=== PATIENT | female | born 1995 | race Caucasian/White ===

== ENCOUNTER 2024-09-18 12:43 | Outpatient (OUT) | payer BC, SELFPAY ==
--- OUTSIDE RECORDS SUMMARY | 2024-09-18 12:48 | XMS_ITS | Encounter Summary ---
Author Organization [facility] Address [address] [place] [address] Phone Care Team Providers Care Forensic Artist Name Role Phone Kami Olvera MD Primary Care Provider [phone] Encounter Details Date Type Department Care Team (Late st Contact Info) Description 11/28/2021 Orders Only [facility] [address] [place] [address] Conversion, Onbase Social History Tobacco Use Types Packs/Day Years Used Date Smoking Tobacco: Never Assessed Comments Unknown Sex and Gender Information Value Date Recorded Sex Assigned at Not on file Legal Sex Female 6:57 PM EST Gender Identity Not on file Sexual Orientation Not on file documented as of this encounter Plan of Treatment Scheduled Orders Name Type Priority Associated Diagnoses Orde r Schedule OUTSIDE LAB SCAN Lab Ordered: 11/28/2021 documented as of this encounter Visit Diagnoses Not on filedocumented in this encounter Care Teams Forensic Artist Relationship Specialty Start Date End Date Kami Olvera MD [address] [place] [address] PCP - General 03/20/99 documented as of this encounter
--- OUTSIDE RECORDS SUMMARY | 2024-09-18 12:48 | XMS_ITS | Clinical Summary ---
Author Organization [facility] Address [address] [place] [address] Phone Care Team Providers Care Asian Art Curator Name Role Phone Kami Olvera MD Primary Care Provider [phone] Social History Tobacco Use Types Packs/Day Years Used Date Smoking Tobacco: Never Assessed Comments Unknown Sex and Gender Information Value Date Recorded Sex Assigned at Not on file Legal Sex Female 6:57 PM EST Gender Identity Not on file Sexual Orientation Not on file Last Filed Vital Signs Vital Sign Reading Time Taken Comments Blood Pressure 110/70 08/26/2021 12:57 PM EDT Pulse 97 08/26/2021 12:56 PM EDT Temperature - - Respiratory Rate - - Oxygen Saturation - - Inhaled Oxygen Concentration - - Weight 69.9 kg (154 lb) 08/26/2021 12:56 PM EDT Height 170.2 cm (5' 7 ) 08/26/2021 12:56 PM EDT Body Mass Index 24.12 08/26/2021 12:56 PM EDT Plan of Treatment Health Maintenance Due Date Last Done Comments HIV Screening 1994 Lipid Panel 1994 Yearly Adult Physical 1995 COVID-19 Vaccine (#1) 1999 MMR Vaccines (1 of 1 - Standard series) 01/03/2011 Varicella Vaccines (2 of 2 - 13+ 2-dose series) 01/03/2011 12/06/2010 HPV Vaccines (3 - Risk 3-dos e series) 07/10/2011 03/10/2011, 12/06/2010 Hepatitis C Screening 01/02/2012 Hepatitis B Vaccines (1 of 3 - 19+ 3-dose series) 2013 Pneumococcal Vaccine: Pediatrics and At-Risk Adult Patients (1 of 2 - PCV) 2013 Zoster Vaccines (1 of 2) 2013 12/06/2010 Cervical Cancer Screening 2015 HPV/Cotest 2015 Pap Smear 2015 DTaP/Tdap/Td Vaccines (1 - Tdap) 01/02/2016 Influenza Vaccine (Season Ended) 2024 Meningococcal Vaccine Completed 12/06/2010 HIB Vaccines Aged Out No longer eligi ble based on patient's age to complete this topic Hepatitis A Vaccines Aged Out No long er eligible based on patient's age to complete this topic IPV Vaccines Aged Out No longer eligi ble based on patient's age to complete this topic Rotavirus Vaccines Aged Out No longer eligible based on patient's age to complete this topic Care Teams Asian Art Curator Relationship Specialty Start Date End Date Kami Olvera MD [address] [place] [id number] PCP - General 03/20/99
--- OUTSIDE RECORDS SUMMARY | 2024-09-18 12:49 | XMS_ITS | Clinical Summary ---
Author Organization [facility] Address [address] [place] [id number] Care Team Providers Care Aviation Ordnance Officer Name Role Phone Unavailable Primary Care Provider Unavailabl e Medications No known medications Active Problems No known active problems Social History Tobacco Use Types Packs/Day Years Used Date Smoking Tobacco: Never Assessed Comments Unknown Sex and Gender Information Value Date Recorded Sex Assigned at Not on file Legal Sex Female 10:06 AM EDT Gender Identity Not on file Sexual Orientation Not on file Plan of Treatment Health Maintenance Due Date Last Done Comments HEPATITIS C VIRUS SCREENING 1994 TETANUS 1994 HIV SCREENING DISCUSSION 2009 HEP B VACCINE (1 of 3 - 19+ 3-dose series) 2013 TDAP (ADULT) 2013 CERVICAL CANCER SCREENING DISCUSSION 2015 COVID-19 VACCINE (2023-2 5 season) 2023 INFLUENZA VACCINE (#1) 2024 HPV VACCINE Aged Out No longer eligi ble based on patient's age to complete this topic PNEUMOCOCCAL VACCINE SERIES Aged Out No longer eligible based on patient's age to complete this topic Insurance MMO
--- OUTSIDE RECORDS SUMMARY | 2024-09-18 12:49 | XMS_ITS | Clinical Summary ---
Author Organization [facility] Address [address] [place] [address] Care Team Providers Care Pond Worker Name Role Phone Devonte Kemp DO Primary Care Provider [phone] Allergies Active Allergy Reactions Criticality Noted Date Comments Diphenhydramine Hcl Unknown 10/31/2015 Medications topiramate (TOPAMAX) 100 MG tablet Take 100 mg by mouth 3 (three) times a day. Active BRINTELLIX 20 mg tablet Take 20 mg by mouth every morning. 2 08/13/2015 Active REXULTI 2 mg Tab Take 1 tablet by mouth every morning. 08/28/2015 Active modafinil (PROVIGIL) 200 MG tablet Take 200 mg by mouth every morning. 1 09/07/2015 Active Active Problems Problem Noted Date Diagnosed Date Conversion disorder with attacks or seizures Assessment & Plan (11/04/2015 2:55 PM EDT): Rule Out -Discussed mind/body connection at length which patient is somewhat open to. -Patient does endorse current stress and a trauma hx which places the patient at higher risk for conversion. -Strongly recommend continued outpatient counseling to develop positive coping skills. -Education and reassurance provided to patient and family Unspecified abnormal involuntary movements 10/31 Intractable migraine with status migrainosus Acute encephalopathy 11/01/2015 Major depressive disorder without psychotic feat ures 11/01/2015 Assessment & Plan (11/03/2015 1:50 PM EDT): By history -Denies current symptoms of depression including appetite/sleep disturbance, sadness, decreased motivation or suicidal ideation. -Patient has reported her medication inconsistently making treating her a challenge. -Has an outpatient psychiatrist, Dr. Rosales with whom she is already established. She should follow up as scheduled. -Came in on Duloxetine and Vortioxetine. These two medications should be avoided as the combination may increase risk of Serotonin Syndrome, SIADH, hyponatremia. Will DC Duloxetine at this time. Acute respiratory failure 10/31/2015 Family History Medical History Relation Comments Bipolar disorder Father Relation Status Comments Father Social History Tobacco Use Types Packs/Day Years Used Date Smoking Tobacco: Never Alcohol Use Standard Drinks/Week Comments No 0 (1 standard drink = 0.6 oz pur e alcohol) Comments No Sex and Gender Information Value Date Recorded Sex Assigned at Not on file Legal Sex Female 3:22 PM EDT Gender Identity Not on file Sexual Orientation Not on file Last Filed Vital Signs Vital Sign Reading Time Taken Comments Blood Pressure 110/68 11/12/2015 12:14 PM EDT Pulse 85 11/12/2015 12:14 PM EDT Temperature 36.8 C (98.2 F) 11/12/2015 12:14 PM EDT Respiratory Rate 16 11/12/2015 2:30 PM EDT Oxygen Saturation 98% 11/12/2015 12:14 PM EDT Inhaled Oxygen Concentration - - Weight 79.8 kg (176 lb) 11/01/2015 3:59 AM EDT Height 170.2 cm (5' 7 ) 11/01/2015 3:59 AM EDT Body Mass Index 27.57 11/01/2015 3:59 AM EDT Plan of Treatment Health Maintenance Due Date Last Done Comments Tetanus: Every 10yrs 1994 Wellness Visit 1997 Depression Screening/Follow- Up (PHQ-2/9) 2006 HIV Screening 2009 Hepatitis C Screening 01/02/2012 Pap Smear 2015 COVID-19 Vaccine (2023-2 5 season) 2023 Cervical Cancer Screening 01/02/2024 HPV/Cotest 01/02/2024 Influenza Vaccine (#1) 2024 Pneumococcal Vaccine: Ped or At-Risk Aged Out No longer eligible b ased on patient's age to complete this topic Insurance [employer] P[employer] Advance Directives For more information, please contact: [phone] * Full Code - Unverified (Latest Code Status on File) Date Activated Date Inactivated Comments 10/31/2015 5:36 PM 11/12/2015 7:47 PM Care Teams Pond Worker Relationship Specialty Start Date End Date Devonte Kemp DO PCP - General Endocrinology/Metabolism 10/19/15
--- OUTSIDE RECORDS SUMMARY | 2024-09-18 12:49 | XMS_ITS | Encounter Summary ---
Author Organization [facility] Address [address] [place] [address] Phone Care Team Providers Care Rewinder Operator Helper Name Role Phone Kami Olvera MD Primary Care Provider [phone] Encounter Details Date Type Department Care Team (Late st Contact Info) Description 08/23/2021 Orders Only [facility] [address] [place] [address] Conversion, Onbase Social History Tobacco Use Types Packs/Day Years Used Date Smoking Tobacco: Never Assessed Comments Unknown Sex and Gender Information Value Date Recorded Sex Assigned at Not on file Legal Sex Female 6:57 PM EST Gender Identity Not on file Sexual Orientation Not on file documented as of this encounter Functional Status * Little interest or pleasure in doing things Answer Date of Assessment Author Not at all 08/26/2021 12:56 PM EDT Conversi on, [employer] documented as of this encounter Plan of Treatment Scheduled Orders Name Type Priority Associated Diagnoses Orde r Schedule OUTSIDE LAB SCAN Lab Ordered: 08/23/2021 documented as of this encounter Visit Diagnoses Not on filedocumented in this encounter Care Teams Rewinder Operator Helper Relationship Specialty Start Date End Date Kami Olvera MD [address] [place] [id number] PCP - General 03/20/99 documented as of this encounter
--- NOTE | 2024-09-18 13:00 | ECG_ITS ---
[facility] Test Date: 2024-09-18 Pat Name: SHIV SABILLON Department: Room: - Gender: Female Insurance Marketing Rep: : [id number] Requested By: BHAVNA YADAV Order Number: [id number] Amina MD: ROBERTA MONTALVO M.D. Measurements Intervals [place] Rate: 99 P: 71 OR: 170 QRS: 74 QRSD: 92 T: 51 QT: 354 QTc: 455 Interpretive Statements SINUS RHYTHM Normal ECG No previous ECG available for comparison Electronically Signed On 09-19-2024 18:22:05 EDT by ROBERTA MONTALVO M.D.
[2024-09-18 13:37] LABS: Hematocrit 36.9 % (36.0-48.0); Hemoglobin 12.9 g/dL (12.0-16.0); Immature Granulocytes Abs Auto 0.01 10^3/uL (0.00-0.03); Immature Granulocytes Pct Auto 0.1 % (0.0-0.5); Lymphocytes Absolute Auto 3.5 10^3/uL (1.2-3.8); Mean Corpuscular HGB Conc 35.0 g/dL (29.9-35.2); Mean Corpuscular Hemoglobin 28.9 pg (26.7-34.0); Mean Corpuscular Volume 82.7 fL (81.0-99.0); Platelet Count 267 10^3/uL (150-450); Red Blood Count 4.46 10^6/uL (4.20-5.40); White Blood Count 7.5 10^3/uL (4.0-11.0)
[2024-09-18 13:55] LABS: Anion Gap 16.5; Blood Urea Nitrogen 12.0 mg/dL (7.0-18.0); Calcium 8.7 mg/dL (8.5-10.1); Carbon Dioxide 26.8 mmol/L (21.0-32.0); Chloride 105 mmol/L (98-107); Estimated GFR (African America >60 (>=60 mL/min/1.73m^2); Estimated GFR (Non-African Ame >60 (>=60 mL/min/1.73m^2); Glucose 89 mg/dL (74-106); Potassium 3.3 mmol/L (3.5-5.1); Sodium 145 mmol/L (136-145)
== END 2024-09-18 12:44 | disposition home or self-care (01) ==
DX: Z01.812 Encounter for preprocedural laboratory examination (principal); Z01.818 Encounter for other preprocedural examination
CPT/HCPCS: 36415; 80048; 85025; 93005

== ENCOUNTER 2024-11-16 08:50 | Emergency (ER) | payer BC, SELFPAY ==
--- OUTSIDE RECORDS SUMMARY | 2024-11-13 16:02 | XMS_ITS | Continuity of Care Document ---
Author Organization [facility] Address Unknown Care Team Providers Care Talent Consultant Name Role Phone STEFANY SAM Primary Care Physician Encounter [facility] [id number] Date(s): 11/13/24 - 11/13/[address] [address] Encounter Diagnosis Abdominal pain(Discharge Diagnosis) - 11/13/24 Nausea(Discharge Diagnosis) - 11/13/24 Diarrhea(Discharge Diagnosis) - 11/13/24 Discharge Disposition: Home (Routine DC) Attending Physician: Dee Hall M.D. Encounter Type: Emergency Allergies, Adverse Reactions, Alerts Substance Criticality Severity Reaction Reaction Severity Status Benadryl Rash Active Assessment and Plan Extracted from: Title:ED Note Author:Rudy DE LA GARZA Student, Zhanna Simmons Date:11/13/24 Abdominal pain (R10.9: Unspecified abdominal pain) Diarrhea (R19.7: Diarrhea, unspecified) Nausea (R11.0: Nausea) Orders: Al hydroxide/Mg hydroxide/simethicone, 30 mL, Susp-Oral, Oral, Once, Stop date 11/13/24 14:46:00 EDT, STAT, Start date 11/13/24 14:46:00 EDT atropine/hyoscyamine/PB/scopolamine, 10 mL, Elixir, Oral, Once, Stop date 11/13/24 14:46:00 EDT, STAT, Start date 11/13/24 14:46:00 EDT dicyclomine, 10 mg = 1 cap(s), Oral, QID, X 10 day(s), # 40 cap(s), Refills(s) 0, Pharmacy: [facility]/pharmacy #[id number], 170, cm, 11/13/24 9:39:00 EDT, Height/Length Dosing, 62, kg, 11/13/24 9:39:00 EDT, Weight Dosing dicyclomine, 20 mg = 2 mL, Injection, IntraMuscular, Once, Stop date 11/13/24 13:43:00 EDT, STAT, Start date 11/13/24 13:43:00 EDT, 11/13/24 13:43:00 EDT fentanyl, 50 microgram = 1 mL, Injection, IV, Once, Stop date 11/13/24 15:28:00 EDT, STAT, Start date 11/13/24 15:28:00 EDT, 11/13/24 15:28:00 EDT fentanyl, 50 microgram = 1 mL, Injection, IV, Once, Stop date 11/13/24 13:42:00 EDT, STAT, Start date 11/13/24 13:42:00 EDT, 11/13/24 13:42:00 EDT fentanyl, 50 microgram = 1 mL, Injection, IV, Once, Stop date 11/13/24 12:23:00 EDT, STAT, Start date 11/13/24 12:23:00 EDT, 11/13/24 12:23:00 EDT HYDROmorphone, 1 mg = 1 mL, Injection, IV Push, Once, Stop date 11/13/24 11:43:00 EDT, STAT, Start date 11/13/24 11:43:00 EDT, 11/13/24 11:43:00 EDT HYDROmorphone, 0.5 mg = 0.5 mL, Injection, IV Push, Once, Stop date 11/13/24 10:59:00 EDT, STAT, Start date 11/13/24 10:59:00 EDT, 11/13/24 10:59:00 EDT lidocaine topical, 200 mg, 10 mL, Soln-Oral, Oral, Once, Stop date 11/13/24 14:46:00 EDT, STAT, Start date 11/13/24 14:46:00 EDT loperamide, 2 mg = 1 tab(s), Oral, q4hr, PRN for loose stool, X 7 day(s), # 12 tab(s), Refills(s) 0, Pharmacy: [facility]/pharmacy #[id number], 170, cm, 11/13/24 9:39:00 EDT, Height/Length Dosing, 62, kg, 11/13/24 9:39:00 EDT, Weight Dosing ondansetron, 4 mg = 2 mL, Injection, IV Push, Once, Stop date 11/13/24 15:28:00 EDT, STAT, Start date 11/13/24 15:28:00 EDT, 11/13/24 15:28:00 EDT ondansetron, 4 mg = 1 tab(s), Oral, q8hr, PRN Nausea/Vomiting, # 30 tab(s), Refills(s) 0, Pharmacy: [facility]/pharmacy #[id number], 170, cm, 11/13/24 9:39:00 EDT, Height/Length Dosing, 62, kg, 11/13/24 9:39:00 EDT, Weight Dosing ondansetron, 4 mg = 2 mL, Injection, IV Push, Once, Stop date 11/13/24 10:59:00 EDT, STAT, Start date 11/13/24 10:59:00 EDT, 11/13/24 10:59:00 EDT Sodium Chloride 0.9% intravenous solution, 1,000 mL, Soln-IV, IV, Once, Stop date 11/13/24 10:00:00 EDT, STAT, Start date 11/13/24 10:00:00 EDT, Infuse over 61, minute(s) Basic Metabolic Panel CBC w/ Auto Diff CT Abdomen/Pelvis w/ Contrast eGFR Hepatic Function Panel Lipase Level Saline Lock Insert U Beta Hcg Qual UA with Cult Rflx Medications Bentyl 10 mg Cap 10 mg = 1 cap(s), Oral, QID, X 10 day(s), # 40 cap(s), Refills(s) 0, Pharmacy: [facility]/pharmacy #[id number], 170, cm, 11/13/24 9:39:00 EDT, Height/Length Dosing, 62, kg, 11/13/24 9:39:00 EDT, Weight Dosing Start Date: 11/13/24 Stop Date: 11/23/24 Status: Ordered Quantity: 40.0 Unit: cap(s) Repeat number: 1 Immodium A-D 2 mg Tab 2 mg = 1 tab(s), Oral, q4hr, PRN for loose stool, X 7 day(s), # 12 tab(s), Refills(s) 0, Pharmacy: [facility]/pharmacy #[id number], 170, cm, 11/13/24 9:39:00 EDT, Height/Length Dosing, 62, kg, 11/13/24 9:39:00 EDT, Weight Dosing Start Date: 11/13/24 Stop Date: 11/20/24 Status: Ordered Quantity: 12.0 Unit: tab(s) Repeat number: 1 lidocaine Top 2% Gel 5 mL 0.1 gm, 5 mL, Topical, TID, 45 mL, Refill(s) 0, [facility]/pharmacy #[id number], 170.2, cm, 08/10/21 19:28:00 EDT, Height/Length Dosing, 68.5, kg, 08/10/21 19:28:00 EDT, Weight Dosing Start Date: 08/10/21 Stop Date: 08/13/21 Status: Ordered Quantity: 45.0 Unit: mL Repeat number: 1 Zofran ODT 4 mg Tab-Dis 4 mg = 1 tab(s), Oral, q8hr, # 10 tab(s), Refills(s) 0, Pharmacy: [facility]/pharmacy #[id number], 170, cm, 05/08/21 8:44:00 EST, Height/Length Dosing, 70, kg, 05/08/21 8:44:00 EST, Weight Dosing Start Date: 05/08/21 Status: Ordered Quantity: 10.0 Unit: tab(s) Repeat number: 1 Zofran ODT 4 mg Tab-Dis 4 mg = 1 tab(s), Oral, q8hr, PRN Nausea/Vomiting, # 30 tab(s), Refills(s) 0, Pharmacy: [facility]/pharmacy#[id number], 170, cm, 11/13/24 9:39:00 EDT, Height/Length Dosing, 62, kg, 11/13/24 9:39:00 EDT, Weight Dosing Start Date: 11/13/24 Status: Ordered Quantity: 30.0 Unit: tab(s) Repeat number: 1 Zofran ODT 4 mg Tab-Dis 4 mg = 1 tab(s), Oral, q8hr, # 10 tab(s), Refills(s) 0, Pharmacy: [facility]/pharmacy #[id number], 170, cm, 05/15/21 15:15:00 EST, Height/Length Dosing, 73, kg, 05/15/21 15:15:00 EST, Weight Dosing Start Date: 05/15/21 Status: Ordered Quantity: 10.0 Unit: tab(s) Repeat number: 1 Results Laboratory List Name Date U Beta Hcg Qual (Beta hCG Ql Urine) 11/13 Basic Metabolic Panel (BMP) 11/13/24 CBC w/ Auto Diff 11/13/24 Hepatic Function Panel 11/13/24 Lipase Level 11/13/24 UA with Cult Rflx 11/13/24 eGFR 11/13/24 Most recent to oldest [Reference Range]: 1 UA Bili [Negative mg/dL] Negative mg/dL (11/13/24 10:59 AM) UA Color [Yellow] Yellow 1 (11/13/24 10:59 AM) UA Glucose [Negative mg/dL] Negative mg/ dL (11/13/24 10:59 AM) UA Ketones [Negative mg/dL] 2+ mg/dL *ABN* (11/13/24 10:59 AM) UA Leuk Est [Negative Tino/uL] Negative L eu/uL (11/13/24 10:59 AM) UA Mucous [Negative graded/LPF] 4+ grade d/LPF *ABN* (11/13/24 10:59 AM) UA Nitrite [Negative mg/dL] Negative mg/ dL (11/13/24 10:59 AM) UA Protein [Negative mg/dL] Trace mg/dL *ABN* (11/13/24 10:59 AM) UA RBC [0-3 graded/HPF] 4-20 graded/HPF *ABN* (11/13/24 10:59 AM) UA Squam Epithelial 0-2 graded/HPF *NA* (11/13/24 10:59 AM) UA Urobilinogen [Negative mg/dL] Negativ e mg/dL (11/13/24 10:59 AM) UA WBC [0-5 graded/HPF] 0-5 graded/HPF (11/13/24 10:59 AM) UA Spec Desc Clean Catch (11/13/24 10:59 AM) UA Blood [Negative mg/dL] 1+ mg/dL *ABN* (11/13/24 10:59 AM) UA Clarity [Clear] Clear (11/13/24 10:59 AM) A/G Ratio [1.1-2.2] 1.9 (11/13/24 10:59 AM) BUN/Creat Ratio [10-20] 20 (11/13/24 10:59 AM) AGAP [6-16 mEq/L] 13 mEq/L (11/13/24 10:59 AM) Albumin Lvl [3.3-5.0 gm/dL] 5.0 gm/dL (11/13/24 10:59 AM) Alk Phos [21-98 Int._Unit/L] 67 Int._Uni t/L (11/13/24 10:59 AM) ALT [6-46 Int._Unit/L] 8 Int._Unit/L (11/13/24 10:59 AM) AST [5-43 Int._Unit/L] 14 Int._Unit/L (11/13/24 10:59 AM) Basophil Auto [0.0-2.0 %] 0.4 % (11/13/24 10:59 AM) Bili Direct [0.0-0.4 mg/dL] 0.1 mg/dL (11/13/24 10:59 AM) Bili Total [0.0-1.1 mg/dL] 0.7 mg/dL (11/13/24 10:59 AM) CO2 [21-31 mmol/L] 25 mmol/L (11/13/24 10:59 AM) Eos Auto [0.0-8.0 %] 0.1 % (11/13/24 10:59 AM) Glucose Lvl [55-199 mg/dL] 91 mg/dL (11/13/24 10:59 AM) Hct [34.0-46.0 %] 42.0 % (11/13/24 10:59 AM) Hgb [12.0-16.0 gm/dL] 14.4 gm/dL (11/13/24 10:59 AM) Lipase Lvl [13-58 unit/L] 19 unit/L (11/13/24 10:59 AM) Lymph Auto [14.0-50.0 %] 22.2 % (11/13/24 10:59 AM) RBC [4.3-5.9 E12/L] 5.2 E12/L (11/13/24 10:59 AM) RDW [10.9-14.2 %] 12.7 % (11/13/24 10:59 AM) Sodium Lvl [135-145 mmol/L] 140 mmol/L (11/13/24 10:59 AM) Total Protein [6.0-7.8 gm/dL] 7.7 gm/dL (11/13/24 10:59 AM) MCH [27.0-34.0 pg] 27.9 pg (11/13/24 10:59 AM) MCHC [31.4-36.0 gm/dL] 34.2 gm/dL (11/13/24 10:59 AM) MCV [80.0-100.0 fL] 81.7 fL (11/13/24 10:59 AM) [place] Auto [4.0-14.0 %] 5.6 % (11/13/24 10:59 AM) MPV [6.4-10.8 fL] 8.3 fL (11/13/24 10:59 AM) Neutro Auto [36.0-75.0 %] 71.7 % (11/13/24 10:59 AM) UA pH [5.0-9.0] 5.5 *NA* (11/13/24 10:59 AM) BUN [5-21 mg/dL] 14 mg/dL (11/13/24 10:59 AM) Calcium Lvl [8.9-11.1 mg/dL] 9.4 mg/dL (11/13/24 10:59 AM) Platelet [150.0-500.0 E9/L] 223.0 E9/L (11/13/24 10:59 AM) Potassium Lvl [3.5-5.3 mmol/L] 3.8 mmol/ L (11/13/24 10:59 AM) UA Spec Grav [1.005-1.030] 1.035 *NA* (11/13/24 10:59 AM) WBC [4.0-11.0 E9/L] 8.5 E9/L (11/13/24 10:59 AM) Chloride [101-111 mmol/L] 106 mmol/L (11/13/24 10:59 AM) Bili Indirect [0.1-0.9 mg/dL] 0.6 mg/dL (11/13/24 10:59 AM) [place] Absolute [0.2-1.0 E9/L] 0.5 E9/L (11/13/24 10:59 AM) Eos Absolute [0.0-0.5 E9/L] 0.0 E9/L (11/13/24 10:59 AM) Basophil Absolute [0.0-0.2 E9/L] 0.0 E9/ L (11/13/24 10:59 AM) Neutro Absolute [2.0-7.5 E9/L] 6.1 E9/L (11/13/24 10:59 AM) Lymph Absolute [1.0-4.0 E9/L] 1.9 E9/L (11/13/24 10:59 AM) eGFR [>=59 mL/min/1.73 m2] 119 mL/min/1. 73 m2 (11/13/24 10:59 AM) Globulin [1.4-4.0 gm/dL] 2.7 gm/dL (11/13/24 10:59 AM) Creatinine [0.5-1.3 mg/dL] 0.7 mg/dL (11/13/24 10:59 AM) U beta hCG Ql Negative (11/13/24 11:00 AM) 1Interpretive Data: Microscopic readings are only performed on those samples that meet specific criteria set forth by [facility]. Social History Social History Type Response Smoking Status Never (less than 100 in lifetime) entered on: 06/25/21 Sex Female Sex Representation Female (finding) 1pt denies Hospital Discharge Instructions Patient Education 11/13/2024 16:02:16 Diarrhea, Adult Diarrhea, Adult Diarrhea is frequent loose and sometimes watery bowel movements. Diarrhea can make you feel weak and cause you to become dehydrated. Dehydration is a condition in which there is not enough water or other fluids in the body. Dehydration can make you tired and thirsty, cause you to have a dry mouth, and decrease how often you urinate. Diarrhea typically lasts 2???3 days. However, it can last longer if it is a sign of something more serious. It is important to treat your diarrhea as told by your health care provider. Follow these instructions at home: Eating and drinking Follow these recommendations as told by your health care provider: ??? Take an oral rehydration solution (ORS). This is an emuq-emc-ufwdmca medicine that helps returnyour body to its normal balance of nutrients and water. It is found at pharmacies and retail stores. ??? Drink enough fluid to keep your urine pale yellow. ??? Drink fluids such as water, diluted fruit juice, and low-calorie sports drinks. You can drink milk also, if desired. Sucking on ice chips is another way to get fluids. ??? Avoid drinking fluids that contain a lot of sugar or caffeine, such as soda, energy drinks, andregular sports drinks. ??? Avoid alcohol. ??? Eat bland, zkjx-us-eggemp foods in small amounts as you are able. These foods include bananas, applesauce, rice, lean meats, toast, and crackers. ??? Avoid spicy or fatty foods. Medicines ??? Take tpzh-dek-iofpqqn and prescription medicines only as told by your health care provider. ??? If you were prescribed antibiotics, take them as told by your health care provider. Do not stopusing the antibiotic even if you start to feel better. General instructions ??? Wash your hands often using soap and water for at least 20 seconds. If soap and water are not available, use hand supervisor billposting. Others in the household should wash their hands as well. Hands should be washed: ??? After using the toilet or changing a diaper. ??? Before preparing, cooking, or serving food. ??? While caring for a sick person or while visiting someone in a hospital. ??? Rest at home while you recover. ??? Take a warm bath to relieve any burning or pain from frequent diarrhea episodes. ??? Watch your condition for any changes. Contact a health care provider if: ??? You have a fever. ??? Your diarrhea gets worse. ??? You have new symptoms. ??? You vomit every time you eat or drink. ??? You feel light-headed, dizzy, or have a headache. ??? You have muscle cramps. ??? You have signs of dehydration, such as: ??? Dark urine, very little urine, or no urine. ??? Cracked lips. ??? Dry mouth. ??? Sunken eyes. ??? Sleepiness. ??? Weakness. ??? You have bloody or black stools or stools that look like tar. ??? You have severe pain, cramping, or bloating in your abdomen. ??? Your skin feels cold and clammy. ??? You feel confused. Get help right away if: ??? You have chest pain or your heart is beating very quickly. ??? You have trouble breathing or you are breathing very quickly. ??? You feel extremely weak or you faint. These symptoms may be an emergency. Get help right away. Call 911. ??? Do not wait to see if the symptoms will go away. ??? Do not drive yourself to the hospital. This information is not intended to replace advice given to you by your health care provider. Make sure you discuss any questions you have with your health care provider. Document Revised: 08/23/2022 Document Reviewed: 08/23/2022 [employer] Patient Education ?? 2023 [employer]. 11/13/2024 16:02:16 Pain Without a Known Cause Pain Without a Known Cause Pain can occur in any part of the body and can range from mild to severe. Sometimes no cause can befound for pain. Some common types of pain that can occur without a known cause include: ??? Headache. ??? Back pain. ??? Abdominal pain. ??? Neck pain. Your health care provider may do tests to try to find the cause of your pain. If no cause is found,your health care provider will treat you for pain without a known cause. In some cases, your health care provider may do more tests, repeat tests that have already been done, and look further for a possible cause. Follow these instructions at home: Medicines ??? Take pukz-rsy-iuivmyt and prescription medicines only as told by your health care provider. ??? Ask your health care provider if the medicine prescribed to you: ??? Requires you to avoid driving or using machinery. ??? Can cause constipation. You may need to take these actions to prevent or treat constipation: ??? Drink enough fluid to keep your urine pale yellow. ??? Take yptc-imr-kyvqzex or prescription medicines. ??? Eat foods that are high in fiber, such as beans, whole grains, and fresh fruits and vegetables. ??? Limit foods that are high in fat and processed sugars, such as fried and sweet foods. Managing pain, stiffness, and swelling ??? If directed, put ice on the painful area. To do this: ??? Put ice in a plastic bag. ??? Place a towel between your skin and the bag. ??? Leave the ice on for 20 minutes, 2???3 times a day. ??? Remove the ice if your skin turns bright red. This is very important. If you cannot feel pain, heat, or cold, you have a greater risk of damage to the area. ??? If directed, apply heat to the affected area. Use the heat source that your health care provider recommends, such as a moist heat pack or a heating pad. ??? Place a towel between your skin and the heat source. ??? Leave the heat on for 20???30 minutes. ??? Remove the heat if your skin turns bright red. This is especially important if you are unable to feel pain, heat, or cold. You may have a greater risk of getting burned. General instructions ??? Stop any activities that cause pain. Rest as told by your health care provider during periods of severe pain. ??? Return to your normal activities as told by your health care provider. Ask your health care provider what activities are safe for you. ??? Exercise regularly. ??? Reduce your stress with activities such as yoga or meditation. Talk with your health care provider about other ways to reduce stress. ??? Eat a balanced diet that includes fruits and vegetables, whole grains, lean meat, and low-fat dairy. Talk with your health care provider if you have any questions about your diet. Contact a health care provider if: ??? You have continuing pain, and no reason can be found for it. ??? Your symptoms do not get better after treatment. Get help right away if: ??? Your pain is making you want to harm yourself. Get help right away if you feel like you may hurt yourself or others, or have thoughts about takingyour own life. Go to your nearest emergency room or: ??? Call 911. ??? Call the National Suicide Prevention Lifeline at or 926. This is open 24 hours aday. ??? Text the Crisis Text Line at 624378. Summary ??? Pain can occur in any part of the body and can range from mild to severe. ??? Your health care provider may do tests to try to find the cause of your pain. If no cause is found, your health care provider may diagnose you with pain without a known cause. ??? To help your pain, take medicines as told by your health care provider, apply ice or heat, exercise, reduce stress, and eat a healthy diet. This information is not intended to replace advice given to you by your health care provider. Make sure you discuss any questions you have with your health care provider. Document Revised: 11/03/2021 Document Reviewed: 11/03/2021 [employer] Patient Education ?? 2023 [employer]. 11/13/2024 16:02:16 Abdominal Pain, Adult, Coiv-yg-Papx Abdominal Pain, Adult Many things can cause belly (abdominal) pain. In most cases, belly pain is not a serious problem and can be watched and treated at home. But in some cases, it can be serious. Your doctor will try to find the cause of your belly pain. Follow these instructions at home: Medicines ??? Take iegu-xwq-ijiktmt and prescription medicines only as told by your doctor. ??? Do not take medicines that help you poop (laxatives) unless told by your doctor. General instructions ??? Watch your belly pain for any changes. Tell your doctor if the pain gets worse. ??? Drink enough fluid to keep your pee (urine) pale yellow. Contact a doctor if: ??? Your belly pain changes or gets worse. ??? You have very bad cramping or bloating in your belly. ??? You vomit. ??? Your pain gets worse with meals, after eating, or with certain foods. ??? You have trouble pooping or have watery poop for more than 2???3 days. ??? You are not hungry, or you lose weight without trying. ??? You have signs of not getting enough fluid or water (dehydration). These may include: ??? Dark pee, very little pee, or no pee. ??? Cracked lips or dry mouth. ??? Feeling sleepy or weak. ??? You have pain when you pee or poop. ??? Your belly pain wakes you up at night. ??? You have blood in your pee. ??? You have a fever. Get help right away if: ??? You cannot stop vomiting. ??? Your pain is only in one part of your belly, like on the right side. ??? You have bloody or black poop, or poop that looks like tar. ??? You have trouble breathing. ??? You have chest pain. These symptoms may be an emergency. Get help right away. Call 911. ??? Do not wait to see if the symptoms will go away. ??? Do not drive yourself to the hospital. This information is not intended to replace advice given to you by your health care provider. Make sure you discuss any questions you have with your health care provider. Document Revised: 12/21/2022 Document Reviewed: 12/21/2022 [employer] Patient Education ?? 2023 [employer]. Follow Up Care 11/13/2024 09:07:53 With:STEFANY SAM Address: [address] [place] [address], [address] [address] Business (1) When:11/16/2024 15:30:58 Comments:Call Dr for diagnosis based follow up Physician Emergency department Note * Chauncey Fuentes PA-C: MODIFY Yudith Cisneros: MODIFY, MODIFY Yudith Cisneros: MODIFY, PERFORM Yudith Cisneros: PERFORM, MODIFY Yudith Cisneros: MODIFY Event Display: ED Note-Physician Authored Date: [id number] Basic Information Time Seen: Chuancey Fuentes PA-C ??11/13/2024 09:33 Chief Complaint pt states diarrhea and abd pain x 3 days. has taken meds to stop the diarrhea but not getting better. has a hx of cancer that she has been in remission from but recently found a tumor in her neck 2 weeks ago. hodgkins lymphoma ws the past cancer. History of Present Illness A 29 yo female presents to the ED with diarrhea and abd pain x 3 days. PMH significant for Hodgkin's lymphoma and??pancreatitis. Surgical history significant for cholecystectomy and multiple other GI surgeries which she reported resulted in her having a PEG around 2019 and 6 stents placed in her GI tract.??She reports that she has not had any??GI issues for 2-3 years.??The patient had a??tumor found in her neck 2 weeks ago and she is set to??start treatments for that next week.??She reports that the abdominal pain and diarrhea started abruptly 3 days ago and has been getting worse since. She reports 8-9 episodes of diarrhea??a day.??The pain is located in the epigastric region and does not radiate, and the patient described it as stabbing . She also noted that the diarrhea has been getting darker in color, and is now a very dark brown . She denies??hematochezia or melena.??The patient??has also been having extreme sweats and some chills, but denies fevers. She has also??had some an orexia and weakness, but that has been chronic since her chemotherapy.??She has hydromorphone for chronic leg pain caused by her chemotherapy, however she has not used that or other pain medication for her stomach pain. She tried loperamide for the diarrhea, but stopped??taking it after two uses since it did not help.??LMP was 2 weeks ago and uncomplicated.??She denies being sexually active.??Sheis not on blood thinners.??The patient denies recent illness, sick contacts or travel. The patient also denies recent food??or medication changes??and drug/ alcohol use.??The patient denies back pain, chest pain,??nausea, vomiting, urinary symptoms, and bloating. Review of Systems No other aggravating or relieving factors no other associated symptoms no other prior treatments orcomplaints. ?? Family: Reviewed and noncontributory Social: lives at home ?? Review of systems negative unless otherwise specified in the HPI. Physical Exam Vitals & Measurements T:??98.2?F(Oral)?? HR:??105(Peripheral)?? RR:??17?? BP:??145/95?? SpO2:??93%?? HT:??170??cm?? WT:??62??kg?? BMI:??21.45?? General:??alert,??no acute??distress. ??Afebrile Skin:??warm,??dry Head:??no??trauma,??normocephalic Neck: Trachea??midline,??no??tenderness, Eye:??normal??conjunctiva, sclera??clear ENMT: TM's??clear, oral mucosa??moist,??no??pharyngeal erythema or exudate Cardiovascular:??regular??rate and rhythm,??normal??peripheral perfusion Respiratory: Lungs??CTA, respirations??non labored Chest wall:??no??deformity. Gastrointestinal:??soft,??non distended,?moderate??non radiating epigastric??tenderness,?no??guarding. Surgical scar measuring 6 inches on her abdomen. BS normal. Back:?No?? tenderness,?Normal?ROM,?Normal?alignment. Extremities:??no??deformity,??no??trauma Neurological: oriented x 4, LOC appropriate for age, CN II-XII intact, motor strength equal & normal bilaterally, sensation equal & normal bilaterally, speech normal Psychiatric:??cooperative, affect??appropriate for age,??normal??judgement,??normal??psychiatric thoughts. Medical Decision Making A 29-year-old female with complex medical history including non-Hodgkin's lymphoma??and multiple??abdominal surgeries and pancreatitis reports??to the ED with concerns of abdominal pain nausea vomiting and diarrhea. ??Symptoms been on for last couple of days.?? Has not been able to keep things??down. ??Reports has flares like this before. ??Concern for possible pancreatitis. ??Exam does reveal diffuse abdominal tenderness. ??No real tenderness guarding noted. ??Due to concerns did do a full workup on the patient. ??Lab work reviewed noted. ??No acute changes seen with lab work. ??Urinalysis negative. ??We did CT the patient, but we did have to send her to the [facility] because our CT machine was down.?? The CT of her abdomen was negative for any acute findings. ??Patient was givenmultiple doses of pain medications, which ultimately did improve her symptoms.?? Discussed could be??other etiologies including gastritis. ??She was understanding. ??Will follow-up with GI doctor. ??Discussed return precautions.?? Follow-up with your primary care provider in 3 to 5 days. ??If symptoms worsen, do not improve, or new symptoms arise please report back to emergency department for further evaluation. ??The patient was understanding and agreeable to plan moving forward. ?? IChauncey PA-C had a [id number] interaction with the patient. I personally performed aphysical exam and medical decision making. I have verified the documentation by the student as accurately representing the information obtained. Assessment/Plan Abdominal pain??(R10.9: Unspecified abdominal pain) Diarrhea??(R19.7: Diarrhea, unspecified) Nausea??(R11.0: Nausea) Orders: Al hydroxide/Mg hydroxide/simethicone, 30 mL, Susp-Oral, Oral, Once, Stop date 11/13/24 14:46:00 EDT, STAT, Start date 11/13/24 14:46:00 EDT atropine/hyoscyamine/PB/scopolamine, 10 mL, Elixir, Oral, Once, Stop date 11/13/24 14:46:00 EDT, STAT, Start date 11/13/24 14:46:00 EDT dicyclomine, 10 mg = 1 cap(s), Oral, QID, X 10 day(s), # 40 cap(s), Refills(s) 0, Pharmacy: [facility]/pharmacy #[id number], 170, cm, 11/13/24 9:39:00 EDT, Height/Length Dosing, 62, kg, 11/13/24 9:39:00 EDT, Weight Dosing dicyclomine, 20 mg = 2 mL, Injection, IntraMuscular, Once, Stop date 11/13/24 13:43:00 EDT, STAT, Start date 11/13/24 13:43:00 EDT, 11/13/24 13:43:00 EDT fentanyl, 50 microgram = 1 mL, Injection, IV, Once, Stop date 11/13/24 15:28:00 EDT, STAT, Start date 11/13/24 15:28:00 EDT, 11/13/24 15:28:00 EDT fentanyl, 50 microgram = 1 mL, Injection, IV, Once, Stop date 11/13/24 13:42:00 EDT, STAT, Start date 11/13/24 13:42:00 EDT, 11/13/24 13:42:00 EDT fentanyl, 50 microgram = 1 mL, Injection, IV, Once, Stop date 11/13/24 12:23:00 EDT, STAT, Start date 11/13/24 12:23:00 EDT, 11/13/24 12:23:00 EDT HYDROmorphone, 1 mg = 1 mL, Injection, IV Push, Once, Stop date 11/13/24 11:43:00 EDT, STAT, Start date 11/13/24 11:43:00 EDT, 11/13/24 11:43:00 EDT HYDROmorphone, 0.5 mg = 0.5 mL, Injection, IV Push, Once, Stop date 11/13/24 10:59:00 EDT, STAT, Start date 11/13/24 10:59:00 EDT, 11/13/24 10:59:00 EDT lidocaine topical, 200 mg, 10 mL, Soln-Oral, Oral, Once, Stop date 11/13/24 14:46:00 EDT, STAT, Start date 11/13/24 14:46:00 EDT loperamide, 2 mg = 1 tab(s), Oral, q4hr, PRN for loose stool, X 7 day(s), # 12 tab(s), Refills(s) 0, Pharmacy: [facility]/pharmacy #[id number], 170, cm, 11/13/24 9:39:00 EDT, Height/Length Dosing, 62, kg, 11/13/24 9:39:00 EDT, Weight Dosing ondansetron, 4 mg = 2 mL, Injection, IV Push, Once, Stop date 11/13/24 15:28:00 EDT, STAT, Start date 11/13/24 15:28:00 EDT, 11/13/24 15:28:00 EDT ondansetron, 4 mg = 1 tab(s), Oral, q8hr, PRN Nausea/Vomiting, # 30 tab(s), Refills(s) 0, Pharmacy:[facility]/pharmacy #[id number], 170, cm, 11/13/24 9:39:00 EDT, Height/Length Dosing, 62, kg, 11/13/24 9:39:00 EDT, Weight Dosing ondansetron, 4 mg = 2 mL, Injection, IV Push, Once, Stop date 11/13/24 10:59:00 EDT, STAT, Start date 11/13/24 10:59:00 EDT, 11/13/24 10:59:00 EDT Sodium Chloride 0.9% intravenous solution, 1,000 mL, Soln-IV, IV, Once, Stop date 11/13/24 10:00:00EDT, STAT, Start date 11/13/24 10:00:00 EDT, Infuse over 61, minute(s) Basic Metabolic Panel CBC w/ Auto Diff CT Abdomen/Pelvis w/ Contrast eGFR Hepatic Function Panel Lipase Level Saline Lock Insert U Beta Hcg Qual UA with Cult Rflx Medications Administered Given Al hydroxide/Mg hydroxide/simethicone 200 mg-200 mg-20 mg/5 mL oral suspension, 30 mL, Oral Bentyl 10 mg/mL Injection, 20 mg, IntraMuscular Dilaudid 0.5 mg/0.5 mL injectable solution, 0.5 mg, IV Push Dilaudid 1 mg/mL injectable solution, 1 mg, IV Push Elixir, 10 mL, Oral fentanyl 50 mcg/mL injectable solution, 50 mcg, IV fentanyl 50 mcg/mL injectable solution, 50 mcg, IV fentanyl 50 mcg/mL injectable solution, 50 mcg, IV lidocaine Viscous Top 2% Donna, 200 mg, Oral NS 1000 ml Bolus, 1000 mL, IV Zofran 4 mg/2 mL Injection, 4 mg, IV Push Zofran 4 mg/2 mL Injection, 4 mg, IV Push Disposition Plan Patient Discharge Condition stable, improved Discharge Disposition to home Discharge Prescription List Prescriptions Bentyl 10 mg Cap, 10 mg= 1 cap(s), Oral, QID Immodium A-D 2 mg Tab, 2 mg= 1 tab(s), Oral, q4hr, PRN Zofran ODT 4 mg Tab-Dis, 4 mg= 1 tab(s), Oral, q8hr, PRN Follow-up With When Contact Information STEFANY SAM In 3 days 11/16/[address] EDT [address], [address] [place] [address]- [facility] (1) Additional Instructions: Call Dr for diagnosis based follow up Patient Education Diarrhea, Adult Pain Without a Known Cause Abdominal Pain, Adult, [id number] Attestation Patient seen and evaluated by the physician nurseryman assistant. Attending physician was present in the emergency department and supervised care. ? This visit was performed by both the physician and an APC. ??I performed all aspects of the MDM as documented. ?? This report was transcribed using voice recognition software. ??Every effort was made to ensure accuracy, however, inadvertently computerized retail leader mistakes may be present. ?? Appropriate healthcare PPE was used in evaluating this patient. ??The patient was placed in a mask.??The healthcare provider was wearing mask, gloves, and utilizing proper hand hygiene. ??All equipment was properly cleansed. ?? I performed a substantive part of the MDM during the patient??s E/M visit.?? I personally made or approved the documented management plan and acknowledge its risk of complications. (Independent Interpretation) My (EKG/X-Ray/US/CT as applicable) interpretation as above. (Discussion) Management/test interpretation discussed with APC. Problem List/Past Medical History Ongoing No qualifying data Historical No qualifying data Medications Inpatient No active inpatient medications Home lidocaine Top 2% Gel 5 mL, 0.1 gm= 5 mL, Topical, TID Zofran ODT 4 mg Tab-Dis, 4 mg= 1 tab(s), Oral, q8hr Zofran ODT 4 mg Tab-Dis, 4 mg= 1 tab(s), Oral, q8hr Allergies Benadryl??(Rash) Social History Alcohol - Denies Alcohol Use, 05/08/2021 Current, 06/25/2021 Substance Abuse - Denies Substance Abuse, 05/08/2021 Current, 06/25/2021 Tobacco - Denies Tobacco Use, 05/08/2021 Never (less than 100 in lifetime) Tobacco Use:., 06/25/2021 Lab Results WBC: 8.5 E9/L (11/13/24 10:59:00) RBC: 5.2 E12/L (11/13/24 10:59:00) HGB: 14.4 gm/dL (11/13/24 10:59:00) Hct: 42 % (11/13/24 10:59:00) MCV: 81.7 fL (11/13/24 10:59:00) MCH: 27.9 pg (11/13/24 10:59:00) MCHC: 34.2 gm/dL (11/13/24 10:59:00) RDW: 12.7 % (11/13/24 10:59:00) Platelet: 223 E9/L (11/13/24 10:59:00) MPV: 8.3 fL (11/13/24 10:59:00) Neutro Auto: 71.7 % (11/13/24 10:59:00) Lymph Auto: 22.2 % (11/13/24 10:59:00) [place] Auto: 5.6 % (11/13/24 10:59:00) Eos Auto: 0.1 % (11/13/24 10:59:00) Basophil Auto: 0.4 % (11/13/24 10:59:00) Neutro Absolute: 6.1 E9/L (11/13/24 10:59:00) Lymph Absolute: 1.9 E9/L (11/13/24 10:59:00) [place] Absolute: 0.5 E9/L (11/13/24 10:59:00) Eos Absolute: 0 E9/L (11/13/24 10:59:00) Basophil Absolute: 0 E9/L (11/13/24 10:59:00) Glucose Lvl: 91 mg/dL (11/13/24 10:59:00) BUN: 14 mg/dL (11/13/24 10:59:00) Creatinine: 0.7 mg/dL (11/13/24 10:59:00) eGFR: 119 mL/min/1.73 m2 (11/13/24 10:59:00) BUN/Creat Ratio: 20 (11/13/24 10:59:00) Sodium Lvl: 140 mmol/L (11/13/24 10:59:00) Potassium Lvl: 3.8 mmol/L (11/13/24 10:59:00) Chloride: 106 mmol/L (11/13/24 10:59:00) CO2: 25 mmol/L (11/13/24 10:59:00) AGAP: 13 mEq/L (11/13/24 10:59:00) Calcium Lvl: 9.4 mg/dL (11/13/24 10:59:00) Alk Phos: 67 Int._Unit/L (11/13/24 10:59:00) ALT: 8 Int._Unit/L (11/13/24 10:59:00) AST: 14 Int._Unit/L (11/13/24 10:59:00) Total Protein: 7.7 gm/dL (11/13/24 10:59:00) Albumin Lvl: 5 gm/dL (11/13/24 10:59:00) Globulin: 2.7 gm/dL (11/13/24 10:59:00) A/G Ratio: 1.9 (11/13/24 10:59:00) Bili Total: 0.7 mg/dL (11/13/24 10:59:00) Bili Direct: 0.1 mg/dL (11/13/24 10:59:00) Bili Indirect: 0.6 mg/dL (11/13/24 10:59:00) Lipase Lvl: 19 unit/L (11/13/24 10:59:00) UA Spec Desc: Clean Catch (11/13/24 10:59:00) UA Color: Yellow (11/13/24 10:59:00) UA Clarity: Clear (11/13/24 10:59:00) UA Spec Grav: 1.035 (11/13/24 10:59:00) UA pH: 5.5 (11/13/24 10:59:00) UA Protein: Trace Abnormal (11/13/24 10:59:00) UA Glucose: Negat (11/13/24 10:59:00) UA Ketones: 2+ Abnormal (11/13/24 10:59:00) UA Bili: Negat (11/13/24 10:59:00) UA ??Blood: 1+ Abnormal (11/13/24 10:59:00) UA Nitrite: Negat (11/13/24 10:59:00) UA Urobilinogen: Negat (11/13/24 10:59:00) UA Leuk Est: Negat (11/13/24 10:59:00) UA RBC: 4-20 Abnormal (11/13/24 10:59:00) UA Squam Epithelial: 0-2 (11/13/24 10:59:00) UA WBC: 0-5 (11/13/24 10:59:00) UA Mucous: 4+ Abnormal (11/13/24 10:59:00) U beta hCG Ql: Negative (11/13/24 11:00:00) Diagnostic Results CT Abdomen/Pelvis w/ Contrast ?? 11/13/24 13:48:05 IMPRESSION: This scan was done at [facility]. See powerchart notes for scanned in radiologist report ?? CLINICAL HISTORY: Pain ?? COMPARISON: NONE. ?? FINDINGS: ?? All CT scans at this facility use dose modulation, iterative reconstruction, and/or weight based dosing when appropriate to reduce radiation dose to as low as reasonably achievable. ?? Technical Comments: ?? GFR (mL/min/1/73m2) na Contrast: Isovue 300 Contrast amount in ml???s: 100.00 ?? Ordering Provider: Chauncey Fuentes ?? Signed By: Smooth Romero Electronically Signed By: Rudy Rice, Yudith Simmons Electronically Co-Signed By: Chauncey Fuentes PA-C Date and Time Co-Signed: 11/13/24 18:37 EDT Electronically Co-Signed By: Dee Hall M.D. Date and Time Co-Signed: 11/13/24 19:08 EDT Patient Care team information Care Team Personnel Name: STEFANY SAM DO Role: Primary Care Physician Address: [address] [facility], [address] Telecom: Care Team Related Persons Name: RON GARCIA Name: RON SABILLON Name: RON SABILLON Name: RY SABILLON Name: RY SABILLON Name: RY SABILLON Insurance Providers Guarantor name: SHIV PRATTINE RAMANDEEP Health Plan Information #: 1 Payer: Amita Payer Identifier: [id number] Member [id number] Group Number: [id number] Subscriber Identifier: [id number] Relationship to Subscriber: Self Coverage Type: NA Coverage Verification Date: 24 Telecom: Address: [facility] [address] [place] [address]
[2024-11-16 08:56] VITALS: BP 134/80; PULSE 66; TEMP 36.6; O2SAT 100; BMI 21.9
--- OUTSIDE RECORDS SUMMARY | 2024-11-16 08:57 | XMS_ITS | Encounter Summary ---
Author Organization [facility] Address [address] [place] [address] Care Team Providers Care Metaphysics Teacher Name Role Phone Kami Olvera MD Primary Care Provider [phone] Jazzy Dunn RN Unavailable [phone] David House MD Unavailable [phone] Odette Lopez PA-C Unavailable [phone] Rubens Singh MD Unavailable [phone] Source Comments In the event this information is protected by the Federal Confidentiality of Alcohol and Drug AbusePatient Records regulations: The Federal rules restrict any use of the information to criminally investigate or prosecute any alcohol or drug abuse patient.[facility] Encounter Details Date Type Department Care Team (Late st Contact Info) Description 08/24/2021 Get Medical Advice General Surgery [address] [place] [address] Barrera Whittington PA-C [address] [place] [address] Feeding Tube Leakage Social History Tobacco Use Types Packs/Day Years Used Date Smoking Tobacco: Never Smokeless Tobacco: Never Alcohol Use Standard Drinks/Week Comments Not Currently 0 (1 standard drink = 0.6 oz pur e alcohol) rarely Overall Financial Resource Strain (CARDIA) Answe r Date Recorded How hard is it for you to pa y for the very basics like food, housing, medical care, and heating? Not hard at all 04/26/2019 PHQ-2 Answer Date Recorded PHQ-2 score 2 06/10/2021 Hunger Vital Sign Answer Date Recorded Within the past 12 months, y ou worried that your food would run out before you got the money to buy more. Never true 04/26/19 20 Within the past 12 months, t he food you bought just didn't last and you didn't have money to get more. Never true 04/26/2019 PRAPARE - Transportation Answer Date Re corded In the past 12 months, has l ack of transportation kept you from medical appointments or from getting medications? No 09/2019 In the past 12 months, has l ack of transportation kept you from meetings, work, or from getting things needed for daily living? No 04/26/2019 Area Deprivation Index Answer Date Juan rded National Score (1-100), lower number is lower ri sk 66 08/05/2021 State Score (1-10), lower number is lower risk N ot on file 08/05/2021 Data from: https://www.neighborhoodatlas.medicine.[facility].edu/. Last address used for calculation [address] 08/05/2021 Comments No Sex and Gender Information Value Date Recorded Sex Assigned at Female 10/15/2020 12:47 AM EDT Legal Sex Female 8:13 AM EST Gender Identity Female 10/15/2020 12:47 AM EDT Sexual Orientation Straight 10/15/2020 12 :47 AM EDT COVID-19 Exposure Response Date Recorded In the last 10 days, have yo u been in contact with someone who was confirmed or suspected to have Coronavirus/COVID-19? No / Unsure 08/23/2021 8:11 AM EDT documented as of this encounter Functional Status * Are you deaf or do you have serious difficulty hearing? Answer Date of Assessment Author No 06/23/2021 1:25 PM EDT Sarah Hill RN * Are you blind or do you have serious difficulty seeing, even when wearing glasses? Answer Date of Assessment Author No 06/23/2021 1:25 PM EDT Sarah Hill RN * Do you have serious difficulty walking or climbing stairs? Answer Date of Assessment Author No 06/23/2021 1:25 PM EDT Sarah Hill RN * Do you have difficulty dressing or bathing? Answer Date of Assessment Author No 06/23/2021 1:25 PM EDT Sarah Hill RN * Because of a physical, mental, or emotional condition, do you have difficulty doing errands alone such as visiting a doctor's office or shopping? Answer Date of Assessment Author No 06/23/2021 1:25 PM EDT Sarah Hill RN documented as of this encounter Mental Status * Because of a physical, mental, or emotional condition, do you have serious difficulty concentrating, remembering, or making decisions? Answer Entry Date Author No 06/23/2021 1:25 PM EDT Sarah Hill RN documented in this encounter Plan of Treatment Not on file documented as of this encounter Visit Diagnoses Not on filedocumented in this encounter Additional Health Concerns Infection Onset Date Last Indicated Resolved Time COVID-19 Rule-Out 09/06/2021 09/06/2021 09/06/2021 6:38 AM EDT documented as of this encounter Care Teams Metaphysics Teacher Relationship Specialty Start Date End Date Kami Olvera MD [address] [place] [address] PCP - General Family Medicine 02/01/17 Jazzy Dunn RN [address] [facility] [place] [address] Specialty Forestry Supervisor Hematology/Oncology 07/27/21 04/30/23 David House MD [address] [place] [address] Physician Hematology/Oncology 07/27/21 Odette Lopez PA-C [address] [facility] [place] [address] Physician Chemical Weigher Hematology/Oncology 07/27/21 Rubens Singh MD [address] [facility] [place] [address] Physician Hematology/Oncology 10/08/21 Fran [facility] Palliative Medicine Provider 08/30/21 documented as of this encounter
--- OUTSIDE RECORDS SUMMARY | 2024-11-16 08:57 | XMS_ITS | Encounter Summary ---
Author Organization [facility] Address [address] [place] [address] Care Team Providers Care Tube Filler Name Role Phone Kami Olvera MD Primary Care Provider [phone] Jazzy Dunn RN Unavailable [phone] David House MD Unavailable [phone] Odette Lopez PA-C Unavailable [phone] Rubens Singh MD Unavailable [phone] Source Comments In the event this information is protected by the Federal Confidentiality of Alcohol and Drug AbusePatient Records regulations: The Federal rules restrict any use of the information to criminally investigate or prosecute any alcohol or drug abuse patient.[facility] Encounter Details Date Type Department Care Team (Late st Contact Info) Description 08/12/2021 Patient Msg [facility] [address] [facility] [address] [place] [address] [place] [address] [address] [facility] [address] [place] [id number] Request an Appointment Social History Tobacco Use Types Packs/Day Years [...] N ot on file 08/05/2021 Data from: https://www.neighborhoodatlas.medicine.[facility].edu/. Last address used for calculation [...] suspected to have Coronavirus/COVID-19? No / Unsure 08/13/2021 1:49 PM EDT documented as of this encounter Functional [...] documented as of this encounter Care Teams Tube Filler Relationship Specialty Start Date End Date Kami Olvera MD [address] [place] [address] PCP - General Family Medicine 02/01/17 Jazzy Dunn RN [address] [facility] [place] [address] Specialty Womens Volleyball Coach Hematology/Oncology 07/27/21 04/30/23 David House MD [address] [place] [address] Physician Hematology/Oncology 07/27/21 Odette Lopez PA-C [address] [facility] [place] [address] Physician Ict Support And Test Engineers Hematology/Oncology 07/27/21 Rubens Singh MD [address] [facility] [place] [address] Physician Hematology/Oncology 10/08/[address] [facility] Palliative Medicine Provider 08/30/21 documented as of this encounter
--- OUTSIDE RECORDS SUMMARY | 2024-11-16 08:57 | XMS_ITS | Encounter Summary ---
Author Organization [facility] Address [address] [place] [address] Care Team Providers Care Display Trimmer Name Role Phone Kami Olvera MD Primary Care Provider [phone] David House MD Unavailable [phone] Rubens Singh MD Unavailable [phone] Source Comments In the event this information is protected by the Federal Confidentiality of Alcohol and Drug AbusePatient Records regulations: The Federal rules restrict any use of the information to criminally investigate or prosecute any alcohol or drug abuse patient.[facility] Encounter Details Date Type Department Care Team (Late st Contact Info) Description 09/10/2024 [place] [address] Provider, [facility] Sign up to manage your digestive symptoms in between visits, covered by insurance Social History Tobacco Use Types Packs/Day Years Used Date Smoking Tobacco: Never Passive Smoke Exposure: Past Smokeless Tobacco: Never Alcohol Use Standard Drinks/Week Comments Not Currently 0 (1 standard drink = 0.6 oz pur e alcohol) rarely Overall Financial Resource Strain (CARDIA) Answe r Date Recorded How hard is it for you to pa y for the very basics like food, housing, medical care, and heating? Not hard at all 09/08/2021 PHQ-2 Answer Date Recorded PHQ-2 score 0 05/09/2023 Hunger Vital Sign Answer Date Recorded Within the past 12 months, y ou worried that your food would run out before you got the money to buy more. Never true 09/09/19 Within the past 12 months, t he food you bought just didn't last and you didn't have money to get more. Never true 09/08/2021 PRAPARE - Transportation Answer Date Re corded In the past 12 months, has l ack of transportation kept you from medical appointments or from getting medications? No 08/19 In the past 12 months, has l ack of transportation kept you from meetings, work, or from getting things needed for daily living? No 09/08/2021 Housing Stability Vital Sign Answer Andrade e Recorded In the last 12 months, was t here a time when you were not able to pay the mortgage or rent on time? No 09/08/2021 In the last 12 months, how many places have you lived? 1 09/08/2021 In the last 12 months, was t here a time when you did not have a steady place to sleep or slept in a group home (including now)? No 09/08/2021 Area Deprivation Index Answer Date Juan rded National Score (1-100), lower number is lower ri sk 73 10/14/2022 State Score (1-10), lower number is lower risk 6 10/14/2022 Data from: https://www.neigh borhoodatlas.medicine.[facility].edu/. Last address used for calculation [address] 10/14/2022 Comments No Sex and Gender Information Value Date Recorded Sex Assigned at Female 10/15/2020 12:47 AM EDT Legal Sex Female 8:13 AM EST Gender Identity Female 10/15/2020 12:47 AM EDT Sexual Orientation Straight 10/15/2020 12 :47 AM EDT documented as of this encounter [...] on filedocumented in this encounter Care Teams Display Trimmer Relationship Specialty Start Date End Date Kami Olvera MD [address] [place] [id number] PCP - General Family Medicine 02/01/17 David House MD [address] [place] [id number] Physician Hematology/Oncology 07/27/21 Rubens Singh MD [address] [place] [address] Physician Hematology/Oncology 10/08/21 [facility] 08/30/21 documented as of this encounter
--- OUTSIDE RECORDS SUMMARY | 2024-11-16 08:57 | XMS_ITS | Continuity of Care Document ---
Author Organization [facility] Address [address] [place] [address] Phone Care Team Providers Care Watermaster Name Role Phone Kami Briceno MD Primary Care Pr ovider Melly Diaz APRN Attending Provider [phone] Care Teams Patient Care Team Team Status: Active Member Role Status Dates Kami Olvera MD Primary Care Provide r Active Visit Care Team Team Status: Inactive Member Role Status Dates Kami Olvera MD Primary Care Provide r Active Start: September 03, 2024 End: September 03, 2024 Melly Diaz APRN Attending Provider Active Start: September 03, 2024 End: September 03, 2024 Patient Care Team Team Status: Inactive Member Role Status Dates Kami Olvera MD Primary Care Provider Active Start: October End: November 01, 2024 Melly Diaz APRN Attending Provider Active Start: November 01, 2024 End: November 01, 2024 Chief Complaint and Reason for Visit Chief Complaint Admit Date Patient here for a 2 month f/u August 9:57am Patient here for a 2 month f/u November 012024 11:18am Reason for Visit Admit Date Cancer associated pain September 03, 2024 9 :57am Hodgkin's lymphoma September 03, 2024 9:57 am Cancer associated pain November 01, 2024 11:18am Hodgkin's lymphoma November 01, 2024 11 :18am 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 November 01, 2024 11:18am Allergies, Adverse Reactions, Alerts Allergen Type Severity Reaction Last Updated Verified Status dihydroergotamine Allergy Unknown passed out November 01, 2024 11:22am Yes Active diphenhydramine Allergy Unknown Hives, anaphylaxis A ugust 2024 11:22am Yes Active iodine Allergy Unknown Rash November 01, 2024 11:22am Yes Active Social History Smoking Status Status Start Date End Date Date of Observa tion Never smoked tobacco (finding) September 03, 2024 10:07am Observation Status Observation Response Date of Response Legal Sex Female (finding) Sex Assigned At Female [birth year] Family History Relationship Condition Age at Onset Recorded Date/T tiffanie mother Presence of cardiac pacemaker Unknown father Hypertension Unknown brother Coarctation of aorta Unknown Cerebral palsy Unknown Ifeanyi sequence Unknown brother Heart disease Unknown father Hypertension Unknown grandparent Heart disease Unknown grandparent Unknown Malignant neoplasm Unknown Neoplasm of brain Unknown mother Presence of cardiac pacemaker Unknown Heart disease Unknown Problems Active Problems Medical Problem Onset Date Status Comments Hodgkin's lymphoma Unknown Active Hodgkins lymphoma Unknown Active Unresponsive episode Unknown Active Abdominal pain, RUQ Unknown Active Migraine Unknown Active Viral URI with cough Unknown Active Skin infection at gastrostomy tube site Unknown A ctive Candidiasis of mouth Unknown Active Pain Unknown Active Shoulder pain Unknown Active Chest wall pain Unknown Active Lymphadenopathy Unknown Active Lymphoma Unknown Active Neutropenia Unknown Active Neutropenic fever Unknown Active Cancer associated pain Unknown Active Cancer-related pain Unknown Active Abdominal pain, epigastric Unknown Active 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 Active AMS (altered mental status) Unknown Active Nonhealing surgical wound Unknown Active Surgical wound, non healing Unknown Active Abdominal pain Unknown Active Chest pain Unknown Active Nausea Unknown Active Pleurisy Unknown Active Dehydration Unknown Active Inactive/Resolved Problems Medical Problem Onset Date Status Comments PEG (percutaneous endoscopic gastrostomy) status Unknown Resolved History of gastric surgery Unknown Resolved H EPATICOJEJUNOSTOMY Hx of cholecystectomy Unknown Resolved Medications Medication Status Dose Units Route Directions Qty Days St art Date Stop Date End Date Instructions Adherence Hydromorpho ne (Dilaudid) 4 mg tablet Discont inued 4 MG PO Q4H as needed for Pain 90 2023May 22, 2023 11:03 am Hydromorpho ne (Dilaudid) 4 mg tablet Discont inued 4 MG PO Q4H as needed for Pain 90 May 22, 2023 May 31, 2023 8:53a m Hydromorpho ne (Dilaudid) 4 mg tablet Discont inued 4 MG PO Q4H as needed for Pain 36 May 31, 2023 June 02, 2023 8:37a m Hydromorpho ne (Dilaudid) 4 mg tablet Discont inued 4 MG PO Q4H as needed for Pain 90 June 02, 2023 June 15, 2023 1:30p m Hydromorpho ne (Dilaudid) 4 mg tablet Discont inued 4 MG PO Q4H as needed for Pain 90 June 15, 2023 June 29, 2023 4:03p m Hydromorpho ne (Dilaudid) 4 mg tablet Discont inued 4 MG PO Q4H as needed for Pain 90 July 10, 2023 July 25, 2023 8:02a m Hydromorpho ne (Dilaudid) 4 mg tablet Discont inued 4 MG PO Q4H as needed for Pain 90 July 25, 2023 August 07, 2023 8:44a m Hydromorpho ne (Dilaudid) 4 mg tablet Discont inued 4 MG PO Q4H as needed for Pain 90 August 07, 2023 August 23, 2023 10:43 am Hydromorpho ne (Dilaudid) 4 mg tablet Discont inued 4 MG PO Q4H as needed for Pain 90 September 04, 2023 September 15, 2023 11:33 am Hydromorpho ne (Dilaudid) 4 mg tablet Discont inued 4 MG PO Q4H as needed for Pain 90 September 15, 2023 October 02, 2023 2:55p m Hydromorpho ne (Dilaudid) 4 mg tablet Discont inued 4 MG PO Q4H as needed for Pain 90 October 02, 2023 October 10, 2023 12:57 pm Hydromorpho ne (Dilaudid) 4 mg tablet Discont inued 4 MG PO Q4H as needed for Pain 90 October 10, 2023 Augus t 2023 2:17p m Morphine 15 mg tablet Discont inued 0 PO Three times daily as needed for pain 48 October 19, 2023Octus t 2023 3:25p m 1-2 tabs orally three times daily PRN; Morphine 15 mg tablet Discont inued 0 PO Three times daily as needed for pain 48 October 19, 2023Octus t 2023 9:27a m 1-2 tabs orally three times daily PRN; Morphine 15 mg tablet Discont inued 0 PO Twice daily as needed for pain 80 November 15, 2023 [facility] 2023 1:01p m 1-2 tabs orally twice daily PRN; Morphine 15 mg tablet Discont inued 0 PO Twice daily as needed for pain 120 30 Septem deborah 2023 [facility] 2023 1:04p m 1-2 tabs orally twice daily PRN; Morphine 15 mg tablet Discont inued 0 PO Twice daily as needed for pain 120 30 Septem deborah 2023 Octob er 2023 7:53a m 1-2 tabs orally twice daily PRN; Morphine 15 mg tablet Discont inued 0 PO Twice daily as needed for pain 120 30 Octobe r 2023 Novem deborah 2023 11:48 am 1-2 tabs orally twice daily PRN; Morphine 15 mg tablet Discont inued 0 PO Three times daily as needed for pain 150 30 Novemb er 2023 [facility] de[facility]ah 2023 9:24a m 1-2 tabs orally three times daily PRN; adjusting medication frequency please refill on 02/01/24 Morphine 15 mg tablet Discont inued 0 PO Three times daily as needed for pain 150 30 Decemb er 2023 [facility] de[facility]ah 2023 2:55p m 1-2 tabs orally three times daily PRN; adjusting medication frequency please refill on 02/01/24 Morphine 15 mg tablet Discont inued 0 PO Three times daily as needed for pain 150 30 Decemb er 2023 Janua ry 2024 2:28p m 1-2 tabs orally three times daily PRN; Morphine 15 mg tablet Discont inued 0 PO Three times daily as needed for pain 150 30 Januar y 2024 Febru alia 2024 4:42p m 1-2 tabs orally three times daily PRN; Morphine 15 mg tablet Discont inued 0 PO Three times daily as needed for pain 150 30 Februa ry 2024May 23, 2024 10:51 am 1-2 tabs orally three times daily PRN; Morphine 15 mg tablet Discont inued 15 MG PO EVERY 4-6 HOURS as needed for pain 75 June 14, 2024 June 27, 2024 12:39 pm Morphine 15 mg tablet Discont inued 15 MG PO EVERY 4-6 HOURS as needed for pain 75 July 12, 2024 July 12, 2024 8:33a m Morphine 15 mg tablet Discont inued 15 MG PO EVERY 4-6 HOURS as needed for pain 75 July 12, 2024 July 25, 2024 1:14p m Morphine 15 mg tablet Discont inued 15 MG PO EVERY 4-6 HOURS as needed for pain 75 July 25, 2024 August 09, 2024 2:14p m Morphine 15 mg tablet Discont inued 15 MG PO EVERY 4-6 HOURS as needed for pain 75 August 09, 2024 August 26, 2024 8:25a m Morphine 15 mg tablet Discont inued 15 MG PO EVERY 4-6 HOURS as needed for pain 75 August 26, 2024 September 03, 2024 10:27 am Morphine 15 mg tablet Discont inued 15 MG PO EVERY 4-6 HOURS as needed for pain 150 September 13, 2024 September 17, 2024 10:09 am Morphine 15 mg tablet Discont inued 15 MG PO EVERY 4-6 HOURS as needed for pain 127 September 17, 2024 September 17, 2024 11:59 am Morphine 15 mg tablet Discont inued 15 MG PO EVERY 4-6 HOURS as needed for pain 127 September 17, 2024 October 04, 2024 8:38a m Morphine 15 mg tablet Discont inued 15 MG PO Every 4 hours as needed for pain 90 October 04, 2024 October 04, 2024 11:11 am Morphine 15 mg tablet Discont inued 15 MG PO Every 4 hours as needed for pain 90 October 04, 2024 October 14, 2024 9:17a m Morphine 15 mg tablet Discont inued 15 MG PO EVERY 4-6 HOURS as needed for pain 75 October 14, 2024 October 14, 2024 4:20p m Morphine 30 mg tablet extended release Discont inued 30 MG PO Every 12 hours 30 October 14, 2024Octus t 2024 11:39 am Oxycodone 10 mg tablet Discont inued 10 MG PO Every 8 hours as needed for pain 07 10October 18, 2024Octus t 2024 9:02a m Oxycodone 10 mg tablet Discont inued 10 MG PO Every 8 hours as needed for pain 21 October 24, 2024Octus t 2024 1:20p m Oxycodone 10 mg tablet Discont inued 10 MG PO Every 8 hours as needed for pain 69 October 24, 2024Octus t 2024 11:40 am Hydromorpho ne 2 mg tablet Discont inued 0 PO Q6H as needed for pain 90 October 29, 2024Octus t 2024 11:42 am 1-2 tablets q 6 hours prn orally every 6 hours PRN; oxycodone not effective, rotating to Hydromorphone Hydromorpho ne 2 mg tablet Active 0 PO Q6H as needed for pain 60 October 29, 2024 1-2 tablets orally every 6 hours PRN; Complies with drug therapy Atenolol 25 mg tablet Discont inued 25 MG PO Twice daily 2017 1:00am 2018 5:04p m Topiramate (Topamax) 100 mg Tablet Discont inued 100 MG PO Twice daily 2017 1:00am 2018 5:04p m Vortioxetin e (Trintellix ) 20 mg tablet Discont inued 20 MG PO Daily 2017 1:00am 2018 5:04p m Suvorexant 20 mg tablet Discont inued 20 MG PO Daily at bedtime 2017 1:00am August 14, 2021 4:45p m Ondansetron Hcl (Zofran) 4 mg tablet Discont inued 4 MG PO Q8H 15 5 2017 1:00am Febru 2017 1:00a m Febru alia2017 1:04a m Venlafaxine (Effexor Xr) 75 mg Capsule,Ext ended Release 24hr Discont inued 225 MG PO Daily 2018 1:00am Esthere er 2021 3:05p m Erenumab-Ao oe (Aimovig Autoinjecto r) 70 mg/mL Auto-Inject or Discont inued 70 MG SUBCUT every month 2018 1:00am September 02, 2019 8:47a m Promethazin e 25 mg tablet Discont inued 25 MG PO Q6H as needed for nausea and vomiting 7 2018 1:00am 2018 12:04 am Ondansetron Hcl (Zofran) 4 mg tablet Discont inued 4 MG PO Q8H as needed for nausea and vomiting 14 5 September 16, 2020 12:00a m August 24, 2021 10:39 pm Naproxen (Naprosyn) 500 mg tablet Discont inued 500 MG PO Twice daily as needed for pain 14 Novemb er 2020 5:13pm August 24, 2021 10:39 pm Tramadol (Ultram) 50 mg tablet Discont inued 50 MG PO Q6H as needed for pain 30 7 July 21, 2021 12:00a m August 14, 2021 4:45p m 1/2 - 1 tab po q 6 hours prn pain Nystatin 100,000 unit/mL suspension Discont inued 92349 00 UNIT BUCCAL Four times daily 60 August 14, 2021 12:00a m August 24, 2021 10:39 pm administer 1/2 of dose in each side of the mouth Oxycodone 5 mg/5 mL solution Discont inued 5 MG PO As Directed as needed for Pain August 24, 2021 12:00a m August 25, 2021 3:47a m Zaleplon 10 mg Capsule Discont inued 10 MG PO Daily at bedtime August 24, 2021 12:00a m Febru 2023 3:35p m Prochlorper azine Maleate (Compazine) 10 mg Tablet Discont inued 10 MG PO Q6H as needed for Vomiting August 24, 2021 12:00a m Marua ry 2022 1:04p m Acyclovir 400 mg Tablet Discont inued 400 MG PO Twice daily August 24, 2021 12:00a [facility] 8:17p m Sulfamethox azole-Trime thoprim (Bactrim Ds) 800-160 mg Tablet Discont inued 1 TAB PO Twice daily August 24, 2021 12:00a m [facility] 8:16p m Alprazolam 0.5 mg Tablet Discont inued 0.5 MG PO Daily at bedtime as needed for Insomnia August 24, 2021 12:00a [facility] 3:04p m Oxycodone-A cetaminophe n (Percocet) 5-325 mg tablet Discont inued 1 - 2 TAB PO Every 6 hours as needed for pain 15 3 August 25, 2021 September 05, 2021 5:09p m Ibuprofen 600 mg tablet Discont inued 600 MG PO Q8H as needed for pain August 25, 2021 12:00a m [facility] 2021 3:04p m Cephalexin 500 mg capsule Discont inued 500 MG PO Q12H 06 01September 26, 2021 12:00a m [facility] 8:17p m Loratadine (Claritin) 10 mg Tablet Discont inued 10 MG PO Daily Sept2021 12:00a m [facility] 2021 3:04p m Hydrocodone -Acetaminop hen 5-325 mg tablet Discont inued 1 TAB PO EVERY 4-6 HOURS as needed for pain 10 3 Decemb er 2021 Febru alia 2023 9:24a m Venlafaxine 225 mg tablet extended release 24hr Active 225 MG PO Daily 2022 1:00am Complies with drug therapy Galcanezuma b-Gnlm (Emgality Syringe) 120 mg/mL syringe Active 120 MG SUBCUT every month 2022 1:00am Complies with drug therapy Cyclobenzap rine 10 mg tablet Discont inued 10 - 12 MG PO Daily at bedtime as needed for Sleep 2022 1:00am 2023 3:32p m Cephalexin (Keflex) 500 mg capsule Discont inued 500 MG PO Q6H 7 2019 1:00am September 02, 2019 8:47a m Wellburtrin Discont inued 100 MG PO Daily September 02, 2019 12:00a m August 02, 2021 6:51a m Zaleplon 10 mg Capsule Discont inued 10 MG PO Bedtime September 02, 2019 12:00a m August 24, 2021 10:39 pm Galcanezuma b-Gnlm (Emgality Syringe) 120 mg/mL syringe Discont inued 0 .ROUTE .COMPLEX September 02, 2019 12:00a m [facility] 2021 3:04p m mg subcutaneousl y once a month Bupropion Hcl 100 mg Tablet Active 100 MG PO Twice daily August 02, 2021 12:00a m Complies with drug therapy Morphine 15 mg tablet extended release Discont inued 30 MG PO Twice daily as needed for Pain September 05, 2021 12:00a m 2023 3:35p m Oxycodone 10 mg tablet Discont inued 10 MG PO As Directed as needed for Pain September 05, 2021 12:00a m [facility] 2021 3:05p m Ondansetron Hcl 4 mg Tablet Active 4 MG PO Q6H as needed for Nausea September 05, 2021 12:00a m Complies with drug therapy Nystatin (Mycostatin ) 100,000 unit/mL Suspension Discont inued 5 ML BUCCAL Four times daily 2021 12:00a m 2022 1:04p m administer 1/2 of dose in each side of the mouth Polyethylen e Glycol 3350 17 gram Powder In Packet Discont inued 17 GM PO Daily as needed for Constipatio n 2021 12:00a m u 2023 3:35p m Sennosides- Docusate Sodium (Senna-S) 8.6-50 mg Tablet Discont inued 1 TAB-CA P PO Twice daily 2021 12:00a m Febru 2023 3:35p m Perflutren Lipid Microsphere s 1.1 mg/mL Suspension Discont inued MG IV 2021 12:00a m 2022 1:04p m Gabapentin (Neurontin) 300 mg Capsule Discont inued 300 MG PO Daily 2021 12:00a m Febru 2023 3:33p m Hydromorpho ne (Dilaudid) 4 mg Tablet Discont inued 4 MG PO Q4H as needed for Pain 2021 12:00a m Febru 2023 1:47p m Olanzapine 5 mg Tablet,Disi ntegrating Discont inued 5 MG PO Daily at bedtime 2021 12:00a m 2022 1:04p m Naloxone 4 mg/actuatio n [place],Non-A erosol Active 4 MG INTRAN TIFF Q2M as needed for Opiate Reversal 2021 12:00a m spray 1 dose into ONE nostril; alternate nostrils w each dose until help arrives Complies with drug therapy Hydromorpho ne (Dilaudid) 4 mg tablet Discont inued 4 MG PO Q4H as needed for Pain 90 June 29, 2023 July 10, 2023 4:36p m Hydromorpho ne (Dilaudid) 4 mg tablet Discont inued 4 MG PO Q4H as needed for Pain 90 August 23, 2023 September 04, 2023 10:11 am Morphine 15 mg tablet Discont inued 15 MG PO EVERY 4-6 HOURS as needed for pain 75 June 27, 2024 July 12, 2024 8:20a m Pseudoephed rine-Dm-Gua ifenesin (Capmist Dm) 60-15-400 mg tablet Active 1 TAB PO EVERY 4-6 HOURS as needed for cold symptoms August 21, 2023 12:00a m do not exceed 4 doses per 24 hrs Complies with drug therapy Morphine 15 mg tablet Discont inued 0 PO Twice daily as needed for pain 80 October 27, 2023 Augus t 2023 2:55p m 1-2 tabs orally twice daily PRN; Morphine 15 mg tablet Discont inued 15 MG PO Every 6 hours as needed for pain 120 May 23, 2024 June 14, 2024 2:46p m Morphine 15 mg tablet Discont inued 15 MG PO EVERY 4-6 HOURS as needed for pain 150 September 03, 2024 September 13, 2024 1:01p m Medical Equipment Device Date Implanted Date Explanted Device Deta ils Vascular port/catheter August 02, 2021 April 06 ANGELO: [id number] Issuing Agency: [facility] Device Id: [id number] Expiration Date: 2022-06-17 Lot Number: [id number] Vital Signs Vital Reading Result Reference Range Collection Date/Time Height 67 [in_i] September 03, 2024 10:06am Weight 61.23 kg September 03, 2024 10:06am Body Temperature 97.5 [degF] 97.6-99.0 September 03, 2024 10:06am Heart Rate 113 /min 60-100 September 03, 2024 10:09am BP Systolic 133 mm[Hg] 100-140 September 03, 2024 10:09am BP Diastolic 89 mm[Hg] 60-100 September 03, 2024 10:09am BMI (Body Mass Index) 21.1 kg/m2 August 182024 10:06am Height 67 [in_i] November 01 11:21am Weight 61.23 kg November 01 11:21am Body Temperature 98.1 [degF] 97.6-99.0 October 11:21am Heart Rate 112 /min 60-100 November 01 11:23am BP Systolic 133 mm[Hg] 100-140 November 01 11:23am BP Diastolic 100 mm[Hg] 60-100 November 01 11:23am BMI (Body Mass Index) 21.1 kg/m2 November 01, 2024 11:21am Advance Directives Advance Directive Response Recorded Date/ Time Advance Directives No April 6:19pm Insurance Providers Guarantor Negro Stacy Address [address] [place] [phone] Contact Info. Home Phone: Payer Policy Id Subscriber's Name Subscriber Id Effectiv e Date Expiration Date [facility] [id number] Daren Stacy [id number] [facility] Netwk Access [id number] Daren Stacy [id number] Amita BC/BS [id number] Negro Stacy [id number] Encounters Encounter Location(s) Arrival/Admit Date Discharge/Depart Date Provider(s) Departed Physician/Prov ider Office Visit -[facility] September 03, 2024 9:57am September 03, 2024 10:28am Leif Lanier APRN Departed Physician/Prov ider Office Visit -[facility] November 01, 2024 11:18am November 01, 2024 11:39am Leif Lanier APRN Recent Diagnosis Onset Date Admit Date Cancer associated pain Unknown August 9:57am Hodgkin's lymphoma Unknown September 03 9:57am Cancer associated pain Unknown November 012024 11:18am Hodgkin's lymphoma Unknown November 01, 2024 11:18am halfway (current) use of o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 Unkn own November 01, 2024 11:18am Assessments Diagnosis Onset Date Resolution Status Admit Date Cancer associated pain acute Ju ne 2024 9:57am Hodgkin's lymphoma acute August 182024 9:57am Cancer associated pain acute Au anya 2024 11:18am Hodgkin's lymphoma acute November 01, 2024 11:18am halfway (current) use of o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 acute November 01 11:18am Plan of Treatment Author Melly Diaz [facility] Authored September 03, 2024 1:47 pm Unfortunately, Negro godfrey es to experience chronic pain in her legs subsequent to ABVR chemotherapy in 2021. Pain is sometimes bothersome at night but is typically aggravated by prolonged activity. OARRS reviewed, consistent with Rx. OME 75 mg/day Continue Morphine IR 15 mg q4-6h PRN without change F/U here 2 months s/p ABVR chemotherapy completed February 2022, Dr. Elizabeth Hu at [facility] [place] Stable disease per most recent restaging scans Needs to change oncologist due to insurance Author Juana Varma [facility] Authored November 01, 2024 11 :37am Continue Dilaudid without ch raysa F/U here 2 months Urine sample obtained for drug screen and periodic monitoring of skilled nursing opioid therapy. Future Tests Future scheduled test information is unavailable Pending Tests Pending diagnostic test information is unavailable Future Visits Future appointment information is unavailable Referrals to Other Providers Referral information is unavailable Future Procedures Future procedure information is unavailable Future Medications Future medication information is unavailable Patient Instructions Patient instructions are unavailable
--- OUTSIDE RECORDS SUMMARY | 2024-11-16 08:57 | XMS_ITS | Encounter Summary ---
Author Organization [facility] Address [address] [place] [address] Care Team Providers Care Traffic Controller Cable Name Role Phone Kami Olvera MD Primary Care Provider [phone] David House MD Unavailable [phone] Rubens Singh MD Unavailable [phone] Source Comments In the event this information is protected by the Federal Confidentiality of Alcohol and Drug AbusePatient Records regulations: The Federal rules restrict any use of the information to criminally investigate or prosecute any alcohol or drug abuse patient.[facility] Encounter Details Date Type Department Care Team (Late st Contact Info) Description 01/07/2024 Get Medical Advice Gastroenterology [id number] [place], [place] [id number] Theresa Rodríguez APRN.SCALING MACHINE OPERATOR [id number] [place] [address] Colonoscopy Social History Tobacco Use Types Packs/Day Years [...] place to sleep or slept in a senior care (including now)? No 09/08/2021 Area Deprivation Index Answer Date Juan rded National Score (1-100), lower number is lower ri sk 73 10/14/2022 State Score (1-10), lower number is lower risk 6 10/14/2022 Data from: [email or web address] [email or web address]/. Last address used for calculation [...] on filedocumented in this encounter Care Teams Traffic Controller Cable Relationship Specialty Start Date End Date Kami Olvera MD [address] [place] [phone] PCP - General Family Medicine 02/01/17 David House MD [address] [place] [phone] Physician Hematology/Oncology 07/27/21 Rubens Singh MD [address] [place] [id number] Physician Hematology/Oncology 10/08/21 [facility] Palliative Medicine Provider 08/30/21 documented as of this encounter
--- OUTSIDE RECORDS SUMMARY | 2024-11-16 08:57 | XMS_ITS | Encounter Summary ---
Author Organization [facility] Address [address] [place] [address] Care Team Providers Care Lab Tester Name Role Phone Kami Olvera MD Primary Care Provider [phone] Jazzy Dunn RN Unavailable [phone] David House MD Unavailable [phone] Odette Lopez PA-C Unavailable [phone] Rubens Singh MD Unavailable [phone] Source Comments In the event this information is protected by the Federal Confidentiality of Alcohol and Drug AbusePatient Records regulations: The Federal rules restrict any use of the information to criminally investigate or prosecute any alcohol or drug abuse patient.[facility] Encounter Details Date Type Department Care Team (Late st Contact Info) Description 07/22/2022 Patient [facility] [address] [place] [address] Provider, Ccf Sulfamethoxazole-trim ethoprim refill request Social History Tobacco Use Types Packs/Day Years [...] PHQ-2 Answer Date Recorded PHQ-2 score 0 09/10/2021 Hunger Vital Sign Answer Date Recorded Within [...] place to sleep or slept in a mcfp (including now)? No 09/08/2021 Area Deprivation Index Answer Date Juan rded National Score (1-100), lower number is lower ri sk 66 04/06/2022 State Score (1-10), lower number is lower risk N ot on file 04/06/2022 Data from: https://www.neighborhoodatlas.medicine.[place].edu/. Last address used for calculation [address] 04/06/2022 Comments No Sex and Gender Information Value [...] on filedocumented in this encounter Care Teams Lab Tester Relationship Specialty Start Date End Date Kami Olvera MD [address] [facility] [place] [phone] PCP - General Family Medicine 02/01/17 Jazzy Dunn RN [address] [facility] [place] [address] Specialty Concrete Block Plant Supervisor Hematology/Oncology 07/27/21 04/30/23 David House MD [facility] [place] [address] Physician Hematology/Oncology 07/27/21 Odette Lopez PA-C [address] [place] [address] Physician Sheriff Sergeant Hematology/Oncology 07/27/21 Rbuens Singh MD [address] [place] [address] [place] [address] Physician Hematology/Oncology 10/08/21 Fran [facility] Palliative Medicine Provider 08/30/21 documented as of this encounter
--- OUTSIDE RECORDS SUMMARY | 2024-11-16 08:57 | XMS_ITS | Encounter Summary ---
Author Organization [facility] Address [address] [place] [address] Care Team Providers Care Licensing Engineer Name Role Phone Kaim Olvera MD Primary Care Provider [phone] Jazzy Dunn RN Unavailable [phone] David House MD Unavailable [phone] Odette Lopez PA-C Unavailable [phone] Rubens Singh MD Unavailable [phone] Source Comments In the event this information is protected by the Federal Confidentiality of Alcohol and Drug AbusePatient Records regulations: The Federal rules restrict any use of the information to criminally investigate or prosecute any alcohol or drug abuse patient.[facility] Encounter Details Date Type Department Care Team (Late st Contact Info) Description 08/09/2021 Patient Msg Nutrition Therapy [address] [place] [address] [place] [address] Provider, Ccf [place]: Tube Feeding Formula Update Social History Tobacco Use Types Packs/Day Years [...] N ot on file 08/05/2021 Data from: https://www.neighborhoodatlas.medicine.[facility].edu/. Last address used for calculation [address] [...] suspected to have Coronavirus/COVID-19? No / Unsure 08/12/2021 5:57 PM EDT documented as of this encounter Functional Status * Are you deaf or do you have serious difficulty hearing? Answer Date of Assessment Author No 06/23/2021 1:25 PM EDT Sarah Hill RN * Are you blind or do you have serious difficulty seeing, even when wearing glasses? Answer Date of Assessment Author No 06/23/2021 1:25 PM EDT Sergio, Sarah rodgers RN * Do you have serious difficulty [...] documented as of this encounter Care Teams Licensing Engineer Relationship Specialty Start Date End Date Kami Olvera MD [address] [facility] [place] [place] [address] PCP - General Family Medicine 02/01/17 Jazzy Dunn RN [address] [facility] [place] [address] Specialty Screen Printing Equipment Setter Hematology/Oncology 07/27/21 04/30/23 David House MD [address] [place] [address] [place] [address] Physician Hematology/Oncology 07/27/21 Odette Lopez PA-C [address] [place] [address] [place] [address] Physician Machine Maintenance Supervisor Hematology/Oncology 07/27/21 Rubens Singh MD [address] [place], [place] [address] Physician Hematology/Oncology 10/08/21 Fran [facility] Palliative Medicine Provider 08/30/21 documented as of this encounter
--- OUTSIDE RECORDS SUMMARY | 2024-11-16 08:57 | XMS_ITS | Encounter Summary ---
Author Organization [facility] Address [address] [place] [address] Phone Care Team Providers Care Beamer Operator Name Role Phone Kami Olvera MD Primary Care Provider [phone] Encounter Details Date Type Department Care Team (Late st Contact Info) Description 11/28/2021 Orders Only [facility] [address] [place] [address] Conversion, Onbase Social History Tobacco Use Types [...] on filedocumented in this encounter Care Teams Beamer Operator Relationship Specialty Start Date End Date Kami Olvera MD [address] [place] [address] PCP - General 03/20/99 documented as of this encounter
--- OUTSIDE RECORDS SUMMARY | 2024-11-16 08:57 | XMS_ITS | Clinical Summary ---
Author Organization [facility] Address [address] [place] [address] Phone Care Team Providers Care Merchandise Marker Name Role Phone Kami Olvera MD Primary Care Provider [phone] Social History Tobacco Use Types Packs/Day Years [...] 08/26/2021 12:56 PM EDT Plan of Treatment Not on file Care Teams Merchandise Marker Relationship Specialty Start Date End Date Kami Olvera MD [address] [place] [phone] PCP - General 03/20/99
--- OUTSIDE RECORDS SUMMARY | 2024-11-16 08:57 | XMS_ITS | Encounter Summary ---
Author Organization [facility] Address [address] [place] [address] Care Team Providers Care Technician Telecommunication Systems Name Role Phone Kami Olvera MD Primary Care Provider [phone] Jazzy Dunn RN Unavailable [phone] David House MD Unavailable [phone] Odette Lopez PA-C Unavailable [phone] Rubens Singh MD Unavailable [phone] Source Comments In the event this information is protected by the Federal Confidentiality of Alcohol and Drug AbusePatient Records regulations: The Federal rules restrict any use of the information to criminally investigate or prosecute any alcohol or drug abuse patient.[facility] Encounter Details Date Type Department Care Team (Late st Contact Info) Description 07/29/2021 Patient Msg Nutrition Therapy [address] [place] [address] [place] [address] Provider, Ccf Tube Feeding Social History Tobacco Use Types Packs/Day Years [...] (1-100), lower number is lower ri sk Not on file 02/23/2020 State Score (1-10), lower number is lower risk N ot on file 02/23/2020 Data from: https://www.neighborhoodatlas.medicine.[facility].edu/. Last address used for calculation Not on file 02/23/2020 Comments No Sex and Gender Information Value [...] suspected to have Coronavirus/COVID-19? No / Unsure 07/28/2021 2:51 PM EDT documented as of this encounter [...] Assessment Author No 06/23/2021 1:25 PM EDT Jason Hill RN * Do you have difficulty [...] documented as of this encounter Care Teams Technician Telecommunication Systems Relationship Specialty Start Date End Date Kami Olvera MD [address] [facility] [place] [address] PCP - General Family Medicine 02/01/17 Jazzy Dunn RN [address] [facility] [place] [address] Specialty Lathe Sander Hematology/Oncology 07/27/21 04/30/23 David House MD [address] [place] [address] [place] [address] Physician Hematology/Oncology 07/27/21 Odette Lopez PA-C [address] [facility] [place] [address] Physician Outside Repairer Special Hematology/Oncology 07/27/21 Rubens Singh MD [address] [place] [address] Physician Hematology/Oncology 10/08/21 Fran [facility] Palliative Medicine Provider 08/30/21 documented as of this encounter
--- OUTSIDE RECORDS SUMMARY | 2024-11-16 08:57 | XMS_ITS | Encounter Summary ---
Author Organization [facility] Address [address] [place] [address] Care Team Providers Care Spa Manager Name Role Phone Kami Olvera MD Primary Care Provider [phone] Jazzy Dunn RN Unavailable [phone] David House MD Unavailable [phone] Odette Lopez PA-C Unavailable [phone] Rubens Singh MD Unavailable [phone] Source Comments In the event this information is protected by the Federal Confidentiality of Alcohol and Drug AbusePatient Records regulations: The Federal rules restrict any use of the information to criminally investigate or prosecute any alcohol or drug abuse patient.[facility] Encounter Details Date Type Department Care Team (Late st Contact Info) Description 08/10/2021 Get Medical Advice General Surgery [address] [place] [address] Barrera Whittington PA-C [address] [place] [address] Feeding Tube Leakage Social History [...] N ot on file 08/05/2021 Data from: https://www.neighborhoodatlas.medicine.[facility].edu/. Last address used for calculation [address] [...] documented as of this encounter Care Teams Spa Manager Relationship Specialty Start Date End Date Kami Olvera MD [address] [place] [address] PCP - General Family Medicine 02/01/17 Jazzy Dunn RN [address] [facility] [place] [address] Specialty Tuber Machine Cutter Hematology/Oncology 07/27/21 04/30/23 David House MD [address] [place] [address] Physician Hematology/Oncology 07/27/21 Odette Lopez PA-C [address] [facility] [place] [address] Physician Head Of Data Hematology/Oncology 07/27/21 Rubens Singh MD [address] [place] [address] Physician Hematology/Oncology 10/08/21 Fran [facility] Palliative Medicine Provider 08/30/21 documented as of this encounter
--- OUTSIDE RECORDS SUMMARY | 2024-11-16 08:58 | XMS_ITS | Encounter Summary ---
Author Organization [facility] Address [address] [place] [address] Care Team Providers Care Jewelry Facer Name Role Phone Kami Olvera MD Primary Care Provider [phone] Jazzy Dunn RN Unavailable [phone] David House MD Unavailable [phone] Odette Lopez PA-C Unavailable [phone] Rubens Singh MD Unavailable [phone] Source Comments In the event this information is protected by the Federal Confidentiality of Alcohol and Drug AbusePatient Records regulations: The Federal rules restrict any use of the information to criminally investigate or prosecute any alcohol or drug abuse patient.[facility] Encounter Details Date Type Department Care Team (Late st Contact Info) Description 06/08/2021 Patient Msg General Surgery [address] [place] [address] Provider, Ccf Upcoming appointment Social History Tobacco Use Types Packs/Day Years [...] N ot on file 02/23/2020 Data from: https://www.neighborhoodatlas.medicine.[facility].edu/. Last address used for calculation Not on file 02/23/2020 Comments No Sex and Gender Information Value Date Recorded Sex Assigned at Female 10/15/2020 12:47 AM EDT Legal Sex Female 8:13 AM EST Gender Identity Female 10/15/2020 12:47 AM EDT Sexual Orientation Straight 10/15/2020 12 :47 AM EDT COVID-19 Exposure Response Date Recorded In the last month, have you been in contact with someone who was confirmed or suspected to have Coronavirus / COVID-19? No / Unsure 05/25/2021 3:19 PM EST documented as of this encounter Functional Status * Are you deaf or do you have serious difficulty hearing? Answer Date of Assessment Author No 05/23/2021 7:10 PM EST Miranda Nieves, MORE * Are you blind or do you have serious difficulty seeing, even when wearing glasses? Answer Date of Assessment Author No 06/03/2021 6:50 PM EDT Deloris Martell RN * Do you have serious difficulty walking or climbing stairs? Answer Date of Assessment Author No 06/03/2021 6:50 PM EDT Deloris Martell RN * Do you have difficulty dressing or bathing? Answer Date of Assessment Author No 06/03/2021 6:50 PM EDT Deloris Martell RN * Because of a physical, mental, or emotional condition, do you have difficulty doing errands alone such as visiting a doctor's office or shopping? Answer Date of Assessment Author No 06/03/2021 6:50 PM EDT Deloris Martell RN documented as of this encounter Mental Status * Because of a physical, mental, or emotional condition, do you have serious difficulty concentrating, remembering, or making decisions? Answer Entry Date Author No 06/03/2021 6:50 PM EDT Deloris Martell RN documented in this encounter Plan of Treatment Not on file documented as of this encounter Visit Diagnoses Not on filedocumented in this encounter Additional Health Concerns Infection Onset Date Last Indicated Resolved Time COVID-19 Rule-Out 09/06/2021 09/06/2021 09/06/2021 6:38 AM EDT documented as of this encounter Care Teams Jewelry Facer Relationship Specialty Start Date End Date Kami Olvera MD [address] [place] [address] PCP - General Family Medicine 02/01/17 Jazzy Dunn RN [address] [facility] [place] [address] Specialty Light Fixture Servicer Hematology/Oncology 07/27/21 04/30/23 David House MD [address] [place] [address] Physician Hematology/Oncology 07/27/21 Odette Lopez PA-C [address] [place] [address] Physician Sizer Machine Hematology/Oncology 07/27/21 Rubens Singh MD [address] [place] [address] Physician Hematology/Oncology 10/08/21 Fran [facility] Palliative Medicine Provider 08/30/21 documented as of this encounter
--- OUTSIDE RECORDS SUMMARY | 2024-11-16 08:58 | XMS_ITS | Encounter Summary ---
Author Organization [facility] Address [address] [place] [address] Care Team Providers Care Subsystems Engineer Name Role Phone Kami Olvera MD Primary Care Provider [phone] Jazzy Dunn RN Unavailable [phone] David House MD Unavailable [phone] Odette Lopez PA-C Unavailable [phone] Rubens Singh MD Unavailable [phone] Source Comments In the event this information is protected by the Federal Confidentiality of Alcohol and Drug AbusePatient Records regulations: The Federal rules restrict any use of the information to criminally investigate or prosecute any alcohol or drug abuse patient.[facility] Encounter Details Date Type Department Care Team (Late st Contact Info) Description 09/25/2020 Patient Msg General Surgery [address] [place] [address] Provider, Ccf FMLA Social History Tobacco Use Types Packs/Day Years Used Date Smoking Tobacco: Never Smokeless Tobacco: Never Alcohol Use Standard Drinks/Week Comments Yes 0 (1 standard drink = 0.6 oz pur e alcohol) rarely Overall Financial Resource Strain (CARDIA) Answe r Date Recorded How hard is it for you to pa y for the very basics like food, housing, medical care, and heating? Not hard at all 04/26/2019 Hunger Vital Sign Answer Date Recorded Within [...] N ot on file 02/23/2020 Data from: https://www.neighborhoodatlas.medicine.[facility].edu/. Last address used for calculation Not [...] have Coronavirus / COVID-19? No / Unsure 09/10/2020 2:46 PM EDT documented as of this encounter Functional Status * Are you deaf or do you have serious difficulty hearing? Answer Date of Assessment Author No 09/13/2020 10:40 AM EDT Lily Rodrigues RN * Are you blind or do you have serious difficulty seeing, even when wearing glasses? Answer Date of Assessment Author No 09/13/2020 10:40 AM EDT Lily Rodrigues RN * Do you have serious difficulty walking or climbing stairs? Answer Date of Assessment Author No 09/13/2020 10:40 AM Lily Palma RN * Do you have difficulty dressing or bathing? Answer Date of Assessment Author No 09/13/2020 10:40 AM Lily Palma RN * Because of a physical, mental, or emotional condition, do you have difficulty doing errands alone such as visiting a doctor's office or shopping? Answer Date of Assessment Author No 09/13/2020 10:40 AM Lily Palma RN documented as of this encounter Mental Status * Because of a physical, mental, or emotional condition, do you have serious difficulty concentrating, remembering, or making decisions? Answer Entry Date Author No 09/13/2020 10:40 AM Lily Palma RN documented in this encounter Plan of Treatment Not on file documented as of this encounter Visit Diagnoses Not on filedocumented in this encounter Additional Health Concerns Infection Onset Date Last Indicated Resolved Time COVID-19 Rule-Out 10/30/2020 10/30/2020 10/30/2020 10:55 PM EDT COVID-19 Rule-Out 12/15/2020 12/23/2020 12/23/2020 10:18 PM EDT COVID-19 Rule-Out 05/17/2021 05/17/2021 05/18/2021 12:29 AM EST COVID-19 Rule-Out 05/25/2021 05/25/2021 05/25/2021 11:03 PM EST COVID-19 Rule-Out 09/06/2021 09/06/2021 09/06/2021 6:38 AM EDT documented as of this encounter Care Teams Subsystems Engineer Relationship Specialty Start Date End Date Kami Olvera MD [address] [place] [address] PCP - General Family Medicine 02/01/17 Jazzy Dunn RN [address] [place] [address] [place] [address] Specialty Assisted Sales Representative Hematology/Oncology 07/27/21 04/30/23 David House MD [address] [place] [address] [place] [address] Physician Hematology/Oncology 07/27/21 Odette Lopez PA-C [address] [place] [address] [place] [address] Physician Miller First Hematology/Oncology 07/27/21 Rubens Singh MD [address] [place] [address] [place] [address] Physician Hematology/Oncology 10/08/21 Fran [facility] Palliative Medicine Provider 08/30/21 documented as of this encounter
--- OUTSIDE RECORDS SUMMARY | 2024-11-16 08:58 | XMS_ITS | Encounter Summary ---
Author Organization [facility] Address [address] [place] [address] Care Team Providers Care Director Hardware Name Role Phone Kami Olvera MD Primary Care Provider [phone] Jazzy Dunn RN Unavailable [phone] David House MD Unavailable [phone] Odette Lopez PA-C Unavailable [phone] Rubens Singh MD Unavailable [phone] Source Comments In the event this information is protected by the Federal Confidentiality of Alcohol and Drug AbusePatient Records regulations: The Federal rules restrict any use of the information to criminally investigate or prosecute any alcohol or drug abuse patient.[facility] Encounter Details Date Type Department Care Team (Late st Contact Info) Description 09/17/2021 Patient Msg [facility] [address] [facility] [address] [place] [address] [place] [address] [address] [facility] [address] [place] [address] Appointment Request Social History Tobacco Use Types Packs/Day Years [...] place to sleep or slept in a chcf (including now)? No 09/08/2021 Area Deprivation Index Answer Date Juan rded National Score (1-100), lower number is lower ri sk 66 08/05/2021 State Score (1-10), lower number is lower risk N ot on file 08/05/2021 Data from: https://www.neighborhoodatlas.medicine.[facility].edu/. Last address used for calculation [...] suspected to have Coronavirus/COVID-19? No / Unsure 09/17/2021 12:46 PM EDT documented as of this encounter [...] on filedocumented in this encounter Care Teams Director Hardware Relationship Specialty Start Date End Date Kami Olvera MD [address] [place] [address] PCP - General Family Medicine 02/01/17 Jazzy Dunn RN [address] [place] [address] [place] [address] Specialty Prosthetic Assistant Hematology/Oncology 07/27/21 04/30/23 David House MD [address] [facility] [place] [address] Physician Hematology/Oncology 07/27/21 Odette Lopez, PAPonchoC [address] [facility] [place] [address] Physician Manager Business Intelligence Hematology/Oncology 07/27/21 Rubens Singh MD [address] [place] [address] [place] [address] Physician Hematology/Oncology 10/08/21 Fran [facility] Palliative Medicine Provider 08/30/21 documented as of this encounter
--- OUTSIDE RECORDS SUMMARY | 2024-11-16 08:58 | XMS_ITS | Clinical Summary ---
Author Organization [facility] Address [id number] [address] [id number] Care Team Providers Care Cargo Services Coordinator Name Role Phone Unavailable Primary Care Provider Unavailabl e Social History Tobacco Use Types Packs/Day Years Used Date Smoking Tobacco: Never Assessed Childcare Answer Date Recorded Childcare Unknown 08/29/2018 Employment Answer Date Recorded Employment Unknown 08/29/2018 Purpose - Life Answer Date Recorded Purpose and direction in life Unknown Comments Unknown Sex and Gender Information Value Date Recorded Sex Assigned at Not on file Legal Sex Female 12:12 PM EDT Gender Identity Not on file Sexual Orientation Not on file Plan of Treatment Not on file Medical Devices Not on file Insurance [employer]
--- OUTSIDE RECORDS SUMMARY | 2024-11-16 08:58 | XMS_ITS | Encounter Summary ---
Author Organization [facility] Address [address] [place] [address] Care Team Providers Care Webfocus Developer Name Role Phone Kami Olvera MD Primary Care Provider [phone] Jazzy Dunn RN Unavailable [phone] David House MD Unavailable [phone] Odette Lopez PA-C Unavailable [phone] Rubens Singh MD Unavailable [phone] Source Comments In the event this information is protected by the Federal Confidentiality of Alcohol and Drug AbusePatient Records regulations: The Federal rules restrict any use of the information to criminally investigate or prosecute any alcohol or drug abuse patient.[facility] Encounter Details Date Type Department Care Team (Late st Contact Info) Description 07/12/2021 Patient Nutrition Therapy [address] [id number] Provider, Ccf After Visit Information Social History Tobacco Use Types Packs/Day Years [...] N ot on file 02/23/2020 Data from: https://www.neighborhoodatlas.medicine.[facility].edu/. Last address used for calculation Not on [...] suspected to have Coronavirus/COVID-19? No / Unsure 07/13/2021 3:00 PM EDT documented as of this encounter [...] documented as of this encounter Care Teams Webfocus Developer Relationship Specialty Start Date End Date Kami Olvera MD [address] [facility] [place] [phone] PCP - General Family Medicine 02/01/17 Jazzy Dunn RN [address] [facility] [place] [address] Specialty Coding Quality Coordinator Hematology/Oncology 07/27/21 04/30/23 David House MD [address] [place] [address] [place] [address] Physician Hematology/Oncology 07/27/21 Odette Lopez PA-C [address] [facility] [place] [address] Physician Parts Delivery Driver Hematology/Oncology 07/27/21 Rubens Singh MD [address] [place] [address] Physician Hematology/Oncology 10/08/21 Fran [facility] Palliative Medicine Provider 08/30/21 documented as of this encounter
--- OUTSIDE RECORDS SUMMARY | 2024-11-16 08:58 | XMS_ITS | Encounter Summary ---
Author Organization [facility] Address [address] [place] [address] Care Team Providers Care Security Risk Analyst Name Role Phone Kami Olvera MD Primary Care Provider [phone] Jazzy Dunn RN Unavailable [phone] David House MD Unavailable [phone] Odette Lopez PA-C Unavailable [phone] Rubens Singh MD Unavailable [phone] Source Comments In the event this information is protected by the Federal Confidentiality of Alcohol and Drug AbusePatient Records regulations: The Federal rules restrict any use of the information to criminally investigate or prosecute any alcohol or drug abuse patient.[facility] Encounter Details Date Type Department Care Team (Latest Contact Info) Description 07/12/2021 H&P External-NonCCF Provider, REY Weber Do not enter address information under generic External Provider. Social History Tobacco Use Types Packs/Day Years [...] N ot on file 02/23/2020 Data from: https://www.neighborhoodatlas.medicine.[facility].edu/. Last address used for calculation [...] documented as of this encounter Care Teams Security Risk Analyst Relationship Specialty Start Date End Date Kami Olvera MD [address] [place] [address] PCP - General Family Medicine 02/01/17 Jazzy Dunn RN [address] [place] [place] [address] Specialty Communications Writer Hematology/Oncology 07/27/21 04/30/23 David House MD [address] [facility] [place] [address] Physician Hematology/Oncology 07/27/21 Odette Lopez PA-C [address] [facility] [place] [address] Physician Director Student Union Hematology/Oncology 07/27/21 Rubens Singh MD [address] [place] [address] Physician Hematology/Oncology 10/08/21 Fran [facility] Palliative Medicine Provider 08/30/21 documented as of this encounter
--- OUTSIDE RECORDS SUMMARY | 2024-11-16 08:58 | XMS_ITS | Encounter Summary ---
Author Organization [facility] Address [facility] [place] [address] Care Team Providers Care Targeteer Name Role Phone Kami Olvera MD Primary Care Provider [phone] Jazzy Dunn RN Unavailable [phone] David House MD Unavailable [phone] Odette Lopez PA-C Unavailable [phone] Rubens Singh MD Unavailable [phone] Source Comments In the event this information is protected by the Federal Confidentiality of Alcohol and Drug AbusePatient Records regulations: The Federal rules restrict any use of the information to criminally investigate or prosecute any alcohol or drug abuse patient.[facility] Encounter Details Date Type Department Care Team (Late st Contact Info) Description 06/04/2021 Patient Msg Head and Neck [place] [address] [place] [address] Provider, Ccf Appointment with Dr. Cavazos (07/14/21) Social History Tobacco Use Types Packs/Day Years [...] N ot on file 02/23/2020 Data from: https://www.neighborhoodatlas.medicine.[facility].edu/. Last address used for calculation [...] Author No 05/23/2021 7:10 PM EST Miranda Nieves RN * Are you blind or do [...] documented as of this encounter Care Teams Targeteer Relationship Specialty Start Date End Date Kami Olvera MD [address] [facility] [place] [phone] PCP - General Family Medicine 02/01/17 Jazzy Dunn RN [address] [facility] [place] [address] Specialty Wood Fence Installer Hematology/Oncology 07/27/21 04/30/23 David House MD [address] [facility] [place] [address] Physician Hematology/Oncology 07/27/21 Odette Lopez PA-C [address] [facility] [place] [address] Physician Ophthalmic Technician Apprentice Hematology/Oncology 07/27/21 Rubens Singh MD [address] [place] [address] Physician Hematology/Oncology 10/08/21 Fran [facility] Palliative Medicine Provider 08/30/21 documented as of this encounter
--- OUTSIDE RECORDS SUMMARY | 2024-11-16 08:58 | XMS_ITS | Encounter Summary ---
Author Organization [facility] Address [address] [place] [address] Care Team Providers Care House Painting Instructor Name Role Phone Kami Olvera MD Primary Care Provider [phone] Jazzy Dunn RN Unavailable [phone] David House MD Unavailable [phone] Odette Lopez PA-C Unavailable [phone] Rubens Singh MD Unavailable [phone] Source Comments In the event this information is protected by the Federal Confidentiality of Alcohol and Drug AbusePatient Records regulations: The Federal rules restrict any use of the information to criminally investigate or prosecute any alcohol or drug abuse patient.[facility] Encounter Details Date Type Department Care Team (Late st Contact Info) Description 02/17/2022 [place] [address] Provider, Ccf Schedule Imaging Follow Up Social History Tobacco Use Types Packs/Day Years [...] place to sleep or slept in a [place] health care facility (including now)? No 09/08/2021 Area Deprivation Index Answer Date Juan rded National Score (1-100), lower number is lower ri sk 66 08/05/2021 State Score (1-10), lower number is lower risk N ot on file 08/05/2021 Data from: https://www.neighborhoodatlas.medicine.[facility].edu/. Last address used for calculation [address] [...] suspected to have Coronavirus/COVID-19? No / Unsure 02/17/2022 12:04 PM EST documented as of this encounter [...] Entry Date Author No 06/23/2021 1:25 PM Sarah Payne RN documented in this encounter Plan of Treatment Not on file documented as of this encounter Visit Diagnoses Not on filedocumented in this encounter Care Teams House Painting Instructor Relationship Specialty Start Date End Date Kami Olvera MD [address] [place] [address] PCP - General Family Medicine 02/01/17 Jazzy Dunn RN [address] [facility] [place] [address] Specialty Orange Grower Hematology/Oncology 07/27/21 04/30/23 David House MD [address] [facility] [address] Physician Hematology/Oncology 07/27/21 Odette Lopez PA-C [address] [place] [address] [place] [address] Physician Purification Supervisor Hematology/Oncology 07/27/21 Rubens Singh MD [address] [place] [address] [place] [address] Physician Hematology/Oncology 10/08/21 Fran [facility] Palliative Medicine Provider 08/30/21 documented as of this encounter
--- OUTSIDE RECORDS SUMMARY | 2024-11-16 08:58 | XMS_ITS | Encounter Summary ---
Author Organization [facility] Address [address] [place] [address] Care Team Providers Care Signal Processing Engineer Name Role Phone Kami Olvera MD Primary Care Provider [phone] Jazzy Dunn RN Unavailable [phone] David House MD Unavailable [phone] Odette Lopez PA-C Unavailable [phone] Rubens Singh MD Unavailable [phone] Source Comments In the event this information is protected by the Federal Confidentiality of Alcohol and Drug AbusePatient Records regulations: The Federal rules restrict any use of the information to criminally investigate or prosecute any alcohol or drug abuse patient.[facility] Encounter Details Date Type Department Care Team (Late st Contact Info) Description 01/19/2021 Get Medical Advice BMI [facility] REJ [address] [place], [place] [phone] [place] [address] [place], [place] [phone] RE: Visit Follow Up Question Social History Tobacco Use Types Packs/Day Years [...] ot on file 02/23/2020 Data from: https://www.neighborhoodatlas.medicine.[facility].edu/. Last address used for calculation Not [...] have Coronavirus / COVID-19? No / Unsure 01/21/2021 12:56 PM EDT documented as of this encounter Functional Status * Are you deaf or do you have serious difficulty hearing? Answer Date of Assessment Author No 12/25/2020 11:22 AM EDT Era Medina, MORE * Are you blind or do you have serious difficulty seeing, even when wearing glasses? Answer Date of Assessment Author No 12/25/2020 11:22 AM NAYET Era Medina RN * Do you have serious difficulty walking or climbing stairs? Answer Date of Assessment Author No 12/25/2020 11:22 AM NAYET rEa Medina RN * Do you have difficulty dressing or bathing? Answer Date of Assessment Author No 12/25/2020 11:22 AM EDT Era Medina RN * Because of a physical, mental, or emotional condition, do you have difficulty doing errands alone such as visiting a doctor's office or shopping? Answer Date of Assessment Author No 12/25/2020 11:22 AM Era Krueger RN documented as of this encounter Mental Status * Because of a physical, mental, or emotional condition, do you have serious difficulty concentrating, remembering, or making decisions? Answer Entry Date Author No 12/25/2020 11:22 AM NAYET Era Medina RN documented in this encounter Plan of Treatment Not on file documented as of this encounter Visit Diagnoses Not on filedocumented in this encounter Additional Health Concerns Infection Onset Date Last Indicated Resolved Time COVID-19 Rule-Out 05/17/2021 05/17/2021 05/18/2021 12:29 AM EST COVID-19 Rule-Out 05/25/2021 05/25/2021 05/25/2021 11:03 PM EST COVID-19 Rule-Out 09/06/2021 09/06/2021 09/06/2021 6:38 AM EDT documented as of this encounter Care Teams Signal Processing Engineer Relationship Specialty Start Date End Date Kami Olvera MD [address] [place] [address] PCP - General Family Medicine 02/01/17 Jazzy Dunn RN [address] [place] [address] [place] [address] Specialty Aerospace Mechanic Hematology/Oncology 07/27/21 04/30/23 David House MD [address] [place] [address] [place] [address] Physician Hematology/Oncology 07/27/21 Odette Lopez PAPonchoC [address] [place] [address] [place] [address] Physician Director Special Education Hematology/Oncology 07/27/21 Rubens Singh MD [address] [place] [address] [place] [address] Physician Hematology/Oncology 10/08/21 Fran [facility] Palliative Medicine Provider 08/30/21 documented as of this encounter
--- OUTSIDE RECORDS SUMMARY | 2024-11-16 08:58 | XMS_ITS | Encounter Summary ---
Author Organization [facility] Address [address] [place] [address] Care Team Providers Care Police Liaison Officer Name Role Phone JustoDevonte page Primary Care Provider Kami Olvera MD Primary Care Provider [phone] Jazzy Dunn RN Unavailable [phone] David House MD Unavailable [phone] Odette Lopez PA-C Unavailable [phone] Rubens Singh MD Unavailable [phone] Source Comments In the event this information is protected by the Federal Confidentiality of Alcohol and Drug AbusePatient Records regulations: The Federal rules restrict any use of the information to criminally investigate or prosecute any alcohol or drug abuse patient.[facility] Encounter Details Date Type Department Care Team (Late st Contact Info) Description 03/05/2015 Patient g Neurology [address] [place] [id number] Lidia Jones PA-C [address] [place] [address] RE: Appointment Cancellation Request Social History Tobacco Use Types Packs/Day [...] hearing? Answer Date of Assessment Author No 10/23/2014 2:50 PM EDT Jason Ventura MA * Are you blind or do you have serious difficulty seeing, even when wearing glasses? Answer Date of Assessment Author No 10/23/2014 2:50 PM EDT Jason Ventura MA * Do you have serious difficulty walking or climbing stairs? Answer Date of Assessment Author No 10/23/2014 2:50 PM EDT Jason Ventura MA * Do you have difficulty dressing or bathing? Answer Date of Assessment Author No 10/23/2014 2:50 PM EDT Jason Ventura MA * Because of a physical, mental, or emotional condition, do you have difficulty doing errands alone such as visiting a doctor's office or shopping? Answer Date of Assessment Author No 10/23/2014 2:50 PM Jason Hillman MA documented as of this encounter Mental Status * Because of a physical, mental, or emotional condition, do you have serious difficulty concentrating, remembering, or making decisions? Answer Entry Date Author No 10/23/2014 2:50 PM Jason Hillman MA documented in this encounter Plan of Treatment Not on file documented as of this encounter Visit Diagnoses Not on filedocumented in this encounter Additional Health Concerns Infection Onset Date Last Indicated Resolved Time COVID-19 Rule-Out 09/07/2020 09/07/2020 09/08/2020 10:44 AM EDT COVID-19 Rule-Out 10/30/2020 10/30/2020 10/30/2020 10:55 PM EDT COVID-19 Rule-Out 12/15/2020 12/23/2020 12/23/2020 10:18 PM EDT COVID-19 Rule-Out 05/17/2021 05/17/2021 05/18/2021 12:29 AM EST COVID-19 Rule-Out 05/25/2021 05/25/2021 05/25/2021 11:03 PM EST COVID-19 Rule-Out 09/06/2021 09/06/2021 09/06/2021 6:38 AM EDT documented as of this encounter Care Teams Police Liaison Officer Relationship Specialty Start Date End Date Devonte Kemp DO PCP - General Family Medicine 05/03/13 01/31/17 Kami Olvera MD [address] [place] [address] PCP - General Family Medicine 02/01/17 Jazzy Dunn RN [address] [place] [address] Specialty Funeral Driver Hematology/Oncology 07/27/21 04/30/23 David House MD [address] [place] [address] [place] [address] Physician Hematology/Oncology 07/27/21 Odette Lopez PAPonchoC [address] [place] [address] [place] [address] Physician Pastry Cook Apprentice Hematology/Oncology 07/27/21 Rubens Singh MD [address] [place] [address] [place] [address] Physician Hematology/Oncology 10/08/[address] [facility] Palliative Medicine Provider 08/30/21 documented as of this encounter
--- OUTSIDE RECORDS SUMMARY | 2024-11-16 08:58 | XMS_ITS | Encounter Summary ---
Author Organization [facility] Address [address] [place] [address] Care Team Providers Care Reverberatory Furnace Supervisor Name Role Phone Kami Olvera MD Primary Care Provider [phone] Jazzy Dunn RN Unavailable [phone] David House MD Unavailable [phone] Odette Lopez PA-C Unavailable [phone] Rubens Singh MD Unavailable [phone] Source Comments In the event this information is protected by the Federal Confidentiality of Alcohol and Drug AbusePatient Records regulations: The Federal rules restrict any use of the information to criminally investigate or prosecute any alcohol or drug abuse patient.[facility] Encounter Details Date Type Department Care Team (Late st Contact Info) Description 03/11/2021 Get Medical Advice BMI [facility] REJ [address] [place], [place] [phone] [place] [address] [address] [place], [place] [phone] Work Release Social History Tobacco Use Types Packs/Day Years [...] N ot on file 02/23/2020 Data from: https://www.neighborhoodatlas.medicine.[facility].edu/. Last address used for calculation Not on [...] have Coronavirus / COVID-19? No / Unsure 03/08/2021 6:47 PM EST documented as of this encounter Functional Status * Are you deaf or do you have serious difficulty hearing? Answer Date of Assessment Author No 02/19/2021 11:35 AM EST Gabriela Roman RN * Are you blind or do you have serious difficulty seeing, even when wearing glasses? Answer Date of Assessment Author No 02/19/2021 11:35 AM Gabriela Lopez RN * Do you have serious difficulty walking or climbing stairs? Answer Date of Assessment Author No 02/19/2021 11:35 AM Gabriela Lopez RN * Do you have difficulty dressing or bathing? Answer Date of Assessment Author No 02/19/2021 11:35 AM Gabriela Lopez RN * Because of a physical, mental, or emotional condition, do you have difficulty doing errands alone such as visiting a doctor's office or shopping? Answer Date of Assessment Author No 02/19/2021 11:35 AM Gabriela Lopez RN documented as of this encounter Mental Status * Because of a physical, mental, or emotional condition, do you have serious difficulty concentrating, remembering, or making decisions? Answer Entry Date Author No 02/19/2021 11:35 AM Gabriela Lopez RN documented in this encounter Plan of [...] documented as of this encounter Care Teams Reverberatory Furnace Supervisor Relationship Specialty Start Date End Date Kami Olvera MD [address] [facility] [address] PCP - General Family Medicine 02/01/17 Jazzy Dunn RN [address] [place] [address] Specialty Charter Bus Driver Hematology/Oncology 07/27/21 04/30/23 David House MD [address] [place] [address] Physician Hematology/Oncology 07/27/21 Odette Lopez PAPonchoC [address] [place] [address] [place] [address] Physician Metalsmith Apprentice Hematology/Oncology 07/27/21 Rubens Singh MD [address] [place] [address] [place] [address] Physician Hematology/Oncology 10/08/21 Fran [facility] Palliative Medicine Provider 08/30/21 documented as of this encounter
--- OUTSIDE RECORDS SUMMARY | 2024-11-16 08:58 | XMS_ITS | Encounter Summary ---
Author Organization [facility] Address [address] [place] [address] Care Team Providers Care Manufacturing Engineer Assembly Name Role Phone Kami Olvera MD Primary Care Provider [phone] Jazzy Dunn RN Unavailable [phone] David House MD Unavailable [phone] Odette Lopez PA-C Unavailable [phone] Rubens Singh MD Unavailable [phone] Source Comments In the event this information is protected by the Federal Confidentiality of Alcohol and Drug AbusePatient Records regulations: The Federal rules restrict any use of the information to criminally investigate or prosecute any alcohol or drug abuse patient.[facility] Encounter Details Date Type Department Care Team (Late st Contact Info) Description 02/01/2021 Get Medical Advice BMI [facility] REJ [address] [place], [place] [phone] [place] [address] [address] [place], [place] [phone] Update Social History Tobacco Use Types Packs/Day [...] N ot on file 02/23/2020 Data from: https://www.neighborhoodatlas.medicine.[facility].edu/. Last address used for calculation [...] No 12/25/2020 11:22 AM Era Krueger RN * Do you have serious difficulty walking or climbing stairs? Answer Date of Assessment Author No 12/25/2020 11:22 AM Era Krueger RN * Do you have difficulty dressing or bathing? Answer Date of Assessment Author No 12/25/2020 11:22 AM Era Krueger RN * Because of a physical, mental, [...] Entry Date Author No 12/25/2020 11:22 AM Era Krueger RN documented in this encounter Plan of [...] documented as of this encounter Care Teams Manufacturing Engineer Assembly Relationship Specialty Start Date End Date Kami Olvera MD [address] [place] [address] PCP - General Family Medicine 02/01/17 Jazzy Dnun RN [address] [place] [address] Specialty Slack Cooper Hematology/Oncology 07/27/21 04/30/23 David House MD [address] [place] [address] Physician Hematology/Oncology 07/27/21 Odette Lopez PA-C [address] [place] [address] [place] [address] Physician Food And Beverage Server Hematology/Oncology 07/27/21 Rubens Singh MD [address] [place] [address] Physician Hematology/Oncology 10/08/21 Fran [facility] Palliative Medicine Provider 08/30/21 documented as of this encounter
--- OUTSIDE RECORDS SUMMARY | 2024-11-16 08:58 | XMS_ITS | Encounter Summary ---
Author Organization [facility] Address [address] [place] [address] Phone Care Team Providers Care Plug Cutter Name Role Phone Kami Olvera MD Primary Care Provider [phone] Encounter Details Date Type Department Care Team (Late st Contact Info) Description 08/23/2021 Orders Only [facility] [address] [place] [address] Conversion, Onbase Social History Tobacco Use Types [...] on filedocumented in this encounter Care Teams Plug Cutter Relationship Specialty Start Date End Date Kami Olvera MD [address] [place] [phone] PCP - General 03/20/99 documented as of this encounter
--- OUTSIDE RECORDS SUMMARY | 2024-11-16 08:58 | XMS_ITS | Encounter Summary ---
Author Organization [facility] Address [facility] [place] [address] Care Team Providers Care E Commerce Specialist Name Role Phone Kami Olvera MD Primary Care Provider [phone] Jazzy Dunn RN Unavailable [phone] David House MD Unavailable [phone] Odette Lopez PA-C Unavailable [phone] Rubens Singh MD Unavailable [phone] Source Comments In the event this information is protected by the Federal Confidentiality of Alcohol and Drug AbusePatient Records regulations: The Federal rules restrict any use of the information to criminally investigate or prosecute any alcohol or drug abuse patient.[facility] Encounter Details Date Type Department Care Team (Late st Contact Info) Description 07/29/2021 Lab Requisition [facility] Hospital Laboratory [facility] [place] [address] David House MD [address] [place] [address] [address] [place], [place] [id number] Person encountering health services to consult on behalf of another person Social History Tobacco Use Types Packs/Day Years [...] N ot on file 02/23/2020 Data from: https://www.neighborhoodatlas.medicine.[facility].edu/. Last address used for calculation Not [...] on file documented as of this encounter Procedures Procedure Name Priority Date/Time Associated Diagnosis Comments OUTSIDE SURG PATH SLIDE REVIEW Routine 07/29/2021 2:15 PM EDT Person encountering health services to consult on behalf of another person documented in this encounter Results * OUTSIDE SURG PATH SLIDE REVIEW (07/29/2021 2:15 PM EDT) Case Report Surgical Pathology Report Case: [id number] Authorizing Provider: David House MD Collected: 07/29/2021 02:15 PM Ordering Location: Hosp Lab Main Received: 07/29/2021 02:13 PM Pathologist: Sidney Garza V, MD, PhD Specimen: SLIDE(S), 17 SLIDES ([id number]) 09/08/2021 9:[address] [facility] FINAL DIAGNOSIS Materials from 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 - See comment. 09/08/2021 9:[address] [facility] at 2118 EDT Diagnosis Comment Histologic sections show fragments of lymph node with the architecture partially replaced by a lymphoma infiltrate with nodular pattern. There are neoplastic nodules completely surrounded by bands of dense collagen. In a background of small, mature lymphocytes, histiocytes and plasma cells there are large neoplastic cells with retracted cytoplasm and one or several large nuclei with mature chromatin and large eosinophilic nucleoli. According to the accompanying pathology report, flow cytometric immunophenotypic analysis performed on this specimen elsewhere identified no evidence of an abnormal population. Immunohistochemical stains received from the referring institution are reviewed at [facility]. The neoplastic cells are positive for CD30 and Pax5 (dim). They are negative for CD3, CD20, CD45. Chromogenic in-situ hybridization with probes for Shonna-Frank virus (EBV)-encoded small RNA (SURESH) has been performed at [facility] with appropriately staining controls. The neoplastic cells are negative. 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 Laboratory Developed Test (LDT) Disclaimer: Performance characteristics of immunohistochemical, immunofluorescent and chromogenic in-situ hybridization tests have been determined by the performing laboratory within [facility] s [facility]ak Keys[facility] Pathology and Laboratory Medicine [place] ([facility], [facility], [facility] or [facility]) in a manner consistent with CLIA requirements. One or more of these tests have not been cleared or approved by the FDA. [facility] is regulated under CLIA as qualified to perform high-complexity testing. These tests are used for clinical purposes. They should not be regarded as investigational or for research. Positive and negative controls stain appropriately. 09/08/2021 9:[address] [facility] Performing Lab Diagnostic interpretation performed at [facility], [address] [place] [address] CLIA# [id number] Metal Bending Machine Operator: Zachariah San M.D. 09/08/2021 9:[address] [facility] Blocks or Slides MICROSCOPE SLIDE / Unknown 07/29/2021 2:15 PM EDT 07/29/2021 2:13 PM EDT us David House MD SURGICAL PATHOLOGY Final Resu lt [facility] [address] [facility] [address] [place] [address], [place] documented in this encounter Visit Diagnoses Diagnosis Person encountering health services to consult on behalf of another person Other person consulting on behalf of another person documented in this encounter Additional Health Concerns Infection Onset Date Last Indicated Resolved Time COVID-19 Rule-Out 09/06/2021 09/06/2021 09/06/2021 6:38 AM EDT documented as of this encounter Care Teams E Commerce Specialist Relationship Specialty Start Date End Date Kami Olvera MD [address] [place] [phone] PCP - General Family Medicine 02/01/17 Jazzy Dunn RN [address] [place] [address] Specialty Electric Detector Operator Hematology/Oncology 07/27/21 04/30/23 David House MD [address] [place] [address] [place] [address] Physician Hematology/Oncology 07/27/21 Odette Lopez, PA-C [address] [place] [address] [place] [address] Physician Wheel Fitter Hematology/Oncology 07/27/21 Rubens Singh MD [address] [place] [address] [place] [address] Physician Hematology/Oncology 10/08/21 Fran [facility] Palliative Medicine Provider 08/30/21 documented as of this encounter
--- OUTSIDE RECORDS SUMMARY | 2024-11-16 08:58 | XMS_ITS | Encounter Summary ---
Author Organization [facility] Address [address] [place] [address] Care Team Providers Care Eeg Technician Name Role Phone Kami Olvera MD Primary Care Provider [phone] Jazzy Dunn RN Unavailable [phone] David House MD Unavailable [phone] Odette Lopez PA-C Unavailable [phone] Rubens Singh MD Unavailable [phone] Source Comments In the event this information is protected by the Federal Confidentiality of Alcohol and Drug AbusePatient Records regulations: The Federal rules restrict any use of the information to criminally investigate or prosecute any alcohol or drug abuse patient.[facility] Encounter Details Date Type Department Care Team (Late st Contact Info) Description 05/10/2021 Get Medical Advice BMI [facility] REJ [address] [place], [place] [id number] [place] [address] [address] [place], [place] [id number] Feeding Tube Social History Tobacco Use Types Packs/Day Years [...] N ot on file 02/23/2020 Data from: https://www.neighborhoodatlas.medicine.[facility].edu/. Last address used for calculation Not [...] have Coronavirus / COVID-19? No / Unsure 05/13/2021 3:49 PM EST documented as of this encounter [...] documented as of this encounter Care Teams Eeg Technician Relationship Specialty Start Date End Date Kami Olvera MD [address] [facility] [address] PCP - General Family Medicine 02/01/17 Jazzy Dunn RN [address] [place] [address] Specialty Television Camera Operator Hematology/Oncology 07/27/21 04/30/23 David House MD [address] [place] [address] Physician Hematology/Oncology 07/27/21 Odette Lopez PAPonchoC [address] [place] [address] [place] [address] Physician Ldr Nurse Hematology/Oncology 07/27/21 Rubens Singh MD [address] [place] [address] [place] [address] Physician Hematology/Oncology 10/08/21 Fran [facility] Palliative Medicine Provider 08/30/21 documented as of this encounter
--- OUTSIDE RECORDS SUMMARY | 2024-11-16 08:58 | XMS_ITS | Encounter Summary ---
Author Organization [facility] Address [address] [place] [address] Care Team Providers Care Imaging Technologist Name Role Phone Kami Olvera MD Primary Care Provider [phone] Jazzy Dunn RN Unavailable [phone] David House MD Unavailable [phone] Odette Lopez PA-C Unavailable [phone] Rubens Singh MD Unavailable [phone] Source Comments In the event this information is protected by the Federal Confidentiality of Alcohol and Drug AbusePatient Records regulations: The Federal rules restrict any use of the information to criminally investigate or prosecute any alcohol or drug abuse patient.[facility] Encounter Details Date Type Department Care Team (Late st Contact Info) Description 02/01/2021 Get Medical Advice BMI [facility] REJ [address] [place], [place] [phone] [place] [address] [address] [place], [place] [phone] Feed rate Social History Tobacco Use Types Packs/Day Years [...] N ot on file 02/23/2020 Data from: https://www.neighborhoodatlas.medicine.[facility].edu/. Last address used for calculation Not [...] documented as of this encounter Care Teams Imaging Technologist Relationship Specialty Start Date End Date Kami Olvera MD [address] [place] [address] PCP - General Family Medicine 02/01/17 Jazzy Dunn RN [address] [place] [address] Specialty Hearing Aid Mechanic Hematology/Oncology 07/27/21 04/30/23 David House MD [address] [place] [address] [place] [address] Physician Hematology/Oncology 07/27/21 Odette Lopez PA-C [address] [place] [address] [place] [address] Physician Dot Compliance Coordinator Hematology/Oncology 07/27/21 Rubens Singh MD [address] [place] [address] Physician Hematology/Oncology 10/08/21 Fran [facility] Palliative Medicine Provider 08/30/21 documented as of this encounter
--- OUTSIDE RECORDS SUMMARY | 2024-11-16 08:58 | XMS_ITS | Encounter Summary ---
Author Organization [facility] Address [address] [place] [address] Care Team Providers Care Truck Driving Instructor Name Role Phone Kami Olvera MD Primary Care Provider [phone] Jazzy Dunn RN Unavailable [phone] David House MD Unavailable [phone] Odette Lopez PA-C Unavailable [phone] Rubens Singh MD Unavailable [phone] Source Comments In the event this information is protected by the Federal Confidentiality of Alcohol and Drug AbusePatient Records regulations: The Federal rules restrict any use of the information to criminally investigate or prosecute any alcohol or drug abuse patient.[facility] Encounter Details Date Type Department Care Team (Late st Contact Info) Description 06/23/2021 Patient Msg Neurology [address] [place] [address] Kenia Lagos MD NO FORWARDING ADDRESS Follow Up Testing with your PCP Social History Tobacco Use Types Packs/Day Years [...] N ot on file 02/23/2020 Data from: https://www.neighborhoodatlas.medicine.[facility].edu/. Last address used for calculation Not [...] suspected to have Coronavirus/COVID-19? No / Unsure 06/22/2021 1:21 PM EDT documented as of this encounter [...] documented as of this encounter Care Teams Truck Driving Instructor Relationship Specialty Start Date End Date Kami Olvera MD [address] [place] [phone] PCP - General Family Medicine 02/01/17 Jazzy Dunn RN [address] [facility] [place] [address] Specialty Tong Setter Hematology/Oncology 07/27/21 04/30/23 David House MD [address] [place] [address] [place] [address] Physician Hematology/Oncology 07/27/21 Odette Lopez PA-C [address] [place] [address] [place] [address] Physician Automotive Technician Instructor Hematology/Oncology 07/27/21 Rubens Singh MD [address] [place], [place] [address] Physician Hematology/Oncology 10/08/21 Fran [facility] Palliative Medicine Provider 08/30/21 documented as of this encounter
--- OUTSIDE RECORDS SUMMARY | 2024-11-16 08:58 | XMS_ITS | Encounter Summary ---
Author Organization [facility] Address [address] [place] [address] Care Team Providers Care Crystal Cutter Name Role Phone Kami Olvera MD Primary Care Provider [phone] Jazzy Dunn RN Unavailable [phone] David House MD Unavailable [phone] Odette Lopez PA-C Unavailable [phone] Rubens Singh MD Unavailable [phone] Source Comments In the event this information is protected by the Federal Confidentiality of Alcohol and Drug AbusePatient Records regulations: The Federal rules restrict any use of the information to criminally investigate or prosecute any alcohol or drug abuse patient.[facility] Encounter Details Date Type Department Care Team (Late st Contact Info) Description 12/14/2020 Patient BMI [facility] REJ [address] [place] [address] Provider, Ccf Preop Information Social History Tobacco Use Types Packs/Day [...] have Coronavirus / COVID-19? No / Unsure 12/16/2020 3:32 PM EDT documented as of this encounter Functional Status * Are you deaf or do you have serious difficulty hearing? Answer Date of Assessment Author No 11/03/2020 12:53 PM EDT Lily Rodrigues RN * Are you blind or do you have serious difficulty seeing, even when wearing glasses? Answer Date of Assessment Author No 11/03/2020 12:53 PM EDT Lily Rodrigues RN * Do you have serious difficulty walking or climbing stairs? Answer Date of Assessment Author No 11/03/2020 12:53 PM EDT Lily Rodrigues RN * Do you have difficulty dressing or bathing? Answer Date of Assessment Author No 11/03/2020 12:53 PM EDT Lily Rodrigues RN * Because of a physical, mental, or emotional condition, do you have difficulty doing errands alone such as visiting a doctor's office or shopping? Answer Date of Assessment Author No 11/03/2020 12:53 PM EDT Lily Rodrigues RN documented as of this encounter Mental Status * Because of a physical, mental, or emotional condition, do you have serious difficulty concentrating, remembering, or making decisions? Answer Entry Date Author No 11/03/2020 12:53 PM EDT Lily Rodrigues RN documented in this encounter Plan of Treatment Not on file documented as of this encounter Visit Diagnoses Not on filedocumented in this encounter Additional Health Concerns Infection Onset Date Last Indicated Resolved Time COVID-19 Rule-Out 12/15/2020 12/23/2020 12/23/2020 10:18 PM EDT COVID-19 Rule-Out 05/17/2021 05/17/2021 05/18/2021 12:29 AM EST COVID-19 Rule-Out 05/25/2021 05/25/2021 05/25/2021 11:03 PM EST COVID-19 Rule-Out 09/06/2021 09/06/2021 09/06/2021 6:38 AM EDT documented as of this encounter Care Teams Crystal Cutter Relationship Specialty Start Date End Date Kami Olvera MD [address] [place] [phone] PCP - General Family Medicine 02/01/17 Jazzy Dunn RN [address] [place], [place] [address] Specialty Flotation Tank Operator Hematology/Oncology 07/27/21 04/30/23 David House MD [address] [place] [address] Physician Hematology/Oncology 07/27/21 Odette Lopez PA-C [address] [place] [address] [place] [address] Physician Hat Copyist Hematology/Oncology 07/27/21 Rubens Singh MD [address] [place] [address] Physician Hematology/Oncology 10/08/21 Fran [facility] Palliative Medicine Provider 08/30/21 documented as of this encounter
--- OUTSIDE RECORDS SUMMARY | 2024-11-16 08:58 | XMS_ITS | Encounter Summary ---
Author Organization [facility] Address [address] [place] [address] Care Team Providers Care Cutter First Name Role Phone Kami Olvera MD Primary Care Provider [phone] Jazzy Dunn RN Unavailable [phone] David House MD Unavailable [phone] Odette Lopez PA-C Unavailable [phone] Rubens Singh MD Unavailable [phone] Source Comments In the event this information is protected by the Federal Confidentiality of Alcohol and Drug AbusePatient Records regulations: The Federal rules restrict any use of the information to criminally investigate or prosecute any alcohol or drug abuse patient.[facility] Encounter Details Date Type Department Care Team (Late st Contact Info) Description 05/24/2021 Get Medical Advice BMI [facility] REJ [address] [place], [place] [phone] [place] [address] [address] [place], [place] [phone] Feeding Tube Social History Tobacco Use Types [...] N ot on file 02/23/2020 Data from: https://www.neighborhoodatlas.medicine.[facility].edu/. Last address used for calculation Not [...] glasses? Answer Date of Assessment Author No 05/23/2021 7:10 PM Miranda Alonzo RN * Do you have serious difficulty walking or climbing stairs? Answer Date of Assessment Author No 05/23/2021 7:10 PM Miranda Alonzo RN * Do you have difficulty dressing or bathing? Answer Date of Assessment Author No 05/23/2021 7:10 PM Miranda Alonzo RN * Because of a physical, mental, or emotional condition, do you have difficulty doing errands alone such as visiting a doctor's office or shopping? Answer Date of Assessment Author No 05/23/2021 7:10 PM Miranda Alonzo RN documented as of this encounter Mental Status * Because of a physical, mental, or emotional condition, do you have serious difficulty concentrating, remembering, or making decisions? Answer Entry Date Author No 05/23/2021 7:10 PM Miranda Alonzo RN documented in this encounter Plan of Treatment Not on file documented as of this encounter Visit Diagnoses Not on filedocumented in this encounter Additional Health Concerns Infection Onset Date Last Indicated Resolved Time COVID-19 Rule-Out 05/25/2021 05/25/2021 05/25/2021 11:03 PM EST COVID-19 Rule-Out 09/06/2021 09/06/2021 09/06/2021 6:38 AM EDT documented as of this encounter Care Teams Cutter First Relationship Specialty Start Date End Date Kami Olvera MD [address] [place] [address] PCP - General Family Medicine 02/01/17 Jazzy Dunn RN [address] [facility] [place] [address] Specialty Hoisting Machine Operator Hematology/Oncology 07/27/21 04/30/23 David House MD [address] [place] [address] Physician Hematology/Oncology 07/27/21 Odette Lopez PA-C [address] [place] [address] [place] [address] Physician Commercial Subcontractor Hematology/Oncology 07/27/21 Rubens Singh MD [address] [place] [address] Physician Hematology/Oncology 10/08/21 Fran [facility] Palliative Medicine Provider 08/30/21 documented as of this encounter
--- OUTSIDE RECORDS SUMMARY | 2024-11-16 08:58 | XMS_ITS | Encounter Summary ---
Author Organization [facility] Address [address] [place] [address] Care Team Providers Care Esl Instructor Name Role Phone Kami Olvera MD Primary Care Provider [phone] Jazzy Dunn RN Unavailable [phone] David House MD Unavailable [phone] Odette Lopez PA-C Unavailable [phone] Rubens Singh MD Unavailable [phone] Source Comments In the event this information is protected by the Federal Confidentiality of Alcohol and Drug AbusePatient Records regulations: The Federal rules restrict any use of the information to criminally investigate or prosecute any alcohol or drug abuse patient.[facility] Encounter Details Date Type Department Care Team (Late st Contact Info) Description 10/27/2020 Patient Msg Pre Anesthesia [address] [place], [place] [phone] Deonna Shepard PA-C [address] [place] [address] Medications day of procedure Social History Tobacco Use Types Packs/Day Years [...] N ot on file 02/23/2020 Data from: https://www.neighborhoodatlas.medicine.[facility].edu/. Last address used for [...] have Coronavirus / COVID-19? No / Unsure 10/30/2020 1:11 PM EDT documented as of this encounter [...] Lily Palma RN * Do you have serious difficulty [...] Entry Date Author No 09/13/2020 10:40 AM NAYET Lily Rodrigues RN documented in this encounter [...] documented as of this encounter Care Teams Esl Instructor Relationship Specialty Start Date End Date Kami Olvera MD [address] [place] [address] PCP - General Family Medicine 02/01/17 Jazzy Dunn, RN [address] [place] [address] [place] [address] Specialty Computer Consultant Hematology/Oncology 07/27/21 04/30/23 David House MD [address] [place] [address] [place] [address] Physician Hematology/Oncology 07/27/21 Odette Lopez, PA-C [address] [place] [address] [place] [address] Physician Software Performance Engineer Hematology/Oncology 07/27/21 Rubens Singh MD [address] [place] [address] [place] [address] Physician Hematology/Oncology 10/08/21 Fran [facility] Palliative Medicine Provider 08/30/21 documented as of this encounter
--- OUTSIDE RECORDS SUMMARY | 2024-11-16 08:58 | XMS_ITS | Clinical Summary ---
Author Organization [facility] Address [address] [place] [address] Care Team Providers Care Youth Support Worker Name Role Phone Devonte Kemp DO Primary Care Provider [phone] Allergies Active Allergy Reactions Criticality Noted Date [...] Advance Directives For more information, please contact: [phone] * Full Code - Unverified (Latest Code Status on File) Date Activated Date Inactivated Comments 10/31/2015 5:36 PM 11/12/2015 7:47 PM Care Teams Youth Support Worker Relationship Specialty Start Date End Date Devonte Kemp DO PCP - General Endocrinology/Metabolism 10/19/15
--- OUTSIDE RECORDS SUMMARY | 2024-11-16 08:58 | XMS_ITS ---
Author Organization [facility] Address [facility] [place] [address] Care Team Providers Care Child Development Teacher Name Role Phone Kami Olvera MD Primary Care Provider [phone] David House MD Unavailable [phone] Rubens Singh MD Unavailable [phone] Active Problems * This document contains information received from the source organization and may not represent a complete record from that organization. Patient Care Coordination No te Formatting of this note is d ifferent from the original. 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 Pt was here replacement of GJ tube this morning. Tube was to be changed given abd pain and leakage with tube feeding. Received morphine 4mg and versed 2mg for procedure given increased discomfort during procedure. Pt was decreased responsiveness was given flumazenil and narcan. Mental status did not improve and patient was intubated without incident. Did note to have increased secretions post intubation. Transferred to ICU for further work up. Of note, patient has had episode of change in mental status with sedation in both October and December of 2020. Was intubated during October admission- EEG was negative for seizure- did have episodes of tremors that were negative for seizure during those episodes. Significant New Events Past 24 hrs: 05/19: Pt tried on CPAP yesterday with episodes of apnea. This morning , all sedation held. CPAP 5/5. Pt has multiple episodes where she would be wide awake, nodding to questions and trying to write and then periods of apnea with unresponsiveness. Her O2 sat would drop only with prolonged apnea. Her HR and bp remained the same. Pt did have tremors, but EEG read neg during these intermittent episodes. She was extubated to NV, then became anxious, tearful, saying she couldn't breathe. She then had the same episodes of apnea and no stridor noted, no increased work of breathing, nor any change in breathing effort. HFNC 40% 60L placed. Pt mother at bedside and states pt had this happen with previous sedation and it took time for her to recover and once she recovered the patient didn't remember anything. Psych and neuro consulted. 05/20: Hoarse voice this am, weaned to RA. HR 117, bp stable. Stating TF is hurting her abdomen. TF held overnight. IR looked at KUB and said GJ tube is in place. TF resumed at lower rate and will increase as tolerated. 05/21: Voice improved, on RA. VSS. Tolerating TF at goal, will switch to nocturnal TF which she was on at home. Awaiting transfer to the floor. A/P of Major Active Problems: #Acute hypoxic resp failure 2/2 sedation #Tremors #Apnea events BEM without seizures even during episodes of apnea and tremors /2 extubated to HFNC Plan - on RA - Apnea- unclear reason - ?conversion disorder - psych signed off, pt will need outpatient psychotherapy for conversion disorder - neuro following-no AEDs needed at this time, no seizures noted on BEM. #H/o CBD stricture #S/p jtube placement #Severe protein calorie Malnutrition Plan: - switch to nocturnal TF - monitor site- c/d/i - nutrition consult #Depression #Conversion disorder Plan - resume effexor and wellbutrin Barriers to transfer out of MICU- Day 2 transfer to the floor Problem Noted Date Diagnosed Date Cellulitis at gastrostomy tube site 09/06/2021 Overview (09/07/2021): Assessment- patient with pus from around PEG tube site Plan EGD with removal in am Generalized pain 09/06/2021 Overview (09/07/2021): Patient c/o general body aches Follows pal med OP Dr House started patient on MS contin 15mg BID and was referred to Palliative medicine She follows with Palliative medicine and MS Contin was increased to q8h - Pall med consult - Continue MS Contin 15 Q8 - C/W lidocaine patch 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 CT scans at that time showed evidence of right supraclavicular and superior mediastinal lymphadenopathy. July 07, 2021 CT chest notable for enlarged right supraclavicular approximately 3.2 cm, enlarged thymus and superior mediastinal lymphadenopathy July 15, 2021 PET scan with uptake in the supraclavicular and anterior mediastinal lymphadenopathy (max SUV 4.8) and subcentimeter hypermetabolic nodules localized within the thymus July 21, 2021 right supraclavicular node excision biopsy consistent with nodular sclerosis classical Hodgkin's lymphoma; flow cytometry negative for clonal lymphoproliferative disorder; IHC positive for CD30 and PAX5, and negative for CD45, CD20, and CD3 August 09, 2021 start cycle 1-day 1 Adriamycin, Bleomycin, Vinblastine and Dacarbazine (ABVD) with leuprolide for ovarian suppression August 13, 2021 echocardiogram with normal LVEF 60% - PPX: acyclovir and bactrim - Will need F/U with Dr House [was do for chemo yesterday] scheduled Sunday 09/10 for 10am 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 Planning conversion to J tube on 02/18 Psychogenic nonepileptic seizure 02/16/2021 Assessment & Plan (02/16/2021 11:07 AM EST): H/O psychogenic nonepileptic seizures, last occurring in 2018 per patient. States that her episode of jaw clenching following surgery in October was different than her previous seizure-like activity. She had normal EEG in October. Sinusitis 02/16/2021 Assessment & Plan (02/16/2021 11:05 AM EST): Recent sinus infection, completed antibiotics two days ago and steroids three days ago. Will message Dr. Pineda to confirm that he is agreeable to proceed. History of recent steroid use 02/16/2021 Assessment & Plan (02/16/2021 11:05 AM EST): Received medrol kaylin with sinusitis, last dose approximately 02/13/21 History of anesthesia complications 02/16/2021 Assessment & Plan (02/16/2021 11:03 AM EST): Complex history of anesthesia complications detailed below. Most recently with serotonin syndrome in December but also had episode of jaw clenching following surgery in October, both requiring admission and monitoring. Additionally has history of being difficult to sedate, PONV and occasional poor IV access. Will notify [facility] of patient history. Depression 02/16/2021 Overview (09/07/2021): - C/W Wellbutrin and effexor Assessment & Plan (02/16/2021 11:07 AM EST): Typically on welbutrin and effexor but states that she was instructed to hold her effexor one week prior to surgery per her neurologist. Malnutrition of moderate degree 12/23/2020 Overview (09/07/2021): Improved PO intake, off tube feed for weeks Weight stable - Consult to nutrition for intake assessment - Regular diet - DC PEG Serotonin syndrome 12/22/2020 Assessment & Plan (02/16/2021 11:04 AM EST): See anesthesia complications above. Occurred in December 2020 following PEG placement. Patient states she was instructed by her neurologist to hold effexor one week prior to surgery to avoid recurrent episode. Migraine 10/27/2020 Assessment & Plan (02/16/2021 11:06 AM EST): H/O migraines managed with emgality monthly. Does present with hemiplegic symptoms. Assessment & Plan (10/27/2020 4:00 PM EDT): Assessment: Stayulianaie on Emgality once a month. Has Maxalt for use PRN Nausea 10/27/2020 Mild protein-calorie malnutrition 09/12/2020 Assessment & Plan (06/03/2021 12:45 PM EDT): Assessment: On cyclic TF pre op PLAN: peg leaking, consult Gen surg, TF as ordered PEG/J not replaced and peg will be replaced outpatient, sutured a bumper, balloon deflated to 5 cc no leak, trial oral intake failed Injury to bile duct and gallbladder, initial enc ounter 01/24/2017 PFO (patent foramen ovale) 02/03/2015 Tachycardia 10/23/2014 Overview (09/07/2021): On metop XL OP - Resume metop Conversion disorder with abnormal movement 09/20 Migraine with aura, with int ractable migraine, so stated, without mention of status migrainosus 07/09/2013 Pituitary neoplasm 08/30/2011 Current Treatment and Therapy Plans No current plan information found. Past Treatment and Therapy Plans NON-CHEMO 1 Plan Name Start Date Discontinue Date Treatment Medications Discontinue Reason Plan Provider Cycles AMB LEUPROLIDE 3.75 D1 - MONTHLY 08/23/2021 02/17/2022 leuprolide (LUPRON DEPOT) Treatment Complete David House MD 6 of 12 cycles started AMB LEUPROLIDE 7.5 D1 - Q30D 2 08/23/2021 leuprolide (LUPRON DEPOT) Other David House MD 1 of 13 cycles started NON-CHEMO 2 Plan Name Start Date Discontinue Date Treatment Medications Discontinue Reason Plan Provider Cycles AMB HYDRATION - ONCE 11/26/2021 09/24/2022 No medications scheduled. Other Odetet Lopez PA-C 1 of 1 cycle started ONCOLOGY REGIMEN Plan Name Start Date Discontinue Date Treatment Medications Discontinue Reason Plan Provider Cycles AMB ABVD - DOXORUBICIN 25 VINBLASTINE 6 BLEOMYCIN 10 DACARBAZINE 375 D1,15 - Q28D 2 02/17/2022 bleomycin iv piggyback (BLENOXANE)dac arbazine iv piggyback (DTIC-DOME)DOX Orubicin (ADRIAMYCIN)fo saprepitant (EMEND)fosapre pitant iv piggyback in NaCl 0.9% (EMEND)palonos etron (ALOXI)vinBLAS juliet (VELBAN) Treatment Complete Rubens Singh MD 6 of 6 cycles started Lifetime Dose Tracking * Chemical Lifetime Dose Automatic Entry Manual Entr y doxorubicin 324.339 mg/m2 (598.5 mg) 324.339 mg/m2 (5 98.5 mg) 0 mg/m2 (0 mg) bleomycin 73.2 Units 73.2 Units 0 Units Resolved Problems Problem Noted Date Diagnosed Date Resolved Date Febrile neutropenia 09/06/2021 09/09/19 22 Overview (09/07/2021): Afebrile since admission Source likely PEG tube site Abd culture GPC + rare yeast - BCx in process - Doxy for 10 day course - PEG tube removal tomorrow Altered mental status 10/31/20202020 Diarrhea 10/27/2020 02/16/2021 RUQ pain 09/07/2020 02/16/2021 Choledocholithiasis 04/24/2019 04/30/19 Abdominal pain 01/16/2018 02/16/2021 Nonspecific abnormal results of endocrine function study 10/14/2009 02/16/2021 Postural dizziness 10/14/2009
--- OUTSIDE RECORDS SUMMARY | 2024-11-16 08:58 | XMS_ITS | Encounter Summary ---
Author Organization [facility] Address [address] [place] [address] Care Team Providers Care Inventory Control Associate Name Role Phone Kami Olvera MD Primary Care Provider [phone] Jazzy Dnun RN Unavailable [phone] David House MD Unavailable [phone] Odette Lopez PA-C Unavailable [phone] Rubens Singh MD Unavailable [phone] Source Comments In the event this information is protected by the Federal Confidentiality of Alcohol and Drug AbusePatient Records regulations: The Federal rules restrict any use of the information to criminally investigate or prosecute any alcohol or drug abuse patient.[facility] Encounter Details Date Type Department Care Team (Late st Contact Info) Description 06/28/2021 Get Medical Advice General Surgery [address] [place], [place] [id number] Kapil Mccauley MD [address] [place] [address] Work Release Social History Tobacco Use Types [...] ot on file 02/23/2020 Data from: https://www.neighborhoodatlas.medicine.[facility].edu/. Last address used for calculation Not [...] documented as of this encounter Care Teams Inventory Control Associate Relationship Specialty Start Date End Date Kami Olvera MD [address] [place] [address] PCP - General Family Medicine 02/01/17 Jazzy Dunn RN [address] [place] [address] Specialty Corporate Statistical Financial Analyst Hematology/Oncology 07/27/21 04/30/23 David House MD [address] [facility] [place] [address] Physician Hematology/Oncology 07/27/21 Odette Lopez, PAPonchoC [address] [place] [address] [place] [address] Physician Station Repairer Hematology/Oncology 07/27/21 Rubens Singh MD [address] [place] [address] [place] [address] Physician Hematology/Oncology 10/08/21 [facility] Palliative Medicine Provider 08/30/21 documented as of this encounter
--- OUTSIDE RECORDS SUMMARY | 2024-11-16 08:58 | XMS_ITS | Encounter Summary ---
Author Organization [facility] Address [address] [place] [address] Care Team Providers Care Leadite Worker Name Role Phone JustoDevonte page Primary Care Provider Kami Olvera MD Primary Care Provider [phone] Jazzy Dunn RN Unavailable [phone] David House MD Unavailable [phone] Odette Lopez PA-C Unavailable [phone] Rubens Singh MD Unavailable [phone] Source Comments In the event this information is protected by the Federal Confidentiality of Alcohol and Drug AbusePatient Records regulations: The Federal rules restrict any use of the information to criminally investigate or prosecute any alcohol or drug abuse patient.[facility] Encounter Details Date Type Department Care Team (Late st Contact Info) Description 10/19/2014 Get Medical Advice Neurology [address] [place] [id number] Lidia Jones PA-C [address] [place] [address] RE: Upcoming Appointment Question Social History Tobacco Use Types Packs/Day Years Used Date Smoking Tobacco: Never Alcohol Use Standard Drinks/Week Comments Not Asked 0 (1 standard drink = 0.6 oz [...] hearing? Answer Date of Assessment Author No 09/23/2014 3:11 PM EDT Jason Ventura MA * Are you blind or do you have serious difficulty seeing, even when wearing glasses? Answer Date of Assessment Author No 09/23/2014 3:11 PM NAYET Jason Ventura MA * Do you have serious difficulty walking or climbing stairs? Answer Date of Assessment Author No 09/23/2014 3:11 PM EDT Jason Ventura MA * Do you have difficulty dressing or bathing? Answer Date of Assessment Author No 09/23/2014 3:11 PM NAYET Jason Ventura MA * Because of a physical, mental, or emotional condition, do you have difficulty doing errands alone such as visiting a doctor's office or shopping? Answer Date of Assessment Author No 09/23/2014 3:11 PM Jason Hillman MA documented as of this encounter Mental Status * Because of a physical, mental, or emotional condition, do you have serious difficulty concentrating, remembering, or making decisions? Answer Entry Date Author No 09/23/2014 3:11 PM Jason Hillman MA documented in this [...] documented as of this encounter Care Teams Leadite Worker Relationship Specialty Start Date End Date Devonte Kemp DO PCP - General Family Medicine 05/03/13 01/31/17 Kami Olvera MD [address] [place] [address] PCP - General Family Medicine 02/01/17 Jazzy Dunn RN [address] [place] [address] Specialty Flap Lining Binder Hematology/Oncology 07/27/21 04/30/23 David House MD [address] [place], [place] [address] [facility] [address] Physician Hematology/Oncology 07/27/21 Odette Lopez, PA-C [address] [place] [address] Physician Curtain Mender Hematology/Oncology 07/27/21 Rubens Singh MD [address] [facility] [place] [address] Physician Hematology/Oncology 10/08/21 [facility] Palliative Medicine Provider 08/30/21 documented as of this encounter
--- OUTSIDE RECORDS SUMMARY | 2024-11-16 08:58 | XMS_ITS | Encounter Summary ---
Author Organization [facility] Address [address] [place] [address] Care Team Providers Care Respiratory Support Technician Name Role Phone Kami Olvera MD Primary Care Provider [phone] Jazzy Dunn RN Unavailable [phone] David House MD Unavailable [phone] Odette Lopez PA-C Unavailable [phone] Rubens Singh MD Unavailable [phone] Source Comments In the event this information is protected by the Federal Confidentiality of Alcohol and Drug AbusePatient Records regulations: The Federal rules restrict any use of the information to criminally investigate or prosecute any alcohol or drug abuse patient.[facility] Encounter Details Date Type Department Care Team (Late st Contact Info) Description 12/28/2020 Get Medical Advice BMI [facility] [address] [address] [place], [place] [id number] [place] [address] [place], [place] [id number] RE: Non-Urgent Medical Question Social History Tobacco Use Types Packs/Day [...] on file 02/23/2020 Data from: https://www.neighborhoodatlas.medicine.[facility].edu/. Last address used for calculation Not on [...] have Coronavirus / COVID-19? No / Unsure 12/31/2020 11:20 AM EDT documented as of this encounter [...] Era Medina RN * Do you have difficulty [...] documented as of this encounter Care Teams Respiratory Support Technician Relationship Specialty Start Date End Date Kami Olvera MD [address] [place] [address] PCP - General Family Medicine 02/01/17 Jazzy Dunn RN [address] [place] [address] [place] [address] Specialty Core Mounter Hematology/Oncology 07/27/21 04/30/23 David House MD [address] [place] [address] [place] [address] Physician Hematology/Oncology 07/27/21 Odette Lopez PAPonchoC [address] [place] [address] [place] [address] Physician Underwear Trimmer Hematology/Oncology 07/27/21 Rubens Singh MD [address] [place] [address] [place] [address] Physician Hematology/Oncology 10/08/21 [facility] Palliative Medicine Provider 08/30/21 documented as of this encounter
--- OUTSIDE RECORDS SUMMARY | 2024-11-16 08:58 | XMS_ITS | Encounter Summary ---
Author Organization [facility] Address [address] [place] [address] Care Team Providers Care Stroke Program Coordinator Name Role Phone Kami Olvera MD Primary Care Provider [phone] Jazzy Dunn RN Unavailable [phone] David House MD Unavailable [phone] Odette Lopez PA-C Unavailable [phone] Rubens Singh MD Unavailable [phone] Source Comments In the event this information is protected by the Federal Confidentiality of Alcohol and Drug AbusePatient Records regulations: The Federal rules restrict any use of the information to criminally investigate or prosecute any alcohol or drug abuse patient.[facility] Encounter Details Date Type Department Care Team (Late st Contact Info) Description 08/17/2021 Patient Msg General Surgery [address] [place] [address] Sarah Juarez RN EGD Social History Tobacco Use Types Packs/Day Years [...] N ot on file 08/05/2021 Data from: https://www.neighborhoodatlas.medicine.[facility].edu/. Last address used for calculation [address] [...] was confirmed or suspected to have Coronavirus/COVID-19? Unable to assess 08/17/2021 11:47 AM EDT documented as of this encounter Functional Status * Are you deaf or do you have serious difficulty hearing? Answer Date of Assessment Author No 06/23/2021 1:25 PM EDT Sarah Hill, MORE * Are you blind or do [...] documented as of this encounter Care Teams Stroke Program Coordinator Relationship Specialty Start Date End Date Kami Olvera MD [address] [facility] [place] [address] PCP - General Family Medicine 02/01/17 Jazzy Dunn RN [address] [facility] [place] [address] Specialty Seat Scooper Machine Hematology/Oncology 07/27/21 04/30/23 David House MD [address] [place] [address] [place] [address] Physician Hematology/Oncology 07/27/21 Odette Lopez PA-C [address] [facility] [place] [address] Physician Farmhand Hematology/Oncology 07/27/21 Rubens Singh MD [address] [place] [address] Physician Hematology/Oncology 10/08/21 [facility] Palliative Medicine Provider 08/30/21 documented as of this encounter
--- OUTSIDE RECORDS SUMMARY | 2024-11-16 08:58 | XMS_ITS | Encounter Summary ---
Author Organization [facility] Address [address] [place] [address] Care Team Providers Care Correctional Officer Name Role Phone Kami Olvera MD Primary Care Provider [phone] Jazzy Dunn RN Unavailable [phone] David House MD Unavailable [phone] Odette Lopez PA-C Unavailable [phone] Rubens Singh MD Unavailable [phone] Source Comments In the event this information is protected by the Federal Confidentiality of Alcohol and Drug AbusePatient Records regulations: The Federal rules restrict any use of the information to criminally investigate or prosecute any alcohol or drug abuse patient.[facility] Encounter Details Date Type Department Care Team (Late st Contact Info) Description 01/12/2021 Patient Msg Gastroenterology [address] [place], [place] [id number] [place] [address] [place] [address] RE: Appointment Request Social History Tobacco Use Types [...] ot on file 02/23/2020 Data from: https://www.neighborhoodatlas.medicine.[facility].edu/. Last address used for calculation Not [...] have Coronavirus / COVID-19? No / Unsure 01/13/2021 8:23 AM EDT documented as of this encounter [...] documented as of this encounter Care Teams Correctional Officer Relationship Specialty Start Date End Date Kami Olvera MD [address] [place] [address] PCP - General Family Medicine 02/01/17 Jazzy Dunn RN [address] [place] [address] Specialty Supervisor Webbing Hematology/Oncology 07/27/21 04/30/23 David House MD [address] [place] [address] [place] [address] Physician Hematology/Oncology 07/27/21 Odette Lopez PA-C [address] [place] [address] [place] [address] Physician Mixer Driver Hematology/Oncology 07/27/21 Rubens Singh MD [address] [place] [address] Physician Hematology/Oncology 10/08/21 [facility] Palliative Medicine Provider 08/30/21 documented as of this encounter
--- OUTSIDE RECORDS SUMMARY | 2024-11-16 08:58 | XMS_ITS | Encounter Summary ---
Author Organization [facility] Address [address] [place] [address] Care Team Providers Care Solvent Station Attendant Name Role Phone Kami Olvera MD Primary Care Provider [phone] Jazzy Dunn RN Unavailable [phone] David House MD Unavailable [phone] Odette Lopez PA-C Unavailable [phone] Rubens Singh MD Unavailable [phone] Source Comments In the event this information is protected by the Federal Confidentiality of Alcohol and Drug AbusePatient Records regulations: The Federal rules restrict any use of the information to criminally investigate or prosecute any alcohol or drug abuse patient.[facility] Encounter Details Date Type Department Care Team (Late st Contact Info) Description 03/11/2021 Get Medical Advice BMI [facility] REJ [address] [place], [place] [phone] [place] [address] [place], [place] [id number] Work Release Social History Tobacco Use Types [...] N ot on file 02/23/2020 Data from: https://www.neighborhoodatlas.medicine.[facility].edu/. Last address used for calculation Not [...] documented as of this encounter Care Teams Solvent Station Attendant Relationship Specialty Start Date End Date Kami Olvera MD [address] [facility] [place] [address] PCP - General Family Medicine 02/01/17 Jazzy Dunn RN [address] [place] [address] Specialty Operating Room Specialist Hematology/Oncology 07/27/21 04/30/23 David House MD [address] [place] [address] Physician Hematology/Oncology 07/27/21 Odette Lopez PAPonchoC [address] [place] [address] [place] [address] Physician Rn Telephone Triage Hematology/Oncology 07/27/21 Rubens Singh MD [address] [place] [address] [place] [address] Physician Hematology/Oncology 10/08/21 Fran [facility] Palliative Medicine Provider 08/30/21 documented as of this encounter
--- OUTSIDE RECORDS SUMMARY | 2024-11-16 08:58 | XMS_ITS | Encounter Summary ---
Author Organization [facility] Address [address] [place] [address] Care Team Providers Care Manager Human Capital Name Role Phone Kami Olvera MD Primary Care Provider +[phone] Jazzy Dunn RN Unavailable [phone] David House MD Unavailable [phone] Odette Lopez PA-C Unavailable [phone] Rubens Singh MD Unavailable [phone] Source Comments In the event this information is protected by the Federal Confidentiality of Alcohol and Drug AbusePatient Records regulations: The Federal rules restrict any use of the information to criminally investigate or prosecute any alcohol or drug abuse patient.[facility] Encounter Details Date Type Department Care Team (Late st Contact Info) Description 01/21/2021 Get Medical Advice BMI [facility] REJ [address] [place], [place] [id number] [place] [address] [address] [place], [place] [phone] RE: Visit Follow Up Question Social History [...] N ot on file 02/23/2020 Data from: https://www.neighborhoodatlas.medicine.[facility].edu/. Last address used for calculation Not [...] documented as of this encounter Care Teams Manager Human Capital Relationship Specialty Start Date End Date Kami Olvera MD [address] [place] [address] PCP - General Family Medicine 02/01/17 Jazzy Dunn RN [address] [place] [address] [place] [address] Specialty Senior Advisory Hematology/Oncology 07/27/21 04/30/23 David House MD [address] [place] [address] [place] [address] Physician Hematology/Oncology 07/27/21 Odette Lopez PAPonchoC [address] [place] [address] [place] [address] Physician Mohs Surgeon Hematology/Oncology 07/27/21 Rubens Singh MD [address] [place] [address] [place] [address] Physician Hematology/Oncology 10/08/21 Fran [facility] Palliative Medicine Provider 08/30/21 documented as of this encounter
--- OUTSIDE RECORDS SUMMARY | 2024-11-16 08:58 | XMS_ITS | Encounter Summary ---
Author Organization [facility] Address [address] [place] [address] Care Team Providers Care Tipple Worker Name Role Phone JustoDevonte page Primary Care Provider Kami Olvera MD Primary Care Provider [phone] Jazzy Dunn RN Unavailable [phone] David House MD Unavailable [phone] Odette Lopez PA-C Unavailable [phone] Rubens Singh MD Unavailable [phone] Source Comments In the event this information is protected by the Federal Confidentiality of Alcohol and Drug AbusePatient Records regulations: The Federal rules restrict any use of the information to criminally investigate or prosecute any alcohol or drug abuse patient.[facility] Encounter Details Date Type Department Care Team (Late st Contact Info) Description 10/10/2014 Get Medical Advice Neurology [address] [place] [address] Lidia Jones PA-C [address]00 [place] [address] RE: Visit Follow Up Question Social History [...] 3:11 PM NAYET Jason Ventura MA * Are you blind [...] documented as of this encounter Care Teams Tipple Worker Relationship Specialty Start Date End Date Devonte Kemp DO PCP - General Family Medicine 05/03/13 01/31/17 Kami Olvera MD [address] [place] [address] PCP - General Family Medicine 02/01/17 Jazzy Dunn RN [address] [facility] [place] [place] [address] Specialty Side Panel Padder Hematology/Oncology 07/27/21 04/30/23 David House MD [address] [place], [place] [address]RY [facility] [place] [place] [address] Physician Hematology/Oncology 07/27/21 Odette Lopez, PA-C [address] [facility] [place] [address] Physician Glaciologist Hematology/Oncology 07/27/21 Rubens Singh MD [address] [facility] [place] [address] Physician Hematology/Oncology 10/08/21 KrysMARVIN [facility] Palliative Medicine Provider 08/30/21 documented as of this encounter
--- OUTSIDE RECORDS SUMMARY | 2024-11-16 08:58 | XMS_ITS | Encounter Summary ---
Author Organization [facility] Address [address] [place] [address] Care Team Providers Care Bacon Skin Lifter Name Role Phone Kami Olvera MD Primary Care Provider [phone] Jazzy Dunn RN Unavailable [phone] David House MD Unavailable [phone] Odette Lopez PA-C Unavailable [phone] Rubens Singh MD Unavailable [phone] Source Comments In the event this information is protected by the Federal Confidentiality of Alcohol and Drug AbusePatient Records regulations: The Federal rules restrict any use of the information to criminally investigate or prosecute any alcohol or drug abuse patient.[facility] Encounter Details Date Type Department Care Team (Late st Contact Info) Description 03/06/2021 Get Medical Advice BMI [facility] REJ [address] [place], [place] [phone] [place] [address] [address] [place], [place] [phone] Clogged J Tube Social History Tobacco Use Types Packs/Day [...] N ot on file 02/23/2020 Data from: https://www.neighborhoodatlas.medicine.[facility].edu/. Last address used for calculation Not [...] documented as of this encounter Care Teams Bacon Skin Lifter Relationship Specialty Start Date End Date Kami Olvera MD [address] [place] [address] PCP - General Family Medicine 02/01/17 Jazzy Dunn RN [address] [place] [address] Specialty Kitchen Mechanic Hematology/Oncology 07/27/21 04/30/23 David House MD [address] [place] [address] Physician Hematology/Oncology 07/27/21 Odette Lopez PAPonchoC [address] [place] [address] [place] [address] Physician Engine Designer Hematology/Oncology 07/27/21 Rubens Singh MD [address] [place] [address] [place] [address] Physician Hematology/Oncology 10/08/21 Fran [facility] Palliative Medicine Provider 08/30/21 documented as of this encounter
--- OUTSIDE RECORDS SUMMARY | 2024-11-16 08:58 | XMS_ITS | Encounter Summary ---
Author Organization [facility] Address [address] [place] [address] Care Team Providers Care Farm Equipment Engineer Name Role Phone Kami Olvera MD Primary Care Provider [phone] Jazzy Dunn RN Unavailable [phone] David House MD Unavailable [phone] Odette Lopez PA-C Unavailable [phone] Rubens Singh MD Unavailable [phone] Source Comments In the event this information is protected by the Federal Confidentiality of Alcohol and Drug AbusePatient Records regulations: The Federal rules restrict any use of the information to criminally investigate or prosecute any alcohol or drug abuse patient.[facility] Encounter Details Date Type Department Care Team (Late st Contact Info) Description 07/07/2021 Patient Msg General Surgery [address] [place] [address] Provider, Ccf 07/14/21 EGG Instructions Social History Tobacco Use Types Packs/Day Years [...] file 02/23/2020 Data from: https://www.neighborhoodatlas.medicine.[facility].edu/. Last address used for calculation Not [...] suspected to have Coronavirus/COVID-19? No / Unsure 07/02/2021 8:10 AM EDT documented as of this encounter [...] documented as of this encounter Care Teams Farm Equipment Engineer Relationship Specialty Start Date End Date Kami Olvera MD [address] [facility] [place] [address] PCP - General Family Medicine 02/01/17 Jazzy Dunn RN [address] [facility] [place] [address] Specialty Kiln Door Builder Hematology/Oncology 07/27/21 04/30/23 David House MD [address] [place] [address] [place] [address] Physician Hematology/Oncology 07/27/21 Odette Lopez PA-C [address] [place] [address] [place] [address] Physician Drupal Web Developer Hematology/Oncology 07/27/21 Rubens Singh MD [address] [place], [place] [address] Physician Hematology/Oncology 10/08/21 Fran [facility] Palliative Medicine Provider 08/30/21 documented as of this encounter
--- OUTSIDE RECORDS SUMMARY | 2024-11-16 08:58 | XMS_ITS | Encounter Summary ---
Author Organization [facility] Address [address] [place] [address] Care Team Providers Care Web Press Operator Helper Offset Name Role Phone Kami Olvera MD Primary Care Provider [phone] Jazzy Dunn RN Unavailable [phone] David House MD Unavailable [phone] Odette Lopez PA-C Unavailable [phone] Rubens Singh MD Unavailable [phone] Source Comments In the event this information is protected by the Federal Confidentiality of Alcohol and Drug AbusePatient Records regulations: The Federal rules restrict any use of the information to criminally investigate or prosecute any alcohol or drug abuse patient.[facility] Encounter Details Date Type Department Care Team (Late st Contact Info) Description 12/08/2020 Get Medical Advice Gastroenterology [address] [place] [address] [place] [address] [place] [address] RE: Visit Follow Up Question Social History [...] N ot on file 02/23/2020 Data from: https://www.neighborhoodatlas.medicine.[facility].edu/. Last address used for calculation Not on [...] have Coronavirus / COVID-19? No / Unsure 11/17/2020 11:11 AM EDT documented as of this encounter Functional Status * Are you deaf or do you have serious difficulty hearing? Answer Date of Assessment Author No 11/03/2020 12:53 PM EDT Lilia , Lily, RN * Are you blind or do [...] documented as of this encounter Care Teams Web Press Operator Helper Offset Relationship Specialty Start Date End Date Kami Olvera MD [address] [place] [address] PCP - General Family Medicine 02/01/17 Jazzy Dunn RN [address] [place] [address] [place] [address] Specialty Shackler Hematology/Oncology 07/27/21 04/30/23 David House MD [address] [place] [address] [place] [address] Physician Hematology/Oncology 07/27/21 Odette Lopez PA-C [address] [place] [address] [place] [address] Physician Disaster Recovery Coordinator Hematology/Oncology 07/27/21 Rubens Singh MD [address] [place] [address] [place] [address] Physician Hematology/Oncology 10/08/21 Fran [facility] Palliative Medicine Provider 08/30/21 documented as of this encounter
--- OUTSIDE RECORDS SUMMARY | 2024-11-16 08:58 | XMS_ITS | Encounter Summary ---
Author Organization [facility] Address [address] [place] [address] Care Team Providers Care Inflated Pad Buffer Name Role Phone Kami Olvera MD Primary Care Provider [phone] Jazzy Dunn RN Unavailable [phone] David House MD Unavailable [phone] Odette Lopez PA-C Unavailable [phone] Rubens Singh MD Unavailable [phone] Source Comments In the event this information is protected by the Federal Confidentiality of Alcohol and Drug AbusePatient Records regulations: The Federal rules restrict any use of the information to criminally investigate or prosecute any alcohol or drug abuse patient.[facility] Encounter Details Date Type Department Care Team (Late st Contact Info) Description 05/20/2021 Patient Msg Gastroenterology [address] [place] [id number] Provider, Ccf Appointment on 05/25/21 has been canceled Social History Tobacco Use Types Packs/Day Years [...] on file 02/23/2020 Data from: https://www.neighborhoodatlas.medicine.[facility].edu/. Last address used for calculation Not [...] have Coronavirus / COVID-19? No / Unsure 05/18/2021 10:54 PM EST documented as of this encounter Functional Status * Are you deaf or do you have serious difficulty hearing? Answer Date of Assessment Author No 02/19/2021 11:35 AM Gabriela Lopez RN * Are you blind or do [...] Assessment Author No 02/19/2021 11:35 AM Gabriela Lopze RN documented as of this encounter Mental [...] documented as of this encounter Care Teams Inflated Pad Buffer Relationship Specialty Start Date End Date Kami Olvera MD [address] [place] [address] PCP - General Family Medicine 02/01/17 Jazzy Dunn RN [address] [place] [address] Specialty Cardiac Exercise Physiologist Hematology/Oncology 07/27/21 04/30/23 David House MD [address] [place] [address] Physician Hematology/Oncology 07/27/21 Odette Lopez, PA-C [address] [facility] [place] [address] Physician Ladle Watcher Hematology/Oncology 07/27/21 Rubens Singh MD [address] [place] [address] Physician Hematology/Oncology 10/08/21 Fran [facility] Palliative Medicine Provider 08/30/21 documented as of this encounter
--- OUTSIDE RECORDS SUMMARY | 2024-11-16 08:58 | XMS_ITS | Encounter Summary ---
Author Organization [facility] Address [address] [place] [address] Care Team Providers Care Staff Air Tactical Officer Name Role Phone JustoDevonte page Primary Care Provider Kami Olvera MD Primary Care Provider [phone] Jazzy Dunn RN Unavailable [phone] David House MD Unavailable [phone] Odette Lopez PA-C Unavailable [phone] Rubens Singh MD Unavailable [phone] Source Comments In the event this information is protected by the Federal Confidentiality of Alcohol and Drug AbusePatient Records regulations: The Federal rules restrict any use of the information to criminally investigate or prosecute any alcohol or drug abuse patient.[facility] Encounter Details Date Type Department Care Team (Late st Contact Info) Description 10/02/2014 Get Medical Advice Neurology [address] [place] [address] Lidia Jones PA-C [address] [place] [address] RE: Visit Follow Up Question [...] documented as of this encounter Care Teams Staff Air Tactical Officer Relationship Specialty Start Date End Date Devonte Kemp DO PCP - General Family Medicine 05/03/13 01/31/17 Kami Olvera MD [address] [place] [address] PCP - General Family Medicine 02/01/17 Jazzy Dunn RN [address] [facility] [place] [address] Specialty Conference Producer Hematology/Oncology 07/27/21 04/30/23 David House MD [address] [place], [place] [address] [facility] [place] [address] Physician Hematology/Oncology 07/27/21 Odette Lopez, PA-C [address] [facility] [place] [address] Physician Certified Alcohol Counselor Hematology/Oncology 07/27/21 Rubens Singh MD [address] [facility] [place] [address] Physician Hematology/Oncology 10/08/21 KrysMARVIN [facility] Palliative Medicine Provider 08/30/21 documented as of this encounter
--- OUTSIDE RECORDS SUMMARY | 2024-11-16 08:58 | XMS_ITS | Encounter Summary ---
Author Organization [facility] Address [address] [place] [address] Care Team Providers Care Auditing Control Clerk Name Role Phone Kami Olvera MD Primary Care Provider [phone] Jazzy Dunn RN Unavailable [phone] David House MD Unavailable [phone] Odette Lopez PA-C Unavailable [phone] Rubens Singh MD Unavailable [phone] Source Comments In the event this information is protected by the Federal Confidentiality of Alcohol and Drug AbusePatient Records regulations: The Federal rules restrict any use of the information to criminally investigate or prosecute any alcohol or drug abuse patient.[facility] Encounter Details Date Type Department Care Team (Late st Contact Info) Description 12/01/2020 Patient Msg General Surgery [address] [place] [address] Provider, Ccf EGD Social History Tobacco Use Types Packs/Day [...] N ot on file 02/23/2020 Data from: https://www.neighborhoodatlas.medicine.[facility].edu/. Last address used for calculation [...] documented as of this encounter Care Teams Auditing Control Clerk Relationship Specialty Start Date End Date Kami Olvera MD [address] [place] [address] PCP - General Family Medicine 02/01/17 Jazzy Dunn RN [address] [place] [place], [place] [address] Specialty Main Line Station Engineer Hematology/Oncology 07/27/21 04/30/23 David House MD [address] [place] [address] Physician Hematology/Oncology 07/27/21 Odette Lopez PA-C [address] [place] [address] [place] [address] Physician Bilingual Kindergarten Teacher Hematology/Oncology 07/27/21 Rubens Singh MD [address] [place] [address] Physician Hematology/Oncology 10/08/21 Fran [facility] Palliative Medicine Provider 08/30/21 documented as of this encounter
--- OUTSIDE RECORDS SUMMARY | 2024-11-16 08:58 | XMS_ITS | Encounter Summary ---
Author Organization [facility] Address [address] [place] [address] Care Team Providers Care Duty Manager Name Role Phone Kami Olvera MD Primary Care Provider [phone] Jazzy Dunn RN Unavailable [phone] David House MD Unavailable [phone] Odette Lopez PA-C Unavailable [phone] Rubens Singh MD Unavailable [phone] Source Comments In the event this information is protected by the Federal Confidentiality of Alcohol and Drug AbusePatient Records regulations: The Federal rules restrict any use of the information to criminally investigate or prosecute any alcohol or drug abuse patient.[facility] Encounter Details Date Type Department Care Team (Late st Contact Info) Description 05/07/2021 Patient Msg Family Medicine [address] [place] [address] Provider, Ccf Appointment change Social History Tobacco Use Types Packs/Day Years [...] N ot on file 02/23/2020 Data from: https://www.neighborhoodatlas.medicine.[facility].edu/. Last address used for calculation Not on [...] documented as of this encounter Care Teams Duty Manager Relationship Specialty Start Date End Date Kami Olvera MD [address] [facility] [place] [address] PCP - General Family Medicine 02/01/17 Jazzy Dunn RN [address] [facility] [facility] [address] Specialty Barrel Straightener Hematology/Oncology 07/27/21 04/30/23 David House MD [address] [facility] [address] Physician Hematology/Oncology 07/27/21 Odette Lopez PA-C [address] [facility] [place] [address] Physician Sole Tier Hematology/Oncology 07/27/21 Rubens Singh MD [address] [place] [address] Physician Hematology/Oncology 10/08/21 Fran [facility] Palliative Medicine Provider 08/30/21 documented as of this encounter
--- OUTSIDE RECORDS SUMMARY | 2024-11-16 08:58 | XMS_ITS | Encounter Summary ---
Author Organization [facility] Address [address] [place] [address] Care Team Providers Care Rehab Office Coordinator Name Role Phone JustoDevonte page Carlos Alberto RIVAS Primary Care Provider Kami Olvera MD Primary Care Provider [phone] Jazzy Dunn RN Unavailable [phone] David House MD Unavailable [phone] Odette Lopez PA-C Unavailable [phone] Rubens Singh MD Unavailable [phone] Source Comments In the event this information is protected by the Federal Confidentiality of Alcohol and Drug AbusePatient Records regulations: The Federal rules restrict any use of the information to criminally investigate or prosecute any alcohol or drug abuse patient.[facility] Encounter Details Date Type Department Care Team (Late st Contact Info) Description 12/25/2014 Patient Msg Medical Records [address] [place] [address] Provider, Ccf RE: Appointment Cancellation Request Social History Tobacco [...] of Assessment Author No 10/23/2014 2:50 PM NAYET Jason Ventura MA documented as of this encounter Mental [...] documented as of this encounter Care Teams Rehab Office Coordinator Relationship Specialty Start Date End Date Devonte Kemp DO PCP - General Family Medicine 05/03/13 01/31/17 Kami Olvera MD [address] [place] [address] PCP - General Family Medicine 02/01/17 Jazzy Dunn, RN [address] [facility] [address] Specialty Program Research Specialist Hematology/Oncology 07/27/21 04/30/23 David House MD [address] [facility] [place] [address] Physician Hematology/Oncology 07/27/21 Odette Lopez, PA-C [address] [facility] [place] [address] Physician Monorail Helper Hematology/Oncology 07/27/21 Rubens Singh MD [address] [facility] [place] [address] Physician Hematology/Oncology 10/08/21 Fran [facility] Palliative Medicine Provider 08/30/21 documented as of this encounter
--- OUTSIDE RECORDS SUMMARY | 2024-11-16 08:58 | XMS_ITS | Encounter Summary ---
Author Organization [facility] Address [address] [place] [address] Care Team Providers Care Aquaculture Farmer Name Role Phone Kami Olvera MD Primary Care Provider [phone] Jazzy Dunn RN Unavailable [phone] David House MD Unavailable [phone] Odette Lopez PA-C Unavailable [phone] Rubens Singh MD Unavailable [phone] Source Comments In the event this information is protected by the Federal Confidentiality of Alcohol and Drug AbusePatient Records regulations: The Federal rules restrict any use of the information to criminally investigate or prosecute any alcohol or drug abuse patient.[facility] Encounter Details Date Type Department Care Team (Late st Contact Info) Description 02/16/2021 Patient Msg Pre Anesthesia [address] [place] [address] Rafaela Roman PA-C [address] [place] [address] Preoperative Instructions Social History Tobacco Use Types Packs/Day [...] N ot on file 02/23/2020 Data from: https://www.neighborhoodatlas.medicine.[facility].edu/. Last address used for calculation [...] have Coronavirus / COVID-19? No / Unsure 02/18/2021 6:26 AM EST documented as of this encounter Functional Status * Are you deaf or do you have serious difficulty hearing? Answer Date of Assessment Author No 12/25/2020 11:22 AM EDT Era Medina, RN * Are you blind or do you have serious difficulty seeing, even when wearing glasses? Answer Date of Assessment Author No 12/25/2020 11:22 AM EDT Era Medina RN * Do you have serious difficulty walking or climbing stairs? Answer Date of Assessment Author No 12/25/2020 11:22 AM EDT Era Medina RN * Do you have difficulty dressing or bathing? Answer Date of Assessment Author No 12/25/2020 11:22 AM EDT Era Medina RN * Because of a physical, mental, or emotional condition, do you have difficulty doing errands alone such as visiting a doctor's office or shopping? Answer Date of Assessment Author No 12/25/2020 11:22 AM NAYET Era Medina RN documented as of this encounter Mental Status * Because of a physical, mental, or emotional condition, do you have serious difficulty concentrating, remembering, or making decisions? Answer Entry Date Author No 12/25/2020 11:22 AM EDT Era Medina RN documented in this encounter [...] documented as of this encounter Care Teams Aquaculture Farmer Relationship Specialty Start Date End Date Kami Olvera MD [address] [place] [address] PCP - General Family Medicine 02/01/17 Jazzy Dunn RN [address] [place] [address] [place] [address] Specialty Receiving Checker Hematology/Oncology 07/27/21 04/30/23 David House MD [address] [place] [address] [place] [address] Physician Hematology/Oncology 07/27/21 Odette Lopez PA-C [address] [place] [address] [place] [address] Physician Electronic Warfare Officer Hematology/Oncology 07/27/21 Rubens Singh MD [address] [place] [address] Physician Hematology/Oncology 10/08/21 Fran [facility] Palliative Medicine Provider 08/30/21 documented as of this encounter
--- OUTSIDE RECORDS SUMMARY | 2024-11-16 08:59 | XMS_ITS | Encounter Summary ---
Author Organization [facility] Address [address] [place] [address] Care Team Providers Care Employment Instructional Associate Name Role Phone JustoDevonte page Carlos Alberto RIVAS Primary Care Provider Kami Olvera MD Primary Care Provider [phone] Jazzy Dunn RN Unavailable [phone] David House MD Unavailable [phone] Odette Lopez PA-C Unavailable [phone] Rubens Singh MD Unavailable [phone] Source Comments In the event this information is protected by the Federal Confidentiality of Alcohol and Drug AbusePatient Records regulations: The Federal rules restrict any use of the information to criminally investigate or prosecute any alcohol or drug abuse patient.[facility] Encounter Details Date Type Department Care Team (Late st Contact Info) Description 04/01/2014 Patient Msg Medical Records [address] [place] [address] Provider, Ccf RE: Request an Appointment Social History Tobacco Use [...] hearing? Answer Date of Assessment Author No 02/25/2014 12:48 PM Felicity Cilnton LPN * Are you blind or do you have serious difficulty seeing, even when wearing glasses? Answer Date of Assessment Author No 02/25/2014 12:48 PM Felicity Clinton LPN * Do you have serious difficulty walking or climbing stairs? Answer Date of Assessment Author No 02/25/2014 12:48 PM Felicity Clinton LPN * Do you have difficulty dressing or bathing? Answer Date of Assessment Author No 02/25/2014 12:48 PM Felicity Clinton LPN * Because of a physical, mental, or emotional condition, do you have difficulty doing errands alone such as visiting a doctor's office or shopping? Answer Date of Assessment Author No 02/25/2014 12:48 PM Felicity Clinton LPN documented as of this encounter Mental Status * Because of a physical, mental, or emotional condition, do you have serious difficulty concentrating, remembering, or making decisions? Answer Entry Date Author Yes 02/25/2014 12:48 PM Felicity Clinton LPN documented in this encounter Plan of Treatment [...] documented as of this encounter Care Teams Employment Instructional Associate Relationship Specialty Start Date End Date Devonte Kemp DO PCP - General Family Medicine 05/03/13 01/31/17 Kami Olvera MD [address] [place] [address] PCP - General Family Medicine 02/01/17 Jazzy Dunn RN [address] [facility] [place] [address] Specialty Clamp Operator Hematology/Oncology 07/27/21 04/30/23 David House MD [address] [facility] [place] [address] Physician Hematology/Oncology 07/27/21 Odette Lopez, PA-C [address] [facility] [place] [address] Physician Transformer Tester Hematology/Oncology 07/27/21 Rubens Singh MD [address] [facility] [place] [address] Physician Hematology/Oncology 10/08/21 Fran [facility] Palliative Medicine Provider 08/30/21 documented as of this encounter
--- OUTSIDE RECORDS SUMMARY | 2024-11-16 08:59 | XMS_ITS | Encounter Summary ---
Author Organization [facility] Address [address] [place] [address] Care Team Providers Care Retail Cosmetics Sales Beauty Advisor Name Role Phone Kami Olvera MD Primary Care Provider [phone] David House MD Unavailable [phone] Rubens Singh MD Unavailable [phone] Source Comments In the event this information is protected by the Federal Confidentiality of Alcohol and Drug AbusePatient Records regulations: The Federal rules restrict any use of the information to criminally investigate or prosecute any alcohol or drug abuse patient.[facility] Encounter Details Date Type Department Care Team (Late st Contact Info) Description 09/12/2023 Get Medical Advice Gastroenterology [address] [place] [address] Theresa Rodríguez APRN.MIX MILL TENDER [address] [place] [address] Continuing Issue Social History Tobacco Use Types Packs/Day Years [...] place to sleep or slept in a penitentiary (including now)? No 09/08/2021 Area Deprivation Index Answer Date Juan rded National Score (1-100), lower number is lower ri sk 73 10/14/2022 State Score (1-10), lower number is lower risk 6 10/14/2022 Data from: https://www.neigh borhoodatlas.medicine.[facility].edu/. Last address used for calculation [address] [...] Sarah Hill RN documented in this encounter Patient Instructions * Patient Instructions* Theresa Rodríguez APRN.MIX MILL TENDER - 09/13/2023 12:45 PM EDT Images from the original note were not included. Bowel Preparation Instructions for: Miralax-Gatorade Preparations IF YOU DO NOT FOLLOW THESE DIRECTIONS, YOUR COLONOSCOPY WILL BE CANCELLED. Jackson Instructions: Your bowel must be empty so that your doctor can clearly view your colon. Follow all of the instructions in this handout EXACTLY as they are written. Do NOT eat any solid food the ENTIRE day before your colonoscopy. Buy your bowel preparation at least 5 days before your colonoscopy. Four (4) Dulcolax laxative tablets containing 5mg of bisacodyl each (NOT Dulcolax stool softener) One (1) 8.3oz. bottle Miralax (238 grams) or generic equivalent 2 x 32oz. Bottles of Gatorade (NOT RED) Diabetic Patients: Use G2 (Gatorade 2) TRANSPORTATION on the Day of Your Exam A responsible adult MUST be present with you at Check In prior to your colonoscopy and REMAIN in the endoscopy area until you are discharged. You are NOT ALLOWED to drive, take a taxi or bus, or leave the Endoscopy Center ALONE. If you do not have a responsible funeral car driver (family member or friend) withyou to take you home, your exam cannot be done with sedation and will be cancelled. Please bring a list of all of your current medications, including any Irzl-erj-Xulkioj medications with you. Medications If you take insulin, diabetic medications or blood thinners such as Coumadin (warfarin), Plavix (clopidogrel), Ticlid (ticlopidine hydrochloride), Agrylin (anagrelide), Xarelto (Rivaroxaban), Pradaxa(Dabigatran), Eliquis (Apixaban), and Effient (Prasugrel). You MUST call the doctors who orders those medicines for instructions on altering the dosage before your colonoscopy. All other medications should be taken the day of the exam with a sip of water including ASPIRIN. Five (5) Days Before Your Colonoscopy Do NOT take medicines that stop diarrhea - such as Imodium, Kaopectate, or Pepto Bismol. Do NOT take fiber supplements - such as Metamucil, Citrucel, or Perdiem. Do NOT take products that contain iron - such as multi-vitamins (the label lists what is in the products). Three (3) Days Before Your Colonoscopy Do NOT eat high-fiber foods - such as popcorn, beans, seeds (flax, sunflower, quinoa), multigrain bread, nuts, salad/vegetables, or fresh and dried fruit. 1 Bowel Preparation Instructions for: Miralax-Gatorade Preparations One (1) Day Before Your Colonoscopy Only drink clear liquids the ENTIRE DAY before your colonoscopy. Do NOT eat any solid foods. Drink at least 8 ounces of clear liquids every hour after waking up. The clear liquids you can drink include: Clear Liquid (NO RED LIQUIDS) DO NOT DRINK Gatorade, Pedialyte or Powerade Clear broth or bouillon Coffee or tea (no milk or non-dairy creamer) Carbonated and non-carbonated soft drinks Maico-Aid or other fruit flavored drinks Strained fruit juices (no pulp) Jell-O, popsicles, hard candy Water Alcohol Milk or non-dairy creamers Noodles or vegetables in soup Juice with pulp Liquid you cannot see through Do not use tobacco/vaping products Mix 1/2 of Miralax bottle (119 grams) in each 32 ounces of Gatorade bottle until dissolved. Keep cool in the refrigerator. DO NOT ADD ICE. The bowel preparation solution will be consumed in two parts. Part 1 5:00 PM - Evening before your colonoscopy Take 4 Dulcolax tablets. 6 PM - Evening before your colonoscopy Drink 32 oz. of the mixed solution. Drink an 8 oz. glass of bowel preparation every 15 minutes for a total of 4 glasses. Fifteen (15) minutes later, drink an 8 oz. glass of of clear liquids every 15 minutes for a total of 2 glasses. You may continue to drink clear liquids till midnight. Part 2 On the day of your colonoscopy you may drink clear liquids up to (three) 3 hours prior to procedure. 4 1/2 hours before your colonoscopy Take another 32 oz. bottle of mixed solution. Drink an 8 oz. glass of bowel prep every 15 minutes for a total of 4 glasses. Fifteen (15) minutes later, drink an 8 oz. glass of clear liquids every 15 minutes for a total of 2glasses. You may continue to drink clear liquids up to (three) 3 hours before your exam. 2 02/2019 documented in this encounter Miscellaneous Notes * Telephone Encounter - Michelle Yu - 09/14/2023 2:36 PM EDT Spoke to patient and rescheduled her colonoscopy to 09/27/23 at [place] per below. Sent prep via my chart. documented in this encounter Plan of Treatment Not on file documented as of this encounter Visit Diagnoses Diagnosis Weight loss- Primary Loss of weight Generalized abdominal pain Abdominal pain, generalized documented in this encounter Care Teams Retail Cosmetics Sales Beauty Advisor Relationship Specialty Start Date End Date Kami Olvera MD [address] [place] [address] PCP - General Family Medicine 02/01/17 David House MD [address] [place] [id number] Physician Hematology/Oncology 07/27/21 Rubens Singh MD [address] [place] [address] Physician Hematology/Oncology 10/08/21 [facility] 08/30/21 documented as of this encounter
--- OUTSIDE RECORDS SUMMARY | 2024-11-16 08:59 | XMS_ITS | Encounter Summary ---
Author Organization [facility] Address [address] [place] [address] Care Team Providers Care Tetryl Nitrator Operator Name Role Phone Kami Olvera MD Primary Care Provider [phone] Jazzy Dunn RN Unavailable [phone] David House MD Unavailable [phone] Odette Lopez PA-C Unavailable [phone] Rubens Singh MD Unavailable [phone] Source Comments In the event this information is protected by the Federal Confidentiality of Alcohol and Drug AbusePatient Records regulations: The Federal rules restrict any use of the information to criminally investigate or prosecute any alcohol or drug abuse patient.[facility] Encounter Details Date Type Department Care Team (Latest Contact Info) Description 05/14/2021 Patient Msg [facility] [address] [place] [address] Provider, Ccf Pre Procedure Instructions Social History Tobacco Use Types Packs/Day [...] N ot on file 02/23/2020 Data from: https://www.neighborhoodatlas.medicine.[facility].edu/. Last address used for calculation Not [...] documented as of this encounter Care Teams Tetryl Nitrator Operator Relationship Specialty Start Date End Date Kami Olvera MD [address] [place] [id number] PCP - General Family Medicine 02/01/17 Jazzy Dunn RN [address] [facility] [place] [address] Specialty Environmental Compliance Manager Hematology/Oncology 07/27/21 04/30/23 David House MD [facility] [place] [address] Physician Hematology/Oncology 07/27/21 Odette Lopez, PAPonchoC [address] [place] [address] [place] [address] Physician Pattern Technician Hematology/Oncology 07/27/21 Rubens Singh MD [address] [place] [address] [place] [address] Physician Hematology/Oncology 10/08/[address] [facility] Palliative Medicine Provider 08/30/21 documented as of this encounter
--- OUTSIDE RECORDS SUMMARY | 2024-11-16 08:59 | XMS_ITS | Encounter Summary ---
Author Organization [facility] Address [address] [place] [address] Care Team Providers Care Hogshead Cooper Name Role Phone JustoDevonte page Carlos Alberto RIVAS Primary Care Provider Kami Olvera MD Primary Care Provider [phone] Jazzy Dunn RN Unavailable [phone] David House MD Unavailable [phone] Odette Lopez PA-C Unavailable [phone] Rubens Singh MD Unavailable [phone] Source Comments In the event this information is protected by the Federal Confidentiality of Alcohol and Drug AbusePatient Records regulations: The Federal rules restrict any use of the information to criminally investigate or prosecute any alcohol or drug abuse patient.[facility] Encounter Details Date Type Department Care Team (Late st Contact Info) Description 04/01/2014 Patient Msg Medical Records [address] [place] [address] Provider, Ccf RE: Appointment Cancellation Request Social [...] 02/25/2014 12:48 PM Felicity Clinton LPN * Are you blind or do [...] documented as of this encounter Care Teams Hogshead Cooper Relationship Specialty Start Date End Date Devonte Kemp DO PCP - General Family Medicine 05/03/13 01/31/17 Kami Olvera MD [address] [place] [address] PCP - General Family Medicine 02/01/17 Jazzy Dunn RN [address] [facility] [place] [address] Specialty Vocational Nurse Lvn Hematology/Oncology 07/27/21 04/30/23 David House MD [address] [place] [address] [place] [address] Physician Hematology/Oncology 07/27/21 Odette Lopez, PA-C [address] [facility] [place] [address] Physician Postal Supervisor Hematology/Oncology 07/27/21 Rubens Singh MD [address] [facility] [place] [id number] Physician Hematology/Oncology 10/08/21 Fran [facility] Palliative Medicine Provider 08/30/21 documented as of this encounter
--- OUTSIDE RECORDS SUMMARY | 2024-11-16 08:59 | XMS_ITS | Clinical Summary ---
Author Organization [facility] Address [address] [place] [address] Care Team Providers Care Molder Pipe Covering Name Role Phone Kami Olvera MD Primary Care Provider [phone] David House MD Unavailable [phone] Rubens Singh MD Unavailable [phone] Allergies Active Allergy Reactions Criticality Noted Date Comments Benadryl Allergy Decongestant Other: See Comments 12/15/2014 Pt passes out Calcium Carbonate Rash,Unknown 11/28/2021 Dhe Other: See Comments 07/09/2013 fever and passed out per patient Diphenhydramine Anaphylaxis,Other: See Comments,Rash,Unkno wn 11/28/2021 Iodine Rash 05/02/2023 Prasterone (Dhea) Rash,Unknown 11/28/2021 Medications * This document contains information received from the source organization and may not represent a complete record from that organization. bupropion HCl (WELLBUTRIN ORAL) Take 100 mg by mouth twice daily. Active venlafaxine (EFFEXOR) 75 mg tablet Take 1 tablet via PEG/JET tube three times daily with meals. 90 tablet 06/03/2021 6:22 PM EDT 06/04/19 Active ondansetron (ZOFRAN) 4 mg tablet 4 mg every 6 hours as needed. Active prochlorperazin e (COMPAZINE) 10 mg tablet Take 1 tablet by mouth every 6 hours as needed. 60 tablet 1 08/23/2021 11:57 AM EDT 08/24/19 22 Active Additional Information Patient not taking.Reported on 06/23/2023 naloxone 4 mg/actuation nasal spray (NARCAN) Use 1 spray in one nostril as needed for overdose. May repeat every 2 to 3 min in alternating nostrils until medical assistance is available 2 Each 08/23/2021 11:57 AM EDT 08/24/19 22 Active galcanezumab-gn lm (EMGALITY SYRINGE) 120 mg/mL syringe 1 ml Subcutaneous monthly for 90 days 08/20/19 23 Active morphine IR 15 mg tablet TAKE 1 TO 2 TABLETS BY MOUTH THREE TIMES DAILY NEEDED 05/01/19 25 Active iv contrast (will be provided with radiology test)Indication s:History of Hodgkin's disease,Arthral angel, unspecified joint,Unexplain ed night sweats CT Chest ABD/PEL-Inject, intravenously, once for 1 dose.No IV access, insert saline lock prior to the beginning of sedation, infusion, injection of imaging exam. Discontinue saline lock post exam. If Pt. has a central line or IVAD, may access for administration according to line specific nursing protocol. Once exam is complete flush line and de-access according to line specific nursing protocol in the CT contrast administration guidelines link. 1 Each 05/10/19 25 Active enteric contrast (will be provided with radiology test)Indication s:History of Hodgkin's disease,Arthral angel, unspecified joint,Unexplain ed night sweats For CT CHESTABD/PEL W IVCON Routine order Administer, As Directed One Time Only, via Oral, Rectal, both Oral and Rectal, Enteric Tube, Stoma or Indwelling Catheter, Enteric Contrast as designated per enteric contrast guidelines 1 Each 05/10/19 25 Active Active Problems Patient Care Coordination No te Formatting of [...] This morning , all sedation held. CPAP 07/22. Pt has multiple episodes where she would [...] even during episodes of apnea and tremors 3/2 extubated to HFNC Plan - on RA [...] and occasional poor IV access. Will notify [facility] anesthesia of patient history. Depression 02/16/2021 Overview [...] & Plan (10/27/2020 4:00 PM EDT): Assessment: Stablie on Emgality once a month. Has Maxalt [...] of status migrainosus 07/09/2013 Pituitary neoplasm 08/30/2011 Resolved Problems Problem Noted Date Diagnosed Date [...] function study 10/14/2009 02/16/2021 Postural dizziness 10/14/2009 Encounters Date Type Department Care Team Description 10/15/2024 Telephone [facility]ematology[facility]Oncology [facility] [place] [address] Randal Hu MD Referral 09/10/2024 [place] [address] Provider, [facility]cf Sign up to manage your digestive symptoms in between visits, covered by insurance from Last 3 Months Immunizations Immunization Administration Dates Next Due Haemophilus influenzae b (Hi b) vaccine, unspecified formulation 10/09/1995,1994 diphtheria tetanus pertussis (DTP) vaccine 03/02 diphtheria tetanus pertussis (DTaP) vaccine, unspecified formulation 06/23/1999,10/09/1995 diphtheria tetanus pertussis -Haemophilus influenzae b (DTP-Hib) vaccine (TETRAMUNE) 1994,1994 hepatitis B (HepB) vaccine, 3-dose series, age 0 yr - 19 yr (ENGERIX B-PEDS, RECOMBIVAX HB-PEDS) 1994,1994,1994 human papillomavirus (HPV) v accine, unspecified formulation 08/19/2011 human papillomavirus (HPV4) vaccine, quadrivalent (GARDASIL) 03/10/2011,12/06/2010,10/15/2008 measles mumps rubella (MMR) vaccine (M-M-R II, PRIORIX) 06/23/1999,01/16/1995 meningococcal (MenACWY-D) va ccine, quadrivalent (MENACTRA) 12/06/2010,10/15/2008 poliovirus (IPV) vaccine, in activated (IPOL) 06/23/1999 poliovirus (OPV) vaccine, tr ivalent, live, oral (ORIMUNE) 1994,1994,1994 tetanus diphtheria pertussis (Tdap) vaccine, age 7+ yr (ADACEL, BOOSTRIX) 10/15/2008 varicella (MARCELA) vaccine (VARIVAX) 12/06/2010, Family History Medical History Relation Comments Heart Brother 3 coarctation of t he aorta cerebral palsy Brother 3 Cleft palate Brother 4 Erick Ifeanyi Sequence Brother 4 Hypertension Father Cancer Maternal Grandfather brain tumor - 64 years of age Diabetes Maternal Grandfather Glaucoma Maternal Grandfather Hypertension Maternal Grandfather migraine Maternal Grandfather Hypertension Maternal Grandmother Ischemic Heart Disease Maternal Grandmother Heart Mother bradycardia, low blood pressure. Received pacemaker progesterone deficiency Mother multiple miscarriages Diabetes Other great uncle - ty pe I Hypertension Paternal Grandfather Ischemic Heart Disease Paternal Grandfather Relation Status Comments Brother 1 Alive Brother 2 Alive Brother 3 Brother 4 Father Alive Maternal Grandfather Maternal Grandmother Mother Alive Other Paternal Grandfather Sister Alive Social History Tobacco Use Types Packs/Day Years Used Date Smoking Tobacco: Never Passive Smoke Exposure: Past Smokeless Tobacco: Never Tobacco Cessation:Counseling Given: Not Answered Alcohol Use Standard Drinks/Week Comments Not Currently [...] place to sleep or slept in a fci (including now)? No 09/08/2021 Area Deprivation Index Answer Date Juan rded National Score (1-100), lower number is lower ri sk 73 10/14/2022 State Score (1-10), lower number is lower risk 6 10/14/2022 Data from: https://www.neigh borhoodatlas.medicine.[facility].edu/. Last address used for calculation [address] 10/14/2022 Comments No Sex and Gender Information Value Date Recorded Sex Assigned at Female 10/15/2020 12:47 AM EDT Legal Sex Female 8:13 AM EST Gender Identity Female 10/15/2020 12:47 AM EDT Sexual Orientation Straight 10/15/2020 12 :47 AM EDT Last Filed Vital Signs Vital Sign Reading Time Taken Comments Blood Pressure 126/89 05/10/2024 10:10 AM EST Pulse 109 05/10/2024 10:10 AM EST Temperature 36.6 C (97.8 F) 05/10/2024 10:10 AM EST Respiratory Rate 16 05/10/2024 10:10 AM EST Oxygen Saturation 98% 05/10/2024 10:10 AM EST Inhaled Oxygen Concentration - - Weight 66.7 kg (147 lb 0.8 oz) 05/10/2024 10:10 AM EST Height 170.2 cm (5' 7 ) 06/23/2023 9:17 AM EDT Body Mass Index 23.03 06/23/2023 9:17 AM EDT Plan of Treatment Health Maintenance Due Date Last Done Comments Anxiety Screening 01/02/2012 HIV Screening 01/02/2012 Hepatitis C Screening 01/02/2012 Cervical Cancer Screening 2015 DTaP,Tdap,Td Vaccine (7 - Td or Tdap) 10/15/2018 10/15/2008, 06/23/1999, 10/09/1995, Additional history exists Influenza Vaccine (#1) 2024 Hepatitis B Vaccine Completed 1994, 1994, 1994 HPV Vaccine Completed 08/19/2011, 02/18, 12/06/2010, Additional history exists Medical Devices Explanted Type Area Personal Care Aide Device Identifier Shelf Expiration Date Model / Serial / Lot Stent Wallflex 10mm 8.5fr Permalume Covering 40mm Biliary Rapid Exchange - [id number] Implanted:Qty: 1 on 09/10/2020 at [facility] Stent N/A: Bile Duct [employer] 07/26/2022 [id number] / / [id number] Description:D: [id number] Model: WallFlex Biliary RX Uncovered Stent System Generic: stent Model Number: [id number] (10) Models Summary: MR Conditional - See Reference Max. Field: 1.5, 3 Patricia Note: Through non-clinical testing, the covered WallFlex Biliary RX Stent has been shown to be MR Conditional (poses no known hazards under specified conditions). The conditions are as follows: ? Field strengths of 3 Patricia and 1.5 Patricia ? Static magnetic field gradient < 30 T/m ? Product of static magnetic field and static magnetic field gradient < 90 T2/m ? A rate of change of magnetic field (dB/dt) approximately 60 T/s or less along the axis of the cylindrical bore. (This criteria is met for cylindrical bore MR systems with gradient slew rate of 200 T/m/s or less.) ? Normal operating mode of the MR system and use of transmit/receive head coil and/or whole body transmit coils The covered WallFlex Biliary RX Stent should not migrate in this Magnetic Resonance Imaging (MRI) environment, as magnetic force and torque in the non-clinical tests was less than the values exerted by the earth's gravity. MR imaging within these conditions may be performed immediately following the implantation of the stent. This stent has not been evaluated to determine if it is MR Conditional beyond these conditions. No tests have been performed on possible nerve or other tissue stimulation possible to be activated by strong gradient magnetic jha and resulting induced voltages. For All WF (except WF LE): 3.0 Patricia Temperature Information: Non-clinical testing of RF-induced heating was performed at 123 MHz in a 3.0 Patricia Magnetom Trio , Bazaart MR system, software version Numaris/4, The Exchange A30. The stents were in a location and orientation in the phantom that produced the worst case Radio Frequency (RF) heating. RF power was applied for 15 minutes with the conductivity of the phantom material 0.49 S/m. The phantom average JULIAN calculated using calorimetry was 4.2 W/kg. The maximum in-vitro temperature rise was 2.6 C when the local JULIAN was scaled to 2 W/kg for a stent length of 80 mm. Other stent lengths exhibited a lower temperature rise. In-vivo temperature rises were determined based on these non-clinical tests and computer simulation of the patient exposure to the electromagnetic jha in MRI. For landmarks at the chest the calculated temperature rise was 4.0 C with an uncertainty upper bound temperature of 5.5 C for a whole body average JULIAN value of 2.0 W/kg and a continuous scan time of 15 minutes. The actual in vivo rise is expected to be less than these values as the calculations did not include the cooling effects due to fluid flow in the lumen of the stent and blood perfusion in the tissue outside the stent. 1.5 Patricia Temperature Information: Non-clinical testing of RF-induced heating was performed at 64 MHz in a 1.5 Patricia [employer], software version Release 12.6.1.3 2010-02-18 whole body coil MR scanner. The stents were in a location and orientation in the phantom that produced the worst case RF heating. RF power was applied for 15 minutes with the conductivity of the phantom material about 0.49 S/m. The phantom average JULIAN calculated using calorimetry was 3.9 W/kg. The maximum in-vitro temperature rise was 2.8 C when the local JULIAN was scaled to 2 W/kg for a stent length of 144 mm. Other stent lengths exhibited a lower temperature rise. In-vivo temperature rises were determined based on these non-clinical tests and computer simulation of the patient exposure to the electromagnetic jha in MRI. For landmarks at the chest the calculated temperature rise was 2.4 C with an uncertainty upper bound temperature of 3.3 C for a whole body average JULIAN value of 2.0 W/kg and a continuous scan time of 15 minutes. The actual in vivo rise is expected to be less than these values as the calculations did not include the cooling effects due to fluid flow in the lumen of the stent and blood perfusion in the tissue outside the stent. [id number] here for reference website07/08/2013 Mfr: Vehcon. Parent Co: Fax: Rob Entake 20fr Peg Pull Method Fenestrated Drape Standard - [id number] Implanted:Qty: 1 on 12/22/2020 at [facility] Tube N/A: Abdomen [employer] ENDOSCOPIC TECH 04/19/2022 [id number] / / [id number] Description:peg Set Peg 24 24fr 5.5mm .035in Silicone 150cm Gastrostomy Pull Method - [id number] Implanted:Qty: 1 on 07/08/2021 at [facility] Tube N/A: Abdomen [employer] END[employer]COPY 05/27/2022 PEG-24-PU LL-S / / [id number] Description:silicone Insurance [facility] Advance Directives Documents on File Type Date Recorded Patient Cpc Expl anation Advance Directive(s) 08/23/2021 Advance Directives * Full Code (Latest Code Status on File) Date Activated Date Inactivated Comments 05/19/2021 12:17 PM 05/23/2021 10:52 PM Question Answer Comments Full Code Order Discussed With: Surrogate Decisi on Maker Surrogate Decision Maker Name: dakota stacy[facility] Care Teams Molder Pipe Covering Relationship Specialty Start Date End Date Kami Olvera MD [address] [facility] [place] [address] PCP - General Family Medicine 02/01/17 David House MD [address] [place] [address] Physician Hematology/Oncology 07/27/21 Rubens Singh MD [address] [place] [address] Physician Hematology/Oncology 10/08/21 [facility] Palliative Medicine Provider 08/30/21
--- OUTSIDE RECORDS SUMMARY | 2024-11-16 08:59 | XMS_ITS | Encounter Summary ---
Author Organization [facility] Address [address] [place] [address] Care Team Providers Care Floor Installer Name Role Phone Kami Olvera MD Primary Care Provider [phone] David House MD Unavailable [phone] Rubens Singh MD Unavailable [phone] Source Comments In the event this information is protected by the Federal Confidentiality of Alcohol and Drug AbusePatient Records regulations: The Federal rules restrict any use of the information to criminally investigate or prosecute any alcohol or drug abuse patient.[facility] Encounter Details Date Type Department Care Team (Late st Contact Info) Description 08/16/2023 Patient Msg Gastroenterology [address] [place], [place] [id number] Theresa Rodríguez APRN.STITCH BONDING MACHINE TENDER [address] [place] [address] labs Social History Tobacco Use Types Packs/Day Years [...] place to sleep or slept in a intermediate (including now)? No 09/08/2021 Area Deprivation Index Answer Date Juan rded National Score (1-100), lower number is lower ri sk 73 10/14/2022 State Score (1-10), lower number is lower risk 6 10/14/2022 Data from: https://www.neigh borhoodatlas.medicine.[facility].edu/. Last address used for calculation [address] [...] on filedocumented in this encounter Care Teams Floor Installer Relationship Specialty Start Date End Date Kami Olvera MD [address] [place] [id number] PCP - General Family Medicine 02/01/17 David House MD [address] [place] [address] Physician Hematology/Oncology 07/27/21 Rubens Singh MD [address] [place] [address] Physician Hematology/Oncology 10/08/21 [facility] Palliative Medicine Provider 08/30/21 documented as of this encounter
--- OUTSIDE RECORDS SUMMARY | 2024-11-16 08:59 | XMS_ITS | Encounter Summary ---
Author Organization [facility] Address [address] [place] [address] Care Team Providers Care Regulatory Law Specialist Name Role Phone Kami Olvera MD Primary Care Provider [phone] David House MD Unavailable [phone] Rubens Singh MD Unavailable [phone] Source Comments In the event this information is protected by the Federal Confidentiality of Alcohol and Drug AbusePatient Records regulations: The Federal rules restrict any use of the information to criminally investigate or prosecute any alcohol or drug abuse patient.[facility] Encounter Details Date Type Department Care Team (Late st Contact Info) Description 09/14/2023 Patient Msg [facility] [address] [place], [place] [id number] Provider, Ccf colonoscopy prep instructions Social History Tobacco Use Types Packs/Day Years [...] place to sleep or slept in a alf (including now)? No 09/08/2021 Area Deprivation Index Answer Date Juan rded National Score (1-100), lower number is lower ri sk 73 10/14/2022 State Score (1-10), lower number is lower risk 6 10/14/2022 Data from: https://www.neigh borhoodatlas.medicine.[facility].edu/. Last address used for calculation [address] [...] on filedocumented in this encounter Care Teams Regulatory Law Specialist Relationship Specialty Start Date End Date Kami Olvera MD [address] [place] [address] PCP - General Family Medicine 02/01/17 David House MD [address] [place] [address] Physician Hematology/Oncology 07/27/21 Rubens Singh MD [address] [place] [address] Physician Hematology/Oncology 10/08/[address] [facility] Pall[facility] Provider 08/30/21 documented as of this encounter
--- OUTSIDE RECORDS SUMMARY | 2024-11-16 08:59 | XMS_ITS | Encounter Summary ---
Author Organization [facility] Address [address] [place] [address] Care Team Providers Care Travel Manager Name Role Phone Kami Olvera MD Primary Care Provider [phone] David House MD Unavailable [phone] Rubens Singh MD Unavailable [phone] Source Comments In the event this information is protected by the Federal Confidentiality of Alcohol and Drug AbusePatient Records regulations: The Federal rules restrict any use of the information to criminally investigate or prosecute any alcohol or drug abuse patient.[facility] Encounter Details Date Type Department Care Team (Late st Contact Info) Description 07/13/2023 Get Medical Advice Gastroenterology [address] [place] [address] Theresa Rodríguez APRN.INVESTIGATIVE AGENT [address] [place] [address] Stomach Issues Social History Tobacco Use Types Packs/Day Years [...] place to sleep or slept in a prison (including now)? No 09/08/2021 Area Deprivation Index Answer Date Juan rded National Score (1-100), lower number is lower ri sk 73 10/14/2022 State Score (1-10), lower number is lower risk 6 10/14/2022 Data from: https://www.neigh borhoodatlas.medicine.[facility].edu/. Last address used for calculation [address] [...] Sarah Hill RN documented in this encounter Miscellaneous Notes * Telephone Encounter - Destinee Corey LPN - 07/13/2023 2:47 PM EDT Patient left a message on the nurse line stating her symptoms are not improving. EGD Impression: - Normal esophagus. - Old gastrostomy scar found in the gastric body. - Otherwise normal stomach. Biopised. - Normal examined duodenum. Biopsied. Recommendation: - Resume previous diet. - Continue present medications. - Await pathology results. - The findings and recommendations were discussed with the patient. 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 difficile who presents for abdominal pain and weight loss. Symptoms started 1 to 2 months ago, she has had a total of a 20 pound weight loss since the end of her chemotherapy about a year and a half ago. She endorses eating meals but this causes her a lot of pain. Regardless of her food intake she cannot seem to gain any weight. Recent labs have been within normal limits. Recent CT scan shows no acute process in the abdomen or pelvis. Last EGD was completed in 2021. I recommend repeat EGD for evaluation of weight loss, nausea, and abdominal pain. She does take Dilaudid for her chronic leg pain, abdominal x-ray ordered to assess stool burden to see if this is contributing to any of her symptoms. She does take both daily senna and Colace as needed, we will continue this. She agrees with above plan, and verbalizes understanding. She is encouraged to reach out with any questions or concerns. 1. Right upper quadrant abdominal pain - ICD9: 789.01, ICD10: R10.11 (primary diagnosis) - EGD DIAGNOSTIC 2. Anorexia - ICD9: 783.0, ICD10: R63.0 - EGD DIAGNOSTIC - XR ABDOMEN 2V ROUTINE SUPINE W UPRIGHT/DECUB/CTL 3. Abnormal weight loss - ICD9: 783.21, ICD10: R63.4 - EGD DIAGNOSTIC - XR ABDOMEN 2V ROUTINE SUPINE W UPRIGHT/DECUB/CTL 4. History of Mendy-en-Y gastric bypass - ICD9: V45.86, ICD10: Z98.84 - EGD DIAGNOSTIC 5. Change in stool caliber - ICD9: 787.99, ICD10: R19.5 - XR ABDOMEN 2V ROUTINE SUPINE W UPRIGHT/DECUB/CTL Theresa Rodríguez APRN.INVESTIGATIVE AGENT documented in this encounter Plan of Treatment Not on file documented as of this encounter Visit Diagnoses Not on filedocumented in this encounter Care Teams Travel Manager Relationship Specialty Start Date End Date Kami Olvera MD [address] [place] [address] PCP - General Family Medicine 02/01/17 David House MD [address] [place] [address] Physician Hematology/Oncology 07/27/21 Rubens Singh MD [address] [place] [address] Physician Hematology/Oncology 10/08/21 [facility] Provider 08/30/21 documented as of this encounter
--- OUTSIDE RECORDS SUMMARY | 2024-11-16 08:59 | XMS_ITS | Encounter Summary ---
Author Organization [facility] Address [address] [place] [address] Care Team Providers Care Ged Preparation Teacher Name Role Phone JustoDevonte page Carlos Alberto RIVAS Primary Care Provider Kami Olvera MD Primary Care Provider [phone] Jazzy Dunn RN Unavailable [phone] David House MD Unavailable [phone] Odette Lopez PA-C Unavailable [phone] Rubens Singh MD Unavailable [phone] Source Comments In the event this information is protected by the Federal Confidentiality of Alcohol and Drug AbusePatient Records regulations: The Federal rules restrict any use of the information to criminally investigate or prosecute any alcohol or drug abuse patient.[facility] Encounter Details Date Type Department Care Team (Late st Contact Info) Description 04/01/2014 Patient Msg Medical Records [address] [place] [address] Provider, [facility]cf RE: Request an Appointment Social [...] documented as of this encounter Care Teams Ged Preparation Teacher Relationship Specialty Start Date End Date Devonte Kemp DO PCP - General Family Medicine 05/03/13 01/31/17 Kami Olvera MD [address] [place] [address] PCP - General Family Medicine 02/01/17 Jazzy Dunn RN [address] [facility] [place] [address] Specialty Bottle Inspector Hematology/Oncology 07/27/21 04/30/23 David House MD [address] [facility] [place] [address] Physician Hematology/Oncology 07/27/21 Odette Lopez, PA-C [address] [facility] [place] [address] Physician Shipping Lead Hematology/Oncology 07/27/21 Rubens Singh MD [address] [facility] [place] [address] Physician Hematology/Oncology 10/08/21 [facility] Palliative Medicine Provider 08/30/21 documented as of this encounter
--- OUTSIDE RECORDS SUMMARY | 2024-11-16 08:59 | XMS_ITS | Encounter Summary ---
Author Organization [facility] Address [address] [place] [address] Care Team Providers Care Cmm Inspector Name Role Phone JustoDevonte page Carlos Alberto RIVAS Primary Care Provider Kami Olvera MD Primary Care Provider [phone] Jazzy Dunn RN Unavailable [phone] David House MD Unavailable [phone] Odette Lopez PA-C Unavailable [phone] Rubens Singh MD Unavailable [phone] Source Comments In the event this information is protected by the Federal Confidentiality of Alcohol and Drug AbusePatient Records regulations: The Federal rules restrict any use of the information to criminally investigate or prosecute any alcohol or drug abuse patient.[facility] Encounter Details Date Type Department Care Team (Late st Contact Info) Description 04/01/2014 Patient Msg Medical Records [address] [place] [id number] Provider, Ccf RE: Appointment Cancellation Request Social [...] documented as of this encounter Care Teams Cmm Inspector Relationship Specialty Start Date End Date Devonte Kemp DO PCP - General Family Medicine 05/03/13 01/31/17 Kami Olvera MD [address] [place] [address] PCP - General Family Medicine 02/01/17 Jazzy Dunn RN [address] [facility] [place] [address] Specialty Order Runner Hematology/Oncology 07/27/21 04/30/23 David House MD [address] [place] [address] [place] [address] Physician Hematology/Oncology 07/27/21 Odette Lopez, PA-C [address] [facility] [place] [address] Physician Manager Of Financial Planning Hematology/Oncology 07/27/21 Rubens Singh MD [address] [facility] [place] [address] Physician Hematology/Oncology 10/08/21 [facility] Palliative Medicine Provider 08/30/21 documented as of this encounter
--- OUTSIDE RECORDS SUMMARY | 2024-11-16 08:59 | XMS_ITS | Encounter Summary ---
Author Organization [facility] Address [address] [place] [address] Care Team Providers Care Protective Service Specialist Name Role Phone Kami Olvera MD Primary Care Provider [phone] David House MD Unavailable [phone] Rubens Singh MD Unavailable [phone] Source Comments In the event this information is protected by the Federal Confidentiality of Alcohol and Drug AbusePatient Records regulations: The Federal rules restrict any use of the information to criminally investigate or prosecute any alcohol or drug abuse patient.[facility] Encounter Details Date Type Department Care Team (Late st Contact Info) Description 08/06/2023 [place] [address] Provider, Cc MRI Screening Questionnaire Completion Required Social History Tobacco Use Types Packs/Day Years [...] place to sleep or slept in a custodial (including now)? No 09/08/2021 Area Deprivation Index Answer Date Juan rded National Score (1-100), lower number is lower ri sk 73 10/14/2022 State Score (1-10), lower number is lower risk 6 10/14/2022 Data from: https://www.neigh borhoodatlas.medicine.[facility].edu/. Last address used for calculation [address] [...] on filedocumented in this encounter Care Teams Protective Service Specialist Relationship Specialty Start Date End Date Kami Olvera MD [address] [place] [id number] PCP - General Family Medicine 02/01/17 David House MD [address] [place] [phone] Physician Hematology/Oncology 07/27/21 Rubens Singh MD [address] [place] [address] Physician Hematology/Oncology 10/08/21 [facility] Palliative Medicine Provider 08/30/21 documented as of this encounter
--- OUTSIDE RECORDS SUMMARY | 2024-11-16 08:59 | XMS_ITS | Encounter Summary ---
Author Organization [facility] Address [address] [place] [address] Care Team Providers Care Residential Supervisor Name Role Phone JustoDevonte page Carlos Alberto RIVAS Primary Care Provider Kami Olvera MD Primary Care Provider [phone] Jazzy Dunn RN Unavailable [phone] David House MD Unavailable [phone] Odette Lopez PA-C Unavailable [phone] Rubens Singh MD Unavailable [phone] Source Comments In the event this information is protected by the Federal Confidentiality of Alcohol and Drug AbusePatient Records regulations: The Federal rules restrict any use of the information to criminally investigate or prosecute any alcohol or drug abuse patient.[facility] Encounter Details Date Type Department Care Team (Late st Contact Info) Description 04/24/2014 Patient Msg Medical Records [address] [place] [address] Provider, Ccf Social History Tobacco Use Types Packs/Day Years [...] hearing? Answer Date of Assessment Author No 04/24/2014 2:52 PM Felicity Clinton LPN * Are you blind or do you have serious difficulty seeing, even when wearing glasses? Answer Date of Assessment Author No 04/24/2014 2:52 PM Felicity Clinton LPN * Do you have serious difficulty walking or climbing stairs? Answer Date of Assessment Author No 04/24/2014 2:52 PM Felicity Clinton LPN * Do you have difficulty dressing or bathing? Answer Date of Assessment Author No 04/24/2014 2:52 PM Felicity Clinton LPN * Because of a physical, mental, or emotional condition, do you have difficulty doing errands alone such as visiting a doctor's office or shopping? Answer Date of Assessment Author No 04/24/2014 2:52 PM Felicity Clinton LPN documented as of this encounter Mental Status * Because of a physical, mental, or emotional condition, do you have serious difficulty concentrating, remembering, or making decisions? Answer Entry Date Author No 04/24/2014 2:52 PM Felicity Clinton LPN documented in this [...] documented as of this encounter Care Teams Residential Supervisor Relationship Specialty Start Date End Date JustoDevonte DO PCP - General Family Medicine 05/03/13 01/31/17 Kami Olvera MD [address] [place] [address] PCP - General Family Medicine 02/01/17 Jazzy Dunn RN [address] [facility] [place] [address] Specialty Steak Tenderizer Machine Hematology/Oncology 07/27/21 04/30/23 David House MD [address] [facility] [place] [address] Physician Hematology/Oncology 07/27/21 Odette Lopez PAPonchoC [address] [facility] [place] [address] Physician Lamp Shade Assembler Hematology/Oncology 07/27/21 Rubens Singh MD [address] [facility] [place] [address] Physician Hematology/Oncology 10/08/21 [facility] Palliative Medicine Provider 08/30/21 documented as of this encounter
--- OUTSIDE RECORDS SUMMARY | 2024-11-16 08:59 | XMS_ITS | Encounter Summary ---
Author Organization [facility] Address [address] [place] [address] Care Team Providers Care Wall Covering Installer Name Role Phone Kami Olvera MD Primary Care Provider [phone] David House MD Unavailable [phone] Rubens Singh MD Unavailable [phone] Source Comments In the event this information is protected by the Federal Confidentiality of Alcohol and Drug AbusePatient Records regulations: The Federal rules restrict any use of the information to criminally investigate or prosecute any alcohol or drug abuse patient.[facility] Encounter Details Date Type Department Care Team (Late st Contact Info) Description 07/12/[address] [facility] Surgery [address] [place] [place] [address] [place] [address] [place] [address] Social History Tobacco Use Types Packs/Day Years [...] place to sleep or slept in a care home (including now)? No 09/08/2021 Area Deprivation Index Answer Date Juan rded National Score (1-100), lower number is lower ri sk 73 10/14/2022 State Score (1-10), lower number is lower risk 6 10/14/2022 Data from: https://www.neigh borhoodatlas.medicine.[facility].edu/. Last address used for calculation [address] [...] on filedocumented in this encounter Care Teams Wall Covering Installer Relationship Specialty Start Date End Date Kami Olvera MD [address] [place] [phone] PCP - General Family Medicine 02/01/17 David House MD [address] [place] [phone] Physician Hematology/Oncology 07/27/21 Rubens Singh MD [address] [place] [address] Physician Hematology/Oncology 10/08/21 [facility] Palliative Medicine Provider 08/30/21 documented as of this encounter
--- OUTSIDE RECORDS SUMMARY | 2024-11-16 08:59 | XMS_ITS | Encounter Summary ---
Author Organization [facility] Address [address] [place] [address] Care Team Providers Care Knitting Tester Name Role Phone Kami Olvera MD Primary Care Provider [phone] David House MD Unavailable [phone] Rubens Sinhg MD Unavailable [phone] Source Comments In the event this information is protected by the Federal Confidentiality of Alcohol and Drug AbusePatient Records regulations: The Federal rules restrict any use of the information to criminally investigate or prosecute any alcohol or drug abuse patient.[facility] Encounter Details Date Type Department Care Team (Late st Contact Info) Description 06/28/2023 Patient Msg Gastroenterology [address] [facility] [place], [place] [address] [place] [address] [place] [address] Prep instructions Social History Tobacco Use Types Packs/Day [...] lower risk 6 10/14/2022 Data from: https://www.neigh borhoodatlas.medicine.[facility].edu/. Last address used for calculation [...] of Assessment Author No 06/23/2021 1:25 PM NAYET Sarah Hill RN documented as of this [...] on filedocumented in this encounter Care Teams Knitting Tester Relationship Specialty Start Date End Date Kami Olvera MD [address] [place] [phone] PCP - General Family Medicine 02/01/17 David Huose MD [address] [place] [phone] Physician Hematology/Oncology 07/27/21 Rubens Singh MD [address] [place] [address] Physician Hematology/Oncology 10/08/21 [facility] Palliative Medicine Provider 08/30/21 documented as of this encounter
[2024-11-16] MEDS: PROCHLORPERAZINE 10 MG/2 ML VIAL IV (09:33)
[2024-11-16] MEDS: 0.9 % SODIUM CHLORIDE 1,000 ML 1000 ML IV (09:33)
[2024-11-16] MEDS: FAMOTIDINE/PF 20 MG/2 ML VIAL IV (09:33)
[2024-11-16 09:38] LABS: Hematocrit 39.2 % (36.0-48.0); Hemoglobin 13.7 g/dL (12.0-16.0); Immature Granulocytes Abs Auto 0.02 10^3/uL (0.00-0.03); Immature Granulocytes Pct Auto 0.2 % (0.0-0.5); Lymphocytes Absolute Auto 1.9 10^3/uL (1.2-3.8); Mean Corpuscular HGB Conc 34.9 g/dL (29.9-35.2); Mean Corpuscular Hemoglobin 28.5 pg (26.7-34.0); Mean Corpuscular Volume 81.7 fL (81.0-99.0); Platelet Count 253 10^3/uL (150-450); Red Blood Count 4.80 10^6/uL (4.20-5.40); White Blood Count 8.1 10^3/uL (4.0-11.0)
--- NOTE | 2024-11-16 09:40 | ED.GENADUL1 ---
HPI HPI - General Adult General Chief complaint: Nausea/Vomiting/Diarrhea Stated complaint: DIARRHEA VOMITING Time Seen by Provider: 11/16/24 09:00 Mode of arrival: walk-in History of Present Illness HPI narrative: The patient is a 29-year-old female is coming to the ER with few days history of diarrhea that was exacerbated over the last 24 hours with vomiting, was already evaluated in [facility] at that time she had a complete blood workup and a CAT scan that showed no acute pathology and the patient was discharged home with supportive care Patient started having nausea last night and she vomited 3 times since then She denies any abdominal pain at any time and she also denies any fever or chills The patient have a significant history of previous surgeries and biliary stenting in addition to the fact that she also have a history of Hodgkin lymphoma that was treated when she was younger The patient have an active lymph node finding in her left side of the neck that apparently will have a workup for it next week in [facility] Related Data Home Medications ?Medication ?Instructions ?Recorded ?Confirmed bupropion HCl 100 mg tablet,12 hr 100 mg PO BID 11/16/24 11/16/24 sustained-release (Wellbutrin SR) ciprofloxacin HCl 500 mg tablet mg 11/16/24 dicyclomine 10 mg capsule mg 11/16/24 galcanezumab-gnlm 120 mg/mL 120 mg subcut .monthy 11/16/24 11/16/24 subcutaneous pen injector (Emgality Pen) hydromorphone 2 mg tablet 2 mg PO Q8H PRN pain 11/16/24 11/16/24 loperamide 2 mg tablet mg 11/16/24 (Anti-Diarrheal (loperamide)) ondansetron 4 mg disintegrating mg 11/16/24 tablet pantoprazole 40 mg tablet,delayed mg PO 11/16/24 release ubrogepant 100 mg tablet (Ubrelvy) mg 11/16/24 venlafaxine 75 mg capsule,extended 225 mg PO DAILY 11/16/24 11/16/24 release 24 hr (Effexor XR) zolpidem 5 mg tablet (Ambien) 5 mg PO BEDTIME PRN sleep 11/16/24 11/16/24 Previous Rx's ?Medication ?Instructions ?Recorded promethazine 25 mg tablet 25 mg PO TID PRN nausea and 11/16/24 vomiting #20 tabs Allergies Allergy/AdvReac Type Severity Reaction Status Date / Time diphenhydramine (From Allergy Severe Rash Verified 11/16/24 09:00 Benadryl) Review of Systems ROS Status of ROS 10 or more systems reviewed and unremarkable except as noted in history and below PFSH PFSH Social History Little interest or pleasure in doing things: not at all Feeling down, depressed, or hopeless: not at all Exam Narrative Exam Narrative: Nurses notes and vital signs reviewed and patient is not hypoxic. General: Well-appearing and in no apparent distress. Skin: Warm, dry, no pallor noted. No rash. Head: Normocephalic, atraumatic.. Cardiovascular: Regular Rate and Rhythm without murmur, gallop or rub. Respiratory: No accessory muscle use or respiratory distress. Lungs are clear to auscultation, no wheezing, rales or rhonchi Chest Wall: no tenderness Back: No midline thoracic or lumbar vertebral tenderness. No CVA tenderness Musculoskeletal: normal ROM, no calf or popliteal tenderness, no lower extremity edema/swelling GI: Abdomen is soft, non-distended. Normal bowel sounds. Scar previous surgery No masses appreciated. No tenderness to palpation. No rebound, guarding, or rigidity noted. Neurological: A&O x4. No cranial nerve dysfunction observed. No truncal ataxia. Moves all extremities. Sensation intact. Psychiatric: Cooperative and interactive. Normal mood and affect. Constitutional Vital Signs, click to edit/add: Last Vital Signs Temp 98 F 11/16/24 08:56 Pulse 66 11/16/24 08:56 Resp 18 11/16/24 08:56 BP 134/80 11/16/24 08:56 Pulse Ox 100 11/16/24 08:56 O2 Del Method Room Air 11/16/24 08:56 Course Vital Signs Vital signs: Vital Signs Temperature 98 F 11/16/24 08:56 Pulse Rate 66 11/16/24 08:56 Respiratory Rate 18 11/16/24 08:56 Blood Pressure 134/80 11/16/24 08:56 Pulse Oximetry 100 11/16/24 08:56 Oxygen Delivery Method Room Air 11/16/24 08:56 Temperature 98 F 11/16/24 08:56 Pulse Rate 66 11/16/24 08:56 Respiratory Rate 18 11/16/24 08:56 Blood Pressure 134/80 11/16/24 08:56 Pulse Oximetry 100 11/16/24 08:56 Oxygen Delivery Method Room Air 11/16/24 08:56 Medical Decision Making [facility] Narrative Medical decision making narrative: The patient had diarrhea for a week and exacerbated with the 3 episode of vomiting since last night, she have some nausea now and she tried some Zofran at home that did not help her symptoms Patient had an IV established and fluid provided in addition to Compazine and Pepcid after which she was feeling better The patient had her blood workup drawn here in the ER and she had CBC showing no leukocytosis and the chemistry showing some mild lipase elevation at 80 which is mostly secondary to gastroenteritis The patient had a previous blood workup from [facility] reviewed including the CAT scan that was done in our system that showed no acute pathology The patient was discharged home with Phenergan with instruction to follow-up with her primary care doctor and come back in case any new symptoms Patient also provided with potassium in the ER because of her low potassium and discharged home with supportive care The patient is to follow up with primary care physician in next 2-3 days or to return to the emergency department should any of the signs or symptoms worsen or new symptoms develop. The patient agrees with the following Diagnosis and Treatment plan and the patient will be discharged home. Lab Data Labs: Lab Results 11/16/24 Range/Units 09:23 WBC 8.1 (4.0-11.0) 10^3/uL RBC 4.80 (4.20-5.40) 10^6/uL Hgb 13.7 (12.0-16.0) g/dL Hct 39.2 (36.0-48.0) % MCV 81.7 (81.0-99.0) fL MCH 28.5 (26.7-34.0) pg MCHC 34.9 (29.9-35.2) g/dL RDW 11.5 (11.0-15.0) % Plt Count 253 (150-450) 10^3/uL MPV 10.0 (9.5-13.5) fL Neut % (Auto) 66.6 (43.0-75.0) % Lymph % (Auto) 23.9 (20.5-60.0) % [place] % (Auto) 8.2 (1.7-12.0) % Eos % (Auto) 0.4 L (0.9-7.0) % Baso % (Auto) 0.7 (0.2-2.0) % Neut # (Auto) 5.4 (1.4-6.5) 10^3/uL Lymph # (Auto) 1.9 (1.2-3.8) 10^3/uL [place] # (Auto) 0.7 (0.3-0.8) 10^3/uL Eos # (Auto) 0.0 (0.0-0.7) 10^3/uL Baso # (Auto) 0.1 (0.0-0.1) 10^3/uL Abs Immat Gran (auto) 0.02 (0.00-0.03) 10^3/uL Imm/Tot Granulo (auto) 0.2 (0.0-0.5) % Sodium 144 (136-145) mmol/L Potassium 3.0 L (3.5-5.1) mmol/L Chloride 104 (98-107) mmol/L Carbon Dioxide 27.0 (21.0-32.0) mmol/L Anion Gap 16.0 BUN 11.0 (7.0-18.0) mg/dL Creatinine 0.78 (0.55-1.02) mg/dL Est GFR ( Amer) >60 (>=60 mL/min/1.73m^2) Est GFR (Non-Af Amer) >60 (>=60 mL/min/1.73m^2) BUN/Creatinine Ratio 14.1 Glucose 101 (74-106) mg/dL Calcium 9.0 (8.5-10.1) mg/dL Total Bilirubin 0.6 (0.2-1.0) mg/dL AST 10 L (15-37) U/L ALT 13 L (14-59) U/L Alkaline Phosphatase 68 (46-116) U/L Total Protein 7.8 (6.4-8.2) g/dL Albumin 4.4 (3.4-5.0) g/dL Globulin 3.4 g/dL Albumin/Globulin Ratio 1.3 Lipase 89.0 H (16.0-77.0) U/L Serum HCG, Qual Negative (NEGATIVE) Discharge Plan Discharge Chief Complaint: Nausea/Vomiting/Diarrhea Clinical Impression: Gastroenteritis Patient Disposition: Home, Self-Care Time of Disposition Decision: 10:17 Condition: Good Prescriptions / Home Meds: New promethazine 25 mg tablet 25 mg PO TID PRN (Reason: nausea and vomiting) Qty: 20 0RF No Action hydromorphone 2 mg tablet 2 mg PO Q8H PRN (Reason: pain) venlafaxine [Effexor XR] 75 mg capsule,extended release 24hr 225 mg PO DAILY bupropion HCl [Wellbutrin SR] 100 mg tablet sustained-release 12 hr 100 mg PO BID Emgality Pen 120 mg/mL pen injector 120 mg subcut .monthy zolpidem [Ambien] 5 mg tablet 5 mg PO BEDTIME PRN (Reason: sleep) loperamide [Anti-Diarrheal (loperamide)] 2 mg tablet ciprofloxacin HCl 500 mg tablet pantoprazole 40 mg tablet,delayed release (DR/EC) PO ondansetron 4 mg tablet,disintegrating dicyclomine 10 mg capsule Ubrelvy 100 mg tablet Print Language: Honduran Instructions: Hypokalemia (ED), Gastroenteritis (DC) Referrals: STEFANY SAM [Primary Care Provider, Unknown] - 1 week Discharge Date/Time: 11/16/24 10:33
[2024-11-16 09:59] LABS: Alanine Aminotransferase 13 U/L (14-59); Albumin Globulin Ratio 1.3; Albumin Level 4.4 g/dL (3.4-5.0); Alkaline Phosphatase 68 U/L (46-116); Anion Gap 16.0; Aspartate Amino Transferase 10 U/L (15-37); Blood Urea Nitrogen 11.0 mg/dL (7.0-18.0); Calcium 9.0 mg/dL (8.5-10.1); Carbon Dioxide 27.0 mmol/L (21.0-32.0); Chloride 104 mmol/L (98-107); Estimated GFR (African America >60 (>=60 mL/min/1.73m^2); Estimated GFR (Non-African Ame >60 (>=60 mL/min/1.73m^2); Globulin 3.4 g/dL; Glucose 101 mg/dL (74-106); Lipase 89.0 U/L (16.0-77.0); Potassium 3.0 mmol/L (3.5-5.1); Sodium 144 mmol/L (136-145); Total Protein 7.8 g/dL (6.4-8.2)
[2024-11-16] MEDS: POTASSIUM BICARBONATE/CIT 25 MEQ TABLET EFF PO (10:25)
== END 2024-11-16 10:33 | disposition home or self-care (01) ==
PROVIDERS: Emergency Provider Emergency Medicine; PCP Family Medicine
DX: K52.9 Noninfective gastroenteritis and colitis, unspecified (principal); Z85.71 Personal history of Hodgkin lymphoma
CPT/HCPCS: 36415; 80053; 83690; 84703; 85025; 96361; 96374; 96375; 99284; J0780; J3490

== ENCOUNTER 2024-11-18 19:08 | Observation (INO) | payer BC, SELFPAY ==
[2024-11-18 19:13] VITALS: BP 155/97; PULSE 75; TEMP 36.7; O2SAT 100; BMI 21.1
--- NOTE | 2024-11-18 19:22 | ED.ABDPAIN1 ---
Documented by User: [email or web address] Perezon 11/18/24 21:41 HPI - Abdominal Pain General Chief Complaint: Abdominal Pain Stated Complaint: ABDOMINAL PAIN Time Seen by Provider: 11/18/24 19:11 Source: patient Mode of arrival: walk-in Limitations: no limitations History of Present Illness HPI narrative: 29 year old female presents to the ED for RUQ pain, N/V/D. Onset was a few days ago. She was evaluated here 11/16/24 for the same. She had a CT scan of the abdomen/pelvis 11/13/24. Reports previous bile duct surgery, reconstruction. States she has hx Hodgkin's lymphoma. States she an upcoming appointment with oncology due to two new growths in her neck area. Denies fever, chills, dizziness, CP, SOB. Denies urinary symptoms. She was started on Cipro and took the first yesterday which has been the only dose. She is prescribed dilaudid for pain. Related Data Home Medications ?Medication ?Instructions ?Recorded ?Confirmed bupropion HCl 100 mg tablet,12 hr 100 mg PO BID 11/16/24 11/16/24 sustained-release (Wellbutrin SR) ciprofloxacin HCl 500 mg tablet mg 11/16/24 dicyclomine 10 mg capsule mg 11/16/24 galcanezumab-gnlm 120 mg/mL 120 mg subcut .monthy 11/16/24 11/16/24 subcutaneous pen injector (Emgality Pen) hydromorphone 2 mg tablet 2 mg PO Q8H PRN pain 11/16/24 11/16/24 loperamide 2 mg tablet mg 11/16/24 (Anti-Diarrheal (loperamide)) ondansetron 4 mg disintegrating mg 11/16/24 tablet pantoprazole 40 mg tablet,delayed mg PO 11/16/24 release ubrogepant 100 mg tablet (Ubrelvy) mg 11/16/24 venlafaxine 75 mg capsule,extended 225 mg PO DAILY 11/16/24 11/16/24 release 24 hr (Effexor XR) zolpidem 5 mg tablet (Ambien) 5 mg PO BEDTIME PRN sleep 11/16/24 11/16/24 Previous Rx's ?Medication ?Instructions ?Recorded promethazine 25 mg tablet 25 mg PO TID PRN nausea and 08/30/25 vomiting #20 tabs Allergies Allergy/AdvReac Type Severity Reaction Status Date / Time diphenhydramine (From Allergy Severe Rash Verified 11/18/24 19:19 Benadryl) Review of Systems ROS Constitutional Reports: fatigue; Denies: fever or chills Ears, nose, mouth, and throat Denies: throat pain or neck pain Cardiovascular Denies: chest pain Respiratory Denies: shortness of breath Gastrointestinal Reports: abdominal pain, nausea, vomiting and diarrhea Genitourinary Denies: painful urination, urinary frequency, urinary urgency or blood in urine Musculoskeletal Denies: back pain or neck pain Neurological Denies: headache or dizziness PFSH PFSH Social History Little interest or pleasure in doing things: not at all Feeling down, depressed, or hopeless: not at all Exam Constitutional Vital Signs, click to edit/add: Last Vital Signs Temp 98.1 F 11/18/24 19:13 Pulse 75 11/18/24 19:13 Resp 16 11/18/24 19:13 BP 155/97 H 11/18/24 19:13 Pulse Ox 100 11/18/24 19:36 O2 Del Method Room Air 11/18/24 19:36 Common normals: no apparent distress and oriented x3 General appearance: cooperative HENMT Common normals: moist oral mucous membranes Eye Common normals: conjunctivae normal and no scleral icterus Neck & C-Spine Common normals: supple Chest Chest: symmetrical chest wall rise Respiratory Common normals: normal respiratory effort Effort & inspection: able to speak in complete sentences and symmetric chest movement Cardio Common normals: regular rate and regular rhythm GI Common normals: Normal to inspection, nondistended, normoactive bowel sounds present and soft to palpation Palpation: tender Details: RUQ Neuro Common normals: oriented x3, moves all extremities and no focal motor deficits Sensorium/orientation: awake and alert Speech: speech normal Course Vital Signs Vital signs: Vital Signs Temperature 98.1 F 11/18/24 19:13 Pulse Rate 75 11/18/24 19:13 Respiratory Rate 16 11/18/24 19:13 Blood Pressure 155/97 H 11/18/24 19:13 Pulse Oximetry 100 11/18/24 19:13 Oxygen Delivery Method Room Air 11/18/24 19:13 Temperature 98.1 F 11/18/24 19:13 Pulse Rate 75 11/18/24 19:13 Respiratory Rate 16 11/18/24 19:13 Blood Pressure 155/97 H 11/18/24 19:13 Pulse Oximetry 100 11/18/24 19:36 Oxygen Delivery Method Room Air 11/18/24 19:36 MDM - Abdominal Pain MDM Narrative Medical decision making narrative: Lipase was 159 today; it was 89 at the previous ED visit on 11/16/24. CT scan was pending. Care was resumed to Dr. Norwood. See her dictation for further evaluation and treatment. Differential Diagnosis Differential diagnosis: Likely abdominal pain, gastroenteritis and small bowel obstruction Medical Records Attestation: I reviewed the patient's medical records. Lab Data Attestation: I reviewed the patient's lab results. Labs: Lab Results 11/18/24 11/18/24 Range/Units 19:30 19:40 WBC 9.3 (4.0-11.0) 10^3/uL RBC 4.71 (4.20-5.40) 10^6/uL Hgb 13.2 (12.0-16.0) g/dL Hct 38.8 (36.0-48.0) % MCV 82.4 (81.0-99.0) fL MCH 28.0 (26.7-34.0) pg MCHC 34.0 (29.9-35.2) g/dL RDW 11.8 (11.0-15.0) % Plt Count 300 (150-450) 10^3/uL MPV 9.9 (9.5-13.5) fL Neut % (Auto) 59.6 (43.0-75.0) % Lymph % (Auto) 28.7 (20.5-60.0) % [place] % (Auto) 9.4 (1.7-12.0) % Eos % (Auto) 1.3 (0.9-7.0) % Baso % (Auto) 0.8 (0.2-2.0) % Neut # (Auto) 5.6 (1.4-6.5) 10^3/uL Lymph # (Auto) 2.7 (1.2-3.8) 10^3/uL [place] # (Auto) 0.9 H (0.3-0.8) 10^3/uL Eos # (Auto) 0.1 (0.0-0.7) 10^3/uL Baso # (Auto) 0.1 (0.0-0.1) 10^3/uL Abs Immat Gran (auto) 0.02 (0.00-0.03) 10^3/uL Imm/Tot Granulo (auto) 0.2 (0.0-0.5) % Sodium 143 (136-145) mmol/L Potassium 3.6 (3.5-5.1) mmol/L Chloride 104 (98-107) mmol/L Carbon Dioxide 29.4 (21.0-32.0) mmol/L Anion Gap 13.2 BUN 11.0 (7.0-18.0) mg/dL Creatinine 0.93 (0.55-1.02) mg/dL Est GFR ( Amer) >60 (>=60 mL/min/1.73m^2) Est GFR (Non-Af Amer) >60 (>=60 mL/min/1.73m^2) BUN/Creatinine Ratio 11.8 Glucose 94 (74-106) mg/dL Calcium 9.0 (8.5-10.1) mg/dL Total Bilirubin 0.3 (0.2-1.0) mg/dL AST 8 L (15-37) U/L ALT 17 (14-59) U/L Alkaline Phosphatase 72 (46-116) U/L Total Protein 7.3 (6.4-8.2) g/dL Albumin 4.1 (3.4-5.0) g/dL Globulin 3.2 g/dL Albumin/Globulin Ratio 1.3 Lipase 159.0 H (16.0-77.0) U/L Urine Color Yellow (YELLOW) Urine Clarity Clear (CLEAR) Urine pH 6.0 (5.0-9.0) Ur Specific [place] >=1.030 A (1.005-1.025) Urine Protein Negative (NEG/TRACE) mg/dL Urine Glucose (UA) Negative (NEGATIVE) mg/dL Urine Ketones Negative (NEGATIVE) mg/dL Urine Occult Blood Negative (NEGATIVE) Urine Nitrite Negative (NEGATIVE) Urine Bilirubin Negative (NEGATIVE) Urine Urobilinogen 0.2 (0.2-1.0) EU/dL Ur Leukocyte Esterase Negative (NEGATIVE) Urine HCG, Qual Negative (NEGATIVE) Discharge Plan Discharge Chief Complaint: Abdominal Pain Clinical Impression: Abdominal pain, Nausea, vomiting, and diarrhea Prescriptions / Home Meds: No Action hydromorphone 2 mg tablet 2 mg PO Q8H PRN (Reason: pain) venlafaxine [Effexor XR] 75 mg capsule,extended release 24hr 225 mg PO DAILY bupropion HCl [Wellbutrin SR] 100 mg tablet sustained-release 12 hr 100 mg PO BID Emgality Pen 120 mg/mL pen injector 120 mg subcut .monthy zolpidem [Ambien] 5 mg tablet 5 mg PO BEDTIME PRN (Reason: sleep) loperamide [Anti-Diarrheal (loperamide)] 2 mg tablet ciprofloxacin HCl 500 mg tablet pantoprazole 40 mg tablet,delayed release (DR/EC) PO ondansetron 4 mg tablet,disintegrating dicyclomine 10 mg capsule Ubrelvy 100 mg tablet promethazine 25 mg tablet 25 mg PO TID PRN (Reason: nausea and vomiting) Qty: 20 0RF Print Language: [place] Referrals: STEFANY SAM [Primary Care Provider, Unknown] - 1 week Documented by User: Maryan Lopez DO 11/18/24 23:30 HPI - Abdominal Pain General Chief Complaint: Abdominal Pain Stated Complaint: ABDOMINAL PAIN Time Seen by Provider: 11/18/24 19:11 Related Data Home Medications ?Medication ?Instructions ?Recorded ?Confirmed bupropion HCl 100 mg tablet,12 hr 100 mg PO BID 11/16/24 11/16/24 sustained-release (Wellbutrin SR) ciprofloxacin HCl 500 mg tablet mg 11/16/24 dicyclomine 10 mg capsule mg 11/16/24 galcanezumab-gnlm 120 mg/mL 120 mg subcut .monthy 11/16/24 11/16/24 subcutaneous pen injector (Emgality Pen) hydromorphone 2 mg tablet 2 mg PO Q8H PRN pain 11/16/24 11/16/24 loperamide 2 mg tablet mg 11/16/24 (Anti-Diarrheal (loperamide)) ondansetron 4 mg disintegrating mg 11/16/24 tablet pantoprazole 40 mg tablet,delayed mg PO 11/16/24 release ubrogepant 100 mg tablet (Ubrelvy) mg 11/16/24 venlafaxine 75 mg capsule,extended 225 mg PO DAILY 11/16/24 11/16/24 release 24 hr (Effexor XR) zolpidem 5 mg tablet (Ambien) 5 mg PO BEDTIME PRN sleep 11/16/24 11/16/24 Previous Rx's ?Medication ?Instructions ?Recorded promethazine 25 mg tablet 25 mg PO TID PRN nausea and 11/16/24 vomiting #20 tabs Allergies Allergy/AdvReac Type Severity Reaction Status Date / Time diphenhydramine (From Allergy Severe Rash Verified 11/18/24 19:19 Benadryl) PFSH PFSH Social History Little interest or pleasure in doing things: not at all Feeling down, depressed, or hopeless: not at all Exam Constitutional Vital Signs, click to edit/add: Last Vital Signs Temp 98.1 F 11/18/24 19:13 Pulse 75 11/18/24 19:13 Resp 16 11/18/24 19:13 BP 155/97 H 11/18/24 19:13 Pulse Ox 100 11/18/24 19:36 O2 Del Method Room Air 11/18/24 19:36 Course Vital Signs Vital signs: Vital Signs Temperature 98.1 F 11/18/24 19:13 Pulse Rate 75 11/18/24 19:13 Respiratory Rate 16 11/18/24 19:13 Blood Pressure 155/97 H 11/18/24 19:13 Pulse Oximetry 100 11/18/24 19:13 Oxygen Delivery Method Room Air 11/18/24 19:13 Temperature 98.1 F 11/18/24 19:13 Pulse Rate 75 11/18/24 19:13 Respiratory Rate 16 11/18/24 19:13 Blood Pressure 155/97 H 11/18/24 19:13 Pulse Oximetry 100 11/18/24 19:36 Oxygen Delivery Method Room Air 11/18/24 19:36 MDM - Abdominal Pain MDM Narrative Medical decision making narrative: Lipase was 159 today; it was 89 at the previous ED visit on 11/16/24. CT scan was pending. Care was resumed to Dr. Norwood. See her dictation for further evaluation and treatment. Dr. Norwood: The patient was signed out to me at 22:00. I was given in signout that the patient is what are [employer] in [facility] [address]. She is having incredibly bad abdominal pain that is in the right upper quadrant. It is associated with nausea, vomiting, and diarrhea. The nonbilious nonbloody emesis occurred on Monday, 4 days ago. But since then the patient's had copious amounts of watery diarrhea. Patient states everything she eats or drinks goes right through her. There is been no blood or mucus present. The patient has not been on any recent antibiotics. The patient does have somewhat of a complex GI history. She had her gallbladder moved years ago. However, when they were removing the gallbladder they nicked some of the biliary ducts and she had to have a bile stent and some reconstruction. Patient however has never had a bowel obstruction. Patient has had so much diarrhea that she has no strength. Patient states that she has no energy to do anything. Denies any sick contacts or recent travel. No fever or chills. This is the patient's third emergency department visit for the same. She was seen initially at [facility] emergency department. She had a CT scan on November 13 and there was no acute finding appreciated. She subsequently presented here November 16 and had laboratories performed which were really unremarkable and she had a nonfocal exam. And she is coming back today with again terrible pain with a lipase that is increased from 89-159. Patient was apparently started on Cipro yesterday and has had 1 dose yesterday. Patient has a history of Hodgkin's lymphoma. She was in remission but apparently they just found a couple nodules in her neck. She is scheduled to see a new oncologist soon. The patient is on chronic pain management with Dilaudid 2 mg 4 times a day. She is not currently undergoing chemotherapy. I was called into the patient's room at 22:04. Patient at that time was having pain in the right upper quadrant this an 8 out of 10. She states that she is unable to keep herself hydrated and she is afraid to go home. I am not concerned that the patient is going to need GI or surgery. The patient has no evidence of a bowel obstruction. No evidence of any active bleeding. I do think that the patient could stay here with gentle hydration continued. In addition, although the patient has a history of Hodgkin's lymphoma I do not think that the patient is going to need to see an oncologist. They would not do anything in an episode of acute infectious or inflammatory colitis. 23:29 I did have an opportunity speak to Dr. Addison who was extremely helpful in facilitating the care and treatment of this patient. He does agree to accept the patient as an observation for continued hydration and refeeding the patient. Will also be able to further monitor her stool output. Lab Data Labs: Lab Results 11/18/24 11/18/24 Range/Units 19:30 19:40 WBC 9.3 (4.0-11.0) 10^3/uL RBC 4.71 (4.20-5.40) 10^6/uL Hgb 13.2 (12.0-16.0) g/dL Hct 38.8 (36.0-48.0) % MCV 82.4 (81.0-99.0) fL MCH 28.0 (26.7-34.0) pg MCHC 34.0 (29.9-35.2) g/dL RDW 11.8 (11.0-15.0) % Plt Count 300 (150-450) 10^3/uL MPV 9.9 (9.5-13.5) fL Neut % (Auto) 59.6 (43.0-75.0) % Lymph % (Auto) 28.7 (20.5-60.0) % [place] % (Auto) 9.4 (1.7-12.0) % Eos % (Auto) 1.3 (0.9-7.0) % Baso % (Auto) 0.8 (0.2-2.0) % Neut # (Auto) 5.6 (1.4-6.5) 10^3/uL Lymph # (Auto) 2.7 (1.2-3.8) 10^3/uL [place] # (Auto) 0.9 H (0.3-0.8) 10^3/uL Eos # (Auto) 0.1 (0.0-0.7) 10^3/uL Baso # (Auto) 0.1 (0.0-0.1) 10^3/uL Abs Immat Gran (auto) 0.02 (0.00-0.03) 10^3/uL Imm/Tot Granulo (auto) 0.2 (0.0-0.5) % Sodium 143 (136-145) mmol/L Potassium 3.6 (3.5-5.1) mmol/L Chloride 104 (98-107) mmol/L Carbon Dioxide 29.4 (21.0-32.0) mmol/L Anion Gap 13.2 BUN 11.0 (7.0-18.0) mg/dL Creatinine 0.93 (0.55-1.02) mg/dL Est GFR ( Amer) >60 (>=60 mL/min/1.73m^2) Est GFR (Non-Af Amer) >60 (>=60 mL/min/1.73m^2) BUN/Creatinine Ratio 11.8 Glucose 94 (74-106) mg/dL Calcium 9.0 (8.5-10.1) mg/dL Total Bilirubin 0.3 (0.2-1.0) mg/dL AST 8 L (15-37) U/L ALT 17 (14-59) U/L Alkaline Phosphatase 72 (46-116) U/L Total Protein 7.3 (6.4-8.2) g/dL Albumin 4.1 (3.4-5.0) g/dL Globulin 3.2 g/dL Albumin/Globulin Ratio 1.3 Lipase 159.0 H (16.0-77.0) U/L Urine Color Yellow (YELLOW) Urine Clarity Clear (CLEAR) Urine pH 6.0 (5.0-9.0) Ur Specific [place] >=1.030 A (1.005-1.025) Urine Protein Negative (NEG/TRACE) mg/dL Urine Glucose (UA) Negative (NEGATIVE) mg/dL Urine Ketones Negative (NEGATIVE) mg/dL Urine Occult Blood Negative (NEGATIVE) Urine Nitrite Negative (NEGATIVE) Urine Bilirubin Negative (NEGATIVE) Urine Urobilinogen 0.2 (0.2-1.0) EU/dL Ur Leukocyte Esterase Negative (NEGATIVE) Urine HCG, Qual Negative (NEGATIVE) Dr. Norwood: The patient's laboratories look unremarkable. CBC reveals no evidence of anemia or leukocytosis. Competence of metabolic panel is unremarkable. Lipase is normal albeit it did go up. And the patient's urinalysis is unremarkable. The patient does not have any inflammatory changes consistent with pancreatitis despite the lipase being elevated. Imaging Data CT scan - abdomen: Attestation: I have reviewed the pertinent imaging results. My impression: I have read and appreciated the board-certified radiologist interpretation. When I personally looked at the film myself the stool in her colon does not need to be constipated in appearance. It does not fit with her physical exam and HPI. Radiologist's impression: Board-certified radiologist interprets as status postcholecystectomy with trace pneumobilia likely related to prior surgery. There is extensive colonic stool burden which may be seen with constipation. There is small amount of free pelvic fluid nonspecific and may be physiologic versus reactive. There is a few scattered prominent mesenteric lymph nodes seen otherwise no lymphadenopathy. Discharge Plan Discharge Chief Complaint: Abdominal Pain Clinical Impression: Abdominal pain, Nausea, vomiting, and diarrhea Prescriptions / Home Meds: No Action hydromorphone 2 mg tablet 2 mg PO Q8H PRN (Reason: pain) venlafaxine [Effexor XR] 75 mg capsule,extended release 24hr 225 mg PO DAILY bupropion HCl [Wellbutrin SR] 100 mg tablet sustained-release 12 hr 100 mg PO BID Emgality Pen 120 mg/mL pen injector 120 mg subcut .monthy zolpidem [Ambien] 5 mg tablet 5 mg PO BEDTIME PRN (Reason: sleep) loperamide [Anti-Diarrheal (loperamide)] 2 mg tablet ciprofloxacin HCl 500 mg tablet pantoprazole 40 mg tablet,delayed release (DR/EC) PO ondansetron 4 mg tablet,disintegrating dicyclomine 10 mg capsule Ubrelvy 100 mg tablet promethazine 25 mg tablet 25 mg PO TID PRN (Reason: nausea and vomiting) Qty: 20 0RF Print Language: [place] Referrals: STEFANY SAM [Primary Care Provider, Unknown] - 1 week
[2024-11-18 19:36] VITALS: O2SAT 100
[2024-11-18] MEDS: 0.9 % SODIUM CHLORIDE 1,000 ML 1000 ML IV (19:41)
[2024-11-18 19:48] LABS: Hematocrit 38.8 % (36.0-48.0); Hemoglobin 13.2 g/dL (12.0-16.0); Immature Granulocytes Abs Auto 0.02 10^3/uL (0.00-0.03); Immature Granulocytes Pct Auto 0.2 % (0.0-0.5); Lymphocytes Absolute Auto 2.7 10^3/uL (1.2-3.8); Mean Corpuscular HGB Conc 34.0 g/dL (29.9-35.2); Mean Corpuscular Hemoglobin 28.0 pg (26.7-34.0); Mean Corpuscular Volume 82.4 fL (81.0-99.0); Platelet Count 300 10^3/uL (150-450); Red Blood Count 4.71 10^6/uL (4.20-5.40); White Blood Count 9.3 10^3/uL (4.0-11.0)
[2024-11-18 19:52] LABS: Glucose Urine UA NEGATIVE (NEGATIVE)
[2024-11-18 19:57] LABS: HCG Qualitative Urine* NEGATIVE (NEGATIVE)
[2024-11-18 20:06] LABS: Alanine Aminotransferase 17 U/L (14-59); Albumin Globulin Ratio 1.3; Albumin Level 4.1 g/dL (3.4-5.0); Alkaline Phosphatase 72 U/L (46-116); Anion Gap 13.2; Aspartate Amino Transferase 8 U/L (15-37); Blood Urea Nitrogen 11.0 mg/dL (7.0-18.0); Calcium 9.0 mg/dL (8.5-10.1); Carbon Dioxide 29.4 mmol/L (21.0-32.0); Chloride 104 mmol/L (98-107); Estimated GFR (African America >60 (>=60 mL/min/1.73m^2); Estimated GFR (Non-African Ame >60 (>=60 mL/min/1.73m^2); Globulin 3.2 g/dL; Glucose 94 mg/dL (74-106); Lipase 159.0 U/L (16.0-77.0); Potassium 3.6 mmol/L (3.5-5.1); Sodium 143 mmol/L (136-145); Total Protein 7.3 g/dL (6.4-8.2)
[2024-11-18] MEDS: FENTANYL CITRATE/PF 100 MCG/2 ML VIAL 50 MCG IV (20:34)
[2024-11-18] MEDS: PANTOPRAZOLE SODIUM 40 MG VIAL IV (20:34)
[2024-11-18] MEDS: HYDROMORPHONE HCL 1 MG/ML CARTRIDGE IV (22:29)
[2024-11-19] VITALS (7 sets, daily range): BP systolic 124–179; BP diastolic 80–111; PULSE 74–102; TEMP 36.4–36.8; O2SAT 97–99; BMI 22.5
[2024-11-19] MEDS: ERTAPENEM SODIUM 1 GM in 0.9 % SODIUM CHLORIDE 50 ML IV (00:46)
[2024-11-19] MEDS: POTASSIUM CHLORIDE 10 MEQ ER TABLET 30 MEQ PO (00:46)
[2024-11-19] MEDS: HYDROMORPHONE HCL 1 MG/ML CARTRIDGE 0.5 MG IVP (00:47)
[2024-11-19] MEDS: ENOXAPARIN SODIUM 40 MG/0.4 ML SYRINGE SUBQ ×2 (00:47→08:18)
[2024-11-19] MEDS: HYDROMORPHONE HCL 0.5 MG/0.5 ML SYRINGE IV ×5 (03:45→20:15)
[2024-11-19 05:18] LABS: Hematocrit 35.8 % (36.0-48.0); Hemoglobin 12.6 g/dL (12.0-16.0); Immature Granulocytes Abs Auto 0.02 10^3/uL (0.00-0.03); Immature Granulocytes Pct Auto 0.2 % (0.0-0.5); Lymphocytes Absolute Auto 3.9 10^3/uL (1.2-3.8); Mean Corpuscular HGB Conc 35.2 g/dL (29.9-35.2); Mean Corpuscular Hemoglobin 28.7 pg (26.7-34.0); Mean Corpuscular Volume 81.5 fL (81.0-99.0); Platelet Count 245 10^3/uL (150-450); Red Blood Count 4.39 10^6/uL (4.20-5.40); White Blood Count 8.9 10^3/uL (4.0-11.0)
[2024-11-19 05:38] LABS: Alanine Aminotransferase <6 U/L (14-59); Albumin Globulin Ratio 1.3; Albumin Level 3.7 g/dL (3.4-5.0); Alkaline Phosphatase 67 U/L (46-116); Anion Gap 13.7; Aspartate Amino Transferase 8 U/L (15-37); Blood Urea Nitrogen 6.0 mg/dL (7.0-18.0); Calcium 8.2 mg/dL (8.5-10.1); Carbon Dioxide 25.1 mmol/L (21.0-32.0); Chloride 107 mmol/L (98-107); Estimated GFR (African America >60 (>=60 mL/min/1.73m^2); Estimated GFR (Non-African Ame >60 (>=60 mL/min/1.73m^2); Globulin 2.9 g/dL; Glucose 93 mg/dL (74-106); Lipase 62.0 U/L (16.0-77.0); Magnesium 2.1 mg/dL (1.8-2.4); Potassium 3.8 mmol/L (3.5-5.1); Sodium 142 mmol/L (136-145); Total Protein 6.6 g/dL (6.4-8.2)
[2024-11-19 05:43] LABS: Lactate/Lactic Acid 0.6 mmol/L (0.4-2.0)
--- NOTE | 2024-11-19 09:15 | CM.NOTE ---
Rounds made with Dr. Lacy, pt continues with abdominal pain today but improved. Dr. Lacy discussed possible discharge to home this afternoon if abdominal pain is better. Pt will f/u with PCP and pt states she has oncology appointment already scheduled.
--- NOTE | 2024-11-19 11:33 | CT_ITS ---
The [address] [address] Patient Name: SHIV SABILLON MRN: [id number] date: 1995 Sex: F Assigned Patient Location: [place] Current Patient Location: [place] Accession/Order Number: [id number] Exam Date: 11/19/2024 11:45 Report Date: 11/19/2024 12:27 At the request of: BEVERLY ISRAEL DO Procedure: CT angio neck CTA OF THE HEAD AND NECK WITH CONTRAST COMPARISON: None CLINICAL DATA: Stroke like symptoms with headaches and decreased responsiveness. Spiral images were obtained through the head neck following 100 mL of Omnipaque 350. Sagittal and coronal MIP as well as 3-D volume rendered reconstructions of the carotid arteries and [place] of [place] reviewed. Stenosis is evaluated using NASCET criteria. This CT exam was performed using one or more following dose reduction techniques: Automated exposure control, adjustment of the mA and/or kV according to patient size, or use of iterative reconstruction technique. The aortic arch and proximal great vessels show no significant abnormalities. There are bilateral symmetric caliber vertebral arteries, without stenosis or dissection. No carotid artery plaque or luminal narrowing is seen. There are small shotty cervical lymph nodes. There is slight dextroscoliotic curvature at the cervical spine. The upper imaged lungs show no contributory findings. The distal vertebral, basilar and posterior cerebral arteries show no abnormal findings. No carotid siphon plaque or luminal narrowing is seen. The anterior and middle cerebral arteries are patent. No focal stenosis or suspected thrombosis is seen. No aneurysms are identified. The dural venous sinuses are patent. CT/CT angio neck IMPRESSION: NO SIGNIFICANT VASCULAR FINDINGS. Impression dictated by: Alma Santos M.D. 11/19/2024 12:27 PM Dictation Location: [place] [address] Electronically authenticated by: [id number] Y Date: 11/19/2024 12:27
--- NOTE | 2024-11-19 11:33 | CT_ITS ---
The [address] [address] Patient Name: SHIV SABILLON MRN: [id number] date: 1995 Sex: F Assigned Patient Location: [place] Current Patient Location: [place] Accession/Order Number: [id number] Exam Date: 11/19/2024 11:45 Report Date: 11/19/2024 12:10 At the request of: BEVERLY ISRAEL DO Procedure: CT stroke head/brain wo con CT BRAIN WITHOUT CONTRAST - stroke alert: CLINICAL HISTORY: Stroke like symptoms and headache with decreased responsiveness COMPARISON: 12/04/2013 TECHNIQUE: Contiguous axial unenhanced images were obtained through the brain. This CT exam was performed using one or more following dose reduction techniques: Automated exposure control, adjustment of the mA and/or kV according to patient size, or use of iterative reconstruction technique. FINDINGS: The ventricles are normal in size and position. There are no definite developing areas of abnormal attenuation. There is no hemorrhage, mass effect or extra-axial collections. The imaged paranasal sinuses and mastoid air cells are clear. CT/CT stroke head/brain wo con IMPRESSION: NO DEFINITE ACUTE INTRACRANIAL ABNORMALITY. FOLLOW-UP IS RECOMMENDED, SYMPTOMS WARRANT. COMMENT: The radiology department staff was asked to notify the referring physician at 1009 hours Impression dictated by: Alma Santos M.D. 11/19/2024 12:10 PM Dictation Location: [place] [address] Electronically authenticated by: [id number] Y Date: 11/19/2024 12:10
--- NOTE | 2024-11-19 11:33 | CT_ITS ---
The [address] [address] Patient Name: SHIV SABILLON MRN: [id number] date: 1995 Sex: F Assigned Patient Location: MS Current Patient Location: [place] Accession/Order Number: [id number] Exam Date: 11/19/2024 11:45 Report Date: 11/19/2024 12:27 At the request of: BEVERLY ISRAEL DO Procedure: CT angio neck CTA OF THE HEAD AND NECK WITH CONTRAST COMPARISON: None CLINICAL DATA: Stroke like symptoms with headaches and decreased responsiveness. Spiral images were obtained through the head neck following 100 mL of Omnipaque 350. Sagittal and coronal MIP as well as 3-D volume rendered reconstructions of the carotid arteries and [place] of [place] reviewed. Stenosis is evaluated using NASCET criteria. This CT exam was performed using one or more following dose reduction techniques: Automated exposure control, adjustment of the mA and/or kV according to patient size, or use of iterative reconstruction technique. The aortic arch and proximal great vessels show no significant abnormalities. There are bilateral symmetric caliber vertebral arteries, without stenosis or dissection. No carotid artery plaque or luminal narrowing is seen. There are small shotty cervical lymph nodes. There is slight dextroscoliotic curvature at the cervical spine. The upper imaged lungs show no contributory findings. The distal vertebral, basilar and posterior cerebral arteries show no abnormal findings. No carotid siphon plaque or luminal narrowing is seen. The anterior and middle cerebral arteries are patent. No focal stenosis or suspected thrombosis is seen. No aneurysms are identified. The dural venous sinuses are patent. CT/CT angio head IMPRESSION: NO SIGNIFICANT VASCULAR FINDINGS. Impression dictated by: Alma Santos M.D. 11/19/2024 12:27 PM Dictation Location: [place] [address] Electronically authenticated by: [id number] Y Date: 11/19/2024 12:27
[2024-11-19] MEDS: NALOXONE HCL 2 MG/2 ML SYRINGE 1 MG IV (11:36)
[2024-11-19 11:48] LABS: ABG PCO2 39.8 mmHg (35.0-45.0); HCO3 ABG 27.1 mmol/L (22.0-26.0); PO2 ABG 100.0 mmHg (80.0-100.0)
[2024-11-19 11:49] LABS: Allen Test POSITIVE (POSITIVE); O2 Mode RA; Oxygen Saturation ABG 98.6 %; Puncture Site RR
[2024-11-19 12:28] LABS: Cannabinoid Screen Urine NEGATIVE (NEGATIVE); Methamphetamines Screen Urine NEGATIVE (NEGATIVE); Tricyclic Antidepressant Urine NEGATIVE (NEGATIVE)
--- NOTE | 2024-11-19 14:46 | PM.IMHP1 ---
Internal Medicine - H&P: HPI History of Present Illness Chief complaint: ABDOMINAL PAIN N/V/O Narrative: Miss Henson is a 29-year-old female who was admitted the hospital the evening of November 18 with chief complaint of nausea, vomiting, diarrhea which started a few days prior to admission. She does have some right lower quadrant abdominal tenderness on and off, she follows closely in the outpatient palliative services for pain control, she is on Dilaudid p.o. at home. She has had numerous episodes of diarrhea, she was actually evaluated emergency room the day before admission as well for the same complaint. She says she does have this pain occasionally however it has not been this bad before and her oral Dilaudid was not helping her at home. She is also unable to tolerate any oral intake currently as she feels the pain is too severe and she does not want to try eating. Of note, she was admitted yesterday evening and basic admission orders were placed by the overnight on-call hospitalist. My first time evaluating the patient was this morning. Review of Systems ROS Status of ROS 10 or more systems reviewed and unremarkable except as noted in history and below [facility] Medical History (Updated 11/19/24 @ 14:50 by BEVERLY ISRAEL DO) Depression ?F32.A - Depression, unspecified (ICD-10) Migraines ?G43.909 - Migraine, unspecified, not intractable, without status migrainosus (ICD-10) Hodgkin lymphoma ?C81.90 - Hodgkin lymphoma, unspecified, unspecified site (ICD-10) Surgical History (Updated 11/19/24 @ 01:23 by Linnea Frost) History of removal of Port-a-Cath ?Z98.890 - Other specified postprocedural states (ICD-10) History of bowel resection ?Z90.49 - Acquired absence of other specified parts of digestive tract (ICD-10) Hx of cholecystectomy ?Z90.49 - Acquired absence of other specified parts of digestive tract (ICD-10) Family History (Updated 11/19/24 @ 00:32 by Linnea Frost) Grandfather Family history of cancer Family history of diabetes mellitus Mother Family history of hypertension Family history of stroke Grandmother Family history of myocardial infarction Social History (Updated 11/19/24 @ 00:34 by Linnea Frost) Within the past year, how often did you have a drink containing alcohol: never Score interpretation: A score less than 3 is consistent with normal alcohol consumption. Smoking status: Never smoker Non-prescribed substance use: denies use Previous occupational history: work for the [employer] Highest level of school completed/degree received: Bachelor's degree Are you now , , , , never or living with a partner: never In a typical week, how many times do you talk on the telephone with family, friends, or neighbors: 3 or more times per week How often do you get together with friends or relatives: 3 or more times per week How often do you attend latter day or taoist services: 4 or more times per year Little interest or pleasure in doing things: not at all Feeling down, depressed, or hopeless: not at all Feel stressed/tense/nervous/anxious/difficulty sleeping: rather much Life stressors: recent of family or friend Do you think of yourself as: straight/heterosexual Gender Identity: female Meds Home Medications and Allergies Home Medications ?Medication ?Instructions ?Recorded ?Confirmed ?Type ciprofloxacin HCl 500 mg tablet 500 mg PO Q12H 11/16/24 11/19/24 History dicyclomine 10 mg capsule 20 mg PO .4 times a day PRN 11/16/24 11/19/24 History abdominal pain hydromorphone 2 mg tablet 2 mg PO Q8H PRN pain 11/16/24 11/18/24 History loperamide 2 mg tablet 2 mg PO Q4H PRN loose stool 11/16/24 11/19/24 History (Anti-Diarrheal (loperamide)) ondansetron 4 mg disintegrating 4 mg PO Q8H PRN nausea and vomiting 11/16/24 11/19/24 History tablet pantoprazole 40 mg tablet,delayed 40 mg PO DAILY 11/16/24 11/19/24 History release ubrogepant 100 mg tablet (Ubrelvy) 100 mg PO .once a day PRN migraine 11/16/24 11/19/24 History headache bupropion HCl 100 mg tablet 100 mg PO BID 11/19/24 11/19/24 History galcanezumab-gnlm 120 mg/mL 120 mg subcut Q30D 11/19/24 11/19/24 History subcutaneous syringe (Emgality) oxycodone 10 mg tablet 10 mg PO Q8H PRN pain 11/19/24 11/19/24 History venlafaxine 225 mg tablet,extended 225 mg PO DAILY 11/19/24 11/19/24 History release 24 hr zolpidem 10 mg tablet 10 mg PO .QHS PRN sleep 11/19/24 11/19/24 History Allergies Allergy/AdvReac Type Severity Reaction Status Date / Time diphenhydramine (From Allergy Severe Rash Verified 11/18/24 19:19 Benadryl) Exam Narrative Exam Narrative: General: Awake and alert, no acute distress HEENT: Normocephalic, atraumatic, no scleral icterus noted Lungs: Clear to auscultation bilaterally Cardiac: Regular rate and rhythm, no murmurs appreciated GI: Soft, tenderness to palpation in the right lower quadrant, no rebound tenderness, no signs of an acute abdomen. Borden negative. Extremities: Active and passive range of motion intact throughout, no edema Neuro: Cranial nerves II through XII intact, no focal deficits noted Skin: No rashes or lesions, no signs of jaundice Constitutional Vital Signs, click to edit/add: Last Vital Signs Temp 98.0 F 11/19/24 12:04 Pulse 78 11/19/24 12:04 Resp 16 11/19/24 12:04 BP 158/94 H 11/19/24 12:04 Pulse Ox 99 11/19/24 12:04 O2 Del Method Room Air 11/19/24 12:04 Internal Medicine - H&P: Reslt Labs Labs: Short CBC 11/18/24 11/19/24 Range/Units 19:30 04:53 WBC 9.3 8.9 (4.0-11.0) 10^3/uL Hgb 13.2 12.6 (12.0-16.0) g/dL Hct 38.8 35.8 L (36.0-48.0) % Plt Count 300 245 (150-450) 10^3/uL BMP 11/18/24 11/19/24 19:30 04:53 Sodium 143 142 Potassium 3.6 3.8 Chloride 104 107 Carbon Dioxide 29.4 25.1 BUN 11.0 6.0 L Creatinine 0.93 0.80 Glucose 94 93 Calcium 9.0 8.2 L Liver Function 11/18/24 11/19/24 Range/Units 19:30 04:53 Total Bilirubin 0.3 0.3 (0.2-1.0) mg/dL AST 8 L 8 L (15-37) U/L ALT 17 <6 L (14-59) U/L Alkaline Phosphatase 72 67 (46-116) U/L Albumin 4.1 3.7 (3.4-5.0) g/dL Urine 11/18/24 Range/Units 19:40 Urine Color Yellow (YELLOW) Urine Clarity Clear (CLEAR) Urine pH 6.0 (5.0-9.0) Ur Specific [place] >=1.030 A (1.005-1.025) Urine Protein Negative (NEG/TRACE) mg/dL Urine Glucose (UA) Negative (NEGATIVE) mg/dL Assessment and Plan Assessment and Plan (1) Nausea, vomiting, and diarrhea: Assessment and Plan: ? Patient was admitted as observation the evening of November 18. ? Continue with supportive care, Zofran as needed, pain control with IV Dilaudid as ordered ? IV fluids Ringer's lactate overnight ? Her lipase was slightly elevated on admission at 159, her CT scan does not show any evidence of pancreatitis and nor does her physical exam consistent with pancreatitis. ? Encourage oral intake (2) Abdominal pain: Assessment and Plan: See above Qualifiers: Abdominal location: right lower quadrant Qualified Code(s): R10.31 - Right lower quadrant pain Plan ? DVT prophylaxis addressed ? Regular diet ? Full code
--- NOTE | 2024-11-19 15:00 | PM.EN ---
Event Note Event Note: At 1204 this afternoon, I was called to bedside to assess the patient as she began becoming nonresponsive. On rounds this morning she was awake, she was alert, please see H&P for details. During time of the stroke alert, the patient was minimally responsive to verbal and painful stimuli. She would open her eyes and make eye contact however she did appear extremely lethargic which was a major change from just a couple hours prior on rounds. Overhead stroke alert was called 1 mg IV naloxone was administered with no response. Her NIH score was total to be is 7 for some effort against gravity in her right arm and leg, she had slight slurred speech. On exam she had good bilateral radial pulses, auscultation revealed regular heart rate with no murmurs appreciated, her lungs were clear though her in-store effort was a little weak. Her pupils were dilated about 5-6 millimeters, equal, reactive to light but a little bit sluggish. Stat ABGs were obtained just prior to CT scan. pH is 7.44, PCO2 of 39.8, and PO2 100% on room air. CT head without contrast, CTA head and neck were performed and showed no acute abnormality. Will defer MRI at this point in time given her overall young age, no risk factors for stroke and return to baseline with a history of severe migraines causing the symptoms. Upon return to the room after her CT scan the patient was more alert and talkative, she did let us know that she has severe migraines and when she gets her severe migraines, she has right sided weakness and becomes very lethargic. I did speak with her after this event when she was awake and talking, she said that has been a couple of years since she has had 1 of these severe migraines, they are triggered by not eating. When discussing the patient's admission for her abdominal discomfort, she says she is still not ready to eat as she feels it will worsen her abdominal discomfort. At this point in time her status was changed from observation to inpatient, despite having a normal workup, she clearly has abdominal issues of pain, constipation, diarrhea secondary to her Hodgkin's lymphoma. Given today's event I am not comfortable discharging her and she will require more time in the hospital for further workup and treatment until she can tolerate oral intake.
[2024-11-19] MEDS: OXYCODONE HCL 5 MG TABLET PO ×2 (17:03→22:18)
[2024-11-19] MEDS: POLYETHYLENE GLYCOL 3350 17 GM POWDER PACKET 34 GM PO (17:03)
[2024-11-19] MEDS: PANTOPRAZOLE SODIUM 40 MG VIAL IV (22:19)
[2024-11-19] MEDS: KETOROLAC TROMETHAMINE 30 MG/ML VIAL 15 MG IVP (23:45)
[2024-11-20] VITALS: BP 124/86; PULSE 78; TEMP 36.5; O2SAT 97
[2024-11-20] MEDS: PREGABALIN 50 MG CAPSULE PO (01:20)
[2024-11-20] MEDS: HYDROMORPHONE HCL 1 MG/ML CARTRIDGE 0.25 MG IVP (01:20)
[2024-11-20 03:18] VITALS: BP 129/84; PULSE 100; TEMP 36.5; O2SAT 98
[2024-11-20 05:23] LABS: Hematocrit 37.7 % (36.0-48.0); Hemoglobin 13.0 g/dL (12.0-16.0); Mean Corpuscular HGB Conc 34.5 g/dL (29.9-35.2); Mean Corpuscular Hemoglobin 28.0 pg (26.7-34.0); Mean Corpuscular Volume 81.1 fL (81.0-99.0); Platelet Count 240 10^3/uL (150-450); Red Blood Count 4.65 10^6/uL (4.20-5.40); White Blood Count 6.6 10^3/uL (4.0-11.0)
[2024-11-20 05:41] LABS: Alanine Aminotransferase 12 U/L (14-59); Albumin Globulin Ratio 1.3; Albumin Level 3.8 g/dL (3.4-5.0); Alkaline Phosphatase 70 U/L (46-116); Anion Gap 10.3; Aspartate Amino Transferase 9 U/L (15-37); Blood Urea Nitrogen 5.0 mg/dL (7.0-18.0); Calcium 8.8 mg/dL (8.5-10.1); Carbon Dioxide 28.4 mmol/L (21.0-32.0); Chloride 106 mmol/L (98-107); Estimated GFR (African America >60 (>=60 mL/min/1.73m^2); Estimated GFR (Non-African Ame >60 (>=60 mL/min/1.73m^2); Globulin 3.0 g/dL; Glucose 97 mg/dL (74-106); Magnesium 2.3 mg/dL (1.8-2.4); Potassium 3.7 mmol/L (3.5-5.1); Sodium 141 mmol/L (136-145); Total Protein 6.8 g/dL (6.4-8.2)
[2024-11-20 07:00] VITALS: BP 132/88; PULSE 80; TEMP 36.8; O2SAT 97
[2024-11-20] MEDS: POLYETHYLENE GLYCOL 3350 17 GM POWDER PACKET 34 GM PO (08:58)
[2024-11-20] MEDS: ENOXAPARIN SODIUM 40 MG/0.4 ML SYRINGE SUBQ (08:58)
--- NOTE | 2024-11-20 09:00 | CM.NOTE ---
Rounds made with Dr. Lacy, discussed with pt plan of care and discharge possibly this afternoon. Pt given enema this am, will wait to make sure pt has results and relieves abdominal discomfort. No discharge needs identified.
[2024-11-20] MEDS: OXYCODONE HCL 5 MG TABLET PO (10:49)
[2024-11-20 11:47] VITALS: BP 138/84; PULSE 98; TEMP 36.5; O2SAT 95
[2024-11-20] MEDS: METHYLNALTREXONE BROMIDE 12 MG/0.6 ML VIAL SUBQ (11:51)
[2024-11-20] MEDS: POLYETHYLENE GLYCOL 3350 238 GM BOTTLE PO (13:13)
--- NOTE | 2024-11-20 14:46 | XR_ITS ---
[facility] [place] [id number] Patient Name: SHIV SABILLON MRN: [id number] date: 1995 Sex: F Assigned Patient Location: [place] Current Patient Location: [place] Accession/Order Number: [id number] Exam Date: 11/20/2024 14:55 Report Date: 11/20/2024 15:09 At the request of: BEVERLY ISRAEL DO Procedure: XR abdomen 1V KUB: CLINICAL INFORMATION: Constipation. COMPARISON: CT abdomen and pelvis 11/18/2024 FINDINGS: Postsurgical changes are seen projecting over the expected location of the right colon. No bowel obstruction or free air. Osseous structures demonstrate mild degenerative change. XR/XR abdomen 1V IMPRESSION: No acute process. Impression dictated by: Jesus Ledesma Jr., D.O. 11/20/2024 3:09 PM Dictation Location: [place] [id number] Electronically authenticated by: [id number] Y Date: 11/20/2024 15:09
--- NOTE | 2024-11-20 14:50 | PM.PN ---
Progress Note: Subjective Subjective Interval history: Seen and evaluated this morning, she did not have a bowel movement overnight despite receiving the MiraLAX and suppository. Did explain to her the goal today was for bowel movement, this is likely severe constipation secondary to her chronic opioid use for her cancer. Explained that she would be having an enema later on today. She was agreeable for the treatment plan. Exam Narrative Exam Narrative: General: Awake and alert, moderate distress HEENT: Normocephalic, atraumatic, no scleral icterus noted Lungs: Clear to auscultation bilaterally Cardiac: Regular rate and rhythm, no murmurs appreciated GI: Soft, tenderness to palpation along most of the right sided abdominal wall though there is no distention. Extremities: Active and passive range of motion intact throughout, no edema Neuro: Cranial nerves II through XII intact, no focal deficits noted Skin: No rashes or lesions, no signs of jaundice Constitutional Vital Signs, click to edit/add: Last Vital Signs Temp 97.7 F 11/20/24 11:47 Pulse 98 H 11/20/24 11:47 Resp 16 11/20/24 11:47 BP 138/84 11/20/24 11:47 Pulse Ox 95 11/20/24 11:47 O2 Del Method Room Air 11/20/24 11:47 Progress Note: Objective Labs Labs: Short CBC 11/20/24 Range/Units 05:03 WBC 6.6 (4.0-11.0) 10^3/uL Hgb 13.0 (12.0-16.0) g/dL Hct 37.7 (36.0-48.0) % Plt Count 240 (150-450) 10^3/uL BMP 11/20/24 05:03 Sodium 141 Potassium 3.7 Chloride 106 Carbon Dioxide 28.4 BUN 5.0 L Creatinine 0.67 Glucose 97 Calcium 8.8 Liver Function 11/20/24 Range/Units 05:03 Total Bilirubin 0.5 (0.2-1.0) mg/dL AST 9 L (15-37) U/L ALT 12 L (14-59) U/L Alkaline Phosphatase 70 (46-116) U/L Albumin 3.8 (3.4-5.0) g/dL Progress Note: A&P Assessment and Plan (1) Opioid-induced constipation: Assessment and Plan: ? Continue bowel regimen ? Fleets enema this morning with no response ? 1 dose of methylnaltrexone with no response ? Will give full dose of MiraLAX bowel prep today ?CT scan abdomen pelvis on admission shows large stool burden in the ascending colon ? Will order abdominal x-ray (2) Abdominal pain: Assessment and Plan: ? Secondary to severe constipation, see above Qualifiers: Abdominal location: right lower quadrant Qualified Code(s): R10.31 - Right lower quadrant pain (3) Nausea, vomiting, and diarrhea: Assessment and Plan: ? She has had no further nausea or diarrhea, her biggest problem now is constipation. Plan ? DVT prophylaxis addressed ? Diet as tolerated ? Full code
[2024-11-20 15:05] VITALS: BP 152/96; PULSE 78; TEMP 36.6; O2SAT 98
[2024-11-20] MEDS: DICYCLOMINE HCL 10 MG CAPSULE 20 MG PO (15:24)
[2024-11-20] MEDS: HYDROMORPHONE HCL 2 MG TABLET PO (15:24)
[2024-11-20 17:18] VITALS: BP 134/88; PULSE 78; O2SAT 98
--- NOTE | 2024-11-22 10:38 | CM.DCFOLLOWU ---
Person spoke with:patient How are you feeling? not well, at PCP now How is your pain? has pain Did you understand your discharge instructions? yes Do you have any questions about your discharge instructions?no Were you given any prescriptions at discharge?yes Were you able to get your prescriptions filled?yes Do you understand how to take your medications as ordered?yes Do you have any questions about your follow up appointment and do you plan to keep your follow up appointment? Patient not feeling well and was able to get in to her PCP today. Is there anything else that you would like to discuss?no Questions/Comments/Concerns/Other:none
--- NOTE | 2024-11-22 12:14 | P.DS_ITS ---
DS: Providers Provider Date of admission: 11/18/24 9237 Primary care physician: STEFANY SAM Discharging clinician: BEVERLY ISAREL Anticipated date of discharge: 11/20/24 DS: Diagnosis Discharge Diagnosis (1) Opioid-induced constipation: (2) Abdominal pain: Qualifiers: Abdominal location: right lower quadrant Qualified Code(s): R10.31 - Right lower quadrant pain (3) Nausea, vomiting, and diarrhea: (4) Migraines: DS: Summary Hospital Course Hospital Course: Miss Henson is a 29-year-old female who was admitted the very late evening of November 18 with a chief complaint of abdominal discomfort, initially she was admitted observation secondary to pain control, she has a known history of Hodgkin's lymphoma and is on chronic opioids. Her CT scan on admission was ne gative for any acute process or surgical abdomen however it did show a large stool burden in the ascending colon. She was not eating much food secondary to pain. The following morning, there is a stroke alert called, please see event note. Patient has a history of severe migraines triggered by not eating where she does go unresponsive and has some right sided weakness. Stroke workup was negative. The patient returned to her baseline. She had diarrhea initially on admission though I did talk to her about overflow diarrhea and that but felt this is likely the cause of her pain. She received an adequate bowel regimen including MiraLAX, suppository and enema. Despite these she did not have a bowel movement. She is on chronic opioids for her Hodgkin's lymphoma pain, she did receive 1 dose of methylnaltrexone to reverse any opioid and constipation and there is still no response to this. An abdominal x-ray was performed and did show a stool burden. She was given a full dose of bowel prep MiraLAX, she was having increasing abdominal discomfort secondary to this however this was likely secondary to spasms as it was drawing more water into her intestine. At 5 PM November 20, the patient had a very large bowel movement, her pain was better and she was subsequent discharged in the hospital. I spoke with her the afternoon of November 22 at the time of writing this discharge summary, the patient had just finished seeing her oncologist, she is still having abdominal discomfort and is back to having diarrhea. Her primary care physician is ordering further workup for her. Time Spent with Patient Time attestation: Total time spent providing and/or coordinating discharge services: Exam Constitutional Vital Signs, click to edit/add: Last Vital Signs Temp 97.8 F 11/20/24 15:05 Pulse 78 11/20/24 17:18 Resp 16 11/20/24 17:18 BP 134/88 11/20/24 17:18 Pulse Ox 98 11/20/24 17:18 O2 Del Method Room Air 11/20/24 17:18 Discharge Plan Discharge Disposition: Home, Self-Care Discharge Medications: New polyethylene glycol 3350 17 gram Powder In Packet 17 g PO QD Qty: 30 0RF Continued hydromorphone 2 mg tablet 2 mg PO Q8H PRN (Reason: pain) loperamide [Anti-Diarrheal (loperamide)] 2 mg tablet 2 mg PO Q4H PRN (Reason: loose stool) ciprofloxacin HCl 500 mg tablet 500 mg PO Q12H Patient Comments: 11/14/24-11/20/24 pantoprazole 40 mg tablet,delayed release (DR/EC) 40 mg PO DAILY ondansetron 4 mg tablet,disintegrating 4 mg PO Q8H PRN (Reason: nausea and vomiting) dicyclomine 10 mg capsule 20 mg PO .4 times a day PRN (Reason: abdominal pain) Ubrelvy 100 mg tablet 100 mg PO .once a day PRN (Reason: migraine headache) zolpidem 10 mg tablet 10 mg PO .QHS PRN (Reason: sleep) venlafaxine 225 mg tablet extended release 24hr 225 mg PO DAILY oxycodone 10 mg tablet 10 mg PO Q8H PRN (Reason: pain) Emgality Syringe 120 mg/mL syringe 120 mg SUBCUT Q30D bupropion HCl 100 mg tablet 100 mg PO BID Activity: increase activity as tolerated Diet: advance to your usual diet Print Language: [place] Patient Instructions: Polyethylene Glycol 3350 (By mouth), Constipation (DC), Acute Nausea and Vomiting (DC), Abdominal Pain (DC) Forms: Portal Instructions Follow Up Appointments: Dr Leif Sam MonNov 27 at 10:45 am. [phone] Discharge Date/Time: 11/20/24 17:19
--- OUTSIDE RECORDS SUMMARY | 2024-12-05 15:05 | XMS_ITS | Encounter Summary ---
Author Organization [facility] Address [address] 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 Rafaela Padron DO [id number] [place] [address] Department of [place] [address] Phone: tel: fax: [facility] [address] [place] [phone] Phone: tel: fax: Referral ID Status Reason Start Date Expiration Date Visits Re quested Visits Authorized [id number] 1 1 Encounter Details Date Type Department Care Team (Late st Contact Info) Description 12/05/2024 3:05 PM EDT - 12/09/2024 7:06 AM EDT Emergency [facility] [address] [place] [phone] Kelsy Mchugh MD [address] [place] [address] Department of Emergency Medicine [place] [id number] Reji Hidalgo MD [address] [place] [address] Department of Emergency Medicine [place] [id number] Lisy Linn MD [address] [place] [address] Department [place] [address] Rafaela Padron DO [id number] [place] [address] of [place] [address] Horacio Fuentes MD [address] [place] [address] Department [place] [address] Stella Koch DO [address] [address] Zak Gonzalez DO [id number] [place] [address] Department [place] [address] Airam Farah MD [address] [place] [address] Department [place] [address] John Guerrero MD [address] Department [place] [address] Cira Mack MD [address] [place] [address] Department [place] [address] Cj Hallman MD [address] [place] [address] Department [place] [address] Abdominal pain, epigastric (Primary Dx); Nausea; Hypokalemia Discharge Disposition: Home Social History Tobacco Use Types Packs/Day Years Used Date Smoking Tobacco: Never Assessed Comments Unknown Sex and Gender Information Value Date Recorded Sex Assigned at Not on file Legal Sex Female 6:57 PM EST Gender Identity Not on file Sexual Orientation Not on file documented as of this encounter Last Filed Vital Signs Vital Sign Reading Time Taken Comments Blood Pressure 137/92 12/09/2024 6:19 AM EDT Pulse 62 12/09/2024 6:19 AM EDT Temperature 36.7 C (98.1 F) 12/08/2024 11:00 AM EDT Respiratory Rate 14 12/09/2024 6:19 AM EDT Oxygen Saturation 100% 12/09/2024 6:19 AM EDT Inhaled Oxygen Concentration - - Weight 63.5 kg (140 lb) 12/05/2024 1:44 PM EDT Height 170.2 cm (5' 7 ) 12/05/2024 1:44 PM EDT Body Mass Index 21.93 12/05/2024 1:44 PM EDT documented in this encounter Functional Status * Question Answer Date of Assessment Author BP 137/92 12/09/2024 6:19 AM EDT Jose Raul Reed RN Pulse 62 12/09/2024 6:19 AM EDT Jose Raul Reed RN * Koo Fall Risk Question Answer Date of Assessment Author History of Falling, Immediat e or Within 3 Months 0 12/05/2024 1:45 PM EDT Nikolay Santos RN Secondary Diagnosis 0 12/05/2024 1:45 PM ED T Nikolay Santos RN Ambulatory Aid 0 12/05/2024 1:45 PM EDT Nikolay Walker RN Intravenous Therapy/Heparin Lock 20 12/06/19 25 1:45 PM EDT Nikolay Santos RN Gait/Transferring 0 12/05/2024 1:45 PM EDT Nikolay Santos RN Mental Status 0 12/05/2024 1:45 PM EDT Nikolay Brothers RN Koo Fall Risk Score 20 12/05/2024 1:45 PM EDT Nikolay Santos RN * Ramón Scale Question Answer Date of Assessment Author Sensory Perceptions 4 12/07/2024 8:24 AM ED T Katty Craig RN Moisture 4 12/07/2024 8:24 AM EDT Katty Schmitz RN Activity 3 12/07/2024 8:24 AM EDT Katty Schmitz RN Mobility 4 12/07/2024 8:24 AM EDT Katty Schmitz RN Nutrition 3 12/07/2024 8:24 AM EDT Katty Schmitz RN Friction and Shear 3 12/07/2024 8:24 AM EDT Katty Craig RN Ramón Scale Score 21 12/07/2024 8:24 AM EDT Katty Craig RN * Communicable Disease Screening Question Answer Date of Assessment Author Do you have any of the following new or worsening symptoms? None of these 12/05/2024 3:11 PM EDT Dani Jenkins RN * Abuse Screen Question Answer Date of Assessment Author Have you had any thoughts of harming anyone else? No 12/05/2024 3:10 PM EDT Dani Jenkins RN Are there any apparent signs of injuries/behaviors that could be related to abuse/neglect? No 12/05/2024 3:10 PM EDT Brooklynn Jenkins RN Are you or have you been threatened or abused physically, emotionally, or sexually by anyone? No 12/05/2024 3:10 PM EDT Dani Jenkins RN Has anyone ever threatened t o hurt your family or your pets? No 12/05/2024 3:10 PM EDT Brooklynn Jenkins RN Does anyone try to keep you from having/contacting other friends or doing things outside your home? No 12/05/2024 3:10 PM NAYET Dani Liriano RN Do you feel UNSAFE going jori k to the place where you are living? No 12/05/2024 3:10 PM EDT Dani Liriano RN Do you feel anyone has explo ited or taken advantage of you financially or of your personal property? No 12/05/2024 3:10 PM EDT Dani Jenkins RN Abuse Screen Adult 12/05/2024 3:10 PM EDT Dani Liriano RN * Stroke/TIA Swallow Screen Question Answer Date of Assessment Author Step 1: Level of Consciousness Pass 12/08/2024 9:35 AM Costa Brown RN Step 2: [place] Thick Pass 12/08/2024 9:35 AM E DT Costa Chow RN Step 3: Water Pass 12/08/2024 9:35 AM EDT Costa Pisano RN * Calculated C-SSRS Risk Score (Lifetime/Recent) Answer Date of Assessment Author No Risk Indicated 12/05/2024 1:45 PM EDT Nikolay Santos RN * Christian Suicide Severity Rating Scale (Screener/Recent Self-Report) Question Answer Date of Assessment Author 1. Wish to be (Past 1 Month) No 025 1:45 PM EDT Nikolay Santos RN 2. Non-Specific Active Suici fuad Thoughts (Past 1 Month) No 12/05/2024 1:45 PM EDT Joey Santos RN 6. Suicidal Behavior (Lifetime) No 1:45 PM EDT Nikolay Santos RN * Stroke/TIA Swallow Screen Question Answer Date of Assessment Author Step 1: Level of Consciousness Pass 12/08/2024 9:35 AM EDT Costa Chow RN Step 2: [place] Thick Pass 12/08/2024 9:35 AM E DT Costa Chow RN Step 3: Water Pass 12/08/2024 9:35 AM EDT Costa Pisano RN documented as of this encounter Discharge Instructions * Discharge Instructions* John Guerrero MD MPH - 12/09/2024 6:48 AM EDT Please use the zofran as written to help with your nausea and vomiting. Please follow a clear liquid diet for the next few days. This includes water or broth. If your belly pain improves, you can advance to soft foods such as applesauce or Jell-O. After a few days of soft foods, you can advance to bland solid foods such as crackers or soup for 1 to 2 days. Avoid any fatty or spicy food. Drink at least 8 glasses of water a day. Avoid any soda, coffee, caffeine. Please use your home pain medication to help with your abdominal pain. Return for any worsening pain, unable to eat or drink, fevers, or any other concerning symptoms * Attachments The following attachments cannot be sent through Care Everywhere. * Nausea and vomiting in adults ??? ED discharge instructions (Swedish) * Abdominal pain in adults ??? Discharge instructions (Swedish) documented in this encounter Medications at Time of Discharge buPROPion SR (Wellbutrin SR) 100 mg 12 hr tablet Take 1 tablet (100 mg) by mouth 2 times a day. Emgality Syringe 120 mg/mL prefilled syringe Inject under the skin every 30 (thirty) days. 02/18/2021 HYDROmorphone (Dilaudid) 2 mg tablet Take 1 tablet (2 mg) by mouth every 4 hours if needed for severe pain (7 - 10). linaCLOtide (Linzess) 72 mcg capsule Take 1 capsule (72 mcg) by mouth once daily in the morning. Take before meals. 11/22/2024 6 ondansetron ODT (Zofran-ODT) 4 mg disintegrating tabletIndications:Ab dominal pain, epigastric,Nausea Dissolve 1 tablet (4 mg) in the mouth every 8 hours if needed for nausea or vomiting for up to 7 days. 20 tablet 12/09/2024 5 venlafaxine 225 mg 24 hr tablet Take 1 tablet (225 mg) by mouth once daily. Take with food. 09/01/2020 zolpidem (Ambien) 10 mg tablet Take 1 tablet (10 mg) by mouth as needed at bedtime for sleep. 12/05/2024 documented as of this encounter Progress Notes * Fabrizio Patel, DO - 12/08/2024 8:37 PM EDT Images from the original note were not included. Emergency Department Transition of Care Note Signout I received Negro Stacy in signout from Dr. Cj Frias. Please see the ED Provider Note for all HPI, PE and MDM up to the time of signout at 19:00. This is in addition to the primary record. In brief Negro Stacy is an 29 y.o. female presenting for nausea and abdominal pain. Patient's work was remarkable for the patient continued to be in pain and was unable to tolerate p.o. Given her inability tolerate p.o. require admission. However, patient's insurance was out of network and patient request to be transferred to [facility]. At the time of signout we were awaiting: Transfer to [facility]. Nausea and pain control as needed. ED Course & Medical Decision Making Medical Decision Making: Under my care, conversation with patient detailed discussion regarding her care here at . Given the patient has been here for prolonged period pending transfer, patient would like to be discharged at this time. She states her pain is under control and transfer herself to [facility] for further evaluation. ED Course: ED Course as of 12/09/24 1733 Ela Dec 05, 2024 1640 Potassium is 3.3. Magnesium is normal. Once patient is finished with CT and is able to tolerate p.o., will replete with oral potassium pills. [SPLICING MACHINE OPERATOR] 1809 US right upper quadrant Nonobstructing right-sided nephrolithiasis otherwise unremarkable. [SPLICING MACHINE OPERATOR] 191 CT abdomen pelvis did not show any acute abnormality of the abdomen pelvis. [SPLICING MACHINE OPERATOR] Fri Dec 06, 2024 0747 Receiving patient at signout, reached out to transfer center who states that patient is still waiting for bed assignment at [facility] at this time. [MR] 1121 Reached out to transfer center again who states that patient is still waiting for bed assignment at [facility] as of 9:53 AM [MR] 1322 Spoke with transfer center again and they state that they still have not heard from [facility] regarding an open bed. [MR] Sun Dec 08, 2024 0722 KAH to JAG 29 y.o. F intractable able adb pain, n/v/d unable to control pain. Pending [ ] transfer to [facility] [ ] GI consult [JG] 8232 Spoke with GI who states they will come down to see the patient. [AK] 1041 Spoke with GI again who now states that they will wait till tomorrow to see this patient. Theydid recommend that we try abdominal pain control with different multimodal agents such as Protonix 40 twice daily, Mylanta, Bentyl. I have placed these orders in. [AK] 1148 Reevaluated patient who states that she is still having 9 out of 10 abdominal pain and nausea and vomiting. She also states that she is now having some numbness and tingling in her hands. Likelyanticipate that this is secondary to her hypokalemia of 3.0 which was found this morning. Will replete her potassium. Regarding abdominal pain and nausea and vomiting, patient states that Toradol helped with her pain last time and Zofran has not. Will order Toradol 15 for her and trial Reglan for nausea vomiting. [AK] 1824 Patient continues to have severe abdominal pain will write for a another 15 mg of Toradol as she had good relief with this earlier. [AK] ED Course User Index [AK] Cj Frias DO [JG] Cira Mack MD [MR] Skyler Olson DO [SPLICING MACHINE OPERATOR] Fabrizio Patel DO Diagnoses as of 12/09/24 1733 Abdominal pain, epigastric Nausea Hypokalemia Disposition Discharge. Patient had no other additional questions at this time. She was given return precautions. Vitals are stable. Patient stable for discharge Procedures Procedures Patient seen and discussed with ED attending physician. Fabrizio Patel DO Emergency Medicine Cosigned by Cj Hallman MD at 12/10/2024 10:31 AM EDT * Justine Padilla MD - 12/07/2024 9:52 PM EDT Images from the original note were not included. Emergency Department Transition of Care Note Signout I received Negro Stacy in signout from Dr. Skyler Olson. Please see the ED Provider Note for all HPI, PE and MDM up to the time of signout at 1900. This is in addition to the primary record. In brief Negro Stacy is an 29 y.o. female presenting for right upper quadrant abdominal pain for1 week duration. She endorses associated nausea with vomiting and diarrhea. CT abdomen with contrast negative for acute abdominal pathology. The patient is in the process of being transferred to [facility] due to out of network insurance. At this time we are working towards pain control, nausea con trol, and tolerating p.o. within the emergency department. Patient has received Dilaudid, Zofran, Reglan, Compazine for symptoms. At the time of signout we were awaiting: Transport to [facility]. ED Course & Medical Decision Making Medical Decision Making: Under my care, the patient endorsed abdominal pain over night. 1 dose of 0.5 mg of Dilaudid given. ED Course: ED Course as of 12/09/24 1322 Ela Dec 05, 2024 1640 Potassium is 3.3. Magnesium is normal. Once patient is finished with CT and is able to tolerate p.o., will replete with oral potassium pills. [SPLICING MACHINE OPERATOR] 181 US right upper quadrant Nonobstructing right-sided nephrolithiasis otherwise unremarkable. [SPLICING MACHINE OPERATOR] 191 CT abdomen pelvis did not show any acute abnormality of the abdomen pelvis. [SPLICING MACHINE OPERATOR] Fri Dec 06, 2024 0747 [facility] who states that patient is still waiting for bed assignment at [facility] at this time. [MR] 1121 Reached out to transfer center again who states that patient is still waiting for bed assignment at [facility] as of 9:53 AM [MR] 1322 Spoke with transfer center again and they state that they still have not heard from [facility] regarding an open bed. [MR] [place] Dec 08, 2024 0722 KAH to JAG 29 y.o. F intractable able adb pain, n/v/d unable to control pain. Pending [ ] transfer to [facility] [ ] GI consult [JG] 0870 Spoke with GI who states they will come down to see the patient. [AK] 1041 Spoke with GI again who now states that they will wait till tomorrow to see this patient. Theydid recommend that we try abdominal pain control with different multimodal agents such as Protonix 40 twice daily, Mylanta, Bentyl. I have placed these orders in. [AK] 1148 Reevaluated patient who states that she is still having 9 out of 10 abdominal pain and nausea and vomiting. She also states that she is now having some numbness and tingling in her hands. Likelyanticipate that this is secondary to her hypokalemia of 3.0 which was found this morning. Will replete her potassium. Regarding abdominal pain and nausea and vomiting, patient states that Toradol helped with her pain last time and Zofran has not. Will order Toradol 15 for her and trial Reglan for nausea vomiting. [AK] 1824 Patient continues to have severe abdominal pain will write for a another 15 mg of Toradol as she had good relief with this earlier. [AK] ED Course User Index [AK] Cj Frias DO [JG] Cira Mack MD [MR] Skyler Jacqueline Olson DO [SPLICING MACHINE OPERATOR] Fabrizio Patel DO Diagnoses as of 12/09/24 1322 Abdominal pain, epigastric Nausea Hypokalemia Disposition Patient signed out to Dr. Cj Frias at 0700. Please see his note for continued management. Procedures Procedures Patient seen and discussed with ED attending physician. Justine Padilla MD Emergency Medicine Emergency Medicine Attending Attestation: ED Course as of 12/09/24 1322 Ela Dec 05, 2024 1640 Potassium is 3.3. Magnesium is normal. Once patient is finished with CT and is able to tolerate p.o., will replete with oral potassium pills. [SPLICING MACHINE OPERATOR] 1809 US right upper quadrant Nonobstructing right-sided nephrolithiasis otherwise unremarkable. [SPLICING MACHINE OPERATOR] 1911 CT abdomen pelvis did not show any acute abnormality of the abdomen pelvis. [SPLICING MACHINE OPERATOR] [facility] Dec 06, 2024 0747 Receiving patient at [facility], reached out to transfer center who states that patient is still waiting for bed assignment at [facility] at this time. [MR] 1121 Reached out to transfer center again who states that patient is still waiting for bed assignment at [facility] as of 9:53 AM [MR] 1322 Spoke with transfer center again and they state that they still have not heard from [facility] regarding an open bed. [MR] Sun Dec 08, 2024 0722 KAH to JAG 29 y.o. F intractable able adb pain, n/v/d unable to control pain. Pending [ ] transfer to [facility] [ ] GI consult [JG] 2676 Spoke with GI who states they will come down to see the patient. [AK] 1041 Spoke with GI again who now states that they will wait till tomorrow to see this patient. Theydid recommend that we try abdominal pain control with different multimodal agents such as Protonix 40 twice daily, Mylanta, Bentyl. I have placed these orders in. [AK] 1148 Reevaluated patient who states that she is still having 9 out of 10 abdominal pain and nausea and vomiting. She also states that she is now having some numbness and tingling in her hands. Likelyanticipate that this is secondary to her hypokalemia of 3.0 which was found this morning. Will replete her potassium. Regarding abdominal pain and nausea and vomiting, patient states that Toradol helped with her pain last time and Zofran has not. Will order Toradol 15 for her and trial Reglan for nausea vomiting. [AK] 182 Patient continues to have severe abdominal pain will write for a another 15 mg of Toradol as she had good relief with this earlier. [AK] ED Course User Index [AK] Cj Frias DO [JG] Cira Mack MD [MR] Skyler Olson DO [SPLICING MACHINE OPERATOR] Fabrizio Patel DO Diagnoses as of 12/09/24 1322 Abdominal pain, epigastric Nausea Hypokalemia The patient was seen by the resident/fellow. I have personally performed a substantive portion of the encounter. I have seen and examined the patient; agree with the workup, evaluation, MDM, management and diagnosis. The care plan has been discussed with the resident; I have reviewed the resident???s note and agree with the documented findings. Airam Farah MD * Skyler Olson DO - 12/07/2024 9:15 AM EDT Images from the original note were not included. Emergency Department Transition of Care Note Signout I received Negro Stacy in signout from Dr. Justine Padilla. Please see the ED Provider Note forall HPI, PE and MDM up to the time of signout at 7:00. This is in addition to the primary record. In brief Negro Stacy is an 29 y.o. female history of Hodgkin's lymphoma in remission, copper deficiency, and cholecystectomy in 2018 presenting for upper quadrant pain with nausea, vomiting and diarrhea for the past week. Patient states that she has been unable to tolerate p.o. intake for the last [address] was negative for acute pathology. Patient has been given Dilaudid as well as Zofran for nausea however is still unable to tolerate p.o. intake. Patient does have out of network insuranceand would like to be transferred to [facility] per patient preference. At the time of signout we were awaiting: Transfer to [facility] ED Course & Medical Decision Making Medical Decision Making: Under my care, reassessed patient who is currently complaining of upper quadrant abdominal pain as well as continued nausea. She states that she has been able to tolerate clear liquids however has not been able to keep down any solids. Reached out to transfer center again who states that [facility] toldhim that their bed situation is better today and they anticipate transfer today. On reassessment, patient is continuing to have abdominal pain. She has been able to tolerate soft liquid diet as well as oral pain pills. Patient was signed out to Dr. Justine Padilla pending transfer to [facility]. ED Course: ED Course as of 12/07/241911 Ela Dec 05, 2024 1640 Potassium is 3.3. Magnesium is normal. Once patient is finished with CT and is able to tolerate p.o., will replete with oral potassium pills. [SPLICING MACHINE OPERATOR] 1809 US right upper quadrant Nonobstructing right-sided nephrolithiasis otherwise unremarkable. [SPLICING MACHINE OPERATOR] 1911 CT abdomen pelvis did not show any acute abnormality of the abdomen pelvis. [SPLICING MACHINE OPERATOR] Fri Dec 06, 2024 0747 Receiving patient at [facility], reached out to transfer center who states that patient is still waiting for bed assignment at [facility] at this time. [MR] 1121 Reached out to transfer center again who states that patient is still waiting for bed assignment at [facility] as of 9:53 AM [MR] 1322 Spoke with transfer center again and they state that they still have not heard from [facility] regarding an open bed. [MR] ED Course User Index [MR] Skyler Olson DO [SPLICING MACHINE OPERATOR] Fabrizio Patel DO Diagnoses as of 12/07/241911 Abdominal pain, epigastric Nausea Disposition Patient was signed out to Dr. Justine Padilla at 19:00 pending completion of their work-up. Pleasesee the next provider's transition of care note for the remainder of the patient's care. Procedures Procedures Patient seen and discussed with ED attending physician. Skyler Olson DO Emergency Medicine PGY-1 Cosigned by Zak Gonzalez DO at 12/08/2024 3:12 PM EDT Associated attestation - Zak Gonzalez DO - 12/08/2024 3:12 PM EDT The patient was seen by the resident/fellow. I agree with the workup, evaluation, MDM, management and diagnosis. The care plan has been discussed with the resident; I have reviewed the resident???s note and agree with the documented findings. * Justine Padilla MD - 12/07/2024 7:59 AM EDT Images from the original note were not included. Emergency Department Transition of Care Note Signout I received Negro Stacy in signout from Dr. Joanna Colin. Please see the ED Provider Note for all HPI, PE and MDM up to the time of signout at 2300. This is in addition to the primary record. In brief Negro Stacy is an 29 y.o. female presenting for right upper quadrant abdominal pain forthe past week. She endorses associated nausea, vomiting, diarrhea. CT scan abdomen with contrast negative for acute abdominal pathology. Patient has been unable to tolerate p.o and experiencing difficulty with pain control. She has received multiple doses of Dilaudid Zofran and Compazine while in the ED. At the time of signout we were awaiting: Transferred to [facility] since patient's insurance is out of network. ED Course & Medical Decision Making Medical Decision Making: Under my care, I awaited transportation to arrive to take the patient to [facility]. Overnight patient had 4-5 episodes of diarrhea. Patient endorsed abdominal pain. As needed pain meds given. ED Course: ED Course as of 12/07/24 1607 Ela Dec 05, 2024 1640 Potassium is 3.3. Magnesium is normal. Once patient is finished with CT and is able to tolerate p.o., will replete with oral potassium pills. [SPLICING MACHINE OPERATOR] 1810 US right upper quadrant Nonobstructing right-sided nephrolithiasis otherwise unremarkable. [SPLICING MACHINE OPERATOR] 191 CT abdomen pelvis did not show any acute abnormality of the abdomen pelvis. [SPLICING MACHINE OPERATOR] Fri Dec 06, 2024 0747 Receiving patient at signout, reached out to transfer center who states that patient is still waiting for bed assignment at [facility] at this time. [MR] 1121 Reached out to transfer center again who states that patient is still waiting for bed assignment at [facility] as of 9:53 AM [MR] 1322 Spoke with transfer center again and they state that they still have not heard from [facility] regarding an open bed. [MR] ED Course User Index [MR] [place] Jacqueline Olson DO [SPLICING MACHINE OPERATOR] Fabrizio Patel DO Diagnoses as of 12/07/24 1607 Abdominal pain, epigastric Nausea Disposition Patient signed out to Dr. Skyler Olson at 0700 on 12/07/2024. Please see this providers note for continued management. Procedures Procedures Patient seen and discussed with ED attending physician. Justine Padilla MD Emergency Medicine Cosigned by Stella Koch DO at 12/10/2024 11:09 AM EDT Associated attestation - Stella Koch DO - 12/10/2024 11:09 AM EDT ATTENDING ATTESTATION: The patient was seen by the resident/fellow. I have personally performed a substantive portion of the encounter. I have seen and examined the patient; agree with the workup, evaluation, MDM, management and diagnosis. The care plan has been discussed with the resident; I have reviewed the resident???s note and agree with the documented findings with any additions/exceptions as below. Stella Koch DO ED Attending * Joanna Colin DO - 12/06/2024 11:55 PM EDT Images from the original note were not included. Emergency Department Transition of Care Note Signout I received Negro Stacy in signout from Dr. Skyler Olson. Please see the ED Provider Note for all HPI, PE and MDM up to the time of signout at 1500. This is in addition to the primary record. In brief Negro Stacy is an 29 y.o. female with a history of Hodgkin's lymphoma in remission, copper deficiency, and prior cholecystectomy (2018) who presents with right upper quadrant abdominal pain associated with nausea, vomiting, and diarrhea for the past week. She reports being unable to tolerate oral intake for the last two days. A CT scan of the abdomen and pelvis was negative for any acute pathology. She has received Dilaudid for pain and Zofran for nausea in the ED but remains unableto tolerate oral intake. The patient has [id number] insurance and is requesting transfer to [facility] for further care per her preference. At the time of signout we were awaiting: Transfer to [facility] ED Course & Medical Decision Making Medical Decision Making: Under my care, continue to follow p.o. challenge. With switch Zofran to Reglan and put the patient on pain medication scheduled. Still due to the lack of bed the, patient was unable to transferred the patient to [facility] ED Course: ED Course as of 12/06/24 2355 Ela Dec 05, 2024 1640 Potassium is 3.3. Magnesium is normal. Once patient is finished with CT and is able to tolerate p.o., will replete with oral potassium pills. [SPLICING MACHINE OPERATOR] 1809 US right upper quadrant Nonobstructing right-sided nephrolithiasis otherwise unremarkable. [SPLICING MACHINE OPERATOR] 191 CT abdomen pelvis did not show any acute abnormality of the abdomen pelvis. [SPLICING MACHINE OPERATOR] Fri Dec 06, 2024 0747 Receiving patient at [facility], reached out to transfer center who states that patient is still waiting for bed assignment at [facility] at this time. [MR] 1121 Reached out to transfer center again who states that patient is still waiting for bed assignment at [facility] as of 9:53 AM [MR] 1322 Spoke with transfer center again and they state that they still have not heard from [facility] regarding an open bed. [MR] ED Course User Index [MR] Skyler Olson DO [SPLICING MACHINE OPERATOR] Fabrizio Patel DO Diagnoses as of 12/06/242354 Abdominal pain, epigastric Nausea Disposition Patient was signed out to justine Padilla at 2300 pending completion of their work-up. Please see the next provider's transition of care note for the remainder of the patient's care. Procedures Procedures Patient seen and discussed with ED attending physician. Joanna Colin DO Emergency Medicine Cosigned by Horacio Fuentes MD at 12/08/2024 8:15 AM EDT Associated attestation - Horacio Fuentes MD - 12/08/2024 8:15 AM EDT I received this patient at sign out. I agree with the stated plan as documented by the resident or MARIOLA. Patient presenting with persistent nausea and vomiting, CT is negative for any acute pathology. Awaiting transfer to [facility]. Continued on fluids, daily blood chemistry, scheduled pain medication. Signed out to night team with transfer pending. * Justine Padilla MD - 12/06/2024 12:33 PM EDT Images from the original note were not included. Emergency Department Transition of Care Note Signout I received Negro Stacy in signout from Dr. Fabrizio Patel. Please see the ED Provider Note for all HPI, PE and MDM up to the time of signout at 2300. This is in addition to the primary record. In brief Negro Stacy is an 29 y.o. female presenting for 1.5 weeks of RUQ abdominal pain and diarrhea. CT abdomen and RUQ ultrasound negative for acute abnormalities. Patient received multiple doses of Zofran, multiple doses of dilaudid and compazine while in the ED at [facility]. Patient being transferred and admitted for inability to tolerate po intake, pain control and intractable nausea. At the time of signout we were awaiting: Transfer to [facility] due to out of network insurance. ED Course & Medical Decision Making Medical Decision Making: Under my care, the patient reported pain around 0400. I administered 1 mg of dilaudid to assist with pain control. ED Course: ED Course as of 12/06/24 1233 Ela Dec 05, 2024 1640 Potassium is 3.3. Magnesium is normal. Once patient is finished with CT and is able to tolerate p.o., will replete with oral potassium pills. [SPLICING MACHINE OPERATOR] 1810 US right upper quadrant Nonobstructing right-sided nephrolithiasis otherwise unremarkable. [SPLICING MACHINE OPERATOR] 191 CT abdomen pelvis did not show any acute abnormality of the abdomen pelvis. [SPLICING MACHINE OPERATOR] MonDec 06, 2024 0747 Receiving patient at signout, reached out to transfer center who states that patient is still waiting for bed assignment at [facility] at this time. [MR] 1121 Reached out to transfer center again who states that patient is still waiting for bed assignment at [facility] as of 9:53 AM [MR] ED Course User Index [MR] Skyler Olson [SPLICING MACHINE OPERATOR] Fabriziotrish Patel DO Diagnoses as of 12/06/24 1233 Abdominal pain, epigastric Nausea Disposition This patient was signed out to Dr. Skyler Olson on 12/06/24 at 0700. Please see his note for continued management. Procedures Procedures Patient seen and discussed with ED attending physician. Justine Padilla MD Emergency Medicine Cosigned by Reji Hidalgo MD at 12/06/2024 4:40 PM EDT Associated attestation - Reji Hidalgo MD - 12/06/2024 4:40 PM EDT Emergency Medicine Attending Attestation: The patient was seen by the resident/fellow. I have personally performed a substantive portion of the encounter. I have seen and examined the patient; agree with the workup, evaluation, MDM, management and diagnosis. The care plan has been discussed with the resident; I have reviewed the resident???s note and agree with the documented findings. Reji Hidalgo MD * Skyler Olson DO - 12/06/2024 7:40 AM EDT Images from the original note were not included. Emergency Department Transition of Care Note Signout I received Negro Stacy in signout from Dr. Justine Padilla. Please see the ED Provider Note forall HPI, PE and MDM up to the time of signout at 7:00. This is in addition to the primary record. In brief Negro Stacy is an 29 y.o. female with history of Hodgkin's lymphoma in remission, copper deficiency, and cholecystectomy in 2018 presenting for upper quadrant pain with nausea, vomiting and diarrhea for the past week. Patient states that she has been unable to tolerate p.o. intake for the last [address] was negative for acute pathology. Patient has been given Dilaudid as well as Zofran for nausea however is still unable to tolerate p.o. intake. Patient does have out of network insurance and would like to be transferred to [facility] per patient preference. At the time of signout we were awaiting: Transfer to [facility] ED Course & Medical Decision Making Medical Decision Making: Under my care, reassessed patient who is lying comfortably with no complaints right now. She reports that her pain level is well-controlled at the moment and she has not vomited in the past few hours. He is vitally stable and abdomen is soft and not peritonitic. Reached out to transfer center who reports that patient is accepted at [facility] however is pending bed assignment. After 24-hour stay without bed assignment at [facility], reasonable to provide best care to patient here at . Attempted to admit patient to , however I was informed that patient would be billed regardless. Patient was signed out to Dr. Joanna Colin pending repeat p.o. challenge and possible transfer to [facility]. ED Course: ED Course as of 12/06/24 1527 Ela Dec 05, 2024 1640 Potassium is 3.3. Magnesium is normal. Once patient is finished with CT and is able to tolerate p.o., will replete with oral potassium pills. [SPLICING MACHINE OPERATOR] 1810 US right upper quadrant Nonobstructing right-sided nephrolithiasis otherwise unremarkable. [SPLICING MACHINE OPERATOR] 191 CT abdomen pelvis did not show any acute abnormality of the abdomen pelvis. [SPLICING MACHINE OPERATOR] MonDec 06, 2024 0747 Receiving patient at signout, reached out to transfer center who states that patient is still waiting for bed assignment at [facility] at this time. [MR] 1121 Reached out to transfer center again who states that patient is still waiting for bed assignment at [facility] as of 9:53 AM [MR] 1322 Spoke with transfer center again and they state that they still have not heard from [facility] regarding an open bed. [MR] ED Course User Index [MR] Skyler Olson DO [SPLICING MACHINE OPERATOR] Fabrizio Patel DO Diagnoses as of 12/06/24 1527 Abdominal pain, epigastric Nausea Disposition Patient was signed out to Dr. Joanna Colin at 15:00 pending completion of their work-up. Please see the next provider's transition of care note for the remainder of the patient's care. Procedures Procedures Patient seen and discussed with ED attending physician. Skyler Olson DO Emergency Medicine PGY-1 Cosigned by Lisy Linn MD at 12/08/2024 8:35 AM EDT Associated attestation - Lisy Linn MD - 12/08/2024 8:35 AM EDT The patient was seen by the MARIOLA/resident/fellow. I agree with the workup, evaluation, MDM, management and diagnosis. The care plan has been discussed with the MARIOLA/resident; I have reviewed the MARIOLA/resident???s note and agree with the documented findings. documented in this encounter ED Notes * Fabrizio Patel DO - 12/05/2024 4:22 PM EDT Images from the original note were not included. Emergency Department Provider Note History of Present Illness History provided by: Patient Limitations to History: None External Records Reviewed with Brief Summary: None HPI: Negro Stacy is a 29 y.o. female with a history of cholecystectomy, Hodgkin's lymphoma in remission who presents for abdominal pain and diarrhea. She reports that she had the cholecystectomy back in 2019. She did experience complication during surgery where her bile duct need to be reconstructed.She has not had any complications since. However about a week and a half ago she started experiencin g abdominal pain and diarrhea. The diarrhea is loose stool and without blood. The pain is in the right upper quadrant and epigastric areas. It is not radiate and is only relieved by laying in the position. Patient states that she has been able to tolerate p.o. intake until 2 days ago. She states that she has not been able to eat foods for the last 2 days due to overwhelming nausea but is able to tolerate fluids. She endorses that the pain is exacerbated after meals. She denies chance of . She denies any fever or chills, chest pains, shortness of breath, dysuria, hematuria, weakness. Denies any alcohol or drug use. Physical Exam Triage vitals: T 36.6 ??C (97.9 ??F) HR 65 BP (!) 145/92 RR 16 O2 100 % None (Room air) General: Awake, alert, in no acute distress. Patient is resting in bed with knees to chest Eyes: Gaze conjugate. No scleral icterus or injection HENT: Normo-cephalic, atraumatic. No stridor CV: Regular rate, regular rhythm. Radial pulses 2+ bilaterally Resp: Breathing non-labored, speaking in full sentences. Clear to auscultation bilaterally GI: Epigastric tenderness. No rebound or guarding. Hypoactive bowel sounds. Skin: Surgical incision scar on right abdomen. Appears healing well and well- approximated. Does notappear erythematous or draining purulent drainage. Does not feel warm to touch Medical Decision Making & ED Course Medical Decision Makin y.o. female with history of cholecystectomy and Hodgkin's lymphoma who presents for abdominal pain and diarrhea. Patient could still experience choledocholithiasis will proceed with a right upper quadrant ultrasound to assess for inflammation or choledocholithiasis. Lipase and CT abdomen/pelvis w ere ordered to rule out pancreatitis, SBO. Patient is afebrile and resting comfortably in bed. I donot believe that she is experiencing pain out of proportion to exam, so I have a low suspicion for acute mesenteric ischemia. Labs were reviewed and showed slightly decreased potassium but was otherwise unremarkable. CT was negative did not show any potential etiology for patient's pain. Upon reassessment, patient is currently in position due to pain and nausea. She was given additional Dilaudid and Zofran at this time. If patient is unable to tolerate p.o. intake, she cannot be discharged home due to her pain. Patient does have out of network insurance. I had a discussion with patient regarding her options if she were to get admitted. She would like to be transferred to [facility] per patient preference. Transfer process has been initiated. I have been providing nausea and pain control patient as needed. Nelson monaco will be signed out to oncoming provider, Dr. Justine Padilla, pending transfer and reassessment. ---- Differential diagnoses considered include but are not limited to: Choledocholithiasis, biliary stricture, pancreatitis, SBO, gastritis, peptic ulcer disease Social Determinants of Health which Significantly Impact Care: Social Determinants of Health which Significantly Impact Care: None identified EKG Independent Interpretation: EKG not obtained Independent Result Review and Interpretation: Relevant laboratory and radiographic results were reviewed and independently interpreted by myself. As necessary, they are commented on in the ED Course. Chronic conditions affecting the patient's care: As documented above in [facility] The patient was discussed with the following consultants/services: Transfer center so the patient be transferred to [facility]. Care Considerations: As documented above in [facility] ED Course: ED Course as of 12/05/241920 Ela Dec 05, 2024 1640 Potassium is 3.3. Magnesium is normal. Once patient is finished with CT and is able to tolerate p.o., will replete with oral potassium pills. [SPLICING MACHINE OPERATOR] 1809 US right upper quadrant Nonobstructing right-sided nephrolithiasis otherwise unremarkable. [SPLICING MACHINE OPERATOR] 1911 CT abdomen pelvis did not show any acute abnormality of the abdomen pelvis. [SPLICING MACHINE OPERATOR] ED Course User Index [SPLICING MACHINE OPERATOR] Fabrizio Patel DO Disposition Patient was signed out to Dr. Justine Padilla at 23:00 pending completion of their work-up. Pleasesee the next provider's transition of care note for the remainder of the patient's care. Procedures Procedures Patient seen and discussed with ED attending physician. Fabrizio Patel DO Emergency Medicine Fabrizio Patel DO Resident 12/05/242324 Cosigned by Kelsy Mchugh MD at 12/08/2024 10:43 AM EDT Associated attestation - Kelsy Mchugh MD - 12/08/2024 10:43 AM EDT The patient was seen with the resident physician. I have personally performed a substantive portionof the encounter. I have seen and examined the patient and agree with the workup, medical decision-making, management, diagnosis, and disposition. The care plan has been discussed with the resident and I have reviewed/agree with their documented findings with the exception/addition of the followin-year-old female with history of cholecystectomy presenting to the ED for RUQ pain preceded by several days of watery nonbloody diarrhea. She denies any fever, vomiting, urinary symptoms. She's hemodynamically stable, no distress. Exam is notable for RUQ tenderness without signs of peritonitis. Incision is well-healed. She was given analgesics. CT shows no acute process. She continues to have ongoing pain and is unable to tolerate PO. Etiology of this is unclear, possibly gastritis or viral process. Her insurance is out of network so through shared decision making will transfer to [facility]. Kelsy Mchugh MD * Nikolay Santos RN - 12/05/2024 1:42 PM EDT Patient presents to the Emergency department with a chief complaint of right upper quadrant abdominal pain with nausea, vomiting, and diarrhea. Patient had her galbladder removed in 2018, diagnosed with Hodgkin's Lymphoma in 2021 and is currently in remission. Patient states she has been having diarrhea for 2.5 weeks and the pain for about a week and a half. Patient states eating makes her pain worse. documented in this encounter Plan of Treatment Pending Results Name Type Priority Associated Diagnoses Date /Time ECG 12 lead ECG STAT 12/06/2024 6: 42 PM EDT ECG 12 lead ECG STAT 12/07/2024 8: 57 AM EDT Scheduled Orders Name Type Priority Associated Diagnoses Orde r Schedule C. difficile, PCR Microbiology STAT STAT (Lab) for 1 Occurrences starting 12/08/2024 until 12/08/2024 Stool Pathogen Panel, PCR Microbiology STAT Once (Lab) for 1 Occurrences starting 12/08/2024 until 12/08/2024 documented as of this encounter Procedures Procedure Name Priority Date/Time Associated Diagnosis Comments CBC STAT 12/08/2024 5:32 AM EDT COMPREHENSIVE METABOLIC PANEL STAT 12/08/2024 5:32 AM EDT ECG 12-LEAD STAT 12/07/2024 8:57 AM EDT Procedure Note - 12/07/2024 8:57 AM EDTThis note is in progress. Sinus rhythm with marked sinus arrhythmia Rightward axis Borderline ECG When compared with ECG of 06-DEC-2024 18:30, No significant change was found CBC STAT 12/07/2024 5:12 AM EDT COMPREHENSIVE METABOLIC PANEL STAT 12/07/2024 5:12 AM EDT ECG 12-LEAD STAT 12/06/2024 6:42 PM EDT Procedure Note - 12/06/2024 6:42 PM EDTThis note is in progress. Normal sinus rhythm Normal ECG No previous ECGs available SARS-COV-2 AND INFLUENZA A/B PCR STAT 12/06/2024 5:22 PM EDT CBC STAT 12/06/2024 5:19 PM EDT MAGNESIUM STAT 12/06/2024 5:19 PM EDT COMPREHENSIVE METABOLIC PANEL STAT 12/06/2024 5:19 PM EDT DRUG SCREEN,URINE STAT 12/06/2024 8:[address] ABDOMEN PELVIS W IV CONTRAST STAT 12/05/2024 5:22 PM EDT US RIGHT UPPER QUADRANT STAT 12/05/2024 4:42 PM EDT POCT , URINE STAT 12/05/2024 3:58 PM EDT EXTRA URINE PURDY TUBE STAT 12/05/2024 3:52 PM EDT URINALYSIS WITH REFLEX MICROSCOPIC AND CULTURE STAT 12/05/2024 3:52 PM EDT URINALYSIS MICROSCOPIC WITH REFLEX CULTURE STAT 12/05/2024 3:52 PM EDT URINALYSIS WITH REFLEX MICROSCOPIC AND CULTURE STAT 12/05/2024 3:52 PM EDT CBC WITH AUTO DIFFERENTIAL STAT 12/05/2024 1:58 PM EDT MAGNESIUM Add-On 12/05/2024 1:58 PM EDT LIPASE STAT 12/05/2024 1:58 PM EDT COMPREHENSIVE METABOLIC PANEL STAT 12/05/2024 1:58 PM EDT documented in this encounter Results * (ABNORMAL) Comprehensive metabolic panel (12/08/2024 5:32 AM EDT) [facility] Glucose 82 74 - 99 mg/dL LAB CHEMISTRY METHOD 12/08/2024 7:00 AM EDT [facility] Sodium 140 136 - 145 mmol/L LAB CHEMISTRY METHOD 12/08/2024 7:00 AM EDT [facility] Potassium 3.0(L) 3.5 - 5.3 mmol/L LAB CHEMISTRY METHOD 12/08/2024 7:00 AM EDT [facility] Chloride 104 98 - 107 mmol/L LAB CHEMISTRY METHOD 12/08/2024 7:00 AM EDT [facility] Bicarbonate 27 21 - 32 mmol/L LAB CHEMISTRY METHOD 12/08/2024 7:00 AM EDT [facility] Anion Gap 12 10 - 20 mmol/L LAB CHEMISTRY METHOD 12/08/2024 7:00 AM EDT [facility] Urea Nitrogen 14 6 - 23 mg/dL LAB CHEMISTRY METHOD 12/08/2024 7:00 AM EDT [facility] Creatinine 0.60 0.50 - 1.05 mg/dL LAB CHEMISTRY METHOD 12/08/2024 7:00 AM EDT [facility] eGFR >90 >60 mL/min/1. 73m*2 LAB CHEMISTRY METHOD 12/08/2024 7:00 AM EDT [facility] Comment: Calculations of estimated GFR are performed using the 2020 CKD-EPI Study Refit equation without the race variable for the IDMS-Traceable creatinine methods. https://jasn.asnjournals.org/content//ASN.5719124754 Calcium 8.8 8.6 - 10.6 mg/dL LAB CHEMISTRY METHOD 12/08/2024 7:00 AM EDT [facility] Albumin 4.3 3.4 - 5.0 g/dL LAB CHEMISTRY METHOD 12/08/2024 7:00 AM EDT [facility] Alkaline Phosphatase 57 33 - 110 U/L LAB CHEMISTRY METHOD 12/08/2024 7:00 AM EDT [facility] Total Protein 6.7 6.4 - 8.2 g/dL LAB CHEMISTRY METHOD 12/08/2024 7:00 AM EDT [facility] AST 10 9 - 39 U/L LAB CHEMISTRY METHOD 12/08/2024 7:00 AM EDT [facility] Bilirubin, Total 0.9 0.0 - 1.2 mg/dL LAB CHEMISTRY METHOD 12/08/2024 7:00 AM EDT [facility] ALT 10 7 - 45 U/L LAB CHEMISTRY METHOD 12/08/2024 7:00 AM EDT [facility] Comment:Patients treated wit h Sulfasalazine may generate falsely decreased results for ALT. Blood Venous blood specimen / Unknown Venipuncture / Unknown 12/08/2024 5:32 AM EDT 12/08/2024 6:27 AM EDT us Horacio Fuentes MD LAB BLOOD ORDERABLES Final Res ult [facility] [id number] [place], [place] [id number] * CBC (12/08/2024 5:32 AM EDT) WBC 5.8 4.4 - 11.3 x10*3/uL LAB HEMATOLOGY METHOD 12/08/2024 6:43 AM EDT [facility] nRBC 0.0 0.0 - 0.0 /100 WBCs LAB HEMATOLOGY METHOD 12/08/2024 6:43 AM EDT [facility] RBC 4.57 4.00 - 5.20 x10*6/uL LAB HEMATOLOGY METHOD 12/08/2024 6:43 AM EDT [facility] Hemoglobin 12.5 12.0 - 16.0 g/dL LAB HEMATOLOGY METHOD 12/08/2024 6:43 AM EDT [facility] Hematocrit 36.5 36.0 - 46.0 % LAB HEMATOLOGY METHOD 12/08/2024 6:43 AM EDT [facility] MCV 80 80 - 100 fL LAB HEMATOLOGY METHOD 12/08/2024 6:43 AM EDT [facility] MCH 27.4 26.0 - 34.0 pg LAB HEMATOLOGY METHOD 12/08/2024 6:43 AM EDT [facility] MCHC 34.2 32.0 - 36.0 g/dL LAB HEMATOLOGY METHOD 12/08/2024 6:43 AM EDT [facility] RDW 11.9 11.5 - 14.5 % LAB HEMATOLOGY METHOD 12/08/2024 6:43 AM EDT [facility] Platelets 221 150 - 450 x10*3/uL LAB HEMATOLOGY METHOD 12/08/2024 6:43 AM EDT [facility] Blood Venous blood specimen / Unknown Venipuncture / Unknown 12/08/2024 5:32 AM EDT 12/08/2024 6:27 AM EDT us Horacio Fuentes MD LAB BLOOD ORDERABLES Final Res ult [facility] [id number] [place], [place] [id number] * (ABNORMAL) Comprehensive metabolic panel (12/07/2024 5:12 AM EDT) [facility] Glucose 91 74 - 99 mg/dL LAB CHEMISTRY METHOD 12/07/2024 6:22 AM EDT [facility] Sodium 139 136 - 145 mmol/L LAB CHEMISTRY METHOD 12/07/2024 6:22 AM EDT [facility] Potassium 3.4(L) 3.5 - 5.3 mmol/L LAB CHEMISTRY METHOD 12/07/2024 6:22 AM EDT [facility] Chloride 102 98 - 107 mmol/L LAB CHEMISTRY METHOD 12/07/2024 6:22 AM EDT [facility] Bicarbonate 25 21 - 32 mmol/L LAB CHEMISTRY METHOD 12/07/2024 6:22 AM EDT [facility] Anion Gap 15 10 - 20 mmol/L LAB CHEMISTRY METHOD 12/07/2024 6:22 AM EDT [facility] Urea Nitrogen 17 6 - 23 mg/dL LAB CHEMISTRY METHOD 12/07/2024 6:22 AM EDT [facility] Creatinine 0.58 0.50 - 1.05 mg/dL LAB CHEMISTRY METHOD 12/07/2024 6:22 AM EDT [facility] eGFR >90 >60 mL/min/1. 73m*2 LAB CHEMISTRY METHOD 12/07/2024 6:22 AM EDT [facility] Comment: Calculations of estimated GFR are performed using the 2020 CKD-EPI Study Refit equation without the race variable for the IDMS-Traceable creatinine methods. https://jasn.asnjournals.org/content/early//ASN.5830444437 Calcium 8.8 8.6 - 10.6 mg/dL LAB CHEMISTRY METHOD 12/07/2024 6:22 AM EDT [facility] Albumin 4.5 3.4 - 5.0 g/dL LAB CHEMISTRY METHOD 12/07/2024 6:22 AM EDT [facility] Alkaline Phosphatase 60 33 - 110 U/L LAB CHEMISTRY METHOD 12/07/2024 6:22 AM EDT [facility] Total Protein 6.8 6.4 - 8.2 g/dL LAB CHEMISTRY METHOD 12/07/2024 6:22 AM EDT [facility] AST 13 9 - 39 U/L LAB CHEMISTRY METHOD 12/07/2024 6:22 AM EDT [facility] Bilirubin, Total 0.5 0.0 - 1.2 mg/dL LAB CHEMISTRY METHOD 12/07/2024 6:22 AM EDT [facility] ALT 14 7 - 45 U/L LAB CHEMISTRY METHOD 12/07/2024 6:22 AM EDT [facility] Comment:Patients treated wit h Sulfasalazine may generate falsely decreased results for ALT. Blood Venous blood specimen / Unknown Venipuncture / Unknown 12/07/2024 5:12 AM EDT 12/07/2024 5:53 AM EDT us Horacio Fuentes MD LAB BLOOD ORDERABLES Final Res ult [facility] [address] [facility] [address] [place] [address] * CBC (12/07/2024 5:12 AM EDT) WBC 8.0 4.4 - 11.3 x10*3/uL LAB HEMATOLOGY METHOD 12/07/2024 5:57 AM EDT [facility] nRBC 0.0 0.0 - 0.0 /100 WBCs LAB HEMATOLOGY METHOD 12/07/2024 5:57 AM EDT [facility] RBC 4.60 4.00 - 5.20 x10*6/uL LAB HEMATOLOGY METHOD 12/07/2024 5:57 AM EDT [facility] Hemoglobin 12.9 12.0 - 16.0 g/dL LAB HEMATOLOGY METHOD 12/07/2024 5:57 AM EDT [facility] Hematocrit 36.9 36.0 - 46.0 % LAB HEMATOLOGY METHOD 12/07/2024 5:57 AM EDT [facility] MCV 80 80 - 100 fL LAB HEMATOLOGY METHOD 12/07/2024 5:57 AM EDT [facility] MCH 28.0 26.0 - 34.0 pg LAB HEMATOLOGY METHOD 12/07/2024 5:57 AM EDT [facility] MCHC 35.0 32.0 - 36.0 g/dL LAB HEMATOLOGY METHOD 12/07/2024 5:57 AM EDT [facility] RDW 11.7 11.5 - 14.5 % LAB HEMATOLOGY METHOD 12/07/2024 5:57 AM EDT [facility] Platelets 239 150 - 450 x10*3/uL LAB HEMATOLOGY METHOD 12/07/2024 5:57 AM EDT [facility] Blood Venous blood specimen / Unknown Venipuncture / Unknown 12/07/2024 5:12 AM EDT 12/07/2024 5:53 AM EDT us Horacio Fuentes MD LAB BLOOD ORDERABLES Final Res ult [facility] [id number] [place] [address] * Sars-CoV-2 and Influenza A/B PCR (12/06/2024 5:22 PM EDT) Pathologist [facility] Flu A Result Not Detected Not Detected X_PERT XPRESS SARS-COV2 _CEPHEID_ EUA 12/06/2024 6:40 PM EDT [facility] Flu B Result Not Detected Not Detected X_PERT XPRESS SARS-COV2 _CEPHEID_ EUA 12/06/2024 6:40 PM EDT [facility] Coronavirus 2019, PCR Not Detected Not Detected X_PERT XPRESS SARS-COV2 _CEPHEID_ EUA 12/06/2024 6:40 PM EDT [facility] Swab Nasopharyngeal swab / Unknown 12/06/2024 5:22 PM EDT 12/06/2024 5:43 PM EDT Narrative [facility] - 12/06/2024 6:40 PM EDT This assay is an FDA-cleared, in vitro diagnostic nucleic acid amplification test for the qualitative detection and differentiation of SARS CoV-2/ Influenza A/B from nasopharyngeal specimens collected from individuals with signs and symptoms of respiratory tract infections, and has been validated for use at [facility]. Negative results do not preclude COVID-19/ Influenza A/B infections and should not be used as the sole basis for diagnosis, treatment, or other management decisions. Testing for SARS CoV-2 is recommended only for patients who meet current clinical and/or epidemiological criteria defined by federal, state, or local public health directives. Horacio Fuentes MD LAB MOLECULAR DIAGNOSTICS MARY GRACE CHENG Final Result [facility] [id number] [place] [address] * CBC (12/06/2024 5:19 PM EDT) [facility] WBC 8.4 4.4 - 11.3 x10*3/uL LAB HEMATOLOGY METHOD 12/06/2024 5:50 PM EDT [facility] nRBC 0.0 0.0 - 0.0 /100 WBCs LAB HEMATOLOGY METHOD 12/06/2024 5:50 PM EDT [facility] RBC 4.69 4.00 - 5.20 x10*6/uL LAB HEMATOLOGY METHOD 12/06/2024 5:50 PM EDT [facility] Hemoglobin 13.0 12.0 - 16.0 g/dL LAB HEMATOLOGY METHOD 12/06/2024 5:50 PM EDT [facility] Hematocrit 37.5 36.0 - 46.0 % LAB HEMATOLOGY METHOD 12/06/2024 5:50 PM EDT [facility] MCV 80 80 - 100 fL LAB HEMATOLOGY METHOD 12/06/2024 5:50 PM EDT [facility] MCH 27.7 26.0 - 34.0 pg LAB HEMATOLOGY METHOD 12/06/2024 5:50 PM EDT [facility] MCHC 34.7 32.0 - 36.0 g/dL LAB HEMATOLOGY METHOD 12/06/2024 5:50 PM EDT [facility] RDW 11.9 11.5 - 14.5 % LAB HEMATOLOGY METHOD 12/06/2024 5:50 PM EDT [facility] Platelets 221 150 - 450 x10*3/uL LAB HEMATOLOGY METHOD 12/06/2024 5:50 PM EDT [facility] Blood Venous blood specimen / Unknown Venipuncture / Unknown 12/06/2024 5:19 PM EDT 12/06/2024 5:45 PM EDT us Horacio Fuentes MD LAB BLOOD ORDERABLES Final Res ult Performing Organization Address City/[facility]/ZIP Co de Phone Number [facility] [id number] [place], [place] [id number] * Magnesium (12/06/2024 5:19 PM EDT) Pathologist [facility] Magnesium 2.13 1.60 - 2.40 mg/dL LAB CHEMISTRY METHOD 12/06/2024 6:13 PM EDT [facility] Blood Venous blood specimen / Unknown Venipuncture / Unknown 12/06/2024 5:19 PM EDT 12/06/2024 5:45 PM EDT Horacio Fuentes MD LAB BLOOD ORDERABLES Final Res ult [facility] [id number] [place] [id number] * (ABNORMAL) Comprehensive metabolic panel (12/06/2024 5:19 PM EDT) Pathologist [facility] Glucose 84 74 - 99 mg/dL LAB CHEMISTRY METHOD 12/06/2024 6:13 PM EDT [facility] Sodium 141 136 - 145 mmol/L LAB CHEMISTRY METHOD 12/06/2024 6:13 PM EDT [facility] Potassium 3.1(L) 3.5 - 5.3 mmol/L LAB CHEMISTRY METHOD 12/06/2024 6:13 PM EDT [facility] Chloride 105 98 - 107 mmol/L LAB CHEMISTRY METHOD 12/06/2024 6:13 PM EDT [facility] Bicarbonate 27 21 - 32 mmol/L LAB CHEMISTRY METHOD 12/06/2024 6:13 PM EDT [facility] Anion Gap 12 10 - 20 mmol/L LAB CHEMISTRY METHOD 12/06/2024 6:13 PM EDT [facility] Urea Nitrogen 20 6 - 23 mg/dL LAB CHEMISTRY METHOD 12/06/2024 6:13 PM EDT [facility] Creatinine 0.65 0.50 - 1.05 mg/dL LAB CHEMISTRY METHOD 12/06/2024 6:13 PM EDT [facility] eGFR >90 >60 mL/min/1. 73m*2 LAB CHEMISTRY METHOD 12/06/2024 6:13 PM EDT [facility] Comment: Calculations of estimated GFR are performed using the 2020 CKD-EPI Study Refit equation without the race variable for the IDMS-Traceable creatinine methods. https://jasn.asnjournals.org/content//ASN.8398241499 Calcium 9.1 8.6 - 10.6 mg/dL LAB CHEMISTRY METHOD 12/06/2024 6:13 PM EDT [facility] Albumin 4.5 3.4 - 5.0 g/dL LAB CHEMISTRY METHOD 12/06/2024 6:13 PM EDT [facility] Alkaline Phosphatase 60 33 - 110 U/L LAB CHEMISTRY METHOD 12/06/2024 6:13 PM EDT [facility] Total Protein 7.1 6.4 - 8.2 g/dL LAB CHEMISTRY METHOD 12/06/2024 6:13 PM EDT [facility] AST 10 9 - 39 U/L LAB CHEMISTRY METHOD 12/06/2024 6:13 PM EDT [facility] Bilirubin, Total 0.6 0.0 - 1.2 mg/dL LAB CHEMISTRY METHOD 12/06/2024 6:13 PM EDT [facility] ALT 12 7 - 45 U/L LAB CHEMISTRY METHOD 12/06/2024 6:13 PM EDT [facility] Comment:Patients treated wit h Sulfasalazine may generate falsely decreased results for ALT. Blood Venous blood specimen / Unknown Venipuncture / Unknown 12/06/2024 5:19 PM EDT 12/06/2024 5:45 PM EDT us Horacio Fuentes MD LAB BLOOD ORDERABLES Final Res ult [facility] [address] [place] [address] * (ABNORMAL) Drug Screen, Urine (12/06/2024 8:03 AM EDT) [facility] Amphetamine Screen, Urine Presumptive Negative Presumptive Negative LAB CHEMISTRY METHOD 9:35 AM T [facility] Comment: CUTOFF LEVEL: 500 NG/ML Cross-reactivity has been reported with high concentrations of the following drugs: buproprion, chloroquine, chlorpromazine, ephedrine, mephentermine, fenfluramine, phentermine, phenylpropanolamine, pseudoephedrine, and propranolol. Barbiturate Screen, Urine Presumptive Positive(A) Presumptive Negative LAB CHEMISTRY METHOD 9:35 AM EDT [facility] Comment:CUTOFF LEVEL: 200 NG /ML Benzodiazepines Screen, Urine Presumptive Negative Presumptive Negative LAB CHEMISTRY METHOD 9:35 AM EDT [facility] Comment:CUTOFF LEVEL: 200 NG /ML Cannabinoid Screen, Urine Presumptive Negative Presumptive Negative LAB CHEMISTRY METHOD 9:35 AM EDT [facility] Comment:CUTOFF LEVEL: 50 NG/ ML Cocaine Metabolite Screen, Urine Presumptive Negative Presumptive Negative LAB CHEMISTRY METHOD 9:35 AM EDT [facility] Comment:CUTOFF LEVEL: 150 NG /ML Fentanyl Screen, Urine Presumptive Negative Presumptive Negative LAB CHEMISTRY METHOD 9:35 AM EDT [facility] Comment:CUTOFF LEVEL: 5 NG/M L Opiate Screen, Urine Presumptive Positive(A) Presumptive Negative LAB CHEMISTRY METHOD 9:35 AM EDT [facility] Comment: CUTOFF LEVEL: 300 NG/ML The opiate screen does not detect fentanyl, meperidine, or tramadol. Oxycodone is not consistently detected (refer to Oxycodone Screen, Urine result). Oxycodone Screen, Urine Presumptive Negative Presumptive Negative LAB CHEMISTRY METHOD 9:35 AM EDT [facility] Comment: CUTOFF LEVEL: 100 NG/ML This test will accurately detect both oxycodone and oxymorphone. PCP Screen, Urine Presumptive Negative Presumptive Negative LAB CHEMISTRY METHOD 9:35 AM EDT [facility] Comment: CUTOFF LEVEL: 25 NG/ML Cross-reactivity has been reported with dextromethorphan. Methadone Screen, Urine Presumptive Negative Presumptive Negative LAB CHEMISTRY METHOD 9:35 AM EDT [facility] Comment: CUTOFF LEVEL: 150 NG/ML The metabolite R-ymrzh-vlnigssjoacfwq (LAAM) is not detected by this method in concentrations that would be found in the urine of patients on LAAM therapy. Urine Urine specimen / Unknown 12/06/2024 8:03 AM EDT 12/06/2024 8:59 AM EDT Narrative [facility] - 12/06/2024 9:35 AM EDT Drug screen results are presumptive and should not be used to assess compliance with prescribed medication. Contact the performing [facility] laboratory to add-on definitive confirmatory testing if clinically indicated. Toxicology screening results are reported qualitatively. The concentration must be greater than or equal to the cutoff to be reported as positive. The concentration at which the screening test can detect an individual drug or metabolite varies. The absence of expected drug(s) and/or drug metabolite(s) may indicate non-compliance, inappropriate timing of specimen collection relative to drug administration, poor drug absorption, diluted/adulterated urine, or limitations of testing. For medical purposes only; not valid for forensic use. Interpretive questions should be directed to the laboratory medical directors. us Reji Hidalgo MD LAB URINE ORDERABLES Final Result [facility] [address] [phone] * CT abdomen pelvis w IV contrast (12/05/2024 5:22 PM EDT) Anatomical Region Laterality Modality Abdominal, Body Computed Tomogra phy 12/05/2024 5:38 PM EDT 12/05/2024 7:09 PM EDT Impressions 12/05/2024 7:07 PM EDT 1. No acute abnormality within the abdomen or pelvis. 2. Postsurgical changes of cholecystectomy with small amount of pneumobilia. 3. Postsurgical changes of prior small bowel resection without evidence of obstruction. 4. Additional chronic/incidental findings detailed as above. I personally reviewed the images/study and I agree with the findings as stated by resident physician Christiano Espana MD. This study was interpreted at [facility], [place], [place]. MACRO: None Signed by: Fransisco Mora 12/05/2024 7:07 PM Dictation workstation: [id number] [facility] 12/05/2024 7:07 PM EDT Interpreted By: Fransisco Mora and Liu Scott STUDY: CT ABDOMEN PELVIS W IV CONTRAST; 12/05/2024 5:22 pm INDICATION: Signs/Symptoms:Abdominal pain. COMPARISON: Right upper quadrant ultrasound 12/05/2024 ACCESSION NUMBER(S): [id number] ORDERING CLINICIAN: FABRIZIO PATEL TECHNIQUE: CT of the abdomen and pelvis was performed. Standard contiguous axial images were obtained at 3 mm slice thickness through the abdomen and pelvis. Coronal and sagittal reconstructions at 3 mm slice thickness were performed. 75 ML of Omnipaque 350 was administered intravenously without immediate complication. FINDINGS: LOWER CHEST: No significant abnormality. ABDOMEN: LIVER: Normal-size. Few subcentimeter hypodensities within the left hepatic lobe are too small to characterize. No other focal lesion. BILE DUCTS: No intrahepatic or extrahepatic biliary dilation. Intrahepatic and extrahepatic pneumobilia. GALLBLADDER: Surgically absent. PANCREAS: No peripancreatic inflammatory stranding. No pancreatic ductal dilation. SPLEEN: Normal size. No focal lesion. ADRENAL GLANDS: No significant abnormality. KIDNEYS AND URETERS: Bilateral kidneys enhance symmetrically. No hydronephrosis or nephroureterolithiasis. PELVIS: BLADDER: Bladder is decompressed limiting for evaluation. REPRODUCTIVE ORGANS: Uterus is present. Suspected small nabothian cyst measuring 0.4 cm (Series 201, Image 130). BOWEL: Stomach is unremarkable. There are postsurgical changes of small-bowel resection of the right upper quadrant without evidence of obstruction or adjacent fluid collection to suggest anastomotic leak. The small and large bowel are otherwise normal caliber. Appendix not definitely visualized however no pericecal fat stranding. VESSELS: No significant abnormality. PERITONEUM/RETROPERITONEUM/LYMPH NODES: No ascites or free air, no fluid collection. No abdominopelvic lymphadenopathy is present. BONES AND ABDOMINAL WALL: No suspicious osseous lesions are identified. Rectus sheath diastasis with small fat containing paraumbilical hernia. Procedure Note Fransisco Mora MD - 12/05/2024 Interpreted By: Fransisco Mora and Liu Scott STUDY: CT ABDOMEN PELVIS W IV CONTRAST; 12/05/2024 5:22 pm INDICATION: Signs/Symptoms:Abdominal pain. COMPARISON: Right upper quadrant ultrasound 12/05/2024 ACCESSION NUMBER(S): [id number] ORDERING CLINICIAN: FABRIZIO PATEL TECHNIQUE: CT of the abdomen and pelvis was performed. Standard contiguous axial images were obtained at 3 mm slice thickness through the abdomen and pelvis. Coronal and sagittal reconstructions at 3 mm slice thickness were performed. 75 ML of Omnipaque 350 was administered intravenously without immediate complication. FINDINGS: LOWER CHEST: No significant abnormality. ABDOMEN: LIVER: Normal-size. Few subcentimeter hypodensities within the left hepatic lobe are too small to characterize. No other focal lesion. BILE DUCTS: No intrahepatic or extrahepatic biliary dilation. Intrahepatic and extrahepatic pneumobilia. GALLBLADDER: Surgically absent. PANCREAS: No peripancreatic inflammatory stranding. No pancreatic ductal dilation. SPLEEN: Normal size. No focal lesion. ADRENAL GLANDS: No significant abnormality. KIDNEYS AND URETERS: Bilateral kidneys enhance symmetrically. No hydronephrosis or nephroureterolithiasis. PELVIS: BLADDER: Bladder is decompressed limiting for evaluation. REPRODUCTIVE ORGANS: Uterus is present. Suspected small nabothian cyst measuring 0.4 cm (Series 201, Image 130). BOWEL: Stomach is unremarkable. There are postsurgical changes of small-bowel resection of the right upper quadrant without evidence of obstruction or adjacent fluid collection to suggest anastomotic leak. The small and large bowel are otherwise normal caliber. Appendix not definitely visualized however no pericecal fat stranding. VESSELS: No significant abnormality. PERITONEUM/RETROPERITONEUM/LYMPH NODES: No ascites or free air, no fluid collection. No abdominopelvic lymphadenopathy is present. BONES AND ABDOMINAL WALL: No suspicious osseous lesions are identified. Rectus sheath diastasis with small fat containing paraumbilical hernia. IMPRESSION: 1. No acute abnormality within the abdomen or pelvis. 2. Postsurgical changes of cholecystectomy with small amount of pneumobilia. 3. Postsurgical changes of prior small bowel resection without evidence of obstruction. 4. Additional chronic/incidental findings detailed as above. I personally reviewed the images/study and I agree with the findings as stated by resident physician Christiano Espana MD. This study was interpreted at [place], [place]. MACRO: None Signed by: Fransisco Mora 12/05/2024 7:07 PM Dictation workstation: [id number] us Fabrizio Patel DO IMG CT PROCEDURES Final Result * US right upper quadrant (12/05/2024 4:42 PM EDT) Anatomical Region Laterality Modality Upper Extremities Ultrasound 12/05/2024 5:12 PM EDT 12/05/2024 5:30 PM EDT Impressions 12/05/2024 5:29 PM EDT 1. Status post cholecystectomy. 2. Nonobstructing right-sided nephrolithiasis. No hydronephrosis. I personally reviewed the images/study and I agree with the findings as stated by Brennan Paniagua MD, PGY-3 this study was interpreted at [place], [place]. MACRO: None Signed by: Osbaldo Ta 12/05/2024 5:29 PM Dictation workstation: [id number] Narrative 12/05/2024 5:29 PM EDT Interpreted By: Osbaldo Ta, and Arcelia Amin STUDY: US RIGHT UPPER QUADRANT; 12/05/2024 4:42 pm INDICATION: Signs/Symptoms:RUQ pain. COMPARISON: None. ACCESSION NUMBER(S): [id number] ORDERING CLINICIAN: FABRIZIO TECHNIQUE: Multiple images of the right upper quadrant were obtained. FINDINGS: LIVER: The liver measures 14.3 cm and is grossly unremarkable and free of any focal lesions. GALLBLADDER: Status post cholecystectomy without evidence of fluid collection of the gallbladder fossa. BILE DUCTS: No evidence of intra or extrahepatic biliary dilatation is identified; the common bile duct measures 0.2 cm. PANCREAS: The visualized pancreas is unremarkable in appearance. RIGHT KIDNEY: The right kidney measures 9.7 cm in length. The renal cortical echogenicity and thickness are within normal limit. There is a 4 mm area of increased echogenicity at the interpolar region of the right kidney, as seen on image 59 with twinkling artifact suggesting nephrolithiasis. Procedure Note Osbaldo Ta MD - 12/05/2024 Interpreted By: Osbaldo Ta, Eugene Amin STUDY: US RIGHT UPPER QUADRANT; 12/05/2024 4:42 pm INDICATION: Signs/Symptoms:RUQ pain. COMPARISON: None. ACCESSION NUMBER(S): [id number] ORDERING CLINICIAN: FABRIZIO PATEL TECHNIQUE: Multiple images of the right upper quadrant were obtained. FINDINGS: LIVER: The liver measures 14.3 cm and is grossly unremarkable and free of any focal lesions. GALLBLADDER: Status post cholecystectomy without evidence of fluid collection of the gallbladder fossa. BILE DUCTS: No evidence of intra or extrahepatic biliary dilatation is identified; the common bile duct measures 0.2 cm. PANCREAS: The visualized pancreas is unremarkable in appearance. RIGHT KIDNEY: The right kidney measures 9.7 cm in length. The renal cortical echogenicity and thickness are within normal limit. There is a 4 mm area of increased echogenicity at the interpolar region of the right kidney, as seen on image 59 with twinkling artifact suggesting nephrolithiasis. IMPRESSION: 1. Status post cholecystectomy. 2. Nonobstructing right-sided nephrolithiasis. No hydronephrosis. I personally reviewed the images/study and I agree with the findings as stated by Brennan Paniagua MD, PGY-3 this study was interpreted at [facility], [place], [place]. MACRO: None Signed by: Osbaldo Ta 12/05/2024 5:29 PM Dictation workstation: [id number] us Fabrizio Patel DO IMG US PROCEDURES Final Result * POCT , urine (12/05/2024 3:58 PM EDT) Preg Test, Ur Negative Negative Urine 12/05/2024 3:58 PM EDT us Fabrizio Patel DO POINT OF CARE TEST ENTER/EDIT O RDERABLES Final Result * (ABNORMAL) Urinalysis Microscopic (12/05/2024 3:52 PM EDT) WBC, Urine 1-5 1-5, NONE /HPF 12/05/2024 4:15 PM EDT [facility] RBC, Urine >20(A) NONE, 1-2, 3-5 /HPF 12/05/2024 4:15 PM EDT [facility] Squamous Epithelial Cells, Urine 1-9 (SPARSE) Reference range not established. /HPF 12/05/2024 4:15 PM EDT [facility] Urine Urine specimen / Unknown 12/05/2024 3:52 PM EDT 12/05/2024 4:05 PM EDT us Fabrizio Patel DO LAB URINE ORDERABLES Final Resu lt Performing Organization Address [facility] Co de Phone Number [facility] [address] [place] [phone] * Extra Urine Purdy Tube (12/05/2024 3:52 PM EDT) Pathologist [facility] Extra Tube 12/06/2024 8:2 5 AM EDT [facility] Urine Urine specimen / Unknown 12/05/2024 3:52 PM EDT 12/05/2024 4:05 PM EDT us Fabrizio M DO LAB URINE ORDERABLES Final Resu lt Performing Organization Address City/[facility] Co de Phone Number [facility] [id number] [place] [phone] * (ABNORMAL) Urinalysis with Reflex Culture (12/05/2024 3:52 PM EDT) Color, Urine Yellow Light-Yello w, Yellow, Dark-Yellow 12/05/2024 4:15 PM EDT [facility] Appearance, Urine Clear Clear 025 4:15 PM EDT [facility] Specific [place], Urine 1.034 1.005 - 1.035 12/05/2024 4:15 PM EDT [facility] pH, Urine 5.5 5.0, 5.5, 6.0, 6.5, 7.0, 7.5, 8.0 12/05/2024 4:15 PM EDT [facility] Protein, Urine 30 (1+)(A) NEGATIVE, 10 (TRACE), 20 (TRACE) mg/dL 12/05/2024 4:15 PM EDT [facility] Glucose, Urine Normal Normal mg/dL 12/05/2024 4:15 PM EDT [facility] LAB Blood, Urine 1.0 (3+)(A) NEGATIVE mg/dL 12/05/2024 4:15 PM EDT [facility] Ketones, Urine 100 (3+)(A) NEGATIVE mg/dL 12/05/2024 4:15 PM EDT [facility] Bilirubin, Urine NEGATIVE NEGATIVE mg/dL 12/05/2024 4:15 PM EDT [facility] Urobilinogen, Urine 2 (1+)(A) Normal mg/dL 12/05/2024 4:15 PM EDT [facility] Comment: Due to a manufacturing issue, low positive urobilinogen results may be falsely positive. Correlate with urine bilirubin and additional clinical/laboratory findings to assess the risk of hemolytic anemia or liver disease. If clinically indicated, repeat testing with an alternate method is available by contacting the laboratory within 24 hours. Some pigments and medications may cause a false positive urobilinogen. Nitrite, Urine NEGATIVE NEGATIVE 12/05/2024 4:15 PM EDT [facility] Leukocyte Esterase, Urine NEGATIVE NEGATIVE 12/05/2024 4:15 PM EDT [facility] Urine Urine specimen / Unknown 12/05/2024 3:52 PM EDT 12/05/2024 4:05 PM EDT Fabrizio Patel DO LAB URINE ORDERABLES Final Resu lt Performing Organization Address [facility] Co de Phone Number [facility] [address] [place] [phone] * Magnesium (12/05/2024 1:58 PM EDT) [facility] Magnesium 2.27 1.60 - 2.40 mg/dL LAB CHEMISTRY METHOD 12/05/2024 4:37 PM EDT [facility] Blood Venous blood specimen / Unknown Venipuncture / Unknown 12/05/2024 1:58 PM EDT 12/05/2024 2:59 PM EDT Fabrizio Paetl LAB BLOOD ORDERABLES Final Resu lt Performing Organization Address [facility] de Phone Number [facility] [address] [place] [phone] * Lipase (12/05/2024 1:58 PM EDT) [facility] Lipase 12 9 - 82 U/L LAB CHEMISTRY METHOD 12/05/2024 3:35 PM EDT [facility] Blood Venous blood specimen / Unknown Venipuncture / Unknown 12/05/2024 1:58 PM EDT 12/05/2024 2:59 PM EDT Narrative [facility] - 12/05/2024 3:35 PM EDT Venipuncture immediately after or during the administration of Metamizole may lead to falsely low results. Testing should be performed immediately prior to Metamizole dosing. Tramaine Fuentes MD LAB BLOOD ORDERABLES Final Result Performing Organization Address [facility] Co de Phone Number [facility] [address] [place] [phone] * (ABNORMAL) Comprehensive metabolic panel (12/05/2024 1:58 PM EDT) [facility] Glucose 87 74 - 99 mg/dL LAB CHEMISTRY METHOD 12/05/2024 3:34 PM EDT [facility] Sodium 143 136 - 145 mmol/L LAB CHEMISTRY METHOD 12/05/2024 3:34 PM EDT [facility] Potassium 3.3(L) 3.5 - 5.3 mmol/L LAB CHEMISTRY METHOD 12/05/2024 3:34 PM EDT [facility] Chloride 106 98 - 107 mmol/L LAB CHEMISTRY METHOD 12/05/2024 3:34 PM EDT [facility] Bicarbonate 24 21 - 32 mmol/L LAB CHEMISTRY METHOD 12/05/2024 3:34 PM EDT [facility] Anion Gap 16 10 - 20 mmol/L LAB CHEMISTRY METHOD 12/05/2024 3:34 PM EDT [facility] Urea Nitrogen 18 6 - 23 mg/dL LAB CHEMISTRY METHOD 12/05/2024 3:34 PM EDT [facility] Creatinine 0.69 0.50 - 1.05 mg/dL LAB CHEMISTRY METHOD 12/05/2024 3:34 PM EDT [facility] eGFR >90 >60 mL/min/1. 73m*2 LAB CHEMISTRY METHOD 12/05/2024 3:34 PM EDT [facility] Comment: Calculations of estimated GFR are performed using the 2020 CKD-EPI Study Refit equation without the race variable for the IDMS-Traceable creatinine methods. https://jasn.asnjournals.org/content//ASN.8299871348 Calcium 9.9 8.6 - 10.6 mg/dL LAB CHEMISTRY METHOD 12/05/2024 3:34 PM EDT [facility] Albumin 5.1(H) 3.4 - 5.0 g/dL LAB CHEMISTRY METHOD 12/05/2024 3:34 PM EDT [facility] Alkaline Phosphatase 70 33 - 110 U/L LAB CHEMISTRY METHOD 12/05/2024 3:34 PM EDT [facility] Total Protein 8.3(H) 6.4 - 8.2 g/dL LAB CHEMISTRY METHOD 12/05/2024 3:34 PM EDT [facility] AST 20 9 - 39 U/L LAB CHEMISTRY METHOD 12/05/2024 3:34 PM EDT [facility] Bilirubin, Total 0.6 0.0 - 1.2 mg/dL LAB CHEMISTRY METHOD 12/05/2024 3:34 PM EDT [facility] ALT 23 7 - 45 U/L LAB CHEMISTRY METHOD 12/05/2024 3:34 PM EDT [facility] Comment:Patients treated wit h Sulfasalazine may generate falsely decreased results for ALT. Blood Venous blood specimen / Unknown Venipuncture / Unknown 12/05/2024 1:58 PM EDT 12/05/2024 2:59 PM EDT us Tramaine Fuentes MD LAB BLOOD ORDERABLES Final Result [facility] [address] [address] [place] [phone] * CBC and Auto Differential (12/05/2024 1:58 PM EDT) WBC 8.2 4.4 - 11.3 x10*3/uL LAB HEMATOLOGY METHOD 12/05/2024 3:07 PM EDT [facility] nRBC 0.0 0.0 - 0.0 /100 WBCs LAB HEMATOLOGY METHOD 12/05/2024 3:07 PM EDT [facility] RBC 4.84 4.00 - 5.20 x10*6/uL LAB HEMATOLOGY METHOD 12/05/2024 3:07 PM EDT [facility] Hemoglobin 13.6 12.0 - 16.0 g/dL LAB HEMATOLOGY METHOD 12/05/2024 3:07 PM EDT [facility] Hematocrit 39.1 36.0 - 46.0 % LAB HEMATOLOGY METHOD 12/05/2024 3:07 PM EDT [facility] MCV 81 80 - 100 fL LAB HEMATOLOGY METHOD 12/05/2024 3:07 PM EDT [facility] MCH 28.1 26.0 - 34.0 pg LAB HEMATOLOGY METHOD 12/05/2024 3:07 PM EDT [facility] MCHC 34.8 32.0 - 36.0 g/dL LAB HEMATOLOGY METHOD 12/05/2024 3:07 PM EDT [facility] RDW 11.9 11.5 - 14.5 % LAB HEMATOLOGY METHOD 12/05/2024 3:07 PM EDT [facility] Platelets 243 150 - 450 x10*3/uL LAB HEMATOLOGY METHOD 12/05/2024 3:07 PM EDT [facility] Neutrophils % 72.3 40.0 - 80.0 % LAB HEMATOLOGY METHOD 12/05/2024 3:07 PM EDT [facility] Immature Granulocytes %, Automated 0.2 0.0 - 0.9 % LAB HEMATOLOGY METHOD 12/05/2024 3:07 PM EDT [facility] Comment:Immature Granulocyte Count (IG) includes promyelocytes, myelocytes and metamyelocytes but does not include bands. Percent differential counts (%) should be interpreted in the context of the absolute cell counts (cells/UL). Lymphocytes % 18.3 13.0 - 44.0 % LAB HEMATOLOGY METHOD 12/05/2024 3:07 PM EDT [facility] Monocytes % 8.4 2.0 - 10.0 % LAB HEMATOLOGY METHOD 12/05/2024 3:07 PM EDT [facility] Eosinophils % 0.2 0.0 - 6.0 % LAB HEMATOLOGY METHOD 12/05/2024 3:07 PM EDT [facility] Basophils % 0.6 0.0 - 2.0 % LAB HEMATOLOGY METHOD 12/05/2024 3:07 PM EDT [facility] Neutrophils Absolute 5.93 1.20 - 7.70 x10*3/uL LAB HEMATOLOGY METHOD 12/05/2024 3:07 PM EDT [facility] Comment:Percent differential counts (%) should be interpreted in the context of the absolute cell counts (cells/uL). Immature Granulocytes Absolute, Automated 0.02 0.00 - 0.70 x10*3/uL LAB HEMATOLOGY METHOD 12/05/2024 3:07 PM EDT [facility] Lymphocytes Absolute 1.50 1.20 - 4.80 x10*3/uL LAB HEMATOLOGY METHOD 12/05/2024 3:07 PM EDT [facility] Monocytes Absolute 0.69 0.10 - 1.00 x10*3/uL LAB HEMATOLOGY METHOD 12/05/2024 3:07 PM EDT [facility] Eosinophils Absolute 0.02 0.00 - 0.70 x10*3/uL LAB HEMATOLOGY METHOD 12/05/2024 3:07 PM EDT [facility] Basophils Absolute 0.05 0.00 - 0.10 x10*3/uL LAB HEMATOLOGY METHOD 12/05/2024 3:07 PM EDT [facility] Blood Venous blood specimen / Unknown Venipuncture / Unknown 12/05/2024 1:58 PM EDT 12/05/2024 3:00 PM EDT us Tramaine Fuentes MD LAB BLOOD ORDERABLES Final Result [facility] [address] [facility] [address] [place] [address] documented in this encounter Visit Diagnoses Diagnosis Abdominal pain, epigastric- Primary Abdominal pain, epigastric Nausea Nausea alone Hypokalemia Hypopotassemia documented in this encounter Admitting Diagnoses Diagnosis Abdominal pain, epigastric documented in this encounter Administered Medications Inactive Administered Medications - up to 3 most recent administrations Medication Order MAR Action Action Date Dose Rate Site acetaminophen (Tylenol) tablet 975 mg 975 mg, oral, Every 6 hours PRN, pain mild (1-3), first line, pain mild (1-3), second line, Starting on 12/06/24 at 1816, If ordered PRN for pain, nurse is permitted to administer this medication for higher pain scores based on patient preference? Yes Given 12/08/2024 6:33 PM EDT 975 mg alum-mag hydroxide-simeth (Mylanta) 200-200-20 mg/5 mL oral suspension 30 mL 30 mL, oral, 2 times daily PRN, indigestion, heartburn, Starting on 12/08/24 at 0937 dicyclomine (Bentyl) capsule 10 mg 10 mg, oral, 4 times daily PRN, abdominal discomfort, Starting on 12/08/24 at 0941 Given 12/08/2024 6:33 PM EDT 10 mg Given 12/08/2024 1:03 PM EDT 10 mg famotidine PF (Pepcid) injection 20 mg 20 mg, intravenous, Administer over 2 Minutes, Once, On Ela 12/05/24 at 1920, For 1 dose Given 12/05/2024 7:43 PM EDT 20 mg HYDROmorphone (Dilaudid) injection 0.2 mg 0.2 mg, intravenous, Once, On Sat /20/25 at 0910, For 1 dose Given 12/07/2024 9:15 AM EDT 0.2 mg HYDROmorphone (Dilaudid) injection 0.5 mg 0.5 mg, intravenous, Every 4 hours PRN, pain severe (7-10), first line, Starting on Mon12/06/24 at 0707 Given 12/06/2024 11:46 AM EDT 0.5 mg Given 12/06/2024 7:38 AM EDT 0.5 mg HYDROmorphone (Dilaudid) injection 0.5 mg 0.5 mg, intravenous, Once, On Mon12/06/24 at 1425, For 1 dose Given 12/06/2024 2:37 PM EDT 0.5 mg HYDROmorphone (Dilaudid) injection 0.5 mg 0.5 mg, intravenous, Every 4 hours PRN, pain severe (7-10), first line, Starting on Mon12/06/24 at 1816 Given 12/07/2024 4:44 PM EDT 0.5 mg Given 12/07/2024 12:28 PM EDT 0.5 mg Given 12/07/2024 6:06 AM EDT 0.5 mg HYDROmorphone (Dilaudid) injection 0.5 mg 0.5 mg, intravenous, Once, On Mon12/08/24 at 0010, For 1 dose Given 12/08/2024 12:25 AM EDT 0.5 mg HYDROmorphone (Dilaudid) injection 0.5 mg 0.5 mg, intravenous, Once, On Mon12/09/24 at 0320, For 1 dose Given 12/09/2024 3:52 AM EDT 0.5 mg HYDROmorphone (Dilaudid) injection 1 mg 1 mg, intravenous, Once, On Ela 12/05/24 at 1705, For 1 dose Given 12/05/2024 5:33 PM EDT 1 mg HYDROmorphone (Dilaudid) injection 1 mg 1 mg, intravenous, Once, On Ela 12/05/24 at 1920, For 1 dose Given 12/05/2024 7:43 PM EDT 1 mg HYDROmorphone (Dilaudid) injection 1 mg 1 mg, intravenous, Once, On Ela 12/05/24 at 2250, For 1 dose Given 12/05/2024 11:11 PM EDT 1 mg HYDROmorphone (Dilaudid) injection 1 mg 1 mg, intravenous, Once, On Mon12/06/24 at 0415, For 1 dose Given 12/06/2024 4:22 AM EDT 1 mg HYDROmorphone (Dilaudid) tablet 2 mg 2 mg, oral, Every 6 hours PRN, pain severe (7-10), first line, Starting on Mon12/09/24 at 0316, If ordered PRN for pain, nurse is permitted to administer this medication for higher pain scores based on patient preference? Yes iohexol (OMNIPaque) 350 mg iodine/mL solution 75 mL 75 mL, intravenous, Once in imaging, Starting on Ela 12/05/24 at 1720, For 1 dose Given 12/05/2024 5:24 PM EDT 75 mL ketorolac (Toradol) injection 15 mg 15 mg, intravenous, Once, On Ela 12/05/24 at 1705, For 1 dose Given 12/05/2024 5:33 PM EDT 15 mg ketorolac (Toradol) injection 15 mg 15 mg, intravenous, Once, On [place] 12/08/24 at 1150, For 1 dose Given 12/08/2024 1:03 PM EDT 15 mg ketorolac (Toradol) injection 15 mg 15 mg, intravenous, Once, On Mon12/08/24 at 1820, For 1 dose Given 12/08/2024 6:33 PM EDT 15 mg ketorolac (Toradol) injection 30 mg 30 mg, intravenous, Once, On 12/07/24 at 0945, For 1 dose Given 12/07/2024 10:12 AM EDT 30 mg lactated Ringer's infusion 75 mL/hr, intravenous, Continuous, Starting on Mon12/06/24 at 0710, For 1 day New Bag 12/06/2024 7:33 AM EDT 75 mL/hr 75 mL/hr lidocaine (Xylocaine) 2 % mouth solution 15 mL 15 mL, oral, Once, On 12/08/24 at 0940, For 1 dose Given 12/08/2024 10:43 AM EDT 15 mL methylPREDNISolone sod succinate (SOLU-Medrol) injection 125 mg 125 mg, intravenous, Once, On Ela 12/05/24 at 1600, For 1 dose Given 12/05/2024 4:02 PM EDT 125 mg metoclopramide (Reglan) injection 10 mg 10 mg, intravenous, Once, On Mon12/06/24 at 2030, For 1 dose Given 12/07/2024 1:41 AM EDT 10 mg metoclopramide (Reglan) injection 10 mg 10 mg, intravenous, Once, On Mon12/08/24 at 1150, For 1 dose Given 12/08/2024 1:03 PM EDT 10 mg morphine injection 4 mg 4 mg, intravenous, Once, On Ela 12/05/24 at 1535, For 1 dose Given 12/05/2024 3:41 PM EDT 4 mg ondansetron (Zofran) injection 4 mg 4 mg, intravenous, Once, On Ela 12/05/24 at 1535, For 1 dose, When administering via IV Push, administer over 3-5 minutes. Given 12/05/2024 3:41 PM EDT 4 mg ondansetron (Zofran) injection 4 mg 4 mg, intravenous, Once, On Ela 12/05/24 at 1920, For 1 dose, When administering via IV Push, administer over 3-5 minutes. Given 12/05/2024 7:43 PM EDT 4 mg ondansetron (Zofran) injection 4 mg 4 mg, intravenous, Every 6 hours PRN, nausea/vomiting, first line, Starting on Mon12/06/24 at 0707, When administering via IV Push, administer over 3-5 minutes. Given 12/06/2024 7:38 AM EDT 4 mg ondansetron (Zofran) injection 4 mg 4 mg, intravenous, Every 4 hours PRN, nausea/vomiting, first line, Starting on Mon12/07/24 at 0858, Administer IV if patient unable to take oral tablet. When administering via IV Push, administer over 3-5 minutes. Given 12/07/2024 4:48 PM EDT 4 mg Given 12/07/2024 9:15 AM EDT 4 mg ondansetron ODT (Zofran-ODT) disintegrating tablet 4 mg 4 mg, oral, Once, On Mon12/06/24 at 1440, For 1 dose Given 12/06/2024 3:14 PM EDT 4 mg ondansetron ODT (Zofran-ODT) disintegrating tablet 4 mg 4 mg, oral, Every 4 hours PRN, nausea/vomiting, first line, Starting on 12/07/24 at 0858, 1st Line. Patient should allow tablet to dissolve on tongue. Do not remove from blister pack until just before administering. If inadequate response within 60 minutes, proceed to next-line agent for same PRN reason or contact provider if no further options ordered. Given 12/09/2024 3 :16 AM EDT 4 mg Given 12/08/2024 6:47 PM EDT 4 mg Given 12/07/2024 9:03 PM EDT 4 mg oxyCODONE (Roxicodone) immediate release tablet 5 mg 5 mg, oral, Every 4 hours PRN, pain severe (7-10), first line, pain moderate (4-6), second line, Starting on 12/07/24 at 1722, If ordered PRN for pain, nurse is permitted to administer this medication for higher pain scores based on patient preference? Yes, Indications: painIndications:pain Given 12/08/2024 8:26 PM EDT 5 mg Given 12/08/2024 3:20 PM EDT 5 mg Given 12/08/2024 11:07 AM EDT 5 mg pantoprazole (Protonix) injection 40 mg 40 mg, intravenous, 2 times daily, First dose on Mon12/08/24 at 0940, Reconstitute each 40 mg vial with 10 mL NS to make 4 mg/mL solution. Given 12/08/2024 8:26 PM EDT 40 mg Given 12/08/2024 10:43 AM EDT 40 mg potassium chloride 20 mEq in sterile water for injection 100 mL 20 mEq, intravenous, at 50 mL/hr, Administer over 2 Hours, Once, On Mon12/06/24 at 1820, For 1 dose, Via peripheral line New Bag 12/06/2024 6:56 PM EDT 20 mEq 50 mL/hr potassium chloride 20 mEq in sterile water for injection 100 mL 20 mEq, intravenous, at 50 mL/hr, Administer over 2 Hours, Every 2 hours, First dose on Mon12/08/24 at 1150, For 2 doses, Total dose is 40 mEq via peripheral line. New Bag 12/08/2024 3:21 PM EDT 20 mEq 50 mL/ hr New Bag 12/08/2024 1:03 PM EDT 20 mEq 50 mL/hr prochlorperazine (Compazine) injection 5 mg 5 mg, intravenous, Once, On Ela 12/05/24 at 2250, For 1 dose Given 12/05/2024 11:12 PM EDT 5 mg documented in this encounter Active and Recently Administered Medications Times are shown in EDT. Scheduled Medication Order 12/07/2024 12/08/2024 12/09/2024 HYDROmorphone (Dilaudid) injection 0.2 mg (COMPLETED) 0.2 mg, intravenous, Once, On 12/07/24 at 0910, For 1 dose 0915 (Given - Provider: Katty Craig RN) HYDROmorphone (Dilaudid) injection 0.5 mg (COMPLETED) 0.5 mg, intravenous, Once, On 12/08/24 at 0010, For 1 dose 0025 (Given - Provider: Yola Pack RN) HYDROmorphone (Dilaudid) injection 0.5 mg (COMPLETED) 0.5 mg, intravenous, Once, On 12/09/24 at 0320, For 1 dose 0352 (Given - Provid er: Jose Raul Sahu RN) ketorolac (Toradol) injection 15 mg (COMPLETED) 15 mg, intravenous, Once, On 12/08/24 at 1150, For 1 dose 1303 (Given - Provider: Costa Chow RN) ketorolac (Toradol) injection 15 mg (COMPLETED) 15 mg, intravenous, Once, On 12/08/24 at 1820, For 1 dose 1833 (Given - Provider: Costa Chow RN) ketorolac (Toradol) injection 30 mg (COMPLETED) 30 mg, intravenous, Once, On 12/07/24 at 0945, For 1 dose 1012 (Given - Provider: Katty Craig RN) lidocaine (Xylocaine) 2 % mouth solution 15 mL (COMPLETED) 15 mL, oral, Once, On 12/08/24 at 0940, For 1 dose 1043 (Given - Provider: Costa Chow RN) metoclopramide (Reglan) injection 10 mg (COMPLETED) 10 mg, intravenous, Once, On Mon12/06/24 at 2030, For 1 dose 0141 (Given - Provider: Taye Wayne RN - Comment: IV access) metoclopramide (Reglan) injection 10 mg (COMPLETED) 10 mg, intravenous, Once, On 12/08/24 at 1150, For 1 dose 1303 (Given - Provider: Costa Chow RN) pantoprazole (Protonix) injection 40 mg 40 mg, intravenous, 2 times daily, First dose on Mon12/08/24 at 0940, Reconstitute each 40 mg vial with 10 mL NS to make 4 mg/mL solution. 1043 (Given - Provider: Costa Chow RN)2026 (Given - Provider: Jose Raul Sahu RN) 0900 (Canceled Entry - Provider: Automatic Discharge Provider - Comment: Automatically canceled at discontinue of medication order) potassium chloride 20 mEq in sterile water for injection 100 mL (COMPLETED) 20 mEq, intravenous, at 50 mL/hr, Administer over 2 Hours, Every 2 hours, First dose on Mon12/08/24 at 1150, For 2 doses, Total dose is 40 mEq via peripheral line. 1303 (New Bag - Provider: Costa Chow RN)1521 (New Bag - Provider: Costa Chow RN)1606 (Stopped - Provider: Costa Chow RN)1734 (Stopped - Provider: Costa Chow RN) PRN Medication Order 12/07/2024 12/08/2024 12/09/2024 acetaminophen (Tylenol) tablet 975 mg 975 mg, oral, Every 6 hours PRN, pain mild (1-3), first line, pain mild (1-3), second line, Starting on Mon12/06/24 at 1816, If ordered PRN for pain, nurse is permitted to administer this medication for higher pain scores based on patient preference? Yes 1833 (Given - Provider: Costa Chow RN) alum-mag hydroxide-simeth (Mylanta) 200-200-20 mg/5 mL oral suspension 30 mL 30 mL, oral, 2 times daily PRN, indigestion, heartburn, Starting on Mon12/08/24 at 0937 dicyclomine (Bentyl) capsule 10 mg 10 mg, oral, 4 times daily PRN, abdominal discomfort, Starting on Mon12/08/24 at 0941 1303 (Given - Provider: Costa Chow RN)1833 (Given - Provider: Costa Chow RN) HYDROmorphone (Dilaudid) injection 0.5 mg (CANCELED) 0.5 mg, intravenous, Every 4 hours PRN, pain severe (7-10), first line, Starting on Mon12/06/24 at 1816 0140 (Given - Provider: Taye Wayne RN)0606 (Given - Provider: Taye Wayne RN)1228 (Given - Provider: Katty Craig RN)1644 (Given - Provider: Katty Craig RN) HYDROmorphone (Dilaudid) tablet 2 mg 2 mg, oral, Every 6 hours PRN, pain severe (7-10), first line, Starting on 12/09/24 at 0316, If ordered PRN for pain, nurse is permitted to administer this medication for higher pain scores based on patient preference? Yes ondansetron (Zofran) injection 4 mg (CANCELED)(Linked Group 1) 4 mg, intravenous, Every 4 hours PRN, nausea/vomiting, first line, Starting on 12/07/24 at 0858, Administer IV if patient unable to take oral tablet. When administering via IV Push, administer over 3-5 minutes. 0915 (Given - Provider: Katty Craig RN)1648 (Given - Provider: Katty Craig RN)2103 (See Alternative - Provider: Yola Pack RN) 1847 (See Alternative - Provider: Costa Chow RN) 0316 (See Alternative - Provider: Jose Raul Sahu RN) ondansetron ODT (Zofran-ODT) disintegrating tablet 4 mg(Linked Group 1) 4 mg, oral, Every 4 hours PRN, nausea/vomiting, first line, Starting on 12/07/24 at 0858, 1st Line. Patient should allow tablet to dissolve on tongue. Do not remove from blister pack until just before administering. If inadequate response within 60 minutes, proceed to next-line agent for same PRN reason or contact provider if no further options ordered. 0915 (See Alternative - Provider: Katty Craig RN)1648 (See Alternative - Provider: Katty Craig RN)2103 (Given - Provider: Yola Pack, MORE) 1847 (Given - Provider: Costa Chow, MORE) 0316 (Given - Provider: Jose Raul Shau, RN) oxyCODONE (Roxicodone) immediate release tablet 5 mg 5 mg, oral, Every 4 hours PRN, pain severe (7-10), first line, pain moderate (4-6), second line, Starting on 12/07/24 at 1722, If ordered PRN for pain, nurse is permitted to administer this medication for higher pain scores based on patient preference? Yes, Indications: pain 1809 (Given - Provider: Katty Craig RN)2243 (Given - Provider: Yola Pack RN) 0624 (Given - Provider: Yola Pack, MORE)1107 (Given - Provider: Costa Chow, MORE)1520 (Given - Provider: Costa Chow, MORE)2026 (Given - Provider: Jose Raul Sahu, RN) 0316 (Not Given - Provider: Jose Raul Sahu RN - Reason: Patient/family refused) Linked Groups Order Group 1: ondansetron ODT (Zofran-ODT) disintegrating tablet 4 mgJump to med 4 mg, oral, Every 4 hours PRN, nausea/vomiting, first line, Starting on 12/07/24 at 0858, 1st Line. Patient should allow tablet to dissolve on tongue. Do not remove from blister pack until just before administering. If inadequate response within 60 minutes, proceed to next-line agent for same PRN reason or contact provider if no further options ordered. Or ondansetron (Zofran) injection 4 mg (CANCELED)Jump to med 4 mg, intravenous, Every 4 hours PRN, nausea/vomiting, first line, Starting on 12/07/24 at 0858, Administer IV if patient unable to take oral tablet. When administering via IV Push, administer over 3-5 minutes. documented in this encounter Additional Health Concerns Infection Onset Date Last Indicated Resolved Time COVID-19 Rule-Out 12/06/2024 12/06/2024 12/06/2024 6:40 PM EDT Influenza Rule-out 12/06/2024 12/06/2024 6:40 PM EDT C. difficile Rule-Out 12/08/2024 12/08/20242024 8:42 PM EDT Gastrointestinal Rule-Out 12/08/2024 12/08/2024 8:40 PM EDT documented as of this encounter Care Teams Glass Production Machine Operator Relationship Specialty Start Date End Date Kami Olvera MD [address] [place] [address] PCP - General 03/20/99 documented as of this encounter
--- OUTSIDE RECORDS SUMMARY | 2024-12-06 18:45 | XMS_ITS | Encounter Summary ---
Author Organization [facility] Address [address] [place] [address] Phone Care Team Providers Care Stretcher And Drier Name Role Phone Kami Olvera MD Primary Care Provider [phone] Reason for Visit * Auth/Cert Specialty Diagnoses / Procedures Referred By Contac t Referred To Contact Diagnoses Abdominal pain, epig[place] [address] Department [place] [address] Phone: tel: fax: [facility] Emergency Medicine [id number] [place] [phone] Phone: tel: fax: Referral ID Status Reason Start Date Expiration Date Visits Re quested Visits Authorized [id number] 1 1 Encounter Details Date Type Department Care Team (Late st Contact Info) Description 12/06/2024 6:45 PM EDT Clinical Support [facility] Emergency Medicine [address] [place] [address] Social History Tobacco Use Types Packs/Day Years Used Date Smoking Tobacco: Never Assessed Comments Unknown Sex and Gender Information Value Date Recorded Sex Assigned at Not on file Legal Sex Female 6:57 PM EST Gender Identity Not on file Sexual Orientation Not on file documented as of this encounter Functional Status * Question Answer Date of Assessment Author BP 137/92 12/09/2024 6:19 AM EDT Jose Raul Reed RN Pulse 62 12/09/2024 6:19 AM EDT Jose Raul Reed RN * Ramón Scale Question Answer Date [...] 8:24 AM EDT Katty Craig RN * Stroke/TIA Swallow Screen Question Answer Date of Assessment Author Step 1: Level of Consciousness Pass 12/08/2024 9:35 AM EDT Costa Chow RN Step 2: [place] Thick Pass 12/08/2024 9:35 AM E Costa Springer RN Step 3: Water Pass 12/08/2024 9:35 AM EDT Costa Pisano RN * Stroke/TIA Swallow Screen Question Answer Date of Assessment Author Step 1: Level of Consciousness Pass 12/08/2024 9:35 AM EDT Costa Chow RN Step 2: [place] Thick Pass 12/08/2024 9:35 AM E Costa Springer RN Step 3: Water Pass 12/08/2024 9:35 AM EDT Costa Pisano RN documented as of this encounter Plan of Treatment Pending Results Name Type Priority Associated Diagnoses Date /Time ECG 12 lead ECG STAT 12/06/2024 6: 42 PM EDT documented as of this encounter Procedures Procedure Name Priority Date/Time Associated Diagnosis Comments ECG 12-LEAD STAT 12/06/2024 6:42 PM EDT Procedure Note - 12/06/2024 6:42 PM EDTThis note is in progress. Normal sinus rhythm Normal ECG No previous ECGs available documented in this encounter Visit Diagnoses Not on filedocumented in this encounter Care Teams Stretcher And Drier Relationship Specialty Start Date End Date Kami Olvera MD [address] [place] [address] PCP - General 03/20/99 documented as of this encounter
--- OUTSIDE RECORDS SUMMARY | 2024-12-07 09:00 | XMS_ITS | Encounter Summary ---
Author Organization [facility] Address [address] [place] [address] Phone Care Team Providers Care Pipe Fitter Marine Name Role Phone Kami Olvera MD Primary Care Provider [phone] Reason for Visit * Auth/Cert Specialty Diagnoses / Procedures Referred By Contac t Referred To Contact Diagnoses Abdominal pain, epigastric [place] [address] [address] [facility] Department of [place] [address] Phone: tel: fax: [facility] Emergency Medicine [id number] [place] [phone] Phone: tel: fax: Referral ID Status Reason Start Date Expiration Date Visits Re quested Visits Authorized [id number] 1 1 Encounter Details Date Type Department Care Team (Late st Contact Info) Description 12/07/2024 9:00 AM EDT Clinical Support [facility] Emergency Medicine [address] [place] [address] Social History Tobacco Use Types [...] AM EDT Costa Chow RN Step 2: [place] Thick Pass 12/08/2024 9:35 AM E Costa Springer RN Step 3: Water Pass 12/08/2024 9:35 AM EDT Costa Pisano RN * Stroke/TIA Swallow Screen Question Answer Date of Assessment Author Step 1: Level of Consciousness Pass 12/08/2024 9:35 AM EDT Csota Chow RN Step 2: [place] Thick Pass 12/08/2024 9:35 AM E Costa Springer RN Step 3: Water Pass 12/08/2024 9:35 AM EDT Costa Pisano RN documented as of this encounter Plan of Treatment Pending Results Name Type Priority Associated Diagnoses Date /Time ECG 12 lead ECG STAT 12/07/2024 8: 57 AM EDT documented as of this encounter Procedures Procedure Name Priority Date/Time Associated Diagnosis Comments ECG 12-LEAD STAT 12/07/2024 8:57 AM EDT Procedure Note - 12/07/2024 8:57 AM EDTThis note is in progress. Sinus rhythm with marked sinus arrhythmia Rightward axis Borderline ECG When compared with ECG of 06-DEC-2024 18:30, No significant change was found documented in this encounter Visit Diagnoses Not on filedocumented in this encounter Care Teams Pipe Fitter Marine Relationship Specialty Start Date End Date Kami Olvera MD [address] [place] [address] PCP - General 03/20/99 documented as of this encounter
--- OUTSIDE RECORDS SUMMARY | 2024-12-09 07:36 | XMS_ITS | Encounter Summary ---
Author Organization [facility] Address [address] [place] [address] Care Team Providers Care Plant Control Aide Name Role Phone Unavailable Primary Care Provider Unavailabl e Reason for Referral * Service Level Authorization (Routine) - Authorized Specialty Diagnoses / Procedures Referred By Beba romero Referred To Contact Gastroenterology Diagnoses Dyspepsia Chronic diarrhea Epigastric pain Procedures LVL 4 NEW PT, MODERATE MDM, MINIMUM OF 45 MINUTES LVL 4 EST PT, MODERATE MDM, MINIMUM OF 30 MINUTES Christina Tony MD [address] [place], [place] [id number] Phone: tel: fax: S GASTROENTEROLOGY [address] [place] [address] Phone: tel: Referral ID Status Reason Start Date Expiration Date V isits Requested Visits Authorized [id number] Authorized 12/13/2024 12/13/2025 3 3 Scheduling Instructions Please call the Gastroenterology Clinic at to schedule an appointment if one was not made for you today. Question Answer Reason for Referral: Pain-Abdomen [16] - Hospital discharge follow up Which GI clinic should the patient be scheduled in? General GI Clinic Comments No prior visits in Gastroenterology Reason for Visit * Reason Comments Abdominal pain Patient c/o abdomina l pain x5 days. Seen recently at but due to insurance reasons needed to come here per patient. * Auth/Cert (Routine) Specialty Diagnoses / Procedures Referred By Beba romero Referred To Contact Emergency Medicine Diagnoses Other disorders of bilirubin metabolism Other chronic pain Nausea with vomiting, unspecified Chronic abdominal pain Procedures N/A [facility] [address] [place] [phone] Phone: tel: [facility] [address] [place] [phone] Phone: tel: Referral ID Status Reason Start Date Expiration Date Visits Re quested Visits Authorized [id number] 3 3 Encounter Details Date Type Department Care Team (Late st Contact Info) Description 12/09/2024 7:36 AM EDT - 12/14/2024 6:41 PM EDT [facility] [address] [place] [id number] John Ramirez MD [address] [place] [id number] Radames Doan MD [address] [place] [phone] Rui Huerta MD [address] [place] [id number] Adolfo Rodriguez MD [address] [place] [phone] Desire Joel MD [address] [place] [phone] Costa Diaz MD [address] [place] [phone] Tigre Guevara MD [address] [place] [phone] Chrisitna Tony MD [address] [place] [phone] Dx: Chronic diarrhea (Primary Dx) Discharge Disposition: Discharge to Home Social History Tobacco Use Types Packs/Day Years Used Date Smoking Tobacco: Never Assessed [facility] Utilities Answer Date Recorded In the past 12 months has th e electric, gas, oil, or water company threatened to shut off services in your home? No 12/11/2024 Humiliation, Afraid, Rape, and Kick questionnair e Answer Date Recorded Fear of Current or Ex-Partner Not on file Within the last year, have y ou been humiliated or emotionally abused in other ways by your partner or ex-partner? No 12/11/2024 Physically Abused Not on file 12/11/2024 Sexually Abused Not on file 12/11/2024 Hunger Vital Sign Answer Date Recorded Within the past 12 months, y ou worried that your food would run out before you got the money to buy more. Never true 12/12/19 25 Ran Out of Food in the Last Year Not on file 12/11/2024 PRAPARE - Transportation Answer Date Re corded In the past 12 months, has l ack of transportation kept you from medical appointments or from getting medications? No 12/11/2024 Lack of Transportation (Non-Medical) Not on file 12/11/2024 Housing Stability Vital Sign Answer Andrade e Recorded In the last 12 months, was t here a time when you were not able to pay the mortgage or rent on time? No 12/11/2024 Number of Times Moved in the Last Year Not on fi le 12/11/2024 Homeless in the Last Year Not on file 2024 Utilities - Historical Answer Date Juan rded In the past 12 months has th e electric, gas, oil, or water company threatened to shut off services in your home? No 12/11/2024 Comments No Sex and Gender Information Value Date Recorded Sex Assigned at Not on file Legal Sex Female 10:04 PM EDT Gender Identity Not on file Sexual Orientation Not on file documented as of this encounter Last Filed Vital Signs Vital Sign Reading Time Taken Comments Blood Pressure 143/90 12/14/2024 3:28 PM EDT Pulse 104 12/14/2024 3:28 PM EDT Temperature 37 C (98.6 F) 12/14/2024 3:28 PM EDT Respiratory Rate 18 12/14/2024 3:28 PM EDT Oxygen Saturation 98% 12/14/2024 3:28 PM EDT Inhaled Oxygen Concentration - - Weight 63.5 kg (140 lb) 12/11/2024 11:43 AM EDT Height 170.2 cm (5' 7 ) 12/11/2024 11:43 AM EDT Body Mass Index 21.93 12/11/2024 11:43 AM EDT documented in this encounter Discharge Instructions * Discharge Instructions* Cj Lee MD - 12/09/2024 2:36 PM EDT A NOTE FROM YOUR DOCTOR You were admitted for endoscopic procedure with GI (Gastroenterologists) These were the main things that occurred during your hospital stay: Endoscopic procedure was performed, biopsies were taken You were treated for a headache You were given medications for your nausea and vomiting These are IMPORTANT CHANGES to your MEDICATIONS: Take the oral pain medications as prescribed and follow up with PCP to re- evaluate pain After discharge please: Follow up with your PCP Follow up with GI It is important that you follow up with your doctor(s) in the coming weeks. - if you do not hear from them or you need additional assistance (such as transport), please call our call center. If you feel like your illness/symptoms are worsening and need urgent help - do not wait until your follow up visit or your primary care physician appointment. - You can get same day medical attention at an urgent care center. - If you need more serious immediate care, please return to the Emergency Room. - If you need free transport to any of your future appointment, please call the [facility] ([phone]), THREE (3) days before your appointment. Thank you * Attachments The following attachments cannot be sent through Care Everywhere. * Urinary tract infections in adults (Swiss) * Abdominal pain (Swiss) * Nausea and vomiting in adults (Swiss) documented in this encounter Medications at Time of Discharge HYDROmorphone (DILAUDID) 2 MG tabletIndications:Ch ronic abdominal pain Take 1 Tablet by mouth every 4 hours as needed for up to 3 days. 15 Tablet 12/14/2024 ondansetron (ZOFRAN-ODT) 4 MG disintegrating tablet Take 1 Tablet by mouth every 8 hours as needed for Nausea. 12 Tablet 12/14/2024 HYDROmorphone (DILAUDID) 2 MG tablet Take 2 mg by mouth as needed for Pain. Venlafaxine HCl (EFFEXOR XR ORAL) Take 225 mg by mouth every morning. buPROPion (WELLBUTRIN) 100 MG tablet Take 100 mg by mouth 2 times daily. zolpidem (AMBIEN) 10 MG tablet Take 10 mg by mouth at bedtime as needed for Sleep. linaclotide (Linzess) 72 MCG CAPS capsule Take 72 mcg by mouth daily. documented as of this encounter Progress Notes * Silviano Ewing MD - 12/14/2024 8:42 AM EDT Images from the original note were not included. [place] [id number] FAMILY MEDICINE INPATIENT SERVICE PROGRESS NOTE Negro Sabillon 29 year old 140 lbs MRN/Room: [id number]/AC3-707/2 : 1995 Admit Date: 12/09/2024 Chief Complaint Patient presents with Abdominal pain Patient c/o abdominal pain x5 days. Seen recently at but due to insurance reasons needed to comehere per patient. Hospital Course: Negro Sabillon is a 29 year old female with a past medical history of Hodgkins lymphoma (diagnosed in July 2021) s/p chemo, nonepileptic seizures, depression, Eduard-en-Y hepaticojejunostomy (Dr. Clarke), CBD stricture s/p cholecystectomy (multiple stents), resection of extrahepatic bile duct, PEG-J, migraines, serotonin syndrome s/p anesthesia, history of C. difficile who presents for abdominal pain and weight loss In the ED, patient was hypertensive to 164/93, afebrile, saturating well on room air, in no acute distress. Physical exam performed by ED provider significant for subjective hypovolemia, RUQ and epigastric abdominal tenderness. Labs notable for urine leukocyte esterase/WBCs, total bilirubin 1.2 from 0.6. Xray multiple nonspecific gaseously prominent loops of bowel are present throughout the abdomen with a presumed surgical anastomosis in the right hemiabdomen. Patient was given IV fluids, zofran, dilaudid and started on ceftriaxone. Patient was recommended for admission to [facility] for medical management. Upper and lower endoscopy completed without complication. No signs of anastomosis ulcers or other inflammatory bowel disease. No sign of biliary complications. Biopsies taken from multiple sites, pathology sent for microscopic colitis. Physician called to bedside overnight on 12/12/2024 for 10/10 abdominal pain, nausea, vomiting. Patient was given increased dose of Dilaudid. During the night of 12/13/2024, rapid response team was called to bedside for unresponsiveness, severe range blood pressures to 180s systolic. Not responsive to voice or painful stimuli. Patient awokewith right-sided facial droop, right- sided hemianopia. On transport to CT suite, 5-10 seconds seizure-like activity was witnessed. NIH total 11. SUBJECTIVE: Today's Interval: Admitted on 12/09/2024 Length of stay: 3 day(s) Overnight Events: No acute events Physician called overnight for 10/10 abdominal pain Physical exam reassuring Increased pain regimen to Dilaudid 4 mg every 6 hours as needed Pt says because of abdo pain she has not been eating. Pt says that whenever she doesn't eat she gets right-sided migraine Interval Specialist Recs: IP GASTROENTEROLOGY CONSULT Gastroenterology Etiology is unclear at this time but appears acute on chronic and likely multifactorial. Endoscopically no significant findings. Pt is on chronic hydromorphone for chronic pain and may have componentof hyperalgesia and visceral hypersensitivity that may have been exacerbated post endoscopic. 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 Patient also reports has not had BM since her C-scope prep, so acute exacerbation can be 2/2 constipation that can be d/t sedation and uptitration of opioids. -Pt seen laying supine comfortably in bed. Abdominal exam benign, non- peritonitic, bowel sounds normoactive. Patient reports her pain is 7 out of 10 and attributes most pain d/t post emesis. In oupt setting, patient may benefit from neuromodulator therapy. She is already on effexor for migraines. May benefit from dose adjustment or trial TCA Avoid NSAIDs d/t GI anatomy to minimize anastomotic ulcers stop bentyl. Pt denies benefit from bentyl and can worsen constipation Since diarrhea has resolved, can hold off imodium at this time can increase zofran dose to 8mg Q6H pending Qtc. (Anti-emetics strategy below) f/u GI clinic. GI sent message to schedulers. scheduled APAP if has severe worsening abdominal pain, can consider CT A/P w/ IV and PO contrast. Can evaluate stool burden as well since has reported hx of overflow incontinence but unable to find reports suggesting this. For nausea, would suggest using staggered positioning of a multimodal antiemetic regimen including agenst such as: M1 - Scopolamine - transdermally, 1.5 mg every 72 hours 5-hydroxytryptamine (HT)-3 - Ondansetron, oral, IV, IM: 4 to 8 mg as a single dose; may repeat 4 to8 mg every 4 to 8 hours as needed D2 - ??Prochlorperazine 5 to 10 mg PO every six to eight hours, 5 to 10 mg IM or 2.5 to 10 mg IV every three to four hours, or 25 mg by rectal suppository every 12 hours PT/OT Patient is functionally appropriate for discharge home once medically cleared. No further Physical Therapy services recommended at this time. SCHEDULED I/P MEDS: cetirizine 10 mg Daily polyethylene glycol 17 g At Bedtime acetaminophen 1,000 mg q6h psyllium 1 Packet 2x Daily buPROPion 100 mg 2x Daily venlafaxine 225 mg Every morning PRN MEDS: HYDROmorphone 2 mg Q4H PRN ondansetron 4 mg Q6H PRN famotidine 20 mg Daily PRN IV MEDS: OBJECTIVE: Patient Vitals for the past 24 hrs: BP Temp Temp src Pulse Resp SpO2 O2 Device 12/13/24 2349 127/95 97.7 ??F (36.5 ??C) Oral 102 18 99 % Room air 12/13/24 1930 -- -- -- -- -- -- Room air 12/13/24 1906 160/97 -- -- 92 18 98 % -- 12/13/24 1900 162/109 -- -- 80 18 100 % Room air 12/13/24 1858 182/102 -- -- 86 17 100 % Room air 12/13/24 1856 166/105 -- -- 79 18 98 % -- 12/13/24 1854 173/101 -- -- 83 17 100 % -- 12/13/24 1852 180/103 -- -- 84 18 98 % -- 12/13/24 1850 162/92 -- -- 80 15 100 % Room air 12/13/24 1848 163/104 -- -- 77 18 99 % -- 12/13/24 1846 186/91 -- -- 81 18 98 % -- 12/13/24 1844 177/105 -- -- 81 18 99 % -- 12/13/24 1842 181/105 -- -- 90 -- 99 % -- 12/13/24 1840 187/98 -- -- -- -- 98 % Room air 12/13/24 1838 177/104 -- -- -- -- -- -- 12/13/24 1836 184/100 -- -- -- -- -- -- 12/13/24 1834 190/106 -- -- -- -- -- -- 12/13/24 1832 183/108 -- -- -- -- -- Room air 12/13/24 1554 154/99 99.2 ??F (37.3 ??C) Oral 88 18 99 % Room air 12/13/24 1217 -- 99 ??F (37.2 ??C) Oral -- -- -- -- 12/13/24 1020 144/93 -- -- 80 16 -- Room air Change in Weight: Current value is 140.0 lb (63.503 kg) on 12/11/2024 at 1143 0.0 lb (0.000 kg) from 140.0 lb (63.503 kg) on 12/09/2024 at 1206 (previous value) 0.0 lb (0.000 kg) from 140.0 lb (63.503 kg) on 12/09/2024 at 1206 (first value for this admission) Intake/Output Summary (Last 24 hours) at 12/14/2024 0842 Last data filed at 12/13/2024 1555 Gross per 24 hour Intake 600 ml Output -- Net 600 ml Physical Exam Abdominal: Palpations: Abdomen is soft. Tenderness: There is abdominal tenderness. Comments: Mild epigastric tenderness LABS/MICRO/CIWA: Labs CBC Unremarkable BMP Unremarkable Mg 2.3 Phos 3.7 INTERVAL IMAGING: Colonoscopy as above EKG: NA ASSESSMENT/PLAN: Negro Sabillon is a 29 year old female with a past medical history of Hodgkins lymphoma (diagnosed in July 2021) s/p chemo, nonepileptic seizures, depression, Eduard-en-Y hepaticojejunostomy (Dr. Clarke), CBD stricture s/p cholecystectomy (multiple stents), resection of extrahepatic bile duct, PEG-J, migraines, serotonin syndrome s/p anesthesia, history of C. difficile who presents for abdominal pain and weight loss ACUTE PROBLEMS: # Abdominal pain # C/f overflow diarrhea # Status post cholecystectomy # Status post Eduard-en-Y # Status post G-tube Upper and lower endoscopy overall very reassuring there is no acute pathologic abdominal pain. Concern for hyperalgesia given patient's inability to tolerate home analgesia regimen. Additional concern for no bowel movements since colonoscopy. PLAN: GI recommendations Follow up pathology results In oupt setting, patient may benefit from neuromodulator therapy. She is already on effexor for migraines. May benefit from dose adjustment or trial TCA Avoid NSAIDs d/t GI anatomy to minimize anastomotic ulcers stop bentyl. Pt denies benefit from bentyl and can worsen constipation Since diarrhea has resolved, can hold off imodium at this time can increase zofran dose to 8mg Q6H pending Qtc. (Anti-emetics strategy below) scheduled APAP if has severe worsening abdominal pain, can consider CT A/P w/ IV and PO contrast. Can evaluate stool burden as well since has reported hx of overflow incontinence but unable to find reports suggesting this. For nausea, would suggest using staggered positioning of a multimodal antiemetic regimen including agenst such as: Scopolamine - transdermally, 1.5 mg every 72 hours Ondansetron, oral, IV, IM: 4 to 8 mg as a single dose; may repeat 4 to 8 mg every 4 to 8 hours as needed Prochlorperazine 5 to 10 mg PO every six to eight hours, 5 to 10 mg IM or 2.5 to 10 mg IV every three to four hours, or 25 mg by rectal suppository every 12 hours GI will coordinate outpatient follow-up. Pending results, consider imodium PRN. If no improvement, consider empiric trial of cholecystyramine for bile silt diarrhea hold DVT PPX today Daily CBC, BMP, LFTs, Mag, phos PT/OT Patient is functionally appropriate for discharge home once medically cleared. No further Physical Therapy services recommended at this time. Pepcid 20 mg daily as needed Dilaudid 2 mg every 6 hours as needed, approximating home regimen Adding 1 mg IV Dilaudid for breakthrough pain Convert Tylenol to scheduled every 6 hours Discontinue Toradol in the setting of concern for anastomosis ulcer Reglan 10 mg IV every 6 hours as needed Zofran 4 mg IV every 6 hours as needed # Hypertensive readings Normotensive throughout the night and morning. PLAN: Vitals every 4 hours Low-dose amlodipine if pressures do not improve. # Pyuria # Nephrolithiasis Asymptomatic, no intervention indicated. CHRONIC PROBLEMS: # Mental health Wellbutrin 100 mg twice daily Ativan 1 mg nightly as needed Effexor XR 225 mg every morning PPX/MISC: DVT/PE Prophylaxis: [facility] GI Prophylaxis: Pepcid 20 mg daily Bowel Regimen: Psyllium, MiraLax Pain Control: Dilaudid, Tylenol Diet: Regular Fluids: P.o. as tolerated Code: Full Code Social: Extended Emergency Contact Information Primary Emergency Contact: DAREN SABILLON Mobile Relation: Mother Secondary Emergency Contact: TROY CURTIS Mobile Relation: Other Dispo: pending ability to tolerate oral intake without significant abdominal pain nausea or vomiting Anticipate discharge once above concerns are resolved. Outpatient Follow-up Recommendations: PCP, patient follows in [place] with non [facility] provider Gastroenterology to set up outpatient follow-up Plan is preliminary until discussed with/finalized by attending physician, Dr. Christina Truong MD Family Medicine PGY-1 Silviano Ewing MD Computer Engineering Technician, PGY-1 Team Pager: [phone] Cosigned by Christina Tony MD at 12/15/2024 10:36 PM EDT Associated attestation - Christina Tony MD - 12/15/2024 10:36 PM EDT Teaching Physician Note: I saw and evaluated the patient. I personally obtained the self and critical portions of the historyand physical exam. I reviewed the resident's documentation and discussed the patient with the resident. I agree with the resident's medical decision making as documented in the resident's note. Negro Sabillon is a 29 year old female with a past medical history of Hodgkins lymphoma (diagnosed in July 2021) s/p chemo, nonepileptic seizures, depression, Eduard-en-Y hepaticojejunostomy, CBD stricture s/p cholecystectomy (multiple stents), PEG-J, migraines, who presented for abdominal pain with nausea and diarrhea, now slowly improving. Pt s/p EGD and colonoscopy without significant findings, although biopsies still pending. Pt tolerating po intake, will discharge home with chronic pain regimen. Christina Tony MD * Silviano Ewing MD - 12/13/2024 11:14 PM EDT Images from the original note were not included. [place] [address] FAMILY MEDICINE INPATIENT SERVICE PROGRESS NOTE Negro Sabillon 29 year old 140 lbs MRN/Room: [id number]/AC3-707/2 : 1995 Admit Date: 12/09/2024 Chief Complaint Patient presents with Abdominal pain Patient c/o abdominal pain x5 days. Seen recently at but due to insurance reasons needed to comehere per patient. Hospital Course: Negro Sabillon is a 29 year old female with a past medical history of Hodgkins lymphoma (diagnosed in July 2021) s/p chemo, nonepileptic seizures, depression, Eduard-en-Y hepaticojejunostomy (Dr. Clarke), CBD stricture s/p cholecystectomy (multiple stents), resection of extrahepatic bile duct, PEG-J, migraines, serotonin syndrome s/p anesthesia, history of C. difficile who presents for abdominal pain and weight loss In the ED, patient was hypertensive to 164/93, afebrile, saturating well on room air, in no acute distress. Physical exam performed by ED provider significant for subjective hypovolemia, RUQ and epigastric abdominal tenderness. Labs notable for urine leukocyte esterase/WBCs, total bilirubin 1.2 from 0.6. Xray multiple nonspecific gaseously prominent loops of bowel are present throughout the abdomen with a presumed surgical anastomosis in the right hemiabdomen. Patient was given IV fluids, zofran, dilaudid and started on ceftriaxone. Patient was recommended for admission to [facility] for medical management. Upper and lower endoscopy completed without complication. No signs of anastomosis ulcers or other inflammatory bowel disease. No sign of biliary complications. Biopsies taken from multiple sites, pathology sent for microscopic colitis. Physician called to bedside overnight on 12/12/2024 for 10/10 abdominal pain, nausea, vomiting. Patient was given increased dose of Dilaudid. During the night of 12/13/2024, rapid response team was called to bedside for unresponsiveness, severe range blood pressures to 180s systolic. Not responsive to voice or painful stimuli. Patient awokewith right-sided facial droop, right- sided hemianopia. On transport to CT suite, 5-10 seconds seizure-like activity was witnessed. NIH total 11. SUBJECTIVE: Today's Interval: Admitted on 12/09/2024 Length of stay: 2 day(s) Rapid response team called for unresponsiveness and severe range blood pressures with systolics in the 180s Not responsive to voice or painful stimuli. Awoke with right-sided facial droop, right-sided hemianopia. Witnessed seizure-like activity for 5-10 seconds on transport to CT suite. 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 Recommend treatment of headache per primary team. If full consult is desired, please call tomorrow. SCHEDULED I/P MEDS: cetirizine 10 mg Daily naloxone polyethylene glycol 17 g At Bedtime acetaminophen 1,000 mg q6h psyllium 1 Packet 2x Daily buPROPion 100 mg 2x Daily venlafaxine 225 mg Every morning PRN MEDS: naloxone HYDROmorphone 2 mg Q4H PRN ondansetron 4 mg Q6H PRN famotidine 20 mg Daily PRN IV MEDS: OBJECTIVE: Patient Vitals for the past 24 hrs: BP Temp Temp src Pulse Resp SpO2 O2 Device 12/13/24 1930 -- -- -- -- -- -- Room air 12/13/24 1906 160/97 -- -- 92 18 98 % -- 12/13/24 1900 162/109 -- -- 80 18 100 % Room air 12/13/24 1858 182/102 -- -- 86 17 100 % Room air 12/13/24 1856 166/105 -- -- 79 18 98 % -- 12/13/24 1854 173/101 -- -- 83 17 100 % -- 12/13/24 1852 180/103 -- -- 84 18 98 % -- 12/13/24 1850 162/92 -- -- 80 15 100 % Room air 12/13/24 1848 163/104 -- -- 77 18 99 % -- 12/13/24 1846 186/91 -- -- 81 18 98 % -- 12/13/24 1844 177/105 -- -- 81 18 99 % -- 12/13/24 1842 181/105 -- -- 90 -- 99 % -- 12/13/24 1840 187/98 -- -- -- -- 98 % Room air 12/13/24 1838 177/104 -- -- -- -- -- -- 12/13/24 1836 184/100 -- -- -- -- -- -- 12/13/24 1834 190/106 -- -- -- -- -- -- 12/13/24 1832 183/108 -- -- -- -- -- Room air 12/13/24 1554 154/99 99.2 ??F (37.3 ??C) Oral 88 18 99 % Room air 12/13/24 1217 -- 99 ??F (37.2 ??C) Oral -- -- -- -- 12/13/24 1020 144/93 -- -- 80 16 -- Room air 12/13/24 0200 135/84 97.8 ??F (36.6 ??C) Oral 90 16 99 % Room air 12/13/24 0032 147/96 98.1 ??F (36.7 ??C) Oral 84 17 98 % Room air Change in Weight: Current value is 140.0 lb (63.503 kg) on 12/11/2024 at 1143 0.0 lb (0.000 kg) from 140.0 lb (63.503 kg) on 12/09/2024 at 1206 (previous value) 0.0 lb (0.000 kg) from 140.0 lb (63.503 kg) on 12/09/2024 at 1206 (first value for this admission) Intake/Output Summary (Last 24 hours) at 12/13/2024 2314 Last data filed at 12/13/2024 1555 Gross per 24 hour Intake 600 ml Output -- Net 600 ml Physical Exam Cardiovascular: Rate and Rhythm: Normal rate and regular rhythm. Heart sounds: Normal heart sounds. No murmur heard. No gallop. Pulmonary: Effort: Pulmonary effort is normal. No respiratory distress. Breath sounds: Normal breath sounds. No stridor. No wheezing. Abdominal: General: There is no distension. Palpations: Abdomen is soft. Tenderness: There is no abdominal tenderness. There is no guarding. LABS/MICRO/CIWA: Labs (lactic acid, CBC, BMP, magnesium, troponins, PT/INR, APTT, TSH, HIV, sugars) INTERVAL IMAGING: CT HEAD W/O CONTRAST - Result Date: 12/13/2024 IMPRESSION: No acute intracranial abnormality. EKG: EKG 12/13/2024 at 17:35 Normal sinus rhythm ASSESSMENT/PLAN: Negro Sabillon is a 29 year old female with a past medical history of Hodgkins lymphoma (diagnosed in July 2021) s/p chemo, nonepileptic seizures, depression, Eduard-en-Y hepaticojejunostomy (Dr. Clarke), CBD stricture s/p cholecystectomy (multiple stents), resection of extrahepatic bile duct, PEG-J, migraines, serotonin syndrome s/p anesthesia, history of C. difficile who presents for abdominal pain and weight loss ACUTE PROBLEMS: # Episode of unresponsiveness # Witnessed seizure-like activity # Transient unilateral motor deficits Initial concern for cerebrovascular pathology given asymmetric motor weakness, seizure-like activity, unresponsiveness. Urology contacted, there evaluation was reassuring for nonacute etiology. Consider patient's history of hemiplegic migraine and psychogenic nonepileptic seizure. 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 Recommend treatment of headache per primary team. Headache cocktail Status post 2 g Mag with 10 mg Reglan IV Consider Neurology consult # Abdominal pain # C/f overflow diarrhea # Status post cholecystectomy # Status post Eduard-en-Y # Status post G-tube Upper and lower endoscopy overall very reassuring there is no acute pathologic abdominal pain. Concern for hyperalgesia given patient's inability to tolerate home analgesia regimen. Additional concern for no bowel movements since colonoscopy. PLAN: GI recommendations Follow up pathology results In oupt setting, patient may benefit from neuromodulator therapy. She is already on effexor for migraines. May benefit from dose adjustment or trial TCA Avoid NSAIDs d/t GI anatomy to minimize anastomotic ulcers stop bentyl. Pt denies benefit from bentyl and can worsen constipation Since diarrhea has resolved, can hold off imodium at this time can increase zofran dose to 8mg Q6H pending Qtc. (Anti-emetics strategy below) scheduled APAP if has severe worsening abdominal pain, can consider CT A/P w/ IV and PO contrast. Can evaluate stool burden as well since has reported hx of overflow incontinence but unable to find reports suggesting this. For nausea, would suggest using staggered positioning of a multimodal antiemetic regimen including agenst such as: Scopolamine - transdermally, 1.5 mg every 72 hours-- Ondansetron, oral, IV, IM: 4 to 8 mg as a single dose; may repeat 4 to 8 mg every 4 to 8 hours as needed Prochlorperazine 5 to 10 mg PO every six to eight hours, 5 to 10 mg IM or 2.5 to 10 mg IV every three to four hours, or 25 mg by rectal suppository every 12 hours GI will coordinate outpatient follow-up. Pending results, consider imodium PRN. If no improvement, consider empiric trial of cholecystyramine for bile silt diarrhea hold DVT PPX today Daily CBC, BMP, LFTs, Mag, phos PT/OT Patient is functionally appropriate for discharge home once medically cleared. No further Physical Therapy services recommended at this time. Pepcid 20 mg daily as needed Dilaudid 2 mg every 6 hours as needed, approximating home regimen Adding 1 mg IV Dilaudid for breakthrough pain Convert Tylenol to scheduled every 6 hours Discontinue Toradol in the setting of concern for anastomosis ulcer Reglan 10 mg IV every 6 hours as needed Zofran 4 mg IV every 6 hours as needed # Hypertensive readings Normotensive throughout the night and morning. PLAN: Vitals every 4 hours Low-dose amlodipine if pressures do not improve. # Pyuria # Nephrolithiasis Asymptomatic, no intervention indicated. CHRONIC PROBLEMS: # Mental health Wellbutrin 100 mg twice daily Ativan 1 mg nightly as needed Effexor XR 225 mg every morning PPX/MISC: DVT/PE Prophylaxis: SCD'S GI Prophylaxis: Pepcid 20 mg daily Bowel Regimen: Psyllium, MiraLax Pain Control: Dilaudid, Tylenol Diet: Regular Fluids: P.o. as tolerated Code: Full Code Social: Extended Emergency Contact Information Primary Emergency Contact: DAREN SABILLON Mobile Relation: Mother Secondary Emergency Contact: TROY CURTIS Mobile Relation: Other Dispo: pending ability to tolerate oral intake without significant abdominal pain nausea or vomiting Anticipate discharge once above concerns are resolved. Outpatient Follow-up Recommendations: PCP, patient follows in [place] with non [facility] provider Gastroenterology to set up outpatient follow-up Plan is preliminary until discussed with/finalized by attending physician, Dr. Christina Ewing MD Computer Engineering Technician, PGY-1 FM Team Pager: [phone] Cosigned by Christina Tony MD at 12/15/2024 1:31 PM EDT Associated attestation - Christina Tony MD - 12/15/2024 1:31 PM EDT Teaching Physician Note: I saw and evaluated the patient. I personally obtained the self and critical portions of the historyand physical exam. I reviewed the resident's documentation and discussed the patient with the resident. I agree with the resident's medical decision making as documented in the resident's note. 29yoF w/PMHx Hodgkin lymphoma (dx July 2021), MICHAEL, depression, Eduard-en-Y hepaticojejunostomy, CBD stricture s/p cholecystectomy, PEG-J tube, complex migraines presented with abdominal pain, nausea, vomiting and diarrhea, slowly resolving. Pt is s/p EGD/colonoscopy which was overall reassuring. Pt slowly improved, discharged on home pain regimen. Pt did have episode of unresponsiveness, seizure like activity, and R sided weakness. Evaluated by neuro, ultimately thought to be 2/2 complex migraines. Pt returned to baseline after the episode with no recurrence. Christina Tony MD * Christina Tony MD - 12/13/2024 10:53 PM EDT Teaching Physician Note: I saw and evaluated the patient. I personally obtained the self and critical portions of the historyand physical exam. I reviewed the resident's documentation and discussed the patient with the resident. I agree with the resident's medical decision making as documented in the resident's note. 29yoF w/PMHx Hodgkin lymphoma, RnY hepaticojejunostomy, CBD stricture s/p cholecystectomy, PEG-Jtube, MICHAEL, chronic pain who presented with abdominal pain with diarrhea and weight loss x3 weeks. #. Abdominal pain with nausea and diarrhea: persistent pain and nausea, diarrhea has resolved sinceegd/colonoscopy. initially admitted to and lab eval done there. Now s/p EGD colonoscopy 12/11 with largely unremarkable findings. - increased antiemetics - changed pain regimen for more flexibility for increased pain, up to 4 mg q4h for severe pain. Pt reports using up to 5 tabs dilaudid daily at home, sometimes using 4mg at a time rather than 2 mg q3-4 hours. - anticipate discharge once pain is manageable and tolerating po intake. Christina Tony MD * Larisa Arechiga, RN - 12/13/2024 7:53 PM EDT Images from the original note were not included. Rapid Response Note Reason for Hopitilization: Chronic diarrhea Reason for call: Unresponsiveness [Medical History] [Medical History] Past Medical History Diagnosis Date Bile leak 2018 Cholecystitis. S/p cholecystectomy complications; biliary tree destruction. Stents placed, cholecystostomy for 6 weeks. Eduard-en-y with Chasidy in 2018. Then G tube 2020 for malnourrishment. Removed during chemo in 2021 got infected. Hodgkin's disease in remission 2021 Treatment 07/2021 - 12/2021; remisision in 03/2022. ABVD then AVD. Right. clavicular nodectomy. Migraine without aura and without status migrainosus, not intractable Emmgality 6-7 years ago [Allergies] [Allergies] Allergen Reactions Benadryl [Diphenhydramine] VS: Vital sign ranges over the past 24 hours (retrieved 12/13/2024 at 7:44 PM): Tmax (24 hours): 99.2 ??F (37.3 ??C) Pulse Av.7 Min: 77 Max: 92 Systolic (24hrs), Av , Min:135 , Max:190 Diastolic (24hrs), Av, Min:84, Max:109 MAP (mmHg) Av.2 mmHg Min: 94 mmHg Max: 128 mmHg Resp Av.3 Min: 15 Max: 18 SpO2 Av.9 % Min: 98 % Max: 100 % CBC/PT/INR 12/13/2024 12/13/2024 6:33 PM 5:10 AM WBC 8.4 7.0 RBC 5.16 4.67 Hgb 14.8 13.5 Hct 41.9 38.1 MCV 81 82 RDW 13.0 13.0 Plt 293 266 aPTT 30 -- INR 1.03 -- Basic Metabolic Panel 12/13/2024 12/13/2024 6:33 PM 5:10 AM Na 142 142 K 3.6 3.5 Cl 102 104 CO2 29 29 Gap 15 13 Glu 97 119 BUN 10 12 Cr 0.75 0.62 Ca 9.7 9.4 Mg 2.4 2.2 PO4 -- 4.0 Fingerstick Glucose Glucose 12/13/24 1825 95 Interventions: CYBER DEFENSE INCIDENT RESPONDER called to the bedside for patient being unresponsive. Upon arrival patient was hypertensive to 180's systolic. Patient initially not responding to voice or painful stimuli. Labs sent. Pupils 7, round brisk. BG 95. Dr. Loaiza at the bedside. #20 g iv placed in the left AC. Patient woke up andwas able to answer simple yes and no questions. Patient with right sided facial drop, right sided hemianopia. On transport to CT patient starting to have 5-10 second seizure like activity (see neuro flowsheet). Patient took to CT head at 1846 and brought back to 3E. Patient more awake and able to perform full NIH. Dr. Richardson at the bedside to access patient and recommending headache cocktail. Headct negative. Patients VSS and remains on 3E at this time. Sign out given to oncoming CYBER DEFENSE INCIDENT RESPONDER nurses. 12/13/24 1858 NIH Stroke Scale 1a. Level of Consciousness 1 1b. LOC Questions 0 1c. LOC Commands 0 Best Gaze 0 Visual 1 Facial Palsy 2 Motor Arm Right 1 Motor Arm Left 1 Motor Leg Right 1 Motor Leg Left 1 Limb Ataxia 1 If ataxia present; limb affected Left leg Sensory 1 Best Language 1 Dysarthria 0 Extinction and Innattention 0 NIH Total 11 * Phil Varela RN - 12/13/2024 7:35 PM EDT 1637: Nurse was called by another by nurse patient has an emergency. When nurse enter the patient room all staff and MD was on bedside and patient was breathing and unresponsive. CY[employer] DEFENSE INCIDENT RESPONDER was called and on bedside. Patient CT head was done without contrast. Patient came back and assessed by neurology team. CYBER DEFENSE INCIDENT RESPONDER was on bedside. Patient was responsive. Patient has new order for migraine headache cocktail (2 gm Mg and Reglan 10 mg IV push) was administered by oncoming nurse. Called pharmacy to tube up the other medications. 0: patient is responsive now and had headache. Oncoming nurse aware. * Lucien Richardson MD - 12/13/2024 7:13 PM EDT Neurology called due to acute change in mental status. Pt reportedly complained of headache, then became unresponsive. En route to the CT scannner, she reportedly had eye fluttering and upper body movements. With sternal rub, she would respond. STAT CTH ordered. No acute process seen. On exam, pt drowsy. Opens eyes to voice. Oriented to self. Says she has a headache. When asked if this is a typical hemiplegic migraine , she indicates yes. PERRL. Attends to speaker. Decreased activation of right face. Speech is soft, but fluent. Decreased strength in right arm and right leg, although there is a positive Sun's sign on the right consistent with decreased effort. 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 Recommend treatment of headache per primary team. If full consult is desired, please call tomorrow. Total length of time 20 (minutes) of the encounter, exclusive of procedures. Time-based billing justifications: Reviewing (chart, labs, and other clinical notes) Obtaining history (or reviewing separately obtained history) Patient visit (including performing a medically appropriate exam) Counseling/educating the patient/family/caregiver Ordering (medications, tests, procedures - including independent interpretation of results when notreported separately) Referring/communicating with other health pet caretaker - when not reported separately [facility]ing [facility] Uzair Richardson MD Neurology service pager (for floor and ED consults): [phone] * Tiffanie Blanca RN - 12/13/2024 6:30 PM EDT Called to room by patient's roommate as she was concerned for patient. Patient had a change in LOC from this morning so Rapid Response was activated. VS obtained and labs drawn per verbal orders. Rapid at bedside and took over. Patient off the floor to CT around 184. * Devonte Ro MD - 12/13/2024 9:27 AM EDT Department of Gastroenterology and Hepatology [facility] Brief Consult Follow Up Note GI Attending Physician: Dr. Hermann Jerome MD Location: [place] [address] Attending Physician: Tigre Guevara MD Date of admission: 12/09/2024 7:36 AM Reason for Consult and Assessment Negro Sabillon is a 29 year old female with PMH CCY c/b biliary strictures/CBD stricture s/p stents, extrahepatic bile duct resection and Eduard-en-Y hepaticojejunostomy, prior PEG-J, Hodgkin's lymphoma (07/2021) s/p chemo. GI c/s for AoC abdominal pain I/s/o complex GI history -Used to follow at [facility] but unable to f/u d/t insurance. Lives in [place], told by her local GI practice to go to [facility] d/t complex abdominal hx -P/w 3 weeks of abdominal diarrhea, 6-7 times per day with episodes of incontinence. Developed epigastric pain last week. No melena or hematochezia -No NSAIDs -About 1 month ago, pt was told had large stool burden on imaging and was told c/f constipation. Home meds: effexor, wellbutrin, ambien, linzess (not taking) GI procedures -EGD 06/2023: normal esophagus, old gastrotomy scar, normal stomach (Bx: unremarkable) /duodenum (Bx: unremarkable). -EGD 12/11/24: wnl -Cpscope 12/11/24: wnl. Random Bx obtained. Recommendations #chronic Abdominal Pain #Subacute diarrhea #CCY c/b biliary stricture/CBD stricture s/p stents & s/pt bile duct resection and Eduard-en-Y hepaticojejunostomy -Etiology is unclear at this time but appears acute on chronic and likely multifactorial. Endoscopically no significant findings. Pt is on chronic hydromorphone for chronic pain and may have component of hyperalgesia and visceral hypersensitivity that may have been exacerbated post endoscopic. Possi ble patient may have had infectios etiology contributing to acute diarrhea and may have developed post-infectious IBS-M (diarrhea and constipation). Patient also reports has not had BM since her C-scope prep, so acute exacerbation can be 2/2 constipation that can be d/t sedation and uptitration of opioids. -Pt seen laying supine comfortably in bed. Abdominal exam benign, non- peritonitic, bowel sounds normoactive. Patient reports her pain is 7 out of 10 and attributes most pain d/t post emesis. Recs -In oupt setting, patient may benefit from neuromodulator therapy. She is already on effexor for migraines. May benefit from dose adjustment or trial TCA -Avoid NSAIDs d/t GI anatomy to minimize anastomotic ulcers -stop bentyl. Pt denies benefit from bentyl and can worsen constipation -Since diarrhea has resolved, can hold off imodium at this time -can increase zofran dose to 8mg Q6H pending Qtc. (Anti-emetics strategy below) -f/u GI clinic. GI sent message to schedulers. -scheduled APAP -if has severe worsening abdominal pain, can consider CT A/P w/ IV and PO contrast. Can evaluate stool burden as well since has reported hx of overflow incontinence but unable to find reports suggesting this. For nausea, would suggest using staggered positioning of a multimodal antiemetic regimen including agenst such as: M1 - Scopolamine - transdermally, 1.5 mg every 72 hours 5-hydroxytryptamine (HT)-3 - Ondansetron, oral, IV, IM: 4 to 8 mg as a single dose; may repeat 4 to8 mg every 4 to 8 hours as needed D2 - ??Prochlorperazine 5 to 10 mg PO every six to eight hours, 5 to 10 mg IM or 2.5 to 10 mg IV every three to four hours, or 25 mg by rectal suppository every 12 hours Thank you for this consult, we will signoff. Please page with any questions. Devonte Ro MD Gastroenterology Fellow Division of Gastroenterology & Hepatology [facility] 12/13/24, 9:27 AM * Carlo Truong MD - 12/13/2024 6:58 AM EDT Images from the original note were not included. [address] [id number] [facility] INPATIENT SERVICE PROGRESS NOTE Negro Sabillon 29 year old 140 lbs MRN/Room: [id number] : 1995 Admit Date: 12/09/2024 Chief Complaint Patient presents with Abdominal pain Patient c/o abdominal pain x5 days. Seen recently at but due to insurance reasons needed to comehere per patient. Hospital Course: Negro Sabillon is a 29 year old female with a past medical history of Hodgkins lymphoma (diagnosed in July 2021) s/p chemo, nonepileptic seizures, depression, Eduard-en-Y hepaticojejunostomy (Dr. Clarke), CBD stricture s/p cholecystectomy (multiple stents), resection of extrahepatic bile duct, PEG-J, migraines, serotonin syndrome s/p anesthesia, history of C. difficile who presents for abdominal pain and weight loss In the ED, patient was hypertensive to 164/93, afebrile, saturating well on room air, in no acute distress. Physical exam performed by ED provider significant for subjective hypovolemia, RUQ and epigastric abdominal tenderness. Labs notable for urine leukocyte esterase/WBCs, total bilirubin 1.2 from 0.6. Xray multiple nonspecific gaseously prominent loops of bowel are present throughout the abdomen with a presumed surgical anastomosis in the right hemiabdomen. Patient was given IV fluids, zofran, dilaudid and started on ceftriaxone. Patient was recommended for admission to [facility] for medical management. Upper and lower endoscopy completed without complication. No signs of anastomosis ulcers or other inflammatory bowel disease. No sign of biliary complications. Biopsies taken from multiple sites, pathology sent for microscopic colitis. Physician called to bedside overnight on 12/12/2024 for 10/10 abdominal pain, nausea, vomiting. Patient was given increased dose of Dilaudid. SUBJECTIVE: Today's Interval: Admitted on 12/09/2024 Length of stay: 2 day(s) Overnight Events: No acute events Physician called overnight for 10/10 abdominal pain Physical exam reassuring Increased pain regimen to Dilaudid 4 mg every 6 hours as needed Patient seen and evaluated this morning at bedside. States she is much more comfortable now. Patient states she is going to attempt to eat a full meal this morning and afternoon. Interval Specialist Recs: IP GASTROENTEROLOGY CONSULT Gastroenterology Etiology is unclear at this time but appears acute on chronic and likely multifactorial. Endoscopically no significant findings. Pt is on chronic hydromorphone for chronic pain and may have componentof hyperalgesia and visceral hypersensitivity that may have been exacerbated post endoscopic. 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 Patient also reports has not had BM since her C-scope prep, so acute exacerbation can be 2/2 constipation that can be d/t sedation and uptitration of opioids. -Pt seen laying supine comfortably in bed. Abdominal exam benign, non- peritonitic, bowel sounds normoactive. Patient reports her pain is 7 out of 10 and attributes most pain d/t post emesis. In oupt setting, patient may benefit from neuromodulator therapy. She is already on effexor for migraines. May benefit from dose adjustment or trial TCA Avoid NSAIDs d/t GI anatomy to minimize anastomotic ulcers stop bentyl. Pt denies benefit from bentyl and can worsen constipation Since diarrhea has resolved, can hold off imodium at this time can increase zofran dose to 8mg Q6H pending Qtc. (Anti-emetics strategy below) f/u GI clinic. GI sent message to schedulers. scheduled APAP if has severe worsening abdominal pain, can consider CT A/P w/ IV and PO contrast. Can evaluate stool burden as well since has reported hx of overflow incontinence but unable to find reports suggesting this. For nausea, would suggest using staggered positioning of a multimodal antiemetic regimen including agenst such as: M1 - Scopolamine - transdermally, 1.5 mg every 72 hours 5-hydroxytryptamine (HT)-3 - Ondansetron, oral, IV, IM: 4 to 8 mg as a single dose; may repeat 4 to8 mg every 4 to 8 hours as needed D2 - ??Prochlorperazine 5 to 10 mg PO every six to eight hours, 5 to 10 mg IM or 2.5 to 10 mg IV every three to four hours, or 25 mg by rectal suppository every 12 hours PT/OT Patient is functionally appropriate for discharge home once medically cleared. No further Physical Therapy services recommended at this time. SCHEDULED I/P MEDS: cetirizine 10 mg Daily naloxone polyethylene glycol 17 g At Bedtime acetaminophen 1,000 mg q6h psyllium 1 Packet 2x Daily buPROPion 100 mg 2x Daily venlafaxine 225 mg Every morning PRN MEDS: naloxone HYDROmorphone 2 mg Q4H PRN ondansetron 4 mg Q6H PRN famotidine 20 mg Daily PRN IV MEDS: OBJECTIVE: Patient Vitals for the past 24 hrs: BP Temp Temp src Pulse Resp SpO2 O2 Device 12/13/240 -- -- -- -- -- -- Room air 12/13/24 190 160/97 -- -- 92 18 98 % -- 12/13/24 1900 162/109 -- -- 80 18 100 % Room air 12/13/24 1858 182/102 -- -- 86 17 100 % Room air 12/13/24 1856 166/105 -- -- 79 18 98 % -- 12/13/24 1854 173/101 -- -- 83 17 100 % -- 12/13/24 1852 180/103 -- -- 84 18 98 % -- 12/13/24 1850 162/92 -- -- 80 15 100 % Room air 12/13/24 1848 163/104 -- -- 77 18 99 % -- 12/13/24 1846 186/91 -- -- 81 18 98 % -- 12/13/24 1844 177/105 -- -- 81 18 99 % -- 12/13/24 1842 181/105 -- -- 90 -- 99 % -- 12/13/24 1840 187/98 -- -- -- -- 98 % Room air 12/13/24 1838 177/104 -- -- -- -- -- -- 12/13/24 1836 184/100 -- -- -- -- -- -- 12/13/24 1834 190/106 -- -- -- -- -- -- 12/13/24 1832 183/108 -- -- -- -- -- Room air 12/13/24 1554 154/99 99.2 ??F (37.3 ??C) Oral 88 18 99 % Room air 12/13/24 1217 -- 99 ??F (37.2 ??C) Oral -- -- -- -- 12/13/24 1020 144/93 -- -- 80 16 -- Room air 12/13/24 0200 135/84 97.8 ??F (36.6 ??C) Oral 90 16 99 % Room air 12/13/24 0032 147/96 98.1 ??F (36.7 ??C) Oral 84 17 98 % Room air Change in Weight: Current value is 140.0 lb (63.503 kg) on 12/11/2024 at 1143 0.0 lb (0.000 kg) from 140.0 lb (63.503 kg) on 12/09/2024 at 1206 (previous value) 0.0 lb (0.000 kg) from 140.0 lb (63.503 kg) on 12/09/2024 at 1206 (first value for this admission) Intake/Output Summary (Last 24 hours) at 12/13/2024 2258 Last data filed at 12/13/2024 1555 Gross per 24 hour Intake 600 ml Output -- Net 600 ml Physical Exam Constitutional: General: She is not in acute distress. Appearance: Normal appearance. HENT: Head: Normocephalic and atraumatic. Right Ear: External ear normal. Left Ear: External ear normal. Nose: Nose normal. Mouth/Throat: Mouth: Mucous membranes are moist. Pharynx: Oropharynx is clear. Eyes: General: No scleral icterus. Right eye: No discharge. Left eye: No discharge. Extraocular Movements: Extraocular movements intact. Conjunctiva/sclera: Conjunctivae normal. Cardiovascular: Rate and Rhythm: Normal rate and regular rhythm. Pulses: Normal pulses. Heart sounds: Normal heart sounds. No murmur heard. No friction rub. No gallop. Pulmonary: Effort: Pulmonary effort is normal. Breath sounds: Normal breath sounds. No wheezing, rhonchi or rales. Abdominal: General: Abdomen is flat. There is no distension. Palpations: Abdomen is soft. There is no mass. Tenderness: Diffusely mildly tender to palpation Hernia: No hernia is present. Musculoskeletal: General: No swelling or signs of injury. Normal range of motion. Cervical back: Normal range of motion. Right lower leg: No edema. Left lower leg: No edema. Skin: General: Skin is warm and dry. Capillary Refill: Capillary refill takes less than 2 seconds. Coloration: Skin is not jaundiced. Findings: No lesion or rash. Neurological: Mental Status: She is alert and oriented to person, place, and time. Mental status is at baseline. Psychiatric: Mood and Affect: Mood normal. Behavior: Behavior normal. Thought Content: Thought content normal. LABS/MICRO/CIWA: Labs CBC Unremarkable BMP Unremarkable Mg 2.3 Phos 3.7 INTERVAL IMAGING: Colonoscopy as above EKG: NA ASSESSMENT/PLAN: Negro Sabillon is a 29 year old female with a past medical history of Hodgkins lymphoma (diagnosed in July 2021) s/p chemo, nonepileptic seizures, depression, Eduard-en-Y hepaticojejunostomy (Dr. Clarke), CBD stricture s/p cholecystectomy (multiple stents), resection of extrahepatic bile duct, PEG-J, migraines, serotonin syndrome s/p anesthesia, history of C. difficile who presents for abdominal pain and weight loss ACUTE PROBLEMS: # Abdominal pain # C/f overflow diarrhea # Status post cholecystectomy # Status post Eduard-en-Y # Status post G-tube Upper and lower endoscopy overall very reassuring there is no acute pathologic abdominal pain. Concern for hyperalgesia given patient's inability to tolerate home analgesia regimen. Additional concern for no bowel movements since colonoscopy. PLAN: GI recommendations Follow up pathology results In oupt setting, patient may benefit from neuromodulator therapy. She is already on effexor for migraines. May benefit from dose adjustment or trial TCA Avoid NSAIDs d/t GI anatomy to minimize anastomotic ulcers stop bentyl. Pt denies benefit from bentyl and can worsen constipation Since diarrhea has resolved, can hold off imodium at this time can increase zofran dose to 8mg Q6H pending Qtc. (Anti-emetics strategy below) scheduled APAP if has severe worsening abdominal pain, can consider CT A/P w/ IV and PO contrast. Can evaluate stool burden as well since has reported hx of overflow incontinence but unable to find reports suggesting this. For nausea, would suggest using staggered positioning of a multimodal antiemetic regimen including agenst such as: Scopolamine - transdermally, 1.5 mg every 72 hours Ondansetron, oral, IV, IM: 4 to 8 mg as a single dose; may repeat 4 to 8 mg every 4 to 8 hours as needed Prochlorperazine 5 to 10 mg PO every six to eight hours, 5 to 10 mg IM or 2.5 to 10 mg IV every three to four hours, or 25 mg by rectal suppository every 12 hours GI will coordinate outpatient follow-up. Pending results, consider imodium PRN. If no improvement, consider empiric trial of cholecystyramine for bile silt diarrhea hold DVT PPX today Daily CBC, BMP, LFTs, Mag, phos PT/OT Patient is functionally appropriate for discharge home once medically cleared. No further Physical Therapy services recommended at this time. Pepcid 20 mg daily as needed Dilaudid 2 mg every 6 hours as needed, approximating home regimen Adding 1 mg IV Dilaudid for breakthrough pain Convert Tylenol to scheduled every 6 hours Discontinue Toradol in the setting of concern for anastomosis ulcer Reglan 10 mg IV every 6 hours as needed Zofran 4 mg IV every 6 hours as needed # Hypertensive readings Normotensive throughout the night and morning. PLAN: Vitals every 4 hours Low-dose amlodipine if pressures do not improve. # Pyuria # Nephrolithiasis Asymptomatic, no intervention indicated. CHRONIC PROBLEMS: # Mental health Wellbutrin 100 mg twice daily Ativan 1 mg nightly as needed Effexor XR 225 mg every morning PPX/MISC: DVT/PE Prophylaxis: SCD'S GI Prophylaxis: Pepcid 20 mg daily Bowel Regimen: Psyllium, MiraLax Pain Control: Dilaudid, Tylenol Diet: Regular Fluids: P.o. as tolerated Code: Full Code Social: Extended Emergency Contact Information Primary Emergency Contact: DAREN SABILLON Mobile Relation: Mother Secondary Emergency Contact: TROY CURTIS Mobile Relation: Other Dispo: pending ability to tolerate oral intake without significant abdominal pain nausea or vomiting Anticipate discharge once above concerns are resolved. Outpatient Follow-up Recommendations: PCP, patient follows in [place] with non [facility] provider Gastroenterology to set up outpatient follow-up Plan is preliminary until discussed with/finalized by attending physician, Dr. Christina Truong MD Family Medicine PGY-1 FM Team Pager: [phone] * Christina Tony MD - 12/12/2024 4:51 PM EDT Teaching Physician Note: I saw and evaluated the patient. I personally obtained the self and critical portions of the historyand physical exam. I reviewed the resident's documentation and discussed the patient with the resident. I agree with the resident's medical decision making as documented in the resident's note. 29yoF w/PMHx Hodgkin lymphoma, RnY hepaticojejunostomy, CBD stricture s/p cholecystectomy, PEG-Jtube, MICHAEL, chronic pain who presented with abdominal pain with diarrhea and weight loss x3 weeks. #. Abdominal pain with nausea and diarrhea: initially admitted to and lab eval done there. Now s/p EGD colonoscopy 12/11 with largely unremarkable findings. - per GI, if results all negative, consider imodium PRN. If no improvement, can consider empiric trial of cholestyramine. - not tolerating po, will cont to monitor Christina Tony MD * Hilaria Billy - 12/12/2024 3:22 PM EDT I have reviewed and agree with Jose Raul Zuluaga's (Student Nurse) documentation for 7am-4pm shift. * Allegra Armenta RN - 12/12/2024 1:46 PM EDT CM spoke with patient at bedside. Patient lying in bed. Patient awake, alert, and cooperative. CM introduced herself to the patient and informed her of CM's job. Patient verbalized understanding. CM will remain available to assist with discharge planning and needs as warranted. Allegra Armenta, RN, BSN Case Management [phone] M-F 7:30-4:00 * Carlo Truong MD - 12/12/2024 5:58 AM EDT Images from the original note were not included. [place] [id number] FAMILY MEDICINE INPATIENT SERVICE PROGRESS NOTE Negro Sabillon 29 year old 140 lbs MRN/Room: [id number] : 1995 Admit Date: 12/09/2024 Chief Complaint Patient presents with Abdominal pain Patient c/o abdominal pain x5 days. Seen recently at but due to insurance reasons needed to comehere per patient. Hospital Course: Negro Sabillon is a 29 year old female with a past medical history of Hodgkins lymphoma (diagnosed in July 2021) s/p chemo, nonepileptic seizures, depression, Eduard-en-Y hepaticojejunostomy (Dr. Clarke), CBD stricture s/p cholecystectomy (multiple stents), resection of extrahepatic bile duct, PEG-J, migraines, serotonin syndrome s/p anesthesia, history of C. difficile who presents for abdominal pain and weight loss In the ED, patient was hypertensive to 164/93, afebrile, saturating well on room air, in no acute distress. Physical exam performed by ED provider significant for subjective hypovolemia, RUQ and epigastric abdominal tenderness. Labs notable for urine leukocyte esterase/WBCs, total bilirubin 1.2 from 0.6. Xray multiple nonspecific gaseously prominent loops of bowel are present throughout the abdomen with a presumed surgical anastomosis in the right hemiabdomen. Patient was given IV fluids, zofran, dilaudid and started on ceftriaxone. Patient was recommended for admission to [facility] for medical management. Upper and lower endoscopy completed without complication. No signs of anastomosis ulcers or other inflammatory bowel disease. No sign of biliary complications. Biopsies taken from multiple sites, pathology sent for microscopic colitis. SUBJECTIVE: Today's Interval: Admitted on 12/09/2024 Length of stay: 1 day(s) Overnight Events: No acute events Physician called overnight for 10/10 abdominal pain Physical exam reassuring Increased pain regimen to Dilaudid 4 mg every 6 hours as needed Patient seen and evaluated this morning at bedside. States she is much more comfortable now. Patient states she is going to attempt to eat a full meal this morning and afternoon. Interval Specialist Recs: IP GASTROENTEROLOGY CONSULT Gastroenterology Healed site of PEG tube in antrum Otherwise normal upper endoscopy and colonoscopy Follow up pathology results Okay to resume prior diet from GI standpoint If symptoms continue, patient can follow up in GI tract to discuss further work up vs trial of cholestyramine for bile acid diarrhea Inpatient GI team to sign off at this time, can page for further questions PT/OT Patient is functionally appropriate for discharge home once medically cleared. No further Physical Therapy services recommended at this time. SCHEDULED I/P MEDS: dicyclomine 20 mg 4x Daily psyllium 1 Packet 2x Daily buPROPion 100 mg 2x Daily venlafaxine 225 mg Every morning PRN MEDS: HYDROmorphone 4 mg Q6H PRN ondansetron 4 mg Q6H PRN metoclopramide 10 mg Q6H PRN acetaminophen 650 mg Q4H PRN ketorolac 15 mg Q6H PRN famotidine 20 mg Daily PRN IV MEDS: OBJECTIVE: Patient Vitals for the past 24 hrs: BP Temp Temp src Pulse Resp SpO2 O2 Device 12/12/24 0358 123/66 98.1 ??F (36.7 ??C) Oral 92 16 99 % Room air 12/11/24 2326 128/88 98.1 ??F (36.7 ??C) Oral 89 16 100 % Room air 12/11/24 1956 144/96 98.5 ??F (36.9 ??C) Oral 93 18 100 % Room air 12/11/24 1542 142/99 97.4 ??F (36.3 ??C) Oral 79 18 98 % -- 12/11/24 1430 137/99 -- -- 85 16 100 % Room air 12/11/24 1404 128/94 97.4 ??F (36.3 ??C) Temporal 79 16 100 % Room air 12/11/24 1245 154/107 98 ??F (36.7 ??C) Temporal 85 16 98 % Room air 12/11/24 1100 (!) 159/109 98.3 ??F (36.8 ??C) Oral 93 18 100 % Room air 12/11/24 0920 -- -- -- -- -- 98 % -- 12/11/24 0700 (!) 141/103 97.7 ??F (36.5 ??C) Oral 82 18 98 % Room air Change in Weight: Current value is 140.0 lb (63.503 kg) on 12/11/2024 at 1143 0.0 lb (0.000 kg) from 140.0 lb (63.503 kg) on 12/09/2024 at 1206 (previous value) 0.0 lb (0.000 kg) from 140.0 lb (63.503 kg) on 12/09/2024 at 1206 (first value for this admission) Intake/Output Summary (Last 24 hours) at 12/12/2024 0558 Last data filed at 12/11/2024 1406 Gross per 24 hour Intake 300 ml Output 0 ml Net 300 ml Physical Exam Constitutional: General: She is not in acute distress. Appearance: Normal appearance. HENT: Head: Normocephalic and atraumatic. Right Ear: External ear normal. Left Ear: External ear normal. Nose: Nose normal. Mouth/Throat: Mouth: Mucous membranes are moist. Pharynx: Oropharynx is clear. Eyes: General: No scleral icterus. Right eye: No discharge. Left eye: No discharge. Extraocular Movements: Extraocular movements intact. Conjunctiva/sclera: Conjunctivae normal. Cardiovascular: Rate and Rhythm: Normal rate and regular rhythm. Pulses: Normal pulses. Heart sounds: Normal heart sounds. No murmur heard. No friction rub. No gallop. Pulmonary: Effort: Pulmonary effort is normal. Breath sounds: Normal breath sounds. No wheezing, rhonchi or rales. Abdominal: General: Abdomen is flat. There is no distension. Palpations: Abdomen is soft. There is no mass. Tenderness: There is no abdominal tenderness. There is no guarding. Hernia: No hernia is present. Musculoskeletal: General: No swelling or signs of injury. Normal range of motion. Cervical back: Normal range of motion. Right lower leg: No edema. Left lower leg: No edema. Skin: General: Skin is warm and dry. Capillary Refill: Capillary refill takes less than 2 seconds. Coloration: Skin is not jaundiced. Findings: No lesion or rash. Neurological: Mental Status: She is alert and oriented to person, place, and time. Mental status is at baseline. Psychiatric: Mood and Affect: Mood normal. Behavior: Behavior normal. Thought Content: Thought content normal. LABS/MICRO/CIWA: Labs CBC Unremarkable BMP Unremarkable Mg 2.3 Phos 3.7 INTERVAL IMAGING: Colonoscopy as above EKG: NA ASSESSMENT/PLAN: Negro Sabillon is a 29 year old female with a past medical history of Hodgkins lymphoma (diagnosed in July 2021) s/p chemo, nonepileptic seizures, depression, Eduard-en-Y hepaticojejunostomy (Dr. Clarke), CBD stricture s/p cholecystectomy (multiple stents), resection of extrahepatic bile duct, PEG-J, migraines, serotonin syndrome s/p anesthesia, history of C. difficile who presents for abdominal pain and weight loss ACUTE PROBLEMS: # Abdominal pain # C/f overflow diarrhea # Status post cholecystectomy # Status post Eduard-en-Y # Status post G-tube Upper and lower endoscopy overall very reassuring there is no acute dysfunction abdominal pain. PLAN: GI recommendations Follow up pathology results Okay to resume prior diet from GI standpoint If symptoms continue, patient can follow up in GI tract to discuss further work up vs trial of cholestyramine for bile acid diarrhea GI will coordinate outpatient follow-up. Pending results, consider imodium PRN. If no improvement, consider empiric trial of cholecystyramine for bile silt diarrhea hold DVT PPX today Daily CBC, BMP, LFTs, Mag, phos PT/OT to evaluate and treat NPO in preparation for procedure Pepcid 20 mg daily as needed Dilaudid 2 mg every 6 hours as needed, approximating home regimen Toradol 15 mg IV every 6 hours as needed for moderate pain Reglan 10 mg IV every 6 hours as needed Zofran 4 mg IV every 6 hours as needed # Hypertensive readings Normotensive throughout the night and morning. PLAN: Vitals every 4 hours Low-dose amlodipine if pressures do not improve. # Pyuria # Nephrolithiasis Asymptomatic, no intervention indicated. CHRONIC PROBLEMS: # Mental health Wellbutrin 100 mg twice daily Ativan 1 mg nightly as needed Effexor XR 225 mg every morning PPX/MISC: DVT/PE Prophylaxis: SCD'S GI Prophylaxis: Pepcid 20 mg daily Bowel Regimen: Bentyl 20 mg 4 times daily Pain Control: Dilaudid, [place], Tylenol l as above Diet: Full Liquid Fluids: P.o. as tolerated Code: Full Code Social: Extended Emergency Contact Information Primary Emergency Contact: DAREN SABILLON Mobile Relation: Mother Secondary Emergency Contact: TROY CURTIS Mobile Relation: Other Dispo: pending ability to tolerate oral intake without significant abdominal pain nausea or vomiting Anticipate discharge once above concerns are resolved. Outpatient Follow-up Recommendations: PCP, patient follows in [place] with non [facility] provider Gastroenterology to set up outpatient follow-up Plan is preliminary until discussed with/finalized by attending physician, Dr. Christina Truong MD Family Medicine PGY-1 FM Team Pager: [phone] * Roxanne Kellogg RN - 12/11/2024 10:10 AM EDT CM assessed patient at bedside. Name, , PCP with [facility], and address verified. Patient lives with her mom and three siblings. Patient drives, denied any SDOH insecurities at this time. Patient stated she does not have any DME. Her NOK is her mother. She requested that her biological father not to be contacted.Upon DC family will provide transportation home. Patient stated her mother is her POA and the forms were uploaded to [employer] at the [facility]. CM was unable to find the documents. 12/11/24 1009 Assessment and Discharge Planning Evaluation READMISSION LESS THAN 30 DAYS No READMISSION RISK SCORE IS Low Risk INTERVIEWED Patient COGNITIVE STATUS Oriented FUNCTIONAL STATUS PRIOR TO ADMISSION Ambulatory HAS ADVANCE DIRECTIVE ON FILE No LIVING SITUATION Home with Family CONNECTED TO MENTAL HEALTH SERVICES Yes CONNECTED TO COMMUNITY SERVICES No CONNECTED TO SUBSTANCE ABUSE SERVICES No ADMISSION INSURANCE Other (comment) ([employer] EXCHANGE/[employer] HMO & PATHWAY X HMO) TRANSPORTATION TO AND/OR FROM APPOINTMENTS Drives Self;Family/Friend Provides Ride HOME OXYGEN No HOME HEALTH CARE PRIOR TO ADMISSION No DIALYSIS No DISCUSSSED WHAT HELP PATIENT WOULD NEED Yes SDOH Completed? Yes SDOH Risks Addressed - Do Not complete until all required jha are completed Yes DISCHARGE DISPOSITION STILL A PT Roxanne SINGH, DEAL ARCHITECT/CDU Knitting Machine Operator Helper Available: 8:00 am - 6:00 pm Work documented in this encounter H&P Notes * Stella Weinstein DO - 12/11/2024 1:18 PM EDT Written informed consent obtained from patient. Endoscopic procedure risks (including but not limited to perforation, infection, bloating and bleeding) benefits and alternatives explained and questions answered. Patient verbalized understanding. HISTORY & PHYSICAL: Patient's history with special attention to the cardiovascular, pulmonary systems and the current problem was reviewed with the patient prior to the procedure. Medications, allergies, and pertinent laboratory tests were also reviewed at this time. The physical examination,asbelow, was then performed. Vital Signs Reviewed Mouth and Pharynx : Oropharynx, clear Cardiac: regular rate and rhythm Pulmonary: Normal work of breathing Neurological: normal without focal findings Abdomen: Abdomen soft, non-tender. BS normal. Patient will undergo sedation with the assistance of anesthesia physician/DIRECTOR OF HOUSING AND ENERGY SERVICES/AA team. Please see corresponding note for full details. Stella Weinstein DO 12/11/2024 1:18 PM * Tigre Guevara MD - 12/11/2024 11:46 AM EDT Teaching Physician Note: I saw and evaluated the patient. I personally obtained the self and critical portions of the historyand physical exam. I reviewed the resident's documentation and discussed the patient with the resident. I agree with the resident's medical decision making as documented in the resident's note. Tigre Guevara MD * Carlo Truong MD - 12/11/2024 9:54 AM EDT Images from the original note were not included. [address] [id number] FAMILY MEDICINE INPATIENT SERVICE H&P Negro Sabillon 29 year old female : 1995 PCP: No primary care provider on file. Admit Date: 12/09/2024 SUBJECTIVE: CC: Chief Complaint Patient presents with Abdominal pain Patient c/o abdominal pain x5 days. Seen recently at but due to insurance reasons needed to comehere per patient. HISTORY: Past Medical History: Hover for in depth abdominal history Medical History[1] Past Surgical History: Review of patient's past surgical history indicates: BYPASS, GASTRIC EDUARD-EN-Y (2018) For complications status post 2018 cholecystectomy GASTROSTOMY, OPEN; W/CONSTRUCTION, GASTRIC TUBE (2020) Placed in 2020 for malnourishment secondary to Eduard-en-Y. In place until 2021 when it was removed secondary to infection secondary to chemotherapy immunosuppression. Bunyunectomy Family History: Family History[2] Reported medications taking: Patient states she uses 1 g oral Dilaudid 5 times daily as needed Rest as below Outpatient medications prescribed: Current Outpatient Medications Medication Instructions buPROPion (WELLBUTRIN) 100 mg, 2 TIMES DAILY cefUROXime (CEFTIN) 250 mg, Oral, 2 TIMES DAILY HYDROmorphone (DILAUDID) 2 mg, PRN linaclotide (LINZESS) 72 mcg, DAILY ondansetron (ZOFRAN-ODT) 4 mg, Oral, EVERY 8 HOURS PRN Venlafaxine HCl (EFFEXOR XR ORAL) 225 mg, EVERY MORNING zolpidem (AMBIEN) 10 mg, AT BEDTIME PRN Allergies: Allergies[3] Social Hx: Home Lives with mom and 2 siblings in 3 story house. 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 Sabillon is a 29 year old female with a past medical history of Hodgkins lymphoma (diagnosed in July 2021) s/p chemo, nonepileptic seizures, depression, Eduard-en-Y hepaticojejunostomy (Dr. Clarke),CBD stricture s/p cholecystectomy (multiple stents), resection of extrahepatic bile duct, PEG-J, migraines, serotonin syndrome s/p anesthesia, history of C. difficile who presents for abdominal pain and weight loss Patient states approximately 2 weeks ago she began having profuse watery diarrhea 6-7 times daily and epigastric abdominal pain. This was associated with an unintentional weight loss. These symptoms worsened insidiously until patient decided to present to an outside hospital ([facility]) on 12/05. At the hospital, patient was unable to get authorization from her insurance and was therefore unable to be seen by specialists. While awaiting authorization, patient was given analgesia and antiemetics. Imaging done in the hospital was notable for a right upper quadrant ultrasound showing artifact suggestive of nephrolithiasis. CT abdomen pelvis showing postsurgical changes, no acute concerns. Patient eventually left this hospital frustration in presented to [facility] for further evaluation on 12/09. Review of Systems Constitutional: Positive for unexpected weight change. Negative for fatigue and fever. HENT: Negative for congestion, ear pain, hearing loss, nosebleeds and trouble swallowing. Eyes: Negative for pain and visual disturbance. Respiratory: Negative for chest tightness, shortness of breath and wheezing. Cardiovascular: Negative for chest pain, palpitations and leg swelling. Gastrointestinal: Positive for abdominal pain, diarrhea and nausea. Negative for abdominal distention, blood in stool, constipation and vomiting. Endocrine: Negative for cold intolerance, heat intolerance and polyuria. Genitourinary: Negative for dyspareunia, dysuria, flank pain, frequency, hematuria, menstrual problem, pelvic pain, urgency, vaginal bleeding and vaginal discharge. Musculoskeletal: Negative for arthralgias, gait problem and myalgias. Skin: Negative for color change, rash and wound. Allergic/Immunologic: Negative for environmental allergies. Neurological: Negative for dizziness, seizures, syncope, weakness, light- headedness and headaches. Hematological: Does not bruise/bleed easily. Psychiatric/Behavioral: Negative for confusion, dysphoric mood and sleep disturbance. The patient is not nervous/anxious. Chart Review: As above ED Course Summary: In the ED, patient was hypertensive to 164/93, afebrile, saturating well on room air, in no acute distress. Physical exam performed by ED provider significant for subjective hypovolemia, RUQ and epigastric abdominal tenderness. Labs notable for urine leukocyte esterase/WBCs, total bilirubin 1.2 from 0.6. Xray multiple nonspecific gaseously prominent loops of bowel are present throughout the abdomen with a presumed surgical anastomosis in the right hemiabdomen. Patient was given IV fluids, zofran, dilaudid and started on ceftriaxone. Patient was recommended for admission to [facility] for medical management. ED Triage Vitals BP Girls Systolic BP Percentile Girls Diastolic BP Percentile Boys Systolic BP Percentile Boys Diastolic BP Percentile 12/09/24 0736 -- -- -- -- 164/93 Heart Rate Respiratory Rate Temperature Temperature Source SpO2 12/09/24 0736 12/09/24 0736 12/09/24 0736 12/09/24 0736 12/09/24 0736 61 18 98 ??F (36.7 ??C) Oral 100 % Weight Height Head Circumference Peak Flow Pain Score 12/09/24 1206 12/09/24 1206 -- -- 12/09/24 1915 140 lb (63.5 kg) 5' 7 (1.702 m) 7 Pain Loc Pain Education Exclude from Growth Chart -- -- -- Initial ED Labs: - Glucose: 94, Na: 140, K: 3.7, Mg: N/A, Cr: 0.67, Bicarb: 28 - WBC: 6.6, Hgb: 13.8, Platelet: 259 IMAGING: XR ABDOMEN SUPINE + ERECT 2 VIEWS - Result Date: 12/10/2024 IMPRESSION: No free intraperitoneal air or significant air-fluid levels on the upright view. Multiple nonspecific gaseously prominent loops of bowel are present throughout the abdomen with a presumedsurgical anastomosis in the right hemiabdomen. No significant stool burden. CT ABDOMEN/PELVIS W/ CONTRAST - Result Date: 12/05/2024 Impression: 1. No acute abnormality within the abdomen or pelvis. 2. Postsurgical changes of cholecystectomy with small amount of pneumobilia. 3. Postsurgical changes of prior small bowel resection without evidence of obstruction. 4. Additional chronic/incidental findings detailed as above. I personally reviewed the images/study and I agree with the findings as stated by resident physician Crhistiano Espana MD. This study was interpreted at [facility], [place], [place].MACRO: None Signed by: Fransisco Mora 12/05/2024 7:07 PM Dictation workstation: [id number] EKG: NA Meds/Intervention: Medications dextrose 5 % and NaCl 0.9 % iv infusion ( Intravenous IV New Bag 12/11/24 1155) ondansetron (ZOFRAN) 4 MG/2ML injection (4 mg Intravenous Given 12/11/24 0925) metoclopramide (REGLAN) 5 MG/ML injection (10 mg Intravenous Given 12/11/24 1149) acetaminophen (TYLENOL) tablet (has no administration in time range) ketorolac (TORADOL) 15 MG/ML injection (15 mg Intravenous Given 12/11/24 1149) famotidine (PEPCID) tablet (has no administration in time range) LORazepam (ATIVAN) tablet (has no administration in time range) buPROPion (WELLBUTRIN) tablet (100 mg Oral Given 12/11/24 09) venlafaxine (EFFEXOR XR) 24 hour capsule (225 mg Oral Given 12/11/24 09) psyllium (METAMUCIL SUGAR FREE) 51.7 % packet (1 Packet Oral Given 12/11/24 0924) HYDROmorphone (DILAUDID) 1 mg/mL injection (has no administration in time range) HYDROmorphone (DILAUDID) 1 mg/mL injection (1 mg Intravenous Given 12/09/24 0758) lactated ringers iv bolus (0 mL Intravenous IV Stop 12/09/24 1133) ondansetron (ZOFRAN) 4 MG/2ML injection (4 mg Intravenous Given 12/09/24 0758) droPERidol (INAPSINE) 2.5 MG/ML injection (1.25 mg Intravenous Given 12/09/24 0942) HYDROmorphone (DILAUDID) 1 mg/mL injection (1 mg Intravenous Given 12/09/24 0941) cefTRIAXone (ROCEPHIN) 1,000 mg in sodium chloride 9.6 mL IV push (0 mg Intravenous IV Stop 954) polyethylene glycol (COLYTE) 420 g oral solution flavored (4,000 mL Oral Given 12/10/24 1845) polyethylene glycol (COLYTE) 420 g oral solution flavored (4,000 mL Oral Given 12/11/24 0640) OBJECTIVE: Patient Vitals for the past 24 hrs: BP Temp Temp src Pulse Resp SpO2 O2 Device 12/11/24 1100 (!) 159/109 98.3 ??F (36.8 ??C) Oral 93 18 100 % Room air 12/11/24 0920 -- -- -- -- -- 98 % -- 12/11/24 0700 (!) 141/103 97.7 ??F (36.5 ??C) Oral 82 18 98 % Room air 12/11/24 0325 (!) 135/103 -- -- 87 20 96 % Room air 12/10/24 2326 (!) 135/102 -- -- 80 17 97 % Room air 12/10/24 1916 (!) 139/105 98.1 ??F (36.7 ??C) Oral 89 20 97 % Room air 12/10/24 1447 (!) 159/109 -- -- 72 16 98 % Room air Vital sign ranges over the past 24 hours (retrieved 12/11/2024 at 12:47 PM): Tmax (24 hours): 98.3 ??F (36.8 ??C) Pulse Av.8 Min: 72 Max: 93 Systolic (24hrs), Av , Min:135 , Max:159 Diastolic (24hrs), Av, Min:102, Max:109 MAP (mmHg) Av mmHg Min: 111 mmHg Max: 124 mmHg Resp Av.2 Min: 16 Max: 20 SpO2 Av.7 % Min: 96 % Max: 100 % No intake or output data in the 24 hours ending 12/11/24 1247 Comprehensive Physical Exam: BP:159/109 / HR:93 / T:98.3 / WT: 140 lbs / BMI:Body Mass Index is 21.93. Vital signs reviewed. Physical Exam Constitutional: General: She is not in acute distress. Appearance: Normal appearance. HENT: Head: Normocephalic and atraumatic. Right Ear: External ear normal. Left Ear: External ear normal. Nose: Nose normal. Mouth/Throat: Mouth: Mucous membranes are moist. Pharynx: Oropharynx is clear. Eyes: General: No scleral icterus. Right eye: No discharge. Left eye: No discharge. Extraocular Movements: Extraocular movements intact. Conjunctiva/sclera: Conjunctivae normal. Cardiovascular: Rate and Rhythm: Normal rate and regular rhythm. Pulmonary: Effort: Pulmonary effort is normal. Abdominal: General: Abdomen is flat. A surgical scar is present. There is no distension. Palpations: Abdomen is soft. There is no mass. Tenderness: There is abdominal tenderness (diffuse discomfort and focal tenderness to palpation in the epigastric region and right upper quadrant.). There is no guarding. Hernia: No hernia is present. Musculoskeletal: General: No swelling or signs of injury. Normal range of motion. Cervical back: Normal range of motion. Right lower leg: No edema. Left lower leg: No edema. Skin: General: Skin is warm and dry. Capillary Refill: Capillary refill takes less than 2 seconds. Coloration: Skin is not jaundiced. Findings: No lesion or rash. Neurological: Mental Status: She is alert and oriented to person, place, and time. Mental status is at baseline. Psychiatric: Mood and Affect: Mood normal. Behavior: Behavior normal. Thought Content: Thought content normal. SCHEDULED I/P MEDS: psyllium 1 Packet 2x Daily buPROPion 100 mg 2x Daily venlafaxine 225 mg Every morning PRN MEDS: HYDROmorphone HCl PF 1 mg Q4H PRN ondansetron 4 mg Q6H PRN metoclopramide 10 mg Q6H PRN acetaminophen 650 mg Q4H PRN ketorolac 15 mg Q6H PRN famotidine 20 mg Daily PRN LORazepam 1 mg At Bedtime PRN IV MEDS: dextrose 5 % and NaCl 0.9 % 125 mL/hr at 12/11/24 1155 LABS: 12/09 CBC, BMP unremarkable Total bilirubin 1.2 UA with leukocyte esterase and WBCs 12/10 Total bilirubin Today Stool studies pH 7 Fecal fat normal ASSESSMENT/PLAN: Negro Sabillon is a 29 year old female with a past medical history of Hodgkins lymphoma (diagnosed in July 2021) s/p chemo, nonepileptic seizures, depression, Eduard-en-Y hepaticojejunostomy (Dr. Clarke), CBD stricture s/p cholecystectomy (multiple stents), resection of extrahepatic bile duct, PEG-J, migraines, serotonin syndrome s/p anesthesia, history of C. difficile who presents for abdominal pain and weight loss ACUTE PROBLEMS: # Abdominal pain # C/f overflow diarrhea # Status post cholecystectomy # Status post Eduard-en-Y # Status post G-tube Acute concern for anastomotic ulcer versus small-bowel obstruction given extensive surgical history. Differential also includes inflammatory bowel disease, microscopic colitis, malabsorption status post Eduard-en-Y. Gastroenterology currently following. PLAN: GI recommendations KUB to access stool burden to access if overflow EGD to evaluate dyspepsia I/s/o notable GI surgical Hx as patient at risk for anastomotic ulcer. Also to evaluate for enteritis, gastritis, esophagitis, or PUD contributing to constellation of Sx Discomfort can be 2/2 acute diarrhea. colonoscopy with random bx to evaluate MC. Pt is on SNRI that can inc risk of MC GI will coordinate outpatient follow-up. Pending results, consider imodium PRN. If no improvement, consider empiric trial of cholecystyramine for bile silt diarrhea Check fecal elastase to eval for PI stool osm/lyte, stool Mg Stool fat CLD today. NPO @ MN hold DVT PPX this evening and tomorrow Daily CBC, BMP, LFTs, Mag, phos PT/OT to evaluate and treat NPO in preparation for procedure Pepcid 20 mg daily as needed Dilaudid 1 mg every 4 hours as needed for severe pain Toradol 15 mg IV every 6 hours as needed for moderate pain Reglan 10 mg IV every 6 hours as needed Zofran 4 mg IV every 6 hours as needed # Hypertensive readings Patient hypertensive throughout admission. 140s to 160s/100s to 110s. Normotensive at previous outpatient visits. Not congruent with level of pain on physical exam. Patient denies chest pain, visual changes, focal weakness. PLAN: Vitals every 4 hours Low-dose amlodipine if pressures do not improve. # Pyuria # Nephrolithiasis Noted incidentally during abdominal workup. Low concern for acute pathology and given patient flatly denying any symptoms of dysuria, polyuria, flank pain, CVA tenderness. PLAN: Forego further workup at this time Continue to monitor for signs and symptoms of UTI, pyelonephritis, nephrolithiasis and assess as appropriate CHRONIC PROBLEMS: # Mental health Wellbutrin 100 mg twice daily Ativan 1 mg nightly as needed Effexor XR 225 mg every morning PPX/MISC: DVT/PE Prophylaxis: SCD'S GI Prophylaxis: As above Bowel Regimen: As above Pain Control: Dilaudid, toradol Diet: NPO Fluids: D5 NS 125 mL/hour Code: Full Code Social: Extended Emergency Contact Information Primary Emergency Contact: DAREN SABILLON Mobile Relation: Mother Secondary Emergency Contact: TROY CURTIS Mobile Relation: Other Dispo: pending GI findings and recommendations Anticipate discharge once above concerns are resolved. Plan is preliminary until discussed with/finalized by attending physician, Tigre Howard MD Drew Velotta, MD Family Medicine PGY-1 FM Team Pager: [phone] [1] Past Medical History: Diagnosis Date Bile leak 2018 Cholecystitis. S/p cholecystectomy complications; biliary tree destruction. Stents placed, cholecystostomy for 6 weeks. Eduard-en-y with [facility] in 2018. Then G tube 2020 for malnourrishment. Removed during chemo in 2021 got infected. Hodgkin's disease in remission 2021 Treatment 07/2021 - 12/2021; remisision in 03/2022. ABVD then AVD. Right. clavicular nodectomy. Migraine without aura and without status migrainosus, not intractable Emmgality 6-7 years ago [2] Family History Problem Relation Age of Onset Stroke Mother 49 Atrial Fibrillation Mother Cerebral Palsy Brother Brain Cancer Maternal Grandfather 62 [3] Allergies Allergen Reactions Benadryl [Diphenhydramine] documented in this encounter Consult Notes * Ame Saxena OT - 12/12/2024 3:43 PM EDTAssociated Order(s): IP OCCUPATIONAL THERAPY SERVICE REQUEST Occupational Therapy Note OT orders received and chart reviewed. Pt demonstrated ability to ambulate within room with no device independently and reports being independent with ADL's throughout the day. Pt voiced no concerns with homegoing. Educated patient on importance of continuing to mobilize throughout hospital stay. OT screen and discharge consult. AMISHA Mora/L * Kalli Barneshele - 12/12/2024 9:11 AM EDT Images from the original note were not included. Dietitian vs DietaryTech: Dietary TechDiet Strip Tank Tender Nutrition Screening Reason for visit: Positive nutrition screen -Weight loss=poor po intake Assessment Admitting Diagnosis: No admission diagnoses are documented for this encounter. 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 5' 7 Weight Only Weight 12/09/2024 12:06 PM 140 lb 12/11/2024 11:43 AM 140 lb UBW-140# per patient BMI Screening value: 21 or greater - 0 points % Weight Loss: None Weight Loss Screening Value: None Comments: Spoke with patient. Intake-appetite fishing captain decreased, order breakfast currently. No food allergies. Weights-see above. Monitor diet advance-intake. Number of Points: 0 Nutritional Plan of Care: Less than or equal to 6 points: At this time, patient is at low nutritionrisk. DTR to provide routine follow up. Will continue to follow, Time spent on patient care: 30 minutes SAMANTHA Patterson (Nutrition) Pager #[phone]. [1] Past Medical History: Diagnosis Date Bile leak 2018 Cholecystitis. S/p cholecystectomy complications; biliary tree destruction. Stents placed, cholecystostomy for 6 weeks. Eduard-en-y with [facility] in 2018. Then G tube 2020 for malnourrishment. Removed during chemo in 2021 got infected. Hodgkin's disease in remission 2021 Treatment 07/2021 - 12/2021; remisision in 03/2022. ABVD then AVD. Right. clavicular nodectomy. Migraine without aura and without status migrainosus, not intractable Emmgality 6-7 years ago * Leticia Bethea, PT - 12/11/2024 4:45 PM EDTAssociated Order(s): IP PHYSICAL THERAPY SERVICE REQUEST PHYSICAL THERAPY ACUTE EVALUATION Referral received, chart reviewed. Patient seen from 4:45 PM to 5:00 PM on [address] [id number] unit for 15 minutes. Admit date/time: 12/09/2024 7:36 AM Reason for Admit: 29 year old, 1995, with abdominal pain times 5 days and weight loss. Recently seen at however due to insurance reasons needed to come here per patient. Diagnosis: Abdominal pain C/f overflow diarrhea Status post cholecystectomy Status post Eduard-en-Y Status post G tube. Subacute Diarrhea Acute concern for anastomotic ulcer versus small-bowel obstruction given extensive surgical history. Differential also includes inflammatory bowel disease, microscopic colitis, malabsorption status post Eduard-en-Y. Gastroenterology currently following. Precautions: FULL CODE Delirium NPO Diet IPMP: Level 4 Procedures this admit: Imaging XR ABDOMEN SUPINE + ERECT 2 VIEWSPRO 12/10/2024 12:39 PM IMPRESSION: No free intraperitoneal air or significant air-fluid levels on the upright view. Multiple nonspecific gaseously prominent loops of bowel are present throughout the abdomen with a presumed surgical anastomosis in the right hemiabdomen. No significant stool burden. CT ABDOMEN PELVIS W IV CONTRAST; 12/05/2024 5:22 pm 1. No acute abnormality within the abdomen or pelvis. 2. Postsurgical changes of cholecystectomy with small amount of pneumobilia. 3. Postsurgical changes of prior small bowel resection without evidence of obstruction. 4. Additional chronic/incidental findings detailed as above. US RIGHT UPPER QUADRANT; 12/05/2024 4:42 pm 1. Status post cholecystectomy. 2. Nonobstructing right-sided nephrolithiasis. No hydronephrosis. Past Medical and Surgical History: HOVER for in depth abdominal history. PMH includes: complex GI hx, Hodgkins lymphoma, s/p chemo, RnY hepaticojejunostomy, CBD stricture s/p choleystectomy, resection of extrahepatic bile duct, PEG J, non epileptic seizures. Hx/o C Difficile. Medical History[1] Surgical History[2] Identification was verified by patient verbalizing his/her name and date of . 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 Patient's mother and friend visiting during PT evaluation with patient's verbal permission. 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 Home: 3 to 4 steps to enter with rails. Also w/c accessible for family member. 1 flight of steps to bedroom/bathroom with rails. Assistance available: Mom as needed. Equipment available: none OBJECTIVE: Appearance: Supine in bed, hospital gown, gripper socks, IV infusing. Behavior: WFL Oriented x 4 Follows 2 step commands consistently Pain: Site/Location: no c/o; Pain Scale: 0/10 Pain Relief Interventions Implemented: None required; No pain at this time Passive ROM: WFL Strength/Active ROM: WFL Mobility: Rolling to right: independent Sidelying to sit: independent Sitting balance: Good Sit to stand: independent Transfers: independent Ambulation/Gait: independent with ambulation, no device, 300 feet. Normal alternating gait pattern and yosef. Stairs: up and down 4 steps with 1 rails with Modified [place] with use of rail. Endurance: WFL Patient/Family Education: Instructed Patient in roles of therapy. Patient up in bed with Phone and call light in reach. Family members were sitting in chairs, bed was patient's option. DME: With Patients permission ordered no equipment via [employer] Order. If any questions contact [facility] DME Provider at [phone]. 12/11/2024 6 Clicks Basic Mobility PT Difficulty turning over in bed 4 Difficulty sitting down and standing up from a chair with arms 4 Difficulty moving from lying on back to sitting on the side of the bed 4 Help from another person moving to and from bed to a chair 4 Help from another person to walk in hospital room 4 Help from another person climbing 3-5 steps with a railing 4 PT 6 Clicks Score 24 6 Click Score Guidelines: 1 - Total = Requires total assistance, or cannot do at all. 2 - A lot = Requires a lot of help (maximun to moderate assistance) Can use assistive devices. 3 - A little = Requires a little help (supervision, minimal assistance) Can use assistive devices. 4 - None = Does not require any help and does the activity independently. Can use assistive devices. ASSESSMENT: Negro Sabillon is a 29 year old yo female is performing at baseline. No PT needs. Patient is functionally appropriate for discharge home once medically cleared. No further Physical Therapy services recommended at this time. PLAN OF CARE: [place] Acute Physical Therapy Services. The evaluation findings and treatment plan were discussed with the patient/family. The patient/family indicated understanding and agreement with the plan. Leticia Bethea, PT NA = Not Assessed, I = Independent, SC = Modified Independent, Sup = Supervised, Set up = Physical Assistance for Set-up Only, Min = Minimal Assistance, Mod = Moderate Assistance, Max = Max assistance; Dep = Dependent; AROM = Active Range of Motion; PROM = Passive Range of Motion; MMT = Manual Muscle Test; LE = Lower Extremity [1] Past Medical History: Diagnosis Date Bile leak 2018 Cholecystitis. S/p cholecystectomy complications; biliary tree destruction. Stents placed, cholecystostomy for 6 weeks. Eduard-en-y with [facility] in 2018. Then G tube 2020 for malnourrishment. Removed during chemo in 2021 got infected. Hodgkin's disease in remission 2021 Treatment 07/2021 - 12/2021; remisision in 03/2022. ABVD then AVD. Right. clavicular nodectomy. Migraine without aura and without status migrainosus, not intractable Emmgality 6-7 years ago [2] Past Surgical History: Procedure Laterality Date Bunyunectomy BYPASS, GASTRIC EDUARD-EN-Y 2018 For complications status post 2018 cholecystectomy COLONOSCOPY AND ESOPHAGOGASTRODUODENOSCOPY N/A 12/11/2024 Preliminary Information: Procedure: ESOPHAGOGASTRODUODENOSCOPY AND COLONOSCOPY; Surgeon: Stella Weinstein DO; Location: [facility]; Service: Gastroenterology GASTROSTOMY, OPEN; W/CONSTRUCTION, GASTRIC TUBE 2020 Placed in 2020 for malnourishment secondary to Eduard-en-Y. In place until 2021 when it was removed secondary to infection secondary to chemotherapy immunosuppression. * Devonte Ro MD - 12/10/2024 10:27 AM EDTAssociated Order(s): IP GASTROENTEROLOGY CONSULT Images from the original note were not included. Department of Gastroenterology and Hepatology Consult H&P Note GI Attending Physician: Dr. Hermann Jerome MD Patient: Negro Sabillon Location: [id number] Reason for Consult: abdominal pain, complex GI hx, hx of Hodgkins lymphoma, s/p chemo, RnY hepaticojejunostomy, CBD stricture s/p cholecystectomy, resection of extrahepatic bile duct, PEG-J. HPI Negro Sabillon is a 29 year old female with history notable for hodgkin's lymphoma for whom gastroenterology was consulted for abdominal pain. Presented for 5 days of abdominal pain, previously was at and care transferred d/t insurance, previously was at for 4 days. +nausea/vomiting/diarrhea. 3 weeks of diarrhea. On interview, still having pain. Diarrhea has been improving over last few days, attributed to decreased PO intake. Pain is epigastric and RUQ, present even on light palpation, began around week after diarrhea began. Eating seems to make the diarrhea and the pain worse, says that she has needed to be right beside the toilet while at home. +6-7 episodes of diarrhea daily. Pt describes diarrhea as larger volume, foul smelling but not oily. No black or bloody stools. No fever or chills but has been having night sweats, shirt has been drenching. Had same constellation of symptoms around 1 year ago, evaluated by [facility] at the time, had negativeupper endoscopy, says that never figured out a diagnosis, rest of work-up was unremarkable, initially planned for colonoscopy but symptoms had improved. Previous to these symptoms was eating fine, pain was controlled, was gaining weight. Has not had a PEG-J for 1-2 years. Denies issues with constipation at baseline even though she takes Dilaudid daily. No recent camping, no exotic foods, no travel, no recent antibiotics. States that she was tested for c diff and it was negative. Denies hx of IBD. Has had pancreatitis before. Seen by [facility], last seen 06/23/2023, at the time was having chronic abdominal pain and weight loss, plan was for EGD. Past medical history: stage IIB Hodgkin's lymphoma s/p chemotherapy 01/2022. Previous abdominal surgeries: acquired CBD stricture after cholecystectomy (2016) status post multiple stents, resection of extrahepatic bile duct, retrocolic Eduard-en-Y hepaticojejunostomy (Dr. Clarke) (2019), s/p PEG-J tube in place This admission, patient has been afebrile, hemodynamically stable, on room air. Hepatic tests, tbili 1.2 otherwise unremarkable. BMP unremarkable. CBC unremarkable. Lipase 9. Initial labs from 12/05, notable for mild hypokalemia. 11/29 TSH 0.33, fT4 0.62 12/03/24: Calprotectin 15 H pyl stool ag negative. C diff negative Giardia negative No ova cysts or parasites seen. No salmonella or shigella. No campylobacter. Folate 6.4. B12 469, normal. No iron deficiency. Negative celiac screen 08/23/23 Review Of Systems Positives as noted in HPI. All other systems were reviewed and negative. Medical and Surgical Histories Medical History[1] Surgical History[2] Family History: family history is not on file. Social History:Social History[3] Allergies and Current Medications Allergies[4] Current Medications[5] Physical Exam BP (!) 159/109 Pulse 72 Temp 98.5 ??F (36.9 ??C) (Oral) Resp 16 Ht 5' 7 (1.702 m) Wt 140lb (63.5 kg) SpO2 98% BMI 21.93 kg/m?? General: pleasant, NAD, nontoxic appearing, laying down in bed. HEENT: normocephalic, atraumatic, MMM, no conjunctival icterus Pulm: no increased WOB on room air, CTAB Card: RRR Abdomen: soft, epigastric and RUQ tenderness, nondistended Extremities: no MURIEL, no gross deformity Skin: WWP, no jaundice Neuro: Alert, awake, answering questions appropriately. Labs CBC (last 3 years, up to 8 values) 12/09/2024 8:03 AM WBC 6.6 RBC 4.87 Hgb 13.8 Hct 38.9 MCV 80 RDW 12.8 Plt 259 BMP (last 3 years, up to 8 values) 12/09/2024 8:03 AM Na 140 K 3.7 Cl 102 CO2 28 Gap 14 Glu 94 BUN 17 Cr 0.67 Ca 9.6 eGFR 121 LFT's (last 3 years, up to 8 values) 12/10/2024 12/09/2024 3:23 AM 8:03 AM T Prot 6.6 7.2 Albumin 4.4 4.9 D Bili 0.10 0.16 T Bili 0.6 1.2 Alk Phos 53 55 ALT 7 9 AST 9 10 No results found for: INR Imaging XR ABDOMEN SUPINE + ERECT 2 VIEWSPRO 12/10/2024 12:39 PM IMPRESSION: No free intraperitoneal air or significant air-fluid levels on the upright view. Multiple nonspecific gaseously prominent loops of bowel are present throughout the abdomen with a presumed surgical anastomosis in the right hemiabdomen. No significant stool burden. CT ABDOMEN PELVIS W IV CONTRAST; 12/05/2024 5:22 pm 1. No acute abnormality within the abdomen or pelvis. 2. Postsurgical changes of cholecystectomy with small amount of pneumobilia. 3. Postsurgical changes of prior small bowel resection without evidence of obstruction. 4. Additional chronic/incidental findings detailed as above. US RIGHT UPPER QUADRANT; 12/05/2024 4:42 pm 1. Status post cholecystectomy. 2. Nonobstructing right-sided nephrolithiasis. No hydronephrosis. GI Procedures EGD 07/13/2023 12:47 PM EDT Impression: - Normal esophagus. - Old gastrostomy [...] and recommendations were discussed with the patient. FINAL DIAGNOSIS A. Duodenum, biopsy: - Duodenal mucosa with no diagnostic abnormality. B. Stomach, biopsy: - Gastric antral and oxyntic mucosa with no diagnostic abnormality. ASSESSMENT AND RECOMMENDATIONS # abdominal pain # persistent to chronic diarrhea Given pt's GI surgical history, pt may be at risk for anastomotic ulcer, or other ulcer contributing to her symptoms. Pt also potentially at risk for SIBO. Would benefit from upper endoscopy for further evaluation. Ddx for persistent to chronic diarrhea: IBD, microscopic colitis, malabsorption, postcholecystectomy diarrhea, chronic infections, medication-related, functional disorder. Pt would also benefit from colonoscopy for further evaluation. - Plan for EGD + colonoscopy this admission, plan for 12/11/24, please see fellow addendum for specific instructions regarding bowel prep. - Check fecal pH, fecal electrolytes including fecal magnesium, fecal elastase, fecal fat. - Outpatient GI follow-up Discussed with GI attending, Dr. Hermann Jerome MD . Please don't hesitate to reach out with questions or concerns. We will continue to follow with you. Ellen Hinton, DO Internal Medicine PGY-2 12/10/24 Date of Service: 12/10/2024 10:55 AM GI FELLOW ADDENDUM Negro Sabillon is a 29 year old female with history notable for CCY c/b biliary strictures/CBD stricture s/p stents, extrahepatic bile duct resection and Eduard-en-Y hepaticojejunostomy, prior PEG-J, Hodgkin's lymphoma (07/2021) s/p chemo. GI c/s for AoC abdominal pain I/s/o complex GI history -Pt used to follow with GI at [facility] but unable to follow d/t insurance. Lives in [place] and was told by her local GI to follow with a larger GI practice d/t her complex abdominal surgery. -reports ~3 weeks of watery diarrhea. About 6-7 times per day with episodes of incontinence. Associated with epigastric pain that developed a week after Sx. No melena, hematochezia. -She reports was told had overflow incontinence by her PCP since had imaging showing large stool burden. She started linzess for a few days without improvement in her symptoms. -She was admitted at but ultimately transferred at [facility] d/t insurance issues. -She reports having night sweats and saw her outpatient oncologist d/t hx of lymphoma and thought 2/2 prior chemotherapy and not c/f recurrence of malignancy. -Home meds: effexor, wellbutrin, ambien, linzess Imaging -US LiveR: s/p CCY -CT A/P: no acute abnormality, post surgical changes 2/2 CCY and SBR. -Pt reports was told had large stool burden on prior imaging, unable to find result GI procedures -EGD 06/2023: normal esophagus, old gastrotomy scar, normal stomach (Bx: unremarkable) /duodenum (Bx: unremarkable). # Abdominal pain #C/f overflow diarrhea #Subacute diarrhea -Unable to view radiographic images at OSH. -Past 3-4 weeks, watery, large volume, > 6 times a day. Worst post-prandial -Sx likely secondary to constipation and diarrhea. Etiology can be overflow (prior c/f overflow andconstipation; inc risk for constipation I/s/o home hydromorphone use), bile salt diarrhea (hx of CCY), IBS (may have exaggerated gastro-colic reflex), infectious (11/2024 had neg c. Diff, stool Cx, Stool O+P, fecal jaylon) -Low c/f SIBO as would expect more severe nausea and bloating. -TSH 0.33 (midly low) and Free T4 wnl -No melena, hematochezia, hematemesis. CBC stable. H pylori stool Ag neg (11/2024) -celiac panel 08/2023 wnl RECs -KUB to access stool burden to access if overflow -EGD to evaluate dyspepsia I/s/o notable GI surgical Hx as patient at risk for anastomotic ulcer. Also to evaluate for enteritis, gastritis, esophagitis, or PUD contributing to constellation of Sx Discomfort can be 2/2 acute diarrhea. -colonoscopy with random bx to evaluate MC. Pt is on SNRI that can inc risk of MC -GI will coordinate outpatient follow-up. Pending results, consider imodium PRN. If no improvement,consider empiric trial of cholecystyramine for bile silt diarrhea -Check fecal elastase to eval for PI -stool osm/lyte, stool Mg -Stool fat -CLD today. NPO @ [facility] -hold DVT PPX this evening and tomorrow Case discussed with GI attending, Dr. Hermann Jerome MD . Primary team updated . Please don't hesitate to reach out with questions or concerns. We will continue to follow with you. Devonte Ro MD Gastroenterology Fellow, PGY 4 GI Consult Pager (nights and weekends) [phone] SPLIT DOSE PREP (Ensure prep is discussed with patient): OPTION 1: Day prior to colonoscopy ALL DAY: clear liquid diet only (no red or purple) AT 4PM: Patient should drink 2L of colyte (glass every 10-15 minutes until 2L gone) - After one hour, please have nurse check on patient to ensure about half is completed, if not, primary team should be notified AT 5PM: Give patient Zofran 4mg or similar anti-emetic. Anti-emetic may be HELD if patient not nauseated and tolerating prep well AT 9PM: Patient should drink the rest of the 2L of prep until all gone -After one hour, please have nurse check on patient to ensure about half is completed, if not, primary team should be notified ---Have nurse place in ice bath (don't add ice directly to the colyte). --- strict NPO at midnight, except for more Colyte if needed. --- If stools not at goal appearance by 6AM, please give another 2L of prep to drink until 10AM ---If stools still not at goal appearance by 10AM, can consider a tap water enema, but please notify GI fellow first If above prep NOT tolerated (nausea/vomiting, patient declining due to flavor/volume of prep, etc.), please try alternative as below: OPTION 2: Day prior to colonoscopy ALL DAY: clear liquids diet only (no red or purple) AT 3PM: give 2 dulcolax tablets (10mg total) AT 5PM: Mix 15 17g (255g total) miralax packets in 64oz of Gatorade (NOT RED) and have patient drink one glass every 10-15 min until gone (should take about 2 hours) -After one hour, please have nurse check on patient to ensure about half is completed, if not, primary team should be notified AT 6PM: Give patient Zofran 4mg or similar anti-emetic. Anti-emetic may be HELD if patient not nauseated and tolerating prep well AT 8PM: give 2 dulcolax tablets (10mg total) ---If stool not at goal appearance (see below) by 6AM, can give 7 17g miralax packets mixed in 32ozof Gatorade (NOT RED) and have patient drink until no later than 10AM. ---If stools still not at goal appearance by 10AM, can consider a tap water enema, but please notify GI fellow first --please ensure above instructions in administration comments of prep orders and communication orders when ordered for nurse to be aware Goal stool appearance following prep: [1] History reviewed. No pertinent past medical history. [2] No past surgical history on file. [3] [4] Allergies Allergen Reactions Benadryl [Diphenhydramine] [5] Current Facility-Administered Medications: HYDROmorphone (DILAUDID) 1 mg/mL injection, 1 mg, Intravenous, Q4H PRN, Adolfo Rodriguez MD, 1 mg at 12/10/24 1427 psyllium (METAMUCIL SUGAR FREE) 51.7 % packet, 1 Packet, Oral, 2x Daily, Adolfo Rodriguez MD, 1 Packet at 12/10/24 1444 buPROPion (WELLBUTRIN) tablet, 100 mg, Oral, 2x Daily, John Ramirez MD, 100 mg at 12/10/24 0808 venlafaxine (EFFEXOR XR) 24 hour capsule, 225 mg, Oral, Every morning, John Ramirez MD, 225 mg at 12/10/24 0808 dextrose 5 % and NaCl 0.9 % iv infusion, , Intravenous, Continuous, John Ramirez MD, Last Rate: 125 mL/hr at 12/10/24 1427, New Bag at 12/10/24 1427 ondansetron (ZOFRAN) 4 MG/2ML injection, 4 mg, Intravenous, Q6H PRN, John Ramirez MD, 4 mg at 12/09/242008 metoclopramide (REGLAN) 5 MG/ML injection, 10 mg, Intravenous, Q6H PRN, John Ramirez MD, 10 mg at 12/10/24 032 acetaminophen (TYLENOL) tablet, 650 mg, Oral, Q4H PRN, John Ramirez MD ketorolac (TORADOL) 15 MG/ML injection, 15 mg, Intravenous, Q6H PRN, John Ramirez MD, 15 mg at 12/10/24 0808 famotidine (PEPCID) tablet, 20 mg, Oral, Daily PRN, John Ramirez MD LORazepam (ATIVAN) tablet, 1 mg, Oral, At Bedtime PRN, John Ramirez MD Current Outpatient Medications: ondansetron (ZOFRAN-ODT) 4 MG disintegrating tablet, Take 1 Tablet by mouth every 8 hours as neededfor Nausea., Disp: 12 Tablet, Rfl: 0 cefUROXime (CEFTIN) 250 MG tablet, Take 1 Tablet by mouth 2 times daily for 7 days., Disp: 14 Tablet, Rfl: 0 HYDROmorphone (DILAUDID) 2 MG tablet, Take 2 mg by mouth as needed for Pain., Disp: , Rfl: Venlafaxine HCl (EFFEXOR XR ORAL), Take 225 mg by mouth every morning., Disp: , Rfl: buPROPion (WELLBUTRIN) 100 MG tablet, Take 100 mg by mouth 2 times daily., Disp: , Rfl: zolpidem (AMBIEN) 10 MG tablet, Take 10 mg by mouth at bedtime as needed for Sleep., Disp: , Rfl: linaclotide (Linzess) 72 MCG CAPS capsule, Take 72 mcg by mouth daily., Disp: , Rfl: Cosigned by Hermann Chavez MD at 12/10/2024 6:34 PM EDT Associated attestation - Hermann Chavez MD - 12/10/2024 6:34 PM EDT The patient was personally seen and evaluated. The case was discussed in detail with the fellow; including, but not limited to the presenting complaint, past history, physical findings, labs and radiological findings. The patient was counseled on the possible differential diagnoses and testing needed to arrive at a diagnosis or a treatment plan. The above notes reflect the results of these discussions and my personal involvement in the case. Reva Chavez MD, FACP [facility] Gastroenterology & Hepatology documented in this encounter ED Notes * Jennifer Tomlin RN - 12/11/2024 6:17 AM EDT Stool is liquid soft but still dark more Colyte ordered * Jennifer Tomlin RN - 12/11/2024 3:25 AM EDT Patient went to drink the last of the medication and found a bug in the bottom. Patient let this nurse know, patient having more frequent bowel movements. Care continues * Jennifer Tomlin RN - 12/10/2024 11:54 PM EDT Patient attempted to use the restroom for a bowel movement was not successful, still drinking prep,pain meds given. Care continues * Jennifer Tomlin RN - 12/10/2024 8:43 PM EDT Patient progressing in drinking bowel prep regimen, continued encouragement given at present. No bowel movement yet. Care continues. * John Ramirez MD - 12/09/2024 7:33 AM EDT Images from the original note were not included. Emergency Department Note HISTORY OF PRESENT ILLNESS Chief Complaint Patient presents with Abdominal pain Patient c/o abdominal pain x5 days. Seen recently at but due to insurance reasons needed to comehere per patient. not needed - patient preferred language is Swiss. The history is provided by the Patient. Negro Sabillon is a 29 year old female presenting to the ED with upper central abdominal pain starting 5 days ago. Pt states she just left after needing her care transferred due to insurance, and previously was there for 4 days. She endorses nausea/vomiting and diarrhea, specifying that the diarrhea started around 3 weeks ago. She reports that eating solid foods causes severe pain and diarrhea, and that the last time she was able to eat was 6 days ago. She denies blood anywhere as well as lower abdominal pain. She notes she's had her bile duct reconstructed and her last abdominal surgery was in 2019 at [facility]. She endorses prior cholecystectomy. Pt states she does not have a port and is noton chemotherapy, and although she had a G tube in the past it has since been removed. She has a PMHx of chronic abdominal pain and Hodgkin's lymphoma in remission. REVIEW OF SYSTEMS Review of Systems Gastrointestinal: Positive for nausea, vomiting, abdominal pain (upper middle) and diarrhea. Negative for blood in stool and hematemesis. Genitourinary: Negative for hematuria. All other systems were reviewed and are negative at this time. PAST HISTORY Pertinent Past History: No pertinent past medical history. No pertinent problem list. Pertinent Family History: No pertinent family history. Pertinent Social History: No pertinent social history. PHYSICAL EXAM BP 164/93 Pulse 61 Temp 98 ??F (36.7 ??C) (Oral) Resp 18 SpO2 100% Physical Exam HENT: Head: Normocephalic and atraumatic. Eyes: Conjunctiva/sclera: Conjunctivae normal. Cardiovascular: Rate and Rhythm: Normal rate and regular rhythm. Heart sounds: Normal heart sounds. Pulmonary: Effort: Pulmonary effort is normal. Breath sounds: Normal breath sounds. Abdominal: General: Bowel sounds are normal. Palpations: Abdomen is soft. Tenderness: There is abdominal tenderness in the right upper quadrant and epigastric area. Musculoskeletal: General: Normal range of motion. Cervical back: Normal range of motion and neck supple. Skin: General: Skin is warm and dry. Neurological: Mental Status: She is alert and oriented to person, place, and time. Psychiatric: Mood and Affect: Mood and affect normal. Medical Decision Making and Emergency Department Course Negro Sabillon is a 29 year old female presenting to the ED with abdominal pain after she remained inpatient at for several days and then left given no bed available at [facility]. On presentation here, she does appear to be clinically dehydrated and has tenderness in epigastric and RUQ region. US and CT abdomen at on 12/05/24 unremarkable. Issue is that she is not tolerating po intake as she takes hydromorphone po take home Labs with hyperbilirubinemia that is new. However, I have a low suspicion for ascending cholangitis. She is s/p cholecystectomy. Has evidence of UTI and although low suspicion for pyelonephritis, will treat with rocephin while not tolerating po intake. Despite multiple antiemetics, patient not able to tolerate po intake. Will place in CDU as she was almost discharged from the ED, would likely benefit for 1 more night of IVF and IV antiemetics. I suspect after tolerating po intake, can be discharged with abx for UTI and can take home hydromorphone for pain once at home. Medications HYDROmorphone (DILAUDID) 1 mg/mL injection (1 mg Intravenous Given 12/09/24 0758) lactated ringers iv bolus (0 mL Intravenous IV Stop 12/09/24 1133) ondansetron (ZOFRAN) 4 MG/2ML injection (4 mg Intravenous Given 12/09/24 0758) droPERidol (INAPSINE) 2.5 MG/ML injection (1.25 mg Intravenous Given 12/09/24 0942) HYDROmorphone (DILAUDID) 1 mg/mL injection (1 mg Intravenous Given 12/09/24 0941) cefTRIAXone (ROCEPHIN) 1,000 mg in sodium chloride 9.6 mL IV push (0 mg Intravenous IV Stop [id number]) Imaging results as below: ED Course as of 12/09/24 1156 Mon Dec 09, 2024 0731 EMR reviewed - PMHx noted to be significant for - ongstanding history of abdominal issues, including complicationsfrom gallbladder removal requiring stenting of her bile ducts due to stenosis, pancreatitis, and the need for a PEG tube due to malnutrition. She was evaluated in ED on 12/05/24, had work up there and was to be admitted and transferred to [facility] for insurance reasons Ela Dec 05, 2024 1640 Potassium is 3.3. Magnesium is normal. Once patient is finished with CT and is able to tolerate p.o., will replete with oral potassium pills. [TAILOR FITTER] 0 US right upper quadrant Nonobstructing right-sided nephrolithiasis otherwise unremarkable. [TAILOR FITTER] 191 CT abdomen pelvis did not show any acute abnormality of the abdomen pelvis. [facility] notable for po dilaudid 2mg last Rx on 11/24/24 [JE] 0849 HCG, Urine: Negative Not [JE] 0849 Leuk. Esterase(!): Positive Evidence of UTI, will treat [JE] 0849 WBC: 6.6 [JE] 0849 Hemoglobin: 13.8 No anemia [JE] 0849 Bilirubin, Total(!): 1.2 Slight elevation - unremarkable CT from on 12/05/24 - elevated from 0.9 from ED on 12/08/24 [JE] 0851 Lipase(!): 9 No pancreatitis [JE] ED Course User Index [JE] John Ramirez MD 11:51 AM Order written for the patient's transfer to the CDU. Nursing triage and assessment notes reviewed and incorporated. IMPRESSION AND DISPOSITION PLAN Clinical Impression Diagnosis Comment Hyperbilirubinemia [E80.6] Chronic abdominal pain [R10.9, G89.29] Nausea and vomiting, unspecified vomiting type [R11.2] New Prescriptions No medications on file Disposition: Disposition: Admitted to CDU (Clinical Decision Unit) for observation and continued treatment / evaluation to determine the need for inpatient admission.. Report called to The patient has received a medical screening examination and within reasonable clinical confidence the patient was stabilized within the capabilities of the emergency department and requires admission / observation. Counseling: Spoke with the patient and discussed today???s findings, in addition to providing specific details for the plan of care and expected course. They were given the opportunity to ask questions. I advised the patient that the emergency evaluation and treatment provided today doesn't end their need for medical care. It is very important that they follow- up with their primary care provider. The plan of care was mutually agreed upon with the patient. The patient and/or family were given the opportunity to ask questions. All questions asked today in the ED were answered to the best of my ability with today's information. I specifically advised the patient to return to the ED for changing or worsening symptoms, worrisome new symptoms, or for any complaint specific precautions listed on the discharge paperwork. John Ramirez SCRIBE ATTESTATION 12/09/2024, 11:56 AM. This note is prepared by Lisa Jean acting as Scribe for John Hawk All medical record entries made by the Scribe were at my direction and personally dictated by me. Donny reviewed the record and confirm that the note above accurately reflects all work, treatment, procedures, and medical decision making performed by me. 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 difficile who presents for abdominal pain and weight loss In the ED, patient was hypertensive to 164/93, afebrile, saturating well on room air, in no acute distress. Physical exam performed by ED provider significant for subjective hypovolemia, RUQ and epigastric abdominal tenderness. Labs notable for urine leukocyte esterase/WBCs, total bilirubin 1.2 from 0.6. Xray multiple nonspecific gaseously prominent loops of bowel are present throughout the abdomen with a presumed surgical anastomosis in the right hemiabdomen. Patient was given IV fluids, zofran, dilaudid and started on ceftriaxone. Patient was recommended for admission to [facility] for medical management. Upper and lower endoscopy completed without complication. No signs of anastomosis ulcers or other inflammatory bowel disease. No sign of biliary complications. Biopsies taken from multiple sites, pathology sent for microscopic colitis. Physician called to bedside overnight on 12/12/2024 for 10/10 abdominal pain, nausea, vomiting. Patient was given increased dose of Dilaudid. During the night of 12/13/2024, rapid response team was called to bedside for unresponsiveness, severe range blood pressures to 180s systolic. Not responsive to voice or painful stimuli. Patient awokewith right-sided facial droop, right- sided hemianopia. On transport to CT suite, 5-10 seconds seizure-like activity was witnessed. Was subsequently assessed by neuro and family medicine teams. Pt hasno similar Hx of similar symptoms. No observable activities of unresponsiveness during the daytime of Sep 27. Her symptoms were deemed likely to be sequelae from complex migraines rather than stroke / CVD. * Care Plan Note - Lo Miranda DO - 12/11/2024 10:35 PM EDT Notified by nurse abdominal pain 12/27 for last week Worse in RUQ BP 144/96 (BP Location: left arm) Pulse 93 Temp 98.5 ??F (36.9 ??C) (Oral) Resp 18 Ht 5' 7 (1.702 m) Wt 140 lb (63.5 kg) LMP 12/02/2024 (Approximate) SpO2 100% BMI 21.93 kg/m?? Abdominal exam reassuring non tender to palpation no guarding or rebound tenderness CT ab 12/05 reviewed Impression 1. No acute abnormality within the abdomen or pelvis. 2. Postsurgical changes of cholecystectomy with small amount of pneumobilia. 3. Postsurgical changes of prior small bowel resection without evidence of obstruction. 4. Additional chronic/incidental findings detailed as above. Colonoscopy from today reviewed IMPRESSION: Healed site of PEG tube in antrum Otherwise normal upper endoscopy and colonoscopy RECOMMENDATIONS: Follow up pathology results Okay to resume prior diet from GI standpoint If symptoms continue, patient can follow up in GI tract to discuss further work up vs trial of cholestyramine for bile acid diarrhea Plan - takes dilaudid 2mg q6 prn at home for leg pain - tried home dose, became nauseated and threw up - zofran for nausea, increase to dilaudid 4mg q6 prn, trial bentyl if interested - serial abdominal exams * OP Note - Stella Weinstein DO - 12/11/2024 1:00 PM EDT Negro Sabillon 29 year old Surgical Contact Serial Number: [id number] Location: ENDO 02 Date: 12/11/2024 COGNOS LEAD: Stella Weinstein DO ATTENDING:Stella Weinstein DO Procedure(s): ESOPHAGOGASTRODUODENOSCOPY AND COLONOSCOPY INSTRUMENT: Scope #Adult gastroscope COLONOSCOPE #Adult colonoscope SEDATION: Anesthesia Assisted Pre-Op Diagnosis Codes: * Dyspepsia [R10.13] * Chronic diarrhea [K52.9] INDICATIONS: This is a 29 year old female with hx of Hodgkins lymphoma, s/p chemo, RnY hepaticojejunostomy, CBD stricture s/p cholecystectomy, resection of extrahepatic bile duct, PEG-J (now out) presents for inpatient EGD and colonoscopy for abdominal pain and diarrhea. While monitoring the patient with EKG, pulse oximetry and BP, endoscope passed to second portion ofduodenum by direct visualization. JEJUNUM: Proximal jejunum reached but anastomotic site likely more distal. No ulcerations noted DUODENUM: bulb and descending portion appeared normal. STOMACH: pyloric channel, antrum, body, fundus and cardia, including retroflexed revealed a punctate depression vs fistulous tract in antrum likely where prior PEG tube site was. ESOPHAGUS: Diaphragmatic hiatus was 40 cm from incisors and GE junction (upper margin of gastric folds) was at 40 cm from incisors. Squamocolumnar junction was at 40 cm from incisors. Mucosa appearednormal. Patient was turned for colonoscopy. Patient examined. Anus and digital rectal exam were Normal. While monitoring the patient with EKG, pulse oximetry and BP, colonoscope passed into cecum, which was identified by ileo-cecal valve, appendical orifice and transillumination of right lower quadrant. Prep was Collbran Bowel Prep Right Colon: Entire colon seen well, Collbran Bowel Prep Transverse Colon: Entire colon seen well, Collbran Bowel Prep Left Colon:Entire colon seen well or Excellent (Small volume of clear liquid or >95% of srface seen). FINDINGS: Random biopsies taken throughout colon to rule out microscopic colitis (Bottle A) Terminal Ileum: Intubated and appeared normal Cecum: Normal. Ascending Colon: Normal. Hepatic Flexure: Normal. Transverse Colon: Normal. Splenic Flexure: Normal. Descending Colon: Normal. Sigmoid Colon: Normal. Rectum: Normal. Retroflexed Views: Rectum did not show internal hemorrhoids. Hyperbilirubinemia (Primary Diagnosis) [160775] Chronic abdominal pain [725536] Nausea and vomiting, unspecified vomiting type [8732527] Acute cystitis without hematuria [662071] Dehydration [276.51.ICD-9-CM] Dyspepsia [850438] Chronic diarrhea [591013] Epigastric pain [620889] ANATOMIC SPECIMEN: Yes SPECIMEN: ID Type Source Tests Collected by Time Destination A : Random Colon, R/O Microscopic Colitis Tissue Colon SURGICAL GI ANATOMIC PATHOLOGY Stella Weinstein DO 12/11/2024 1351 PHOTOGRAPH TAKEN:yes COMPLICATIONS DURING PROCEDURE: None EBL (estimated blood loss): none IMPRESSION: Healed site of PEG tube in antrum Otherwise normal upper endoscopy and colonoscopy RECOMMENDATIONS: Follow up pathology results Okay to resume prior diet from GI standpoint If symptoms continue, patient can follow up in GI tract to discuss further work up vs trial of cholestyramine for bile acid diarrhea Inpatient GI team to sign off at this time, can page for further questions CC: Primary Care/Referring Physician(s): No primary care provider on file. PERSON COMPLETING NOTE: Stella Weinstein DO Patient meets criteria for discharge/transfer: Stella Weinstein DO * CDU Note - Costa Diaz MD - 12/11/2024 9:33 AM EDT Clinical Decision Unit Physician Note Pt was seen in ED and admitted to CDU for observation. Patient reports that the abdominal pain feels better compared to time of presentation. She is [address]% [address] done with the colonoscopy prep this morning. Denies any symptoms of dysuria EXAM BP 137/99 Pulse 85 Temp 97.4 ??F (36.3 ??C) (Temporal) Resp 16 Ht 5' 7 (1.702 m) Wt 140 lb (63.5 kg) LMP 12/02/2024 (Approximate) SpO2 100% BMI 21.93 kg/m?? Constitutional Vital signs reviewed, Alert, Awake and No acute distress Eyes Nonicteric and Noninjected HENT Mucous membranes moist Neck No stridor and No JVD Lungs Speaking in full sentences, No respiratory distress and No cyanosis Heart Regular rate and rhythm Abdomen Nondistended Deferred Extremities Normal peripheral perfusion and No significant edema Neuro Alert normally oriented and Normal speech Psych Good eye contact and cooperative Skin Warm and Dry CDU Course / MDM Nursing notes and vital signs were reviewed, along with the overnight course while in CDU. The chart was reviewed, and I reviewed the ED provider notes. The initial and subsequent labs were reviewed I reviewed the imaging that was completed on this visit prior to my evaluation GI recs yesterday: RECs -KUB to access stool burden to access if overflow -EGD to evaluate dyspepsia I/s/o notable GI surgical Hx as patient at risk for anastomotic ulcer. Also to evaluate for enteritis, gastritis, esophagitis, or PUD contributing to constellation of Sx Discomfort can be 2/2 acute diarrhea. -colonoscopy with random bx to evaluate MC. Pt is on SNRI that can inc risk of MC -GI will coordinate outpatient follow-up. Pending results, consider imodium PRN. If no improvement,consider empiric trial of cholecystyramine for bile silt diarrhea -Check fecal elastase to eval for PI -stool osm/lyte, stool Mg -Stool fat -CLD today. NPO @ [facility] -hold DVT PPX this evening and tomorrow CDU course today: Patient received an inpatient bed prior to completion of the prep, and was transferred upstairs in good condition, awaiting GI evaluation With shared decision making and in conversation with the patient, we felt that the most appropriatecourse was to admit. The patient agreed with this plan. Dispo: admit floor Clinical Impression Diagnosis Comment Hyperbilirubinemia [E80.6] Chronic abdominal pain [R10.9, G89.29] Nausea and vomiting, unspecified vomiting type [R11.2] Acute cystitis without hematuria [N30.00] Dehydration [E86.0] Dyspepsia [R10.13] Chronic diarrhea [K52.9] Epigastric pain [R10.13] Costa Diaz MD * CDU Note - Adolfo Rodriguez MD - 12/10/2024 8:39 AM EDT Images from the original note were not included. Clinical Decision Unit Physician Note Clinical Decision Unit - PROVIDER NOTE HISTORY OF PRESENT ILLNESS Patient is a 29 year old female complaining of abd pain. Pt st diarrhea 2 weeks ago then noted RUQ pain , present all the time but worse with taking food/fluids. past medical history of Hodgkins lymphoma (diagnosed in July 2021) s/p chemo, nonepileptic seizures,depression, Eduard-en-Y hepaticojejunostomy (Dr. Clarke), CBD stricture s/p cholecystectomy (multiple stents), resection of extrahepatic bile duct, PEG-J, migraines, serotonin syndrome s/p anesthesia, history of C. difficile who presents for abdominal pain (right sided) and weight loss Hx lymphoma and on chronic PO dilaudid, but is having pain despite that. We to [facility] ER 5 days ago with pain and would not be admitted there due to insurance, waited therefor transfer bed for last 5 day but no bed available, but signed out and came to ED. CT/US there with no acute findings. No GI eval there. PCP at [facility] and Prior GI visit at [facility] (see note 06/23/23 ) ASSESSMENT/PLAN: She is accompanied by her mother Ms. Sabillon is a 28 year old female with a past medical history of Hodgkins lymphoma (diagnosed in July 2021) s/p chemo, nonepileptic seizures, depression, Eduard-en-Y hepaticojejunostomy (Dr. Clarke),CBD stricture s/p cholecystectomy (multiple [...] reach out with any questions or concerns. The patient presented to the Emergency Department and was admitted to observation. The ED Chart from yesterday, 12/09/2024, was reviewed and incorporated. The review of systems was reviewed with the patient and is unchanged . REVIEW OF SYSTEMS The remainder of the review of systems is negative for other complaint. PHYSICAL EXAM Vitals Recorded in This Encounter 12/09/2024 1915 12/09/2024 1923 12/09/2024 2315 12/10/2024 0320 12/10/2024 0725 BP: 151/97 -- 159/103 157/106 145/100 Pulse: 80 -- 80 96 74 Resp: 18 -- 18 18 18 Temp: 98.6 ??F (37 ??C) -- -- -- 98.5 ??F (36.9 ??C) Temp src: Oral -- -- -- Oral SpO2: 97 % -- 96 % 99 % 99 % Pain Score: 7 7 -- -- -- Constitutional alert, awake and no acute distress HENT no sign of trauma and no stridor Eyes no discharge, nonicteric and noninjected Neck neck supple Lungs lungs clear and no wheezing Heart Regular rate and rhythm and No murmurs Abdomen RUQ TTP, no bruising, no rash, no rebound, no guarding. Bowel sounds present. No CVAT Extremities Full ROM all 4 extremities Neuro Alert normally oriented, Normal speech and Strength normal MEDICAL DECISION MAKING and CDU COURSE Review of External (Non- ED) Notes: Office visit from 06/23/23 [facility] reviewed and shows see above Cnp not needed - patient preferred language is Swiss.. ED Course as of 12/10/24 0839 Mon Dec 09, 2024 0731 EMR reviewed - PMHx noted to be significant for - ongstanding history of abdominal issues, including complicationsfrom gallbladder removal requiring stenting of her bile ducts due to stenosis, pancreatitis, and the need for a PEG tube due to malnutrition. She was evaluated in ED on 12/05/24, had work up there and was to be admitted and transferred to [facility] for insurance reasons [facility] Dec 05, 2024 1640 Potassium is 3.3. Magnesium is normal. Once patient is finished with CT and is able to tolerate p.o., will replete with oral potassium pills. [TAILOR FITTER] 1810 US right upper quadrant Nonobstructing right-sided nephrolithiasis otherwise unremarkable. [TAILOR FITTER] 191 CT abdomen pelvis did not show any acute abnormality of the abdomen pelvis. OARRS notable for po dilaudid 2mg last Rx on 11/24/24 [JE] 0849 HCG, Urine: Negative Not [JE] 0849 Leuk. Esterase(!): Positive Evidence of UTI, will treat [JE] 0849 WBC: 6.6 [JE] 0849 Hemoglobin: 13.8 No anemia [JE] 0849 Bilirubin, Total(!): 1.2 Slight elevation - unremarkable CT from on 12/05/24 - elevated from 0.9 from ED on 12/08/24 [JE] 0851 Lipase(!): 9 No pancreatitis [JE] ED Course User Index [JE] John Ramirez MD CT ABDOMEN PELVIS W IV CONTRAST; 12/05/2024 5:22 pm INDICATION: Signs/Symptoms:Abdominal pain. COMPARISON: Right upper quadrant ultrasound 12/05/2024 ACCESSION NUMBER(S): [id number] ORDERING CLINICIAN: FIDE ESQUIVEL TECHNIQUE: CT of the abdomen and pelvis [...] diastasis with small fat containing paraumbilical hernia. US RIGHT UPPER QUADRANT; 12/05/2024 4:42 pm INDICATION: Signs/Symptoms:RUQ pain. COMPARISON: None. ACCESSION NUMBER(S): [id number] ORDERING CLINICIAN: FIDE ESQUIVEL TECHNIQUE: Multiple images of the right upper [...] image 59 with twinkling artifact suggesting nephrolithiasis. ------ Today still with pain with taking po applesauce. Getting IV dilaudid since can't take PO well. GI consulted. Admit order placed since ongoing issue an in / ED since 12/05 Assessment & Plan: 29 year old female with acute on chronic abd pain of unclear etiology. Has complex GI history including Eduard-en-Y hepaticojejunostomy,CBD stricture s/p cholecystectomy (multiple stents), resection of extrahepatic bile duct, PEG-J, history of C. difficile Was in ED for 5 days with no improvement, left to come to ED. Still pain with taking PO. GI consulted, recs: Abdominal pain #C/f overflow diarrhea #Subacute diarrhea -Unable to view radiographic images at OSH. -Sx likely secondary to constipation and diarrhea. Etiology can be overflow (prior c/f overflow andconstipation; inc risk for constipation I/s/o home hydromorphone use), bile salt diarrhea (hx of CCY), IBS, infectious (11/2024 had neg c. Diff, stool Cx, Stool O+P, fecal jaylon) -TSH 0.33 (midly low) and Free T4 wnl -No melena, hematochezia, hematemesis. CBC stable. H pylori stool Ag neg (11/2024) -celiac panel 08/2023 wnl -KUB to access stool burden -consider outpt colonoscopy to evaluate diarrhea if chronic. Pt is on SNRI that can inc risk of MC. -metamucil daily to bulk stool -GI will coordinate outpatient follow-up. -Consider EGD to investigate etiology of abdominal pain d/t notable GI surgical Hx. Possible patient develop anastomic ulcer, enteritis, gastritis, esophagitis or PUD contributing to constellation ofsympotms. IMPRESSION AND DISPOSITION Clinical Impression Diagnosis Comment Hyperbilirubinemia [E80.6] Chronic abdominal pain [R10.9, G89.29] Nausea and vomiting, unspecified vomiting type [R11.2] Acute cystitis without hematuria [N30.00] Dehydration [E86.0] Disposition: Admitted to Floor: PENDING. Report called to The patient has received a medical screening examination and within reasonable clinical confidence the patient was stabilized within the capabilities of the emergency department and requires admission / observation. Counseling: Spoke with the patient and discussed today???s findings, in addition to providing specific details for the plan of care and expected course. They were given the opportunity to ask questions. Adolfo Rodriguez MD documented in this encounter Plan of Treatment Upcoming Encounters Date Type Department Care Team (Late st Contact Info) Description 12/19/2024 11:00 AM EDT Telemedicine [facility] Internal Medicine [address] [place] [phone] Marjorie Bustillos MD [address] [place] [phone] 02/06/2025 3:00 PM EST Office Visit [facility] Gastroenterology [address] [place] [phone] Nathanael Trimble MD [address] [place] [phone] Pending Results Name Type Priority Associated Diagnoses Date /Time SODIUM, STOOL Lab STAT 12/11/2024 1:47 AM EDT CHLORIDE, STOOL Lab STAT 5 1:47 AM EDT POTASSIUM, STOOL Lab STAT 12/12/19 25 1:47 AM EDT Scheduled Orders Name Type Priority Associated Diagnoses Orde r Schedule SODIUM, STOOL Lab STAT Morning Blo od Draw for 1 Occurrences starting 12/11/2024 until 12/11/2024 CHLORIDE, STOOL Lab STAT Morning B lood Draw for 1 Occurrences starting 12/11/2024 until 12/11/2024 POTASSIUM, STOOL Lab STAT Morning Blood Draw for 1 Occurrences starting 12/11/2024 until 12/11/2024 EKG 12 LEAD - PERFORM MUSE Routine Onc e for 1 Occurrences starting 12/13/2024 until 12/13/2024 EKG 12 LEAD - PERFORM MUSE Routine Onc e for 1 Occurrences starting 12/13/2024 until 12/13/2024 Scheduled Referrals Name Type Priority Associated Diagnoses Orde r Schedule GASTROENTEROLOGY SERVICE REQUEST Referral Routine Dyspepsia Chronic diarrhea Epigastric pain Ordered: 12/13/2024 documented as of this encounter Procedures Procedure Name Priority Date/Time Associated Diagnosis Comments CBC WITH DIFFERENTIAL STAT 12/14/2024 12:10 AM EDT COMPLETE BLOOD COUNT W/DIFF STAT 12/14/2024 12:10 AM EDT HC HEPATIC FUNCTION PANEL STAT 12/14/2024 12:10 AM EDT BASIC METABOLIC PANEL STAT 12/14/2024 12:10 AM EDT PHOSPHORUS STAT 12/14/2024 12:10 AM EDT MAGNESIUM STAT 12/14/2024 12:[address] HEAD W/O CONTRAST STAT 12/13/2024 6:57 PM EDT CBC WITH DIFFERENTIAL STAT 12/13/2024 6:33 PM EDT HIV1 HIV2 AGAB SCRN Routine 12/13/2024 6 :33 PM EDT Contact with and (suspected) exposure to other viral communicable diseases COMPLETE BLOOD COUNT W/DIFF STAT 12/13/2024 6:33 PM EDT HIGH SENSITIVITY TROPONIN I STAT 12/13/2024 6:33 PM EDT BASIC METABOLIC PANEL STAT 12/13/2024 6:33 PM EDT PROTHROMBIN TIME AND INR STAT 12/13/2024 6:33 PM EDT PARTIAL THROMBOPLASTIN TIME STAT 12/13/2024 6:33 PM EDT TSH STAT 12/13/2024 6:33 PM EDT MAGNESIUM STAT 12/13/2024 6:33 PM EDT LACTIC ACID STAT 12/13/2024 6:33 PM EDT GLUCOSE, FINGERSTICK-IN OFFICE Routine 12/13/2024 6:25 PM EDT CBC WITH DIFFERENTIAL STAT 12/13/2024 5:10 AM EDT COMPLETE BLOOD COUNT W/DIFF STAT 12/13/2024 5:10 AM EDT HC HEPATIC FUNCTION PANEL STAT 12/13/2024 5:10 AM EDT BASIC METABOLIC PANEL STAT 12/13/2024 5:10 AM EDT PHOSPHORUS STAT 12/13/2024 5:10 AM EDT MAGNESIUM STAT 12/13/2024 5:10 AM EDT CBC WITH DIFFERENTIAL STAT 12/12/2024 4:35 AM EDT COMPLETE BLOOD COUNT W/DIFF STAT 12/12/2024 4:35 AM EDT HC HEPATIC FUNCTION PANEL STAT 12/12/2024 4:35 AM EDT BASIC METABOLIC PANEL STAT 12/12/2024 4:35 AM EDT PHOSPHORUS STAT 12/12/2024 4:35 AM EDT MAGNESIUM STAT 12/12/2024 4:35 AM EDT COLONOSCOPY, FLEXIBLE, PROXIMAL TO SPLENIC FLEXURE; W/BIOPSY, SINGLE/MULTIPLE Routine 12/11/2024 2:00 PM EDT Chronic abdominal pain Nausea and vomiting, unspecified vomiting type Chronic diarrhea UPPER GI ENDOSCOPY; DX, W/WO SPECIMEN COLLECTION, BRUSHING/WASHING (SEP PROC) Routine 12/11/2024 2:00 PM EDT Chronic abdominal pain Nausea and vomiting, unspecified vomiting type Chronic diarrhea SURGICAL GI ANATOMIC PATHOLOGY Routine 12/11/2024 1:51 PM EDT Dyspepsia Chronic diarrhea Colonoscopy, Flexible, Proximal To Splenic Flexure; W/Biopsy, Single/Multiple Routine scheduled 12/11/2024 1:16 PM EDT Dyspepsia Chronic diarrhea Upper GI Endoscopy; W/Biopsy, Single/Multiple Routine scheduled 12/11/2024 1:16 PM EDT Dyspepsia Chronic diarrhea Colonoscopy, Flexible, Proximal To Splenic Flexure; Dx, W/Wo Specimens/Colon Decomp (Sep Proc) Routine scheduled 12/11/2024 1:16 PM EDT Dyspepsia Chronic diarrhea Upper Gi Endoscopy; Dx, W/Wo Specimen Collection, Brushing/Washing (Sep Proc) Routine scheduled 12/11/2024 1:16 PM EDT Dyspepsia Chronic diarrhea HC FAT STAIN STOOL STAT 12/11/2024 1: 47 AM EDT PH, STOOL STAT 12/11/2024 1:47 AM EDT OSMOLALITY, STOOL STAT 12/11/2024 1:4 7 AM EDT XR ABDOMEN SUPINE + ERECT 2 VIEWS STAT 12/10/2024 12:39 PM EDT HC HEPATIC FUNCTION PANEL STAT 12/10/2024 3:23 AM EDT URINALYSIS STAT 12/09/2024 8:15 AM EDT URINALYSIS STAT 12/09/2024 8:15 AM EDT HCG URINE STAT 12/09/2024 8:15 AM EDT CBC WITH DIFFERENTIAL STAT 12/09/2024 8:03 AM EDT COMPLETE BLOOD COUNT W/DIFF STAT 12/09/2024 8:03 AM EDT HC HEPATIC FUNCTION PANEL STAT 12/09/2024 8:03 AM EDT BASIC METABOLIC PANEL STAT 12/09/2024 8:03 AM EDT LIPASE STAT 12/09/2024 8:03 AM EDT documented in this encounter Results * CBC WITH DIFFERENTIAL (12/14/2024 12:10 AM EDT) WBC 7.9 4.5 - 11.5 K/uL 12/14/2024 12:29 AM EDT [facility] RBC 4.83 4.00 - 5.20 M/uL 12/14/2024 12:29 AM EDT [facility] Hemoglobin 13.6 12.0 - 15.0 g/dL 12/14/2024 12:29 AM EDT [facility] Hematocrit 39.4 36.0 - 46.0 % 12/14/2024 12:29 AM EDT [facility] MCV 82 80 - 100 fL 12/14/2024 12:29 AM EDT [facility] MCH 28.2 26.0 - 34.0 pg 12/14/2024 12:29 AM EDT [facility] MCHC 34.5 32.0 - 35.9 g/dL 12/14/2024 12:29 AM EDT [facility] Platelet 269 150 - 400 K/uL 12/14/2024 12:29 AM EDT [facility] RDW-CV 13.0 11.5 - 14.5 % 12/14/2024 12:29 AM EDT [facility] MPV 8.2 7.5 - 11.2 fL 12/14/2024 12:29 AM EDT [facility] Neutrophils 52.3 31.0 - 76.0 % 12/14/2024 12:29 AM EDT [facility] Neutrophil # 4.13 1.50 - 8.00 K/uL 12/14/2024 12:29 AM EDT [facility] Lymphocytes 34.1 24.0 - 44.0 % 12/14/2024 12:29 AM EDT [facility] Lymphocytes # 2.69 1.00 - 4.80 K/uL 12/14/2024 12:29 AM EDT [facility] Monocytes 10.8 2.0 - 11.0 % 12/14/2024 12:29 AM EDT [facility] Monocyte # 0.85 0.20 - 1.00 K/uL 12/14/2024 12:29 AM EDT [facility] Eosinophil 2.3 0.1 - 4.0 % 12/14/2024 12:29 AM EDT [facility] Eosinophil # 0.18 0.00 - 0.70 K/uL 12/14/2024 12:29 AM EDT [facility] Basophils 0.5 <=1.9 % 12/14/2024 12:29 AM EDT [facility] Basophil # 0.04 0.00 - 0.20 K/uL 12/14/2024 12:29 AM EDT [facility] Blood BLOOD SPECIMEN / Unknown Venipuncture / Unknown 12/14/2024 12:10 AM EDT 12/14/2024 12:23 AM EDT us Carlo Truong MD EC LAB ORDER ONLY Final Result [facility] [address] [place] [address] * BASIC METABOLIC PANEL (12/14/2024 12:10 AM EDT) Glucose 99 74 - 109 mg/dL 12/14/2024 12:49 AM EDT [facility] Sodium 141 136 - 145 mmol/L 12/14/2024 12:49 AM EDT [facility] Potassium 3.8 3.5 - 5.0 mmol/L 12/14/2024 12:49 AM EDT [facility] Carbon Dioxide 29 21 - 31 mmol/L 12/14/2024 12:49 AM EDT [facility] Chloride 103 98 - 107 mmol/L 12/14/2024 12:49 AM EDT [facility] Blood Urea Nitrogen 14 7 - 25 mg/dL 12/14/2024 12:49 AM EDT [facility] Creatinine 0.70 0.60 - 1.20 mg/dL 12/14/2024 12:49 AM EDT [facility] Calcium 9.4 8.6 - 10.3 mg/dL 12/14/2024 12:49 AM EDT [facility] Anion Gap 13 10 - 20 12/14/2024 12:49 AM EDT [facility] Estimated GFR (CKD-EPI) 119 >=60 mL/min/1. 73sqm 12/14/2024 12:49 AM EDT [facility] Comment: 2020 CKD EPI Equation using Creatinine without Race Comment: Estimated glomerular filtration rate (eGFR) is calculated without a race coefficient. Values should be interpreted in the context of the patient's full clinical presentation. Reference: 1. Jon C, Coy M, [place], et al.. A Unifying Approach for GFR Estimation: Recommendations of the NKF-ASN Task Force on Reassessing the Inclusion of Race in Diagnosing Kidney Disease. [place] Journal of Kidney Diseases 202;79(2):268- 88.e1. 2. N Engl J Med 2021 Vol. 385 Issue 19 Pages 7749-0048 Blood BLOOD SPECIMEN / Unknown Venipuncture / Unknown 12/14/2024 12:10 AM EDT 12/14/2024 12:23 AM EDT us Carlo Truong MD 98 GENERAL LAB Final Result [facility] [address] [place] [address] * (ABNORMAL) HEPATIC FUNCTION PANEL (12/14/2024 12:10 AM EDT) Albumin 4.4 3.5 - 5.7 g/dL 12/14/2024 12:49 AM EDT [facility] Bilirubin, Direct 0.06 0.03 - 0.18 mg/dL 12/14/2024 12:49 AM EDT [facility] Bilirubin, Total 0.3 0.3 - 1.0 mg/dL 12/14/2024 12:49 AM EDT [facility] Comment:Note updated referen ce range. Alkaline Phosphatase 56 34 - 104 IU/L 12/14/2024 12:49 AM EDT [facility] ALT (SGPT) 6(L) 7 - 52 IU/L 12/14/2024 12:49 AM EDT [facility] AST (SGOT) 9(L) 13 - 39 IU/L 12/14/2024 12:49 AM EDT [facility] Protein, Total 6.6 6.1 - 7.9 g/dL 12/14/2024 12:49 AM EDT [facility] Comment:Note updated referen ce range. Blood BLOOD SPECIMEN / Unknown Venipuncture / Unknown 12/14/2024 12:10 AM EDT 12/14/2024 12:23 AM EDT Carlo Truong MD 98 GENERAL LAB Final Result Performing Organization Address City/[facility]/ZIP Co de Phone Number [facility] [address] [place] [phone] * MAGNESIUM (12/14/2024 12:10 AM EDT) Magnesium 2.7 1.9 - 2.7 mg/dL 12/14/2024 12:49 AM EDT [facility] Blood BLOOD SPECIMEN / Unknown Venipuncture / Unknown 12/14/2024 12:10 AM EDT 12/14/2024 12:23 AM EDT Carlo Truong MD 98 GENERAL LAB Final Result [facility] [address] [place] [address] * (ABNORMAL) PHOSPHORUS (12/14/2024 12:10 AM EDT) Phosphorus, Serum 5.4(H) 2.5 - 5.0 mg/dL 12/14/2024 12:49 AM EDT [facility] Blood BLOOD SPECIMEN / Unknown Venipuncture / Unknown 12/14/2024 12:10 AM EDT 12/14/2024 12:23 AM EDT Carlo Truong MD 98 GENERAL LAB Final Result [facility] [address] [place] [address] * CT HEAD W/O CONTRAST (12/13/2024 6:57 PM EDT) CTDI VOL 67.5 (mGy) RADIOLOGY PHANTOM TYPE IEC Head Dosimetry Phantom RADIOLOGY CT DLP 1263.6 (mGy.cm) RADIOLOGY CT Series Head RADIOLOGY Anatomical Region Laterality Modality CT Head, Head N/A Computed Tomogra phy 12/13/2024 7:02 PM EDT Narrative 12/13/2024 7:04 PM EDT EXAMINATION: CT HEAD W/O CONTRASTPRO 12/13/2024 06:57 PM CLINICAL HISTORY: ams ASSOCIATED DIAGNOSIS: ams ORDERING PROVIDER: LO [employer] NOTE: COMPARISON: None TECHNIQUE: Thin axial imaging of the head was performed without intravenous contrast. FINDINGS: No mass or acute hemorrhage. No evidence of acute infarct. The ventricles are within normal limits for age. The skull, paranasal sinuses and tympanomastoid cavities are normal. IMPRESSION: No acute intracranial abnormality. MACRO: None Procedure Note Martín Cardona MD - 12/13/2024 EXAMINATION: CT HEAD W/O CONTRASTPRO 12/13/2024 06:57 PM CLINICAL HISTORY: ams ASSOCIATED DIAGNOSIS: ams ORDERING PROVIDER: LO [employer]IR[employer] NOTE: COMPARISON: None TECHNIQUE: Thin axial imaging of the head was performed withoutintravenous contrast. FINDINGS: No mass or acute hemorrhage. No evidence of acute infarct. The ventricles are within normal limits for age. The skull, paranasal sinuses and tympanomastoid cavities are normal. IMPRESSION: No acute intracranial abnormality. MACRO: None Lo Miranda DO EC CT SCAN Final Result * (ABNORMAL) CBC WITH DIFFERENTIAL (12/13/2024 6:33 PM EDT) WBC 8.4 4.5 - 11.5 K/uL 12/13/2024 6:51 PM EDT [facility] RBC 5.16 4.00 - 5.20 M/uL 12/13/2024 6:51 PM EDT [facility] Hemoglobin 14.8 12.0 - 15.0 g/dL 12/13/2024 6:51 PM EDT S PATH[facility]Y LABORATORY Hematocrit 41.9 36.0 - 46.0 % 12/13/2024 6:51 PM EDT [facility] MCV 81 80 - 100 fL 12/13/2024 6:51 PM EDT [facility] MCH 28.6 26.0 - 34.0 pg 12/13/2024 6:51 PM EDT [facility] MCHC 35.3 32.0 - 35.9 g/dL 12/13/2024 6:51 PM EDT [facility] Platelet 293 150 - 400 K/uL 12/13/2024 6:51 PM EDT [facility] RDW-CV 13.0 11.5 - 14.5 % 12/13/2024 6:51 PM EDT [facility] MPV 7.9 7.5 - 11.2 fL 12/13/2024 6:51 PM EDT [facility] Neutrophils 47.6 31.0 - 76.0 % 12/13/2024 6:51 PM EDT [facility] Neutrophil # 3.99 1.50 - 8.00 K/uL 12/13/2024 6:51 PM EDT [facility] Lymphocytes 38.1 24.0 - 44.0 % 12/13/2024 6:51 PM EDT [facility] Lymphocytes # 3.20 1.00 - 4.80 K/uL 12/13/2024 6:51 PM EDT [facility] Monocytes 11.1(H) 2.0 - 11.0 % 12/13/2024 6:51 PM EDT [facility] Monocyte # 0.93 0.20 - 1.00 K/uL 12/13/2024 6:51 PM EDT S PATH[facility]Y LABORATORY Eosinophil 2.3 0.1 - 4.0 % 12/13/2024 6:51 PM EDT [facility] Eosinophil # 0.20 0.00 - 0.70 K/uL 12/13/2024 6:51 PM EDT [facility] Basophils 1.0 <=1.9 % 12/13/2024 6:51 PM EDT [facility] Basophil # 0.08 0.00 - 0.20 K/uL 12/13/2024 6:51 PM EDT [facility] Blood BLOOD SPECIMEN / Unknown Venipuncture / Unknown 12/13/2024 6:33 PM EDT 12/13/2024 6:45 PM EDT Lo Miranda DO EC LAB ORDER ONLY Final Resul t Performing Organization Address [facility] Co de Phone Number [facility] [address] [place] [phone] * HIV1 HIV2 AGAB SCRN (12/13/2024 6:33 PM EDT) HIV Ag-Ab Screen Non-React zulay Non-React zulay 12/13/2024 8:26 PM EDT [facility] Comment:No laboratory eviden ce for HIV Infection. Negative result does not rule out acute HIV infection. If acute HIV infection is suspected, recommend ordering an HIV-1 RNA quanitification test. Blood BLOOD SPECIMEN / Unknown Venipuncture / Unknown 12/13/2024 6:33 PM EDT 12/13/2024 6:44 PM EDT Narrative [facility] - 12/13/2024 8:26 PM EDT HIV Information: [place] Rev. code 3701.243(E): This information has been disclosed to you from confidential records protected from disclosure by state law. You shall make no further disclosure of this information without the specific, written, and informed release of the individual to whom it pertains, or as otherwise permitted by state law. A general authorization for the release of medical or other information is not sufficient for the purpose of the release of HIV test results or diagnoses. Lo Miranda DO EC HIV/HEP/SYPH TESTING Final Result Performing Organization Address City/[facility] Co de Phone Number [facility] [address] [place] [address], [place] [phone] * PARTIAL THROMBOPLASTIN TIME (12/13/2024 6:33 PM EDT) aPTT 30 25 - 37 sec 12/13/2024 7:17 PM EDT [facility] Blood BLOOD SPECIMEN / Unknown Venipuncture / Unknown 12/13/2024 6:33 PM EDT 12/13/2024 6:45 PM EDT [facility] GENERAL LAB Final Result [facility] [address] [place] [phone] * PROTHROMBIN TIME AND INR (12/13/2024 6:33 PM EDT) Protime 11.5 9.7 - 12.9 sec 12/13/2024 7:17 PM EDT [facility] INR 1.03 0.90 - 1.10 12/13/2024 7:17 PM EDT [facility] Blood BLOOD SPECIMEN / Unknown Venipuncture / Unknown 12/13/2024 6:33 PM EDT 12/13/2024 6:45 PM EDT [facility] Final Result [facility] [address] [place] [phone] * TSH (12/13/2024 6:33 PM EDT) TSH 0.465 0.450 - 5.330 uIU/mL 12/13/2024 7:24 PM EDT [facility] Comment: Referance range for women as applicable: First Trimester: 0. 050 to 3.700 uIU/mL Second Trimester: 0. 310 to 4.350 uIU/mL Third Trimester: 0. 410 to 5.180 uIU/mL Blood BLOOD SPECIMEN / Unknown Venipuncture / Unknown 12/13/2024 6:33 PM EDT 12/13/2024 6:44 PM EDT Lo Miranda DO 98 GENERAL LAB Final Result Performing Organization Address [facility]/ZIP Co de Phone Number [facility] [address] [place] [phone] * LACTIC ACID (12/13/2024 6:33 PM EDT) Pathologist [facility] Lactate 1.6 0.5 - 1.6 mmol/L 12/13/2024 6:47 PM EDT [facility] Blood BLOOD SPECIMEN / Unknown Venipuncture / Unknown 12/13/2024 6:33 PM EDT 12/13/2024 6:43 PM EDT Narrative [facility] - 12/13/2024 6:47 PM EDT This test was developed, and its performance characteristics determined by the Department of Pathology of [facility]. It has not been cleared or approved by the FDA. This test is used for clinical purposes only. Lo Miranda DO 98 GENERAL LAB Final Result Performing Organization Address [facility] de Phone Number [facility] [address] [place] [phone] * HIGH SENSITIVITY TROPONIN I (12/13/2024 6:33 PM EDT) Pathologist [facility] HS Troponin I <4 <=15 ng/L 12/13/2024 7:15 PM EDT [facility] Blood BLOOD SPECIMEN / Unknown Venipuncture / Unknown 12/13/2024 6:33 PM EDT 12/13/2024 6:45 PM EDT Narrative [facility] - 12/13/2024 7:15 PM EDT Elevated troponin can result from acute myocardial infarction (coronary etiology) or myocardial injury (non-coronary etiology) - always consider both. Interval test times for ruling out acute coronary syndrome (ACS) are 2 hours. All results are reported in whole numbers representing ng/L. Results obtained by different labs or methods are not comparable. For ruling out ACS, lab values are always used in conjunction with clinical risk assessment (e.g., HEART score*). Interpreting initial value in ruling out ACS Less than 5 ng/L - below lower limit of quantification - essentially rules out ACS if chest pain began more than 3 hours prior to test and assessed risk is low. 5 - 49 ng/L - indeterminate - consider repeat value in 2 hours depending on risk assessment. 50 ng/L or greater - concern for ACS or myocardial injury. Interpreting delta values in ruling out ACS. Always compare to initial value obtained: Absolute change (rise or fall) of less than 5 ng/L - essentially rules out ACS if assessed clinical risk is low. Absolute change (rise or fall) of 5 - 19 ng/L - indeterminate - consider another repeat value in 2 hours depending on assessed clinical risk. Absolute change (rise or fall) of 20 ng/L or greater - concern for ACS or myocardial injury. Any absolute value of 50 ng/L or greater - concern for ACS or myocardial injury. *When using hsTnI to calculate the HEART score, use the 99% Upper Reference Limit of 15 ng/L as the normal limit (i.e. <=15 ng/L = 0 points, 16-45 ng/L = 1 point, >45 ng/L = 2 points). Disposition Intermediate hsTnI values DO NOT mandate admission to a cardiology or telemetry unit. They need to be interpreted within the clinical context using provider judgement. SOL REPUBLICpaulette DO 98 GENERAL LAB Final Result Performing Organization Address City/[facility]/ZIP Co de Phone Number [facility] [address] [place] [address] * MAGNESIUM (12/13/2024 6:33 PM EDT) Magnesium 2.4 1.9 - 2.7 mg/dL 12/13/2024 7:12 PM EDT [facility] Blood BLOOD SPECIMEN / Unknown Venipuncture / Unknown 12/13/2024 6:33 PM EDT 12/13/2024 6:44 PM EDT LineHop DO 98 GENERAL LAB Final Result Performing Organization Address [facility]/ZIP Co de Phone Number [facility] [address] [place] [address] * BASIC METABOLIC PANEL (12/13/2024 6:33 PM EDT) Glucose 97 74 - 109 mg/dL 12/13/2024 7:12 PM EDT [facility] Sodium 142 136 - 145 mmol/L 12/13/2024 7:12 PM EDT [facility] Potassium 3.6 3.5 - 5.0 mmol/L 12/13/2024 7:12 PM EDT [facility] Carbon Dioxide 29 21 - 31 mmol/L 12/13/2024 7:12 PM EDT [facility] Chloride 102 98 - 107 mmol/L 12/13/2024 7:12 PM EDT [facility] Blood Urea Nitrogen 10 7 - 25 mg/dL 12/13/2024 7:12 PM EDT [facility] Creatinine 0.75 0.60 - 1.20 mg/dL 12/13/2024 7:12 PM EDT [facility] Calcium 9.7 8.6 - 10.3 mg/dL 12/13/2024 7:12 PM EDT [facility] Anion Gap 15 10 - 20 12/13/2024 7:12 PM EDT [facility] Estimated GFR (CKD-EPI) 110 >=60 mL/min/1. 73sqm 12/13/2024 7:12 PM EDT [facility] Comment: 2020 CKD EPI Equation using Creatinine without Race Comment: Estimated glomerular filtration rate (eGFR) is calculated without a race coefficient. Values should be interpreted in the context of the patient's full clinical presentation. Reference: 1. Jon C, Coy M, [place] SNYDER, et al.. A Unifying Approach for GFR Estimation: Recommendations of the NKF-ASN Task Force on Reassessing the Inclusion of Race in Diagnosing Kidney Disease. [place] Journal of Kidney Diseases 2022;79(2):268- 88.e1. 2. N Engl J Med 2021 Vol. 385 Issue 19 Pages 8510-2531 Blood BLOOD SPECIMEN / Unknown Venipuncture / Unknown 12/13/2024 6:33 PM EDT 12/13/2024 6:44 PM EDT Lo Miranda DO 98 GENERAL LAB Final Result S PATHOLOGY LABORATORY [address] [place] [address] * GLUCOSE, FINGERSTICK-IN OFFICE (12/13/2024 6:25 PM EDT) Glucose, POC 95 74 - 109 mg/dL 12/13/2024 6:42 PM EDT NURSING GLUCOSE PROGRAM Blood BLOOD SPECIMEN / Unknown 12/13/2024 6:25 PM EDT 12/13/2024 6:42 PM EDT us Christina Tony MD EC BACK OFFICE LABS Final Result NURSING GLUCOSE PROGRAM [address] [place], [place] [id number] * CBC WITH DIFFERENTIAL (12/13/2024 5:10 AM EDT) WBC 7.0 4.5 - 11.5 K/uL 12/13/2024 6:15 AM EDT S PATHOLOGY LABORATORY RBC 4.67 4.00 - 5.20 M/uL 12/13/2024 6:15 AM EDT S PATHOLOGY LABORATORY Hemoglobin 13.5 12.0 - 15.0 g/dL 12/13/2024 6:15 AM EDT S PATHOLOGY LABORATORY Hematocrit 38.1 36.0 - 46.0 % 12/13/2024 6:15 AM EDT S PATHOLOGY LABORATORY MCV 82 80 - 100 fL 12/13/2024 6:15 AM EDT S PATHOLOGY LABORATORY MCH 29.0 26.0 - 34.0 pg 12/13/2024 6:15 AM EDT S PATHOLOGY LABORATORY MCHC 35.6 32.0 - 35.9 g/dL 12/13/2024 6:15 AM EDT S PATHOLOGY LABORATORY Platelet 266 150 - 400 K/uL 12/13/2024 6:15 AM EDT [facility] RDW-CV 13.0 11.5 - 14.5 % 12/13/2024 6:15 AM EDT S PATHOLOGY LABORATORY MPV 8.0 7.5 - 11.2 fL 12/13/2024 6:15 AM EDT [facility] Neutrophils 49.2 31.0 - 76.0 % 12/13/2024 6:15 AM EDT [facility] Neutrophil # 3.46 1.50 - 8.00 K/uL 12/13/2024 6:15 AM EDT [facility] Lymphocytes 38.0 24.0 - 44.0 % 12/13/2024 6:15 AM EDT [facility] Lymphocytes # 2.66 1.00 - 4.80 K/uL 12/13/2024 6:15 AM EDT [facility] Monocytes 9.7 2.0 - 11.0 % 12/13/2024 6:15 AM EDT [facility] Monocyte # 0.68 0.20 - 1.00 K/uL 12/13/2024 6:15 AM EDT [facility] Eosinophil 2.5 0.1 - 4.0 % 12/13/2024 6:15 AM EDT [facility] Eosinophil # 0.17 0.00 - 0.70 K/uL 12/13/2024 6:15 AM EDT [facility] Basophils 0.7 <=1.9 % 12/13/2024 6:15 AM EDT [facility] Basophil # 0.05 0.00 - 0.20 K/uL 12/13/2024 6:15 AM EDT [facility] Blood BLOOD SPECIMEN / Unknown Venipuncture / Unknown 12/13/2024 5:10 AM EDT 12/13/2024 6:10 AM EDT Carlo Truong MD EC LAB ORDER ONLY Final Result [facility] [address] [place] [address] * PHOSPHORUS (12/13/2024 5:10 AM EDT) Phosphorus, Serum 4.0 2.5 - 5.0 mg/dL 12/13/2024 6:35 AM EDT [facility] Blood BLOOD SPECIMEN / Unknown Venipuncture / Unknown 12/13/2024 5:10 AM EDT 12/13/2024 6:10 AM EDT Carlo Truong MD 98 GENERAL LAB Final Result S PATHOLOGY LABORATORY [address] [place] [address] * MAGNESIUM (12/13/2024 5:10 AM EDT) Magnesium 2.2 1.9 - 2.7 mg/dL 12/13/2024 6:35 AM EDT S PATHOLOGY LABORATORY Blood BLOOD SPECIMEN / Unknown Venipuncture / Unknown 12/13/2024 5:10 AM EDT 12/13/2024 6:10 AM EDT Carlo Truong MD 98 GENERAL LAB Final Result Performing Organization Address City/[facility] Co de Phone Number [facility] [address] [place] [phone] * (ABNORMAL) HEPATIC FUNCTION PANEL (12/13/2024 5:10 AM EDT) Albumin 4.4 3.5 - 5.7 g/dL 12/13/2024 6:35 AM EDT [facility] Bilirubin, Direct 0.07 0.03 - 0.18 mg/dL 12/13/2024 6:35 AM EDT [facility] Bilirubin, Total 0.3 0.3 - 1.0 mg/dL 12/13/2024 6:35 AM EDT [facility] Comment:Note updated referen ce range. Alkaline Phosphatase 57 34 - 104 IU/L 12/13/2024 6:35 AM EDT [facility] ALT (SGPT) 6(L) 7 - 52 IU/L 12/13/2024 6:35 AM EDT [facility] AST (SGOT) 9(L) 13 - 39 IU/L 12/13/2024 6:35 AM EDT [facility] Protein, Total 6.5 6.1 - 7.9 g/dL 12/13/2024 6:35 AM EDT [facility] Comment:Note updated referen ce range. Blood BLOOD SPECIMEN / Unknown Venipuncture / Unknown 12/13/2024 5:10 AM EDT 12/13/2024 6:10 AM EDT us Carlo Truong MD 98 GENERAL LAB Final Result [facility] [address] [place] [address] * (ABNORMAL) BASIC METABOLIC PANEL (12/13/2024 5:10 AM EDT) Glucose 119(H) 74 - 109 mg/dL 12/13/2024 6:35 AM EDT [facility] Sodium 142 136 - 145 mmol/L 12/13/2024 6:35 AM EDT [facility] Potassium 3.5 3.5 - 5.0 mmol/L 12/13/2024 6:35 AM EDT [facility] Carbon Dioxide 29 21 - 31 mmol/L 12/13/2024 6:35 AM EDT [facility] Chloride 104 98 - 107 mmol/L 12/13/2024 6:35 AM EDT [facility] Blood Urea Nitrogen 12 7 - 25 mg/dL 12/13/2024 6:35 AM EDT [facility] Creatinine 0.62 0.60 - 1.20 mg/dL 12/13/2024 6:35 AM EDT [facility] Calcium 9.4 8.6 - 10.3 mg/dL 12/13/2024 6:35 AM EDT [facility] Anion Gap 13 10 - 20 12/13/2024 6:35 AM EDT [facility] Estimated GFR (CKD-EPI) 123 >=60 mL/min/1. 73sqm 12/13/2024 6:35 AM EDT [facility] Comment: 2020 CKD EPI Equation using Creatinine without Race Comment: Estimated glomerular filtration rate (eGFR) is calculated without a race coefficient. Values should be interpreted in the context of the patient's full clinical presentation. Reference: 1. Jon C, Coy M, [place] SNYDER, et al.. A Unifying Approach for GFR Estimation: Recommendations of the NKF-ASN Task Force on Reassessing the Inclusion of Race in Diagnosing Kidney Disease. [place] Journal of Kidney Diseases 202;79(2):268- 88.e1. 2. N Engl J Med 2021 Vol. 385 Issue 19 Pages 0987-1215 Blood BLOOD SPECIMEN / Unknown Venipuncture / Unknown 12/13/2024 5:10 AM EDT 12/13/2024 6:10 AM EDT Carlo Truong MD 98 GENERAL LAB Final Result [facility] [address] [place] [address] * CBC WITH DIFFERENTIAL (12/12/2024 4:35 AM EDT) WBC 6.3 4.5 - 11.5 K/uL 12/12/2024 4:44 AM EDT S PATHOLOGY LABORATORY RBC 4.86 4.00 - 5.20 M/uL 12/12/2024 4:44 AM EDT [facility] Hemoglobin 13.7 12.0 - 15.0 g/dL 12/12/2024 4:44 AM EDT S PATHOLOGY LABORATORY Hematocrit 39.3 36.0 - 46.0 % 12/12/2024 4:44 AM EDT [facility] MCV 81 80 - 100 fL 12/12/2024 4:44 AM EDT S PATHOLOGY LABORATORY MCH 28.1 26.0 - 34.0 pg 12/12/2024 4:44 AM EDT [facility] MCHC 34.8 32.0 - 35.9 g/dL 12/12/2024 4:44 AM EDT S PATHOLOGY LABORATORY Platelet 268 150 - 400 K/uL 12/12/2024 4:44 AM EDT [facility] RDW-CV 12.9 11.5 - 14.5 % 12/12/2024 4:44 AM EDT [facility] MPV 8.0 7.5 - 11.2 fL 12/12/2024 4:44 AM EDT [facility] Neutrophils 52.7 31.0 - 76.0 % 12/12/2024 4:44 AM EDT [facility] Neutrophil # 3.33 1.50 - 8.00 K/uL 12/12/2024 4:44 AM EDT S PATHOLOGY LABORATORY Lymphocytes 32.9 24.0 - 44.0 % 12/12/2024 4:44 AM EDT [facility] Lymphocytes # 2.08 1.00 - 4.80 K/uL 12/12/2024 4:44 AM EDT [facility] Monocytes 10.8 2.0 - 11.0 % 12/12/2024 4:44 AM EDT [facility] Monocyte # 0.68 0.20 - 1.00 K/uL 12/12/2024 4:44 AM EDT S PATHOLOGY LABORATORY Eosinophil 2.7 0.1 - 4.0 % 12/12/2024 4:44 AM EDT [facility] Eosinophil # 0.17 0.00 - 0.70 K/uL 12/12/2024 4:44 AM EDT [facility] Basophils 0.9 <=1.9 % 12/12/2024 4:44 AM EDT [facility] Basophil # 0.06 0.00 - 0.20 K/uL 12/12/2024 4:44 AM EDT [facility] Blood BLOOD SPECIMEN / Unknown Venipuncture / Unknown 12/12/2024 4:35 AM EDT 12/12/2024 4:39 AM EDT Carlo Truong MD EC LAB ORDER ONLY Final Result [facility] [address] [place], [place] [phone] * PHOSPHORUS (12/12/2024 4:35 AM EDT) Phosphorus, Serum 3.7 2.5 - 5.0 mg/dL 12/12/2024 5:08 AM EDT [facility] Blood BLOOD SPECIMEN / Unknown Venipuncture / Unknown 12/12/2024 4:35 AM EDT 12/12/2024 4:39 AM EDT Carlo Truong MD 98 GENERAL LAB Final Result [facility] [address] [place] [phone] * MAGNESIUM (12/12/2024 4:35 AM EDT) Magnesium 2.3 1.9 - 2.7 mg/dL 12/12/2024 5:08 AM EDT [facility] Blood BLOOD SPECIMEN / Unknown Venipuncture / Unknown 12/12/2024 4:35 AM EDT 12/12/2024 4:39 AM EDT Carlo Truong MD 98 GENERAL LAB Final Result Performing Organization Address [facility]/ZIP Co de Phone Number [facility] [address] [place] [address] * (ABNORMAL) HEPATIC FUNCTION PANEL (12/12/2024 4:35 AM EDT) Albumin 4.5 3.5 - 5.7 g/dL 12/12/2024 5:08 AM EDT [facility] Bilirubin, Direct 0.08 0.03 - 0.18 mg/dL 12/12/2024 5:08 AM EDT [facility] Bilirubin, Total 0.4 0.3 - 1.0 mg/dL 12/12/2024 5:08 AM EDT [facility] Comment:Note updated referen ce range. Alkaline Phosphatase 55 34 - 104 IU/L 12/12/2024 5:08 AM EDT [facility] ALT (SGPT) 7 7 - 52 IU/L 12/12/2024 5:08 AM EDT [facility] AST (SGOT) 10(L) 13 - 39 IU/L 12/12/2024 5:08 AM EDT [facility] Protein, Total 6.5 6.1 - 7.9 g/dL 12/12/2024 5:08 AM EDT [facility] Comment:Note updated referen ce range. Blood BLOOD SPECIMEN / Unknown Venipuncture / Unknown 12/12/2024 4:35 AM EDT 12/12/2024 4:39 AM EDT Carlo Truong MD 98 GENERAL LAB Final Result Performing Organization Address City/[facility]/ZIP Co de Phone Number [facility] [address] [place] [address] * (ABNORMAL) BASIC METABOLIC PANEL (12/12/2024 4:35 AM EDT) Glucose 122(H) 74 - 109 mg/dL 12/12/2024 5:08 AM EDT [facility] Sodium 139 136 - 145 mmol/L 12/12/2024 5:08 AM EDT [facility] Potassium 3.5 3.5 - 5.0 mmol/L 12/12/2024 5:08 AM EDT [facility] Carbon Dioxide 24 21 - 31 mmol/L 12/12/2024 5:08 AM EDT [facility] Chloride 105 98 - 107 mmol/L 12/12/2024 5:08 AM EDT [facility] Blood Urea Nitrogen 4(L) 7 - 25 mg/dL 12/12/2024 5:08 AM EDT [facility] Creatinine 0.62 0.60 - 1.20 mg/dL 12/12/2024 5:08 AM EDT [facility] Calcium 9.3 8.6 - 10.3 mg/dL 12/12/2024 5:08 AM EDT [facility] Anion Gap 14 10 - 20 12/12/2024 5:08 AM EDT [facility] Estimated GFR (CKD-EPI) 123 >=60 mL/min/1. 73sqm 12/12/2024 5:08 AM EDT [facility] Comment: 2020 CKD EPI Equation using Creatinine without Race Comment: Estimated glomerular filtration rate (eGFR) is calculated without a race coefficient. Values should be interpreted in the context of the patient's full clinical presentation. Reference: 1. Jon C, Coy M, [place] SNYDER, et al.. A Unifying Approach for GFR Estimation: Recommendations of the NKF-ASN Task Force on Reassessing the Inclusion of Race in Diagnosing Kidney Disease. [place] Journal of Kidney Diseases 2022;79(2):268- 88.e1. 2. N Engl J Med 2021 Vol. 385 Issue 19 Pages 5531-6646 Blood BLOOD SPECIMEN / Unknown Venipuncture / Unknown 12/12/2024 4:35 AM EDT 12/12/2024 4:39 AM EDT Carlo Truong MD 98 GENERAL LAB Final Result S [facility] LABORATORY [address] [place] [address] * SURGICAL GI ANATOMIC PATHOLOGY (12/11/2024 1:51 PM EDT) Case Report Surgical Pathology Report Case: [id number] Authorizing Provider: Stella Weinstein DO Collected: 12/11/2024 1351 Ordering Location: [address] Received: 12/12/2024 1425 Pathologist: Brynn Fuller MD Specimen: Colon biopsy 12/16/2024 10:56 AM EDT [facility] Final Diagnosis A. Colon, biopsy: Fragments of colonic mucosa with focal stromal edema. No active inflammation, increased lamina propria chronic inflammation, evidence of lymphocytic colitis, granulomas or dysplasia seen. . I certify that I personally conducted the diagnostic evaluation of the above specimen(s) and have rendered the final diagnosis(es). 12/16/2024 10:56 AM EDT [facility] at 1056 EDT Gross Description A. Requisitioned as colon biopsy . The specimen is received fixed in a single container, labeled with patient's name, medical record number, and surgical number. Marked as random colon . The specimen consists of multiple piece(s) of velazquez soft tissue measuring 2.4 x 0.3 x 0.1 cm in aggregate. The specimen is submitted in toto in one cassette. [X]. RR 12/16/2024 10:56 AM EDT [facility] Clinical Information 12/16/2024 10:56 AM EDT [facility] Tissue COLONIC BIOPSY SPECIMEN / Unknown 12/11/2024 1:51 PM EDT 12/12/2024 2:25 PM EDT us Stella Weinstein DO EC ANATOMICAL PATHOLOGY (LA B) Final Result Performing Organization Address [facility]/ZIP Co de Phone Number [facility] [address] [place] [address] * FECAL FAT, QUALITATIVE (CRIT * (12/11/2024 1:47 AM EDT) Neutral Fat Normal Normal 12/11/2024 2:14 AM EDT [facility] Split Fat Normal Normal 12/11/2024 2:14 AM EDT [facility] Stool STOOL SPECIMEN / Unknown 12/11/2024 1:47 AM EDT 12/11/2024 1:56 AM EDT Desire Joel MD 98 GENERAL LAB Final Result [facility] [address] [place] [address] * OSMOLALITY, STOOL (12/11/2024 1:47 AM EDT) Osmolality, Stool 410 mOsm/kg 11:03 AM EDT [facility] Comment: In patients with unexplained diarrhea, osmolalities <290 mOsm/Kg indicate contamination of stool with water or dilute urine or the presence of a gastrocolic fistula and ingestion of hypotonic fluid. Osmolalities >290 mOsm/kg (up to 600 mOsm/kg) are common because of bacterial metabolism of fecal carbohydrate during storage of the stool sample. Even higher values can be observed with ingestion of large amounts of poorly absorbable carbohydrate or dietary fiber, with fecal contamination by concentrated urine, or with gastrocolic fistula and ingestion of hypertonic fluids. This test was developed and its analytical performance characteristics have been determined by [facility] [place], [place]. It has not been cleared or approved by the FDA. This assay has been validated pursuant to the CLIA regulations and is used for clinical purposes. Stool STOOL SPECIMEN / Unknown 12/11/2024 1:47 AM EDT 12/11/2024 1:56 AM EDT Narrative [facility] - 12/15/2024 11:03 AM EDT Resulting Agency Address Site ID: AMD Name: [employer] Address: [address] [place] [address] [place] [address] Director: Sin Bradford M.D.,PhD us Desire Joel MD 98 GENERAL LAB Final Result [facility] [address] * PH, STOOL (12/11/2024 1:47 AM EDT) Stool pH 7.0 12/11/2024 2:14 AM EDT [facility] Stool STOOL SPECIMEN / Unknown 12/11/2024 1:47 AM EDT 12/11/2024 1:56 AM EDT us Desire Joel MD 98 GENERAL LAB Final Result Performing Organization Address City/[facility]/ZIP Co de Phone Number [facility] [address] [place] [phone] * XR ABDOMEN SUPINE + ERECT 2 VIEWS (12/10/2024 12:39 PM EDT) Anatomical Region Laterality Modality XR Abdomen N/A Computed Radiogr aphy 12/10/2024 12:5 2 PM EDT Narrative 12/10/2024 12:55 PM EDT EXAMINATION: XR ABDOMEN SUPINE + ERECT 2 VIEWSPRO 12/10/2024 12:39 PM CLINICAL HISTORY: acute on chronic abd pain, GI wants for stool burden eval ASSOCIATED DIAGNOSIS: ORDERING PROVIDER: ADOLFO RODRIGUEZ [employer] NOTE: COMPARISON: None IMPRESSION: No free intraperitoneal air or significant air-fluid levels on the upright view. Multiple nonspecific gaseously prominent loops of bowel are present throughout the abdomen with a presumed surgical anastomosis in the right hemiabdomen. No significant stool burden. MACRO: None Procedure Note Viviane Arevalo MD - 12/10/2024 EXAMINATION: XR ABDOMEN SUPINE + ERECT 2 VIEWSPRO 12/10/2024 12:39 PM CLINICAL HISTORY: acute on chronic abd pain, GI wants for stool burdeneval ASSOCIATED DIAGNOSIS: ORDERING PROVIDER: [employer]OLFO RODRIGUEZ [employer] NOTE: COMPARISON: None IMPRESSION: No free intraperitoneal air or significant air-fluid levels on the uprightview. Multiple nonspecific gaseously prominent loops of bowel are presentthroughout the abdomen with a presumed surgical anastomosis in the righthemiabdomen. No significant stool burden. MACRO: None us Adolfo Rodriguez MD EC DIAGNOSTIC X-RAY Final R esult * (ABNORMAL) HEPATIC FUNCTION PANEL (12/10/2024 3:23 AM EDT) Pathologist [facility] Albumin 4.4 3.5 - 5.7 g/dL 12/10/2024 3:59 AM EDT [facility] Bilirubin, Direct 0.10 0.03 - 0.18 mg/dL 12/10/2024 3:59 AM EDT [facility] Bilirubin, Total 0.6 0.3 - 1.0 mg/dL 12/10/2024 3:59 AM EDT [facility] Comment:Note updated referen ce range. Alkaline Phosphatase 53 34 - 104 IU/L 12/10/2024 3:59 AM EDT [facility] ALT (SGPT) 7 7 - 52 IU/L 12/10/2024 3:59 AM EDT [facility] AST (SGOT) 9(L) 13 - 39 IU/L 12/10/2024 3:59 AM EDT [facility] Protein, Total 6.6 6.1 - 7.9 g/dL 12/10/2024 3:59 AM EDT [facility] Comment:Note updated referen ce range. Blood BLOOD SPECIMEN / Unknown Venipuncture / Unknown 12/10/2024 3:23 AM EDT 12/10/2024 3:32 AM EDT us John Ramirez MD 98 GENERAL LAB Final Resul t [facility] [address] [place] [address] * (ABNORMAL) URINALYSIS (12/09/2024 8:15 AM EDT) Color Yellow Colorless 12/09/2024 8:44 AM EDT [facility] Appearance Turbid Clear 12/09/2024 8:44 AM EDT [facility] pH 6.0 5.0 - 8.0 12/09/2024 8:44 AM EDT [facility] Spec [place] 1.024 <=1.030 12/09/2024 8:44 AM EDT [facility] Protein 10 Negative mg/dL 12/09/2024 8:44 AM EDT [facility] Blood Negative Negative 12/09/2024 8:44 AM EDT [facility] Bilirubin Negative Negative 12/09/2024 8:44 AM EDT [facility] Urobilinogen 2.0(A) Negative mg/dL 12/09/2024 8:44 AM EDT [facility] Ketones 60(A) Negative mg/dL 12/09/2024 8:44 AM EDT [facility] Leuk. Esterase Positive(A) Negative 8:44 AM EDT [facility] Comment:Normal urine specime ns will not produce a positive reaction. Small amounts of leukocyte esterase, causing a positive reaction should be repeated, using a fresh urine specimen, from the same patient. Positive results require further testing for pyuria. Nitrite Negative Negative 12/09/2024 8:44 AM EDT [facility] Glucose Negative Negative mg/dL 12/09/2024 8:44 AM EDT [facility] WBC 11-30(A) 0 - 2 /HPF 12/09/2024 8:44 AM EDT [facility] RBC 6-10(A) 0 - 2 /HPF 12/09/2024 8:44 AM EDT [facility] Bacteria Few /HPF 12/09/2024 8:44 AM EDT [facility] Yeast Few /HPF 12/09/2024 8:44 AM EDT [facility] Mucous Threads Present 12/09/2024 8:44 AM EDT [facility] Squamous Epithelial 6-10 0 - 10 /HPF 12/09/2024 8:44 AM EDT [facility] Urine MID-STREAM URINE SPECIMEN / Unknown 12/09/2024 8:15 AM EDT 12/09/2024 8:18 AM EDT Narrative [facility] - 12/09/2024 8:44 AM EDT A negative leukocyte esterase AND negative nitrite test or absence of pyuria (urine WBC count <= 5-10) make a UTI (urinary tract infection) very unlikely in a non-neutropenic adult (<=5% likelihood in many studies). A positive leukocyte esterase, nitrite and/or pyuria is a nonspecific result. This can be seen in conditions other than a UTI e.g. asymptomatic bacteriuria, gynecologic infections, sexually transmitted infections, and noninfectious conditions (positive predictive value for UTI around 50%) John Ramirez MD 98 GENERAL LAB Final Resul t Performing Organization Address [facility] Co de Phone Number S PATHOLOGY LABORATORY [address] [place], [place] [phone] * HCG URINE (12/09/2024 8:15 AM EDT) HCG, Urine Negative Negative 12/09/2024 8:33 AM EDT [facility] Urine URINE SPECIMEN / Unknown 12/09/2024 8:15 AM EDT 12/09/2024 8:18 AM EDT John Ramirez MD 98 GENERAL LAB Final Resul t Performing Organization Address [facility] de Phone Number [facility] [address] [place], [place] [phone] * CBC WITH DIFFERENTIAL (12/09/2024 8:03 AM EDT) WBC 6.6 4.5 - 11.5 K/uL 12/09/2024 8:31 AM EDT [facility] RBC 4.87 4.00 - 5.20 M/uL 12/09/2024 8:31 AM EDT [facility] Hemoglobin 13.8 12.0 - 15.0 g/dL 12/09/2024 8:31 AM EDT [facility] Hematocrit 38.9 36.0 - 46.0 % 12/09/2024 8:31 AM EDT [facility] MCV 80 80 - 100 fL 12/09/2024 8:31 AM EDT [facility] MCH 28.3 26.0 - 34.0 pg 12/09/2024 8:31 AM EDT S [facility] MCHC 35.4 32.0 - 35.9 g/dL 12/09/2024 8:31 AM EDT [facility] Platelet 259 150 - 400 K/uL 12/09/2024 8:31 AM EDT [facility] RDW-CV 12.8 11.5 - 14.5 % 12/09/2024 8:31 AM EDT [facility] MPV 8.3 7.5 - 11.2 fL 12/09/2024 8:31 AM EDT [facility] Neutrophils 63.1 31.0 - 76.0 % 12/09/2024 8:31 AM EDT [facility] Neutrophil # 4.14 1.50 - 8.00 K/uL 12/09/2024 8:31 AM EDT [facility] Lymphocytes 25.3 24.0 - 44.0 % 12/09/2024 8:31 AM EDT [facility] Lymphocytes # 1.66 1.00 - 4.80 K/uL 12/09/2024 8:31 AM EDT [facility] Monocytes 10.0 2.0 - 11.0 % 12/09/2024 8:31 AM EDT [facility] Monocyte # 0.66 0.20 - 1.00 K/uL 12/09/2024 8:31 AM EDT [facility] Eosinophil 1.2 0.1 - 4.0 % 12/09/2024 8:31 AM EDT [facility] Eosinophil # 0.08 0.00 - 0.70 K/uL 12/09/2024 8:31 AM EDT [facility] Basophils 0.3 <=1.9 % 12/09/2024 8:31 AM EDT [facility] Basophil # 0.02 0.00 - 0.20 K/uL 12/09/2024 8:31 AM EDT [facility] MDW 17 <=20 12/09/2024 8:31 AM EDT [facility] Blood BLOOD SPECIMEN / Unknown Venipuncture / Unknown 12/09/2024 8:03 AM EDT 12/09/2024 8:15 AM EDT us John Ramirez MD EC LAB ORDER ONLY Final Res ult [facility] [address] [place] [address] * (ABNORMAL) LIPASE (12/09/2024 8:03 AM EDT) Lipase 9(L) 11 - 82 IU/L 12/09/2024 8:41 AM EDT [facility] Blood BLOOD SPECIMEN / Unknown Venipuncture / Unknown 12/09/2024 8:03 AM EDT 12/09/2024 8:15 AM EDT John Ramirez MD 98 GENERAL LAB Final Resul t Performing Organization Address [facility] Co de Phone Number [facility] [address] [place] [address] * (ABNORMAL) HEPATIC FUNCTION PANEL (12/09/2024 8:03 AM EDT) Albumin 4.9 3.5 - 5.7 g/dL 12/09/2024 8:41 AM EDT [facility] Bilirubin, Direct 0.16 0.03 - 0.18 mg/dL 12/09/2024 8:41 AM EDT [facility] Bilirubin, Total 1.2(H) 0.3 - 1.0 mg/dL 12/09/2024 8:41 AM EDT [facility] Comment:Note updated referen ce range. Alkaline Phosphatase 55 34 - 104 IU/L 12/09/2024 8:41 AM EDT [facility] ALT (SGPT) 9 7 - 52 IU/L 12/09/2024 8:41 AM EDT [facility] AST (SGOT) 10(L) 13 - 39 IU/L 12/09/2024 8:41 AM EDT [facility] Protein, Total 7.2 6.1 - 7.9 g/dL 12/09/2024 8:41 AM EDT [facility] Comment:Note updated referen ce range. Blood BLOOD SPECIMEN / Unknown Venipuncture / Unknown 12/09/2024 8:03 AM EDT 12/09/2024 8:15 AM EDT John Ramirez MD 98 GENERAL LAB Final Resul t [facility] [address] [place] [address] * BASIC METABOLIC PANEL (12/09/2024 8:03 AM EDT) Glucose 94 74 - 109 mg/dL 12/09/2024 8:41 AM EDT [facility] Sodium 140 136 - 145 mmol/L 12/09/2024 8:41 AM EDT [facility] Potassium 3.7 3.5 - 5.0 mmol/L 12/09/2024 8:41 AM EDT [facility] Carbon Dioxide 28 21 - 31 mmol/L 12/09/2024 8:41 AM EDT [facility] Chloride 102 98 - 107 mmol/L 12/09/2024 8:41 AM EDT [facility] Blood Urea Nitrogen 17 7 - 25 mg/dL 12/09/2024 8:41 AM EDT [facility] Creatinine 0.67 0.60 - 1.20 mg/dL 12/09/2024 8:41 AM EDT [facility] Calcium 9.6 8.6 - 10.3 mg/dL 12/09/2024 8:41 AM EDT [facility] Anion Gap 14 10 - 20 12/09/2024 8:41 AM EDT [facility] Estimated GFR (CKD-EPI) 121 >=60 mL/min/1. 73sqm 12/09/2024 8:41 AM EDT [facility] Comment: 2020 CKD EPI Equation using Creatinine without Race Comment: Estimated glomerular filtration rate (eGFR) is calculated without a race coefficient. Values should be interpreted in the context of the patient's full clinical presentation. Reference: 1. Jon C, Coy M, [place] SNYDER, et al.. A Unifying Approach for GFR Estimation: Recommendations of the NKF-ASN Task Force on Reassessing the Inclusion of Race in Diagnosing Kidney Disease. [place] Journal of Kidney Diseases 2022;79(2):268- 88.e1. 2. N Engl J Med 1 Vol. 385 Issue 19 Pages 2918-7959 Blood BLOOD SPECIMEN / Unknown Venipuncture / Unknown 12/09/2024 8:03 AM EDT 12/09/2024 8:15 AM EDT us John Ramirez MD 98 GENERAL LAB Final Resul t [facility] [address] [place] [address] documented in this encounter Visit Diagnoses Diagnosis Epigastric pain- Primary Abdominal pain, epigastric Hyperbilirubinemia Disorders of bilirubin excretion Chronic abdominal pain Abdominal pain, unspecified site Nausea and vomiting, unspecified vomiting type Acute cystitis without hematuria Acute cystitis Dehydration Dyspepsia Dyspepsia and other specified disorders of function of stomach Chronic diarrhea Diarrhea Epigastric pain Abdominal pain, epigastric Contact with and (suspected) exposure to other viral communicable diseases 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 status migrainosus, not intractable Hemiplegic migraine, without mention of intractable migraine without mention of status migrainosus Hyperbilirubinemia Disorders of bilirubin excretion Nausea and vomiting, unspecified vomiting type Chronic abdominal pain Abdominal pain, unspecified site 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 status migrainosus, not intractable Hemiplegic migraine, without mention of intractable migraine without mention of status migrainosus documented in this encounter Administered Medications Inactive Administered Medications - up to 3 most recent administrations Medication Order MAR Action Action Date Dose Rate Site acetaminophen (TYLENOL) tablet 650 mg, Oral, EVERY 4 HOURS PRN, Starting on Mon12/09/24 at 1203, Until Mon12/12/24 at 1637, Mild Pain (pain score 1,2,3) Given 12/11/2024 8:57 PM EDT 650 mg acetaminophen (TYLENOL) tablet 1,000 mg, Oral, EVERY 6 HOURS PRN, Starting on Mon12/12/24 at 1637, Until Mon12/13/24 at 0837, Mild Pain (pain score 1,2,3), Moderate Pain (pain score 4,5,6) Given 12/13/2024 3:46 AM EDT 1,000 mg Given 12/12/2024 4:41 PM EDT 1,000 mg acetaminophen (TYLENOL) tablet 1,000 mg, Oral, Every 6 hours, First dose (after last modification) on Mon12/13/24 at 0930, Until Discontinued Given 12/14/2024 3:37 PM EDT 1,000 mg Given 12/14/2024 9:28 AM EDT 1,000 mg Given 12/14/2024 3:24 AM EDT 1,000 mg buPROPion (WELLBUTRIN) tablet 100 mg, Oral, 2 TIMES DAILY, First dose on Mon12/09/24 at 1300, Until Discontinued Given 12/14/2024 9:28 AM EDT 100 mg Given 12/13/2024 8:53 PM EDT 100 mg Given 12/13/2024 10:22 AM EDT 100 mg cefTRIAXone (ROCEPHIN) 1,000 mg in sodium chloride 9.6 mL IV push 1,000 mg, Intravenous, Once, 1 dose, On Mon12/09/24 at 1011, at 192 mL/hr IV New Bag 12/09/2024 9:51 AM EDT 1,000 mg 192 mL/hr cetirizine (ZyrTEC) tablet 10 mg, Oral, DAILY, First dose on Mon12/13/24 at 2000, Until Discontinued Given 12/13/2024 8:53 PM EDT 10 mg dextrose 5 % and NaCl 0.9 % iv infusion Intravenous, at 125 mL/hr, CONTINUOUS, Starting on Mon12/09/24 at 1300, Until Mon12/11/24 at 2136 IV New Bag 12/11/2024 11:55 AM EDT 125 mL/hr IV Resume 12/10/2024 11:20 PM EDT 125 mL/hr IV New Bag 12/10/2024 2:27 PM EDT 125 mL/hr dicyclomine (BENTYL) 10 MG capsule 20 mg, Oral, 4 TIMES DAILY, First dose on Mon12/12/24 at 0900, Until Discontinued Given 12/13/2024 10:22 AM EDT 20 mg Given 12/12/2024 9:20 PM EDT 20 mg Given 12/12/2024 4:41 PM EDT 20 mg droPERidol (INAPSINE) 2.5 MG/ML injection 1.25 mg, Intravenous, ONCE, 1 dose, On Mon12/09/24 at 1000Indications:Nausea and Vomiting Given 12/09/2024 9:42 AM EDT 1.25 mg famotidine (PEPCID) tablet 20 mg, Oral, DAILY PRN, Starting on Mon12/09/24 at 1203, Until 12/14/24 at 2041, Heartburn Given 12/13/2024 10:22 AM EDT 20 mg HYDROmorphone (DILAUDID) 1 mg/mL injection 1 mg, Intravenous, ONCE, 1 dose, On Mon12/09/24 at 0814Indications:Moderate to Severe Pain Given 12/09/2024 7:58 AM EDT 1 mg HYDROmorphone (DILAUDID) 1 mg/mL injection 1 mg, Intravenous, ONCE, 1 dose, On Mon12/09/24 at 1000Indications:Moderate to Severe Pain Given 12/09/2024 9:41 AM EDT 1 mg HYDROmorphone (DILAUDID) 1 mg/mL injection 0.5 mg, Intravenous, EVERY 3 HOURS PRN, Starting on Mon12/09/24 at 1203, Until Mon12/10/24 at 1424, Severe Pain (pain score 7,8,9,10) Given 12/10/2024 10:48 AM EDT 0.5 mg Given 12/10/2024 3:26 AM EDT 0.5 mg Given 12/09/2024 11:39 PM EDT 0.5 mg HYDROmorphone (DILAUDID) 1 mg/mL injection 1 mg, Intravenous, EVERY 4 HOURS PRN, 6 doses, Starting on Mon12/10/24 at 1424, Until Mon12/11/24 at 1201, Severe Pain (pain score 7,8,9,10), Moderate Pain (pain score 4,5,6) Given 12/11/2024 9:25 AM EDT 1 mg Given 12/11/2024 4:07 AM EDT 1 mg Given 12/10/2024 11:54 PM EDT 1 mg HYDROmorphone (DILAUDID) 1 mg/mL injection 1 mg, Intravenous, EVERY 4 HOURS PRN, 1 dose, Starting on Mon12/11/24 at 1200, Until Mon12/11/24 at 1519, Severe Pain (pain score 7,8,9,10) Given 12/11/2024 3:19 PM EDT 1 mg HYDROmorphone (DILAUDID) 1 mg/mL injection 1 mg, Intravenous, EVERY 4 HOURS PRN, Starting on Mon12/13/24 at 0846, Until Mon12/13/24 at 1527, Breakthrough Pain Given 12/13/2024 11:47 AM EDT 1 mg HYDROmorphone (DILAUDID) tablet 2 mg, Oral, EVERY 6 HOURS PRN, Starting on Mon12/11/24 at 2052, Until Mon12/11/24 at 2233, pain severe (7-10), first line Given 12/11/2024 9:48 PM EDT 2 mg HYDROmorphone (DILAUDID) tablet 4 mg, Oral, EVERY 6 HOURS PRN, Starting on Mon12/12/24 at 0300, Until Mon12/12/24 at 1142, pain severe (7-10), first line Given 12/12/2024 11:11 AM EDT 4 mg HYDROmorphone (DILAUDID) tablet 2 mg, Oral, Once, 1 dose, On Mon12/11/24 at 2330 Given 12/11/2024 10:46 PM EDT 2 mg HYDROmorphone (DILAUDID) tablet 2 mg, Oral, EVERY 6 HOURS PRN, Starting on Mon12/12/24 at 1141, Until Mon12/13/24 at 1527, pain severe (7-10), first line Given 12/13/2024 10:31 AM EDT 2 mg Given 12/13/2024 4:12 AM EDT 2 mg Given 12/12/2024 9:03 PM EDT 2 mg HYDROmorphone (DILAUDID) tablet 4 mg, Oral, EVERY 6 HOURS PRN, Starting on Mon12/13/24 at 1526, Until Mon12/13/24 at 1919, Severe Pain (pain score 7,8,9,10) Given 12/13/2024 4:19 PM EDT 4 mg HYDROmorphone (DILAUDID) tablet 2 mg, Oral, EVERY 4 HOURS PRN, Starting on Mon12/13/24 at 1527, Until Mon12/14/24 at 2041, Moderate Pain (pain score 4,5,6) Given 12/14/2024 9:28 AM EDT 2 mg Given 12/14/2024 3:24 AM EDT 2 mg Given 12/13/2024 9:57 PM EDT 2 mg HYDROmorphone (DILAUDID) tablet 2 mg, Oral, Once, 1 dose, On 12/14/24 at 1130 Given 12/14/2024 11:05 AM EDT 2 mg HYDROmorphone (DILAUDID) tablet 4 mg, Oral, EVERY 6 HOURS PRN, Starting on 12/14/24 at 1049, Until 12/14/24 at 2041, Severe Pain (pain score 7,8,9,10) Given 12/14/2024 2:11 PM EDT 4 mg ketorolac (TORADOL) 15 MG/ML injection 15 mg, Intravenous, EVERY 6 HOURS PRN, Starting on Mon12/09/24 at 1203, Until Mon12/13/24 at 0837, Moderate Pain (pain score 4,5,6) Given 12/13/2024 1:30 AM EDT 15 mg Given 12/12/2024 2:02 PM EDT 15 mg Given 12/12/2024 4:32 AM EDT 15 mg lactated ringers iv bolus 1,000 mL, at 9,999 mL/hr, Intravenous, FLUID BOLUS, 1 dose, On Mon12/09/24 at 0814 IV New Bag 12/09/2024 7:58 AM EDT 1,000 mL 9999 mL/hr LORazepam (ATIVAN) tablet 1 mg, Oral, AT BEDTIME PRN, 1 dose, Starting on Mon12/09/24 at 1203, Until Mon12/11/24 at 2246, Anxiety Given 12/11/2024 10:46 PM EDT 1 mg magnesium sulfate 2 GM/50ML in 50 mL ivpb 2,000 mg, Intravenous, ONCE, 1 dose, On Mon12/13/24 at 2000 IV New Bag 12/13/2024 7:32 PM EDT 2,000 mg 25 mL/hr metoclopramide (REGLAN) 5 MG/ML injection 10 mg, Intravenous, EVERY 6 HOURS PRN, Starting on Mon12/09/24 at 1203, Until Mon12/13/24 at 1519, Use metoclopramide (Reglan) if nausea was not controlled after 30 minutes of the ondansetron (Zofran) administration. Given 12/12/2024 2:02 PM EDT 10 mg Given 12/11/2024 11:49 AM EDT 10 mg Given 12/10/2024 11:18 PM EDT 10 mg metoclopramide (REGLAN) 5 MG/ML injection 10 mg, Intravenous, ONCE, 1 dose, On Mon12/13/24 at 2000 Given 12/13/2024 7:32 PM EDT 10 mg ondansetron (ZOFRAN) 4 MG/2ML injection 4 mg, Intravenous, ONCE, 1 dose, On Mon12/09/24 at 0814 Given 12/09/2024 7:58 AM EDT 4 mg ondansetron (ZOFRAN) 4 MG/2ML injection 4 mg, Intravenous, EVERY 6 HOURS PRN, Starting on Mon12/09/24 at 1203, Until Mon12/13/24 at 1519 Given 12/13/2024 10:23 AM EDT 4 mg Given 12/12/2024 11:07 AM EDT 4 mg Given 12/11/2024 10:19 PM EDT 4 mg ondansetron (ZOFRAN) 4 MG/2ML injection 4 mg, Intravenous, EVERY 6 HOURS PRN, Starting on Mon12/13/24 at 1519, Until Mon12/14/24 at 2041 polyethylene glycol (COLYTE) 420 g oral solution flavored 4,000 mL, Oral, ONCE, 1 dose, On Mon12/10/24 at 1900 Given 12/10/2024 6:45 PM EDT 4,000 mL polyethylene glycol (COLYTE) 420 g oral solution flavored 4,000 mL, Oral, ONCE, 1 dose, On Mon12/11/24 at 0700 Given 12/11/2024 6:40 AM EDT 4,000 mL polyethylene glycol (MIRALAX) 17 g packet 17 g, Oral, AT BEDTIME, First dose on Mon12/13/24 at 2200, Until Discontinued psyllium (METAMUCIL SUGAR FREE) 51.7 % packet 1 Packet, Oral, 2 TIMES DAILY, First dose on Mon12/10/24 at 1500, Until Discontinued Given 12/14/2024 9:28 A M EDT 1 Packet Given 12/13/2024 8:53 PM EDT 1 Packet Given 12/12/2024 9:20 PM EDT 1 Packet scopolamine (TRANSDERM-SCOP) 1 MG/3DAYS patch 1 mg, Transdermal, EVERY 72 HOURS, First dose on Mon12/13/24 at 1600, Until Discontinued Patch Applied 12/13/2024 5:18 PM EDT 1 mg sodium chloride 0.9 % iv infusion Intravenous, at 75 mL/hr, CONTINUOUS, Starting on Mon12/11/24 at 1330, Until Mon12/11/24 at 2135 IV New Bag 12/11/2024 3:27 PM EDT 75 mL/hr venlafaxine (EFFEXOR XR) 24 hour capsule 225 mg, Oral, EVERY MORNING, First dose on Mon12/09/24 at 1300, Until Discontinued Given 12/14/2024 9:28 AM EDT 225 mg Given 12/13/2024 10:22 AM EDT 225 mg Given 12/12/2024 11:07 AM EDT 225 mg documented in this encounter Active and Recently Administered Medications Times are shown in EDT. Scheduled Medication Order 12/12/2024 12/13/2024 12/14/2024 acetaminophen (TYLENOL) tablet 1,000 mg, Oral, Every 6 hours, First dose (after last modification) on Mon12/13/24 at 0930, Until Discontinued 102 (Given - Provider: Phil Varela RN)1718 (Given - Provider: Phil Varela RN)2129 (Hold/Not Given - Provider: Conner De La Cruz RN - Reason: Clinical contraindications - Comment: Too Soon) 0324 (Given - Provider: Conner De La Cruz RN)0928 (Given - Provider: Phil Varela RN)153 (Given - Provider: Phil Varela RN) buPROPion (WELLBUTRIN) tablet 100 mg, Oral, 2 TIMES DAILY, First dose on Mon12/09/24 at 1300, Until Discontinued 1107 (Given - Provider: Neel Vanegas RN)212 (Given - Provider: Conner De La Cruz RN) 102 (Given - Provider: Phil Varela RN)2052 (Given - Provider: Conner De La Cruz RN) 0928 (Given - Provider: Phil Varela RN) cetirizine (ZyrTEC) tablet 10 mg, Oral, DAILY, First dose on Mon12/13/24 at 2000, Until Discontinued 2052 (Given - Provider: Conner De La Cruz RN) 0900 (Hold/Not Given - Provider: Phil Varela RN - Reason: Patient refused) dicyclomine (BENTYL) 10 MG capsule (CANCELED) 20 mg, Oral, 4 TIMES DAILY, First dose on Mon12/12/24 at 0900, Until Discontinued 1107 (Given - Provider: Neel Vanegas RN)1401 (Given - Provider: Neel Vanegas RN)1641 (Given - Provider: Neel Vanegas RN)2120 (Given - Provider: Conner De La Cruz, MORE) 1022 (Given - Provider: Phil Varela, MORE)1340 (Hold/Not Given - Provider: Phil Varela RN - Reason: Patient refused) HYDROmorphone (DILAUDID) tablet (COMPLETED) 2 mg, Oral, Once, 1 dose, On 12/14/24 at 1130 1105 (Given - Provider: Phil Varela RN) magnesium sulfate 2 GM/50ML in 50 mL ivpb (COMPLETED) 2,000 mg, Intravenous, ONCE, 1 dose, On Mon12/13/24 at 1999 193 (IV New Bag - Provider: Conner De La Cruz, MORE) metoclopramide (REGLAN) 5 MG/ML injection (COMPLETED) 10 mg, Intravenous, ONCE, 1 dose, On Mon12/13/24 at 1999 193 (Given - Provider: Conner De La Cruz, MORE) polyethylene glycol (MIRALAX) 17 g packet 17 g, Oral, AT BEDTIME, First dose on Mon12/13/24 at 2200, Until Discontinued 2100 (Hold/Not Given - Provider: Conner De La Cruz, MORE - Reason: Patient refused) psyllium (METAMUCIL SUGAR FREE) 51.7 % packet 1 Packet, Oral, 2 TIMES DAILY, First dose on Mon12/10/24 at 1500, Until Discontinued 1107 (Given - Provider: Neel Vanegas RN)2120 (Given - Provider: Conner De La Cruz, MORE) 1023 (Hold/Not Given - Provider: Phil Varela RN - Reason: Patient refused)2052 (Given - Provider: Conner De La Cruz, MORE) 0928 (Given - Provider: Phil Varela, MORE) scopolamine (TRANSDERM-SCOP) 1 MG/3DAYS patch (CANCELED) 1 mg, Transdermal, EVERY 72 HOURS, First dose on Mon12/13/24 at 1600, Until Discontinued 1718 (Patch Applied - Provider: Phil Varela RN) venlafaxine (EFFEXOR XR) 24 hour capsule 225 mg, Oral, EVERY MORNING, First dose on Mon12/09/24 at 1300, Until Discontinued 1107 (Given - Provider: Neel Vanegas RN) 1022 (Given - Provider: Phil Varela RN) 0928 (Given - Provider: Phil Varela RN) PRN Medication Order 12/12/2024 12/13/2024 12/14/2024 acetaminophen (TYLENOL) tablet (CANCELED) 1,000 mg, Oral, EVERY 6 HOURS PRN, Starting on Ela 12/12/24 at 1637, Until Mon12/13/24 at 0837, Mild Pain (pain score 1,2,3), Moderate Pain (pain score 4,5,6) 1641 (Given - Provider: Neel Vanegas RN) 0346 (Given - Provider: Conner De La Cruz, MORE) famotidine (PEPCID) tablet 20 mg, Oral, DAILY PRN, Starting on Mon12/09/24 at 1203, Until 12/14/24 at 2041, Heartburn 1022 (Given - Provider: Phil Varela RN) HYDROmorphone (DILAUDID) 1 mg/mL injection (CANCELED) 1 mg, Intravenous, EVERY 4 HOURS PRN, Starting on Mon12/13/24 at 0846, Until Mon12/13/24 at 1527, Breakthrough Pain 1147 (Given - Provider: Phil Varela RN) HYDROmorphone (DILAUDID) tablet (CANCELED) 4 mg, Oral, EVERY 6 HOURS PRN, Starting on Ela 12/12/24 at 0300, Until Ela 12/12/24 at 1142, pain severe (7-10), first line 1111 (Given - Provider: Neel Vanegas RN) HYDROmorphone (DILAUDID) tablet (CANCELED) 2 mg, Oral, EVERY 6 HOURS PRN, Starting on Ela 12/12/24 at 1141, Until Mon12/13/24 at 1527, pain severe (7-10), first line 2103 (Given - Provider: Connerjazlyn De La Cruz RN) 0412 (Given - Provider: Conner De La Cruz RN)1031 (Given - Provider: Phil Varela RN) HYDROmorphone (DILAUDID) tablet (CANCELED) 4 mg, Oral, EVERY 6 HOURS PRN, Starting on Mon12/13/24 at 1526, Until Mon12/13/24 at 1919, Severe Pain (pain score 7,8,9,10) 1619 (Given - Provider: Osmar Berry RN) HYDROmorphone (DILAUDID) tablet 2 mg, Oral, EVERY 4 HOURS PRN, Starting on Mon12/13/24 at 1527, Until 12/14/24 at 2041, Moderate Pain (pain score 4,5,6) 2157 (Given - Provider: Conner De La Cruz RN) 0324 (Given - Provider: Conner De La Cruz RN)0928 (Given - Provider: Phil Varela RN) HYDROmorphone (DILAUDID) tablet 4 mg, Oral, EVERY 6 HOURS PRN, Starting on 12/14/24 at 1049, Until 12/14/24 at 2041, Severe Pain (pain score 7,8,9,10) 1411 (Given - Provider: Phil Varela RN - Comment: Communicate with MD to administer 4 mg meds at 1400) ketorolac (TORADOL) 15 MG/ML injection (CANCELED) 15 mg, Intravenous, EVERY 6 HOURS PRN, Starting on Mon12/09/24 at 1203, Until Mon12/13/24 at 0837, Moderate Pain (pain score 4,5,6) 0432 (Given - Provider: Mehul Prasad RN)1402 (Given - Provider: Neel Vanegas RN) 0130 (Given - Provider: Conner De La Cruz RN) metoclopramide (REGLAN) 5 MG/ML injection (CANCELED) 10 mg, Intravenous, EVERY 6 HOURS PRN, Starting on 12/09/24 at 1203, Until Mon12/13/24 at 1519, Use metoclopramide (Reglan) if nausea was not controlled after 30 minutes of the ondansetron (Zofran) administration. 1402 (Given - Provider: Neel Vanegas RN) ondansetron (ZOFRAN) 4 MG/2ML injection (CANCELED) 4 mg, Intravenous, EVERY 6 HOURS PRN, Starting on 12/09/24 at 1203, Until Mon12/13/24 at 1519 1107 (Given - Provider: Neel Vanegas RN) 1023 (Given - Provider: Phil Varela RN) ondansetron (ZOFRAN) 4 MG/2ML injection 4 mg, Intravenous, EVERY 6 HOURS PRN, Starting on Mon12/13/24 at 1519, Until Mon12/14/24 at 2041 documented in this encounter
--- OUTSIDE RECORDS SUMMARY | 2024-12-11 13:00 | XMS_ITS | Encounter Summary ---
Author Organization [facility] Address [address] [place] [address] Care Team Providers Care Keeper Helper Name Role Phone Unavailable Primary Care Provider Unavailabl e Reason for Visit * Reason Comments Abdominal [...] unspecified Chronic abdominal pain Procedures N/A [facility] [address] [place] [phone] Phone: tel: [facility] [address] [place] [phone] Phone: tel: Referral ID Status Reason Start Date Expiration Date Visits Re quested Visits Authorized [id number] 3 3 Encounter Details Date Type Department Care Team (Latest Contact Info) Description 12/11/2024 1:00 PM EDT - 12/11/2024 2:00 PM EDT Surgery [facility] Multispecialty Endoscopy [address] [place], [place] [phone] Stella Weinstein DO [address] [place], [place] [id number] ESOPHAGOGASTRODUODENOSCOPY AND COLONOSCOPY Surgery Details Date/Time Status Location OR Service Patient Class Case Class Case Type Trauma Case? 12/11/2024 1:00 PM Posted Multi Specialty Endoscopy ENDO 02 Gastroenterology Inpatient Elective Routine scheduled Panel 1 Procedure LRB Anes Op Region Wound Class Comments ESOPHAGOGASTRODUODENOSCOPY A ND COLONOSCOPY N/A Moderate Sedation Surgeon Surgeon Role Service Panel Stella Weinstein DO Primary Gastroenterology 1 documented in this encounter Social History Tobacco Use Types Packs/Day Years Used Date Smoking Tobacco: Never Assessed [facility] Utilities Answer Date Recorded In the past [...] Sign Reading Time Taken Comments Blood Pressure 154/107 12/11/2024 12:45 PM EDT Pulse 85 12/11/2024 12:45 PM EDT Temperature 36.7 C (98 F) 12/11/2024 12:45 PM EDT Respiratory Rate 16 12/11/2024 12:45 PM EDT Oxygen Saturation 98% 12/11/2024 12:45 PM EDT Inhaled Oxygen Concentration - - [...] of your future appointment, please [facility] ([phone]), THREE (3) days before your appointment. Thank you * Attachments The following attachments cannot be sent through Care Everywhere. * Urinary tract infections in adults (Cypriot) * Abdominal pain (Cypriot) * Nausea and vomiting in adults (Cypriot) documented in this encounter Medications at Time [...] from the original note were not included. [place] [address] FAMILY MEDICINE INPATIENT SERVICE PROGRESS NOTE Negro Sabillon 29 year old 140 lbs MRN/Room: [id number]/AC3-707/2 : 1995 Admit Date: 12/09/2024 Chief Complaint [...] ceftriaxone. Patient was recommended for admission to [facility] for medical management. Upper and lower [...] Outpatient Follow-up Recommendations: PCP, patient follows in [place] with non [facility] provider Gastroenterology to set up outpatient follow-up Plan is preliminary until discussed with/finalized by attending physician, Dr. Christina Truong MD Family Medicine PGY-1 Silviano Ewing MD Electronic Warfare Specialist, PGY-1 FM Team Pager: [phone] Cosigned by Christina Tony MD at 12/15/2024 [...] from the original note were not included. [address] [phone] FAMILY MEDICINE INPATIENT SERVICE PROGRESS NOTE Negro Sabillon 29 year old 140 lbs MRN/Room: [id number]/AC3-707/2 : 1995 Admit Date: 12/09/2024 Chief Complaint [...] ceftriaxone. Patient was recommended for admission to [facility] for medical management. Upper and lower [...] Outpatient Follow-up Recommendations: PCP, patient follows in [place] with non [facility] provider Gastroenterology to set up outpatient follow-up Plan is preliminary until discussed with/finalized by attending physician, Dr. Christina Ewing MD Electronic Warfare Specialist, PGY-1 FM Team Pager: [phone] Cosigned by Christina Tony MD at 12/15/2024 [...] placed, cholecystostomy for 6 weeks. Eduard-en-y with [place] in 2018. Then G tube 2020 for [...] Fingerstick Glucose Glucose 12/13/24 1825 95 Interventions: BREAK AND LOAD OPERATOR called to the bedside for patient being [...] this time. Sign out given to oncoming BREAK AND LOAD OPERATOR nurses. 12/13/24 1858 NIH Stroke Scale 1a. [...] bedside and patient was breathing and unresponsive. BREAK AND LOAD OPERATOR was called and on bedside. Patient CT head was done without contrast. Patient came back and assessed by neurology team. BREAK AND LOAD OPERATOR was on bedside. Patient was responsive. Patient has new order for migraine headache cocktail (2 gm Mg and Reglan 10 mg IV push) was administered by oncoming nurse. Called pharmacy to tube up the other medications. 1930: patient is responsive now and had headache. [...] when notreported separately) Referring/communicating with other health child care assistant - when not reported separately Charting in [facility] Uzair Richardson MD Neurology service pager (for floor and ED consults): [phone] * Tiffanie Blanca RN - 12/13/2024 6:30 PM EDT Called to room by patient's roommate as she was concerned for patient. Patient had a change in LOC from this morning so Rapid Response was activated. VS obtained and labs drawn per verbal orders. Rapid at bedside and took over. Patient off the floor to CT around 1844. * Devonte Ro MD - 12/13/2024 9:27 AM EDT Department of Gastroenterology and Hepatology [facility] Brief Consult Follow Up Note GI Attending Physician: Dr. Hermann Jerome MD Location: [place] [address] Attending Physician: Tigre Guevara MD Date of admission: 12/09/2024 7:36 AM Reason for Consult and Assessment Negro Sabillon is a 29 year old female with PMH CCY c/b biliary strictures/CBD stricture s/p stents, extrahepatic bile duct resection and Eduard-en-Y hepaticojejunostomy, prior PEG-J, Hodgkin's lymphoma (07/2021) s/p chemo. GI c/s for AoC abdominal pain I/s/o complex GI history -Used to follow at [facility] but unable to f/u d/t insurance. Lives in [place], told by her local GI practice to go to [facility] practice d/t complex abdominal hx -P/w 3 weeks [...] Gastroenterology Fellow Division of Gastroenterology & Hepatology [facility] 12/13/24, 9:27 AM * Carlo Truong MD - 12/13/2024 6:58 AM EDT Images from the original note were not included. [address] [address] FAMILY MEDICINE INPATIENT SERVICE PROGRESS NOTE Negro Sabillon 29 year old 140 lbs MRN/Room: [id number]/AC3-707/2 : 1995 Admit Date: 12/09/2024 Chief Complaint [...] ceftriaxone. Patient was recommended for admission to [facility] for medical management. Upper and lower [...] Temp src Pulse Resp SpO2 O2 Device 12/13/241929 -- -- -- -- -- -- Room air 12/13/241905 160/97 -- -- 92 18 98 % -- 12/13/241899 162/109 -- -- 80 18 100 % Room air 12/13/24 185 182/102 -- -- 86 17 100 % Room air 12/13/24 185 166/105 -- -- 79 18 98 % -- 12/13/241853 173/101 -- -- 83 17 100 % -- 12/13/241851 180/103 -- -- 84 18 98 % -- 12/13/240 162/92 -- -- 80 15 100 % Room air 12/13/248 163/104 -- -- 77 18 99 % -- 12/13/241845 186/91 -- -- 81 18 98 % -- 12/13/244 177/105 -- -- 81 18 99 % -- 12/13/241841 181/105 -- -- 90 -- 99 % -- 12/13/240 187/98 -- -- -- -- 98 % Room air 12/13/24 1838 177/104 -- -- -- -- -- -- 12/13/241835 184/100 -- -- -- -- -- -- [...] Outpatient Follow-up Recommendations: PCP, patient follows in [place] with non [facility] provider Gastroenterology to set up outpatient follow-up Plan is preliminary until discussed with/finalized by attending physician, Dr. Christina Truong MD Family Medicine PGY-1 FM Team Pager: [phone] * Christina Tony MD - 12/12/2024 4:51 [...] discharge planning and needs as warranted. Allegra Armenta RN, BSN Case Management [phone] M-F 7:30-4:00 * Carlo Truong MD - 12/12/2024 5:58 AM EDT Images from the original note were not included. [place] [phone] FAMILY MEDICINE INPATIENT SERVICE PROGRESS NOTE Negro Sabillon 29 year old 140 lbs MRN/Room: [id number]/AC3-707/2 : 1995 Admit Date: 12/09/2024 Chief Complaint [...] ceftriaxone. Patient was recommended for admission to [facility] for medical management. Upper and lower [...] Outpatient Follow-up Recommendations: PCP, patient follows in [place] with non [facility] provider Gastroenterology to set up outpatient follow-up Plan is preliminary until discussed with/finalized by attending physician, Dr. Christina Truong MD Family Medicine PGY-1 FM Team Pager: [phone] * Roxanne Kellogg RN - 12/11/2024 10:10 AM EDT CM assessed patient at bedside. Name, , PCP with [facility], and address verified. Patient lives [...] POA and the forms were uploaded to [employer] at the [facility]. CM was unable to find the [...] ABUSE SERVICES No ADMISSION INSURANCE Other (comment) ([employer] EXCHANGE/[employer] PATHWAY HMO & PATHWAY X HMO) TRANSPORTATION TO AND/OR FROM APPOINTMENTS Drives Self;Family/Friend Provides Ride HOME OXYGEN No HOME HEALTH CARE PRIOR TO ADMISSION No DIALYSIS No DISCUSSSED WHAT HELP PATIENT WOULD NEED Yes SDOH Completed? Yes SDOH Risks Addressed - Do Not complete until all required jha are completed Yes DISCHARGE DISPOSITION STILL A PT Roxanne SINGH, METAL BENDING MACHINE OPERATOR/CDU Chemical Lab Technician Available: 8:00 am - 6:00 pm Work [...] undergo sedation with the assistance of anesthesia physician/GEOGRAPHIC INFORMATION SCIENTIST/AA team. Please see corresponding note for full [...] from the original note were not included. 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 Sabillon is a 29 year [...] decided to present to an outside hospital ([facility]) on 12/05. At the hospital, patient was [...] left this hospital frustration in presented to [facility] for further evaluation on 12/09. Review [...] ceftriaxone. Patient was recommended for admission to [facility] for medical management. ED Triage Vitals [...] Espana MD. This study was interpreted at [facility], [place], [place].MACRO: None Signed by: Fransisco Mora 12/05/2024 7:07 PM Dictation workstation: [id number] EKG: NA Meds/Intervention: Medications dextrose 5 % [...] 24 hour capsule (225 mg Oral Given 12/11/24924) psyllium (METAMUCIL SUGAR FREE) 51.7 % packet (1 Packet Oral Given 12/11/24923) HYDROmorphone (DILAUDID) 1 mg/mL injection (has no [...] MD Family Medicine PGY-1 FM Team Pager: [phone] [1] Past Medical History: Diagnosis Date Bile [...] in this encounter Consult Notes * Ame Saxena, OT - 12/12/2024 3:43 PM EDTAssociated Order(s): IP OCCUPATIONAL THERAPY SERVICE REQUEST Occupational Therapy Note OT orders received and chart reviewed. Pt demonstrated ability to ambulate within room with no device independently and reports being independent with ADL's throughout the day. Pt voiced no concerns with homegoing. Educated patient on importance of continuing to mobilize throughout hospital stay. OT screen and discharge consult. Ame Saxena OTR/L * Adelaida Barnes - 12/12/2024 9:11 AM EDT Images from the original note were not included. Dietitian vs DietaryTech: Dietary TechDiet Coin Teller Nutrition Screening Reason for visit: Positive nutrition [...] Order: Full Liquid % PO Intake: Decreased captain fire prevention bureau-going to order full liquid breakfast Intake Difficulties:Diarrhea - 0 points. 5' 7 Weight Only Weight 12/09/2024 12:06 PM 140 lb 12/11/2024 11:43 AM 140 lb UBW-140# per patient BMI Screening value: 21 or greater - 0 points % Weight Loss: None Weight Loss Screening Value: None Comments: Spoke with patient. Intake-appetite captain fire prevention bureau decreased, order breakfast currently. No food allergies. Weights-see above. Monitor diet advance-intake. Number of Points: 0 Nutritional Plan of Care: Less than or equal to 6 points: At this time, patient is at low nutritionrisk. DTR to provide routine follow up. Will continue to follow, Time spent on patient care: 30 minutes SAMANTHA Patterson (Nutrition) Pager #[phone]. [1] Past Medical History: Diagnosis Date Bile [...] not intractable Emmgality 6-7 years ago * Neema Leticia, PT - 12/11/2024 4:45 PM EDTAssociated Order(s): IP PHYSICAL THERAPY SERVICE REQUEST PHYSICAL THERAPY ACUTE EVALUATION Referral received, chart reviewed. Patient seen from 4:45 PM to 5:00 PM on [address] for 15 minutes. 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 Patient's mother and friend visiting during PT evaluation with patient's verbal permission. 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 COORDINATOR MINING PRODUCTS Status: Independent in mobility, ADL's, IADL's. Home: [...] 4 steps with 1 rails with Modified [place] with use of rail. Endurance: WFL Patient/Family Education: Instructed Patient in roles of therapy. Patient up in bed with Phone and call light in reach. Family members were sitting in chairs, bed was patient's option. DME: With Patients permission ordered no equipment via [employer] Order. If any questions contact [facility] DME Provider at [phone]. 12/11/2024 6 Clicks Basic Mobility PT Difficulty [...] recommended at this time. PLAN OF CARE: [place] Acute Physical Therapy Services. The evaluation findings and treatment plan were discussed with the patient/family. The patient/family indicated understanding and agreement with the plan. Leticia Bethea, PT NA = Not Assessed, I = Independent, CO = Modified Independent, Sup = Supervised, Set [...] Procedure Laterality Date Bunyunectomy BYPASS, GASTRIC EDUARD-EN-Y 2019 For complications status post 2018 cholecystectomy COLONOSCOPY [...] Hermann Jerome MD Patient: Negro Sabillon Location: CDU79/79 Reason for Consult: abdominal pain, complex GI [...] IBD. Has had pancreatitis before. Seen by [facility] GI, last seen 06/23/2023, at the [...] -Pt used to follow with GI at [facility] but unable to follow d/t insurance. Lives in [place] and was told by her local GI [...] was admitted at but ultimately transferred at [facility] d/t insurance issues. -She reports having [...] 4 GI Consult Pager (nights and weekends) [phone] SPLIT DOSE PREP (Ensure prep is discussed [...] John Ramirez MD, 10 mg at 12/10/24 0327 acetaminophen (TYLENOL) tablet, 650 mg, Oral, Q4H [...] involvement in the case. Reva Chavez MD, [facility] Gastroenterology & Hepatology [...] not needed - patient preferred language is Cypriot. The history is provided by the Patient. [...] last abdominal surgery was in 2019 at [facility]. She endorses prior cholecystectomy. Pt states she [...] then left given no bed available at [facility]. On presentation here, she does [...] push (0 mg Intravenous IV Stop 954) Imaging results as below: ED Course as [...] was to be admitted and transferred to [facility] for insurance reasons [facility] Dec 05, 2024 1640 Potassium is 3.3. Magnesium is normal. Once patient is finished with CT and is able to tolerate p.o., will replete with oral potassium pills. [PALLET STONE INSERTER] 1810 US right upper quadrant Nonobstructing right-sided nephrolithiasis otherwise unremarkable. [PALLET STONE INSERTER] 1912 CT abdomen pelvis did not show any [...] No pancreatitis [JE] ED Course User Index [VAN] John Ramirez MD 11:51 AM Order written [...] ceftriaxone. Patient was recommended for admission to [facility] for medical management. Upper and lower [...] 29 year old Surgical Contact Serial Number: [id number] Location: ENDO 02 Date: 12/11/2024 HAND I TUBE BENDER: Stella Weinstein DO ATTENDING:Stella Weinstein DO Procedure(s): [...] transillumination of right lower quadrant. Prep was Markesan Bowel Prep Right Colon: Entire colon seen well, Markesan Bowel Prep Transverse Colon: Entire colon seen well, Markesan Bowel Prep Left Colon:Entire colon seen well [...] not show internal hemorrhoids. Hyperbilirubinemia (Primary Diagnosis) [969612] Chronic abdominal pain [956933] Nausea and vomiting, unspecified vomiting type [3429495] Acute cystitis without hematuria [813596] Dehydration [276.51.ICD-9-CM] Dyspepsia [919145] Chronic diarrhea [646180] Epigastric pain [805618] ANATOMIC SPECIMEN: Yes SPECIMEN: ID Type Source [...] is having pain despite that. We to [facility] ER 5 days ago with pain and would not be admitted there due to insurance, waited therefor transfer bed for last 5 day but no bed available, but signed out and came to ED. CT/US there with no acute findings. No GI eval there. PCP at [facility] and Prior GI visit at [facility] (see note 06/23/23 ) ASSESSMENT/PLAN: She is [...] 06/23/23 [facility] reviewed and shows see above Picking Crew Supervisor not needed - patient preferred language is Cypriot.. ED Course as of 12/10/24 0839 Mon [...] was to be admitted and transferred to [facility] for insurance reasons Ela Dec 05, 2024 1640 Potassium is 3.3. Magnesium is normal. Once patient is finished with CT and is able to tolerate p.o., will replete with oral potassium pills. [PALLET STONE INSERTER] 1810 US right upper quadrant Nonobstructing right-sided nephrolithiasis otherwise unremarkable. [PALLET STONE INSERTER] 1912 CT abdomen pelvis did not show any [...] elevated from 0.9 from ED on 12/08/24 [] 0851 Lipase(!): 9 No pancreatitis [] ED Course User Index [] John Ramirez MD CT ABDOMEN PELVIS W IV CONTRAST; 12/05/2024 5:22 pm INDICATION: Signs/Symptoms:Abdominal pain. COMPARISON: Right upper quadrant ultrasound 12/05/2024 ACCESSION NUMBER(S): [id number] ORDERING CLINICIAN: FIDE ESQUIVEL TECHNIQUE: CT of [...] INDICATION: Signs/Symptoms:RUQ pain. COMPARISON: None. ACCESSION NUMBER(S): [id number] ORDERING CLINICIAN: FIDE ESQUIVEL TECHNIQUE: Multiple images [...] Info) Description 12/19/2024 11:00 AM EDT Telemedicine [facility] Internal Medicine [address] [place] [address] Marjorie Bustillos MD [address] [place] [address] 02/06/2025 3:00 PM EST Office Visit [facility] Gastroenterology [address] [place] [address] Nathanael Trimble MD [address] [place] [address] Pending Results Name Type Priority Associated Diagnoses [...] - 11.5 K/uL 12/14/2024 12:29 AM EDT [facility] RBC 4.83 4.00 - 5.20 M/uL 12/14/2024 12:29 AM EDT [facility] Hemoglobin 13.6 12.0 - 15.0 g/dL 12/14/2024 12:29 AM EDT [facility] Hematocrit 39.4 36.0 - 46.0 % 12/14/2024 12:29 AM EDT [facility] MCV 82 80 - 100 fL 12/14/2024 12:29 AM EDT [facility] MCH 28.2 26.0 - 34.0 pg 12/14/2024 12:29 AM EDT [facility] MCHC 34.5 32.0 - 35.9 g/dL 12/14/2024 12:29 AM EDT [facility] Platelet 269 150 - 400 K/uL 12/14/2024 12:29 AM EDT [facility] RDW-CV 13.0 11.5 - 14.5 % 12/14/2024 12:29 AM EDT [facility] MPV 8.2 7.5 - 11.2 fL 12/14/2024 12:29 AM EDT [facility] Neutrophils 52.3 31.0 - 76.0 % 12/14/2024 12:29 AM EDT [facility] Neutrophil # 4.13 1.50 - 8.00 K/uL 12/14/2024 12:29 AM EDT [facility] Lymphocytes 34.1 24.0 - 44.0 % 12/14/2024 12:29 AM EDT [facility] Lymphocytes # 2.69 1.00 - 4.80 K/uL 12/14/2024 12:29 AM EDT [facility] Monocytes 10.8 2.0 - 11.0 % 12/14/2024 12:29 AM EDT [facility] Monocyte # 0.85 0.20 - 1.00 K/uL 12/14/2024 12:29 AM EDT [facility] Eosinophil 2.3 0.1 - 4.0 % 12/14/2024 12:29 AM EDT [facility] Eosinophil # 0.18 0.00 - 0.70 K/uL 12/14/2024 12:29 AM EDT [facility] Basophils 0.5 <=1.9 % 12/14/2024 12:29 AM EDT [facility] Basophil # 0.04 0.00 - 0.20 K/uL 12/14/2024 12:29 AM EDT [facility] Blood BLOOD SPECIMEN / Unknown Venipuncture / Unknown 12/14/2024 12:10 AM EDT 12/14/2024 12:23 AM EDT us Carlo Truong MD EC LAB ORDER ONLY Final Result [facility] [address] [facility] [address] * BASIC METABOLIC PANEL (12/14/2024 12:10 AM EDT) Glucose 99 74 - 109 mg/dL 12/14/2024 12:49 AM EDT S PATHOLOGY LABORATORY Sodium 141 136 - 145 mmol/L 12/14/2024 12:49 AM EDT [facility] Potassium 3.8 3.5 - 5.0 mmol/L 12/14/2024 12:49 AM EDT [facility] Carbon Dioxide 29 21 - 31 mmol/L 12/14/2024 12:49 AM EDT [facility] Chloride 103 98 - 107 mmol/L 12/14/2024 12:49 AM EDT [facility] Blood Urea Nitrogen 14 7 - 25 mg/dL 12/14/2024 12:49 AM EDT [facility] Creatinine 0.70 0.60 - 1.20 mg/dL 12/14/2024 12:49 AM EDT [facility] Calcium 9.4 8.6 - 10.3 mg/dL 12/14/2024 12:49 AM EDT [facility] Anion Gap 13 10 - 20 12/14/2024 12:49 AM EDT [facility] Estimated GFR (CKD-EPI) 119 >=60 mL/min/1. 73sqm 12/14/2024 12:49 AM EDT [facility] Comment: 2020 CKD EPI Equation using Creatinine without Race Comment: Estimated glomerular filtration rate (eGFR) is calculated without a race coefficient. Values should be interpreted in the context of the patient's full clinical presentation. Reference: 1. Webb C, Bamindyja M, [place], et al.. A Unifying Approach for GFR Estimation: Recommendations of the NKF-ASN Task Force on Reassessing the Inclusion of Race in Diagnosing Kidney Disease. Dominican Journal of Kidney Diseases 202;79(2):268- 88.e1. 2. N Engl J Med 1 Vol. 385 Issue 19 Pages 9071-2162 Blood BLOOD SPECIMEN / Unknown Venipuncture / Unknown 12/14/2024 12:10 AM EDT 12/14/2024 12:23 AM EDT us Carlo Truong MD 98 GENERAL LAB Final Result [facility] [address] [place] [address] * (ABNORMAL) HEPATIC FUNCTION PANEL (12/14/2024 12:10 AM EDT) Albumin 4.4 3.5 - 5.7 g/dL 12/14/2024 12:49 AM EDT [facility] Bilirubin, Direct 0.06 0.03 - 0.18 mg/dL 12/14/2024 12:49 AM EDT [facility] Bilirubin, Total 0.3 0.3 - 1.0 mg/dL 12/14/2024 12:49 AM EDT [facility] Comment:Note updated referen ce range. Alkaline Phosphatase 56 34 - 104 IU/L 12/14/2024 12:49 AM EDT [facility] ALT (SGPT) 6(L) 7 - 52 IU/L 12/14/2024 12:49 AM EDT [facility] AST (SGOT) 9(L) 13 - 39 IU/L 12/14/2024 12:49 AM EDT [facility] Protein, Total 6.6 6.1 - 7.9 g/dL 12/14/2024 12:49 AM EDT [facility] Comment:Note updated referen ce range. Blood BLOOD SPECIMEN / Unknown Venipuncture / Unknown 12/14/2024 12:10 AM EDT 12/14/2024 12:23 AM EDT Carlo Truong MD 98 GENERAL LAB Final Result Performing Organization Address City/[facility]/ZIP Co de Phone Number [facility] [address] [place], [place] [phone] * MAGNESIUM (12/14/2024 12:10 AM EDT) Magnesium 2.7 1.9 - 2.7 mg/dL 12/14/2024 12:49 AM EDT [facility] Blood BLOOD SPECIMEN / Unknown Venipuncture / Unknown 12/14/2024 12:10 AM EDT 12/14/2024 12:23 AM EDT Carlo Truong MD 98 GENERAL LAB Final Result [facility] [address] [place] [phone] * (ABNORMAL) PHOSPHORUS (12/14/2024 12:10 AM EDT) Phosphorus, Serum 5.4(H) 2.5 - 5.0 mg/dL 12/14/2024 12:49 AM EDT [facility] Blood BLOOD SPECIMEN / Unknown Venipuncture / Unknown 12/14/2024 12:10 AM EDT 12/14/2024 12:23 AM EDT Carlo Truong MD 98 GENERAL LAB Final Result [facility] [address] [place] [address] * CT HEAD W/O CONTRAST (12/13/2024 6:57 PM EDT) [facility] CTDI VOL 67.5 (mGy) RADIOLOGY PHANTOM TYPE IEC Head Dosimetry Phantom RADIOLOGY CT DLP 1263.6 (mGy.cm) RADIOLOGY CT Series Head RADIOLOGY Anatomical Region Laterality Modality CT Head, Head N/A Computed Tomogra phy 12/13/2024 7:02 PM EDT Narrative 12/13/2024 7:04 PM EDT EXAMINATION: CT HEAD W/O CONTRASTPRO 12/13/2024 06:57 PM CLINICAL HISTORY: ams ASSOCIATED DIAGNOSIS: ams ORDERING PROVIDER: LO MIRANDA TECHNCHEPE NOTE: COMPARISON: None TECHNIQUE: Thin axial imaging [...] ASSOCIATED DIAGNOSIS: ams ORDERING PROVIDER: LO MIRANDA TECHNCHEPE NOTE: COMPARISON: None TECHNIQUE: Thin axial imaging of the head was performed withoutintravenous contrast. FINDINGS: No mass or acute hemorrhage. No evidence of acute infarct. The ventricles are within normal limits for age. The skull, paranasal sinuses and tympanomastoid cavities are normal. IMPRESSION: No acute intracranial abnormality. MACRO: None us Lo Miranda DO CT SCAN Final Result * (ABNORMAL) CBC WITH DIFFERENTIAL (12/13/2024 6:33 PM EDT) WBC 8.4 4.5 - 11.5 K/uL 12/13/2024 6:51 PM EDT S PATHOLOGY LABORATORY RBC 5.16 4.00 - 5.20 M/uL 12/13/2024 6:51 PM EDT S PATHOLOGY LABORATORY Hemoglobin 14.8 12.0 - 15.0 g/dL 12/13/2024 6:51 PM EDT S PATHOLOGY LABORATORY Hematocrit 41.9 36.0 - 46.0 % 12/13/2024 6:51 PM EDT S PATHOLOGY LABORATORY MCV 81 80 - 100 fL 12/13/2024 6:51 PM EDT S PATHOLOGY LABORATORY MCH 28.6 26.0 - 34.0 pg 12/13/2024 6:51 PM EDT S PATHOLOGY LABORATORY MCHC 35.3 32.0 - 35.9 g/dL 12/13/2024 6:51 PM EDT S PATHOLOGY LABORATORY Platelet 293 150 - 400 K/uL 12/13/2024 6:51 PM EDT S PATHOLOGY LABORATORY RDW-CV 13.0 11.5 - 14.5 % 12/13/2024 6:51 PM EDT S PATHOLOGY LABORATORY MPV 7.9 7.5 - 11.2 fL 12/13/2024 6:51 PM EDT S PATHOLOGY LABORATORY Neutrophils 47.6 31.0 - 76.0 % 12/13/2024 6:51 PM EDT S PATHOLOGY LABORATORY Neutrophil # 3.99 1.50 - 8.00 K/uL 12/13/2024 6:51 PM EDT S PATHOLOGY LABORATORY Lymphocytes 38.1 24.0 - 44.0 % 12/13/2024 6:51 PM EDT S PATHOLOGY LABORATORY Lymphocytes # 3.20 1.00 - 4.80 K/uL 12/13/2024 6:51 PM EDT S PATHOLOGY LABORATORY Monocytes 11.1(H) 2.0 - 11.0 % 12/13/2024 6:51 PM EDT S PATHOLOGY LABORATORY Monocyte # 0.93 0.20 - 1.00 K/uL 12/13/2024 6:51 PM EDT [facility] Eosinophil 2.3 0.1 - 4.0 % 12/13/2024 6:51 PM EDT [facility] Eosinophil # 0.20 0.00 - 0.70 K/uL 12/13/2024 6:51 PM EDT [facility] Basophils 1.0 <=1.9 % 12/13/2024 6:51 PM EDT [facility] Basophil # 0.08 0.00 - 0.20 K/uL 12/13/2024 6:51 PM EDT [facility] Blood BLOOD SPECIMEN / Unknown Venipuncture / Unknown 12/13/2024 6:33 PM EDT 12/13/2024 6:45 PM EDT us Lo Miranda DO EC LAB ORDER ONLY Final Resul t [facility] [address] [place] [address] * HIV1 HIV2 AGAB SCRN (12/13/2024 6:33 PM EDT) HIV Ag-Ab Screen Non-React zulay Non-React zulay 12/13/2024 8:26 PM EDT [facility] Comment:No laboratory eviden ce for HIV Infection. Negative result does not rule out acute HIV infection. If acute HIV infection is suspected, recommend ordering an HIV-1 RNA quanitification test. Blood BLOOD SPECIMEN / Unknown Venipuncture / Unknown 12/13/2024 6:33 PM EDT 12/13/2024 6:44 PM EDT Narrative [facility] - 12/13/2024 8:26 PM EDT HIV Information: [place] Rev. code 3701.243(E): This information has been [...] HIV/HEP/SYPH TESTING Final Result Performing Organization Address [facility]/ZIP Co de Phone Number [facility] [address] [place] [address] * PARTIAL THROMBOPLASTIN TIME (12/13/2024 6:33 PM EDT) aPTT 30 25 - 37 sec 12/13/2024 7:17 PM EDT [facility] Blood BLOOD SPECIMEN / Unknown Venipuncture / Unknown 12/13/2024 6:33 PM EDT 12/13/2024 6:45 PM EDT Lo Miranda DO 98 GENERAL LAB Final Result Performing Organization Address [facility] de Phone Number [facility] [address] [place] [address] * PROTHROMBIN TIME AND INR (12/13/2024 6:33 PM EDT) Protime 11.5 9.7 - 12.9 sec 12/13/2024 7:17 PM EDT [facility] INR 1.03 0.90 - 1.10 12/13/2024 7:17 PM EDT [facility] Blood BLOOD SPECIMEN / Unknown Venipuncture / Unknown 12/13/2024 6:33 PM EDT 12/13/2024 6:45 PM EDT [facility] [place] [facility] DO GENERAL LAB Final Result Performing Organization Address [facility] Co de Phone Number [facility] [address] [place] [address] * TSH (12/13/2024 6:33 PM EDT) TSH 0.465 0.450 - 5.330 uIU/mL 12/13/2024 7:24 PM EDT [facility] Comment: Referance range for women as applicable: First Trimester: 0. 050 to 3.700 uIU/mL Second Trimester: 0. 310 to 4.350 uIU/mL Third Trimester: 0. 410 to 5.180 uIU/mL Blood BLOOD SPECIMEN / Unknown Venipuncture / Unknown 12/13/2024 6:33 PM EDT 12/13/2024 6:44 PM EDT [facility] [place] [id number] GENERAL LAB Final Result Performing Organization Address [facility] de Phone Number [facility] [address] [place] [phone] * LACTIC ACID (12/13/2024 6:33 PM EDT) Lactate 1.6 0.5 - 1.6 mmol/L 12/13/2024 6:47 PM EDT [facility] Blood BLOOD SPECIMEN / Unknown Venipuncture / Unknown 12/13/2024 6:33 PM EDT 12/13/2024 6:43 PM EDT Narrative [facility] - 12/13/2024 6:47 PM EDT This test was developed, and its performance characteristics determined by the Department of Pathology of [facility]. It has not been cleared or approved by the FDA. This test is used for clinical purposes only. [place] [id number] GENERAL LAB Final Result Performing Organization Address [facility] de Phone Number [facility] [address] [place] [phone] * HIGH SENSITIVITY TROPONIN I (12/13/2024 6:33 PM EDT) HS Troponin I <4 <=15 ng/L 12/13/2024 7:15 PM EDT [facility] Blood BLOOD SPECIMEN / Unknown Venipuncture / Unknown 12/13/2024 6:33 PM EDT 12/13/2024 6:45 PM EDT Narrative [facility] - 12/13/2024 7:15 [...] within the clinical context using provider judgement. Lo Miranda DO 98 GENERAL LAB Final Result [facility] [address] [place] [phone] * MAGNESIUM (12/13/2024 6:33 PM EDT) Magnesium 2.4 1.9 - 2.7 mg/dL 12/13/2024 7:12 PM EDT [facility] Blood BLOOD SPECIMEN / Unknown Venipuncture / Unknown 12/13/2024 6:33 PM EDT 12/13/2024 6:44 PM EDT Lo Miranda DO 98 GENERAL LAB Final Result [facility] [address] [place] [address] * BASIC METABOLIC PANEL (12/13/2024 6:33 PM EDT) Glucose 97 74 - 109 mg/dL 12/13/2024 7:12 PM EDT [facility] Sodium 142 136 - 145 mmol/L 12/13/2024 7:12 PM EDT [facility] Potassium 3.6 3.5 - 5.0 mmol/L 12/13/2024 7:12 PM EDT [facility] Carbon Dioxide 29 21 - 31 mmol/L 12/13/2024 7:12 PM EDT [facility] Chloride 102 98 - 107 mmol/L 12/13/2024 7:12 PM EDT [facility] Blood Urea Nitrogen 10 7 - 25 mg/dL 12/13/2024 7:12 PM EDT [facility] Creatinine 0.75 0.60 - 1.20 mg/dL 12/13/2024 7:12 PM EDT [facility] Calcium 9.7 8.6 - 10.3 mg/dL 12/13/2024 7:12 PM EDT [facility] Anion Gap 15 10 - 20 12/13/2024 7:12 PM EDT [facility] Estimated GFR (CKD-EPI) 110 >=60 mL/min/1. 73sqm 12/13/2024 7:12 PM EDT [facility] Comment: 2020 CKD [...] Inclusion of Race in Diagnosing Kidney Disease. [place] Journal of Kidney Diseases 2022;79(2):268- 88.e1. 2. N Engl J Med 2021 Vol. 385 Issue 19 Pages 1030-5329 Blood BLOOD SPECIMEN / Unknown Venipuncture / Unknown 12/13/2024 6:33 PM EDT 12/13/2024 6:44 PM EDT us Lo Miranda DO 98 GENERAL LAB Final Result [facility] [address] [place] [address] * GLUCOSE, FINGERSTICK-IN OFFICE (12/13/2024 6:25 PM EDT) Glucose, POC 95 74 - 109 mg/dL 12/13/2024 6:42 PM EDT NURSING GLUCOSE PROGRAM Blood BLOOD SPECIMEN / Unknown 12/13/2024 6:25 PM EDT 12/13/2024 6:42 PM EDT us Christina Tony MD EC BACK OFFICE LABS Final Result Performing Organization Address [facility]/ZIP Co de Phone Number NURSING GLUCOSE PROGRAM [address] [place], [place] [phone] * CBC WITH DIFFERENTIAL (12/13/2024 5:10 AM [...] - 34.0 pg 12/13/2024 6:15 AM EDT [facility] MCHC 35.6 32.0 - 35.9 g/dL 12/13/2024 6:15 AM EDT [facility] Platelet 266 150 - 400 K/uL 12/13/2024 6:15 AM EDT [facility] RDW-CV 13.0 11.5 - 14.5 % 12/13/2024 6:15 AM EDT [facility] MPV 8.0 7.5 - 11.2 fL 12/13/2024 6:15 AM EDT [facility] Neutrophils 49.2 31.0 - 76.0 % 12/13/2024 6:15 AM EDT [facility] Neutrophil # 3.46 1.50 - 8.00 K/uL 12/13/2024 6:15 AM EDT [facility] Lymphocytes 38.0 24.0 - 44.0 % 12/13/2024 6:15 AM EDT [facility] Lymphocytes # 2.66 1.00 - 4.80 K/uL 12/13/2024 6:15 AM EDT [facility] Monocytes 9.7 2.0 - 11.0 % 12/13/2024 6:15 AM EDT [facility] Monocyte # 0.68 0.20 - 1.00 K/uL 12/13/2024 6:15 AM EDT [facility] Eosinophil 2.5 0.1 - 4.0 % 12/13/2024 6:15 AM EDT [facility] Eosinophil # 0.17 0.00 - 0.70 K/uL 12/13/2024 6:15 AM EDT [facility] Basophils 0.7 <=1.9 % 12/13/2024 6:15 AM EDT [facility] Basophil # 0.05 0.00 - 0.20 K/uL 12/13/2024 6:15 AM EDT [facility] Blood BLOOD SPECIMEN / Unknown Venipuncture / Unknown 12/13/2024 5:10 AM EDT 12/13/2024 6:10 AM EDT us Carlo Truong MD EC LAB ORDER ONLY Final Result [facility] [address] [place] [address] * PHOSPHORUS (12/13/2024 5:10 AM EDT) Phosphorus, Serum 4.0 2.5 - 5.0 mg/dL 12/13/2024 6:35 AM EDT [facility] Blood BLOOD SPECIMEN / Unknown Venipuncture / Unknown 12/13/2024 5:10 AM EDT 12/13/2024 6:10 AM EDT Carlo Truong MD 98 GENERAL LAB Final Result Performing Organization Address City/[facility]/ZIP Co de Phone Number [facility] [address] [place] [phone] * MAGNESIUM (12/13/2024 5:10 AM EDT) Magnesium 2.2 1.9 - 2.7 mg/dL 12/13/2024 6:35 AM EDT [facility] Blood BLOOD SPECIMEN / Unknown Venipuncture / Unknown 12/13/2024 5:10 AM EDT 12/13/2024 6:10 AM EDT Carlo Truong MD 98 GENERAL LAB Final Result Performing Organization Address [facility] de Phone Number [facility] [address] [place] [phone] * (ABNORMAL) HEPATIC FUNCTION PANEL (12/13/2024 5:10 AM EDT) Albumin 4.4 3.5 - 5.7 g/dL 12/13/2024 6:35 AM EDT [facility] Bilirubin, Direct 0.07 0.03 - 0.18 mg/dL 12/13/2024 6:35 AM EDT [facility] Bilirubin, Total 0.3 0.3 - 1.0 mg/dL 12/13/2024 6:35 AM EDT [facility] Comment:Note updated referen ce range. Alkaline Phosphatase 57 34 - 104 IU/L 12/13/2024 6:35 AM EDT [facility] ALT (SGPT) 6(L) 7 - 52 IU/L 12/13/2024 6:35 AM EDT [facility] AST (SGOT) 9(L) 13 - 39 IU/L 12/13/2024 6:35 AM EDT [facility] Protein, Total 6.5 6.1 - 7.9 g/dL 12/13/2024 6:35 AM EDT [facility] Comment:Note updated referen ce range. Blood BLOOD SPECIMEN / Unknown Venipuncture / Unknown 12/13/2024 5:10 AM EDT 12/13/2024 6:10 AM EDT us Carlo Truong MD 98 GENERAL LAB Final Result [facility] [address] [place] [address] * (ABNORMAL) BASIC METABOLIC PANEL (12/13/2024 5:10 AM EDT) Glucose 119(H) 74 - 109 mg/dL 12/13/2024 6:35 AM EDT [facility] Sodium 142 136 - 145 mmol/L 12/13/2024 6:35 AM EDT [facility] Potassium 3.5 3.5 - 5.0 mmol/L 12/13/2024 6:35 AM EDT [facility] Carbon Dioxide 29 21 - 31 mmol/L 12/13/2024 6:35 AM EDT [facility] Chloride 104 98 - 107 mmol/L 12/13/2024 6:35 AM EDT [facility] Blood Urea Nitrogen 12 7 - 25 mg/dL 12/13/2024 6:35 AM EDT [facility] Creatinine 0.62 0.60 - 1.20 mg/dL 12/13/2024 6:35 AM EDT [facility] Calcium 9.4 8.6 - 10.3 mg/dL 12/13/2024 6:35 AM EDT [facility] Anion Gap 13 10 - 20 12/13/2024 6:35 AM EDT [facility] Estimated GFR (CKD-EPI) 123 >=60 mL/min/1. 73sqm 12/13/2024 6:35 AM EDT [facility] Comment: 2020 CKD [...] Inclusion of Race in Diagnosing Kidney Disease. [place] Journal of Kidney Diseases 202;79(2):268- 88.e1. 2. N Engl J Med 1 Vol. 385 Issue 19 Pages 9040-8304 Blood BLOOD SPECIMEN / Unknown Venipuncture / Unknown 12/13/2024 5:10 AM EDT 12/13/2024 6:10 AM EDT us Carlo Truong MD 98 GENERAL LAB Final Result [facility] [address] [place] [address] * CBC WITH DIFFERENTIAL (12/12/2024 4:35 AM EDT) WBC 6.3 4.5 - 11.5 K/uL 12/12/2024 4:44 AM EDT S PATHOLOGY LABORATORY RBC 4.86 4.00 - 5.20 M/uL 12/12/2024 4:44 AM EDT S PATHOLOGY LABORATORY Hemoglobin 13.7 12.0 - 15.0 g/dL 12/12/2024 4:44 AM EDT S PATHOLOGY LABORATORY Hematocrit 39.3 36.0 - 46.0 % 12/12/2024 4:44 AM EDT S PATHOLOGY LABORATORY MCV 81 80 - 100 fL 12/12/2024 4:44 AM EDT S PATHOLOGY LABORATORY MCH 28.1 26.0 - 34.0 pg 12/12/2024 4:44 AM EDT [facility] MCHC 34.8 32.0 - 35.9 g/dL 12/12/2024 4:44 AM EDT S PATHOLOGY LABORATORY Platelet 268 150 - 400 K/uL 12/12/2024 4:44 AM EDT S PATHOLOGY LABORATORY RDW-CV 12.9 11.5 - 14.5 % 12/12/2024 4:44 AM EDT [facility] MPV 8.0 7.5 - 11.2 fL 12/12/2024 4:44 AM EDT S PATHOLOGY LABORATORY Neutrophils 52.7 31.0 - 76.0 % 12/12/2024 4:44 AM EDT [facility] Neutrophil # 3.33 1.50 - 8.00 K/uL 12/12/2024 4:44 AM EDT [facility] Lymphocytes 32.9 24.0 - 44.0 % 12/12/2024 4:44 AM EDT [facility] Lymphocytes # 2.08 1.00 - 4.80 K/uL 12/12/2024 4:44 AM EDT S PATHOLOGY LABORATORY Monocytes 10.8 2.0 - 11.0 % 12/12/2024 4:44 AM EDT [facility] Monocyte # 0.68 0.20 - 1.00 K/uL 12/12/2024 4:44 AM EDT S PATHOLOGY LABORATORY Eosinophil 2.7 0.1 - 4.0 % 12/12/2024 4:44 AM EDT [facility] Eosinophil # 0.17 0.00 - 0.70 K/uL 12/12/2024 4:44 AM EDT S PATHOLOGY LABORATORY Basophils 0.9 <=1.9 % 12/12/2024 4:44 AM EDT [facility] Basophil # 0.06 0.00 - 0.20 K/uL 12/12/2024 4:44 AM EDT [facility] Blood BLOOD SPECIMEN / Unknown Venipuncture / Unknown 12/12/2024 4:35 AM EDT 12/12/2024 4:39 AM EDT us Carlo Truong MD EC LAB ORDER ONLY Final Result [facility] [address] [place] [phone] * PHOSPHORUS (12/12/2024 4:35 AM EDT) Phosphorus, Serum 3.7 2.5 - 5.0 mg/dL 12/12/2024 5:08 AM EDT [facility] Blood BLOOD SPECIMEN / Unknown Venipuncture / Unknown 12/12/2024 4:35 AM EDT 12/12/2024 4:39 AM EDT Carlo Truong MD 98 GENERAL LAB Final Result [facility] [address] [place] [phone] * MAGNESIUM (12/12/2024 4:35 AM EDT) Magnesium 2.3 1.9 - 2.7 mg/dL 12/12/2024 5:08 AM EDT [facility] Blood BLOOD SPECIMEN / Unknown Venipuncture / Unknown 12/12/2024 4:35 AM EDT 12/12/2024 4:39 AM EDT Carlo Truong MD 98 GENERAL LAB Final Result Performing Organization Address [facility] Co de Phone Number [facility] [address] [place] [phone] * (ABNORMAL) HEPATIC FUNCTION PANEL (12/12/2024 4:35 AM EDT) Albumin 4.5 3.5 - 5.7 g/dL 12/12/2024 5:08 AM EDT [facility] Bilirubin, Direct 0.08 0.03 - 0.18 mg/dL 12/12/2024 5:08 AM EDT [facility] Bilirubin, Total 0.4 0.3 - 1.0 mg/dL 12/12/2024 5:08 AM EDT [facility] Comment:Note updated referen ce range. Alkaline Phosphatase 55 34 - 104 IU/L 12/12/2024 5:08 AM EDT [facility] ALT (SGPT) 7 7 - 52 IU/L 12/12/2024 5:08 AM EDT [facility] AST (SGOT) 10(L) 13 - 39 IU/L 12/12/2024 5:08 AM EDT [facility] Protein, Total 6.5 6.1 - 7.9 g/dL 12/12/2024 5:08 AM EDT [facility] Comment:Note updated referen ce range. Blood BLOOD SPECIMEN / Unknown Venipuncture / Unknown 12/12/2024 4:35 AM EDT 12/12/2024 4:39 AM EDT us Carlo Truong MD 98 GENERAL LAB Final Result [facility] [address] [place] [address] * (ABNORMAL) BASIC METABOLIC PANEL (12/12/2024 4:35 AM EDT) Glucose 122(H) 74 - 109 mg/dL 12/12/2024 5:08 AM EDT [facility] Sodium 139 136 - 145 mmol/L 12/12/2024 5:08 AM EDT [facility] Potassium 3.5 3.5 - 5.0 mmol/L 12/12/2024 5:08 AM EDT [facility] Carbon Dioxide 24 21 - 31 mmol/L 12/12/2024 5:08 AM EDT [facility] Chloride 105 98 - 107 mmol/L 12/12/2024 5:08 AM EDT [facility] Blood Urea Nitrogen 4(L) 7 - 25 mg/dL 12/12/2024 5:08 AM EDT [facility] Creatinine 0.62 0.60 - 1.20 mg/dL 12/12/2024 5:08 AM EDT [facility] Calcium 9.3 8.6 - 10.3 mg/dL 12/12/2024 5:08 AM EDT [facility] Anion Gap 14 10 - 20 12/12/2024 5:08 AM EDT [facility] Estimated GFR (CKD-EPI) 123 >=60 mL/min/1. 73sqm 12/12/2024 5:08 AM EDT [facility] Comment: 2020 CKD [...] Inclusion of Race in Diagnosing Kidney Disease. [place] Journal of Kidney Diseases 2022;79(2):268- 88.e1. 2. N Engl J Med 2021 Vol. 385 Issue 19 Pages 5280-0960 Blood BLOOD SPECIMEN / Unknown Venipuncture / Unknown 12/12/2024 4:35 AM EDT 12/12/2024 4:39 AM EDT Carlo Truong MD 98 GENERAL LAB Final Result [facility] [address] [place] [address] * SURGICAL GI ANATOMIC PATHOLOGY (12/11/2024 1:51 PM EDT) Case Report Surgical Pathology Report Case: [id number] Authorizing Provider: Stella Weinstein DO Collected: 12/11/2024 1351 Ordering Location: [address] Received: 12/12/2024 1425 Pathologist: Brynn Fuller MD Specimen: Colon biopsy 12/16/2024 10:56 AM EDT S PATHOLOGY LABORATORY Final Diagnosis A. Colon, biopsy: Fragments of colonic mucosa with focal stromal edema. No active inflammation, increased lamina propria chronic inflammation, evidence of lymphocytic colitis, granulomas or dysplasia seen. . I certify that I personally conducted the diagnostic evaluation of the above specimen(s) and have rendered the final diagnosis(es). 12/16/2024 10:56 AM EDT [facility] at 1056 EDT [...] cassette. [X]. RR 12/16/2024 10:56 AM EDT S PATHOLOGY LABORATORY Clinical Information 12/16/2024 10:56 AM EDT [facility] Tissue COLONIC BIOPSY SPECIMEN / Unknown 12/11/2024 1:51 PM EDT 12/12/2024 2:25 PM EDT us Stella SANTIZO ANATOMICAL PATHOLOGY ([place] B) Final Result Performing Organization Address [facility]/ZIP Co de Phone Number [facility] [address] [place] [phone] * FECAL FAT, QUALITATIVE (CRIT * (12/11/2024 1:47 AM EDT) Neutral Fat Normal Normal 12/11/2024 2:14 AM EDT S PATHOLOGY LABORATORY Split Fat Normal Normal 12/11/2024 2:14 AM EDT [facility] Stool STOOL SPECIMEN / Unknown 12/11/2024 1:47 AM EDT 12/11/2024 1:56 AM EDT Desire Joel MD [facility] Final Result Performing Organization Address [facility] Co de Phone Number [facility] [address] [place] [phone] * OSMOLALITY, STOOL (12/11/2024 1:47 AM EDT) Osmolality, Stool 410 mOsm/kg 11:03 AM EDT [facility] Comment: In patients with unexplained [...] analytical performance characteristics have been determined by [employer], [place], [place]. It has not been cleared or approved by the FDA. This assay has been validated pursuant to the CLIA regulations and is used for clinical purposes. Stool STOOL SPECIMEN / Unknown 12/11/2024 1:47 AM EDT 12/11/2024 1:56 AM EDT Narrative [facility] - 12/15/2024 11:03 AM EDT Resulting Agency Address Site ID: AMD Name: [employer]Neela Lugo PA Address: [address] [place] [address] Dr Rocha, [place] Director: Sin Bradford M.D.,PhD us Desire Joel MD [facility] Final Result [facility] [address] * PH, STOOL (12/11/2024 1:47 AM EDT) Stool pH 7.0 12/11/2024 2:14 AM EDT [facility] Stool STOOL SPECIMEN / Unknown 12/11/2024 1:47 AM EDT 12/11/2024 1:56 AM EDT us Desire Joel MD [facility] Final Result Performing Organization Address [facility] Co de Phone Number [facility] [address] [place], [place] [phone] * XR ABDOMEN SUPINE + ERECT 2 [...] HEPATIC FUNCTION PANEL (12/10/2024 3:23 AM EDT) Albumin 4.4 3.5 - 5.7 g/dL 12/10/2024 3:59 AM EDT [facility] Bilirubin, Direct 0.10 0.03 - 0.18 mg/dL 12/10/2024 3:59 AM EDT [facility] Bilirubin, Total 0.6 0.3 - 1.0 mg/dL 12/10/2024 3:59 AM EDT [facility] Comment:Note updated referen ce range. Alkaline Phosphatase 53 34 - 104 IU/L 12/10/2024 3:59 AM EDT [facility] ALT (SGPT) 7 7 - 52 IU/L 12/10/2024 3:59 AM EDT [facility] AST (SGOT) 9(L) 13 - 39 IU/L 12/10/2024 3:59 AM EDT [facility] Protein, Total 6.6 6.1 - 7.9 g/dL 12/10/2024 3:59 AM EDT [facility] Comment:Note updated referen ce range. Blood BLOOD SPECIMEN / Unknown Venipuncture / Unknown 12/10/2024 3:23 AM EDT 12/10/2024 3:32 AM EDT us John Ramirez MD 98 GENERAL LAB Final Resul t [facility] [address] [place] [address] * (ABNORMAL) URINALYSIS (12/09/2024 8:15 AM EDT) Color Yellow Colorless 12/09/2024 8:44 AM EDT [facility] Appearance Turbid Clear 12/09/2024 8:44 AM EDT [facility] pH 6.0 5.0 - 8.0 12/09/2024 8:44 AM EDT [facility] Spec Alpha 1.024 <=1.030 12/09/2024 8:44 AM EDT [facility] Protein 10 Negative mg/dL 12/09/2024 8:44 AM EDT [facility] Blood Negative Negative 12/09/2024 8:44 AM EDT [facility] Bilirubin Negative Negative 12/09/2024 8:44 AM EDT [facility] Urobilinogen 2.0(A) Negative mg/dL 12/09/2024 8:44 AM EDT [facility] Ketones 60(A) Negative mg/dL 12/09/2024 8:44 AM EDT [facility] Leuk. Esterase Positive(A) Negative 8:44 AM EDT [facility] Comment:Normal urine specime ns will not produce a positive reaction. Small amounts of leukocyte esterase, causing a positive reaction should be repeated, using a fresh urine specimen, from the same patient. Positive results require further testing for pyuria. Nitrite Negative Negative 12/09/2024 8:44 AM EDT [facility] Glucose Negative Negative mg/dL 12/09/2024 8:44 AM EDT [facility] WBC 11-30(A) 0 - 2 /HPF 12/09/2024 8:44 AM EDT [facility] RBC 6-10(A) 0 - 2 /HPF 12/09/2024 8:44 AM EDT [facility] Bacteria Few /HPF 12/09/2024 8:44 AM EDT [facility] Yeast Few /HPF 12/09/2024 8:44 AM EDT [facility] Mucous Threads Present 12/09/2024 8:44 AM EDT [facility] Squamous Epithelial 6-10 0 - 10 /HPF 12/09/2024 8:44 AM EDT [facility] Urine MID-STREAM URINE SPECIMEN / Unknown 12/09/2024 8:15 AM EDT 12/09/2024 8:18 AM EDT Narrative [facility] - 12/09/2024 8:44 [...] LAB Final Resul t Performing Organization Address City/[facility] Co de Phone Number [facility] [address] [place] [address] * HCG URINE (12/09/2024 8:15 AM EDT) HCG, Urine Negative Negative 12/09/2024 8:33 AM EDT S [facility] Urine URINE SPECIMEN / Unknown 12/09/2024 8:15 AM EDT 12/09/2024 8:18 AM EDT John Ramirez MD 98 GENERAL LAB Final Resul t Performing Organization Address [facility] Co de Phone Number [facility] [address] [place] [address] * CBC WITH DIFFERENTIAL (12/09/2024 8:03 AM [...] - 34.0 pg 12/09/2024 8:31 AM EDT [facility] MCHC 35.4 32.0 - 35.9 g/dL 12/09/2024 8:31 AM EDT [facility] Platelet 259 150 - 400 K/uL 12/09/2024 8:31 AM EDT [facility] RDW-CV 12.8 11.5 - 14.5 % 12/09/2024 8:31 AM EDT [facility] MPV 8.3 7.5 - 11.2 fL 12/09/2024 8:31 AM EDT [facility] Neutrophils 63.1 31.0 - 76.0 % 12/09/2024 8:31 AM EDT [facility] Neutrophil # 4.14 1.50 - 8.00 K/uL 12/09/2024 8:31 AM EDT [facility] Lymphocytes 25.3 24.0 - 44.0 % 12/09/2024 8:31 AM EDT [facility] Lymphocytes # 1.66 1.00 - 4.80 K/uL 12/09/2024 8:31 AM EDT [facility] Monocytes 10.0 2.0 - 11.0 % 12/09/2024 8:31 AM EDT [facility] Monocyte # 0.66 0.20 - 1.00 K/uL 12/09/2024 8:31 AM EDT [facility] Eosinophil 1.2 0.1 - 4.0 % 12/09/2024 8:31 AM EDT [facility] Eosinophil # 0.08 0.00 - 0.70 K/uL 12/09/2024 8:31 AM EDT [facility] Basophils 0.3 <=1.9 % 12/09/2024 8:31 AM EDT [facility] Basophil # 0.02 0.00 - 0.20 K/uL 12/09/2024 8:31 AM EDT [facility] MDW 17 <=20 12/09/2024 8:31 AM EDT [facility] Blood BLOOD SPECIMEN / Unknown Venipuncture / Unknown 12/09/2024 8:03 AM EDT 12/09/2024 8:15 AM EDT us John Ramirez MD EC LAB ORDER ONLY Final Res ult [facility] [address] [place] [address] * (ABNORMAL) LIPASE (12/09/2024 8:03 AM EDT) Lipase 9(L) 11 - 82 IU/L 12/09/2024 8:41 AM EDT [facility] Blood BLOOD SPECIMEN / Unknown Venipuncture / Unknown 12/09/2024 8:03 AM EDT 12/09/2024 8:15 AM EDT John Ramirez MD 98 GENERAL LAB Final Resul t Performing Organization Address [facility] Co de Phone Number [facility] [address] [place] [address] * (ABNORMAL) HEPATIC FUNCTION PANEL (12/09/2024 8:03 AM EDT) Albumin 4.9 3.5 - 5.7 g/dL 12/09/2024 8:41 AM EDT [facility] Bilirubin, Direct 0.16 0.03 - 0.18 mg/dL 12/09/2024 8:41 AM EDT [facility] Bilirubin, Total 1.2(H) 0.3 - 1.0 mg/dL 12/09/2024 8:41 AM EDT [facility] Comment:Note updated referen ce range. Alkaline Phosphatase 55 34 - 104 IU/L 12/09/2024 8:41 AM EDT [facility] ALT (SGPT) 9 7 - 52 IU/L 12/09/2024 8:41 AM EDT [facility] AST (SGOT) 10(L) 13 - 39 IU/L 12/09/2024 8:41 AM EDT [facility] Protein, Total 7.2 6.1 - 7.9 g/dL 12/09/2024 8:41 AM EDT [facility] Comment:Note updated referen ce range. Blood BLOOD SPECIMEN / Unknown Venipuncture / Unknown 12/09/2024 8:03 AM EDT 12/09/2024 8:15 AM EDT us John Ramirez MD 98 GENERAL LAB Final Resul t [facility] [address] [place] [address] * BASIC METABOLIC PANEL (12/09/2024 8:03 AM EDT) Glucose 94 74 - 109 mg/dL 12/09/2024 8:41 AM EDT [facility] Sodium 140 136 - 145 mmol/L 12/09/2024 8:41 AM EDT [facility] Potassium 3.7 3.5 - 5.0 mmol/L 12/09/2024 8:41 AM EDT [facility] Carbon Dioxide 28 21 - 31 mmol/L 12/09/2024 8:41 AM EDT [facility] Chloride 102 98 - 107 mmol/L 12/09/2024 8:41 AM EDT [facility] Blood Urea Nitrogen 17 7 - 25 mg/dL 12/09/2024 8:41 AM EDT [facility] Creatinine 0.67 0.60 - 1.20 mg/dL 12/09/2024 8:41 AM EDT [facility] Calcium 9.6 8.6 - 10.3 mg/dL 12/09/2024 8:41 AM EDT [facility] Anion Gap 14 10 - 20 12/09/2024 8:41 AM EDT [facility] Estimated GFR (CKD-EPI) 121 >=60 mL/min/1. 73sqm 12/09/2024 8:41 AM EDT [facility] Comment: 2020 CKD [...] Inclusion of Race in Diagnosing Kidney Disease. [place] Journal of Kidney Diseases 202;79(2):268- 88.e1. 2. N Engl J Med 2021 Vol. 385 Issue 19 Pages [id number] Blood BLOOD SPECIMEN / Unknown Venipuncture / Unknown 12/09/2024 8:03 AM EDT 12/09/2024 8:15 AM EDT us John Ramirez MD 98 GENERAL LAB Final Resul t [facility] [address] [place] [phone] documented in this encounter Visit Diagnoses Diagnosis [...] Chronic abdominal pain Abdominal pain, unspecified site Dyspepsia Dyspepsia and other specified disorders of function of stomach Chronic diarrhea Diarrhea documented in this encounter Administered Medications Inactive Administered Medications - up to 3 most recent administrations Medication Order MAR Action Action Date Dose Rate Site acetaminophen (TYLENOL) tablet 1,000 mg, Oral, Every [...] Given 12/13/2024 10:22 AM EDT 100 mg cetirizine (ZyrTEC) tablet 10 mg, Oral, DAILY, First dose on Mon12/13/24 at 2000, Until Discontinued Given 12/13/2024 8:53 PM EDT 10 mg famotidine (PEPCID) tablet 20 mg, Oral, DAILY PRN, Starting on Mon12/09/24 at 1203, Until Mon12/14/24 at 2040, Heartburn Given 12/13/2024 10:22 AM EDT 20 mg HYDROmorphone (DILAUDID) tablet 2 mg, Oral, EVERY 4 HOURS PRN, Starting on Mon12/13/24 at 1527, Until Mon12/14/24 at 2040, Moderate Pain (pain score 4,5,6) Given 12/14/2024 9:28 AM EDT 2 mg Given 12/14/2024 3:24 AM EDT 2 mg Given 12/13/2024 9:57 PM EDT 2 mg HYDROmorphone (DILAUDID) tablet 4 mg, Oral, EVERY 6 HOURS PRN, Starting on Mon12/14/24 at 1049, Until Mon12/14/24 at 2040, Severe Pain (pain score 7,8,9,10) Given 12/14/2024 2:11 PM EDT 4 mg ondansetron (ZOFRAN) 4 MG/2ML injection 4 mg, Intravenous, EVERY 6 HOURS PRN, Starting on Mon12/13/24 at 1519, Until Mon12/14/24 at 2040 polyethylene glycol (MIRALAX) 17 g packet 17 g, Oral, AT BEDTIME, First dose on Mon12/13/24 at 2200, Until Discontinued psyllium (METAMUCIL SUGAR FREE) 51.7 % packet 1 Packet, Oral, 2 TIMES DAILY, First dose on Mon12/10/24 at 1500, Until Discontinued Given 12/14/2024 9:28 A M EDT 1 Packet Given 12/13/2024 8:53 PM EDT 1 Packet Given 12/12/2024 9:20 PM EDT 1 Packet venlafaxine (EFFEXOR XR) 24 hour capsule 225 [...] modification) on Mon12/13/24 at 0930, Until Discontinued 1022 (Given - Provider: Phil Varela RN)1718 (Given - Provider: Phil Varela RN)2130 (Hold/Not Given - Provider: Conner De La Cruz RN - Reason: Clinical contraindications - Comment: Too Soon) 0324 (Given - Provider: Conner De La Cruz RN)0928 (Given - Provider: Phil Varela RN)1537 (Given - Provider: Phil Varela RN) buPROPion (WELLBUTRIN) tablet 100 mg, Oral, 2 TIMES DAILY, First dose on Mon12/09/24 at 1300, Until Discontinued 1107 (Given - Provider: Neel Vanegas RN)2120 (Given - Provider: Conner De La Cruz RN) 102 (Given - Provider: Phil Varela RN)205 (Given - Provider: Conner De La Cruz [...] RN)2120 (Given - Provider: Conner De La Cruz RN) 1022 (Given - Provider: Phil Varela RN)1340 (Hold/Not Given - Provider: Phil Varela RN - Reason: Patient refused) HYDROmorphone (DILAUDID) tablet (COMPLETED) 2 mg, Oral, Once, 1 dose, On Mon12/14/24 at 1130 1105 (Given - Provider: Phil Varela, MORE) magnesium sulfate 2 GM/50ML in 50 mL ivpb (COMPLETED) 2,000 mg, Intravenous, ONCE, 1 dose, On Mon12/13/24 at 1999 193 (IV New Bag - Provider: Conner De La Cruz, MORE) metoclopramide (REGLAN) 5 MG/ML injection (COMPLETED) 10 mg, Intravenous, ONCE, 1 dose, On Mon12/13/24 at 1999 1932 (Given - Provider: Conner De La Cruz, RN) polyethylene glycol (MIRALAX) 17 g packet 17 g, Oral, AT BEDTIME, First dose on Mon12/13/24 at 2200, Until Discontinued 2100 (Hold/Not Given - Provider: Conner De La Cruz RN - Reason: Patient refused) psyllium (METAMUCIL SUGAR FREE) 51.7 % packet 1 Packet, Oral, 2 TIMES DAILY, First dose on Mon12/10/24 at 1500, Until Discontinued 1107 (Given - Provider: Neel Vanegas RN)212 (Given - Provider: Conner De La Cruz, MORE) 102 (Hold/Not Given - Provider: Phil Varela RN - Reason: Patient refused)2052 (Given - Provider: Conner De La Cruz, MORE) 0928 (Given - Provider: Phil Varela, MORE) scopolamine (TRANSDERM-SCOP) 1 MG/3DAYS patch (CANCELED) 1 mg, Transdermal, EVERY 72 HOURS, First dose on Mon12/13/24 at 1600, Until Discontinued 171 (Patch Applied - Provider: Phil Varela, MORE) venlafaxine (EFFEXOR XR) 24 hour capsule 225 mg, Oral, EVERY MORNING, First dose on Mon12/09/24 at 1300, Until Discontinued 1107 (Given - Provider: eNel Vanegas RN) 102 (Given - Provider: Phil Varela, MORE) 0928 (Given - Provider: Phil Varela, MORE) PRN Medication Order 12/12/2024 12/13/2024 12/14/2024 acetaminophen (TYLENOL) tablet (CANCELED) 1,000 mg, Oral, EVERY 6 HOURS PRN, Starting on Ela 12/12/24 at 1637, Until Mon12/13/24 at 0837, Mild Pain (pain score 1,2,3), Moderate Pain (pain score 4,5,6) 1641 (Given - Provider: Neel Vanegas RN) 0346 (Given - Provider: Conner De La Cruz RN) famotidine (PEPCID) tablet 20 mg, Oral, DAILY PRN, Starting on 12/09/24 at 1203, Until 12/14/24 at 2041, Heartburn 1022 (Given - Provider: Phil Varela, MORE) HYDROmorphone (DILAUDID) 1 mg/mL injection (CANCELED) 1 mg, Intravenous, EVERY 4 HOURS PRN, Starting on Mon12/13/24 at 0846, Until Mon12/13/24 at 1527, Breakthrough Pain 1147 (Given - Provider: Phil Varela, MORE) HYDROmorphone (DILAUDID) tablet (CANCELED) 4 mg, Oral, EVERY 6 HOURS PRN, Starting on Mon12/12/24 at 0300, Until Mon12/12/24 at 1142, pain severe (7-10), first line 1111 (Given - Provider: Neel Vanegas RN) HYDROmorphone (DILAUDID) tablet (CANCELED) 2 mg, Oral, EVERY 6 HOURS PRN, Starting on Ela 12/12/24 at 1141, Until Mon12/13/24 at 1527, pain severe (7-10), first line 2103 (Given - Provider: Conner De La Cruz RN) 0412 (Given - Provider: Conner De La Cruz, MORE)1031 (Given - Provider: Phil Varela RN) HYDROmorphone [...] La Cruz RN)0928 (Given - Provider: Phil Varela, MORE) HYDROmorphone (DILAUDID) tablet 4 mg, Oral, EVERY 6 HOURS PRN, Starting on 12/14/24 at 1049, Until 12/14/24 at 204, Severe Pain (pain score 7,8,9,10) 1411 (Given - Provider: Phil Vareal RN - Comment: Communicate with MD to administer 4 mg meds at 1400) ketorolac (TORADOL) 15 MG/ML injection (CANCELED) 15 mg, Intravenous, EVERY 6 HOURS PRN, Starting on 12/09/24 at 1203, Until Mon12/13/24 at 0837, Moderate [...] PRN, Starting on Mon12/13/24 at 1519, Until 12/14/24 at 2041 documented in this encounter
--- OUTSIDE RECORDS SUMMARY | 2024-12-11 13:21 | XMS_ITS | Encounter Summary ---
Author Organization [facility] Address [address] [place] [address] Care Team Providers Care Composition Stone Applicator Name Role Phone Unavailable Primary Care Provider Unavailabl e Reason for Visit * Auth/Cert (Routine) Specialty Diagnoses / Procedures Referred By Beba t Referred To Contact Emergency Medicine Diagnoses Other disorders of bilirubin metabolism Other chronic pain Nausea with vomiting, unspecified Chronic abdominal pain Procedures N/A [facility] [address] [place] [phone] Phone: tel: [facility] [address] [place] [phone] Phone: tel: Referral ID Status Reason Start Date Expiration Date Visits Re quested Visits Authorized [id number] 3 3 Encounter Details Date Type Department Care Team (Late st Contact Info) Description 12/11/2024 1:21 PM EDT Anesthesia Event [facility] [address] [place], [place] [id number] Tramaine Sheehan MD [address] [place] [address] Leticia Phelps CAA [address] [place] [address] Anesthesia Record Procedure Summary Procedure Name Responsible Anesthesiologist Anesthesia Start Time Anesthesia Stop Time ESOPHAGOGASTRODUODENOSCOPY A ND COLONOSCOPY Tramaine Sheehan MD 12/11/24 1321 12/11/24 1407 Events Date Time Event Comment 12/11/2024 1321 1321 An Start Data 1321 An Start 1325 Preinduction Verify The anes thesia team has reviewed the patient's vital signs immediately prior to induction. SALENA Brandon 1325 An Induction 1330 Anesthesia Release 1330 Procedure Start 1340 An Data Art Repositioning p atient for colonoscopy 1358 Procedure End 1402 an stop data 1406 PACU Handoff I completed my SBAR handoff to the receiving nurse in the receiving unit. 1407 AN Stop Meds Name Total Lidocaine (Cardiac) 20 mg/mL IV 50 mg Propofol Bolus 10mg/mL 50 mg Propofol 10 mg/mL 323.22 mg NaCl 0.9% 300 mL * Agents Name eN2O O2 Flow Rate (l/min) * Blood No blood administrations on file. Lines, Drains, and Airways Type Details Placement Removal Peripheral IV Line 12/09/24; 0758; 20 gauge; Anterior, Right; Forearm; 12/14/24; 1635 12/09/24 0758 by Gerri Mercer RN 12/14/24 1635 by Phil Varela RN Airway Adjunct 12/11/24; 1325; Non-Rebreather; 12/11/24; 1403 12/11/24 1325 by Leticia Phelps CAA 12/11/24 1403 by Leticia Phelps CAA documented in this encounter Social History Tobacco Use Types Packs/Day Years Used Date Smoking Tobacco: Never Assessed [facility] Utilities Answer Date Recorded In the past 12 months has [facility] [employer], gas, oil, or water IES threatened to shut off services in your [...] on file documented as of this encounter OR Notes * Anesthesia Postprocedure Evaluation - Tramaine Sheehan MD - 12/11/2024 2:19 PM EDT Anesthesia Postoperative Assessment: Vital Signs (most recent): BP 128/94 Pulse 79 Temp 36.3 ??C (97.4 ??F) (Temporal) Resp 16 Ht 5' 7 (1.702 m) Wt 140 lb (63.5 kg) LMP 12/02/2024 (Approximate) SpO2 100% BMI 21.93 kg/m?? Anesthesia Post Evaluation Level of consciousness: awake Post-procedure exam normal. Body temperature, hydration status, PONV and pain evaluated and addressed. Pain management: adequate Hydration status: normal PONV:No nausea/vomiting reported Cardiopulmonary status stable Respiratory status: acceptable Cardiovascular status: acceptable ANESTHESIA NOTABLE EVENTS: No notable events documented. 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 Clarke), CBD stricture s/p cholecystectomy (multiple stents), resection of extrahepatic bile duct, PEG-J, Heme/Other Comment: Hx of Hodgkin's in remission Physical Exam Airway Mallampati: II TM distance: Adequate Micrognathia: Not present Jaw opening: Adequate Neck flexion: Adequate Dental PE (+) intact Pulmonary - pulmonary exam normal Comment: Chest clear to auscultation bilaterally Cardiovascular - cardiovascular exam normal Comment: RRR with S1S2; no murmurs, gallops, or rubs Neuro - neurological exam normal Comment: Awake, alert, oriented, No motor deficits and sensation grossly intact Plan Anesthesia plan: MAC; (mask) Anesthesia risks / alternatives discussed pre-op Questions answered / anesthesia plan accepted Past medical history, surgical history, allergies, and medications reviewed. Pertinent laboratory tests, EKG, imaging, and consults reviewed and I have personally seen and evaluated the patient, repeating self portions of the history and physical examination. Attestation: Anesthesia options were discussed with the patient and/or legal marketing development representative. The risks, benefitsand alternatives were reviewed. Questions regarding anesthesia were answered. Patient and/or legal marketing development representative knows such anesthetics and procedures may be performed by Resident physicians, Certified Anesthesiologist Assistants, or Certified Nurse Anesthetists under the supervision of a physician. The patient /or the patient???s legal marketing development representative agree with the plan for anesthesia. [employer] documented in this encounter Miscellaneous Notes * Anesthesia Transfer Of Care - Leticia Phelps CAA - 12/11/2024 2:06 PM EDT Images from the original note were not included. Patient taken to Phase II. Patient was drowsy, comfortable, and stable on arrival. Anesthesia Transfer of Care Note Past Medical History: Medical History[1] Sleep Apnea/Positive STOP-BANG: No Problem List: Problem List[2] Past Surgical History: Review of patient's past surgical history indicates: BYPASS, GASTRIC EDUARD-EN-Y (2019) For complications status post 2018 cholecystectomy GASTROSTOMY, OPEN; W/CONSTRUCTION, GASTRIC TUBE (2020) Placed in 2020 for malnourishment secondary to Eduard-en-Y. In place until 2021 when it was removed secondary to infection secondary to chemotherapy immunosuppression. Bunyunectomy Allergies: Benadryl [diphenhydramine] Basic Operating Room Facts: Surgeon(s): Stella Weinstein DO Anesthesiologist: Tramaine Sheehan MD CAA: Leticia Phelps CAA ESOPHAGOGASTRODUODENOSCOPY AND COLONOSCOPY Intraoperative Events: No acute event ASA: 3 EBL: 0 mL Urine Not documented Lactated Ringers and NaCl 0.9%: Fluid Totals (Filter: LR and NaCl 0.9% Medications Shown) Medication Calculated Total NaCl 0.9% 300 mL / 1 bag Cell Saver: Not documented Blood Volume Values: Blood Products None MTP Blood: MTP PRBC: Not documented MTP FFP: Not documented MTP PLT: Not documented MTP Cryo: Not documented MTP Whole Blood: Not documented Current Vasoactive Medications: {Vasoactive Medications: None Lines, Drains, Airways Peripheral IV Access: 12/09/24 0758 20 gauge Anterior;Right Forearm (Active) Site Assessment WNL 12/11/24 1300 Infusion Status Port #1 Positive blood return;Patent;Capped 12/11/24 1252 Airway Insertion Details * No LDAs found * All non-working IVs have been removed: N/A Laboratory Data: CBC (last 3 years, up to 8 values) 12/09/2024 8:03 AM WBC 6.6 RBC 4.87 Hgb 13.8 Hct 38.9 MCV 80 RDW 12.8 Plt 259 BMP (last 3 years, up to 8 values) 12/09/2024 8:03 AM Na 140 K 3.7 Cl 102 CO2 28 Gap 14 Glu 94 BUN 17 Cr 0.67 Ca 9.6 eGFR 121 Basic Metabolic Panel 12/09/2024 8:03 AM Na 140 K 3.7 Cl 102 CO2 28 Gap 14 Glu 94 BUN 17 Cr 0.67 Ca 9.6 No results found for: INR No result for BNP LFT's (last 3 years, up to 8 values) 12/10/2024 12/09/2024 3:23 AM 8:03 AM T Prot 6.6 7.2 Albumin 4.4 4.9 D Bili 0.10 0.16 T Bili 0.6 1.2 Alk Phos 53 55 ALT 7 9 AST 9 10 Arterial Blood Gases None Hand off Completed: Yes 1. The patient was identified. 2. Pertinent medical history was relayed. 3. A brief discussion was had about any pertinent surgical/ procedural issues. 4. Intraoperative/ anesthetic management issue and concerns were discussed. 5. Plans for the early post-operative period relayed. 6. An opportunity for questions and acknowledgment of understanding of the report was received. SALENA Brandon [1] Past Medical History: Diagnosis Date Bile leak 2018 Cholecystitis. S/p cholecystectomy complications; biliary tree destruction. Stents placed, cholecystostomy for 6 weeks. Eduard-en-y with [place] in 2018. Then G tube 2020 for malnourrishment. Removed during chemo in 2021 got infected. Hodgkin's disease in remission 2021 Treatment 07/2021 - 12/2021; remisision in 03/2022. ABVD then AVD. Right. clavicular nodectomy. Migraine without aura and without status migrainosus, not intractable Emmgality 6-7 years ago [2] Patient Active Problem List Diagnosis Code Hyperbilirubinemia E80.6 Nausea and vomiting, unspecified vomiting type R11.2 Chronic abdominal pain R10.9, G89.29 Epigastric pain R10.13 documented in this encounter Plan of Treatment Upcoming Encounters Date Type Department Care Team (Late st Contact Info) Description 12/19/2024 11:00 AM EDT Telemedicine [facility] Internal Medicine [address] [place] [address] Marjorie Bustillos MD [address] [place] [address] [place] [address] 02/06/2025 3:00 PM EST Office Visit [facility] Gastroenterology [address] [place] [address] Nathanael Trimble MD [address] [place] [address] documented as of this encounter Visit Diagnoses Not on filedocumented in this encounter Administered Medications Inactive Administered Medications - up to 3 most recent administrations Medication Order MAR Action Action Date Dose Rate Site Lidocaine (Cardiac) PF (XYLOCAINE) 100 MG/5ML injection Intravenous, PRN, Starting on Mon12/11/24 at 1325, Until Mon12/11/24 at 1407, Intra-op Given 12/11/2024 1:25 PM EDT 50 mg propofol (DIPRIVAN) 10 mg/mL iv bolus from infusion bottle IV Bolus, PRN, Starting on Mon12/11/24 at 1325, Until Mon12/11/24 at 1407, Intra-op Given 12/11/2024 1:25 PM EDT 50 mg propofol (DIPRIVAN) 1000 MG/100ML infusion Intravenous, PRN CONTINUOUS, Starting on Mon12/11/24 at 1325, Until Mon12/11/24 at 1407 IV Rate Change 12/11/2024 1:46 PM EDT 130 mcg/kg/min 49.53 mL/hr IV Rate Change 12/11/2024 1:39 PM EDT 160 mcg/kg/min 60.96 mL/hr IV New Bag 12/11/2024 1:25 PM EDT 200 mcg/kg/min 76.2 mL/h r sodium chloride 0.9 % iv infusion Intravenous, PRN CONTINUOUS, Starting on Mon12/11/24 at 1321, Until Mon12/11/24 at 1407 IV New Bag 12/11/2024 1:21 PM EDT documented in this encounter
--- OUTSIDE RECORDS SUMMARY | 2024-12-13 18:49 | XMS_ITS | Encounter Summary ---
Author Organization [facility] Address [address] [place], [place] [id number] Care Team Providers Care Digital Marketing Apprentice Name Role Phone Unavailable Primary Care Provider Unavailabl e Reason for Visit * Auth/Cert (Routine) Specialty Diagnoses / Procedures Referred By Beba t Referred To Contact Emergency Medicine Diagnoses Other disorders of bilirubin metabolism Other chronic pain Nausea with vomiting, unspecified Chronic abdominal pain Procedures N/A [facility] [address] [place] [phone] Phone: tel: [facility] [address] [place] [phone] Phone: tel: Referral ID Status Reason Start Date Expiration Date Visits Re quested Visits Authorized [id number] 3 3 Encounter Details Date Type Department Care Team (Late st Contact Info) Description 12/13/2024 6:49 PM EDT - 12/13/2024 11:59 PM EDT Hospital Encounter [facility] Radiology CT [address] [place], [place] [phone] Tigre Guevara MD [address] [place], [place] [phone] Arrived Discharge Disposition: HOV Discharge Social History Tobacco Use Types Packs/Day Years Used Date Smoking Tobacco: Never Assessed [facility] Utilities Answer Date Recorded In the [...] on file documented as of this encounter Medications at Time of Discharge [...] capsule Take 72 mcg by mouth daily. HYDROmorphone (DILAUDID) 2 MG tabletIndications:Ch ronic abdominal pain Take 1 Tablet by mouth every 4 hours as needed for up to 3 days. 15 Tablet 12/14/2024 5 OxyCODONE 10 MG TABS immediate release tabletIndications:Ep igastric pain Take 1 Tablet by mouth every 8 hours as needed for Pain for up to 5 days. 15 Tablet 12/13/2024 5 ondansetron (ZOFRAN-ODT) 4 MG disintegrating tablet Take 1 Tablet by mouth every 8 hours as needed for Nausea. 12 Tablet 12/09/2024 5 documented as of this encounter Plan of Treatment Upcoming Encounters Date Type Department Care Team (Late st Contact Info) Description 12/19/2024 11:00 AM EDT Telemedicine [facility] Internal Medicine [address] [place] [address] Marjorie Bustillos MD [address] [place] [address] 02/06/2025 3:00 PM EST Office Visit [facility] Gastroenterology [address] [place] [address] Nathanael Trimble MD [address] [place] [address] documented as of this encounter Procedures Procedure Name Priority Date/Time Associated Diagnosis Comments CT HEAD W/O CONTRAST STAT 12/13/2024 6:57 PM EDT documented in this encounter Results * CT HEAD W/O CONTRAST (12/13/2024 6:57 [...] ams ASSOCIATED DIAGNOSIS: ams ORDERING PROVIDER: LO SIMMON[employer] NOTE: COMPARISON: None TECHNIQUE: Thin axial [...] ams ASSOCIATED DIAGNOSIS: ams ORDERING PROVIDER: LO [employer] NOTE: COMPARISON: None TECHNIQUE: Thin axial imaging of the head was performed withoutintravenous contrast. FINDINGS: No mass or acute hemorrhage. No evidence of acute infarct. The ventricles are within normal limits for age. The skull, paranasal sinuses and tympanomastoid cavities are normal. IMPRESSION: No acute intracranial abnormality. MACRO: None Lo SANTIZO CT SCAN Final Result documented in this encounter Visit Diagnoses Not on filedocumented in this encounter
--- OUTSIDE RECORDS SUMMARY | 2024-12-16 11:54 | XMS_ITS | Encounter Summary ---
Author Organization [facility] Address [address] [place] [address] Care Team Providers Care Mechanical Integrity Specialist Name Role Phone Kami Olvera MD Primary Care Provider [phone] Jazzy Dunn RN Unavailable [phone] David House MD Unavailable [phone] Odette Lopez PA-C Unavailable [phone] Rubens Singh MD Unavailable [phone] Source Comments In the event this information is protected by the Federal Confidentiality of Alcohol and Drug AbusePatient Records regulations: The Federal rules restrict any use of the information to criminally investigate or prosecute any alcohol or drug abuse patient.[facility] Encounter Details Date Type Department Care Team (Late st Contact Info) Description 08/24/2021 Get Medical Advice General Surgery [address] [place] [address] Barerra Whittington PA-C [address] [place] [address] Feeding Tube Leakage Social History [...] on file 08/05/2021 Data from: [email or web address].[email or web address].medicine.[email or web address].edu/. Last address used for calculation [address] [...] documented as of this encounter Care Teams Mechanical Integrity Specialist Relationship Specialty Start Date End Date Kami Olvera MD [address] [place] [address] PCP - General Family Medicine 02/01/17 Jazzy Dunn RN [address] [facility] [place] [address] Specialty Commodity Industry Analyst Hematology/Oncology 07/27/21 04/30/23 David House MD [address] [place] [address] Physician Hematology/Oncology 07/27/21 Odette Lopez PA-C [address] [place] [address] Physician Lead Printer Hematology/Oncology 07/27/21 Rubens Singh MD [address] [place] [address] Physician Hematology/Oncology 10/08/21 [facility] Palliative Medicine Provider 08/30/21 documented as of this encounter
--- OUTSIDE RECORDS SUMMARY | 2024-12-16 11:54 | XMS_ITS | Encounter Summary ---
Author Organization [facility] Address [address] [place] [address] Care Team Providers Care Transformer Mechanic Name Role Phone Kami Olvera MD Primary Care Provider [phone] David House MD Unavailable [phone] Rubens Singh MD Unavailable [phone] Source Comments In the event this information is protected by the Federal Confidentiality of Alcohol and Drug AbusePatient Records regulations: The Federal rules restrict any use of the information to criminally investigate or prosecute any alcohol or drug abuse patient.[facility] Encounter Details Date Type Department Care Team (Late st Contact Info) Description 01/07/2024 Get Medical Advice Gastroenterology [address] [place], [place] [phone] Theresa Rodríguez APRN.SCRAP PREPARER [address] [place] [address] Colonoscopy Social History Tobacco Use Types Packs/Day [...] risk 6 10/14/2022 Data from: https://www.neigh borhoodatlas.medicine.[facility].edu/. Last address used for calculation [address] [...] on filedocumented in this encounter Care Teams Transformer Mechanic Relationship Specialty Start Date End Date Kami Olvera MD [address] [place] [phone] PCP - General Family Medicine 02/01/17 David House MD [address] [place] [phone] Physician Hematology/Oncology 07/27/21 Rubens Singh MD [address] [place] [address] Physician Hematology/Oncology 10/08/21 [facility] Palliative Medicine Provider 08/30/21 documented as of this encounter
--- OUTSIDE RECORDS SUMMARY | 2024-12-16 11:54 | XMS_ITS | Clinical Summary ---
Author Organization [facility] Address [address] [place] [address] Care Team Providers Care Business Process Manager Name Role Phone Devonte Kemp DO Primary Care Provider [phone] Allergies Active Allergy Reactions Criticality Noted Date [...] Advance Directives For more information, please contact: [phone] * Full Code - Unverified (Latest Code Status on File) Date Activated Date Inactivated Comments 10/31/2015 5:36 PM 11/12/2015 7:47 PM Care Teams Business Process Manager Relationship Specialty Start Date End Date Devonte Kemp DO PCP - General Endocrinology/Metabolism 10/19/15
--- OUTSIDE RECORDS SUMMARY | 2024-12-16 11:54 | XMS_ITS | Encounter Summary ---
Author Organization [facility] Address [address] [place] [address] Care Team Providers Care Manager Video Games Name Role Phone Kami Olvera MD Primary Care Provider [phone] David House MD Unavailable [phone] Rubens Singh MD Unavailable [phone] Source Comments In the event this information is protected by the Federal Confidentiality of Alcohol and Drug AbusePatient Records regulations: The Federal rules restrict any use of the information to criminally investigate or prosecute any alcohol or drug abuse patient.[facility] Encounter Details Date Type Department Care Team (Late st Contact Info) Description 09/10/2024 [place] [address] Provider, [facility] Sign up to manage your [...] filedocumented in this encounter Care Teams Manager Video Games Relationship Specialty Start Date End Date Kami Olvera MD [address] [place] [phone] PCP - General Family Medicine 02/01/17 David House MD [address] [place] [phone] Physician Hematology/Oncology 07/27/21 Rubens Singh MD [address] [place] [address] Physician Hematology/Oncology 10/08/21 [facility] Palliative Medicine Provider 08/30/21 documented as of this encounter
--- OUTSIDE RECORDS SUMMARY | 2024-12-16 11:56 | XMS_ITS | Clinical Summary ---
Author Organization [facility] Address [address] [place] [address] Care Team Providers Care Legal Biller Name Role Phone Unavailable Primary Care Provider Unavailabl e Source Comments The following information is NOT included in Care Everywhere downloads:Psychiatric notes, ECG results, Cardiac Rehab notes, Pulmonary Function notes, data from SmartForms (includes but not limited toPregnancy data,audiograms, eye exams, pre-surgical evaluation notes, well-child exam data).[facility] Allergies Active Allergy Reactions Criticality Noted Date Comments Diphenhydramine 12/10/2024 Medications HYDROmorphone (DILAUDID) 2 MG tablet Take 2 mg by mouth as needed for Pain. Active Venlafaxine HCl (EFFEXOR XR ORAL) Take 225 mg by mouth every morning. Active buPROPion (WELLBUTRIN) 100 MG tablet Take 100 mg by mouth 2 times daily. Active zolpidem (AMBIEN) 10 MG tablet Take 10 mg by mouth at bedtime as needed for Sleep. Active linaclotide (Linzess) 72 MCG CAPS capsule Take 72 mcg by mouth daily. Active HYDROmorphone (DILAUDID) 2 MG tabletIndications: Chronic abdominal pain Take 1 Tablet by mouth every 4 hours as needed for up to 3 days. 15 Tablet 12/15/19 25 025 Active ondansetron (ZOFRAN-ODT) 4 MG disintegrating tablet Take 1 Tablet by mouth every 8 hours as needed for Nausea. 12 Tablet 12/15/19 25 Active ondansetron (ZOFRAN-ODT) 4 MG disintegrating tablet Take 1 Tablet by mouth every 8 hours as needed for Nausea. 12 Tablet 12/10/19 25 025 Discontinued cefUROXime (CEFTIN) 250 MG tablet Take 1 Tablet by mouth 2 times daily for 7 days. 14 Tablet 12/10/19 25 025 Discontinued OxyCODONE 10 MG TABS immediate release tabletIndications: Epigastric pain Take 1 Tablet by mouth every 8 hours as needed for Pain for up to 5 days. 15 Tablet 12/14/19 25 025 Discontinued HYDROmorphone (DILAUDID) 2 MG tabletIndications: Chronic abdominal pain Take 1 Tablet by mouth every 4 hours as needed for up to 3 days. 15 Tablet 12/15/19 25 025 Discontinued Active Problems Problem Noted Date Diagnosed Date 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 status migrainosus, not intractable 12/14/2024 Epigastric pain 12/11/2024 Hyperbilirubinemia 12/09/2024 Nausea and vomiting, unspecified vomiting type 0 12/09/2024 Chronic abdominal pain 12/09/2024 Encounters Date Type Department Care Team Description 5 6:49 PM EDT - 5 11:59 PM EDT Hospital Encounter [facility] Radiology CT [address] [place] [id number] Tigre Guevara MD Arrived Discharge Disposition: HOV Discharge 5 Travel 5 1:21 PM EDT Anesthesia Event [facility] [address] [place], [place] [id number] Tramaine Sheehan MD Midgley, Maureen, CAA 5 1:00 PM EDT - 5 2:00 PM EDT Surgery [facility] [address] [place] [address] Stella Greco i, DO ESOPHAGOGASTRODUODENOSCOPY AND COLONOSCOPY 5 7:36 AM EDT - 5 6:41 PM EDT Hospital Encounter [facility] [address] [place] [address] Escajeda, John, MD FrankiRadames gasca MD Skinner, Mitchell, MD Collins, Thomas E., MD Schmidt, Kristen, MD Miller, Brian L., MD Danawala, Mehul, MD Kim, Lisa, MD Dx: Chronic diarrhea (Primary Dx) Discharge Disposition: Discharge to Home 5 Travel 5 Telephone [facility] Medicine [address] [place] [address] Maci Roberson MD from Last 3 Months Immunizations Immunization Administration Dates Next Due DTP-Hib (CVX=22) 1994,1994 DTaP, unspecified formulation (DOB=8[birth year]) 06/23/19 00,10/09/1995 HPV, quadrivalent (Gardasil 4) (CVX=62) 03/10/20,12/06/2010,10/15/2008 Hep B (peds/adol, 3-dose) (CVX=08) 1994,,1994 Hib, unspecified formulation (CVX=17) 10/09/1995 ,1994 MMR, Ojqvjdj-Qjlvl-Rbfxvpi (CVX=03) 06/23/1999,1 Meningococcal conjugate (MCV 4,Men-ACWY), Menactra (MCV4P) (WKT=617) 12/06/2010,10/15/2008 Polio, unspecified formulation (CVX=89) 06/23/19 00 Tdap (QLV=419) 10/15/2008 Varicella (Chickenpox) (CVX=21) 12/06/2010,10/01 Family History Medical History Relation Name Comments Cerebral Palsy Brother 1 Brain Cancer Maternal Grandfather Atrial Fibrillation Mother Stroke Mother Relation Name Status Comments Brother 1 Alive Brother 2 Alive Father Alive Maternal Grandfather Mother Alive Sister Alive Social History Tobacco Use Types Packs/Day Years Used Date Smoking Tobacco: Never Assessed [facility] Utilities Answer Date Recorded In the past 12 months has [employer], gas, oil, or water company threatened [...] Mass Index 21.93 12/11/2024 11:43 AM EDT Plan of Treatment Upcoming Encounters Date Type Department Care Team (Late st Contact Info) Description 12/19/2024 11:00 AM EDT Telemedicine [facility] Internal Medicine [address] [place] [address] Marjorie Bustillos MD [address] [place] [phone] 02/06/2025 3:00 PM EST Office Visit [facility] Gastroenterology [address] [place] [phone] Nathanael Trimble MD [address] [place] [phone] Health Maintenance Due Date Last Done Comments Hepatitis C Antibody 01/02/2012 Hepatitis A (HAV) Vaccine (optional start 19+ years) 2013 Pap Smear 2015 Tetanus (Td or Tdap) Booster 10/15/2018 10/15/2008 COVID-19 Vaccine ( season) 2024 Influenza Vaccine (#1) 2024 Shingles (RZV) Vaccine (1 of 2) 01/02/2044 Hepatitis B (HBV) Vaccine Completed 1994, 1994, 1994 Tdap Booster Completed 10/15/2008 HPV Vaccine Completed 03/10/2011, 12/06/2010, 10/15/2008 HIV Test Completed 12/13/2024 Mammography Discontinued Pneumococcal Vaccine(s) Aged Out No l onger eligible based on patient's age to complete this topic Procedures Procedure Name Priority Date/Time Associated Diagnosis Comments CBC WITH DIFFERENTIAL STAT 12/14/2024 12:10 AM EDT BASIC METABOLIC PANEL STAT 12/14/2024 12:10 AM EDT HC HEPATIC FUNCTION PANEL STAT 12/14/2024 12:10 AM EDT MAGNESIUM STAT 12/14/2024 12:10 AM EDT PHOSPHORUS STAT 12/14/2024 12:10 AM EDT COMPLETE BLOOD COUNT W/DIFF STAT 12/14/2024 12:[address] HEAD W/O CONTRAST STAT 12/13/2024 6:57 PM EDT CBC WITH DIFFERENTIAL STAT 12/13/2024 6:33 PM EDT HIV1 HIV2 AGAB SCRN Routine 12/13/2024 6 :33 PM EDT Contact with and (suspected) exposure to other viral communicable diseases PARTIAL THROMBOPLASTIN TIME STAT 12/13/2024 6:33 PM EDT PROTHROMBIN TIME AND INR STAT 12/13/2024 6:33 PM EDT TSH STAT 12/13/2024 6:33 PM EDT LACTIC ACID STAT 12/13/2024 6:33 PM EDT HIGH SENSITIVITY TROPONIN I STAT 12/13/2024 6:33 PM EDT MAGNESIUM STAT 12/13/2024 6:33 PM EDT BASIC METABOLIC PANEL STAT 12/13/2024 6:33 PM EDT COMPLETE BLOOD COUNT W/DIFF STAT 12/13/2024 6:33 PM EDT GLUCOSE, FINGERSTICK-IN OFFICE Routine 12/13/2024 6:25 PM EDT CBC WITH DIFFERENTIAL STAT 12/13/2024 5:10 AM EDT COMPLETE BLOOD COUNT W/DIFF STAT 12/13/2024 5:10 AM EDT PHOSPHORUS STAT 12/13/2024 5:10 AM EDT MAGNESIUM STAT 12/13/2024 5:10 AM EDT HC HEPATIC FUNCTION PANEL STAT 12/13/2024 5:10 AM EDT BASIC METABOLIC PANEL STAT 12/13/2024 5:10 AM EDT CBC WITH DIFFERENTIAL STAT 12/12/2024 4:35 AM EDT COMPLETE BLOOD COUNT W/DIFF STAT 12/12/2024 4:35 AM EDT PHOSPHORUS STAT 12/12/2024 4:35 AM EDT MAGNESIUM STAT 12/12/2024 4:35 AM EDT HC HEPATIC FUNCTION PANEL STAT 12/12/2024 4:35 AM EDT BASIC METABOLIC PANEL STAT 12/12/2024 4:35 AM EDT COLONOSCOPY, FLEXIBLE, [...] STOOL STAT 12/11/2024 1: 47 AM EDT OSMOLALITY, STOOL STAT 12/11/2024 1:4 7 AM EDT PH, STOOL STAT 12/11/2024 1:47 AM EDT XR ABDOMEN SUPINE + ERECT 2 VIEWS STAT 12/10/2024 12:39 PM EDT HC HEPATIC FUNCTION PANEL STAT 12/10/2024 3:23 AM EDT URINALYSIS STAT 12/09/2024 8:15 AM EDT URINALYSIS STAT 12/09/2024 8:15 AM EDT HCG URINE STAT 12/09/2024 8:15 AM EDT CBC WITH DIFFERENTIAL STAT 12/09/2024 8:03 AM EDT LIPASE STAT 12/09/2024 8:03 AM EDT HC HEPATIC FUNCTION PANEL STAT 12/09/2024 8:03 AM EDT BASIC METABOLIC PANEL STAT 12/09/2024 8:03 AM EDT COMPLETE BLOOD COUNT W/DIFF STAT 12/09/2024 8:03 AM EDT from Last 3 Months Results * CBC WITH DIFFERENTIAL (12/14/2024 12:10 AM EDT) WBC 7.9 4.5 - 11.5 K/uL 12/14/2024 12:29 AM EDT [facility] RBC 4.83 4.00 - 5.20 M/uL 12/14/2024 12:29 AM EDT [facility] Hemoglobin 13.6 12.0 - 15.0 g/dL 12/14/2024 12:29 AM EDT [facility] Hematocrit 39.4 36.0 - 46.0 % 12/14/2024 12:29 AM EDT [facility] MCV 82 80 - 100 fL 12/14/2024 12:29 AM EDT [facility] MCH 28.2 26.0 - 34.0 pg 12/14/2024 12:29 AM EDT [facility] MCHC 34.5 32.0 - 35.9 g/dL 12/14/2024 12:29 AM EDT [facility] Platelet 269 150 - 400 K/uL 12/14/2024 12:29 AM EDT [facility] RDW-CV 13.0 11.5 - 14.5 % 12/14/2024 12:29 AM EDT [facility] MPV 8.2 7.5 - 11.2 fL 12/14/2024 12:29 AM EDT [facility] Neutrophils 52.3 31.0 - 76.0 % 12/14/2024 12:29 AM EDT [facility] Neutrophil # 4.13 1.50 - 8.00 K/uL 12/14/2024 12:29 AM EDT [facility] Lymphocytes 34.1 24.0 - 44.0 % 12/14/2024 12:29 AM EDT [facility] Lymphocytes # 2.69 1.00 - 4.80 K/uL 12/14/2024 12:29 AM EDT [facility] Monocytes 10.8 2.0 - 11.0 % 12/14/2024 12:29 AM EDT [facility] Monocyte # 0.85 0.20 - 1.00 K/uL 12/14/2024 12:29 AM EDT [facility] Eosinophil 2.3 0.1 - 4.0 % 12/14/2024 12:29 AM EDT [facility] Eosinophil # 0.18 0.00 - 0.70 K/uL 12/14/2024 12:29 AM EDT [facility] Basophils 0.5 <=1.9 % 12/14/2024 12:29 AM EDT [facility] Basophil # 0.04 0.00 - 0.20 K/uL 12/14/2024 12:29 AM EDT [facility] Blood BLOOD SPECIMEN / Unknown Venipuncture / Unknown 12/14/2024 12:10 AM EDT 12/14/2024 12:23 AM EDT Carlo Truong MD EC LAB ORDER ONLY Final Result Performing Organization Address [facility] de Phone Number [facility] [address] [place] [phone] * (ABNORMAL) HEPATIC FUNCTION PANEL (12/14/2024 12:10 AM EDT) Albumin 4.4 3.5 - 5.7 g/dL 12/14/2024 12:49 AM EDT [facility] Bilirubin, Direct 0.06 0.03 - 0.18 mg/dL 12/14/2024 12:49 AM EDT [facility] Bilirubin, Total 0.3 0.3 - 1.0 mg/dL 12/14/2024 12:49 AM EDT [facility] Comment:Note updated referen ce range. Alkaline Phosphatase 56 34 - 104 IU/L 12/14/2024 12:49 AM EDT [facility] ALT (SGPT) 6(L) 7 - 52 IU/L 12/14/2024 12:49 AM EDT [facility] AST (SGOT) 9(L) 13 - 39 IU/L 12/14/2024 12:49 AM EDT [facility] Protein, Total 6.6 6.1 - 7.9 g/dL 12/14/2024 12:49 AM EDT [facility] Comment:Note updated referen ce range. Blood BLOOD SPECIMEN / Unknown Venipuncture / Unknown 12/14/2024 12:10 AM EDT 12/14/2024 12:23 AM EDT Carlo Truong MD 98 GENERAL LAB Final Result Performing Organization Address [facility] Co de Phone Number [facility] [address] [place] [phone] * BASIC METABOLIC PANEL (12/14/2024 12:10 AM EDT) Glucose 99 74 - 109 mg/dL 12/14/2024 12:49 AM EDT [facility] Sodium 141 136 - 145 mmol/L 12/14/2024 12:49 AM EDT S PATHOLOGY LABORATORY Potassium 3.8 3.5 - 5.0 mmol/L 12/14/2024 12:49 AM EDT [facility] Carbon Dioxide 29 21 - 31 mmol/L 12/14/2024 12:49 AM EDT [facility] Chloride 103 98 - 107 mmol/L 12/14/2024 12:49 AM EDT [facility] Blood Urea Nitrogen 14 7 - 25 mg/dL 12/14/2024 12:49 AM EDT [facility] Creatinine 0.70 0.60 - 1.20 mg/dL 12/14/2024 12:49 AM EDT [facility] Calcium 9.4 8.6 - 10.3 mg/dL 12/14/2024 12:49 AM EDT [facility] Anion Gap 13 10 - 20 12/14/2024 12:49 AM EDT [facility] Estimated GFR (CKD-EPI) 119 >=60 mL/min/1. 73sqm 12/14/2024 12:49 AM EDT [facility] Comment: 2020 CKD [...] Inclusion of Race in Diagnosing Kidney Disease. [place] Journal of Kidney Diseases 2021;79(2):268- 88.e1. 2. N Engl J Med 2021 Vol. 385 Issue 19 Pages [id number] Blood BLOOD SPECIMEN / Unknown Venipuncture / Unknown 12/14/2024 12:10 AM EDT 12/14/2024 12:23 AM EDT us Carlo Truong MD 98 GENERAL LAB Final Result [facility] [address] [place] [address] * (ABNORMAL) PHOSPHORUS (12/14/2024 12:10 AM EDT) [facility] Phosphorus, Serum 5.4(H) 2.5 - 5.0 mg/dL 12/14/2024 12:49 AM EDT [facility] Blood BLOOD SPECIMEN / Unknown Venipuncture / Unknown 12/14/2024 12:10 AM EDT 12/14/2024 12:23 AM EDT Carlo Truong MD 98 GENERAL LAB Final Result Performing Organization Address City/[facility]/ZIP Co de Phone Number [facility] [address] [place] [phone] * MAGNESIUM (12/14/2024 12:10 AM EDT) [facility] Magnesium 2.7 1.9 - 2.7 mg/dL 12/14/2024 12:49 AM EDT [facility] Blood BLOOD SPECIMEN / Unknown Venipuncture / Unknown 12/14/2024 12:10 AM EDT 12/14/2024 12:23 AM EDT Carlo Truong MD 98 GENERAL LAB Final Result Performing Organization Address [facility] de Phone Number [facility] [address] [place] [phone] * CT HEAD W/O CONTRAST (12/13/2024 6:57 PM EDT) [facility] CTDI VOL 67.5 (mGy) RADIOLOGY PHANTOM TYPE IEC Head Dosimetry Phantom RADIOLOGY CT DLP 1263.6 (mGy.cm) RADIOLOGY CT Series Head RADIOLOGY Anatomical Region Laterality Modality CT Head, Head N/A Computed Tomogra phy 12/13/2024 7:02 PM EDT Narrative 12/13/2024 7:04 PM EDT EXAMINATION: CT HEAD W/O CONTRASTPRO 12/13/2024 06:57 PM CLINICAL HISTORY: ams ASSOCIATED DIAGNOSIS: ams ORDERING PROVIDER: CODY MIRANDA TECHNOLOGISTS NOTE: COMPARISON: None TECHNIQUE: Thin [...] HISTORY: ams ASSOCIATED DIAGNOSIS: ams ORDERING PROVIDER: CODY MIRANDA TECHNOLOGISTS NOTE: COMPARISON: None TECHNIQUE: Thin axial imaging of the head was performed withoutintravenous contrast. FINDINGS: No mass or acute hemorrhage. No evidence of acute infarct. The ventricles are within normal limits for age. The skull, paranasal sinuses and tympanomastoid cavities are normal. IMPRESSION: No acute intracranial abnormality. MACRO: None us Cody Miranda DO EC CT SCAN Final Result [...] - 400 K/uL 12/13/2024 6:51 PM EDT [facility] RDW-CV 13.0 11.5 - 14.5 % 12/13/2024 6:51 PM EDT [facility] MPV 7.9 7.5 - 11.2 fL 12/13/2024 6:51 PM EDT [facility] Neutrophils 47.6 31.0 - 76.0 % 12/13/2024 6:51 PM EDT [facility] Neutrophil # 3.99 1.50 - 8.00 K/uL 12/13/2024 6:51 PM EDT [facility] Lymphocytes 38.1 24.0 - 44.0 % 12/13/2024 6:51 PM EDT [facility] Lymphocytes # 3.20 1.00 - 4.80 K/uL 12/13/2024 6:51 PM EDT [facility] Monocytes 11.1(H) 2.0 - 11.0 % 12/13/2024 6:51 PM EDT [facility] Monocyte # 0.93 0.20 - 1.00 K/uL 12/13/2024 6:51 PM EDT [facility] Eosinophil 2.3 0.1 - 4.0 % 12/13/2024 6:51 PM EDT [facility] Eosinophil # 0.20 0.00 - 0.70 K/uL 12/13/2024 6:51 PM EDT [facility] Basophils 1.0 <=1.9 % 12/13/2024 6:51 PM EDT [facility] Basophil # 0.08 0.00 - 0.20 K/uL 12/13/2024 6:51 PM EDT [facility] Blood BLOOD SPECIMEN / Unknown Venipuncture / Unknown 12/13/2024 6:33 PM EDT 12/13/2024 6:45 PM EDT us Cody Miranda DO EC LAB ORDER ONLY Final Resul t [facility] [address] [place] [address] * HIV1 HIV2 AGAB SCRN (12/13/2024 6:33 PM EDT) HIV Ag-Ab Screen Non-React zulay Non-React zulay 12/13/2024 8:26 PM EDT [facility] Comment:No laboratory eviden ce for HIV Infection. Negative result does not rule out acute HIV infection. If acute HIV infection is suspected, recommend ordering an HIV-1 RNA quanitification test. Blood BLOOD SPECIMEN / Unknown Venipuncture / Unknown 12/13/2024 6:33 PM EDT 12/13/2024 6:44 PM EDT Narrative [facility] - 12/13/2024 8:26 PM EDT HIV Information: White Rev. code 3701.243(E): This information has been [...] release of HIV test results or diagnoses. Cody Miranda DO EC HIV/HEP/SYPH TESTING Final Result [facility] [address] [place] [address] * HIGH SENSITIVITY TROPONIN I (12/13/2024 6:33 PM EDT) HS Troponin I <4 <=15 ng/L 12/13/2024 7:15 PM EDT [facility] Blood BLOOD SPECIMEN / Unknown Venipuncture / Unknown 12/13/2024 6:33 PM EDT 12/13/2024 6:45 PM EDT Narrative [facility] - 12/13/2024 7:15 [...] within the clinical context using provider judgement. Cody Miranda DO 98 GENERAL LAB Final Result [facility] [address] [place] [address] * BASIC METABOLIC PANEL (12/13/2024 6:33 PM EDT) Glucose 97 74 - 109 mg/dL 12/13/2024 7:12 PM EDT [facility] Sodium 142 136 - 145 mmol/L 12/13/2024 7:12 PM EDT [facility] Potassium 3.6 3.5 - 5.0 mmol/L 12/13/2024 7:12 PM EDT [facility] Carbon Dioxide 29 21 - 31 mmol/L 12/13/2024 7:12 PM EDT [facility] Chloride 102 98 - 107 mmol/L 12/13/2024 7:12 PM EDT [facility] Blood Urea Nitrogen 10 7 - 25 mg/dL 12/13/2024 7:12 PM EDT [facility] Creatinine 0.75 0.60 - 1.20 mg/dL 12/13/2024 7:12 PM EDT [facility] Calcium 9.7 8.6 - 10.3 mg/dL 12/13/2024 7:12 PM EDT [facility] Anion Gap 15 10 - 20 12/13/2024 7:12 PM EDT [facility] Estimated GFR (CKD-EPI) 110 >=60 mL/min/1. 73sqm 12/13/2024 7:12 PM EDT [facility] Comment: 2020 CKD [...] Inclusion of Race in Diagnosing Kidney Disease. [place] Journal of Kidney Diseases 2021;79(2):268- 88.e1. 2. N Engl J Med 1 Vol. 385 Issue 19 Pages 9110-7569 Blood BLOOD SPECIMEN / Unknown Venipuncture / Unknown 12/13/2024 6:33 PM EDT 12/13/2024 6:44 PM EDT Cody Miranda DO 98 GENERAL LAB Final Result Performing Organization Address City/[facility] Co de Phone Number [facility] [address] [place] [phone] * PROTHROMBIN TIME AND INR (12/13/2024 6:33 PM EDT) Protime 11.5 9.7 - 12.9 sec 12/13/2024 7:17 PM EDT [facility] INR 1.03 0.90 - 1.10 12/13/2024 7:17 PM EDT [facility] Blood BLOOD SPECIMEN / Unknown Venipuncture / Unknown 12/13/2024 6:33 PM EDT 12/13/2024 6:45 PM EDT Cody PST Tankerspaulette DO 98 GENERAL LAB Final Result [facility] [address] [place] [address] * PARTIAL THROMBOPLASTIN TIME (12/13/2024 6:33 PM EDT) aPTT 30 25 - 37 sec 12/13/2024 7:17 PM EDT [facility] Blood BLOOD SPECIMEN / Unknown Venipuncture / Unknown 12/13/2024 6:33 PM EDT 12/13/2024 6:45 PM EDT Cody Miranda DO 98 GENERAL LAB Final Result Performing Organization Address [facility] de Phone Number [facility] [address] [place] [phone] * TSH (12/13/2024 6:33 PM EDT) TSH 0.465 0.450 - 5.330 uIU/mL 12/13/2024 7:24 PM EDT [facility] Comment: Referance range for women as applicable: First Trimester: 0. 050 to 3.700 uIU/mL Second Trimester: 0. 310 to 4.350 uIU/mL Third Trimester: 0. 410 to 5.180 uIU/mL Blood BLOOD SPECIMEN / Unknown Venipuncture / Unknown 12/13/2024 6:33 PM EDT 12/13/2024 6:44 PM EDT [facility] 98 GENERAL LAB Final Result Performing Organization Address [facility] Co de Phone Number [facility] [address] [place] [address] * MAGNESIUM (12/13/2024 6:33 PM EDT) Magnesium 2.4 1.9 - 2.7 mg/dL 12/13/2024 7:12 PM EDT [facility] Blood BLOOD SPECIMEN / Unknown Venipuncture / Unknown 12/13/2024 6:33 PM EDT 12/13/2024 6:44 PM EDT Cody Miranda DO 98 GENERAL LAB Final Result Performing Organization Address City/[facility]/ZIP Co de Phone Number [facility] [address] [place] [phone] * LACTIC ACID (12/13/2024 6:33 PM EDT) Pathologist [facility] Lactate 1.6 0.5 - 1.6 mmol/L 12/13/2024 6:47 PM EDT [facility] Blood BLOOD SPECIMEN / Unknown Venipuncture / Unknown 12/13/2024 6:33 PM EDT 12/13/2024 6:43 PM EDT Narrative [facility] - 12/13/2024 6:47 PM EDT This test was developed, and its performance characteristics determined by the Department of Pathology of [facility]. It has not been cleared or approved by the FDA. This test is used for clinical purposes only. Cody Juniordeborahjulio c DO 98 GENERAL LAB Final Result Performing Organization Address [facility] de Phone Number [facility] [address] [place] [phone] * GLUCOSE, FINGERSTICK-IN OFFICE (12/13/2024 6:25 PM EDT) [facility] Glucose, POC 95 74 - 109 mg/dL 12/13/2024 6:42 PM EDT NURSING GLUCOSE PROGRAM Blood BLOOD SPECIMEN / Unknown 12/13/2024 6:25 PM EDT 12/13/2024 6:42 PM EDT Christina Tony MD EC BACK OFFICE LABS Final Result Performing Organization Address City/[facility]/ZIP Co de Phone Number NURSING GLUCOSE PROGRAM [address] [place] [phone] * CBC WITH DIFFERENTIAL (12/13/2024 5:10 AM EDT) [facility] WBC 7.0 4.5 - 11.5 K/uL 12/13/2024 6:15 AM EDT [facility] RBC 4.67 4.00 - 5.20 M/uL 12/13/2024 6:15 AM EDT [facility] Hemoglobin 13.5 12.0 - 15.0 g/dL 12/13/2024 6:15 AM EDT [facility] Hematocrit 38.1 36.0 - 46.0 % 12/13/2024 6:15 AM EDT [facility] MCV 82 80 - 100 fL 12/13/2024 6:15 AM EDT [facility] MCH 29.0 26.0 - 34.0 pg 12/13/2024 6:15 AM EDT [facility] MCHC 35.6 32.0 - 35.9 g/dL 12/13/2024 6:15 AM EDT [facility] Platelet 266 150 - 400 K/uL 12/13/2024 6:15 AM EDT [facility] RDW-CV 13.0 11.5 - 14.5 % 12/13/2024 6:15 AM EDT [facility] MPV 8.0 7.5 - 11.2 fL 12/13/2024 6:15 AM EDT [facility] Neutrophils 49.2 31.0 - 76.0 % 12/13/2024 6:15 AM EDT [facility] Neutrophil # 3.46 1.50 - 8.00 K/uL 12/13/2024 6:15 AM EDT [facility] Lymphocytes 38.0 24.0 - 44.0 % 12/13/2024 6:15 AM EDT [facility] Lymphocytes # 2.66 1.00 - 4.80 K/uL 12/13/2024 6:15 AM EDT [facility] Monocytes 9.7 2.0 - 11.0 % 12/13/2024 6:15 AM EDT [facility] Monocyte # 0.68 0.20 - 1.00 K/uL 12/13/2024 6:15 AM EDT [facility] Eosinophil 2.5 0.1 - 4.0 % 12/13/2024 6:15 AM EDT [facility] Eosinophil # 0.17 0.00 - 0.70 K/uL 12/13/2024 6:15 AM EDT [facility] Basophils 0.7 <=1.9 % 12/13/2024 6:15 AM EDT [facility] Basophil # 0.05 0.00 - 0.20 K/uL 12/13/2024 6:15 AM EDT [facility] Blood BLOOD SPECIMEN / Unknown Venipuncture / Unknown 12/13/2024 5:10 AM EDT 12/13/2024 6:10 AM EDT Carlo Truong MD EC LAB ORDER ONLY Final Result Performing Organization Address [facility] de Phone Number [facility] [address], [place] * (ABNORMAL) HEPATIC FUNCTION PANEL (12/13/2024 5:10 AM EDT) Albumin 4.4 3.5 - 5.7 g/dL 12/13/2024 6:35 AM EDT [facility] Bilirubin, Direct 0.07 0.03 - 0.18 mg/dL 12/13/2024 6:35 AM EDT [facility] Bilirubin, Total 0.3 0.3 - 1.0 mg/dL 12/13/2024 6:35 AM EDT [facility] Comment:Note updated referen ce range. Alkaline Phosphatase 57 34 - 104 IU/L 12/13/2024 6:35 AM EDT [facility] ALT (SGPT) 6(L) 7 - 52 IU/L 12/13/2024 6:35 AM EDT [facility] AST (SGOT) 9(L) 13 - 39 IU/L 12/13/2024 6:35 AM EDT [facility] Protein, Total 6.5 6.1 - 7.9 g/dL 12/13/2024 6:35 AM EDT [facility] Comment:Note updated referen ce range. Blood BLOOD SPECIMEN / Unknown Venipuncture / Unknown 12/13/2024 5:10 AM EDT 12/13/2024 6:10 AM EDT Carlo Truong MD 98 GENERAL LAB Final Result Performing Organization Address [facility]/ZIP Co de Phone Number [facility] [address] [place] [phone] * (ABNORMAL) BASIC METABOLIC PANEL (12/13/2024 5:10 AM EDT) Glucose 119(H) 74 - 109 mg/dL 12/13/2024 6:35 AM EDT [facility] Sodium 142 136 - 145 mmol/L 12/13/2024 6:35 AM EDT [facility] Potassium 3.5 3.5 - 5.0 mmol/L 12/13/2024 6:35 AM EDT [facility] Carbon Dioxide 29 21 - 31 mmol/L 12/13/2024 6:35 AM EDT [facility] Chloride 104 98 - 107 mmol/L 12/13/2024 6:35 AM EDT [facility] Blood Urea Nitrogen 12 7 - 25 mg/dL 12/13/2024 6:35 AM EDT [facility] Creatinine 0.62 0.60 - 1.20 mg/dL 12/13/2024 6:35 AM EDT [facility] Calcium 9.4 8.6 - 10.3 mg/dL 12/13/2024 6:35 AM EDT [facility] Anion Gap 13 10 - 20 12/13/2024 6:35 AM EDT [facility] Estimated GFR (CKD-EPI) 123 >=60 mL/min/1. 73sqm 12/13/2024 6:35 AM EDT [facility] Comment: 2020 CKD [...] Inclusion of Race in Diagnosing Kidney Disease. [place] Journal of Kidney Diseases 202;79(2):268- 88.e1. 2. N Engl J Med 2021 Vol. 385 Issue 19 Pages [id number] Blood BLOOD SPECIMEN / Unknown Venipuncture / Unknown 12/13/2024 5:10 AM EDT 12/13/2024 6:10 AM EDT Carlo Truong MD 98 GENERAL LAB Final Result [facility] [address] [place] [phone] * PHOSPHORUS (12/13/2024 5:10 AM EDT) Pathologist [facility] Phosphorus, Serum 4.0 2.5 - 5.0 mg/dL 12/13/2024 6:35 AM EDT [facility] Blood BLOOD SPECIMEN / Unknown Venipuncture / Unknown 12/13/2024 5:10 AM EDT 12/13/2024 6:10 AM EDT Carlo Truong MD 98 GENERAL LAB Final Result Performing Organization Address [facility] Co de Phone Number [facility] [address] [place] [phone] * MAGNESIUM (12/13/2024 5:10 AM EDT) Pathologist [facility] Magnesium 2.2 1.9 - 2.7 mg/dL 12/13/2024 6:35 AM EDT [facility] Blood BLOOD SPECIMEN / Unknown Venipuncture / Unknown 12/13/2024 5:10 AM EDT 12/13/2024 6:10 AM EDT Carlo Truong MD 98 GENERAL LAB Final Result Performing Organization Address [facility] Co de Phone Number [facility] [address] [place] [phone] * CBC WITH DIFFERENTIAL (12/12/2024 4:35 AM EDT) [facility] WBC 6.3 4.5 - 11.5 K/uL 12/12/2024 4:44 AM EDT [facility] RBC 4.86 4.00 - 5.20 M/uL 12/12/2024 4:44 AM EDT [facility] Hemoglobin 13.7 12.0 - 15.0 g/dL 12/12/2024 4:44 AM EDT [facility] Hematocrit 39.3 36.0 - 46.0 % 12/12/2024 4:44 AM EDT [facility] MCV 81 80 - 100 fL 12/12/2024 4:44 AM EDT [facility] MCH 28.1 26.0 - 34.0 pg 12/12/2024 4:44 AM EDT [facility] MCHC 34.8 32.0 - 35.9 g/dL 12/12/2024 4:44 AM EDT [facility] Platelet 268 150 - 400 K/uL 12/12/2024 4:44 AM EDT [facility] RDW-CV 12.9 11.5 - 14.5 % 12/12/2024 4:44 AM EDT [facility] MPV 8.0 7.5 - 11.2 fL 12/12/2024 4:44 AM EDT [facility] Neutrophils 52.7 31.0 - 76.0 % 12/12/2024 4:44 AM EDT [facility] Neutrophil # 3.33 1.50 - 8.00 K/uL 12/12/2024 4:44 AM EDT [facility] Lymphocytes 32.9 24.0 - 44.0 % 12/12/2024 4:44 AM EDT [facility] Lymphocytes # 2.08 1.00 - 4.80 K/uL 12/12/2024 4:44 AM EDT [facility] Monocytes 10.8 2.0 - 11.0 % 12/12/2024 4:44 AM EDT [facility] Monocyte # 0.68 0.20 - 1.00 K/uL 12/12/2024 4:44 AM EDT [facility] Eosinophil 2.7 0.1 - 4.0 % 12/12/2024 4:44 AM EDT [facility] Eosinophil # 0.17 0.00 - 0.70 K/uL 12/12/2024 4:44 AM EDT [facility] Basophils 0.9 <=1.9 % 12/12/2024 4:44 AM EDT [facility] Basophil # 0.06 0.00 - 0.20 K/uL 12/12/2024 4:44 AM EDT [facility] Blood BLOOD SPECIMEN / Unknown Venipuncture / Unknown 12/12/2024 4:35 AM EDT 12/12/2024 4:39 AM EDT Carlo Truong MD EC LAB ORDER ONLY Final Result Performing Organization Address [facility] de Phone Number [facility] [address] [place] [phone] * (ABNORMAL) HEPATIC FUNCTION PANEL (12/12/2024 4:35 AM EDT) Albumin 4.5 3.5 - 5.7 g/dL 12/12/2024 5:08 AM EDT [facility] Bilirubin, Direct 0.08 0.03 - 0.18 mg/dL 12/12/2024 5:08 AM EDT [facility] Bilirubin, Total 0.4 0.3 - 1.0 mg/dL 12/12/2024 5:08 AM EDT [facility] Comment:Note updated referen ce range. Alkaline Phosphatase 55 34 - 104 IU/L 12/12/2024 5:08 AM EDT [facility] ALT (SGPT) 7 7 - 52 IU/L 12/12/2024 5:08 AM EDT [facility] AST (SGOT) 10(L) 13 - 39 IU/L 12/12/2024 5:08 AM EDT [facility] Protein, Total 6.5 6.1 - 7.9 g/dL 12/12/2024 5:08 AM EDT [facility] Comment:Note updated referen ce range. Blood BLOOD SPECIMEN / Unknown Venipuncture / Unknown 12/12/2024 4:35 AM EDT 12/12/2024 4:39 AM EDT Carlo Truong MD 98 GENERAL LAB Final Result Performing Organization Address [facility]/ZIP Co de Phone Number [facility] [address] [place] [phone] * (ABNORMAL) BASIC METABOLIC PANEL (12/12/2024 4:35 AM EDT) Glucose 122(H) 74 - 109 mg/dL 12/12/2024 5:08 AM EDT [facility] Sodium 139 136 - 145 mmol/L 12/12/2024 5:08 AM EDT [facility] Potassium 3.5 3.5 - 5.0 mmol/L 12/12/2024 5:08 AM EDT [facility] Carbon Dioxide 24 21 - 31 mmol/L 12/12/2024 5:08 AM EDT [facility] Chloride 105 98 - 107 mmol/L 12/12/2024 5:08 AM EDT [facility] Blood Urea Nitrogen 4(L) 7 - 25 mg/dL 12/12/2024 5:08 AM EDT [facility] Creatinine 0.62 0.60 - 1.20 mg/dL 12/12/2024 5:08 AM EDT [facility] Calcium 9.3 8.6 - 10.3 mg/dL 12/12/2024 5:08 AM EDT [facility] Anion Gap 14 10 - 20 12/12/2024 5:08 AM EDT [facility] Estimated GFR (CKD-EPI) 123 >=60 mL/min/1. 73sqm 12/12/2024 5:08 AM EDT [facility] Comment: 2020 CKD [...] Inclusion of Race in Diagnosing Kidney Disease. [place] Journal of Kidney Diseases 202;79(2):268- 88.e1. 2. N Engl J Med 2021 Vol. 385 Issue 19 Pages [id number] Blood BLOOD SPECIMEN / Unknown Venipuncture / Unknown 12/12/2024 4:35 AM EDT 12/12/2024 4:39 AM EDT us Carlo Truong MD 98 GENERAL LAB Final Result [facility] [address] [place] [phone] * PHOSPHORUS (12/12/2024 4:35 AM EDT) Phosphorus, Serum 3.7 2.5 - 5.0 mg/dL 12/12/2024 5:08 AM EDT S PATHOLOGY LAB[facility]ORY Blood BLOOD SPECIMEN / Unknown Venipuncture / Unknown 12/12/2024 4:35 AM EDT 12/12/2024 4:39 AM EDT Carlo Truong MD 98 GENERAL LAB Final Result Performing Organization Address [facility]/ZIP Co de Phone Number S PATHOLOGY LABORATORY [address] [place] [phone] * MAGNESIUM (12/12/2024 4:35 AM EDT) Magnesium 2.3 1.9 - 2.7 mg/dL 12/12/2024 5:08 AM EDT S [facility] Blood BLOOD SPECIMEN / Unknown Venipuncture / Unknown 12/12/2024 4:35 AM EDT 12/12/2024 4:39 AM EDT Carlo Truong MD 98 GENERAL LAB Final Result Performing Organization Address City/[facility] Co de Phone Number S PATHOLOGY LABORATORY [address] [place] [phone] * SURGICAL GI ANATOMIC PATHOLOGY (12/11/2024 1:51 PM EDT) Case Report Surgical Pathology Report Case: [id number] Authorizing Provider: Stella Weinstein DO Collected: 12/11/2024 1351 Ordering Location: [address] Received: 12/12/2024 1425 Pathologist: Brynn Fuller [...] the final diagnosis(es). 12/16/2024 10:56 AM EDT S PATH[facility]Y LAB[facility]ATORY at 1056 EDT Gross Description [...] cassette. [X]. RR 12/16/2024 10:56 AM EDT [facility] Clinical Information 12/16/2024 10:56 AM EDT [facility] Tissue COLONIC BIOPSY SPECIMEN / Unknown 12/11/2024 1:51 PM EDT 12/12/2024 2:25 PM EDT us Stella Weinstein DO ANATOMICAL PATHOLOGY ([place] B) Final Result Performing Organization Address [facility] Co de Phone Number [facility] [address] [place], [place] [phone] * FECAL FAT, QUALITATIVE (CRIT * (12/11/2024 1:47 AM EDT) Neutral Fat Normal Normal 12/11/2024 2:14 AM EDT [facility] Split Fat Normal Normal 12/11/2024 2:14 AM EDT [facility] Stool STOOL SPECIMEN / Unknown 12/11/2024 1:47 AM EDT 12/11/2024 1:56 AM EDT us Desire Joel MD 98 GENERAL LAB Final Result [facility] [address] [place] [phone] * PH, STOOL (12/11/2024 1:47 AM EDT) Stool pH 7.0 12/11/2024 2:14 AM EDT [facility] Stool STOOL SPECIMEN / Unknown 12/11/2024 1:47 AM EDT 12/11/2024 1:56 AM EDT us Desire Joel MD 98 GENERAL LAB Final Result [facility] [address] [place] [phone] * OSMOLALITY, STOOL (12/11/2024 1:47 AM EDT) Osmolality, Stool 410 mOsm/kg 11:03 AM EDT [facility] Comment: In patients with unexplained [...] analytical performance characteristics have been determined by [employer] [place], [place]. It has not been cleared or approved by the FDA. This assay has been validated pursuant to the CLIA regulations and is used for clinical purposes. Stool STOOL SPECIMEN / Unknown 12/11/2024 1:47 AM EDT 12/11/2024 1:56 AM EDT Narrative [facility] - 12/15/2024 11:03 AM EDT Resulting Agency Address Site ID: [facility] Name: [employer]/[facility] Address: [address] [place] [address] [place] [address] Director: Sin Bradford M.D.,PhD us Desire Joel MD 98 GENERAL LAB Final Result [facility] [address] [place] [address] * XR ABDOMEN SUPINE + ERECT 2 VIEWS (12/10/2024 12:39 PM EDT) Anatomical Region Laterality Modality XR Abdomen N/A Computed Radiogr aphy 12/10/2024 12:5 2 PM EDT Narrative 12/10/2024 12:55 PM EDT EXAMINATION: XR ABDOMEN SUPINE + ERECT 2 VIEWSPRO 12/10/2024 12:39 PM CLINICAL HISTORY: acute on chronic abd pain, GI wants for stool burden eval ASSOCIATED DIAGNOSIS: ORDERING PROVIDER: ADOLFO RODRIGUEZ TECHNCHEPE NOTE: COMPARISON: None IMPRESSION: No free intraperitoneal [...] burdeneval ASSOCIATED DIAGNOSIS: ORDERING PROVIDER: ADOLFO RODRIGUEZ TECHNCHEPE NOTE: COMPARISON: None IMPRESSION: No free intraperitoneal [...] - 5.7 g/dL 12/10/2024 3:59 AM EDT [facility] Bilirubin, Direct 0.10 0.03 - 0.18 mg/dL 12/10/2024 3:59 AM EDT [facility] Bilirubin, Total 0.6 0.3 - 1.0 mg/dL 12/10/2024 3:59 AM EDT [facility] Comment:Note updated referen ce range. Alkaline Phosphatase 53 34 - 104 IU/L 12/10/2024 3:59 AM EDT [facility] ALT (SGPT) 7 7 - 52 IU/L 12/10/2024 3:59 AM EDT [facility] AST (SGOT) 9(L) 13 - 39 IU/L 12/10/2024 3:59 AM EDT [facility] Protein, Total 6.6 6.1 - 7.9 g/dL 12/10/2024 3:59 AM EDT [facility] Comment:Note updated referen ce range. Blood BLOOD SPECIMEN / Unknown Venipuncture / Unknown 12/10/2024 3:23 AM EDT 12/10/2024 3:32 AM EDT us John Ramirez MD 98 GENERAL LAB Final Resul t [facility] [address] [facility] [place] [phone] * (ABNORMAL) URINALYSIS (12/09/2024 8:15 AM EDT) Color Yellow Colorless 12/09/2024 8:44 AM EDT [facility] Appearance Turbid Clear 12/09/2024 8:44 AM EDT [facility] pH 6.0 5.0 - 8.0 12/09/2024 8:44 AM EDT [facility] Spec [place] 1.024 <=1.030 12/09/2024 8:44 AM EDT [facility] Protein 10 Negative mg/dL 12/09/2024 8:44 AM EDT [facility] Blood Negative Negative 12/09/2024 8:44 AM EDT [facility] Bilirubin Negative Negative 12/09/2024 8:44 AM EDT [facility] Urobilinogen 2.0(A) Negative mg/dL 12/09/2024 8:44 AM EDT [facility] Ketones 60(A) Negative mg/dL 12/09/2024 8:44 AM EDT [facility] Leuk. Esterase Positive(A) Negative 8:44 AM EDT [facility] Comment:Normal urine specime ns will not produce a positive reaction. Small amounts of leukocyte esterase, causing a positive reaction should be repeated, using a fresh urine specimen, from the same patient. Positive results require further testing for pyuria. Nitrite Negative Negative 12/09/2024 8:44 AM EDT [facility] Glucose Negative Negative mg/dL 12/09/2024 8:44 AM EDT [facility] WBC 11-30(A) 0 - 2 /HPF 12/09/2024 8:44 AM EDT [facility] RBC 6-10(A) 0 - 2 /HPF 12/09/2024 8:44 AM EDT [facility] Bacteria Few /HPF 12/09/2024 8:44 AM EDT [facility] Yeast Few /HPF 12/09/2024 8:44 AM EDT [facility] Mucous Threads Present 12/09/2024 8:44 AM EDT [facility] Squamous Epithelial 6-10 0 - 10 /HPF 12/09/2024 8:44 AM EDT [facility] Urine MID-STREAM URINE SPECIMEN / Unknown 12/09/2024 8:15 AM EDT 12/09/2024 8:18 AM EDT Narrative [facility] - 12/09/2024 8:44 [...] LAB Final Resul t Performing Organization Address [facility] Co de Phone Number [facility] [address] [place] [address] * HCG URINE (12/09/2024 8:15 AM EDT) HCG, Urine Negative Negative 12/09/2024 8:33 AM EDT [facility] Urine URINE SPECIMEN / Unknown 12/09/2024 8:15 AM EDT 12/09/2024 8:18 AM EDT John Ramirez MD 98 GENERAL LAB Final Resul t Performing Organization Address City/[facility] Co de Phone Number [facility] [address] [place] [address] * CBC WITH DIFFERENTIAL (12/09/2024 8:03 AM EDT) WBC 6.6 4.5 - 11.5 K/uL 12/09/2024 8:31 AM EDT [facility] RBC 4.87 4.00 - 5.20 M/uL 12/09/2024 8:31 AM EDT [facility] Hemoglobin 13.8 12.0 - 15.0 g/dL 12/09/2024 8:31 AM EDT [facility] Hematocrit 38.9 36.0 - 46.0 % 12/09/2024 8:31 AM EDT [facility] MCV 80 80 - 100 fL 12/09/2024 8:31 AM EDT [facility] MCH 28.3 26.0 - 34.0 pg 12/09/2024 8:31 AM EDT [facility] MCHC 35.4 32.0 - 35.9 g/dL 12/09/2024 8:31 AM EDT [facility] Platelet 259 150 - 400 K/uL 12/09/2024 8:31 AM EDT [facility] RDW-CV 12.8 11.5 - 14.5 % 12/09/2024 8:31 AM EDT [facility] MPV 8.3 7.5 - 11.2 fL 12/09/2024 8:31 AM EDT [facility] Neutrophils 63.1 31.0 - 76.0 % 12/09/2024 8:31 AM EDT [facility] Neutrophil # 4.14 1.50 - 8.00 K/uL 12/09/2024 8:31 AM EDT [facility] Lymphocytes 25.3 24.0 - 44.0 % 12/09/2024 8:31 AM EDT [facility] Lymphocytes # 1.66 1.00 - 4.80 K/uL 12/09/2024 8:31 AM EDT [facility] Monocytes 10.0 2.0 - 11.0 % 12/09/2024 8:31 AM EDT [facility] Monocyte # 0.66 0.20 - 1.00 K/uL 12/09/2024 8:31 AM EDT [facility] Eosinophil 1.2 0.1 - 4.0 % 12/09/2024 8:31 AM EDT [facility] Eosinophil # 0.08 0.00 - 0.70 K/uL 12/09/2024 8:31 AM EDT [facility] Basophils 0.3 <=1.9 % 12/09/2024 8:31 AM EDT [facility] Basophil # 0.02 0.00 - 0.20 K/uL 12/09/2024 8:31 AM EDT [facility] MDW 17 <=20 12/09/2024 8:31 AM EDT [facility] Blood BLOOD SPECIMEN / Unknown Venipuncture / Unknown 12/09/2024 8:03 AM EDT 12/09/2024 8:15 AM EDT us John Ramirez MD EC LAB ORDER ONLY Final Res ult [facility] [address] [place] [phone] * (ABNORMAL) HEPATIC FUNCTION PANEL (12/09/2024 8:03 AM EDT) Albumin 4.9 3.5 - 5.7 g/dL 12/09/2024 8:41 AM EDT [facility] Bilirubin, Direct 0.16 0.03 - 0.18 mg/dL 12/09/2024 8:41 AM EDT [facility] Bilirubin, Total 1.2(H) 0.3 - 1.0 mg/dL 12/09/2024 8:41 AM EDT [facility] Comment:Note updated referen ce range. Alkaline Phosphatase 55 34 - 104 IU/L 12/09/2024 8:41 AM EDT [facility] ALT (SGPT) 9 7 - 52 IU/L 12/09/2024 8:41 AM EDT [facility] AST (SGOT) 10(L) 13 - 39 IU/L 12/09/2024 8:41 AM EDT [facility] Protein, Total 7.2 6.1 - 7.9 g/dL 12/09/2024 8:41 AM EDT [facility] Comment:Note updated referen ce range. Blood BLOOD SPECIMEN / Unknown Venipuncture / Unknown 12/09/2024 8:03 AM EDT 12/09/2024 8:15 AM EDT us John Ramirez MD [facility] Final Resul t [facility] [address] [place] [phone] * BASIC METABOLIC PANEL (12/09/2024 8:03 AM EDT) Glucose 94 74 - 109 mg/dL 12/09/2024 8:41 AM EDT [facility] Sodium 140 136 - 145 mmol/L 12/09/2024 8:41 AM EDT [facility] Potassium 3.7 3.5 - 5.0 mmol/L 12/09/2024 8:41 AM EDT [facility] Carbon Dioxide 28 21 - 31 mmol/L 12/09/2024 8:41 AM EDT [facility] Chloride 102 98 - 107 mmol/L 12/09/2024 8:41 AM EDT [facility] Blood Urea Nitrogen 17 7 - 25 mg/dL 12/09/2024 8:41 AM EDT [facility] Creatinine 0.67 0.60 - 1.20 mg/dL 12/09/2024 8:41 AM EDT [facility] Calcium 9.6 8.6 - 10.3 mg/dL 12/09/2024 8:41 AM EDT [facility] Anion Gap 14 10 - 20 12/09/2024 8:41 AM EDT [facility] Estimated GFR (CKD-EPI) 121 >=60 mL/min/1. 73sqm 12/09/2024 8:41 AM EDT [facility] Comment: 2020 CKD EPI Equation using Creatinine without Race Comment: Estimated glomerular filtration rate (eGFR) is calculated without a race coefficient. Values should be interpreted in the context of the patient's full clinical presentation. Reference: 1. Jon Alfred, Coy M, [place] SNYDER, et al.. A Unifying Approach for GFR Estimation: Recommendations of the NKF-ASN Task Force on Reassessing the Inclusion of Race in Diagnosing Kidney Disease. [place] Journal of Kidney Diseases 2021;79(2):268- 88.e1. 2. N Engl J Med 1 Vol. 385 Issue 19 Pages 7033-6089 Blood BLOOD SPECIMEN / Unknown Venipuncture / Unknown 12/09/2024 8:03 AM EDT 12/09/2024 8:15 AM EDT John Ramirez MD [facility] Final Resul t [facility] [address], [place] * (ABNORMAL) LIPASE (12/09/2024 8:03 AM EDT) Lipase 9(L) 11 - 82 IU/L 12/09/2024 8:41 AM EDT [facility] Blood BLOOD SPECIMEN / Unknown Venipuncture / Unknown 12/09/2024 8:03 AM EDT 12/09/2024 8:15 AM EDT John Ramirez MD [facility] Final Resul t Performing Organization Address City/[facility]/ZIP Co de Phone Number [facility] [address], [place] from Last 3 Months Insurance [address] [place], [place] [id number] [employer] [facility] Address: [facility] [id number] [place] [address] Advance Directives * Full Code (Latest Code Status on File) Date Activated Date Inactivated Comments 12/11/2024 11:06 AM 12/14/2024 8:46 PM Question Answer Comments Documentation of decision pr ocess for this code status: Discussed with patient or surrogate. This is the code status chosen by the patient/surrogate. * Full Code Date Activated Date Inactivated Comments 12/09/2024 12:03 PM 12/11/2024 11:06 AM Question Answer Comments Documentation of decision pr ocess for this code status: Discussed with patient or surrogate. This is the code status chosen by the patient/surrogate.
--- OUTSIDE RECORDS SUMMARY | 2024-12-16 11:57 | XMS_ITS | Encounter Summary ---
Author Organization [facility] Address [address] [place] [address] Care Team Providers Care Paper Steamer Name Role Phone Kapil Patel DO Primary Care Provider [phone] Kapil Patel DO Unavailable [phone] Reason for Visit * Reason Onset Date Comments Med Refill 12/04/2024 Encounter Details Date Type Department Care Team (Late st Contact Info) Description 12/04/2024 Refill [facility] [phone] [place] [id number] Kami Fuentes MA Insomnia, psychophysiological Social History [...] you attend [facility] or rastafarian services? More than 4 times per year [...] Recorded Patient Health Questionnaire-2 Score 0 11/22/2024 [facility] Answer Date [...] any time in the past 12 m [facility], were you homeless or living in a [...] 2:00 PM EST Office Visit [facility] Neu[facility] [address] [place] [phone] Cole Phillip MD [address] [facility] [address] [place], [place] [id number] 04/30/2025 2:15 PM EST Office Visit [facility] [address] [place] [phone] Reji De Luna DO [address] [place] [address] documented as of this encounter Visit Diagnoses Diagnosis Insomnia, psychophysiological documented in this encounter Care Teams Paper Steamer Relationship Specialty Start Date End Date Kapil Patel DO [address] [place] [address] PCP - General Family Medicine 10/08/24 Kapil Patel DO [address] [facility] [address] [place] [address] PCP - [place] [employer] 10/24/24 documented as of this encounter
--- OUTSIDE RECORDS SUMMARY | 2024-12-16 11:57 | XMS_ITS | Encounter Summary ---
Author Organization [facility] Address [address] [facility] [place] [address] Care Team Providers Care Data Lead Name Role Phone Unavailable Primary Care Provider Unavailabl e Encounter Details Date Type Department Care Team (Latest Contact Info) Description 12/13/2024 Travel Social History Tobacco Use Types Packs/Day Years Used Date Smoking Tobacco: Never Assessed [facility] Utilities Answer Date Recorded In the past [...] rded In the past 12 months has e electric, gas, oil, or water company [...] Info) Description 12/19/2024 11:00 AM EDT Telemedicine [facility] Internal Medicine [address] [place] [id number] Marjorie Bustillos MD [address] [place] [phone] 02/06/2025 3:00 PM EST Office Visit [facility] [address] [place] [address] Nathanael Trimble MD [address] [place] [id number] documented as of this encounter Visit Diagnoses Not on filedocumented in this encounter
--- OUTSIDE RECORDS SUMMARY | 2024-12-16 11:57 | XMS_ITS | Clinical Summary ---
Author Organization [facility] Address [address] [place] [address] Care Team Providers Care [employer] Dean Name Role Phone Kapil Patel DO Primary Care Provider [phone] Kapil Patel DO Unavailable [phone] Allergies Active Allergy Reactions Criticality Noted Date Comments Dhea Rash,Unknown Low 11/28/2021 Dihydroergotamine Unknown 09/27/2024 Diphenhydramine Anaphylaxis,Rash,Hiv es, Other High 10/31/2015 Iodine Rash Low 05/02/2023 Triptans 10/24/2024 Other Reaction(s): Unknown Medications galcanezumab (Emgality) 120 MG/ML prefilled syringeIndications:In tractable [...] FOR PAIN for 20 days 2024 Active polyethylene glycol, PEG, 3350 (Glycolax) 17 GM/SCOOP powder 2024 Active promethazine (Phenergan) 25 MG tablet 2024 Active linaCLOtide (Linzess) 72 MCG capsuleIndications:Di arrhea, unspecified type,Chronic fatigue Take 1 capsule (72 mcg) by mouth in the morning. Take before meals. Do not crush or chew. 30 capsule 11 11/22 Active buPROPion (Wellbutrin) 100 MG tabletIndications:Dep ression, unspecified depression type TAKE 1 TABLET BY MOUTH IN THE MORNING AND BEFORE BEDTIME 180 tablet 1 2024 Active pancrelipase, Ray-Liur-Xenj, (Creon) 6000-14326 units capsuleIndications:Pa ncreatic insufficiency (HCC) Take 1 capsule by mouth in the morning and 1 capsule at noon and 1 capsule in the evening. Take with meals. 90 capsule 01/01 Active zolpidem (Ambien) 10 MG tabletIndications:Ins omnia, psychophysiological 1 tab prn at bedtime 20 tablet 5 2024 Active venlafaxine XR (Effexor XR) 225 MG 24 hr tabletIndications:Int ractable chronic migraine without aura and with status migrainosus TAKE 1 TABLET BY MOUTH EVERY DAY WITH FOOD 90 tablet 1 2024 Active pantoprazole (ProtoNix) 40 MG EC tabletIndications:Gen eralized pain TAKE 1 TABLET BY MOUTH ONCE A DAY *DO NOT CRUSH/CHEW/SPLIT * 90 tablet 1 2024 Active venlafaxine XR (Effexor XR) 225 MG 24 hr tabletIndications:Int ractable chronic migraine without aura and with status migrainosus TAKE 1 TABLET BY MOUTH EVERY DAY WITH FOOD 90 tablet 1 12/09 Discontinued zolpidem (Ambien) 10 MG tabletIndications:Ins omnia, psychophysiological [...] (Zofran-ODT) 4 MG disintegrating tablet 11/22 Discontinued pantoprazole (ProtoNix) 40 MG EC tabletIndications:Gen eralized pain Take 1 tablet (40 mg) by mouth Daily Do not crush, chew, or split. 30 tablet 12/09 Discontinued ciprofloxacin (Cipro) 500 MG tabletIndications:Gen eralized pain Take 1 tablet (500 mg) by mouth in the morning and 1 tablet (500 mg) in the evening. Do all this for 7 days. 14 tablet 11/22 Discontinued sucralfate (Carafate) 1 GM/10ML suspensionIndications :Diarrhea, unspecified type,Chronic fatigue Take 10 mL (1 g) by mouth in the morning and 10 mL (1 g) at noon and 10 mL (1 g) in the evening and 10 mL (1 g) before bedtime. Take with meals. Do all this for 14 days. 460 mL 12/06 ondansetron ODT (Zofran-ODT) 4 MG disintegrating tablet Take 4 mg by mouth 12/06 Active Problems Problem Noted Date Diagnosed Date [...] brain c/s Gd ATTN pituitary. - [facility] [place]. Assessment & Plan (04/16/2024 4:46 PM EST): Pit hormone panel. 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 - [facility]. Assessment & Plan (08/22/2023 4:25 PM EDT): Pit hormone panel. 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 - [facility] [place]. Insomnia, psychophysiological 11/11/2022 Assessment & Plan (10/22/2024 4:36 PM EDT): (Continue current regimen.) Assessment & Plan (04/16/2024 4:46 PM EST): Change zaleplon, retry zolpidem 10 mg #20. (Longer duration of [...] patient and family PFO (patent foramen ovale) ([facility]) 02/03/2015 Resolved Problems Problem Noted Date Diagnosed [...] Encounters Date Type Department Care Team Description 12/08/2024 Clinisync Result Encounter [facility] External Department Unsolicited Provider, Generic External Data 12/07/2024 Refill [facility] [address] [facility] [address] [place] [address] Kapil Patel, Generalized pain 12/07/2024 Refill [facility] [address] [place] [phone] Cole Phillip MD Intractable chronic migraine without aura and with status migrainosus 12/07/2024 Clinisync Result Encounter NOM[facility] External Department Unsolicited Provider, Generic External Data 12/06/2024 Clinisync Result Encounter [facility]OM[facility] External Department Unsolicited Provider, Generic External Data 12/05/2024 Refill [facility] [address] [place] [phone] Donna Oconnor NP Insomnia, psychophysiological 12/04/2024 Patient Outreach [facility] [address] [place] [address] Jose, Paz, MANAGER VIDEO 12/04/2024 Abstract [facility] [address] [place] [phone] Kapil Patel, DO 12/04/2024 Refill [facility] [address] [facility] [address] [phone] Kami Fuentes MA Insomnia, psychophysiological 12/03/2024 Results Follow-Up [facility] [address] [place] [phone] Kapil Patel, Comprehensive metabolic panel, Ferritin, Vitamin B12, Additional followed-up results: 13 12[facility] [address] [place] [phone] Kapil Patel, Pancreatic insufficiency (HCC) (Primary Dx) 12/02/2024 [facility] [address] [place] [phone] Kapil Patel, 11/30/2024 Refill [facility] [address] [facility] [address] [phone] Cole Phillip MD Depression, unspecified depression type [...] Marcelle Ryan MD 11/28/2024 Patient Outreach [facility] [address] [place] [phone] [place], [facility] 11/22/2024 10:30 AM EDT Office Visit [facility] [address] [place] [address] Kapil Patel, DO Diarrhea, unspecified type (Primary Dx); Chronic fatigue 11/22/2024 Abstract [facility] [address] [place] [address] Kapil Patel, DO 11/22/2024 Bamboo flowsheet [facility] [address] [place] [phone] Kapil Patel, DO 11/22/2024 Travel 11/21/2024 Patient Outreach [facility] [address] [place] [address] Magda Barcenas MANAGER VIDEO 11/20/2024 Abstract [facility] [address] [place] [address] Kapil Patel, DO 11/20/2024 Abstract [facility] [address] [place] [address] Kapil Patel, DO 11/19/2024 Abstract [facility] [address] [place] [address] Kapil Patel, DO 11/19/2024 Abstract [facility] [address] [place] [address] Kapil Patel, DO 11/19/2024 Abstract [facility] [address] [place] [address] Kapil Patel, DO 11/19/2024 Abstract [facility] [address] [place] [address] Kapil Patel, DO 11/19/2024 Abstract [facility] [place] [facility] [address] [place] [address] Kapil Patel, DO 11/18/2024 Abstract [facility] [address] [place] [address] Kapil Patel, DO 11/14/2024 8:30 AM EDT Office Visit [facility] [address] [place] [address] Kapil Patel, DO Generalized pain (Primary Dx); Abdominal pain, unspecified abdominal location; Nausea 11/14/2024 Bamboo flowsheet [facility] [address] [place] [address] Kapil Patel, DO 11/14/2024 Travel 11/13/2024 [facility] [address] [place] [address] Kapil Patel, DO 11/12/2024 Travel 11/12/2024 Telephone [facility] [address] [place] [address] Kapil Patel, DO Appointment Request 11/04/2024 [facility] [address] [place] [phone] Kami Olvera MD 10/30/2024 2:05 PM EDT Ancillary Procedure [facility] [address] [place] [address] 10/30/2024 2:00 PM EDT Office Visit [facility] [place] [facility] [address] [place] [address] Pérez Deleon, DPM Hav (hallux abducto valgus), right (Primary Dx); Contracture of right ankle 10/30/2024 Bamboo flowsheet [facility] [place] [facility] [address] [place] [address] Pérez Deleon DPM 10/28/2024 3:00 PM EDT [facility] [address] [place] [address] Reji De Luna, DO Thyroid nodule 10/28/2024 Bamboo flowsheet [facility] [facility] [address] [place] [address] Reji De Luna, DO 10/28/2024 Travel 10/23/2024 [facility] [address] [place] [phone] Cole Phillip MD Migraine without aura, intractable, with status migrainosus 10/22/2024 4:15 PM EDT Office Visit [facility] [address] [phone] Cole Phillip MD Migraine without aura, intractable, with status migrainosus (Primary Dx); Pituitary gland enlarged (HCC); Insomnia, psychophysiological; Cervical paraspinal muscle spasm; Intractable chronic migraine without aura and with status migrainosus 10/22/2024 [facility] [address] [phone] Cole Phillip MD Migraine without aura, intractable, with status migrainosus 10/22/20[address]amboo [address] [facility] [address] [place] [address] Cole Phillip MD 10/22/2024 Travel 10/16/2024 3:00 PM EDT [facility] [address] [place] [address] Pérez Deleon DPM Hav (hallux abducto valgus), right (Primary Dx); Contracture of right ankle 10/16/2024 Bamboo flowsheet [facility] [place] [facility] [address] [place] [address] Pérez Deleon DPM 10/14/2024 Orders Only [facility] [address] [place] [facility] [place] [address] Kami Olvera MD Thyroid nodule (Primary Dx) 10/09/2024 2:05 PM EDT Ancillary Procedure [facility] [address] [place] [address] 10/09/2024 2:00 PM EDT Office Visit [facility] [address] [place] [address] Pérez Deleon DPM Hav (hallux abducto valgus), right (Primary Dx); Contracture of right ankle 10/09/2024 Bamboo flowsheet [facility] [address] [place] [address] Pérez Deleon DPM 10/08/2024 10:45 AM EDT Ancillary Procedure [facility] [address] [place] [address] Thyroid enlarged 10/08/2024 Travel 10/02/2024 Abstract [facility] [address] [place] [phone] Pérez Deleon DPM 09/28/2024 Orders Only [facility] [address] [place] [phone] Kami Olvera MD 09/28/2024 Results Follow-Up [facility] [address] [place] [address] Jessica Morris NP TSH W/REFLEX TO FT4, US thyroid 09/27/2024 3:50 PM EDT Office Visit [facility] [address] [place] [address] Pérez Deleon, DPLeif Hav (hallux abducto valgus), right (Primary Dx); Contracture of right ankle 09/27/2024 1:00 PM EDT Office Visit [facility] [address] [place] [address] Kami Olvera MD Preop examination (Primary Dx); Thyroid enlarged 09/27/2024 Abstract [facility] [place] [facility] [address] [place] [address] Pérez Deleon DPM 09/27/2024 Bamboo flowsheet [facility] [address] [place] [address] Kami Olvera MD 09/27/2024 Travel 09/18/2024 Abstract [facility] [address] [place] [address] Pérez Deleon DPM 09/16/2024 Orders Only [facility] [address] [place] [address] Marbella Zhang Preop examination from Last 3 [...] week 11/12/2024 How often do you attend [facility] or confucianist services? More than 4 times [...] Recorded Patient Health Questionnaire-2 Score 0 11/22/2024 [facility] - Occupational Stress Questionnaire Answer Date [...] any time in the past 12 m [facility], were you homeless or living in a [...] [facility] [address] [facility] [address] [place] [phone] Cole Phillip MD [address] [facility] [address] [place] [address] 04/30/2025 2:15 PM EST Office Visit [facility] [address] [place] [address] Reji De Luna, DO [address] [place] [address] Health Maintenance Due Date Last Done Comments Pap Smear 2015 Cervical Cancer Screening 01/02/2024 HPV/Cotest 01/02/2024 Influenza Vaccine (#1) 2024 Procedures Procedure Name Priority Date/Time Associated Diagnosis Comments [facility] CMP (CMP) (FOR [facility]OTE [facility] USE) Routine 12/08/2024 5:32 AM EDT ALL CBC WITH AUTO DIFF Routine 5:32 AM EDT [facility] CMP (CMP) (FOR REMOTE [facility] USE) Routine 12/07/2024 5:12 AM EDT ALL CBC WITH AUTO DIFF Routine 5:12 AM EDT [facility] INFLUENZA A/B, COVID 2019 PCR,SYMPTOMATIC Routine 12/06/2024 5:22 PM EDT ALL MAGNESIUM Routine 12/06/2024 5:19 PM EDT [facility] CMP (CMP) (FOR REMOTE [facility] USE) Routine 12/06/2024 5:19 PM EDT ALL CBC WITH AUTO DIFF Routine 5:[address] SOFT TISSUE NECK W IV CONTRAST [...] BINDING CAPACITY Routine 11/29/2024 8:50 AM EDT LACTATE DEHYDROGENASE Routine 11/29/2024 8:50 AM EDT RESULT Routine [...] enlarged from Last 3 Months Results * (ABNORMAL) [facility] CMP (CMP) (FOR [facility]OTE [facility] USE) (12/08/2024 5:32 AM EDT) Only the most recent of3 resultswithin the time period is included. [facility] GLUCOSE 82 74 - 99 mg/dL [facility] SODIUM 140 136 - 145 mmol/L [facility] POTASSIUM 3.0(L) 3.5 - 5.3 mmol/L [facility] CHLORIDE 104 98 - 107 mmol/L [facility] BICARBONATE 27 21 - 32 mmol/L [facility] ANION GAP 12 10 - 20 mmol/L [facility] UREA NITROGEN 14 6 - 23 mg/dL [facility] CREATININE 0.60 0.50 - 1.05 mg/dL [facility] GFRAT >90 >60 mL/min/1.7 3m*2 [facility] Comment: Calculations of estimated GFR are performed using the 2020 CKD-EPI Study Refit equation without the race variable for the IDMS-Traceable creatinine methods. https://jasn.asnjournals.org/content///ASN.3360739477 [facility] CALCIUM 8.8 8.6 - 10.6 mg/dL [facility] ALBUMIN 4.3 3.4 - 5.0 g/dL [facility] ALKALINE PHOSPHATASE 57 33 - 110 U/L [facility] TOTAL PROTEIN 6.7 6.4 - 8.2 g/dL [facility] AST 10 9 - 39 U/L [facility] BILIRUBIN,TOTAL 0.9 0.0 - 1.2 mg/dL [facility] ALT 10 7 - 45 U/L Comment:Patients treated wit h Sulfasalazine may generate falsely decreased results for ALT. Blood 12/08/2024 5:32 AM EDT 12/08/2024 6:27 AM EDT Narrative CLINISYNC - 12/08/2024 7:00 AM EDT Original Ordering Provider: ERNIE BALDERAS Generic External Data Provider CLINERENNC Jozef inal Result Performing Organization Address [facility] de Phone Number TIFF [address] [place] [address] * ALL CBC WITH AUTO DIFF (12/08/2024 5:32 AM EDT) Only the most recent of3 resultswithin the time period is included. [facility] WBC 5.8 4.4 - 11.3 x10*3/uL [facility] NUCLEATED RBC 0.0 0.0 - 0.0 /100 WBCs [facility] RBC 4.57 4.00 - 5.20 x10*6/uL [facility] HGB 12.5 12.0 - 16.0 g/dL [facility] HCT 36.5 36.0 - 46.0 % [facility] MCV 80 80 - 100 fL MCH 27.4 26.0 - 34.0 pg [facility] MCHC 34.2 32.0 - 36.0 g/dL [facility] RDW-CV 11.9 11.5 - 14.5 % [facility] PLT 221 150 - 450 x10*3/uL Blood 12/08/2024 5:32 AM EDT 12/08/2024 6:27 AM EDT Narrative CLINISYNC - 12/08/2024 6:43 AM EDT Original Ordering Provider: ERNIE BALDERAS Generic External Data Provider ALEXEIISYNC F inal Result Performing Organization Address [facility] de Phone Number TIFF [address] [place] [phone] * INFLUENZA A/B, COVID 2019 PCR,SYMPTOMATIC (12/06/2024 5:22 PM EDT) [facility] INFLUENZA A, PCR Not Detected Not Detected [facility] INFLUENZA B, PCR Not Detected Not Detected CORONAVIRUS 2019 BY PCR (COV19) NOT DETECTED Not Detected Swab 12/06/2024 5:22 PM EDT 12/06/2024 5:43 PM EDT Narrative CLINISYNC - 12/06/2024 6:40 PM EDT This assay is an FDA-cleared, in vitro diagnostic nucleic acid amplification test for the qualitative detection and differentiation of SARS CoV-2/ Influenza A/B from nasopharyngeal specimens collected from individuals with signs and symptoms of respiratory tract infections, and has been validated for use at [facility]. Negative results do not preclude COVID-19/ Influenza A/B infections and should not be used as the sole basis for diagnosis, treatment, or other management decisions. Testing for SARS CoV-2 is recommended only for patients who meet current clinical and/or epidemiological criteria defined by federal, state, or local public health directives. Original Ordering Provider: ERNIE BALDERAS Generic External Data Provider CLINISYNC F inal Result Performing Organization Address [facility] Co de Phone Number [facility] [address] [place] [phone] * ALL MAGNESIUM (12/06/2024 5:19 PM EDT) [facility] MAGNESIUM 2.13 1.60 - 2.40 mg/dL Blood 12/06/2024 5:19 PM EDT 12/06/2024 5:45 PM EDT Narrative CLINISYNC - 12/06/2024 6:13 PM EDT Original Ordering Provider: ERNIE BALDERAS Generic External Data Provider CLINISYNC F inal Result Performing Organization Address [facility] Co de Phone Number [facility] [address] [place] [phone] * CT soft tissue neck w IV contrast (11/29/2024 1:16 PM EDT) Anatomical Region Laterality Modality Head, Neck Computed Tomogra phy 11/29/2024 1:16 PM EDT Impressions 11/29/2024 1:[address] soft tissue neck. No pathologically enlarged lymph nodes. Impression dictated by: Erma Lopez Jr.OGhassan 11/29/2024 1:18 PM Dictation Location: [place] [address] Transcribed By: [facility] 11/29/248 Dictated By: Jesus Ledesma Jr, DO 11/29/24 1316 Signed By: <Electronically signed by Jesus Ledesma Jr, DO in OV> 11/29/24 1318 Narrative 11/29/2024 1:20 PM EDT [place] [id number] CT Scan Report Signed Patient: Negro Stacy MR#: [id number] 46 : 1995 Acct:[id number] Age/Sex: 29 / F ADM Date: 11/29/24 Loc: Room: Type: [facility] [...] Procedure Note Jesus Ledesma Jr., - 11/29/[address] [place] [address] CT Scan Report Signed Patient: Negro Stacy KMR#: [id number] 46 : 1995Acct:[id number] Age/Sex: 29 / FADM Date: 11/29/24 Loc: XT [facility] Dr: Marcelle Ryan MD Copies to: [...] Jr., D.OGhassan 11/29/2024 1:18 PM Dictation Location: [place] [address] Transcribed By: [facility] 11/29/24 1318 Dictated By: Jesus Ledesma Jr, DO 11/29/24 1316 Signed By: <Electronically signed by Jesus Ledesma Jr DO inOV> 11/29/24 1318 us Marcelle Ryan [...] Jr., D.O. 11/29/2024 1:16 PM Dictation Location: [place] [address] Transcribed By: [facility] 11/29/24 1316 Dictated By: Jesus Ledesma Jr, DO 11/29/24 1313 Signed By: <Electronically signed by Jesus Ledesma Jr, DO in OV> 11/29/24 1316 Narrative 11/29/2024 1:18 PM EDT [facility] Main [place] [address] [place] [address] CT Scan Report Signed Patient: Negro Stacy MR#: [id number] 47 : 1995 Acct:[id number] Age/Sex: 29 / F ADM Date: 11/29/24 Loc: Room: Type: [facility] RCR Attending Dr: Marcelle Ryan MD [...] Note Jesus Ledesma Jr., DO - 11/29/2024 [facility] Main [place] [address] [place] [address] CT Scan Report Signed Patient: Negro Stacy KMR#: [id number] 46 : 1995Acct:[id number] Age/Sex: 29 / FADM Date: 11/29/24 Loc: [...] thechest. Impression dictated by: Jesus Ledesma Jr., D.O. 11/29/2024 1:16 PM Dictation Location: [place] [address] Transcribed By: [facility] 11/29/24 1316 Dictated By: Jesus Ledesma Jr, DO 11/29/24 1313 Signed By: <Electronically signed by Jesus Ledesma Jr, DO inOV> 11/29/24 1316 us Marcelle Ryan MD IMG CT PROCEDURES Final Result * VIT. B12/FOLATE PROFILE (11/29/2024 8:50 AM EDT) VITAMIN B12 312 180 - 914 pg/mL 11/29/2024 11:10 AM EDT [facility] FOLATE 9.3 >5.9 ng/mL 11/29/2024 11:08 AM EDT [facility] Comment: Folate reference range: >5.9 ng/ml The WHO technical consultation on folate and vitamin b12 deficiencies has determined that folate concentrations less than 4 ng/ml are considered deficient. Other Topography unknown / Unknown 11/29/2024 8:50 AM EDT 11/29/2024 8:54 AM EDT us Marcelle Ryan MD LAB BLOOD ORDERABLES Final Resul t Performing Organization Address [facility] Co de Phone Number [address] [address], [address] [address] * (ABNORMAL) Iron and TIBC (11/29/2024 8:50 AM EDT) IRON 106 50 - 212 ug/dL 11/29/2024 10:44 AM EDT [facility] TOTAL IRON BINDING CAPACITY 246(L) 255 - 450 ug/dL 11/29/2024 10:44 AM EDT [facility] % IRON SATURATION 43.1 20 - 50 % 11/29/2024 10:44 AM EDT [facility] TRANSFERRIN 176(L) 203 - 362 mg/dL 11/29/2024 10:44 AM EDT [facility] Other Topography unknown / Unknown 11/29/2024 8:50 AM EDT 11/29/2024 8:54 AM EDT us Marcelle Ryan MD LAB BLOOD ORDERABLES Final Resul t Performing Organization Address City/[facility] Co de Phone Number [address] [address], [address] [address] * Copper, serum (11/29/2024 8:50 AM EDT) COPPER 65 80 - 158 ug/dL 12/03/2024 8:36 AM EDT [facility] Comment: This test was developed and its performance characteristics determined by [facility]. It has not been cleared or approved by the Food and Drug Administration. Detection Limit = 5 Performed at: [address] [id number] Underwriting Operations Manager: Carlos Guerra MD, Phone: [phone] Other Topography unknown / Unknown 11/29/2024 8:50 AM EDT 11/29/2024 8:54 AM EDT Marcelle Ryan MD LAB BLOOD ORDERABLES Final Resul t Performing Organization Address [facility] de Phone Number [place] [phone], [place] * Ceruloplasmin (11/29/2024 8:50 AM EDT) CERULOPLASMIN 14.8 19.0 - 39.0 mg/dL 11/30/2024 4:36 AM EDT [facility] Comment: Performed at: [address] [id number] Underwriting Operations Manager: Shiva Christopher PhD, Phone: [phone] Other Topography unknown / Unknown 11/29/2024 8:50 AM EDT 11/29/2024 8:54 AM EDT Marcelle Ryan MD LAB BLOOD ORDERABLES Final Resul t Performing Organization Address [facility] de Phone Number [place] [phone], [place] * (ABNORMAL) TSH (11/29/2024 8:50 AM EDT) THYROID STIMULATING HORMONE 0.33(L) 0.45 - 5.33 u[iU]/mL 11/29/2024 10:59 AM EDT [facility] Other Topography unknown / Unknown 11/29/2024 8:50 AM EDT 11/29/2024 8:54 AM EDT Marcelle Ryan MD LAB BLOOD ORDERABLES Final Resul t Performing Organization Address City/[facility] Co de Phone Number [address] [address], [address] [address] * T4, free (11/29/2024 8:50 AM EDT) FREE T4 (FREE THYROXINE) 0.62 0.61 - 1.12 ng/dL 11/29/2024 11:00 AM EDT [facility] Other Topography unknown / Unknown 11/29/2024 8:50 AM EDT 11/29/2024 8:54 AM EDT Marcelle Ryan MD LAB BLOOD ORDERABLES Final Resul t Performing Organization Address [facility] Co de Phone Number [address] [address], [address] [address] * Lactate dehydrogenase (11/29/2024 8:50 AM EDT) LDH LACTATE DEHYDROGENASE 143 140 - 271 U/L 11/29/2024 10:44 AM EDT [facility] Other Topography unknown / Unknown 11/29/2024 8:50 AM EDT 11/29/2024 8:54 AM EDT us Marcelle Ryan MD LAB BLOOD ORDERABLES Final Resul t Performing Organization Address City/[facility] Co de Phone Number [address] [address], [address] [address] * Ferritin (11/29/2024 8:50 AM EDT) Only the most recent of2 resultswithin the time period is included. FERRITIN 29.9 11.0 - 306.8 ng/mL 11/29/2024 11:05 AM EDT [facility] Other Topography unknown / Unknown 11/29/2024 8:50 AM EDT 11/29/2024 8:54 AM EDT Marcelle Ryan MD LAB BLOOD ORDERABLES Final Resul t Performing Organization Address City/[facility]/ZIP Co de Phone Number [facility] [address] [place] [address], [facility] [address] [place] [address] * RESULT (11/26/2024 10:48 AM EDT) RESULT 1 Comment [facility] Comment: No ova, cysts, or parasites seen. One negative specimen does not rule out the possibility of a parasitic infection. 11/26/2024 10:4 8 AM EDT 11/26/2024 Narrative [facility] - 12/03/2024 8:07 AM EDT Performed at: [facility] [address] [id number] Underwriting Operations Manager: Shiva Christopher PhD, Phone: [phone] Kapil Patel DO LAB BLOOD ORDERABLES Final Result Performing Organization Address [facility] de Phone Number [facility] * RESULT (11/26/2024 10:48 AM EDT) RESULT 1 Comment [facility] Comment:No Campylobacter spe cies isolated. 11/26/2024 10:4 8 AM EDT 11/26/2024 Narrative [facility] - 12/03/2024 8:07 AM EDT Performed at: [facility] [address] [id number] Underwriting Operations Manager: Shiva Christopher PhD, Phone: [phone] Kapil Patel DO LAB BLOOD ORDERABLES Final Result Performing Organization Address [facility] Co de Phone Number [facility] * RESULT (11/26/2024 10:48 AM EDT) RESULT 1 Comment [facility] Comment:No Salmonella or Johanny gella recovered. 11/26/2024 10:4 8 AM EDT 11/26/2024 Narrative [facility] - 12/03/2024 8:07 AM EDT Performed at: [address] [place] [id number] Underwriting Operations Manager: Shiva Christopher PhD, Phone: [phone] Kapil Patel DO LAB BLOOD ORDERABLES Final Result Performing Organization Address [facility] de Phone Number [facility] * Ova and parasites with giardia antigen (11/26/2024 10:48 AM EDT) OVA + PARASITE EXAM Final report [facility] Comment: These results were obtained using wet preparation(s) and trichrome stained smear. This test does not include testing for Cryptosporidium parvum, Cyclospora, or Microsporidia. Giardia lamblia Ag, EIA Negative Negative [facility] Stool Rectal contents / Unknown 11/26/2024 10:48 AM EDT 11/26/2024 Comment:[facility]- [id number] Narrative [facility] - 12/03/2024 8:07 AM EDT Performed at: [address] [place] [id number] Underwriting Operations Manager: Shiva Christopher PhD, Phone: [phone] Kapil Patel DO LAB BODY FLUIDS AND STOOLS ORDERABLES Final Result Performing Organization Address [facility] de Phone Number [facility] * CALPROTECTIN STOOL [...] 8:07 AM EDT Performed at: 02 - [address] [id number] Underwriting Operations Manager: Carlos Guerra MD, Phone: [phone] Kapil Patel DO LAB BODY FLUIDS AND STOOLS ORDERABLES Final Result Performing Organization Address [facility] Co de Phone Number [facility] * Iron [...] 12/03/2024 8:07 AM EDT Performed at: - [address] [id number] Underwriting Operations Manager: Shiva Christopher PhD, Phone: [phone] Kapil Patel DO LAB BLOOD ORDERABLES Final Result Performing Organization Address [facility] de Phone Number [facility] * H. pylori antigen, stool (11/26/2024 10:48 AM EDT) Pathologist [facility] H. PYLORI STOOL AG, EIA Negative Negative [facility] Stool Rectal contents / Unknown 11/26/2024 10:48 AM EDT 11/26/2024 Comment: CD- [id number] Narrative [facility] - 12/03/2024 8:07 AM EDT Performed at: [address] [id number] Underwriting Operations Manager: Shiva Christopher PhD, Phone: [phone] Kapil Patel DO LAB BODY FLUIDS AND STOOLS ORDERABLES Final Result Performing Organization Address [facility] de Phone Number [facility] * Clostridium difficile toxin (11/26/2024 10:48 AM EDT) C DIFFICILE, CYTOTOXIN B Comment [facility] Comment: Negative No cytotoxin detected. Reference Range: Negative Stool Rectal contents / Unknown 11/26/2024 10:48 AM EDT 11/26/2024 Comment:[facility]- [id number] Narrative [facility] - 12/03/2024 8:07 AM EDT Performed at: 01 - [address] [id number] Underwriting Operations Manager: Shiva Christopher PhD, Phone: [phone] Kapil Patel DO LAB MICROBIOLOGY - GENERAL ORDERABLES Final Result Performing Organization Address [facility] de Phone Number [facility] * Stool culture (11/26/2024 10:48 AM EDT) SALMONELLA/SHIGEL LA SCREEN Final report [facility] CAMPYLOBACTER CULTURE Final report [facility] E COLI SHIGELLA TOXIN EIA Negative Negative [facility] Stool Rectal contents / Unknown 11/26/2024 10:48 AM EDT 11/26/2024 Comment: - [id number] Narrative [facility] - 12/03/2024 8:07 AM EDT Performed at: [address] [id number] Underwriting Operations Manager: Shiva Christopher PhD, Phone: [phone] Kapil Patel DO LAB MICROBIOLOGY - GENERAL ORDERABLES Final Result Performing Organization Address [facility] de Phone Number [facility] * (ABNORMAL) Magnesium (11/26/2024 10:48 AM EDT) Magnesium 2.4(H) 1.6 - 2.3 mg/dL [facility] Blood Venous blood specimen / Unknown 11/26/2024 10:48 AM EDT 11/26/2024 Narrative [facility] - 12/03/2024 8:07 AM EDT Performed at: [address] [place] [id number] Underwriting Operations Manager: Shiva Christopher PhD, Phone: [phone] Kapil Patel LAB BLOOD ORDERABLES Final Result Performing Organization Address [facility] de Phone Number [facility] * Lipase (11/26/2024 10:48 AM EDT) [facility] LIPASE 33 14 - 72 U/L [facility] Blood Venous blood specimen / Unknown 11/26/2024 10:48 AM EDT 11/26/2024 [facility] - 12/03/2024 8:07 AM EDT Performed at: [address] [place] [id number] Underwriting Operations Manager: Shiva Christopher PhD, Phone: [phone] Kapil Patel LAB BLOOD ORDERABLES Final Result Performing Organization Address [facility] Phone Number [facility] * Folate (11/26/2024 10:48 AM EDT) [facility] Folate 6.4 >3.0 ng/mL [facility] Comment: A serum folate concentration of less than 3.1 ng/mL is considered to represent clinical deficiency. Blood Venous blood specimen / Unknown 11/26/2024 10:48 AM EDT 11/26/2024 Narrative [facility] - 12/03/2024 8:07 AM EDT Performed at: [address] [id number] Underwriting Operations Manager: Shiva Christopher PhD, Phone: [phone] Kapil Patel LAB BLOOD ORDERABLES Final Result Performing Organization Address [facility] Co de Phone Number [facility] * Vitamin B12 (11/26/2024 10:48 AM EDT) [facility] Vitamin B12 469 232 - 1,245 pg/mL [facility] Blood Venous blood specimen / Unknown 11/26/2024 10:48 AM EDT 11/26/2024 Narrative [facility] - 12/03/2024 8:07 AM EDT Performed at: [address] [place] [id number] Underwriting Operations Manager: Shiva Christopher PhD, Phone: [phone] Kapil Patel DO LAB BLOOD ORDERABLES Final Result Performing Organization Address [facility] Co de Phone Number [facility] * Amylase (11/26/2024 10:48 AM EDT) [facility] AMYLASE 43 31 - 110 U/L [facility] Blood Venous blood specimen / Unknown 11/26/2024 10:48 AM EDT 11/26/2024 Narrative [facility] - 12/03/2024 8:07 AM EDT Performed at: [address] [place] [id number] Underwriting Operations Manager: Shiva Christopher PhD, Phone: [phone] Kapil Patel DO LAB BLOOD ORDERABLES Final Result Performing Organization Address [facility] Phone Number [facility] * Comprehensive metabolic panel (11/26/2024 10:48 AM [...] 8:07 AM EDT Performed at: 01 - [address] [id number] Underwriting Operations Manager: Shiva Christopher PhD, Phone: [phone] us Kapil Patel DO LAB BLOOD ORDERABLES [...] annually until 5 years. ELECTRONICALLY SIGNED BY: DO Leonides Issa 10/08/2024 2:25 PM EDT US THYROID History: [...] years. ELECTRONICALLY SIGNED BY: Zak Holbrook DO Kami Olvera MD IMG US PROCEDURES Final [...] Performing Organization Information Site ID: [id number] Name: [id number] Address: [address] [place] [id number] Director: Gasper Weldon MD Kami Olvera MD LAB BLOOD ORDERABLES Final Re sult [facility] from Last 3 Months Insurance BCBS Care Teams University Dean Relationship Specialty Start Date End Date Kapil Patel DO [address] [place] [address] PCP - General Family Medicine 10/08/24 Kapil Patel DO [address] [place] [address] PCP - [place] [employer] 10/24/24
--- OUTSIDE RECORDS SUMMARY | 2024-12-16 11:57 | XMS_ITS | Encounter Summary ---
Author Organization [facility] Address [address] [place] [address] Care Team Providers Care Parquet Floor Layer'S Helper Name Role Phone Kami Olvera MD Primary Care Provider [phone] Jazzy Dunn RN Unavailable [phone] David House MD Unavailable [phone] Odette Lopez PA-C Unavailable [phone] Rubens Singh MD Unavailable [phone] Source Comments In the event this information is protected by the Federal Confidentiality of Alcohol and Drug AbusePatient Records regulations: The Federal rules restrict any use of the information to criminally investigate or prosecute any alcohol or drug abuse patient.[facility] Encounter Details Date Type Department Care Team (Late st Contact Info) Description 09/17/2021 Patient Msg General Surgery [address] [facility] [address] [place] [address] [place] [address] [address] [facility] [address] [place] [address] Appointment Request Social History Tobacco Use Types [...] No 09/08/2021 Housing Stability Vital Sign Answer Andarde e Recorded In the last 12 months, [...] place to sleep or slept in a detention (including now)? No 09/08/2021 Area Deprivation Index Answer Date Juan rded National Score (1-100), lower number is lower ri sk 66 08/05/2021 State Score (1-10), lower number is lower risk N ot on file 08/05/2021 Data from: https://www.neighborhoodatlas.medicine.[facility].edu/. Last address used for [...] on filedocumented in this encounter Care Teams Parquet Floor Layer'S Helper Relationship Specialty Start Date End Date Kami Olvera MD [address] [place] [phone] PCP - General Family Medicine 02/01/17 Jazzy Dunn RN [address] [place] [address] [place] [address] Specialty Supervisor Paper Machine Hematology/Oncology 07/27/21 04/30/23 David House MD [address] [place] [address] Physician Hematology/Oncology 07/27/21 Odette Lopez, PAPonchoC [address] [place] [address] Physician Gasoline Dragline Operator Hematology/Oncology 07/27/21 Rubens Singh MD [address] [place] [address] [place] [address] Physician Hematology/Oncology 10/08/21 [facility] Palliative Medicine Provider 08/30/21 documented as of this encounter
--- OUTSIDE RECORDS SUMMARY | 2024-12-16 11:57 | XMS_ITS | Encounter Summary ---
Author Organization [facility] Address [address] [place] [address] Care Team Providers Care Soaping Department Supervisor Name Role Phone Kapil Patel DO Primary Care Provider [phone] Kapil Patel DO Unavailable [phone] Encounter Details Date Type Department Care Team (Latest Contact Info) Description 12/03/2024 Results Follow-Up [facility] [address] [facility] [address] [place] [address] Kapil Patel, DO [address] [facility] [address] [place] [address] Comprehensive metabolic panel, Ferritin, Vitamin B12, Additional [...] How often do you attend chur or anabaptism services? More than 4 times per year 11/12/2024 Do you belong to any clubs o r organizations such as adventist groups, unions, fraternal or athletic groups, or [...] Recorded Patient Health Questionnaire-2 Score 0 11/22/2024 [facility] - Occupational Stress Questionnaire Answer Date [...] time in the past 12 m [facility], were you homeless or living in a long-term (including now)? No 11/12/2024 Comments Unknown Sex [...] 2:00 PM EST Office Visit [facility] [address] [facility] [address] [place] [address] Cole Phillip MD [address] [facility] [address] [place] [address] 04/30/2025 2:15 PM EST Office Visit [facility] [address] [place] [phone] Reji De Luna DO [address] [place] [address] documented as of this encounter Visit Diagnoses Not on filedocumented in this encounter Care Teams Soaping Department Supervisor Relationship Specialty Start Date End Date Kapil Patel DO [address] [place] [address] PCP - General Family Medicine 10/08/24 Kapil Patel DO [address] [place] [address] PCP - Amita Roque 10/24/24 documented as of this encounter
--- OUTSIDE RECORDS SUMMARY | 2024-12-16 11:57 | XMS_ITS | Encounter Summary ---
Author Organization [facility] Healthcare Address [address] [place] [address] [place] [address] Care Team Providers Care Anatomic Pathology Manager Name Role Phone Kapil Patel DO Primary Care Provider [phone] Kapil Patel DO Unavailable [phone] Reason for Referral * Consultation (Routine) - Authorized Specialty Diagnoses / Procedures Referred By Beba romero Referred To Contact Gastroenterology Diagnoses Nausea Anxiety diarrhea Procedures IA OFFICE/OUTPATIENT [facility] 60 MINUTES Kapil Patel DO [address] [place] [address] Phone: tel: fax: Haley Chung MD [facility] DORIAN BERMUDEZ, [address] [address] Phone: tel: fax: Referral ID Status Reason Start Date Expiration Date Visits Requested Visits Authorized [id number] Authorized Specialty Services Required 12/05/2024 06/03/2025 1 1 Encounter Details Date Type Department Care Team (Late st Contact Info) Description 12/04/2024 Patient Outreach [facility] POPULATION [facility] [address] [place] [address] MondayRatna LPN [address] [facility] [address] [place] [address] Social History Tobacco Use Types Packs/Day Years [...] How often do you attend chur or oriental orthodox services? More than 4 times per year [...] Recorded Patient Health Questionnaire-2 Score 0 11/22/2024 [facility] - Occupational Stress Questionnaire Answer Date Recorded [...] as of this encounter Progress Notes * Ratna Monday, COMPANION CAREGIVER - 12/04/2024 2:45 PM EDT Flowsheet Row Patient Outreach from 12/04/2024 in [facility] with Ratna Monday, COMPANION CAREGIVER Hospital Information ED, Hospital or Jail Facility Discharge? ED Patient has been contacted within 2 days of being seen in the ED Yes Diagnosis abdominal pain, diarrhea Discharge Date 12/03/24 Discharged To: Home Setting Discharge Hospital [facility] Engagement Call Start Time 1453 Admission [...] she has a preference? There is a associate professor of economics in [place] too, as well as [place] where the referral was sent. She does not care, she just wants to find out what is going on. She continues with the diarrhea and nothing helps that she has tried up to this point. I let her know I will see ifa referral can be sent to [facility] as well, then whichever one can get her in sooner will call and get her an appt. She is agreeable to this. She was walking in to her oncology appt as we were finishing up this phone call, she does not want to schedule an ER follow-up at this time. documented in this encounter Miscellaneous Notes * Addendum Note - Ratna Pabon LPN - 12/04/2024 2:45 PM EDTAddended by: RATNA PABON on: 12/05/2024 03:22 PM Modules accepted: Orders documented in this encounter Plan of Treatment Upcoming Encounters Date Type Department Care Team (Late st Contact Info) Description 04/29/2025 2:00 PM EST Office Visit [facility] [address] [place] [address] Cole Phillip MD [address] [facility] [address] [place] [address] 04/30/2025 2:15 PM EST Office Visit [facility] [address] [place] [address] Reji De Luna DO [address] [place] [address] Scheduled Referrals Name Type Priority Associated Diagnoses Order Schedule Ambulatory referral to Gastroenterology Outpatient Referral Routine Nausea Anxiety diarrhea Expected: 12/05/2024 (Approximate), Expires: 06/04/2025 documented as of this encounter Visit Diagnoses Diagnosis Anxiety diarrhea- Primary Gastrointestinal malfunction arising from mental factors Generalized pain Anxiety Anxiety state, unspecified Nausea Nausea alone documented in this encounter Care Teams Anatomic Pathology Manager Relationship Specialty Start Date End Date Kapil Patel DO [address] [place] [address] PCP - General Family Medicine 10/08/24 Kapil Patel DO [address] [place] [address] PCP - [place] [employer] 10/24/24 documented as of this encounter
--- OUTSIDE RECORDS SUMMARY | 2024-12-16 11:57 | XMS_ITS | Clinical Summary ---
Author Organization [facility] Address [address] [place] [address] Care Team Providers Care Shorthand Teacher Name Role Phone Unavailable Primary Care Provider [...]
--- OUTSIDE RECORDS SUMMARY | 2024-12-16 11:57 | XMS_ITS | Encounter Summary ---
Author Organization [facility] Address [address] [place] [address] Care Team Providers Care Telemetry Tech Name Role Phone Kapil Patel DO Primary Care Provider [phone] Kapil Patel DO Unavailable [phone] Encounter Details Date Type Department Care Team (Late st Contact Info) Description 12/04/2024 Abstract [facility] [address] [facility] [facility] [address] [place] [address] Kapil Patel, DO [address] [address] [place] [address] Social History Tobacco Use Types Packs/Day Years [...] week 11/12/2024 How often do you attend [facility] or druze services? More than 4 times per year 11/12/2024 Do you belong to any clubs o r organizations such as nondenominational groups, unions, fraternal or athletic groups, or [...] Patient Health Questionnaire-2 Score 0 11/22/2024 [facility] Questionnaire Answer [...] [facility] [address] [facility] [address] [place] [address] Cole Phillip MD [address] [facility] [address] [place], [place] [id number] 04/30/2025 2:15 PM EST Office Visit [facility] [address] [place] [address] Reji De Luna DO [address] [place] [address] documented as of this encounter Visit Diagnoses Not on filedocumented in this encounter Care Teams Telemetry Tech Relationship Specialty Start Date End Date Kapil Patel DO [address] [place] [address] PCP - General Family Medicine 10/08/24 Kapil Patel DO [address] [place] [address] PCP - [place] [employer] 10/24/24 documented as of this encounter
--- OUTSIDE RECORDS SUMMARY | 2024-12-16 11:58 | XMS_ITS | Encounter Summary ---
Author Organization [facility] Address [address] [place] [address] Phone Care Team Providers Care Head Of Biology Name Role Phone Kami Olvera MD Primary Care Provider [phone] Encounter Details Date Type Department Care Team (Late st Contact Info) Description 12/09/2024 Telephone [facility] Emergency Medicine [address] [place] [phone] [place] [address] [place], [place] [phone] Social History Tobacco Use Types Packs/Day Years Used Date Smoking Tobacco: Never Assessed Comments Unknown Sex and Gender Information Value Date Recorded Sex Assigned at Not on file Legal Sex Female 6:57 PM EST Gender Identity Not on file Sexual Orientation Not on file documented as of this encounter Functional Status documented as of this encounter Plan of Treatment Not on file documented as of this encounter Visit Diagnoses Not on filedocumented in this encounter Additional Health Concerns Infection Onset Date Last Indicated Resolved Time C. difficile Rule-Out 12/08/2024 12/08/20242024 8:42 PM EDT Gastrointestinal Rule-Out 12/08/2024 12/08/2024 8:40 PM EDT documented as of this encounter Care Teams Head Of Biology Relationship Specialty Start Date End Date Kami Olvera MD [address] [place] [id number] PCP - General 03/20/99 documented as of this encounter
--- OUTSIDE RECORDS SUMMARY | 2024-12-16 11:58 | XMS_ITS | Encounter Summary ---
Author Organization [facility] Address [address] [place] [address] Care Team Providers Care President Ergonomic Consulting Name Role Phone Kami Olvera MD Primary Care Provider [phone] Jazzy Dunn RN Unavailable [phone] David House MD Unavailable [phone] Odette Lopez PA-C Unavailable [phone] Rubens Singh MD Unavailable [phone] Source Comments In the event this [...] Description 10/27/2020 Patient Msg Pre Anesthesia [address] [place], [place] [id number] Deonna Shepard PA-C [address] [place] [address] Medications day of procedure Social [...] N ot on file 02/23/2020 Data from: https://www.neighborhoodatlas.medicine.[facility].edu/. Last address used for calculation [...] documented as of this encounter Care Teams President Ergonomic Consulting Relationship Specialty Start Date End Date Kami Olvera MD [address] [place] [address] PCP - General Family Medicine 02/01/17 Jazzy Dunn, RN [address] [place] [address] [place] [address] Specialty Ux Lead Hematology/Oncology 07/27/21 04/30/23 David House MD [address] [place] [address] [place] [address] Physician Hematology/Oncology 07/27/21 Odette Lopez, PA-C [address] [place] [address] [place] [address] Physician Nut Sifter Hematology/Oncology 07/27/21 Rubens Singh MD [address] [place] [address] [place] [address] Physician Hematology/Oncology 10/08/21 Fran [facility] Palliative Medicine Provider 08/30/21 documented as of this encounter
--- OUTSIDE RECORDS SUMMARY | 2024-12-16 11:58 | XMS_ITS | Clinical Summary ---
Author Organization [facility] Address [id number] [address] [id number] Care Team Providers Care Qa Reviewer Name Role Phone Unavailable Primary Care Provider [...]
--- OUTSIDE RECORDS SUMMARY | 2024-12-16 11:58 | XMS_ITS | Encounter Summary ---
Author Organization [facility] Address [address] [place] [address] Care Team Providers Care Dean Of Graduate Studies Name Role Phone Kami Olvera MD Primary Care Provider [phone] Jazzy Dunn RN Unavailable [phone] David House MD Unavailable [phone] Odette Lopez PA-C Unavailable [phone] Rubens Singh MD Unavailable [phone] Source Comments In the event this information is protected by the Federal Confidentiality of Alcohol and Drug AbusePatient Records regulations: The Federal rules restrict any use of the information to criminally investigate or prosecute any alcohol or drug abuse patient.[facility] Encounter Details Date Type Department Care Team (Latest Contact Info) Description 07/12/2021 H&P External-NonCCF Provider, REY Webre Do not enter address information under generic [...] documented as of this encounter Care Teams Dean Of Graduate Studies Relationship Specialty Start Date End Date Kami Olvera MD [address] [place] [address] PCP - General Family Medicine 02/01/17 Jazzy Dunn RN [address] [facility] [place] [address] Specialty Tobacco Stemmer Hematology/Oncology 07/27/21 04/30/23 David House MD [address] [facility] [place] [address] Physician Hematology/Oncology 07/27/21 Odette Lopez PA-C [address] [facility] [place] [address] Physician Service Liaison Representative Hematology/Oncology 07/27/21 Rubens Singh MD [address] [place] [address] Physician Hematology/Oncology 10/08/21 Fran [facility] Palliative Medicine Provider 08/30/21 documented as of this encounter
--- OUTSIDE RECORDS SUMMARY | 2024-12-16 11:58 | XMS_ITS | Encounter Summary ---
Author Organization [facility] Address [address] [place] [address] Care Team Providers Care Vp Director Of Finance Name Role Phone JustoDevonte page Primary Care Provider Kami Olvera MD Primary Care Provider [phone] Jazzy Dunn RN Unavailable [phone] David House MD Unavailable [phone] Odette Lopez PA-C Unavailable [phone] Rubens Singh MD Unavailable [phone] Source Comments In the event this information is protected by the Federal Confidentiality of Alcohol and Drug AbusePatient Records regulations: The Federal rules restrict any use of the information to criminally investigate or prosecute any alcohol or drug abuse patient.[facility] Encounter Details Date Type Department Care Team (Late st Contact Info) Description 10/02/2014 Get Medical Advice Neurology [address] [place] [address] Lidia Jones PA-C [address] [place] [address] RE: Visit Follow Up Question [...] documented as of this encounter Care Teams Vp Director Of Finance Relationship Specialty Start Date End Date Devonte Kemp DO PCP - General Family Medicine 05/03/13 01/31/17 Kami Olvera MD [address] [place] [address] PCP - General Family Medicine 02/01/17 Jazzy Dunn RN [address] [facility] [place] [address] Specialty Boiler Control Technician Hematology/Oncology 07/27/21 04/30/23 David House MD [address] [place], [place] [address] [place] [address] Physician Hematology/Oncology 07/27/21 Odette Lopez, PA-C [address] [facility] [place] [address] Physician Lead Inspector Hematology/Oncology 07/27/21 Rubens Signh MD [address] [facility] [place] [address] Physician Hematology/Oncology 10/08/21 KrysMARVIN [facility] Palliative Medicine Provider 08/30/21 documented as of this encounter
--- OUTSIDE RECORDS SUMMARY | 2024-12-16 11:58 | XMS_ITS | Encounter Summary ---
Author Organization [facility] Address [address] [place] [address] Care Team Providers Care Industrial Automation Specialist Name Role Phone Kami Olvera MD Primary Care Provider [phone] Jazzy Dunn RN Unavailable [phone] David House MD Unavailable [phone] Odette Lopez PA-C Unavailable [phone] Rubens Singh MD Unavailable [phone] Source Comments In the event this information is protected by the Federal Confidentiality of Alcohol and Drug AbusePatient Records regulations: The Federal rules restrict any use of the information to criminally investigate or prosecute any alcohol or drug abuse patient.[facility] Encounter Details Date Type Department Care Team (Late st Contact Info) Description 12/14/2020 Patient BMI [facility] [address] [place] [address] Provider, Ccf Preop Information Social [...] N ot on file 02/23/2020 Data from: https://www.neighborhoodatlas.medicine.[facility].edu/. Last address used for calculation Not on [...] documented as of this encounter Care Teams Industrial Automation Specialist Relationship Specialty Start Date End Date Kami Olvera MD [address] [place] [address] PCP - General Family Medicine 02/01/17 Jazzy Dunn RN [address] [place], [place] [address] Specialty Wooden Box Maker Hematology/Oncology 07/27/21 04/30/23 David House MD [address] [place] [address] Physician Hematology/Oncology 07/27/21 Odette Lopez PA-C [address] [place] [address] [place] [address] Physician Youth Officer Hematology/Oncology 07/27/21 Rubens Singh MD [address] [place] [address] Physician Hematology/Oncology 10/08/21 Fran [facility] Palliative Medicine Provider 08/30/21 documented as of this encounter
--- OUTSIDE RECORDS SUMMARY | 2024-12-16 11:58 | XMS_ITS | Encounter Summary ---
Author Organization [facility] Address [address] [place] [address] Care Team Providers Care Quality Lab Technician Name Role Phone Kami Olvera MD Primary Care Provider [phone] Jazzy Dunn RN Unavailable [phone] David House MD Unavailable [phone] Odette Lopez PA-C Unavailable [phone] Rubens Singh MD Unavailable [phone] Source Comments In the event this information is protected by the Federal Confidentiality of Alcohol and Drug AbusePatient Records regulations: The Federal rules restrict any use of the information to criminally investigate or prosecute any alcohol or drug abuse patient.[facility] Encounter Details Date Type Department Care Team (Late st Contact Info) Description 06/08/2021 Patient Msg General Surgery [address] [place] [address] Provider, Ccf Upcoming appointment Social [...] ot on file 02/23/2020 Data from: https://www.neighborhoodatlas.medicine.[facility].edu/. Last address used for calculation Not [...] documented as of this encounter Care Teams Quality Lab Technician Relationship Specialty Start Date End Date Kami Olvera MD [address] [place] [address] PCP - General Family Medicine 02/01/17 Jazzy Dunn RN [address] [facility] [place] [address] Specialty Family Protection Specialist Hematology/Oncology 07/27/21 04/30/23 David House MD [address] [place] [address] Physician Hematology/Oncology 07/27/21 Odette Lopez PA-C [address] [place] [address] Physician Dry House Wheeler Hematology/Oncology 07/27/21 Rubens Singh MD [address] [place] [address] Physician Hematology/Oncology 10/08/21 Fran [facility] Palliative Medicine Provider 08/30/21 documented as of this encounter
--- OUTSIDE RECORDS SUMMARY | 2024-12-16 11:58 | XMS_ITS | Encounter Summary ---
Author Organization [facility] Address [address] [place] [address] Care Team Providers Care Rim Fire Charger Operator Name Role Phone Kami Olvera MD Primary Care Provider [phone] Jazzy Dunn RN Unavailable [phone] David House MD Unavailable [phone] Odette Lopez PA-C Unavailable [phone] Rubens Singh MD Unavailable [phone] Source Comments In the event this information is protected by the Federal Confidentiality of Alcohol and Drug AbusePatient Records regulations: The Federal rules restrict any use of the information to criminally investigate or prosecute any alcohol or drug abuse patient.[facility] Encounter Details Date Type Department Care Team (Late st Contact Info) Description 12/08/2020 Get Medical Advice Gastroenterology [address] [place] [address] [place] [address] [place] [address] RE: Visit Follow Up Question [...] on file 02/23/2020 Data from: https://www.neighborhoodatlas.medicine.[facility].edu/. Last address used for calculation Not [...] documented as of this encounter Care Teams Rim Fire Charger Operator Relationship Specialty Start Date End Date Kami Olvera MD [address] [place] [address] PCP - General Family Medicine 02/01/17 Jazzy Dunn RN [address] [place] [address] [place] [address] Specialty Electrical Installation Inspector Hematology/Oncology 07/27/21 04/30/23 David House MD [address] [place] [address] [place] [address] Physician Hematology/Oncology 07/27/21 Odette Lopez PA-C [address] [place] [address] [place] [address] Physician Resp Therapist Hematology/Oncology 07/27/21 Rubens Singh MD [address] [place] [address] [place] [address] Physician Hematology/Oncology 10/08/21 Fran [facility] Palliative Medicine Provider 08/30/21 documented as of this encounter
--- OUTSIDE RECORDS SUMMARY | 2024-12-16 11:58 | XMS_ITS | Encounter Summary ---
Author Organization [facility] Address [address] [place] [address] Care Team Providers Care Golf Teacher Name Role Phone Kami Olvera MD Primary Care Provider [phone] Jazzy Dunn RN Unavailable [phone] David House MD Unavailable [phone] Odette Lopez PA-C Unavailable [phone] Rubens Singh MD Unavailable [phone] Source Comments In the event this information is protected by the Federal Confidentiality of Alcohol and Drug AbusePatient Records regulations: The Federal rules restrict any use of the information to criminally investigate or prosecute any alcohol or drug abuse patient.[facility] Encounter Details Date Type Department Care Team (Late st Contact Info) Description 01/12/2021 Patient Msg Gastroenterology [address] [place] [address] [place] [address] [place] [address] RE: Appointment Request Social History [...] N ot on file 02/23/2020 Data from: https://www.neighborhoodatlas.[facility].edu/. Last address used for calculation Not [...] documented as of this encounter Care Teams Golf Teacher Relationship Specialty Start Date End Date Kami Olvera MD [address] [place] [address] PCP - General Family Medicine 02/01/17 Jazzy Dunn RN [address] [place] [address] Specialty Chick Room Supervisor Hematology/Oncology 07/27/21 04/30/23 David House MD [address] [place] [address] [place] [address] Physician Hematology/Oncology 07/27/21 Odette Lopez PA-C [address] [place] [address] [place] [address] Physician Bacteriologist Food Hematology/Oncology 07/27/21 Rubens Singh MD [address] [place] [address] Physician Hematology/Oncology 10/08/21 Fran [facility] Palliative Medicine Provider 08/30/21 documented as of this encounter
--- OUTSIDE RECORDS SUMMARY | 2024-12-16 11:58 | XMS_ITS | Encounter Summary ---
Author Organization [facility] Address [address] [place] [address] Phone Care Team Providers Care Senior Quality Analyst Name Role Phone Kami Olvera MD Primary Care Provider [phone] Encounter Details Date Type Department Care Team (Latest Contact Info) Description 12/05/2024 Travel Social History Tobacco Use Types Packs/Day Years Used Date Smoking Tobacco: Never Assessed Comments Unknown Sex and Gender Information Value Date Recorded Sex Assigned at Not on file Legal Sex Female 6:57 PM EST Gender Identity Not on file Sexual Orientation Not on file documented as of this encounter Functional Status * Question Answer Date of Assessment Author BP 141/90 12/05/2024 11:39 PM EDT Lavinia Chan PCNA Pulse 91 12/05/2024 11:39 PM EDT Lavinia Chan PCNA * Koo Fall Risk Question Answer Date of Assessment Author History of Falling, Immediat e or Within 3 Months 0 12/05/2024 1:45 PM EDT Nikolay Santos RN Secondary Diagnosis 0 12/05/2024 1:45 PM ED T Nikolay Santos RN Ambulatory Aid 0 12/05/2024 1:45 PM EDT Nikolay Walker RN Intravenous Therapy/Heparin Lock 20 12/06/19 1:45 PM EDT Nikolay Santos RN Gait/Transferring 0 12/05/2024 1:45 PM EDT Nikolay Santos RN Mental Status 0 12/05/2024 1:45 PM EDT Nikolay Brothers RN Koo Fall Risk Score 20 12/05/2024 1:45 PM EDT Nikolay Santos RN * Communicable Disease Screening Question Answer [...] to abuse/neglect? No 12/05/2024 3:10 PM EDT Fely Jenkins RN Are you or have you been threatened or abused physically, emotionally, or sexually by anyone? No 12/05/2024 3:10 PM EDT Dani Jenkins RN Has anyone ever threatened t o hurt your family or your pets? No 12/05/2024 3:10 PM EDT Fely Jenkins RN Does anyone try to keep you from having/contacting other friends or doing things outside your home? No 12/05/2024 3:10 PM EDT Dani Liriano RN Do you feel UNSAFE going jori k to the place where you are living? No 12/05/2024 3:10 PM NAYET Dani Liriano RN Do you feel anyone has explo ited or taken advantage of you financially or of your personal property? No 12/05/2024 3:10 PM EDT Dani Jenkins RN Abuse Screen Adult 12/05/2024 3:10 PM EDT Dani Liriano RN * Calculated C-SSRS Risk Score (Lifetime/Recent) Answer Date of Assessment Author No Risk Indicated 12/05/2024 1:45 PM EDT Nikolay Santos RN * Sevier Suicide Severity Rating Scale (Screener/Recent Self-Report) Question Answer Date of Assessment Author 1. Wish to be (Past 1 Month) No 025 1:45 PM Nikolay Rucker RN 2. Non-Specific Active Suici fuad Thoughts (Past 1 Month) No 12/05/2024 1:45 PM EDT Danielle, Joey as, RN 6. Suicidal Behavior (Lifetime) No 5 1:45 PM EDT Nikolay Santos, MORE documented as of this encounter Plan of Treatment Not on file documented as of this encounter Visit Diagnoses Not on filedocumented in this encounter Care Teams Senior Quality Analyst Relationship Specialty Start Date End Date Kami Olvera MD [address] [place] [address] PCP - General 03/20/99 documented as of this encounter
--- OUTSIDE RECORDS SUMMARY | 2024-12-16 11:58 | XMS_ITS | Encounter Summary ---
Author Organization [facility] Address [address] [place] [address] Care Team Providers Care Fisher Pot Name Role Phone Kami Olvera MD Primary Care Provider [phone] Jazzy Dunn RN Unavailable [phone] David House MD Unavailable [phone] Odette Lopez PA-C Unavailable [phone] Rubens Singh MD Unavailable [phone] Source Comments In the event this information is protected by the Federal Confidentiality of Alcohol and Drug AbusePatient Records regulations: The Federal rules restrict any use of the information to criminally investigate or prosecute any alcohol or drug abuse patient.[facility] Encounter Details Date Type Department Care Team (Late st Contact Info) Description 09/25/2020 Patient Msg General Surgery [address] [place] [address] Provider, Ccf FMLA Social History [...] N ot on file 02/23/2020 Data from: https://www.neighborhoodatlas.medicine.[facility].edu/. Last address used for calculation Not [...] documented as of this encounter Care Teams Fisher Pot Relationship Specialty Start Date End Date Kami Olvera MD [address] [place] [address] PCP - General Family Medicine 02/01/17 Jazzy Dunn RN [address] [place] [address] [place] [address] Specialty Financial Analyst Intern Hematology/Oncology 07/27/21 04/30/23 David House MD [address] [place] [address] [place] [address] Physician Hematology/Oncology 07/27/21 Odette Lopez PA-C [address] [place] [address] [place] [address] Physician Icu Manager Hematology/Oncology 07/27/21 Rubens Singh MD [address] [place] [address] [place] [address] Physician Hematology/Oncology 10/08/21 Fran [facility] Palliative Medicine Provider 08/30/21 documented as of this encounter
--- OUTSIDE RECORDS SUMMARY | 2024-12-16 11:58 | XMS_ITS | Encounter Summary ---
Author Organization [facility] Address [address] [place] [address] Care Team Providers Care Wind Turbine Performance Engineer Name Role Phone Kami Ovlera MD Primary Care Provider [phone] Jazzy Dunn RN Unavailable [phone] David House MD Unavailable [phone] Odette Lopez PA-C Unavailable [phone] Rubens Singh MD Unavailable [phone] Source Comments In the event this information is protected by the Federal Confidentiality of Alcohol and Drug AbusePatient Records regulations: The Federal rules restrict any use of the information to criminally investigate or prosecute any alcohol or drug abuse patient.[facility] Encounter Details Date Type Department Care Team (Late st Contact Info) Description 07/07/2021 Patient Msg General Surgery [address] [place] [address] Provider, Ccf 07/14/21 EGG Instructions [...] N ot on file 02/23/2020 Data from: https://www.neighborhoodatlas.medicine.[facility].edu/. Last address used for calculation Not [...] documented as of this encounter Care Teams Wind Turbine Performance Engineer Relationship Specialty Start Date End Date Kami Olvera MD [address] [facility] [address] PCP - General Family Medicine 02/01/17 Jazzy Dunn RN [address] [facility] [place] [address] Specialty Equity Analyst Hematology/Oncology 07/27/21 04/30/23 David House MD [address] [place] [address] [place] [address] Physician Hematology/Oncology 07/27/21 Odette Lopez PA-C [address] [place] [address] [place] [address] Physician Auto Driver Hematology/Oncology 07/27/21 Rubens Singh MD [address] [place], [place] [address] Physician Hematology/Oncology 10/08/21 Fran [facility] Palliative Medicine Provider 08/30/21 documented as of this encounter
--- OUTSIDE RECORDS SUMMARY | 2024-12-16 11:58 | XMS_ITS | Encounter Summary ---
Author Organization [facility] Address [address] [place] [address] Care Team Providers Care Rn Acute Name Role Phone JustoDevonte page Primary Care Provider Kami Olvera MD Primary Care Provider [phone] Jazzy Dunn RN Unavailable [phone] David House MD Unavailable [phone] Odette Lopez PA-C Unavailable [phone] Rubens Singh MD Unavailable [phone] Source Comments In the event this information is protected by the Federal Confidentiality of Alcohol and Drug AbusePatient Records regulations: The Federal rules restrict any use of the information to criminally investigate or prosecute any alcohol or drug abuse patient.[facility] Encounter Details Date Type Department Care Team (Late st Contact Info) Description 03/05/2015 Patient g Neurology [address] [place] [id number] Lidia Jones PA-C [address] [place] [address] RE: Appointment Cancellation Request Social History [...] documented as of this encounter Care Teams Rn Acute Relationship Specialty Start Date End Date Devonte Kemp DO PCP - General Family Medicine 05/03/13 01/31/17 Kami Olvera MD [address] [place] [address] PCP - General Family Medicine 02/01/17 Jazzy Dunn RN [address] [facility] [place] [address] Specialty Bottom Liner Hematology/Oncology 07/27/21 04/30/23 David House MD [address] [place] [address] [place] [address] Physician Hematology/Oncology 07/27/21 Odette Lopez PAPonchoC [address] [place] [address] [place] [address] Physician Landing Signal Officer Hematology/Oncology 07/27/21 Rubens Singh MD [address] [place] [address] [place] [address] Physician Hematology/Oncology 10/08/21 KrysMARVIN [facility] Palliative Medicine Provider 08/30/21 documented as of this encounter
--- OUTSIDE RECORDS SUMMARY | 2024-12-16 11:58 | XMS_ITS | Encounter Summary ---
Author Organization [facility] Address [facility] [place] [address] Care Team Providers Care Shellfish Processing Laborer Name Role Phone Kami Olvera MD Primary Care Provider [phone] Jazzy Dunn RN Unavailable [phone] David House MD Unavailable [phone] Odette Lopez PA-C Unavailable [phone] Rubens Singh MD Unavailable [phone] Source Comments In the event this information is protected by the Federal Confidentiality of Alcohol and Drug AbusePatient Records regulations: The Federal rules restrict any use of the information to criminally investigate or prosecute any alcohol or drug abuse patient.[facility] Encounter Details Date Type Department Care Team (Late st Contact Info) Description 06/04/2021 Patient Msg Head and Neck Kinsey [address] [place] [address] Provider, Ccf Appointment with Dr. Cavazos (07/14/21) [...] documented as of this encounter Care Teams Shellfish Processing Laborer Relationship Specialty Start Date End Date Kami Olvera MD [address] [facility] [place] [address] PCP - General Family Medicine 02/01/17 Jazzy Dunn RN [address] [facility] [place] [address] Specialty Digital Operations Analyst Hematology/Oncology 07/27/21 04/30/23 David House MD [address] [facility] [place] [address] Physician Hematology/Oncology 07/27/21 Odette Lopez PA-C [address] [facility] [place] [address] Physician Skiing Instructor Hematology/Oncology 07/27/21 Rubens Singh MD [address] [place] [address] Physician Hematology/Oncology 10/08/21 Fran [facility] Palliative Medicine Provider 08/30/21 documented as of this encounter
--- OUTSIDE RECORDS SUMMARY | 2024-12-16 11:58 | XMS_ITS | Encounter Summary ---
Author Organization [facility] Address [address] [place] [address] Care Team Providers Care Core Analysis Operator Name Role Phone Kami Olvera MD Primary Care Provider [phone] Jazzy Dunn RN Unavailable [phone] David House MD Unavailable [phone] Odette Lopez PA-C Unavailable [phone] Rubens Singh MD Unavailable [phone] Source Comments In the event this information is protected by the Federal Confidentiality of Alcohol and Drug AbusePatient Records regulations: The Federal rules restrict any use of the information to criminally investigate or prosecute any alcohol or drug abuse patient.[facility] Encounter Details Date Type Department Care Team (Late st Contact Info) Description 05/20/2021 Patient Msg Gastroenterology [address] [place] [id number] Provider, Ccf Appointment on 05/25/21 has been [...] N ot on file 02/23/2020 Data from: https://www.neighborhoodatlas.medicine.[facility].edu/. Last address used for calculation Not [...] documented as of this encounter Care Teams Core Analysis Operator Relationship Specialty Start Date End Date Kami Olvera MD [address] [place] [address] PCP - General Family Medicine 02/01/17 Jazzy Dunn RN [address] [facility] [address] Specialty Microchip Specialist Hematology/Oncology 07/27/21 04/30/23 David House MD [address] [facility] [place] [address] Physician Hematology/Oncology 07/27/21 Odette Lopez, PA-C [address] [facility] [place] [address] Physician Project Drilling Engineer Hematology/Oncology 07/27/21 Rubens Singh MD [address] [place] [address] Physician Hematology/Oncology 10/08/21 Fran [facility] Palliative Medicine Provider 08/30/21 documented as of this encounter
--- OUTSIDE RECORDS SUMMARY | 2024-12-16 11:58 | XMS_ITS | Encounter Summary ---
Author Organization [facility] Address [address] [place] [address] Phone Care Team Providers Care [employer] Name Role Phone Kami Olvera MD Primary Care Provider [phone] Encounter Details Date Type Department Care Team (Late st Contact Info) Description 12/07/2024 Documentation [facility] [address] [place] [phone] Eleanor Clifford RN Social History Tobacco Use Types Packs/Day Years [...] AM EDT Costa Chow RN Step 2: [place] Thick Pass 12/08/2024 9:35 AM E Costa Springer RN Step 3: [place] 12/08/2024 9:35 AM EDT Costa Pisano RN * Stroke/TIA Swallow Screen Question Answer Date of Assessment Author Step 1: Level of Consciousness Pass 12/08/2024 9:35 AM EDT Costa Chow RN Step 2: [place] Thick Pass 12/08/2024 9:35 AM E Costa [...] documented as of this encounter Care Teams [employer] Relationship Specialty Start Date End Date Kami Olvera MD [address] [place] [address] PCP - General 03/20/99 documented as of this encounter
--- OUTSIDE RECORDS SUMMARY | 2024-12-16 11:58 | XMS_ITS | Encounter Summary ---
Author Organization [facility] Address [address] [place] [address] Care Team Providers Care Journeyman Millwright Name Role Phone Kapil Patel DO Primary Care Provider [phone] Kapil Patel DO Unavailable [phone] Reason for Visit * Reason Onset Date Comments Med Refill 12/05/2024 Encounter Details Date Type Department Care Team (Late st Contact Info) Description 12/05/2024 Refill [facility] [address] [place] [address] Donna Oconnor NP Insomnia, psychophysiological Social History [...] week 11/12/2024 How often do you attend [facility] services? More than 4 times per year [...] Recorded Patient Health Questionnaire-2 Score 0 11/[facility]/2024 [facility] Answer Date [...] were you homeless or living in a prison (including now)? No 11/12/2024 Comments Unknown Sex [...] [facility] [address] [facility] [address] [facility] [address] [place] [address] Cole Phillip MD [address] [facility] [address] [place] [address] 04/30/2025 2:15 PM EST Office Visit [facility] [address] [place] [address] Reji De Luna DO [address] [place] [address] documented as of this encounter Visit Diagnoses Diagnosis Insomnia, psychophysiological documented in this encounter Care Teams Journeyman Millwright Relationship Specialty Start Date End Date Kapil Patel DO [address] [place] [address] PCP - General Family Medicine 10/08/24 Kapil Patel DO [address] [place] [address] PCP - [place] Commercial 10/24/24 documented as of this encounter
--- OUTSIDE RECORDS SUMMARY | 2024-12-16 11:58 | XMS_ITS | Encounter Summary ---
Author Organization [facility] Address [address] [place] [address] Care Team Providers Care Heel Seater Name Role Phone Kami Olvera MD Primary Care Provider [phone] Jazzy Dunn RN Unavailable [phone] David House MD Unavailable [phone] Odette Lopez PA-C Unavailable [phone] Rubens Singh MD Unavailable [phone] Source Comments In the event this information is protected by the Federal Confidentiality of Alcohol and Drug AbusePatient Records regulations: The Federal rules restrict any use of the information to criminally investigate or prosecute any alcohol or drug abuse patient.[facility] Encounter Details Date Type Department Care Team (Late st Contact Info) Description 05/24/2021 Get Medical Advice BMI [facility] [address] [place], [place] [id number] [place] [address] [address] [place], [place] [id number] Feeding Tube Social History Tobacco Use Types [...] N ot on file 02/23/2020 Data from: https://www.neighborhoodatlas.medicine.[facility].edu/. Last address used for calculation Not [...] Assessment Author No 05/23/2021 7:10 PM Miranda Alnozo RN documented as of this encounter Mental [...] documented as of this encounter Care Teams Heel Seater Relationship Specialty Start Date End Date Kami Olvera MD [address] [place] [address] PCP - General Family Medicine 02/01/17 Jazzy Dunn RN [address] [facility] [place] [place] [address] Specialty Lumber Stacker Hematology/Oncology 07/27/21 04/30/23 David House MD [address] [place] [address] Physician Hematology/Oncology 07/27/21 Odette Lopez PA-C [address] [place] [address] [place] [address] Physician Television Equipment Operator Hematology/Oncology 07/27/21 Rubens Singh MD [address] [place] [address] Physician Hematology/Oncology 10/08/21 Fran [facility] Palliative Medicine Provider 08/30/21 documented as of this encounter
--- OUTSIDE RECORDS SUMMARY | 2024-12-16 11:58 | XMS_ITS | Encounter Summary ---
Author Organization [facility] Address [address] [place] [address] Care Team Providers Care Air Pollution Compliance Inspector Name Role Phone Kami Olvera MD Primary Care Provider [phone] Jazzy Dunn RN Unavailable [phone] David House MD Unavailable [phone] Odette Lopez PA-C Unavailable [phone] Rubens Singh MD Unavailable [phone] Source Comments In the event this information is protected by the Federal Confidentiality of Alcohol and Drug AbusePatient Records regulations: The Federal rules restrict any use of the information to criminally investigate or prosecute any alcohol or drug abuse patient.[facility] Encounter Details Date Type Department Care Team (Late st Contact Info) Description 12/01/2020 Patient Msg General Surgery [address] [place] [address] Provider, Ccf EGD Social History [...] N ot on file 02/23/2020 Data from: https://www.neighborhoodatlas.medicine.[facility].edu/. Last address used for calculation [...] documented as of this encounter Care Teams Air Pollution Compliance Inspector Relationship Specialty Start Date End Date Kami Olvera MD [address] [place] [address] PCP - General Family Medicine 02/01/17 Jazzy Dunn RN [address] [place], [place] [address] Specialty Supervisor Lead Burning Hematology/Oncology 07/27/21 04/30/23 David House MD [address] [place] [address] Physician Hematology/Oncology 07/27/21 Odette Lopez PA-C [address] [place] [address] [place] [address] Physician Engineering Specialist Technician Hematology/Oncology 07/27/21 Rubens Singh MD [address] [place] [address] Physician Hematology/Oncology 10/08/21 Fran [facility] Palliative Medicine Provider 08/30/21 documented as of this encounter
--- OUTSIDE RECORDS SUMMARY | 2024-12-16 11:58 | XMS_ITS | Encounter Summary ---
Author Organization [facility] Address [address] [place] [address] Care Team Providers Care Base Remover Name Role Phone Kami Olvera MD Primary Care Provider [phone] Jazzy Dunn RN Unavailable [phone] David House MD Unavailable [phone] Odette Lopez PA-C Unavailable [phone] Rubens Singh MD Unavailable [phone] Source Comments In the event this information is protected by the Federal Confidentiality of Alcohol and Drug AbusePatient Records regulations: The Federal rules restrict any use of the information to criminally investigate or prosecute any alcohol or drug abuse patient.[facility] Encounter Details Date Type Department Care Team (Late st Contact Info) Description 07/12/2021 Patient Nutrition Therapy [address] [id number] Provider, Ccf After Visit Information Social History [...] N ot on file 02/23/2020 Data from: https://www.neighborhoodatlas.medicine.[facility].edu/. Last address used for calculation [...] documented as of this encounter Care Teams Base Remover Relationship Specialty Start Date End Date Kami Olvera MD [address] [facility] [place] [address] PCP - General Family Medicine 02/01/17 Jazzy Dunn RN [address] [facility] [place] [address] Specialty Pier Hand Hematology/Oncology 07/27/21 04/30/23 David House MD [address] [place] [address] [place] [address] Physician Hematology/Oncology 07/27/21 Odette Lopez PA-C [address] [facility] [place] [address] Physician Pillowcase Cleaner Hematology/Oncology 07/27/21 Rubens Singh MD [address] [place] [address] Physician Hematology/Oncology 10/08/21 Fran [facility] Palliative Medicine Provider 08/30/21 documented as of this encounter
--- OUTSIDE RECORDS SUMMARY | 2024-12-16 11:58 | XMS_ITS | Encounter Summary ---
Author Organization [facility] Address [address] [place] [address] Care Team Providers Care Upholstery Parts Sorter Name Role Phone JustoDevonte page Carlos Alberto RIVAS Primary Care Provider Kami Olvera MD Primary Care Provider [phone] Jazzy Dunn RN Unavailable [phone] David House MD Unavailable [phone] Odette Lopez PA-C Unavailable [phone] Rubens Singh MD Unavailable [phone] Source Comments In the event this information is protected by the Federal Confidentiality of Alcohol and Drug AbusePatient Records regulations: The Federal rules restrict any use of the information to criminally investigate or prosecute any alcohol or drug abuse patient.[facility] Encounter Details Date Type Department Care Team (Late st Contact Info) Description 12/25/2014 Patient Msg Medical Records [address] [place] [address] Provider, Ccf RE: Appointment Cancellation Request Social [...] as of this encounter Care Teams Upholstery Parts Sorter Relationship Specialty Start Date End Date Devonte Kemp DO PCP - General Family Medicine 05/03/13 01/31/17 Kami Olvera MD [address] [facility] [place] [address] PCP - General Family Medicine 02/01/17 Jazzy Dunn, RN [address] [facility] [place] [address] Specialty Color Strainer Hematology/Oncology 07/27/21 04/30/23 David House MD [address] [facility] [place] [address] Physician Hematology/Oncology 07/27/21 Odette Lopez, PA-C [address] [facility] [place] [address] Physician Bibliographic Services Specialist Hematology/Oncology 07/27/21 Rubens Singh MD [address] [facility] [place] [address] Physician Hematology/Oncology 10/08/21 Fran [facility] Palliative Medicine Provider 08/30/21 documented as of this encounter
--- OUTSIDE RECORDS SUMMARY | 2024-12-16 11:58 | XMS_ITS | Encounter Summary ---
Author Organization [facility] Address [address] [place] [address] Care Team Providers Care Identification Technician Name Role Phone Kami Olvera MD Primary Care Provider [phone] Jazzy Dunn RN Unavailable [phone] David House MD Unavailable [phone] Odette Lopez PA-C Unavailable [phone] Rubens Singh MD Unavailable [phone] Source Comments In the event this information is protected by the Federal Confidentiality of Alcohol and Drug AbusePatient Records regulations: The Federal rules restrict any use of the information to criminally investigate or prosecute any alcohol or drug abuse patient.[facility] Encounter Details Date Type Department Care Team (Late st Contact Info) Description 06/23/2021 Patient Msg Neurology [address] [place] [address] Kenia Lagos MD NO FORWARDING [...] documented as of this encounter Care Teams Identification Technician Relationship Specialty Start Date End Date Kami Olvera MD [address] [place] [address] PCP - General Family Medicine 02/01/17 Jazzy Dunn RN [address] [facility] [place] [address] Specialty Vet Assistant Hematology/Oncology 07/27/21 04/30/23 David House MD [address] [place] [address] [place] [address] Physician Hematology/Oncology 07/27/21 Odette Lopez PA-C [address] [place] [address] [place] [address] Physician Reclamation Engineer Hematology/Oncology 07/27/21 Rubens Singh MD [address] [place], [place] [address] Physician Hematology/Oncology 10/08/21 Fran [facility] Palliative Medicine Provider 08/30/21 documented as of this encounter
--- OUTSIDE RECORDS SUMMARY | 2024-12-16 11:58 | XMS_ITS | Encounter Summary ---
Author Organization [facility] Address [address] [place] [address] Care Team Providers Care Human Resources Operations Specialist Name Role Phone Kami Olvera MD Primary Care Provider [phone] Jazzy Dunn RN Unavailable [phone] David House MD Unavailable [phone] Odette Lopez PA-C Unavailable [phone] Rubens Singh MD Unavailable [phone] Source Comments In the event this information is protected by the Federal Confidentiality of Alcohol and Drug AbusePatient Records regulations: The Federal rules restrict any use of the information to criminally investigate or prosecute any alcohol or drug abuse patient.[facility] Encounter Details Date Type Department Care Team (Late st Contact Info) Description 06/28/2021 Get Medical Advice General Surgery [address] [place], [place] [phone] Kapil Mccauley MD [address] [place] [address] Work Release Social History Tobacco [...] N ot on file 02/23/2020 Data from: https://www.neighborhoodatlas.medicine.[facility].edu/. Last address used for calculation Not [...] documented as of this encounter Care Teams Human Resources Operations Specialist Relationship Specialty Start Date End Date Kami Olvera MD [address] [place] [address] PCP - General Family Medicine 02/01/17 Jazzy Dunn RN [address] [facility] [place] [address] Specialty Group Practice Pediatrician Hematology/Oncology 07/27/21 04/30/23 David House MD [address] [facility] [place] [address] Physician Hematology/Oncology 07/27/21 Odette Lopez, PAPonchoC [address] [place] [address] [place] [address] Physician Pocket Operator Hematology/Oncology 07/27/21 Rubens Snigh MD [address] [place] [address] [place] [address] Physician Hematology/Oncology 10/08/21 Fran [facility] Palliative Medicine Provider 08/30/21 documented as of this encounter
--- OUTSIDE RECORDS SUMMARY | 2024-12-16 11:59 | XMS_ITS | Encounter Summary ---
Author Organization [facility] Address [address] [facility] [place] [address] Care Team Providers Care Catalyst Operator Name Role Phone Kami Olvera MD Primary Care Provider [phone] PetKapil looney DO Primary Care Provider [phone] Kapil Patel DO Unavailable [phone] Monday, Paz COSMETOLOGY PROFESSOR Unavailable [phone] Encounter Details Date Type Department Care Team (Late st Contact Info) Description 09/28/2024 Results [facility] Family Medicine [address] [place] [address] Jessica Morris NP [address] [place] [address] TSH W/REFLEX TO FT4, US [...] 2:00 PM EST Office Visit [facility] [place] [facility] [address] [place] [address] Cole Phillip MD [address] [place] [address] 04/30/2025 2:15 PM EST Office Visit [facility] [address] [place] [address] Reji De Luna, DO [address] [place] [address] documented as of this encounter Visit Diagnoses Not on filedocumented in this encounter Care Teams Catalyst Operator Relationship Specialty Start Date End Date Kami Olvera MD [address] [place] [address] [place], [place] [address] PCP - General Family Medicine 07/26/22 10/07/24 Kapil Patel DO [address] [facility] [address] [place] [address] PCP - General Family Medicine 10/08/24 Kapil Patel DO [address] [facility] [address] [place] [address] [facility] 10/24/24Monday, FELISHA [place] [address] [place], [place] [address] Licensed Practical Nurse Family Medicine 11/25/2411/28 documented as of this encounter
--- OUTSIDE RECORDS SUMMARY | 2024-12-16 11:59 | XMS_ITS | Encounter Summary ---
Author Organization [facility] Address [address] [facility] [place] [address] Care Team Providers Care Mold Dumper Name Role Phone Kapil Patel DO Primary Care Provider [phone] Kapil Patel DO Unavailable [phone] Paz ANDERSONN Unavailable [phone] Encounter Details Date Type Department Care Team (Late st Contact Info) Description 11/19/2024 Abstract [facility] [address] [facility] [address] [place] [address] Kapil Patel, DO [address] [facility] [address] [place] [address] Social History Tobacco Use Types Packs/Day Years [...] How often do you attend [facility] services? More than 4 times per year 11/12/2024 Do you belong to any clubs o r organizations such as spiritism groups, unions, fraternal or athletic groups, or [...] Recorded Patient Health Questionnaire-2 Score 0 11/22/2024 [facility] - Occupational [...] the past 12 m [facility], were you homeless or living in a care home (including now)? No 11/12/2024 Comments Unknown [...] Neurology [address] [place] [address] Cole Phillip MD [address] [facility] [address] [place] [address] 04/30/2025 2:15 PM EST Office Visit [facility] [address] [place] [address] Reji De Luna, DO [address] [place] [address] documented as of this encounter Visit Diagnoses Not on filedocumented in this encounter Care Teams Mold Dumper Relationship Specialty Start Date End Date Kapil Patel DO [address] [place] [address] PCP - General Family Medicine 10/08/24 Kapil Patel DO [address] [place] [address] PCP - [place] [employer] 10/24/24Monday, FELISHA [place] [address] [place] [address] Licensed Practical Nurse Family Medicine 11/25/2411/28 documented as of this encounter
--- OUTSIDE RECORDS SUMMARY | 2024-12-16 11:59 | XMS_ITS | Encounter Summary ---
Author Organization [facility] Address [address] [place] [address] Care Team Providers Care Mainspring Fabrication Supervisor Name Role Phone Kami Olvera MD Primary Care Provider [phone] Kapil Patel DO Primary Care Provider + [phone] Kapil Patel DO Unavailable [phone] Monday, Paz BUSINESS SERVICES REPRESENTATIVE Unavailable [phone] Encounter Details Date Type Department Care Team (Late st Contact Info) Description 09/28/2024 Orders Only [facility] Family Medicine [address] [place] [address] Kami Olvera MD [address] [place] [address] Social History Tobacco Use Types [...] 2:00 PM EST Office Visit [facility] Neurology [address] [facility] [address] [place] [address] Cole Phillip MD [address] [place] [address] 04/30/2025 2:15 PM EST Office Visit [facility] [address] [place] [address] Reji De Luna, DO [address] [place] [address] documented as of this encounter Procedures Procedure Name Priority Date/Time Associated Diagnosis Comments HEMATOLOGY COMMENTS: Routine 09/28/2024 11:34 AM EDT documented in this encounter Results * Hematology Comments: (09/28/2024 11:34 AM EDT) Other Kami Olvera MD LAB BLOOD ORDERABLES Final Re sult documented in this encounter Visit Diagnoses Not on filedocumented in this encounter Care Teams Mainspring Fabrication Supervisor Relationship Specialty Start Date End Date Kami Olvera MD [address] [place] [address] PCP - General Family Medicine 07/26/22 10/07/24 Kapil Patel DO [address] [place] [address] PCP - General Family Medicine 10/08/24 Kapil Patel DO [address] [place] [address] [facility] 10/24/24Monday, FELISHA Mullen [address] [place] [address] Licensed Practical Nurse Family Medicine 11/25/2411/28 documented as of this encounter
--- OUTSIDE RECORDS SUMMARY | 2024-12-16 11:59 | XMS_ITS | Encounter Summary ---
Author Organization [facility] Address [address] [place] [address] Care Team Providers Care Swaging Machine Operator Name Role Phone Kami Olvera MD Primary Care Provider [phone] Kapil Patel DO Primary Care Provider + [phone] Kapil Patel DO Unavailable [phone] Monday, Paz BASE FILLER OPERATOR Unavailable [phone] Encounter Details Date Type Department Care [...] [facility] Neurology [address] [place] [address] Cole Phillip MD [address] [address] [place] [address] 04/30/2025 2:15 PM EST Office Visit [facility] [address] [place] [address] Reji De Luna, DO [address] [place] [address] documented as of this encounter Procedures Procedure [...] DATE OF EXAM: Oct 28 2022 9:03AM [facility] 0013 - CT NECK SOFT TISSUE W [...] amalgam. Parotid and submandibular spaces are normal. Cab Starter spaces appear normal. Infrahyoid Neck: Hypopharynx, larynx, [...] any questions regarding this interpretation, please call [phone]. If you are unable to reach us at the number above, please feel free to contact [facility] at [phone]. [id number]^ACN Procedure Note Radiology, Radiologist, - 10/28/2022 * * *Final Report* * * DATE OF EXAM: Oct 28 2022 9:03AM [facility] 0013 - CT NECK SOFT TISSUE W [...] amalgam. Parotid and submandibular spaces are normal. Cab Starter spaces appear normal. Infrahyoid Neck: Hypopharynx, larynx, [...] any questions regarding this interpretation, please call [phone]. If you are unable to reach us at the number above, please feel free to contact [facility] at [phone]. [id number]^SI^ACN us Generic External Data Provider [facility] Final Result documented in this encounter Visit Diagnoses Not on filedocumented in this encounter Care Teams Swaging Machine Operator Relationship Specialty Start Date End Date Kami Olvera MD [address] [place] [address] PCP - General Family Medicine 07/26/22 10/07/24 Kapil Patel DO [address] [facility] [address] [place] [address] PCP - General Family Medicine 10/08/24 Kapil Patel DO [address] [facility] [address] [place] [address] PCP - Amita Roque 10/24/24Monday, FELISHA [place]ullen [address] [facility] [address] [place] [address] Licensed Practical Nurse Family Medicine 11/25/2411/28 documented as of this encounter
--- OUTSIDE RECORDS SUMMARY | 2024-12-16 11:59 | XMS_ITS | Encounter Summary ---
Author Organization [facility] Address [facility] [place] [address] Care Team Providers Care Vp Legal Affairs Name Role Phone Kami Olvera MD Primary Care Provider [phone] Jazzy Dunn RN Unavailable [phone] David House MD Unavailable [phone] Odette Lopez PA-C Unavailable [phone] Rubens Singh MD Unavailable [phone] Source Comments In the event this information is protected by the Federal Confidentiality of Alcohol and Drug AbusePatient Records regulations: The Federal rules restrict any use of the information to criminally investigate or prosecute any alcohol or drug abuse patient.[facility] Encounter Details Date Type Department Care Team (Late st Contact Info) Description 07/29/2021 Lab Requisition [facility] Hospital Laboratory [facility] [place] [address] David House MD [address] [place] [address] [address] [place], [place] [id number] Person encountering health services to consult on [...] ot on file 02/23/2020 Data from: https://www.neighborhoodatlas.medicine.[facility].edu/. Last address used for calculation Not [...] EDT) Case Report Surgical Pathology Report Case: [id number] Authorizing Provider: David House MD Collected: 07/29/2021 02:15 PM Ordering Location: Hosp Lab Main Received: 07/29/2021 02:13 PM Pathologist: Sidney Garza V, MD, PhD Specimen: SLIDE(S), 17 SLIDES ([id number]) 09/08/2021 9:18 PM EDT [facility] FINAL DIAGNOSIS Materials from 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 - See comment. 09/08/2021 9:18 PM EDT [facility] at 2118 EDT Diagnosis Comment Histologic [...] from the referring institution are [facility]. The neoplastic cells are positive for CD30 and Pax5 (dim). They are negative for CD3, CD20, CD45. Chromogenic in-situ hybridization with probes for Shonna-Frank virus (EBV)-encoded small RNA (SURESH) has been performed at [facility] with appropriately staining controls. The neoplastic cells are negative. 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 Laboratory Developed Test (LDT) Disclaimer: Performance characteristics of immunohistochemical, immunofluorescent and chromogenic in-situ hybridization tests have been determined by the performing laboratory within [facility] s [facility] Pathology and Laboratory Medicine [place] ([facility], [facility], [facility] or [facility]) in a manner consistent with CLIA requirements. One or more of these tests have not been cleared or approved by the FDA. [facility] is regulated under CLIA as qualified to perform high-complexity testing. These tests are used for clinical purposes. They should not be regarded as investigational or for research. Positive and negative controls stain appropriately. 09/08/2021 9:18 PM EDT [facility] Performing Lab Diagnostic interpretation performed at [facility], [address] [place] [address] CLIA# [id number] Dietary Cook: Zachariah San M.D. 09/08/2021 9:18 PM EDT [facility] Blocks or Slides MICROSCOPE SLIDE / Unknown 07/29/2021 2:15 PM EDT 07/29/2021 2:13 PM EDT us David House MD SURGICAL PATHOLOGY Final Resu lt [facility] [address] [facility] [address] [place] [address], [place] documented in this encounter Visit Diagnoses Diagnosis Person encountering health services to consult on behalf of another person Other person consulting on behalf of another person documented in this encounter Additional Health Concerns Infection Onset Date Last Indicated Resolved Time COVID-19 Rule-Out 09/06/2021 09/06/2021 09/06/2021 6:38 AM EDT documented as of this encounter Care Teams Vp Legal Affairs Relationship Specialty Start Date End Date Kami Olvera MD [address] [place] [address] PCP - General Family Medicine 02/01/17 Jazzy Dunn RN [address] [place] [address] Specialty Cst Hematology/Oncology 07/27/21 04/30/23 David House MD [address] [place] [address] [place] [address] Physician Hematology/Oncology 07/27/21 Odette Lopez, PA-C [address] [place] [address] [place] [address] Physician Excel Vba Developer Hematology/Oncology 07/27/21 Rubens Singh MD [address] [place] [address] [place] [address] Physician Hematology/Oncology 10/08/21 Fran [facility] Palliative Medicine Provider 08/30/21 documented as of this encounter
--- OUTSIDE RECORDS SUMMARY | 2024-12-16 11:59 | XMS_ITS | Encounter Summary ---
Author Organization [facility] Address [address] [place] [address] Care Team Providers Care Pai Gow Dealer Name Role Phone Kapil Patel DO Primary Care Provider [phone] Kapil Patel DO Unavailable [phone], Paz ANDERSONN Unavailable [phone] Encounter Details Date Type Department Care Team (Late st Contact Info) Description 11/19/2024 Abstract [facility] [address] [facility] [place] [address] Kapil Patel, DO [address] [place] [address] Social History Tobacco Use Types Packs/Day Years [...] 11/12/2024 How often do you attend [facility] or islam services? More than 4 times per year 11/12/2024 Do you belong to any clubs o r organizations such as alevism groups, unions, fraternal or athletic groups, or [...] Recorded Patient Health Questionnaire-2 Score 0 11/22/2024 [facility] - [...] any time in the past 12 m [facility], were you homeless or living [...] Neurology [address] [place] [address] Cole Phillip MD [address] [facility] [address] [place] [address] 04/30/2025 2:15 PM EST Office Visit [facility] [address] [place] [address] Reji De Luna, DO [address] [place] [address] documented as of this encounter Visit Diagnoses Not on filedocumented in this encounter Care Teams Pai Gow Dealer Relationship Specialty Start Date End Date Kapil Patel DO [address] [place] [address] PCP - General Family Medicine 10/08/24 Kapil Patel DO [address] [place] [address] PCP - [place] [employer] 10/24/24Monday, FELISHA Mullen [address] [place] [address] Licensed Practical Nurse Family Medicine 11/25/2411/28 documented as of this encounter
--- OUTSIDE RECORDS SUMMARY | 2024-12-16 11:59 | XMS_ITS | Encounter Summary ---
Author Organization [facility] Address [address] [place] [address] Care Team Providers Care Music Video Director Name Role Phone Kami Olvera MD Primary Care Provider [phone] Kapil Patel DO Primary Care Provider + [phone] Kapil Patel DO Unavailable [phone] Monday, Paz SENIOR ORACLE APPLICATIONS DEVELOPER Unavailable [phone] Encounter Details Date Type Department Care Team (Late st Contact Info) Description 09/18/2024 Abstract [facility] [address] [place] [address] Pérez Deleon DPM [address] [facility] [address] [place] [address] Social History Tobacco Use Types [...] 2:00 PM EST Office Visit [facility] Neurology [address] [facility] [facility] [address] [place] [address] Cole Phillip MD [address] [facility] [address] [place] [address] 04/30/2025 2:15 PM EST Office Visit [facility] [address] [place] [address] Reji De Luna, DO [address] [place] [address] documented as of this encounter Visit Diagnoses Not on filedocumented in this encounter Care Teams Music Video Director Relationship Specialty Start Date End Date Kami Olvera MD [address] [place], [place] [address] PCP - General Family Medicine 07/26/22 10/07/24 Kapil Patel DO [address] [facility] [address] [place] [address] PCP - General Family Medicine 10/08/24 Kapil Patel DO [address] [facility] [place] [address] PCP - [facility] 10/24/24Monday, FELISHA Mullne [address] [place] [address] Licensed Practical Nurse Family Medicine 11/25/2411/28 documented as of this encounter
--- OUTSIDE RECORDS SUMMARY | 2024-12-16 11:59 | XMS_ITS | Encounter Summary ---
Author Organization [facility] Address [address] [place] [address] Phone Care Team Providers Care Support Representative Name Role Phone Kami Olvera MD Primary Care Provider [phone] Encounter Details Date Type Department Care Team (Late st Contact Info) Description 08/23/2021 Orders Only [facility] [address] [place] [address] Conversion, Onbase Social History Tobacco Use Types Packs/Day Years Used Date Smoking Tobacco: Never Assessed Comments Unknown Sex and Gender Information Value Date Recorded Sex Assigned at Not on file Legal Sex Female 6:57 PM EST Gender Identity Not on file Sexual Orientation Not on file documented as of this encounter Functional Status * BP Answer Date of Assessment Author 110/70 08/26/2021 12:57 PM EDT Conversi on, [employer] Touch[employer] Vitals * Pulse Answer Date of Assessment Author 97 08/26/2021 12:56 PM EDT Conversi on, [employer] Vitals * Little interest or pleasure in doing things Answer Date of Assessment Author Not at all 08/26/2021 12:56 PM EDT Conversi on, [employer] Vitals * Little interest or pleasure in doing [...] documented as of this encounter Care Teams Support Representative Relationship Specialty Start Date End Date Kami Olvera MD [address] [place] [address] PCP - General 03/20/99 documented as of this encounter
--- OUTSIDE RECORDS SUMMARY | 2024-12-16 11:59 | XMS_ITS | Encounter Summary ---
Author Organization [facility] Address [address] [place] [address] Care Team Providers Care Manufacturing Plant Technician Name Role Phone Kami Olvera MD Primary Care Provider [phone] Jazzy Dunn RN Unavailable [phone] David House MD Unavailable [phone] Odette Lopez PA-C Unavailable [phone] Rubens Singh MD Unavailable [phone] Source Comments In the event this information is protected by the Federal Confidentiality of Alcohol and Drug AbusePatient Records regulations: The Federal rules restrict any use of the information to criminally investigate or prosecute any alcohol or drug abuse patient.[facility] Encounter Details Date Type Department Care Team (Late st Contact Info) Description 08/17/2021 Patient Msg General Surgery [address] [place] [address] Sarah Juarez RN EGD Social [...] N ot on file 08/05/2021 Data from: https://www.neighborhoodatlas.medicine.[facility].edu/. Last address used for calculation [address] [...] as of this encounter Care Teams Manufacturing Plant Technician Relationship Specialty Start Date End Date Kami Olvera MD [address] [facility] [place] [place] [address] PCP - General Family Medicine 02/01/17 Jazzy Dunn RN [address] [facility] [place] [address] Specialty Line Painting Machine Operator Hematology/Oncology 07/27/21 04/30/23 David House MD [address] [place] [address] [place] [address] Physician Hematology/Oncology 07/27/21 Odette Lopez PA-C [address] [facility] [place] [address] Physician Clerical Clerk Hematology/Oncology 07/27/21 Rubens Singh MD [address] [place] [address] Physician Hematology/Oncology 10/08/21 Fran [facility] Palliative Medicine Provider 08/30/21 documented as of this encounter
--- OUTSIDE RECORDS SUMMARY | 2024-12-16 11:59 | XMS_ITS ---
Author Organization [facility] Address [address] [place] [address] Care Team Providers Care Electron Beam Photo Mask Technician Name Role Phone Kapil Patel DO Primary Care Provider [phone] Kapil Patel DO Unavailable [phone] Inpatient Discharge Transitional Care Management (TCM) Status:Identified (Enrolling) Start date:12/14/2024 Enrollment reason:Identified using hospital discharge data Overview Patient discharged from [facility] on 12[facility]. Please contact for hospital JAME and schedule follow-upappointment within 7-14 days. Continued Care and Services Coordination
--- OUTSIDE RECORDS SUMMARY | 2024-12-16 11:59 | XMS_ITS | Patient Health Record ---
Author Organization [facility] [place] Address [address] [place] [address] Care Team Providers Care Harbor Master Name Role Phone Taniya Rodriguez OD Primary Care Provider Asia faust Reason For Referral No Information Plan Of Treatment No Information Insurance Providers Payer Name Payer Address Payer Phone Subscriber Number Group Number Insured Name Patient Relationship to Insured Coverage Start Date Coverage End Date SELF PAY ON PATIENT DEMOGRAPHICS Regis Negro Self - patient is the insured 2
--- OUTSIDE RECORDS SUMMARY | 2024-12-16 11:59 | XMS_ITS | Encounter Summary ---
Author Organization [facility] Address [address] [place] [address] Care Team Providers Care Dump Worker Name Role Phone Kami Olvera MD Primary Care Provider [phone] Jazzy Dunn RN Unavailable [phone] David House MD Unavailable [phone] Odette Lopez PA-C Unavailable [phone] Rubens Singh MD Unavailable [phone] Source Comments In the event this information is protected by the Federal Confidentiality of Alcohol and Drug AbusePatient Records regulations: The Federal rules restrict any use of the information to criminally investigate or prosecute any alcohol or drug abuse patient.[facility] Encounter Details Date Type Department Care Team (Late st Contact Info) Description 08/09/2021 Patient Msg Nutrition Therapy [address] [place] [address] [place] [address] Provider, [facility] [place]: Tube Feeding Formula Update Social History Tobacco [...] N ot on file 08/05/2021 Data from: https://www.neighborhoodatlas.medicine.[facility].edu/. Last address used for calculation [address] [...] Assessment Author No 06/23/2021 1:25 PM EDT eSrgio, Sarah rodgers RN * Do you have [...] documented as of this encounter Care Teams Dump Worker Relationship Specialty Start Date End Date Kami Olvera MD [address] [facility] [place] [address] PCP - General Family Medicine 02/01/17 Jazzy Dunn RN [address] [place] [address] Specialty Pitching Coach Hematology/Oncology 07/27/21 04/30/23 David House MD [address] [place] [address] [place] [address] Physician Hematology/Oncology 07/27/21 Odette Lopez PA-C [address] [place] [address] [place] [address] Physician Leave Coordinator Hematology/Oncology 07/27/21 Rubens Singh MD [address] [place], [place] [address] Physician Hematology/Oncology 10/08/21 Fran [facility] Palliative Medicine Provider 08/30/21 documented as of this encounter
--- OUTSIDE RECORDS SUMMARY | 2024-12-16 11:59 | XMS_ITS | Encounter Summary ---
Author Organization [facility] Address [address] [place] [address] Care Team Providers Care Scrum Coach Name Role Phone Kami Olvera MD Primary Care Provider [phone] Jazzy Dunn RN Unavailable [phone] David House MD Unavailable [phone] Odette Lopez PA-C Unavailable [phone] Rubens Singh MD Unavailable [phone] Source Comments In the event this information is protected by the Federal Confidentiality of Alcohol and Drug AbusePatient Records regulations: The Federal rules restrict any use of the information to criminally investigate or prosecute any alcohol or drug abuse patient.[facility] Encounter Details Date Type Department Care Team (Late st Contact Info) Description 07/22/[address] [facility] [address] [place] [address] Provider, [facility] Sulfamethoxazole-trim ethoprim refill request [...] on filedocumented in this encounter Care Teams Scrum Coach Relationship Specialty Start Date End Date Kami Olvera MD [address] [facility] [address] PCP - General Family Medicine 02/01/17 Jazzy Dunn RN [address] [facility] [place] [address] Specialty Data Miner Hematology/Oncology 07/27/21 04/30/23 David House MD [facility] [place] [address] Physician Hematology/Oncology 07/27/21 Odette Lopez PA-C [address] [place] [address] Physician Tapping Machine Operator Automatic Hematology/Oncology 07/27/21 Rubens Singh MD [address] [place] [address] [place] [address] Physician Hematology/Oncology 10/08/21 Fran [facility] Palliative Medicine Provider 08/30/21 documented as of this encounter
--- OUTSIDE RECORDS SUMMARY | 2024-12-16 11:59 | XMS_ITS | Encounter Summary ---
Author Organization [facility] Address [address] [place] [address] Care Team Providers Care Manager Flight Name Role Phone Kami Olvera MD Primary Care Provider [phone] Kapil Patel DO Primary Care Provider + [phone] Kapil Patel DO Unavailable [phone] Monday, Paz CRIMINAL PSYCHOLOGIST Unavailable [phone] Encounter Details Date Type Department Care [...] 2:00 PM EST Office Visit [facility] [address] [place] [id number] Cole Phillip MD [address] [place] [address] 04/30/2025 2:15 PM EST Office Visit [facility] [address] [place] [id number] Reji De Luna, DO [address] [place] [address] documented as of this encounter Procedures Procedure [...] OF EXAM: Oct 28 2022 9:03AM [facility] 0539 - CT [...] CT scan report for the abdomen findings. Lead Section Supervisor (topogram) images: No additional findings. IMPRESSION: [...] any questions regarding this interpretation, please call [phone]. If you are unable to reach us at the number above, please feel free to contact [facility] at [phone]. [id number]^AGFA_IDC^SI^ACN Procedure Note Radiology, Radiologist, - 10/28/2022 * * *Final Report* * * DATE OF EXAM: Oct 28 2022 9:03AM [facility] 0539 - CT [...] CT scan report for the abdomen findings. Lead Section Supervisor (topogram) images: No additional findings. IMPRESSION: [...] any questions regarding this interpretation, please call [phone]. If you are unable to reach us at the number above, please feel free to contact [facility] at [phone]. [id number]^AGFA_IDC^SI^ACN us Generic External Data Provider IMG CT PROCEDURES Final Result documented in this encounter Visit Diagnoses Not on filedocumented in this encounter Care Teams Manager Flight Relationship Specialty Start Date End Date Kami Olvera MD [address] [place] [address] PCP - General Family Medicine 07/26/22 10/07/24 Kapil Patel DO [address] [facility] [address] [place] [address] PCP - General Family Medicine 10/08/24 Kapil Patel DO [address] [place] [address] PCP - [employer] 10/24/24Monday, FELISHA Mullen [address] [facility] [address] [place] [address] Licensed Practical Nurse Family Medicine 11/25/2411/28 documented as of this encounter
--- OUTSIDE RECORDS SUMMARY | 2024-12-16 11:59 | XMS_ITS | Encounter Summary ---
Author Organization [facility] Address [address] [address] Care Team Providers Care Management Accountant Name Role Phone Kami Olvera MD Primary Care Provider [phone] Kapil Patel DO Primary Care Provider + [phone] Kapil Patel DO Unavailable [phone] Monday, Paz RECORDER GRAVITY PROSPECTING Unavailable [phone] Encounter Details Date Type Department Care [...] 2:00 PM EST Office Visit [facility] [address] [place] [address] Cole Phillip MD [address] [place] [address] 04/30/2025 2:15 PM EST Office Visit [facility] [address] [place] [address] Reji De Luna W, DO [address] [place] [address] documented as of this encounter Procedures Procedure Name Priority Date/Time Associated Diagnosis Comments CT ABD/PEL W IVCON 04/28/2023 1: 15 PM EST documented in this encounter Results * CT ABD/PEL W IVCON (04/28/2023 1:15 PM EST) Anatomical Region Laterality Modality Other 04/28/2023 1:15 PM EST Narrative 04/30/2023 3:28 PM EST * * *Final Report* * * DATE OF EXAM: Apr 28 2023 1:15PM [facility] 0530 - CT ABD/PEL W IVCON / [...] chest CT performed will be reported separately. Ladies Suit Operator (topogram) images: No additional findings. IMPRESSION: [...] any questions regarding this interpretation, please call [phone]. If you are unable to reach us at the number above, please feel free to contact [facility] at [phone]. [id number]^AGFA_IDC^SI^ACN Procedure Note Radiology, Radiologist, - 04/30/2023 * * *Final Report* * * DATE OF EXAM: Apr 28 2023 1:15PM [facility] 0530 - CT ABD/PEL W IVCON / [...] chest CT performed will be reported separately. Ladies Suit Operator (topogram) images: No additional findings. IMPRESSION: [...] any questions regarding this interpretation, please call [phone]. If you are unable to reach us at the number above, please feel free to contact [facility] at [phone]. [id number]^AGFA_IDC^SI^ACN us Generic External Data Provider [facility] Final Result documented in this encounter Visit Diagnoses Not on filedocumented in this encounter Care Teams Management Accountant Relationship Specialty Start Date End Date Kami Olvera MD [address] [place] [address] PCP - General Family Medicine 07/26/22 10/07/24 Kapil Patel, DO [address] [place] [address] PCP - General Family Medicine 10/08/24 Kapil Patel DO [address] [place] [address] PCP - [facility] 10/24/24Monday, FELISHA Mullen [address] [facility] [address] [place] [address] Licensed Practical Nurse Family Medicine 11/25/2411/28 documented as of this encounter
--- OUTSIDE RECORDS SUMMARY | 2024-12-16 11:59 | XMS_ITS | Clinical Summary ---
Author Organization [facility] Address [address] 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 Tolerates dilaudid. Medications HYDROmorphone (Dilaudid) 2 mg tablet Take 1 tablet (2 mg) by mouth every 4 hours if needed for severe pain (7 - 10). Active venlafaxine 225 mg 24 hr tablet Take 1 tablet (225 mg) by mouth once daily. Take with food. 1 Active buPROPion SR (Wellbutrin SR) 100 mg 12 hr tablet Take 1 tablet (100 mg) by mouth 2 times a day. Active zolpidem (Ambien) 10 mg tablet Take 1 tablet (10 mg) by mouth as needed at bedtime for sleep. 5 Active linaCLOtide (Linzess) 72 mcg capsule Take 1 capsule (72 mcg) by mouth once daily in the morning. Take before meals. 5 11/23/19 26 Active Emgality Syringe 120 mg/mL prefilled syringe Inject under the skin every 30 (thirty) days. 1 Active ondansetron ODT (Zofran-ODT) 4 mg disintegrating tabletIndications:A bdominal pain, epigastric,Nausea Dissolve 1 tablet (4 mg) in the mouth every 8 hours if needed for nausea or vomiting for up to 7 days. 20 tablet 12/25/19 25 Active Active Problems Problem Noted Date Diagnosed Date Abdominal pain, epigastric 12/06/2024 Encounters Date Type Department Care Team Description 12/09/2024 Telephone [facility] Emergency Medicine [address] [place] [phone] Skyler Olson DO 12/07/2024 9:00 AM EDT Clinical Support [facility] Emergency Medicine [id number] [place] [phone] 12/07/[address] [phone] Eleanor Clifford RN 12/06/2024 6:45 PM EDT Clinical Support [facility] Emergency Medicine [address] [place] [phone] 12/05/2024 3:05 PM EDT - 12/09/2024 7:06 AM EDT Emergency [facility] Emergency Medicine [id number] [place] [phone] Kelsy Mchugh MD Martella, Anthony T, MD Taub, MD Nereida Oconnor Laura L, DO McFarland, Adam, MD Pope, Sara, DO Hughes, Robert M, DO Noble, Vicki E, MD Faryar, John Junior MD MPH Cira Mack MD Lareau, Cj Carrera MD Abdominal pain, epigastric (Primary Dx); Nausea; Hypokalemia Discharge Disposition: Home 12/05/2024 Travel from Last 3 Months Social History Tobacco Use Types Packs/Day Years [...] Mass Index 21.93 12/05/2024 1:44 PM EDT Plan of Treatment Health Maintenance Due Date Last Done Comments HIV Screening 1994 Lipid Panel 1994 Yearly Adult Physical 1994 COVID-19 Vaccine (#1) 1999 Hepatitis C Screening 01/02/2012 Pneumococcal Vaccine: Pediatrics and At-Risk Adult Patients (1 of 2 - PCV) 2013 Zoster Vaccines (1 of 2) 2013 12/06/2010, 09/17 Cervical Cancer Screening 2015 HPV/Cotest 2015 Pap Smear 2015 DTaP/Tdap/Td Vaccines (7 - Td or Tdap) 10/15/2018 10/15/2008, 06/23/1999, 10/09/1995, Additional history exists Influenza Vaccine (#1) 2024 Hepatitis B Vaccines Completed 1994, 1994, 1994 HIB Vaccines Completed 10/09/1995, 0 03/1994, 1994, Additional history exists IPV Vaccines Completed 06/23/1999, 0 03/1994, 1994, Additional history exists MMR Vaccines Completed 06/23/1999, 01/16/1995 Meningococcal Vaccine Completed 12/06/2010, 009 HPV Vaccines Completed 08/19/2011, 02/18, 12/06/2010, Additional history exists Hepatitis A Vaccines Aged Out No long er eligible based on patient's age to complete this topic Rotavirus Vaccines Aged Out No longer eligible based on patient's age to complete this topic Procedures Procedure Name Priority Date/Time Associated Diagnosis Comments COMPREHENSIVE METABOLIC PANEL STAT 12/08/2024 5:32 AM EDT CBC STAT 12/08/2024 5:32 AM EDT ECG 12-LEAD STAT 12/07/2024 8:57 AM EDT Procedure Note - 12/07/2024 8:57 AM EDTThis note is in progress. Sinus rhythm with marked sinus arrhythmia Rightward axis Borderline ECG When compared with ECG of 06-DEC-2024 18:30, No significant change was found COMPREHENSIVE METABOLIC PANEL STAT 12/07/2024 5:12 AM EDT CBC STAT 12/07/2024 5:12 AM EDT ECG 12-LEAD [...] , URINE STAT 12/05/2024 3:58 PM EDT URINALYSIS MICROSCOPIC WITH REFLEX CULTURE STAT 12/05/2024 3:52 PM EDT EXTRA URINE PURDY TUBE STAT 12/05/2024 3:52 PM EDT URINALYSIS WITH REFLEX MICROSCOPIC AND CULTURE STAT 12/05/2024 3:52 PM EDT URINALYSIS WITH REFLEX MICROSCOPIC AND CULTURE STAT 12/05/2024 3:52 PM EDT MAGNESIUM Add-On 12/05/2024 1:58 PM EDT LIPASE STAT 12/05/2024 1:58 PM EDT COMPREHENSIVE METABOLIC PANEL STAT 12/05/2024 1:58 PM EDT CBC WITH AUTO DIFFERENTIAL STAT 12/05/2024 1:58 PM EDT from Last 3 Months Results * CBC (12/08/2024 5:32 AM EDT) Only the most recent of3 resultswithin the time period is included. WBC 5.8 4.4 - 11.3 x10*3/uL LAB HEMATOLOGY METHOD 12/08/2024 6:43 AM EDT [facility] nRBC 0.0 0.0 - 0.0 /100 WBCs LAB HEMATOLOGY METHOD 12/08/2024 6:43 AM EDT [facility] RBC 4.57 4.00 - 5.20 x10*6/uL LAB HEMATOLOGY METHOD 12/08/2024 6:43 AM EDT [facility] Hemoglobin 12.5 12.0 - 16.0 g/dL LAB HEMATOLOGY METHOD 12/08/2024 6:43 AM EDT [facility] Hematocrit 36.5 36.0 - 46.0 % LAB HEMATOLOGY METHOD 12/08/2024 6:43 AM EDT [facility] MCV 80 80 - 100 fL LAB HEMATOLOGY METHOD 12/08/2024 6:43 AM EDT [facility] MCH 27.4 26.0 - 34.0 pg LAB HEMATOLOGY METHOD 12/08/2024 6:43 AM EDT [facility] MCHC 34.2 32.0 - 36.0 g/dL LAB HEMATOLOGY METHOD 12/08/2024 6:43 AM EDT [facility] RDW 11.9 11.5 - 14.5 % LAB HEMATOLOGY METHOD 12/08/2024 6:43 AM EDT [facility] Platelets 221 150 - 450 x10*3/uL LAB HEMATOLOGY METHOD 12/08/2024 6:43 AM EDT [facility] Blood Venous blood specimen / Unknown Venipuncture / Unknown 12/08/2024 5:32 AM EDT 12/08/2024 6:27 AM EDT us Horacio Fuentes MD LAB BLOOD ORDERABLES Final Res ult [facility] [address] [facility] [id number] [place], [place] [phone] * (ABNORMAL) Comprehensive metabolic panel (12/08/2024 5:32 AM EDT) Only the most recent of4 resultswithin the time period is included. [facility] Glucose 82 74 - 99 mg/dL LAB CHEMISTRY METHOD 12/08/2024 7:00 AM EDT [facility] Sodium 140 136 - 145 mmol/L LAB CHEMISTRY METHOD 12/08/2024 7:00 AM EDT [facility] Potassium 3.0(L) 3.5 - 5.3 mmol/L LAB CHEMISTRY METHOD 12/08/2024 7:00 AM EDT [facility] Chloride 104 98 - 107 mmol/L LAB CHEMISTRY METHOD 12/08/2024 7:00 AM EDT [facility] Bicarbonate 27 21 - 32 mmol/L LAB CHEMISTRY METHOD 12/08/2024 7:00 AM EDT [facility] Anion Gap 12 10 - 20 mmol/L LAB CHEMISTRY METHOD 12/08/2024 7:00 AM EDT [facility] Urea Nitrogen 14 6 - 23 mg/dL LAB CHEMISTRY METHOD 12/08/2024 7:00 AM EDT [facility] Creatinine 0.60 0.50 - 1.05 mg/dL LAB CHEMISTRY METHOD 12/08/2024 7:00 AM EDT [facility] eGFR >90 >60 mL/min/1. 73m*2 LAB CHEMISTRY METHOD 12/08/2024 7:00 AM EDT [facility] Comment: Calculations of estimated GFR are performed using the 2020 CKD-EPI Study Refit equation without the race variable for the IDMS-Traceable creatinine methods. https://jasn.asnjournals.org/content//ASN.0428197766 Calcium 8.8 8.6 - 10.6 mg/dL LAB CHEMISTRY METHOD 12/08/2024 7:00 AM EDT [facility] Albumin 4.3 3.4 - 5.0 g/dL LAB CHEMISTRY METHOD 12/08/2024 7:00 AM EDT [facility] Alkaline Phosphatase 57 33 - 110 U/L LAB CHEMISTRY METHOD 12/08/2024 7:00 AM EDT [facility] Total Protein 6.7 6.4 - 8.2 g/dL LAB CHEMISTRY METHOD 12/08/2024 7:00 AM EDT [facility] AST 10 9 - 39 U/L LAB CHEMISTRY METHOD 12/08/2024 7:00 AM EDT [facility] Bilirubin, Total 0.9 0.0 - 1.2 mg/dL LAB CHEMISTRY METHOD 12/08/2024 7:00 AM EDT [facility] ALT 10 7 - 45 U/L LAB CHEMISTRY METHOD 12/08/2024 7:00 AM EDT [facility] Comment:Patients treated wit h Sulfasalazine may generate falsely decreased results for ALT. Blood Venous blood specimen / Unknown Venipuncture / Unknown 12/08/2024 5:32 AM EDT 12/08/2024 6:27 AM EDT us Horacio Fuentes MD LAB BLOOD ORDERABLES Final Res ult [facility] [address] [facility] [address] [place] [address] * Sars-CoV-2 and Influenza A/B PCR (12/06/2024 5:22 PM EDT) Flu A Result Not Detected Not Detected X_PERT XPRESS SARS-COV2 _CEPHEID_ EUA 12/06/2024 6:40 PM EDT [facility] Flu B Result Not Detected Not Detected X_PERT XPRESS SARS-COV2 _CEPHEID_ EUA 12/06/2024 6:40 PM EDT [facility] Coronavirus 2019, PCR Not Detected Not Detected X_PERT XPRESS SARS-COV2 _CEPHEID_ EUA 12/06/2024 6:40 PM EDT [facility] Swab Nasopharyngeal swab / Unknown 12/06/2024 5:22 PM EDT 12/06/2024 5:43 PM EDT Narrative [facility] - 12/06/2024 6:40 PM EDT This assay is an FDA-cleared, in vitro diagnostic nucleic acid amplification test for the qualitative detection and differentiation of SARS CoV-2/ Influenza A/B from nasopharyngeal specimens collected from individuals with signs and symptoms of respiratory tract infections, and has been validated for use at [facility]. Negative results do not preclude COVID-19/ Influenza A/B infections and should not be used as the sole basis for diagnosis, treatment, or other management decisions. Testing for SARS CoV-2 is recommended only for patients who meet current clinical and/or epidemiological criteria defined by federal, state, or local public health directives. Horacio Fuentes MD LAB MOLECULAR DIAGNOSTICS ORDE RABLES Final Result Performing Organization Address [facility] Co de Phone Number [address] [phone] * Magnesium (12/06/2024 5:19 PM EDT) Only the most recent of2 resultswithin the time period is included. Magnesium 2.13 1.60 - 2.40 mg/dL LAB CHEMISTRY METHOD 12/06/2024 6:13 PM EDT [facility] Blood Venous blood specimen / Unknown Venipuncture / Unknown 12/06/2024 5:19 PM EDT 12/06/2024 5:45 PM EDT Horacio Fuentes MD LAB BLOOD ORDERABLES Final Res ult Performing Organization Address City/[facility]/ZIP Co de Phone Number [facility] [address] [place], [place] [phone] * (ABNORMAL) Drug Screen, Urine (12/06/2024 8:03 AM EDT) [facility] Amphetamine Screen, Urine Presumptive Negative Presumptive Negative LAB CHEMISTRY METHOD 9:35 AM [facility] Comment: CUTOFF LEVEL: 500 NG/ML Cross-reactivity has been reported with high concentrations of the following drugs: buproprion, chloroquine, chlorpromazine, ephedrine, mephentermine, fenfluramine, phentermine, phenylpropanolamine, pseudoephedrine, and propranolol. Barbiturate Screen, Urine Presumptive Positive(A) Presumptive Negative LAB CHEMISTRY METHOD 9:35 AM [facility] Comment:CUTOFF LEVEL: 200 NG /ML Benzodiazepines Screen, Urine Presumptive Negative Presumptive Negative LAB CHEMISTRY METHOD 9:35 AM [facility] Comment:CUTOFF LEVEL: 200 NG /ML Cannabinoid Screen, Urine Presumptive Negative Presumptive Negative LAB CHEMISTRY METHOD 9:35 AM [facility] Comment:CUTOFF LEVEL: 50 NG/ ML Cocaine Metabolite Screen, Urine Presumptive Negative Presumptive Negative LAB CHEMISTRY METHOD 9:35 AM [facility] Comment:CUTOFF LEVEL: 150 NG /ML Fentanyl Screen, Urine Presumptive Negative Presumptive Negative LAB CHEMISTRY METHOD 9:35 AM [facility] Comment:CUTOFF LEVEL: 5 NG/M L Opiate Screen, Urine Presumptive Positive(A) Presumptive Negative LAB CHEMISTRY METHOD 9:35 AM [facility] Comment: CUTOFF LEVEL: 300 NG/ML The opiate screen does not detect fentanyl, meperidine, or tramadol. Oxycodone is not consistently detected (refer to Oxycodone Screen, Urine result). Oxycodone Screen, Urine Presumptive Negative Presumptive Negative LAB CHEMISTRY METHOD 9:35 AM [facility] Comment: CUTOFF LEVEL: 100 NG/ML This test will accurately detect both oxycodone and oxymorphone. PCP Screen, Urine Presumptive Negative Presumptive Negative LAB CHEMISTRY METHOD 9:35 AM [facility] Comment: CUTOFF LEVEL: 25 NG/ML Cross-reactivity has been reported with dextromethorphan. Methadone Screen, Urine Presumptive Negative Presumptive Negative LAB CHEMISTRY METHOD 9:35 AM EDT [facility] Comment: CUTOFF LEVEL: 150 NG/ML The metabolite H-vdmol-kkrzmjgttozctn (LAAM) is not detected by this method in concentrations that would be found in the urine of patients on LAAM therapy. Urine Urine specimen / Unknown 12/06/2024 8:03 AM EDT 12/06/2024 8:59 AM EDT Narrative [facility] - 12/06/2024 9:35 AM EDT Drug screen results are presumptive and should not be used to assess compliance with prescribed medication. Contact the performing [facility] laboratory to add-on definitive confirmatory testing [...] be directed to the laboratory medical directors. Reji Hidalgo MD LAB URINE ORDERABLES Final Result [facility] [phone] * CT abdomen pelvis w IV contrast [...] Espana MD. This study was interpreted at [facility], [place], [place]. MACRO: None Signed by: Fransisco Mora 12/05/2024 7:07 PM Dictation workstation: [id number] [facility] 12/05/2024 7:07 PM EDT Interpreted By: Fransisco Mora and Liu Scott STUDY: CT ABDOMEN PELVIS W IV CONTRAST; 12/05/2024 5:22 pm INDICATION: Signs/Symptoms:Abdominal pain. COMPARISON: Right upper quadrant ultrasound 12/05/2024 ACCESSION NUMBER(S): [id number] ORDERING CLINICIAN: FABRIZIO PATEL TECHNIQUE: CT of [...] Right upper quadrant ultrasound 12/05/2024 ACCESSION NUMBER(S): [id number] ORDERING CLINICIAN: FABRIZIO PATEL TECHNIQUE: CT of [...] [place] MD. [facility] [place] [place] MACRO: None Signed by: Fransisco Mora 12/05/2024 7:07 PM Dictation workstation: [id number] us Fabrizio Patel DO IMG CT PROCEDURES [...] MD, PGY-3 this study was interpreted at [place], [place]. MACRO: None Signed by: Osbaldo Ta 12/05/2024 5:29 PM Dictation workstation: [id number] Narrative 12/05/2024 5:29 PM EDT Interpreted By: Osbaldo Ta, and Arcelia Amin STUDY: US RIGHT UPPER QUADRANT; 12/05/2024 4:42 pm INDICATION: Signs/Symptoms:RUQ pain. COMPARISON: None. ACCESSION NUMBER(S): [id number] ORDERING CLINICIAN: FABRIZIO PATEL TECHNIQUE: Multiple images [...] MD - 12/05/2024 Interpreted By: Osbaldo Ta, and Arcelia Amin STUDY: US RIGHT UPPER QUADRANT; 12/05/2024 4:42 pm INDICATION: Signs/Symptoms:RUQ pain. COMPARISON: None. ACCESSION NUMBER(S): [id number] ORDERING CLINICIAN: FABRIZIO PATEL TECHNIQUE: Multiple images [...] MD, PGY-3 this study was interpreted at [facility], [place], [place]. MACRO: None Signed by: Osbaldo Ta 12/05/2024 5:29 PM Dictation workstation: [id number] us Fabrizio Patel DO IMG US PROCEDURES Final Result * POCT , urine (12/05/2024 3:58 PM EDT) Preg Test, Ur Negative Negative Urine 12/05/2024 3:58 PM EDT us Fabrizio Patel DO POINT OF CARE TEST ENTER/EDIT O RDERABLES Final Result * Extra Urine Purdy Tube (12/05/2024 3:52 PM EDT) Extra Tube 12/06/2024 8:2 5 AM EDT [facility] Urine Urine specimen / Unknown 12/05/2024 3:52 PM EDT 12/05/2024 4:05 PM EDT Fabrizio Patel LAB URINE ORDERABLES Final Resu lt Performing Organization Address [facility] de Phone Number [facility] [address] [place] [phone] * (ABNORMAL) Urinalysis Microscopic (12/05/2024 3:52 PM EDT) WBC, Urine 1-5 1-5, NONE /HPF 12/05/2024 4:15 PM EDT [facility] RBC, Urine >20(A) NONE, 1-2, 3-5 /HPF 12/05/2024 4:15 PM EDT [facility] Squamous Epithelial Cells, Urine 1-9 (SPARSE) Reference range not established. /HPF 12/05/2024 4:15 PM EDT [facility] Urine Urine specimen / Unknown 12/05/2024 3:52 PM EDT 12/05/2024 4:05 PM EDT Fabrizio Patel LAB URINE ORDERABLES Final Resu lt Performing Organization Address [facility] Co de Phone Number [facility] [address] [place] [phone] * (ABNORMAL) Urinalysis with Reflex Culture (12/05/2024 3:52 PM EDT) Color, Urine Yellow Light-Yello w, Yellow, Dark-Yellow 12/05/2024 4:15 PM EDT [facility] Appearance, Urine Clear Clear 025 4:15 PM EDT [facility] Specific [place], Urine 1.034 1.005 - 1.035 12/05/2024 4:15 PM EDT [facility] pH, Urine 5.5 5.0, 5.5, 6.0, 6.5, 7.0, 7.5, 8.0 12/05/2024 4:15 PM EDT [facility] Protein, Urine 30 (1+)(A) NEGATIVE, 10 (TRACE), 20 (TRACE) mg/dL 12/05/2024 4:15 PM EDT [facility] Glucose, Urine Normal Normal mg/dL 12/05/2024 4:15 PM EDT [facility] Blood, Urine 1.0 (3+)(A) NEGATIVE mg/dL 12/05/2024 4:15 PM EDT [facility] Ketones, Urine 100 (3+)(A) NEGATIVE mg/dL 12/05/2024 4:15 PM EDT [facility] Bilirubin, Urine NEGATIVE NEGATIVE mg/dL 12/05/2024 4:15 PM EDT [facility] Urobilinogen, Urine 2 (1+)(A) Normal mg/dL 12/05/2024 4:15 PM EDT [facility] Comment: Due to a manufacturing issue, [...] Urine NEGATIVE NEGATIVE 12/05/2024 4:15 PM EDT [facility] Leukocyte Esterase, Urine NEGATIVE NEGATIVE 12/05/2024 4:15 PM EDT [facility] Urine Urine specimen / Unknown 12/05/2024 3:52 PM EDT 12/05/2024 4:05 PM EDT us Fabrizio Patel DO LAB URINE ORDERABLES Final Resu lt [facility] [address] [facility] [id number] [place], [place] [phone] * CBC and Auto Differential (12/05/2024 1:58 PM EDT) WBC 8.2 4.4 - 11.3 x10*3/uL LAB HEMATOLOGY METHOD 12/05/2024 3:07 PM EDT [facility] nRBC 0.0 0.0 - 0.0 /100 WBCs LAB HEMATOLOGY METHOD 12/05/2024 3:07 PM EDT [facility] RBC 4.84 4.00 - 5.20 x10*6/uL LAB HEMATOLOGY METHOD 12/05/2024 3:07 PM EDT [facility] Hemoglobin 13.6 12.0 - 16.0 g/dL LAB HEMATOLOGY METHOD 12/05/2024 3:07 PM EDT [facility] Hematocrit 39.1 36.0 - 46.0 % LAB HEMATOLOGY METHOD 12/05/2024 3:07 PM EDT [facility] MCV 81 80 - 100 fL LAB HEMATOLOGY METHOD 12/05/2024 3:07 PM EDT [facility] MCH 28.1 26.0 - 34.0 pg LAB HEMATOLOGY METHOD 12/05/2024 3:07 PM EDT [facility] MCHC 34.8 32.0 - 36.0 g/dL LAB HEMATOLOGY METHOD 12/05/2024 3:07 PM EDT [facility] RDW 11.9 11.5 - 14.5 % LAB HEMATOLOGY METHOD 12/05/2024 3:07 PM EDT [facility] Platelets 243 150 - 450 x10*3/uL LAB HEMATOLOGY METHOD 12/05/2024 3:07 PM EDT [facility] Neutrophils % 72.3 40.0 - 80.0 % LAB HEMATOLOGY METHOD 12/05/2024 3:07 PM EDT [facility] Immature Granulocytes %, Automated 0.2 0.0 - 0.9 % LAB HEMATOLOGY METHOD 12/05/2024 3:07 PM EDT [facility] Comment:Immature Granulocyte Count (IG) includes promyelocytes, myelocytes and metamyelocytes but does not include bands. Percent differential counts (%) should be interpreted in the context of the absolute cell counts (cells/UL). Lymphocytes % 18.3 13.0 - 44.0 % LAB HEMATOLOGY METHOD 12/05/2024 3:07 PM EDT [facility] Monocytes % 8.4 2.0 - 10.0 % LAB HEMATOLOGY METHOD 12/05/2024 3:07 PM EDT [facility] Eosinophils % 0.2 0.0 - 6.0 % LAB HEMATOLOGY METHOD 12/05/2024 3:07 PM EDT [facility] Basophils % 0.6 0.0 - 2.0 % LAB HEMATOLOGY METHOD 12/05/2024 3:07 PM EDT [facility] Neutrophils Absolute 5.93 1.20 - 7.70 x10*3/uL LAB HEMATOLOGY METHOD 12/05/2024 3:07 PM EDT [facility] Comment:Percent differential counts (%) should be interpreted in the context of the absolute cell counts (cells/uL). Immature Granulocytes Absolute, Automated 0.02 0.00 - 0.70 x10*3/uL LAB HEMATOLOGY METHOD 12/05/2024 3:07 PM EDT [facility] Lymphocytes Absolute 1.50 1.20 - 4.80 x10*3/uL LAB HEMATOLOGY METHOD 12/05/2024 3:07 PM EDT [facility] Monocytes Absolute 0.69 0.10 - 1.00 x10*3/uL LAB HEMATOLOGY METHOD 12/05/2024 3:07 PM EDT [facility] Eosinophils Absolute 0.02 0.00 - 0.70 x10*3/uL LAB HEMATOLOGY METHOD 12/05/2024 3:07 PM EDT [facility] Basophils Absolute 0.05 0.00 - 0.10 x10*3/uL LAB HEMATOLOGY METHOD 12/05/2024 3:07 PM EDT [facility] Blood Venous blood specimen / Unknown Venipuncture / Unknown 12/05/2024 1:58 PM EDT 12/05/2024 3:00 PM EDT us Tramaine Fuentes MD LAB BLOOD ORDERABLES Final Result [facility] [id number] [place] [id number] [place], [place] [phone] * Lipase (12/05/2024 1:58 PM EDT) [facility] Lipase 12 9 - 82 U/L LAB CHEMISTRY METHOD 12/05/2024 3:35 PM EDT [facility] Blood Venous blood specimen / Unknown Venipuncture / Unknown 12/05/2024 1:58 PM EDT 12/05/2024 2:59 PM EDT Narrative [facility] - 12/05/2024 3:35 PM EDT Venipuncture immediately after or during the administration of Metamizole may lead to falsely low results. Testing should be performed immediately prior to Metamizole dosing. 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
--- OUTSIDE RECORDS SUMMARY | 2024-12-16 11:59 | XMS_ITS | Encounter Summary ---
Author Organization [facility] Address [address] [place] [address] Care Team Providers Care Demolition Expert Name Role Phone Kami Olvera MD Primary Care Provider [phone] Kapil Patel DO Primary Care Provider + [phone] Kapil Patel DO Unavailable [phone] Monday, Paz DRAFTER APPRENTICE Unavailable [phone] Encounter Details Date Type Department Care Team (Late st Contact Info) Description 09/27/2024 Abstract [facility] [address] [place] [address] Pérez Deleon DPM 3006 [facility] 5 [place] [address] Social History Tobacco Use Types [...] 2:00 PM EST Office Visit [facility] Neurology [address] [facility] [address] [place] [address] Cole Phillip MD 5800 [facility] 111 [place] [address] 04/30/2025 2:15 PM EST Office Visit [facility] Ot[facility] [address] [place] [address] Reji De Luna, DO [address] [place] [address] documented as of this encounter Visit Diagnoses Not on filedocumented in this encounter Care Teams Demolition Expert Relationship Specialty Start Date End Date Kami Olvera MD [address] [place], [place] [address] PCP - General Family Medicine 07/26/22 10/07/24 Kapil Patel DO [address] [facility] [address] [place] [address] PCP - General Family Medicine 10/08/24 Kapil Patel DO [address] [facility] [address] PCP - [facility] 10/24/24Monday, FELISHA Mullen [address] [place] [address] Licensed Practical Nurse Family Medicine 11/25/2411/28 documented as of this encounter
--- OUTSIDE RECORDS SUMMARY | 2024-12-16 11:59 | XMS_ITS | Encounter Summary ---
Author Organization [facility] Address [address] [place] [address] Care Team Providers Care Locomotive Observer Name Role Phone JustoDevonte page Primary Care Provider Kami Olvera MD Primary Care Provider [phone] Jazzy Dunn RN Unavailable [phone] David House MD Unavailable [phone] Odette Lopez PA-C Unavailable [phone] Rubens Singh MD Unavailable [phone] Source Comments In the event this information is protected by the Federal Confidentiality of Alcohol and Drug AbusePatient Records regulations: The Federal rules restrict any use of the information to criminally investigate or prosecute any alcohol or drug abuse patient.[facility] Encounter Details Date Type Department Care Team (Late st Contact Info) Description 10/10/2014 Get Medical Advice Neurology [address] [place] [address] Lidia Jones PA-C [address] [place] [address] RE: Visit Follow Up Question [...] documented as of this encounter Care Teams Locomotive Observer Relationship Specialty Start Date End Date Devonte Kemp DO PCP - General Family Medicine 05/03/13 01/31/17 Kami Olvera MD [address] [place] [address] PCP - General Family Medicine 02/01/17 Jazzy Dunn RN [address] [facility] [place] [address] Specialty Manager Embalmer Funeral Director Hematology/Oncology 07/27/21 04/30/23 David House MD [address] [place], [place] [address] [facility] [place] [address] Physician Hematology/Oncology 07/27/21 Odette Lopez, PA-C [address] [facility] [place] [address] Physician Restaurant Area Manager Hematology/Oncology 07/27/21 Rubens Singh MD [address] [facility] [place] [address] Physician Hematology/Oncology 10/08/21 KrysMARVIN [facility] Palliative Medicine Provider 08/30/21 documented as of this encounter
--- OUTSIDE RECORDS SUMMARY | 2024-12-16 11:59 | XMS_ITS | Encounter Summary ---
Author Organization [facility] Address [address] [place] [address] Care Team Providers Care Tear Down Matcher Name Role Phone JustoDevonte page Primary Care Provider Kami Olvera MD Primary Care Provider [phone] Jazzy Dunn RN Unavailable [phone] David House MD Unavailable [phone] Odette Lopez PA-C Unavailable [phone] Rubens Singh MD Unavailable [phone] Source Comments In the event this information is protected by the Federal Confidentiality of Alcohol and Drug AbusePatient Records regulations: The Federal rules restrict any use of the information to criminally investigate or prosecute any alcohol or drug abuse patient.[facility] Encounter Details Date Type Department Care Team (Late st Contact Info) Description 10/19/2014 Get Medical Advice Neurology [address] [place] [id number] Lidia Jones PA-C [address] [place] [address] RE: Upcoming Appointment Question Social [...] documented as of this encounter Care Teams Tear Down Matcher Relationship Specialty Start Date End Date Devonte Kemp DO PCP - General Family Medicine 05/03/13 01/31/17 Kami Olvera MD [address] [place] [address] PCP - General Family Medicine 02/01/17 Jazzy Dunn RN [address] [facility] [place] [address] Specialty User Experience Researcher Hematology/Oncology 07/27/21 04/30/23 David House MD [address] [place], [place] [address] [facility] [place] [address] Physician Hematology/Oncology 07/27/21 Odette Lopez, PA-C [address] [facility] [place] [address] Physician Finishing Trimmer Hematology/Oncology 07/27/21 Rubens Singh MD [address] [facility] [place] [address] Physician Hematology/Oncology 10/08/21 KrysMARVIN [facility] Palliative Medicine Provider 08/30/21 documented as of this encounter
--- OUTSIDE RECORDS SUMMARY | 2024-12-16 11:59 | XMS_ITS | Encounter Summary ---
Author Organization [facility] Address [address] [place] [address] Care Team Providers Care Veterinary Toxicologist Name Role Phone Kami Olvera MD Primary Care Provider [phone] Jazzy Dunn RN Unavailable [phone] David House MD Unavailable [phone] Odette Lopez PA-C Unavailable [phone] Rubens Singh MD Unavailable [phone] Source Comments In the event this information is protected by the Federal Confidentiality of Alcohol and Drug AbusePatient Records regulations: The Federal rules restrict any use of the information to criminally investigate or prosecute any alcohol or drug abuse patient.[facility] Encounter Details Date Type Department Care Team (Late st Contact Info) Description 02/17/2022 [place] [address] Provider, Ccf Schedule Imaging Follow Up Social [...] N ot on file 08/05/2021 Data from: https://www.neighborhoodatlas.medicine.[facility].edu/. Last address used for calculation [address] [...] on filedocumented in this encounter Care Teams Veterinary Toxicologist Relationship Specialty Start Date End Date Kami Olvera MD [address] [place] [address] PCP - General Family Medicine 02/01/17 Jazzy Dunn RN [address] [facility] [place] [address] Specialty Base Brander Hematology/Oncology 07/27/21 04/30/23 David House MD [address] [facility] [place] [address] Physician Hematology/Oncology 07/27/21 Odette Lopez PA-C [address] [place] [address] [place] [address] Physician Log Buncher Hematology/Oncology 07/27/21 Rubens Singh MD [address] [place] [address] [place] [address] Physician Hematology/Oncology 10/08/21 Fran [facility] Palliative Medicine Provider 08/30/21 documented as of this encounter
--- OUTSIDE RECORDS SUMMARY | 2024-12-16 11:59 | XMS_ITS | Encounter Summary ---
Author Organization [facility] Address [address] [place] [address] Care Team Providers Care Diet Assistant Name Role Phone Kami Olvera MD Primary Care Provider [phone] Kapil Patel DO Primary Care Provider + [phone] Kapil Paetl DO Unavailable [phone] Monday, Paz BALE PILER Unavailable [phone] Encounter Details Date Type Department Care [...] 2:00 PM EST Office Visit [facility] Neurology [address] [facility] [address] [facility] [address] [place] [address] Cole Phillip MD [address] [facility] [address] [place] [address] 04/30/2025 2:15 PM EST Office Visit [facility] Otolaryngology [address] [place] [address] Reji De Luna, DO [address] [place] [address] documented as of this encounter Procedures Procedure [...] chest CT performed will be reported separately. Furnace Attendant (topogram) images: No additional findings. IMPRESSION: 1. [...] any questions regarding this interpretation, please call [phone]. If you are unable to reach us at the number above, please feel free to contact [facility] at [phone]. [id number]^[email or web address]^SI^ACN Procedure Note Radiology, Radiologist, - 10/28/2022 * [...] chest CT performed will be reported separately. Furnace Attendant (topogram) images: No additional findings. IMPRESSION: 1. [...] any questions regarding this interpretation, please call [phone]. If you are unable to reach us at the number above, please feel free to contact [facility] at [phone]. [id number]^AGFA_IDC^SI^ACN us Generic External Data Provider [facility] Final Result documented in this encounter Visit Diagnoses Not on filedocumented in this encounter Care Teams Diet Assistant Relationship Specialty Start Date End Date Kami Olvera MD [address] [place] [address] PCP - General Family Medicine 07/26/22 10/07/24 Kapil Patel DO [address] [address] PCP - General Family Medicine 10/08/24 Kapil Patel DO [address] [facility] [address] [place] [address] PCP - Amita Roque 10/24/24Monday, FELISHA Mullen [address] [facility] [address] [place] [address] Licensed Practical Nurse Family Medicine 11/25/2411/28 documented as of this encounter
--- OUTSIDE RECORDS SUMMARY | 2024-12-16 11:59 | XMS_ITS | Encounter Summary ---
Author Organization [facility] Address [address] [place] [address] Care Team Providers Care Wallpaper Scraper Name Role Phone Kami Olvera MD Primary Care Provider [phone] Jazzy Dunn RN Unavailable [phone] David House MD Unavailable [phone] Odette oLpez PA-C Unavailable [phone] Rubens Singh MD Unavailable [phone] Source Comments In the event this [...] Anesthesia [address] [place] [address] Rafaela Roman PA-C [address] [place] [address] Preoperative Instructions Social History Tobacco [...] No 04/26/2019 Area Deprivation Index Answer Date Juna rded National Score (1-100), lower number is lower ri sk Not on file 02/23/2020 State Score (1-10), lower number is lower risk N ot on file 02/23/2020 Data from: https://www.neighborhoodatlas.medicine.[facility].edu/. Last address used for calculation Not on [...] documented as of this encounter Care Teams Wallpaper Scraper Relationship Specialty Start Date End Date Kami Olvera MD [address] [place] [address] PCP - General Family Medicine 02/01/17 Jazzy Dunn RN [address] [place] [address] [place] [address] Specialty Behavioral Therapist Hematology/Oncology 07/27/21 04/30/23 David House MD [address] [place] [address] [place] [address] Physician Hematology/Oncology 07/27/21 Odette Lopez PA-C [address] [place] [address] [place] [address] Physician Hand Chain Maker Hematology/Oncology 07/27/21 Rubens Singh MD [address] [place] [address] Physician Hematology/Oncology 10/08/21 [facility] Palliative Medicine Provider 08/30/21 documented as of this encounter
--- OUTSIDE RECORDS SUMMARY | 2024-12-16 11:59 | XMS_ITS | Encounter Summary ---
Author Organization [facility] Address [address] [place] [address] [place] [address] Care Team Providers Care Teacher Citizenship Name Role Phone RenaShaina looneyarleen Alfred DO Primary Care Provider [phone] Kapil Patel DO Unavailable [phone] Monday, Paz TYPE MAPPER Unavailable [phone] Encounter Details Date Type Department Care Team (Late st Contact Info) Description 11/04/2024 Abstract [facility] [address] [place] [address] Kami Olvera MD 6[address] [place], [place] [id number] Social History Tobacco Use Types Packs/Day Years [...] 2:00 PM EST Office Visit [facility]IE [facility] [facility] Neurology [address] [facility] 310 [place] [address] Cole Phillip MD [address] [facility] 111 [place] [address] 04/30/2025 2:15 PM EST Office Visit [facility] [place] [facility] [address] [place] [address] Reji De Luna, DO [address] [place] [address] documented as of this encounter Visit Diagnoses Not on filedocumented in this encounter Care Teams Teacher Citizenship Relationship Specialty Start Date End Date Kapil Patel DO [address] [place] [address] PCP - General Family Medicine 10/08/24 Kapil Patel DO [address] [place] [address] [facility] - [facility] 10/24/24Monday, FELISHA Mullen [address] [facility] [address] [place] [address] Licensed Practical Nurse Family Medicine 11/25/2411/28 documented as of this encounter
--- OUTSIDE RECORDS SUMMARY | 2024-12-16 11:59 | XMS_ITS | Encounter Summary ---
Author Organization [facility] Address [address] [place] [address] Care Team Providers Care Bun Machine Operator Name Role Phone Kami Olvera MD Primary Care Provider [phone] Jazzy Dunn RN Unavailable [phone] David House MD Unavailable [phone] Odette Lopez PA-C Unavailable [phone] Rubens Singh MD Unavailable [phone] Source Comments In the event this information is protected by the Federal Confidentiality of Alcohol and Drug AbusePatient Records regulations: The Federal rules restrict any use of the information to criminally investigate or prosecute any alcohol or drug abuse patient.[facility] Encounter Details Date Type Department Care Team (Late st Contact Info) Description 12/28/2020 Get Medical Advice BMI [facility] [address] [address] [place], [place] [phone] [place] [address] [address] [place], [place] [address] RE: Non-Urgent Medical Question Social History Tobacco [...] on file 02/23/2020 Data from: https://www.neighborhoodatlas.medicine.[facility].edu/. Last address used for calculation Not [...] documented as of this encounter Care Teams Bun Machine Operator Relationship Specialty Start Date End Date Kami Olvera MD [address] [place] [address] PCP - General Family Medicine 02/01/17 Jazzy Dunn RN [address] [place] [address] [place] [address] Specialty Assembly Machine Feeder Hematology/Oncology 07/27/21 04/30/23 David House MD [address] [place] [address] [place] [address] Physician Hematology/Oncology 07/27/21 Odette Lopez PAPonchoC [address] [place] [address] [place] [address] Physician Potato Seed Cutter Hematology/Oncology 07/27/21 Rubens Singh MD [address] [place] [address] [place] [address] Physician Hematology/Oncology 10/08/21 [facility] Palliative Medicine Provider 08/30/21 documented as of this encounter
--- OUTSIDE RECORDS SUMMARY | 2024-12-16 11:59 | XMS_ITS | Encounter Summary ---
Author Organization [facility] Address [address] [place] [address] Phone Care Team Providers Care Public Health Specialist Name Role Phone Kami Olvera MD Primary Care Provider [phone] Encounter Details Date Type Department Care Team (Late st Contact Info) Description 11/28/2021 Orders Only [facility] [address] [place] [address] Conversion, Onbase Social History Tobacco Use Types [...] documented as of this encounter Care Teams Public Health Specialist Relationship Specialty Start Date End Date Kami Olvera MD [address] [place] [address] PCP - General 03/20/99 documented as of this encounter
--- OUTSIDE RECORDS SUMMARY | 2024-12-16 11:59 | XMS_ITS | Encounter Summary ---
Author Organization [facility] Address [address] [facility] [place] [address] Care Team Providers Care Acid Regenerator Name Role Phone Kami Olvera MD Primary Care Provider [phone] Kapil Patel DO Primary Care Provider + [phone] Kapil Patel DO Unavailable [phone] Monday, Paz POWER PLANT INSPECTOR Unavailable [phone] Encounter Details Date Type Department Care [...] 2:00 PM EST Office Visit [facility]IE [facility] [address] [facility] [address] [place] [address] Cole Phillip MD [address] [facility] [address] [place] [address] 04/30/2025 2:15 PM EST Office Visit L[facility]LIE [facility] Otolaryngology [address] [place] [address] Reji De Luna W, DO [address] [place] [address] documented as of this encounter Procedures Procedure [...] DATE OF EXAM: Apr 28 2023 1:15PM [facility] 0539 - CT CHEST W [...] was performed and will be reported separately. Survey Workers Supervisor (topogram) images: No additional findings. IMPRESSION: [...] any questions regarding this interpretation, please call [phone]. If you are unable to reach us at the number above, please feel free to contact [facility] at [phone]. [id number]^AGFA_IDC^SI^ACN Procedure Note Radiology, Radiologist, - 04/30/2023 * * *Final Report* * * DATE OF EXAM: Apr 28 2023 1:15PM [facility] 0539 - CT CHEST W [...] was performed and will be reported separately. Survey Workers Supervisor (topogram) images: No additional findings. IMPRESSION: [...] any questions regarding this interpretation, please call [phone]. If you are unable to reach us at the number above, please feel free to contact [facility] at [phone]. [id number]^AGFA_IDC^SI^ACN us Generic External Data Provider IMG CT PROCEDURES Final Result documented in this encounter Visit Diagnoses Not on filedocumented in this encounter Care Teams Acid Regenerator Relationship Specialty Start Date End Date Kami Olvera MD [address] [place] [address] PCP - General Family Medicine 07/26/22 10/07/24 Kapil Patel, [address] [place] [address] PCP - General Family Medicine 10/08/24 Kapil Patel DO [address] [place] [address] PCP - [facility] 10/24/24Monday, FELISHA Mullen [address] [facility] [address] [place] [address] Licensed Practical Nurse Family Medicine 11/25/2411/28 documented as of this encounter
--- OUTSIDE RECORDS SUMMARY | 2024-12-16 11:59 | XMS_ITS | Encounter Summary ---
Author Organization [facility] Address [address] [place] [address] Care Team Providers Care Pizza Hut Team Member Name Role Phone Kami Olvera MD Primary Care Provider [phone] Kapil Patel DO Primary Care Provider + [phone] Kapil Patel DO Unavailable [phone] Monday, Paz CLOTH BALER Unavailable [phone] Encounter Details Date Type Department Care Team (Late Contact Info) Description 11/14/2022 Abstract [facility] [address] [place] [phone] Cole Phillip MD [address] [place] [address] Social History Tobacco Use Types Packs/Day Years [...] Description 04/29/2025 2:00 PM EST Office Visit [facility] Neurology [address] [facility] [address] [place] [address] Cole Phillip MD [address] [place] [address] 04/30/2025 2:15 PM EST Office Visit [facility] [address] [place] [address] Reji De Luna, DO [address] [place] [address] documented as of this encounter Visit Diagnoses Not on filedocumented in this encounter Care Teams Pizza Hut Team Member Relationship Specialty Start Date End Date Kami Olvera MD [address] [place], [place] [address] PCP - General Family Medicine 07/26/22 10/07/24 Kapil Patel DO [address] [facility] [address] [place] [address] PCP - General Family Medicine 10/08/24 Kapil Patel DO [address] [facility] [address] [place] [address] [facility] 10/24/24Monday, FELISHA Mullen [address] [facility] [address] [place], [place] [address] Licensed Practical Nurse Family Medicine 11/25/2411/28 documented as of this encounter
--- OUTSIDE RECORDS SUMMARY | 2024-12-16 11:59 | XMS_ITS | Encounter Summary ---
Author Organization [facility] Address [address] [place] [address] Care Team Providers Care Gas Pump Attendant Name Role Phone Kami Olvera MD Primary Care Provider [phone] Jazzy Dunn RN Unavailable [phone] David House MD Unavailable [phone] Odette Lopez PA-C Unavailable [phone] Rubens Singh MD Unavailable [phone] Source Comments In the event this information is protected by the Federal Confidentiality of Alcohol and Drug AbusePatient Records regulations: The Federal rules restrict any use of the information to criminally investigate or prosecute any alcohol or drug abuse patient.[facility] Encounter Details Date Type Department Care Team (Late st Contact Info) Description 07/29/2021 Patient Msg Nutrition Therapy [address] [place] [address] [place] [address] Provider, Ccf Tube Feeding Social History [...] N ot on file 02/23/2020 Data from: https://www.neighborhoodatlas.medicine.[facility].edu/. Last address used for [...] documented as of this encounter Care Teams Gas Pump Attendant Relationship Specialty Start Date End Date Kami Olvera MD [address] [facility] [facility] [place] [address] PCP - General Family Medicine 02/01/17 Jazzy Dunn RN [address] [place] [address] Specialty Supervisor Wood Crew Hematology/Oncology 07/27/21 04/30/23 David House MD [address] [place] [address] [place] [address] Physician Hematology/Oncology 07/27/21 Odette Lopez PA-C [address] [facility] [place] [address] Physician Local Sales Associate Hematology/Oncology 07/27/21 Rubens Singh MD [address] [place] [address] Physician Hematology/Oncology 10/08/21 [facility] Palliative Medicine Provider 08/30/21 documented as of this encounter
--- OUTSIDE RECORDS SUMMARY | 2024-12-16 11:59 | XMS_ITS | Encounter Summary ---
Author Organization [facility] Address [address] [place] [address] Care Team Providers Care Bedspring Assembler Name Role Phone Kami Olvera MD Primary Care Provider [phone] Jazzy Dunn RN Unavailable [phone] David House MD Unavailable [phone] Odette Lopez PA-C Unavailable [phone] Rubens Singh MD Unavailable [phone] Source Comments In the event this information is protected by the Federal Confidentiality of Alcohol and Drug AbusePatient Records regulations: The Federal rules restrict any use of the information to criminally investigate or prosecute any alcohol or drug abuse patient.[facility] Encounter Details Date Type Department Care Team (Late st Contact Info) Description 08/10/2021 Get Medical Advice General Surgery [address] [place] [address] Barrera Whittington PA-C [address] [place] [address] Feeding Tube Leakage Social History [...] N ot on file 08/05/2021 Data from: https://www.neighborhoodatlas.medicine.[facility].edu/. Last address used for calculation [...] documented as of this encounter Care Teams Bedspring Assembler Relationship Specialty Start Date End Date Kami Olvera MD [address] [place] [address] PCP - General Family Medicine 02/01/17 Jazzy Dunn RN [address] [facility] [place] [address] Specialty Melt Helper Hematology/Oncology 07/27/21 04/30/23 David House MD [address] [place] [address] Physician Hematology/Oncology 07/27/21 Odette Lopez PA-C [address] [facility] [place] [address] Physician Dough Maker Hematology/Oncology 07/27/21 Rubens Singh MD 417 [facility] [place] [address] Physician Hematology/Oncology 10/08/21 Fran [facility] Palliative Medicine Provider 08/30/21 documented as of this encounter
--- OUTSIDE RECORDS SUMMARY | 2024-12-16 11:59 | XMS_ITS | Encounter Summary ---
Author Organization [facility] Address [address] [place] [address] Care Team Providers Care Regional Environmental Manager Name Role Phone Kapli Patel DO Primary Care Provider +- [phone] Kapil Patel DO Unavailable [phone], Paz ANDERSONN Unavailable [phone] Encounter Details Date Type Department Care Team (Late st Contact Info) Description 11/18/2024 Abstract [facility] [address] [place] [address] Kapil Patel, DO [address] [place] [address] Social History Tobacco Use Types Packs/Day Years [...] do you attend [facility] or yarsani services? More than 4 times per year 11/12/2024 Do you belong to any clubs o r organizations such as mormonism groups, unions, fraternal or athletic groups, or [...] Recorded Patient Health Questionnaire-2 Score 0 11/22/2024 [facility] Occupat ional Health - Occupational Stress [...] any time in the past 12 m [facility], were you homeless or living in a [...] 2:00 PM EST Office Visit [facility] [place] [address] [facility] [address] [facility] [address] [place] [address] Cole Phillip MD [address] [facility] [address] [place] [address] 04/30/2025 2:15 PM EST Office Visit [facility] Ot[facility] [address] [place] [address] Reji De Luna DO [address] [place] [address] documented as of this encounter Visit Diagnoses Not on filedocumented in this encounter Care Teams Regional Environmental Manager Relationship Specialty Start Date End Date Kapil Patel, DO [address] [place] [address] PCP - General Family Medicine 10/08/24 Kapil Patel DO [address] [place] [address] PCP - Amita Roque 10/24/24Monday, FELISHA Mullen [address] [facility] [address] [place] [address] Licensed Practical Nurse Family Medicine 11/25/2411/28 documented as of this encounter
--- OUTSIDE RECORDS SUMMARY | 2024-12-16 11:59 | XMS_ITS | Encounter Summary ---
Author Organization [facility] Address [address] [place] [address] Care Team Providers Care Commercial Technician Name Role Phone Kami Olvera MD Primary Care Provider [phone] Kapil Patel DO Primary Care Provider + [phone] Kapil Patel DO Unavailable [phone] Monday, Paz CHILDREN'S SERVICE SUPERVISOR Unavailable [phone] Encounter Details Date Type Department Care Team (Late st Contact Info) Description 10/02/2024 Abstract [facility] [address] [facility] 120 [place] [address] Pérez Deleon DPM 300[address] [facility] [address] [place] [address] Social History Tobacco Use Types [...] 2:00 PM EST Office Visit [facility] [address] [facility] 310 [place] [address] Cole Phillip MD [address] [facility] 111 [place] [address] 04/30/2025 2:15 PM EST Office Visit [facility] [place] [facility] [address] [facility] [place] [address] Reji De Luna, DO [address] [place] [address] documented as of this encounter Visit Diagnoses Not on filedocumented in this encounter Care Teams Commercial Technician Relationship Specialty Start Date End Date Kami Olvera MD [address] [facility], [place] [address] PCP - General Family Medicine 07/26/22 10/07/24 Kapil Patel DO [address] [place] [address] PCP - General Family Medicine 10/08/24 Kapil Patel DO [address] [facility] [address] [facility] 10/24/24Monday, FELISHA Mullen [address] [place] [address] Licensed Practical Nurse Family Medicine 11/25/2411/28 documented as of this encounter
--- OUTSIDE RECORDS SUMMARY | 2024-12-16 11:59 | XMS_ITS | Encounter Summary ---
Author Organization [facility] Address [address] [place] [address] Care Team Providers Care Insole And Outsole Preparer Name Role Phone Kapil Patel DO Primary Care Provider +- [phone] Kapil Patel DO Unavailable [phone], Paz ANDERSONN Unavailable [phone] Encounter Details Date Type Department Care Team (Late st Contact Info) Description 11/13/2024 Abstract [facility] [address] [place] [address] Kapil Patel, DO [address] [place] [address] Social History Tobacco Use Types Packs/Day Years [...] week 11/12/2024 How often do you attend [facility] or sikhism services? More than 4 times per year 11/12/2024 Do you belong to any clubs o r organizations such as yazidi groups, unions, fraternal or athletic groups, or [...] Recorded Patient Health Questionnaire-2 Score 0 11/14/2024 [facility] of Occupat ional Health - Occupational [...] time in the past 12 m [facility], were you homeless or living [...] at all 11/14/2024 8:54 AM EDT Cesilia aMtthew MA Feeling down, depressed, or hopeless Not [...] Neurology [address] [place] [address] Cole Phillip MD [address] [facility] [address] [place], [place] [address] 04/30/2025 2:15 PM EST Office Visit [facility] [place] [facility] [address] [place] [address] Reji De Luna, DO [address] [place] [address] documented as of this encounter Visit Diagnoses Not on filedocumented in this encounter Care Teams Insole And Outsole Preparer Relationship Specialty Start Date End Date Kapil Patel, DO [address] [place] [address] PCP - General Family Medicine 10/08/24 Kapil Patel, DO [address] [place] [address] PCP - Amita Roque 10/24/24Monday, FELISHA Mullen [address] [place] [address] Licensed Practical Nurse Family Medicine 11/25/2411/28 documented as of this encounter
--- OUTSIDE RECORDS SUMMARY | 2024-12-16 11:59 | XMS_ITS | Encounter Summary ---
Author Organization [facility] Address [address] [place] [address] Care Team Providers Care Lard Renderer Name Role Phone Kami Olvera MD Primary Care Provider [phone] Jazzy Dunn RN Unavailable [phone] David House MD Unavailable [phone] Odette Lopez PA-C Unavailable [phone] Rubens Singh MD Unavailable [phone] Source Comments In the event this information is protected by the Federal Confidentiality of Alcohol and Drug AbusePatient Records regulations: The Federal rules restrict any use of the information to criminally investigate or prosecute any alcohol or drug abuse patient.[facility] Encounter Details Date Type Department Care Team (Late st Contact Info) Description 08/12/2021 Patient Msg General Surgery [address] [facility] [address] [place] [address] [place] [address] [address] [facility] [address] [place] [id number] Request an Appointment Social History Tobacco Use [...] on file 08/05/2021 Data from: https://www.neighborhoodatlas.medicine.[facility].edu/. Last address used for [...] documented as of this encounter Care Teams Lard Renderer Relationship Specialty Start Date End Date Kami Olvera MD [address] [place] [address] PCP - General Family Medicine 02/01/17 Jazzy Dunn RN 417 [facility] [address] Specialty Cryptozoologist Hematology/Oncology 07/27/21 04/30/23 David House MD [address] [place] [address] Physician Hematology/Oncology 07/27/21 Odette Lopez PA-C [address] [facility] [place] [address] Physician Speech Scientist Hematology/Oncology 07/27/21 Rubens Singh MD 417 [facility] [place] [address] Physician Hematology/Oncology 10/08/21 Fran [facility] Palliative Medicine Provider 08/30/21 documented as of this encounter
--- OUTSIDE RECORDS SUMMARY | 2024-12-16 12:00 | XMS_ITS | Encounter Summary ---
Author Organization [facility] Address [address] [place] [address] Care Team Providers Care Systems Management Consultant Name Role Phone Kami Olvera MD Primary Care Provider [phone] Jazzy Dunn RN Unavailable [phone] David House MD Unavailable [phone] Odette Lopez PA-C Unavailable [phone] Rubens Singh MD Unavailable [phone] Source Comments In the event this information is protected by the Federal Confidentiality of Alcohol and Drug AbusePatient Records regulations: The Federal rules restrict any use of the information to criminally investigate or prosecute any alcohol or drug abuse patient.[facility] Encounter Details Date Type Department Care Team (Late st Contact Info) Description 05/10/2021 Get Medical Advice BMI [facility] [address] [address] [place], [place] [id number] [place] [address] [address] [place], [place] [address] Feeding Tube Social History Tobacco Use Types [...] documented as of this encounter Care Teams Systems Management Consultant Relationship Specialty Start Date End Date Kami Olvera MD [address] [facility] [address] PCP - General Family Medicine 02/01/17 Jazzy Dunn RN [address] [place] [address] Specialty Test Conductor Hematology/Oncology 07/27/21 04/30/23 David House MD [address] [place] [address] Physician Hematology/Oncology 07/27/21 Odette Lopez PAPonchoC [address] [place] [address] [place] [address] Physician Buffer Nickel Hematology/Oncology 07/27/21 Rubens Singh MD [address] [place] [address] [place] [address] Physician Hematology/Oncology 10/08/21 Fran [facility] Palliative Medicine Provider 08/30/21 documented as of this encounter
--- OUTSIDE RECORDS SUMMARY | 2024-12-16 12:00 | XMS_ITS | Encounter Summary ---
Author Organization [facility] Address [address] [place] [address] Care Team Providers Care Copy Center Operator Name Role Phone Kami Olvera MD Primary Care Provider [phone] Jazzy Dunn RN Unavailable [phone] David House MD Unavailable [phone] Odette Lopez PA-C Unavailable [phone] Rubens Singh MD Unavailable [phone] Source Comments In the event this information is protected by the Federal Confidentiality of Alcohol and Drug AbusePatient Records regulations: The Federal rules restrict any use of the information to criminally investigate or prosecute any alcohol or drug abuse patient.[facility] Encounter Details Date Type Department Care Team (Late st Contact Info) Description 02/01/2021 Get Medical Advice BMI [facility] [address] [address] [place], [place] [id number] [place] [address] [address] [place], [place] [address] Feed rate Social History Tobacco Use Types [...] N ot on file 02/23/2020 Data from: https://www.neighborhoodatlas.medicine.[facility].edu/. Last address used for calculation Not [...] documented as of this encounter Care Teams Copy Center Operator Relationship Specialty Start Date End Date Kami Olvera MD [address] [place] [address] PCP - General Family Medicine 02/01/17 Jazzy Dunn RN [address] [place] [address] Specialty Paste Up Worker Hematology/Oncology 07/27/21 04/30/23 David House MD [address] [place] [address] [place] [address] Physician Hematology/Oncology 07/27/21 Odette Lopez PA-C [address] [place] [address] [place] [address] Physician Friction Saw Operator Hematology/Oncology 07/27/21 Rubens Singh MD [address] [place] [address] Physician Hematology/Oncology 10/08/21 Fran [facility] Palliative Medicine Provider 08/30/21 documented as of this encounter
--- OUTSIDE RECORDS SUMMARY | 2024-12-16 12:00 | XMS_ITS | Encounter Summary ---
Author Organization [facility] Address [address] [facility] [place] [address] Care Team Providers Care Wind Turbine Installer Name Role Phone Kami Olvera MD Primary Care Provider [phone] Kapil Patel DO Primary Care Provider + [phone] Kapil Patel DO Unavailable [phone] Monday, Paz DATE NIGHT CAREGIVER Unavailable [phone] Encounter Details Date Type Department Care [...] 2:00 PM EST Office Visit [facility] [place] [facility] [address] [facility] [address] [place] [address] Cole Phillip MD [address] [facility] [address] [place] [address] 04/30/2025 2:15 PM EST Office Visit [facility] [address] [place] [address] Reji De Luna, DO [address] [place] [address] documented as of this encounter Procedures Procedure Name Priority Date/Time Associated Diagnosis Comments MRI PANC/CLAYTON WO IVCON 08/08/2023 11:29 AM EDT documented in this encounter Results * MRI PANC/[place] WO IVCON (08/08/2023 11:29 AM EDT) Anatomical Region Laterality Modality Other 08/08/2023 11:2 9 AM EDT Narrative 08/08/2023 4:56 PM EDT * * *Final Report* * * DATE OF EXAM: Aug 08 2023 11:29AM [facility] 0729 - MRI PANC/[place] WO IVCON [...] of pancreas divisum. No pancreatic duct dilation. Feather Washer: [facility] Transcribe Date/Time: Aug 08 2023 4:40P Dictated by : SERGEY BATEMAN MD This examination was interpreted and the report reviewed and electronically signed by: SERGEY BATEMAN MD on Aug 08 2023 4:54PM EST [id number]^AGFA_[id number]^SI^ACN Procedure Note Radiology, Radiologist, - 08/08/2023 * * *Final Report* * * DATE OF EXAM: Aug 08 2023 11:29AM [facility] 0729 - MRI PANC/[place] WO IVCON [...] of pancreas divisum. No pancreatic duct dilation. Feather Washer: [facility] Transcribe Date/Time: Aug 08 2023 4:40P Dictated by : SERGEY BATEMAN MD This examination was interpreted and the report reviewed and electronically signed by: SERGEY BATEMAN MD on Aug 08 2023 4:54PM EST [id number]^[id number]^SI^ACN Generic External Data Provider [facility] Final Result documented in this encounter Visit Diagnoses Not on filedocumented in this encounter Care Teams Wind Turbine Installer Relationship Specialty Start Date End Date Kami Olvera MD [address] [place] [address] PCP - General Family Medicine 07/26/22 10/07/24 Kapil Patel DO [address] [place] [address] PCP - General Family Medicine 10/08/24 Kapil Patel DO [address] [place] [address] PCP - [facility] 10/24/24Monday, FELISHA Mullen [address] [place] [address] Licensed Practical Nurse Family Medicine 11/25/2411/28 documented as of this encounter
--- OUTSIDE RECORDS SUMMARY | 2024-12-16 12:00 | XMS_ITS | Encounter Summary ---
Author Organization [facility] Address [address] [place] [address] Care Team Providers Care Cotton Farmworker Name Role Phone Kami Olvera MD Primary Care Provider [phone] Jazzy Dunn RN Unavailable [phone] David House MD Unavailable [phone] Odette Lopez PA-C Unavailable [phone] Rubens Singh MD Unavailable [phone] Source Comments In the event this information is protected by the Federal Confidentiality of Alcohol and Drug AbusePatient Records regulations: The Federal rules restrict any use of the information to criminally investigate or prosecute any alcohol or drug abuse patient.[facility] Encounter Details Date Type Department Care Team (Late st Contact Info) Description 01/21/2021 Get Medical Advice BMI [facility] REJ [address] [place], [place] [phone] [place] [address] [address] [place], [place] [phone] RE: Visit Follow Up Question Social History [...] N ot on file 02/23/2020 Data from: https://www.neighborhoodatlas.medicine.[facility].edu/. Last address used for calculation [...] documented as of this encounter Care Teams Cotton Farmworker Relationship Specialty Start Date End Date Kami Olvera MD [address] [place] [address] PCP - General Family Medicine 02/01/17 Jazzy Dunn RN [address] [place] [address] [place] [address] Specialty Kinder Teacher Hematology/Oncology 07/27/21 04/30/23 David House MD [address] [place] [address] [place] [address] Physician Hematology/Oncology 07/27/21 Odette Lopez PAPonchoC [address] [place] [address] [place] [address] Physician Inside Sales Associate Hematology/Oncology 07/27/21 Rubens Singh MD [address] [place] [address] [place] [address] Physician Hematology/Oncology 10/08/21 Fran [facility] Palliative Medicine Provider 08/30/21 documented as of this encounter
--- OUTSIDE RECORDS SUMMARY | 2024-12-16 12:00 | XMS_ITS | Encounter Summary ---
Author Organization [facility] Address [address] [place] [address] Care Team Providers Care Senior Mobile Developer Name Role Phone Kami Olvera MD Primary Care Provider [phone] Jazzy Dunn RN Unavailable [phone] David House MD Unavailable [phone] Odette Lopez PA-C Unavailable [phone] Rubens Singh MD Unavailable [phone] Source Comments In the event this information is protected by the Federal Confidentiality of Alcohol and Drug AbusePatient Records regulations: The Federal rules restrict any use of the information to criminally investigate or prosecute any alcohol or drug abuse patient.[facility] Encounter Details Date Type Department Care Team (Late st Contact Info) Description 01/19/2021 Get Medical Advice BMI [facility] REJ [address] [place], [place] [phone] [place] [address] [address] [place], [place] [phone] RE: Visit Follow Up Question Social History [...] on file 02/23/2020 Data from: https://www.neighborhoodatlas.medicine.[facility].edu/. Last address used for calculation Not on [...] documented as of this encounter Care Teams Senior Mobile Developer Relationship Specialty Start Date End Date Kami Olvera MD [address] [place] [address] PCP - General Family Medicine 02/01/17 Jazzy Dunn RN [address] [place] [address] [place] [address] Specialty Maintenance Department Manager Hematology/Oncology 07/27/21 04/30/23 Davdi House MD [address] [place] [address] [place] [address] Physician Hematology/Oncology 07/27/21 Odette Lopez PAPonchoC [address] [place] [address] [place] [address] Physician Voice And Data Technician Hematology/Oncology 07/27/21 Rubens Singh MD [address] [place] [address] [place] [address] Physician Hematology/Oncology 10/08/21 Fran [facility] Palliative Medicine Provider 08/30/21 documented as of this encounter
--- OUTSIDE RECORDS SUMMARY | 2024-12-16 12:00 | XMS_ITS | Encounter Summary ---
Author Organization [facility] Address [address] [place] [address] Care Team Providers Care Roller Printer Name Role Phone Kami Olvera MD Primary Care Provider Kapil Patel DO Primary Care Provider +- [phone] Kapil Patel DO Unavailable [phone] Monday, Paz FLOORING MECHANIC Unavailable [phone] Encounter Details Date Type Department Care Team (Late st Contact Info) Description 08/26/2023 Abstract [facility] Family Medicine [address] [place] [phone] Kami Olvera MD [address] [place] [address] Social History Tobacco Use Types [...] [facility] Neurology [address] [facility] [address] [place] [address] [place] [address] [facility] [address] [place] [address] 04/30/2025 2:15 PM EST Office Visit [facility] [place] [facility] [address] [place] [address] Reji De Luna, DO [address] [place] [address] documented as of this encounter Visit Diagnoses Not on filedocumented in this encounter Care Teams Roller Printer Relationship Specialty Start Date End Date Kami Olvera MD [address] [place], [place] [address] PCP - General Family Medicine 07/26/22 10/07/24 Kapil Patel DO [address] [place] [address] PCP - General Family Medicine 10/08/24 Kapil Patel DO [address] [place] [address] PCP - Amita Roque 10/24/24Monday, FELISHA Mullen [address] [place] [address] Licensed Practical Nurse Family Medicine 11/25/2411/28 documented as of this encounter
--- OUTSIDE RECORDS SUMMARY | 2024-12-16 12:00 | XMS_ITS | Encounter Summary ---
Author Organization [facility] Address [address] [facility] [place] [address] Care Team Providers Care Safe Expert Name Role Phone Kami Olvera MD Primary Care Provider [phone] Kapil Patel DO Primary Care Provider + [phone] Kapil Patel DO Unavailable [phone] Monday, Paz BRAKESHOE REPAIRER Unavailable [phone] Encounter Details Date Type Department Care [...] 2:00 PM EST Office Visit LESLIE [facility] [place] [facility] [address] [place] [address] Cole Phillip MD [address] [facility] [address] [place] [address] 04/30/2025 2:15 PM EST Office Visit LESLIE Knight Otolaryngology [address] [place] [address] Reji De Luna W, DO [address] [address] documented as of this encounter Procedures Procedure [...] DATE OF EXAM: Oct 31 2023 9:17AM [facility] 0539 - CT CHEST W [...] CT scan report for the abdomen findings. Associate Professor Of Management (topogram) images: No additional findings. IMPRESSION: 1. [...] any questions regarding this interpretation, please call [phone]. If you are unable to reach us at the number above, please feel free to contact [facility] at [phone]. [id number]^[email or web address]^ACN Procedure Note Radiology, Radiologist, - 10/31/2023 * * *Final Report* * * DATE OF EXAM: Oct 31 2023 9:17AM [facility] 0539 - CT CHEST W [...] CT scan report for the abdomen findings. Associate Professor Of Management (topogram) images: No additional findings. IMPRESSION: 1. [...] any questions regarding this interpretation, please call [phone]. If you are unable to reach us at the number above, please feel free to contact [facility] at [phone]. [id number]^[email or web address]^SI^ACN us Generic External Data Provider IMG CT PROCEDURES Final Result documented in this encounter Visit Diagnoses Not on filedocumented in this encounter Care Teams Safe Expert Relationship Specialty Start Date End Date Kami Olvera MD [address] [place] [address] PCP - General Family Medicine 07/26/22 10/07/24 Kapil Patel DO [address] [facility] [address] [place] [address] PCP - General Family Medicine 10/08/24 Kapil Patel DO [address] [place] [address] PCP - Amita Roque 10/24/24Monday, FELISHA [place] [address] [facility] [address] [place] [address] Licensed Practical Nurse Family Medicine 11/25/2411/28 documented as of this encounter
--- OUTSIDE RECORDS SUMMARY | 2024-12-16 12:00 | XMS_ITS | Encounter Summary ---
Author Organization [facility] Address [address] [place] [address] Care Team Providers Care Inter Com Installer Name Role Phone Kami Olvera MD Primary Care Provider [phone] Jazzy Dunn RN Unavailable [phone] David House MD Unavailable [phone] Odette Lopez PA-C Unavailable [phone] Rubens Singh MD Unavailable [phone] Source Comments In the event this information is protected by the Federal Confidentiality of Alcohol and Drug AbusePatient Records regulations: The Federal rules restrict any use of the information to criminally investigate or prosecute any alcohol or drug abuse patient.[facility] Encounter Details Date Type Department Care Team (Late st Contact Info) Description 03/11/2021 Get Medical Advice BMI [facility] REJ [address] [place], [place] [id number] [place] [address] [address] [place], [place] [phone] Work Release Social History Tobacco Use Types [...] on file 02/23/2020 Data from: https://www.neighborhoodatlas.medicine.[facility].edu/. Last address used for calculation Not [...] Date Author No 02/19/2021 11:35 AM Gabriela Loepz RN documented in this encounter Plan of [...] documented as of this encounter Care Teams Inter Com Installer Relationship Specialty Start Date End Date Kmai Olvera MD [address] [facility] [place] [address] PCP - General Family Medicine 02/01/17 Jazzy Dunn RN [address] [place] [address] Specialty Regional Truck Driver Hematology/Oncology 07/27/21 04/30/23 David House MD [address] [place] [address] Physician Hematology/Oncology 07/27/21 Odette Lopez PAPonchoC [address] [place] [address] [place] [address] Physician Inspector Boiler Hematology/Oncology 07/27/21 Rubens Singh MD [address] [place] [address] [place] [address] Physician Hematology/Oncology 10/08/21 Fran [facility] Palliative Medicine Provider 08/30/21 documented as of this encounter
--- OUTSIDE RECORDS SUMMARY | 2024-12-16 12:00 | XMS_ITS | Encounter Summary ---
Author Organization [facility] Address [address] [facility] [facility] [place] [address] Care Team Providers Care Music Engineer Name Role Phone Kami Olvera MD Primary Care Provider [phone] Kapil Patel DO Primary Care Provider + [phone] Kapil Patel DO Unavailable [phone] Monday, Paz GEOTHERMAL POWERPLANT SUPERVISOR Unavailable [phone] Encounter Details Date Type Department Care [...] 2:00 PM EST Office Visit LESLIE Knight [place] [facility] [address] [facility] [address] [place] [address] Cole Phillip MD [address] [facility] [address] [place] [address] 04/30/2025 2:15 PM EST Office Visit LESLIE Knight Otolaryngology [address] [place] [address] Reji De Luna, DO [address] [place] [address] documented as of this encounter Procedures Procedure Name Priority Date/Time Associated Diagnosis Comments [facility] SURGICAL PATHOLOGY Routine 07/13/2023 12:36 PM EDT UPPER GI ENDOSCOPY 07/13/2023 12 :17 PM EDT documented in this encounter Results * [facility] SURGICAL PATHOLOGY (07/13/2023 12:36 PM EDT) [facility] CASE REPORT [facility] Comment: Surgical Pathology Report Case: [id number] Authorizing Provider: Tim Kumar MD Collected: 07/13/2023 [...] in one cassette. Gross examination performed at [facility] [place] [address] July 13, 2023 6:54 PM [facility] FINAL PERFORMING LAB [facility] Comment: Diagnostic interpretation performed at [facility] [address] CLIA# [id number] Automotive Parts Counterperson: Zachariah San M.D. 07/13/2023 12:3 6 PM EDT 07/13/2023 5:52 PM EDT Narrative TIFF - 07/14/2023 12:19 PM EDT Specimen Type: TISSUE SPECIMEN Ordering Facility: [facility] Address: [address] [place] [address] Original Ordering Provider: TIM KUMAR us Generic External Data Provider TIFF F inal Result TIFF [facility] [address] [facility] [place] [address] * UPPER GI ENDOSCOPY (07/13/2023 12:17 PM EDT) Anatomical Region Laterality Modality Other 07/13/2023 12:1 7 PM EDT Narrative 07/13/2023 12:45 PM EDT [facility] Gastrointestinal Endoscopy Patient Name: Negro Stacy Procedure Date: 07/13/2023 12:17 PM Date of : 1995 Admit Type: Outpatient Age: 28 Room: [place] [address] Gender: Female Note Status: Finalized Attending MD: Tim Kumar MD, [id number] Procedure: Upper GI endoscopy Indications: Abdominal pain [...] minimal. Procedure Note Radiology, Radiologist, - 07/13/2023 [facility] Gastrointestinal Endoscopy Patient Name: Negro Stacy Procedure Date: 07/13/2023 12:17 PM Date of : 1995 Admit Type: Outpatient Age: 28 Room: [facility] 01 Gender: Female Note Status: Finalized Attending MD: Tim Kumar MD, [id number] Procedure: Upper GI endoscopy Indications: Abdominal pain [...] Blood Loss: Estimated blood loss was minimal. [employer] External Data Provider [facility] Final Result documented in this encounter Visit Diagnoses Not on filedocumented in this encounter Care Teams Music Engineer Relationship Specialty Start Date End Date Kami Olvera MD [address] [place] [address] PCP - General Family Medicine 07/26/22 10/07/24 Kapil Patel DO [address] [place] [address] PCP - General Family Medicine 10/08/24 Kapil Patel DO [address] [place] [address] PCP - [facility] 10/24/24MondayPza LPN [address] [facility] [address] [place] [address] Licensed Practical Nurse Family Medicine 11/25/2411/28 documented as of this encounter
--- OUTSIDE RECORDS SUMMARY | 2024-12-16 12:00 | XMS_ITS | Encounter Summary ---
Author Organization [facility] Address [address] [place] [address] Care Team Providers Care Pole Truck Driver Name Role Phone Kami Olvera MD Primary Care Provider [phone] Jazzy Dunn RN Unavailable [phone] David House MD Unavailable [phone] Odette Lopez PA-C Unavailable [phone] Rubens Singh MD Unavailable [phone] Source Comments In the event this information is protected by the Federal Confidentiality of Alcohol and Drug AbusePatient Records regulations: The Federal rules restrict any use of the information to criminally investigate or prosecute any alcohol or drug abuse patient.[facility] Encounter Details Date Type Department Care Team (Late st Contact Info) Description 02/01/2021 Get Medical Advice [facility] REJ [address] [place], [place] [phone] [place] [address] [address] [place], [place] [id number] Update Social History Tobacco Use Types Packs/Day [...] documented as of this encounter Care Teams Pole Truck Driver Relationship Specialty Start Date End Date Kami Olvera MD [address] [place] [address] PCP - General Family Medicine 02/01/17 Jazzy Dunn RN [address] [place] [address] Specialty Standpipe Tender Hematology/Oncology 07/27/21 04/30/23 David House MD [address] [place] [address] Physician Hematology/Oncology 07/27/21 Odette Lopez PA-C [address] [place] [address] [place] [address] Physician Aviation Support Equipment Repairer Hematology/Oncology 07/27/21 Rubens Singh MD [address] [place] [address] Physician Hematology/Oncology 10/08/21 Fran [facility] Palliative Medicine Provider 08/30/21 documented as of this encounter
--- OUTSIDE RECORDS SUMMARY | 2024-12-16 12:00 | XMS_ITS | Encounter Summary ---
Author Organization [facility] Address [address] [facility] [place] [address] Care Team Providers Care Surgical Services Tech Name Role Phone Kami Olvera MD Primary Care Provider [phone] Kapil Patel DO Primary Care Provider + [phone] Kapil Patel DO Unavailable [phone] Monday, Paz BIKE ASSEMBLER Unavailable [phone] Encounter Details Date Type Department Care [...] 2:00 PM EST Office Visit LESLIE Knight [place] [facility] [address] [facility] [address] [place] [address] Cole Phillip MD [address] [facility] [address] [place] [address] 04/30/2025 2:15 PM EST Office Visit LESLIE Knight Otolaryngology [address] [place] [address] Reji De Luna W, DO [address] [place] [address] documented as of this encounter Procedures Procedure Name Priority Date/Time Associated Diagnosis Comments CT ABD/PEL W IVCON 10/31/2023 9: 17 AM EDT documented in this encounter Results * CT ABD/PEL W IVCON (10/31/2023 9:17 AM EDT) Anatomical Region Laterality Modality Other 10/31/2023 9:17 AM EDT Narrative 10/31/2023 4:45 PM EDT * * *Final Report* * * DATE OF EXAM: Oct 31 2023 9:17AM [facility] 0530 - CT ABD/PEL W IVCON [...] chest CT performed will be reported separately. Director Multimedia (topogram) images: No additional findings. IMPRESSION: 1. [...] any questions regarding this interpretation, please call [phone]. If you are unable to reach us at the number above, please feel free to contact [facility] at [phone]. [id number]^AGFA_[email or web address]^ACN Procedure Note Radiology, Radiologist, - 10/31/2023 * * *Final Report* * * DATE OF EXAM: Oct 31 2023 9:17AM [facility] 0530 - CT ABD/PEL W IVCON [...] chest CT performed will be reported separately. Director Multimedia (topogram) images: No additional findings. IMPRESSION: 1. [...] any questions regarding this interpretation, please call [phone]. If you are unable to reach us at the number above, please feel free to contact [facility] at [phone]. [id number]^AGFA_IDC^SI^ACN us Generic External Data Provider [facility] Final Result documented in this encounter Visit Diagnoses Not on filedocumented in this encounter Care Teams Surgical Services Tech Relationship Specialty Start Date End Date Kami Olvera MD [address] [place] [address] PCP - General Family Medicine 07/26/22 10/07/24 Kapil Patel DO [address] [address] PCP - General Family Medicine 10/08/24 Kapil Patel DO [address] [facility] [address] [place] [address] PCP - Amita Roque 10/24/24Monday, FELISHA Mullen [address] [facility] [address] [place] [address] Licensed Practical Nurse Family Medicine 11/25/2411/28 documented as of this encounter
--- OUTSIDE RECORDS SUMMARY | 2024-12-16 12:00 | XMS_ITS | Encounter Summary ---
Author Organization [facility] Address [address] [place] [address] Care Team Providers Care Machine Tool Technology Instructor Name Role Phone Kami Olvera MD Primary Care Provider [phone] Jazzy Dunn RN Unavailable [phone] David House MD Unavailable [phone] Odette Lopez PA-C Unavailable [phone] Rubens Singh MD Unavailable [phone] Source Comments In the event this information is protected by the Federal Confidentiality of Alcohol and Drug AbusePatient Records regulations: The Federal rules restrict any use of the information to criminally investigate or prosecute any alcohol or drug abuse patient.[facility] Encounter Details Date Type Department Care Team (Late st Contact Info) Description 05/07/2021 Patient Msg Family Medicine [address] [place] [address] Provider, [facility] Appointment change Social [...] documented as of this encounter Care Teams Machine Tool Technology Instructor Relationship Specialty Start Date End Date Kami Olvera MD [address] [facility] [place] [address] PCP - General Family Medicine 02/01/17 Jazzy Dunn RN [address] [facility] [address] [address] Specialty School Speech Language Pathologist Hematology/Oncology 07/27/21 04/30/23 David House MD [address] [facility] [place] [address] Physician Hematology/Oncology 07/27/21 Odette Lopez PA-C [address] [facility] [place] [address] Physician Pizza Delivery Driver Hematology/Oncology 07/27/21 Rubens Singh MD [address] [place] [address] Physician Hematology/Oncology 10/08/21 Fran [facility] Palliative Medicine Provider 08/30/21 documented as of this encounter
--- OUTSIDE RECORDS SUMMARY | 2024-12-16 12:00 | XMS_ITS | Encounter Summary ---
Author Organization [facility] Address [address] [place] [address] Care Team Providers Care Fire Supervisor Name Role Phone Kami Olvera MD Primary Care Provider [phone] PetKapil looney DO Primary Care Provider [phone] Kapil Patel DO Unavailable [phone] Monday, Paz WEBLOGIC DEVELOPER Unavailable [phone] Encounter Details Date Type Department Care Team (Late st Contact Info) Description 10/28/2023 Abstract [facility] Family Medicine [address] [place] [address] Kami Olvera MD [address] [place], [place] [phone] Social History Tobacco Use Types Packs/Day Years [...] 2:00 PM EST Office Visit L[facility]LIE [facility] [address] [facility] [address] [place] [address] Cole Phillip MD [address] [facility] [address] [place] [address] 04/30/2025 2:15 PM EST Office Visit [facility] [place] [facility] [address] [place] [address] Reji De Luna, DO [address] [place] [address] documented as of this encounter Visit Diagnoses Not on filedocumented in this encounter Care Teams Fire Supervisor Relationship Specialty Start Date End Date Kami Olvera MD [address] [place] [place], [place] [address] PCP - General Family Medicine 07/26/22 10/07/24 Kapil Patel DO [address] [place] [address] PCP - General Family Medicine 10/08/24 Kapil Patel DO [address] [place] [address] PCP - Amita Roque 10/24/24Monday, FELISHA Mullen [address] [place] [address] Licensed Practical Nurse Family Medicine 11/25/2411/28 documented as of this encounter
--- OUTSIDE RECORDS SUMMARY | 2024-12-16 12:01 | XMS_ITS | Encounter Summary ---
Author Organization [facility] Address [address] [place] [address] Care Team Providers Care General Accountant Name Role Phone Kami Olvera MD Primary Care Provider [phone] Jazzy Dunn RN Unavailable [phone] David House MD Unavailable [phone] Odette Lopez PA-C Unavailable [phone] Rubens Singh MD Unavailable [phone] Source Comments In the event this information is protected by the Federal Confidentiality of Alcohol and Drug AbusePatient Records regulations: The Federal rules restrict any use of the information to criminally investigate or prosecute any alcohol or drug abuse patient.[facility] Encounter Details Date Type Department Care Team (Late st Contact Info) Description 03/11/2021 Get Medical Advice BMI [facility] REJ [address] [place], [place] [phone] [place] [address] [address] [place], [place] [phone] Work Release Social History Tobacco Use Types [...] N ot on file 02/23/2020 Data from: https://www.neighborhoodatlas.medicine.[facility].edu/. Last address used for calculation [...] as of this encounter Care Teams General Accountant Relationship Specialty Start Date End Date Kami Olvera MD [address] [facility] [place] [address] PCP - General Family Medicine 02/01/17 Jazzy Dunn RN [address] [place] [address] Specialty Sports Athletic Trainer Hematology/Oncology 07/27/21 04/30/23 David House MD [address] [place] [address] Physician Hematology/Oncology 07/27/21 Odette Lopez PAPonchoC [address] [place] [address] [place] [address] Physician Sap Abap Programmer Hematology/Oncology 07/27/21 Rubens Singh MD [address] [place] [address] [place] [address] Physician Hematology/Oncology 10/08/[address] [facility] Palliative Medicine Provider 08/30/21 documented as of this encounter
--- OUTSIDE RECORDS SUMMARY | 2024-12-16 12:01 | XMS_ITS | Encounter Summary ---
Author Organization [facility] Address [address] [place] [address] Care Team Providers Care Electrical Discharge Machine Operator Name Role Phone Unavailable Primary Care Provider Unavailabl e Encounter Details Date Type Department Care Team (Late st Contact Info) Description 12/06/2024 Telephone [facility] Medicine [address] [place] [address] Maci Roberson MD [address] [place] [address] Social History Tobacco Use Types Packs/Day Years Used Date Smoking Tobacco: Never Assessed Comments Unknown Sex and Gender Information Value Date Recorded Sex Assigned at Not on file Legal Sex Female 10:04 PM EDT Gender Identity Not on file Sexual Orientation Not on file documented as of this encounter Miscellaneous Notes * Telephone Encounter - Maci Roberson MD - 12/06/2024 1:23 AM EDT I was called by [facility] regarding a transfer from . That facility is requesting transfer because insurance. The clinical history is: - 29 F with a Pmhx of cholecystectomy for cholecystitis and hodgkin's lymphoma in remission, who presented for diarrhea x 1 week, genralized abd pain and intractable nausea and vomiting x 2 days. Pain has been worse after meals, epigastric area - no fevers, chills, chest pain, shortness of breath, dysuria, hematuria - On Exam: epigastric and RUQ tenderness, non peritonitic, CTAB, RRR no m/r/g - Labs: ketones in urine, urobili in urine, no signs of infection, CMP largely unremarkable - CT: no acute abn, post surgical gretta Small pneumonibilia unremarkable - RUQ US: nonobs R nephrolithiasis - Given morphine, dilaudid, toradol, compazine, zofran, continues to have intractable nausea vomiting - asked them to add a UTox The patient was accepted for transfer pending bed availability with the caveat that patient will continue in clinical stability. The patient was accepted 1:23 AM 12/06/24. If the facility number was unknown or Unavailable at the time of acceptance, [facility] can supply the call back number. The receiving team is responsible for calling the sending facility for provider to provider report if there has been significant delay between the time the patient was accepted and the time the bed was assigned. If there is concern for clinical stability by the receiving team they will call the PIC (physician in charge) to discuss the case. Maci Roberson MD documented in this encounter Plan of Treatment Upcoming Encounters Date Type Department Care Team (Late st Contact Info) Description 12/19/2024 11:00 AM EDT Telemedicine [facility] Internal Medicine [address] [place] [address] Marjorie Bustillos MD [address] [place] [address] 02/06/2025 3:00 PM EST Office Visit [facility] Gastroenterology [address] [place] [address] Nathanael Trimble MD [address] [place] [address] documented as of this encounter Visit Diagnoses Not on filedocumented in this encounter
--- OUTSIDE RECORDS SUMMARY | 2024-12-16 12:01 | XMS_ITS | Encounter Summary ---
Author Organization [facility] Address [address] [place] [address] [place] [address] Care Team Providers Care Inhalation Therapist Name Role Phone Unavailable Primary Care Provider Unavailabl e Encounter Details Date Type Department Care Team (Latest Contact Info) Description 12/09/2024 Travel Social History Tobacco Use Types Packs/Day [...] Info) Description 12/19/2024 11:00 AM EDT Telemedicine [facility] Internal Medicine [address] [place] [address] Marjorie Bustillos MD [address] [place] [address] 02/06/2025 3:00 PM EST Office Visit [facility] Gastroenterology [address] [place] [address] Nathanael Trimble MD [address] [place] [address] documented as of this encounter Visit Diagnoses Not on filedocumented in this encounter
--- OUTSIDE RECORDS SUMMARY | 2024-12-16 12:01 | XMS_ITS | Encounter Summary ---
Author Organization [facility] Address [address] [place] [address] Care Team Providers Care Para Educator Name Role Phone Kami Olvera MD Primary Care Provider [phone] Kapil Patel DO Primary Care Provider + [phone] Kapil Patel DO Unavailable [phone] Monday, Paz MOUNTER Unavailable [phone] Encounter Details Date Type Department Care [...] 2:00 PM EST Office Visit [facility] [place] [facility] [address] [place] [address] Cole Phillip MD [address] [facility] [address] [place] [address] 04/30/2025 2:15 PM EST Office Visit LESLIE Knight Otolaryngology [address] [place] [address] Reji De Luna, DO [address] [place] [address] documented as of this encounter Procedures Procedure [...] any questions regarding this interpretation, please call [phone]. If you are unable to reach us at the number above, please feel free to contact [facility] at [phone]. [id number]^[email or web address]^SI^ACN Procedure Note Radiology, Radiologist, - 08/24/2023 * [...] any questions regarding this interpretation, please call [phone]. If you are unable to reach us at the number above, please feel free to contact [facility] at [phone]. [id number]^AGFA_IDC^SI^ACN us Generic External Data Provider [facility] IMAGING Final Result * [facility] CELIAC SCREEN (08/23/2023 1:05 PM EDT) [facility] TTG IGA SER-ACNC <2 <4 U/mL [facility] TRANSGLUTAMINASE IGA ABS INTERPRETATION Negative Negative [facility] Comment: The following results were obtained with [employer] QUANTA Lite R h-tTG IgA ULISES.???R h-tTG [...] The following results were obtained with an [employer] QUANTA Lite Gliadin IgA ULISES Gliadin. Gliadin IgA values obtained with different manufacturers' assay methods may not be used interchangeably. The magnitude of the reported IgA levels cannot be correlated to an endpoint titer. 08/23/2023 1:05 PM EDT 08/23/2023 11:17 PM EDT Narrative [facility] - 08/25/2023 1:54 PM EDT Specimen Type: BLOOD SPECIMEN Ordering Facility: [facility] Address: [address] [place] [address] Original Ordering Provider: DAISY OCHOA Generic External Data Provider ALEXEIISYCHRISTOFER F inal Result Performing Organization Address [facility] de Phone Number [facility] CC [address] [address] * [facility] IGA SERPL-MCNC (08/23/2023 1:05 PM EDT) [facility] IGA SERPL-MCNC 121 70 - 400 mg/dL [facility] 08/23/2023 1:05 PM EDT 08/23/2023 11:19 PM EDT Narrative [facility] - 08/24/2023 9:45 AM EDT Specimen Type: BLOOD SPECIMEN Ordering Facility: [facility] Address: [address] [place] [address] Original Ordering Provider: DAISY OCHOA Generic External Data Provider [facility] F inal Result Performing Organization Address [facility] de Phone Number ALEXEIISYNC [facility] [address] [address] documented in this encounter Visit Diagnoses Not on filedocumented in this encounter Care Teams Para Educator Relationship Specialty Start Date End Date Kami Olvera MD [address] [place] [address] PCP - General Family Medicine 07/26/22 10/07/24 Kapil Patel DO [address] [place] [address] PCP - General Family Medicine 10/08/24 Kapil Patel DO [address] [place] [address] PCP - [facility] 10/24/24Monday, FELISHA Mullen [address] [place], [place] [address] Licensed Practical Nurse Family Medicine 11/25/2411/28 documented as of this encounter
--- OUTSIDE RECORDS SUMMARY | 2024-12-16 12:02 | XMS_ITS | Encounter Summary ---
Author Organization [facility] Address [address] [address] Care Team Providers Care Poultry Scalder Name Role Phone Kapil Patel DO Primary Care Provider +- [phone] Kapil Patel DO Unavailable [phone], Paz ANDERSONN Unavailable [phone] Encounter Details Date Type Department Care Team (Late st Contact Info) Description 11/19/2024 Abstract [facility] [address] [place] [address] Kapil Patel, DO [address] [place] [address] Social History Tobacco Use Types Packs/Day Years [...] 11/12/2024 How often do you attend [facility] or evangelical services? More than 4 times per year 11/12/2024 Do you belong to any clubs o r organizations such as confucianist groups, unions, fraternal or athletic groups, or [...] Recorded Patient Health Questionnaire-2 Score 0 11/22/2024 [facility] - Occupational [...] time in the past 12 m [facility], were you homeless or living in a [...] Neurology [address] [place] [address] Cole Phillip MD [address] [address] [place] [address] 04/30/2025 2:15 PM EST Office Visit LESLIE Knight Otolaryngology [address] [place] [address] Reji De Luna, DO [address] [place] [address] documented as of this encounter Visit Diagnoses Not on filedocumented in this encounter Care Teams Poultry Scalder Relationship Specialty Start Date End Date Kapil Patel DO [address] [place] [address] PCP - General Family Medicine 10/08/24 Kapil Patel DO [address] [place] [address] PCP - [place] [employer] 10/24/24Monday, FELISHA Mullen [address] [place] [address] Licensed Practical Nurse Family Medicine 11/25/2411/28 documented as of this encounter
--- OUTSIDE RECORDS SUMMARY | 2024-12-16 12:02 | XMS_ITS | Encounter Summary ---
Author Organization [facility] Address [address] [place] [address] Care Team Providers Care Storage Receipt Poster Name Role Phone Kapil Patel DO Primary Care Provider [phone] Kapil Patel DO Unavailable [phone] Encounter Details Date Type Department Care Team ([facility] st Contact Info) Description 11/29/2024 External Result Encounter NOMS External Department Unsolicited Marcelle Ryan MD [address] [place] [address] Social History Tobacco Use Types [...] How often do you attend chur or tenriism services? More than 4 times per year [...] Questionnaire-2 Score 0 11/22/2024 [facility] - Occupational Stress Questionnaire Answer Date [...] [place] [facility] [address] [facility] [address] [place] [address] Cole Phillip MD [address] [facility] [facility] [address] [place] [address] 04/30/2025 2:15 PM EST Office Visit LESLIE Knight Otolaryngology [address] [place] [address] Reji De Luna W, DO [address] [place] [address] documented as of this encounter Procedures Procedure [...] Administration. Detection Limit = 5 Performed at: [facility] [address] [id number] Analyst Food And Beverage: Carlos Guerra MD, Phone: [phone] Other Topography unknown / Unknown 11/29/2024 8:50 AM EDT 11/29/2024 8:54 AM EDT us Marcelle Ryan MD LAB BLOOD ORDERABLES Final Resul t [facility] [address] [place] [address], documented in this encounter Visit Diagnoses Not on filedocumented in this encounter Care Teams Storage Receipt Poster Relationship Specialty Start Date End Date Kapil Patel DO [address] [place] [address] PCP - General Family Medicine 10/08/24 Kapil Patel DO [address] [place] [address] PCP - [place] [employer] 10/24/24 documented as of this encounter
--- OUTSIDE RECORDS SUMMARY | 2024-12-16 12:02 | XMS_ITS | Encounter Summary ---
Author Organization [facility] Address [address] [place] [address] Care Team Providers Care Chronic Care Nurse Name Role Phone Kami Olvera MD Primary Care Provider [phone] Jazzy Dunn RN Unavailable [phone] David House MD Unavailable [phone] Odette Lopez PA-C Unavailable [phone] Rubens Singh MD Unavailable [phone] Source Comments In the event this information is protected by the Federal Confidentiality of Alcohol and Drug AbusePatient Records regulations: The Federal rules restrict any use of the information to criminally investigate or prosecute any alcohol or drug abuse patient.[facility] Encounter Details Date Type Department Care Team (Latest Contact Info) Description 05/14/2021 Patient Msg [facility] [address] [place] [address] Provider, Ccf Pre Procedure Instructions Social History [...] N ot on file 02/23/2020 Data from: https://www.neighborhoodatlas.medicine.[facility].edu/. Last address used for calculation [...] documented as of this encounter Care Teams Chronic Care Nurse Relationship Specialty Start Date End Date Kami Olvera MD [address] [place] [address] PCP - General Family Medicine 02/01/17 Jazzy Dunn RN [address] [facility] [place] [address] Specialty Hunter Skin Diver Hematology/Oncology 07/27/21 04/30/23 David House MD [facility] [place] [address] Physician Hematology/Oncology 07/27/21 Odette Lopez, PAPonchoC [address] [place] [address] [place] [address] Physician Mig Welder Hematology/Oncology 07/27/21 Rubens Singh MD [address] [place] [address] [place] [address] Physician Hematology/Oncology 10/08/21 Fran [facility] Palliative Medicine Provider 08/30/21 documented as of this encounter
--- OUTSIDE RECORDS SUMMARY | 2024-12-16 12:02 | XMS_ITS | Encounter Summary ---
Author Organization [facility] Address [address] [place] [address] Care Team Providers Care Industrial Engineering Technician Name Role Phone Kami Olvera MD Primary Care Provider [phone] Jazzy Dunn RN Unavailable [phone] David House MD Unavailable [phone] Odette Lopez PA-C Unavailable [phone] Rubens Singh MD Unavailable [phone] Source Comments In the event this information is protected by the Federal Confidentiality of Alcohol and Drug AbusePatient Records regulations: The Federal rules restrict any use of the information to criminally investigate or prosecute any alcohol or drug abuse patient.[facility] Encounter Details Date Type Department Care Team (Late st Contact Info) Description 03/06/2021 Get Medical Advice BMI [facility] [address] [address] [place], [place] [phone] [place] [address] [address] [place], [place] [phone] Clogged J Tube Social History Tobacco Use [...] N ot on file 02/23/2020 Data from: https://www.neighborhoodatlas.medicine.[facility].edu/. Last address used for calculation [...] as of this encounter Care Teams Industrial Engineering Technician Relationship Specialty Start Date End Date Kami Olvera MD [address] [place] [address] PCP - General Family Medicine 02/01/17 Jazzy Dunn RN [address] [place] [address] Specialty Stay Cutter Hematology/Oncology 07/27/21 04/30/23 David House MD [address] [place] [address] Physician Hematology/Oncology 07/27/21 Odette Lopez PAPonchoC [address] [place] [address] [place] [address] Physician Labor Relations Representative Hematology/Oncology 07/27/21 Rubens Singh MD [address] [place] [address] [place] [address] Physician Hematology/Oncology 10/08/21 Fran [facility] Palliative Medicine Provider 08/30/21 documented as of this encounter
--- OUTSIDE RECORDS SUMMARY | 2024-12-16 12:02 | XMS_ITS | Encounter Summary ---
Author Organization [facility] Address [address] [place] [address] Care Team Providers Care Automobile Upholsterer Name Role Phone Kapil Patel DO Primary Care Provider [phone] Kapil Patel DO Unavailable [phone] Encounter Details Date Type Department Care Team ([facility] st Contact Info) Description 11/29/2024 External Result Encounter [facility] External Department Unsolicited Marcelle Ryan MD [address] [place] [address] Social History Tobacco Use Types [...] How often do you attend chur or yazidism services? More than 4 times per year [...] Recorded Patient Health Questionnaire-2 Score 0 11/22/2024 [facility] - Occupational Stress Questionnaire Answer Date Recorded [...] any time in the past 12 m [facility], were you homeless or [...] [place] [facility] [address] [facility] [address] [place] [address] Cole Phillip MD [address] [place] [address] 04/30/2025 2:15 PM EST Office Visit LESLIE Knight Otolaryngology [address] [place] [address] Reji De Luna W, DO [address] [place] [address] documented as of this encounter Procedures Procedure [...] 11/29/24 1316 Narrative 11/29/2024 1:18 PM EDT [facility] Main [place] [address] [place] [address] CT Scan Report Signed Patient: Negro Stacy MR#: [id number] [birth year] : 1995 Acct:[id number] Age/Sex: 29 / F ADM Date: 11/29/24 Loc: Room: Type: [facility] Attending Dr: Marcelle Ryan MD Copies [...] Procedure Note Jesus Ledesma Jr., - 11/29/2024 [facility] Main [place] [address] [place], [place] [address] CT Scan Report Signed Patient: Negro Stacy KMR#: [id number] 46 : 1995Acct:[id number] Age/Sex: 29 / FADM Date: 11/29/24 Loc: Room:Type: [facility] Attending Dr: Marcelle Ryan [...] Jr., D.OGhassan 11/29/2024 1:16 PM Dictation Location: [place] [address] Transcribed By: [facility] 11/29/24 1316 Dictated By: Jesus Ledesma Jr, DO 11/29/24 1313 Signed By: <Electronically signed by Jesus Ledesma Jr, inOV> 11/29/24 1316 us Marcelle Ryan MD IMG CT PROCEDURES Final Result documented in this encounter Visit Diagnoses Not on filedocumented in this encounter Care Teams Automobile Upholsterer Relationship Specialty Start Date End Date Kapil Patel DO [address] [place] [address] PCP - General Family Medicine 10/08/24 Kapil Patel DO [address] [place] [address] PCP - [place] [employer] 10/24/24 documented as of this encounter
--- OUTSIDE RECORDS SUMMARY | 2024-12-16 12:02 | XMS_ITS | Encounter Summary ---
Author Organization [facility] Address [address] [place] [address] Care Team Providers Care Commercial Lines Account Assistant Name Role Phone Kapil Patel DO Primary Care Provider [phone] Kapil Patel DO Unavailable [phone] Encounter Details Date Type Department Care Team ([facility] st Contact Info) Description 11/29/2024 External Result Encounter NOMS External Department Unsolicited Marcelle Ryan MD [address] [place] [address] Social History Tobacco Use Types [...] How often do you attend chur or scientologist services? More than 4 times per year 11/12/2024 Do you belong to any clubs o r organizations such as moravian groups, unions, fraternal or athletic groups, or [...] Recorded Patient Health Questionnaire-2 Score 0 11/22/2024 [facility] - Occupational Stress Questionnaire Answer Date [...] time in the past 12 m [facility], were you homeless or living in [...] 2:00 PM EST Office Visit LESLIE Knight [place] [facility] [address] [facility] [address] [place] [address] Cole Phillip MD [address] [facility] [address] [place] [address] 04/30/2025 2:15 PM EST Office Visit LESLIE Knight Otolaryngology [address] [place] [address] Reji De Luna W, DO [address] [place] [address] documented as of this encounter Procedures Procedure [...] 11/29/24 1318 Narrative 11/29/2024 1:20 PM EDT [facility] [place] [address] CT Scan Report Signed Patient: Negro Stacy MR#: [id number] [birth year] : 1995 Acct:[id number] Age/Sex: 29 / F ADM Date: 11/29/24 [...] Procedure Note Jesus Ledesma Jr., - 11/29/[address] [facility] Main [place] [address] [place] [address] CT Scan Report Signed Patient: Negro Stacy KMR#: [id number] [birth year] : 1995Acct:[id number] Age/Sex: 29 / FADM Date: 11/29/24 Loc: [...] Jr., D.O. 11/29/2024 1:18 PM Dictation Location: [place] [address] Transcribed By: [facility] 11/29/24 1318 Dictated By: Jesus Ledsema Jr, DO 11/29/24 1316 Signed By: <Electronically signed by Jesus Ledesma Jr, DO inOV> 11/29/24 1318 us Marcelle Ryan MD IMG CT PROCEDURES Final Result documented in this encounter Visit Diagnoses Not on filedocumented in this encounter Care Teams Commercial Lines Account Assistant Relationship Specialty Start Date End Date Kapil Patel DO [address] [place] [address] PCP - General Family Medicine 10/08/24 Kapil Patel DO [address] [place] [address] PCP - Amita Roque 10/24/24 documented as of this encounter
--- OUTSIDE RECORDS SUMMARY | 2024-12-16 12:02 | XMS_ITS | Encounter Summary ---
Author Organization [facility] Address [address] [place] [address] Care Team Providers Care Electric Motor Winders Assembler Name Role Phone Kapil Patel DO Primary Care Provider [phone] Kapil Patel DO Unavailable [phone] Reason for Visit * Reason Comments Med Refill Encounter Details Date Type Department Care Team (Late st Contact Info) Description 11/30/2024 Refill [facility] [place] [facility] [address] [place] [address] Cole Phillip MD [address] [place] [address] Depression, unspecified depression type Social History Tobacco [...] week 11/12/2024 How often do you attend [facility] or roman catholic services? More than 4 times per year 11/12/2024 Do you belong to any clubs o r organizations such as yazidism groups, unions, fraternal or athletic groups, or [...] Recorded Patient Health Questionnaire-2 Score 0 11/22/2024 [facility] - Occupational Stress Questionnaire Answer Date [...] any time in the past 12 m [facility], were you homeless or living in [...] 2:00 PM EST Office Visit LESLIE Knight [facility] Neurology [address] [facility] [address] [place] [address] Cole Phillip MD [address] [facility] [address] [place] [address] 04/30/2025 2:15 PM EST Office Visit LESLIE Knight Otolaryngology [address] [place] [address] Reji De Luna DO [address] [place] [address] documented as of this encounter Visit Diagnoses Diagnosis Depression, unspecified depression type documented in this encounter Care Teams Electric Motor Winders Assembler Relationship Specialty Start Date End Date Kapil Patel DO [address] [place] [address] PCP - General Family Medicine 10/08/24 Kapil Patel DO [address] [place] [address] PCP - Amita Roque 10/24/24 documented as of this encounter
--- OUTSIDE RECORDS SUMMARY | 2024-12-16 12:02 | XMS_ITS | Encounter Summary ---
Author Organization [facility] Address [address] [place] [address] Care Team Providers Care Textiles Printer Name Role Phone Kapil Patel DO Primary Care Provider [phone]- [phone] Kapil Patel DO Unavailable [phone] Encounter Details Date Type Department Care Team (Late st Contact Info) Description 12/07/2024 Clinisync Result Encounter NOMS External Department [...] How often do you attend chur or voodoo services? More than 4 times per year 11/12/2024 Do you belong to any clubs o r organizations such as hinduism groups, unions, fraternal or athletic groups, or [...] 11/22/2024 [facility] - Occupational Stress Questionnaire Answer Date Recorded [...] any time in the past 12 m [facility], were you homeless or living in a skilled nursing (including now)? No 11/12/2024 Comments Unknown Sex [...] [place] [facility] [address] [facility] [address] [place] [address] Cole Phillip MD [address] [facility] [address] [place], [place] [address] 04/30/2025 2:15 PM EST Office Visit LSELIE Knight Otolaryngology [address] [place] [address] Reji De Luna, DO [address] [place] [address] documented as of this encounter Procedures Procedure Name Priority Date/Time Associated Diagnosis Comments [facility] CMP (CMP) (FOR REMOTE [facility] USE) Routine 12/07/2024 5:12 AM EDT ALL CBC WITH AUTO DIFF Routine 12/07/2024 5:12 AM EDT documented in this encounter Results * (ABNORMAL) [facility] CMP (CMP) (FOR REMOTE [facility] USE) (12/07/2024 5:12 AM EDT) Pathologist [facility] GLUCOSE 91 74 - 99 mg/dL [facility] SODIUM 139 136 - 145 mmol/L [facility] POTASSIUM 3.4(L) 3.5 - 5.3 mmol/L [facility] CHLORIDE 102 98 - 107 mmol/L [facility] BICARBONATE 25 21 - 32 mmol/L [facility] ANION GAP 15 10 - 20 mmol/L [facility] UREA NITROGEN 17 6 - 23 mg/dL [facility] CREATININE 0.58 0.50 - 1.05 mg/dL [facility] GFRAT >90 >60 mL/min/1.7 3m*2 [facility] Comment: Calculations of estimated GFR are performed using the 2020 CKD-EPI Study Refit equation without the race variable for the IDMS-Traceable creatinine methods. https://jasn.asnjournals.org/content/early//ASN.4252389162 [facility] CALCIUM 8.8 8.6 - 10.6 mg/dL [facility] ALBUMIN 4.5 3.4 - 5.0 g/dL [facility] ALKALINE PHOSPHATASE 60 33 - 110 U/L [facility] TOTAL PROTEIN 6.8 6.4 - 8.2 g/dL [facility] AST 13 9 - 39 U/L [facility] BILIRUBIN,TOTAL 0.5 0.0 - 1.2 mg/dL [facility] ALT 14 7 - 45 U/L [facility] Comment:Patients treated wit h Sulfasalazine may generate falsely decreased results for ALT. Blood 12/07/2024 5:12 AM EDT 12/07/2024 5:53 AM EDT Narrative [facility] - 12/07/2024 6:22 AM EDT Original Ordering Provider: ERNIE BALDERAS us Generic External Data Provider TIFF casper Result TIFF [id number] [place] [id number] * ALL CBC WITH AUTO DIFF (12/07/2024 5:12 AM EDT) [facility] WBC 8.0 4.4 - 11.3 x10*3/uL [facility] NUCLEATED RBC 0.0 0.0 - 0.0 /100 WBCs [facility] RBC 4.60 4.00 - 5.20 x10*6/uL [facility] HGB 12.9 12.0 - 16.0 g/dL [facility] HCT 36.9 36.0 - 46.0 % [facility] MCV 80 80 - 100 fL MCH 28.0 26.0 - 34.0 pg [facility] MCHC 35.0 32.0 - 36.0 g/dL [facility] RDW-CV 11.7 11.5 - 14.5 % [facility] PLT 239 150 - 450 x10*3/uL Blood 12/07/2024 5:12 AM EDT 12/07/2024 5:53 AM EDT Narrative [facility] - 12/07/2024 5:57 AM EDT Original Ordering Provider: ERNIE BLADERAS us Generic External Data Provider [facility] F inal Result Performing Organization Address City/State/[facility] de Phone Number [facility] [address] [place] [id number] documented in this encounter Visit Diagnoses Not on filedocumented in this encounter Care Teams Textiles Printer Relationship Specialty Start Date End Date Kapil Patel DO [address] [facility] [address] [place] [address] PCP - General Family Medicine 10/08/24 Kapil Patel DO [address] [place] [address] PCP - [place] [employer] 10/24/24 documented as of this encounter
--- OUTSIDE RECORDS SUMMARY | 2024-12-16 12:02 | XMS_ITS | Encounter Summary ---
Author Organization [facility] Address [address] [place] [address] Care Team Providers Care Machine Featheredger And Reducer Name Role Phone Kapil Patel DO Primary Care Provider + [phone] Kapil Patel DO Unavailable [phone], Paz ANDERSONN Unavailable [phone] Encounter Details Date Type Department Care Team (Late st Contact Info) Description 11/21/2024 Patient Outreach [facility] POP[facility] [address] [place] [place] [address] Magda Barcenas LPN Social History Tobacco Use [...] often do you attend [facility] or advent services? More than 4 times per year 11/12/2024 Do you belong to any clubs o r organizations such as mosque groups, unions, fraternal or athletic groups, or [...] Recorded Patient Health Questionnaire-2 Score 0 11/22/2024 [facility] Questionnaire Answer Date [...] in the [facility] 12 m [facility], were you homeless or living in [...] [place] [facility] [address] [facility] [address] [place] [address] Cole Phillip MD [address] [place], [place] [address] 04/30/2025 2:15 PM EST Office Visit [facility] [place] [facility] [address] [place] [address] Reji De Luna, DO [address] [place] [address] documented as of this encounter Visit Diagnoses Not on filedocumented in this encounter Care Teams Machine Featheredger And Reducer Relationship Specialty Start Date End Date Kapil Patel, DO [address] [place] [address] PCP - General Family Medicine 10/08/24 Kapil Patel DO [address] [place] [address] [facility] 10/24/24Monday, FELISHA Mullen [address] [place] [address] Licensed Practical Nurse Family Medicine 11/25/2411/28 documented as of this encounter
--- OUTSIDE RECORDS SUMMARY | 2024-12-16 12:02 | XMS_ITS | Encounter Summary ---
Author Organization [facility] Address [address] [place] [address] Care Team Providers Care Prior Authorization Nurse Name Role Phone Kapil Patel DO Primary Care Provider +- [phone] Kapil Patel DO Unavailable [phone], Paz ANDERSONN Unavailable [phone] Encounter Details Date Type Department Care Team (Late st Contact Info) Description 11/22/2024 Abstract [facility] [address] [place] [address] Kapil Patel, DO [address] [place] [address] Social History Tobacco Use Types Packs/Day Years [...] 11/12/2024 How often do you attend [facility] or amish services? More than 4 times per year 11/12/2024 Do you belong to any clubs o r organizations such as congregational groups, unions, fraternal or athletic groups, or [...] Recorded Patient Health Questionnaire-2 Score 0 11/22/2024 [facility] Occupat ional [facility] - Occupational Stress [...] Neurology [address] [place] [address] Cole Phillip MD [address] [facility] [address] [place] [address] 04/30/2025 2:15 PM EST Office Visit [facility] [address] [place] [address] Reji De Luna, DO [address] [place] [address] documented as of this encounter Visit Diagnoses Not on filedocumented in this encounter Care Teams Prior Authorization Nurse Relationship Specialty Start Date End Date Kapil Patel DO [address] [place] [address] PCP - General Family Medicine 10/08/24 Kapil Patel DO [address] [place] [address] PCP - [place] [employer] 10/24/24Monday, FELISHA Mullen [address] [place] [address] Licensed Practical Nurse Family Medicine 11/25/2411/28 documented as of this encounter
--- OUTSIDE RECORDS SUMMARY | 2024-12-16 12:02 | XMS_ITS ---
Author Organization [facility] Address [address] [place] [address] Care Team Providers Care Manager Grocery Name Role Phone Kapil Patel DO Primary Care Provider +[phone]- [phone] Kapil Patel DO Unavailable [phone] Emergency Department Transitional Care Management (TCM) Status:Closed (Closed) Start date:12/03/2024 Enrollment date:12/04/2024 Enrollment reason:Identified using hospital discharge data End date:12/04/2024 Close reason:Assistance not needed Overview Discharged from [facility] ER on 12/03. Please contact within 2 days of discharge for ER JAME and schedule a follow-up appointment if needed. Continued Care and Services Coordination
--- OUTSIDE RECORDS SUMMARY | 2024-12-16 12:02 | XMS_ITS | Encounter Summary ---
Author Organization [facility] Address [address] [place] [address] Care Team Providers Care Global Marketing Specialist Name Role Phone Kapil Patel DO Primary Care Provider +- [phone] Kapil Patel DO Unavailable [phone], Paz ANDERSONN Unavailable [phone] Encounter Details Date Type Department Care Team (Late st Contact Info) Description 11/19/2024 Abstract [facility] [address] [place] [address] Kapil Patel, DO [address] [place] [address] Social History Tobacco Use Types Packs/Day Years [...] often do you attend [facility] or zoroastrian services? More than 4 times per year [...] Patient Health Questionnaire-2 Score 0 11/22/2024 [facility] of Occupat ional [...] Neurology [address] [place] [address] Cole Phillip MD [address] [place] [address] 04/30/2025 2:15 PM EST Office Visit [facility] [address] [place] [address] Reji De Luna, DO [address] [place] [address] documented as of this encounter Visit Diagnoses Not on filedocumented in this encounter Care Teams Global Marketing Specialist Relationship Specialty Start Date End Date Kapil Patel DO [address] [place] [address] PCP - General Family Medicine 10/08/24 Kapil Patel DO [address] [place] [address] PCP - [place] [employer] 10/24/24Monday, FELISHA Mullen [address] [place] [address] Licensed Practical Nurse Family Medicine 11/25/2411/28 documented as of this encounter
--- OUTSIDE RECORDS SUMMARY | 2024-12-16 12:02 | XMS_ITS | Encounter Summary ---
Author Organization [facility] Address [address] [place] [address] Care Team Providers Care Executive Vice President Of Sales Name Role Phone Kami Olvera MD Primary Care Provider [phone] David House MD Unavailable [phone] Rubens Singh MD Unavailable [phone] Source Comments In the event this information is protected by the Federal Confidentiality of Alcohol and Drug AbusePatient Records regulations: The Federal rules restrict any use of the information to criminally investigate or prosecute any alcohol or drug abuse patient.[facility] Encounter Details Date Type Department Care Team (Late st Contact Info) Description 08/16/2023 Patient Msg Gastroenterology [address] [place], [place] [id number] Theresa Rodríguez APRN.[employer] ARCHITECT [address] [place] [address] labs Social History Tobacco Use Types Packs/Day [...] place to sleep or slept in a mcc (including now)? No 09/08/2021 Area Deprivation Index Answer Date Juan rded National Score (1-100), lower number is lower ri sk 73 10/14/2022 State Score (1-10), lower number is lower risk 6 10/14/2022 Data from: https://www.neigh borhoodatlas.medicine.[facility].edu/. Last address used for calculation [...] on filedocumented in this encounter Care Teams Executive Vice President Of Sales Relationship Specialty Start Date End Date Kami Olvera MD [address] [place] [address] PCP - General Family Medicine 02/01/17 David House MD [address] [place] [address] Physician Hematology/Oncology 07/27/21 Rubens Singh MD [address] [place] [address] Physician Hematology/Oncology 10/08/21 [facility] Palliative Medicine Provider 08/30/21 documented as of this encounter
--- OUTSIDE RECORDS SUMMARY | 2024-12-16 12:02 | XMS_ITS | Encounter Summary ---
Author Organization [facility] Address [address] [place] [address] Care Team Providers Care Jack Prizer Name Role Phone Kami Olvera MD Primary Care Provider [phone] David House MD Unavailable [phone] Rubens Singh MD Unavailable [phone] Source Comments In the event this information is protected by the Federal Confidentiality of Alcohol and Drug AbusePatient Records regulations: The Federal rules restrict any use of the information to criminally investigate or prosecute any alcohol or drug abuse patient.[facility] Encounter Details Date Type Department Care Team (Late st Contact Info) Description 09/14/2023 Patient Msg [facility] [address] [place], [place] [id number] Provider, Ccf colonoscopy prep instructions Social History [...] lower risk 6 10/14/2022 Data from: https://www.neigh borhoodatlas.medicine.[facility].edu/. Last address used for calculation [address] [...] on filedocumented in this encounter Care Teams Jack Prizer Relationship Specialty Start Date End Date Kami Olvera MD [address] [place] [address] PCP - General Family Medicine 02/01/17 David House MD [address] [place] [address] Physician Hematology/Oncology 07/27/21 Rubens Singh MD [address] [place] [address] Physician Hematology/Oncology 10/08/21 [facility] Provider 08/30/21 documented as of this encounter
--- OUTSIDE RECORDS SUMMARY | 2024-12-16 12:02 | XMS_ITS | Encounter Summary ---
Author Organization [facility] Address [address] [place] [address] Care Team Providers Care Teamsite Developer Name Role Phone Kapil Patel DO Primary Care Provider [phone] Kapil Patel DO Unavailable [phone] Encounter Details Date Type Department Care Team (Late st Contact Info) Description 12/02/2024 Refill [facility] [address] [place] [address] Kapil Patel, DO [address] [place] [address] Pancreatic insufficiency (HCC) (Primary Dx) Social History [...] 11/12/2024 How often do you attend [facility] or jainism services? More than 4 times per year 11/12/2024 Do you belong to any clubs o r organizations such as baptism groups, unions, fraternal or athletic groups, or [...] Recorded Patient Health Questionnaire-2 Score 0 11/22/2024 [facility]at ionsc Health - Occupational Stress Questionnaire Answer Date [...] any time in the past 12 m [facility], were you homeless or living in a fci (including now)? No 11/12/2024 Comments Unknown Sex [...] 2:00 PM EST Office Visit [facility] [address] [place] [address] Cole Phillip MD [address] [place], [place] [address] 04/30/2025 2:15 PM EST Office Visit [facility] [address] [place] [address] Reji De Luna, DO [address] [place] [address] documented as of this encounter Visit Diagnoses Diagnosis Pancreatic insufficiency (HCC)- Primary Other specified disease of pancreas documented in this encounter Care Teams Teamsite Developer Relationship Specialty Start Date End Date Kapil Patel DO [address] [place] [address] PCP - General Family Medicine 10/08/24 Kapil Patel DO [address] [place] [address] PCP - Amita Roque 10/24/24 documented as of this encounter
--- OUTSIDE RECORDS SUMMARY | 2024-12-16 12:02 | XMS_ITS | Encounter Summary ---
Author Organization [facility] Address [address] [place] [address] Care Team Providers Care Marketing Outreach Coordinator Name Role Phone Kapil Patel DO Primary Care Provider +- [phone] Kapil Patel DO Unavailable [phone], Paz ANDERSONN Unavailable [phone] Encounter Details Date Type Department Care Team (Late st Contact Info) Description 11/20/2024 Abstract [facility] [address] [place] [address] Kapil Patel, DO [address] [place] [address] Social History Tobacco Use Types Packs/Day Years [...] week 11/12/2024 How often do you attend [facility] or presybeterian services? More than 4 times per year [...] Recorded Patient Health Questionnaire-2 Score 0 11/22/2024 [facility] of Occupat ional Health - [...] Neurology [address] [place] [address] Cole Phillip MD [address] [place] [address] 04/30/2025 2:15 PM EST Office Visit [facility] [address] [place] [address] Reji De Luna, DO [address] [place] [address] documented as of this encounter Visit Diagnoses Not on filedocumented in this encounter Care Teams Marketing Outreach Coordinator Relationship Specialty Start Date End Date Kapil Patel DO [address] [place] [address] PCP - General Family Medicine 10/08/24 Kapil Patel DO [address] [place] [address] PCP - [place] [employer] 10/24/24Monday, FELISHA Mullen [address] [place] [address] Licensed Practical Nurse Family Medicine 11/25/2411/28 documented as of this encounter
--- OUTSIDE RECORDS SUMMARY | 2024-12-16 12:02 | XMS_ITS | Encounter Summary ---
Author Organization [facility] Address [address] [place] [address] Care Team Providers Care Dialysis Registered Nurse Name Role Phone Kapil Patel DO Primary Care Provider +- [phone] Kapil Patel DO Unavailable [phone], Paz ANDERSONN Unavailable [phone] Encounter Details Date Type Department Care Team (Late st Contact Info) Description 11/19/2024 Abstract [facility] [address] [place] [address] Kapil Patel, DO [address] [place] [address] Social History Tobacco Use Types Packs/Day Years [...] 11/12/2024 How often do you attend [facility] or adventism services? More than 4 times [...] Score 0 11/22/2024 [facility] of Occupat ional Health - Occupational [...] any time in the past 12 m [facility], were you homeless or living in [...] [address] [place] [address] Cole Phillip MD [address] [place] [address] 04/30/2025 2:15 PM EST Office Visit [facility] [address] [place] [address] Reji De Luna, DO [address] [place] [address] documented as of this encounter Visit Diagnoses Not on filedocumented in this encounter Care Teams Dialysis Registered Nurse Relationship Specialty Start Date End Date Kapil Patel DO [address] [place] [address] PCP - General Family Medicine 10/08/24 Kapil Patel DO [address] [place] [address] PCP - [place] [employer] 10/24/24Monday, FELISHA Mullen [address] [place] [address] Licensed Practical Nurse Family Medicine 11/25/2411/28 documented as of this encounter
--- OUTSIDE RECORDS SUMMARY | 2024-12-16 12:02 | XMS_ITS | Encounter Summary ---
Author Organization [facility] Address [address] [place] [address] Care Team Providers Care Lens Assorter Name Role Phone JustoDevonte page Carlos Alberto RIVAS Primary Care Provider Kami Olvera MD Primary Care Provider [phone] Jazzy Dunn RN Unavailable [phone] David House MD Unavailable [phone] Odette Lopez PA-C Unavailable [phone] Rubens Singh MD Unavailable [phone] Source Comments In the event this information is protected by the Federal Confidentiality of Alcohol and Drug AbusePatient Records regulations: The Federal rules restrict any use of the information to criminally investigate or prosecute any alcohol or drug abuse patient.[facility] Encounter Details Date Type Department Care Team (Late st Contact Info) Description 04/24/2014 Patient Msg Medical Records [address] [place] [address] Provider, Ccf Social History Tobacco Use Types [...] documented as of this encounter Care Teams Lens Assorter Relationship Specialty Start Date End Date JustoDevonte DO PCP - General Family Medicine 05/03/13 01/31/17 Kami Olvera MD [address] [place] [address] PCP - General Family Medicine 02/01/17 Jazzy Dunn RN [address] [place] [address] Specialty Athletic Agent Hematology/Oncology 07/27/21 04/30/23 David House MD [address] [place] [address] Physician Hematology/Oncology 07/27/21 Odette Lopez PAPonchoC [address] [place] [address] Physician Green Hide Inspector Hematology/Oncology 07/27/21 Rubens Singh MD [address] [facility] [place] [address] Physician Hematology/Oncology 10/08/21 Fran [facility] Palliative Medicine Provider 08/30/21 documented as of this encounter
--- OUTSIDE RECORDS SUMMARY | 2024-12-16 12:02 | XMS_ITS | Encounter Summary ---
Author Organization [facility] Address [address] [place] [address] Care Team Providers Care Resource Management Planner Name Role Phone Kapil Patel DO Primary Care Provider [phone] Kapil Patel DO Unavailable [phone] Reason for Visit * Reason Comments Med Refill Encounter Details Date Type Department Care Team (Late st Contact Info) Description 12/07/2024 Refill [facility] [place] [place] [facility] [address] [place] [address] Cole Phillip MD [address] [place], [place] [address] Intractable chronic migraine without aura and with status migrainosus Social History Tobacco Use Types Packs/Day Years [...] How often do you attend chur or shinto services? More than 4 times per year [...] Recorded Patient Health Questionnaire-2 Score 0 11/22/2024 [facility] of Occupat ional Health - [...] any time in the past 12 m [facility], were you homeless or living in [...] 2:00 PM EST Office Visit [facility] [address] [facility] [address] [place] [address] Cole Phillip MD [address] [facility] [address] [place] [address] 04/30/2025 2:15 PM EST Office Visit [facility] [address] [place] [address] Reji De Luna, DO [address] [place] [address] documented as of this encounter Visit Diagnoses Diagnosis Intractable chronic migraine without aura and with status migrainosus documented in this encounter Care Teams Resource Management Planner Relationship Specialty Start Date End Date Kapil Patel DO [address] [place] [address] PCP - General Family Medicine 10/08/24 Kapil Patel DO [address] [place] [address] PCP - Amita Roque 10/24/24 documented as of this encounter
--- OUTSIDE RECORDS SUMMARY | 2024-12-16 12:02 | XMS_ITS | Encounter Summary ---
Author Organization [facility] Address [address] [place] [address] Care Team Providers Care Med Peds Name Role Phone Kapil Patel DO Primary Care Provider [phone] Kapil Patel DO Unavailable [phone] Encounter Details Date Type Department Care Team (Late st Contact Info) Description 12/08/2024 [facility] Result Encounter [facility] External [...] How often do you attend chur or methodist services? More than 4 times per year 11/12/2024 Do you belong to any clubs o r organizations such as scientology groups, unions, fraternal or athletic groups, or [...] Recorded Patient Health Questionnaire-2 Score 0 11/22/2024 [facility] of Occupat ional [facility] - Occupational Stress Questionnaire Answer Date [...] any time in the past 12 m [facility], were you homeless or living in a usp (including now)? No 11/12/2024 Comments Unknown Sex [...] [place] [facility] [address] [facility] [address] [place] [address] Cole Phillip MD [address] [facility] [address] [place], [place] [address] 04/30/2025 2:15 PM EST Office Visit [facility] [address] [place] [address] Reji De Luna, DO [address] [place] [address] documented as of this encounter Procedures Procedure Name Priority Date/Time Associated Diagnosis Comments [facility] CMP (CMP) (FOR REMOTE [facility] USE) Routine 12/08/2024 5:32 AM EDT ALL CBC WITH AUTO DIFF Routine 12/08/2024 5:32 AM EDT documented in this encounter Results * (ABNORMAL) [facility] CMP (CMP) (FOR REMOTE [facility] USE) (12/08/2024 5:32 AM EDT) Pathologist [facility] GLUCOSE 82 74 - 99 mg/dL [facility] [...] race variable for the IDMS-Traceable creatinine methods. https://jasn.asnjournals.org/content/early//ASN.0243773204 [facility] CALCIUM 8.8 8.6 - 10.6 mg/dL [facility] ALBUMIN 4.3 3.4 - 5.0 g/dL [facility] ALKALINE PHOSPHATASE 57 33 - 110 U/L [facility] TOTAL PROTEIN 6.7 6.4 - 8.2 g/dL [facility] AST 10 9 - 39 U/L [facility] BILIRUBIN,TOTAL 0.9 0.0 - 1.2 mg/dL [facility] ALT 10 7 - 45 U/L [facility] Comment:Patients treated wit h Sulfasalazine may generate falsely decreased results for ALT. Blood 12/08/2024 5:32 AM EDT 12/08/2024 6:27 AM EDT Narrative [facility] - 12/08/2024 7:00 AM EDT Original Ordering Provider: ERNIE BALDERAS us Generic External Data Provider TIFF casper Result TIFF [id number] [place] [id number] * ALL CBC WITH AUTO DIFF (12/08/2024 5:32 AM EDT) [facility] WBC 5.8 4.4 - 11.3 x10*3/uL [facility] NUCLEATED RBC 0.0 0.0 - 0.0 /[address] [facility] RBC 4.57 4.00 - 5.20 x10*6/uL [facility] HGB 12.5 12.0 - 16.0 g/dL [facility] HCT 36.5 36.0 - 46.0 % [facility] MCV 80 80 - 100 fL MCH 27.4 26.0 - 34.[address] [facility] MCHC 34.2 32.0 - 36.0 g/dL [facility] RDW-CV 11.9 11.5 - 14.5 % [facility] PLT 221 150 - 450 x10*3/uL Blood 12/08/2024 5:32 AM EDT 12/08/2024 6:27 AM EDT Narrative [facility] - 12/08/2024 6:43 AM EDT Original Ordering Provider: ERNIE BALDERAS us Generic External Data Provider [facility] F inal Result Performing Organization Address City/State/[facility] de Phone Number [facility] [address] [place] [id number] documented in this encounter Visit Diagnoses Not on filedocumented in this encounter Care Teams Med Peds Relationship Specialty Start Date End Date Kapil Patel DO [address] [facility] [address] [place] [address] PCP - General Family Medicine 10/08/24 Kapil Patel DO [address] [place] [address] PCP - [place] [employer] 10/24/24 documented as of this encounter
--- OUTSIDE RECORDS SUMMARY | 2024-12-16 12:02 | XMS_ITS | Encounter Summary ---
Author Organization [facility] Address [address] [place] [address] Care Team Providers Care Steel Turner Name Role Phone Kami Olvera MD Primary Care Provider [phone] David House MD Unavailable [phone] Rubens Singh MD Unavailable [phone] Source Comments In the event this information is protected by the Federal Confidentiality of Alcohol and Drug AbusePatient Records regulations: The Federal rules restrict any use of the information to criminally investigate or prosecute any alcohol or drug abuse patient.[facility] Encounter Details Date Type Department Care Team (Late st Contact Info) Description 09/12/2023 Get Medical Advice Gastroenterology [address] [place] [address] Theresa Rodríguez APRN.FIBER PICKER [address] [place] [address] Continuing Issue Social History Tobacco Use Types [...] lower risk 6 10/14/2022 Data from: https://www.[email or web address] borhoodatlas.medicine.[facility].edu/. Last address used [...] Patient Instructions * Patient Instructions* Theresa Rodríguez APRN.FIBER PICKER - 09/13/2023 12:45 PM EDT Images from [...] If you do not have a responsible transport truck driver (family member or friend) withyou to take you home, your exam cannot be done with sedation and will be cancelled. Please bring a list of all of your current medications, including any Clml-cjf-Oxyocov medications with you. Medications If you take [...] and rescheduled her colonoscopy to 09/27/23 at [facility] per below. Sent prep via my chart. documented in this encounter Plan of Treatment Not on file documented as of this encounter Visit Diagnoses Diagnosis Weight loss- Primary Loss of weight Generalized abdominal pain Abdominal pain, generalized documented in this encounter Care Teams Steel Turner Relationship Specialty Start Date End Date Kami Olvera MD [address] [place] [address] PCP - General Family Medicine 02/01/17 David House MD [address] [place] [address] Physician Hematology/Oncology 07/27/21 Rubens Singh MD [address] [place] [address] Physician Hematology/Oncology 10/08[facility] 08/30/21 documented as of this encounter
--- OUTSIDE RECORDS SUMMARY | 2024-12-16 12:02 | XMS_ITS | Encounter Summary ---
Author Organization [facility] Address [address] [place] [address] Care Team Providers Care General House Worker Name Role Phone JustoDevonte page Carlos Alberto RIVAS Primary Care Provider Kami Olvera MD Primary Care Provider [phone] Jazzy Dunn RN Unavailable [phone] David House MD Unavailable [phone] Odette Lopez PA-C Unavailable [phone] Rubens Singh MD Unavailable [phone] Source Comments In the event this information is protected by the Federal Confidentiality of Alcohol and Drug AbusePatient Records regulations: The Federal rules restrict any use of the information to criminally investigate or prosecute any alcohol or drug abuse patient.[facility] Encounter Details Date Type Department Care Team (Late st Contact Info) Description 04/01/2014 Patient Msg Medical Records [address] [place] [address] Provider, Ccf RE: Appointment Cancellation Request Social [...] as of this encounter Care Teams General House Worker Relationship Specialty Start Date End Date Devonte Kemp DO PCP - General Family Medicine 05/03/13 01/31/17 Kami Olvera MD [address] [place] [address] PCP - General Family Medicine 02/01/17 Jazzy Dunn RN [address] [place] [address] Specialty Senior Manufacturing Supervisor Hematology/Oncology 07/27/21 04/30/23 David House MD [address] [place] [address] [place] [address] Physician Hematology/Oncology 07/27/21 Odette Lopez, PA-C [address] [place] [address] Physician Intel Analyst Hematology/Oncology 07/27/21 Rubens Singh MD [address] [facility] [place] [address] Physician Hematology/Oncology 10/08/21 Fran [facility] Palliative Medicine Provider 08/30/21 documented as of this encounter
--- OUTSIDE RECORDS SUMMARY | 2024-12-16 12:02 | XMS_ITS | Encounter Summary ---
Author Organization [facility] Address [address] [place] [address] Care Team Providers Care Info Print Press Operator Name Role Phone Kapil Patel DO Primary Care Provider [phone] Kapil Patel DO Unavailable [phone] Paz ANDERSONN Unavailable [phone] Encounter Details Date Type Department Care Team (Late st Contact Info) Description 11/20/2024 Abstract [facility] [address] [place] [address] Kapil Patel, DO [address] [place] [address] Social History Tobacco Use Types Packs/Day Years [...] week 11/12/2024 How often do you attend [facility] or anabaptism services? More than 4 times per year 11/12/2024 Do you belong to any clubs o r organizations such as cheondoism groups, unions, fraternal or athletic groups, or [...] 0 11/22/2024 [facility] ional [facility] - Occupational [...] any time in the past 12 m [facility], were you homeless or living in a penitentiary (including now)? No 11/12/2024 Comments Unknown Sex [...] Neurology [address] [place] [address] Cole Phillip MD [address] [place] [address] 04/30/2025 2:15 PM EST Office Visit [facility] [address] [place] [address] Reji De Luna, DO [address] [place] [address] documented as of this encounter Visit Diagnoses Not on filedocumented in this encounter Care Teams Info Print Press Operator Relationship Specialty Start Date End Date Kapil Patel DO [address] [place] [address] PCP - General Family Medicine 10/08/24 Kapil Patel DO [address] [place] [address] PCP - [employer] 10/24/24Monday, FELISHA Mullen [address] [place] [address] Licensed Practical Nurse Family Medicine 11/25/2411/28 documented as of this encounter
--- OUTSIDE RECORDS SUMMARY | 2024-12-16 12:02 | XMS_ITS ---
Author Organization [facility] Address [facility] [place] [address] Care Team Providers Care Char Filter Operator Name Role Phone Kami Olvera MD Primary Care Provider [phone] David House MD Unavailable [phone] Rubens Singh MD Unavailable [phone] Active Problems * This document contains [...] these intermittent episodes. She was extubated to MD, then became anxious, tearful, saying she couldn't [...] and occasional poor IV access. Will notify [facility] of patient history. Depression 02/16/2021 Overview [...]
--- OUTSIDE RECORDS SUMMARY | 2024-12-16 12:02 | XMS_ITS | Encounter Summary ---
Author Organization [facility] Address [address] [place] [address] Care Team Providers Care Mill Tender Washing Name Role Phone JustoDevonte page Carlos Alberto RIVAS Primary Care Provider Kami Olvera MD Primary Care Provider [phone] Jazzy Dunn RN Unavailable [phone] David House MD Unavailable [phone] Odette Lopez PA-C Unavailable [phone] Rubens Singh MD Unavailable [phone] Source Comments In the event this information is protected by the Federal Confidentiality of Alcohol and Drug AbusePatient Records regulations: The Federal rules restrict any use of the information to criminally investigate or prosecute any alcohol or drug abuse patient.[facility] Encounter Details Date Type Department Care Team (Late st Contact Info) Description 04/01/2014 Patient Msg Medical Records [address] [place] [address] Provider, Ccf RE: Request an Appointment Social [...] documented as of this encounter Care Teams Mill Tender Washing Relationship Specialty Start Date End Date Devonte Kemp DO PCP - General Family Medicine 05/03/13 01/31/17 Kami Olvera MD [address] [place] [address] PCP - General Family Medicine 02/01/17 Jazzy Dunn RN [address] [place] [address] Specialty Mill Roll Operator Hematology/Oncology 07/27/21 04/30/23 David House MD [address] [place] [address] Physician Hematology/Oncology 07/27/21 Odette Lopez, PA-C [address] [place] [address] Physician Indirect Sales Exec Hematology/Oncology 07/27/21 Rubens Singh MD [address] [facility] [place] [address] Physician Hematology/Oncology 10/08/[address] [facility] Palliative Medicine Provider 08/30/21 documented as of this encounter
--- OUTSIDE RECORDS SUMMARY | 2024-12-16 12:02 | XMS_ITS | Encounter Summary ---
Author Organization [facility] Address [address] [place] [address] Care Team Providers Care Construction Management Assistant Name Role Phone Kapil Patel DO Primary Care Provider [phone] Kapil Patel DO Unavailable [phone] Reason for Visit * Reason Comments Med Change Request Encounter Details Date Type Department Care Team (Late st Contact Info) Description 12/07/2024 Refill [facility] [address] [place] [address] Kapil Patel, DO [address] [place] [address] Generalized pain Social History Tobacco Use Types Packs/Day Years [...] often do you attend [facility] or congregational services? More than 4 times [...] time in the past 12 m [facility], were you homeless or living in a jail (including now)? No 11/12/2024 Comments Unknown Sex and Gender Information Value Date Recorded Sex Assigned at Not on file Legal Sex Female 6:39 PM EDT Gender Identity Female 06/01/2022 6:39 PM EDT Sexual Orientation Not on file documented as of this encounter Miscellaneous Notes * Telephone Encounter - Gloria Cortez LPN - 12/09/2024 1:37 PM EDT 90 day sent per pt request documented in this encounter Plan of Treatment Upcoming Encounters Date Type Department Care Team (Late st Contact Info) Description 04/29/2025 2:00 PM EST Office Visit [facility] [place] [facility] [address] [place] [address] Cole Phillip MD [address] [place] [address] 04/30/2025 2:15 PM EST Office Visit [facility] [address] [place] [address] Reji De Luna, DO [address] [place] [address] documented as of this encounter Visit Diagnoses Diagnosis Generalized pain documented in this encounter Care Teams Construction Management Assistant Relationship Specialty Start Date End Date Kapil Patel DO [address] [place] [address] PCP - General Family Medicine 10/08/24 Kapil Patel DO [address] [place] [address] PCP - Amita Roque 10/24/24 documented as of this encounter
--- OUTSIDE RECORDS SUMMARY | 2024-12-16 12:02 | XMS_ITS | Encounter Summary ---
Author Organization [facility] Address [address] [place] [address] Care Team Providers Care Sheep And Wheat Farmer Name Role Phone Kapil Patel DO Primary Care Provider [phone] Kpail Patel DO Unavailable [phone] Encounter Details Date Type Department Care Team (Late st Contact Info) Description 12/02/2024 Telephone [facility] [address] [facility] [address] [place] [address] Kapil Paetl, DO [address] [place] [address] Social History Tobacco Use Types Packs/Day Years [...] often do you attend [facility] or confucianist services? More than 4 times per year 11/12/2024 Do you belong to any clubs o r organizations such as methodist groups, unions, fraternal or athletic groups, or [...] Recorded Patient Health Questionnaire-2 Score 0 11/22/2024 [facility] Questionnaire Answer Date [...] in the past 12 m [facility], were you homeless or living in a intermediate (including now)? No 11/12/2024 Comments Unknown Sex and Gender Information Value Date Recorded Sex Assigned at Not on file Legal Sex Female 6:39 PM EDT Gender Identity Female 06/01/2022 6:39 PM EDT Sexual Orientation Not on file documented as of this encounter Miscellaneous Notes * Telephone Encounter - Kapil Patel DO - 12/02/2024 1:17 PM EDT Iron normal. Liver enzymes/test normal Kidney function normal range. Normal pancreatic markers. Neg stool studies documented in this encounter Plan of Treatment Upcoming Encounters Date Type Department Care Team (Late st Contact Info) Description 04/29/2025 2:00 PM EST Office Visit [facility] [place] [facility] [facility] [address] [place] [address] Cole Phillip MD [address] [place] [address] 04/30/2025 2:15 PM EST Office Visit [facility] [address] [place] [address] Reji De Luna, DO [address] [place] [address] documented as of this encounter Visit Diagnoses Not on filedocumented in this encounter Care Teams Sheep And Wheat Farmer Relationship Specialty Start Date End Date Kapil Patel DO [address] [place] [address] PCP - General Family Medicine 10/08/24 Kapil Patel DO [address] [place] [address] PCP - Amita Roque 10/24/24 documented as of this encounter
--- OUTSIDE RECORDS SUMMARY | 2024-12-16 12:02 | XMS_ITS | Encounter Summary ---
Author Organization [facility] Address [address] [place] [address] Care Team Providers Care Rock Crusher Name Role Phone Kapil Patel DO Primary Care Provider [phone] Kapil Patel DO Unavailable [phone] Encounter Details Date Type Department Care Team (Late st Contact Info) Description 12/06/2024 Clinisync Result Encounter [facility] External Department [...] How often do you attend chur or bahai services? More than 4 times per year 11/12/2024 Do you belong to any clubs o r organizations such as latter day groups, unions, fraternal or athletic groups, or [...] Recorded Patient Health Questionnaire-2 Score 0 11/22/2024 [facility] ional [facility] - Occupational Stress Questionnaire Answer [...] any time in the past 12 m [facility], were you homeless or living [...] [facility] Neu[facility] [address] [facility] [address] [place] [address] Cole Phillip MD [address] [facility] [address] [place], [place] [address] 04/30/2025 2:15 PM EST Office Visit [facility] [address] [place] [address] Reji De Luna, DO [address] [place] [address] documented as of this encounter Procedures Procedure Name Priority Date/Time Associated Diagnosis Comments [facility] INFLUENZA A/B, COVID 2019 PCR,SYMPTOMATIC Routine 12/06/2024 5:22 PM EDT [facility] CMP (CMP) (FOR REMOTE [facility] USE) Routine 12/06/2024 5:19 PM EDT ALL MAGNESIUM Routine 12/06/2024 5:19 PM EDT ALL CBC WITH AUTO DIFF Routine 12/06/2024 5:19 PM EDT documented in this encounter Results * INFLUENZA A/B, COVID 2019 PCR,SYMPTOMATIC (12/06/2024 5:22 PM EDT) Pathologist [facility] INFLUENZA A, PCR Not Detected Not Detected [facility] INFLUENZA B, PCR Not Detected Not Detected [...] and has been validated for use at [facility]. Negative results do not preclude COVID-19/ Influenza A/B infections and should not be used as the sole basis for diagnosis, treatment, or other management decisions. Testing for SARS CoV-2 is recommended only for patients who meet current clinical and/or epidemiological criteria defined by federal, state, or local public health directives. Original Ordering Provider: ERNIE BALDERAS Generic External Data Provider MARSHANC F inal Result Performing Organization Address City/State/[facility] Co de Phone Number [facility] [address] [place] [address] * ALL MAGNESIUM (12/06/2024 5:19 PM EDT) Pathologist [facility] MAGNESIUM 2.13 1.60 - 2.40 mg/dL Blood 12/06/2024 5:19 PM EDT 12/06/2024 5:45 PM EDT Narrative [facility] - 12/06/2024 6:13 PM EDT Original Ordering Provider: ERNIE BALDERAS Generic External Data Provider [facility] F inal Result Performing Organization Address [facility]/ZIP Co de Phone Number TIFF [address] [place] [address] * (ABNORMAL) [facility] CMP (CMP) (FOR [facility]OTE [facility] USE) (12/06/2024 5:19 PM EDT) GLUCOSE 84 74 - 99 mg/dL [facility] SODIUM 141 136 - 145 mmol/L [facility] POTASSIUM 3.1(L) 3.5 - 5.3 mmol/L [facility] CHLORIDE 105 98 - 107 mmol/L [facility] BICARBONATE 27 21 - 32 mmol/L [facility] ANION GAP 12 10 - 20 mmol/L [facility] UREA NITROGEN 20 6 - 23 mg/dL [facility] CREATININE 0.65 0.50 - 1.05 mg/dL [facility] GFRAT >90 >60 mL/min/1.7 3m*2 [facility] Comment: Calculations of estimated GFR are performed using the 2020 CKD-EPI Study Refit equation without the race variable for the IDMS-Traceable creatinine methods. https://jasn.asnjournals.org/content/early//ASN.3730968133 [facility] CALCIUM 9.1 8.6 - 10.6 mg/dL [facility] ALBUMIN 4.5 3.4 - 5.0 g/dL [facility] ALKALINE PHOSPHATASE 60 33 - 110 U/L [facility] TOTAL PROTEIN 7.1 6.4 - 8.2 g/dL [facility] AST 10 9 - 39 U/L [facility] BILIRUBIN,TOTAL 0.6 0.0 - 1.2 mg/dL [facility] ALT 12 7 - 45 U/L [facility] Comment:Patients treated wit h Sulfasalazine may generate falsely decreased results for ALT. Blood 12/06/2024 5:19 PM EDT 12/06/2024 5:45 PM EDT Narrative [facility] - 12/06/2024 6:13 PM EDT Original Ordering Provider: ERNIE BALDERAS us Generic External Data Provider TIFF F inal Result Performing Organization Address [facility]/ZIP Co de Phone Number TIFF [address] [place] [address] * ALL CBC WITH AUTO DIFF (12/06/2024 5:19 PM EDT) WBC 8.4 4.4 - 11.3 x10*3/uL [facility] NUCLEATED RBC 0.0 0.0 - 0.0 /100 WBCs [facility] RBC 4.69 4.00 - 5.20 x10*6/uL [facility] HGB 13.0 12.0 - 16.0 g/dL [facility] HCT 37.5 36.0 - 46.0 % [facility] MCV 80 80 - 100 fL [facility] MCH 27.7 26.0 - 34.0 pg [facility] MCHC 34.7 32.0 - 36.0 g/dL [facility] RDW-CV 11.9 11.5 - 14.5 % [facility] PLT 221 150 - 450 x10*3/uL Blood 12/06/2024 5:19 PM EDT 12/06/2024 5:45 PM EDT Narrative [facility] - 12/06/2024 5:50 PM EDT Original Ordering Provider: ERNIE BALDERAS us Generic External Data Provider [facility] F inal Result Performing Organization Address City/State/[facility] Co de Phone Number [facility] [address] [place] [address] documented in this encounter Visit Diagnoses Not on filedocumented in this encounter Care Teams Rock Crusher Relationship Specialty Start Date End Date Kapil Patel DO [address] [place] [address] PCP - General Family Medicine 10/08/24 Kapil Patel DO [address] [place] [address] PCP - [place] [employer] 10/24/24 documented as of this encounter
--- OUTSIDE RECORDS SUMMARY | 2024-12-16 12:02 | XMS_ITS | Encounter Summary ---
Author Organization [facility] Address [address] [place] [address] Care Team Providers Care Machine Clerical Verifier Name Role Phone Kami Olvera MD Primary Care Provider [phone] David House MD Unavailable [phone] Rubens Singh MD Unavailable [phone] Source Comments In the event this information is protected by the Federal Confidentiality of Alcohol and Drug AbusePatient Records regulations: The Federal rules restrict any use of the information to criminally investigate or prosecute any alcohol or drug abuse patient.[facility] Encounter Details Date Type Department Care Team (Late st Contact Info) Description 08/06/2023 [place] [address] Provider, Cc MRI Screening Questionnaire Completion Required [...] from: https://www.neigh borhoodatlas.medicine.[facility].edu/. Last address used for calculation [address] [...] filedocumented in this encounter Care Teams Machine Clerical Verifier Relationship Specialty Start Date End Date Kami Olvera MD [address] [place] [address] PCP - General Family Medicine 02/01/17 David House MD [address] [place] [address] Physician Hematology/Oncology 07/27/21 Rubens Singh MD [address] [place] [address] Physician Hematology/Oncology 10/08/21 Fran [facility] Palliative Medicine Provider 08/30/21 documented as of this encounter
--- OUTSIDE RECORDS SUMMARY | 2024-12-16 12:03 | XMS_ITS | Clinical Summary ---
Author Organization [facility] Address [address] [place] [address] Care Team Providers Care Whirley Operator Name Role Phone Kami Olvera MD Primary Care Provider [phone] David House MD Unavailable [phone] Rubens Singh MD Unavailable [phone] Allergies Active Allergy Reactions Criticality Noted [...] these intermittent episodes. She was extubated to MI, then became anxious, tearful, saying she couldn't [...] occasional poor IV access. Will notify [place] anesthesia of patient history. Depression 02/16/2021 Overview [...] Department Care Team Description 10/15/2024 Telephone Hematology/Oncology [address] [place] [address] [place] [address] Randal Hu MD Referral from Last 3 Months Immunizations Immunization Administration [...] 6 10/14/2022 Data from: https://www.neigh borhoodatlas.medicine.[facility].edu/. Last address used for calculation [address] [...] history exists Medical Devices Explanted Type Area Admission Liaison Device Identifier Shelf Expiration Date Model / Serial / Lot Stent Wallflex 10mm 8.5fr Permalume Covering 40mm Biliary Rapid Exchange - [id number] Implanted:Qty: 1 on 09/10/2020 at [facility] Stent N/A: Bile Duct [employer] [facility] 07/26/2022 [id number] / / [id number] Description:D: 53129 Model: WallFlex Biliary RX Uncovered Stent System Generic: stent Model Number: [id number] (10) Models Summary: MR Conditional - See [...] in a 3.0 Patricia Magnetom Trio , Siemens [employer] MR system, software version Numaris/4, [employer] A30. The stents were in a location [...] at 64 MHz in a 1.5 Patricia BioIQ, software version Release 12.6.1.3 2010-02-18 whole body [...] stent. 961Click here for reference website07/08/2013 Mfr: DiBcom. Parent Co: Fax: Rob Entake 20fr Peg Pull Method Fenestrated Drape Standard - [id number] Implanted:Qty: 1 on 12/22/2020 at [facility] Tube N/A: Abdomen Kosmix ENDOSCOPIC TECH 04/19/2022 [id number] / / [id number] Description:peg Set Peg 24 24fr 5.5mm .035in Silicone 150cm Gastrostomy Pull Method - [id number] Implanted:Qty: 1 on 07/08/2021 at [facility] Tube N/A: Abdomen GetSocial [facility] 05/27/2022 PEG-24-PU LL-S / / [id number] Description:silicone Insurance [facility] Advance Directives Documents on File Type Date Recorded Patient Tax Intern Expl anation Advance Directive(s) 08/23/2021 Advance Directives * Full Code (Latest Code Status on File) Date Activated Date Inactivated Comments 05/19/2021 12:17 PM 05/23/2021 10:52 PM Question Answer Comments Full Code Order Discussed With: Surrogate Decisi on Maker Surrogate Decision Maker Name: dakota [facility] Care Teams Whirley Operator Relationship Specialty Start Date End Date Kami Olvera MD [address] [place] [address] PCP - General Family Medicine 02/01/17 David House MD [address] [place] [address] Physician Hematology/Oncology 07/27/21 Rubens Singh MD [address] [place] [address] Physician Hematology/Oncology [facility]/08[facility] 08[facility]30/21
--- OUTSIDE RECORDS SUMMARY | 2024-12-16 12:03 | XMS_ITS | Encounter Summary ---
Author Organization [facility] Address [address] [place] [address] Care Team Providers Care Verification Clerk Name Role Phone JustoDevonte page Carlos Alberto RIVAS Primary Care Provider Kami Olvera MD Primary Care Provider [phone] Jazzy Dunn RN Unavailable [phone] David House MD Unavailable [phone] Odette Lopez PA-C Unavailable [phone] Rubens Singh MD Unavailable [phone] Source Comments In the event this information is protected by the Federal Confidentiality of Alcohol and Drug AbusePatient Records regulations: The Federal rules restrict any use of the information to criminally investigate or prosecute any alcohol or drug abuse patient.[facility] Encounter Details Date Type Department Care Team (Late st Contact Info) Description 04/01/2014 Patient Msg Medical Records [address] [place] [address] Provider, Ccf RE: Appointment Cancellation Request Social [...] documented as of this encounter Care Teams Verification Clerk Relationship Specialty Start Date End Date Devonte Kemp DO PCP - General Family Medicine 05/03/13 01/31/17 Kami Olvera MD [address] [place] [address] PCP - General Family Medicine 02/01/17 Jazzy Dunn RN [address] [facility] [place] [address] Specialty Cone Sewer Hematology/Oncology 07/27/21 04/30/23 David House MD [address] [place] [address] [place] [address] Physician Hematology/Oncology 07/27/21 Odette Lopez, PA-C [address] [place] [address] Physician Panel Assembler Hematology/Oncology 07/27/21 Rubens Singh MD [address] [facility] [place] [address] Physician Hematology/Oncology 10/08/21 [facility] Palliative Medicine Provider 08/30/21 documented as of this encounter
--- OUTSIDE RECORDS SUMMARY | 2024-12-16 12:03 | XMS_ITS | Encounter Summary ---
Author Organization [facility] Address [address] [place] [address] Care Team Providers Care Automotive Project Engineer Name Role Phone JustoDevonte page Carlos Alberto RIVAS Primary Care Provider Kami Olvera MD Primary Care Provider [phone] Jazzy Dunn RN Unavailable [phone] David House MD Unavailable [phone] Odette Lopez PA-C Unavailable [phone] Rubens Singh MD Unavailable [phone] Source Comments In the event this information is protected by the Federal Confidentiality of Alcohol and Drug AbusePatient Records regulations: The Federal rules restrict any use of the information to criminally investigate or prosecute any alcohol or drug abuse patient.[facility] Encounter Details Date Type Department Care Team (Late st Contact Info) Description 04/01/2014 Patient Msg Medical Records [address] [place] [address] Provider, Ccf RE: Request an Appointment Social [...] documented as of this encounter Care Teams Automotive Project Engineer Relationship Specialty Start Date End Date Devonte Kemp DO PCP - General Family Medicine 05/03/13 01/31/17 Kami Olvera MD [address] [place] [address] PCP - General Family Medicine 02/01/17 Jazzy Dunn RN [address] [facility] [place] [place] [address] Specialty Leasing Sales Consultant Hematology/Oncology 07/27/21 04/30/23 David House MD [address] [facility] [place] [address] Physician Hematology/Oncology 07/27/21 Odette Lopez, PA-C [address] [facility] [place] [address] Physician Warehouseman Hematology/Oncology 07/27/21 Rubens Singh MD [address] [facility] [place] [address] Physician Hematology/Oncology 10/08/21 [facility] Palliative Medicine Provider 08/30/21 documented as of this encounter
--- OUTSIDE RECORDS SUMMARY | 2024-12-16 12:03 | XMS_ITS | Encounter Summary ---
Author Organization [facility] Address [address] [place] [address] Care Team Providers Care Material Control Supervisor Name Role Phone Kami Olvera MD Primary Care Provider [phone] David House MD Unavailable [phone] Rubens Singh MD Unavailable Source Comments In the event this information is protected by the Federal Confidentiality of Alcohol and Drug AbusePatient Records regulations: The Federal rules restrict any use of the information to criminally investigate or prosecute any alcohol or drug abuse patient.[facility] Encounter Details Date Type Department Care Team (Late st Contact Info) Description 06/28/2023 Patient Msg Gastroenterology [address] [facility] [place], [place] [id number] [place] [address] [place] [address] Prep instructions Social History Tobacco [...] lower risk 6 10/14/2022 Data from: https://www.neigh borhoodatlas.medicine.[facility].edu/. Last address used for calculation [address] [...] filedocumented in this encounter Care Teams Material Control Supervisor Relationship Specialty Start Date End Date Kami Olvera MD [address] [place] [address] PCP - General Family Medicine 02/01/17 David House MD [address] [place] [address] Physician Hematology/Oncology 07/27/21 Rubens Singh MD [address] [place] [address] Physician Hematology/Oncology 10/08/21 [facility] Palliative Medicine Provider 08/30/21 documented as of this encounter
--- OUTSIDE RECORDS SUMMARY | 2024-12-16 12:03 | XMS_ITS | Encounter Summary ---
Author Organization [facility] Address [address] [place] [address] Care Team Providers Care Airline Transport Pilot Name Role Phone Kami Olvera MD Primary Care Provider [phone] David House MD Unavailable [phone] Rubens Singh MD Unavailable [phone] Source Comments In the event this information is protected by the Federal Confidentiality of Alcohol and Drug AbusePatient Records regulations: The Federal rules restrict any use of the information to criminally investigate or prosecute any alcohol or drug abuse patient.[facility] Encounter Details Date Type Department Care Team (Late st Contact Info) Description 07/12/2023 GI Preprocedure Call [facility] Surgery [address] [place] [address] [place] [address] [place] [address] Social History Tobacco Use Types [...] place to sleep or slept in a jail (including now)? No 09/08/2021 Area Deprivation Index Answer Date Juan rded National Score (1-100), lower number is lower ri sk 73 10/14/2022 State Score (1-10), lower number is lower risk 6 10/14/2022 Data from: https://www.neigh borhoodatlas.medicine.[facility].edu/. Last address used for calculation [address] [...] on filedocumented in this encounter Care Teams Airline Transport Pilot Relationship Specialty Start Date End Date Kami Olvera MD [address] [place] [address] PCP - General Family Medicine 02/01/17 David House MD [address] [place] [address] Physician Hematology/Oncology 07/27/21 Rubens Singh MD [address] [place] [address] Physician Hematology/Oncology 10/08/21 [facility] Palliative Medicine Provider 08/30/21 documented as of this encounter
--- OUTSIDE RECORDS SUMMARY | 2024-12-16 12:03 | XMS_ITS | Encounter Summary ---
Author Organization [facility] Address [address] [place] [address] Care Team Providers Care Sales Development Manager Name Role Phone Kami Olvera MD Primary Care Provider [phone] David oHuse MD Unavailable [phone] Rubens Singh MD Unavailable [phone] Source Comments In the event this information is protected by the Federal Confidentiality of Alcohol and Drug AbusePatient Records regulations: The Federal rules restrict any use of the information to criminally investigate or prosecute any alcohol or drug abuse patient.[facility] Encounter Details Date Type Department Care Team (Late st Contact Info) Description 07/13/2023 Get Medical Advice Gastroenterology [address] [place] [address] Theresa Rodríguez APRN.FIRST AID ATTENDANT [address] [place] [address] Stomach Issues Social History Tobacco Use Types [...] place to sleep or slept in a half-way (including now)? No 09/08/2021 Area Deprivation Index Answer Date Juan rded National Score (1-100), lower number is lower ri sk 73 10/14/2022 State Score (1-10), lower number is lower risk 6 10/14/2022 Data from: https://www.neigh borhoodatlas.medicine.[facility].edu/. Last address used for calculation [address] [...] and recommendations were discussed with the patient. [facility] 06/23/2023 ASSESSMENT/PLAN: She is accompanied by [...] 2V ROUTINE SUPINE W UPRIGHT/DECUB/CTL Theresa Rodríguez APRN.FIRST AID ATTENDANT documented in this encounter Plan of Treatment Not on file documented as of this encounter Visit Diagnoses Not on filedocumented in this encounter Care Teams Sales Development Manager Relationship Specialty Start Date End Date Kami Olvera MD [address] [place] [address] PCP - General Family Medicine 02/01/17 David House MD [address] [place] [address] Physician Hematology/Oncology 07/27/21 Rubens Singh MD [address] [place] [address] Physician Hematology/Oncology 10/08/21 [facility] Pall[facility] Provider 08/30/21 documented as of this encounter
== END 2024-11-20 17:19 | disposition home or self-care (01) ==
LOC: ER 23:35 → MS 11-19 12:16
PROVIDERS: Internal Medicine; Nurse Practitioner Family; Admitting Provider Internal Medicine; Emergency Provider Emergency Medicine; PCP Family Medicine; Visit Provider Internal Medicine
DX: K59.03 Drug induced constipation (principal); C81.90 Hodgkin lymphoma, unspecified, unspecified site; T40.2X5A Adverse effect of other opioids, initial encounter; R11.2 Nausea with vomiting, unspecified; R19.7 Diarrhea, unspecified; Z90.49 Acquired absence of other specified parts of digestive tract; F32.A Depression, unspecified; Z63.4 Disappearance and death of family member; Z79.899 Other long term (current) drug therapy; R10.31 Right lower quadrant pain; R40.4 Transient alteration of awareness; G43.909 Migraine, unspecified, not intractable, without status migrainosus
CPT/HCPCS: 36415; 36600; 70450; 70496; 70498; 74018; 74177; 80053; 80307; 81003; 82805; 83605; 83690; 83735; 84703; 85025; 85027; 86140; 96361; 96374; 96375; 99285; G0378; J1171; J1230; J1335; J1650; J1885; J2212; J2405; J3010; Q9967

== ENCOUNTER 2024-12-05 10:32 | Outpatient (REF) | payer BC, SELFPAY ==
--- OUTSIDE RECORDS SUMMARY | 2024-11-22 10:30 | XMS_ITS | Encounter Summary ---
Author Organization [facility] Address [address] [place] [address] Care Team Providers Care Hand Bootmaker Name Role Phone Stefany Patel DO Primary Care Provider [phone] Stefany Patel DO Unavailable [phone] Reason for Visit * Reason Comments ER Follow-up Encounter Details Date Type Department Care Team (Late st Contact Info) Description 11/22/2024 10:30 AM EDT Office Visit [facility] [address] [place] [id number] Stefany Patel, DO [address] [place] [address] Diarrhea, unspecified type (Primary Dx); Chronic fatigue Social History Tobacco Use Types Packs/Day Years Used Date Smoking Tobacco: Never Alcohol Use Standard Drinks/Week Comments Not Currently 0 (1 standard drink = 0.6 oz pur e alcohol) B1300 Health Literacy Answer Date Recor ded How often do you need to hav e someone help you when you read instructions, pamphlets, or other written material from your doctor or pharmacy? Never 11/12/2024 Humiliation, Afraid, Rape, and Kick questionnair e Answer Date Recorded Within the last year, have y ou been afraid of your partner or ex-partner? No 11/12/2024 Within the last year, have y ou been humiliated or emotionally abused in other ways by your partner or ex-partner? No Within the last year, have y ou been kicked, hit, slapped, or otherwise physically hurt by your partner or ex-partner? No 11/12/2024 Within the last year, have y ou been raped or forced to have any kind of sexual activity by your partner or ex-partner? No 11/12/2024 Social Connection and Isolat ion Panel [NHANES] Answer Date Recorded In a typical week, how many times do you talk on the phone with family, friends, or neighbors? More than three times a week 11/12/2024 How often do you get togethe r with friends or relatives? Three times a week 11/12/2024 How often do you attend [facility] or ca[facility] services? More than 4 times per year 11/12/2024 Do you belong to any clubs o r organizations such as gnosticist groups, unions, fraternal or athletic groups, or school groups? No 11/12/2024 Attends Club or Organization Meetings Not on alma rosa e 11/12/2024 Are you , , di vorced, , never , or living with a partner? Never 11/12/2024 AUDIT-C Answer Date Recorded Q1: How often do you have a drink containing alcohol? Never 11/12/2024 Q2: How many drinks containi ng alcohol do you have on a typical day when you are drinking? Patient does not drink Q3: How often do you have si x or more drinks on one occasion? Never 11/12/2024 Overall Financial Resource Strain (CARDIA) Answe r Date Recorded How hard is it for you to pa y for the very basics like food, housing, medical care, and heating? Not hard at all 11/12/2024 PHQ-2 Answer Date Recorded Patient Health Questionnaire-2 Score 0 11/22/2024 [facility] - Occupational Stress Questionnaire Answer Date Recorded Do you feel stress - tense, restless, nervous, or anxious, or unable to sleep at night because your mind is troubled all the time - these days? Very much 11/12/2024 Exercise Vital Sign Answer Date Recorde d On average, how many days pe r week do you engage in moderate to strenuous exercise (like a brisk walk)? 1 day 11/12/2024 On average, how many minutes do you engage in exercise at this level? 10 min 11/12/2024 Hunger Vital Sign Answer Date Recorded Within the past 12 months, y ou worried that your food would run out before you got the money to buy more. Never true 11/13/19 25 Within the past 12 months, t he food you bought just didn't last and you didn't have money to get more. Never true 11/12/2024 PRAPARE - Transportation Answer Date Re corded In the past 12 months, has l ack of transportation kept you from medical appointments or from getting medications? No 10/19 In the past 12 months, has l ack of transportation kept you from meetings, work, or from getting things needed for daily living? No 11/12/2024 Housing Stability Vital Sign Answer Andrade e Recorded In the last 12 months, was t here a time when you were not able to pay the mortgage or rent on time? No 11/12/2024 Number of Times Moved in the Last Year Not on fi le 11/12/2024 At any time in the past 12 m [facility], were you homeless or living in a long term (including now)? No 11/12/2024 Comments Unknown Sex and Gender Information Value Date Recorded Sex Assigned at Not on file Legal Sex Female 6:39 PM EDT Gender Identity Female 06/01/2022 6:39 PM EDT Sexual Orientation Not on file documented as of this encounter Last Filed Vital Signs Vital Sign Reading Time Taken Comments Blood Pressure 122/70 11/22/2024 10:46 AM EDT Pulse 62 11/22/2024 10:46 AM EDT Temperature 36.5 C (97.7 F) 11/22/2024 10:46 AM EDT Respiratory Rate - - Oxygen Saturation 97% 11/22/2024 10:46 AM EDT Inhaled Oxygen Concentration - - Weight 63 kg (139 lb) 11/22/2024 10:46 AM EDT Height 170.2 cm (5' 7 ) 11/22/2024 10:46 AM EDT Body Mass Index 21.77 11/22/2024 10:46 AM EDT documented in this encounter Functional Status * Over the past 2 weeks, how often have you been bothered by any of the following problems? Question Answer Date of Assessment Author Little interest or pleasure in doing things Not at all 11/22/2024 11:04 AM EDT Gloria Cortez LPN Feeling down, depressed, or hopeless Not at all 11/22/2024 11:04 AM EDT Ronnell Cortez LPN Patient Health Questionnaire-2 Score 0 11/22/2024 11:04 AM EDT Elizabeth Cortez LPN documented as of this encounter Progress Notes * Stefany Coloradokorina, DO - 11/22/2024 10:30 AM EDT Images from the original note were not included. Negro Stacy is a 29 y.o. female presents with chief complaint of Chief Complaint Patient presents with ER Follow-up ?Quick Links Last Note in Specialty Snapshot Edit RFV/CC Edit Screenings Current Meds ?Quick Links Full Problem List Allergy Cardiology GI Headache ?Quick Links Add Vitals Timeline (Adult) Labs Imaging Results Review Trend Vitals ?? Avoid pulling in long tables of results. Comment on relevant results to support your medical decision making. Negro was seen today for er follow-up. Diagnoses and all orders for this visit: Diarrhea, unspecified type - Comprehensive metabolic panel - Ferritin - Vitamin B12 - Magnesium - Stool culture - Ova and parasites with giardia antigen - Amylase - Lipase - Clostridium difficile toxin - Iron + transferrin + TIBC - sucralfate (Carafate) 1 GM/10ML suspension; Take 10 mL (1 g) by mouth in the morning and 10 mL (1g) at noon and 10 mL (1 g) in the evening and 10 mL (1 g) before bedtime. Take with meals. Do all this for 14 days. - linaCLOtide (Linzess) 72 MCG capsule; Take 1 capsule (72 mcg) by mouth in the morning. Take before meals. Do not crush or chew. - H. pylori antigen, stool - CALPROTECTIN STOOL Chronic fatigue - Comprehensive metabolic panel - Ferritin - Vitamin B12 - Folate - Magnesium - Stool culture - Ova and parasites with giardia antigen - Amylase - Lipase - Clostridium difficile toxin - Iron + transferrin + TIBC - sucralfate (Carafate) 1 GM/10ML suspension; Take 10 mL (1 g) by mouth in the morning and 10 mL (1g) at noon and 10 mL (1 g) in the evening and 10 mL (1 g) before bedtime. Take with meals. Do all this for 14 days. - linaCLOtide (Linzess) 72 MCG capsule; Take 1 capsule (72 mcg) by mouth in the morning. Take before meals. Do not crush or chew. - H. pylori antigen, stool - CALPROTECTIN STOOL Assessment & Plan 1. Abdominal pain: The abdominal discomfort is likely due to nerve sensitivity in the gastrointestinal tract, rather than pancreatic issues. Physical exam findings and CT scan results did not show signs of pancreatic inflammation or strictures. The possibility of an ulcer causing diarrhea and malabsorption was discussed. Stool studies will be ordered to rule out H. pylori infection and other potential causes. A prescription for Carafate 1 g, to be taken up to three times daily, will be provided. A lower dose of Linzess will be prescribed to manage bowel movements. If Carafate alleviates symptoms, a scope procedure may be necessary to confirm the presence of an ulcer. If there is no significant improvement, a re-evaluation of pancreatic markers will be conducted. MEDICATION SUMMARY: Medication Changes As of 11/22/2024 11:38 AM Refills Start Date End Date Added: linaCLOtide (Linzess) 72 MCG capsule 11 11/22/2024 11/22/2025 Take 1 capsule (72 mcg) by mouth in the morning. Take before meals. Do not crush or chew. - Oral Added: sucralfate (Carafate) 1 GM/10ML suspension 0 11/22/2024 12/06/2024 Take 10 mL (1 g) by mouth in the morning and 10 mL (1 g) at noon and 10 mL (1 g) in the evening and10 mL (1 g) before bedtime. Take with meals. Do all this for 14 days. - Oral Discontinued or Completed: ciprofloxacin (Cipro) 500 MG tablet Discontinued or Completed: ondansetron ODT (Zofran-ODT) 4 MG disintegrating tablet Patient-reported medication Medication List at End of Visit As of 11/22/2024 11:38 AM Refills Start Date End Date buPROPion (Wellbutrin) 100 MG tablet 0 09/02/2024 -- TAKE 1 TABLET (100 MG) BY MOUTH IN THE MORNING AND BEFORE BEDTIME dicyclomine (Bentyl) 10 MG capsule -- 11/13/2024 -- Patient-reported medication galcanezumab (Emgality) 120 MG/ML prefilled syringe 1 10/22/2024 -- INJECT 1 ML SUBCUTANEOUSLY ONCE A MONTH FOR 90 DAYS No prior authorization was found for this prescription. Found prior authorization for another prescription for the same medication: Payer Waiting for Response HYDROmorphone (Dilaudid) 2 MG tablet -- 11/05/2024 -- TAKE 1 TO 2 TABLETS BY MOUTH EVERY 6 HOURS NEEDED FOR PAIN for 20 days Patient-reported medication linaCLOtide (Linzess) 72 MCG capsule 11 11/22/2024 11/22/2025 Take 1 capsule (72 mcg) by mouth in the morning. Take before meals. Do not crush or chew. - Oral Imodium A-D 2 MG tablet -- 11/13/2024 11/22/2024 Take 2 mg by mouth - Oral Patient-reported medication pantoprazole (ProtoNix) 40 MG EC tablet 0 11/14/2024 12/14/2024 Take 1 tablet (40 mg) by mouth Daily Do not crush, chew, or split. - Oral polyethylene glycol, PEG, 3350 (Glycolax) 17 GM/SCOOP powder -- 11/20/2024 -- Patient-reported medication promethazine (Phenergan) 25 MG tablet -- 11/16/2024 -- Patient-reported medication sucralfate (Carafate) 1 GM/10ML suspension 0 11/22/2024 12/06/2024 Take 10 mL (1 g) by mouth in the morning and 10 mL (1 g) at noon and 10 mL (1 g) in the evening and10 mL (1 g) before bedtime. Take with meals. Do all this for 14 days. - Oral Ubrogepant (Ubrelvy) 100 MG tablet 3 10/23/2024 -- TAKE 1 TAB NEEDED FOR MIGRAINE. MAY REPEAT ONCE IN 2 HOURS. MAX 2 PER HEADACHE ,4 PER WEEK Notes to Pharmacy: Our office will submit for for authorization venlafaxine XR (Effexor XR) 225 MG 24 hr tablet 1 06/12/2024 -- TAKE 1 TABLET BY MOUTH EVERY DAY WITH FOOD zolpidem (Ambien) 10 MG tablet 3 08/08/2024 -- 1 tab prn at bedtime Notes to Pharmacy: #20 for 30 days supply. STEFANY PATEL D.O. This note was entered using [employer] copilot. Grammatical and dictation errors maybe present in translation *I have reviewed and reconciled the history and medication list with the patient today* HPI History of Present Illness Pt here to follow up after ER visits d/t abdominal pain (RUQ), N/V/D. CT ordered 11/13 (negative for acute findings). -Pt was seen 11/13/24 ([facility])- DX: abdominal pain, 11/16/24 ([facility] ER)- DX: Gastroenteritis, and 11/18/24 ([facility] ER)-DX: Abdominal pain. -11/13 ER visit pt was prescribed Bentyl and Zofran. Medication did not help. -11/16 ER visit Promethazine 25mg prn was prescribed. Zofran was discontinued. Medication did not help. Diarrhea has been present for about 2 weeks. Abdominal pain has worsened which caused vomiting. Feels like she has been hit by a bus. Pt was told at the ER this last time that she was constipated, but she was having diarrhea. Has notbeen eating. Still dealing with diarrhea (having a BM about 9-10x a day). Pt states walking into the building really wore her out and she is concerned. Will feel a little better after a BM, but shortly after pain returns. Noticed blood in her stool- blood has been present for about 1-2 days. Blood is bright red in color. Has been getting chills, then sweating a moment later. Only time she was feeling better was when she was getting fluids at the ER. Has been trying to drink more water, but no matter how much she drinks it does not feel like enough. Last time she vomited was a couple days ago. Woke up this morning with a stiff neck. Stiff neck is still present. Stiffness has not changed since getting up this morning. Pt not sure if the neck stiffness had anything to do with her current symptoms. The patient is a 29-year-old female who presents for a follow-up visit. She was admitted to the hospital due to constipation and diarrhea. During her admission, CT scans and blood work were performed, revealing a slight elevation in her lipase levels. She experiences mild pain when she does not eat, but her appetite is currently low. She was informed that her abdominalpain was likely due to constipation. An x-ray showed no stool, even though she had not had a bowel movement. She has not taken Movantik. She has been prescribed Bentyl, antiemetics, and antispasmodics. Her last blood work was done earlier this week. She reports feeling extremely fatigued, as if shehas been hit by a bus. She does not have any fevers, chills, or coughs. She woke up with a stiff neck today. She does not have any unusual rashes. She felt better when receiving fluids at the hospital, but her condition worsened after returning home. She has previously taken Carafate. No stool studies have been conducted. She was advised to continue taking MiraLAX, but she is unsure why this is necessary given her diarrhea. She has tried Linzess more frequently than Movantik. SUBJECTIVE: Current Medications: Allergies/Social History: ROS Current Outpatient Medications Medication Instructions buPROPion (Wellbutrin) 100 MG tablet TAKE 1 TABLET (100 MG) BY MOUTH IN THE MORNING AND BEFORE BEDTIME dicyclomine (Bentyl) 10 MG capsule galcanezumab (Emgality) 120 MG/ML prefilled syringe INJECT 1 ML SUBCUTANEOUSLY ONCE A MONTH FOR 90 DAYS HYDROmorphone (Dilaudid) 2 MG tablet TAKE 1 TO 2 TABLETS BY MOUTH EVERY 6 HOURS NEEDED FOR PAIN for 20 days linaCLOtide (LINZESS) 72 mcg, Oral, Daily before breakfast, Do not crush or chew. pantoprazole (PROTONIX) 40 mg, Oral, Daily, Do not crush, chew, or split. polyethylene glycol, PEG, 3350 (Glycolax) 17 GM/SCOOP powder promethazine (Phenergan) 25 MG tablet sucralfate (CARAFATE) 1 g, Oral, 4 times daily with meals and nightly Ubrogepant (Ubrelvy) 100 MG tablet TAKE 1 TAB NEEDED FOR MIGRAINE. MAY REPEAT ONCE IN 2 HOURS. MAX 2 PER HEADACHE ,4 PER WEEK venlafaxine XR (Effexor XR) 225 MG 24 hr tablet TAKE 1 TABLET BY MOUTH EVERY DAY WITH FOOD zolpidem (Ambien) 10 MG tablet 1 tab prn at bedtime Allergies Allergen Reactions Diphenhydramine Anaphylaxis, Rash, Hives and Other Dihydroergotamine Unknown Triptans Other Reaction(s): Unknown Dhea Rash and Unknown Iodine Rash Social History Tobacco Use Smoking status: Never Vaping Use Vaping status: Never Used Substance Use Topics Alcohol use: Not Currently Drug use: Never Review of Systems Constitutional: Positive for fatigue. HENT: Negative for rhinorrhea. Respiratory: Negative for cough and shortness of breath. Cardiovascular: Negative for chest pain. Gastrointestinal: Positive for abdominal distention, abdominal pain, diarrhea, nausea and vomiting. Genitourinary: Negative for dysuria. Musculoskeletal: Positive for arthralgias and back pain. Skin: Negative for rash. Neurological: Negative for dizziness. All other systems reviewed and are negative. Past Medical History: Surgical History: Depression Screen/FHx Past Medical History: Diagnosis Date Acquired hallux valgus 09/27/2024 Acute constipation 09/27/2024 Cellulitis at gastrostomy tube site (HCC) 09/06/2021 Assessment- patient with pus from around PEG tube site Plan EGD with removal in am Gastroparesis Gastroparesis 02/16/2021 Hodgkin's lymphoma (HCC) Stage 2 Injury to bile duct and gallbladder, initial encounter 01/24/2017 Malnutrition of moderate degree ([facility]-HCC) 12/23/2020 Improved PO intake, off tube feed for weeks Weight stable - Consult to nutrition for intake assessment - Regular diet - DC PEG Migraines Psychogenic nonepileptic seizure 02/16/2021 Last Assessment & Plan: H/O psychogenic nonepileptic seizures, last occurring in 2019 per patient. States that her episode of jaw clenching following surgery in October was different than her previous seizure-like activity. She had normal EEG in October. Syncope Past Surgical History: Procedure Laterality Date CT ANGIO HEAD 06/22/2021 CT ANGIO HEAD 06/22/2021 CT ANGIOGRAM NECK 06/22/2021 CT ANGIOGRAM NECK 06/22/2021 EGD 2016 ERCP 2020 with stent placement FEEDING TUBE REPLACEMENT 05/2021 IR BILIARY JEJUNAL ACCESS Bile duct reconstruction post complications from cholecystectomy MR ANGIOGRAM HEAD W IV CONTRAST 11/01/2015 MR VENOUS HEAD W/ 11/01/2015 [place] EDG PERCUTANEOUS PLACEMENT GASTROSTOMY TUBE 12/2020 replaced 08/2021 [place] LAP,CHOLECYSTECTOMY 2016 Depression: Not at risk (11/22/2024) PHQ-2 PHQ-2 Score: 0 Family History Problem Relation Name Age of Onset Atrial fibrillation Mother Hypertension Father Diabetes Paternal Grandfather Cancer Paternal Grandfather OBJECTIVE: 11/22/2024 10:46 AM 11/14/2024 8:43 AM 10/30/2024 2:09 PM 10/28/2024 2:53 PM 10/22/2024 4:14 PM 10/16/2024 2:50 PM 10/09/2024 2:02 PM Vitals BMI 21.77 kg/m2 22.43 kg/m2 21.93 kg/m2 21.93 kg/m2 21.93 kg/m2 23.49 kg/m2 23.49 kg/m2 BSA (m2) 1.73 m2 1.75 m2 1.73 m2 1.73 m2 1.73 m2 1.79 m2 1.79 m2 Systolic 122 112 Diastolic 70 78 Heart Rate 62 94 SpO2 97 % 99 % Temp 97.7 ??F 97.2 ??F Resp 16 16 16 Height (in) 5' 7 5' 7 5' 7 5' 7 5' 7 5' 7 5' 7 Weight (lb) 139 143.2 140 140 140 150 150 Visit Report Report Report Report Report Report Report Report Physical Exam General Appearance: Alert and oriented. Pleasant affect. No acute distress. Well nourished. Head: Atraumatic normal cephalic. No masses or swelling. Eyes: EOMI, sclera white, conjunctiva clear, no injection. Pupils relatively equal size. Ears: External ears normal. No signs or trauma or infection. Nose: Nasal mucosal pink and moist, No discharge or congestion. Normal appearance of the soft tissue of the nose. Throat: Lips moist, Teeth and gums in good condition. Neck: Supple, no obvious range of motion deficits, no swelling or pain. Respiratory: Clear to auscultation bilaterally, no wheezes, rhonchi or crackles. Good breaths sounds throughout lung jha. Cardiovascular: Regular rate and rhythm, no murmurs. Normal S1, S2. Gastrointestinal: Tenderness noted in the right upper quadrant. Musculoskeletal/Extremities: No gross deformities or malalignment, normal ambulation, no swelling, no deformities. Skin: Warm and dry, no rashes. Neurological: Cranial nerves II-VII grossly intact, no gross neurologic abnormalities or focal defects. Psychiatric: Cooperative, pleasant, no signs of major mood disorder. documented in this encounter Plan of Treatment Upcoming Encounters Date Type Department Care Team (Late st Contact Info) Description 04/29/2025 2:00 PM EST Office Visit [facility] [address] [place] [address] Cole Phillip MD [address] [facility] [address] [place] [address] 04/30/2025 2:15 PM EST Office Visit [facility] [address] [place] [id number] Reji De Luna DO [address] [place] [address] documented as of this encounter Procedures Procedure Name Priority Date/Time Associated Diagnosis Comments RESULT Routine 11/26/2024 10:48 AM EDT RESULT Routine 11/26/2024 10:48 AM EDT RESULT Routine 11/26/2024 10:48 AM EDT OVA AND PARASITES WITH GIARDIA ANTIGEN Routine 11/26/2024 10:48 AM EDT Diarrhea, unspecified type Chronic fatigue CALPROTECTIN STOOL Routine 11/26/2024 10 :48 AM EDT Diarrhea, unspecified type Chronic fatigue IRON + TRANSFERRIN + TIBC Routine 11/26/2024 10:48 AM EDT Diarrhea, unspecified type Chronic fatigue H. PYLORI ANTIGEN, STOOL Routine 11/26/2024 10:48 AM EDT Diarrhea, unspecified type Chronic fatigue CLOSTRIDIUM DIFFICILE TOXIN Routine 11/26/2024 10:48 AM EDT Diarrhea, unspecified type Chronic fatigue STOOL CULTURE Routine 11/26/2024 10:48 AM EDT Diarrhea, unspecified type Chronic fatigue MAGNESIUM Routine 11/26/2024 10:48 AM EDT Diarrhea, unspecified type Chronic fatigue LIPASE Routine 11/26/2024 10:48 AM EDT Diarrhea, unspecified type Chronic fatigue FOLATE, SERUM Routine 11/26/2024 10:48 AM EDT Chronic fatigue FERRITIN Routine 11/26/2024 10:48 AM EDT Diarrhea, unspecified type Chronic fatigue VITAMIN B12 Routine 11/26/2024 10:48 AM EDT Diarrhea, unspecified type Chronic fatigue AMYLASE Routine 11/26/2024 10:48 AM EDT Diarrhea, unspecified type Chronic fatigue COMPREHENSIVE METABOLIC PANEL Routine 11/26/2024 10:48 AM EDT Diarrhea, unspecified type Chronic fatigue documented in this encounter Results * RESULT (11/26/2024 10:48 AM EDT) RESULT 1 Comment [facility] Comment: No ova, cysts, or parasites seen. One negative specimen does not rule out the possibility of a parasitic infection. 11/26/2024 10:4 8 AM EDT 11/26/2024 Narrative [facility] - 12/03/2024 8:07 AM EDT Performed at: 01 - [facility] [id number] Dye Feeder: Shiva Christopher PhD, Phone: [phone] us Stefany Patel DO LAB BLOOD ORDERABLES Final Result [facility] * RESULT (11/26/2024 10:48 AM EDT) RESULT 1 Comment [facility] Comment:No Campylobacter spe cies isolated. 11/26/2024 10:4 8 AM EDT 11/26/2024 Narrative [facility] - 12/03/2024 8:07 AM EDT Performed at: [address] [id number] Dye Feeder: Shiva Christopher PhD, Phone: [phone] Stefany Patel DO LAB BLOOD ORDERABLES Final Result Performing Organization Address [facility] Phone Number [facility] * RESULT (11/26/2024 10:48 AM EDT) RESULT 1 Comment [facility] Comment:No Salmonella or Johanny gella recovered. 11/26/2024 10:4 8 AM EDT 11/26/2024 Narrative [facility] - 12/03/2024 8:07 AM EDT Performed at: [address] [id number] Dye Feeder: Shiva Christopher PhD, Phone: [phone] Stefany Patel DO LAB BLOOD ORDERABLES Final Result Performing Organization Address [facility] Phone Number [facility] * CALPROTECTIN STOOL (11/26/2024 10:48 AM EDT) CALPROTECTIN, STOOL 15 0 - 120 ug/g [facility] Comment: Concentration Interpretation Follow-Up < 5 - 50 ug/g Normal None >50 -120 ug/g Borderline Re-evaluate in 4-6 weeks >120 ug/g Abnormal Repeat as clinically indicated Stool Rectal contents / Unknown 11/26/2024 10:48 AM EDT 11/26/2024 Narrative [facility] - 12/03/2024 8:07 AM EDT Performed at: [address] [id number] Dye Feeder: Carlos Guerra MD, Phone: [phone] us Stefany Patel DO LAB BODY FLUIDS AND STOOLS ORDERABLES Final Result Performing Organization Address [facility] de Phone Number [facility] * H. pylori antigen, stool (11/26/2024 10:48 AM EDT) H. PYLORI STOOL AG, EIA Negative Negative [facility] Stool Rectal contents / Unknown 11/26/2024 10:48 AM EDT 11/26/2024 Comment:[facility]- [id number] Narrative [facility] - 12/03/2024 8:07 AM EDT Performed at: 01 - [facility] [id number] Dye Feeder: Shiva Christopher PhD, Phone: [phone] Stefany Patel DO LAB BODY FLUIDS AND STOOLS ORDERABLES Final Result Performing Organization Address [facility] de Phone Number [facility] * Iron + transferrin + TIBC (11/26/2024 10:48 AM EDT) Pathologist [facility] Iron Bind.Cap.(TIBC) 256 250 - 450 ug/dL [facility] UIBC 159 131 - 425 ug/dL [facility] Iron 97 27 - 159 ug/dL [facility] Iron Saturation 38 15 - 55 % [facility] TRANSFERRIN 209 192 - 364 mg/dL [facility] Blood 11/26/2024 10:4 8 AM EDT 11/26/2024 Narrative [facility] - 12/03/2024 8:07 AM EDT Performed at: - [address] [id number] Dye Feeder: Shiva Christopher PhD, Phone: [phone] Stefany Patel DO LAB BLOOD ORDERABLES Final Result Performing Organization Address [facility] de Phone Number [facility] * Clostridium difficile toxin (11/26/2024 10:48 AM EDT) C DIFFICILE, CYTOTOXIN B Comment [facility] Comment: Negative No cytotoxin detected. Reference Range: Negative Stool Rectal contents / Unknown 11/26/2024 10:48 AM EDT 11/26/2024 Comment: - [id number] Narrative [facility] - 12/03/2024 8:07 AM EDT Performed at: [address] [place] [id number] Dye Feeder: Shiva Christopher PhD, Phone: [phone] Stefany Patel DO LAB MICROBIOLOGY - GENERAL ORDERABLES Final Result Performing Organization Address [facility] de Phone Number [facility] * Lipase (11/26/2024 10:48 AM EDT) LIPASE 33 14 - 72 U/L [facility] Blood Venous blood specimen / Unknown 11/26/2024 10:48 AM EDT 11/26/2024 Narrative [facility] - 12/03/2024 8:07 AM EDT Performed at: [address] [place] [address] [id number] Dye Feeder: Shiva Christopher PhD, Phone: [phone] Stefany Patel DO LAB BLOOD ORDERABLES Final Result Performing Organization Address [facility] Phone Number [facility] * Amylase (11/26/2024 10:48 AM EDT) AMYLASE 43 31 - 110 U/L [facility] Blood Venous blood specimen / Unknown 11/26/2024 10:48 AM EDT 11/26/2024 Narrative [facility] - 12/03/2024 8:07 AM EDT Performed at: [address] [place] [address] [id number] Dye Feeder: Shiva Christopher PhD, Phone: [phone] Stefany Patel DO LAB BLOOD ORDERABLES Final Result Performing Organization Address [facility] de Phone Number [facility] * Ova and parasites with giardia antigen (11/26/2024 10:48 AM EDT) OVA + PARASITE EXAM Final report [facility] Comment: These results were obtained using wet preparation(s) and trichrome stained smear. This test does not include testing for Cryptosporidium parvum, Cyclospora, or Microsporidia. Giardia lamblia Ag, EIA Negative Negative [facility] Stool Rectal contents / Unknown 11/26/2024 10:48 AM EDT 11/26/2024 Comment:[facility]- [id number] Narrative [facility] - 12/03/2024 8:07 AM EDT Performed at: [address] [id number] Dye Feeder: Shiva Christopher PhD, Phone: [phone] Stefany Patel DO LAB BODY FLUIDS AND STOOLS ORDERABLES Final Result Performing Organization Address [facility] de Phone Number [facility] * Stool culture (11/26/2024 10:48 AM EDT) SALMONELLA/SHIGEL LA SCREEN Final report [facility] CAMPYLOBACTER CULTURE Final report [facility] E COLI SHIGELLA TOXIN EIA Negative Negative [facility] Stool Rectal contents / Unknown 11/26/2024 10:48 AM EDT 11/26/2024 Comment:[facility]- [id number] Narrative [facility] - 12/03/2024 8:07 AM EDT Performed at: [address] [id number] Dye Feeder: Shiva Christopher PhD, Phone: [phone] Stefany Patel DO LAB MICROBIOLOGY - GENERAL ORDERABLES Final Result Performing Organization Address [facility] de Phone Number [facility] * (ABNORMAL) Magnesium (11/26/2024 10:48 AM EDT) Magnesium 2.4(H) 1.6 - 2.3 mg/dL [facility] Blood Venous blood specimen / Unknown 11/26/2024 10:48 AM EDT 11/26/2024 Narrative [facility] - 12/03/2024 8:07 AM EDT Performed at: [address] [place] [address] [id number] Dye Feeder: Shiva Christopher PhD, Phone: [phone] Stefany Patel DO LAB BLOOD ORDERABLES Final Result Performing Organization Address [facility] Phone Number [facility] * Folate (11/26/2024 10:48 AM EDT) Folate 6.4 >3.0 ng/mL [facility] Comment: A serum folate concentration of less than 3.1 ng/mL is considered to represent clinical deficiency. Blood Venous blood specimen / Unknown 11/26/2024 10:48 AM EDT 11/26/2024 Narrative [facility] - 12/03/2024 8:07 AM EDT Performed at: [address] [id number] Dye Feeder: Shiva Christopher PhD, Phone: [phone] Stefany Patel DO LAB BLOOD ORDERABLES Final Result Performing Organization Address [facility] Phone Number [facility] * Vitamin B12 (11/26/2024 10:48 AM EDT) Vitamin B12 469 232 - 1,245 pg/mL [facility] Blood Venous blood specimen / Unknown 11/26/2024 10:48 AM EDT 11/26/2024 Narrative [facility] - 12/03/2024 8:07 AM EDT Performed at: [address] [place] [id number] Dye Feeder: Shiva Christopher PhD, Phone: [phone] Stefany Patel DO LAB BLOOD ORDERABLES Final Result Performing Organization Address [facility] de Phone Number [facility] * Ferritin (11/26/2024 10:48 AM EDT) Ferritin 70 15 - 150 ng/mL [facility] Blood Venous blood specimen / Unknown 11/26/2024 10:48 AM EDT 11/26/2024 Narrative [facility] - 12/03/2024 8:07 AM EDT Performed at: 01 - [address] [id number] Dye Feeder: Shiva Christopher PhD, Phone: [phone] us Stefany Patel DO LAB BLOOD ORDERABLES Final Result [facility] * Comprehensive metabolic panel (11/26/2024 10:48 AM EDT) Glucose 87 70 - 99 mg/dL [facility] BUN 12 6 - 20 mg/dL [facility] Creat 0.85 0.57 - 1.00 mg/dL [facility] EGFR 94 >59 mL/min/1.7 3 [facility] BUN/Creat Ratio 14 9 - 23 [facility] Sodium 141 134 - 144 mmol/L [facility] Potassium 4.3 3.5 - 5.2 mmol/L [facility] Chloride 101 96 - 106 mmol/L [facility] Carbon Dioxide 24 20 - 29 mmol/L [facility] Calcium 9.5 8.7 - 10.2 mg/dL [facility] Protein Total 7.1 6.0 - 8.5 g/dL [facility] Albumin 4.7 4.0 - 5.0 g/dL [facility] Globulin Total 2.4 1.5 - 4.5 g/dL [facility] Bili Total 0.2 0.0 - 1.2 mg/dL [facility] Alk Phosphatase 78 44 - 121 IU/L [facility] Comment: Effective December 02, 2024 Alkaline Phosphatase reference interval will be changing to: Age Male Female 0 - 5 days 47 - 127 47 - 127 6 - 10 days 29 - 242 29 - 242 11 - 20 days 109 - 357 109 - 357 21 - 30 days 94 - 494 94 - 494 1 - 2 months 149 - 539 149 - 539 3 - 6 months 131 - 452 131 - 452 7 - 11 months 117 - 401 117 - 401 12 months - 6 years 158 - 369 158 - 369 7 - 12 years 150 - 409 150 - 409 13 years 156 - 435 78 - 227 14 years 114 - 375 64 - 161 15 years 88 - 279 56 - 134 16 years 74 - 207 51 - 121 17 years 63 - 161 47 - 113 18 - 20 years 51 - 125 42 - 106 21 - 50 years 47 - 123 41 - 116 51 - 80 years 49 - 135 51 - 125 >80 years 48 - 129 48 - 129 AST 11 0 - 40 IU/L [facility] ALT 8 0 - 32 IU/L [facility] Blood Venous blood specimen / Unknown 11/26/2024 10:48 AM EDT 11/26/2024 Narrative [facility] - 12/03/2024 8:07 AM EDT Performed at: 01 - [facility] [address] [id number] Dye Feeder: Shiva Christopher PhD, Phone: [phone] Stefany Patel DO LAB BLOOD ORDERABLES Final Result [facility] documented in this encounter Visit Diagnoses Diagnosis Diarrhea, unspecified type- Primary Chronic fatigue Other malaise and fatigue documented in this encounter Care Teams Hand Bootmaker Relationship Specialty Start Date End Date Stefany Patel DO [address] [place] [address] PCP - General Family Medicine 10/08/24 Stefany Patel DO [address] [place] [address] PCP - [employer] 10/24/24 documented as of this encounter
--- OUTSIDE RECORDS SUMMARY | 2024-12-04 11:38 | XMS_ITS | Continuity of Care Document ---
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 Name Role Phone Kami Briceno MD Primary Care Pr ovider Melly Diaz APRN Attending Provider Kapil Patel DO Primary Care Provider Marcelle Ryan MD Attending Provider Randal Hu MD Referring Provider Care Teams Patient Care Team Team Status: Active Member Role Status Dates Kapil Patel DO Primary Care Provider Active Visit Care Team Team Status: Inactive Member Role Status Dates Kami Olvera MD Primary Care Provider Active Start: October End: November 01, 2024 Melly Diaz APRN Attending Provider Active Start: November 01, 2024 End: November 01, 2024 Visit Care Team Team Status: Inactive Member Role Status Dates Kapil Patel DO Primary Care Provider Active Start: November 21, 2024 End: November 21, 2024 Marcelle Ryan MD Attending Provider Active Start: November 21, 2024 End: November 21, 2024 Randal Hu MD Referring Provider Active Start: November 21, 2024 End: November 21, 2024 Patient Care Team Team Status: Inactive Member Role Status Dates Kapil Patel DO Primary Care Provider Active Start: December 04, 2024 End: December 04, 2024 Marcelle Ryan MD Attending Provider Active Start: December 04, 2024 End: December 04, 2024 Visit Care Team Team Status: Active Member Role Status Dates Kapil Patel DO Primary Care Provider Active Start: December 04, 2024 Marcelle Ryan MD Attending Provider Active Start: December 04, 2024 Randal Hu MD Referring Provider Active Start: December 04, 2024 Chief Complaint and Reason for Visit Chief Complaint Admit Date Patient here for a 2 month f/u November 012024 11:18am HX: Hodgkins Lymphoma /Transfer of care November 21, 2024 10:54am f/u after CT December 04, 2024 2:52pm HX: Hodgkins Lymphoma /Transfer of care December 04, 2024 2:53pm Reason for Visit Admit Date Cancer associated pain November 01, 2024 11:18am Hodgkin's lymphoma November 01, 2024 11 :18am 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 November 01, 2024 11:18am Cancer associated pain November 21 10:54am 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 November 21, 2024 10:54am Thyroid nodule November 21, 2024 10:54am Weight loss November 21, 2024 10:54am History of gastric surgery November 10:54am Cancer associated pain December 04, 025 2:52pm Chronic diarrhea December 04, 2024 2:52pm 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 December 04, 2024 2:52pm Thyroid nodule December 04, 2024 2:52pm Weight loss December 04, 2024 2:52pm History of gastric surgery November 2:52pm Reason for Referral Referring Provider Name Referring Provider Address Referring Provider Phone Referral Date Requested Appointment Date Referral Reason November 21, 2024 C81.12 - Nodular sclerosis Hodgkin lymphoma, intrathoracic lymph nodes,R63.4 - Abnormal weight loss Allergies, Adverse Reactions, Alerts Allergen Type Severity Reaction Last Updated Verified Status dihydroergotamine Allergy Unknown passed out 2024 11:01am Yes Active diphenhydramine Allergy Unknown Hives, anaphylaxis S eptember 2024 11:01am Yes Active Social History Smoking Status Status [...] Active Viral URI with cough Unknown Active Thyroid nodule Unknown Active Skin infection at gastrostomy tube site Unknown A ctive Candidiasis of mouth Unknown Active Pain Unknown Active Shoulder pain Unknown Active Chest wall pain Unknown Active Lymphadenopathy Unknown Active Lymphoma Unknown Active Neutropenia Unknown Active Neutropenic fever Unknown Active Cancer associated pain Unknown Active Cancer-related pain Unknown Active Weight loss Unknown Active 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 Unknown Active Unfavorable Abdominal pain, epigastric Unknown Active assisted (current) use of o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 November, Active AMS (altered mental status) Unknown Active Chronic diarrhea Unknown Active Nonhealing surgical wound Unknown Active [...] as needed for Pain 90 October 10, 20232023 2:17p m Morphine 15 mg tablet Discont inued 0 PO Three times daily as needed for pain 48 October 19, 20232023 3:25p m 1-2 tabs orally three times daily PRN; Morphine 15 mg tablet Discont inued 0 PO Three times daily as needed for pain 48 October 19, 2023Octus t 2023 9:27a m 1-2 tabs orally three times daily PRN; Morphine 15 mg tablet Discont inued 0 PO Twice daily as needed for pain 80 November 15, 2023 Septe er 2023 1:01p m 1-2 tabs orally twice daily PRN; Morphine 15 mg tablet Discont inued 0 PO Twice daily as needed for pain 120 30 Septem deborah 2023 Septe er 2023 1:04p m 1-2 tabs orally twice [...] for pain 150 30 Novemb er 2023 [facility] deborah 2023 9:24a m 1-2 tabs orally three times daily PRN; adjusting medication frequency please refill on 02/01/24 Morphine 15 mg tablet Discont inued 0 PO Three times daily as needed for pain 150 30 Decemb er 2023 [facility] deborah 2023 2:55p m 1-2 tabs orally three times daily PRN; adjusting medication frequency please refill on 02/01/24 Morphine 15 mg tablet Discont inued 0 PO Three times daily as needed for pain 150 30 Decemb er 2023ua ry 2024 2:28p m 1-2 tabs orally three times daily PRN; Morphine 15 mg tablet Discont inued 0 PO Three times daily as needed for pain 150 30 Januar y 2024 Febru alia 2024 4:42p m 1-2 tabs orally three times daily PRN; Morphine 15 mg tablet Discont inued 0 PO Three times daily as needed for pain 150 30 ua ry 2024May 23, 2024 10:51 am 1-2 [...] EVERY 4-6 HOURS as needed for pain July 25, 2024 August 09, 2024 2:14p [...] PO Every 12 hours 30 October 14, 2024 Augus t 2024 11:39 am Oxycodone 10 mg tablet Discont inued 10 MG PO Every 8 hours as needed for pain 21 October 18, 20242024 9:02a m Oxycodone 10 mg tablet Discont inued 10 MG PO Every 8 hours as needed for pain 21 October 24, 20242024 1:20p m Oxycodone 10 mg tablet Discont inued 10 MG PO Every 8 hours as needed for pain 69 October 24, 20242024 11:40 am Hydromorpho ne 2 mg tablet Discont inued 0 PO Q6H as needed for pain 90 October 29, 20242024 11:42 am 1-2 tablets q 6 hours prn orally every 6 hours PRN; oxycodone not effective, rotating to Hydromorphone Hydromorpho ne 2 mg tablet Discont inued 0 PO Q6H as needed for pain 60 October 29, 2024Oct 2024 9:48a m 1-2 tablets orally every 6 hours PRN; Hydromorpho ne 2 mg tablet Discont inued 0 PO Q6H as needed for pain 60 November 05, 2024Oct 2024 10:02 am 1-2 tablets orally every 6 hours PRN; Hydromorpho ne 2 mg tablet Discont inued 0 PO Q6H as needed for pain 100 November 05, 2024Oct 2024 10:02 am 1-2 tablets orally every 6 hours PRN; Hydromorpho ne 2 mg tablet Discont inued 0 PO Q6H as needed for pain 100 November 05, 2024 Sept mber 2024 7:34a m 1-2 tablets orally every 6 hours PRN; Hydromorpho ne 2 mg tablet Active 0 PO Q6H as needed for pain 100 2024 1-2 tablets orally every 6 hours PRN; Unknown Atenolol 25 mg tablet Discont inued 25 [...] MG PO Q8H 15 5 2017 1:00am u 2017 1:00a m u 2017 1:04a m Venlafaxine (Effexor Xr) 75 mg Capsule,Ext ended Release 24hr Discont inued 225 MG PO Daily 2018 1:00am Septe [facility] 2021 3:05p m Erenumab-Ao oe (Aimovig Autoinjecto [...] pain Nystatin 100,000 unit/mL suspension Discont inued 16803 00 UNIT BUCCAL Four times daily August 14, 2021 12:00a m Karis 7th, 2022 10:39 pm administer 1/2 of dose in each side of the mouth Oxycodone 5 mg/5 mL solution Discont inued 5 MG PO As Directed as needed for Pain August 24, 2021 12:00a m August 25, 2021 3:47a m Zaleplon 10 mg Capsule Discont inued 10 MG PO Daily at bedtime August 24, 2021 12:00a m Febru alia 2023 3:35p m Prochlorper azine Maleate (Compazine) 10 mg Tablet Discont inued 10 MG PO Q6H as needed for Vomiting August 24, 2021 12:00a m Janua ry 2022 1:04p m Acyclovir 400 mg Tablet Discont inued 400 MG PO Twice daily August 24, 2021 12:00a m Septe [facility] 2021 8:17p m Sulfamethox azole-Trime thoprim (Bactrim Ds) 800-160 mg Tablet Discont inued 1 TAB PO Twice daily August 24, 2021 12:00a m Septe [facility] 2021 8:16p m Alprazolam 0.5 mg Tablet Discont inued 0.5 MG PO Daily at bedtime as needed for Insomnia August 24, 2021 12:00a m Septe [facility] 2021 3:04p m Oxycodone-A cetaminophe n (Percocet) 5-325 mg tablet Discont inued 1 - 2 TAB PO Every 6 hours as needed for pain 15 3 August 25, 2021 September 05, 2021 5:09p m Ibuprofen 600 mg tablet Discont inued 600 MG PO Q8H as needed for pain August 25, 2021 12:00a m Septe mb 2021 3:04p m Cephalexin 500 mg capsule Discont inued 500 MG PO Q12H 06 01September 26, 2021 12:00a m Septe [facility] 2021 8:17p m Loratadine (Claritin) 10 mg Tablet Discont inued 10 MG PO Daily Sept2021 12:00a m Septe mber 2021 3:04p m Hydrocodone -Acetaminop hen 5-325 mg tablet Discont inued 1 TAB PO EVERY 4-6 HOURS as needed for pain 10 3 Decemb er 2021u alia2023 9:24a m Venlafaxine 225 mg tablet extended release 24hr Active 225 MG PO Daily 2022 1:00am Unknown Galcanezuma b-Gnlm (Emgality Syringe) 120 mg/mL syringe Active 120 MG SUBCUT every month 2022 1:00am Unknown Cyclobenzap rine 10 mg tablet Discont inued 10 - 12 MG PO Daily at bedtime as needed for Sleep 2022 1:00am u 2023 3:32p m Cephalexin (Keflex) 500 mg [...] .COMPLEX September 02, 2019 12:00a m Septe [facility] 2021 3:04p m mg subcutaneousl y once a month Bupropion Hcl 100 mg Tablet Active 100 MG PO Twice daily August 02, 2021 12:00a m Unknown Morphine 15 mg tablet extended release Discont inued 30 MG PO Twice daily as needed for Pain September 05, 2021 12:00a m Febru 2023 3:35p m Oxycodone 10 mg tablet Discont inued 10 MG PO As Directed as needed for Pain September 05, 2021 12:00a m Septe mber 2021 3:05p m Ondansetron Hcl 4 mg Tablet Active 4 MG PO Q6H as needed for Nausea September 05, 2021 12:00a m Unknown Nystatin (Mycostatin ) 100,000 unit/mL Suspension Discont inued 5 ML BUCCAL Four times daily Sept deborah 2021 12:00a m 2022 1:04p m administer 1/2 of dose in each side of the mouth Polyethylen e Glycol 3350 17 gram Powder In Packet Discont inued 17 GM PO Daily as needed for Constipatio n 2021 12:00a m Febr2023 3:35p m Sennosides- Docusate Sodium (Senna-S) 8.6-50 mg Tablet Discont inued 1 TAB-CA P PO Twice daily 2021 12:00a m Febr2023 3:35p m Perflutren Lipid Microsphere s 1.1 mg/mL Suspension Discont inued MG IV 2021 12:00a m 2022 1:04p m Gabapentin (Neurontin) 300 mg Capsule Discont inued 300 MG PO Daily 2021 12:00a m 2023 3:33p m Hydromorpho ne (Dilaudid) 4 mg Tablet Discont inued 4 MG PO Q4H as needed for Pain 2021 12:00a m 2023 1:47p m Olanzapine 5 mg Tablet,Disi ntegrating Discont inued 5 MG PO Daily at bedtime 2021 12:00a m 2022 1:04p m Naloxone 4 mg/actuatio n [place],Non-A erosol Active 4 MG INTRAN TIFF Q2M as needed for Opiate Reversal 2021 12:00a m spray 1 dose into ONE nostril; alternate nostrils w each dose until help arrives Unknown Hydromorpho ne (Dilaudid) 4 mg tablet Discont inued 4 MG PO Q4H as needed for Pain 90 June 29, 2023 July 10, 2023 4:36p m Hydromorpho ne (Dilaudid) 4 mg tablet Discont inued 4 MG PO Q4H as needed for Pain 90 15 August 23, 2023 September 04, 2023 10:11 am Morphine 15 mg tablet Discont inued 15 MG PO EVERY 4-6 HOURS as needed for pain 75 15 June 27, 2024 July 12, 2024 8:20a m Zolpidem (Ambien) 5 mg tablet Active 5 MG PO Daily at bedtime 2024 12:00a m Unknown Linaclotide (Linzess) 72 mcg capsule Active 72 MCG PO Daily 2024 12:00a m Unknown Copper Gluconate 2 mg tablet Active 2 MG PO Twice daily 60 30 2024 12:00a m Unknown Pseudoephed rine-Dm-Gua ifenesin (Capmist Dm) 60-15-400 mg tablet Discont inued 1 TAB PO EVERY 4-6 HOURS as needed for cold symptoms August 21, 2023 12:00a m 2024 11:01 am do not exceed 4 doses per 24 hrs Morphine 15 mg tablet Discont inued 0 [...] Device Deta ils Vascular port/catheter August 02, 2021March 18, 20 ANGELO: [id number] Issuing Agency: [employer] Device Id: [id number] Expiration Date: 2022-06-17 Lot Number: [id number] Procedures Procedure Date Performed Status CT chest w con November 29, 2024 8:40am comp leted CT soft tissue neck w con November 29, 2024 8 :40am completed Relevant Diagnostic Tests and/or Laboratory Data Laboratory Results Test Collection Date/Time Result Date/Time Result Interpretation Reference Range Result Comment Performing Site Lactate Dehydroge nase November 29, 2024 8:50am November 29, 2024 10:44am 143 U/L 140-271 [facility] [id number] [address] [place] [address] Iron Level November 29, 2024 8:50am November 29, 2024 10:44am 106 ug/dL 50-212 [facility] [id number] [address] [place], [place] [address] Total Iron Binding Capacity November 29, 2024 8:50am November 29, 2024 10:44am 246 ug/dL Below low normal 255-450 [facility] [id number] [address] [place] [address] Iron Saturatio n November 29, 2024 8:50am November 29, 2024 10:44am 43.1 % 20-50 [facility] [id number] [address] [place] [address] Transferr in November 29, 2024 8:50am November 29, 2024 10:44am 176 mg/dL Below low normal 203-362 [facility] [id number] [address] [place] [address] Ferritin November 29, 2024 8:50am November 29, 2024 11:05am 29.9 ng/mL 11.0-306.8 [facility] [id number] [address] [place] [address] 39512 Vitamin B12 Level November 29, 2024 8:50am November 29, 2024 11:10am 312 pg/mL 180-914 [facility] [id number] [address] [place], [place] [address] Folate November 29, 2024 8:50am November 29, 2024 11:08am 9.3 ng/mL >5.9 Folate reference range: >5.9 ng/mlThe WHO technical consultation on folate and vitamin [id number] ies has determined that folate concentratio ns lessthan 4 ng/ml are considered deficient. [facility] [id number] [address] [place] [address] Free Thyroxine November 29, 2024 8:50am November 29, 2024 11:00am 0.62 ng/dL 0.61-1.12 [facility] [id number] [address] [place] [address] Thyroid Stimulati ng Hormone 3rd Gen November 29, 2024 8:50am November 29, 2024 10:59am 0.33 u[iU]/m L Below low normal 0.45-5.33 [facility] [id number] [address] [place], [place] [address] Copper Level November 29, 2024 8:50am December 03, 2024 8:36am 65 ug/dL Below low normal 80-158 This test was developed and its performance characterist icsdetermine d by [employer]. It has not been cleared orapproved by the Food and Drug Administrati on. Detection Limit = 5Performed at: [address] [id number] Director: Carlos Guerra MD, Phone: [phone] [facility] 00 Cerulopla smin November 29, 2024 8:50am November 30, 2024 4:36am 14.8 mg/dL Below low normal 19.0-39.0 Performed at: [facility] [id number] Director: Shiva Christopher PhD, Phone: [phone] [facility] 00 Diagnostic Imaging Reports Author Jesus Ledesma [facility] Authored November 29, 2024 1:13pm Report Dictated Date/Time Dictated By Status Radiology Report November 29, 2024 1:13pm Jesus Ledesma Jr DO completed [facility] [place] [address] CT Scan Report Signed Patient: Negro Stacy MR#: [id number] : 1995 Acct:[id number] Age/Sex: 29 / F ADM Date: 5 Loc: Room: Type: [facility] RCR Attending Dr: Marcelle Ryan MD Copies to: Marcelle Ryan MD~ Ordering Provider: Marcelle Ryan MD Date of Service: 11/29/24 CT/CT chest w con: C81.90 - Hodgkin lymphoma, unspecified, unspecified site CT CHEST WITH INTRAVENOUS CONTRAST: CLINICAL HISTORY: Restaging Hodgkin's lymphoma. COMPARISON: Outside CT chest 05/22/2024. No report. TECHNIQUE: Spiral images were obtained through the chest following intravenous administration of IV contrast. This CT exam was performed using one or more following dose reduction techniques: Automated exposure control, adjustment of the mA and/or kV according to patient size, or use of iterative reconstruction technique. FINDINGS: Mediastinum:Thoracic aorta appears normal in caliber. Pulmonary trunk appears nondilated. No pericardial effusion. Residual thymic tissue is present. No lymphadenopathy. The esophagus is grossly unremarkable. Lungs:No consolidation pneumothorax or pleural effusion. Mild dependent atelectatic changes. Abd:No acute process. No lymphadenopathy. Soft tissues/Bones: No axillary or subpectoral lymphadenopathy. Osseous structures demonstrate minimal degenerative change. CT/CT chest w con IMPRESSION: No acute findings. No pathologically enlarged lymph nodes seen within the chest. Impression dictated by: Jesus Ledesma Jr., D.OGhassan 11/29/2024 1:16 PM Dictation Location: [place] [address] Transcribed By: [facility] 11/29/24 1316 Dictated By: Jesus Ledesma Jr, DO 11/29/24 1313 Signed By: <Electronically signed by Jesus Ledesma Jr, DO in OV> 11/29/24 1316 Author Jesus Led[address] [facility] Authored November 29, 2024 1:16pm Report Dictated Date/Time Dictated By Status Radiology Report November 29, 2024 1:16pm Jesus Ledesma Jr DO completed [facility] [place] [address] CT Scan Report Signed Patient: Negro Stacy MR#: [id number] : 1995 Acct:[id number] Age/Sex: 29 / F ADM Date: 5 Loc: Room: Type: [facility] Attending Dr: Marcelle Ryan MD Copies to: Marcelle Ryan MD~ Ordering Provider: Marcelle Ryan MD Date of Service: 11/29/24 CT/CT soft tissue neck w con: C81.90 - Hodgkin lymphoma, unspecified, unspecified site CT soft tissue neck w con 11/29/2024 9:24 AM SIGNS AND SYMPTOMS: ^C81.90 - Hodgkin lymphoma, unspecified, unspecified site TECHNIQUE: Multidetector CT axial slices of the soft tissues of the neck were obtained with IV contrast. Sagittal and coronal reformats were reconstructed. CT was performed with one or more of the following dose reduction techniques: Automated exposure control, adjustment of the mA and/or kV according to patient size, or use of iterative reconstruction technique. COMPARISON: None FINDINGS: Mucosal surfaces of the nasopharynx, oropharynx, hypopharynx, glottic, and subglottic airways are grossly unremarkable. No pathologically enlarged lymph nodes are noted. The parotid glands, submandibular, and the thyroid gland are within normal limits. The carotid and jugular circulations are within normal limits. No acute bony abnormalities are appreciated. CT/CT soft tissue neck w con IMPRESSION: Unremarkable CT soft tissue neck. No pathologically enlarged lymph nodes. Impression dictated by: Jesus Ledesma Jr., D.O. 11/29/2024 1:18 PM Dictation Location: [facility]- Transcribed By: [facility] 11/29/241317 Dictated By: Jesus Ledesma Jr, DO 11/29/241315 Signed By: <Electronically signed by Jesus Ledesma Jr, DO in OV> 11/29/241317 Vital Signs Vital Reading Result Reference Range Collection Date/Time Height 67 [in_i] November 01 11:21am Weight 61.23 kg November 01 11:21am Body Temperature 98.1 [degF] 97.6-99.0 October 11:21am Heart Rate 112 /min 60-100 November 01 11:23am BP Systolic 133 mm[Hg] 100-140 November 01 11:23am BP Diastolic 100 mm[Hg] 60-100 November 01 11:23am BMI (Body Mass Index) 21.1 kg/m2 November 01, 2024 11:21am Height 67 [in_i] November 21, 2024 10:56am Weight 63.50 kg November 21, 2024 10:56am Body Temperature 97.4 [degF] 97.6-99.0 November 212024 10:56am Heart Rate 103 /min 60-100 November 21, 2024 10:56am Respiratory rate 16 /min 12-November 212024 10:56am Oxygen saturation by Pulse oximetry 100 % 95-100 November 21, 2024 10:56am BP Systolic 116 mm[Hg] 100-140 November 21, 2024 10:56am BP Diastolic 84 mm[Hg] 60-100 November 21, 2024 10:56am BMI (Body Mass Index) 21.9 kg/m2 2024 10:56am Height 67 [in_i] December 04, 2024 3:01pm Weight 65.31 kg December 04, 2024 3:01pm Body Temperature 97.5 [degF] 97.6-99.0 November 182024 3:01pm Heart Rate 81 /min 60-100 December 04, 2024 3:01pm Respiratory rate 16 /min 12-24 November 182024 3:01pm Oxygen saturation by Pulse oximetry 100 % 95-100 December 04, 2024 3:01pm BP Systolic 132 mm[Hg] 100-140 December 04, 2024 3:01pm BP Diastolic 87 mm[Hg] 60-100 December 04, 2024 3:01pm BMI (Body Mass Index) 22.5 kg/m2 2024 3:01pm Height 67 [in_i] December 04, 2024 3:01pm Weight 65.31 kg December 04, 2024 3:01pm Advance Directives Advance Directive Response Recorded Date/ Time Advance Directives No April 6:19pm Insurance Providers Guarantor Negro Stacy Address [address] [place] [phone] Contact Info. Home Phone: Payer Policy Id Subscriber's Name Subscriber Id Effectiv e Date Expiration Date [facility] [id number] Daren Stacy [id number] [facility] Net Access [id number] Daren Stacy [id number] [facility]/BS [id number] Negro Stacy [id number] Encounters Encounter Location(s) Arrival/Admit Date Discharge/Depart Date Provider(s) Departed Physician/Provi simi Office Visit -[facility] November 01, 2024 11:18am November 01, 2024 11:39am Leif Lainer APRN Departed Physician/Provi simi [facility] November 21, 2024 10:54am November 21, 2024 11:45am Leif Ghorta MD Departed Physician/Provi simi [facility] December 04, 2024 2:52pm December 04, 2024 3:37pm Leif Ghotra MD Registered Recurring -[facility] December 04, 2024 2:53pm Leif Ghotra MD Recent Diagnosis Onset Date Admit Date Cancer associated pain Unknown November 012024 11:18am Hodgkin's lymphoma Unknown November 01, 2024 11:18am 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 November, November 01, 2024 11:18am Cancer associated pain Unknown November 21, 2024 10:54am 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 Unknown November 21, 2024 10:54am Thyroid nodule Unknown November 21 025 10:54am Weight loss Unknown November 21 10:54am History of gastric surgery Unknown 2024 10:54am Cancer associated pain Unknown December 04, 2024 2:52pm Chronic diarrhea Unknown December 04, 2024 2:52pm 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 Unknown December 04, 2024 2:52pm Thyroid nodule Unknown December 04, 2024 2:52pm Weight loss Unknown December 04, 2024 2:52pm History of gastric surgery Unknown 2024 2:52pm Assessments Diagnosis Onset Date Resolution Status Admit Date Cancer associated pain acute Au 2024 11:18am Hodgkin's lymphoma acute November 01, 2024 11:18am 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 November, acute November 01 11:18am Cancer associated pain acute Se pt2024 10:54am 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 acute November 21 025 10:54am Thyroid nodule acute November 21, 2024 10:54am Weight loss acute November 10:54am History of gastric surgery resolved November 21, 2024 10:54am Cancer associated pain acute Se ptember 2024 2:52pm Chronic diarrhea acute 2024 2:52pm 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 acute December 04, 2024 2:52pm Thyroid nodule acute December 04, 2024 2:52pm Weight loss acute November 2:52pm History of gastric surgery resolved December 04, 2024 2:52pm Plan of Treatment Author Marcelle Ryan [facility] Authored November 22, 2024 3:19pm This is a 29-year-old lady nhi thomas is now over 3 years from diagnosis of 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 She had a complete response after completing 6 cycles of chemotherapy: Adriamycin, bleomycin, vinblastine, and dacarbazine with leuprolide for ovarian suppression. Interim PET after 2 cycles with favorable response, omitted bleomycin with continued Adriamycin, vinblastine, and dacarbazine with residual leg pain as toxicity of therapy, possibly neuropathy but requiring chronic opioid followed by palliative medicine. Her most recent restaging imaging in May 2024 showed no evidence of recurrent intrathoracic or cervical adenopathy. She does have a triangular anterior mediastinal soft tissue fullness representing either thymic rebound or residual thymus that has been stable from prior imaging. Nonspecific subcentimeter nodular opacities and ground glass opacities in the lungs stable prior studies. We are addressing some chronic issues including gastroparesis, surveillance of thyroid nodules, and chronic pain. 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 Most recent EGD did not show any complications at the site but due to her ongoing GI symptoms we are sending her to nutrition and gastroenterology at [facility] for ongoing surveillance. She continues to follow-up with palliative medicine for cancer associated pain managed by CRISTIAN Diaz. We are restaging with CT neck and chest which will be ordered within the next week with labs for malabsorption due to recent weight loss and prior extensive gastric surgery are sent for her persistent fatigue. We will follow-up these results in the next 2 weeks. This is a high complexity consultation for transfer of care over 60 minutes [id number] and additional 30 minutes for review of extensive outpatient records of prior therapy. I reviewed recent follow-up with CRISTIAN Diaz who monitors the patient on Dilaudid tablets 2 mg 1 to 2 tablets every 6 hours due to chronic pain in the legs from ABVD therapy. Patient notes recurrent weight loss and gastroparesis, no longer followed by [facility] gastroenterology due to change in insurance. We will set up evaluation by nutrition and [facility] gastroenterology for symptom management and repeat endoscopy if indicated. We discussed workup for malabsorption with B12, folate, serum iron profile and ferritin, copper and ceruloplasmin, follow-up LDH, TSH and free T4--all of these were ordered today and we will follow-up results in 2 weeks with appropriate repletion as needed. 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 She previously was following with GI at [facility] but it has been over 1 year--upper GI endoscopy 07/13/2023 showed normal esophagus, old gastrostomy scar in the gastric body but otherwise normal stomach, and normal duodenum. She apparently had biopsies taken for celiac disease and we do not have these results. She is interested in continued follow-up with gastroenterology at [facility] for her ongoing concerns for malabsorption and weight loss. Recent thyroid ultrasound reviewed and ongoing follow-up with Dr. De Luna of ENT for surveillance of subcentimeter thyroid nodule, TI-RADS 4. No palpable nodule on exam. 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 She had a complete response after completing 6 cycles of chemotherapy: Adriamycin, bleomycin, vinblastine, and dacarbazine with leuprolide for ovarian suppression. Interim PET after 2 cycles with favorable response, omitted bleomycin with continued Adriamycin, vinblastine, and dacarbazine with residual leg pain as toxicity of therapy, possibly neuropathy but requiring chronic opioid followed by palliative medicine. Her most recent restaging imaging in May 2024 showed no evidence of recurrent intrathoracic or cervical adenopathy. She does have a triangular anterior mediastinal soft tissue fullness representing either thymic rebound or residual thymus that has been stable from prior imaging. Nonspecific subcentimeter nodular opacities and ground glass opacities in the lungs stable prior studies. We are addressing some chronic issues including gastroparesis, surveillance of thyroid nodules, and chronic pain. 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 Most recent EGD did not show any complications at the site but due to her ongoing GI symptoms we are sending her to nutrition and gastroenterology at [facility] for ongoing surveillance. She continues to follow-up with palliative medicine for cancer associated pain managed by CRISTIAN Diaz. We are restaging with CT neck and chest which will be ordered within the next week with labs for malabsorption due to recent weight loss and prior extensive gastric surgery are sent for her persistent fatigue. We will follow-up these results in the next 2 weeks. This is a high complexity consultation for transfer of care over 60 minutes [id number] and additional 30 minutes for review of extensive outpatient records of prior therapy. Recent thyroid ultrasound reviewed and ongoing follow-up with Dr. De Luna of ENT for surveillance of subcentimeter thyroid nodule, TI-RADS 4. No palpable nodule on exam. I reviewed recent follow-up with CRISTIAN Diaz who monitors the patient on Dilaudid tablets 2 mg 1 to 2 tablets every 6 hours due to chronic pain in the legs from ABVD therapy. Patient notes recurrent weight loss and gastroparesis, no longer followed by [facility] gastroenterology due to change in insurance. We will set up evaluation by nutrition and [facility] gastroenterology for symptom management and repeat endoscopy if indicated. We discussed workup for malabsorption with B12, folate, serum iron profile and ferritin, copper and ceruloplasmin, follow-up LDH, TSH and free T4--all of these were ordered today and we will follow-up results in 2 weeks with appropriate repletion as needed. 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 She previously was following with GI at [facility] but it has been over 1 year--upper GI endoscopy 07/13/2023 showed normal esophagus, old gastrostomy scar in the gastric body but otherwise normal stomach, and normal duodenum. She apparently had biopsies taken for celiac disease and we do not have these results. She is interested in continued follow-up with gastroenterology at [facility] for her ongoing concerns for malabsorption and weight loss. Author Melly Diaz [facility] Authored November 03, 2024 2: 50pm Negro continues to experienc e chronic pain in her legs subsequent to ABVR chemotherapy in 2021. Pain is sometimes bothersome at night but always aggravated by prolonged activity. We have tapered opioid use and have rotated the medication, but have been unable to discontinue use of opioid medication. Did not tolerate oxycodone and did not obtain relief when long- acting morphine was used. Negro reports adequate and equal reduction of leg pain with both MSIR and dilaudid. OARRS reviewed, consistent with Rx. OME 40-50 mg/day (calculated) Continue Dilaudid 2 mg, 1-2 tabs q6h PRN without change F/U here 2 months s/p ABVR chemotherapy completed February [address] Elizabeth Hu at [facility] [place] Stable disease per most recent restaging scans Needs to change oncologist due to insurance, referred to Dr. 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 Future Tests Future scheduled test information is unavailable Pending Tests Test Name Ordered Date Scheduled Date Ceruloplasmin December 04, 2024 3:27pm 3 We eks Pancreatic Elastase, Stool December 04, 2024 3:22pm 1 Days Pancreatic Elastase, Stool December 04, 2024 3:23pm Future Visits Future appointment information is unavailable Referrals to Other Providers Reason for Referral Referral Start Date Provider Provider Contact Information Provider Address C81.12 - Nodular sclerosis Hodgkin lymphoma, intrathoracic lymph nodes,R63.4 - Abnormal weight loss November 21, 2024 [facility] [address] [place] [id number] Future Procedures Procedure Name Ordered Date Scheduled Date Complete Blood Count Auto Diff December 04, 2 025 3:27pm 3 Weeks Copper December 04, 2024 3:27pm 3 We eks Future Medications Future medication information is unavailable Patient Instructions Patient instructions are unavailable
--- OUTSIDE RECORDS SUMMARY | 2024-12-05 10:38 | XMS_ITS | Encounter Summary ---
Author Organization [facility] Address [address] [place] [id number] Care Team Providers Care Professor Of Chemistry Name Role Phone Kami Olvera MD Primary Care Provider [phone] David House MD Unavailable [phone] Rubens Singh MD Unavailable [phone] Source Comments In the event this information is protected by the Federal Confidentiality of Alcohol and Drug AbusePatient Records regulations: The Federal rules restrict any use of the information to criminally investigate or prosecute any alcohol or drug abuse patient.[facility] Encounter Details Date Type Department Care Team (Late st Contact Info) Description 01/07/2024 Get Medical Advice Gastroenterology [address] [place] [address] Thersea Rodríguez APRN.[employer] LIAISON OFFICER [address] [place] [address] Colonoscopy Social History Tobacco Use Types Packs/Day [...] place to sleep or slept in a correction (including now)? No 09/08/2021 Area Deprivation Index Answer Date Juan rded National Score (1-100), lower number is lower ri sk 73 10/14/2022 State Score (1-10), lower number is lower risk 6 10/14/2022 Data from: https://www.neigh borhoodatlas.medicine.[email or web address].edu/. Last address used for calculation [...] on filedocumented in this encounter Care Teams Professor Of Chemistry Relationship Specialty Start Date End Date Kami Olvera MD [address] [place] [phone] PCP - General Family Medicine 02/01/17 David House MD [address] [place] [phone] Physician Hematology/Oncology 07/27/21 Rubens Singh MD [address] [place] [address] Physician Hematology/Oncology 10/08/21 [facility] Palliative Medicine Provider 08/30/21 documented as of this encounter
--- OUTSIDE RECORDS SUMMARY | 2024-12-05 10:38 | XMS_ITS | Encounter Summary ---
Author Organization [facility] Address [address] [place] [address] Care Team Providers Care Meteorologist Liaison Name Role Phone Kapil Patel DO Primary Care Provider [phone] Kapil Patel DO Unavailable [phone] Encounter Details Date Type Department Care Team (Latest Contact Info) Description 12/03/2024 Results Follow-Up [facility] [address] [facility] [address] [place] [address] Kapil Patel, DO [address] [facility] [address] [place] [address] Comprehensive metabolic panel, Ferritin, Vitamin B12, Additional followed-up results: 13 Social History Tobacco Use Types Packs/Day Years [...] week 11/12/2024 How often do you attend chur or faith services? More than 4 times per year 11/12/2024 Do you belong to any clubs o r organizations such as yarsani groups, unions, fraternal or athletic groups, or [...] Recorded Patient Health Questionnaire-2 Score 0 11/22/2024 [facility] - Occupational Stress Questionnaire Answer Date [...] [facility] in the [facility] were you homeless or living in a nursing home (including now)? No 11/12/2024 Comments Unknown Sex and Gender Information Value Date Recorded Sex Assigned at Not on file Legal Sex Female 6:39 PM EDT Gender Identity Female 06/01/2022 6:39 PM EDT Sexual Orientation Not on file documented as of this encounter Plan of Treatment Upcoming Encounters Date Type Department Care Team (Late st Contact Info) Description 04/29/2025 2:00 PM EST Office Visit [facility] [address] [address] [facility] [address] [facility] [address] [place] [phone] Cole Phillip MD [address] [facility] [address] [place] [address] 04/30/2025 2:15 PM EST Office Visit [facility] [address] [place] [phone] Reji De Luna DO [address] [place] [address] documented as of this encounter Visit Diagnoses Not on filedocumented in this encounter Care Teams Meteorologist Liaison Relationship Specialty Start Date End Date Kapil Patel DO [address] [place] [address] PCP - General Family Medicine 10/08/24 Kapil Patel DO [address] [place] [address] PCP - Amita Roque 10/24/24 documented as of this encounter
--- OUTSIDE RECORDS SUMMARY | 2024-12-05 10:38 | XMS_ITS | Clinical Summary ---
Author Organization [facility] Address [address] [place] [address] Care Team Providers Care Periodontist Name Role Phone Kapil Patel DO Primary Care Provider [phone] Kapil Patel DO Unavailable [phone] Allergies Active Allergy Reactions Criticality Noted Date Comments Dhea Rash,Unknown Low 11/28/2021 Dihydroergotamine Unknown 09/27/2024 Diphenhydramine Anaphylaxis,Rash,Hiv es, Other High 10/31/2015 Iodine Rash Low 05/02/2023 Triptans 10/24/2024 Other Reaction(s): Unknown Medications venlafaxine XR (Effexor XR) 225 MG 24 hr tabletIndications:Int ractable chronic migraine without aura and with status migrainosus TAKE 1 TABLET BY MOUTH EVERY DAY WITH FOOD 90 tablet 1 2024 Active galcanezumab (Emgality) 120 MG/ML prefilled syringeIndications:In tractable chronic migraine without aura and with status migrainosus INJECT 1 ML SUBCUTANEOUSLY ONCE A MONTH FOR 90 DAYS 3 each 1 2024 Active Ubrogepant (Ubrelvy) 100 MG tabletIndications:Doug nancy without aura, intractable, with status migrainosus TAKE 1 TAB NEEDED FOR MIGRAINE. MAY REPEAT ONCE IN 2 HOURS. MAX 2 PER HEADACHE ,4 PER WEEK 10 tablet 3 2024 Active dicyclomine (Bentyl) 10 MG capsule 2024 Active HYDROmorphone (Dilaudid) 2 MG tablet TAKE 1 TO 2 TABLETS BY MOUTH EVERY 6 HOURS NEEDED FOR PAIN for 20 days 2024 Active pantoprazole (ProtoNix) 40 MG EC tabletIndications:Gen eralized pain Take 1 tablet (40 mg) by mouth Daily Do not crush, chew, or split. 30 tablet 12/14 Active polyethylene glycol, PEG, 3350 (Glycolax) 17 GM/SCOOP powder 2024 Active promethazine (Phenergan) 25 MG tablet 2024 Active sucralfate (Carafate) 1 GM/10ML suspensionIndications :Diarrhea, unspecified type,Chronic fatigue Take 10 mL (1 g) by mouth in the morning and 10 mL (1 g) at noon and 10 mL (1 g) in the evening and 10 mL (1 g) before bedtime. Take with meals. Do all this for 14 days. 460 mL 12/06 Active linaCLOtide (Linzess) 72 MCG capsuleIndications:Di arrhea, unspecified type,Chronic fatigue Take 1 capsule (72 mcg) by mouth in the morning. Take before meals. Do not crush or chew. 30 capsule 11 11/22 Active buPROPion (Wellbutrin) 100 MG tabletIndications:Dep ression, unspecified depression type TAKE 1 TABLET BY MOUTH IN THE MORNING AND BEFORE BEDTIME 180 tablet 1 2024 Active pancrelipase, Ncd-Nuuo-Uayk, (Creon) 6000-85085 units capsuleIndications:Pa ncreatic insufficiency (HCC) Take 1 capsule by mouth in the morning and 1 capsule at noon and 1 capsule in the evening. Take with meals. 90 capsule 01/01 Active zolpidem (Ambien) 10 MG tabletIndications:Ins omnia, psychophysiological 1 tab prn at bedtime 20 tablet 5 2024 Active ondansetron ODT (Zofran-ODT) 4 MG disintegrating tablet Take 4 mg by mouth 12/06 Active zolpidem (Ambien) 10 MG tabletIndications:Ins omnia, psychophysiological 1 tab prn at bedtime 20 tablet 3 12/04 Discontinued( Reorder) buPROPion (Wellbutrin) 100 MG tabletIndications:Dep ression, unspecified depression type TAKE 1 TABLET (100 MG) BY MOUTH IN THE MORNING AND BEFORE BEDTIME 180 tablet 12/02 Discontinued Imodium A-D 2 MG tablet Take 2 mg by mouth 11/22 ondansetron ODT (Zofran-ODT) 4 MG disintegrating tablet 11/22 Discontinued oxyCODONE (Roxicodone) 10 MG immediate release tablet Take 10 mg by mouth every 8 (eight) hours if needed 11/14 Discontinued( Therapy completed) ciprofloxacin (Cipro) 500 MG tabletIndications:Gen eralized pain Take 1 tablet (500 mg) by mouth in the morning and 1 tablet (500 mg) in the evening. Do all this for 7 days. 14 tablet 11/22 Discontinued Active Problems Problem Noted Date Diagnosed Date Amenorrhea 09/27/2024 Anxiety diarrhea 09/27/2024 Atopic dermatitis 09/27/2024 Atopic neurodermatitis 09/27/2024 Hodgkin lymphoma of lymph nodes of neck 09/28/19 25 Lymphadenopathy of head and neck region 09/28/19 25 Moderate episode of recurrent major depressive d isorder 09/27/2024 Recurrent major depressive disorder, in partial remission 09/27/2024 S/P percutaneous endoscopic gastrostomy (PEG) tube placement 09/27/2024 Status post cholecystectomy 09/27/2024 Migraine without aura, intractable, with status migrainosus 11/11/2022 Assessment & Plan (10/22/2024 4:36 PM EDT): Change riza to ubrogepant 100 prn migraine. Assessment & Plan (04/16/2024 4:46 PM EST): (Continue current regimen.) Assessment & Plan (08/22/2023 4:19 PM EDT): (Continue current regimen.) Pituitary gland enlarged 11/11/2022 Assessment & Plan (10/22/2024 4:36 PM EDT): Pit hormone panel. (Never done) (fasting) MR brain c/s Gd ATTN pituitary. - [facility]. Assessment & Plan (04/16/2024 4:46 PM EST): Pit hormone panel. 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 - [facility]. Assessment & Plan (08/22/2023 4:25 PM EDT): Pit hormone panel. 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 - [facility]. Insomnia, psychophysiological 11/11/2022 Assessment & Plan (10/22/2024 4:36 PM EDT): (Continue current regimen.) Assessment & Plan (04/16/2024 4:46 PM EST): Change yunier pate zolpidem 10 mg #20. (Longer duration of action.) Orders: zolpidem (Ambien) 10 MG tablet; 1 tab prn at bedtime Assessment & Plan (08/22/2023 4:21 PM EDT): (May remain off meds.) Anxiety 11/11/2022 Assessment & Plan (04/16/2024 4:46 PM EST): Hypersomnia 11/11/2022 Overview (11/11/2022): --- but NYLA=0 (____), CAIO not likely. 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 -Patient does endorse current stress and a trauma hx which places the patient at higher risk for conversion. -Strongly recommend continued outpatient counseling to develop positive coping skills. -Education and reassurance provided to patient and family PFO (patent foramen ovale) ([facility]) 02/03/2015 Resolved Problems Problem Noted Date Diagnosed Date Resolved Date Acquired hallux valgus 09/27/202411/14 Acute constipation 09/27/2024 5 G tube feedings 09/27/2024 11/14/2024 RLQ abdominal pain 09/27/2024 5 Venous insufficiency 09/27/2024 025 Cervical paraspinal muscle spasm 11/11/2022 11/14/2024 Assessment & Plan (10/22/2024 4:36 PM EDT): Change cyclobenzaprine to tizanidine 4 hs. (Continue home PT.) Assessment & Plan (04/16/2024 4:46 PM EST): Incr rotational stretches as demonstrated to pt. Assessment & Plan (08/22/2023 4:22 PM EDT): Incr rotational stretches as demonstrated to pt. May call to restart cyclobenzaprine 10 hs. Macroglossia 11/11/2022 11/14/2024 Cellulitis at gastrostomy tube site 09/06/2021 11/14/2024 Overview (09/27/2024): Assessment- patient with pus from around PEG tube site Plan EGD with removal in am Posterior glottic stenosis 05/25/2021 0 11/14/2024 Psychogenic nonepileptic seizure 02/16/2021 11/14/2024 Overview (11/11/2022): Last Assessment & Plan: H/O psychogenic nonepileptic seizures, last occurring in 2019 per patient. States that her episode of jaw clenching following surgery in October was different than her previous seizure-like activity. She had normal EEG in October. Gastroparesis 02/16/2021 11/14/2024 History of anesthesia complications 02/16/2021 11/14/2024 History of recent steroid use 02/16/2021 11/14/2024 Preop examination 02/16/2021 11/14/2024 Sinusitis 02/16/2021 11/14/2024 Malnutrition of moderate degree (HHS-HCC) 12/23/2020 11/14/2024 Overview (09/27/2024): Improved PO intake, off tube feed for weeks Weight stable - Consult to nutrition for intake assessment - Regular diet - DC PEG Serotonin syndrome 12/22/2020 Injury to bile duct and gall bladder, initial encounter 01/24/2017 11/14/2024 Acute encephalopathy 11/01/2015 025 Unspecified abnormal involuntary movements 11/01/2015 11/14/2024 Acute respiratory failure with hypoxia 10/31/2015 11/14/2024 Tachycardia 10/23/2014 11/14/2024 Overview (09/27/2024): On metop XL OP - Resume metop Encounters Date Type Department Care Team Description 12/05/2024 Refill [facility] [address] [phone] Donna Oconnor NP Insomnia, psychophysiological 12/04/2024 Patient Outreach [facility] [address] [place] [place] [address] Monday, Paz, DIETARY SERVER 12/04/2024 [facility] [address] [place] [phone] Kapil Patel DO 12/04/2024 [facility] [address] [place] [phone] Kami Fuentes MA Insomnia, psychophysiological 12/03/2024 Results Follow-Up [facility] [address] [place] [phone] Kapil Patel DO Comprehensive metabolic panel, Ferritin, Vitamin B12, Additional followed-up results: 13 12/02/2024 Refill [facility] [address] [place] [phone] Kapil Patel, DO Pancreatic insufficiency (HCC) (Primary Dx) 12/02/2024 Telephone [facility] [address] [place] [phone] Kapil Patel, DO 11/30/2024 Refill [facility] [address] [facility] [address] [place] [phone] Cole Phillip MD Depression, unspecified depression type 11/29/2024 External Result Encounter [facility] External Department Unsolicited Marcelle Ryan MD 11/29/2024 External Result Encounter [facility] External Department Unsolicited Marcelle Ryan MD 11/29/2024 External Result Encounter [facility] External Department Unsolicited Marcelle Ryan MD 11/29/2024 External Result Encounter [facility] External Department Unsolicited Marcelle Ryan MD 11/29/2024 External Result Encounter [facility] External Department Unsolicited Marcelle Ryan MD 11/28/2024 Patient Outreach [facility] [address] [place] [address] MondayPaz LPN 11/22/2024 10:30 AM EDT Office Visit [facility] [address] [place] [address] Kapil Patel, Diarrhea, unspecified type (Primary Dx); Chronic fatigue 11/22/2024 Abstract [facility] [address] [place] [address] Kapil Patel, DO 11/22/2024 Bamboo flowsheet [facility] [address] [place] [phone] Kapil Patel, DO 11/22/2024 Travel 11/21/2024 Patient Outreach [facility] [address] [place] [address] Magda Barcenas LPN 11/20/2024 Abstract [facility] [address] [place] [address] Kapil Patel, DO 11/20/2024 Abstract [facility] [address] [place] [address] Kapil Patel, DO 11/19/2024 Abstract [facility] [address] [place] [address] Kapil Patel, DO 11/19/2024 Abstract [facility] [address] [place] [address] Kapil Patel, DO 11/19/2024 Abstract [facility] [address] [place] [address] Kapil Patel, DO 11/19/2024 Abstract [facility] [address] [place] [address] Kapil Patel, DO 11/19/2024 Abstract [facility] [address] [place] [address] Kapil Patel, DO 11/18/2024 Abstract [facility] [address] [place] [address] Kapil Patel, DO 11/14/2024 8:30 AM EDT Office Visit [facility] [address] [place] [address] Kapil Patel, DO Generalized pain (Primary Dx); Abdominal pain, unspecified abdominal location; Nausea 11/14/2024 Bamboo flowsheet [facility] [address] [place] [address] Kapil Patel, DO 11/14/2024 Travel 11/13/2024 Abstract [facility] [address] [place] [address] Kapil Patel, DO 11/12/2024 Travel 11/12/2024 Telephone [facility] [address] [place] [phone] Kapil Patel, DO Appointment Request 11/04/2024 Abstract [facility] [address] [place] [address] Kami Olvera MD 10/30/2024 2:05 PM EDT Ancillary Procedure [facility] [address] [place] [address] 10/30/2024 2:00 PM EDT Office Visit [facility] [address] [place] [phone] Pérez Deleon DPM Hav (hallux abducto valgus), right (Primary Dx); Contracture of right ankle 10/30/2024 Bamboo flowsheet [facility] [address] [place] [address] Pérez Deleon DPM 10/28/2024 3:00 PM EDT Office Visit [facility] [address] [place] [phone] Reji De Luna, DO Thyroid nodule 10/28/2024 Bamboo flowsheet [facility] [address] [place] [address] Reji De Luna, DO 10/28/2024 Travel 10/23/2024 Refill [facility] [place] [facility] [address] [place] [address] Cole Phillip MD Migraine without aura, intractable, with status migrainosus 10/22/2024 4:15 PM EDT Office Visit [facility] [address] [facility] [address] [facility] [address] [place] [phone] Cole Phillip MD Migraine without aura, intractable, with status migrainosus (Primary Dx); Pituitary gland enlarged (HCC); Insomnia, psychophysiological; Cervical paraspinal muscle spasm; Intractable chronic migraine without aura and with status migrainosus 10/22/2024 Refill [facility] [address] [facility] [address] [place] [address] Cole Phillip MD Migraine without aura, intractable, with status migrainosus 10/22/2024 Bamboo flowsheet [facility] [address] [place] [address] Cole Phillip MD 10/22/2024 Travel 10/16/2024 3:00 PM EDT Office Visit [facility] [address] [place] [address] Pérez Deleon DPM Hav (hallux abducto valgus), right (Primary Dx); Contracture of right ankle 10/16/2024 Bamboo flowsheet [facility] [address] [place] [address] Pérez Deleon DPM 10/14/2024 Orders Only [facility] [address] [place] [address] Kami Olvera MD Thyroid nodule (Primary Dx) 10/09/2024 2:05 PM EDT Ancillary Procedure [facility] [address] [place] [address] 10/09/2024 2:00 PM EDT Office Visit [facility] [address] [place] [address] Pérez Deleon DPM Hav (hallux abducto valgus), right (Primary Dx); Contracture of right ankle 10/09/2024 Bamboo flowsheet [facility] [address] [place] [address] Pérez Deleon DPM 10/08/2024 10:45 AM EDT Ancillary Procedure [facility] [address] [facility] [address] [place] [phone] Thyroid enlarged 10/08/2024 Travel 10/02/2024 Abstract [facility] [address] [facility] [address] [place] [phone] Pérez Deleon DPM 09/28/2024 Orders Only [place] [address] [place] [address] Kami Olvera MD 09/28/2024 Results Follow-Up [place] [address] [place] [phone] Jessica Morris NP TSH W/REFLEX TO FT4, US thyroid 09/27/2024 3:50 PM EDT Office Visit [facility] [address] [place] [address] Pérez Deleon DPM Hav (hallux abducto valgus), right (Primary Dx); Contracture of right ankle 09/27/2024 1:00 PM EDT Office Visit [facility] [address] [place] [address] Kami Olvera MD Preop examination (Primary Dx); Thyroid enlarged 09/27/2024 Abstract [facility] [address] [place] [address] Pérez Deleon DPM 09/27/2024 Bamboo flowsheet [facility] [address] [place] [address] Kami Olvera MD 09/27/2024 Travel 09/18/2024 Abstract [facility] [address] [place] [address] Pérez Deleon DPLeif 09/16/2024 Orders Only [facility] [address] [place] [address] Marbella Zhang Preop examination from Last 3 Months Immunizations Immunization Administration Dates Next Due DTP 1994 DTP / HiB 1994,1994 DTaP, Unspecified 06/23/1999,10/09/1995 HPV, Quadrivalent 03/10/2011,12/06/2010,10/16/19 09 HPV, Unspecified 08/19/2011 Hep B, Adolescent or Pediatric 1994,1994,1994 HiB, unspecified 10/09/1995,1994 IPV 06/23/1999 MMR 06/23/1999,01/16/1995 Meningococcal MCV4P 12/06/2010,10/15/2008 OPV 1994,1994,1994 Tdap 10/15/2008 Varicella 12/06/2010,10/01/2001 Family History Medical History Relation Name Comments Hypertension Father Atrial fibrillation Mother Cancer Paternal Grandfather Diabetes Paternal Grandfather Relation Name Status Comments Father Alive Mother Alive Paternal Grandfather Social History Tobacco Use Types Packs/Day Years Used Date Smoking Tobacco: Never Tobacco Cessation:Counseling Given: Yes Alcohol Use Standard Drinks/Week Comments Not Currently [...] week 11/12/2024 How often do you attend [facility] or baptism services? More than 4 times per year 11/12/2024 Do you belong to any clubs o r organizations such as zoroastrianism groups, unions, fraternal or athletic groups, or [...] Recorded Patient Health Questionnaire-2 Score 0 11/22/2024 [facility] - Occupational Stress Questionnaire Answer Date [...] any time in the past 12 m [facility], were you homeless or living in a longterm (including now)? No 11/12/2024 Comments Unknown Sex and Gender Information Value Date Recorded Sex Assigned at Not on file Legal Sex Female 6:39 PM EDT Gender Identity Female 06/01/2022 6:39 PM EDT Sexual Orientation Not on file Last Filed Vital Signs Vital Sign Reading Time Taken Comments Blood Pressure 122/70 11/22/2024 10:46 AM EDT Pulse 62 11/22/2024 10:46 AM EDT Temperature 36.5 C (97.7 F) 11/22/2024 10:46 AM EDT Respiratory Rate 16 10/30/2024 2:09 PM EDT Oxygen Saturation 97% 11/22/2024 10:46 AM EDT Inhaled Oxygen Concentration - - Weight 63 kg (139 lb) 11/22/2024 10:46 AM EDT Height 170.2 cm (5' 7 ) 11/22/2024 10:46 AM EDT Body Mass Index 21.77 11/22/2024 10:46 AM EDT Plan of Treatment Upcoming Encounters Date Type Department Care Team (Late st Contact Info) Description 04/29/2025 2:00 PM EST Office Visit [facility] [address] [place] [address] Cole Phillip MD [address] [facility] [address] [address] 04/30/2025 2:15 PM EST Office Visit [facility] [address] [place] [address] Reji De Luna W, DO [address] [place] [address] Health Maintenance Due Date Last Done Comments Pap Smear 2015 Cervical Cancer Screening 01/02/2024 HPV/Cotest 01/02/2024 Influenza Vaccine (#1) 2024 Procedures Procedure Name Priority Date/Time Associated Diagnosis Comments CT SOFT TISSUE NECK W IV CONTRAST 11/29/2024 1:[address] CHEST W IV CONTRAST 1:13 PM EDT COPPER Routine 11/29/2024 8:50 AM EDT CERULOPLASMIN Routine 11/29/2024 8:50 AM EDT VIT. B12/FOLATE PROFILE Routine 11/29/2024 8:50 AM EDT FERRITIN Routine 11/29/2024 8:50 AM EDT T4, FREE Routine 11/29/2024 8:50 AM EDT TSH Routine 11/29/2024 8:50 AM EDT IRON AND TOTAL IRON BINDING CAPACITY Routine 11/29/2024 8:50 AM EDT LD Routine 11/29/2024 8:50 AM EDT RESULT Routine 11/26/2024 10:48 AM EDT RESULT Routine 11/26/2024 10:48 AM EDT RESULT Routine 11/26/2024 10:48 AM EDT CALPROTECTIN STOOL Routine 11/26/2024 10 :48 AM [...] AM EDT Diarrhea, unspecified type Chronic fatigue OVA AND PARASITES WITH GIARDIA ANTIGEN Routine 11/26/2024 10:48 AM EDT Diarrhea, unspecified type Chronic fatigue MAGNESIUM Routine 11/26/2024 10:48 AM EDT Diarrhea, unspecified type Chronic fatigue FOLATE, SERUM Routine 11/26/2024 10:48 AM EDT Chronic fatigue VITAMIN B12 Routine 11/26/2024 10:48 AM EDT Diarrhea, unspecified type Chronic fatigue FERRITIN Routine 11/26/2024 10:48 AM EDT Diarrhea, unspecified type Chronic fatigue COMPREHENSIVE METABOLIC PANEL Routine 11/26/2024 10:48 AM EDT Diarrhea, unspecified type Chronic fatigue CLOSTRIDIUM DIFFICILE TOXIN Routine 11/26/2024 10:48 AM EDT Diarrhea, unspecified type Chronic fatigue STOOL CULTURE Routine 11/26/2024 10:48 AM EDT Diarrhea, unspecified type Chronic fatigue XR FOOT 3+ VIEWS RIGHT Routine 5 2:04 PM EDT Hav (hallux abducto valgus), right XR FOOT 3+ VIEWS RIGHT Routine 5 2:00 PM EDT Hav (hallux abducto valgus), right US THYROID Routine 10/08/2024 10:51 AM EDT Thyroid enlarged HEMATOLOGY COMMENTS: Routine 09/28/2024 11:34 AM EDT TSH W/REFLEX TO FT4 Routine 09/27/2024 1 :31 PM EDT Thyroid enlarged from Last 3 Months Results * CT soft tissue neck w IV contrast (11/29/2024 1:16 PM EDT) Anatomical Region Laterality Modality Head, Neck Computed Tomogra phy 11/29/2024 1:16 PM EDT Impressions 11/29/2024 1:[address] soft tissue neck. No pathologically enlarged lymph nodes. Impression dictated by: Jesus Ledesma Jr., D.O. 11/29/2024 1:18 PM Dictation Location: [place] [address] Transcribed By: [facility] 11/29/24 1318 Dictated By: Jesus Ledesma Jr, DO 11/29/24 1316 Signed By: <Electronically signed by Jesus Ledesma Jr, DO in [place]> 11/29/24 1318 Narrative 11/29/2024 1:20 PM EDT [facility] [place] [address] CT Scan Report Signed Patient: Negro Stacy MR#: [id number] 46 : 1995 Acct:[id number] Age/Sex: 29 / F ADM Date: 11/29/24 Loc: XT Room: Type: [facility] Attending Dr: Marcelle Ryan MD Copies to: Marcelle Ryan MD Ordering Provider: Marcelle Ryan MD Date of Service: 11/29/24 CT/CT soft tissue neck w con: C81.90 - Hodgkin lymphoma, unspecified, unspecified site CT soft tissue neck w con 11/29/2024 9:24 AM SIGNS AND SYMPTOMS: C81.90 - Hodgkin lymphoma, unspecified, unspecified site TECHNIQUE: [...] appreciated. CT/CT soft tissue neck w con Procedure Note Jesus Ledesma Jr., DO - 11/29/2024 [facility] [place] [address] [place] [address] CT Scan Report Signed Patient: Negro Stacy KMR#: [id number] 46 : 1995Acct:[id number] Age/Sex: 29 / FADM Date: 11/29/24 Loc: XT Room:Type: [facility] Attending Dr: Marcelle Ryan MD Copies to: Marcelle Ryan MD Ordering Provider: Marcelle Ryan MD Date of Service: 11/29/24 CT/CT soft tissue neck w con: C81.90 - Hodgkinlymphoma, unspecified, unspecified site CT soft tissue neck w con 11/29/2024 9:24 AM SIGNS AND SYMPTOMS: C81.90 - Hodgkin lymphoma, unspecified, unspecified site TECHNIQUE: Multidetector CT axial slices of the soft tissues of the neckwere obtained with IV contrast. Sagittal and coronal reformats were reconstructed. CT wasperformed with one or more of the following dose reduction techniques: Automated exposure control,adjustment of the mA and/or kV according to patient size, or use of iterative reconstruction technique. COMPARISON: None FINDINGS: Mucosal surfaces of the nasopharynx, oropharynx, hypopharynx, glottic,and subglottic airways are grossly unremarkable. No pathologically enlarged lymph nodes are noted. The parotid glands, submandibular, and the thyroid gland are within normallimits. The carotid and jugular circulations are within normal limits. No acute bony abnormalities are appreciated. CT/CT soft tissue neck w con IMPRESSION: Unremarkable CT soft tissue neck. No pathologically enlarged lymph nodes. Impression dictated by: Jesus Ledesma Jr., D.O. 11/29/2024 1:18 PM Dictation Location: RADIO-PC-22 Transcribed By: ANNABELLA 11/29/24 1318 Dictated By: Jesus Ledesma Jr, DO 11/29/24 1316 Signed By: <Electronically signed by Jesus Ledesma Jr, DO inOV> 11/29/24 1318 us Marcelle Ryan MD IMG CT PROCEDURES Final Result * CT chest w IV contrast (11/29/2024 1:13 PM EDT) Anatomical Region Laterality Modality Body, Chest Computed Tomogra phy 11/29/2024 1:13 PM EDT Impressions 11/29/2024 1:18 PM EDT No acute findings. No pathologically enlarged lymph nodes seen within the chest. Impression dictated by: Jesus Ledesma Jr., D.O. 11/29/2024 1:16 PM Dictation Location: RADIO-PC-22 Transcribed By: [facility] 11/29/241315 Dictated By: Jesus Ledesma Jr, DO 11/29/24 1313 Signed By: <Electronically signed by Jesus Ledesma Jr, DO in OV> 11/29/24 1316 Narrative 11/29/2024 1:18 PM EDT [facility] [place] [address] CT Scan Report Signed Patient: Negro Stacy MR#: [id number] 46 : 1995 Acct:[id number] Age/Sex: 29 / F ADM Date: 11/29/24 Loc: Room: Type: [facility] RCR Attending Dr: Marcelle Ryan MD Copies to: Marcelle Ryan MD Ordering Provider: Marcelle Ryan MD Date of [...] minimal degenerative change. CT/CT chest w con Procedure Note Jesus Ledesma Jr., DO - 11/29/2024 [facility] [place] [address] [place] [address] CT Scan Report Signed Patient: Negro Stacy KMR#: [id number] 46 : 1995Acct:[id number] Age/Sex: 29 / FADM Date: 11/29/24 Loc: Room:Type: [facility] Attending Dr: Marcelle Ryan MD Copies to: Marcelle Ryan MD Ordering Provider: Marcelle Ryan MD Date of Service: 11/29/24 CT/CT chest w con: C81.90 - Hodgkin lymphoma,unspecified, unspecified site CT CHEST WITH INTRAVENOUS CONTRAST: CLINICAL HISTORY: Restaging Hodgkin's lymphoma. COMPARISON: Outside CT chest 05/22/2024. No report. TECHNIQUE: Spiral images were obtained through the chest followingintravenous administration of IV contrast. This CT exam was performed using one or more following dosereduction techniques: Automated exposure control, adjustment of the mA and/or kV according topatient size, or use of iterative reconstruction technique. FINDINGS: Mediastinum:Thoracic aorta appears normal in caliber. Pulmonary trunkappears nondilated. No pericardial effusion. Residual thymic tissue is present. Nolymphadenopathy. The esophagus is grossly unremarkable. Lungs:No consolidation pneumothorax or pleural effusion. Mild dependentatelectatic changes. Abd:No acute process. No lymphadenopathy. Soft tissues/Bones: No axillary or subpectoral lymphadenopathy. Osseousstructures demonstrate minimal degenerative change. CT/CT chest w con IMPRESSION: No acute findings. No pathologically enlarged lymph nodes seen within thechest. Impression dictated by: Jesus Ledesma Jr., D.OGhassan 11/29/2024 1:16 PM Dictation Location: [place] [address] Transcribed By: [facility] 11/29/24 1316 Dictated By: Jesus Ledesma Jr, DO 11/29/24 1313 Signed By: <Electronically signed by Jesus Ledesma Jr, DO inOV> 11/29/24 1316 us Marcelle Ryan MD IMG CT PROCEDURES Final Result * VIT. B12/FOLATE PROFILE (11/29/2024 8:50 AM EDT) VITAMIN B12 312 180 - 914 pg/mL 11/29/2024 11:10 AM EDT [facility] FOLATE 9.3 >5.9 ng/mL 11/29/2024 11:08 AM EDT [facility] Comment: Folate reference range: >5.9 ng/ml The WHO technical consultation on folate and vitamin b12 deficiencies has determined that folate concentrations less than 4 ng/ml are considered deficient. Other Topography unknown / Unknown 11/29/2024 8:50 AM EDT 11/29/2024 8:54 AM EDT us Marcelle Ryan MD LAB BLOOD ORDERABLES Final Resul t [facility] [address] [place] [address], [facility] [address] [place] [address] * (ABNORMAL) Iron and TIBC (11/29/2024 8:50 AM EDT) IRON 106 50 - 212 ug/dL 11/29/2024 10:44 AM EDT [facility] TOTAL IRON BINDING CAPACITY 246(L) 255 - 450 ug/dL 11/29/2024 10:44 AM EDT [facility] % IRON SATURATION 43.1 20 - 50 % 11/29/2024 10:44 AM EDT [facility] TRANSFERRIN 176(L) 203 - 362 mg/dL 11/29/2024 10:44 AM EDT [facility] Other Topography unknown / Unknown 11/29/2024 8:50 AM EDT 11/29/2024 8:54 AM EDT Marcelle Ryan MD LAB BLOOD ORDERABLES Final Resul t Performing Organization Address [facility] [place] [address], [place] [address] * Copper, serum (11/29/2024 8:50 AM EDT) COPPER 65 80 - 158 ug/dL 12/03/2024 8:36 AM EDT [facility] Comment: This test was developed and its performance characteristics determined by [facility]. It has not been cleared or approved by the Food and Drug Administration. Detection Limit = 5 Performed at: [address] [id number] Proof Inspector: Carlos Guerra MD, Phone: [phone] Other Topography unknown / Unknown 11/29/2024 8:50 AM EDT 11/29/2024 8:54 AM EDT us Marcelle Ryan MD LAB BLOOD ORDERABLES Final Resul t Performing Organization Address [facility] [place] [address], * Ceruloplasmin (11/29/2024 8:50 AM EDT) CERULOPLASMIN 14.8 19.0 - 39.0 mg/dL 11/30/2024 4:36 AM EDT [facility] Comment: Performed at: [facility] [id number] Proof Inspector: Shiva Christopher PhD, Phone: [phone] Other Topography unknown / Unknown 11/29/2024 8:50 AM EDT 11/29/2024 8:54 AM EDT us Marcelle Ryan MD LAB BLOOD ORDERABLES Final Resul t Performing Organization Address City/[facility]/ZIP Co de Phone Number [place] [phone], * (ABNORMAL) TSH (11/29/2024 8:50 AM EDT) THYROID STIMULATING HORMONE 0.33(L) 0.45 - 5.33 u[iU]/mL 11/29/2024 10:59 AM EDT [facility] Other Topography unknown / Unknown 11/29/2024 8:50 AM EDT 11/29/2024 8:54 AM EDT us Marcelle Ryan MD LAB BLOOD ORDERABLES Final Resul t Performing Organization Address [facility]/ZIP Co de Phone Number [address] [address], [facility] [address] [place] [address] * T4, free (11/29/2024 8:50 AM EDT) FREE T4 (FREE THYROXINE) 0.62 0.61 - 1.12 ng/dL 11/29/2024 11:00 AM EDT [facility] Other Topography unknown / Unknown 11/29/2024 8:50 AM EDT 11/29/2024 8:54 AM EDT us Marcelle Ryan MD LAB BLOOD ORDERABLES Final Resul t Performing Organization Address City/[facility]/ZIP Co de Phone Number [address] [address], [facility] [address] [place] [address] * Lactate dehydrogenase (11/29/2024 8:50 AM EDT) LDH LACTATE DEHYDROGENASE 143 140 - 271 U/L 11/29/2024 10:44 AM EDT [facility] Other Topography unknown / Unknown 11/29/2024 8:50 AM EDT 11/29/2024 8:54 AM EDT Marcelle Ryan MD LAB BLOOD ORDERABLES Final Resul t Performing Organization Address City/[facility]/[place]IP [place] [address], [place] [phone] * Ferritin (11/29/2024 8:50 AM EDT) Only the most recent of2 resultswithin the time period is included. FERRITIN 29.9 11.0 - 306.8 ng/mL 11/29/2024 11:05 AM EDT [facility] Other Topography unknown / Unknown 11/29/2024 8:50 AM EDT 11/29/2024 8:54 AM EDT Marcelle Ryan MD LAB BLOOD ORDERABLES Final Resul t Performing Organization Address City/[facility] Co de Phone Number [address] [address], [address] [address] * RESULT (11/26/2024 10:48 AM EDT) RESULT 1 Comment [facility] Comment: No ova, cysts, or parasites seen. One negative specimen does not rule out the possibility of a parasitic infection. 11/26/2024 10:4 8 AM EDT 11/26/2024 Narrative [facility] - 12/03/2024 8:07 AM EDT Performed at: [facility] [id number] Proof Inspector: Shiva Christopher PhD, Phone: [phone] Kapil Patel DO LAB BLOOD ORDERABLES Final Result Performing Organization Address [facility] de Phone Number [facility] * RESULT (11/26/2024 10:48 AM EDT) RESULT 1 Comment [facility] Comment:No Campylobacter spe cies isolated. 11/26/2024 10:4 8 AM EDT 11/26/2024 Narrative [facility] - 12/03/2024 8:07 AM EDT Performed at: 01 - [address] [id number] Proof Inspector: Shiva Christopher PhD, Phone: [phone] Kapil Patel DO LAB BLOOD ORDERABLES Final Result Performing Organization Address [facility] Phone Number [facility] * RESULT (11/26/2024 10:48 AM EDT) RESULT 1 Comment [facility] Comment:No Salmonella or Johanny gella recovered. 11/26/2024 10:4 8 AM EDT 11/26/2024 Narrative [facility] - 12/03/2024 8:07 AM EDT Performed at: [address] [place] [id number] Proof Inspector: Shvia Christopher PhD, Phone: [phone] Kapil Patel DO LAB BLOOD ORDERABLES Final Result Performing Organization Address [facility] Phone Number [facility] * Ova and parasites with giardia antigen (11/26/2024 10:48 AM EDT) OVA + PARASITE EXAM Final report [facility] Comment: These results were obtained using wet preparation(s) and trichrome stained smear. This test does not include testing for Cryptosporidium parvum, Cyclospora, or Microsporidia. Giardia lamblia Ag, EIA Negative Negative [facility] Stool Rectal contents / Unknown 11/26/2024 10:48 AM EDT 11/26/2024 Comment:[facility]- [id number] Narrative [facility] - 12/03/2024 8:07 AM EDT Performed at: 01 - [address] [id number] Proof Inspector: Shiva Christopher PhD, Phone: [phone] Kapil Patel LAB BODY FLUIDS AND STOOLS ORDERABLES Final Result Performing Organization Address [facility] de Phone Number [facility] * CALPROTECTIN STOOL (11/26/2024 [...] 12/03/2024 8:07 AM EDT Performed at: 02 - [address] [id number] Proof Inspector: Carlos Guerra MD, Phone: [phone] Kapil Patel LAB BODY FLUIDS AND STOOLS ORDERABLES Final Result Performing Organization Address [facility] Co de Phone Number [facility] * Iron + transferrin + TIBC (11/26/2024 10:48 AM EDT) Iron Bind.Cap.(TIBC) 256 250 - 450 ug/dL [facility] UIBC 159 131 - 425 ug/dL [facility] Iron 97 27 - 159 ug/dL [facility] Iron Saturation 38 15 - 55 % [facility] TRANSFERRIN 209 192 - 364 mg/dL [facility] Blood 11/26/2024 10:4 8 AM EDT 11/26/2024 Narrative [facility] - 12/03/2024 8:07 AM EDT Performed at: 01 - [address] [place] [id number] Proof Inspector: Shiva Christopher PhD, Phone: [phone] Kapil Patel DO LAB BLOOD ORDERABLES Final Result Performing Organization Address [facility] de Phone Number [facility] * H. pylori antigen, stool (11/26/2024 10:48 AM EDT) H. PYLORI STOOL AG, EIA Negative Negative [facility] Stool Rectal contents / Unknown 11/26/2024 10:48 AM EDT 11/26/2024 Comment:[facility]- [id number] Narrative [facility] - 12/03/2024 8:07 AM EDT Performed at: 01 - [address] [id number] Proof Inspector: Shiva Christopher PhD, Phone: [phone] Kapil Patel DO LAB BODY FLUIDS AND STOOLS ORDERABLES Final Result Performing Organization Address [facility] Phone Number [facility] * Clostridium difficile toxin (11/26/2024 10:48 AM EDT) C DIFFICILE, CYTOTOXIN B Comment [facility] Comment: Negative No cytotoxin detected. Reference Range: Negative Stool Rectal contents / Unknown 11/26/2024 10:48 AM EDT 11/26/2024 Comment:[facility]- [id number] Narrative [facility] - 12/03/2024 8:07 AM EDT Performed at: 01 - [facility] [id number] Proof Inspector: Shiva Christopher PhD, Phone: [phone] Kapil Patel DO LAB MICROBIOLOGY - GENERAL ORDERABLES Final Result Performing Organization Address [facility] de Phone Number [facility] * Stool culture (11/26/2024 10:48 AM EDT) SALMONELLA/SHIGEL LA SCREEN Final report [facility] CAMPYLOBACTER CULTURE Final report [facility] E COLI SHIGELLA TOXIN EIA Negative Negative [facility] Stool Rectal contents / Unknown 11/26/2024 10:48 AM EDT 11/26/2024 Comment: - [id number] Narrative [facility] - 12/03/2024 8:07 AM EDT Performed at: [address] [place] [id number] Proof Inspector: Shiva Chrisotpher PhD, Phone: [phone] Kapil Patel DO LAB MICROBIOLOGY - GENERAL ORDERABLES Final Result Performing Organization Address [facility] de Phone Number [facility] * (ABNORMAL) Magnesium (11/26/2024 10:48 AM EDT) Magnesium 2.4(H) 1.6 - 2.3 mg/dL [facility] Blood Venous blood specimen / Unknown 11/26/2024 10:48 AM EDT 11/26/2024 Narrative [facility] - 12/03/2024 8:07 AM EDT Performed at: [address] [place] [id number] Proof Inspector: Shiva Christopher PhD, Phone: [phone] Kapil Patel DO LAB BLOOD ORDERABLES Final Result Performing Organization Address [facility] de Phone Number [facility] * Lipase (11/26/2024 10:48 AM EDT) LIPASE 33 14 - 72 U/L [facility] Blood Venous blood specimen / Unknown 11/26/2024 10:48 AM EDT 11/26/2024 Narrative [facility] - 12/03/2024 8:07 AM EDT Performed at: [address] [place] [id number] Proof Inspector: Shiva Christopher PhD, Phone: [phone] Kapil Patel DO LAB BLOOD ORDERABLES Final Result Performing Organization Address City/[facility]/ZIP Co de Phone Number [facility] * Folate (11/26/2024 10:48 AM EDT) Folate 6.4 >3.0 ng/mL [facility] Comment: A serum folate concentration of less than 3.1 ng/mL is considered to represent clinical deficiency. Blood Venous blood specimen / Unknown 11/26/2024 10:48 AM EDT 11/26/2024 Narrative [facility] - 12/03/2024 8:07 AM EDT Performed at: [address] [place] [id number] Proof Inspector: Shiva Christopher PhD, Phone: [phone] Kapil Patel LAB BLOOD ORDERABLES Final Result Performing Organization Address [facility] Phone Number [facility] * Vitamin B12 (11/26/2024 10:48 AM EDT) Vitamin B12 469 232 - 1,245 pg/mL [facility] Blood Venous blood specimen / Unknown 11/26/2024 10:48 AM EDT 11/26/2024 Narrative [facility] - 12/03/2024 8:07 AM EDT Performed at: [address] [place] [id number] Proof Inspector: Shiva Christopher PhD, Phone: [phone] Kapil Patel DO LAB BLOOD ORDERABLES Final Result Performing Organization Address [facility] de Phone Number [facility] * Amylase (11/26/2024 10:48 AM EDT) AMYLASE 43 31 - 110 U/L [facility] Blood Venous blood specimen / Unknown 11/26/2024 10:48 AM EDT 11/26/2024 Narrative [facility] - 12/03/2024 8:07 AM EDT Performed at: [address] [place] [id number] Proof Inspector: Shiva Christopher PhD, Phone: [phone] us Kapil Patel DO LAB BLOOD ORDERABLES Final Result [...] 8:07 AM EDT Performed at: 01 - [facility] [id number] Proof Inspector: Shiva Christopher PhD, Phone: [phone] us Kapil Patel DO LAB BLOOD ORDERABLES Final Result [facility] * XR foot 3+ views right (10/30/2024 2:04 PM EDT) Only the most recent of2 resultswithin the time period is included. Anatomical Region Laterality Modality Lower Extremities, Foot Right Radiogra phic Imaging Narrative 10/30/2024 2:11 PM EDT Imaging Result: Notable bunionectomy site intact screw fixation intact and minimal edema to bunionectomy site us Pérez Deleon DPM IMG XR PROCEDURES Final Res ult * US thyroid (10/08/2024 10:51 AM EDT) Anatomical Region Laterality Modality Head, Neck Ultrasound 10/08/2024 2:18 PM EDT Impressions 10/08/2024 2:25 PM EDT Thyroid nodules as detailed. ACR recommendations: TI-RADS level 1: Benign: No FNA TI-RADS level 2: Not suspicious: No FNA TI-RADS level 3: Mildly suspicious: FNA if ? 2.5 cm; Follow if ? 1.5 cm at 1, 3, and 5 years. TI-RADS level 4: Moderately suspicious: FNA if ? 1.5 cm; Follow if ? 1 cm at 1, 2, 3, and 5 years. TI-RADS level 5: Highly Suspicious: FNA if ? 1 cm; Follow if ? 0.5 cm annually until 5 years. ELECTRONICALLY SIGNED BY: Zak Holbrook DO Narrative 10/08/2024 2:25 PM EDT US THYROID History: Enlarged thyroid Technique: Ultrasound evaluation was performed of the thyroid gland. Comparison: None available Findings: The right lobe of the thyroid gland measures 4.8 x 1.4 x 1.7 cm. The right lobe is homogenous. A TI-RADS 4 nodule measures 0.8 x 0.6 x 0.9 cm. A TI-RADS 1 nodule measures 0.4 x 0.4 x 0.3 cm. The left lobe of the thyroid gland measures 4.8 x 1.4 x 1.3 cm. The left lobe is homogenous and without nodules. The isthmus measures 0.2 cm. Thyroid vascularity is within normal limits. Procedure Note Zak Holbrook DO - 10/08/2024 US THYROID History: Enlarged thyroid Technique: Ultrasound evaluation was performed of the thyroid gland. Comparison: None available Findings: The right lobe of the thyroid gland measures 4.8 x 1.4 x 1.7 cm. The rightlobe is homogenous. A TI-RADS 4 nodule measures 0.8 x 0.6 x 0.9 cm. ATI-RADS 1 nodule measures 0.4 x 0.4 x 0.3 cm. The left lobe of the thyroid gland measures 4.8 x 1.4 x 1.3 cm. The leftlobe is homogenous and without nodules. The isthmus measures 0.2 cm. Thyroid vascularity is within normallimits. IMPRESSION: Thyroid nodules as detailed. ACR recommendations: TI-RADS level 1: Benign: No FNA TI-RADS level 2: Not suspicious: No FNA TI-RADS level 3: Mildly suspicious: FNA if ? 2.5 cm; Follow if ? 1.5 cm at1, 3, and 5 years. TI-RADS level 4: Moderately suspicious: FNA if ? 1.5 cm; Follow if ? 1 cmat 1, 2, 3, and 5 years. TI-RADS level 5: Highly Suspicious: FNA if ? 1 cm; Follow if ? 0.5 cmannually until 5 years. ELECTRONICALLY SIGNED BY: Zak Holbrook DO us Kami Olvera MD IMG US PROCEDURES Final Resul t * Hematology Comments: (09/28/2024 11:34 AM EDT) Other Kami Olvera MD LAB BLOOD ORDERABLES Final Re sult * TSH W/REFLEX TO FT4 (09/27/2024 1:31 PM EDT) TSH W/REFLEX TO FT4 0.80 mIU/L [facility] Comment: Reference Range > or = 20 Years 0.40-4.50 Ranges First trimester 0.26-2.66 Second trimester 0.55-2.73 Third trimester 0.43-2.91 09/27/2024 1:31 PM EDT 09/27/2024 1:32 PM EDT Narrative Resulting Agency Comment Performing Organization Information Site ID: QPT Name: [facility] Address: [address] [place] [phone] Director: Gasper Weldon MD Kami Olvera MD LAB BLOOD ORDERABLES Final Re sult [facility] from Last 3 Months Insurance [facility] Care Teams Periodontist Relationship Specialty Start Date End Date Kapil Patel DO [address] [place] [address] PCP - General Family Medicine 10/08/24 Kapil Patel DO [address] [place] [phone] JEISON Roque 10/24/24
--- OUTSIDE RECORDS SUMMARY | 2024-12-05 10:38 | XMS_ITS | Encounter Summary ---
Author Organization [facility] Address [address] [place] [address] Care Team Providers Care Assembler Musical Instruments Name Role Phone Kami Olvera MD Primary Care Provider [phone] David House MD Unavailable [phone] Rubens Singh MD Unavailable [phone] Source Comments In the event this information is protected by the Federal Confidentiality of Alcohol and Drug AbusePatient Records regulations: The Federal rules restrict any use of the information to criminally investigate or prosecute any alcohol or drug abuse patient.[facility] Encounter Details Date Type Department Care Team (Late st Contact Info) Description 09/10/2024 [place] [address] Provider, [facility] Sign up to manage your [...] place to sleep or slept in a skilled nursing (including now)? No 09/08/2021 Area Deprivation Index Answer Date Juan rded National Score (1-100), lower number is lower ri sk 73 10/14/2022 State Score (1-10), lower number is lower risk 6 10/14/2022 Data from: https://www.neigh borhoodatlas.medicine.[facility].edu/. Last address used for calculation [address] [...] on filedocumented in this encounter Care Teams Assembler Musical Instruments Relationship Specialty Start Date End Date Kami Olvera MD [address] [place] [phone] PCP - General Family Medicine 02/01/17 David House MD [address] [place] [phone] Physician Hematology/Oncology 07/27/21 Rubens Singh MD [address] [place] [address] Physician Hematology/Oncology 10/08/21 [facility] Provider 08/30/21 documented as of this encounter
--- OUTSIDE RECORDS SUMMARY | 2024-12-05 10:38 | XMS_ITS | Encounter Summary ---
Author Organization [facility] Address [address] [place] [address] Care Team Providers Care Manager Android Name Role Phone Kami Olvera MD Primary Care Provider [phone] Jazzy Dunn RN Unavailable [phone] David House MD Unavailable [phone] Odette Lopez PA-C Unavailable [phone] Rubens Singh MD Unavailable [phone] Source Comments In the event this information is protected by the Federal Confidentiality of Alcohol and Drug AbusePatient Records regulations: The Federal rules restrict any use of the information to criminally investigate or prosecute any alcohol or drug abuse patient.[facility] Encounter Details Date Type Department Care Team (Late st Contact Info) Description 12/14/2020 Patient BMI [facility] [address] [address] [place] [address] Provider, Ccf Preop Information Social [...] ot on file 02/23/2020 Data from: https://www.neighborhoodatlas.medicine.[facility].edu/. Last address used for calculation [...] as of this encounter Care Teams Manager Android Relationship Specialty Start Date End Date Kami Olvera MD [address] [place] [phone] PCP - General Family Medicine 02/01/17 Jazzy Dunn RN [address] [place], [place] [phone] Specialty Radiology Director Hematology/Oncology 07/27/21 04/30/23 David House MD [address] [place] [address] Physician Hematology/Oncology 07/27/21 Odette Lopez PA-C [address] [place] [address] [place] [address] Physician Pharmaceutical Sales Specialist Hematology/Oncology 07/27/21 Rubens Singh MD [address] [place] [address] Physician Hematology/Oncology 10/08/21 Fran [facility] Palliative Medicine Provider 08/30/21 documented as of this encounter
--- OUTSIDE RECORDS SUMMARY | 2024-12-05 10:38 | XMS_ITS | Encounter Summary ---
Author Organization [facility] Address [address] [place] [address] Care Team Providers Care Cigarette Stamper Name Role Phone Kami Olvera MD Primary Care Provider +1 [phone] Jazzy Dunn RN Unavailable [phone] David House MD Unavailable [phone] Odette Lopez PA-C Unavailable [phone] Rubens Singh MD Unavailable [phone] Source Comments In the event this information is protected by the Federal Confidentiality of Alcohol and Drug AbusePatient Records regulations: The Federal rules restrict any use of the information to criminally investigate or prosecute any alcohol or drug abuse patient.[facility] Encounter Details Date Type Department Care Team (Late st Contact Info) Description 06/23/2021 Patient Msg Neurology [address] [place] [address] Kenia Lagos MD NO FORWARDING [...] N ot on file 02/23/2020 Data from: https://www.neighborhoodatlas.medicine.[facility].edu/. Last address used for calculation [...] documented as of this encounter Care Teams Cigarette Stamper Relationship Specialty Start Date End Date Kami Olvera MD [address] [place] [phone] PCP - General Family Medicine 02/01/17 Jazzy Dunn RN [address] [facility] [place] [address] Specialty Loom Operator Hematology/Oncology 07/27/21 04/30/23 David House MD [address] [place] [address] [place] [address] Physician Hematology/Oncology 07/27/21 Odette Lopez PA-C [address] [place] [address] [place] [address] Physician Research Epidemiologist Hematology/Oncology 07/27/21 Rubens Singh MD [address] [place], [place] [address] Physician Hematology/Oncology 10/08/21 Fran [facility] Palliative Medicine Provider 08/30/21 documented as of this encounter
--- OUTSIDE RECORDS SUMMARY | 2024-12-05 10:38 | XMS_ITS | Encounter Summary ---
Author Organization [facility] Address [address] [place] [address] Care Team Providers Care Bindery Machine Setter/Set Up Operator Name Role Phone Kami Olvera MD Primary Care Provider +1 [phone] Jazzy Dunn RN Unavailable [phone] David House MD Unavailable [phone] Odette Lopez PA-C Unavailable [phone] Rubens Singh MD Unavailable [phone] Source Comments In the event this information is protected by the Federal Confidentiality of Alcohol and Drug AbusePatient Records regulations: The Federal rules restrict any use of the information to criminally investigate or prosecute any alcohol or drug abuse patient.[facility] Encounter Details Date Type Department Care Team (Late st Contact Info) Description 05/24/2021 Get Medical Advice BMI [facility] [place] [address] [place], [place] [id number] [place] [address] [place], [place] [id number] Feeding Tube Social History Tobacco Use Types [...] N ot on file 02/23/2020 Data from: https://www.neighborhoodatlas.medicine.[facility].edu/. Last [...] documented as of this encounter Care Teams Bindery Machine Setter/Set Up Operator Relationship Specialty Start Date End Date Kami Olvera MD [address] [place] [address] PCP - General Family Medicine 02/01/17 Jazzy Dunn RN [address] [facility] [place] [address] Specialty Media Developer Hematology/Oncology 07/27/21 04/30/23 David House MD [address] [place] [address] Physician Hematology/Oncology 07/27/21 Odette Lopez PA-C [address] [place] [address] [place] [address] Physician Dye And Chemical Coordinator Hematology/Oncology 07/27/21 Rubens Singh MD [address] [place] [address] Physician Hematology/Oncology 10/08/[address] [facility] Palliative Medicine Provider 08/30/21 documented as of this encounter
--- OUTSIDE RECORDS SUMMARY | 2024-12-05 10:38 | XMS_ITS | Clinical Summary ---
Author Organization [facility] Address [facility] [address] [place] [address] Care Team Providers Care Core Composer Machine Tender Name Role Phone Unavailable Primary Care Provider [...]
--- OUTSIDE RECORDS SUMMARY | 2024-12-05 10:38 | XMS_ITS | Encounter Summary ---
Author Organization [facility] Address [address] [place] [address] Care Team Providers Care Cafeteria Operator Name Role Phone Kami Olvera MD Primary Care Provider [phone] [phone] Jazzy Dunn RN Unavailable [phone] David House MD Unavailable [phone] Odette Lopez PA-C Unavailable [phone] Rubens Singh MD Unavailable [phone] Source Comments In the event this information is protected by the Federal Confidentiality of Alcohol and Drug AbusePatient Records regulations: The Federal rules restrict any use of the information to criminally investigate or prosecute any alcohol or drug abuse patient.[facility] Encounter Details Date Type Department Care Team (Late st Contact Info) Description 09/17/2021 Patient Msg General Surgery [address] [facility] [place] [address] [place] [address] [place] [address] [address] [facility] [place] [address] [place] [address] Appointment Request Social History Tobacco Use Types [...] place to sleep or slept in a longterm (including now)? No 09/08/2021 Area Deprivation Index Answer Date Juan rded National Score (1-100), lower number is lower ri sk 66 08/05/2021 State Score (1-10), lower number is lower risk N ot on file 08/05/2021 Data from: https://www.neighborhoodatlas.medicine.[facility].edu/. Last address used for calculation [address] [...] on filedocumented in this encounter Care Teams Cafeteria Operator Relationship Specialty Start Date End Date Kami Olvera MD [address] [place] [address] PCP - General Family Medicine 02/01/17 Jazzy Dunn RN [address] [place] [address] [place] [address] Specialty Steel Plate Printer Hematology/Oncology 07/27/21 04/30/23 David House MD [address] [facility] [place] [address] Physician Hematology/Oncology 07/27/21 Odette Lopez, PAPonchoC [address] [facility] [place] [address] Physician Technical Writing Lead/Mgr Hematology/Oncology 07/27/21 Rubens Singh MD [address] [place] [address] [place] [address] Physician Hematology/Oncology 10/08/21 Fran [facility] Palliative Medicine Provider 08/30/21 documented as of this encounter
--- OUTSIDE RECORDS SUMMARY | 2024-12-05 10:38 | XMS_ITS | Encounter Summary ---
Author Organization [facility] Address [address] [place] [address] Care Team Providers Care Road Builder Name Role Phone Kami Olvera MD Primary Care Provider [phone] [phone] Jazzy Dunn RN Unavailable [phone] David House MD Unavailable [phone] Odette Lopez PA-C Unavailable [phone] Rubens Singh MD Unavailable [phone] Source Comments In the event this information is protected by the Federal Confidentiality of Alcohol and Drug AbusePatient Records regulations: The Federal rules restrict any use of the information to criminally investigate or prosecute any alcohol or drug abuse patient.[facility] Encounter Details Date Type Department Care Team (Late st Contact Info) Description 06/28/2021 Get Medical Advice General Surgery [address] [place], [place] [phone] Kapil Mccauley MD [address] [place] [address] Work Release Social History Tobacco [...] documented as of this encounter Care Teams Road Builder Relationship Specialty Start Date End Date Kami Olvera MD [address] [place] [address] PCP - General Family Medicine 02/01/17 Jazzy Dunn RN [address] [facility] [place] [address] Specialty Injection Molding Operator Hematology/Oncology 07/27/21 04/30/23 David House MD [address] [facility] [place] [address] Physician Hematology/Oncology 07/27/21 Odette Lopez, PAPonchoC [address] [place] [address] [place] [address] Physician Network Cabler Hematology/Oncology 07/27/21 Rubens Singh MD [address] [place] [address] [place] [address] Physician Hematology/Oncology 10/08/21 Fran [facility] Palliative Medicine Provider 08/30/21 documented as of this encounter
--- OUTSIDE RECORDS SUMMARY | 2024-12-05 10:38 | XMS_ITS | Encounter Summary ---
Author Organization [facility] Address [address] [place] [address] Care Team Providers Care Content Strategy Lead Name Role Phone Kami Olvera MD Primary Care Provider [phone] [phone] Jazzy Dunn RN Unavailable [phone] David House MD Unavailable [phone] Odette Lopez PA-C Unavailable [phone] Rubens Singh MD Unavailable [phone] Source Comments In the event this information is protected by the Federal Confidentiality of Alcohol and Drug AbusePatient Records regulations: The Federal rules restrict any use of the information to criminally investigate or prosecute any alcohol or drug abuse patient.[facility] Encounter Details Date Type Department Care Team (Late st Contact Info) Description 08/24/2021 Get Medical Advice General Surgery [address] [place] [address] Barrera Whittington PA-C [address] [place] [address] Feeding Tube Leakage Social History [...] N ot on file 08/05/2021 Data from: https://www.neighborhoodatlas.medicine.[facility].edu/. Last address used for calculation [...] documented as of this encounter Care Teams Content Strategy Lead Relationship Specialty Start Date End Date Kami Olvera MD [address] [place] [address] PCP - General Family Medicine 02/01/17 Jazzy Dunn RN [address] [facility] [place] [address] Specialty Plastic Sheets Supervisor Hematology/Oncology 07/27/21 04/30/23 David House MD [address] [place] [address] Physician Hematology/Oncology 07/27/21 Odette Lopez PA-C [address] [facility] [place] [address] Physician Mineral Technologist Hematology/Oncology 07/27/21 Rubens Singh MD [address] [place] [address] Physician Hematology/Oncology 10/08/21 Fran [facility] Palliative Medicine Provider 08/30/21 documented as of this encounter
--- OUTSIDE RECORDS SUMMARY | 2024-12-05 10:38 | XMS_ITS | Clinical Summary ---
Author Organization [facility] Address [address] [place] [address] Care Team Providers Care Evp Marketing Name Role Phone Unavailable Primary Care Provider [...] (ADULT) 2013 CERVICAL CANCER SCREENING DISCUSSION 2015 HPV VACCINE (1 - 3-dose SCDM series) 2021 COVID-19 VACCINE ( - 2023-2 5 season) 2024 INFLUENZA VACCINE (#1) 2024 PNEUMOCOCCAL VACCINE SERIES Aged Out No longer eligible based on patient's age to complete this topic Insurance MMO
--- OUTSIDE RECORDS SUMMARY | 2024-12-05 10:38 | XMS_ITS | Encounter Summary ---
Author Organization [facility] Address [facility] [place] [address] Care Team Providers Care Surface Supply Breathing Apparatus Name Role Phone Kami Olvera MD Primary Care Provider [phone] Jazzy Dunn RN Unavailable [phone] David House MD Unavailable [phone] Odette Lopez PA-C Unavailable [phone] Rubens Singh MD Unavailable [phone] Source Comments In the event this information is protected by the Federal Confidentiality of Alcohol and Drug AbusePatient Records regulations: The Federal rules restrict any use of the information to criminally investigate or prosecute any alcohol or drug abuse patient.[facility] Encounter Details Date Type Department Care Team (Late st Contact Info) Description 06/04/2021 Patient Msg Head and Neck [place] [address] [place] [address] Provider, Ccf Appointment with Dr. Cavazos (07/14/21) [...] ot on file 02/23/2020 Data from: https://www.neighborhoodatlas.medicine.[facility].edu/. Last address used for calculation Not [...] documented as of this encounter Care Teams Surface Supply Breathing Apparatus Relationship Specialty Start Date End Date Kami Olvera MD [address] [facility] [place] [address] PCP - General Family Medicine 02/01/17 Jazzy Dunn RN [address] [place] [address] Specialty Audiovisual Aids Technician Hematology/Oncology 07/27/21 04/30/23 David House MD [address] [facility] [place] [address] Physician Hematology/Oncology 07/27/21 Odette Lopez PA-C [address] [facility] [place] [address] Physician Oval Or Circular Glass Cutter Hematology/Oncology 07/27/21 Rubens Singh MD [address] [place] [address] Physician Hematology/Oncology 10/08/21 Fran [facility] Palliative Medicine Provider 08/30/21 documented as of this encounter
--- OUTSIDE RECORDS SUMMARY | 2024-12-05 10:38 | XMS_ITS | Encounter Summary ---
Author Organization [facility] Address [address] [place] [address] Care Team Providers Care Joinery Setter Out Name Role Phone Kapil Patel DO Primary Care Provider [phone] Kapil Patel DO Unavailable [phone] Encounter Details Date Type Department Care Team (Late st Contact Info) Description 12/04/2024 Abstract [facility] [address] [facility] [address] [place] [address] Kapil Patel, DO [address] [facility] [address] [place] [address] Social History Tobacco Use Types Packs/Day Years [...] week 11/12/2024 How often do you attend [facility] or restorationist services? More than 4 times per year 11/12/2024 Do you belong to any clubs o r organizations such as sabianism groups, unions, fraternal or athletic groups, or [...] Recorded Patient Health Questionnaire-2 Score 0 11/22/2024 [facility]ational [facility] Questionnaire Answer Date Recorded [...] the money to buy more. Never true 08/26/20 25 Within the past 12 months, t [...] any time in the past [address] [facility], were you homeless or living in a senior care (including now)? No 11/12/2024 Comments Unknown Sex [...] 2:00 PM EST Office Visit [facility] Neurology [address] [facility] [address] [facility] [address] [place] [address] Cole Phillip MD [address] [facility] [address] [place], [place] [address] 04/30/2025 2:15 PM EST Office Visit [facility] [address] [place] [address] Reji De Luna DO [address] [place] [address] documented as of this encounter Visit Diagnoses Not on filedocumented in this encounter Care Teams Joinery Setter Out Relationship Specialty Start Date End Date Kapil Patel DO [address] [place] [address] PCP - General Family Medicine 10/08/24 Kapil Patel DO [address] [place] [address] PCP - [place] [employer] 10/24/24 documented as of this encounter
--- OUTSIDE RECORDS SUMMARY | 2024-12-05 10:38 | XMS_ITS | Clinical Summary ---
Author Organization [facility] Address [address] [place] [address] Care Team Providers Care Car Rental Agency Manager Name Role Phone Devonte Kemp DO Primary Care Provider [phone] Allergies Active Allergy Reactions Criticality Noted Date [...] Hepatitis C Screening 01/02/2012 Pap Smear 2015 Cervical Cancer Screening 01/02/2024 HPV/Cotest 01/02/2024 COVID-19 Vaccine (2023-2 5 season) 2024 Influenza Vaccine (#1) 2024 Pneumococcal Vaccine: Ped or At-Risk Aged Out No longer eligible b ased on patient's age to complete this topic Insurance [employer] PPO Advance Directives For more information, please contact: [phone] * Full Code - Unverified (Latest Code Status on File) Date Activated Date Inactivated Comments 10/31/2015 5:36 PM 11/12/2015 7:47 PM Care Teams Car Rental Agency Manager Relationship Specialty Start Date End Date Devonte Kemp DO PCP - General Endocrinology/Metabolism 10/19/15
--- OUTSIDE RECORDS SUMMARY | 2024-12-05 10:38 | XMS_ITS | Encounter Summary ---
Author Organization [facility] Address [address] [place] [address] Care Team Providers Care Java J2Ee Technical Lead Name Role Phone Kami Olvera MD Primary Care Provider [phone] Jazzy Dunn RN Unavailable [phone] David House MD Unavailable [phone] Odette Lopez PA-C Unavailable [phone] Rubens Singh MD Unavailable [phone] Source Comments In the event this information is protected by the Federal Confidentiality of Alcohol and Drug AbusePatient Records regulations: The Federal rules restrict any use of the information to criminally investigate or prosecute any alcohol or drug abuse patient.[facility] Encounter Details Date Type Department Care Team (Late st Contact Info) Description 06/08/2021 Patient Msg General Surgery [address] [place] [address] Provider, Ccf Upcoming appointment Social [...] N ot on file 02/23/2020 Data from: https://www.neighborhoodatlas.medicine.[facility].edu/. Last address used for calculation Not [...] documented as of this encounter Care Teams Java J2Ee Technical Lead Relationship Specialty Start Date End Date Kami Olvera MD [address] [place] [phone] PCP - General Family Medicine 02/01/17 Jazzy Dunn RN [address] [facility] [place] [address] Specialty Tablet Machine Operator Hematology/Oncology 07/27/21 04/30/23 David House MD [address] [place] [address] Physician Hematology/Oncology 07/27/21 Odette Lopez PA-C [address] [place] [address] Physician Wire Walker Hematology/Oncology 07/27/21 Rubens Singh MD [address] [place] [address] Physician Hematology/Oncology 10/08/21 Fran [facility] Palliative Medicine Provider 08/30/21 documented as of this encounter
--- OUTSIDE RECORDS SUMMARY | 2024-12-05 10:38 | XMS_ITS | Encounter Summary ---
Author Organization [facility] Address [address] [place] [address] Care Team Providers Care Utility Bag Assembler Name Role Phone Kapil Patel DO Primary Care Provider [phone] Kapil Patel DO Unavailable [phone] Encounter Details Date Type Department Care Team (Late st Contact Info) Description 12/04/2024 Patient Outreach [facility] [address] [facility] [place] [address] Monday, FELISHA Mullen [address] [facility] [address] [place] [address] Social History Tobacco Use Types Packs/Day Years [...] week 11/12/2024 How often do you attend [facility] or caodaism services? More than 4 times per year 11/12/2024 Do you belong to any clubs o r organizations such as amish groups, unions, fra[employer]ata Pharm[employer] or athletic groups, or school groups? No [...] Score 0 11/22/2024 [facility]ational [facility] Questionnaire Answer Date Recorded [...] any time in the past 12 m [facility], were you homeless or living in a mcfp (including now)? No 11/12/2024 Comments Unknown Sex and Gender Information Value Date Recorded Sex Assigned at Not on file Legal Sex Female 6:39 PM EDT Gender Identity Female 06/01/2022 6:39 PM EDT Sexual Orientation Not on file documented as of this encounter Progress Notes * Paz MondayFELISHA - 12/04/2024 2:45 PM EDT Flowsheet Row Patient Outreach from 12/04/2024 in [facility] with Paz Monday, BRIDGE MAINTAINER Hospital Information ED, Hospital or Detention Facility Discharge? ED Patient has been contacted within 2 days of being seen in the ED Yes Diagnosis abdominal pain, diarrhea Discharge Date 12/03/24 Discharged To: Home Setting Discharge [facility] Engagement Call Start Time 1453 Admission Date 12/03/24 Medications Discharge medications reviewed and reconciled from hospital? Yes Is the patient having any side effects they believe may be caused by any medication additions or changes? No Does the patient have all medications ordered at discharge? Yes Is the patient taking all medications as directed (includes completed medication regime)? Yes Appointments Does the patient have a primary care provider? Yes Does the patient have any upcoming specialty appointments? Yes Self Management Does patient have home health? no Patient Teaching Does the patient have access to their discharge instructions? Yes What is the patient's perception of their health status since discharge? Same Is the patient/caregiver able to teach back the hierarchy of who to call/visit for symptoms/problems? PCP, Specialist, Home Health nurse, Urgent Care, ED, 911 Yes Wrap Up Wrap Up Additional Comments Workup in the ER has been reviewed and noted. Workup here is essentially benign including laboratory studiesl. I did review the CAT scan from about 2 weeks ago that was also negative. Patient has been referred to GI she does have upcoming appointment she has has numerous appointments with her oncology team and her primary care physician tomorrow. We did talk about differential diagnosis of epigastric abdominal pain in the setting of completely normal imaging and labs. Certaily gastritis peptic ulcer disease would be on that list therefore patient was treated here with IV Zofran Protonix and give GI cocktail. Patient continues to have pain therefore she was treated with narcotic pain medication for pain relief as she is on chronic narcotics for her Hodgkin's lymphoma treatment at home. Ultimately she is discharged home to follow-up and return to ER if symptoms should change or worsen. Call End Time 1501 Pt shares she is not doing any better, she hasn't eaten in 3 days. We discuss GI referral and I askif she has a preference? There is a territory sales professional in [place] too, as well as [place] where the referral was sent. She does not care, she just wants to find out what is going on. She continues with the diarrhea and nothing helps that she has tried up to this point. I let her know I will see ifa referral can be sent to [facility] as well, then whichever one can get her in sooner will call and get her an appt. She is agreeable to this. She was walking in to her oncology appt as we were finishing up this phone call, she does not want to schedule an ER follow-up at this time. documented in this encounter Plan of Treatment Upcoming Encounters Date Type Department Care Team (Late st Contact Info) Description 04/29/2025 2:00 PM EST Office Visit [facility] [place] [facility] [address] [place] [address] Cole Phillip MD [address] [place] [address] 04/30/2025 2:15 PM EST Office Visit [facility] [address] [place] [address] Reji De Luna, DO [address] [place] [address] documented as of this encounter Visit Diagnoses Diagnosis Generalized pain Anxiety Anxiety state, unspecified documented in this encounter Care Teams Utility Bag Assembler Relationship Specialty Start Date End Date Kapil Patel DO [address] [facility] [address] [place] [address] PCP - General Family Medicine 10/08/24 Kapil Patel DO [address] [facility] [address] [place] [address] PCP - [place] [employer] 10/24/24 documented as of this encounter
--- OUTSIDE RECORDS SUMMARY | 2024-12-05 10:38 | XMS_ITS | Encounter Summary ---
Author Organization [facility] Address [address] [place] [address] Care Team Providers Care Printing Sign Machine Operator Name Role Phone Kami Olvera MD Primary Care Provider [phone] Jazzy Dunn RN Unavailable [phone] David House MD Unavailable [phone] Odette Lopez PA-C Unavailable [phone] Rubens Singh MD Unavailable [phone] Source Comments In the event this information is protected by the Federal Confidentiality of Alcohol and Drug AbusePatient Records regulations: The Federal rules restrict any use of the information to criminally investigate or prosecute any alcohol or drug abuse patient.[facility] Encounter Details Date Type Department Care Team (Late st Contact Info) Description 05/20/2021 Patient Msg Gastroenterology [address] [place] [id number] Provider, Ccf Appointment on 05/25/21 has been [...] on file 02/23/2020 Data from: https://www.neighborhoodatlas.medicine.[facility].edu/. Last address used for calculation Not on [...] documented as of this encounter Care Teams Printing Sign Machine Operator Relationship Specialty Start Date End Date Kami Olvera MD [address] [place] [address] PCP - General Family Medicine 02/01/17 Jazzy Dunn RN [address] [facility] [place] [address] Specialty Trouble Dispatcher Hematology/Oncology 07/27/21 04/30/23 David House MD [address] [facility] [address] Physician Hematology/Oncology 07/27/21 Odette Lopez, PA-C [address] [facility] [place] [address] Physician Operations Superintendent Hematology/Oncology 07/27/21 Rubens Singh MD [address] [place] [address] Physician Hematology/Oncology 10/08/[address] [facility] Palliative Medicine Provider 08/30/21 documented as of this encounter
--- OUTSIDE RECORDS SUMMARY | 2024-12-05 10:38 | XMS_ITS | Encounter Summary ---
Author Organization [facility] Address [address] [place] [address] Care Team Providers Care Solar Installer Name Role Phone Kami Olvera MD Primary Care Provider [phone] Jazzy Dunn RN Unavailable [phone] David House MD Unavailable [phone] Odette Lopez PA-C Unavailable [phone] Rubens Singh MD Unavailable [phone] Source Comments In the event this information is protected by the Federal Confidentiality of Alcohol and Drug AbusePatient Records regulations: The Federal rules restrict any use of the information to criminally investigate or prosecute any alcohol or drug abuse patient.[facility] Encounter Details Date Type Department Care Team (Late st Contact Info) Description 10/27/2020 Patient Msg Pre Anesthesia [address] [place], [place] [id number] Deonna Shepard PA-C [address] [place] [address] Medications day of procedure Social [...] N ot on file 02/23/2020 Data from: https://www.neighborhoodatlas.medicine.[facility].edu/. Last address used for calculation Not [...] documented as of this encounter Care Teams Solar Installer Relationship Specialty Start Date End Date Kami Olvera MD [address] [place] [address] PCP - General Family Medicine 02/01/17 Jazzy Dunn, RN [address] [place] [address] [place] [address] Specialty Jewelry Model Maker Hematology/Oncology 07/27/21 04/30/23 David House MD [address] [place] [address] [place] [address] Physician Hematology/Oncology 07/27/21 Odette Lopez, PA-C [address] [place] [address] [place] [address] Physician Abe Teacher Hematology/Oncology 07/27/21 Rubens Singh MD [address] [place] [address] [place] [address] Physician Hematology/Oncology 10/08/21 Fran [facility] Palliative Medicine Provider 08/30/21 documented as of this encounter
--- OUTSIDE RECORDS SUMMARY | 2024-12-05 10:38 | XMS_ITS | Encounter Summary ---
Author Organization [facility] Address [address] [place] [address] Care Team Providers Care Generator Operator Name Role Phone Kapil Patel DO Primary Care Provider [phone] Kapil Patel DO Unavailable [phone] Reason for Visit * Reason Onset Date Comments Med Refill 12/04/2024 Encounter Details Date Type Department Care Team (Late st Contact Info) Description 12/04/2024 Refill [facility] [facility] [address] [place] [id number] Kami Fuentes MA Insomnia, psychophysiological Social History Tobacco Use Types Packs/Day Years [...] week 11/12/2024 How often do you attend [facility] or baptist services? More than 4 times per year 11/12/2024 Do you belong to any clubs o r organizations such as sabianist groups, unions, fraternal or athletic groups, or [...] Recorded Patient Health Questionnaire-2 Score 0 11/22/2024 [facility] Questionnaire Answer Date [...] any time in the past 12 m [facility], were you homeless or living in a senior living (including now)? No 11/12/2024 Comments Unknown Sex [...] 04/29/2025 2:00 PM EST Office Visit [facility] [place] [facility]rology [address] [place] [address] Cole Phillip MD [address] [place] [facility] [address] [place], [place] [address] 04/30/2025 2:15 PM EST Office Visit [facility] [place] [facility] [address] [place] [address] Reji De Luna DO [address] [place] [address] documented as of this encounter Visit Diagnoses Diagnosis Insomnia, psychophysiological documented in this encounter Care Teams Generator Operator Relationship Specialty Start Date End Date Kapil Patel DO [address] [place] [address] PCP - General Family Medicine 10/08/24 Kapil Patel DO [address] [facility] [address] [place] [address] PCP - [place] [employer] 10/24/24 documented as of this encounter
--- OUTSIDE RECORDS SUMMARY | 2024-12-05 10:38 | XMS_ITS | Encounter Summary ---
Author Organization [facility] Address [address] [place] [address] Care Team Providers Care J2Ee Consultant Name Role Phone Kapil Patel DO Primary Care Provider [phone] Kapil Patel DO Unavailable [phone] Reason for Visit * Reason Onset Date Comments Med Refill 12/05/2024 Encounter Details Date Type Department Care Team (Late st Contact Info) Description 12/05/2024 Refill [facility] [place] [facility] [address] [place] [address] Donna Oconnor NP Insomnia, psychophysiological Social History Tobacco Use Types [...] week 11/12/2024 How often do you attend [facility] or moravian services? More than 4 times per year 11/12/2024 Do you belong to any clubs o r organizations such as episcopalian groups, unions, fraternal or athletic groups, or [...] Recorded Patient Health Questionnaire-2 Score 0 11/22/2024 [facility] Questionnaire Answer Date [...] any time in the past 12 m [facility], were you homeless or living in a [facility] (including now)? No 11/12/2024 Comments Unknown Sex [...] 2:00 PM EST Office Visit [facility] Neurology [address] [facility] [address] [facility] [address] [place] [address] Cole Phillip MD 24[address] [facility] [address] [place] [address] 04/30/2025 2:15 PM EST Office Visit [facility] Ot[facility] [address] [place] [address] Reji De Luna DO [address] [place] [address] documented as of this encounter Visit Diagnoses Diagnosis Insomnia, psychophysiological documented in this encounter Care Teams J2Ee Consultant Relationship Specialty Start Date End Date Kapil Patel DO [address] [place] [address] PCP - General Family Medicine 10/08/24 Kapil Patel DO [address] [place] [address] PCP - [place] [employer] 10/24/24 documented as of this encounter
--- OUTSIDE RECORDS SUMMARY | 2024-12-05 10:38 | XMS_ITS | Encounter Summary ---
Author Organization [facility] Address [address] [place] [address] Care Team Providers Care Mold Bunch Trimmer Name Role Phone Kami Olvera MD Primary Care Provider [phone] Jazzy Dunn RN Unavailable [phone] David House MD Unavailable [phone] Odette Lopez PA-C Unavailable [phone] Rubens Singh MD Unavailable [phone] Source Comments In the event this information is protected by the Federal Confidentiality of Alcohol and Drug AbusePatient Records regulations: The Federal rules restrict any use of the information to criminally investigate or prosecute any alcohol or drug abuse patient.[facility] Encounter Details Date Type Department Care Team (Late st Contact Info) Description 09/25/2020 Patient Msg General Surgery [address] [place] [address] Provider, Ccf FMLA Social History [...] on file 02/23/2020 Data from: https://www.neighborhoodatlas.medicine.[facility].edu/. Last address used for calculation [...] documented as of this encounter Care Teams Mold Bunch Trimmer Relationship Specialty Start Date End Date Kami Olvera MD [address] [place] [address] PCP - General Family Medicine 02/01/17 Jazzy Dunn RN [address] [place] [address] [place] [address] Specialty Automotive Parts Coordinator Hematology/Oncology 07/27/21 04/30/23 David House MD [address] [place] [address] [place] [address] Physician Hematology/Oncology 07/27/21 Odette Lopze PA-C [address] [place] [address] [place] [address] Physician Ferry Pilot Hematology/Oncology 07/27/21 Rubens Singh MD [address] [place] [address] [place] [address] Physician Hematology/Oncology 10/08/21 Fran [facility] Palliative Medicine Provider 08/30/21 documented as of this encounter
--- OUTSIDE RECORDS SUMMARY | 2024-12-05 10:39 | XMS_ITS | Encounter Summary ---
Author Organization [facility] Address [address] [place] [address] Care Team Providers Care Bark Grinder Name Role Phone JustoDevonte page Primary Care Provider Kami Olvera MD Primary Care Provider [phone] Jazzy Dunn RN Unavailable [phone] David House MD Unavailable [phone] Odette Lopez PA-C Unavailable [phone] Rubens Singh MD Unavailable [phone] Source Comments In the event this information is protected by the Federal Confidentiality of Alcohol and Drug AbusePatient Records regulations: The Federal rules restrict any use of the information to criminally investigate or prosecute any alcohol or drug abuse patient.[facility] Encounter Details Date Type Department Care Team (Late st Contact Info) Description 03/05/2015 Patient Msg Neurology [address] [place] [id number] Lidia Jones PA-C [address] [place] [address] RE: Appointment Cancellation Request Social History [...] documented as of this encounter Care Teams Bark Grinder Relationship Specialty Start Date End Date Devonte Kemp DO PCP - General Family Medicine 05/03/13 01/31/17 Kami Olvera MD [address] [place] [address] PCP - General Family Medicine 02/01/17 Jazzy Dunn RN [address] [facility] [place] [address] Specialty Senior Linux Administrator Hematology/Oncology 07/27/21 04/30/23 David House MD [address] [place] [address] [place] [address] Physician Hematology/Oncology 07/27/21 Odette Lopez PAPonchoC [address] [place] [address] [place] [address] Physician Scale Model Maker Hematology/Oncology 07/27/21 Rubens Singh MD [address] [place] [address] [place] [address] Physician Hematology/Oncology 10/08/21 KrysMARVIN [facility] Palliative Medicine Provider 08/30/21 documented as of this encounter
--- OUTSIDE RECORDS SUMMARY | 2024-12-05 10:39 | XMS_ITS | Encounter Summary ---
Author Organization [facility] Address [address] [place] [address] Care Team Providers Care Psychologist Chief Name Role Phone JustoDevonte page Carlos Alberto RIVAS Primary Care Provider Kami Olvera MD Primary Care Provider [phone] Jazzy Dunn RN Unavailable [phone] David House MD Unavailable [phone] Odette Lopez PA-C Unavailable [phone] Rubens Singh MD Unavailable [phone] Source Comments In the event this information is protected by the Federal Confidentiality of Alcohol and Drug AbusePatient Records regulations: The Federal rules restrict any use of the information to criminally investigate or prosecute any alcohol or drug abuse patient.[facility] Encounter Details Date Type Department Care Team (Late st Contact Info) Description 12/25/2014 Patient Msg Medical Records [address] [place] [address] Provider, Ccf RE: Appointment Cancellation Request Social [...] documented as of this encounter Care Teams Psychologist Chief Relationship Specialty Start Date End Date Devonte Kemp DO PCP - General Family Medicine 05/03/13 01/31/17 Kami Olvera MD [address] [place] [address] [facility] [place] [address] PCP - General Family Medicine 02/01/17 Jazzy Dunn, RN [address] [facility] [facility] [place] [address] Specialty Research Compliance Specialist Hematology/Oncology 07/27/21 04/30/23 David House MD [address] [facility] [place] [address] Physician Hematology/Oncology 07/27/21 Odette Lopez, PA-C [address] [place] [address] Physician Resistance Machine Welder Setter Hematology/Oncology 07/27/21 Rubens Singh MD [address] [place] [address] Physician Hematology/Oncology 10/08/21 Fran [facility] Palliative Medicine Provider 08/30/21 documented as of this encounter
--- OUTSIDE RECORDS SUMMARY | 2024-12-05 10:39 | XMS_ITS | Encounter Summary ---
Author Organization [facility] Address [address] [facility] [place] [address] Care Team Providers Care Stamp Maker Name Role Phone Kami Olvera MD Primary Care Provider [phone] Kapil Patel DO Primary Care Provider [phone] Kapil Patel DO Unavailable [phone] Monday, Paz MAMMAL CONTROL AGENT Unavailable [phone] Encounter Details Date Type Department Care Team (Late st Contact Info) Description 04/28/2023 Clinisync Result Encounter [facility] External Department Unsolicited Provider, Generic External Data Social History Tobacco Use Types Packs/Day Years Used Date Smoking Tobacco: Never Alcohol Use Standard Drinks/Week Comments Not Currently 0 (1 standard drink = 0.6 oz pur e alcohol) Comments Unknown Sex and Gender Information Value Date Recorded Sex Assigned at Not on file Legal Sex Female 6:39 PM EDT Gender Identity Female 06/01/2022 6:39 PM EDT Sexual Orientation Not on file documented as of this encounter Plan of Treatment Upcoming Encounters Date Type Department Care Team (Late st Contact Info) Description 04/29/2025 2:00 PM EST Office Visit [facility] [place] [facility] [address] [facility] [address] [place] [address] Cole Phillip MD [address] [place] [facility] [address] [place] [address] 04/30/2025 2:15 PM EST Office Visit [facility] [address] [place] [address] Reji De Luna W, DO [address] [place] [address] documented as of this encounter Procedures Procedure Name Priority Date/Time Associated Diagnosis Comments CT CHEST W IV CONTRAST 04/28/2023 1:15 PM EST documented in this encounter Results * CT chest w IV contrast (04/28/2023 1:15 PM EST) Anatomical Region Laterality Modality Body, Chest Computed Tomogra phy 04/28/2023 1:15 PM EST Narrative 04/30/2023 3:45 PM EST * * *Final Report* * * DATE OF EXAM: Apr 28 2023 1:15PM [facility] 0539 - CT CHEST W IVCON / PROCEDURE REASON: Nodular sclerosing Hodgkin's lymphoma, unspecified body region (HCC) * * * * Physician Interpretation * * * * RESULT: EXAMINATION: CHEST CT WITH CONTRAST CLINICAL HISTORY: Nodular sclerosing Hodgkin's lymphoma. Technique: Spiral CT acquisition of the chest from the thoracic inlet to the upper abdomen following IV contrast. MQ: CTCW_6 Contrast: 130 mL Omnipaque [address] Radiation dose: Integrated Dose-length product (DLP) for this visit = 612 mGy*cm CT Dose Reduction Employed: Automated exposure control (AEC) Comparison: Chest CT with contrast from 10/28/2022 and 06/10/2022 RESULT: Limitations: None. Lines, tubes, and devices: None. Lung parenchyma and airways: No lung consolidation. 3 mm nodular groundglass opacity in the posterior left lower lobe on slice 121 of series 4. This is stable when compared to prior exams. Pleural space: No pleural effusion. No pleural thickening. Lower neck, lymph nodes, and mediastinum: No suspicious axillary, mediastinal, or hilar lymphadenopathy. 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 This is also stable in appearance compared to a more remote comparison exam from 06/10/2022 Heart, pericardium, and thoracic vessels: No pericardial effusion. No coronary artery calcification. Bones and soft tissues: No destructive bone lesion. Chest wall is unremarkable. Upper abdomen: A CT of the abdomen and pelvis was performed and will be reported separately. Spotlight Operator (topogram) images: No additional findings. IMPRESSION: 1. 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 This is also stable in appearance compared to a more remote comparison exam from 06/10/2022. No suspicious lymphadenopathy is detected in the chest. 2. Stable 3 mm groundglass opacity in the posterior left lower lobe which is also stable dating back to 06/10/2022. This is likely benign. Transcribe Date/Time: Apr 30 2023 3:27P Dictated by: REX KHAN MD This examination was interpreted and the report reviewed and electronically signed by: REX KHAN MD on Apr 30 2023 3:43PM EST Thank you for allowing us to participate in the care of your patient. Should there be any questions regarding this interpretation, please call [phone]. If you are unable to reach us at the number above, please feel free to contact [facility] at [phone]. [id number]^[email or web address]^ACN Procedure Note Radiology, Radiologist, - 04/30/2023 * * *Final Report* * * DATE OF EXAM: Apr 28 2023 1:15PM [facility] 0539 - CT CHEST W IVCON / PROCEDURE REASON: Nodular sclerosing Hodgkin's lymphoma, unspecified body region (HCC) * * * * Physician Interpretation * * * * RESULT: EXAMINATION: CHEST CT WITH CONTRAST CLINICAL HISTORY: Nodular sclerosing Hodgkin's lymphoma. Technique: Spiral CT acquisition of the chest from the thoracic inlet to the upper abdomen following IV contrast. MQ: CTCW_6 Contrast: 130 mL Omnipaque [address] Radiation dose: Integrated Dose-length product (DLP) for this visit = 612 mGy*cm CT Dose Reduction Employed: Automated exposure control (AEC) Comparison: Chest CT with contrast from 10/28/2022 and 06/10/2022 RESULT: Limitations: None. Lines, tubes, and devices: None. Lung parenchyma and airways: No lung consolidation. 3 mm nodular groundglass opacity in the posterior left lower lobe on slice 121 of series 4. This is stable when compared to prior exams. Pleural space: No pleural effusion. No pleural thickening. Lower neck, lymph nodes, and mediastinum: No suspicious axillary, mediastinal, or hilar lymphadenopathy. 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 This is also stable in appearance compared to a more remote comparison exam from 06/10/2022 Heart, pericardium, and thoracic vessels: No pericardial effusion. No coronary artery calcification. Bones and soft tissues: No destructive bone lesion. Chest wall is unremarkable. Upper abdomen: A CT of the abdomen and pelvis was performed and will be reported separately. Spotlight Operator (topogram) images: No additional findings. IMPRESSION: 1. 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 This is also stable in appearance compared to a more remote comparison exam from 06/10/2022. No suspicious lymphadenopathy is detected in the chest. 2. Stable 3 mm groundglass opacity in the posterior left lower lobe which is also stable dating back to 06/10/2022. This is likely benign. Transcribe Date/Time: Apr 30 2023 3:27P Dictated by: REX KHAN MD This examination was interpreted and the report reviewed and electronically signed by: REX KHAN MD on Apr 30 2023 3:43PM EST Thank you for allowing us to participate in the care of your patient. Should there be any questions regarding this interpretation, please call [phone]. If you are unable to reach us at the number above, please feel free to contact [facility] at [phone]. [id number]^[email or web address]^ACN us Generic External Data Provider IMG CT PROCEDURES Final Result documented in this encounter Visit Diagnoses Not on filedocumented in this encounter Care Teams Stamp Maker Relationship Specialty Start Date End Date Kami Olvera MD [address] [place] [address] PCP - General Family Medicine 07/26/22 10/07/24 Kapil Patel, [address] [place] [address] PCP - General Family Medicine 10/08/24 Kapil Patel DO [address] [place] [address] PCP - [facility] 10/24/24Monday, FELISHA [place] [address] [facility] [address] [place] [address] Licensed Practical Nurse Family Medicine 11/25/2411/28 documented as of this encounter
--- OUTSIDE RECORDS SUMMARY | 2024-12-05 10:39 | XMS_ITS | Encounter Summary ---
Author Organization [facility] Address [address] [place] [address] Care Team Providers Care Arcade Attendant Name Role Phone JustoDevonte page Primary Care Provider Kami Olvera MD Primary Care Provider [phone] Jazzy Dunn RN Unavailable [phone] David House MD Unavailable [phone] Odette Lopez PA-C Unavailable [phone] Rubens Singh MD Unavailable [phone] Source Comments In the event this information is protected by the Federal Confidentiality of Alcohol and Drug AbusePatient Records regulations: The Federal rules restrict any use of the information to criminally investigate or prosecute any alcohol or drug abuse patient.[facility] Encounter Details Date Type Department Care Team (Late st Contact Info) Description 10/19/2014 Get Medical Advice Neurology [address] [place] [id number] Lidia Jones PA-C [address] [place] [address] RE: Upcoming Appointment Question Social [...] documented as of this encounter Care Teams Arcade Attendant Relationship Specialty Start Date End Date Devonte Kemp DO PCP - General Family Medicine 05/03/13 01/31/17 Kami Olvera MD [address] [place] [address] PCP - General Family Medicine 02/01/17 Jazzy Dunn RN [address] [facility] [place] [address] Specialty Foundry Superintendant Hematology/Oncology 07/27/21 04/30/23 David House MD [address] [place], [place] [address]RY [facility] [place] [address] Physician Hematology/Oncology 07/27/21 Odette Lopez, PA-C [address] [facility] [place] [address] Physician Calculator Operator Hematology/Oncology 07/27/21 Rubens Singh MD [address] [facility] [place] [address] Physician Hematology/Oncology 10/08/[address] [facility] Palliative Medicine Provider 08/30/21 documented as of this encounter
--- OUTSIDE RECORDS SUMMARY | 2024-12-05 10:39 | XMS_ITS | Encounter Summary ---
Author Organization [facility] Address [address] [place] [address] Care Team Providers Care Waterfront Director Name Role Phone Kami Olvera MD Primary Care Provider [phone] Jazzy Dunn RN Unavailable [phone] David House MD Unavailable [phone] Odette Lopez PA-C Unavailable [phone] Rubens Singh MD Unavailable [phone] Source Comments In the event this information is protected by the Federal Confidentiality of Alcohol and Drug AbusePatient Records regulations: The Federal rules restrict any use of the information to criminally investigate or prosecute any alcohol or drug abuse patient.[facility] Encounter Details Date Type Department Care Team (Late st Contact Info) Description 01/12/2021 Patient Msg Gastroenterology [address] [place] [address] [place] [address] [place] [address] RE: Appointment Request Social History [...] N ot on file 02/23/2020 Data from: https://www.neighborhoodatlas.medicine.[facility].edu/. Last address used for calculation Not [...] documented as of this encounter Care Teams Waterfront Director Relationship Specialty Start Date End Date Kami Olvera MD [address] [place] [address] PCP - General Family Medicine 02/01/17 Jazzy Dunn RN [address] [place] [address] Specialty Quality Assurance Lead Hematology/Oncology 07/27/21 04/30/23 David House MD [address] [place] [address] [place] [address] Physician Hematology/Oncology 07/27/21 Odette Lopez PA-C [address] [place] [address] [place] [address] Physician Membership Assistant Hematology/Oncology 07/27/21 Rubens Singh MD [address] [place] [address] Physician Hematology/Oncology 10/08/[address] [facility] Palliative Medicine Provider 08/30/21 documented as of this encounter
--- OUTSIDE RECORDS SUMMARY | 2024-12-05 10:39 | XMS_ITS | Encounter Summary ---
Author Organization [facility] Address [address] [place] [address] Care Team Providers Care Power Plant Operator Name Role Phone Kami Olvera MD Primary Care Provider [phone] Jazzy Dunn RN Unavailable [phone] David House MD Unavailable [phone] Odette Lopez PA-C Unavailable [phone] Rubens Singh MD Unavailable [phone] Source Comments In the event this information is protected by the Federal Confidentiality of Alcohol and Drug AbusePatient Records regulations: The Federal rules restrict any use of the information to criminally investigate or prosecute any alcohol or drug abuse patient.[facility] Encounter Details Date Type Department Care Team (Late st Contact Info) Description 07/07/2021 Patient Msg General Surgery [address] [place] [address] Provider, Ccf 07/14/21 EGG Instructions [...] N ot on file 02/23/2020 Data from: https://www.neighborhoodatlas.medicine.[facility].edu/. Last address used for calculation Not on [...] documented as of this encounter Care Teams Power Plant Operator Relationship Specialty Start Date End Date Kami Olvera MD [address] [facility] [address] PCP - General Family Medicine 02/01/17 Jazzy Dunn RN [address] [facility] [place] [address] Specialty Reading Assistant Hematology/Oncology 07/27/21 04/30/23 David House MD [address] [place] [address] [place] [address] Physician Hematology/Oncology 07/27/21 Odette Lopez PA-C [address] [place] [address] [place] [address] Physician Executive Producer Hematology/Oncology 07/27/21 Rubens Singh MD [address] [place], [place] [address] Physician Hematology/Oncology 10/08/21 Fran [facility] Palliative Medicine Provider 08/30/21 documented as of this encounter
--- OUTSIDE RECORDS SUMMARY | 2024-12-05 10:39 | XMS_ITS | Encounter Summary ---
Author Organization [facility] Address [address] [place] [address] Care Team Providers Care Electron Microprobe Operator Name Role Phone Kami Olvera MD Primary Care Provider [phone] Kapil Patel DO Primary Care Provider + [phone] Kapil Patel DO Unavailable [phone] Monday, Paz LAND COMMISSIONER Unavailable [phone] Encounter Details Date Type Department Care Team (Late st Contact Info) Description 10/28/2022 Clinisync Result Encounter [facility] External Department Unsolicited [...] 2:00 PM EST Office Visit [facility] Neurology [address] [facility] [address] [place] [address] Cole Phillip MD [address] [facility] [address] [place] [address] 04/30/2025 2:15 PM EST Office Visit [facility] [address] [place] [address] Reji De Luna, DO [address] [place] [address] documented as of this encounter Procedures Procedure Name Priority Date/Time Associated Diagnosis Comments CT ABD/PEL W IVCON 10/28/2022 9: 03 AM EDT documented in this encounter Results * CT ABD/PEL W IVCON (10/28/2022 9:03 AM EDT) Anatomical Region Laterality Modality Other 10/28/2022 9:03 AM EDT Narrative 10/28/2022 11:53 AM EDT * * *Final Report* * * DATE OF EXAM: Oct 28 2022 9:03AM 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 MQ: CTAP_3 Contrast: IV: 140 ml of Omnipaque 300 : ml of CT Radiation dose: Integrated Dose-length product (DLP) for this visit = 1255 mGy*cm. CT Dose Reduction Employed: Automated exposure control (AEC) COMPARISON: 06/10/22 RESULT: Liver: No mass. Punctate left hepatic cyst (3:30), stable. Biliary: No bile duct dilation. Gallbladder is absent. Spleen: No mass. No splenomegaly. Nonenlarged measuring 8 cm in length. Pancreas: No mass or duct dilation. Adrenals: No mass. Kidneys: 1 cm left renal cyst, stable. No suspicious enhancing renal mass or hydronephrosis. GI tract: No dilation or wall thickening. Postoperative changes of the small bowel are noted. Lymph nodes: No abdominal or pelvic lymphadenopathy. Mesentery/Peritoneum: No ascites or mass. Retroperitoneum: No mass. Vasculature: - Abdominal aorta and iliac arteries: No aneurysm. - Celiac and SMA: Patent without stenosis. - Portal venous system (SMV, splenic vein, portal vein and branches): Patent. - Hepatic veins: Patent. Pelvis: No mass, ascites or fluid collection. Urinary bladder is decompressed. Bones/Soft Tissues: No osseous abnormalities. Lower thorax: A chest CT performed will be reported separately. Helper Shear Operator (topogram) images: No additional findings. IMPRESSION: 1. No evidence of splenomegaly or intra-abdominal/pelvic lymphadenopathy. 2. No change since 06/10/22. Transcribe Date/Time: Oct 28 2022 11:28A Dictated by: ANUJA MOBLEY MD This examination was interpreted and the report reviewed and electronically signed by: ANUJA MOBLEY MD on Oct 28 2022 11:51AM EST Thank you for allowing us to participate in the care of your patient. Should there be any questions regarding this interpretation, please call [phone]. If you are unable to reach us at the number above, please feel free to contact [facility] at [phone]. [id number]^[email or web address]^ACN Procedure Note Radiology, Radiologist, - 10/28/2022 * * *Final Report* * * DATE OF EXAM: Oct 28 2022 9:03AM 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 MQ: CTAP_3 Contrast: IV: 140 ml of Omnipaque 300 : ml of CT Radiation dose: Integrated Dose-length product (DLP) for this visit = 1255 mGy*cm. CT Dose Reduction Employed: Automated exposure control (AEC) COMPARISON: 06/10/22 RESULT: Liver: No mass. Punctate left hepatic cyst (3:30), stable. Biliary: No bile duct dilation. Gallbladder is absent. Spleen: No mass. No splenomegaly. Nonenlarged measuring 8 cm in length. Pancreas: No mass or duct dilation. Adrenals: No mass. Kidneys: 1 cm left renal cyst, stable. No suspicious enhancing renal mass or hydronephrosis. GI tract: No dilation or wall thickening. Postoperative changes of the small bowel are noted. Lymph nodes: No abdominal or pelvic lymphadenopathy. Mesentery/Peritoneum: No ascites or mass. Retroperitoneum: No mass. Vasculature: - Abdominal aorta and iliac arteries: No aneurysm. - Celiac and SMA: Patent without stenosis. - Portal venous system (SMV, splenic vein, portal vein and branches): Patent. - Hepatic veins: Patent. Pelvis: No mass, ascites or fluid collection. Urinary bladder is decompressed. Bones/Soft Tissues: No osseous abnormalities. Lower thorax: A chest CT performed will be reported separately. Helper Shear Operator (topogram) images: No additional findings. IMPRESSION: 1. No evidence of splenomegaly or intra-abdominal/pelviclymphadenopathy. 2. No change since 06/10/22. Transcribe Date/Time: Oct 28 2022 11:28A Dictated by: ANUJA MOBLEY MD This examination was interpreted and the report reviewed and electronically signed by: ANUJA MOBLEY MD on Oct 28 2022 11:51AM EST Thank you for allowing us to participate in the care of your patient. Should there be any questions regarding this interpretation, please call [phone]. If you are unable to reach us at the number above, please feel free to contact [facility] at [phone]. [id number]^[email or web address]^ACN us Generic External Data Provider [facility] Final Result documented in this encounter Visit Diagnoses Not on filedocumented in this encounter Care Teams Electron Microprobe Operator Relationship Specialty Start Date End Date Kami Olvera MD [address] [place] [address] PCP - General Family Medicine 07/26/22 10/07/24 Kapil Patel DO [address] [address] PCP - General Family Medicine 10/08/24 aKpil Patel DO [address] [facility] [address] [place] [address] PCP - Amita Roque 10/24/24Monday, FELISHA Mullen [address] [facility] [address] [place] [address] Licensed Practical Nurse Family Medicine 11/25/2411/28 documented as of this encounter
--- OUTSIDE RECORDS SUMMARY | 2024-12-05 10:39 | XMS_ITS | Encounter Summary ---
Author Organization [facility] Address [address] [place] [address] Care Team Providers Care Forest Fire Prevention Manager Name Role Phone Kami Olvera MD Primary Care Provider [phone] Kapil Patel DO Primary Care Provider + [phone] Kapil Patel DO Unavailable [phone] Monday, Paz OR MANAGER Unavailable [phone] Encounter Details Date Type Department Care [...] 2:00 PM EST Office Visit [facility] Neurology [address] [facility] [address] [place] [address] Cole Phillip MD [address] [facility] [address] [place] [address] 04/30/2025 2:15 PM EST Office Visit [facility] [address] [place] [address] Reji De Luna, DO [address] [place] [address] documented as of this encounter Procedures Procedure Name Priority Date/Time Associated Diagnosis Comments CT CHEST W IV CONTRAST 10/28/2022 9:03 AM EDT documented in this encounter Results * CT chest w IV contrast (10/28/2022 9:03 AM EDT) Anatomical Region Laterality Modality Body, Chest Computed Tomogra phy 10/28/2022 9:03 AM EDT Narrative 10/28/2022 11:52 AM EDT * * *Final Report* * * DATE OF EXAM: Oct 28 2022 9:03AM [facility] 0539 - CT CHEST W IVCON / 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 MQ: CTCW_6 Contrast: 140 mL Omnipaque [address] Radiation dose: Integrated Dose-length product (DLP) for this visit = 1255 mGy*cm CT Dose Reduction Employed: Automated exposure control (AEC) Comparison: 06/10/22, 07/07/21 RESULT: Limitations: None. Lines, tubes, and devices: None. Lung parenchyma and airways: No consolidation. No suspicious pulmonary nodule. The central airways are patent. Pleural space: No pleural effusion. No pleural thickening. Lower neck, lymph nodes, and mediastinum: The imaged thyroid gland is normal. 3.6 x 2.8 cm triangular anterior mediastinal soft tissue (3:71), stable since 07/07/21, most likely related to thymic rebound or residual thymus, stable. Otherwise no evidence of lymphadenopathy in the supraclavicular, axillary, mediastinal, or hilar regions. Please refer to the neck CT scan report for the neck findings. Heart, pericardium, and thoracic vessels: The thoracic aorta and main pulmonary artery are normal in caliber. The cardiac chambers are normal in size. No coronary artery atherosclerotic calcifications are noted, although the study is not optimized for coronary assessment. No pericardial effusion or thickening. Bones and soft tissues: No new osseous abnormalities. Upper abdomen: Please refer to the abdomen CT scan report for the abdomen findings. Complaint Supervisor (topogram) images: No additional findings. IMPRESSION: 1. No evidence of intrathoracic lymphadenopathy. No interval change since 06/10/22. 2. Triangular anterior mediastinal soft tissue may represent thymic rebound or residual thymus, stable since 07/07/21. Transcribe Date/Time: Oct 28 2022 11:21A Dictated by: ANUJA MOBLEY MD This examination was interpreted and the report reviewed and electronically signed by: ANUJA MOBLEY MD on Oct 28 2022 11:50AM EST Thank you for allowing us to participate in the care of your patient. Should there be any questions regarding this interpretation, please call [phone]. If you are unable to reach us at the number above, please feel free to contact [facility] at [phone]. 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 MQ: CTCW_6 Contrast: 140 mL Omnipaque [address] Radiation dose: Integrated Dose-length product (DLP) for this visit = 1255 mGy*cm CT Dose Reduction Employed: Automated exposure control (AEC) Comparison: 06/10/22, 07/07/21 RESULT: Limitations: None. Lines, tubes, and devices: None. Lung parenchyma and airways: No consolidation. No suspicious pulmonary nodule. The central airways are patent. Pleural space: No pleural effusion. No pleural thickening. Lower neck, lymph nodes, and mediastinum: The imaged thyroid gland is normal. 3.6 x 2.8 cm triangular anterior mediastinal soft tissue (3:71), stable since 07/07/21, most likely related to thymic rebound or residual thymus, stable. Otherwise no evidence of lymphadenopathy in the supraclavicular, axillary, mediastinal, or hilar regions. Please refer to the neck CT scan report for the neck findings. Heart, pericardium, and thoracic vessels: The thoracic aorta and main pulmonary artery are normal in caliber. The cardiac chambers are normal in size. No coronary artery atherosclerotic calcifications are noted, although the study is not optimized for coronary assessment. No pericardial effusion or thickening. Bones and soft tissues: No new osseous abnormalities. Upper abdomen: Please refer to the abdomen CT scan report for the abdomen findings. Complaint Supervisor (topogram) images: No additional findings. IMPRESSION: 1. No evidence of intrathoracic lymphadenopathy. No interval change since 06/10/22. 2. Triangular anterior mediastinal soft tissue may represent thymic rebound or residual thymus, stable since 07/07/21. Transcribe Date/Time: Oct 28 2022 11:21A Dictated by: ANUJA MOBLEY MD This examination was interpreted and the report reviewed and electronically signed by: ANUJA MOBLEY MD on Oct 28 2022 11:50AM EST Thank you for allowing us to participate in the care of your patient. Should there be any questions regarding this interpretation, please call [phone]. If you are unable to reach us at the number above, please feel free to contact [facility] at [phone]. [id number]^[email or web address]^ACN us Generic External Data Provider IMG CT PROCEDURES Final Result documented in this encounter Visit Diagnoses Not on filedocumented in this encounter Care Teams Forest Fire Prevention Manager Relationship Specialty Start Date End Date Kami Olvera MD [address] [place] [address] PCP - General Family Medicine 07/26/22 10/07/24 Kapil Patel DO [address] [facility] [address] [place] [address] PCP - General Family Medicine 10/08/24 Kapil Patel DO [address] [place] [address] PCP - [place] [employer] 10/24/24Monday, FELISHA Mullen [address] [facility] [address] [place] [address] Licensed Practical Nurse Family Medicine 11/25/2411/28 documented as of this encounter
--- OUTSIDE RECORDS SUMMARY | 2024-12-05 10:39 | XMS_ITS | Encounter Summary ---
Author Organization [facility] Address [address] [place] [address] Care Team Providers Care Management Trainer Name Role Phone Kami Olvera MD Primary Care Provider [phone] Jazzy Dunn RN Unavailable [phone] David House MD Unavailable [phone] Odette Lopez PA-C Unavailable [phone] Rubens Singh MD Unavailable [phone] Source Comments In the event this information is protected by the Federal Confidentiality of Alcohol and Drug AbusePatient Records regulations: The Federal rules restrict any use of the information to criminally investigate or prosecute any alcohol or drug abuse patient.[facility] Encounter Details Date Type Department Care Team (Late st Contact Info) Description 12/01/2020 Patient Msg General Surgery [address] [place] [address] Provider, Ccf EGD Social History [...] on file 02/23/2020 Data from: https://www.neighborhoodatlas.medicine.[facility].edu/. Last address used for calculation [...] documented as of this encounter Care Teams Management Trainer Relationship Specialty Start Date End Date Kami Olvera MD [address] [place] [address] PCP - General Family Medicine 02/01/17 Jazzy Dunn RN [address] [place], [place] [address] Specialty Automobile Radiator Mechanic Hematology/Oncology 07/27/21 04/30/23 David House MD [address] [place] [address] Physician Hematology/Oncology 07/27/21 Odette Lopez PA-C [address] [place] [address] [place] [address] Physician General Agent Hematology/Oncology 07/27/21 Rubens Singh MD [address] [place] [address] Physician Hematology/Oncology 10/08/21 [facility] Palliative Medicine Provider 08/30/21 documented as of this encounter
--- OUTSIDE RECORDS SUMMARY | 2024-12-05 10:39 | XMS_ITS | Encounter Summary ---
Author Organization [facility] Address [address] [place] [address] Care Team Providers Care Record Center Coordinator Name Role Phone JustoDevonte page Primary Care Provider Kami Olvera MD Primary Care Provider [phone] Jazzy Dunn RN Unavailable [phone] David House MD Unavailable [phone] Odette Lopez PA-C Unavailable [phone] Rubens Singh MD Unavailable [phone] Source Comments In the event this information is protected by the Federal Confidentiality of Alcohol and Drug AbusePatient Records regulations: The Federal rules restrict any use of the information to criminally investigate or prosecute any alcohol or drug abuse patient.[facility] Encounter Details Date Type Department Care Team (Late st Contact Info) Description 10/02/2014 Get Medical Advice Neurology [address] [place] [address] Lidia Jones PA-C [address] [place] [address] RE: Visit Follow Up Question [...] documented as of this encounter Care Teams Record Center Coordinator Relationship Specialty Start Date End Date Devonte Kemp DO PCP - General Family Medicine 05/03/13 01/31/17 Kami Olvera MD [address] [place] [address] PCP - General Family Medicine 02/01/17 Jazzy Dunn RN [address] [facility] [place] [address] Specialty Cotton Weigher Hematology/Oncology 07/27/21 04/30/23 David House MD [address] [place], [place] [address] [facility] [place] [address] Physician Hematology/Oncology 07/27/21 Odette Lopez, PA-C [address] [facility] [place] [address] Physician Microeconomics Professor Hematology/Oncology 07/27/21 Rubens Singh MD [address] [facility] [place] [address] Physician Hematology/Oncology 10/08/21 KrysMARVIN [facility] Palliative Medicine Provider 08/30/21 documented as of this encounter
--- OUTSIDE RECORDS SUMMARY | 2024-12-05 10:39 | XMS_ITS | Encounter Summary ---
Author Organization [facility] Address [address] [place] [address] Care Team Providers Care Caseworker Name Role Phone Kami Olvear MD Primary Care Provider [phone] Jazzy Dunn RN Unavailable [phone] David House MD Unavailable [phone] Odette Lopez PA-C Unavailable [phone] Rubens Singh MD Unavailable [phone] Source Comments In the event this information is protected by the Federal Confidentiality of Alcohol and Drug AbusePatient Records regulations: The Federal rules restrict any use of the information to criminally investigate or prosecute any alcohol or drug abuse patient.[facility] Encounter Details Date Type Department Care Team (Late st Contact Info) Description 12/08/2020 Get Medical Advice Gastroenterology [address] [place] [address] [place] [address] [place] [address] RE: Visit Follow Up Question [...] ot on file 02/23/2020 Data from: https://www.neighborhoodatlas.medicine.[facility].edu/. Last address used for calculation [...] documented as of this encounter Care Teams Caseworker Relationship Specialty Start Date End Date Kami Olvera MD [address] [place] [address] PCP - General Family Medicine 02/01/17 Jazzy Dunn RN [address] [place] [address] [place] [address] Specialty Coin Machine Assembler Hematology/Oncology 07/27/21 04/30/23 David House MD [address] [place] [address] [place] [address] Physician Hematology/Oncology 07/27/21 Odette Lopez PA-C [address] [place] [address] [place] [address] Physician Health Plan Specialist Hematology/Oncology 07/27/21 Rubens Singh MD [address] [place] [address] [place] [address] Physician Hematology/Oncology 10/08/21 Fran [facility] Palliative Medicine Provider 08/30/21 documented as of this encounter
--- OUTSIDE RECORDS SUMMARY | 2024-12-05 10:39 | XMS_ITS | Encounter Summary ---
Author Organization [facility] Address [address] [place] [address] Care Team Providers Care Telecommunications Network Engineer Name Role Phone Kami Olvera MD Primary Care Provider [phone] Kapil Patel DO Primary Care Provider + [phone] Kapil Patel DO Unavailable [phone] Monday, Paz FUSION OPERATOR Unavailable [phone] Encounter Details Date Type Department Care [...] 2:00 PM EST Office Visit [facility] [address] [facility] [address] [place] [address] Cole Phillip MD [address] [facility] [address] [place] [address] 04/30/2025 2:15 PM EST Office Visit [facility] Otolaryngology [address] [place] [address] Reji De Luna W, DO [address] [place] [address] documented as of this encounter Procedures Procedure Name Priority Date/Time Associated Diagnosis Comments CT ABD/PEL W IVCON 04/28/2023 1: 15 PM EST documented in this encounter Results * CT ABD/PEL W IVCON (04/28/2023 1:15 PM EST) Anatomical Region Laterality Modality Other 04/28/2023 1:15 PM EST Narrative 04/30/2023 3:28 PM EST * * *Final Report* * * DATE OF EXAM: Apr 28 2023 1:15PM [facility] 0530 - CT ABD/PEL W IVCON / PROCEDURE REASON: Nodular sclerosing Hodgkin's lymphoma, unspecified body region (HCC) * * * * Physician Interpretation * * * * RESULT: EXAMINATION: CT ABDOMEN AND PELVIS WITH IV CONTRAST CLINICAL HISTORY: Nodular sclerosing Hodgkin's lymphoma. TECHNIQUE: CT of the abdomen and pelvis was performed using standard technique, scanning from just above the dome of the diaphragm to the symphysis pubis. MQ: CTAP_3 Contrast: IV: 130 ml of Omnipaque 300 Oral: 300 ml of Omni 240 10-25ml diluted with water CT Radiation dose: Integrated Dose-length product (DLP) for this visit = 612 mGy*cm. CT Dose Reduction Employed: Automated exposure control (AEC) COMPARISON: CT the abdomen and pelvis with contrast from 10/28/2022 RESULT: Liver: Stable subcentimeter hypodense hepatic lesions which are too small to characterize but may represent cysts or hemangiomas. Biliary: Pneumobilia is again noted. Cholecystectomy. Spleen: No mass. No splenomegaly. Pancreas: The main pancreatic duct appears to predominantly draining into the minor papilla, suggesting the possibility of pancreatic divisum type anatomy. Adrenals: No mass. Kidneys: Stable small hypodense lesion on the medial mid to upper pole of the left kidney which likely represents a cyst. GI tract: No small bowel obstruction. Anastomosis na are present along small bowel in the right mid abdomen. Lymph nodes: No abdominal or pelvic lymphadenopathy. Mesentery/Peritoneum: No ascites or mass. Pelvis: Normal variant retroverted uterus. Bifurcation the endometrial canal at the fundus of the uterus with overlying convex fundal contour, suggestive of arcuate/septate uterus. Right ovarian cyst which has a hyperemic and convoluted border, consistent with a corpus luteal cyst. Small volume of free fluid in the pelvis. Bones/Soft Tissues: No significant finding. Lower thorax: A chest CT performed will be reported separately. Cask Maker (topogram) images: No additional findings. IMPRESSION: 1. No significant lymphadenopathy in the abdomen or pelvis. No splenomegaly. Transcribe Date/Time: Apr 30 2023 2:54P Dictated by: REX KHAN MD This examination was interpreted and the report reviewed and electronically signed by: REX KHAN MD on Apr 30 2023 3:26PM EST Thank you for allowing us to participate in the care of your patient. Should there be any questions regarding this interpretation, please call [phone]. If you are unable to reach us at the number above, please feel free to contact [facility] at [phone]. [id number]^[email or web address] Procedure Note Radiology, Radiologist, - 04/30/2023 * * *Final Report* * * DATE OF EXAM: Apr 28 2023 1:15PM [facility] 0530 - CT ABD/PEL W IVCON / PROCEDURE REASON: Nodular sclerosing Hodgkin's lymphoma, unspecified body region (HCC) * * * * Physician Interpretation * * * * RESULT: EXAMINATION: CT ABDOMEN AND PELVIS WITH IV CONTRAST CLINICAL HISTORY: Nodular sclerosing Hodgkin's lymphoma. TECHNIQUE: CT of the abdomen and pelvis was performed using standard technique, scanning from just above the dome of the diaphragm to the symphysis pubis. MQ: CTAP_3 Contrast: IV: 130 ml of Omnipaque 300 Oral: 300 ml of Omni 240 10-25ml diluted with water CT Radiation dose: Integrated Dose-length product (DLP) for this visit = 612 mGy*cm. CT Dose Reduction Employed: Automated exposure control (AEC) COMPARISON: CT the abdomen and pelvis with contrast from 10/28/2022 RESULT: Liver: Stable subcentimeter hypodense hepatic lesions which are too small to characterize but may represent cysts or hemangiomas. Biliary: Pneumobilia is again noted. Cholecystectomy. Spleen: No mass. No splenomegaly. Pancreas: The main pancreatic duct appears to predominantly draining into the minor papilla, suggesting the possibility of pancreatic divisum type anatomy. Adrenals: No mass. Kidneys: Stable small hypodense lesion on the medial mid to upper pole of the left kidney which likely represents a cyst. GI tract: No small bowel obstruction. Anastomosis na are present along small bowel in the right mid abdomen. Lymph nodes: No abdominal or pelvic lymphadenopathy. Mesentery/Peritoneum: No ascites or mass. Pelvis: Normal variant retroverted uterus. Bifurcation the endometrial canal at the fundus of the uterus with overlying convex fundal contour, suggestive of arcuate/septate uterus. Right ovarian cyst which has a hyperemic and convoluted border, consistent with a corpus luteal cyst. Small volume of free fluid in the pelvis. Bones/Soft Tissues: No significant finding. Lower thorax: A chest CT performed will be reported separately. Cask Maker (topogram) images: No additional findings. IMPRESSION: 1. No significant lymphadenopathy in the abdomen or pelvis. No splenomegaly. Transcribe Date/Time: Apr 30 2023 2:54P Dictated by: REX KHAN MD This examination was interpreted and the report reviewed and electronically signed by: REX KHAN MD on Apr 30 2023 3:26PM EST Thank you for allowing us to participate in the care of your patient. Should there be any questions regarding this interpretation, please call [phone]. If you are unable to reach us at the number above, please feel free to contact [facility] at [phone]. [id number]^[email or web address]^ACN us Generic External Data Provider [facility] Final Result documented in this encounter Visit Diagnoses Not on filedocumented in this encounter Care Teams Telecommunications Network Engineer Relationship Specialty Start Date End Date Kami Olvera MD [address] [place] [address] PCP - General Family Medicine 07/26/22 10/07/24 Kapil Patel, DO [address] [place] [address] PCP - General Family Medicine 10/08/24 Kapil Patel DO [address] [place] [address] PCP - [facility] 10/24/24Monday, FELISHA Mullen [address] [facility] [address] [place] [address] Licensed Practical Nurse Family Medicine 11/25/2411/28 documented as of this encounter
--- OUTSIDE RECORDS SUMMARY | 2024-12-05 10:39 | XMS_ITS | Encounter Summary ---
Author Organization [facility] Address [address] [place] [address] Care Team Providers Care Barrel Assembly Inspector Name Role Phone Kami Olvera MD Primary Care Provider [phone] Jazzy Dunn RN Unavailable [phone] David House MD Unavailable [phone] Odette Lopez PA-C Unavailable [phone] Rubens Singh MD Unavailable [phone] Source Comments In the event this information is protected by the Federal Confidentiality of Alcohol and Drug AbusePatient Records regulations: The Federal rules restrict any use of the information to criminally investigate or prosecute any alcohol or drug abuse patient.[facility] Encounter Details Date Type Department Care Team (Late st Contact Info) Description 12/28/2020 Get Medical Advice [facility] [address] [place], [place] [id number] [place] [address] [address] [place], [place] [id number] RE: Non-Urgent Medical Question Social History Tobacco [...] N ot on file 02/23/2020 Data from: https://www.neighborhoodatlas.medicine.[facility].edu/. Last address used for calculation Not [...] documented as of this encounter Care Teams Barrel Assembly Inspector Relationship Specialty Start Date End Date Kami Olvera MD [address] [place] [address] PCP - General Family Medicine 02/01/17 Jazzy Dunn RN [address] [place] [address] [place] [address] Specialty Sales Development Associate Hematology/Oncology 07/27/21 04/30/23 David House MD [address] [place] [address] [place] [address] Physician Hematology/Oncology 07/27/21 Odette Lopez PAPonchoC [address] [place] [address] [place] [address] Physician Staffing Mgr Hematology/Oncology 07/27/21 Rubens Singh MD [address] [place] [address] [place] [address] Physician Hematology/Oncology 10/08/21 Fran [facility] Palliative Medicine Provider 08/30/21 documented as of this encounter
--- OUTSIDE RECORDS SUMMARY | 2024-12-05 10:39 | XMS_ITS | Encounter Summary ---
Author Organization [facility] Address [address] [place] [address] Care Team Providers Care Supervisory Air Intercept Controller Name Role Phone Kami Olvera MD Primary Care Provider [phone] Jazzy Dunn RN Unavailable [phone] David House MD Unavailable [phone] Odette Lopez PA-C Unavailable [phone] Rubens Singh MD Unavailable [phone] Source Comments In the event this information is protected by the Federal Confidentiality of Alcohol and Drug AbusePatient Records regulations: The Federal rules restrict any use of the information to criminally investigate or prosecute any alcohol or drug abuse patient.[facility] Encounter Details Date Type Department Care Team (Late st Contact Info) Description 07/12/2021 Patient Nutrition Therapy [address] [id number] Provider, Ccf After Visit Information Social History [...] N ot on file 02/23/2020 Data from: https://www.neighborhoodatlas.medicine.[facility].edu/. Last address used for calculation Not [...] Assessment Author No 06/23/2021 1:25 PM EDT Sarha Hill RN * Are you blind or [...] documented as of this encounter Care Teams Supervisory Air Intercept Controller Relationship Specialty Start Date End Date Kami Olvera MD [address] [place] [address] PCP - General Family Medicine 02/01/17 Jazzy Dunn RN [address] [facility] [place] [address] Specialty Transformer Builder Hematology/Oncology 07/27/21 04/30/23 David House MD [address] [place] [address] [place] [address] Physician Hematology/Oncology 07/27/21 Odette Lopez PA-C [address] [facility] [place] [address] Physician Reclaimer Hematology/Oncology 07/27/21 Rubens Singh MD [address] [place] [address] Physician Hematology/Oncology 10/08/21 Fran [facility] Palliative Medicine Provider 08/30/21 documented as of this encounter
--- OUTSIDE RECORDS SUMMARY | 2024-12-05 10:39 | XMS_ITS | Encounter Summary ---
Author Organization [facility] Address [address] [place] [address] Care Team Providers Care Bar Welder Name Role Phone Kami Olvera MD Primary Care Provider [phone] Jazzy Dunn RN Unavailable [phone] David House MD Unavailable [phone] Odette Lopez PA-C Unavailable [phone] Rubens Singh MD Unavailable [phone] Source Comments In the event this information is protected by the Federal Confidentiality of Alcohol and Drug AbusePatient Records regulations: The Federal rules restrict any use of the information to criminally investigate or prosecute any alcohol or drug abuse patient.[facility] Encounter Details Date Type Department Care [...] ot on file 02/23/2020 Data from: https://www.neighborhoodatlas.medicine.[facility].edu/. Last address used for calculation Not [...] documented as of this encounter Care Teams Bar Welder Relationship Specialty Start Date End Date Kami Olvera MD [address] [place] [address] PCP - General Family Medicine 02/01/17 Jazzy Dunn RN [address] [facility] [place] [address] Specialty Drapery Counselor Hematology/Oncology 07/27/21 04/30/23 David House MD [address] [facility] [place] [place] [address] Physician Hematology/Oncology 07/27/21 Odette Lopez PA-C [address] [facility] [place] [address] Physician Food Sanitarian Hematology/Oncology 07/27/21 Rubens Singh MD [address] [place] [address] Physician Hematology/Oncology 10/08/21 Fran [facility] Palliative Medicine Provider 08/30/21 documented as of this encounter
--- OUTSIDE RECORDS SUMMARY | 2024-12-05 10:39 | XMS_ITS | Encounter Summary ---
Author Organization [facility] Address [address] [place] [address] Care Team Providers Care Field Marketing Specialist Name Role Phone JustoDevonte page Primary Care Provider Kami Olvera MD Primary Care Provider [phone] Jazzy Dunn RN Unavailable [phone] David House MD Unavailable [phone] Odette Lopez PA-C Unavailable [phone] Rubens Singh MD Unavailable [phone] Source Comments In the event this information is protected by the Federal Confidentiality of Alcohol and Drug AbusePatient Records regulations: The Federal rules restrict any use of the information to criminally investigate or prosecute any alcohol or drug abuse patient.[facility] Encounter Details Date Type Department Care Team (Late st Contact Info) Description 10/10/2014 Get Medical Advice Neurology [address] [place] [address] Lidia Jones PA-C [address] [place] [address] RE: Visit Follow Up Question [...] documented as of this encounter Care Teams Field Marketing Specialist Relationship Specialty Start Date End Date Devonte Kemp DO PCP - General Family Medicine 05/03/13 01/31/17 Kami Olvera MD [address] [place] [address] PCP - General Family Medicine 02/01/17 Jazzy Dunn RN [address] [facility] [place] [address] Specialty Ply Splicer Hematology/Oncology 07/27/21 04/30/23 David House MD [address] [place], [place] [address] [facility] [place] [address] Physician Hematology/Oncology 07/27/21 Odette Lopez, PA-C [address] [facility] [place] [address] Physician Credit Consultant Hematology/Oncology 07/27/21 Rubens Singh MD [address] [facility] [place] [address] Physician Hematology/Oncology 10/08/21 KrysMARVIN [facility] Palliative Medicine Provider 08/30/21 documented as of this encounter
--- OUTSIDE RECORDS SUMMARY | 2024-12-05 10:40 | XMS_ITS | Encounter Summary ---
Author Organization [facility] Address [address] [place] [address] Care Team Providers Care Geospatial Developer Name Role Phone Kami Olvera MD Primary Care Provider [phone] Jazzy Dunn RN Unavailable [phone] David House MD Unavailable [phone] Odette Lopez PA-C Unavailable [phone] Rubens Singh MD Unavailable [phone] Source Comments In the event this information is protected by the Federal Confidentiality of Alcohol and Drug AbusePatient Records regulations: The Federal rules restrict any use of the information to criminally investigate or prosecute any alcohol or drug abuse patient.[facility] Encounter Details Date Type Department Care Team (Late st Contact Info) Description 07/22/2022 Patient M[facility]est [facility] [address] [place] [address] Provider, Ccf Sulfamethoxazole-trim ethoprim refill request [...] on filedocumented in this encounter Care Teams Geospatial Developer Relationship Specialty Start Date End Date Kami Olvera MD [address] [facility] [place] [address] PCP - General Family Medicine 02/01/17 Jazzy Dunn RN [address] [facility] [place] [address] Specialty Swing Ride Operator Hematology/Oncology 07/27/21 04/30/23 David House MD [facility] [place] [address] Physician Hematology/Oncology 07/27/21 Odette Lopez PA-C [address] [place] [address] Physician Executive Creative Director Hematology/Oncology 07/27/21 Rubens Singh MD [address] [place] [address] [place] [address] Physician Hematology/Oncology 10/08/21 Fran [facility] Palliative Medicine Provider 08/30/21 documented as of this encounter
--- OUTSIDE RECORDS SUMMARY | 2024-12-05 10:40 | XMS_ITS | Encounter Summary ---
Author Organization [facility] Address [address] [place] [address] Care Team Providers Care Refrigeration Engineering Teacher Name Role Phone Kami Olvera MD Primary Care Provider [phone] Jazzy Dunn RN Unavailable [phone] David House MD Unavailable [phone] Odette Lopez PA-C Unavailable [phone] Rubens Singh MD Unavailable [phone] Source Comments In the event this information is protected by the Federal Confidentiality of Alcohol and Drug AbusePatient Records regulations: The Federal rules restrict any use of the information to criminally investigate or prosecute any alcohol or drug abuse patient.[facility] Encounter Details Date Type Department Care Team (Late st Contact Info) Description 08/17/2021 Patient Msg General Surgery [address] [place] [address] Sarah Juarez RN EGD Social [...] N ot on file 08/05/2021 Data from: https://www.neighborhoodatlas.medicine.[facility].edu/. Last address used for calculation [address] [...] documented as of this encounter Care Teams Refrigeration Engineering Teacher Relationship Specialty Start Date End Date Kami Olvera MD [address] [facility] [place] [address] PCP - General Family Medicine 02/01/17 Jazzy Dunn RN [address] [facility] [place] [address] Specialty Wet Milling Wheel Operator Hematology/Oncology 07/27/21 04/30/23 David House MD [address] [place] [address] [place] [address] Physician Hematology/Oncology 07/27/21 Odette Lopez PA-C [address] [facility] [place] [address] Physician Purchaser Automotive Parts Hematology/Oncology 07/27/21 Rubens Singh MD [address] [place] [address] Physician Hematology/Oncology 10/08/21 Fran [facility] Palliative Medicine Provider 08/30/21 documented as of this encounter
--- OUTSIDE RECORDS SUMMARY | 2024-12-05 10:40 | XMS_ITS | Encounter Summary ---
Author Organization [facility] Address [address] [place] [address] Care Team Providers Care Medicaid Analyst Name Role Phone Kami Olvera MD Primary Care Provider [phone] Kapil Patel DO Primary Care Provider + [phone] Kapil Patel DO Unavailable [phone] Monday, Paz MOTOR AND CONTROLS TESTER Unavailable [phone] Encounter Details Date Type Department Care Team (Late st Contact Info) Description 10/31/2023 Clinisync Result Encounter [facility] External Department Unsolicited [...] 2:00 PM EST Office Visit [facility] [place] [facility] [address] [place] [address] Cole Phillip MD [address] [place] [address] 04/30/2025 2:15 PM EST Office Visit [facility] [address] [place] [address] Reji De Luna W, DO [address] [place] [address] documented as of this encounter Procedures Procedure Name Priority Date/Time Associated Diagnosis Comments CT CHEST W IV CONTRAST 10/31/2023 9:17 AM EDT documented in this encounter Results * CT chest w IV contrast (10/31/2023 9:17 AM EDT) Anatomical Region Laterality Modality Body, Chest Computed Tomogra phy 10/31/2023 9:17 AM EDT Narrative 10/31/2023 4:44 PM EDT * * *Final Report* * * DATE OF EXAM: Oct 31 2023 9:17AM [facility] 0539 - CT CHEST W IVCON / PROCEDURE REASON: History of Hodgkin's disease * * * * Physician Interpretation * * * * RESULT: EXAMINATION: CHEST CT WITH CONTRAST CLINICAL HISTORY: Hodgkin's lymphoma Technique: Spiral CT acquisition of the chest from the thoracic inlet to the upper abdomen following IV contrast. MQ: CTCW_6 Contrast: 125 mL Omnipaque [address] Radiation dose: Integrated Dose-length product (DLP) for this visit = 581 mGy*cm CT Dose Reduction Employed: Automated exposure control (AEC) Comparison: 04/28/23 and 06/10/22 RESULT: Limitations: None. Lines, tubes, and devices: None. Lung parenchyma and airways: 3 mm left lower lobe groundglass opacity (4:120), stable since 06/10/22. No new airspace opacities.. The central airways are patent. Pleural space: No pleural effusion. No pleural thickening. Lower neck, lymph nodes, and mediastinum: The imaged thyroid gland is normal. Prominent triangular anterior mediastinal soft tissue, most likely related to thymic rebound or [...] CT scan report for the abdomen findings. Application Project Leader (topogram) images: No additional findings. IMPRESSION: 1. No evidence of intrathoracic lymphadenopathy. No interval change since 04/28/23. 2. Triangular anterior mediastinal soft tissue may represent thymic rebound or residual thymus, stable. 3. Nonspecific subcentimeter left lower lobe groundglass opacity, stable since 06/10/22. Transcribe Date/Time: Oct 31 2023 3:19P Dictated by: ANUJA MOBLEY MD This examination was interpreted and the report reviewed and electronically signed by: ANUJA MOBLEY MD on Oct 31 2023 4:42PM EST Thank you for allowing us to participate in the care of your patient. Should there be any questions regarding this interpretation, please call [phone]. If you are unable to reach us at the number above, please feel free to contact [facility] at [phone]. [id number]^[email or web address] Procedure Note Radiology, Radiologist, - 10/31/2023 * * *Final Report* * * DATE OF EXAM: Oct 31 2023 9:17AM [facility] 0539 - CT CHEST W IVCON / PROCEDURE REASON: History of Hodgkin's disease * * * * Physician Interpretation * * * * RESULT: EXAMINATION: CHEST CT WITH CONTRAST CLINICAL HISTORY: Hodgkin's lymphoma Technique: Spiral CT acquisition of the chest from the thoracic inlet to the upper abdomen following IV contrast. MQ: CTCW_6 Contrast: 125 mL Omnipaque [address] Radiation dose: Integrated Dose-length product (DLP) for this visit = 581 mGy*cm CT Dose Reduction Employed: Automated exposure control (AEC) Comparison: 04/28/23 and 06/10/22 RESULT: Limitations: None. Lines, tubes, and devices: None. Lung parenchyma and airways: 3 mm left lower lobe groundglass opacity (4:120), stable since 06/10/22. No new airspace opacities.. The central airways are patent. Pleural space: No pleural effusion. No pleural thickening. Lower neck, lymph nodes, and mediastinum: The imaged thyroid gland is normal. Prominent triangular anterior mediastinal soft tissue, most likely related to thymic rebound or [...] CT scan report for the abdomen findings. Application Project Leader (topogram) images: No additional findings. IMPRESSION: 1. No evidence of intrathoracic lymphadenopathy. No interval change since 04/28/23. 2. Triangular anterior mediastinal soft tissue may represent thymic rebound or residual thymus, stable. 3. Nonspecific subcentimeter left lower lobe groundglass opacity, stable since 06/10/22. Transcribe Date/Time: Oct 31 2023 3:19P Dictated by: ANUJA MOBLEY MD This examination was interpreted and the report reviewed and electronically signed by: ANUJA MOBLEY MD on Oct 31 2023 4:42PM EST Thank you for allowing us to participate in the care of your patient. Should there be any questions regarding this interpretation, please call [phone]. If you are unable to reach us at the number above, please feel free to contact [facility] at [phone]. [id number]^[email or web address] us Generic External Data Provider IMG CT PROCEDURES Final Result documented in this encounter Visit Diagnoses Not on filedocumented in this encounter Care Teams Medicaid Analyst Relationship Specialty Start Date End Date Kami Olvera MD [address] [place] [address] PCP - General Family Medicine 07/26/22 10/07/24 Kapil Patel DO [address] [facility] [address] [place] [address] PCP - General Family Medicine 10/08/24 Kapil Patel DO [address] [place] [address] PCP - Amita Roque 10/24/24Monday, FELISHA Mullen [address] [facility] [address] [place] [address] Licensed Practical Nurse Family Medicine 11/25/2411/28 documented as of this encounter
--- OUTSIDE RECORDS SUMMARY | 2024-12-05 10:40 | XMS_ITS | Encounter Summary ---
Author Organization [facility] Address [address] [place] [address] Care Team Providers Care Credit Balance Specialist Name Role Phone Kapil Patel DO Primary Care Provider [phone] Kapil Patel DO Unavailable [phone], Paz ANDERSONN Unavailable [phone] Encounter Details Date Type Department Care Team (Late st Contact Info) Description 11/19/2024 Abstract [facility] [address] [place] [address] Kapil Patel, DO [address] [place] [address] Social History Tobacco Use Types Packs/Day Years [...] week 11/12/2024 How often do you attend [facility] or muslim services? More than 4 times per year 11/12/2024 Do you belong to any clubs o r organizations such as mu-ism groups, unions, fraternal or athletic groups, or [...] Recorded Patient Health Questionnaire-2 Score 0 11/22/2024 [facility] Occupat ional Health - Occupational Stress [...] any time in the past 12 m [facility], were you homeless or living in a correction (including now)? No 11/12/2024 Comments Unknown Sex and Gender Information Value Date Recorded Sex Assigned at Not on file Legal Sex Female 6:39 PM EDT Gender Identity Female 06/01/2022 6:39 PM EDT Sexual Orientation Not on file documented as of this encounter Functional Status * Over the past 2 weeks, how often have you been bothered by any of the following problems? Question Answer Date of Assessment Author Little interest or pleasure in doing things Not at all 11/22/2024 11:04 AM Gloria Vaughan LPN Feeling down, depressed, or hopeless Not at all 11/22/2024 11:04 AM Ronnell Vaughan LPN Patient Health Questionnaire-2 Score 0 11/22/2024 11:04 AM Elizabeth Vaughan LPN documented as of this encounter Plan of Treatment Upcoming Encounters Date Type Department Care Team (Late st Contact Info) Description 04/29/2025 2:00 PM EST Office Visit [facility] [address] [place] [address] Cole Phillip MD [address] [place] [address] 04/30/2025 2:15 PM EST Office Visit [facility] [address] [place] [address] Reji De Luna, DO [address] [place] [address] documented as of this encounter Visit Diagnoses Not on filedocumented in this encounter Care Teams Credit Balance Specialist Relationship Specialty Start Date End Date Kapil Patel DO [address] [place] [address] PCP - General Family Medicine 10/08/24 Kapil Patel DO [address] [place] [address] PCP - [employer] 10/24/24Monday, FELISHA Mullen [address] [place] [address] Licensed Practical Nurse Family Medicine 11/25/2411/28 documented as of this encounter
--- OUTSIDE RECORDS SUMMARY | 2024-12-05 10:40 | XMS_ITS | Encounter Summary ---
Author Organization [facility] Address [address] [place] [address] Phone Care Team Providers Care Roving Tester Laboratory Name Role Phone Kami Olvera MD Primary Care Provider [phone] Encounter Details Date Type Department Care Team (Late st Contact Info) Description 11/28/2021 Orders Only [facility] [address] [place] [address] Conversion, Onbase Social History Tobacco Use Types [...] on filedocumented in this encounter Care Teams Roving Tester Laboratory Relationship Specialty Start Date End Date Kami Olvera MD [address] [place] [address] PCP - General 03/20/99 documented as of this encounter
--- OUTSIDE RECORDS SUMMARY | 2024-12-05 10:40 | XMS_ITS | Encounter Summary ---
Author Organization [facility] Address [address] [place] [address] Care Team Providers Care Shop Steward Name Role Phone Kami Olvera MD Primary Care Provider [phone] Jazzy Dunn RN Unavailable [phone] David House MD Unavailable [phone] Odette Lopez PA-C Unavailable [phone] Rubens Singh MD Unavailable [phone] Source Comments In the event this information is protected by the Federal Confidentiality of Alcohol and Drug AbusePatient Records regulations: The Federal rules restrict any use of the information to criminally investigate or prosecute any alcohol or drug abuse patient.[facility] Encounter Details Date Type Department Care Team (Late st Contact Info) Description 05/10/2021 Get Medical Advice BMI [facility] [address] [address] [place], [place] [id number] [place] [address] [place], [place] [id number] Feeding Tube Social History Tobacco Use Types [...] N ot on file 02/23/2020 Data from: https://www.neighborhoodatlas.medicine.[facility].edu/. Last address used for calculation Not [...] documented as of this encounter Care Teams Shop Steward Relationship Specialty Start Date End Date Kami Olvera MD [address] [facility] [address] PCP - General Family Medicine 02/01/17 Jazzy Dunn RN [address] [place] [address] Specialty Field Irrigation Worker Hematology/Oncology 07/27/21 04/30/23 David House MD [address] [place] [address] Physician Hematology/Oncology 07/27/21 Odette Lopez PAPonchoC [address] [place] [address] [place] [address] Physician Inclusion Special Educator Hematology/Oncology 07/27/21 Rubens Singh MD [address] [place] [address] [place] [address] Physician Hematology/Oncology 10/08/21 [facility] Palliative Medicine Provider 08/30/21 documented as of this encounter
--- OUTSIDE RECORDS SUMMARY | 2024-12-05 10:40 | XMS_ITS | Encounter Summary ---
Author Organization [facility] Address [facility] [place] [address] Care Team Providers Care Group Program Manager Name Role Phone Kami Olvera MD Primary Care Provider [phone] Jazzy Dunn RN Unavailable [phone] David House MD Unavailable [phone] Odette Lopez PA-C Unavailable [phone] Rubens Singh MD Unavailable [phone] Source Comments In the event this information is protected by the Federal Confidentiality of Alcohol and Drug AbusePatient Records regulations: The Federal rules restrict any use of the information to criminally investigate or prosecute any alcohol or drug abuse patient.[facility] Encounter Details Date Type Department Care Team (Late st Contact Info) Description 07/29/2021 Lab Requisition [facility] Hospital Laboratory [facility] [place] [address] David House MD [address] [place] [address] [address] [place], [place] [phone] Person encountering health services to consult on [...] N ot on file 02/23/2020 Data from: https://www.neighborhoodatlas.medicine.[facility].edu/. Last address used for calculation Not [...] EDT) Case Report Surgical Pathology Report Case: [id number] Authorizing Provider: David House MD Collected: 07/29/2021 02:15 PM Ordering Location: Hosp Lab Main Received: 07/29/2021 02:13 PM Pathologist: Sidney Garza V, MD, PhD Specimen: SLIDE(S), 17 SLIDES ([id number]) 09/08/2021 9:18 PM EDT [facility] FINAL DIAGNOSIS Materials from [facility] in [place], [place] Lymph node, suprapubic, excision ([id number]; 07/21/2021): - Nodular sclerosis classic Hodgkin lymphoma. - See comment. 09/08/2021 9:18 PM EDT [facility] at 2118 EDT Diagnosis Comment [...] from the referring institution are reviewed at [facility]. The neoplastic cells are positive for CD30 and Pax5 (dim). They are negative for CD3, CD20, CD45. Chromogenic in-situ hybridization with probes for Shonna-Frank virus (EBV)-encoded small RNA (SURESH) has been performed at [facility] with appropriately staining controls. The neoplastic cells are negative. 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 Laboratory Developed Test (LDT) Disclaimer: Performance characteristics of immunohistochemical, immunofluorescent and chromogenic in-situ hybridization tests have been determined by the performing laboratory within [facility] s Zak Keysha [facility] Pathology and Laboratory Medicine Crum ([facility], [facility], [facility] or [facility]) in a manner consistent with CLIA requirements. One or more of these tests have not been cleared or approved by the FDA. [facility] is regulated under CLIA as qualified to perform high-complexity testing. These tests are used for clinical purposes. They should not be regarded as investigational or for research. Positive and negative controls stain appropriately. 09/08/2021 9:18 PM EDT [facility] Performing Lab Diagnostic interpretation performed at [facility], [address] [place] [id number] CLIA# [id number] Director Of Broadcast: Zachariah San M.D. 09/08/2021 9:18 PM EDT [facility] Blocks or Slides MICROSCOPE SLIDE / Unknown 07/29/2021 2:15 PM EDT 07/29/2021 2:13 PM EDT us David House MD SURGICAL PATHOLOGY Final Resu lt [facility] [address] [facility] [address] [place] [address], [place] documented in this encounter Visit Diagnoses Diagnosis Person encountering health services to consult on behalf of another person Other person consulting on behalf of another person documented in this encounter Additional Health Concerns Infection Onset Date Last Indicated Resolved Time COVID-19 Rule-Out 09/06/2021 09/06/2021 09/06/2021 6:38 AM EDT documented as of this encounter Care Teams Group Program Manager Relationship Specialty Start Date End Date Kami Olvera MD [address] [place] [phone] PCP - General Family Medicine 02/01/17 Jazzy Dunn RN [address] [facility] [place] [address] Specialty Fire Extinguisher Tester Hematology/Oncology 07/27/21 04/30/23 David House MD [address] [address] [place] [address] Physician Hematology/Oncology 07/27/21 Odette Lopez, PA-C [address] [place] [address] [place] [address] Physician Cnc Router Operator Hematology/Oncology 07/27/21 Rubens Singh MD [address] [place] [address] [place] [address] Physician Hematology/Oncology 10/08/21 [facility] Palliative Medicine Provider 08/30/21 documented as of this encounter
--- OUTSIDE RECORDS SUMMARY | 2024-12-05 10:40 | XMS_ITS | Encounter Summary ---
Author Organization [facility] Address [address] [place] [address] Care Team Providers Care Cylinder Loader Name Role Phone Kami Olvera MD Primary Care Provider [phone] Kapil Patel DO Primary Care Provider + [phone] Kapil Patel DO Unavailable [phone] Monday, Paz PUBLIC AREA SUPERVISOR Unavailable [phone] Encounter Details Date Type Department Care Team (Late st Contact Info) Description 10/02/2024 Abstract [facility] [address] [facility] [address] [place] [phone] Pérez Deleon DPM [address] [facility] [address] [place] [address] Social History Tobacco Use Types Packs/Day Years [...] Encounters Date Type Department Care Team (Late Contact Info) Description 04/29/2025 2:00 PM EST Office Visit [facility] [address] [facility] [address] [place] [address] Cole Phillip MD [address] [facility] [address] [place] [address] 04/30/2025 2:15 PM EST Office Visit [facility] [address] [place] [address] Reji De Luna, DO [address] [place] [address] documented as of this encounter Visit Diagnoses Not on filedocumented in this encounter Care Teams Cylinder Loader Relationship Specialty Start Date End Date Kami Olvera MD [address] [place], [place] [phone] PCP - General Family Medicine 07/26/22 10/07/24 Kapil Patel DO [address] [place] [address] PCP - General Family Medicine 10/08/24 Kapil Patel DO [address] [place] [address] [facility] 10/24/24Monday, FELISHA Mullen [address] [place] [address] Licensed Practical Nurse Family Medicine 11/25/2411/28 documented as of this encounter
--- OUTSIDE RECORDS SUMMARY | 2024-12-05 10:40 | XMS_ITS | Encounter Summary ---
Author Organization [facility] Address [address] [place] [address] Care Team Providers Care Roastmaster Name Role Phone Kami Olvera MD Primary Care Provider [phone] Kapil Patel DO Primary Care Provider + [phone] Kapil Patel DO Unavailable [phone] Monday, Paz MOLDER VACUUM Unavailable [phone] Encounter Details Date Type Department Care [...] [facility] Neurology [address] [place] [address] Cole Phillip MD [address] [place] [address] 04/30/2025 2:15 PM EST Office Visit [facility] [address] [place] [address] Reji De Luna, DO [address] [place] [address] documented as of this encounter Procedures Procedure Name Priority Date/Time Associated Diagnosis Comments CT NECK SOFT TISSUE W IVCON 10/28/2022 9:03 AM EDT documented in this encounter Results * CT NECK SOFT TISSUE W IVCON (10/28/2022 9:03 AM EDT) Anatomical Region Laterality Modality Other 10/28/2022 9:03 AM EDT Narrative 10/28/2022 9:25 AM EDT * * *Final Report* * * DATE OF EXAM: Oct 28 2022 9:03AM [facility] 0013 - CT NECK SOFT TISSUE W IVCON / PROCEDURE REASON: 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 Contrast: Omnipaque 300. Contrast Dose: 140 cc Route of Administration: IV CT Radiation dose: Integrated Dose-length product (DLP) for this visit = 1255 mGy*cm. CT Dose Reduction Employed: Automated exposure control (AEC) RESULT: Postoperative change: None apparent. Suprahyoid Neck: Nasopharynx and oropharynx appear normal. Parapharyngeal tissue planes are preserved. Oral cavity and floor of mouth appear normal within constraints of artifact from dental amalgam. Parotid and submandibular spaces are normal. Pocketbook Maker spaces appear normal. Infrahyoid Neck: Hypopharynx, larynx, and imaged infraglottic trachea appear normal. Imaged upper esophagus is unremarkable. Thyroid gland is homogeneous without evidence of discrete nodule. Lymph Nodes: No cervical lymphadenopathy by size criteria. Carotid Space: No masses. Patent extracranial carotid systems and internal jugular veins bilaterally. Orbits, Face and Skull Base: Orbital soft tissue planes are preserved. Paranasal sinuses are clear. Mastoid air cells and middle ear cavities are clear. No evidence of an osteolytic or osteoblastic process in the skull base. Imaged intracranial contents: No abnormal intracranial enhancement, mass effect, or hydrocephalus. Cervical spine and remaining osseous structures: No discrete osteolytic or osteoblastic process. No significant spondylotic changes in the visualized spine. Lung apices: For detailed intrathoracic findings, please see concurrent CT chest which is reported under a separate accession. Other: Not applicable. IMPRESSION: Normal contrast-enhanced CT of the neck. Transcribe Date/Time: Oct 28 2022 9:19A Dictated by: CHUCK CABRAL MD This examination was interpreted and the report reviewed and electronically signed by: CHUCK CABRAL MD on Oct 28 2022 9:23AM EST Thank you for allowing us to participate in the care of your patient. Should there be any questions regarding this interpretation, please call [phone]. If you are unable to reach us at the number above, please feel free to contact [facility] at [phone]. 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 Contrast: Omnipaque 300. Contrast Dose: 140 cc Route of Administration: IV CT Radiation dose: Integrated Dose-length product (DLP) for this visit = 1255 mGy*cm. CT Dose Reduction Employed: Automated exposure control (AEC) RESULT: Postoperative change: None apparent. Suprahyoid Neck: Nasopharynx and oropharynx appear normal. Parapharyngeal tissue planes are preserved. Oral cavity and floor of mouth appear normal within constraints of artifact from dental amalgam. Parotid and submandibular spaces are normal. Pocketbook Maker spaces appear normal. Infrahyoid Neck: Hypopharynx, larynx, and imaged infraglottic trachea appear normal. Imaged upper esophagus is unremarkable. Thyroid gland is homogeneous without evidence of discrete nodule. Lymph Nodes: No cervical lymphadenopathy by size criteria. Carotid Space: No masses. Patent extracranial carotid systems and internal jugular veins bilaterally. Orbits, Face and Skull Base: Orbital soft tissue planes are preserved. Paranasal sinuses are clear. Mastoid air cells and middle ear cavities are clear. No evidence of an osteolytic or osteoblastic process in the skull base. Imaged intracranial contents: No abnormal intracranial enhancement, mass effect, or hydrocephalus. Cervical spine and remaining osseous structures: No discrete osteolytic or osteoblastic process. No significant spondylotic changes in the visualized spine. Lung apices: For detailed intrathoracic findings, please see concurrent CT chest which is reported under a separate accession. Other: Not applicable. IMPRESSION: Normal contrast-enhanced CT of the neck. Transcribe Date/Time: Oct 28 2022 9:19A Dictated by: CHUCK CABRAL MD This examination was interpreted and the report reviewed and electronically signed by: CHUCK CABRAL MD on Oct 28 2022 9:23AM EST Thank you for allowing us to participate in the care of your patient. Should there be any questions regarding this interpretation, please call [phone]. If you are unable to reach us at the number above, please feel free to contact [facility] at [phone]. [id number]^[email or web address] us Generic External Data Provider [facility] Final Result documented in this encounter Visit Diagnoses Not on filedocumented in this encounter Care Teams Roastmaster Relationship Specialty Start Date End Date Kami Olvera MD [address] [place] [address] PCP - General Family Medicine 07/26/22 10/07/24 Kapil Patel DO [address] [facility] [address] [place] [address] PCP - General Family Medicine 10/08/24 Kapil Patel DO [address] [facility] [address] [place] [address] PCP - Amita Roque 10/24/24Monday, FELISHA Mullen [address] [place] [address] Licensed Practical Nurse Family Medicine 11/25/2411/28 documented as of this encounter
--- OUTSIDE RECORDS SUMMARY | 2024-12-05 10:40 | XMS_ITS | Encounter Summary ---
Author Organization [facility] Address [address] [place] [address] Care Team Providers Care Critical Care Registered Nurse Name Role Phone Kami Olvera MD Primary Care Provider [phone] Jazzy Dunn RN Unavailable [phone] David House MD Unavailable [phone] Odette Lopez PA-C Unavailable [phone] Rubens Singh MD Unavailable [phone] Source Comments In the event this information is protected by the Federal Confidentiality of Alcohol and Drug AbusePatient Records regulations: The Federal rules restrict any use of the information to criminally investigate or prosecute any alcohol or drug abuse patient.[facility] Encounter Details Date Type Department Care Team (Late st Contact Info) Description 02/17/2022 [place] [address] Provider, Ccf Schedule Imaging Follow Up Social [...] place to sleep or slept in a fdc (including now)? No 09/08/2021 Area Deprivation Index Answer Date Juan rded National Score (1-100), lower number is lower ri sk 66 08/05/2021 State Score (1-10), lower number is lower risk N ot on file 08/05/2021 Data from: https://www.neighborhoodatlas.medicine.[facility].edu/. Last address used for calculation [address] [...] on filedocumented in this encounter Care Teams Critical Care Registered Nurse Relationship Specialty Start Date End Date Kami Olvera MD [address] [place] [address] PCP - General Family Medicine 02/01/17 Jazzy Dunn RN [address] [place] [address] Specialty Service Station Manager Hematology/Oncology 07/27/21 04/30/23 David House MD [address] [facility] [place] [address] Physician Hematology/Oncology 07/27/21 Odette Lopez PA-C [address] [place] [address] [place] [address] Physician Sand Cleaning Machine Operator Hematology/Oncology 07/27/21 Rubens Singh MD [address] [place] [address] [place] [address] Physician Hematology/Oncology 10/08/21 Fran [facility] Palliative Medicine Provider 08/30/21 documented as of this encounter
--- OUTSIDE RECORDS SUMMARY | 2024-12-05 10:40 | XMS_ITS | Encounter Summary ---
Author Organization [facility] Address [address] [place] [address] Care Team Providers Care Nursery School Attendant Name Role Phone Kami Olvera MD Primary Care Provider [phone] Kapil Patel DO Primary Care Provider + [phone] Kapil Patel DO Unavailable [phone] Monday, Paz LEGAL TRANSCRIPTIONIST Unavailable [phone] Encounter Details Date Type Department Care Team (Late Contact Info) Description 11/14/2022 Abstract [facility] [address] [place] [phone] Cole Phillip MD [address] [place] [address] Social History Tobacco Use Types Packs/Day Years Used Date Smoking Tobacco: Never Tobacco Cessation:Counseling Given: Not Answered [...] 2:00 PM EST Office Visit [facility] Neurology [address] [facility] [address] [place] [address] Cole Phillip MD [address] [place] [address] 04/30/2025 2:15 PM EST Office Visit [facility] [address] [place] [address] Reji De Luna, DO [address] [address] documented as of this encounter Visit Diagnoses Not on filedocumented in this encounter Care Teams Nursery School Attendant Relationship Specialty Start Date End Date Kami Olvera MD [address] [place], [place] [address] PCP - General Family Medicine 07/26/22 10/07/24 Kapil Patel DO [address] [facility] [address] [place] [address] PCP - General Family Medicine 10/08/24 Kapil Patel DO [address] [facility] [address] [place] [address] P[facility] 10/24/24Monday, FELISHA Mullen [address] [facility] [address] [place], [place] [address] Licensed Practical Nurse Family Medicine 11/25/2411/28 documented as of this encounter
--- OUTSIDE RECORDS SUMMARY | 2024-12-05 10:40 | XMS_ITS | Encounter Summary ---
Author Organization [facility] Address [address] [place] [address] [place] [address] Care Team Providers Care Right Of Way Clearer Name Role Phone Kami Olvera MD Primary Care Provider [phone] Kapil Patel DO Primary Care Provider + [phone] Kapil Patel DO Unavailable [phone] Monday, Paz MEDICAL UNDERWRITER Unavailable [phone] Encounter Details Date Type Department Care Team (Late st Contact Info) Description 09/28/2024 Orders Only [facility] Family Medicine [address] [place] [address] Kami Olvera MD [address] [place] [address] Social History Tobacco Use Types Packs/Day Years [...] 2:00 PM EST Office Visit [facility] Neurology [address] [facility] [address] [place] [address] Cole Phillip MD [address] [place] [address] 04/30/2025 2:15 PM EST Office Visit [facility] [address] [place] [phone] Reji De Luna, DO [address] [place] [address] documented as of this encounter Procedures Procedure Name Priority Date/Time Associated Diagnosis Comments HEMATOLOGY COMMENTS: Routine 09/28/2024 11:34 AM EDT documented in this encounter Results * Hematology Comments: (09/28/2024 11:34 AM EDT) Other Kami Olvera MD LAB BLOOD ORDERABLES Final Re sult documented in this encounter Visit Diagnoses Not on filedocumented in this encounter Care Teams Right Of Way Clearer Relationship Specialty Start Date End Date Kami Olvera MD [address] [place] [address] PCP - General Family Medicine 07/26/22 10/07/24 Kapil Patel DO [address] [place] [address] PCP - General Family Medicine 10/08/24 Kapil Patel DO [address] [place] [address] [facility] 10/24/24Monday, FELISHA Mullen [address] [place] [address] Licensed Practical Nurse Family Medicine 11/25/2411/28 documented as of this encounter
--- OUTSIDE RECORDS SUMMARY | 2024-12-05 10:40 | XMS_ITS | Encounter Summary ---
Author Organization [facility] Address [address] [place] [address] Care Team Providers Care Full Stack Software Developer Name Role Phone Kami Olvera MD Primary Care Provider [phone] Jazzy Dunn RN Unavailable [phone] David House MD Unavailable [phone] Odette Lopez PA-C Unavailable [phone] Rubens Singh MD Unavailable [phone] Source Comments In the event this information is protected by the Federal Confidentiality of Alcohol and Drug AbusePatient Records regulations: The Federal rules restrict any use of the information to criminally investigate or prosecute any alcohol or drug abuse patient.[facility] Encounter Details Date Type Department Care Team (Late st Contact Info) Description 08/12/2021 Patient Msg General Surgery [address] [facility] [address] [place] [address] [place] [address] [address] [facility] [address] [place] [phone] Request an Appointment Social History Tobacco Use [...] N ot on file 08/05/2021 Data from: https://www.neighborhoodatlas.medicine.[facility].edu/. Last address used for calculation [address] [...] documented as of this encounter Care Teams Full Stack Software Developer Relationship Specialty Start Date End Date Kami Olvera MD [address] [place] [address] PCP - General Family Medicine 02/01/17 Jazzy Dunn RN [address] [facility] [place] [address] Specialty Area Field Manager Hematology/Oncology 07/27/21 04/30/23 David House MD [address] [place] [address] Physician Hematology/Oncology 07/27/21 Odette Lopez PA-C [address] [place] [address] Physician Outsole Cementer Hematology/Oncology 07/27/21 Rubens Singh MD [address] [facility] [place] [address] Physician Hematology/Oncology 10/08/21 Fran [facility] Palliative Medicine Provider 08/30/21 documented as of this encounter
--- OUTSIDE RECORDS SUMMARY | 2024-12-05 10:40 | XMS_ITS | Encounter Summary ---
Author Organization [facility] Address [address] [place] [address] Care Team Providers Care Chief Learning Officer Name Role Phone Kami Olvera MD Primary Care Provider [phone] Jazzy Dunn RN Unavailable [phone] David House MD Unavailable [phone] Odette Lopez PA-C Unavailable [phone] Rubens Singh MD Unavailable [phone] Source Comments In the event this information is protected by the Federal Confidentiality of Alcohol and Drug AbusePatient Records regulations: The Federal rules restrict any use of the information to criminally investigate or prosecute any alcohol or drug abuse patient.[facility] Encounter Details Date Type Department Care Team (Late st Contact Info) Description 08/10/2021 Get Medical Advice General Surgery [address] [place] [address] Barrera Whitting[place] PA-C [address] [place] [address] Feeding Tube Leakage Social History [...] N ot on file 08/05/2021 Data from: https://www.neighborhoodatlas.medicine.[facility].edu/. Last address used for calculation [...] documented as of this encounter Care Teams Chief Learning Officer Relationship Specialty Start Date End Date Kami Olvera MD [address] [place] [address] PCP - General Family Medicine 02/01/17 Jazzy Dunn RN [address] [facility] [place] [address] Specialty Community Health Worker Hematology/Oncology 07/27/21 04/30/23 David House MD [address] [place] [address] Physician Hematology/Oncology 07/27/21 Odette Lopez PA-C [address] [facility] [place] [address] Physician Railroad Firer Hematology/Oncology 07/27/21 Rubens Singh MD [address] [facility] [place] [address] Physician Hematology/Oncology 10/08/21 Fran [facility] Palliative Medicine Provider 08/30/21 documented as of this encounter
--- OUTSIDE RECORDS SUMMARY | 2024-12-05 10:40 | XMS_ITS | Clinical Summary ---
Author Organization [facility] Address [address] [place] [address] Phone Care Team Providers Care Physical Therapist Technician Name Role Phone Kami Olvera MD Primary Care Provider [phone] Social History Tobacco Use Types Packs/Day Years [...] of Treatment Not on file Care Teams Physical Therapist Technician Relationship Specialty Start Date End Date Kami Olvera MD [address] [place] [address] PCP - General 03/20/99
--- OUTSIDE RECORDS SUMMARY | 2024-12-05 10:40 | XMS_ITS | Encounter Summary ---
Author Organization [facility] Address [address] [place] [address] Care Team Providers Care Loading Unit Operator Crimping Name Role Phone Kami Olvera MD Primary Care Provider [phone] Jazzy Dunn RN Unavailable [phone] David House MD Unavailable [phone] Odette Lopez PA-C Unavailable [phone] Rubens Singh MD Unavailable [phone] Source Comments In the event this information is protected by the Federal Confidentiality of Alcohol and Drug AbusePatient Records regulations: The Federal rules restrict any use of the information to criminally investigate or prosecute any alcohol or drug abuse patient.[facility] Encounter Details Date Type Department Care Team (Late st Contact Info) Description 02/01/2021 Get Medical Advice [facility] [address] [place], [place] [phone] [place] [address] [address] [place], [place] [phone] Feed rate Social History Tobacco Use Types [...] N ot on file 02/23/2020 Data from: https://www.neighborhoodatlas.medicine.[facility].edu/. Last address used for calculation [...] documented as of this encounter Care Teams Loading Unit Operator Crimping Relationship Specialty Start Date End Date Kami Olvera MD [address] [place] [address] PCP - General Family Medicine 02/01/17 Jazzy Dunn RN [address] [place] [address] Specialty Rope Tow Operator Hematology/Oncology 07/27/21 04/30/23 David House MD [address] [place] [address] [place] [address] Physician Hematology/Oncology 07/27/21 Odette Lopez PA-C [address] [place] [address] [place] [address] Physician Full Time Staff Interpreter Hematology/Oncology 07/27/21 Rubens Singh MD [address] [place] [address] Physician Hematology/Oncology 10/08/21 Fran [facility] Palliative Medicine Provider 08/30/21 documented as of this encounter
--- OUTSIDE RECORDS SUMMARY | 2024-12-05 10:40 | XMS_ITS | Encounter Summary ---
Author Organization [facility] Address [address] [facility] [place] [address] Care Team Providers Care Venetian Blind Maker Name Role Phone Kami Olvera MD Primary Care Provider [phone] PetKapil looney DO Primary Care Provider + [phone] Kapil Patel DO Unavailable [phone] Monday, Paz COLLEGE FOOTBALL COACH Unavailable [phone] Encounter Details Date Type Department Care Team (Late st Contact Info) Description 09/28/2024 Results Follow-Up [facility] Family Medicine [address] [place] [address] Jessica Morris NP [address] [place] [address] TSH W/REFLEX TO FT4, US thyroid Social History Tobacco Use Types Packs/Day Years [...] 04/29/2025 2:00 PM EST Office Visit [facility] [address] [place] [address] Cole Phillip MD [address] [place] [address] 04/30/2025 2:15 PM EST Office Visit [facility] [place] [facility] [address] [place] [address] Reji De Luna, DO [address] [place] [address] documented as of this encounter Visit Diagnoses Not on filedocumented in this encounter Care Teams Venetian Blind Maker Relationship Specialty Start Date End Date Kami Olevra MD [address] [place], [place] [address] PCP - General Family Medicine 07/26/22 10/07/24 Kapil Patel DO [address] [place] [address] [place] [address] PCP - General Family Medicine 10/08/24 Kapil Patel DO [address] [place] [address] [place] [address] [facility] 10/24/24Monday, FELISHA Mullen [address] [place], [place] [address] Licensed Practical Nurse Family Medicine 11/25/2411/28 documented as of this encounter
--- OUTSIDE RECORDS SUMMARY | 2024-12-05 10:40 | XMS_ITS | Encounter Summary ---
Author Organization [facility] Address [address] [place] [address] Care Team Providers Care Manager Of Drilling Name Role Phone Kami Olvera MD Primary Care Provider [phone] Kapil Patel DO Primary Care Provider + [phone] Kapil Patel DO Unavailable [phone] Monday, Paz TARIFF COMPILING CLERK Unavailable [phone] Encounter Details Date Type Department Care Team (Late st Contact Info) Description 09/18/2024 Abstract [facility] [address] [place] [address] Pérez Deleon DPM [address] [facility] [address] [place] [address] Social History Tobacco Use Types [...] 2:00 PM EST Office Visit [facility] Neurology [address] [facility] [address] [place] [address] Cole Phillip MD [address] [facility] [address] [place] [address] 04/30/2025 2:15 PM EST Office Visit [facility] [address] [place] [address] Reji De Luna, DO [address] [place] [address] documented as of this encounter Visit Diagnoses Not on filedocumented in this encounter Care Teams Manager Of Drilling Relationship Specialty Start Date End Date Kami Olvera MD [address] [place], [place] [address] PCP - General Family Medicine 07/26/22 10/07/24 Kapil Patel DO [address] [facility] [address] [place] [address] PCP - General Family Medicine 10/08/24 Kapil Patel DO [address] [facility] [place] [address] PCP - [facility] 10/24/24Monday, FELISHA Mullen [address] [place] [address] Licensed Practical Nurse Family Medicine 11/25/2411/28 documented as of this encounter
--- OUTSIDE RECORDS SUMMARY | 2024-12-05 10:40 | XMS_ITS | Encounter Summary ---
Author Organization [facility] Address [address] [place] [address] Care Team Providers Care Solar Installer Name Role Phone Kami Olvera MD Primary Care Provider [phone] Jazzy Dunn RN Unavailable [phone] David House MD Unavailable [phone] Odette Lopez PA-C Unavailable [phone] Rubens Singh MD Unavailable [phone] Source Comments In the event this information is protected by the Federal Confidentiality of Alcohol and Drug AbusePatient Records regulations: The Federal rules restrict any use of the information to criminally investigate or prosecute any alcohol or drug abuse patient.[facility] Encounter Details Date Type Department Care Team (Late st Contact Info) Description 05/07/2021 Patient Msg Family Medicine [address] [place] [address] Provider, Ccf Appointment change Social [...] on file 02/23/2020 Data from: https://www.neighborhoodatlas.medicine.[facility].edu/. Last address used for calculation Not [...] End Date Kami Olvera MD [address] [facility] [place] [phone] PCP - General Family Medicine 02/01/17 Jazzy Dunn RN [address] [place] [address] Specialty Line Erector Apprentice Hematology/Oncology 07/27/21 04/30/23 David House MD [address] [place] [address] Physician Hematology/Oncology 07/27/21 dOette Lopez PA-C [address] [facility] [place] [address] Physician Terra Cotta Mason Hematology/Oncology 07/27/21 Rubens Singh MD [address] [place] [address] Physician Hematology/Oncology 10/08/21 [facility] Palliative Medicine Provider 08/30/21 documented as of this encounter
--- OUTSIDE RECORDS SUMMARY | 2024-12-05 10:40 | XMS_ITS | Encounter Summary ---
Author Organization [facility] Address [address] [place] [address] Care Team Providers Care Discharging Machine Operator Name Role Phone Kapil Patel DO Primary Care Provider [phone]- [phone] Kapil Patel DO Unavailable [phone], Paz ANDERSONN Unavailable [phone] Encounter Details Date Type Department Care Team (Late st Contact Info) Description 11/18/2024 Abstract [facility] [address] [place] [address] Kapil Patel, DO [address] [place] [address] Social History Tobacco Use Types Packs/Day Years [...] week 11/12/2024 How often do you attend [facility] or holiness services? More than 4 times per year 11/12/2024 Do you belong to any clubs o r organizations such as quaker groups, unions, fraternal or athletic groups, or [...] Recorded Patient Health Questionnaire-2 Score 0 11/22/2024 [facility] - Occupational [...] any time in the past 12 m [facility], were you homeless or living in a retirement (including now)? No 11/12/2024 Comments Unknown Sex [...] 2:00 PM EST Office Visit [facility] [address] [facility] [address] [place] [address] Cole Phillip MD [address] [facility] [address] [place] [address] 04/30/2025 2:15 PM EST Office Visit [facility] [address] [place] [address] Reji De Luna DO [address] [place] [address] documented as of this encounter Visit Diagnoses Not on filedocumented in this encounter Care Teams Discharging Machine Operator Relationship Specialty Start Date End Date Kapil Patel, DO [address] [place] [address] PCP - General Family Medicine 10/08/24 Kapil Patel DO [address] [place] [address] PCP - Amita Roque 10/24/24Monday, FELISHA [place] [address] [facility] [address] [place] [address] Licensed Practical Nurse Family Medicine 11/25/2411/28 documented as of this encounter
--- OUTSIDE RECORDS SUMMARY | 2024-12-05 10:40 | XMS_ITS | Encounter Summary ---
Author Organization [facility] Address [address] [place] [address] Care Team Providers Care Ehs Specialist Name Role Phone Kami Olvera MD Primary Care Provider [phone] Jazzy Dunn RN Unavailable [phone] David House MD Unavailable [phone] Odette Lopez PA-C Unavailable [phone] Rubens Singh MD Unavailable [phone] Source Comments In the event this information is protected by the Federal Confidentiality of Alcohol and Drug AbusePatient Records regulations: The Federal rules restrict any use of the information to criminally investigate or prosecute any alcohol or drug abuse patient.[facility] Encounter Details Date Type Department Care Team (Late st Contact Info) Description 08/09/2021 Patient Msg Nutrition Therapy [address] [place] [address] [place] [address] Provider, Ccf [place]: Tube Feeding Formula Update Social History Tobacco [...] N ot on file 08/05/2021 Data from: https://www.neighborhoodatlas.medicine.[facility].edu/. Last address used for calculation [address] [...] documented as of this encounter Care Teams Ehs Specialist Relationship Specialty Start Date End Date Kami Olvera MD [address] [facility] [place] [address] PCP - General Family Medicine 02/01/17 Jazzy Dunn RN [address] [place] [address] Specialty Tobacco Sample Puller Hematology/Oncology 07/27/21 04/30/23 David House MD [address] [place] [address] [place] [address] Physician Hematology/Oncology 07/27/21 Odette Lopez PA-C [address] [place] [address] [place] [address] Physician Hip Hop Performers Hematology/Oncology 07/27/21 Rubens Singh MD [address] [place], [place] [address] Physician Hematology/Oncology 10/08/21 Fran [facility] Palliative Medicine Provider 08/30/21 documented as of this encounter
--- OUTSIDE RECORDS SUMMARY | 2024-12-05 10:40 | XMS_ITS | Encounter Summary ---
Author Organization [facility] Address [address] [place] [address] Phone Care Team Providers Care Senior Electronics Design Engineer Name Role Phone Kami Olvera MD Primary Care Provider [phone] Encounter Details Date Type Department Care Team (Late st Contact Info) Description 08/23/2021 Orders Only [facility] [address] [place] [address] Conversion, Onbase Social History Tobacco Use Types [...] on filedocumented in this encounter Care Teams Senior Electronics Design Engineer Relationship Specialty Start Date End Date Kami Olvera MD [address] [place] [phone] PCP - General 03/20/99 documented as of this encounter
--- OUTSIDE RECORDS SUMMARY | 2024-12-05 10:40 | XMS_ITS | Encounter Summary ---
Author Organization [facility] Address [address] [place] [place] [address] Care Team Providers Care Fabricator Special Items Name Role Phone Shaina Patelarleen Alfred DO Primary Care Provider + [phone] RenaKapil looney DO Unavailable [phone] Monday, Paz TIMBER APPRAISER Unavailable [phone] Encounter Details Date Type Department Care Team (Late st Contact Info) Description 11/04/2024 Abstract [facility] [address] [place] [address] Kami Olvera MD [address] [place], [place] [id number] Social History Tobacco Use Types Packs/Day Years [...] 2:00 PM EST Office Visit [facility] [place] [facility] [address] [facility] [address] [place] [address] Cole Phillip MD [address] [facility] [address] [place] [address] 04/30/2025 2:15 PM EST Office Visit [facility] [place] [facility] [address] [place] [address] Reji De Luna, DO [address] [place] [address] documented as of this encounter Visit Diagnoses Not on filedocumented in this encounter Care Teams Fabricator Special Items Relationship Specialty Start Date End Date Kapil Patel DO [address] [place] [address] PCP - General Family Medicine 10/08/24 Kapil Patel DO [address] [place] [address] [facility] 10/24/24Monday, FELISHA M[place] [address] [facility] [address] [place] [address] Licensed Practical Nurse Family Medicine 11/25/2411/28 documented as of this encounter
--- OUTSIDE RECORDS SUMMARY | 2024-12-05 10:40 | XMS_ITS | Encounter Summary ---
Author Organization [facility] Address [address] [place] [address] Care Team Providers Care Home Health Lpn Name Role Phone Kapil Patel DO Primary Care Provider +- [phone] Kapil Patel DO Unavailable [phone], Paz ANDERSONN Unavailable [phone] Encounter Details Date Type Department Care Team (Late st Contact Info) Description 11/19/2024 Abstract [facility] [address] [place] [address] Kapil Patel, DO [address] [place] [address] Social History Tobacco Use Types Packs/Day Years [...] week 11/12/2024 How often do you attend [facility] or latter day services? More than 4 times per year 11/12/2024 Do you belong to any clubs o r organizations such as zoroastrian groups, unions, fraternal or athletic groups, or [...] Recorded Patient Health Questionnaire-2 Score 0 11/22/2024 [facility] - Occupational [...] any time in the past 12 m [facility], were you homeless or living [...] Neurology [address] [place] [address] Cole Phillip MD [address] [place] [address] 04/30/2025 2:15 PM EST Office Visit [facility] [address] [place] [address] Reji De Luna, DO [address] [place] [address] documented as of this encounter Visit Diagnoses Not on filedocumented in this encounter Care Teams Home Health Lpn Relationship Specialty Start Date End Date Kapil Patel DO [address] [place] [address] PCP - General Family Medicine 10/08/24 Kapil Patel DO [address] [place] [address] PCP - [employer] 10/24/24Monday, FELISHA Mullen [address] [place] [address] Licensed Practical Nurse Family Medicine 11/25/2411/28 documented as of this encounter
--- OUTSIDE RECORDS SUMMARY | 2024-12-05 10:40 | XMS_ITS | Encounter Summary ---
Author Organization [facility] Address [address] [place] [address] Care Team Providers Care Saute Chef Name Role Phone Kami Olvera MD Primary Care Provider [phone] Kapil Patel DO Primary Care Provider + [phone] Kapil Patel DO Unavailable [phone] Monday, Paz STORE SALES CONSULTANT Unavailable [phone] Encounter Details Date Type Department Care [...] 2:00 PM EST Office Visit [facility] [place] [facility] [address] [place] [address] Cole Phillip MD [address] [place] [address] 04/30/2025 2:15 PM EST Office Visit [facility] [address] [place] [address] Reji De Luna W, DO [address] [place] [address] documented as of this encounter Procedures Procedure Name Priority Date/Time Associated Diagnosis Comments CT ABD/PEL W IVCON 10/31/2023 9: 17 AM EDT documented in this encounter Results * CT ABD/PEL W IVCON (10/31/2023 9:17 AM EDT) Anatomical Region Laterality Modality Other 10/31/2023 9:17 AM EDT Narrative 10/31/2023 4:45 PM EDT * * *Final Report* * * DATE OF EXAM: Oct 31 2023 9:17AM [facility] 0530 - CT ABD/PEL W IVCON / PROCEDURE REASON: History of Hodgkin's disease * * * * Physician Interpretation * * * * RESULT: EXAMINATION: CT ABDOMEN AND PELVIS WITH IV CONTRAST CLINICAL HISTORY: Hodgkin's lymphoma TECHNIQUE: CT of the abdomen and pelvis was performed using standard technique, scanning from just above the dome of the diaphragm to the symphysis pubis. MQ: CTAP_3 Contrast: IV: 125 ml of Omnipaque 300 Oral: 500 ml of Omni 240 10-25ml diluted with water CT Radiation dose: Integrated Dose-length product (DLP) for this visit = 581 mGy*cm. CT Dose Reduction Employed: Automated exposure control (AEC) COMPARISON: 04/28/23 RESULT: Liver: No mass. Punctate left hepatic cyst (3: 12, 29), stable. Biliary: No bile duct dilation. Gallbladder is absent. Spleen: No mass. No splenomegaly. Nonenlarged measuring 7-8 cm in length. Pancreas: No mass or duct dilation. Adrenals: No mass. Kidneys: 1 cm hyperdense cyst left renal cyst, stable. No suspicious enhancing renal mass or hydronephrosis. GI tract: No dilation or wall thickening. Postoperative changes of the small bowel are noted. Stool is noted throughout the colon. Lymph nodes: No abdominal or pelvic lymphadenopathy. [...] chest CT performed will be reported separately. Scrap Hoist Operator (topogram) images: No additional findings. IMPRESSION: 1. No evidence of splenomegaly or intra-abdominal/pelvic lymphadenopathy. 2. No change since 04/28/23. Transcribe Date/Time: Oct 31 2023 4:17P Dictated by: ANUJA MOBLEY MD This examination was interpreted and the report reviewed and electronically signed by: ANUJA MOBLEY MD on Oct 31 2023 4:42PM EST Thank you for allowing us to participate in the care of your patient. Should there be any questions regarding this interpretation, please call [phone]. If you are unable to reach us at the number above, please feel free to contact [facility] at [phone]. [id number]^[email or web address]^ACN Procedure Note Radiology, Radiologist, - 10/31/2023 * * *Final Report* * * DATE OF EXAM: Oct 31 2023 9:17AM [facility] 0530 - CT ABD/PEL W IVCON / PROCEDURE REASON: History of Hodgkin's disease * * * * Physician Interpretation * * * * RESULT: EXAMINATION: CT ABDOMEN AND PELVIS WITH IV CONTRAST CLINICAL HISTORY: Hodgkin's lymphoma TECHNIQUE: CT of the abdomen and pelvis was performed using standard technique, scanning from just above the dome of the diaphragm to the symphysis pubis. MQ: CTAP_3 Contrast: IV: 125 ml of Omnipaque 300 Oral: 500 ml of Omni 240 10-25ml diluted with water CT Radiation dose: Integrated Dose-length product (DLP) for this visit = 581 mGy*cm. CT Dose Reduction Employed: Automated exposure control (AEC) COMPARISON: 04/28/23 RESULT: Liver: No mass. Punctate left hepatic cyst (3: 12, 29), stable. Biliary: No bile duct dilation. Gallbladder is absent. Spleen: No mass. No splenomegaly. Nonenlarged measuring 7-8 cm inlength. Pancreas: No mass or duct dilation. Adrenals: No mass. Kidneys: 1 cm hyperdense cyst left renal cyst, stable. No suspicious enhancing renal mass or hydronephrosis. GI tract: No dilation or wall thickening. Postoperative changes of the small bowel are noted. Stool is noted throughout the colon. Lymph nodes: No abdominal or pelvic lymphadenopathy. [...] chest CT performed will be reported separately. Scrap Hoist Operator (topogram) images: No additional findings. IMPRESSION: 1. No evidence of splenomegaly or intra-abdominal/pelviclymphadenopathy. 2. No change since 04/28/23. Transcribe Date/Time: Oct 31 2023 4:17P Dictated by: ANUJA MOBLEY MD This examination was interpreted and the report reviewed and electronically signed by: ANUJA MOBLEY MD on Oct 31 2023 4:42PM EST Thank you for allowing us to participate in the care of your patient. Should there be any questions regarding this interpretation, please call [phone]. If you are unable to reach us at the number above, please feel free to contact [facility]iology at [phone]. [id number]^[email or web address]^ACN us Generic External Data Provider [facility] Final Result documented in this encounter Visit Diagnoses Not on filedocumented in this encounter Care Teams Saute Chef Relationship Specialty Start Date End Date Kami Olvera MD [address] [place] [address] PCP - General Family Medicine 07/26/22 10/07/24 Kapil Patel DO [address] [address] PCP - General Family Medicine 10/08/24 Kapil Patel DO [address] [facility] [address] [place] [address] PCP - Amita Roque 10/24/24Monday, FELISHA Mullen [address] [facility] [address] [place] [address] Licensed Practical Nurse Family Medicine 11/25/2411/28 documented as of this encounter
--- OUTSIDE RECORDS SUMMARY | 2024-12-05 10:40 | XMS_ITS | Encounter Summary ---
Author Organization [facility] Address [address] [facility] [place] [place] [address] Care Team Providers Care Prop Cutter Name Role Phone Kami Olvera MD Primary Care Provider [phone] Kapil Patel DO Primary Care Provider + [phone] Kapil Patel DO Unavailable [phone] Monday, Paz RAW CHEESE WORKER Unavailable [phone] Encounter Details Date Type Department Care Team (Late st Contact Info) Description 08/08/2023 Clinisync Result Encounter [facility] External Department Unsolicited [...] 2:00 PM EST Office Visit [facility] [place] [facility] [address] [place] [address] Cole Phillip MD [address] [facility] [facility] [address] [place] [address] 04/30/2025 2:15 PM EST Office Visit [facility] [address] [place] [address] Reji De Luna, DO [address] [place] [address] documented as of this encounter Procedures Procedure Name Priority Date/Time Associated Diagnosis Comments MRI PANC/CLAYTON WO IVCON 08/08/2023 11:29 AM EDT documented in this encounter Results * MRI PANC/CLAYTON WO IVCON (08/08/2023 11:29 AM EDT) Anatomical Region Laterality Modality Other 08/08/2023 11:2 9 AM EDT Narrative 08/08/2023 4:56 PM EDT * * *Final Report* * * DATE OF EXAM: Aug 08 2023 11:29AM [facility] 0729 - MRI PANC/CLAYTON WO IVCON / PROCEDURE REASON: Right upper quadrant pain * * * * Physician Interpretation * * * * HISTORY: Right upper quadrant pain. TECHNIQUE: Multiplanar, multisequence MR imaging of the abdomen without the use of intravenous contrast material. Post processed MRCP sequences were also obtained. COMPARISON: CT performed 04/28/2023 FINDINGS: Liver: The liver is normal in size, morphology, and signal. Subcentimeter cysts are noted in the left hepatic lobe. No suspicious hepatic masses are identified. Normal flow voids are noted in the portal and hepatic veins. Bile ducts: The intrahepatic ducts are normal in caliber. No beading or stricturing is noted. 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 There is a common bile duct stump measuring up to 7 mm in diameter, similar in appearance to prior exams. No calculus or mass is visualized. Gallbladder: Surgically absent. Pancreas: The pancreas is normal in size, morphology, and signal. No focal pancreatic lesions are noted. The main pancreatic duct empties into the minor papilla, compatible with pancreas divisum. No pancreatic ductal dilation is seen. Spleen: No splenomegaly. No splenic mass. Adrenal glands: Unremarkable without focal mass. Kidneys: The kidneys are normal in size and morphology. No calculus or hydronephrosis is noted. A 1.1 cm cyst versus calyceal diverticulum is seen in the upper pole of the left kidney. No additional renal lesions are noted. Bowel: The stomach is unremarkable. Postsurgical changes are noted in keeping with hepaticojejunostomy. Visualized small bowel loops are unremarkable. The colon is unremarkable. Peritoneum: No fluid collection or free air is seen. Retroperitoneum: No significant retroperitoneal lymphadenopathy is identified. Visualized osseous structures: Unremarkable. IMPRESSION: 1. Stable postsurgical changes as noted above. No acute process is noted within the visualized abdomen. 2. Incidental note made of pancreas divisum. No pancreatic duct dilation. Catering Manager: [facility] Transcribe Date/Time: Aug 08 2023 4:40P Dictated by : SERGEY BATEMAN MD This examination was interpreted and the report reviewed and electronically signed by: SERGEY BATEMAN MD on Aug 08 2023 4:54PM EST [id number]^[email or web address]^ACN Procedure Note Radiology, Radiologist, - 08/08/2023 * * *Final Report* * * DATE OF EXAM: Aug 08 2023 11:29AM [facility] 0729 - MRI PANC/CLAYTON WO IVCON / PROCEDURE REASON: Right upper quadrant pain * * * * Physician Interpretation * * * * HISTORY: Right upper quadrant pain. TECHNIQUE: Multiplanar, multisequence MR imaging of the abdomen without the use of intravenous contrast material. Post processed MRCP sequences were also obtained. COMPARISON: CT performed 04/28/2023 FINDINGS: Liver: The liver is normal in size, morphology, and signal. Subcentimeter cysts are noted in the left hepatic lobe. No suspicious hepatic masses are identified. Normal flow voids are noted in the portal and hepatic veins. Bile ducts: The intrahepatic ducts are normal in caliber. No beading or stricturing is noted. 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 There is a common bile duct stump measuring up to 7 mm in diameter, similar in appearance to prior exams. No calculus or mass is visualized. Gallbladder: Surgically absent. Pancreas: The pancreas is normal in size, morphology, and signal. No focal pancreatic lesions are noted. The main pancreatic duct empties into the minor papilla, compatible with pancreas divisum. No pancreatic ductal dilation is seen. Spleen: No splenomegaly. No splenic mass. Adrenal glands: Unremarkable without focal mass. Kidneys: The kidneys are normal in size and morphology. No calculus or hydronephrosis is noted. A 1.1 cm cyst versus calyceal diverticulum is seen in the upper pole of the left kidney. No additional renal lesions are noted. Bowel: The stomach is unremarkable. Postsurgical changes are noted in keeping with hepaticojejunostomy. Visualized small bowel loops are unremarkable. The colon is unremarkable. Peritoneum: No fluid collection or free air is seen. Retroperitoneum: No significant retroperitoneal lymphadenopathy is identified. Visualized osseous structures: Unremarkable. IMPRESSION: 1. Stable postsurgical changes as noted above. No acute process is noted within the visualized abdomen. 2. Incidental note made of pancreas divisum. No pancreatic duct dilation. Catering Manager: [facility] Transcribe Date/Time: Aug 08 2023 4:40P Dictated by : SERGEY BATEMAN MD This examination was interpreted and the report reviewed and electronically signed by: SERGEY BATEMAN MD on Aug 08 2023 4:54PM EST [id number]^[email or web address]^ACN Generic External Data Provider [facility] Final Result documented in this encounter Visit Diagnoses Not on filedocumented in this encounter Care Teams Prop Cutter Relationship Specialty Start Date End Date Kami Olvera MD [address] [place] [address] PCP - General Family Medicine 07/26/22 10/07/24 Kapil Patel DO [address] [place] [address] PCP - General Family Medicine 10/08/24 Kapil Patel DO [address] [place] [address] PCP - [facility] 10/24/24Monday, FELISHA Mullen [address] [place] [address] Licensed Practical Nurse Family Medicine 11/25/2411/28 documented as of this encounter
--- OUTSIDE RECORDS SUMMARY | 2024-12-05 10:40 | XMS_ITS | Encounter Summary ---
Author Organization [facility] Address [address] [place] [address] Care Team Providers Care Fiscal Economist Name Role Phone Kami Olvera MD Primary Care Provider [phone] Jazzy Dunn RN Unavailable [phone] David House MD Unavailable [phone] Odette Lopez PA-C Unavailable [phone] Rubens Singh MD Unavailable [phone] Source Comments In the event this information is protected by the Federal Confidentiality of Alcohol and Drug AbusePatient Records regulations: The Federal rules restrict any use of the information to criminally investigate or prosecute any alcohol or drug abuse patient.[facility] Encounter Details Date Type Department Care Team (Late st Contact Info) Description 02/16/2021 Patient Msg Pre Anesthesia [address] [place] [address] Rafaela Roman PA-C [address] [place] [address] Preoperative Instructions Social History Tobacco [...] documented as of this encounter Care Teams Fiscal Economist Relationship Specialty Start Date End Date Kami Olvera MD [address] [place] [address] PCP - General Family Medicine 02/01/17 Jazzy Dunn RN [address] [place] [address] [place] [address] Specialty Poultry Farmer Egg Hematology/Oncology 07/27/21 04/30/23 David House MD [address] [place] [address] [place] [address] Physician Hematology/Oncology 07/27/21 Odette Lopez PA-C [address] [place] [address] [place] [address] Physician Channel Process Plant Operator Hematology/Oncology 07/27/21 Rubens Singh MD [address] [place] [address] Physician Hematology/Oncology 10/08/21 Fran [facility] Palliative Medicine Provider 08/30/21 documented as of this encounter
--- OUTSIDE RECORDS SUMMARY | 2024-12-05 10:40 | XMS_ITS | Encounter Summary ---
Author Organization [facility] Address [address] [place] [address] [place] [address] Care Team Providers Care Nonfarm Animal Caretaker Name Role Phone Kapil Patel DO Primary Care Provider [phone] Kapil Patel DO Unavailable [phone], Paz ANDERSONN Unavailable [phone] Encounter Details Date Type Department Care Team (Late st Contact Info) Description 11/13/2024 Abstract [facility] [address] [place] [address] Kapil Patel, DO [address] [place] [address] Social History Tobacco Use Types Packs/Day Years [...] 11/12/2024 How often do you attend [facility] or uatsdin services? More than 4 times per year [...] Date Recorded Patient Health Questionnaire-2 Score 0 11/14/2024 [facility] - Occupational Stress [...] any time in the past 12 m [facility], were you homeless or living in a jail (including now)? No 11/12/2024 Comments Unknown Sex [...] pleasure in doing things Not at all 11/14/2024 8:54 AM EDT Cesilia Matthew MA Feeling down, depressed, or hopeless Not at all 11/14/2024 8:54 AM EDT Cesilia Matthew MA Patient Health Questionnaire -2 Score 0 11/14/2024 8:54 AM EDT Cesilia Matthew MA documented as of this encounter Plan of Treatment Upcoming Encounters Date Type Department Care Team (Late st Contact Info) Description 04/29/2025 2:00 PM EST Office Visit [facility] [address] [place] [address] Cole Phillip MD [address] [facility] [address] [place], [place] [id number] 04/30/2025 2:15 PM EST Office Visit [facility] [place] [facility] [address] [place] [address] Reji De Luna, DO [address] [place] [address] documented as of this encounter Visit Diagnoses Not on filedocumented in this encounter Care Teams Nonfarm Animal Caretaker Relationship Specialty Start Date End Date Kapil Patel, DO [address] [place] [address] PCP - General Family Medicine 10/08/24 Kapil Patel, DO [address] [place] [address] PCP - Amita Roque 10/24/24Monday, FELISHA Mullen [address] [place] [address] Licensed Practical Nurse Family Medicine 11/25/2411/28 documented as of this encounter
--- OUTSIDE RECORDS SUMMARY | 2024-12-05 10:40 | XMS_ITS | Encounter Summary ---
Author Organization [facility] Address [address] [place] [address] Care Team Providers Care Tag Writer Name Role Phone Kami Olvera MD Primary Care Provider [phone] Kapil Patel DO Primary Care Provider + [phone] Kapil Patel DO Unavailable [phone] Monday, Paz INFORMATICS PHARMACIST Unavailable [phone] Encounter Details Date Type Department Care Team (Late st Contact Info) Description 09/27/2024 Abstract [facility] [address] [place] [address] Pérez Deleon DPM [address] [facility] 5 [place] [address] Social History Tobacco Use Types [...] 2:00 PM EST Office Visit [facility] [address] [facility] 310 [place] [address] Cole Phillip MD [address] [facility] 111 [place] [address] 04/30/2025 2:15 PM EST Office Visit [facility] [address] [place] [address] Reji De Luna, DO [address] [place] [address] documented as of this encounter Visit Diagnoses Not on filedocumented in this encounter Care Teams Tag Writer Relationship Specialty Start Date End Date Kami Olvera MD [address] [place], [place] [address] PCP - General Family Medicine 07/26/22 10/07/24 Kapil Patel DO [address] [facility] 230 [place] [address] PCP - General Family Medicine 10/08/24 Kapil Patel DO [address] [facility] [place] [address] PCP - [facility] 10/24/24Monday, FELISHA Mullen [address] [place] [address] Licensed Practical Nurse Family Medicine 11/25/2411/28 documented as of this encounter
--- OUTSIDE RECORDS SUMMARY | 2024-12-05 10:40 | XMS_ITS | Encounter Summary ---
Author Organization [facility] Address [address] [place] [address] Care Team Providers Care Consumer Lender Name Role Phone Kami Olvera MD Primary Care Provider [phone] Jazzy Dunn RN Unavailable [phone] David House MD Unavailable [phone] Odette Lopez PA-C Unavailable [phone] Rubens Singh MD Unavailable [phone] Source Comments In the event this information is protected by the Federal Confidentiality of Alcohol and Drug AbusePatient Records regulations: The Federal rules restrict any use of the information to criminally investigate or prosecute any alcohol or drug abuse patient.[facility] Encounter Details Date Type Department Care Team (Late st Contact Info) Description 01/19/2021 Get Medical Advice BMI [facility] REJ [address] [place], [place] [phone] [place] [address] [place] [place], [place] [phone] RE: Visit Follow Up Question Social History [...] N ot on file 02/23/2020 Data from: https://www.neighborhoodatlas.medicine.[facility].edu/. Last address used for calculation Not [...] documented as of this encounter Care Teams Consumer Lender Relationship Specialty Start Date End Date Kami Olvera MD [address] [address] PCP - General Family Medicine 02/01/17 Jazzy Dunn RN [address] [place] [address] [place] [address] Specialty Dental Technician Apprentice Hematology/Oncology 07/27/21 04/30/23 David House MD [address] [place] [address] [place] [address] Physician Hematology/Oncology 07/27/21 Odette Lopez PAPonchoC [address] [place] [address] [place] [address] Physician Investment Accounting Clerk Hematology/Oncology 07/27/21 Rubens Singh MD [address] [place] [address] [place] [address] Physician Hematology/Oncology 10/08/21 Fran [facility] Palliative Medicine Provider 08/30/21 documented as of this encounter
--- OUTSIDE RECORDS SUMMARY | 2024-12-05 10:40 | XMS_ITS | Encounter Summary ---
Author Organization [facility] Address [address] [place] [address] Care Team Providers Care Eyelet Row Marker Name Role Phone Kami Olvera MD Primary Care Provider [phone] Jazzy Dunn RN Unavailable [phone] David House MD Unavailable [phone] Odette Lopez PA-C Unavailable [phone] Rubens Singh MD Unavailable [phone] Source Comments In the event this information is protected by the Federal Confidentiality of Alcohol and Drug AbusePatient Records regulations: The Federal rules restrict any use of the information to criminally investigate or prosecute any alcohol or drug abuse patient.[facility] Encounter Details Date Type Department Care Team (Late st Contact Info) Description 01/21/2021 Get Medical Advice BMI [facility] REJ [address] [place], [place] [phone] [place] [address] [address] [place], [place] [address] RE: Visit Follow Up Question Social History [...] N ot on file 02/23/2020 Data from: https://www.neighborhoodatlas.medicine.[facility].edu/. Last address used for calculation Not [...] documented as of this encounter Care Teams Eyelet Row Marker Relationship Specialty Start Date End Date Kami Olvera MD [address] [place] [address] PCP - General Family Medicine 02/01/17 Jazzy Dunn RN [address] [place] [address] [place] [address] Specialty International Trade Analyst Hematology/Oncology 07/27/21 04/30/23 David House MD [address] [place] [address] [place] [address] Physician Hematology/Oncology 07/27/21 Odette Lopez PAPonchoC [address] [place] [address] [place] [address] Physician Strand Buncher Fine Wire Hematology/Oncology 07/27/21 Rubens Singh MD [address] [place] [address] [place] [address] Physician Hematology/Oncology 10/08/21 Fran [facility] Palliative Medicine Provider 08/30/21 documented as of this encounter
--- OUTSIDE RECORDS SUMMARY | 2024-12-05 10:40 | XMS_ITS | Encounter Summary ---
Author Organization [facility] Address [address] [place] [address] Care Team Providers Care General Freight Agent Name Role Phone Kami Olvera MD Primary Care Provider [phone] Jazzy Dunn RN Unavailable [phone] David House MD Unavailable [phone] Odette Lopez PA-C Unavailable [phone] Rubens Singh MD Unavailable [phone] Source Comments In the event this information is protected by the Federal Confidentiality of Alcohol and Drug AbusePatient Records regulations: The Federal rules restrict any use of the information to criminally investigate or prosecute any alcohol or drug abuse patient.[facility] Encounter Details Date Type Department Care Team (Late st Contact Info) Description 02/01/2021 Get Medical Advice BMI [facility] REJ [address] [place], [place] [phone] [place] [address] [address] [place], [place] [phone] Update Social History Tobacco Use Types Packs/Day [...] N ot on file 02/23/2020 Data from: https://www.neighborhoodatlas.medicine.[facility].edu/. Last address used for calculation [...] documented as of this encounter Care Teams General Freight Agent Relationship Specialty Start Date End Date Kami Olvera MD [address] [place] [address] PCP - General Family Medicine 02/01/17 Jazzy Dunn RN [address] [place] [address] Specialty Frame Wirer Hematology/Oncology 07/27/21 04/30/23 David House MD [address] [place] [address] Physician Hematology/Oncology 07/27/21 Odette Lopez PA-C [address] [place] [address] [place] [address] Physician Match Up Worker Hematology/Oncology 07/27/21 Rubens Singh MD [address] [place] [address] Physician Hematology/Oncology 10/08/21 Fran [facility] Palliative Medicine Provider 08/30/21 documented as of this encounter
--- OUTSIDE RECORDS SUMMARY | 2024-12-05 10:40 | XMS_ITS | Encounter Summary ---
Author Organization [facility] Address [address] [place] [address] Care Team Providers Care Body Shop Estimator Name Role Phone Kami Olvera MD Primary Care Provider [phone] PetKapil looney DO Primary Care Provider + [phone] Kapil Patel DO Unavailable [phone] Monday, Paz PRESALES ENGINEER Unavailable [phone] Encounter Details Date Type Department Care Team (Late st Contact Info) Description 10/28/2023 Abstract [facility] Family Medicine [address] [place] [address] Kami Olvera MD [address] [place], [place] [phone] Social History Tobacco Use Types Packs/Day Years [...] 2:00 PM EST Office Visit [facility] [address] [facility] 310 [place] [address] Cole Phillip MD [address] [facility] [address] [place] [address] 04/30/2025 2:15 PM EST Office Visit [facility] [place] [facility] [address] [place] [address] Reji De Luna, DO [address] [place] [address] documented as of this encounter Visit Diagnoses Not on filedocumented in this encounter Care Teams Body Shop Estimator Relationship Specialty Start Date End Date Kami Olvera MD [address] [place], [place] [address] PCP - General Family Medicine 07/26/22 10/07/24 Kapil Patel DO [address] [place] [address] PCP - General Family Medicine 10/08/24 Kapil Patel DO [address] [place] [address] PCP - Amita Roque 10/24/24Monday, FELISHA Mullen [address] [place] [address] Licensed Practical Nurse Family Medicine 11/25/2411/28 documented as of this encounter
--- OUTSIDE RECORDS SUMMARY | 2024-12-05 10:40 | XMS_ITS | Encounter Summary ---
Author Organization [facility] Address [address] [place] [address] Care Team Providers Care Radio Frequency Technician Name Role Phone Kami Olvera MD Primary Care Provider [phone] Jazzy Dunn RN Unavailable [phone] David House MD Unavailable [phone] Odette Lopez PA-C Unavailable [phone] Rubens Singh MD Unavailable [phone] Source Comments In the event this information is protected by the Federal Confidentiality of Alcohol and Drug AbusePatient Records regulations: The Federal rules restrict any use of the information to criminally investigate or prosecute any alcohol or drug abuse patient.[facility] Encounter Details Date Type Department Care Team (Late st Contact Info) Description 07/29/2021 Patient Msg Nutrition Therapy [address] [place] [address] [place] [address] Provider, Ccf Tube Feeding Social History [...] ot on file 02/23/2020 Data from: https://www.neighborhoodatlas.medicine.[facility].edu/. Last address used for calculation [...] Date Author No 06/23/2021 1:25 PM EDT aSrah Hill RN documented in this encounter Plan of Treatment Not on file documented as of this encounter Visit Diagnoses Not on filedocumented in this encounter Additional Health Concerns Infection Onset Date Last Indicated Resolved Time COVID-19 Rule-Out 09/06/2021 09/06/2021 09/06/2021 6:38 AM EDT documented as of this encounter Care Teams Radio Frequency Technician Relationship Specialty Start Date End Date Kami Olvera MD [address] [facility] [place] [address] PCP - General Family Medicine 02/01/17 Jazzy Dunn RN [address] [facility] [place] [address] Specialty Floriculturist Hematology/Oncology 07/27/21 04/30/23 David House MD [address] [place] [address] [place] [address] Physician Hematology/Oncology 07/27/21 Odette Lopez PA-C [address] [facility] [place] [address] Physician Dairy Husbandry Teacher Hematology/Oncology 07/27/21 Rubens Singh MD [address] [place] [address] Physician Hematology/Oncology 10/08/21 Fran [facility] Palliative Medicine Provider 08/30/21 documented as of this encounter
--- OUTSIDE RECORDS SUMMARY | 2024-12-05 10:41 | XMS_ITS | Encounter Summary ---
Author Organization [facility] Address [address] [place] [address] Care Team Providers Care Electronic Publishing Specialist Name Role Phone Kapil Patel DO Primary Care Provider [phone] Kapil Patel DO Unavailable [phone] Encounter Details Date Type Department Care Team ([facility] st Contact Info) Description 11/29/2024 External Result Encounter [facility] External Department Unsolicited Marcelle Ryan MD [address] [place] [address] Social History Tobacco Use Types [...] How often do you attend chur or religion services? More than 4 times per year 11/12/2024 Do you belong to any clubs o r organizations such as mormon groups, unions, fraternal or athletic groups, or [...] Recorded Patient Health Questionnaire-2 Score 0 11/22/2024 [facility] Questionnaire Answer Date [...] any time in the past [address] [facility], were you homeless or living in a halfway (including now)? No 11/12/2024 Comments Unknown Sex [...] [place] [facility] [address] [facility] [address] [place] [address] Cole Phillip MD [address] [facility] [address] [place] [address] 04/30/2025 2:15 PM EST Office Visit [facility] [address] [place] [address] Reji De Luna W, DO [address] [place] [address] documented as of this encounter Procedures Procedure Name Priority Date/Time Associated Diagnosis Comments VIT. B12/FOLATE PROFILE Routine 11/29/2024 8:50 AM EDT IRON AND TOTAL IRON BINDING CAPACITY Routine 11/29/2024 8:50 AM EDT TSH Routine 11/29/2024 8:50 AM EDT T4, FREE Routine 11/29/2024 8:50 AM EDT LD Routine 11/29/2024 8:50 AM EDT FERRITIN Routine 11/29/2024 8:50 AM EDT documented in this encounter Results * VIT. B12/FOLATE PROFILE (11/29/2024 8:50 AM EDT) VITAMIN B12 312 180 - 914 pg/mL 11/29/2024 11:10 AM EDT [facility] FOLATE 9.3 >5.9 ng/mL 11/29/2024 11:08 AM EDT [facility] Comment: Folate reference range: >5.9 ng/ml The WHO technical consultation on folate and vitamin b12 deficiencies has determined that folate concentrations less than 4 ng/ml are considered deficient. Other Topography unknown / Unknown 11/29/2024 8:50 AM EDT 11/29/2024 8:54 AM EDT us Marcelle Ryan MD LAB BLOOD ORDERABLES Final Resul t Performing Organization Address City/[facility]/ZIP Co de Phone Number [address] [address], [facility] [address] [place] [address] * Ferritin (11/29/2024 8:50 AM EDT) FERRITIN 29.9 11.0 - 306.8 ng/mL 11/29/2024 11:05 AM EDT [facility] Other Topography unknown / Unknown 11/29/2024 8:50 AM EDT 11/29/2024 8:54 AM EDT us Marcelle Ryan MD LAB BLOOD ORDERABLES Final Resul t [address] [address], [facility] [address] [place] [address] * T4, free (11/29/2024 8:50 AM EDT) FREE T4 (FREE THYROXINE) 0.62 0.61 - 1.12 ng/dL 11/29/2024 11:00 AM EDT [facility] Other Topography unknown / Unknown 11/29/2024 8:50 AM EDT 11/29/2024 8:54 AM EDT us Marcelle Ryan MD LAB BLOOD ORDERABLES Final Resul t Performing Organization Address City/[facility] Co de Phone Number [address] [address], [address] [address] * (ABNORMAL) TSH (11/29/2024 8:50 AM EDT) THYROID STIMULATING HORMONE 0.33(L) 0.45 - 5.33 u[iU]/mL 11/29/2024 10:59 AM EDT [facility] Other Topography unknown / Unknown 11/29/2024 8:50 AM EDT 11/29/2024 8:54 AM EDT us Marcelle Ryan MD LAB BLOOD ORDERABLES Final Resul t Performing Organization Address City/[facility]/ZIP Co de Phone Number [address] [address], [facility] [address] [place] [address] * (ABNORMAL) Iron and TIBC (11/29/2024 8:50 AM EDT) IRON 106 50 - 212 ug/dL 11/29/2024 10:44 AM EDT [facility] TOTAL IRON BINDING CAPACITY 246(L) 255 - 450 ug/dL 11/29/2024 10:44 AM EDT [facility] % IRON SATURATION 43.1 20 - 50 % 11/29/2024 10:44 AM EDT [facility] TRANSFERRIN 176(L) 203 - 362 mg/dL 11/29/2024 10:44 AM EDT [facility] Other Topography unknown / Unknown 11/29/2024 8:50 AM EDT 11/29/2024 8:54 AM EDT us Marcelle Ryan MD LAB BLOOD ORDERABLES Final Resul t Performing Organization Address City/[facility]/ZIP Co de Phone Number [address] [address], [facility] [address] [place] [address] * Lactate dehydrogenase (11/29/2024 8:50 AM EDT) LDH LACTATE DEHYDROGENASE 143 140 - 271 U/L 11/29/2024 10:44 AM EDT [facility] Other Topography unknown / Unknown 11/29/2024 8:50 AM EDT 11/29/2024 8:54 AM EDT us Marcelle Ryan MD LAB BLOOD ORDERABLES Final Resul t Performing Organization Address [facility] Co de Phone Number [address] [address], [facility] [address] [place] [address] documented in this encounter Visit Diagnoses Not on filedocumented in this encounter Care Teams Electronic Publishing Specialist Relationship Specialty Start Date End Date Kapil Patel DO [address] [place] [address] PCP - General Family Medicine 10/08/24 Kapil Patel DO [address] [place] [address] PCP - [place] [employer] 10/24/24 documented as of this encounter
--- OUTSIDE RECORDS SUMMARY | 2024-12-05 10:41 | XMS_ITS | Encounter Summary ---
Author Organization [facility] Address [address] [place] [address] Care Team Providers Care Financial Aid Advisor Name Role Phone Kami Olvera MD Primary Care Provider [phone] David House MD Unavailable [phone] Rubens Singh MD Unavailable [phone] Source Comments In the event this information is protected by the Federal Confidentiality of Alcohol and Drug AbusePatient Records regulations: The Federal rules restrict any use of the information to criminally investigate or prosecute any alcohol or drug abuse patient.[facility] Encounter Details Date Type Department Care Team (Late st Contact Info) Description 09/14/2023 Patient Msg [facility] [address] [address] [place], [place] [id number] Provider, Ccf colonoscopy prep instructions Social History [...] place to sleep or slept in a usp (including now)? No 09/08/2021 Area Deprivation Index Answer Date Juan rded National Score (1-100), lower number is lower ri sk 73 10/14/2022 State Score (1-10), lower number is lower risk 6 10/14/2022 Data from: https://www.neigh borhoodatlas.medicine.[facility].edu/. Last address used for calculation [address] [...] on filedocumented in this encounter Care Teams Financial Aid Advisor Relationship Specialty Start Date End Date Kami Olvera MD [address] [place] [address] PCP - General Family Medicine 02/01/17 David House MD [address] [place] [address] Physician Hematology/Oncology 07/27/21 Rubens Singh MD [address] [place] [address] Physician Hematology/Oncology 10/08/21 [facility] 08/30/21 documented as of this encounter
--- OUTSIDE RECORDS SUMMARY | 2024-12-05 10:41 | XMS_ITS | Encounter Summary ---
Author Organization [facility] Address [address] [place] [address] Care Team Providers Care Material Manager Name Role Phone Kami Olvera MD Primary Care Provider [phone] PetKapil looney DO Primary Care Provider + [phone] Kapil Patel DO Unavailable [phone] Monday, Paz HYDROLOGY TEACHER Unavailable [phone] Encounter Details Date Type Department Care Team (Late st Contact Info) Description 08/26/2023 Abstract [facility] Family Medicine [address] [place] [address] Kami Olvera MD [address] [place], [place] [phone] Social History Tobacco Use Types Packs/Day Years [...] 2:00 PM EST Office Visit [facility] Neurology [address] [facility] [address] [place] [address] Cole Phillip MD [address] [facility] [address] [place] [address] 04/30/2025 2:15 PM EST Office Visit [facility] [place] [facility] [address] [place] [address] Reji De Luna, DO [address] [place] [address] documented as of this encounter Visit Diagnoses Not on filedocumented in this encounter Care Teams Material Manager Relationship Specialty Start Date End Date Kami Olvera MD [address] [place], [place] [address] PCP - General Family Medicine 07/26/22 10/07/24 Kapil Patel DO [address] [place] [address] PCP - General Family Medicine 10/08/24 Kapil Patel DO [address] [place] [address] PCP - Amita Roque 10/24/24Monday, FELISHA Mullen [address] [place] [address] Licensed Practical Nurse Family Medicine 11/25/2411/28 documented as of this encounter
--- OUTSIDE RECORDS SUMMARY | 2024-12-05 10:41 | XMS_ITS | Encounter Summary ---
Author Organization [facility] Address [address] [place] [address] Care Team Providers Care Credit Operations Specialist Name Role Phone Kami Olvera MD Primary Care Provider [phone] Jazzy Dunn RN Unavailable [phone] David House MD Unavailable [phone] Odette Lopez PA-C Unavailable [phone] Rubens Singh MD Unavailable [phone] Source Comments In the event this information is protected by the Federal Confidentiality of Alcohol and Drug AbusePatient Records regulations: The Federal rules restrict any use of the information to criminally investigate or prosecute any alcohol or drug abuse patient.[facility] Encounter Details Date Type Department Care Team (Late st Contact Info) Description 03/11/2021 Get Medical Advice [facility] REJ [address] [place], [place] [phone] [place] [address] [address] [place], [place] [phone] Work Release Social History Tobacco Use Types [...] Data from: https://www.neighborhoodatlas.medicine.[facility].edu/. Last address used for calculation Not on [...] documented as of this encounter Care Teams Credit Operations Specialist Relationship Specialty Start Date End Date Kami Ovlera MD [address] [facility] [place] [address] PCP - General Family Medicine 02/01/17 Jazzy Dunn RN [address] [place] [address] Specialty Active Directory Engineer Hematology/Oncology 07/27/21 04/30/23 David House MD [address] [place] [address] Physician Hematology/Oncology 07/27/21 Odette Lopez PAPonchoC [address] [place] [address] [place] [address] Physician Rug Repairer Hematology/Oncology 07/27/21 Rubens Singh MD [address] [place] [address] [place] [address] Physician Hematology/Oncology 10/08/21 Fran [facility] Palliative Medicine Provider 08/30/21 documented as of this encounter
--- OUTSIDE RECORDS SUMMARY | 2024-12-05 10:41 | XMS_ITS | Encounter Summary ---
Author Organization [facility] Address [address] [place] [address] Care Team Providers Care Radiologist Physician Name Role Phone Kami Olvera MD Primary Care Provider [phone] Jazzy Dunn RN Unavailable [phone] David House MD Unavailable [phone] Odette Lopez PA-C Unavailable [phone] Rubens Singh MD Unavailable [phone] Source Comments In the event this information is protected by the Federal Confidentiality of Alcohol and Drug AbusePatient Records regulations: The Federal rules restrict any use of the information to criminally investigate or prosecute any alcohol or drug abuse patient.[facility] Encounter Details Date Type Department Care Team (Late st Contact Info) Description 03/06/2021 Get Medical Advice BMI [facility] REJ [address] [place], [place] [phone] [place] [address] [address] [place], [place] [phone] Clogged J Tube Social History Tobacco Use [...] documented as of this encounter Care Teams Radiologist Physician Relationship Specialty Start Date End Date Kami Olvera MD [address] [place] [address] PCP - General Family Medicine 02/01/17 Jazzy Dunn RN [address] [place] [address] Specialty Ice Maker Hematology/Oncology 07/27/21 04/30/23 David House MD [address] [place] [address] Physician Hematology/Oncology 07/27/21 Odette Lopez PAPonchoC [address] [place] [address] [place] [address] Physician Service And Repair Supervisor Hematology/Oncology 07/27/21 Rubens Singh MD [address] [place] [address] [place] [address] Physician Hematology/Oncology 10/08/21 Fran [facility] Palliative Medicine Provider 08/30/21 documented as of this encounter
--- OUTSIDE RECORDS SUMMARY | 2024-12-05 10:41 | XMS_ITS ---
Author Organization [facility] Address [address] [place] [address] Care Team Providers Care Lock Maintenance Supervisor Name Role Phone Kapil Patel DO Primary Care Provider [phone] Kapil Patel DO Unavailable [phone] Emergency Department Transitional Care Management (TCM) Status:Closed (Closed) Start date:12/03/2024 Enrollment date:12/04/2024 Enrollment reason:Identified using hospital discharge data End date:12/04/2024 Close reason:Assistance not needed Overview Discharged from [facility] ER on 12/03. Please contact within 2 days of discharge for ER JAME and schedule a follow-up appointment if needed. Continued Care and Services Coordination
--- OUTSIDE RECORDS SUMMARY | 2024-12-05 10:41 | XMS_ITS | Encounter Summary ---
Author Organization [facility] Address [address] [place] [address] Care Team Providers Care Facility Practice Specialist Name Role Phone Kapil Patel DO Primary Care Provider [phone] Kapil Patel DO Unavailable [phone] Encounter Details Date Type Department Care Team ([facility] st Contact Info) Description 11/29/2024 External Result Encounter [facility] External Department Unsolicited Marcelle Ryan MD [address] [place] [address] Social History Tobacco Use Types [...] How often do you attend chur or restorationist services? More than 4 times per year 11/12/2024 Do you belong to any clubs o r organizations such as sikhism groups, unions, fraternal or athletic groups, or [...] Recorded Patient Health Questionnaire-2 Score 0 11/22/2024 [facility] Questionnaire Answer Date [...] any time in the past 12 m [facility], were you homeless or living [...] 2:00 PM EST Office Visit [facility] [place] [facility] [address] [facility] [address] [place] [address] Cole Phillip MD [address] [facility] [address] [place] [address] 04/30/2025 2:15 PM EST Office Visit [facility] [address] [place] [address] Reji De Luna W, DO [address] [place] [address] documented as of this encounter Procedures Procedure Name Priority Date/Time Associated Diagnosis Comments CT SOFT TISSUE NECK W IV CONTRAST 11/29/2024 1:16 PM EDT documented in this encounter Results * CT soft tissue neck w IV contrast (11/29/2024 1:16 PM EDT) Anatomical Region Laterality Modality Head, Neck Computed Tomogra phy 11/29/2024 1:16 PM EDT Impressions 11/29/2024 1:[address] soft tissue neck. No pathologically enlarged lymph nodes. Impression dictated by: Jesus Ledesma Jr., D.OGhassan 11/29/2024 1:18 PM Dictation Location: [id number]-[id number] Transcribed By: PWS 11/29/248 Dictated By: Jesus Ledesma Jr, DO 11/29/24 1316 Signed By: <Electronically signed by Jesus Ledesma Jr, DO in OV> 11/29/24 1318 Narrative 11/29/2024 1:20 PM EDT [facility] [place] [address] [place] Scan Report Signed Patient: Negro Stacy MR#: [id number] 46 : 1995 Acct:[id number] Age/Sex: 29 / F ADM Date: 11/29/24 Loc: Room: Type: [facility] Attending Dr: Marcelle Ryan MD Copies to: [...] w con Procedure Note Jesus Ledesma Jr., - 11/29/2024 [facility] [place] [address] [place] [address] CT Scan Report Signed Patient: Negro tSacy KMR#: [id number] : 1995Acct:[id number] Age/Sex: 29 / FADM Date: 11/29/24 Loc: Room:Type: [facility] Attending Dr: Marcelle Ryan MD Copies to: [...] Jr., D.O. 11/29/2024 1:18 PM Dictation Location: [place] [address] Transcribed By: [facility] 11/29/24 1318 Dictated By: Jesus Ledesma Jr, DO 11/29/24 1316 Signed By: <Electronically signed by Jesus Ledesma Jr, DO inOV> 11/29/24 1318 us Marcelle Ryan MD IMG CT PROCEDURES Final Result documented in this encounter Visit Diagnoses Not on filedocumented in this encounter Care Teams Facility Practice Specialist Relationship Specialty Start Date End Date Kapil Patel DO [address] [place] [address] PCP - General Family Medicine 10/08/24 Kapil Patel DO [address] [place] [address] PCP - Amita Roque 10/24/24 documented as of this encounter
--- OUTSIDE RECORDS SUMMARY | 2024-12-05 10:41 | XMS_ITS ---
Author Organization [facility] Address [address] [place] [address] Care Team Providers Care Fence Post Driver Name Role Phone Kapil Patel DO Primary Care Provider [phone] Kapil Patel DO Unavailable [phone] Inpatient Discharge Transitional Care Management (TCM) Status:Closed (Closed) Start date:11/20/2024 Enrollment date:11/21/2024 Enrollment reason:Identified using hospital discharge data End date:11/22/2024 Close reason:Unable to reach patient Overview Patient discharged from [facility] on 11/20. Please contact for hospital JAME and schedule follow-up appointment within 7-14 days. <November 22, 2024, 14:19 - Magda Barcenas LPN> Pt seen in office today. Unable to complete jame Continued Care and Services Coordination
--- OUTSIDE RECORDS SUMMARY | 2024-12-05 10:41 | XMS_ITS | Encounter Summary ---
Author Organization [facility] Address [address] [place] [address] Care Team Providers Care Account Liaison Name Role Phone Kami Olvera MD Primary Care Provider [phone] David House MD Unavailable [phone] Rubens Singh MD Unavailable [phone] Source Comments In the event this information is protected by the Federal Confidentiality of Alcohol and Drug AbusePatient Records regulations: The Federal rules restrict any use of the information to criminally investigate or prosecute any alcohol or drug abuse patient.[facility] Encounter Details Date Type Department Care Team (Late st Contact Info) Description 08/16/2023 Patient Msg Gastroenterology [address] [place], [place] [phone] Theresa Rodríguez APRN.BENCH PRESS OPERATOR [address] [place] [address] labs Social History Tobacco Use Types Packs/Day [...] lower risk 6 10/14/2022 Data from: https://www.neigh borhoodatlas.medicine.[facility].edu/. Last address used for calculation [address] [...] on filedocumented in this encounter Care Teams Account Liaison Relationship Specialty Start Date End Date Kami Olvera MD [address] [place] [address] PCP - General Family Medicine 02/01/17 David House MD [address] [place] [address] Physician Hematology/Oncology 07/27/21 Rubens Singh MD [address] [place] [address] Physician Hematology/Oncology 10/08/21 [facility] Palliative Medicine Provider 08/30/21 documented as of this encounter
--- OUTSIDE RECORDS SUMMARY | 2024-12-05 10:41 | XMS_ITS | Encounter Summary ---
Author Organization [facility] Address [address] [place] [address] Care Team Providers Care Bender Machine Name Role Phone Kami Olvera MD Primary Care Provider [phone] David House MD Unavailable [phone] Rubens Singh MD Unavailable [phone] Source Comments In the event this information is protected by the Federal Confidentiality of Alcohol and Drug AbusePatient Records regulations: The Federal rules restrict any use of the information to criminally investigate or prosecute any alcohol or drug abuse patient.[facility] Encounter Details Date Type Department Care Team (Late st Contact Info) Description 09/12/2023 Get Medical Advice Gastroenterology [address] [place] [address] Theresa Rodríguez APRN.TANK STORAGE SUPERVISOR [address] [place] [address] Continuing Issue Social History Tobacco Use Types [...] place to sleep or slept in a halfway (including now)? No 09/08/2021 Area Deprivation Index Answer Date Juan rded National Score (1-100), lower number is lower ri sk 73 10/14/2022 State Score (1-10), lower number is lower risk 6 10/14/2022 Data from: https://www.neigh borhoodatlas.medicine.[facility].edu/. Last address used for [...] Patient Instructions * Patient Instructions* Theresa Rodríguez APRN.TANK STORAGE SUPERVISOR - 09/13/2023 12:45 PM EDT Images from [...] If you do not have a responsible sprinkler truck driver (family member or friend) withyou to take you home, your exam cannot be done with sedation and will be cancelled. Please bring a list of all of your current medications, including any Jxoo-pfv-Jzdjktx medications with you. Medications If you take [...] and rescheduled her colonoscopy to 09/27/23 at [facility] per below. Sent prep via my chart. documented in this encounter Plan of Treatment Not on file documented as of this encounter Visit Diagnoses Diagnosis Weight loss- Primary Loss of weight Generalized abdominal pain Abdominal pain, generalized documented in this encounter Care Teams Bender Machine Relationship Specialty Start Date End Date Kami Olvera MD [address] [place] [address] PCP - General Family Medicine 02/01/17 David House MD [address] [place] [address] Physician Hematology/Oncology 07/27/21 Rubens Singh MD [address] [place] [address] Physician Hematology/Oncology 10/08/21 [facility] Provider 08/30/21 documented as of this encounter
--- OUTSIDE RECORDS SUMMARY | 2024-12-05 10:41 | XMS_ITS ---
Author Organization [facility] Address [address] [place] [address] Care Team Providers Care Automotive Buyer Name Role Phone Kapil Patel DO Primary Care Provider [phone] Kapil Patel DO Unavailable [phone] Chronic Care Management (CCM) Status:Closed (Closed) Start date:11/25/2024 Enrollment reason:Identified as high-risk End date:11/28/2024 Close reason:Assistance not needed Overview <November 28, 2024, 11:02 - Pazmonday, PICKLE SORTER> pt is not interested in care management at this time. Continued Care and Services Coordination
--- OUTSIDE RECORDS SUMMARY | 2024-12-05 10:41 | XMS_ITS | Encounter Summary ---
Author Organization [facility] Address [address] [place] [address] Care Team Providers Care Tree Surgeon Name Role Phone Kapil Patel DO Primary Care Provider [phone] Kapil Patel DO Unavailable [phone] Encounter Details Date Type Department Care Team ([facility] st Contact Info) Description 11/29/2024 External Result Encounter [facility] External Department Unsolicited Marcelle Ryan MD [address] [place] [address] Social History Tobacco Use Types [...] any clubs o r organizations such as oriental orthodox groups, unions, fraternal or athletic groups, or [...] Recorded Patient Health Questionnaire-2 Score 0 11/22/2024 [facility] Occupational Stress Questionnaire Answer Date Recorded [...] time in the past 12 m [facility], were you homeless or living in a assisted (including now)? No 11/12/2024 Comments Unknown Sex [...] [place] [facility] [address] [facility] [address] [place] [address] Cole Phillip MD [address] [facility] [address] [place] [address] 04/30/2025 2:15 PM EST Office Visit [facility] Otolaryngology [address] [place] [address] Reji De Luna W, DO [address] [place] [address] documented as of this encounter Procedures Procedure Name Priority Date/Time Associated Diagnosis Comments COPPER Routine 11/29/2024 8:50 AM EDT documented in this encounter Results * Copper, serum (11/29/2024 8:50 AM EDT) COPPER 65 80 - 158 ug/dL 12/03/2024 8:36 AM EDT [facility] Comment: This test was developed and its performance characteristics determined by [facility]. It has not been cleared or approved by the Food and Drug Administration. Detection Limit = 5 Performed at: [facility] [address] [id number] Ethnology Professor: Carlos Guerra MD, Phone: [phone] Other Topography unknown / Unknown 11/29/2024 8:50 AM EDT 11/29/2024 8:54 AM EDT us Marcelle Ryan MD LAB BLOOD ORDERABLES Final Resul t [facility] [address] [place] [address], documented in this encounter Visit Diagnoses Not on filedocumented in this encounter Care Teams Tree Surgeon Relationship Specialty Start Date End Date Kapil Patel DO [address] [place] [address] PCP - General Family Medicine 10/08/24 Kapil Patel DO [address] [place] [address] PCP - [place] Commercial 10/24/24 documented as of this encounter
--- OUTSIDE RECORDS SUMMARY | 2024-12-05 10:41 | XMS_ITS | Encounter Summary ---
Author Organization [facility] Address [address] [place] [address] Care Team Providers Care Negotiator Name Role Phone Kapil Patel DO Primary Care Provider + [phone] Kapil Patel DO Unavailable [phone] Monday, Paz DIRECTOR CARDIOLOGY Unavailable [phone] Encounter Details Date Type Department Care Team (Late st Contact Info) Description 11/28/2024 Patient Outreach [facility] [address] [facility] [place] [address] Monday, Paz, DIRECTOR CARDIOLOGY [address] [place] [address] Social History Tobacco Use Types Packs/Day Years [...] week 11/12/2024 How often do you attend [facility] or confucianist services? More than 4 times per year [...] Recorded Patient Health Questionnaire-2 Score 0 11/22/2024 [facility] - Occupational [...] any time in the past 12 m onths, were you homeless or living in a mcfp (including now)? No 11/12/2024 Comments Unknown Sex and Gender Information Value Date Recorded Sex Assigned at Not on file Legal Sex Female 6:39 PM EDT Gender Identity Female 06/01/2022 6:39 PM EDT Sexual Orientation Not on file documented as of this encounter Progress Notes * Paz Garcia LPN - 11/28/2024 10:56 AM EDT Reviewed pts chart and then reached out to pt today. I introduce myself to her and explain the purpose of my call. She graciously listens to my explanation and asks if her insurance will be affected by this? I let her know that the insurance is starting to take note of how beneficial care management is and they prefer our involvement. She is not interested at this time. I do let her know if she should ever change in mind in the future, she can call the office and they are aware of the care teamand can send us a message. She voices understanding to this and appreciation for reaching out. I thank her for her time and allowing me to at least get the info to her. documented in this encounter Plan of Treatment Upcoming Encounters Date Type Department Care Team (Late st Contact Info) Description 04/29/2025 2:00 PM EST [facility] [address] [place] [address] Cole Phillip MD [address] [facility] [address] [place] [address] 04/30/2025 2:15 PM EST Office Visit [facility] [place] [facility] [address] [place] [address] Reji De Luna, DO [address] [address] documented as of this encounter Visit Diagnoses Diagnosis Migraine without aura, intractable, with status migrainosus- Primary Recurrent major depressive disorder, in partial remission documented in this encounter Care Teams Negotiator Relationship Specialty Start Date End Date Kapil Patel DO [address] [facility] [address] [place] [address] PCP - General Family Medicine 10/08/24 Kapil Patel DO [address] [facility] [address] [place] [address] PCP - Amita Roque 10/24/24Monday, FELISHA Mullen 112 [facility] [address] [place] [address] Licensed Practical Nurse Family Medicine 11/25/2411/28 documented as of this encounter
--- OUTSIDE RECORDS SUMMARY | 2024-12-05 10:41 | XMS_ITS | Encounter Summary ---
Author Organization [facility] Address [address] [place] [address] Care Team Providers Care Supervisor Fruit Grading Name Role Phone Kami Olvera MD Primary Care Provider [phone] Jazzy Dunn RN Unavailable [phone] David House MD Unavailable [phone] Odette Lopez PA-C Unavailable [phone] Rubens Singh MD Unavailable [phone] Source Comments In the event this information is protected by the Federal Confidentiality of Alcohol and Drug AbusePatient Records regulations: The Federal rules restrict any use of the information to criminally investigate or prosecute any alcohol or drug abuse patient.[facility] Encounter Details Date Type Department Care Team (Late st Contact Info) Description 03/11/2021 Get Medical Advice BMI [facility] REJ [address] [place], [place] [phone] [place] [address] [address] [place], [place] [phone] Work Release Social History Tobacco Use Types [...] N ot on file 02/23/2020 Data from: https://www.neighborhoodatlas.medicine.[facility].edu/. Last address used for calculation [...] documented as of this encounter Care Teams Supervisor Fruit Grading Relationship Specialty Start Date End Date Kami Olvear MD [address] [place] [address] PCP - General Family Medicine 02/01/17 Jazzy Dunn RN [address] [place] [address] Specialty Quenching Machine Operator Hematology/Oncology 07/27/21 04/30/23 David House MD [address] [place] [address] Physician Hematology/Oncology 07/27/21 Odette Lopez PAPonchoC [address] [place] [address] [place] [address] Physician Recovery Unit Operator Hematology/Oncology 07/27/21 Rubens Singh MD [address] [place] [address] [place] [address] Physician Hematology/Oncology 10/08/21 Fran [facility] Palliative Medicine Provider 08/30/21 documented as of this encounter
--- OUTSIDE RECORDS SUMMARY | 2024-12-05 10:41 | XMS_ITS | Encounter Summary ---
Author Organization [facility] Address [address] [place] [address] Care Team Providers Care Attorney Lawyer Name Role Phone Kapil Patel DO Primary Care Provider [phone] Kapil Patel DO Unavailable [phone] Encounter Details Date Type Department Care Team (Late st Contact Info) Description 12/02/2024 Telephone [facility] [address] [facility] [address] [place] [address] Kapil Patel, DO [address] [place] [address] Social History Tobacco Use Types Packs/Day Years [...] week 11/12/2024 How often do you attend [facility] or congregational services? More than 4 times per year 11/12/2024 Do you belong to any clubs o r organizations such as shinto groups, unions, fraternal or athletic groups, or [...] Patient Health Questionnaire-2 Score 0 11/22/2024 [facility] Questionnaire Answer [...] any time in the past 12 m [facility], were you homeless or living in a retirement (including now)? No 11/12/2024 Comments Unknown Sex and Gender Information Value Date Recorded Sex Assigned at Not on file Legal Sex Female 6:39 PM EDT Gender Identity Female 06/01/2022 6:39 PM EDT Sexual Orientation Not on file documented as of this encounter Miscellaneous Notes * Telephone Encounter - Kaipl Patel DO - 12/02/2024 1:17 PM EDT Iron normal. Liver enzymes/test normal Kidney function normal range. Normal pancreatic markers. Neg stool studies documented in this encounter Plan of Treatment Upcoming Encounters Date Type Department Care Team (Late st Contact Info) Description 04/29/2025 2:00 PM EST Office Visit [facility] [address] [place] [address] Cole Phillpi MD [address] [facility] [address] [place] [address] 04/30/2025 2:15 PM EST Office Visit [facility] [address] [place] [address] Reji De Luna, DO [address] [place] [address] documented as of this encounter Visit Diagnoses Not on filedocumented in this encounter Care Teams Attorney Lawyer Relationship Specialty Start Date End Date Kapil Patel DO [address] [place] [address] PCP - General Family Medicine 10/08/24 Kapil Patel DO [address] [place] [address] PCP - Amita Roque 10/24/24 documented as of this encounter
--- OUTSIDE RECORDS SUMMARY | 2024-12-05 10:41 | XMS_ITS | Encounter Summary ---
Author Organization [facility] Address [address] [place] [address] Care Team Providers Care Cleaner And Presser Name Role Phone Kapil Patel DO Primary Care Provider +- [phone] Kapil Patel DO Unavailable [phone], Paz ANDERSONN Unavailable [phone] Encounter Details Date Type Department Care Team (Late st Contact Info) Description 11/19/2024 Abstract [facility] [address] [place] [address] Kapil Patel, DO [address] [place] [address] Social History Tobacco Use Types Packs/Day Years [...] 11/12/2024 How often do you attend [facility] or sabianism services? More than 4 times per year 11/12/2024 Do you belong to any clubs o r organizations such as buddhism groups, unions, fraternal or athletic groups, or [...] Recorded Patient Health Questionnaire-2 Score 0 11/22/2024 [facility] Occupat ional Health - Occupational Stress [...] any time in the past 12 m [facility], were you homeless or living in a chcf (including now)? No 11/12/2024 Comments Unknown Sex [...] Neurology [address] [place] [address] Cole Phillip MD [address] [facility] [address] [place] [address] 04/30/2025 2:15 PM EST Office Visit [facility] [address] [place] [address] Reji De Luna, DO [address] [place] [address] documented as of this encounter Visit Diagnoses Not on filedocumented in this encounter Care Teams Cleaner And Presser Relationship Specialty Start Date End Date Kapil Patel DO [address] [place] [address] PCP - General Family Medicine 10/08/24 Kapil Patel DO [address] [place] [address] PCP - [place] [employer] 10/24/24Monday, FELISHA Mullen [address] [place] [address] Licensed Practical Nurse Family Medicine 11/25/2411/28 documented as of this encounter
--- OUTSIDE RECORDS SUMMARY | 2024-12-05 10:41 | XMS_ITS | Encounter Summary ---
Author Organization [facility] Address [address] [place] [address] Care Team Providers Care Cartoonist Special Effects Name Role Phone JustoDevonte page Carlos Alberto RIVAS Primary Care Provider Kami Olvera MD Primary Care Provider [phone] Jazzy Dunn RN Unavailable [phone] David House MD Unavailable [phone] Odette Lopez PA-C Unavailable [phone] Rubens Singh MD Unavailable [phone] Source Comments In the event this information is protected by the Federal Confidentiality of Alcohol and Drug AbusePatient Records regulations: The Federal rules restrict any use of the information to criminally investigate or prosecute any alcohol or drug abuse patient.[facility] Encounter Details Date Type Department Care Team (Late st Contact Info) Description 04/01/2014 Patient Msg Medical Records [address] [place] [address] Provider, Ccf RE: Appointment Cancellation Request Social [...] documented as of this encounter Care Teams Cartoonist Special Effects Relationship Specialty Start Date End Date Devonte Kemp DO PCP - General Family Medicine 05/03/13 01/31/17 Kami Olvera MD [address] [place] [address] PCP - General Family Medicine 02/01/17 Jazzy Dunn RN [address] [facility] [place] [address] Specialty Oracle Brm Developer Hematology/Oncology 07/27/21 04/30/23 David House MD [address] [place] [address] [place] [address] Physician Hematology/Oncology 07/27/21 Odette Lopez, PA-C [address] [place] [address] Physician Control Operator Flow Coat Hematology/Oncology 07/27/21 Rubens Singh MD [address] [facility] [place] [address] Physician Hematology/Oncology 10/08/21 Fran [facility] Palliative Medicine Provider 08/30/21 documented as of this encounter
--- OUTSIDE RECORDS SUMMARY | 2024-12-05 10:41 | XMS_ITS | Encounter Summary ---
Author Organization [facility] Address [address] [place] [address] Care Team Providers Care Security Threat Analyst Name Role Phone Kapil Patel DO Primary Care Provider +- [phone] Kapil Patel DO Unavailable [phone], Paz ANDERSONN Unavailable [phone] Encounter Details Date Type Department Care Team (Late st Contact Info) Description 11/20/2024 Abstract [facility] [address] [facility] [address] [place] [address] Kapil Patel, DO [address] [place] [address] Social History Tobacco Use Types Packs/Day Years [...] do you attend [facility] or christianity services? More than 4 times per year 11/12/2024 Do you belong to any clubs o r organizations such as anabaptism groups, unions, fraternal or athletic groups, or [...] Recorded Patient Health Questionnaire-2 Score 0 11/22/2024 [facility] of Occupat ional Health - Occupational [...] were you homeless or living in a residential (including now)? No 11/12/2024 Comments Unknown Sex [...] Neurology [address] [place] [address] Cole Phillip MD [address] [facility] [address] [place] [address] 04/30/2025 2:15 PM EST Office Visit [facility] [address] [place] [address] Reji De Luna, DO [address] [place] [address] documented as of this encounter Visit Diagnoses Not on filedocumented in this encounter Care Teams Security Threat Analyst Relationship Specialty Start Date End Date Kapil Patel DO [address] [place] [address] PCP - General Family Medicine 10/08/24 Kapil Patel DO [address] [place] [address] PCP - [place] [employer] 10/24/24Monday, FELISHA Mullen [address] [place] [address] Licensed Practical Nurse Family Medicine 11/25/2411/28 documented as of this encounter
--- OUTSIDE RECORDS SUMMARY | 2024-12-05 10:41 | XMS_ITS | Encounter Summary ---
Author Organization [facility] Address [address] [place] [address] Care Team Providers Care Advertising Layout Worker Name Role Phone Kapil Patel DO Primary Care Provider +- [phone] Kapil Patel DO Unavailable [phone], Paz ANDERSONN Unavailable [phone] Encounter Details Date Type Department Care Team (Late st Contact Info) Description 11/19/2024 Abstract [facility] [address] [address] [place] [address] Kapil Patel, DO [address] [place] [address] Social History Tobacco Use Types Packs/Day Years [...] week 11/12/2024 How often do you attend [facility] or adventist services? More than 4 times per year 11/12/2024 Do you belong to any clubs o r organizations such as druze groups, unions, fraternal or athletic groups, or [...] Recorded Patient Health Questionnaire-2 Score 0 11/22/2024 [facility] of Occupat ional Health - [...] any time in the past 12 m [facility], were you homeless or living in a [...] Neurology [address] [place] [address] Cole Phillip MD [address] [place] [address] 04/30/2025 2:15 PM EST Office Visit [facility] [address] [place] [address] Reji De Luna, DO [address] [place] [address] documented as of this encounter Visit Diagnoses Not on filedocumented in this encounter Care Teams Advertising Layout Worker Relationship Specialty Start Date End Date Kapil Patel DO [address] [place] [address] PCP - General Family Medicine 10/08/24 Kapil Patel DO [address] [place] [address] PCP - [place] [employer] 10/24/24Monday, FELISHA Mullen [address] [place] [address] Licensed Practical Nurse Family Medicine 11/25/2411/28 documented as of this encounter
--- OUTSIDE RECORDS SUMMARY | 2024-12-05 10:41 | XMS_ITS | Encounter Summary ---
Author Organization [facility] Address [address] [place] [address] Care Team Providers Care Potato Chip Cooker Machine Name Role Phone Kapil Patel DO Primary Care Provider [phone] Kapil Patel DO Unavailable [phone] Encounter Details Date Type Department Care Team ([facility] st Contact Info) Description 11/29/2024 External Result Encounter [facility] External Department Unsolicited Marcelle Ryan MD [address] [place] [address] Social History Tobacco Use Types [...] How often do you attend [facility] or restorationism services? More than 4 times per year 11/12/2024 Do you belong to any clubs o r organizations such as buddhist groups, unions, fraternal or athletic groups, or [...] Score 0 11/22/2024 [facility] Questionnaire Answer Date [...] any time in the past 12 m [facility], were you homeless or living in a intermediate (including now)? No 11/12/2024 Comments Unknown Sex [...] [facility] [address] [facility] [address] [place] [address] Cole Phillip MD [address] [facility] [address] [place] [address] 04/30/2025 2:15 PM EST Office Visit [facility] [address] [place] [address] Reji De Luna W, DO [address] [place] [address] documented as of this encounter Procedures Procedure Name Priority Date/Time Associated Diagnosis Comments CERULOPLASMIN Routine 11/29/2024 8:50 AM EDT documented in this encounter Results * Ceruloplasmin (11/29/2024 8:50 AM EDT) CERULOPLASMIN 14.8 19.0 - 39.0 mg/dL 11/30/2024 4:36 AM EDT [facility] Comment: Performed at: - [facility] [address] [id number] Improvement Coordinator: Shiva Christopher PhD, Phone: [phone] Other Topography unknown / Unknown 11/29/2024 8:50 AM EDT 11/29/2024 8:54 AM EDT us Marcelle Ryan MD LAB BLOOD ORDERABLES Final Resul t [facility] [address] [place] [address], documented in this encounter Visit Diagnoses Not on filedocumented in this encounter Care Teams Potato Chip Cooker Machine Relationship Specialty Start Date End Date Kapil Patel DO [address] [place] [address] PCP - General Family Medicine 10/08/24 Kapil Patel DO [address] [place] [address] PCP - [place] [employer] 10/24/24 documented as of this encounter
--- OUTSIDE RECORDS SUMMARY | 2024-12-05 10:41 | XMS_ITS | Encounter Summary ---
Author Organization [facility] Address [address] [place] [address] Care Team Providers Care Manager Mutual Fund Name Role Phone Kapil Patel DO Primary Care Provider [phone] Kapil Patel DO Unavailable [phone] Encounter Details Date Type Department Care Team (Late st Contact Info) Description 12/02/2024 Refill [facility] [address] [place] [address] Kapil Patel, DO [address] [place] [address] Pancreatic insufficiency (HCC) (Primary Dx) Social History Tobacco Use Types Packs/Day Years [...] week 11/12/2024 [facility] or buddhist services? More than 4 times per year 11/12/2024 Do you belong to any clubs o r organizations such as muslim groups, unions, fraternal or athletic groups, or [...] Recorded Patient Health Questionnaire-2 Score 0 11/22/2024 [facility] - Occupational Stress Questionnaire Answer Date [...] any time in the past 12 m [facility], were you homeless or living in a alf (including now)? No 11/12/2024 Comments Unknown Sex and Gender Information Value Date Recorded Sex Assigned at Not on file Legal Sex Female 6:39 PM EDT Gender Identity Female 06/01/2022 6:39 PM EDT Sexual Orientation Not on file documented as of this encounter Miscellaneous Notes * Telephone Encounter - Kapil Patel DO - 12/02/2024 1:43 PM EDT Would refer to GI. With history of pancrease issues would trial creon which are pancreatic enzymes.Update ffice towards the end of the week. documented in this encounter Plan of Treatment Upcoming Encounters Date Type Department Care Team (Late st Contact Info) Description 04/29/2025 2:00 PM EST Office Visit [facility] [place] [facility] [address] [place] [address] Cole Phillip MD [address] [facility] [address] [place], [place] [id number] 04/30/2025 2:15 PM EST Office Visit [facility] [address] [place] [address] Reji De Luna, DO [address] [place] [address] documented as of this encounter Visit Diagnoses Diagnosis Pancreatic insufficiency (HCC)- Primary Other specified disease of pancreas documented in this encounter Care Teams Manager Mutual Fund Relationship Specialty Start Date End Date Kapil Patel DO [address] [place] [address] PCP - General Family Medicine 10/08/24 Kapil Patel DO [address] [place] [address] PCP - Amita Roque 10/24/24 documented as of this encounter
--- OUTSIDE RECORDS SUMMARY | 2024-12-05 10:41 | XMS_ITS | Encounter Summary ---
Author Organization [facility] Address [address] [place] [address] Care Team Providers Care Refrigeration Engineering Teacher Name Role Phone JustoDevonte page Carlos Alberto RIVAS Primary Care Provider Kami Olvera MD Primary Care Provider [phone] Jazzy Dunn RN Unavailable [phone] David House MD Unavailable [phone] Odette Lopez PA-C Unavailable [phone] Rubens Singh MD Unavailable [phone] Source Comments In the event this information is protected by the Federal Confidentiality of Alcohol and Drug AbusePatient Records regulations: The Federal rules restrict any use of the information to criminally investigate or prosecute any alcohol or drug abuse patient.[facility] Encounter Details Date Type Department Care Team (Late st Contact Info) Description 04/24/2014 Patient Msg Medical Records [address] [place] [address] Provider, Ccf Social History Tobacco Use Types [...] Teacher Relationship Specialty Start Date End Date JustoDevonte DO PCP - General Family Medicine 05/03/13 01/31/17 Kami Olvera MD [address] [place] [address] PCP - General Family Medicine 02/01/17 Jazzy Dunn RN [address] [facility] [place] [address] Specialty Clinical Cytogenetics Director Hematology/Oncology 07/27/21 04/30/23 David House MD [address] [place] [address] Physician Hematology/Oncology 07/27/21 Odette Lopez PAPonchoC [address] [place] [address] Physician Assembly Line Upholsterer Hematology/Oncology 07/27/21 Rubens Singh MD [address] [facility] [place] [address] Physician Hematology/Oncology 10/08/21 Fran [facility] Palliative Medicine Provider 08/30/21 documented as of this encounter
--- OUTSIDE RECORDS SUMMARY | 2024-12-05 10:41 | XMS_ITS | Encounter Summary ---
Author Organization [facility] Address [address] [place] [address] Care Team Providers Care Brake Repair Mechanic Name Role Phone Kami Olvera MD Primary Care Provider [phone] Jazzy Dunn RN Unavailable [phone] David House MD Unavailable [phone] Odette Lopez PA-C Unavailable [phone] Rubens Singh MD Unavailable [phone] Source Comments In the event this information is protected by the Federal Confidentiality of Alcohol and Drug AbusePatient Records regulations: The Federal rules restrict any use of the information to criminally investigate or prosecute any alcohol or drug abuse patient.[facility] Encounter Details Date Type Department Care Team (Latest Contact Info) Description 05/14/2021 Patient Msg [facility] [address] [place] [address] Provider, Ccf Pre Procedure Instructions Social History [...] ot on file 02/23/2020 Data from: [email or web address].[email or web address].[email or web address] Last address used for calculation [...] documented as of this encounter Care Teams Brake Repair Mechanic Relationship Specialty Start Date End Date Kami Olvera MD [address] [place] [address] PCP - General Family Medicine 02/01/17 Jazzy Dunn RN [address] [facility] [address] Specialty Dish Machine Operator Hematology/Oncology 07/27/21 04/30/23 David House MD [facility] [place] [address] Physician Hematology/Oncology 07/27/21 Odette Lopez, PAPonchoC [address] [place] [address] [place] [address] Physician Cad Manager Hematology/Oncology 07/27/21 Rubens Singh MD [address] [place] [address] [place] [address] Physician Hematology/Oncology 10/08/21 Fran [facility] Palliative Medicine Provider 08/30/21 documented as of this encounter
--- OUTSIDE RECORDS SUMMARY | 2024-12-05 10:41 | XMS_ITS | Encounter Summary ---
Author Organization [facility] Address [address] [place] [address] Care Team Providers Care Assistant Sales Manager Name Role Phone Kami Olvera MD Primary Care Provider [phone] Kapil Patel DO Primary Care Provider + [phone] Kapil Patel DO Unavailable [phone] Monday, Paz MEDICAL BILLING CODER Unavailable [phone] Encounter Details Date Type Department Care Team (Late st Contact Info) Description 07/13/2023 Clinisync Result Encounter [facility] External Department Unsolicited [...] 2:00 PM EST Office Visit [facility] [address] [place] [address] Cole Phillip MD [address] [facility] [address] [place] [address] 04/30/2025 2:15 PM EST Office Visit L[facility] [address] [place] [address] Reji De Luna, DO [address] [place] [address] documented as of this encounter Procedures Procedure Name Priority Date/Time Associated Diagnosis Comments [facility] SURGICAL PATHOLOGY Routine 07/13/2023 12:36 PM EDT UPPER GI ENDOSCOPY 07/13/2023 12 :17 PM EDT documented in this encounter Results * [facility] SURGICAL PATHOLOGY (07/13/2023 12:36 PM EDT) [facility] CASE REPORT [facility] Comment: Surgical Pathology Report Case: [id number] Authorizing Provider: Tim Kumar MD Collected: 07/13/2023 12:36 PM Ordering Location: Procedures Received: 07/13/2023 02:24 PM Pathologist: Marika Keyes MD, PhD Specimens: A) - Small Bowel, Duodenum, Biopsy, r/o celiac B) - Stomach, Biopsy, r/o h. pylori [facility] FINAL DIAGNOSIS [facility] Comment: A. Duodenum, biopsy: - Duodenal mucosa with no diagnostic abnormality. B. Stomach, biopsy: - Gastric antral and oxyntic mucosa with no diagnostic abnormality. GROSS DESCRIPTION [facility] Comment: A. Small Bowel, Duodenum, Biopsy Received in formalin are multiple pieces of velazquez-red, soft tissue aggregating to 1.2 x 0.2 x 0.2 cm. Totally submitted in one cassette. B. Stomach, Biopsy Received in formalin are multiple pieces of velazquez, soft tissue aggregating to 1.5 x 0.3 x 0.2 cm. Totally submitted in one cassette. Gross examination performed at [facility], [facility] [place] [address] July 13, 2023 6:54 PM [facility] FINAL PERFORMING LAB [facility] Comment: Diagnostic interpretation performed at [facility], [facility] [address] CLIA# [id number] Ornamenter Hand: Zachariah San M.D. 07/13/2023 12:3 6 PM EDT 07/13/2023 5:52 PM EDT Narrative TIFF - 07/14/2023 12:19 PM EDT Specimen Type: TISSUE SPECIMEN Ordering Facility: [facility] Address: [address] [place] [address] Original Ordering Provider: TIM KUMAR us Generic External Data Provider TIFF F inal Result TIFF [facility] [address] [facility] [place] [address] * UPPER GI ENDOSCOPY (07/13/2023 12:17 PM EDT) Anatomical Region Laterality Modality Other 07/13/2023 12:1 7 PM EDT Narrative 07/13/2023 12:45 PM EDT [facility] Gastrointestinal Endoscopy Patient Name: Negro Stacy Procedure Date: 07/13/2023 12:17 PM Date of : 1995 Admit Type: Outpatient Age: 28 Room: [place] [address] Gender: Female Note Status: Finalized Attending MD: Tim Kumar MD, [id number] Procedure: Upper GI endoscopy Indications: Abdominal pain in the left upper quadrant, Anorexia, Nausea, Weight loss Providers: Tim Kumar MD Patient Profile: This is a 28 year old female. Refer to note in patient chart for documentation of history and physical. Referring Physician: Theresa Rodríguez (Referring MD) Medicines: Monitored Anesthesia Care Complications: No immediate complications. Requesting Provider: Procedure: Pre-Anesthesia Assessment: - Prior to the procedure, a History and Physical was performed, and patient medications and allergies were reviewed. The patient's tolerance of previous anesthesia was also reviewed. The risks and benefits of the procedure and the sedation options and risks were discussed with the patient. All questions were answered, and informed consent was obtained. Prior Anticoagulants: The patient has taken no anticoagulant or antiplatelet agents. ASA Grade Assessment: III - A patient with severe systemic disease. After reviewing the risks and benefits, the patient was deemed in satisfactory condition to undergo the procedure. After obtaining informed consent, the endoscope was passed under direct vision. Throughout the procedure, the patient's blood pressure, pulse, and oxygen saturations were monitored continuously. The 3390 EGD was introduced through the mouth, and advanced to the second part of duodenum. The upper GI endoscopy was accomplished without difficulty. The patient tolerated the procedure well. Moderate Sedation: MAC anesthesia was administered by the anesthesia team. Total Procedure Duration: 0 hours 5 minutes 3 seconds Findings: The Z-line was regular and was found 38 cm from the incisors. The examined esophagus was normal. A small gastrostomy scar was found in the gastric body. The scar tissue was healthy in appearance. The entire examined stomach was otherwise normal. Biopsies were taken with a cold forceps in the gastric body, at the incisura and in the gastric antrum for histology. Verification of patient identification for the specimen was done by the physician and nurse. The pathology specimen was placed into Bottle B. The examined duodenum was normal. Biopsies for histology were taken with a cold forceps for evaluation of celiac disease. Verification of patient identification for the specimen was done by the physician and nurse. The pathology specimen was placed into Bottle A. The exam was otherwise without abnormality. Impression: - Normal esophagus. - Old gastrostomy scar found in the gastric body. - Otherwise normal stomach. Biopised. - Normal examined duodenum. Biopsied. Recommendation: - Patient has a contact number available for emergencies. The signs and symptoms of potential delayed complications were discussed with the patient. Return to normal activities tomorrow. Written discharge instructions were provided to the patient. - Resume previous diet. - Continue present medications. - Await pathology results. - The findings and recommendations were discussed with the patient. Attending Participation: I personally performed the entire procedure. Scope In: 12:34:32 PM Scope Out: 12:39:35 PM MD Tim Barroso MD 07/13/2023 12:45:00 PM This report has been signed electronically by Tim Kumar MD Number of Addenda: 0 Note Initiated On: 07/13/2023 12:17 PM Estimated Blood Loss: Estimated blood loss was minimal. Procedure Note Radiology, Radiologist, - 07/13/2023 [facility] Gastrointestinal Endoscopy Patient Name: Negro Stacy Procedure Date: 07/13/2023 12:17 PM Date of : 1995 Admit Type: Outpatient Age: 28 Room: [facility] 01 Gender: Female Note Status: Finalized Attending MD: Tim Kumar MD, [id number] Procedure: Upper GI endoscopy Indications: Abdominal pain in the left upper quadrant, Anorexia, Nausea, Weight loss Providers: Tim Kumar MD Patient Profile: This is a 28 year old female. Refer to note in patient chart for documentation of history and physical. Referring Physician: Theresa Rodríguez (Referring MD) Medicines: Monitored Anesthesia Care Complications: No immediate complications. Requesting Provider: Procedure: Pre-Anesthesia Assessment: - Prior to the procedure, a History and Physical was performed, and patient medications and allergies were reviewed. The patient's tolerance of previous anesthesia was also reviewed. The risks and benefits of the procedure and the sedation options and risks were discussed with the patient. All questions were answered, and informed consent was obtained. Prior Anticoagulants: The patient has taken no anticoagulant or antiplatelet agents. ASA Grade Assessment: III - A patient with severe systemic disease. After reviewing the risks and benefits, the patient was deemed in satisfactory condition to undergo the procedure. After obtaining informed consent, the endoscope was passed under direct vision. Throughout the procedure, the patient's blood pressure, pulse, and oxygen saturations were monitored continuously. The 3390 EGD was introduced through the mouth, and advanced to the second part of duodenum. The upper GI endoscopy was accomplished without difficulty. The patient tolerated the procedure well. Moderate Sedation: MAC anesthesia was administered by the anesthesia team. Total Procedure Duration: 0 hours 5 minutes 3 seconds Findings: The Z-line was regular and was found 38 cm from the incisors. The examined esophagus was normal. A small gastrostomy scar was found in the gastric body. The scar tissue was healthy in appearance. The entire examined stomach was otherwise normal. Biopsies were taken with a cold forceps in the gastric body, at the incisura and in the gastric antrum for histology. Verification of patient identification for the specimen was done by the physician and nurse. The pathology specimen was placed into Bottle B. The examined duodenum was normal. Biopsies for histology were taken with a cold forceps for evaluation of celiac disease. Verification of patient identification for the specimen was done by the physician and nurse. The pathology specimen was placed into Bottle A. The exam was otherwise without abnormality. Impression: - Normal esophagus. - Old gastrostomy scar found in the gastric body. - Otherwise normal stomach. Biopised. - Normal examined duodenum. Biopsied. Recommendation: - Patient has a contact number available for emergencies. The signs and symptoms of potential delayed complications were discussed with the patient. Return to normal activities tomorrow. Written discharge instructions were provided to the patient. - Resume previous diet. - Continue present medications. - Await pathology results. - The findings and recommendations were discussed with the patient. Attending Participation: I personally performed the entire procedure. Scope In: 12:34:32 PM Scope Out: 12:39:35 PM MD Tim Barroso MD 07/13/2023 12:45:00 PM This report has been signed electronically by Tim Kumar MD Number of Addenda: 0 Note Initiated On: 07/13/2023 12:17 PM Estimated Blood Loss: Estimated blood loss was minimal. [employer] External Data Provider [facility] Final Result documented in this encounter Visit Diagnoses Not on filedocumented in this encounter Care Teams Assistant Sales Manager Relationship Specialty Start Date End Date Kami Olvera MD [address] [place] [address] PCP - General Family Medicine 07/26/22 10/07/24 Kapil Patel DO [address] [place] [address] PCP - General Family Medicine 10/08/24 Kapil Patel DO [address] [place] [address] PCP - [facility] 10/24/24MondayPaz LPN [address] [facility] [address] [place] [address] Licensed Practical Nurse Family Medicine 11/25/2411/28 documented as of this encounter
--- OUTSIDE RECORDS SUMMARY | 2024-12-05 10:41 | XMS_ITS | Encounter Summary ---
Author Organization [facility] Address [address] [place] [address] Care Team Providers Care Home Hospice Aide Name Role Phone Kapil Patel DO Primary Care Provider [phone] Kapil Patel DO Unavailable [phone] Reason for Visit * Reason Comments Med Refill Encounter Details Date Type Department Care Team (Late st Contact Info) Description 11/30/2024 Refill [facility] [address] [place] [id number] Cole Phillip MD [address] [place] [address] Depression, unspecified depression type Social History Tobacco Use Types Packs/Day Years [...] week 11/12/2024 How often do you attend [facility] or sabian[facility] services? More than 4 times per year 11/12/2024 Do you belong to any clubs o r organizations such as confucianism groups, unions, fraternal or athletic groups, or [...] Score 0 11/22/2024 [facility] - Occupational Stress Questionnaire Answer Date [...] any time in the past 12 m [facility], were you homeless or living in a detention (including now)? No 11/12/2024 Comments Unknown Sex [...] [facility] [address] [facility] [address] [place] [address] Cole Phillip MD [address] [facility] [address] [place] [address] 04/30/2025 2:15 PM EST Office Visit L[facility]LIE [facility] [address] [place] [address] Reji De Luna DO [address] [place] [address] documented as of this encounter Visit Diagnoses Diagnosis Depression, unspecified depression type documented in this encounter Care Teams Home Hospice Aide Relationship Specialty Start Date End Date Kapil Patel DO [address] [place] [address] PCP - General Family Medicine 10/08/24 Kapil Patel DO [address] [place] [address] PCP - Amita Roque 10/24/24 documented as of this encounter
--- OUTSIDE RECORDS SUMMARY | 2024-12-05 10:41 | XMS_ITS | Encounter Summary ---
Author Organization [facility] Address [address] [place] [address] Care Team Providers Care Hostess Name Role Phone Kami Olvera MD Primary Care Provider [phone] David House MD Unavailable [phone] Rubens Singh MD Unavailable [phone] Source Comments In the event this information is protected by the Federal Confidentiality of Alcohol and Drug AbusePatient Records regulations: The Federal rules restrict any use of the information to criminally investigate or prosecute any alcohol or drug abuse patient.[facility] Encounter Details Date Type Department Care Team (Late st Contact Info) Description 08/06/2023 [place] [address] Provider, Cc MRI Screening Questionnaire Completion Required [...] lower risk 6 10/14/2022 Data from: [email or web address] Last address used for [...] on filedocumented in this encounter Care Teams Hostess Relationship Specialty Start Date End Date Kami Olvera MD [address] [place] [id number] PCP - General Family Medicine 02/01/17 David House MD [address] [place] [address] Physician Hematology/Oncology 07/27/21 Rubens Singh MD [address] [place] [address] Physician Hematology/Oncology 10/08/21 [facility] Palliative Medicine Provider 08/30/21 documented as of this encounter
--- OUTSIDE RECORDS SUMMARY | 2024-12-05 10:41 | XMS_ITS | Encounter Summary ---
Author Organization [facility] Address [address] [facility] [place] [address] Care Team Providers Care Automatic Cigar Wrapper Tender Name Role Phone Kami Olvera MD Primary Care Provider [phone] Kapil Patel DO Primary Care Provider + [phone] Kapil Patel DO Unavailable [phone] Monday, Paz RESEARCH AND DEVELOPMENT SPECIALIST Unavailable [phone] Encounter Details Date Type Department Care Team (Late st Contact Info) Description 08/23/2023 Clinisync Result Encounter [facility] External Department Unsolicited [...] 2:00 PM EST Office Visit [facility]IE [facility] [address] [place] [address] Cole Phillip MD [address] [facility] [address] [place] [address] 04/30/2025 2:15 PM EST Office Visit LESLIE [facility] [address] [place] [address] Reji De Luna, DO [address] [place] [address] documented as of this encounter Procedures Procedure Name Priority Date/Time Associated Diagnosis Comments XR ABD 2V SUPINE W UPR/DECUB/CTL 08/23/2023 1:18 PM EDT [facility] IGA SERPL-MCNC Routine 08/23/2023 1: 05 PM EDT [facility] CELIAC SCREEN Routine 08/23/2023 1:0 5 PM EDT documented in this encounter Results * XR ABD 2V SUPINE W UPR/DECUB/CTL (08/23/2023 1:18 PM EDT) Anatomical Region Laterality Modality Other 08/23/2023 1:18 PM EDT Narrative 08/24/2023 8:15 AM EDT * * *Final Report* * * DATE OF EXAM: Aug 23 2023 1:18PM [id number] - XR ABD 2V SUPINE W UPR/DECUB/CTL / PROCEDURE REASON: multiple diagnoses * * * * Physician Interpretation * * * * RESULT: ABDOMINAL RADIOGRAPHS HISTORY: Anorexia Abnormal weight loss Change in stool caliber . TECHNIQUE: 3 view(s) of the abdomen were obtained. COMPARISON: 08/12/2021 RESULT: No dilated loops of bowel. Moderate stool in the colon. No free air. No pathological calcifications. Osseous structures are intact. IMPRESSION: No dilated loops of bowel. Transcribe Date/Time: Aug 24 2023 8:12A Dictated by: SAMARA CATHERINE MD This examination was interpreted and the report reviewed and electronically signed by: SAMARA CATHERINE MD on Aug 24 2023 8:13AM EST Thank you for allowing us to participate in the care of your patient. Should there be any questions regarding this interpretation, please call [phone]. If you are unable to reach us at the number above, please feel free to contact [facility] at [phone]. [id number]^[email or web address]^SI^ACN Procedure Note Radiology, Radiologist, - 08/24/2023 * * *Final Report* * * DATE OF EXAM: Aug 23 2023 1:18PM [id number] - XR ABD 2V SUPINE W UPR/DECUB/CTL / PROCEDURE REASON: multiple diagnoses * * * * Physician Interpretation * * * * RESULT: ABDOMINAL RADIOGRAPHS HISTORY: Anorexia Abnormal weight loss Change in stool caliber . TECHNIQUE: 3 view(s) of the abdomen were obtained. COMPARISON: 08/12/2021 RESULT: No dilated loops of bowel. Moderate stool in the colon. No free air. No pathological calcifications. Osseous structures are intact. IMPRESSION: No dilated loops of bowel. Transcribe Date/Time: Aug 24 2023 8:12A Dictated by: SAMARA CATHERINE MD This examination was interpreted and the report reviewed and electronically signed by: SAMARA CATHERINE MD on Aug 24 2023 8:13AM EST Thank you for allowing us to participate in the care of your patient. Should there be any questions regarding this interpretation, please call [phone]. If you are unable to reach us at the number above, please feel free to contact [facility] at [phone]. [id number]^[email or web address]^SI^ACN us Generic External Data Provider [facility] Final Result * [facility] CELIAC SCREEN (08/23/2023 1:05 PM EDT) [facility] TTG IGA SER-ACNC <2 <4 U/mL [facility] TRANSGLUTAMINASE IGA ABS INTERPRETATION Negative Negative [facility] Comment: The following results were obtained with [employer] QUANTA Lite R h-tTG IgA ULISES.???R h-tTG IgA values obtained with different manufacturers' assay methods may not be used interchangeably. The magnitude of the reported IgA levels cannot be corelated to an endpoint???concentration. This is used as an aid in diagnosis of celiac disease. Clinical correlation is required. [facility] INTERPRETATION No serological evidence of celiac disease, however, if celiac disease is clinically suspected and patient is not on gluten-free diet, histological diagnosis may be considered. HLA testing may help with risk assessment. [facility] GLIADIN PEPTIDE IGA SER-ACNC 3 <20 Units [facility] GLIAD DEAMIDATED IGA QUAL Negative Negative, Test not Indicated [facility] Comment: This is used as an aid in diagnosis of celiac disease. Clinical correlation is required. The following results were obtained with an [employer] QUANTA Lite Gliadin IgA ULISES Gliadin. Gliadin IgA values obtained with different manufacturers' assay methods may not be used interchangeably. The magnitude of the reported IgA levels cannot be correlated to an endpoint titer. 08/23/2023 1:05 PM EDT 08/23/2023 11:17 PM EDT Narrative [facility] - 08/25/2023 1:54 PM EDT Specimen Type: BLOOD SPECIMEN Ordering Facility: [facility] Address: [address] [place] [address] Original Ordering Provider: DAISY OCHOA Generic External Data Provider ALEXEIISYCHRISTOFER F inal Result Performing Organization Address [facility] de Phone Number [facility] CC [address] [address] * [facility] IGA SERPL-MCNC (08/23/2023 1:05 PM EDT) [facility] IGA SERPL-MCNC 121 70 - 400 mg/dL [facility] 08/23/2023 1:05 PM EDT 08/23/2023 11:19 PM EDT Narrative [facility] - 08/24/2023 9:45 AM EDT Specimen Type: BLOOD SPECIMEN Ordering Facility: [facility] Address: [address] [place] [address] Original Ordering Provider: DAISY OCHOA Generic External Data Provider [facility] F inal Result Performing Organization Address [facility] de Phone Number ALEXEIISYNC [facility] [address] [address] documented in this encounter Visit Diagnoses Not on filedocumented in this encounter Care Teams Automatic Cigar Wrapper Tender Relationship Specialty Start Date End Date Kami Olvera MD [address] [place] [address] PCP - General Family Medicine 07/26/22 10/07/24 Kapil Patel DO [address] [place] [address] PCP - General Family Medicine 10/08/24 Kapil Patel DO [address] [place] [address] PCP - [facility] 10/24/24Monday, FELISHA Mullen [address] [place], [place] [address] Licensed Practical Nurse Family Medicine 11/25/2411/28 documented as of this encounter
--- OUTSIDE RECORDS SUMMARY | 2024-12-05 10:41 | XMS_ITS | Encounter Summary ---
Author Organization [facility] Address [address] [place] [address] Care Team Providers Care Rate Clerk Name Role Phone JustoDevonte page Carlos Alberto RIVAS Primary Care Provider Kami Olvera MD Primary Care Provider [phone] Jazzy Dunn RN Unavailable [phone] David House MD Unavailable [phone] Odette Lopez PA-C Unavailable [phone] Rubens Singh MD Unavailable [phone] Source Comments In the event this information is protected by the Federal Confidentiality of Alcohol and Drug AbusePatient Records regulations: The Federal rules restrict any use of the information to criminally investigate or prosecute any alcohol or drug abuse patient.[facility] Encounter Details Date Type Department Care Team (Late st Contact Info) Description 04/01/2014 Patient Msg Medical Records [address] [place] [address] Provider, [facility] RE: Request an Appointment Social [...] of Assessment Author No 02/25/2014 12:48 PM Feliciyt Clinton LPN * Are you blind or [...] documented as of this encounter Care Teams Rate Clerk Relationship Specialty Start Date End Date Devonte Kemp DO PCP - General Family Medicine 05/03/13 01/31/17 Kami Olvera MD [address] [place] [address] PCP - General Family Medicine 02/01/17 Jazzy Dunn RN [address] [facility] [address] Specialty Tape Edge Machine Operator Hematology/Oncology 07/27/21 04/30/23 David House MD [address] [place] [address] Physician Hematology/Oncology 07/27/21 Odette Lopez, PA-C [address] [place] [address] Physician Flavoring Oil Filterer Hematology/Oncology 07/27/21 Rubens Singh MD [address] [facility] [place] [address] Physician Hematology/Oncology 10/08/21 [facility] Palliative Medicine Provider 08/30/21 documented as of this encounter
--- OUTSIDE RECORDS SUMMARY | 2024-12-05 10:41 | XMS_ITS ---
Author Organization [facility] Address [facility] [place] [address] Care Team Providers Care Inter Fold Roll Cutter Name Role Phone Kami Olvera MD Primary Care Provider [phone] David House MD Unavailable [phone] Rubens Singh MD Unavailable [phone] Active Problems * This document contains [...] these intermittent episodes. She was extubated to [place], then became anxious, tearful, saying she couldn't [...] and occasional poor IV access. Will notify [place] anesthesia of patient history. Depression 02/16/2021 Overview [...] ONCE 11/26/2021 09/24/2022 No medications scheduled. Other Odette Lopez PA-C 1 of 1 cycle started [...]
--- OUTSIDE RECORDS SUMMARY | 2024-12-05 10:41 | XMS_ITS | Encounter Summary ---
Author Organization [facility] Address [address] [place] [address] Care Team Providers Care Editor Greeting Card Name Role Phone Kapil Patel DO Primary Care Provider +[phone]- [phone] Kapil Patel DO Unavailable [phone] Encounter Details Date Type Department Care Team ([facility] st Contact Info) Description 11/29/2024 External Result Encounter [facility] External Department Unsolicited Marcelle Ryan MD [address] [place] [address] Social History Tobacco Use Types [...] How often do you attend chur or moravian services? More than 4 times per year 11/12/2024 Do you belong to any clubs o r organizations such as taoist groups, unions, fraternal or athletic groups, or [...] Recorded Patient Health Questionnaire-2 Score 0 11/22/2024 [facility] Questionnaire Answer Date [...] time in the past [address] [facility], were you homeless or living in [...] PM EST Office Visit [facility] [place] [facility] [address] [facility] [address] [place] [address] Cole Phillip MD [address] [facility] [address] [place] [address] 04/30/2025 2:15 PM EST Office Visit [facility] [address] [place] [address] Reji De Luna W, DO [address] [place] [address] documented as of this encounter Procedures Procedure Name Priority Date/Time Associated Diagnosis Comments CT CHEST W IV CONTRAST 11/29/2024 1:13 PM EDT documented in this encounter Results * CT chest w IV contrast (11/29/2024 1:13 PM EDT) Anatomical Region Laterality Modality Body, Chest Computed Tomogra phy 11/29/2024 1:13 PM EDT Impressions 11/29/2024 1:18 PM EDT No acute findings. No pathologically enlarged lymph nodes seen within the chest. Impression dictated by: Jesus Ledesma Jr., D.OGhassan 11/29/2024 1:16 PM Dictation Location: [id number]-[id number] Transcribed By: ANNABELLA 11/29/24 1316 Dictated By: Jesus Ledesma Jr, DO 11/29/24 1313 Signed By: <Electronically signed by Jesus Ledesma Jr, DO in OV> 11/29/24 1316 Narrative 11/29/2024 1:18 PM EDT [facility] Main [place] [address] [place] [address] CT Scan Report Signed Patient: Negro Stacy MR#: [id number] [birth year] : 1995 Acct:[id number] Age/Sex: 29 / F ADM Date: 11/29/24 Loc: Room: Type: [facility] Attending Dr: Marcelle Ryan MD Copies to: [...] Procedure Note Jesus Ledesma Jr., - 11/29/2024 [facility] Main [place] [address] [place], [place] [address] CT Scan Report Signed Patient: Negro Stacy KMR#: [id number] [birth year] : 1995Acct:[id number] Age/Sex: 29 / FADM Date: 11/29/24 Loc: Room:Type: [facility] RCR Attending Dr: Marcelle Ryan MD [...] Jr., D.OGhassan 11/29/2024 1:16 PM Dictation Location: [place] [address] Transcribed By: [facility] 11/29/24 1316 Dictated By: Jesus Ledesma Jr, DO 11/29/24 1313 Signed By: <Electronically signed by Jesus Ledesma Jr, inOV> 11/29/24 1316 us Marcelle Ryan MD IMG CT PROCEDURES Final Result documented in this encounter Visit Diagnoses Not on filedocumented in this encounter Care Teams Editor Greeting Card Relationship Specialty Start Date End Date Kapil Patel DO [address] [place] [address] PCP - General Family Medicine 10/08/24 Kapil Patel DO [address] [place] [address] PCP - [place] [employer] 10/24/24 documented as of this encounter
--- OUTSIDE RECORDS SUMMARY | 2024-12-05 10:42 | XMS_ITS | Encounter Summary ---
Author Organization [facility] Address [address] [place] [address] Care Team Providers Care Certified Orthotist Practice Manager Name Role Phone Kapil Patel DO Primary Care Provider +- [phone] Kapil Patel DO Unavailable [phone], Paz ANDERSONN Unavailable [phone] Encounter Details Date Type Department Care Team (Late st Contact Info) Description 11/20/2024 Abstract [facility] [address] [facility] [address] [place] [address] Kapil Patel, DO [address] [place] [address] Social History Tobacco Use Types Packs/Day Years [...] 11/12/2024 How often do you attend [facility] or scientology services? More than 4 times per year 11/12/2024 Do you belong to any clubs o r organizations such as anabaptist groups, unions, fraternal or athletic groups, or [...] Recorded Patient Health Questionnaire-2 Score 0 11/22/2024 [facility] of Occupat ional Health - Occupational [...] any time in the past 12 m [facility], were you homeless or living in a fpc (including now)? No 11/12/2024 Comments Unknown Sex [...] Neurology [address] [place] [address] Cole Phillip MD [address] [facility] [address] [place] [address] 04/30/2025 2:15 PM EST Office Visit [facility] [address] [place] [address] Reji De Luna, DO [address] [place] [address] documented as of this encounter Visit Diagnoses Not on filedocumented in this encounter Care Teams Certified Orthotist Practice Manager Relationship Specialty Start Date End Date Kapil Patel DO [address] [place] [address] PCP - General Family Medicine 10/08/24 Kapil Patel DO [address] [place] [address] PCP - [employer] 10/24/24Monday, FELISHA Mullen [address] [place] [address] Licensed Practical Nurse Family Medicine 11/25/2411/28 documented as of this encounter
--- OUTSIDE RECORDS SUMMARY | 2024-12-05 10:42 | XMS_ITS | Encounter Summary ---
Author Organization [facility] Address [address] [place] [address] Care Team Providers Care Math And Science Division Chair Name Role Phone Kapil Patel DO Primary Care Provider +- [phone] Kapil Patel DO Unavailable [phone], Paz ANDERSONN Unavailable [phone] Encounter Details Date Type Department Care Team (Late st Contact Info) Description 11/22/2024 Abstract [facility] [address] [place] [address] Kapil Patel, DO [address] [place] [address] Social History Tobacco Use Types Packs/Day Years [...] week 11/12/2024 How often do you attend [facility] or quaker services? More than 4 times per year [...] 0 11/22/2024 [facility] of Occupat ional Health - Occupational Stress [...] in the past [address] [facility], were you homeless or living in a [...] Neurology [address] [place] [address] Cole Phillip MD [address] [facility] [place] [address] 04/30/2025 2:15 PM EST Office Visit [facility] [address] [place] [address] Reji De Luna, DO [address] [place] [address] documented as of this encounter Visit Diagnoses Not on filedocumented in this encounter Care Teams Math And Science Division Chair Relationship Specialty Start Date End Date Kapil Patel DO [address] [place] [address] PCP - General Family Medicine 10/08/24 Kapil Patel DO [address] [place] [address] PCP - [facility] [employer] 10/24/24Monday, FELISHA Mullen [address] [place] [address] Licensed Practical Nurse Family Medicine 11/25/2411/28 documented as of this encounter
--- OUTSIDE RECORDS SUMMARY | 2024-12-05 10:42 | XMS_ITS | Encounter Summary ---
Author Organization [facility] Address [address] [place] [address] Care Team Providers Care Equipment Validation Engineer Name Role Phone Kapil Patel DO Primary Care Provider + [phone] Kapil Patel DO Unavailable [phone] Monday, Paz ANDERSONN Unavailable [phone] Encounter Details Date Type Department Care Team (Late st Contact Info) Description 11/21/2024 Patient Outreach [facility] [address] [place] [address] Magda Barcenas LPN Social History Tobacco Use Types Packs/Day Years [...] week 11/12/2024 How often do you attend [facility] or jainism services? More than 4 times per year [...] Recorded Patient Health Questionnaire-2 Score 0 11/22/2024 [facility]ational [facility] Questionnaire Answer Date Recorded [...] any time in the past 12 m [facility], were you homeless or living [...] [facility] [place] [facility] [address] [facility] [address] [place] [address] Cole Phillip MD [address] [place], [place] [address] 04/30/2025 2:15 PM EST Office Visit [facility] [place] [facility] [address] [place] [address] Reji De Luna, DO [address] [place] [address] documented as of this encounter Visit Diagnoses Not on filedocumented in this encounter Care Teams Equipment Validation Engineer Relationship Specialty Start Date End Date Kapil Patel, DO [address] [place] [address] PCP - General Family Medicine 10/08/24 Kapil Patel DO [address] [place] [address] [facility] 10/24/24Monday, FELISHA Mullen [address] [facility] [address] [place] [address] Licensed Practical Nurse Family Medicine 11/25/2411/28 documented as of this encounter
--- OUTSIDE RECORDS SUMMARY | 2024-12-05 10:42 | XMS_ITS | Encounter Summary ---
Author Organization Address [address] [place] [address] Care Team Providers Care Upholstery Auto Trimmer Name Role Phone JustoDevonte page Carlos Alberto RIVAS Primary Care Provider Kami Olvera MD Primary Care Provider [phone] Jazzy Dunn RN Unavailable [phone] David House MD Unavailable [phone] Odette Lopez PA-C Unavailable [phone] Rubens Singh MD Unavailable [phone] Source Comments In the event this information is protected by the Federal Confidentiality of Alcohol and Drug AbusePatient Records regulations: The Federal rules restrict any use of the information to criminally investigate or prosecute any alcohol or drug abuse patient. Encounter Details Date Type Department Care Team (Late st Contact Info) Description 04/01/2014 Patient Msg Medical Records [address] [place] [address] Provider, Ccf RE: Request an Appointment Social [...] documented as of this encounter Care Teams Upholstery Auto Trimmer Relationship Specialty Start Date End Date Devonte Kemp DO PCP - General Family Medicine 05/03/13 01/31/17 Kami Olvera MD [address] [place] [address] PCP - General Family Medicine 02/01/17 Jazzy Dunn RN [address] [facility] [place] [address] Specialty Manager Endoscopy Hematology/Oncology 07/27/21 04/30/23 David House MD [address] [place] [address] Physician Hematology/Oncology 07/27/21 Odette Lopez, PA-C [address] [place] [address] Physician Irrigation Teacher Hematology/Oncology 07/27/21 Rubens Singh MD [address] [facility] [place] [address] Physician Hematology/Oncology 10/08/21 [facility] Palliative Medicine Provider 08/30/21 documented as of this encounter
--- OUTSIDE RECORDS SUMMARY | 2024-12-05 10:42 | XMS_ITS | Encounter Summary ---
Author Organization [facility] Address [address] [place] [address] Care Team Providers Care Fish Machine Feeder Name Role Phone Kapil Patel DO Primary Care Provider [phone] Kapil Patel DO Unavailable [phone] Encounter Details Date Type Department Care Team (Latest Contact Info) Description 11/22/2024 Travel Social History Tobacco Use Types Packs/Day Years [...] How often do you attend chur or adventism services? More than 4 times per year 11/12/2024 Do you belong to any clubs o r organizations such as religion groups, unions, fraternal or athletic groups, or [...] Recorded Patient Health Questionnaire-2 Score 0 11/22/2024 [facility] of Occupat ional [facility] - Occupational Stress Questionnaire Answer Date Recorded [...] time in the past 12 m [facility], were you homeless or living in [...] 2:00 PM EST Office Visit [facility] [place] [facility] [address] [facility] [address] [place] [address] Cole Phillip MD [address] [facility] [address] [place] [address] 04/30/2025 2:15 PM EST Office Visit [facility] [address] [place] [address] Reji De Luna W, DO [address] [place] [address] documented as of this encounter Visit Diagnoses Not on filedocumented in this encounter Care Teams Fish Machine Feeder Relationship Specialty Start Date End Date Kapil Patel DO [address] [place] [address] PCP - General Family Medicine 10/08/24 Kapil Patel DO [address] [place] [address] PCP - Amita Roque 10/24/24 documented as of this encounter
--- OUTSIDE RECORDS SUMMARY | 2024-12-05 10:42 | XMS_ITS | Encounter Summary ---
Author Organization [facility] Address [address] [place] [address] Care Team Providers Care Cadastral Engineer Name Role Phone Kapil Patel DO Primary Care Provider [phone] Kapil Patel DO Unavailable [phone] Encounter Details Date Type Department Care Team (Late st Contact Info) Description 11/22/2024 Bamboo flowsheet [facility] [place] [facility] [address] [place] [address] Kapil Patel, DO [address] [place] [address] Social History Tobacco Use Types Packs/Day Years [...] you attend [facility] or sikh services? More than 4 times per year [...] Recorded Patient Health Questionnaire-2 Score 0 11/22/2024 [facility] - Occupational Stress Questionnaire Answer Date [...] any time in the past 12 m [facility], were you homeless or living in a fdc (including now)? No 11/12/2024 Comments Unknown Sex [...] 2:00 PM EST Office Visit [facility] [address] [facility] [address] [facility] [address] [place] [address] Cole Phillip MD [address] [facility] [address] [address] [place] [address] 04/30/2025 2:15 PM EST Office Visit [facility] [address] [place] [address] Reji De Luna DO [address] [place] [address] documented as of this encounter Visit Diagnoses Not on filedocumented in this encounter Care Teams Cadastral Engineer Relationship Specialty Start Date End Date Kapil Patel DO [address] [place] [address] PCP - General Family Medicine 10/08/24 Kapil Patel DO [address] [place] [address] PCP - [place] [employer] 10/24/24 documented as of this encounter
--- OUTSIDE RECORDS SUMMARY | 2024-12-05 10:42 | XMS_ITS | Encounter Summary ---
Author Organization [facility] Address [address] [place] [address] Care Team Providers Care Traffic Circuit Engineer Name Role Phone JustoDevonte page Carlos Alberto RIVAS Primary Care Provider Kami Olvera MD Primary Care Provider [phone] Jazzy Dunn RN Unavailable [phone] David House MD Unavailable [phone] Odette Lopez PA-C Unavailable [phone] Rubens Singh MD Unavailable [phone] Source Comments In the event this information is protected by the Federal Confidentiality of Alcohol and Drug AbusePatient Records regulations: The Federal rules restrict any use of the information to criminally investigate or prosecute any alcohol or drug abuse patient.[facility] Encounter Details Date Type Department Care Team (Late st Contact Info) Description 04/01/2014 Patient Msg Medical Records [address] [place] [address] Provider, Ccf RE: Appointment Cancellation Request Social [...] documented as of this encounter Care Teams Traffic Circuit Engineer Relationship Specialty Start Date End Date Devonte Kemp DO PCP - General Family Medicine 05/03/13 01/31/17 Kami Olvera MD [address] [place] [address] PCP - General Family Medicine 02/01/17 Jazzy Dunn RN [address] [place] [address] Specialty Caddy Packer Hematology/Oncology 07/27/21 04/30/23 David House MD [address] [place] [address] [place] [address] Physician Hematology/Oncology 07/27/21 Odette Lopez, PA-C [address] [place] [address] Physician Client Support Consultant Hematology/Oncology 07/27/21 Rubens Singh MD [address] [facility] [place] [address] Physician Hematology/Oncology 10/08/21 [facility] Palliative Medicine Provider 08/30/21 documented as of this encounter
--- OUTSIDE RECORDS SUMMARY | 2024-12-05 10:42 | XMS_ITS | Encounter Summary ---
Author Organization [facility] Address [address] [place] [address] Care Team Providers Care Preparation Supervisor Freezing Name Role Phone Kami Olvera MD Primary Care Provider [phone] David House MD Unavailable [phone] Rubens Singh MD Unavailable [phone] Source Comments In the event this information is protected by the Federal Confidentiality of Alcohol and Drug AbusePatient Records regulations: The Federal rules restrict any use of the information to criminally investigate or prosecute any alcohol or drug abuse patient.[facility] Encounter Details Date Type Department Care Team (Late st Contact Info) Description 07/13/2023 Get Medical Advice Gastroenterology [address] [place] [address] Theresa Rodríguez APRN.INTERNET MEDIA PLANNER [address] [place] [address] Stomach Issues Social History Tobacco Use Types [...] lower risk 6 10/14/2022 Data from: https://www.neigh borhoodatlas.medicine.[facility].edu/. Last address used for calculation [address] [...] and recommendations were discussed with the patient. [facility] 06/23/2023 ASSESSMENT/PLAN: She is accompanied by her [...] 2V ROUTINE SUPINE W UPRIGHT/DECUB/CTL Theresa Rodríguez APRN.INTERNET MEDIA PLANNER documented in this encounter Plan of Treatment Not on file documented as of this encounter Visit Diagnoses Not on filedocumented in this encounter Care Teams Preparation Supervisor Freezing Relationship Specialty Start Date End Date Kami Olvera MD [address] [place] [address] PCP - General Family Medicine 02/01/17 David House MD [address] [place] [address] Physician Hematology/Oncology 07/27/21 Rubens Singh MD [address] [place] [address] Physician Hematology/Oncology 10/08/21 [facility] 08/30/21 documented as of this encounter
--- OUTSIDE RECORDS SUMMARY | 2024-12-05 10:42 | XMS_ITS | Encounter Summary ---
Author Organization [facility] Address [address] [place] [address] [place] [address] Care Team Providers Care Stores Despatch Hand Name Role Phone Kapil Patel DO Primary Care Provider +- [phone] Kapil Patel DO Unavailable [phone], Paz ANDERSONN Unavailable [phone] Encounter Details Date Type Department Care Team (Late st Contact Info) Description 11/19/2024 Abstract [facility] [address] [address] [place] [address] Kapil Patel, DO [address] [place] [address] Social History Tobacco Use Types Packs/Day Years [...] week 11/12/2024 How often do you attend [facility] or amish services? More than 4 times per year 11/12/2024 Do you belong to any clubs o r organizations such as pentecostal groups, unions, fraternal or athletic groups, or [...] Recorded Patient Health Questionnaire-2 Score 0 11/22/2024 [facility] of Occupat ional Health - Occupational [...] any time in the past 12 m [facility], were you homeless or living in a [...] Neurology [address] [place] [address] Cole Phillip MD [address] [address] [facility] [address] [place] [address] 04/30/2025 2:15 PM EST Office Visit [facility] [address] [place] [address] Reji De Luna, DO [address] [place] [address] documented as of this encounter Visit Diagnoses Not on filedocumented in this encounter Care Teams Stores Despatch Hand Relationship Specialty Start Date End Date Kapil Patel DO [address] [place] [address] PCP - General Family Medicine 10/08/24 Kapil Patel DO [address] [place] [address] PCP - [place] [employer] 10/24/24Monday, FELISHA Mullen [address] [place] [address] Licensed Practical Nurse Family Medicine 11/25/2411/28 documented as of this encounter
--- OUTSIDE RECORDS SUMMARY | 2024-12-05 10:42 | XMS_ITS | Clinical Summary ---
Author Organization [facility] Address [address] [place] [address] Care Team Providers Care Incinerator Plant Laborer Name Role Phone Kami Olvera MD Primary Care Provider [phone] David House MD Unavailable [phone] Rubens Singh MD Unavailable [phone] Allergies Active Allergy Reactions Criticality Noted [...] these intermittent episodes. She was extubated to [place], then became anxious, tearful, saying she couldn't [...] and occasional poor IV access. Will notify [facility] anesthesia of patient history. Depression 02/16/2021 Overview [...] Care Team Description 10/15/2024 Telephone Hematology/Oncology [address] [facility] [address] [facility] [place] [address] Randal Hu MD Referral 09/10/2024 [place] [address] Provider, [facility] Sign up to manage your [...] lower risk 6 10/14/2022 Data from: https://www.neigh borhoodatlas.medicine.[facility].edu/. Last address used for calculation [...] history exists Medical Devices Explanted Type Area Threshing Department Supervisor Device Identifier Shelf Expiration Date Model / Serial / Lot Stent Wallflex 10mm 8.5fr Permalume Covering 40mm Biliary Rapid Exchange - [id number] Implanted:Qty: 1 on 09/10/2020 at [facility] Stent N/A: Bile Duct [employer] 07/26/2022 [id number] / / [id number] Description:D: 01423 Model: WallFlex Biliary RX Uncovered Stent System Generic: stent Model Number: [id number] (10) Models Summary: MR Conditional - See [...] in a 3.0 Patricia Magnetom Trio , [employer] MR system, software version Numaris/4, [employer] A30. The stents were in a location [...] at 64 MHz in a 1.5 Patricia [employer], software version Release 12.6.1.3 2010-02-18 whole body [...] stent. 961Click here for reference website07/08/2013 Mfr: [employer]. Parent Co: Fax: Rob Entake 20fr Peg Pull Method Fenestrated Drape Standard - [id number] Implanted:Qty: 1 on 12/22/2020 at [facility] Tube N/A: Abdomen [employer] ENDOSCOPIC TECH 04/19/2022 [id number] / / [id number] Description:peg Set Peg 24 24fr 5.5mm .035in Silicone 150cm Gastrostomy Pull Method - [id number] Implanted:Qty: 1 on 07/08/2021 at [facility] Tube N/A: Abdomen [employer] ENDOSCOPY 05/27/2022 PEG-24-PU LL-S / / [id number] Description:silicone [facility] Advance Directives Documents on File Type Date Recorded Patient Seed Cleaner Operator Expl anation Advance Directive(s) 08/23/2021 Advance Directives * Full Code (Latest Code Status on File) Date Activated Date Inactivated Comments 05/19/2021 12:17 PM 05/23/2021 10:52 PM Question Answer Comments Full Code Order Discussed With: Surrogate Decisi on Maker Surrogate Decision Maker Name: [facility] Care Teams Incinerator Plant Laborer Relationship Specialty Start Date End Date Kami Olvera MD [address] [facility] [place] [address] PCP - General Family Medicine 02/01/17 David House MD [address] [place] [address] Physician Hematology/Oncology 07/27/21 Rubens Singh MD [address] [place] [address] Physician Hematology/Oncology 10/08/21 [facility] Palliative Medicine Provider 08/30/21
--- OUTSIDE RECORDS SUMMARY | 2024-12-05 10:42 | XMS_ITS | Encounter Summary ---
Author Organization [facility] Address [address] [place] [address] Care Team Providers Care Automotive Buyer Name Role Phone Kami Olvera MD Primary Care Provider [phone] David House MD Unavailable [phone] Rubens Singh MD Unavailable [phone] Source Comments In the event this information is protected by the Federal Confidentiality of Alcohol and Drug AbusePatient Records regulations: The Federal rules restrict any use of the information to criminally investigate or prosecute any alcohol or drug abuse patient.[facility] Encounter Details Date Type Department Care Team (Late st Contact Info) Description 06/28/2023 Patient Msg [facility]astroenterology [address] [facility] [place] [place], [place] [id number] [place] [address] [place] [address] Prep instructions Social History Tobacco [...] lower risk 6 10/14/2022 Data from: https://www.neigh borhoodatlas.medicine.[facility].edu/. Last address used for calculation [address] [...] on filedocumented in this encounter Care Teams Automotive Buyer Relationship Specialty Start Date End Date Kami Olvera MD [address] [place] [phone] PCP - General Family Medicine 02/01/17 David House MD [address] [place] [phone] Physician Hematology/Oncology 07/27/21 Rubens Singh MD [address] [place] [address] Physician Hematology/Oncology 10/08/21 [facility] Palliative Medicine Provider 08/30/21 documented as of this encounter
--- OUTSIDE RECORDS SUMMARY | 2024-12-05 10:42 | XMS_ITS | Encounter Summary ---
Author Organization [facility] Address [address] [place] [address] Care Team Providers Care Freelance Court Reporter Name Role Phone Kami Olvera MD Primary Care Provider [phone] David House MD Unavailable [phone] Rubens Singh MD Unavailable [phone] Source Comments In the event this information is protected by the Federal Confidentiality of Alcohol and Drug AbusePatient Records regulations: The Federal rules restrict any use of the information to criminally investigate or prosecute any alcohol or drug abuse patient.[facility] Encounter Details Date Type Department Care Team (Late st Contact Info) Description 07/12/2023 GI Preprocedure Call [facility] Surgery [address] [facility] [place] [address] [place] [address] [place] [address] Social History Tobacco Use Types [...] lower risk 6 10/14/2022 Data from: https://www.neigh borhoodatlas.medicine.[facility].edu/. Last address used for calculation [...] on filedocumented in this encounter Care Teams Freelance Court Reporter Relationship Specialty Start Date End Date Kami Olvera MD [address] [place] [phone] PCP - General Family Medicine 02/01/17 David Hosue MD [address] [place] [phone] Physician Hematology/Oncology 07/27/21 Rubens Singh MD [address] [place] [address] Physician Hematology/Oncology 10/08/21 [facility] Palliative Medicine Provider 08/30/21 documented as of this encounter
[2024-12-10 03:07] LABS: Pancreatic Elastase, Fecal 114 (>200)
== END 2024-12-05 10:33 | disposition home or self-care (01) ==
LOC: LAB 10:32
PROVIDERS: PCP Family Medicine; Visit Provider Internal Medicine Hematology & Oncology
DX: R19.7 Diarrhea, unspecified (principal)
CPT/HCPCS: 82656

== ENCOUNTER 2025-01-13 19:07 | Emergency (ER) | payer BC, SELFPAY ==
--- OUTSIDE RECORDS SUMMARY | 2025-01-01 11:56 | XMS_ITS | Continuity of Care Document ---
Author Organization [facility] Address [address] [place] [address] Phone Care Team Providers Care Social Welfare Clerk Name Role Phone Kami Briceno MD Primary Care Pr ovider Melly Diaz APRN Attending Provider Kapil Patel DO Primary Care Provider [phone] Marcelle Ryan MD Attending Provider Randal Hu MD Referring Provider Petey Diaz PA-C Emergency Provider Care Teams Patient Care Team Team Status: Active Member Role Status Dates Kapil Patel DO Primary Care Provider Active Visit Care Team Team Status: Inactive Member Role Status Dates Kami Olvera MD Primary Care Provider Active Start: October End: November 01, 2024Home Santos ProviderActiveStart: November 01, 2024 End: November 01, 2024 Visit Care Team Team Status: Inactive Member Role Status Dates Kapil Patel DO Primary Care Provider Active Start: November 21, 2024 End: November 21Jack Wilson ProviderActiveStart: November 21, 2024 End: November 21, 2024Vivek V Abhyankar , MDReferring ProviderActiveStart: November 21, 2024 End: November 21, 2024 Visit Care Team Team Status: Inactive Member Role Status Dates Kapil ChaseDO aayush Primary Care Provider Active Start: December 04, 2024 End: December 04jose Ryan MDAttending ProviderActiveStart: December 04, 2024 End: December 04, 2024 Visit Care Team Team Status: Inactive Member Role Status Dates Kapil Patel DO Primary Care Provider Active Start: December 24, 2024 End: December 24, 2024Trav Rodriguez ProviderActiveStart: December 24, 2024 End: December 24, 2024 Visit Care Team Team Status: Inactive Member Role Status Dates Kapil Patel DO Primary Care Provider Active Start: December 31, 2024 End: December 31, 2024Trav Rodriguez ProviderActiveStart: December 31, 2024 End: December 31, 2024 Patient Care Team Team Status: Inactive Member Role Status Dates Kapil Patel DO Primary Care Provider Active Start: 2025 End: January 01jose Ryan MDAttending ProviderActiveStart: 2025 End: 2025 Visit Care Team Team Status: Active Member Role Status Dates Kapil ChaseDO aayush Primary Care Provider Active Start: 2025 Marcelle Ryan MDAttending ProviderActiveStart: 2025 Randal Hu , MDReferring ProviderActiveStart: 2025 Chief Complaint and Reason for Visit Chief Complaint Admit Date Patient here for a 2 month f/u November 012024 11:18am HX: Hodgkins Lymphoma /Transfer of care November 21, 2024 10:54am f/u after CT December 04, 2024 2:52pm abd pain December 24, 2024 1: 17pm abd pain/d December 31, 2024 1 0:07am Follow Up 1 Month 2025 2 :56pm HX: Hodgkins Lymphoma /Transfer of care 2025 2:57pm Reason for Visit Admit Date Cancer associated pain November 01, 2024 11:18am Hodgkin's lymphoma November 01, 2024 11 :18am FPC (current) use of opiate analge sic November 01, 2024 11:18am Cancer associated pain November 21 10:54am 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 November 21, 2024 10:54am Thyroid nodule November 21, 2024 10:54am Weight loss November 21, 2024 10:54am History of gastric surgery November 10:54am Cancer associated pain December 04 025 2:52pm Chronic diarrhea December 04, 2024 2:52pm 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 December 04, 2024 2:52pm Thyroid nodule December 04, 2024 2:52pm Weight loss December 04, 2024 2:52pm History of gastric surgery November 2:52pm Cancer associated pain January 01 2:56pm Chronic diarrhea 2025 2 :56pm Copper deficiency myeloneuropathy Octobe r 2024 2:56pm 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 2025 2:56pm Thyroid nodule 2025 2 :56pm Weight loss 2025 2 :56pm History of gastric surgery 2025 2:56pm Reason for Referral Referring Provider Name Referring Provider Address Referring Provider Phone Referral Date Requested Appointment Date Referral Reason November 2181.12 - Nodular sclerosis Hodgkin lymphoma, intrathoracic lymph nodes,R63.4 - Abnormal weight loss Allergies, Adverse Reactions, Alerts Allergen Type Severity Reaction Last Updated Verified Status dihydroergotamine Allergy Unknown passed out December 31, 2024 10:11am Yes Active diphenhydramine Allergy Unknown Hives, anaphylaxis O ctober 2024 10:11am Yes Active Social History Smoking Status Status Start Date End Date Date of Observa tion Never smoked tobacco (finding) December 31, 2024 1:24pm Observation Status Observation Response Date of Response Legal Sex Female (finding) Sex Assigned At BirthFemaleOctober 1994Pregnancy StatusNOctober 2024 Family History Relationship Condition Age at Onset Recorded Date/T tiffanie mother Presence of cardiac pacemaker Unknown fatherHypertensionUnknownbrotherCoarctation of aortaUnknownCerebral palsyUnknown Ifeanyi sequenceUnknownbrotherHeart diseaseUnknownfatherHypertensionUnknown grandparentHeart diseaseUnknowngrandparentDeceasedUnknownMalignant neoplasm UnknownNeoplasm of brainUnknownmotherPresence of cardiac pacemakerUnknownHeart diseaseUnknown Problems Active Problems Medical Problem Onset Date Status Comments Hodgkin's lymphoma Unknown Active Hodgkins lymphomaUnknownActiveUnresponsive episodeUnknownActiveAbdominal pain, RUQUnknownActiveGastroparesis secondary to hemigastrectomyUnknownActiveCopper deficiency myeloneuropathyOct, 5ActiveMigraineUnknownActiveViral URI with coughUnknownActiveThyroid noduleUnknownActiveSkin infection at gastrostomy tube siteUnknownActiveCandidiasis of mouthUnknownActivePainUnknownActiveShoulder pain UnknownActiveChest wall painUnknownActiveDiarrheaUnknownActiveLymphadenopathy UnknownActiveLymphomaUnknownActiveNeutropeniaUnknownActiveNeutropenic fever UnknownActiveCancer associated painUnknownActiveCancer-related painUnknownActive Weight lossUnknownActive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UnknownActiveUnfavorableAbdominal pain, epigastricUnknownActiveLong term (current) use of o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September, 2025ActiveAMS (altered mental status)UnknownActiveChronic diarrheaUnknownActiveNonhealing surgical wound UnknownActiveSurgical wound, non healingUnknownActiveAbdominal painUnknownActive Chest painUnknownActiveNauseaUnknownActivePleurisyUnknownActiveDehydration UnknownActiveInactive/Resolved Problems Medical Problem Onset Date Status Comments Acute exacerbation of chronic abdominal pain Unknown Resolved PEG (percutaneous endoscopic gastrostomy) statusUnknownResolvedHistory of gastric surgeryUnknownResolvedHEPATICOJEJUNOSTOMYHx of cholecystectomyUnknown Resolved Medications Medication Status Dose Units Route Directions Qty Days St art Date Stop Date End Date Instructions Adherence Hydromorphone (Dilaudid) 4 mg tablet Discontinued 4 MG PO Q4H a s needed for Pain 90 May 08, 2023 May 22, 2023 11:03amHydromorphone (Dilaudid) 4 mg ryanrvFgcdjswxyemo9EOOWV7J as needed for Nzcs1832Mxvbr 2023March 2023 8:53amHydromorphone (Dilaudid) 4 mg wsaiqfDjitmymnqeje2HWQMD0Y as needed for Dsqs867Qmqlq 2023June 02, 2023 8:37amHydromorphone (Dilaudid) 4 mg aoqmzgZdacdnrzteir5IJEER3S as needed for Zjpx0246Pnwds 2023March 2023 1:30pmHydromorphone (Dilaudid) 4 mg viuicaIgmuuxuhmmqa4KEHOZ3S as needed for Ozin6457Rxklr pril 2023 4:03pmHydromorphone (Dilaudid) 4 mg uoryleNpacgqlrbvhe3HCIG Q4H as needed for Njij7956Iimkg 2023May 2023 8:02amHydromorphone (Dilaudid) 4 mg sqmcwrOicyoydburky7NUVAP9D as needed for Lzxq2284Rux 2023August 07, 2023 8:44amHydromorphone (Dilaudid) 4 mg spgltpXgloqjkymfvg7PHNMZ4P as needed for Gkwr6495Ncm 2023June 2023 10:43amHydromorphone (Dilaudid) 4 mg lrsfrjNbdfrlfhwzyj8ABIBG0S as needed for Vrqn4099Wfrn 2023June 2023 11:33amHydromorphone (Dilaudid) 4 mg zuilbdOtseucfoeafs4ZIFOY9Q as needed for Welf2112Auds 2023July 2023 2:55pmHydromorphone (Dilaudid) 4 mg jmrjnqOspzkcroagbh4TRJGU7C as needed for Evxo7077Fdcz 2023July 2023 12:57pmHydromorphone (Dilaudid) 4 mg wwahrlIzwbpnfnddkk7ZJBUI7K as needed for Hibr6405Hjpv 2023 2:17pmMorphine 15 mg tabletDiscontinued0 POThree times daily as needed for qtbq390Drwwgz 2023 3:25pm 1-2 tabs orally three times daily PRN;Morphine 15 mg czszfmEiplgpymitto3UVJafqj times daily as needed for zqee846Jnjjpt 2023 9:77kq6-2 tabs orally three times daily PRN;Morphine 15 mg gymnmbLwqfhotpaeip4SXCavnc daily as needed for sjyp4099Ojuvyo 2023September 2023 1:43ex5-3 tabs orally twice daily PRN;Morphine 15 mg geyqwiHliysiksfyjy6DVHgntn daily as needed for zgdi27925Lkdyzizig 2023September 2023 1:06dg7-7 tabs orally twice daily PRN;Morphine 15 mg odgksoJqxvqfwrnpfg9PZXprfy daily as needed for bini375 30September 2023October 2023 7:75co5-3 tabs orally twice daily PRN; Morphine 15 mg cwcypjQfgcjvfpyjoe8HKFfwag daily as needed for ewfu00428Dresjpi 2023November 2023 11:95bu6-9 tabs orally twice daily PRN;Morphine 15 mg xfiltkRjvazxcmkwcn7DPYnmbn times daily as needed for thvb97009Klxwqmvs ecember 2023 9:37zn8-9 tabs orally three times daily PRN; adjusting medication frequency please refill on 02/01/24Morphine 15 mg iddmbbNxpbfxtwdhhd9NNPhelw times daily as needed for bepd30242Ighagjzc ecember 2023 2:67qa4-6 tabs orally three times daily PRN; adjusting medication frequency please refill on 02/01/24Morphine 15 mg jxqafnJseotiyjdjwn5GKFzomn times daily as needed for htuh87852Nslpndln 2023January 2024 2:17ns8-0 tabs orally three times daily PRN;Morphine 15 mg tzysbcMfrrmzdafluu3MZVyybd times daily as needed for xkdu31086Hfcjscj 2024February 2024 4:94sk9-9 tabs orally three times daily PRN;Morphine 15 mg pxqmooFbqmkflkktcc3TGQcrvp times daily as needed for awmq39895Mgatfmaq 2024March 2024 10:52mt8-8 tabs orally three times daily PRN;Morphine 15 mg fllasbNhobequxaerq65IZJAYUADZ 4-6 HOURS as needed for xluv5166Cxlax pril 2024 12:39pmMorphine 15 mg pdunopEoohcxlbrcyi87YKSRRASKT 4-6 HOURS as needed for awey4475Fpdna pril 2024 8:33amMorphine 15 mg pbfkqaWlyvqgqlprjk64MFYCEZIIS 4-6 HOURS as needed for adpw5715Ghkxd 2024May 2024 1:14pmMorphine 15 mg njfpbcHvggcrcgtnys81IMWMXBADZ 4-6 HOURS as needed for mrhb6874Jsl 2024May 2024 2:14pmMorphine 15 mg vnpqfwNhgnyxiobhuv15SZCNBZDHK 4-6 HOURS as needed for dbiq0852Oxt 2024June 2024 8:25amMorphine 15 mg tablet Kcvlhulbrpcz51RMIVYKIGA 4-6 HOURS as needed for xikr0866Rbnf 2024June 2024 10:27amMorphine 15 mg bzgtmnJqmugrxolpuk44HRFABYUAE 4-6 HOURS as needed for fmwm08259Dspk 2024July 2024 10:09amMorphine 15 mg tabletDiscontinued 15MGPOEVERY 4-6 HOURS as needed for ipkr36518Ylji 2024July 2024 11:59amMorphine 15 mg kaikqnPfxkgpbgfnwb46FLTOCHBQF 4-6 HOURS as needed for pain 31107Ffrv 2024July 2024 8:38amMorphine 15 mg uytjldFdhmntctbhbw31AMJN Every 4 hours as needed for mfqt6859Dfoq , 2024July 2024 11:11am Morphine 15 mg okdlveBkiaxhuxrgmv18ZINZDaoxn 4 hours as needed for drht0225Kvsa , 2024July 2024 9:17amMorphine 15 mg soahvwCersrsiifruv45XHUPGEYAM 4-6 HOURS as needed for ldcm9170Mrkg , 2024July 2024 4:20pmMorphine 30 mg tablet extended tmeamyzGbsolzclbnza42ECHDUetmm 12 astmb9708Pgjr , 2024 11:39amOxycodone 10 mg djfcanEehxlotqikqf04SMQMLfmwd 8 hours as needed for nwvw491Qspwth 2024 9:02amOxycodone 10 mg tablet Uepyfwvehlcl43YADMMiids 8 hours as needed for byqv650Mwbjsg 2024 1:20pmOxycodone 10 mg odfkmhTxbptcrxhfni19OWWGOqyxp 8 hours as needed for gzbg1671Judirt 2024 11:40amHydromorphone 2 mg tablet Athztkfytgmf9BQG1O as needed for uuil5347Chhgyp 2024 11:35hn4-8 tablets q 6 hours prn orally every 6 hours PRN; oxycodone not effective, rotating to HydromorphoneHydromorphone 2 mg tablet Hecqfmlqklix5TPE8H as needed for fwwk6286Evgmjg 2024 9:05th7-2 tablets orally every 6 hours PRN;Hydromorphone 2 mg tabletDiscontinued 0POQ6H as needed for lalg9854Xaygxk , 2024 10:58ma0-7 tablets orally every 6 hours PRN;Hydromorphone 2 mg urxrqhTvxbohncvado6PQL6K as needed for vjvk59873Cxyuve 2024 10:44zw3-7 tablets orally every 6 hours PRN;Hydromorphone 2 mg kawljoYjxnavjejdmj1YYJ2N as needed for pain 74380Pxfzmf 2024September 2024 7:57du6-8 tablets orally every 6 hours PRN;Hydromorphone 2 mg pfbyrsKgqpgarailxm4KWM1O as needed for jswc20486Ochduzfkg 2024September 2024 3:37ix0-7 tablets orally every 6 hours PRN; Hydromorphone 2 mg zedkqwJwvfvuqmbsxe4NJR6C as needed for gmwy53559Cdebfzeem 2024October 2024 8:60je8-5 tablets orally every 6 hours PRN; Hydromorphone 2 mg lbqdqtOlxlrvpytwwz1EIB3X as needed for favc91752Acljftj 2024October 2024 8:67vp2-3 tablets orally every 6 hours PRN;Hydromorphone 2 mg rdldjoOvppjp1VXA3L as needed for tigx07207Lypqfmp -2 tablets orally every 6 hours PRN;UnknownAtenolol 25 mg vwwryoAusyyaymzznc93NSHJTmdip dailyFebruary 2017 1:00amJanuary 2018 5:04pmTopiramate (Topamax) 100 mg TgouspYedlbkfvzqjo709TIGZChioz dailyFebruary 2017 1:00amJanuary 2018 5:04pmVortioxetine (Trintellix) 20 mg xtoxxbUzgialckepxa01IFKNBrqidIvemttxw 2017 1:00amJanuary 2018 5:04pmSuvorexant 20 mg zfhmqsAstgprkazgow75OP PODaily at bedtimeFebruary 2017 1:00amMa2021 4:45pmOndansetron Hcl (Zofran) 4 mg kgwkqzKsrhscblrnrb5NXLLD6N681Xczlmayo 2017 1:00amFebruary 2017 1:00amFebruary 2017 1:04amVenlafaxine (Effexor Xr) 75 mg Capsule,Extended Release 42vdBlefbcvbcrnz939SGRJKdeusMmqcwvi 2018 1:00am December 17, 2021 3:05pmErenumab-Aooe (Aimovig Autoinjector) 70 mg/mL Auto-YyxtqbrfNhanghvecpru67NFIBXUKAdigpd monthJanuary 2018 1:00amJune 2019 8:47amPromethazine 25 mg hivrcpMgrfqrwywzuf53ODNRQ0V as needed for nausea and dyilqbiv3Nkmrnvj 2018 1:00amJanuary 2018 12:04amOndansetron Hcl (Zofran) 4 mg ygvnjxNxytllrefaip8WRTLE7N as needed for nausea and September 16, 2020 12:00amJune 2021 10:39pmNaproxen (Naprosyn) 500 mg tablet Pcmgiyyoenma286WWNVYyaez daily as needed for eaml04Loifjirv2020 5:13pm August 24, 2021 10:39pmTramadol (Ultram) 50 mg ukmxktTjbdhzwnodrr92VYYBH0E as needed for xqmu723Axn2021 12:00amMay 2021 4:45pm1/2 - 1 tab po q 6 hours prn painNystatin 100,000 unit/mL lvdpptdxsiCqwmkpcczmou1137763NNLEJORDQT Four times eombn98NfiAugust 14, 2021 12:00amJune 2021 10:39pmadminister 1/2 of dose in each side of the mouthOxycodone 5 mg/5 mL eurovpueHbglhbxksdoi9NKGWNi Directed as needed for PainJune 2021 12:00amJune 2021 3:47amZaleplon 10 mg ZhkkjslPoprpjcsptmv77MMZUGoznb at bedtimeJun2021 12:00amFebruary 2023 3:35pmProchlorperazine Maleate (Compazine) 10 mg OlireuHdiesohnhyww89 BLYWQ6I as needed for VomitingJun2021 12:00amJanuary 2022 1:04pm Acyclovir 400 mg TmdkovLxcbqidtiffj154ZYIPZwesz dailyJune 2021 12:00am November 28, 2021 8:17pmSulfamethoxazole-Trimethoprim (Bactrim Ds) 800-160 mg RkrkewXqwadfzxlraa0FHNMUYajjr dailyJune 2021 12:00amSeptember 2021 8:16pmAlprazolam 0.5 mg TabletDiscontinued0.5MGPODaily at bedtime as needed for InsomniaJune 2021 12:00amSeptember 2021 3:04pmOxycodone-Acetaminophen (Percocet) 5-325 mg tabletDiscontinued1 - 2TABPOEvery 6 hours as needed for pain 153June 2021June 2021 5:09pmIbuprofen 600 mg fxpoihNcijimeornyo430SO POQ8H as needed for msrz58Tzzt 2021 12:00amSeptember 2021 3:04pm Cephalexin 500 mg xmdwmqnXuxlgibzatpq113NHEKW91I4822Tzco 2021 12:00am November 28, 2021 8:17pmLoratadine (Claritin) 10 mg WafamvJihvmcyunapf44FSJT DailySeptember 2021 12:00amSeptember 2021 3:04pmHydrocodone- Acetaminophen 5-325 mg wtumesLgrdoizktdzy8XSBLGKPTDZ 4-6 HOURS as needed for rtan547Muzyotmr 2021February 2023 9:24amVenlafaxine 225 mg tablet extended release 64nrKwnhky956NLOYQieuuHshxryr 2022 1:00amUnknown Galcanezumab-Gnlm (Emgality Syringe) 120 mg/mL ppzwnonKmxdxt327ENGCSABMtpudu monthJanuary 2022 1:00amUnknownCyclobenzaprine 10 mg dsungqDxzivduxgywf97 - 12MGPODaily at bedtime as needed for SleepJanuary 2022 1:00amFebruary 2023 3:32pmCephalexin (Keflex) 500 mg jfewtolNplmosjvaryp860UTURX9X890 May 05, 2019 1:00amJune 2019 8:97yaDjeopkeughrDeznruwwtiht456WZSL DailyJune 2019 12:00amMa2021 6:51amZaleplon 10 mg Capsule Npyhwsmsbgqp69KRNEEmgongbVoeh 2019 12:00amJune 2021 10:39pm Galcanezumab-Gnlm (Emgality Syringe) 120 mg/mL syringeDiscontinued0.ROUTE .COMPLEXJune 2019 12:00amSeptember 2021 3:04pmmg subcutaneously once a monthBupropion Hcl 100 mg TikemaUoqcjo466GUKYUeyfv dailyMay 2021 12:00am UnknownMorphine 15 mg tablet extended ymppnqzUspnemwldbcd52KFCETdiaa daily as needed for PainJune 2021 12:00amFebruary 2023 3:35pmOxycodone 10 mg fptxqnFtjscvcxqnfd31OORSRv Directed as needed for PainJune 2021 12:00am December 17, 2021 3:05pmOndansetron Hcl 4 mg YnyredIdgevksupsin9AZNRM3E as needed for NauseaJune 2021 12:00amOctober 2024 3:41pmNystatin (Mycostatin) 100,000 unit/mL YjqacuvduiLjtkcgzoicym4YIZZOWBPHpbc times daily December 17, 2021 12:00amJanuary 2022 1:04pmadminister 1/2 of dose in each side of the mouthPolyethylene Glycol 3350 17 gram Powder In Packet Jpqmdhbuclvx46GJANXztjx as needed for ConstipationSeptember 2021 12:00am May 02, 2023 3:35pmSennosides-Docusate Sodium (Senna-S) 8.6-50 mg Tablet Tasmoklaivcr4LBI-LUPNDBfhtn dailySeptember 2021 12:00amFebruary 2023 3:35pmPerflutren Lipid Microspheres 1.1 mg/mL SuspensionDiscontinuedMGIV December 17, 2021 12:00amJanuary 2022 1:04pmGabapentin (Neurontin) 300 mg EnqgondJgypbfzfwzhl264SXELSsdedMiiawsewq 2021 12:00amFebruary 2023 3:33pmHydromorphone (Dilaudid) 4 mg PulwxsImzrnfcuyerd3IFLDW0U as needed for PainSeptember 2021 12:00amFebruary 2023 1:47pmOlanzapine 5 mg Tablet,LymnwlmyvmrsdsTgblmabmsvrt8BKTOEepgc at bedtimeSeptember 2021 12:00amJanuary 2022 1:04pmNaloxone 4 mg/actuation [place],Non-AerosolActive4 YYOQMAWHCDAGH0U as needed for Opiate ReversalSeptember 2021 12:00amspray 1 dose into ONE nostril; alternate nostrils w each dose until help arrivesUnknown Pantoprazole 40 mg tablet,delayed release (DR/EC)Kaiundcqrpjs56RRURVqqvuUffprqn 2024 12:00amOctober 2024 3:50pmZolpidem 10 mg vhxmqtOslvyg65GGKUCafxr at bedtime as needed for insomniaOctober 2024 12:00amUnknownMetoclopramide Hcl 10 mg nquwctObhfjrktlfkz37BMUEQayea times dailyOctober 2024 12:00am 2025 3:04pmOndansetron Hcl 4 mg uvhlgdYxtkyf0OLZFwizup 6 to 8 hours as needed for nausea and vomitingOctober 2024 12:00amUnknown Polyethylene Glycol 3350 (Miralax) 17 gram/dose powderActive8.5GMPOTwice daily 119October 2024 12:00amUnknownHydromorphone (Dilaudid) 4 mg tablet Ibiovteymcns9OEWWC5U as needed for Jojp9206Fswlx pril 2023 4:36pmHydromorphone (Dilaudid) 4 mg bjpjivXywaaetjlpba3CRAVT2I as needed for Mvrz2122Dett 2023June 2023 10:11amMorphine 15 mg ztudhsOnylmdgfneop04 MGPOEVERY 4-6 HOURS as needed for rqpg6716Pxiky 2024 8:20amZolpidem (Ambien) 5 mg uvyvztOatzbbxldlcl0GRCERmlux at bedtimeSeptember 2024 12:00amOctober 2024 3:43pmLinaclotide (Linzess) 72 mcg capsule Jgrenankokzp01FIERYUnibpKkgvouaag 2024 12:00amOctober 2024 3:49pm Copper Gluconate 2 mg genpamUqjirs0FYHFSigyn owppp9965Bphmerqbr 17th, 2025 12:00amUnknownLinaclotide (Linzess) 145 mcg kusnnnmVirzrt456XBCDDYhekuImixcfo 2024 12:86upMclhdxoUjepsljekrupgzq-Tl-Sagecszlvxi (Capmist Dm) 60-15-400 mg dbkmnjUzfcjvzgyqqc2JCZPDIXHVL 4-6 HOURS as needed for cold jhdlkjrd09Ucyj 2023 12:00amSeptember 2024 11:01amdo not exceed 4 doses per 24 hrs Morphine 15 mg nddzynSboomfvwqfds3XBBibqz daily as needed for cpzq0899Bgkcht ugu2023 2:41dr2-2 tabs orally twice daily PRN;Morphine 15 mg oexlmnSknnqsoegnjb47PVIOHqzwl 6 hours as needed for fczc75671Txtgt 2024June 14, 2024 2:46pmMorphine 15 mg fvxjbeKjsnedvopfrv61ZZRZOSEZB 4-6 HOURS as needed for tpob13888Hczf 2024June 2024 1:01pm Medical Equipment Device Date Implanted Date Explanted Device Deta ils Vascular port/catheter August 02, 2021 April 06, ANGELO: [id number] Issuing Agency: [employer] Device Id: [id number] Expiration Date: 2022-06-17 Lot Number: [id number] Procedures Procedure Date Performed Status CT chest w con November 29, 2024 8:40am comp leted CT soft tissue neck w con November 29, 2024 8 :40am completed CT abdomen pelvis w con December 24, 2024 1:37pm completed XR chest 2V* December 24, 2024 6:07pm complet ed CT angio chest PE protocol December 24, 2024 6:5 8pm completed Relevant Diagnostic Tests and/or Laboratory Data Laboratory Results Test Collection Date/Time Result Date/Time Result Interpretation Reference Range Result Comment Performing Site Corrected White Blood Count December 24, 2024 1:35pm December 24, 2024 2:03pm 6.2 10*3/uL 3.8-11.6[facility] [id number] [address] [facility] 85842Bvjrclmwg White Blood CountOctober 2024 9:43amOctober 2024 10:21am7.3 10*3/uL3.8-11.6FC[facility] [id number] [address] [place] [address] 51052Yripuogqb White Blood CountOctober 2024 11:50amOctober 2024 12:18pm8.5 10*3/uL3.8-11.6FC[facility] [id number] [address] [place] [address] 40246Pzlqqvuwctd WBC CountOctober 2024 1:35pmOctober 2024 2:03pm6.2 10*3/uL3.8-11.[address] [place] [address] Ctr [id number] [address] [place] [address] 39127Hrhkinsvkdd WBC CountOctober 2024 9:43amOctober 2024 10:21am7.3 10*3/uL3.8-11.6FC[facility] [id number] [address] [place] [address] 72329Ygclknwkejy WBC CountOctober 2024 11:50amOctober 2024 12:18pm8.5 10*3/uL3.8-11.[address] [place] [address] Ctr [id number] [address] [place] [address] 99649Cbm Blood CountOctober 2024 1:35pmOctober 2024 2:03pm 5.03 10*6/uLAbove high normal3.60-5.00[facility] [id number] [address] [place] [address] 14256Xhv Blood CountOctober 2024 9:43amOctober 2024 10:21am4.61 10*6/uL3.60-5.00[facility] [id number] [address] [place] [address] 39288Sdi Blood CountOctober 2024 11:50amOctober 2024 12:18pm5.21 10*6/uLAbove high normal3.60-5.00[facility] [id number] [address] [facility] 80147DcmrenzoqbRugflou 2024 1:35pmOctober 2024 2:03pm14.3 g/dL11.8-15.4FC[facility] [id number] [address] [facility] 69880EhgxauqxctGnssbpk 2024 9:43amOctober 2024 10:21am13.0 g/dL11.8-15.4FC[facility] [id number] [address] [place] [address] 25801KklkhmebwzOojotmo 2024 11:50amOctober 2024 12:18pm 14.6 g/dL11.8-15.4FC[facility] [id number] [address] [facility] 76820LbncfgaillCupsuzr 2024 1:35pmOctober 2024 2:03pm41.9 %34.0-46.4FCinc[facility] [id number] [address] [place] [address] 60900TrrhszrusoGqfephu 2024 9:43amOctober 2024 10:21am38.2 %34.0-46.4FCincinnati [facility] [id number] [address] [place] [address] 00804NlxbwpwchwWfsukop 2024 11:50amOctober 2024 12:18pm 42.4 %34.0-46.4FCincinnati [facility] [id number] [address] [facility] 77968Tuag Corpuscular VolumeOctober 2024 1:35pmOctober 2024 2:03pm83.4 vV02-186Pwn[address] [place] [address] Ctr [id number] [address] [place] [address] 93478Qbig Corpuscular VolumeOctober 2024 9:43amOctober 2024 10:21am82.9 dA09-800RbamusdawOhiohealth Ctr [id number] [address] [place] [address] 56600Ernf Corpuscular VolumeOctober 2024 11:50amOctober 2024 12:18pm81.3 tQ73-218TwbgzxofvOhiohealth Ctr [id number] [address] [facility] 87216Hmko Corpuscular HemoglobinOctober 2024 1:35pmOctober 2024 2:03pm28.4 pg24.7-34.3FCincinnati [facility] [id number] [address] [facility] 87504Bllm Corpuscular HemoglobinOctober 2024 9:43amOctober 2024 10:21am28.2 pg24.7-34.3FCincinnati [facility] [id number] [address] [facility] [id number] Corpuscular HemoglobinOctober 2024 11:50amOctober 2024 12:18pm28.1 pg24.7-34.3FC[facility] [id number] 1[address] [facility] [id number] Corpuscular Hemoglobin ConcentOctober 2024 1:35pm December 24, 2024 2:03pm34.0 g/dL32.0-35.0[facility] [id number] [address] [place] [id number] Corpuscular Hemoglobin ConcentOctober 2024 9:43am December 26, 2024 10:21am34.0 g/dL32.0-35.0[facility] [id number] [address] [place] [address] [id number] Corpuscular Hemoglobin ConcentOctober 2024 11:50am December 31, 2024 12:18pm34.5 g/dL32.0-35.0[facility] [id number] [address] [place] [address] [id number] Cell Distribution WidthOctober 2024 1:35pmOctober 2024 2:03pm12.9 %11.9-15.3FC[facility] [id number] 1111 [facility] 05637Opr Cell Distribution WidthOctober 2024 9:43amOctober 2024 10:21am12.8 %11.9-15.3FC[facility] [id number] 1111 [facility] 51149Jsw Cell Distribution WidthOctober 2024 11:50amOctober 2024 12:18pm13.0 %11.9-15.3FC[facility] [id number] 1111 [facility] 61656Pyumynce CountOctober 2024 1:35pmOctober 2024 2:03pm 353 10*3/wA479-734SoknlkdsvOhiohealth [facility]tr [id number] 1111 [facility] 40255Tqurrdqp CountOctober 2024 9:43amOctober 2024 10:21am 255 10*3/rV028-361YlukwalafOhiohealth Ctr [id number] 1111 [facility] 42958Nundkkbd CountOctober 2024 11:50amOctober 2024 12:41fc451 10*3/dQ322-363XbslwztfnOhiohealth Ctr [id number] 1111 [facility] 12820Oaaj Platelet VolumeOctober 2024 1:35pmOctober 2024 2:03pm8.0 fL6.3-10.7FCinc[facility] [id number] [address] [place] [address] 96971Kghe Platelet VolumeOctober 2024 9:43amOctober 2024 10:21am8.2 fL6.3-10.7FCinc[facility] [id number] [address] [place] [address] 83437Frwx Platelet VolumeOctober 2024 11:50amOctober 2024 12:18pm8.3 fL6.3-10.7FCinc[facility] [id number] 1111 [facility] 86630Rqkggpno Distribution WidthOctober 2024 1:35pmOctober 2024 2:03pm15.94 %0.00-20.00[facility] [id number] [address] [place] [address] 73219Djzsztvg Distribution WidthOctober 2024 11:50amOctober 2024 12:18pm15.65 %0.00-20.00[facility] [id number] 1111 [facility] 66466Guctswgvczx (%) (Auto)December 24, 2024 1:35pmOctober 2024 2:03pm46.4 %.[facility] [id number] 1111 [facility] [place] [address]Ucftrunojex (%) (Auto)December 26, 2024 9:43amOctober 2024 10:21am66.5 %.[facility] [id number] 1111 [facility] 61359Pxmwewqubfz (%) (Auto)December 31, 2024 11:50amOctober 2024 12:18pm68.0 %.[facility] [id number] 1111 [facility] 52797Kukclbzvkdn (%) (Auto)December 24, 2024 1:35pmOctober 2024 2:03pm42.3 %.[facility] [id number] 1111 [facility] 90493Vzwsemopsnf (%) (Auto)December 26, 2024 9:43amOctober 2024 10:21am22.5 %.[facility] [id number] 1111 [facility] 63367Ttoeipffclc (%) (Auto)December 31, 2024 11:50amOctober 2024 12:18pm23.8 %.[facility] [id number] 1111 [facility] 34352Dgoyrzhql (%) (Auto)December 24, 2024 1:35pmOctober 2024 2:03pm8.5 %.[facility] [id number] 1111 [facility] 16431Wlanlkypy (%) (Auto)December 26, 2024 9:43amOctober 2024 10:21am9.1 %.[facility] [id number] 1111 [facility] 19786Byflnpzaf (%) (Auto)December 31, 2024 11:50amOctober 2024 12:18pm7.3 %.[facility] [id number] 1111 [facility] 57867Qljclcqrlhv (%) (Auto)December 24, 2024 1:35pmOctober 2024 2:03pm1.9 %.[facility] [id number] 1111 [facility] [place] [address]Eoeyxztdizk (%) (Auto)December 26, 2024 9:43amOctober 2024 10:21am1.4 %.[facility] [id number] 1111 [facility] 04535Gbudeatiaax (%) (Auto)December 31, 2024 11:50amOctober 2024 12:18pm0.4 %.[facility] [id number] 1111 [facility] 92718Gtvtzgqye (%) (Auto)December 24, 2024 1:35pmOctober 2024 2:03pm0.9 %.[facility] [id number] 1111 [facility] 10196Cropjifjz (%) (Auto)December 26, 2024 9:43amOctober 2024 10:21am0.5 %.[facility] [id number] 1111 [facility] 50056Efluafwkm (%) (Auto)December 31, 2024 11:50amOctober 2024 12:18pm0.5 %.[facility] [id number] 1111 [facility] 76047Puuxafuzb RBC Relative Count (auto)December 24, 2024 1:35pm December 24, 2024 2:03pm0.3 /100{WBC}0-0.5FC[facility] [id number] 1111 [facility] [place] [address]Dhzvzojaq RBC Relative Count (auto)December 26, 2024 9:43am December 26, 2024 10:21am0.1 /100{WBC}0-0.5FC[facility] [id number] 1111 [facility] 30636Abxzvonfa RBC Relative Count (auto)December 31, 2024 11:50am December 31, 2024 12:18pm0.1 /100{WBC}0-0.5FC[facility] [id number] 1111 [facility] 64903Wvixbarqyep # (Auto)December 24, 2024 1:35pmOctober 2024 2:03pm2.9 10*3/uL1.8-7.7FC[facility] [id number] 1111 [facility] 55284Zgcqeejejom # (Auto)December 26, 2024 9:43amOctober 2024 10:21am4.8 10*3/uL1.8-7.7FC[facility] [id number] 1111 [facility] 07883Qhjgoxzmhcj # (Auto)December 31, 2024 11:50amOctober 2024 12:18pm5.8 10*3/uL1.8-7.7FC[facility] [id number] 1111 [facility] 65490Iiwdvkiygvc # (Auto)December 24, 2024 1:35pmOctober 2024 2:03pm2.6 10*3/uL1.00-4.8[facility] [id number] 1111 [facility] 66198Rzpkeiiyisx # (Auto)December 26, 2024 9:43amOctober 2024 10:21am1.6 10*3/uL1.00-4.8[facility] [id number] 1111 [facility] 17152Subizxztkcl # (Auto)December 31, 2024 11:50amOctober 2024 12:18pm2.0 10*3/uL1.00-4.8[facility] [id number] 1111 [facility] 08423Shferekpz # (Auto)December 24, 2024 1:35pmOctober 2024 2:03pm0.5 10*3/uL0.0-0.8[facility] [id number] 1111 [facility] 56539Pixpfgack # (Auto)December 26, 2024 9:43amOctober 2024 10:21am0.7 10*3/uL0.0-0.8[facility] [id number] 1111 [facility] 53651Qzpxzgmzp # (Auto)December 31, 2024 11:50amOctober 2024 12:18pm0.6 10*3/uL0.0-0.8[facility] [id number] 1111 [facility] 31587Xdvszxqckse # (Auto)December 24, 2024 1:35pmOctober 2024 2:03pm0.1 10*3/uL0.0-0.45[facility] [id number] 1111 [facility] 88066Aimbykdqiwy # (Auto)December 26, 2024 9:43amOctober 2024 10:21am0.1 10*3/uL0.0-0.45[facility] [id number] 1111 [facility] 50160Ibmaejezujb # (Auto)December 31, 2024 11:50amOctober 2024 12:18pm0.0 10*3/uL0.0-0.45[facility] [id number] [address] [place] [address] 83186Ofkrfpmce # (Auto)December 24, 2024 1:35pmOctober 2024 2:03pm0.1 10*3/uL0.0-0.2FCinc[facility] [id number] 1111 [facility] 89999Fcyzrbvbt # (Auto)December 26, 2024 9:43amOctober 2024 10:21am0.0 10*3/uL0.0-0.2FC[facility] [id number] 1111 [facility] 78546Agafsvgbc # (Auto)December 31, 2024 11:50amOctober 2024 12:18pm0.0 10*3/uL0.0-0.2FC[facility] [id number] 1111 [facility] 47301Fdpgk ColorOctober 2024 1:36pmOctober 2024 2:22pm YellowYelUniversity [facility] [id number] [address] [place] [address] 80630Zmqtk ColorOctober 2024 11:06amOctober 2024 11:39am YellowYelUniversity [facility]als [facility] [id number] [address] [place] [address] 65729Dyvwr AppearanceOctober 2024 1:36pmOctober 2024 2:22pmClearClearOhiohealth Ctr [id number] 1111 [facility] 32631Esxhb AppearanceOctober 2024 11:06amOctober 2024 11:39amClearClearOhiohealth Ctr [id number] [address] [place] [address] 22770Ddcxd Specific GravityOctober 2024 1:36pmOctober 2024 2:22pm1.0251.001-1.030[facility] [id number] [address] [place] [address] 70709Jycmr Specific GravityOctober 2024 11:06amOctober 2024 11:39am1.031Above high normal1.001-1.030[facility] [id number] [address] [place] [address] 22194Lntvr pHOctober 2024 1:36pmOctober 2024 2:22pm5.0 5.0-9.0[facility] [id number] [address] [place] [address] 21989Yqhzv pHOctober 2024 11:06amOctober 2024 11:39am5.5 5.0-9.0[facility] [id number] [address] [place] [address] 26583Hvxsj Leukocyte EsteraseOctober 2024 1:36pmOctober 2024 2:22pmNegativeNegativeOhiohealth Ctr [id number] [address] [place] [address] 26547Zbfbd Leukocyte EsteraseOctober 2024 11:06amOctober 2024 11:39am2+Above high normalNegativeOhiohealth Ctr [id number] [address] [place] [address] 19027Rqgca NitriteOctober 2024 1:36pmOctober 2024 2:22pm NegativeNegativeFirelands [facility] [id number] 1111 [facility] 50159Flcrs NitriteOctober 2024 11:06amOctober 2024 11:39amNegativeNegativeFirelands [facility] [id number] 1111 [facility] 88158Kvevl ProteinOctober 2024 1:36pmOctober 2024 2:22pm Negative mg/dLNegativeFirACMC Healthcare [facility] [id number] 1111 [facility] 40361Wbylo ProteinOctober 2024 11:06amOctober 2024 11:39amNegative mg/dLNegativeFirACMC Healthcare System [facility] [id number] 1111 [facility] 03908Zvrhz Glucose (UA)December 24, 2024 1:36pmOctober 2024 2:22pmNormal mg/dLNormalOhiohealth Ctr [id number] 1111 [facility] 84396Ksrxf Glucose (UA)December 31, 2024 11:06amOctober 2024 11:39amNormal mg/dLNormalFirACMC Healthcare System [facility] [id number] 1111 [facility] 15885Poljs KetonesOctober 2024 1:36pmOctober 2024 2:22pm NegativeNegativeOhiohealth Ctr [id number] 1111 [facility] 00852Bkkgr KetonesOctober 2024 11:06amOctober 2024 11:39amNegativeNegativeFirACMC Healthcare System [facility] [id number] 1111 [facility] 36603Njajm UrobilinogenOctober 2024 1:36pmOctober 2024 2:22pmNormal mg/dLNormalOhiohealth Ctr [id number] 1111 [facility] 12861Ksaip UrobilinogenOctober 2024 11:06amOctober 2024 11:39amNormal mg/dLNormalFirACMC [facility] [id number] 1111 [facility] 54428Drths BilirubinOctober 2024 1:36pmOctober 2024 2:22pm NegativeNegativeOhiohealth [facility] [id number] 1111 [facility] 78563Ovaau BilirubinOctober 2024 11:06amOctober 2024 11:39amNegativeNegativeOhiohealth [facility] [id number] 1111 [facility] 21545Yphen Occult BloodOctober 2024 1:36pmOctober 2024 2:22pmNegativeNegativeOhiohealth Ctr [id number] 1111 [facility] 34980Pkvxt Occult BloodOctober 2024 11:06amOctober 2024 11:39amTraceAbove high normalNegativeOhiohealth Ctr [id number] 1111 [facility] 34882Rppfs RBCOctober 2024 11:06amOctober 2024 11:47am1- 2 [HPF]0-4FCincinnati [facility] [id number] 1111 [facility] 69606Wzove WBCOctober 2024 11:06amOctober 2024 11:47am3- 4 [HPF]0-4FCinc[facility] [id number] 1111 [facility] 12359Gpxtz Squamous Epithelial CellsOctober 2024 11:06am December 31, 2024 11:93il3-7 [HPF]Above high normal0-[facility] [id number] 1111 [facility] 92343Mnrkw BacteriaOctober 2024 11:06amOctober 2024 11:47amNone seen [HPF]None SeenOhiohealth Ctr [id number] 1111 [facility] 98416Kybae Hyaline CastsOctober 2024 11:06amOctober 2024 11:47qc9-0 [LPF]0-8[facility] [id number] 1111 [facility] 87218Tdlfe MucusOctober 2024 11:06amOctober 2024 11:47am 4+ [LPF]Abnormal (applies to non-numeric results)[facility] [id number] 1[address] [facility] 69846Nshgy HCG, QualitativeOctober 2024 1:36pmOctober 2024 2:20pmNegativeOhiohealth [facility] [id number] 1111 [facility] 32598Ibfqp HCG, QualitativeOctober 2024 11:06amOctober 2024 11:39amNegativeOhiohealth Ctr [id number] [address] [place] [address] 29061Xgminxy LevelOctober 2024 1:35pmOctober 2024 2:25pm 121 mg/dLAbove high wblujz84-316AOV recommended reference rangeRandom Glucose Reference Range is dependent on time and content of last meal. Glucose of more than 200 mg/dL in a nonstressed, ambulatory subject supports the diagnosisof Diabetes Mellitus.[facility] [id number] 1111 [facility] 59525Lmifagn LevelOctober 2024 11:50amOctober 2024 12:36pm91 mg/bB73-353RFY recommended reference rangeRandom Glucose Reference Range is dependent on time and content of last meal. Glucose of more than 200 mg/dL in a nonstressed, ambulatory subject supports the diagnosisof Diabetes Mellitus.[facility] [id number] [address] [place] [address] 56394Ekmbd Urea NitrogenOctober 2024 1:35pmOctober 2024 2:25pm10 mg/dL10-11[facility] [id number] [address] [place] [address] 89980Hbfzj Urea NitrogenOctober 2024 11:50amOctober 2024 12:36pm18 mg/dL10-11[facility] [id number] [address] [place] [address] 53079IrgiknyxkqQpcmfhy 2024 1:35pmOctober 2024 2:25pm0.86 mg/dL0.60-1.20[facility] [id number] [address] [place] [address] 08042IrjbjqfohxBmehvib 2024 11:50amOctober 2024 12:36pm 0.77 mg/dL0.60-1.20[facility] [id number] 1[address] [facility] 50779Jlsgwrwrx GFR (CKD-EPI)December 24, 2024 1:35pmOctober 2024 2:25pm> 60.0 mL/MinOhiohealth Ctr [id number] 1111 [facility] 33740Rweelbiib GFR (CKD-EPI)December 31, 2024 11:50amOctober 2024 12:36pm> 60.0 mL/MinOhiohealth Ctr [id number] 1111 [facility] 24594Mduiud LevelOctober 2024 1:35pmOctober 2024 2:72hi606 mmol/T642-749HgqvwaqjqOhiohealth Ctr [id number] 1[address] [facility] 82444Ytqdki LevelOctober 2024 11:50amOctober 2024 12:70or365 mmol/L317-845JtbxgbbzaOhiohealth Ctr [id number] 1[address] [facility] 37861Imnujhwbh LevelOctober 2024 1:35pmOctober 2024 2:25pm 4.0 mmol/L3.5-5.1FCinc[facility] [id number] 1111 [facility] 75619Vppoqwrfs LevelOctober 2024 11:50amOctober 2024 12:36pm3.6 mmol/L3.5-5.1FCinc[facility] [id number] 1111 [facility] 93096Yftcwkme LevelOctober 2024 1:35pmOctober 2024 2:25pm 102 mmol/H55-453KwzrjgofbOhiohealth Ctr [id number] 1[address] [facility] 38255Hbbprqgj LevelOctober 2024 11:50amOctober 2024 12:37qh824 mmol/Q36-905XteblbsfqOhiohealth Ctr [id number] 1[address] [facility] 20334Qrkido Dioxide LevelOctober 2024 1:35pmOctober 2024 2:25pm27.9 mmol/L21.0-31.0[facility] [id number] 1[address] [facility] 90777Eqkpwe Dioxide LevelOctober 2024 11:50amOctober 2024 12:36pm27.4 mmol/L21.0-31.0[facility] [id number] 1[address] [facility] 90341Sqbti GapOctober 2024 1:35pmOctober 2024 2:25pm10.1 mEq/L6.0-15.0[facility] [id number] 1[address] [facility] 48685Kmmzs GapOctober 2024 11:50amOctober 2024 12:36pm 13.2 mEq/L6.0-15.0[facility] [id number] 1[address] [facility] 84679Vregadm LevelOctober 2024 1:35pmOctober 2024 2:25pm 9.1 mg/dL8.6-10.3FC[facility] [id number] 1[address] [facility] 64685Jxluvwg LevelOctober 2024 11:50amOctober 2024 12:36pm10.3 mg/dL8.6-10.3FC[facility] [id number] 1[address] [facility] 34034Lqqge ProteinOctober 2024 1:35pmOctober 2024 2:25pm 7.4 g/dL6.4-8.9[facility] [id number] 1[address] [facility] 34807Gfpiq ProteinOctober 2024 11:50amOctober 2024 12:36pm8.5 g/dL6.4-8.9[facility] [id number] 1[address] [facility] 55759VnxvvamKpmmkjj 2024 1:35pmOctober 2024 2:25pm4.7 g/dL 3.5-5.7FC[facility] [id number] 1[address] [facility] 55220SkzjdwoNzjprwu 2024 11:50amOctober 2024 12:36pm5.3 g/dL3.5-5.7FC[facility] [id number] 1[address] [facility] 57788SgcfgvgqTmfscay 2024 1:35pmOctober 2024 2:25pm2.7 g/dLOhiohealth Ctr [id number] [address] [place] [address] 06902NbrfudrfZwsjwxn 2024 11:50amOctober 2024 12:36pm3.2 g/dLOhiohealth Ctr [id number] 1111 [facility] 79231Lnwxpne/Globulin RatioOctober 2024 1:35pmOctober 2024 2:25pm1.7FC[facility] [id number] [address] [place] [address] 10060Nozpacn/Globulin RatioOctober 2024 11:50amOctober 2024 12:36pm1.7FCinc[facility] [id number] [address] [place] [address] 64472Ianyu BilirubinOctober 2024 1:35pmOctober 2024 2:25pm 0.3 mg/dL0.3-1.0[facility] [id number] [address] [place] [address] 01376Aimax BilirubinOctober 2024 11:50amOctober 2024 12:36pm0.6 mg/dL0.3-1.0[facility] [id number] 1[address] [facility] 22054Tphung BilirubinOctober 2024 1:35pmOctober 2024 2:25pm0.00 mg/dLBelow low normal0.03-0.18If the DBIL is less than 0.1, IBIL is not able to becalculated.[facility] [id number] 1[address] [facility] 92782Lpylfa BilirubinOctober 2024 11:50amOctober 2024 12:36pm0.00 mg/dLBelow low normal0.03-0.18If the DBIL is less than 0.1, IBIL is not able to becalculated.[facility] [id number] 1[address] [facility] 80656Qucdpxzk BilirubinOctober 2024 1:35pmOctober 2024 2:25pm0.3 mg/dLOhiohealth [facility] [id number] 1[address] [facility] 83730Cknedvvq BilirubinOctober 2024 11:50amOctober 2024 12:36pm0.6 mg/dLOhiohealth [facility] [id number] 1[address] [facility] 73867Cxxrmarmf Amino Transf (AST/SGOT)December 24, 2024 1:35pm December 24, 2024 2:25pm15 U/D64-37WbzscvnpcOhiohealth Ctr [id number] 1111 [facility] 77856Yhgdzikdm Amino Transf (AST/SGOT)December 31, 2024 11:50am December 31, 2024 12:36pm12 U/LBelow low yhvcfk40-30LvxebxbzqOhiohealth Ctr [id number] [address] [place] [address] 00375Yfjtlue Aminotransferase (ALT/SGPT)December 24, 2024 1:35pm December 24, 2024 2:25pm10 U/L7-52[facility] [id number] [address] [place] [address] 01552Sezwdjp Aminotransferase (ALT/SGPT)December 31, 2024 11:50am December 31, 2024 12:36pm8 U/L7-52[facility] [id number] [address] [place] [address] 01529Nemnjrys PhosphataseOctober 2024 1:35pmOctober 2024 2:25pm69 U/J10-947BaasvibomOhiohealth Ctr [id number] [address] [place] [address] 84952Ehnkqtun PhosphataseOctober 2024 11:50amOctober 2024 12:36pm68 U/K78-162SstbqoxkrOhiohealth Ctr [id number] [address] [place] [address] 64254Qimpzkr DehydrogenaseSeptember 2024 8:50amSeptember 2024 10:56nj696 U/J616-211ZfyyxpenaOhiohealth Ctr [id number] 1[address] [facility] 29502FyqlxcCdboerp 2024 1:35pmOctober 2024 2:25pm20.0 U/L 11.0-82.0[facility] [id number] [address] [place] [address] 92916FdkdhpWimfsbs 2024 11:50amOctober 2024 12:36pm32.0 U/L11.0-82.0[facility] [id number] [address] [place] [address] 56982Gbzc LevelSeptember 2024 8:50amSeptember 2024 10:31dd102 ug/zB51-097SmbfubcxvOhiohealth Ctr [id number] [address] [place] [address] 46953Bjbcj Iron Binding CapacitySeptember 2024 8:50amSeptember 2024 10:96ph638 ug/dLBelow low -586GoqtwoatjOhiohealth Ctr [id number] [address] [place] [address] 65693Ehuk SaturationSeptember 2024 8:50amSeptember 2024 10:44am43.1 %20-50[facility] [id number] [address] [place] [address] 03306XlcukkjazkkTtxujazwq 2024 8:50amSeptember 2024 10:86pc584 mg/dLBelow low buduje012-289ZkdsnieukOhiohealth Ctr [id number] [address] [place] [address] 09034EfuzonhtBzzoravpq 2024 8:50amSeptember 2024 11:05am 29.9 ng/mL11.0-306.8[facility] [id number] [address] [place] [address] 62878Ydiaikml I High SensitivityOctober 2024 1:35pmOctober 2024 9:00pm< 3 ng/L0-15The Troponin units of report have been changed to meet the Chest Pain Accreditation requirement, element EC5.M1l2. Troponin units are changed from pg/ml to ng/L. Also, the decimal is removed and results are in whole numbers.[facility] [id number] [address] [place] [address] 78408G-Imnx Natriuretic PeptideOctober 2024 1:35pmOctober 2024 9:01pm3.0 pg/mLBelow low normal5-100[facility] [id number] [address] [place] [address] 77188Kiqmafp B12 LevelSeptember 2024 8:50amSeptember 2024 11:59to616 pg/sT412-231YxjnsxdbsOhiohealth Ctr [id number] [address] [place] [address] 90318VyxucoMehidflja 2024 8:50amSeptember 2024 11:08am 9.3 ng/mL>5.9Folate reference range: >5.9 ng/mlThe WHO technical consultation on folate and vitamin b05ztqhknxnduqz has determined that folate concentrations lessthan 4 ng/ml are considered deficient.[facility] [id number] [address] [place] [address] 03187Kmdt ThyroxineSeptember 2024 8:50amSeptember 2024 11:00am0.62 ng/dL0.61-1.12[facility] [id number] [address] [place] [address] 68333Qwjbpfw Stimulating Hormone 3rd GenSeptember 2024 8:50am November 29, 2024 10:59am0.33 u[iU]/mLBelow low normal0.45-5.33[facility] [id number] [address] [place] [address] 08897Zlnqmnkn Creatinine Clearance (ChemOctober 2024 1:35pm December 24, 2024 2:25pm93.02[facility] [id number] [address] [place] [address] 01227Awozcjkl Creatinine Clearance (ChemOctober 2024 11:50am December 31, 2024 12:90ke629.89[facility] [id number] [address] [place] [address] 45173Pufry Amphetamines ScreenOctober 2024 11:06amOctober 2024 12:29pmNegativeNegativeOhiohealth Ctr [id number] [address] [place] [address] 11381Lpbfg Barbiturates ScreenOctober 2024 11:06amOctober 2024 12:29pmNegativeNegativeOhiohealth C[facility] [id number] 1[address] [facility] 65651Kdgua Benzodiazepines ScreenOctober 2024 11:06amOctober 2024 12:29pmNegativeNegativeOhiohealth Ctr [id number] 1[address] [facility] 94568Gnbmd Cocaine ScreenOctober 2024 11:06amOctober 2024 12:29pmNegativeNegativeOhiohealth Ctr [id number] 1[address] [facility] 54776Yxemh Opiates ScreenOctober 2024 11:06amOctober 2024 12:29pmPositiveAbove high normalNegativeOhiohealth Ctr [id number] 1[address] [facility] 92198Ixdll Phencyclidine ScreenOctober 2024 11:06amOctober 2024 12:29pmNegativeNegativeOhiohealth Ctr [id number] [address] [place] [address] 17875Mwgzg Marijuana (THC) ScreenOctober 2024 11:06amOctober 2024 12:29pmNegativeNegativeThese are unconfirmed results and should not be used for legal purposes. Drug Cut-Off Concentration: AMPH 1000 ng/mL ALEXANDRO 200 ng/mL MARAH 200 ng/mL COCM 300 ng/mL OP 300 ng/mL PCP 25 ng/mL THC 20 ng/mL [facility] [id number] [address] [place] [address] 47268Cwdjvu LevelOctober 2024 9:43amOctober 2024 7:36am65 ug/dLBelow low omcjbk69-812Tevj test was developed and its performance characteristicsdetermined by [employer]. It has not been cleared orapproved by the Food and Drug Administration. Detection Limit = 5Performed at: [facility] [id number] [place], [place] [id number] Director: Carlos Guerra MD, Phone: [phone] 2024 9:43am December 27, 2024 4:07am17.9 mg/dLBelow low zlpldy11.0-39.0Performed at: [facility] [place], [place] [id number] Director: Shiva Christopher PhD, Phone: [phone] Diagnostic Imaging Reports Author Jesus Ledesma [facility] CenterAuthoredSeptember 2024 1:13pmReport Dictated Date/TimeDictated ByStatusRadiology ReportSeptember 2024 1:13pm Jesus Ledesma Jr DOcomplete[facility] [place] [address] [place] [address] CT Scan Report Signed Patient: Negro Stacy MR#: [id number] : 1995 Acct:[id number] Age/Sex: 29 / F ADM Date: 5 Loc: Room: Type: [facility] Attending Dr: Marcelle Ryan MD Copies [...] 1:16 PM Dictation Location: RADIO-PC-22 Transcribed By: PWS 11/29/24 1316 Dictated By: Jesus Ledesma Jr, DO 11/29/24 1313 Signed By: <Electronically signed by Jesus Ledesma Jr, DO in [place]> 11/29/24 1316 Author Jesus Ledesma [facility] CenterAuthoredSeptember 2024 1:16pmReport Dictated Date/TimeDictated ByStatusRadiology ReportSeptember 2024 1:16pm Jesus Ledesma Jr DOcompleteMer[facility] [place] [address] [place] [address] CT Scan Report Signed Patient: Negro Stacy MR#: [id number] : 1995 Acct:[id number] Age/Sex: 29 / F ADM Date: 5 Loc: Room: Type: [facility] Attending Dr: Marcelle Ryan MD Copies [...] 1:18 PM Dictation Location: RADIO-PC-22 Transcribed By: [facility] 11/29/24 1318 Dictated By: Jesus Ledesma Jr, DO 11/29/24 1316 Signed By: <Electronically signed by Jesus Ledesma Jr, DO in OV> 11/29/24 1318 Author Jesus Ledesma [facility] CenterAuthoredOctsaint joseph london 2024 2:50pmReportDictated Date/TimeDictated ByStatusRadiology ReportOctober 2024 2:50pmJoseph Jr Callie DOcompleteMer[facility] [place] [address] [place] [address] CT Scan Report Signed Patient: Negro Stacy MR#: [id number] : 1995 Acct:[id number] Age/Sex: 29 / F ADM Date: 5 Loc: ER Room: Type: PRE ER Attending Dr: Copies to: Brigitte Alvarez APRN TEMP, PROVIDER~ Ordering Provider: Brigitte Alvarez APRN Date of Service: 12/24/24 CT/CT abdomen pelvis w con: Abdominal Pain CT ABDOMEN AND PELVIS WITH INTRAVENOUS CONTRAST: CLINICAL HISTORY: Right upper quadrant pain nausea and diarrhea. COMPARISON: CT abdomen and pelvis 11/18/2024 TECHNIQUE: Spiral images were obtained through the abdomen and pelvis following the administration of intravenous contrast. This CT exam was performed using one or more following dose reduction techniques: Automated exposure control, adjustment of the mA and/or kV according to patient size, or use of iterative reconstruction technique. FINDINGS: Lung Bases: [No acute findings.] Organs:Pneumobilia is present. No enhancing liver lesion. Portal vein spleen pancreas and adrenal glands appear unremarkable. No enhancing renal mass or hydronephrosis. Abdominal aorta appears normal in caliber.[ GI: Stomach is grossly unremarkable. Small bowel demonstrates postsurgical change. No acute colonic abnormality.[Moderate stool burden. Pelvis:[Urinary bladder is grossly unremarkable. A presumed nabothian cyst is seen involving the cervical region.] Peritoneum/Retroperitoneum:No free air or free fluid or lymphadenopathy.[ Abd wall/Bones:No acute findings. Osseous structures demonstrate no acute findings.[ CT/CT abdomen pelvis w con IMPRESSION: No acute process. Pneumobilia. Moderate stool burden suggestive of underlying constipation. Impression dictated by: Jesus Ledesma Jr., D.O. 12/24/2024 2:53 PM Dictation Location: RADIO-PC-27 Transcribed By: [facility] 12/24/241452 Dictated By: Jesus Ledesma Jr, DO 12/24/24 145 Signed By: <Electronically signed by Jesus Ledesma Jr, DO in OV> 12/24/24 145 Author Declan Daly [facility] CenterAutvan wert county hospitalOctsaint joseph london 2024 6:38pmReportDictated Date/TimeDictated ByStatusRadiology ReportOctober 2024 6:38pmRoxanne MakM[place] [address] XRay Report Signed Patient: Negro Stacy MR#: [id number] : 1995 Acct:[id number] Age/Sex: 29 / F ADM Date: 5 Loc: ER Room: Type: [facility] ER Attending Dr: Copies to: Petey Diaz PA-C~ Ordering Provider: Petey Diaz PA-C Date of Service: 12/24/24 XR/XR chest 2V*: tachycardia PA AND LATERAL CHEST: CLINICAL HISTORY: Right upper quadrant pain with nausea and diarrhea COMPARISON: 11/29/2024 FINDINGS: Unremarkable cardiomediastinal. Lungs are clear. No effusion or pneumothorax. XR/XR chest 2V* IMPRESSION: NO ACUTE CARDIOPULMONARY ABNORMALITY. Impression dictated by: Declan Daly M.D. 12/24/2024 6:39 PM Dictation Location: RADIO-PC-29 Transcribed By: ANNABELLA 12/24/241838 Dictated By: Declan Daly MD 12/24/241837 Signed By: <Electronically signed by Declan Daly MD in OV> 12/24/241838 Author Declan Daly [facility] CenterAutSpaulding Hospital Cambridge 2024 8:02pmReportDictated Date/TimeDictated ByStatusRadiology ReportOctober 2024 8:02pmDeclan Daly [facility] [place] [address] [place] [address] CT Scan Report Signed Patient: Negro Stacy MR#: [id number] : 1995 Acct:[id number] Age/Sex: 29 / F ADM Date: 5 Loc: ER Room: Type: [facility] ER Attending Dr: Copies to: Petey Diaz PA-C~ Ordering Provider: Petey Diaz PA-C Date of Service: 12/24/24 CT/CT angio chest PE protocol: Tachycardia, Hx cancer CT ANGIOGRAM OF THE CHEST, PULMONARY EMBOLISM PROTOCOL: CLINICAL INFORMATION: Right upper quadrant pain, nausea/vomiting, history of non-Hodgkin's lymphoma TECHNIQUE: Following intravenous injection of contrast CT scans of the chest were obtained using pulmonary embolism protocol. Coronal and sagittal reconstructed images, as well as volume rendered CT pulmonary angiographic images were also submitted.The CT exam was performed using one or more of the following dose reduction techniques: Automated exposure control, adjustment of the MA and/or Kv according to patient size, or use of the iterative reconstruction technique. FINDINGS: Pulmonary Vasculature: Contrast bolus is adequate for evaluation of pulmonary embolism. Pulmonary trunk appears nondilated. No filling defects are identi fied to suggest pulmonary embolism. Mediastinum : Anterior mediastinal soft tissue attenuation may represent residual thymic tissue. No suspicious mediastinal or hilar adenopathy. Aorta normal caliber. No pericardial effusion. Lungs: No focal consolidation, pneumothorax or pleural effusion. Upper abdomen: Pneumobilia surgical clips cholecystectomy noted. Soft tissue/bones: Soft tissues surrounding the chest wall demonstrate no acute findings. Osseous structures demonstrate no suspicious osseous lesion. CT/CT angio chest PE protocol IMPRESSION: No CT evidence of pulmonary embolism or acute cardiopulmonary process. Impression dictated by: Declan Daly M.D. 12/24/2024 8:05 PM Dictation Location: [place] [address] Transcribed By: [facility] 12/24/242004 Dictated By: Declan Daly MD 12/24/242001 Signed By: <Electronically signed by Declan Daly MD in OV> 10/07/25 2005 Vital Signs Vital Reading Result Reference Range Collection Date/Time Height 67 [in_i] November 01, 2024 11:52nhFhbifn27.23 kgAugust 2024 11:21amBody Temperature 98.1 [degF]97.6-99.0August 2024 11:21amHeart Bbfy130 /cmn33-447Qikggw 2024 11:23amBP Shwdhnqw352 mm[Hg]100-140August 2024 11:23amBP Wabrysedj545 mm[Hg]60-100August 2024 11:23amBMI (Body Mass Index)21.1 kg/g3Qiqzkj 2024 11:02wlDyopbh21 [in_i]November 21, 2024 10:56amWeight 63.50 kgSeptember 2024 10:56amBody Rhlqtpcipaj06.4 [degF]97.6-99.0September 2024 10:56amHeart Jgrr236 /aiv10-971Iauacgpcv 2024 10:56amRespiratory rate16 /bft52-29Nztpypadh 2024 10:56amOxygen saturation by Pulse oximetry 100 %95-100September 2024 10:56amBP Sykgkema732 mm[Hg]100-140September 2024 10:56amBP Fnnydocbq90 mm[Hg]60-100September 2024 10:56amBMI (Body Mass Index)21.9 kg/z4Otevuuenj 2024 10:04qbFubbey51 [in_i]December 04, 2024 3:38cgRqkoqa05.31 kgSeptember 2024 3:01pmBody Wffjalhzsbr55.5 [degF] 97.6-99.0September 2024 3:01pmHeart Rate81 /gpe93-963Negplznnd 2024 3:01pmRespiratory rate16 /zsi28-61Nalhiicck 2024 3:01pmOxygen saturation by Pulse fygnkakr689 %95-100September 2024 3:01pmBP Ktfnopnt666 mm[Hg] 100-140September 2024 3:01pmBP Cqqcbndgb69 mm[Hg]60-100September 2024 3:01pmBMI (Body Mass Index)22.5 kg/z2Gkxjebhel 2024 3:47fjMjabbk36 [in_i]December 24, 2024 1:02hwXhykfu97.45 kgOctober 2024 1:23pmBody Dwzopysbjqy45.6 [degF]97.6-99.0Oct2024 1:23pmHeart Lzsf271 /ydu04-000 December 24, 2024 9:00pmRespiratory rate12 /mbd47-64UgacaxdDecember 24, 2024 6:30pm Oxygen saturation by Pulse bnautqwh54 %95-100Oct2024 9:00pmBP Systolic 119 mm[Hg]100-140December 24, 2024 9:00pmBP Gbrtedddw37 mm[Hg]60-100Oct2024 9:24xqMaswaf19 [in_i]December 31, 2024 10:90chZarytt67.50 kgDecober 2024 10:11amBody Sbwsjthzvqc75.9 [degF]97.6-99.0December 31, 2024 10:11amHeart Rate99 /ioe57-598PnltqkoDecember 31, 2024 1:13pmRespiratory rate18 /ydd17-74ZmiadtaDecember 31, 2024 1:13pmOxygen saturation by Pulse ycokeazn827 %95-100December 31, 2024 1:13pmBP Pnatetnc487 mm[Hg]100-140December 31, 2024 1:13pmBP Erytnwohj71 mm[Hg]60-100Decober 2024 1:85uyEtgzfk18 [in_i]2025 2:58pm Nvivkw79.41 kgOctober 2024 2:58pmBody Ftaaifewevz14.8 [degF]97.6-99.0 2025 2:58pmHeart Xesm194 /qkf70-031AqwksmvJanuary 01, 2025 2:58pm Respiratory rate16 /bam27-09Jnwifdl 15th, 2025 2:58pmOxygen saturation by Pulse kwzmuagn40 %95-100October 2024 2:58pmBP Lpyajmdr717 mm[Hg]100-140Oct2024 2:58pmBP Mqrplenjr827 mm[Hg]60-100October 2024 2:58pmBMI (Body Mass Index)22.2 kg/v8Ghttsuo 2024 2:50zuRsprqp07 [in_i]2025 2:66kxUammut38.41 kgOctober 2024 2:58pm Advance Directives Advance Directive Response Recorded Date/ Time Advance Directives No April 6:19pm Insurance Providers Guarantor Negro Stacy Address [address] [place] [phone] Info.Home Phone: Payer Policy Id Subscriber's Name Subscriber Id Effectiv e Date Expiration Date [facility] [id number] Daren Dalila Stacy [id number] [facility] Netwk [id number] K [id number] [id number] Negro Dalila [id number] BC/BS [id number] Dalila [id number] Encounters Encounter Location(s) Arrival/Admit Date Discharge/Depart Date Provider(s) Departed Physician/Prov ider Office Visit -[facility] November 01, 2024 11:18am November 01, 2024 11:39am Leif Lanier APRN Departed Physician/Prov ider Office Visit -[facility] November 21, 2024 10:54am November 21, 2024 11:45am Leif Ghotra MD Departed Physician/Prov ider [facility] December 04, 2024 2:52pm December 04, 2024 3:37pm Leif Ghotra MD Departed Emergency -Emergency Room December 24, 2024 1:17pm December 24, 2024 9:28pm Departed Emergency-Emergency RoomOctober 2024 10:07amOctober 2024 1:15pmDeparted Physician/Provider Office Visit-[facility] Amb[facility]October 2024 2:56pmOctober 2024 3:55pm[facility] 20[facility] 2:57pmLeif Ghotra MD Recent Diagnosis Onset Date Admit Date Cancer associated pain Unknown November 012024 11:18am Hodgkin's lymphoma Unknown November 01, 2024 11:18am FPC (current) use of o 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 November, November 01, 2024 11:18am Cancer associated pain Unknown November 21, 2024 10:54am 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 Unknown November 21, 2024 10:54am Thyroid nodule Unknown November 21, 2 025 10:54am Weight loss Unknown November 21 025 10:54am History of gastric surgery Unknown 2024 10:54am Cancer associated pain Unknown December 04, 2024 2:52pm Chronic diarrhea Unknown December 04, 2024 2:52pm 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, 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, 2024 2:52pm 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 Unknown December 04, 2024 2:52pm Thyroid nodule Unknown December 04, 2024 2:52pm Weight loss Unknown December 04, 2024 2:52pm History of gastric surgery Unknown 2024 2:52pm Cancer associated pain Unknown December 182024 2:56pm Chronic diarrhea Unknown January 01 025 2:56pm 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, 2025 2:56pm 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 Unknown 2025 2:56pm Thyroid nodule Unknown January 01 2:56pm Weight loss Unknown January 01 2:56pm History of gastric surgery Unknown Oct er 2024 2:56pm Assessments Diagnosis Onset Date Resolution Status Admit Date Cancer associated pain acuteAugust 2024 11:18amHodgkin's lymphomaacuteAugust 2024 11:18am 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) use of o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SuteAugust 2024 11:18amCancer associated painacuteSeptember 2024 10:54am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acuteSept2024 10:54am Thyroid noduleacuteSept2024 10:54amWeight lossacuteSeptember 2024 10:54amHistory of gastric surgeryresolvedSept2024 10:54amCancer associated painacuteSeptember 2024 2:52pmChronic diarrheaacuteSeptember 2024 2:52pmCopper deficiency myeloneuropathyOct, uteSept2024 2:52pm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 acuteSeptember 2024 2:52pmThyroid noduleacuteSeptember 2024 2:52pm Weight lossacuteSeptember 2024 2:52pmHistory of gastric surgeryresolved December 04, 2024 2:52pmCancer associated painacuteOctober 2024 2:56pm Chronic diarrheaacuteOctober 2024 2:56pm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,uteOctober 2024 2:56pm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acuteOctober 2024 2:56pmThyroid noduleacute 2025 2:56pmWeight lossacuteOctober 2024 2:56pmHistory of gastric surgeryresolvedOctober 2024 2:56pm Plan of Treatment Author Marcelle Ryan [facility] CenterAuthoredSept2024 3:19pmThinicolasa is a 29-year-old lady who is now over 3 years from diagnosis [...] sending her to nutrition and gastroenterology at [facility] for ongoing surveillance. She continues to follow-up [...] for transfer of care over 60 minutes octz-wc-ksqe and additional 30 minutes for review of extensive outpatient records of prior therapy. I reviewed recent follow-up with CRISTIAN Diaz who monitors the patient on Dilaudid tablets 2 mg 1 to 2 tablets every 6 hours due to chronic pain in the legs from ABVD therapy. Patient notes recurrent weight loss and gastroparesis, no longer followed by [facility] gastroenterology due to change in insurance. We will set up evaluation by nutrition and [facility] gastroenterology for symptom management and repeat endoscopy [...] She previously was following with GI at [facility] but it has been over 1 year--upper GI endoscopy 07/13/2023 showed normal esophagus, old gastrostomy scar in the gastric body but otherwise normal stomach, and normal duodenum. She apparently had biopsies taken for celiac disease and we do not have these results. She is interested in continued follow-up with gastroenterology at [facility] for her ongoing concerns for malabsorption and weight loss. Recent thyroid ultrasound reviewed and ongoing follow-up with Dr. Murcek of ENT for surveillance of subcentimeter thyroid nodule, TI-RADS 4. No palpable nodule on exam. Author Marcelle Ryan [facility] CenterAuthoredSeptember 2024 9:04am11/21/2024: Transfer of care consultation: This is a 29-year-old lady who is now over 3 years from diagnosis [...] sending her to nutrition and gastroenterology at [facility] for ongoing surveillance. She continues to follow-up [...] for transfer of care over 60 minutes rgxa-di-uohh and additional 30 minutes for review of extensive outpatient records of prior therapy. 12/04/2024: We reviewed the reports of CT neck and chest which showed no evidence of adenopathy concerning for Hodgkin's disease recurrence. Previously reported nonspecific nodular opacities and ground glass opacities not noted on current study. We will continue to follow with imaging every 6 months. Addressed gastroparesis and consultation with outside GI Dr. Juan Alejo in [facility] who will evaluate her for this study. 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 Also sending stool pancreatic elastase for chronic diarrhea and we will contact her with results and if she needs Creon supplementation. She may return in 1 month with labs including CBC, copper, and ceruloplasmin 1 week before visit to determine if she has any symptomatic benefit from copper supplementation and to review the results of her GI consultation. This is a high complexity 45-minute follow-up for coordination of care to arrange ERCP and to treat new diagnosis of copper deficiency. Recent thyroid ultrasound reviewed and ongoing follow-up with Dr. De Luna of ENT for surveillance of subcentimeter thyroid nodule, TI-RADS 4. No palpable nodule on exam and imaging shows no significant abnormalities of the thyroid gland 11/29/2024. TSH is somewhat suppressed at 0.33 (normal range 0.45-5.33). Free T4 is normal. Will defer any thyroid repletion therapy to Dr. De Luna of ENT. I reviewed recent follow-up with CRISTIAN Diaz who monitors the patient on Dilaudid tablets 2 mg 1 to 2 tablets every 6 hours due to chronic pain in the legs from ABVD therapy. Patient notes recurrent weight loss and gastroparesis, no longer followed by [facility] gastroenterology due to change in insurance. We will set up evaluation by [facility] and [facility] gastro[facility]ology for symptom management and repeat endoscopy if indicated. We discussed workup for malabsorption with B12, folate, serum iron profile and ferritin, copper and ceruloplasmin, follow-up LDH, TSH and free T4--all of these were ordered today and we will follow-up results in 2 weeks with appropriate repletion as needed. -- Will observe whether weight improves on copper repletion therapy. 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 She previously was following with GI at [facility] but it has been over 1 year--upper GI endoscopy 07/13/2023 showed normal esophagus, old gastrostomy scar in the gastric body but otherwise normal stomach, and normal duodenum. She apparently had biopsies taken for celiac disease and we do not have these results. She is interested in continued follow-up with gastroenterology at [facility] for her ongoing concerns for malabsorption and weight loss. -- Redirecting referral to Dr. Martinez in [facility] as she could not be evaluated at [facility] gastroenterology until about February 2025. Will review these results in 1 month. Patient has had extensive gastric surgery with retrocolic Mendy-en-Y hepaticojejunostomy after prior surgical complications unrelated to her Hodgkin's disease. We did discuss that her copper deficiency may contribute to myeloneuropathy which may be associated with gastroparesis symptoms with pain and unpredictable bowels. As noted above we are sending stool pancreatic elastase to rule out pancreatic insufficiency and sending for evaluation by Dr. Martinez for potential ERCP given her altered anatomy and ongoing symptoms. Follow-up these results in 1 month. We reviewed her copper studies showing low serum copper 65 and ceruloplasmin 14.8. Starting oral copper supplementation with copper gluconate 2 mg twice daily for 1 month, then will have 2 mg daily maintenance. We will reassess her CBC, copper, and ceruloplasmin levels at next follow-up in 1 month. Author Marcelle Ryan [facility] CenterAuthoredOctober 2024 3:22pm11/21/2024: Transfer of care consultation: This is a 29-year-old lady who is now over 3 years from diagnosis [...] sending her to nutrition and gastroenterology at [facility] for ongoing surveillance. She continues to follow-up [...] for transfer of care over 60 minutes tami-zk-ztbn and additional 30 minutes for review of extensive outpatient records of prior therapy. 12/04/2024: We reviewed the reports of CT neck and chest which showed no evidence of adenopathy concerning for Hodgkin's disease recurrence. Previously reported nonspecific nodular opacities and ground glass opacities not noted on current study. We will continue to follow with imaging every 6 months. Addressed gastroparesis and consultation with outside GI Dr. Juan Alejo in [facility] who will evaluate her for this study. 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 Also sending stool pancreatic elastase for chronic diarrhea and we will contact her with results and if she needs Creon supplementation. She may return in 1 month with labs including CBC, copper, and ceruloplasmin 1 week before visit to determine if she has any symptomatic benefit from copper supplementation and to review the results of her GI consultation. This is a high complexity 45-minute follow-up for coordination of care to arrange ERCP and to treat new diagnosis of copper deficiency. We reviewed her copper studies showing low serum copper 65 and ceruloplasmin 14.8. Starting oral copper supplementation with copper gluconate 2 mg twice daily for 1 month, then will have 2 mg daily maintenance. We will reassess her CBC, copper, and ceruloplasmin levels at next follow-up in 1 month. Patient has had extensive gastric surgery with retrocolic Mendy-en-Y hepaticojejunostomy after prior surgical complications unrelated to her Hodgkin's disease. We did discuss that her copper deficiency may contribute to myeloneuropathy which may be associated with gastroparesis symptoms with pain and unpredictable bowels. As noted above we are sending stool pancreatic elastase to rule out pancreatic insufficiency and sending for evaluation by Dr. Martinez for potential ERCP given her altered anatomy and ongoing symptoms. Follow-up these results in 1 month. Recent thyroid ultrasound reviewed and ongoing follow-up with Dr. De Luna of ENT for surveillance of subcentimeter thyroid nodule, TI-RADS 4. No palpable nodule on exam and imaging shows no significant abnormalities of the thyroid gland 11/29/2024. TSH is somewhat suppressed at 0.33 (normal range 0.45-5.33). Free T4 is normal. Will defer any thyroid repletion therapy to Dr. De Luna of ENT. I reviewed recent follow-up with CRISTIAN Diaz who monitors the patient on Dilaudid tablets 2 mg 1 to 2 tablets every 6 hours due to chronic pain in the legs from ABVD therapy. Patient notes recurrent weight loss and gastroparesis, no longer followed by [facility] gastroenterology due to change in insurance. We will set up evaluation by nutrition and [facility] gastroenterology for symptom management and repeat endoscopy if indicated. We discussed workup for malabsorption with B12, folate, serum iron profile and ferritin, copper and ceruloplasmin, follow-up LDH, TSH and free T4--all of these were ordered today and we will follow-up results in 2 weeks with appropriate repletion as needed. -- Will observe whether weight improves on copper repletion therapy. 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 She previously was following with GI at [facility] but it has been over 1 year--upper GI endoscopy 07/13/2023 showed normal esophagus, old gastrostomy scar in the gastric body but otherwise normal stomach, and normal duodenum. She apparently had biopsies taken for celiac disease and we do not have these results. She is interested in continued follow-up with gastroenterology at [facility] for her ongoing concerns for malabsorption and weight loss. -- Redirecting referral to Dr. Martinez in [facility] as she could not be evaluated at [facility] gastroenterology until about February 2025. Will review these results in 1 month. Author Melly Diaz [facility] CenterZach 2024 2:50pmNegro continues to experience chronic pain in her legs [...] February [address] Elizabeth Hu at [facility] [place] Stable disease per most recent restaging scans Needs to change oncologist due to insurance, referred to Dr. 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 Future Tests Future scheduled test information is unavailable Pending Tests Test Name Ordered Date Scheduled Date Pancreatic Elastase, Stool December 04, 2024 3:22pm 1 Days Ceruloplasmin 2025 3:34pm 1 [place] [facility] Comprehensive Metabolic Panel 2025 3:37pm 1 Months Future Visits Future appointment information is unavailable Referrals to Other Providers Reason for Referral Referral Start Date Provider Santana izquierdo Contact Information Provider Address Kapil Elo Olmedo Phone: [phone] [facility] [address]Stgoft[place] Elo Olmedo Phone: [phone] [address] [facility] [address]Rfljgfsew Parker Hernández Ensocarealf Phone: [phone] [facility], [address] [facility] [address].12 - Nodular sclerosis Hodgkin lymphoma, intrathoracic lymph nodes,R63.4 - Abnormal [facility] lossSept[facility] [id number] [facility] [address] Future Procedures Procedure Name Ordered Date Scheduled Date Complete Blood Count Auto Diff January 01 3:37pm 1 Months [place] 2025 3:34pm 1 [place] [facility] [place] hepatobiliary w pharm 2025 3:30 pm GOMEZPOctcalista 2024 3:33pm Future Medications Future medication information is unavailable Patient Instructions Instruction Admit Date Abdominal pain in adults - ED discharge instructions December 24, 2024 1:17pm Abdominal pain in adults - ED discharge instructions December 31, 2024 10:07am
[2025-01-13 19:24] VITALS: BP 149/94; PULSE 99; TEMP 36.9; O2SAT 99; BMI 21.9
[2025-01-13] MEDS: 0.9 % SODIUM CHLORIDE 1,000 ML 2000 ML IV (20:09)
[2025-01-13 20:25] LABS: Hematocrit 43.4 % (36.0-48.0); Hemoglobin 14.6 g/dL (12.0-16.0); Immature Granulocytes Abs Auto 0.03 10^3/uL (0.00-0.03); Immature Granulocytes Pct Auto 0.4 % (0.0-0.5); Lymphocytes Absolute Auto 1.5 10^3/uL (1.2-3.8); Mean Corpuscular HGB Conc 33.6 g/dL (29.9-35.2); Mean Corpuscular Hemoglobin 28.1 pg (26.7-34.0); Mean Corpuscular Volume 83.6 fL (81.0-99.0); Platelet Count 338 10^3/uL (150-450); Red Blood Count 5.19 10^6/uL (4.20-5.40); White Blood Count 7.6 10^3/uL (4.0-11.0)
--- OUTSIDE RECORDS SUMMARY | 2025-01-13 20:38 | XMS_ITS | Clinical Summary ---
Author Organization [facility] Address [address] [place] [address] Care Team Providers Care Water Mechanic Name Role Phone Devonte Kemp DO Primary Care Provider [phone] Allergies Active AllergyReactionsCriticalityNoted DateCommentsDiphenhydramine HclUnknown 10/31/2015 Medications MedicationSigDispense QuantityRefillsLast FilledStart DateEnd DateStatus topiramate (TOPAMAX) 100 MG tablet Take 100 mg by mouth 3 (three) times a day.Active BRINTELLIX 20 mg tablet Take 20 mg by mouth every morning.Active REXULTI 2 mg Tab Take 1 tablet by mouth every morning.08/28/2015Active modafinil (PROVIGIL) 200 MG tablet Take 200 mg by mouth every morning.Active Active Problems ProblemNoted DateDiagnosed DateConversion disorder with attacks or seizures 11/03/2015 Assessment & Plan (11/04/2015 2:55 PM EDT): Rule Out -Discussed mind/body connection at length which patient is somewhat open to. -Patient does endorse current stress and a trauma hx which places the patient at higher risk for conversion. -Strongly recommend continued outpatient counseling to develop positive coping skills. -Education and reassurance provided to patient and family Unspecified abnormal involuntary /14/2016Intractable migraine with status eynspchjdhb92/14/2016Acute vnwafmwehvjljj74/14/2016Major depressive disorder without psychotic rgibfbol05/14/2016 Assessment & Plan (11/03/2015 1:50 PM EDT): By history -Denies current symptoms of depression including appetite/sleep disturbance, sadness, decreased motivation or suicidal ideation. -Patient has reported her medication inconsistently making treating her a challenge. -Has an outpatient psychiatrist, Dr. Rosales with whom she is already established. She should followup as scheduled. -Came in on Duloxetine and Vortioxetine. These two medications should be avoided as the combinationmay increase risk of Serotonin Syndrome, SIADH, hyponatremia. Will DC Duloxetine at this time. Acute respiratory zfgayyy8910/31/2015 Family History Medical HistoryRelationCommentsBipolar disorderFatherRelationStatusComments Father Social History Tobacco UseTypesPacks/DayYears UsedDateSmoking Tobacco: NeverAlcohol UseStandard Drinks/WeekCommentsNo0 (1 standard drink = 0.6 oz pure alcohol)Comments NoSex and Gender InformationValueDate RecordedSex Assigned at BirthNot on file Legal FupWaqwyc47/13/2016 3:22 PM EDTGender IdentityNot on fileSexual OrientationNot on file Last Filed Vital Signs Vital SignReadingTime TakenCommentsBlood Hqditcct976/68011/12/2015 12:14 PM EDT Pirlh033011/12/2015 12:14 PM KCGKaezogphlqe05.8 ??C (98.2 ??F)11/12/2015 12:14 PM EDTRespiratory Jisg260811/12/2015 2:30 PM EDTOxygen Slpzaekgjs77%11/12/2015 12:14 PM EDTInhaled Oxygen Concentration--Ndfzey21.8 kg (176 lb)11/01/2015 3:59 AM EDT Kbrccq480.2 cm (5' 7 )11/01/2015 3:59 AM EDTBody Mass Index27.57011/01/2015 3:59 AM EDT Plan of Treatment Health MaintenanceDue DateLast DoneCommentsMMR Vaccines (1 of 1 - Standard series)1995Wellness Visit1997Depression Screening/Follow-Up (PHQ-2/9)2006Varicella Vaccines (1 of 2 - 13+ 2-dose series)2007HIV Hgcgbnmwp28/15/2009Hepatitis C Ghxmbsbkg23/15/2012Hepatitis B Vaccines (1 of 3 - 19+ 3-dose series)2013Tetanus/Diphtheria/Pertussis (1 - Tdap)2013Pap Smear2015HPV Vaccines (1 - 3-dose SCDM series)2021ervical Cancer Ocrvwjyob17/15/2024HPV/Lkuspu924COVID-19 Vaccine (1 - season) 2024Influenza Vaccine (#1)2024Zoster Vaccines (1 of 2)01/02/2044SV Vaccines (1 - 1-dose 75+ series)2069HIB VaccinesAged OutNo longer eligible based on patient's age to complete this topicHepatitis A VaccinesAged OutNo longer eligible based on patient's age to complete this topicIPV VaccinesAged OutNo longer eligible based on patient's age to complete this topicMeningococcal ACWY VaccineAged OutNo longer eligible based on patient's age to complete this topicMeningococcal B VaccineAged OutNo longer eligible based on patient's age to complete this topicPneumococcal VaccineAged OutNo longer eligible based on patient's age to complete this topicRotavirus VaccinesAged OutNo longer eligible based on patient's age to complete this topic Insurance Advance Directives For more information, please contact: [phone] * Full Code - Unverified (Latest Code Status on File) Date ActivatedDate InactivatedComments10/31/2015 5:36 PM11/12/2015 7:47 PM Care Teams Team MemberRelationshipSpecialtyStart DateEnd Date Devonte Kemp DO PCP - GeneralEndocrinology/Metabolism10/19/15
--- OUTSIDE RECORDS SUMMARY | 2025-01-13 20:39 | XMS_ITS | Clinical Summary ---
Author Organization [facility] Address [address] [place] [address] Care Team Providers Care Molding Fitter Name Role Phone Kapil Patel DO Primary Care Provider [phone] Kapil Patel DO Unavailable [phone] Allergies Active AllergyReactionsCriticalityNoted DateCommentsDheaRash,UnknownLow 8461QdhnwdturscahqlnySfykgsg79/11/2025DiphenhydramineAnaphylaxis,Rash, Hives,DyfftWyhe57/13/4670IpiukoOkpvWym62/13/5261Kwrhhrof16/07/2025 Other Reaction(s): Unknown Medications MedicationSigDispense QuantityRefillsLast FilledStart DateEnd DateStatus galcanezumab (Emgality) 120 MG/ML prefilled syringe Indications:Intractable chronic migraine without aura and with status migrainosusINJECT 1 ML SUBCUTANEOUSLY ONCE A MONTH FOR 90 DAYS 3 each 5Active Ubrogepant (Ubrelvy) 100 MG tablet Indications:Migraine without aura, intractable, with status migrainosusTAKE 1 TAB NEEDED FOR MIGRAINE. MAY REPEAT ONCE IN 2 HOURS. MAX 2 PER HEADACHE ,4 PER WEEK 10 tablet 5Active dicyclomine (Bentyl) 10 MG capsule 5Active HYDROmorphone (Dilaudid) 2 MG tablet TAKE 1 TO 2 TABLETS BY MOUTH EVERY 6 HOURS NEEDED FOR PAIN for 20 days 5Active polyethylene glycol, PEG, 3350 (Glycolax) 17 GM/SCOOP powder 5Active buPROPion (Wellbutrin) 100 MG tablet Indications:Depression, unspecified depression typeTAKE 1 TABLET BY MOUTH IN THE MORNING AND BEFORE BEDTIME 180 tablet 5Active zolpidem (Ambien) 10 MG tablet Indications:Insomnia, psychophysiological1 tab prn at bedtime 20 tablet 5Active venlafaxine XR (Effexor XR) 225 MG 24 hr tablet Indications:Intractable chronic migraine without aura and with status migrainosusTAKE 1 TABLET BY MOUTH EVERY DAY WITH FOOD 90 tablet 5Active pantoprazole (ProtoNix) 40 MG EC tablet Indications:Generalized painTAKE 1 TABLET BY MOUTH ONCE A DAY *DO NOT CRUSH/CHEW/SPLIT* 90 tablet 5Active Copper Gluconate 2 MG tablet Take 2 mg by mouth in the morning and 2 mg before bedtime.5Active metoclopramide (Reglan) 10 MG tablet Take 10 mg by mouth in the morning and 10 mg in the evening and 10 mg before bedtime.5Active ondansetron ODT (Zofran-ODT) 4 MG disintegrating tablet Take 4 mg by mouth every 8 (eight) hours if needed for payejf795Active linaCLOtide (Linzess) 145 MCG capsule Indications:GastroparesisTake 1 capsule (145 mcg) by mouth in the morning. Take before meals. Do not crush or chew. 30 capsule 111ctive promethazine (Phenergan) 25 MG tablet Discontinued linaCLOtide (Linzess) 72 MCG capsule Indications:Diarrhea, unspecified type,Chronic fatigueTake 1 capsule (72 mcg) by mouth in the morning. Take before meals. Do not crush or chew. 30 capsule 11011/22/413911/Discontinued(Therapy completed) pancrelipase, Uyv-Ikwm-Dmbp, (Creon) 6000-34610 units capsule Indications:Pancreatic insufficiency (HCC)Take 1 capsule by mouth in the morning and 1 capsule at noon and 1 capsule in the evening. Take with meals. 90 capsule /Discontinued(Cost of medication) Active Problems ProblemNoted DateDiagnosed SwdaZjidcifwer04/11/2025nxiety vuuouqoo90/11/2025 Atopic qwxijzmghh60/11/2025topic cnkaudifodqaivq97/11/2025Hodgkin lymphoma of lymph nodes of neck09/27/2024Lymphadenopathy of head and neck yiirlz8809/27/2024 Moderate episode of recurrent major depressive mlluhizs43/11/2025Recurrent major depressive disorder, in partial llzuuohvc75/11/2025S/P percutaneous endoscopic gastrostomy (PEG) tube wkenywgwu29/11/2025Status post monosgigviqgrtn33/11/2025 Migraine without aura, intractable, with status oqjcayxsvjl73/25/2023 Assessment & Plan (10/22/2024 4:36 PM EDT): Change riza to ubrogepant 100 prn migraine. Assessment & Plan (04/16/2024 4:46 PM EST): (Continue current regimen.) Assessment & Plan (08/22/2023 4:19 PM EDT): (Continue current regimen.) Pituitary gland jeoifqpe78/25/2023 Assessment & Plan (10/22/2024 4:36 PM EDT): Pit hormone panel. (Never done) (fasting) MR brain c/s Gd ATTN pituitary. - [facility]. Assessment & Plan (04/16/2024 4:46 PM EST): Pit hormone panel. 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 - [facility]. Assessment & Plan (08/22/2023 4:25 PM EDT): Pit hormone panel. 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 - [facility]. Insomnia, dhepibqtblpicpzcbay72/25/2023 Assessment & Plan (10/22/2024 4:36 PM EDT): (Continue current regimen.) Assessment & Plan (04/16/2024 4:46 PM EST): Change zaleplon, retry zolpidem 10 mg #20. (Longer duration of action.) Orders: zolpidem (Ambien) 10 MG tablet; 1 tab prn at bedtime Assessment & Plan (08/22/2023 4:21 PM EDT): (May remain off meds.) Tvektfn9611/11/2022 Assessment & Plan (04/16/2024 4:46 PM EST): Mgyenjkmnly28/25/2023 Overview (11/11/2022): --- but NYLA=0 (____), CAIO not likely. Pharyngeal wvqxletn28/25/2023eneralized pain09/06/2021 Overview (09/27/2024): Patient c/o general body aches Follows pal med OP Dr House started patient on MS contin 15mg BID and was referred to Palliative medicine She follows with Palliative medicine and MS Contin was increased to q8h - Pall med consult - Continue MS Contin 15 Q8 - C/W lidocaine patch Hodgkin's satffbgr63/13/2022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07/27/2021 Overview (09/27/2024): ONCOLOGIC HISTORY: ?? Admitted in June 2021 for chronic G-tube issues in [facility]. CT scans at that time showed evidence of right supraclavicular and superior mediastinal lymphadenopathy. July 07, 2021 CT chest notable for enlarged right supraclavicular approximately 3.2 cm, enlarged thymus and superior mediastinal lymphadenopathy ?? July 15, 2021 PET scan with uptake in the supraclavicular and anterior mediastinal lymphadenopathy (max SUV 4.8) and subcentimeter hypermetabolic nodules localized within the thymus ?? July 21, 2021 right supraclavicular node excision biopsy consistent with nodular sclerosis classical Hodgkin's lymphoma; flow cytometry negative for clonal lymphoproliferative disorder; IHC positivefor CD30 and PAX5, and negative for CD45, CD20, and CD3 ?? August 09, 2021 start cycle 1-day 1 Adriamycin, Bleomycin, Vinblastine and Dacarbazine (ABVD) with leuprolide for ovarian suppression ?? August 13, 2021 echocardiogram with normal LVEF 60% - PPX: acyclovir and bactrim - Will need F/U with Dr House [was do for chemo yesterday] scheduled Sunday 09/10 for 10am Jlhwponloz58/30/2021 Assessment & Plan (04/16/2024 4:46 PM EST): (Continue current regimen.) Assessment & Plan (08/22/2023 4:24 PM EDT): (Continue current regimen.) Guwvev3810/27/2020onversion disorder with attacks or zmdnlupl87/16/2016 Overview (11/11/2022): Last Assessment & Plan: Rule Out -Discussed mind/body connection at length which patient is somewhat open to. -Patient does endorse current stress and a trauma hx which places the patient at higher risk for conversion. -Strongly recommend continued outpatient counseling to develop positive coping skills. -Education and reassurance provided to patient and family PFO (patent foramen ovale) ([facility])02/03/2015 Resolved Problems ProblemNoted DateDiagnosed DateResolved DateAcquired hallux bqrstk2109/27/2024 11/14/2024ute sjlkzuzqfssc79G tube cmazwrjv88/11/2025 11/14/2024RLQ abdominal painVenous dckuloeoexmqi95/11/2025 11/14/2024ervical paraspinal muscle spasm Assessment & Plan (10/22/2024 4:36 PM EDT): Change cyclobenzaprine to tizanidine 4 hs. (Continue home PT.) Assessment & Plan (04/16/2024 4:46 PM EST): Incr rotational stretches as demonstrated to pt. Assessment & Plan (08/22/2023 4:22 PM EDT): Incr rotational stretches as demonstrated to pt. May call to restart cyclobenzaprine 10 hs. Gdeugfihvzcz69ellulitis at gastrostomy tube site09/06/2021 11/14/2024 Overview (09/27/2024): Assessment- patient with pus from around PEG tube site Plan EGD with removal in am Posterior glottic unxnqssb40Psychogenic nonepileptic seizure Overview (11/11/2022): Last Assessment & Plan: H/O psychogenic nonepileptic seizures, last occurring in 2018 per patient. States that her episode of jaw clenching following surgery in October was different than her previous seizure-like activity. She had normal EEG in October. Iacbuoaiozvop76History of anesthesia qcmvcaopezgwt25/30/2021 11/14/2024History of recent steroid usePreop examination SinusitisMalnutrition of moderate degree ([facility]) Overview (09/27/2024): Improved PO intake, off tube feed for weeks Weight stable - Consult to nutrition for intake assessment - Regular diet - DC PEG Serotonin ivgegqte97Injury to bile duct and gallbladder, initial wyrgibbmk425Acute bgbsbkeelpqmzn76/14/ Unspecified abnormal involuntary jwpikxxaa545Acute respiratory failure with wgezzbl07Tachycardia10/23/ Overview (09/27/2024): On metop XL OP - Resume metop Encounters DateTypeDepartmentCare WxhbPbvlcpxoxsu92/17/2025Patient Outreach [facility] [address] [place] [address] MondayPaz LPN 12/31/2024[facility]phone [facility] [address] [place] [address] Chelsea Hendricks MA Stomach issues (Going to ER)12/27/2024 9:00 AM EDTOffice Visit [facility] [address] [place] [address] Kapil Patel, Gastroparesis (Primary Dx); Anxiety diarrhea; 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 (HCC); Diarrhea, unspecified type; Generalized pain12/27/2024amboo flowsheet [facility] [address] [place] [address] Kapil Patel, DO 12/27/20249022Pvimfl40/09/2025External Result Encounter [facility] External Department Unsolicited Marcelle Ryan MD 12/26/2024External Result Encounter [facility] External Department Unsolicited Marcelle Ryan MD 12/26/2024External Result Encounter [facility] External Department Unsolicited Marcelle Ryan MD 12/25/2024Patient Outreach [facility] [address] [place] [address] Olesya Castillo LPN 12/20/2024bstract [facility] [address] [place] [address] Kapil Patel, DO 12/16/2024Patient Outreach [facility] [address] [place] [address] Ayleen Hopper LPN 12/08/2024linisync Result Encounter [facility] External Department Unsolicited Provider, Generic External Data 12/07/2024[facility]ill [facility] [address] [place] [address] Kapil Patel, DO Generalized pain12/07/2024Refill [facility] [address] [facility] [address] [place] [address] Cole Phillip MD Intractable chronic migraine without aura and with status klityeumzsh63/20/2025 Clinisync Result Encounter [facility] External Department Unsolicited Provider, Generic External Data 12/06/2024linisync Result Encounter [facility] External Department Unsolicited Provider, Generic External Data 12/05/2024Refill [facility] [address] [facility] [address] [place] [address], [place] [phone] Donna Oconnor, SHEN Insomnia, uaqfmawenetpksjkktq94/17/2025[facility] Outreach [place] [place] [address] [place] [address] Monday, Paz, CONSERVATION OR HERITAGE ARCHITECT 12/04/2024bstract [facility] [address] [place] [address] Kapil Patel, DO 12/04/2024Refill [facility] [address] [facility] [address] [place] [address], [place] [phone] Kami Fuentes MA Insomnia, gffowfmtfeymmptdceh70/16/2025Results Follow-Up [facility] [address] [place] [address] Kapil Patel, Comprehensive metabolic panel, Ferritin, Vitamin B12, Additional followed-up results: 13012/02/2024Refill [facility] [address] [place] [address] Kapil Patel, DO Pancreatic insufficiency (HCC) (Primary Dx)12/02/2024Telephone [facility] [address] [place] [address] Kapil Patel, DO 11/30/2024Refill [facility] [address] [place] [address] Cole Phillip MD Depression, unspecified depression type11/29/2024External Result Encounter [facility] External Department Unsolicited Marcelle Ryan MD 11/29/2024External Result Encounter [facility] External Department Unsolicited Marcelle Ryan MD 11/29/2024External Result Encounter [facility] External Department Unsolicited Marcelle Ryan MD 11/29/2024External Result Encounter [facility] External Department Unsolicited Marcelle Ryan MD 11/29/2024External Result Encounter [facility] External Department Unsolicited Marcelle Ryan MD 11/28/2024Patient Outreach [facility] [address] [place] [place] [address] MondayPaz, CONSERVATION OR HERITAGE ARCHITECT 11/22/2024 10:30 AM EDTOffice Visit [facility] [address] [place] [address] Kapil Patel, DO Diarrhea, unspecified type (Primary Dx); Chronic qhwjvrl7111/22/2024bstract [facility] [address] [place] [address] Kapil Patel, DO 11/22/2024amboo flowsheet [facility] [address] [place] [address] Kapil Patel, DO 11/22/20243615Echwon35/04/2025Patient Outreach [facility] [address] [place] [address] Magda Barcenas LPN 11/20/2024bstract [facility] [address] [place] [address] Kapil Patel, DO 11/20/2024bstract [facility] [address] [place] [address] Kapil Patel, DO 11/19/2024bstract [facility] [place] [facility] [address] [place] [address] Kapil Patel, DO 11/19/2024bstract [facility] [place] [facility] [address] [place] [address] Kapil Patel, DO 11/19/2024bstract [facility] [place] [facility] [address] [place] [address] Kapil Patel, DO 11/19/2024bstract [facility] [address] [place] [address] Kapil Patel, DO 11/19/2024bstract [facility] [place] [facility] [address] [place] [address] Kapil Patel, DO 11/18/2024bstract [facility] [address] [place] [address] Kapil Patel, DO 11/14/2024 8:30 AM EDTOffice Visit [facility] [place] [facility] [address] [place] [address] Kapil Patel, DO Generalized pain (Primary Dx); Abdominal pain, unspecified abdominal location; Bdkngk1911/14/2024amboo flowsheet [facility] [place] [facility] [address] [place] [address] Kapil Patel, DO 11/14/20245392Xfbero49/27/2025bstract [facility] [address] [place] [address] Kapil Patel, DO 11/12/20244218Bkplsu92/26/2025Telephone [facility] [address] [place] [address] Kapil Patel, DO Appointment Jbklqga2311/04/2024bstract [facility] [address] [place] [phone] Kami Olvera MD 10/30/2024 2:05 PM EDTAncillary Procedure [facility] [place] [facility] [address] [place] [address] 10/30/2024 2:00 PM EDTOffice Visit [facility] [place] [facility] [address] [place] [phone] Pérez Deleon DPM Hav (hallux abducto valgus), right (Primary Dx); Contracture of right ankle10/30/2024amboo flowsheet [facility] [place] [facility] [address] [place] [address] Pérez Deleon DPM 10/28/2024 3:00 PM EDTOffice Visit [facility] [address] [place] [address] Reji De Luna, DO Thyroid tdvxiy5910/28/2024amboo flowsheet [facility] [address] [place] [address] Reji De Luna, DO 10/28/20242863Vpbcdr25/06/2025Refill [facility] [place] [facility] [address] [place] [address] Cole Phillip MD Migraine without aura, intractable, with status snfauxxdeaj24/05/2025 4:15 PM EDTOffice Visit [facility] [place] [facility] [address] [place] [address] Cole Phillip MD Migraine without aura, intractable, with status migrainosus (Primary Dx); Pituitary gland enlarged (HCC); Insomnia, psychophysiological; Cervical paraspinal muscle spasm; Intractable chronic migraine without aura and with status awbguazfkgr40/05/2025 Refill [facility] [address] [place] [address] [place] [address] Cole Phillip MD Migraine without aura, intractable, with status iasorwrujqa89/05/2025amb flowsheet [facility] [address] [place] [address] Cole Phillip MD 10/22/20249516Ajodon57/30/2025 3:00 PM EDTOffice [facility] [address] [place] [address] Pérez Deleon DPLeif Hav (hallux abducto valgus), right (Primary Dx); Contracture of right ankle10/16/2024amb flowsheet [facility] [place] [facility] [address] [place] [address] Pérez Deleon DPM 10/14/2024Orders Only [facility] [address] [place] [address] Kami Olvera MD Thyroid nodule (Primary Dx)from Last 3 Months Immunizations ImmunizationAdministration DatesNext OzyBHZ6805/03/1993DTP / HiB1994, 1994DTaP, Pxwvntujdyu64/05/2000,10/09/1995HPV, Nntuytwjrnaz54/22/2011, 12/06/2010,10/15/2008HPV, Kyxgrlmtdmw29/01/2012Hep B, Adolescent or Pediatric 1994,1994,1994HiB, gniwmkjkipz85/22/1996,1994IPV 06/23/1999MMR06/23/1999,01/16/1995Meningococcal LSA5Y6212/06/2010,10/15/2008OPV 1994,1994,1994Tdap10/15/20086461Fhmjnqfbg90/19/2011,10/01/2001 Family History Medical HistoryRelationNameCommentsHypertensionFatherAtrial fibrillationMother CancerPaternal GrandfatherDiabetesPaternal GrandfatherRelationNameStatusComments FatherAliveMotherAlivePaternal Grandfather Social History Tobacco UseTypesPacks/DayYears UsedDateSmoking Tobacco: Never Tobacco Cessation:Counseling Given: Yes Alcohol UseStandard Drinks/WeekCommentsNot Currently0 (1 standard drink = 0.6 oz pure alcohol)B1300 Health LiteracyAnswerDate RecordedHow often do you need to have someone help you when you read instructions, pamphlets, or other written material from your doctor or pharmacy?Never11/12/2024Humiliation, Afraid, Rape, and Kick questionnaireAnswerDate RecordedWithin the last year, have you been afraid of your partner or ex-partner?No11/12/2024Within the last year, have you been humiliated or emotionally abused in other ways by your partner or ex-partner?No11/12/2024Within the last year, have you been kicked, hit, slapped, or otherwise physically hurt by your partner or ex-partner?11/12/2024Within the last year, have you been raped or forced to have any kind of sexual activity by your partner or ex-partner?No11/12/2024Social Connection and Isolation Panel AnswerDate RecordedIn a typical week, how many times do you talk on the phone with family, friends, or neighbors?More than three times a week11/12/2024How often do you get together with friends or relatives?Three times a week11/12/2024 How often do you attend yarsanism or religion services?More than 4 times per year 11/12/2024Do you belong to any clubs or organizations such as yarsanism groups, unions, fraternal or athletic groups, or school groups?No11/12/2024ttends Club or Organization MeetingsNot on file11/12/2024re you , , , , never , or living with a partner?Never ilsyypm7711/12/2024 AUDIT-CAnswerDate RecordedQ1: How often do you have a drink containing alcohol? Never11/12/2024Q2: How many drinks containing alcohol do you have on a typical day when you are drinking?Patient does not drink11/12/2024Q3: How often do you have six or more drinks on one occasion?Never11/12/2024Overall Financial Resource Strain (CARDIA)AnswerDate RecordedHow hard is it for you to pay for the very basics like food, housing, medical care, and heating?Not hard at all 11/12/2024PHQ-2AnswerDate RecordedPatient Health Questionnaire-2 Score0 12/27/2024[facility] [place] [facility] - Occupational Stress QuestionnaireAnswerDate RecordedDo you feel stress - tense, restless, nervous, or anxious, or unable to sleep at night because yourmind is troubled all the time - these days?Very much11/12/2024Exercise Vital SignAnswerDate RecordedOn average, how many days per week do you engage in moderate to strenuous exercise (like a brisk walk)?1 day11/12/2024On average, how many minutes do you engage in exercise at this level?10 min11/12/2024Hunger Vital SignAnswerDate Recorded Within the past 12 months, you worried that your food would run out before you got the money to buymore.Never true11/12/2024Within the past 12 months, the food you bought just didn't last and you didn't have money to get more.Never true 11/12/2024PRAPARE - TransportationAnswerDate RecordedIn the past 12 months, has lack of transportation kept you from medical appointments or from getting medications?No11/12/2024In the past 12 months, has lack of transportation kept you from meetings, work, or from getting things needed for daily living?No 11/12/2024Housing Stability Vital SignAnswerDate RecordedIn the last 12 months, was there a time when you were not able to pay the mortgage or rent on time?No 11/12/2024Number of Times Moved in the Last YearNot on file11/12/2024t any time in the past 12 months, were you homeless or living in a mcfp (including now)? No11/12/2024CommentsUnknownSex and Gender InformationValueDate Recorded Sex Assigned at BirthNot on fileLegal ZurKwuyxj65/15/2023 6:39 PM EDTGender HajrgoldOrdaqc80/15/2023 6:39 PM EDTSexual OrientationNot on file Last Filed Vital Signs Vital SignReadingTime TakenCommentsBlood Dimtpxsg904/9812/27/2024 9:17 AM EDT Cpuvo956212/27/2024 9:17 AM ATURfavusctvyv61.1 ??C (96.9 ??F)12/27/2024 9:17 AM EDTRespiratory Xlef342910/30/2024 2:09 PM EDTOxygen Zqnzyjgmjz29%12/27/2024 9:17 AM EDTInhaled Oxygen Concentration--Lxefhg22.8 kg (145 lb)12/27/2024 9:17 AM EDT Jjawut708.2 cm (5' 7 )12/27/2024 9:17 AM EDTBody Mass Index22.7112/27/2024 9:17 AM EDT Plan of Treatment DateTypeDepartmentCare Team (Latest Contact Info)Locdetevthb23/10/2026 2:00 PM ESTOffice Visit [facility] [address] [facility] [address] [place] [address] Cole Phillip MD [address] [facility] [address] [place], [place] [id number] 04/30/2025 2:15 PM ESTOffice Visit [facility] [address] [place] [address] Reji De Luna, DO [address] [place] [address] Health MaintenanceDue DateLast DoneCommentsPap Smear2015Cervical Cancer Dgpjnakwg28/15/2024HPV/Gqzbke1201/02/2024Influenza Vaccine (#1)2026Postponed from 11/18/2024 (Patient Refused) Procedures Procedure NamePriorityDate/TimeAssociated DiagnosisCommentsCOPPERRoutine 12/26/2024 9:43 AM EDT RYTUGKIFROOBVKwkjauj70/09/2025 9:43 AM EDT CBC WITH AUTO FYVTFIIWPSPBMiwmmol02/09/2025 9:43 AM EDT [facility] CMP (CMP) (FOR REMOTE [facility] USE)Wmfootb0712/08/2024 5:32 AM EDT ALL CBC WITH AUTO YZLCDsjzigv37/21/2025 5:32 AM EDT [facility] CMP (CMP) (FOR REMOTE [facility] USE)Sfedzfh3412/07/2024 5:12 AM EDT ALL CBC WITH AUTO TQTWGmabcmw27/20/2025 5:12 AM EDT [facility] INFLUENZA A/B, COVID 2019 PCR,MZPZPKSTNFKSeanfin20/19/2025 5:22 PM EDT ALL RIMXDQHWIIzmhpcb84/19/2025 5:19 PM EDT [facility] CMP (CMP) (FOR REMOTE [facility] USE)Bwzdgqz4112/06/2024 5:19 PM EDT ALL CBC WITH AUTO SFXHJpsfswx21/19/2025 5:[address] SOFT TISSUE NECK W IV ZABMEXQY31/12/2025 1:[address] CHEST W IV EBQTQLQC97/12/2025 1:13 PM EDT ZLFPNMOxnbqqr84/12/2025 8:50 AM EDT EBSVRBULBYGMEUvfmcsb23/12/2025 8:50 AM EDT VIT. B12/FOLATE XFMIMKJLqvidbx92/12/2025 8:50 AM EDT LILNUETMVttncvl78/12/2025 8:50 AM EDT T4, JBOMWyfjntl77/12/2025 8:50 AM EDT DFMRdrwoza70/12/2025 8:50 AM EDT IRON AND TOTAL IRON BINDING ENSISQDPNpwflui69/12/2025 8:50 AM EDT LACTATE JYHFCTRDOYHVXYhpetrn50/12/2025 8:50 AM EDT NIOKTIDjauhja97/09/2025 10:48 AM EDT SQVCDYBkpsixp43/09/2025 10:48 AM EDT NNQOMPNxzbijl01/09/2025 10:48 AM EDT CALPROTECTIN IFGFMVxanxif28/09/2025 10:48 AM EDT Diarrhea, unspecified type Chronic fatigue H. PYLORI ANTIGEN, AVXBVAlyockn12/09/2025 10:48 AM EDT Diarrhea, unspecified type Chronic fatigue IRON + TRANSFERRIN + ILSPUoaueod44/09/2025 10:48 AM EDT Diarrhea, unspecified type Chronic fatigue VHTRLASpjfghq80/09/2025 10:48 AM EDT Diarrhea, unspecified type Chronic fatigue XUDIXGMKjchjxv87/09/2025 10:48 AM EDT Diarrhea, unspecified type Chronic fatigue OVA AND PARASITES WITH GIARDIA OVEJSMXOyyuhud83/09/2025 10:48 AM EDT Diarrhea, unspecified type Chronic fatigue UIADCTXVQDmwxjjf24/09/2025 10:48 AM EDT Diarrhea, unspecified type Chronic fatigue FOLATE, GSSNGQxjsfft13/09/2025 10:48 AM EDT Chronic fatigue VITAMIN H78Mikhsbm16/09/2025 10:48 AM EDT Diarrhea, unspecified type Chronic fatigue GJPCTDWCCycbvqa31/09/2025 10:48 AM EDT Diarrhea, unspecified type Chronic fatigue COMPREHENSIVE METABOLIC FLZRJTkwlsac40/09/2025 10:48 AM EDT Diarrhea, unspecified type Chronic fatigue CLOSTRIDIUM DIFFICILE CNYRQIasfiqk03/09/2025 10:48 AM EDT Diarrhea, unspecified type Chronic fatigue STOOL SKKPRXCIlajzex64/09/2025 10:48 AM EDT Diarrhea, unspecified type Chronic fatigue XR FOOT 3+ VIEWS HSAGXAeazuuu38/13/2025 2:04 PM EDT Hav (hallux abducto valgus), right from Last 3 Months Results * CBC auto differential (12/26/2024 9:43 AM EDT)ComponentValueRef RangeTest MethodAnalysis TimePerformed AtPathologist SignatureWBC7.33.8 - 11.6 [CFU]/mL 12/26/2024 10:21 AM [facility] CtrUNCORRECTED WHITE BLOOD COUNT7.33.8 - 11.6 10*3/uL12/26/2024 10:21 AM [facility] CtrRBC4.613.60 - 5.00 10*6/uL12/26/2024 10:21 AM [facility] ApvBUWCQPABNL26.011.8 - 15.4 g/dL12/26/2024 10:21 AM [facility] YmdRPMSMIBVJQ61.234.0 - 46.4 %12/26/2024 10:21 AM [facility] BrqKOV04.980 - 100 fL12/26/2024 10:21 AM [facility] LqwVDW92.224.7 - 34.3 pg12/26/2024 10:21 AM [facility] KljOIRF19.032.0 - 35.0 g/dL12/26/2024 10:21 AM [facility] CtrRED CELL DISTRIBUTION WIDTH, RDW12.811.9 - 15.3 % 12/26/2024 10:21 AM [facility] CtrPLATELET NJFTU006217 - 450 10*3/uL12/26/2024 10:21 AM [facility] CtrMEAN PLATELET VOLUME, MPV8.26.3 - 10.7 fL12/26/2024 10:21 AM [facility] CtrNEUTROPHILS, %66.5. %12/26/2024 10:21 AM [facility] Ctr LYMPHOCYTES, %22.5. %12/26/2024 10:21 AM [facility] Ctr MONOCYTE/MACROPHAGE, %9.1. %12/26/2024 10:21 AM [facility] CtrEOSINOPHILS, %1.4. %12/26/2024 10:21 AM [facility] Ctr BASOPHILS, %0.5. %12/26/2024 10:21 AM [facility] CtrNRBC0.1 0 - 0.5 /100{WBC}12/26/2024 10:21 AM [facility] Ctr NEUTROPHILS4.81.8 - 7.7 10*3/uL12/26/2024 10:21 AM [facility] CtrLYMPHOCYTES1.61.00 - 4.8 10*3/uL12/26/2024 10:21 AM [facility] CtrMONOCYTES0.70.0 - 0.8 10*3/uL12/26/2024 10:21 AM [facility] CtrEOSINOPHILS0.10.0 - 0.45 10*3/uL12/26/2024 10:21 AM [facility] CtrBASOPHILS0.00.0 - 0.2 10*3/uL12/26/2024 10:21 AM [facility] CtrSpecimen (Source)Anatomical Location / LateralityCollection Method / VolumeCollection TimeReceived TimeBlood (Blood)12/26/2024 9:43 AM EDT1 9:43 AM EDT Narrative Authorizing ProviderResult TypeResult StatusMarcelle PUENTES BLOOD ORDERABLES Final ResultPerforming OrganizationAddressty/State/ZIP CodePhone Number [facility] [address] [place] [address], [facility] [address] [facility] [place] [address] * Copper, serum (12/26/2024 9:43 AM EDT) Only the most recent of2 resultswithin the time period is included. ComponentValueRef RangeTest MethodAnalysis TimePerformed AtPathologist Signature PXOWZV1468 - 158 ug/dL2025 7:36 AM EDTFIRELANDSComment: This test was developed and its performance characteristics determined by [facility]. It has not been cleared or approved by the Food and Drug Administration. ?Detection Limit = 5 Performed at: ?? - [facility] ??[id number] Carry Out Clerk: Carlos Guerra MD, Phone: ??[phone] Specimen (Source)Anatomical Location / LateralityCollection Method / Volume Collection TimeReceived TimeOtherTopography unknown / Uvzlxos5112/26/2024 9:43 AM EDT1 9:43 AM EDT Narrative Authorizing ProviderResult TypeResult StatusMarcelle PUENTES BLOOD ORDERABLES Final ResultPerforming OrganizationAddressCity/State/ZIP CodePhone Number [facility] [address] [place] [address], * Ceruloplasmin (12/26/2024 9:43 AM EDT) Only the most recent of2 resultswithin the time period is included. ComponentValueRef RangeTest MethodAnalysis TimePerformed AtPathologist Signature FWMTVHWWUHLEF79.919.0 - 39.0 mg/dL12/27/2024 4:07 AM EDTFIRELANDSComment: Performed at: ?? - [facility] [place] [address] [place], [place] ??[id number] Carry Out Clerk: Shiva Christopher PhD, Phone: ??[phone] Specimen (Source)Anatomical Location / LateralityCollection Method / Volume Collection TimeReceived TimeOtherTopography unknown / Cmrbhvd6912/26/2024 9:43 AM EDT1 9:43 AM EDT Narrative Authorizing ProviderResult TypeResult StatusMarcelle PUENTES BLOOD ORDERABLES Final ResultPerforming OrganizationAddressCity/State/ZIP CodePhone Number [facility] [address] [place] [address], * (ABNORMAL) [facility] CMP (CMP) (FOR REMOTE CRITICAL ACCESS HOSPITAL USE) (12/08/2024 5:32 AM EDT) Only the most recent of3 resultswithin the time period is included. ComponentValueRef RangeTest MethodAnalysis TimePerformed AtPathologist Signature BNWECCD6575 - 99 mg/dLUHUH YSVFUX359998 - 145 mmol/LUHUH POTASSIUM3.0(L)3.5 - 5.3 mmol/LUHUH NRMTANEJ65608 - 107 mmol/LUHUH KEERIYGTWWI2328 - 32 mmol/LUHUH ANION DXG6898 - 20 mmol/LUHUH UREA LHDCYQBR613 - 23 mg/dLUHUH CREATININE0.600.50 - 1.05 mg/dLUHGFRAT>90>60 mL/min/1.73m*2UHComment: Calculations of estimated GFR are performed using the 2020 CKD-EPI Study Refit equation without therace variable for the IDMS-Traceable creatinine methods. https://jasn.asnjournals.org/content/early//ASN.6687139865 CALCIUM8.88.6 - 10.6 mg/dLUHUH ALBUMIN4.33.4 - 5.0 g/dLUHUH ALKALINE YACNPIEHXIK5553 - 110 U/LUHUH TOTAL PROTEIN6.76.4 - 8.2 g/dLUHUH QIX089 - 39 U/L [facility] BILIRUBIN,TOTAL0.90.0 - 1.2 mg/dLUHUH UAQ462 - 45 U/LUHComment:Patients treated with Sulfasalazine may generate falsely decreased results for ALT. Specimen (Source)Anatomical Location / LateralityCollection Method / Volume Collection TimeReceived IbifXlcji39/21/2025 5:32 AM EDT12/08/2024 6:27 AM EDT Narrative [facility] - 12/08/2024 7:00 AM EDT Original Ordering Provider: ERNIE BALDERAS Authorizing ProviderResult TypeResult StatusGeneric External Data Provider CLINISYNCFinal ResultPerforming OrganizationAddressty/State/ZIP CodePhone Number [facility] [address] [place] [phone] * ALL CBC WITH AUTO DIFF (12/08/2024 5:32 AM EDT) Only the most recent of3 resultswithin the time period is included. ComponentValueRef RangeTest MethodAnalysis TimePerformed AtPathologist Signature WBC5.84.4 - 11.3 x10*3/uLMAGRUDER HOSPITAL NUCLEATED RBC0.00.0 - 0.0 /100 WBCsUH RBC4.57 4.00 - 5.20 x10*6/uLMAGRUDER HOSPITAL HGB12.512.0 - 16.0 g/dLMAGRUDER HOSPITAL HCT36.536.0 - 46.0 %[facility] WEZ6553 - 100 gGBWJUZ54.426.0 - 34.0 pgMAGRUDER HOSPITAL MCHC34.232.0 - 36.0 g/dLMAGRUDER HOSPITAL RDW-CV 11.911.5 - 14.5 %[facility] JSS298114 - 450 x10*3/uLUHSpecimen (Source)Anatomical Location / LateralityCollection Method / VolumeCollection TimeReceived TimeBlood 12/08/2024 5:32 AM EDT12/08/2024 6:27 AM EDT Narrative CLINISYNC - 12/08/2024 6:43 AM EDT Original Ordering Provider: ERNIE BALDERAS Authorizing ProviderResult TypeResult StatusGeneric External Data Provider CLINISYNCFinal ResultPerforming OrganizationAddWellSpan Gettysburg Hospitalty/State/ZIP CodePhone Number [facility] [address] [place] [address] * INFLUENZA A/B, COVID 2019 PCR,SYMPTOMATIC (12/06/2024 5:22 PM EDT)Component ValueRef RangeTest MethodAnalysis TimePerformed AtPathologist Signature INFLUENZA A, PCRNot DetectedNot DetectedMAGRUDER HOSPITAL INFLUENZA B, PCRNot DetectedNot DetectedUHCORONAVIRUS 2019 BY PCR (COV19)NOT DETECTEDNot DetectedUHSpecimen (Source)Anatomical Location / LateralityCollection Method / VolumeCollection TimeReceived WggwCbzd80/19/2025 5:22 PM EDT12/06/2024 5:43 PM EDT Narrative CLINISYNC - 12/06/2024 6:40 PM EDT This assay is an FDA-cleared, in vitro diagnostic nucleic acid amplification test for the qualitative detection and differentiation of SARS CoV-2/ Influenza A/B from nasopharyngeal specimens collected from individuals with signs and symptoms of respiratory tract infections, and has been validated for use at [facility]. Negative results do not preclude COVID-19/ Influenza A/B infections and should not be used as the sole basis for diagnosis, treatment, or other management decisions. Testing for SARS CoV-2 is recommended only for patients who meet current clinical and/or epidemiological criteria defined by federal, state, or local public health directives. Original Ordering Provider: ERNIE BALDERAS Authorizing ProviderResult TypeResult StatusGeneric External Data Provider CLINISYNCFinal ResultPerforming OrganizationAddressCity/State/ZIP CodePhone Number [facility] [address] [place] [phone] * ALL MAGNESIUM (12/06/2024 5:19 PM EDT)ComponentValueRef RangeTest Method Analysis TimePerformed AtPathologist SignatureUH MAGNESIUM2.131.60 - 2.40 mg/dLUHSpecimen (Source)Anatomical Location / LateralityCollection Method / VolumeCollection TimeReceived DwcbNkslm86/19/2025 5:19 PM EDT12/06/2024 5:45 PM EDT Narrative CLINISYNC - 12/06/2024 6:13 PM EDT Original Ordering Provider: ERNIE BALDERAS Authorizing ProviderResult TypeResult StatusGeneric External Data Provider CLINISYNCFinal ResultPerforming OrganizationAddressty/State/ZIP CodePhone Number [facility] [address] [place] [phone] * CT soft tissue neck w IV contrast (11/29/2024 1:16 PM EDT)Anatomical Region LateralityModalityHead, NeckComputed TomographySpecimen (Source)Anatomical Location / LateralityCollection Method / VolumeCollection TimeReceived Time 11/29/2024 1:16 PM EDT Impressions 11/29/2024 1:[address] soft tissue neck. No pathologically enlarged lymph nodes. ? Impression dictated by: Jesus Ledesma Jr., D.O. ??11/29/2024 1:18 PM ? Dictation Location: RADIO-PC-22 ? Transcribed By: ? PWS ?11/29/24 1318 ? Dictated By: ?Jesus Ledesma Jr, DO ?11/29/24 1316 ? Signed By: <Electronically signed by Jesus Ledesma Jr DO in OV> ?11/29/24 1318 Narrative 11/29/2024 1:20 PM EDT [facility] ?[facility] [place] ?[address] ? [place] [address] ? CT Scan Report ? Signed ? Patient: Negro Stacy ?MR#: [id number] ?? 46 ? : 1995 ?Acct:[id number] ? Age/Sex: 29 / F ?ADM Date: 11/29/24 ? Loc: XT ?Room: ?Type: REG RCR ?? Attending Dr: Marcelle Ryan MD ?? Copies to: Marcelle Ryan MD ? Ordering Provider: Marcelle Ryan MD ?? Date of Service: 11/29/24 ?? CT/CT soft tissue neck w con: C81.90 - Hodgkin lymphoma, unspecified, unspecified site ? CT soft tissue neck w con ??11/29/2024 9:24 AM ? SIGNS AND SYMPTOMS: ?? C81.90 - Hodgkin lymphoma, unspecified, unspecified site ? TECHNIQUE: Multidetector CT axial slices of the soft tissues of the neck were obtained with IV contrast. Sagittal and coronal reformats were reconstructed. CT was performed with one or more of the following dose reduction techniques: Automated exposure control, adjustment of the mA and/or kV according to patient size, or use of iterative reconstruction technique. ? COMPARISON: None ? FINDINGS: ?? Mucosal surfaces of the nasopharynx, oropharynx, hypopharynx, glottic, and subglottic airways are grossly unremarkable. ? No pathologically enlarged lymph nodes are noted. ? The parotid glands, submandibular, and the thyroid gland are within normal limits. ? The carotid and jugular circulations are within normal limits. ? No acute bony abnormalities are appreciated. ? CT/CT soft tissue neck w con ?? Procedure Note Jesus Ledesma Jr., DO - 11/29/2024 [facility] [place] [address] CT Scan Report Signed Patient: Negro Stacy KMR#: [id number] 46 : 1995Acct:[id number] Age/Sex: 29 / FADM Date: 11/29/24 Loc: Room:Type: [facility] Attending Dr: Marcelle Ryan MD Copies [...] Jesus Ledesma Jr DO inOV> 11/29/24 1318 Authorizing ProviderResult TypeResult StatusMarcelle Ryan MDHang CT PROCEDURESFinal Result * CT chest w IV contrast (11/29/2024 1:13 PM EDT)Anatomical RegionLaterality ModalityBody, ChestComputed TomographySpecimen (Source)Anatomical Location / LateralityCollection Method / VolumeCollection TimeReceived Time11/29/2024 1:13 PM EDT Impressions 11/29/2024 1:18 PM EDT No acute findings. ??No pathologically enlarged lymph nodes seen within the chest. ? Impression dictated by: Jesus Ledesma Jr., D.O. ??11/29/2024 1:16 PM ? Dictation Location: RADIO-PC-22 ? Transcribed By: ? PWS ?11/29/24 1316 ? Dictated By: ?Jesus CamachoJr arnaldo, DO ?11/29/24 1313 ? Signed By: <Electronically signed by Jesus Ledesma Jr, DO in OV> ?11/29/24 1316 Narrative 11/29/2024 1:18 PM EDT [facility] ?[facility] [place] ?[address] ? [place] [address] ? CT Scan Report ? Signed ? Patient: Regis,Negro K ?MR#: [id number] ?? 46 ? : 1995 ?Acct:[id number] ? Age/Sex: 29 / F ?ADM Date: 11/29/24 ? Loc: XT ?Room: ?Type: REG RCR ?? Attending Dr: Marcelle Ryan MD ?? Copies to: Marcelle Ryan MD ? Ordering Provider: Marcelle Ryan MD ?? Date of Service: 11/29/24 ?? CT/CT chest w con: C81.90 - Hodgkin lymphoma, unspecified, unspecified site ? CT CHEST WITH INTRAVENOUS CONTRAST: ? CLINICAL HISTORY: Restaging Hodgkin's lymphoma. ? COMPARISON: Outside CT chest 05/22/2024. ??No report. ? TECHNIQUE: ??Spiral images were obtained through the chest following intravenous administration of IV contrast. ??This CT exam was performed using one or more following dose reduction techniques: Automated exposure control, adjustment of the mA and/or kV according to patient size, or use of iterative reconstruction technique. ? FINDINGS: ? Mediastinum:Thoracic aorta appears normal in caliber. ??Pulmonary trunk appears nondilated. ??No pericardial effusion. ??Residual thymic tissue is present. ??No lymphadenopathy. ??The esophagus is grossly unremarkable. ? Lungs:No consolidation pneumothorax or pleural effusion. ??Mild dependent atelectatic changes. ? Abd:No acute process. ??No lymphadenopathy. ? Soft tissues/Bones: No axillary or subpectoral lymphadenopathy. ??Osseous structures demonstrate minimal degenerative change. ? CT/CT chest w con ?? Procedure Note Jesus Ledesma Jr., DO - 11/29/2024 [facility] [place] [address] [place] [address] CT Scan Report Signed Patient: Negro Stacy KMR#: [id number] 46 : 1995Acct:[id number] Age/Sex: 29 / FADM Date: 11/29/24 Loc: XT Room:Type: [facility] Attending Dr: Marcelle Ryan MD Copies [...] nodes seen within thechest. Impression dictated by: Erma Lopez Jr.OGhassan 11/29/2024 1:16 PM Dictation Location: [place] [address] Transcribed By: [facility] 11/29/24 1316 Dictated By: Jesus Ledesma Jr, DO 11/29/24 1313 Signed By: <Electronically signed by Jesus Ledesma Jr, DO inOV> 11/29/24 1316 Authorizing ProviderResult TypeResult StatusMarcelle RODRIGUEZG CT PROCEDURESFinal Result * VIT. B12/FOLATE PROFILE (11/29/2024 8:50 AM EDT)ComponentValueRef RangeTest MethodAnalysis TimePerformed AtPathologist SignatureVITAMIN [id number] - 914 pg/mL11/29/2024 11:10 AM [facility] CtrFOLATE9.3>5.9 ng/mL 11/29/2024 11:08 AM [facility] CtrComment: Folate reference range: >5.9 ng/ml The WHO technical consultation on folate and vitamin b12 deficiencies has determined that folate concentrations less than 4 ng/ml are considered deficient. Specimen (Source)Anatomical Location / LateralityCollection Method / Volume Collection TimeReceived TimeOtherTopography unknown / Polmxbv0211/29/2024 8:50 AM EDT11/29/2024 8:54 AM EDT Narrative Authorizing ProviderResult TypeResult StatusMarcelle PUENTES BLOOD ORDERABLES Final ResultPerforming OrganizationAddressCity/State/ZIP CodePhone Number [facility] [address] [place] [address], [facility] [address] [place] [address] * (ABNORMAL) Iron and TIBC (11/29/2024 8:50 AM EDT)ComponentValueRef RangeTest MethodAnalysis TimePerformed AtPathologist VffdrpeimIRCK39334 - 212 ug/dL 11/29/2024 10:44 AM [facility] CtrTOTAL IRON BINDING XFTEKIQX328(L)255 - 450 ug/dL11/29/2024 10:44 AM [facility] Ctr% IRON QYEAMPSFCO11.120 - 50 %11/29/2024 10:44 AM [facility] NujNJUOGFWHAAS936(L)203 - 362 mg/dL11/29/2024 10:44 AM [facility] CtrSpecimen (Source)Anatomical Location / Laterality Collection Method / VolumeCollection TimeReceived TimeOtherTopography unknown / Ijrmfsa1111/29/2024 8:50 AM EDT11/29/2024 8:54 AM EDT Narrative Authorizing ProviderResult TypeResult StatusMarcelle Ryan MDLAB BLOOD ORDERABLES Final ResultPerforming OrganizationAddressCity/State/ZIP CodePhone Number [address] [address], [facility] [address] [place] [address] * (ABNORMAL) TSH (11/29/2024 8:50 AM EDT)ComponentValueRef RangeTest Method Analysis TimePerformed AtPathologist SignatureTHYROID STIMULATING HORMONE0.33 (L)0.45 - 5.33 u[iU]/mL11/29/2024 10:59 AM [facility] Ctr Specimen (Source)Anatomical Location / LateralityCollection Method / Volume Collection TimeReceived TimeOtherTopography unknown / Vhefxlh6411/29/2024 8:50 AM EDT11/29/2024 8:54 AM EDT Narrative Authorizing ProviderResult TypeResult StatusMarcelle PUENTES BLOOD ORDERABLES Final ResultPerforming OrganizationAddressCity/State/ZIP CodePhone Number [facility] [address] [place] [address], [facility] [address] [place] [address] * T4, free (11/29/2024 8:50 AM EDT)ComponentValueRef RangeTest MethodAnalysis TimePerformed AtPathologist SignatureFREE T4 (FREE THYROXINE)0.620.61 - 1.12 ng/dL11/29/2024 11:00 AM [facility] CtrSpecimen (Source) Anatomical Location / LateralityCollection Method / VolumeCollection Time Received TimeOtherTopography unknown / Xmkrkdr7911/29/2024 8:50 AM EDT11/29/2024 8:54 AM EDT Narrative Authorizing ProviderResult TypeResult StatusMarcelle Ryan MDLAB BLOOD ORDERABLES Final ResultPerforming OrganizationAddressCity/State/ZIP CodePhone Number [address] [address], [facility] [address] [place] [address] * Lactate dehydrogenase (11/29/2024 8:50 AM EDT)ComponentValueRef RangeTest MethodAnalysis TimePerformed AtPathologist SignatureLDH LACTATE DEHYDROGENASE 752024 - 271 U/L11/29/2024 10:44 AM [facility] CtrSpecimen (Source)Anatomical Location / LateralityCollection Method / VolumeCollection TimeReceived TimeOtherTopography unknown / Idmheoq6811/29/2024 8:50 AM EDT 11/29/2024 8:54 AM EDT Narrative Authorizing ProviderResult TypeResult StatusMarcelle Ryan MDLAB BLOOD ORDERABLES Final ResultPerforming OrganizationAddressty/State/ZIP CodePhone Number [address] [address], [facility] [address] [place] [address] * Ferritin (11/29/2024 8:50 AM EDT) Only the most recent of2 resultswithin the time period is included. ComponentValueRef RangeTest MethodAnalysis TimePerformed AtPathologist Signature WGIKCHSR69.911.0 - 306.8 ng/mL11/29/2024 11:05 AM [facility] CtrSpecimen (Source)Anatomical Location / LateralityCollection Method / Volume Collection TimeReceived TimeOtherTopography unknown / Tdbcqul2311/29/2024 8:50 AM EDT11/29/2024 8:54 AM EDT Narrative Authorizing ProviderResult TypeResult StatusMarcelle Ryan MDLAB BLOOD ORDERABLES Final ResultPerforming OrganizationAddWellSpan Gettysburg Hospitalty/State/ZIP CodePhone Number [address] [address], [facility] [address] [place] [address] * RESULT (11/26/2024 10:48 AM EDT)ComponentValueRef RangeTest MethodAnalysis TimePerformed AtPathologist SignatureRESULT 1CommentLABCORPComment: No ova, cysts, or parasites seen. One negative specimen does not rule out the possibility of a parasitic infection. Specimen (Source)Anatomical Location / LateralityCollection Method / Volume Collection TimeReceived Time11/26/2024 10:48 AM EDT11/26/2024 Narrative [facility] - 12/03/2024 8:07 AM EDT Performed at: [address] [place] [id number] Carry Out Clerk: Shiva Christopher PhD, Phone: ??[phone] Authorizing ProviderResult TypeResult StatusMatthew C Petznick DOLAB BLOOD ORDERABLESFinal ResultPerforming OrganizationAddressCity/[facility] [place]Phone Number [facility] * RESULT (11/26/2024 10:48 AM EDT)ComponentValueRef RangeTest MethodAnalysis TimePerformed AtPathologist SignatureRESULT 1CommentLABCORPComment:No Campylobacter species isolated.Specimen (Source)Anatomical Location / LateralityCollection Method / VolumeCollection TimeReceived Time11/26/2024 10:48 AM EDT11/26/2024 Narrative [facility] - 12/03/2024 8:07 AM EDT Performed at: [address] ??[id number] Carry Out Clerk: Shiva Christopher PhD, Phone: ??[phone] Authorizing ProviderResult TypeResult StatusMatthew C Petznick DOLAB BLOOD ORDERABLESFinal ResultPerforming OrganizationAddressCity/[facility] [place]Phone Number [facility] * RESULT (11/26/2024 10:48 AM EDT)ComponentValueRef RangeTest MethodAnalysis TimePerformed AtPathologist SignatureRESULT 1CommentLABCORPComment:No Salmonella or Shigella recovered.Specimen (Source)Anatomical Location / LateralityCollection Method / VolumeCollection TimeReceived Time11/26/2024 10:48 AM EDT11/26/2024 Narrative [facility] - 12/03/2024 8:07 AM EDT Performed at: [address] [place] [address] ??[id number] Carry Out Clerk: Shiva Christopher PhD, Phone: ??[phone] Authorizing ProviderResult TypeResult StatusMatthew C Petznick DOLAB BLOOD ORDERABLESFinal ResultPerforming OrganizationAddressCity/State/ZIP CodePhone Number [facility] * Ova and parasites with giardia antigen (11/26/2024 10:48 AM EDT)ComponentValue Ref RangeTest MethodAnalysis TimePerformed AtPathologist SignatureOVA + PARASITE EXAMFinal reportLABCORPComment: These results were obtained using wet preparation(s) and trichrome stained smear. This test does not include testing for Cryptosporidium parvum, Cyclospora, or Microsporidia. Giardia lamblia Ag, EIANegativeNegativeLABCORPSpecimen (Source)Anatomical Location / LateralityCollection Method / VolumeCollection TimeReceived TimeStool Rectal contents / Nmqyumw7111/26/2024 10:48 AM EDT11/26/2024omment: [facility] [id number] Narrative [facility] - 12/03/2024 8:07 AM EDT Performed at: 01 - [address] ??[id number] Carry Out Clerk: Shiva Christopher PhD, Phone: ??[phone] Authorizing ProviderResult TypeResult StatusMatthew Tima LAMBERT BODY FLUIDS AND STOOLS ORDERABLESFinal ResultPerforming OrganizationAddressCity/State/ZIP CodePhone Number [facility] * CALPROTECTIN STOOL (11/26/2024 10:48 AM EDT)ComponentValueRef RangeTest Method Analysis TimePerformed AtPathologist SignatureCALPROTECTIN, RDPGK806 - 120 ug/gLABCORPComment: Concentration ? Interpretation ?? Follow-Up < 5 - 50 ug/g Normal None >50 -120 ug/g Borderline Re-evaluate in 4-6 weeks >120 ug/g Abnormal Repeat as clinically ? indicated Specimen (Source)Anatomical Location / LateralityCollection Method / Volume Collection TimeReceived TimeStoolRectal contents / Hmugdhx7211/26/2024 10:48 AM EDT11/26/2024 Narrative [facility] - 12/03/2024 8:07 AM EDT Performed at: 02 - [address] ??[id number] Carry Out Clerk: Carlos Guerra MD, Phone: ??[phone] Authorizing ProviderResult TypeResult StatusMatthew C Petznick DOLAB BODY FLUIDS AND STOOLS ORDERABLESFinal ResultPerforming OrganizationAddressty/State/ZIP CodePhone Number [facility] * Iron + transferrin + TIBC (11/26/2024 10:48 AM EDT)ComponentValueRef RangeTest MethodAnalysis TimePerformed AtPathologist SignatureIron Bind.Cap.(TIBC)256 250 - 450 ug/iJSTXWZAGRUTE716351 - 425 ug/cFCWITNXWSoek9663 - 159 ug/dLLABCORP Iron Hovblbunzr0502 - 55 %KWYEUYUJHWJNGNICHL587168 - 364 mg/dLLABCORPSpecimen (Source)Anatomical Location / LateralityCollection Method / VolumeCollection TimeReceived SjezVjpei31/09/2025 10:48 AM EDT11/26/2024 Narrative [facility] - 12/03/2024 8:07 AM EDT Performed at: 01 - Lab[address] ??[id number] Carry Out Clerk: Shiva Christopher PhD, Phone: ??[phone] Authorizing ProviderResult TypeResult StatusMatthew C Petznick DOLAB BLOOD ORDERABLESFinal ResultPerforming OrganizationAddWellSpan Getty[facility] Hospitalty/State/ZIP CodePhone Number [facility] * H. pylori antigen, stool (11/26/2024 10:48 AM EDT)ComponentValueRef RangeTest MethodAnalysis TimePerformed AtPathologist SignatureH. PYLORI STOOL AG, EIA NegativeNegativeLABCORPSpecimen (Source)Anatomical Location / Laterality Collection Method / VolumeCollection TimeReceived TimeStoolRectal contents / Hnkprjw2011/26/2024 10:48 AM EDT11/26/2024omment: - [id number] Narrative [facility] - 12/03/2024 8:07 AM EDT Performed at: 01 - [address] ??[id number] Carry Out Clerk: Shiva Christopher PhD, Phone: ??[phone] Authorizing ProviderResult TypeResult StatusMatthew C Petznick DOLAB BODY FLUIDS AND STOOLS ORDERABLESFinal ResultPerforming OrganizationAddressWilson Street Hospital/State/ZIP CodePhone Number [facility] * Clostridium difficile toxin (11/26/2024 10:48 AM EDT)ComponentValueRef Range Test MethodAnalysis TimePerformed AtPathologist SignatureC DIFFICILE, CYTOTOXIN BCommentLABCORPComment: Negative No cytotoxin detected. ?Reference Range: Negative Specimen (Source)Anatomical Location / LateralityCollection Method / Volume Collection TimeReceived TimeStoolRectal contents / Qajdrfq5811/26/2024 10:48 AM EDT11/26/2024omment: - [id number] Narrative [facility] - 12/03/2024 8:07 AM EDT Performed at: 01 - [address] ??[id number] Carry Out Clerk: Shiva Christopher PhD, Phone: ??[phone] Authorizing ProviderResult TypeResult StatusMattrohith C Jorge CROOKAB MICROBIOLOGY - GENERAL ORDERABLESFinal ResultPerforming OrganizationAddress City/[facility]/ZIP CodePhone Number [facility] * Stool culture (11/26/2024 10:48 AM EDT)ComponentValueRef RangeTest Method Analysis TimePerformed AtPathologist SignatureSALMONELLA/SHIGELLA SCREENFinal reportLABCORPCAMPYLOBACTER CULTUREFinal reportLABCORPE COLI SHIGELLA TOXIN EIA NegativeNegativeLABCORPSpecimen (Source)Anatomical Location / Laterality Collection Method / VolumeCollection TimeReceived TimeStoolRectal contents / Qfnyxgp6911/26/2024 10:48 AM EDT5Comment: - [id number] Narrative [facility] - 12/03/2024 8:07 AM EDT Performed at: 01 - Lab[address] ??[id number] Carry Out Clerk: Shiva Christopher PhD, Phone: ??[phone] Authorizing ProviderResult TypeResult StatusMatthew C Jorge CROOKAB MICROBIOLOGY - GENERAL ORDERABLESFinal ResultPerforming OrganizationAddress City/State/[facility] CodePhone Number [facility] * (ABNORMAL) Magnesium (11/26/2024 10:48 AM EDT)ComponentValueRef RangeTest MethodAnalysis TimePerformed AtPathologist SignatureMagnesium2.4(H)1.6 - 2.3 mg/dLLABCORPSpecimen (Source)Anatomical Location / LateralityCollection Method / VolumeCollection TimeReceived TimeBloodVenous blood specimen / Unknown 11/26/2024 10:48 AM EDT11/26/2024 Narrative [facility] - 12/03/2024 8:07 AM EDT Performed at: [address] [place] [address] ??[id number] Carry Out Clerk: Shiva Christopher PhD, Phone: ??[phone] Authorizing ProviderResult TypeResult StatusMattw C PetznSandvine DOLAB BLOOD ORDERABLESFinal ResultPerforming OrganizationAddressWilson Street Hospital/[facility]/ZIP CodePhone Number [facility] * Lipase (11/26/2024 10:48 AM EDT)ComponentValueRef RangeTest MethodAnalysis TimePerformed AtPathologist BxmqoxxcwEMEFHM2457 - 72 U/[facility]PSpecimen (Source)Anatomical Location / LateralityCollection Method / VolumeCollection TimeReceived TimeBloodVenous blood specimen / Bmjyrxm0511/26/2024 10:48 AM EDT 11/26/2024 Narrative [facility] - 12/03/2024 8:07 AM EDT Performed at: [address] [place] [address] ??[id number] Carry Out Clerk: Shiva Christopher PhD, Phone: ??[phone] Authorizing ProviderResult TypeResult StatusMatthew C Petznick DOLAB BLOOD ORDERABLESFinal ResultPerforming OrganizationAddWellSpan Gettysburg Hospitalty/State/ZIP CodePhone Number [facility] * Folate (11/26/2024 10:48 AM EDT)ComponentValueRef RangeTest MethodAnalysis TimePerformed AtPathologist SignatureFolate6.4>3.0 ng/mLLABCORPComment: A serum folate concentration of less than 3.1 ng/mL is considered to represent clinical deficiency. Specimen (Source)Anatomical Location / LateralityCollection Method / Volume Collection TimeReceived TimeBloodVenous blood specimen / Omhoosa5311/26/2024 10:48 AM EDT11/26/2024 Narrative [facility] - 12/03/2024 8:07 AM EDT Performed at: [address] ??[id number] Carry Out Clerk: Shiva Christopher PhD, Phone: ??[phone] Authorizing ProviderResult TypeResult StatusMatthew C Petznkorina DOLAB BLOOD ORDERABLESFinal ResultPerforming OrganizationAddWellSpan Getty[facility] Hospitalty/State/ZIP CodePhone Number [facility] * Vitamin B12 (11/26/2024 10:48 AM EDT)ComponentValueRef RangeTest Method Analysis TimePerformed AtPathologist SignatureVitamin [id number] - 1,245 pg/mL [facility]pecimen (Source)Anatomical Location / LateralityCollection Method / VolumeCollection TimeReceived TimeBloodVenous blood specimen / Unknown 11/26/2024 10:48 AM EDT11/26/2024 Narrative [facility] - 12/03/2024 8:07 AM EDT Performed at: [address] ??[id number] Carry Out Clerk: Shiva Christopher PhD, Phone: ??[phone] Authorizing ProviderResult TypeResult StatusMatthew C Petznkorina DOLAB BLOOD ORDERABLESFinal ResultPerforming OrganizationAddressty/[facility] CodePhone Number [facility] * Amylase (11/26/2024 10:48 AM EDT)ComponentValueRef RangeTest MethodAnalysis TimePerformed AtPathologist NpuhsmjhcIVZSFSX2376 - 110 U/[facility]PSpecimen (Source)Anatomical Location / LateralityCollection Method / VolumeCollection TimeReceived TimeBloodVenous blood specimen / Ckrtvoi5811/26/2024 10:48 AM EDT 11/26/2024 Narrative [facility] - 12/03/2024 8:07 AM EDT Performed at: [address] [place] [address] ??[id number] Carry Out Clerk: Shiva Christopher PhD, Phone: ??[phone] Authorizing ProviderResult TypeResult StatusMatthew C Petznick DOLAB BLOOD ORDERABLESFinal ResultPerforming OrganizationAddressCity/State/ZIP CodePhone Number [facility] * Comprehensive metabolic panel (11/26/2024 10:48 AM EDT)ComponentValueRef Range Test MethodAnalysis TimePerformed AtPathologist TwgpbgehhEscxawi0964 - 99 mg/bRXEONGWOOHJ723 - 20 mg/dLLABCORPCreat0.850.57 - 1.00 mg/bQSZZTCCZMSTO86>59 mL/min/1.73[facility]ABC[facility]PBUN/Creat Zrttr944 - 27UXITJHICuqgxg698805 - 144 mmol/L [facility]PPotassium4.33.5 - 5.2 mmol/OKHMBQKDArmwtllr72249 - 106 mmol/[facility] Carbon Dymwsgj9562 - 29 mmol/[facility]PCalcium9.58.7 - 10.2 mg/dLLABCORPProtein Total7.16.0 - 8.5 g/dLLABCORPAlbumin4.74.0 - 5.0 g/dLLABCORPGlobulin Total2.4 1.5 - 4.5 g/dLLABCORPBili Total0.20.0 - 1.2 mg/dLLABCORPAlk Hulhjcynqey9933 - 121 IU/[facility]PComment: Effective December 02, 2024 Alkaline Phosphatase ??reference interval will be changing to: ? Age ?Male ?Female ?0 - ??5 days ? 47 - 127 ? 47 - 127 ?6 - 10 days ? 29 - 242 ? 29 - 242 ? 11 - 20 days ?109 - 357 ?109 - 357 ? 21 - 30 days ? 94 - 494 ? 94 - 494 ?1 - ??2 months ?149 - 535 ?149 - 539 ?3 - ??6 months ?131 - 452 ?131 - 452 ?7 - 11 months ?117 - 401 ?117 - 401 ??12 months - ??6 years ? 158 - 369 ?158 - 369 ?7 - 12 years ? 150 - 409 ?150 - 409 ?13 years ? 156 - 435 ? 78 - 227 ?14 years ? 114 - 375 ? 64 - 161 ?15 years ?88 - 279 ? 56 - 134 ?16 years ?74 - 207 ? 51 - 121 ?17 years ?63 - 161 ? 47 - 113 ? 18 - 20 years ?51 - 125 ? 42 - 106 ? 21 - 50 years ?47 - 123 ? 41 - 116 ? 51 - 80 years ?49 - 135 ? 51 - 125 >80 years 48 - 129 48 - 129 GWI874 - 40 IU/MEEIXKMQONN35 - 32 IU/[facility]pecimen (Source)Anatomical Location / LateralityCollection Method / VolumeCollection TimeReceived TimeBlood Venous blood specimen / Cgzmrng4711/26/2024 10:48 AM EDT11/26/2024 Narrative [facility] - 12/03/2024 8:07 AM EDT Performed at: - [facility] [address], [place], [place] ??[id number] Carry Out Clerk: Shiva Christopher PhD, Phone: ??[phone] Authorizing ProviderResult TypeResult StatusMattrohith Tima CROOKAB BLOOD ORDERABLESFinal ResultPerforming OrganizationAddressCity/State/ZIP CodePhone Number [facility] * XR foot 3+ views right (10/30/2024 2:04 PM EDT)Anatomical RegionLaterality ModalityLower Extremities, FootRightRadiographic ImagingSpecimen (Source) Anatomical Location / LateralityCollection Method / VolumeCollection Time Received Time Narrative 10/30/2024 2:11 PM EDT Imaging Result: Notable bunionectomy site intact screw fixation intact and minimal edema to bunionectomy site Authorizing ProviderResult TypeResult StatusNicholjaymie Deleon DPMIMG XR PROCEDURESFinal Result from Last 3 Months Insurance Care Teams Team MemberRelationshipSpecialtyStart DateEnd Kapil Patel DO [address] [place] [address] [facility] - [facility] Kapil Patel DO [address] [place] [address] PCP - Amita [facility]10/24/24
--- OUTSIDE RECORDS SUMMARY | 2025-01-13 20:39 | XMS_ITS | Encounter Summary ---
Author Organization [facility] Address [address] [place] [address] Phone Care Team Providers Care Engineer Byproduct Name Role Phone Kami Olvera MD Primary Care Provider [phone] Encounter Details DateTypeDepartmentCare Team (Latest Contact Info)Yrbwbypfhxl79/22/2025Telephone [facility] [address] [place] [address] [place] [address] [address] [place], [place] [id number] Social History Tobacco UseTypesPacks/DayYears UsedDateSmoking Tobacco: Never Assessed CommentsUnknownSex and Gender InformationValueDate RecordedSex Assigned at Not on fileLegal ZqoWaewax75/26/2022 6:57 PM ESTGender IdentityNot on fileSexual OrientationNot on filedocumented as of this encounter Functional Status documented as of this encounter Plan of Treatment Not on file documented as of this encounter Visit Diagnoses Not on filedocumented in this encounter Additional Health Concerns InfectionOnset DateLast IndicatedResolved TimeC. difficile Rule-Out12/08/2024 8:42 PM EDTGastrointestinal Rule-Out12/15/2024 8:40 PM EDTdocumented as of this encounter Care Teams Team MemberRelationshipSpecialtyStart DateEnd Date Kami Olvera MD [address] [place] [address] PCP - General03/20/99documented as of this encounter
--- OUTSIDE RECORDS SUMMARY | 2025-01-13 20:39 | XMS_ITS ---
Author Organization [facility] Address [address] [place] [address] Care Team Providers Care Clinical Systems Analyst Name Role Phone Kami Olvera MD Primary Care Provider [phone] David House MD Unavailable [phone] Rubens Singh MD Unavailable [phone] Kapil Patel DO Unavailable [phone] Active Problems * This document contains information received from the source organization and may not represent a complete record from that organization. Patient Care Coordination No te Formatting of this note is d ifferent from the original. Indication for MICU Admission: Acute hypoxic resp failure Significant PMH/PSH: - s/p open Bile Duct Exploration, resection of extrahepatic bile duct??and Retrocolic Mendy en Y Hepaticojejunostomy??on 04/24/2019 for CBD stricture s/p lap gretta c/b malnutrition and lack of po intake(gastroparesis/food intolerance) post J tube placement on 12/2020 [...] was negative for seizure- did have episodes oftremors that were negative for seizure during those episodes. Significant New Events Past 24 hrs: 05/19: Pt tried on CPAP yesterday with episodes of apnea. This morning , all sedation held. CPAP 5/5. Pt has multiple episodes where she would be wide awake, noddingto questions and trying to write and then periods of apnea with unresponsiveness. Her O2 sat would drop only with prolonged apnea. Her HR and bp remained the same. Pt did have tremors, but EEG read neg during these intermittent episodes. She was extubated to NC, then became anxious, tearful, sayingshe couldn't breathe. She then had the same [...] MICU- Day 2 transfer to the floor ProblemNoted DateDiagnosed DateCellulitis at gastrostomy tube site09/06/2021 Overview (09/07/2021): Assessment- patient with pus from around PEG tube site Plan EGD with removal in am Generalized pain09/06/2021 Overview (09/07/2021): Patient c/o general body aches Follows pal med OP Dr House started patient on MS contin 15mg BID and was referred to Palliative medicine She follows with Palliative medicine and MS Contin was increased to q8h - Pall med consult - Continue MS Contin 15 Q8 - C/W lidocaine patch 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07/27/2021 Overview (09/07/2021): ONCOLOGIC HISTORY: ?? Admitted in June 2021 [...] scheduled Sunday 09/10 for 10am Posterior glottic xldovmko57/08/2022 Assessment & Plan (05/27/2021 9:42 AM EST): Assessment: admitted pre op PLAN: OR completed, monitor patient Acute respiratory failure with ajsmgch71/28/2022Preop dbwfdvuevtz00/30/2021 Assessment & Plan (02/16/2021 11:00 AM EST): Scheduled for surgery 02/18 at [facility]/30/2021 Assessment & Plan (02/16/2021 11:01 AM EST): Complex GI history with PEG placement in December and unable to substantially increase TF. Planning conversion to J tube on 02/18 Psychogenic nonepileptic tfttllk0802/16/2021 Assessment & Plan (02/16/2021 11:07 AM EST): H/O psychogenic nonepileptic seizures, last occurring in 2018 per patient. States that her episode of jaw clenching following surgery in October was different than her previous seizure-like activity. She had normal EEG in October. Bzbtcifvz92/30/2021 Assessment & Plan (02/16/2021 11:05 AM EST): Recent sinus infection, completed antibiotics two days ago and steroids three days ago. Will message Dr. Pineda to confirm that he is agreeable to proceed. History of recent steroid use02/16/2021 Assessment & Plan (02/16/2021 11:05 AM EST): Received medrol kaylin with sinusitis, last dose approximately 02/13/21 History of anesthesia oacmvkejqgdtc16/30/2021 Assessment & Plan (02/16/2021 11:03 AM EST): Complex history of anesthesia complications detailed below. Most recently with serotonin syndrome in December but also had episode of jaw clenching following surgery in October, both requiring admission and monitoring. Additionally has history of being difficult to sedate, PONV and occasional poor IVaccess. Will notify [facility] of patient history. Sgvrrimfat64/30/2021 Overview (09/07/2021): - C/W Wellbutrin and effexor Assessment & Plan (02/16/2021 11:07 AM EST): Typically on welbutrin and effexor but states that she was instructed to hold her effexor one week prior to surgery per her neurologist. Malnutrition of moderate bfmikq0312/23/2020 Overview (09/07/2021): Improved PO intake, off tube feed for weeks Weight stable - Consult to nutrition for intake assessment - Regular diet - DC PEG Serotonin /05/2021 Assessment & Plan (02/16/2021 11:04 AM EST): See anesthesia complications above. Occurred in December 2020 following PEG placement. Patient states she was instructed by her neurologist to hold effexor one week prior to surgery to avoid recurrentepisode. Zdveolkp90/10/2021 Assessment & Plan (02/16/2021 11:06 AM EST): H/O migraines managed with emgality monthly. Does present with hemiplegic symptoms. Assessment & Plan (10/27/2020 4:00 PM EDT): Assessment: Stablie on Emgality once a month. Has Maxalt for use PRN Dfqkzu6610/27/2020Mild protein-calorie dcgyciymwkqm93/26/2021 Assessment & Plan (06/03/2021 12:45 PM EDT): Assessment: On cyclic TF pre op PLAN: peg leaking, consult Gen surg, TF as ordered PEG/J not replaced and peg will be replaced outpatient, sutured a bumper, balloon deflated to 5 cc no leak, trial oral intake failed Injury to bile duct and gallbladder, initial zyvheuwsq65/07/2017PFO (patent foramen ovale)02/03/20152561Hkzdtpwkucr61/06/2015 Overview (09/07/2021): On metop XL OP - Resume metop Conversion disorder with abnormal sqptxbho49/04/2015Migraine with aura, with intractable migraine, so stated, without mention of status quvmluuejsa04/22/2014 Pituitary iexmbmdj29/12/2012 Current Treatment and Therapy Plans No current plan information found. Past Treatment and Therapy Plans Plan NameStart DateDiscontinue DateTreatment MedicationsDiscontinue ReasonPlan ProviderCyclesAMB LEUPROLIDE 3.75 D1 - MONTHLY* leuprolide (LUPRON DEPOT) Treatment David Ontiveros MD6 of 12 cycles startedAMB LEUPROLIDE 7.5 D1 - Q30D/08/2021* leuprolide (LUPRON DEPOT) David Strauss MD1 of 13 cycles startedPlan NameStart DateDiscontinue DateTreatment MedicationsDiscontinue ReasonPlan ProviderCyclesAMB HYDRATION - ONCE/10/2022No medications scheduled.Odette Slade PA-C1 of 1 cycle startedPlan NameStart DateDiscontinue DateTreatment MedicationsDiscontinue ReasonPlan ProviderCyclesAMB ABVD - DOXORUBICIN 25 VINBLASTINE 6 BLEOMYCIN 10 DACARBAZINE 375 D1,15 - Q28D/03/2021* bleomycin iv piggyback (BLENOXANE) * dacarbazine iv piggyback (DTIC-DOME) * DOXOrubicin (ADRIAMYCIN) * fosaprepitant (EMEND) * fosaprepitant iv piggyback in NaCl 0.9% (EMEND) * palonosetron (ALOXI) * vinBLAStine (VELBAN) Treatment Rubens Wolf MD6 of 6 cycles started Lifetime Dose Tracking * ChemicalLifetime DoseAutomatic EntryManual Tixacxpfedvooybh730.339 mg/m2 (598.5 mg)324.339 mg/m2 (598.5 mg)0 mg/m2 (0 mg)arvwwhkiz00.2 Units73.2 Units0 Units Resolved Problems ProblemNoted DateDiagnosed DateResolved DateFebrile njdmzcrkjyv37/20/2022 09/08/2021 Overview (09/07/2021): Afebrile since admission Source likely PEG tube site Abd culture GPC + rare yeast - BCx in process - Doxy for 10 day course - PEG tube removal tomorrow Altered mental yuossy42/14/20200321/3180Hmpagxvz68//20200320/1RUQ pain 2832Khmqcmrzysmryxwqooo32/05/202002/11/2020Abdominal pain Nonspecific abnormal results of endocrine function study 1Postural imkuzwfvv08
--- OUTSIDE RECORDS SUMMARY | 2025-01-13 20:39 | XMS_ITS | Clinical Summary ---
Author Organization [employer] [facility] [employer] Address [id number] [address] [place] [address] Care Team Providers Care Oriental Medicine Practitioner Name Role Phone Unavailable Primary Care Provider Unavailabl e Social History Tobacco UseTypesPacks/DayYears UsedDateSmoking Tobacco: Never AssessedChildcare AnswerDate PrzxkgkjTtaykohtpSjjrxug53/12/2019EmploymentAnswerDate Recorded ZxvltpazsyBpyddep31/12/2019Purpose - LifeAnswerDate RecordedPurpose and direction in ooqaWvsgfio75/11/2021CommentsUnknownSex and Gender InformationValueDate RecordedSex Assigned at BirthNot on fileLegal SexFemale 10/23/2014 12:12 PM EDTGender IdentityNot on fileSexual OrientationNot on file Plan of Treatment Not on file Medical Devices Not on file Insurance MemberSubscriberPlan / Payer (Effective 2014-Present)Name:Negro Stacy Relation to Subscriber:ChildName:RY STACY Date of :1971 Address: [address] [place] [address] Payer ID:Not on file Type:Not on file Address: [address] [place] [id number]
--- OUTSIDE RECORDS SUMMARY | 2025-01-13 20:39 | XMS_ITS | Encounter Summary ---
Author Organization [facility] Address [address] [address] Care Team Providers Care General Utility Worker Name Role Phone Kapil Patel DO Primary Care Provider [phone] Kapil Patel DO Unavailable Reason for Visit * ReasonOnset DateCommentsStomach infdyy3412/31/2024Going to ER Encounter Details DateTypeDepartmentCare Team (Latest Contact Info)Cygvshkdweb56/14/2025Telephone [facility] [address] [place] [address] Chelsea Hendricks MA Stomach issues (Going to ER) Social History Tobacco UseTypesPacks/DayYears UsedDateSmoking Tobacco: NeverAlcohol UseStandard Drinks/WeekCommentsNot Currently0 (1 standard drink = [...] in other ways by your partner or ex-partner?No 11/12/2024Within the last year, have you been kicked, hit, slapped, or otherwise physically hurt by your partner or ex-partner?No11/12/2024Within the last year, have you been raped or forced to have any kind of sexual activity by your part ner or ex-partner?No11/12/2024Social Connection and Isolation PanelAnswerDate RecordedIn a typical week, how many times do you talk on the phone with family, friends, or neighbors?More than three times a week11/12/2024How often do you get together with friends or relatives?Three times a week11/12/2024How often do you attend mosque or yarsani services?More than 4 times per year11/12/2024Do you belong to any clubs or organizations such as mosque groups, unions, fraSports MatchMaker or athletic groups, or school groups?No11/12/2024ttends Club or Organization MeetingsNot on file11/12/2024re you , , , , never , or living with a partner?Never hibhfzy7711/12/2024UDIT-CAnswerDate RecordedQ1: How often do you have a drink containing alcohol?Never11/12/2024Q2: How many drinks containing alcohol do you have on a typical day when you are drinking?Patient does not drink11/12/2024Q3: How often do you have six or more drinks on one occasion?Never11/12/2024Overall Financial Resource Strain (CARDIA) AnswerDate RecordedHow hard is it for you to pay for the very basics like food, housing, medical care, and heating?Not hard at all11/12/2024PHQ-2AnswerDate RecordedPatient Health Questionnaire-2 Wrklf822[facility] [place] [facility] Occup[facility] - Occupational Stress QuestionnaireAnswerDate RecordedDo you feel stress - tense, restless, nervous, or anxious, or unable to sleep at night because yourmind is troubled all the time - these days?Very much11/12/2024 Exercise Vital SignAnswerDate RecordedOn average, how many days per week do you engage in moderate to strenuous exercise (like a brisk walk)?1 day11/12/2024On average, how many minutes do you engage in exercise at this level?10 min 11/12/2024Hunger Vital SignAnswerDate RecordedWithin the past 12 months, you worried that your food would run out before you got the money to buymore.Never true11/12/2024Within the past 12 months, the food you bought just didn't last and you didn't have money to get more.Never true11/12/2024PRAPARE - TransportationAnswerDate RecordedIn the past 12 months, has lack of transportation kept you from medical appointments or from getting medications?No 11/12/2024In the past 12 months, has lack of transportation kept you from meetings, work, or from getting things needed for daily living?No11/12/2024 Housing Stability Vital SignAnswerDate RecordedIn the last 12 months, was there a time when you were not able to pay the mortgage or rent on time?No11/12/2024 Number of Times Moved in the Last YearNot on file11/12/2024t any time in the past 12 months, were you homeless or living in a skilled nursing (including now)?No 11/12/2024CommentsUnknownSex and Gender InformationValueDate RecordedSex Assigned at BirthNot on fileLegal AlmLwznbo79/15/2023 6:39 PM EDTGender Identity Onedst2006/01/2022 6:39 PM EDTSexual OrientationNot on filedocumented as of this encounter Miscellaneous Notes * Telephone Encounter - Gloria Cortez LPN - 12/31/2024 11:28 AM EDT LM for pt to return call to discuss concerns and ER visit. * Telephone Encounter - Chelsea Hendricks MA - 12/31/2024 10:20 AM EDT Pt called, she is currently on her way to the ER. She states she is going because of her stomach. She would like a call call back to discuss her concerns. documented in this encounter Plan of Treatment DateTypeDepartmentCare Team (Latest Contact Info)Zhrmenfsmyd47/10/2026 2:00 PM ESTOffice Visit [facility] [address] [place] [address] Cole Phillip MD [address] [facility] [address] [place] [address] 04/30/2025 2:15 PM ESTOffice Visit [facility] [address] [place] [address] Reji De Luna, DO [address] [place] [place] [address] documented as of this encounter Visit Diagnoses Not on filedocumented in this encounter Care Teams Team MemberRelationshipSpecialtyStart DateEnd Date Kapil Patel DO [address] [facility] [address] [place] [address] PCP - GeneralFamily Medicine10/08/24 Kapil Patel DO [address] [facility] [address] [place] [address] PCP - [facility]10/24/24documented as of this encounter
--- OUTSIDE RECORDS SUMMARY | 2025-01-13 20:39 | XMS_ITS | Clinical Summary ---
Author Organization [facility] Address [address] [place] [address] Care Team Providers Care Government Affairs Fellow Name Role Phone Kami Olvera MD Primary Care Provider [phone] David House MD Unavailable [phone] Rubens Singh MD Unavailable [phone] Kapil Patel DO Unavailable [phone] Allergies Active AllergyReactionsCriticalityNoted DateCommentsBenadryl Allergy DecongestantOther: See Yhzcfwmg29/28/2015 Pt passes out Calcium CarbonateRash,Nekbqby1411/28/2021heOther: See Xcwvjzav36/22/2014 fever and passed out per patient DiphenhydramineAnaphylaxis,Other: See Comments,Rash,Caheonr4811/28/2021IodineRash 05/02/2023rasterone (Dhea)Rash,Gbuitvw9711/28/2021 Medications * This document contains information received from the source organization and may not represent a complete record from that organization. MedicationSigDispense QuantityRefillsLast FilledStart DateEnd DateStatus bupropion HCl (WELLBUTRIN ORAL) Take 100 mg by mouth twice daily. Active venlafaxine (EFFEXOR) 75 mg tablet Take 1 tablet via PEG/JET tube three times daily with meals. 90 tablet 06/03/2021 6:22 PM EDT06/03/2021ctive ondansetron (ZOFRAN) 4 mg tablet 4 mg every 6 hours as needed. Active prochlorperazine (COMPAZINE) 10 mg tablet Take 1 tablet by mouth every 6 hours as needed. 60 tablet 11:57 AM EDT08/23/2021ctive Additional Information Patient not taking.Reported on 06/23/2023 naloxone 4 mg/actuation nasal spray (NARCAN) Use 1 spray in one nostril as needed for overdose. May repeat every 2 to 3 min in alternating nostrils until medical assistance is available 2 Each 08/23/2021 11:57 AM EDT08/23/2021ctive galcanezumab-gnlm (EMGALITY SYRINGE) 120 mg/mL syringe 1 ml Subcutaneous monthly for 90 days3Active morphine IR 15 mg tablet TAKE 1 TO 2 TABLETS BY MOUTH THREE TIMES DAILY ILAEVW585Active iv contrast (will be provided with radiology test) Indications:History of Hodgkin's disease,Arthralgia, unspecified joint, Unexplained night sweatsCT Chest ABD/PEL-Inject, intravenously, once for 1 dose.No IV access, insert saline lock prior to the beginning of sedation, infusion, injection of imaging exam. Discontinue saline lock post exam. IfPt. has a central line or IVAD, may access for administration according to line specific nursing protocol. Once exam is complete flush line and de-access according to line specific nursing protocol in the CT contrast administration guidelines link. 1 Each 5Active enteric contrast (will be provided with radiology test) Indications:History of Hodgkin's disease,Arthralgia, unspecified joint, Unexplained night sweatsFor CT CHESTABD/PEL W IVCON Routine order Administer, As Directed One Time Only, via Oral, Rectal, both Oral and Rectal, Enteric Tube, Stoma or Indwelling Catheter, Enteric Contrast as designated perenteric contrast guidelines 1 Each 5Active Active Problems Patient Care Coordination No te [...] scheduled Sunday 09/10 for 10am Posterior glottic gjxwekez13/08/2022 Assessment & Plan (05/27/2021 9:42 AM EST): Assessment: admitted pre op PLAN: OR completed, monitor patient Acute respiratory failure with tcpaxyg2205/17/2021reop esebkapylxs40/30/2021 Assessment & Plan (02/16/2021 11:00 AM EST): Scheduled for surgery 02/18 at Tjqoebzmaseyk40/30/2021 Assessment & Plan (02/16/2021 11:01 AM EST): Complex GI history with PEG placement in December and unable to substantially increase TF. Planning conversion to J tube on 02/18 Psychogenic nonepileptic alaagcc1902/16/2021 Assessment & Plan (02/16/2021 11:07 AM EST): H/O psychogenic nonepileptic seizures, last occurring in 2018 per patient. States that her episode of jaw clenching following surgery in October was different than her previous seizure-like activity. She had normal EEG in October. Cymrjfdqe41/30/2021 Assessment & Plan (02/16/2021 11:05 AM EST): Recent sinus infection, completed antibiotics two days ago and steroids three days ago. Will message Dr. Pineda to confirm that he is agreeable to proceed. History of recent steroid use02/16/2021 Assessment & Plan (02/16/2021 11:05 AM EST): Received medrol kaylin with sinusitis, last dose approximately 02/13/21 History of anesthesia thsyrizqwlsdg41/30/2021 Assessment & Plan (02/16/2021 11:03 AM EST): Complex history of anesthesia complications detailed below. Most recently with serotonin syndrome in December but also had episode of jaw clenching following surgery in October, both requiring admission and monitoring. Additionally has history of being difficult to sedate, PONV and occasional poor IVaccess. Will notify [facility] of patient history. Peawqqsbwo28/30/2021 Overview (09/07/2021): - C/W Wellbutrin and effexor Assessment & Plan (02/16/2021 11:07 AM EST): Typically on welbutrin and effexor but states that she was instructed to hold her effexor one week prior to surgery per her neurologist. Malnutrition of moderate uhxoxn5612/23/2020 Overview (09/07/2021): Improved PO intake, off tube feed for weeks Weight stable - Consult to nutrition for intake assessment - Regular diet - DC PEG Serotonin dbifzxum62/05/2021 Assessment & Plan (02/16/2021 11:04 AM EST): See anesthesia complications above. Occurred in December 2020 following PEG placement. Patient states she was instructed by her neurologist to hold effexor one week prior to surgery to avoid recurrentepisode. Djjknuuo89/10/2021 Assessment & Plan (02/16/2021 11:06 AM EST): H/O migraines managed with emgality monthly. Does present with hemiplegic symptoms. Assessment & Plan (10/27/2020 4:00 PM EDT): Assessment: Stablie on Emgality once a month. Has Maxalt for use PRN Lrphtz7810/27/2020Mild protein-calorie vbjdtueddnpd49/26/2021 Assessment & Plan (06/03/2021 12:45 PM EDT): Assessment: On cyclic TF pre op PLAN: peg leaking, consult Gen surg, TF as ordered PEG/J not replaced and peg will be replaced outpatient, sutured a bumper, balloon deflated to 5 cc no leak, trial oral intake failed Injury to bile duct and gallbladder, initial bbpzepsxq43/07/2017PFO (patent foramen ovale)02/03/20159821Gdteecvedus26/06/2015 Overview (09/07/2021): On metop XL OP - Resume metop Conversion disorder with abnormal konccucz61/04/2015Migraine with aura, with intractable migraine, so stated, without mention of status ppientcttzv79/22/2014 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 Resolved Problems ProblemNoted DateDiagnosed DateResolved DateFebrile lnfdjyyxuea62/20/2022 09/08/2021 Overview (09/07/2021): Afebrile since admission Source likely PEG tube site Abd culture GPC + rare yeast - BCx in process - Doxy for 10 day course - PEG tube removal tomorrow Altered mental dcpyji57/8294Lflkfkah15/10/202111/UQ pain 8039Wtyklsvqbzlpmkxehxf23/05/202002/11/2020Abdominal pain Nonspecific abnormal results of endocrine function study 1Postural kacexsdkm52 Encounters DateTypeDepartmentCare OzqtGtgojqppmfu27/29/2025Telephone Hematology/Oncology [address] [place] [address] [place] [address] Randal Hu MD Referralfrom Last 3 Months Immunizations ImmunizationAdministration DatesNext DueHaemophilus influenzae b (Hib) vaccine, unspecified /22/1996,1994diphtheria tetanus pertussis (DTP) qnrviyk8203/02/1994diphtheria tetanus pertussis (DTaP) vaccine, unspecified itdaedvcpiu65/05/2000,10/09/1995diphtheria tetanus pertussis-Haemophilus influenzae b (DTP-Hib) vaccine (TETRAMUNE)1994,1994hepatitis B (HepB) vaccine, 3-dose series, age 0 yr - 19 yr (ENGERIX B-PEDS, RECOMBIVAX HB-PEDS)1994,1994,1994human papillomavirus (HPV) vaccine, unspecified bionlskcvmq87/01/2012human papillomavirus (HPV4) vaccine, quadrivalent (GARDASIL)03/10/2011,12/06/2010,10/15/2008measles mumps rubella (MMR) vaccine (M-M-R II, PRIORIX)06/23/1999,01/16/1995meningococcal (MenACWY-D) vaccine, quadrivalent (MENACTRA)12/06/2010,10/15/2008poliovirus (IPV) vaccine, inactivated (IPOL)06/23/1999poliovirus (OPV) vaccine, trivalent, live, oral (ORIMUNE)1994,1994,1994tetanus diphtheria pertussis (Tdap) vaccine, age 7+ yr (ADACEL, BOOSTRIX)10/15/2008varicella (MARCELA) vaccine (VARIVAX) 12/06/2010,10/01/2001 Family History Medical HistoryRelationCommentsHeartBrother 3coarctation of the aortacerebral palsyBrother 3Cleft palateBrother 4Pierre Ifeanyi SequenceBrother 4Hypertension FatherCancerMaternal Grandfatherbrain tumor - 64 years of ageDiabetesMaternal GrandfatherGlaucomaMaternal GrandfatherHypertensionMaternal Grandfathermigraine Maternal GrandfatherHypertensionMaternal GrandmotherIschemic Heart Disease Maternal GrandmotherHeartMotherbradycardia, low blood pressure. Received pacemakerprogesterone deficiencyMothermultiple miscarriagesDiabetesOthergreat uncle - type IHypertensionPaternal GrandfatherIschemic Heart DiseasePaternal GrandfatherRelationStatusCommentsBrother 1AliveBrother 2AliveBrother 3Brother 4 FatherAliveMaternal GrandfatherMaternal GrandmotherMotherAliveOtherPaternal GrandfatherSisterAlive Social History Tobacco UseTypesPacks/DayYears UsedDateSmoking Tobacco: NeverPassive Smoke Exposure: PastSmokeless Tobacco: Never Tobacco Cessation:Counseling Given: Not Answered Alcohol UseStandard Drinks/WeekCommentsNot Currently0 (1 standard drink = 0.6 oz pure alcohol)rarelyOverall Financial Resource Strain (CARDIA)AnswerDate Recorded How hard is it for you to pay for the very basics like food, housing, medical care, and heating?Not hard at all09/08/2021HQ-2AnswerDate RecordedPHQ-2 score0 05/09/2023Hunger Vital SignAnswerDate RecordedWithin the past 12 months, you worried that your food would run out before you got the money to buymore.Never true09/08/2021Within the past 12 months, the food you bought just didn't last and you didn't have money to get more.Never true09/08/2021RAPARE - TransportationAnswerDate RecordedIn the past 12 months, has lack of transportation kept you from medical appointments or from getting medications?No 09/08/2021In the past 12 months, has lack of transportation kept you from meetings, work, or from getting things needed for daily living?No09/08/2021 Housing Stability Vital SignAnswerDate RecordedIn the last 12 months, was there a time when you were not able to pay the mortgage or rent on time?No09/08/2021In the last 12 months, how many places have you lived?In the last 12 months, was there a time when you did not have a steady place to sleep or slept in ashelter (including now)?No09/08/2021rea Deprivation IndexAnswerDate RecordedNational Score (1-100), lower number is lower mjna428310/14/2022State Score (1-10), lower number is lower kusg5983Data from: https://www.neighborhoodatlas.medicine.[facility].edu/. Last address used for [address] [place] [address]10/14/2022CommentsNoSex and Gender InformationValue Date RecordedSex Assigned at UoxpmJfxeel19/29/2021 12:47 AM EDTLegal SexFemale 02/19/2012 8:13 AM ESTGender VkufovtnKgyuvn83/29/2021 12:47 AM EDTSexual LiwayarjcnzObmotjoi91/29/2021 12:47 AM EDT Last Filed Vital Signs Vital SignReadingTime TakenCommentsBlood Pngheoub635/8905/10/2024 10:10 AM EST Rapod08598/21/2025 10:10 AM KKXHiabumqoaqa43.6 ??C (97.8 ??F)05/10/2024 10:10 AM ESTRespiratory Qwou557805/10/2024 10:10 AM ESTOxygen Uywommtgmn32%05/10/2024 10:10 AM ESTInhaled Oxygen Concentration--Jqtmde22.7 kg (147 lb 0.8 oz)05/10/2024 10:10 AM OLBLdutdq937.2 cm (5' 7 )06/23/2023 9:17 AM EDTBody Mass Index23.03 06/23/2023 9:17 AM EDT Plan of Treatment Health MaintenanceDue DateLast DoneCommentsAnxiety Powclbhgb24/15/2012HIV Kgtpbsvwd79/15/2012Hepatitis C Stnezzydo57/15/2012Cervical Cancer Screening 2015DTaP,Tdap,Td Vaccine (7 - Td or Tdap), 06/23/1999, 10/09/1995, Additional history existsCovid-19 Vaccine ( season) 2024Influenza Vaccine (#1)2024Hepatitis B VaccineCompleted 1994, 1994, 1994HPV PxcyjicXpyfmrxsy68/01/2012, 03/10/2011, 12/06/2010, Additional history exists Medical Devices ExplantedTypeAreaManufacturerDevice IdentifierShelf Expiration DateModel / Serial / LotStent Wallflex 10mm 8.5fr Permalume Covering 40mm Biliary Rapid Exchange - [id number] [facility]ed:Q[facility] Bile DuctPORT CARBON SCIENTIFIC [id number]/09/[id number] / / [id number]:D: [id number] Model: WallFlex Biliary RX Uncovered Stent System Generic: stent Model Number: [id number] (10) Models Summary: MR Conditional - See [...] and/or whole body transmit coils The covered Wa llFlex??? Biliary RX Stent should not migrate in this Magnetic Resonance Imaging (MRI) environment,as magnetic force and torque in the non-clinical tests was less than the values exerted by the earth's gravity. MR imaging within these conditions may be performed immediately following the implantation of the stent. This stent has not been evaluated to determine if it is MR Conditional beyond these conditions. No tests have been performed on possible nerve or other tissue stimulation possible arnol activated by strong gradient magnetic jha and resulting induced voltages. For All WF (except WF LE): 3.0 Patricia Temperature Information: Non-clinical testing of RF-induced heating was performed at 123 MHz in a 3.0 Patricia Magnetom Trio??, [employer] MR system, software version Numaris/4, ProfitPoint?? MR A30. The stents were in a location and orientation in the phantom that produced the worst case Radio Frequency (RF) heating. RF power was applied for 15 minutes with the conductivity of the phantom material 0.49 S/m. The phantom average JULIAN calculated using calorimetry was 4.2 W/kg. The maximum in-vitro temperature rise was 2.6 ??C when the local JULIAN was scaled to 2 W/kg for a stent length of 80 mm. Other stent lengths exhibited a lower temperature rise. In-vivo temperature rises were determined based on these non- clinical tests and computer simulation of the patient exposure to the electromagnetic jha in MRI. For landmarks at the chest the calculated temperature rise was 4.0 ??C with an uncertainty upper bound temperature of 5.5 ??C for a whole body average JULIAN valueof 2.0 W/kg and a continuous scan time [...] at 64 MHz in a 1.5 Patricia Intera?? Wavestream, software version Release 12.6.1.3 2010-02-18 whole body coil MR scanner. Thestents were in a location and orientation in the phantom that produced the worst case RF heating. RF power was applied for 15 minutes with the conductivity of the phantom material about 0.49 S/m. Thephantom average JULIAN calculated using calorimetry was 3.9 W/kg. The maximum in-vitro temperature rise was 2.8 ??C when the local JULIAN was scaled to 2 W/kg for a stent length of 144 mm. Other stent lengths exhibited a lower temperature rise. In-vivo temperature rises were determined based on these non-clinical tests and computer simulation of the patient exposure to the electromagnetic jha in MRI. For landmarks at the chest the calculated temperature rise was 2.4 ??C with an uncertainty upper bridger und temperature of 3.3 ??C for a whole body average JULIAN value [...] stent. 961Click here for reference website07/08/2013 Mfr: Synappio. Parent Co: Fax: Rob Entake 20fr Peg Pull Method Fenestrated Drape Standard - [id number] Implanted:Qty: 1 on 12/22/2020 [facility]: AbdomenCONMED ENDOSCOPIC TECH04/19/[id number] / / [id number]:pegSet Peg 24 24fr 5.5mm .035in Silicone 150cm Gastrostomy Pull Method - [id number] Implanted:Qty: 1 on 07/08/2021 [facility] CARETubeN/A: AbdomenCOOK INC [id number]/10/[id number] / / [id number]:silicone Insurance Advance Directives TypeDate RecordedPatient RepresentativeExplanationAdvance Directive(s)08/23/2021 Advance Directives * Full Code (Latest Code Status on File) Date ActivatedDate InactivatedComments05/19/2021 12:17 PM05/23/2021 10:52 PMQuestion AnswerCommentsFull Code Order Discussed With:* Surrogate Decision Maker Surrogate Decision Maker Name:* dakota stacy-mother Care Teams Team MemberRelationshipSpecialtyStart DateEnd Date Kami Olvera MD [address] [place] [address] PCP - GeneralFamily Bkjmowbk27/15/17 David House MD [address] [place] [address] PhysicianHematology/Oncology07/27/21 Rubens Singh MD [address] [place] [address] PhysicianHematology/Oncology10/08/21 Kapil Patel DO [address] [address] ReferringFamily Qwjaqmal12/14/25 [facility] Palliative Medicine Provider08/30/21
--- OUTSIDE RECORDS SUMMARY | 2025-01-13 20:39 | XMS_ITS | Encounter Summary ---
Author Organization [facility] Address [address] [place] [address] Care Team Providers Care Mineral Surveying Technician Name Role Phone Kapil Patel DO Primary Care Provider [phone] Kapil Patel DO Unavailable [phone] Encounter Details DateTypeDepartmentCare Team (Latest Contact Info)Jbffmdlbugz40/09/2025External Result Encounter [facility] External Department Unsolicited Marcelle Ryan MD [address] [place] [address] Social History Tobacco UseTypesPacks/DayYears UsedDateSmoking Tobacco: NeverAlcohol [...] times a week11/12/2024How often do you attend confucianist or catholic services?More than 4 times per year11/12/2024Do you belong to any clubs or organizations such as confucianist groups, unions, fraternal or athletic groups, or school groups?No11/12/2024ttends Club or Organization MeetingsNot on file11/12/2024re you , , , , never , or living with a partner?Never jsomarl4511/12/2024UDIT-CAnswerDate RecordedQ1: How often do you have a [...] heating?Not hard at all11/12/2024PHQ-2AnswerDate RecordedPatient Health Questionnaire-2 [id number] [place] of [facility] - Occupational Stress QuestionnaireAnswerDate [...] InformationValueDate RecordedSex Assigned at BirthNot on fileLegal PawIedqor73/15/2023 6:39 PM EDTGender Identity Wsvwoy5806/01/2022 6:39 PM EDTSexual OrientationNot on filedocumented as of this encounter Functional Status * Over the past 2 weeks, how often have you been bothered by any of the following problems?QuestionAnswerDate of AssessmentAuthorLittle interest or pleasure in doing thingsNot at all12/27/2024 9:27 AM Gloria Whittaker LPNFeeling down, depressed, or hopelessNot at all12/27/2024 9:27 AM EDT Gloria Cortez LPNPatient Health Questionnaire-2 [id number] 9:27 AM Gloria Whittaker LPN documented as of this encounter Plan of Treatment DateTypeDepartmentCare Team (Latest Contact Info)Wvtashpfuwb57/10/2026 2:00 PM ESTOffice Visit [facility] [address] [place] [address] Cole Phillip MD [address] [place], [place] [id number] 04/30/2025 2:15 PM ESTOffice Visit [facility] [address] [place] [id number] Reji De Luna, DO [address] [place] [address] documented as of this encounter Procedures Procedure NamePriorityDate/TimeAssociated DiagnosisCommentsCOPPERRoutine 12/26/2024 9:43 AM EDT documented in this encounter Results * Copper, serum (12/26/2024 9:43 AM EDT)ComponentValueRef RangeTest Method Analysis TimePerformed AtPathologist [id number] - 158 ug/dL2025 7:36 AM EDTFIRELANDSComment: This test was developed and its performance characteristics determined by [facility]. It has not been cleared or approved by the Food and Drug Administration. ?Detection Limit = 5 Performed at: ?? - [facility] ??[id number] Copying Machine Mechanic: Carlos Guerra MD, Phone: ??[phone] Specimen (Source)Anatomical Location / LateralityCollection Method / Volume Collection TimeReceived TimeOtherTopography unknown / Acmfqud5612/26/2024 9:43 AM EDT1 9:43 AM EDT Narrative Authorizing ProviderResult TypeResult StatusMarcelle Ryan MDLAB BLOOD ORDERABLES Final ResultPerforming OrganizationAddressCity/State/ZIP CodePhone Number [facility] [address] [place] [address], documented in this encounter Visit Diagnoses Not on filedocumented in this encounter Care Teams Team MemberRelationshipSpecialtyStart DateEnd Date Kapil Patel DO [address] [place] [address] PCP - GeneralFamily Medicine10/08/24 Kapil Patel DO [address] [place] [address] JEISON - Amita [facility]10/24/24documented as of this encounter
--- OUTSIDE RECORDS SUMMARY | 2025-01-13 20:39 | XMS_ITS ---
Author Organization [facility] Address [address] [place] [address] Care Team Providers Care Pool Nurse Name Role Phone Kapil Patel DO Primary Care Provider [phone] Kapil Patel DO Unavailable [phone] Emergency Department Transitional Care Management (TCM) Status:Closed (Closed) Start date:12/31/2024 Enrollment date:01/03/2025 Enrollment reason:Identified using hospital discharge data End date:01/03/2025 Close reason:Unable to reach patient Overview Discharged from [facility] ER on 12/31. Please contact within 2 days of discharge for ER JAME and schedule a follow-up appointment if needed. Continued Care and Services Coordination
--- OUTSIDE RECORDS SUMMARY | 2025-01-13 20:39 | XMS_ITS | Patient Health Record ---
Author Organization [facility] Address [address] [place] [address] Care Team Providers Care Chest Painting Leader Name Role Phone Taniya Rodriguez OD Primary Care Provider Asia faust Reason For Referral No Information Plan Of Treatment No Information Insurance Providers Payer Name Payer Address Payer Phone Subscriber Number Group Number Insured Name Patient Relationship to Insured Coverage Start Date Coverage End Date SELF PAY ON PATIENT DEMOGRAPHICS Steven Stacyelf - patient is the vgbpikc6908/30/2011
--- OUTSIDE RECORDS SUMMARY | 2025-01-13 20:39 | XMS_ITS | Encounter Summary ---
Author Organization [facility] Address [address] [place] [address] Care Team Providers Care Supervisor Cooler Service Name Role Phone Kapil Patel DO Primary Care Provider [phone] Kapil Patel DO Unavailable [phone] Encounter Details DateTypeDepartmentCare Team (Latest Contact Info)Eiwqfaqwpki42/17/2025Patient Outreach [facility] [address] [place] [id number] Monday, FELISHA Mullen [address] [facility] [address] [place] [address] Social History Tobacco UseTypesPacks/DayYears UsedDateSmoking Tobacco: NeverAlcohol [...] times a week11/12/2024How often do you attend mandaen or restorationism services?More than 4 times per year11/12/2024Do you belong to any clubs or organizations such as mandaen groups, unions, fraQuidsi or athletic groups, or school groups?No11/12/2024ttends Club or Organization MeetingsNot on file11/12/2024re you , , , , never , or living with a partner?Never drysvzf0811/12/2024UDIT-CAnswerDate RecordedQ1: How often do you have a [...] heating?Not hard at all11/12/2024PHQ-2AnswerDate RecordedPatient Health Questionnaire-2 [id number] view hospital [place] of Occupational Health - Occupational Stress QuestionnaireAnswerDate [...] or living in a nursing home (including now)?No 11/12/2024CommentsUnknownSex and Gender InformationValueDate RecordedSex Assigned at BirthNot on fileLegal ZkuIitcso12/15/2023 6:39 PM EDTGender Identity Fdcmxl6206/01/2022 6:39 PM EDTSexual OrientationNot on filedocumented as of this encounter Progress Notes * Paz Garcia LPN - 01/03/2025 8:49 AM EDT Images from the original note were not included. Flowsheet Row Patient Outreach from 01/03/20[facility] with Paz MondayFELISHA Hospital Information ED, Hospital or Snf Facility Discharge? ED Patient has been contacted within 2 days of being seen in the ED No Have two attempts been made, within 2 days of being seen in the ED, to contact the patient? Yes Diagnosis abdominal pain, diarrhea Discharge Date 12/31/24 Discharged To: Home Setting Discharge [facility] Engagement Call Start Time 08 Admission Date 12/31/24 Medications Discharge medications reviewed and reconciled from hospital? Not applicable [unable to reach pt after 2 attempts.] Appointments Self Management Patient Teaching Wrap Up Wrap Up Additional Comments Pt went to ER for abdominal pain and associated nausea,vomiting, and diarrhea for about a week now. She denies any blood being in her stool. 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
--- OUTSIDE RECORDS SUMMARY | 2025-01-13 20:39 | XMS_ITS | Clinical Summary ---
Author Organization [facility] Address [address] [place] [address] Care Team Providers Care Hand Zipper Trimmer Name Role Phone Unavailable Primary Care Provider Unavailabl e Source Comments The following information is NOT included in Care Everywhere downloads:Psychiatric notes, ECG results, Cardiac Rehab notes, Pulmonary Function notes, data from SmartForms (includes but not limited toPregnancy data,audiograms, eye exams, pre-surgical evaluation notes, well-child exam data).[facility] Allergies Active AllergyReactionsCriticalityNoted EkcwBekqmfeyNsnvohlgfbeiray22/23/2025 Medications MedicationSigDispense QuantityRefillsLast FilledStart DateEnd DateStatus HYDROmorphone (DILAUDID) 2 MG tablet Take 2 mg by mouth as needed for Pain.Active Venlafaxine HCl (EFFEXOR XR ORAL) Take 225 mg by mouth every morning.Active buPROPion (WELLBUTRIN) 100 MG tablet Take 100 mg by mouth 2 times daily.Active zolpidem (AMBIEN) 10 MG tablet Take 10 mg by mouth at bedtime as needed for Sleep.Active linaclotide (Linzess) 72 MCG CAPS capsule Take 72 mcg by mouth daily.Active ondansetron (ZOFRAN-ODT) 4 MG disintegrating tablet Take 1 Tablet by mouth every 8 hours as needed for Nausea. 12 Tablet 5Active HYDROmorphone (DILAUDID) 2 MG tablet Indications:Chronic abdominal painTake 1 Tablet by mouth every 4 hours as needed for up to 3 days. 15 Tablet 509/Expired Active Problems ProblemNoted DateDiagnosed Date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 status migrainosus, not mijahfjffky14/27/2025Epigastric pain12/11/20244681Lizpbhvmdlxyqmdwii49/22/2025 Nausea and vomiting, unspecified vomiting type12/09/2024hronic abdominal pain 12/09/2024 Encounters DateTypeDepartmentCare TxvuYgjbcnqcpon82/02/2025 11:[address] Internal Medicine [address] [place] [address] Marjorie Bustillos MD Hospital discharge follow-up (Primary Dx); Abdominal pain, unspecified abdominal kvoziwwj39/29/2025Results Follow-Up [facility] [address] [place] [address] Setlla Weinstein DO SURGICAL GI ANATOMIC MZCFYTUCC07/26/2025 6:49 PM EDT - 12/13/2024 11:59 PM EDT Hospital Encounter [facility] Radiology CT [address] [place] [address] Tigre Guevara MD Discharge Disposition: HOV Dgykqhvqt18/26/0996Dhfaoh59/24/2025 1:21 PM EDT Anesthesia Event [facility] [address] [place] [address] Tramaine Sheehan MD Midgley, Maureen, [facility] 12/11/2024 1:00 PM EDT - 12/11/2024 2:00 PM EDTSurgery [facility] [address] [place] [address] Stella Weinstein DO ESOPHAGOGASTRODUODENOSCOPY AND OZLSDQNPROP67/22/2025 7:36 AM EDT - 12/14/2024 6:41 PM EDTHospital Encounter [facility] [address] [place] [address] John Ramirez MD Kapur, Rahi, MD Skinner, Mitchell, MD Collins, Thomas E., MD Schmidt, Kristen, MD Miller, Brian L., MD Danawala, Mehul, MD Kim, Lisa, MD Dx: Chronic diarrhea (Primary Dx) Discharge Disposition: Discharge to Home12/09/20245650Zluogk98/19/2025Telephone [facility] Medicine [address] [place] [address] Maci Roberson MD from Last 3 Months Immunizations ImmunizationAdministration DatesNext DueDTP-Hib (CVX=22)1994,1994 DTaP, unspecified formulation (XLW=569)06/23/1999,10/09/1995HPV, quadrivalent (Gardasil 4) (CVX=62)03/10/2011,12/06/2010,10/15/2008Hep B (peds/adol, 3-dose) (CVX=08)1994,1994,1994Hib, unspecified formulation (CVX=17) 10/09/1995,1994MMR, Obruipx-Aogkf-Jvfhgok (CVX=03)06/23/1999,01/16/1995 Meningococcal conjugate (MCV4,Men-ACWY), Menactra (MCV4P) (FZV=866)12/06/2010, 10/15/2008Polio, unspecified formulation (CVX=89)06/23/1999Tdap (HDQ=404) 10/15/2008Varicella (Chickenpox) (CVX=21)12/06/2010,10/01/2001 Family History Medical HistoryRelationNameCommentsCerebral PalsyBrother 1Brain CancerMaternal GrandfatherAtrial FibrillationMotherStrokeMotherRelationNameStatusComments Brother 1AliveBrother 2AliveFatherAliveMaternal GrandfatherDeceasedMotherAlive SisterAlive Social History Tobacco UseTypesPacks/DayYears UsedDateSmoking Tobacco: Never [facility]essedW[facility] UtilitiesAnswerDate RecordedIn the past 12 months has the [employer], gas, oil, or water [employer] threatened to shut off services in your home?No12/19/2024 Humiliation, Afraid, Rape, and Kick questionnaireAnswerDate RecordedWithin the last year, have you been afraid of your partner or ex-partner?No12/19/2024Within the last year, have you been humiliated or emotionally abused in other ways by your partner or ex-partner?No12/19/2024Within the last year, have you been kicked, hit, slapped, or otherwise physically hurt by your partner or ex-partner?No12/19/2024Within the last year, have you been raped or forced to have any kind of sexual activity by your partner or ex-partner?No12/19/2024 Social Connection and Isolation Panel [NHANES]AnswerDate RecordedIn a typical week, how many times do you talk on the phone with family, friends, or neighbors?More than three times a week12/19/2024How often do you get together with friends or relatives?More than three times a week12/19/2024How often do you attend tenriism or christianity services?More than 4 times per year12/19/2024Do you belong to any clubs or organizations such as tenriism groups, unions, fraternal or athletic groups, or school groups?Yes12/19/2024How often do you attend meetings of the clubs or organizations you belong to?More than 4 times per year 12/19/2024re you , , , , never , or living with a partner?Never qnsracy4412/19/2024Overall Financial Resource Strain (CARDIA)AnswerDate RecordedHow hard is it for you to pay for the very basics like food, housing, medical care, and heating?Not hard at all12/19/2024[facility] [place] [facility] - Occupational Stress QuestionnaireAnswerDate RecordedDo you feel stress - tense, restless, nervous, or anxious, or unable to sleep at night because yourmind is troubled all the time - these days?To some jzkhgs6512/19/2024Exercise Vital SignAnswerDate RecordedOn average, how many days per week do you engage in moderate to strenuous exercise (like a brisk walk)?3 days12/19/2024On average, how many minutes do you engage in exercise at this level?20 min12/19/2024Hunger Vital SignAnswerDate RecordedWithin the past 12 months, you worried that your food would run out before you got the money to buy more.Never true12/19/2024Within the past 12 months, the food you bought just didn't last and you didn't have money to get more.Never true12/19/2024PRAPARE - TransportationAnswerDate RecordedIn the past 12 months, has lack of transportation kept you from medical appointments or from getting medications?No 12/19/2024In the past 12 months, has lack of transportation kept you from meetings, work, or from getting things needed for daily living?No12/19/2024 Housing Stability Vital SignAnswerDate RecordedIn the last 12 months, was there a time when you were not able to pay the mortgage or rent on time?No12/19/2024 Number of Times Moved in the Last YearNot on file12/19/2024t any time in the past 12 months, were you homeless or living in a usp (including now)?No 12/19/2024Utilities - HistoricalAnswerDate RecordedIn the past 12 months has the [employer], gas, oil, or water [employer] threatened to shut off services in your home?No12/19/2024EducationAnswerDate RecordedWhat is the highest level of school you have completed or the highest degree you have received?Bachelor's degree (e.g., BA, AB, BS)12/19/2024CommentsNoSex and Gender InformationValue Date RecordedSex Assigned at BirthNot on fileLegal PkoTfqsvk61/18/2025 10:04 PM EDTGender IdentityNot on fileSexual OrientationNot on file Last Filed Vital Signs Vital SignReadingTime TakenCommentsBlood Omkhgyel706/9009 3:28 PM EDT Tmlls85617 3:28 PM APGAptnyqzlodh96 ??C (98.6 ??F)12/14/2024 3:28 PM EDT Respiratory Cvwz568812/14/2024 3:28 PM EDTOxygen Yabmktbbay58%12/14/2024 3:28 PM EDTInhaled Oxygen Concentration--Qhdzbl18.5 kg (140 lb)12/11/2024 11:43 AM EDT Umhkve103.2 cm (5' 7 )12/11/2024 11:43 AM EDTBody Mass Index21.9312/11/2024 11:43 AM EDT Plan of Treatment DateTypeDepartmentCare Team (Latest Contact Info)Pshuwlrdpey23/17/2025 2:20 PM ESTOffice Visit [facility] [address] [place] [address] Nathanael Trimble MD [address] [place] [address] Health MaintenanceDue DateLast DoneCommentsHepatitis C Npvnwoav98/15/2012 Hepatitis A (HAV) Vaccine (optional start 19+ years)2013Pap Smear 2015Tetanus (Td or Tdap) Veifvtd59COVID-19 Vaccine ( season)2024Influenza Vaccine (#1)2024Shingles (RZV) Vaccine (1 of 2)01/02/2044Hepatitis B (HBV) ViojoqlWgjgkvzsf41/01/1995, 1994, 1994Tdap CncmqysYalkncuwi87/29/2009HPV ImmgvcxXdwbvuowv96/22/2011, 12/06/2010, 10/15/2008HIV YkccMsjiqdrcv58/26/2025MammographyDiscontinued Pneumococcal Vaccine(s)Aged OutNo longer eligible based on patient's age to complete this topic Procedures Procedure NamePriorityDate/TimeAssociated DiagnosisCommentsCBC WITH DIFFERENTIAL STAT12/14/2024 12:10 AM EDT BASIC METABOLIC GEIOPENSO03/27/2025 12:10 AM EDT HC HEPATIC FUNCTION GNUZCQJUG01/27/2025 12:10 AM EDT DPPEIZONTZFFB95/27/2025 12:10 AM EDT XLTRZNVPEOAVER92/27/2025 12:10 AM EDT COMPLETE BLOOD COUNT W/VJIYQVRK97/ 12:[address] HEAD W/O YTCCUDOFYXIF30/26/2025 6:57 PM EDT CBC WITH HJPGJPYUWJNWBJPM31/26/2025 6:33 PM EDT HIV1 HIV2 AGAB WAAUQuclgwm64/26/2025 6:33 PM EDT Contact with and (suspected) exposure to other viral communicable diseases PARTIAL THROMBOPLASTIN KSNZEZSR91/26/2025 6:33 PM EDT PROTHROMBIN TIME AND RHPCYHR9812/13/2024 6:33 PM EDT RFFPKTY6112/13/2024 6:33 PM EDT LACTIC ZYLIBAFV87/26/2025 6:33 PM EDT HIGH SENSITIVITY TROPONIN ISTAT12/13/2024 6:33 PM EDT FHBOKFZYAQRWB88/26/2025 6:33 PM EDT BASIC METABOLIC XSQEKVRWT80/26/2025 6:33 PM EDT COMPLETE BLOOD COUNT W/CKNJVSWX85/26/2025 6:33 PM EDT GLUCOSE, FINGERSTICK-IN RYMGPSJiqzptq01/26/2025 6:25 PM EDT EKG 12 LEAD - BBRSTQYErkbaai85/26/2025 5:35 PM EDT CBC WITH LEELOYIVVDJZESFG70/26/2025 5:10 AM EDT COMPLETE BLOOD COUNT W/DSCZBLSH27/26/2025 5:10 AM EDT FBPWQFWFAIIOIF24/26/2025 5:10 AM EDT YFMCVNPZPZABH05/26/2025 5:10 AM EDT HC HEPATIC FUNCTION LLZAXINWW93/26/2025 5:10 AM EDT BASIC METABOLIC ANVTVMIOV12/26/2025 5:10 AM EDT CBC WITH PHDGSUGECHQUEMPP43/25/2025 4:35 AM EDT COMPLETE BLOOD COUNT W/QDQEUHYA42/25/2025 4:35 AM EDT FPFVHFZKPXOAXE45/25/2025 4:35 AM EDT KPNMWVHFZMQST02/25/2025 4:35 AM EDT HC HEPATIC FUNCTION QYTXYJISL13/25/2025 4:35 AM EDT BASIC METABOLIC CGQAACDAX63/25/2025 4:35 AM EDT COLONOSCOPY, FLEXIBLE, PROXIMAL TO SPLENIC FLEXURE; W/BIOPSY, SINGLE/MULTIPLE Tvkxehc5812/11/2024 2:00 PM EDT Chronic abdominal pain Nausea and vomiting, unspecified vomiting type Chronic diarrhea UPPER GI ENDOSCOPY; DX, W/WO SPECIMEN COLLECTION, BRUSHING/WASHING (SEP PROC) Yogqahm7012/11/2024 2:00 PM EDT Chronic abdominal pain Nausea and vomiting, unspecified vomiting type Chronic diarrhea SURGICAL GI ANATOMIC XWGYQSISOPhzlmuv03/24/2025 1:51 PM EDT Dyspepsia Chronic diarrhea Colonoscopy, Flexible, Proximal To Splenic Flexure; W/Biopsy, Single/Multiple Routine jxjdpbulk01/24/2025 1:16 PM EDT Dyspepsia Chronic diarrhea Upper GI Endoscopy; W/Biopsy, Single/MultipleRoutine hzvjbgibj38/24/2025 1:16 PM EDT Dyspepsia Chronic diarrhea Colonoscopy, Flexible, Proximal To Splenic Flexure; Dx, W/Wo Specimens/Colon Decomp (Sep Proc)Routine lzshevxwz76/24/2025 1:16 PM EDT Dyspepsia Chronic diarrhea Upper Gi Endoscopy; Dx, W/Wo Specimen Collection, Brushing/Washing (Sep Proc) Routine hnuwxxymh04/24/2025 1:16 PM EDT Dyspepsia Chronic diarrhea HC FAT STAIN YTAOIXVYM33/24/2025 1:47 AM EDT OSMOLALITY, HHLFGEBNQ77/24/2025 1:47 AM EDT POTASSIUM, INAPBGJYE31/24/2025 1:47 AM EDT CHLORIDE, LSTKAXTVN63/24/2025 1:47 AM EDT SODIUM, XRCPVGWGH91/24/2025 1:47 AM EDT PH, QKCBEFHWL78/24/2025 1:47 AM EDT XR ABDOMEN SUPINE + ERECT 2 XERWDPXKK75/23/2025 12:39 PM EDT HC HEPATIC FUNCTION EYWLFIQYU45/23/2025 3:23 AM EDT RZNFUUNCCMXTIE74/22/2025 8:15 AM EDT DGIDFHDOJDTDCR95/22/2025 8:15 AM EDT HCG UHYKABZYN73/22/2025 8:15 AM EDT CBC WITH DHYUAXYTZTGIZZQW85/22/2025 8:03 AM EDT ONVSLSKWSI49/22/2025 8:03 AM EDT HC HEPATIC FUNCTION PFNUUZECF79/22/2025 8:03 AM EDT BASIC METABOLIC NILGLVUJQ85/22/2025 8:03 AM EDT COMPLETE BLOOD COUNT W/VILNDGEH66/22/2025 8:03 AM EDT from Last 3 Months Results * CBC WITH DIFFERENTIAL (12/14/2024 12:10 AM EDT)ComponentValueRef RangeTest MethodAnalysis TimePerformed AtPathologist SignatureWBC7.94.5 - 11.5 K/uL 12/14/2024 12:29 AM [facility] PATHOLOGY LABORATORYRBC4.834.00 - 5.20 M/uL 12/14/2024 12:29 AM [facility] PATHOLOG[facility] UQELPKMKOBButecqyncc03.612.0 - 15.0 g/dL 12/14/2024 12:29 AM [facility] PATHOLOGY JFGPBUJHIMAeaxoyqtmo72.436.0 - 46.0 % 12/14/2024 12:29 AM [facility] PATHOLOG[facility] PSMMMYMDPDEMY5240 - 100 fL12/14/2024 12:29 AM [facility] PATHOLOG[facility] VDKUHPPEEENJG18.226.0 - 34.0 pg12/14/2024 12:29 AM [facility] PATHOLOG[facility] LKOXODWUOVSYNV09.532.0 - 35.9 g/dL12/14/2024 12:29 AM [facility] PATHOLOGY DGYMPTXWFFIsoiohmk354870 - 400 K/uL12/14/2024 12:29 AM [facility] PATHOLOGY LABORATORYRDW-CV13.011.5 - 14.5 %12/14/2024 12:29 AM [facility] PATHOLOGY LABORATORYMPV8.27.5 - 11.2 fL12/14/2024 12:29 AM [facility] PATHOLOGY CMXMEKYPWAIdtijhrmrrt71.331.0 - 76.0 %12/14/2024 12:29 AM [facility] PATHOLOGY LABORATORYNeutrophil #4.131.50 - 8.00 K/uL12/14/2024 12:29 AM [facility] PATHOLOG[facility] JDTYPIUVWFPfoymgoreip84.124.0 - 44.0 %12/14/2024 12:29 AM [facility] PATHOLOGY LABORATORYLymphocytes #2.691.00 - 4.80 K/uL12/14/2024 12:29 AM [facility] PATHOLOGY MMZUOPNDUACtfksdubx80.82.0 - 11.0 %12/14/2024 12:29 AM [facility] PATHOLOGY LABORATORYMonocyte #0.850.20 - 1.00 K/uL12/14/2024 12:29 AM [facility] PATHOLOGY LABORATORYEosinophil2.30.1 - 4.0 %12/14/2024 12:29 AM [facility] PATHOLOGY LABORATORYEosinophil #0.180.00 - 0.70 K/uL12/14/2024 12:29 AM [facility] PATHOLOGY LABORATORYBasophils0.5<=1.9 %12/14/2024 12:29 AM [facility] PATHOLOGY LABORATORYBasophil #0.040.00 - 0.20 K/uL12/14/2024 12:29 AM [facility] PATHOLOGY LABORATORYSpecimen (Source)Anatomical Location / LateralityCollection Method / VolumeCollection TimeReceived TimeBloodBLOOD SPECIMEN / UnknownVenipuncture / Fassgfl9012/14/2024 12:10 AM EDT12/14/2024 12:23 AM EDT Narrative Authorizing ProviderResult TypeResult StatusAndnichol Truong MDSAMANTHA LAB ORDER ONLY Final ResultPerforming OrganizationAddressCity/State/ZIP CodePhone Number [facility] [address] [place] [phone] * (ABNORMAL) HEPATIC FUNCTION PANEL (12/14/2024 12:10 AM EDT)ComponentValueRef RangeTest MethodAnalysis TimePerformed AtPathologist SignatureAlbumin4.43.5 - 5.7 g/dL12/14/2024 12:49 AM [facility] PATHOLOGY LABORATORYBilirubin, Direct0.06 0.03 - 0.18 mg/dL12/14/2024 12:49 AM [facility] PATHOLOGY LABORATORYBilirubin, Total0.30.3 - 1.0 mg/dL12/14/2024 12:49 AM [facility] PATHOLOGY LABORATORYComment: Note updated reference range.Alkaline Llebomanvbx6913 - 104 IU/L12/14/2024 12:49 AM [facility] PATHOLOGY LABORATORYALT (SGPT)6(L)7 - 52 IU/L12/14/2024 12:49 AM [facility] PATHOLOGY LABORATORYAST (SGOT)9(L)13 - 39 IU/L12/14/2024 12:49 AM [facility] PATHOLOGY LABORATORYProtein, Total6.66.1 - 7.9 g/dL12/14/2024 12:49 AM [facility] PATHOLOGY LABORATORYComment:Note updated reference range.Specimen (Source)Anatomical Location / LateralityCollection Method / VolumeCollection TimeReceived TimeBloodBLOOD SPECIMEN / UnknownVenipuncture / Xrawwbk1212/14/2024 12:10 AM EDT12/14/2024 12:23 AM EDT Narrative Authorizing ProviderResult TypeResult StatusAndnichol Truong MD98 GENERAL LABFinal ResultPerforming OrganizationAddressCity/State/ZIP CodePhone Number [facility] [address] [place] [address] * BASIC METABOLIC PANEL (12/14/2024 12:10 AM EDT)ComponentValueRef RangeTest MethodAnalysis TimePerformed AtPathologist CukasaizoZehqlos2640 - 109 mg/dL 12/14/2024 12:49 AM [facility] WNFMZOFUWJQkjrkb540251 - 145 mmol/L 12/14/2024 12:49 AM [facility] PATHOLOGY LABORATORYPotassium3.83.5 - 5.0 mmol/L 12/14/2024 12:49 AM [facility] PATHOLOGY LABORATORYCarbon Jknvnyh2682 - 31 mmol/L 12/14/2024 12:49 AM [facility] PATH[facility] TMBBWVHOGYKrzebxgn59205 - 107 mmol/L 12/14/2024 12:49 AM [facility] PATHOLOGY LABORATORYBlood Urea Puboakcg951 - 25 mg/dL12/14/2024 12:49 AM [facility] PATHOLOGY LABORATORYCreatinine0.700.60 - 1.20 mg/dL12/14/2024 12:49 AM [facility] PATHOLOGY LABORATORYCalcium9.48.6 - 10.3 mg/dL 12/14/2024 12:49 AM [facility] PATHOLOGY LABORATORYAnion Ddc6330 - 12:49 AM [facility] PATHOLOGY LABORATORYEstimated GFR (CKD-EPI)119>=60 mL/min/1.00ups2812/14/2024 12:49 AM [facility] PATHOLOGY LABORATORYComment: 2020 CKD EPI Equation using Creatinine without Race Comment: ??Estimated glomerular filtration rate (eGFR) is calculated without a race coefficient. Values should be interpreted in the context of the patient's full clinical presentation. Reference: 1. Jon Alfred, Coy M, [place] SNYDER, et al.. A Unifying Approach for GFR Estimation: Recommendations of the NKF-ASN Task Force on Reassessing the Inclusion of Race in Diagnosing Kidney Disease. AmericanJournal of Kidney Diseases 2021;79(2):268-88.e1. 2. N Engl J Med 1 Vol. 385 Issue 19 Pages 0602-4029 Specimen (Source)Anatomical Location / LateralityCollection Method / Volume Collection TimeReceived TimeBloodBLOOD SPECIMEN / UnknownVenipuncture / Unknown 12/14/2024 12:10 AM EDT12/14/2024 12:23 AM EDT Narrative Authorizing ProviderResult TypeResult StatusCarlo PENA GENERAL LABFinal ResultPerforming OrganizationAddressCity/State/ZIP CodePhone Number [facility] [address] [place] [phone] * (ABNORMAL) PHOSPHORUS (12/14/2024 12:10 AM EDT)ComponentValueRef RangeTest MethodAnalysis TimePerformed AtPathologist SignaturePhosphorus, Serum5.4(H)2.5 - 5.0 mg/dL12/14/2024 12:49 AM EDBR[facility] LABORATORYSpecimen (Source) Anatomical Location / LateralityCollection Method / VolumeCollection Time Received TimeBloodBLOOD SPECIMEN / UnknownVenipuncture / Ylnbrrg9812/14/2024 12:10 AM EDT12/14/2024 12:23 AM EDT Narrative Authorizing ProviderResult TypeResult StatusCarol PENA GENERAL LABFinal ResultPerforming OrganizationAddFairmount Behavioral Health Systemty/State/ZIP CodePhone Number [facility] [address] [place] [phone] * MAGNESIUM (12/14/2024 12:10 AM EDT)ComponentValueRef RangeTest MethodAnalysis TimePerformed AtPathologist SignatureMagnesium2.71.9 - 2.7 mg/dL12/14/2024 12:49 AM EDBRY[facility] PATH[facility] LABORATORYSpecimen (Source)Anatomical Location / LateralityCollection Method / VolumeCollection TimeReceived TimeBloodBLOOD SPECIMEN / UnknownVenipuncture / Isdzxox2612/14/2024 12:10 AM EDT12/14/2024 12:23 AM EDT Narrative Authorizing ProviderResult TypeResult StatusCarlo PENA GENERAL LABFinal ResultPerforming OrganizationAddressty/State/ZIP CodePhone Number [facility] [address] [place] [phone] * CT HEAD W/O CONTRAST (12/13/2024 6:57 PM EDT)ComponentValueRef RangeTest MethodAnalysis TimePerformed AtPathologist SignatureCTDI VOL67.5 (mGy) RADIOLOGYPHANTOM TYPEIE Head Dosimetry PhantomRADIOLOGYCT DEZ9435.6 (mGy.cm) RADIOLOGYCT SeriesHeadRADIOLOGYAnatomical RegionLateralityModalityCT Head, HeadN/AComputed TomographySpecimen (Source)Anatomical Location / Laterality Collection Method / VolumeCollection TimeReceived Time12/13/2024 7:02 PM EDT Narrative 12/13/2024 7:04 PM [...] paranasal sinuses and tympanomastoid cavities are normal. ?? IMPRESSION: No acute intracranial abnormality. MACRO: None Procedure Note Martín Cardona MD - 12/13/2024 EXAMINATION: CT HEAD W/O CONTRASTPRO 12/13/2024 06:57 PM CLINICAL HISTORY: ams ASSOCIATED DIAGNOSIS: ams ORDERING PROVIDER: CODY MIRANDA TECHNCHEPE NOTE: COMPARISON: None TECHNIQUE: Thin axial imaging of the head was performed withoutintravenous contrast. FINDINGS: No mass or acute hemorrhage. No evidence of acute infarct. The ventricles are within normal limits for age. The skull, paranasal sinuses and tympanomastoid cavities are normal. IMPRESSION: No acute intracranial abnormality. MACRO: None Authorizing ProviderResult TypeResult StatusGina Ruth DO CT SCANFinal Result * (ABNORMAL) CBC WITH DIFFERENTIAL (12/13/2024 6:33 PM EDT)ComponentValueRef RangeTest MethodAnalysis TimePerformed AtPathologist SignatureWBC8.44.5 - 11.5 K/uL12/13/2024 6:51 PM EDBRYAN [facility] PATHOLOG[facility] LABORATORYRBC5.164.00 - 5.20 M/uL 12/13/2024 6:51 PM [facility] RIJEZJWPKILipnqbsjmz77.812.0 - 15.0 g/dL 12/13/2024 6:51 PM [facility] DVELYLLDOAVxzwdpmqrr61.936.0 - 46.0 % 12/13/2024 6:51 PM [facility] IYUVDSIYIZKAW7595 - 100 fL12/13/2024 6:51 PM [facility] CMGOVEKRIMEHZ74.626.0 - 34.0 pg12/13/2024 6:51 PM [facility] JFSUFEKEYHLTZK88.332.0 - 35.9 g/dL12/13/2024 6:51 PM [facility] TYKBNTYNWJUcorzlnk159269 - 400 K/12/13/2024 6:51 PM [facility] PATHOLOGY LABORATORYRDW-CV13.011.5 - 14.5 %12/13/2024 6:51 PM [facility] PATHOLOGY LABORATORYMPV7.97.5 - 11.2 fL12/13/2024 6:51 PM [facility] Iqzckipbgwp83.631.0 - 76.0 %12/13/2024 6:51 PM [facility] Neutrophil #3.991.50 - 8.00 K/12/13/2024 6:51 PM [facility] Eyxtxoqchzv02.124.0 - 44.0 %12/13/2024 6:51 PM [facility] Lymphocytes #3.201.00 - 4.80 K/12/13/2024 6:51 PM [facility] LNCZBRMRJEUtqukaqvd72.1(H)2.0 - 11.0 %12/13/2024 6:51 PM [facility] LABORATORYMonocyte #0.930.20 - 1.00 K/12/13/2024 6:51 PM [facility] LABORATORYEosinophil2.30.1 - 4.0 %12/13/2024 6:51 PM [facility] LABORATORYEosinophil #0.200.00 - 0.70 K/12/13/2024 6:51 PM [facility] LABORATORYBasophils1.0<=1.9 %12/13/2024 6:51 PM [facility] Basophil #0.080.00 - 0.20 K/uL12/13/2024 6:51 PM [facility] Specimen (Source)Anatomical Location / LateralityCollection Method / Volume Collection TimeReceived TimeBloodBLOOD SPECIMEN / UnknownVenipuncture / Hlzoitq1012/13/2024 6:33 PM EDT12/13/2024 6:45 PM EDT Narrative Authorizing ProviderResult TypeResult StatusGina Ruth DOEC LAB ORDER ONLY Final ResultPerforming OrganizationAddressCity/State/ZIP CodePhone Number [facility] [address] [place] [address] * HIV1 HIV2 AGAB SCRN (12/13/2024 6:33 PM EDT)ComponentValueRef RangeTest Method Analysis TimePerformed AtPathologist SignatureHIV Ag-Ab ScreenNon-Reactive Non-Evnrfdfu11/26/2025 8:26 PM [facility] PATHOLOG[facility] LABORATORYComment:No laboratory evidence for HIV Infection. Negative result does not rule out acute HIV infection. Ifacute HIV infection is suspected, recommend ordering an HIV- 1 RNA quanitification test.Specimen (Source)Anatomical Location / Laterality Collection Method / VolumeCollection TimeReceived TimeBloodBLOOD SPECIMEN / UnknownVenipuncture / Dqbyeat5912/13/2024 6:33 PM EDT12/13/2024 6:44 PM EDT Narrative [facility] - 12/13/2024 8:26 PM EDT HIV Information: ??[place] Rev. code 3701.243(E): This information has been disclosed to you from confidential records protected from disclosure by state law. ??You shall make no further disclosure of this information without the specific, written, and informed release of the individual to whom it pertains, or as otherwise permitted by state law. ??A general authorization for the release of medical or other information is not sufficient for the purpose of the release of HIV test results or diagnoses. Authorizing ProviderResult TypeResult StatusGina Ruth DOEC HIV/HEP/SYPH TESTINGFinal ResultPerforming OrganizationAddressCity/State/ZIP CodePhone Number [facility] [address] [place] [address] * HIGH SENSITIVITY TROPONIN I (12/13/2024 6:33 PM EDT)ComponentValueRef Range Test MethodAnalysis TimePerformed AtPathologist [facility] Troponin I<4<=15 ng/L12/13/2024 7:15 PM [facility] PATHOLOGY LABORATORYSpecimen (Source)Anatomical Location / LateralityCollection Method / VolumeCollection TimeReceived Time BloodBLOOD SPECIMEN / UnknownVenipuncture / Gxcupor3012/13/2024 6:33 PM EDT 12/13/2024 6:45 PM EDT Narrative [facility] - 12/13/2024 7:15 [...] Interpreting delta values in ruling out ACS. ?? Always compare to initial value obtained: Absolute change (rise or fall) of less than 5 ng/L - essentially rules out ACS if assessed clinicalrisk is low. Absolute change (rise or fall) [...] Upper Reference Limit of 15 ng/L as thenormal limit (i.e. <=15 ng/L = 0 points, 16-45 ng/L = 1 point, >45 ng/L = 2 points). Disposition Intermediate hsTnI values DO NOT mandate admission to a cardiology or telemetry unit. ??They need to be interpreted within the clinical context using provider judgement. Authorizing ProviderResult TypeResult StatusGina Sandipaulette DO98 GENERAL LAB Final ResultPerforming OrganizationAddressCity/State/ZIP CodePhone Number [facility] [address] [place] [address] * BASIC METABOLIC PANEL (12/13/2024 6:33 PM EDT)ComponentValueRef RangeTest MethodAnalysis TimePerformed AtPathologist DgmzrvpixRovuyvn6950 - 109 mg/dL 12/13/2024 7:12 PM [facility] IENLJDBPPLUkaccf814065 - 145 mmol/L 12/13/2024 7:12 PM [facility] PATH[facility] LABORATORYPotassium3.63.5 - 5.0 mmol/L 12/13/2024 7:12 PM [facility] PATH[facility] LABORATORYCarbon Bkgbbjk6936 - 31 mmol/L 12/13/2024 7:12 PM [facility] CYHTGVBXQFVjhvvzce80817 - 107 mmol/L 12/13/2024 7:12 PM [facility] LABORATORYBlood Urea Fuygcrnc487 - 25 mg/dL12/13/2024 7:12 PM [facility] LABORATORYCreatinine0.750.60 - 1.20 mg/dL12/13/2024 7:12 PM [facility] LABORATORYCalcium9.78.6 - 10.3 mg/dL 12/13/2024 7:12 PM [facility] PATH[facility] LABORATORYAnion Bje0244 - 7:12 PM [facility] LABORATORYEstimated GFR (CKD-EPI)110>=60 mL/min/1.40wzd3712/13/2024 7:12 PM [facility] PATHOLOGY LABORATORYComment: 2020 CKD EPI Equation using Creatinine without Race Comment: ??Estimated glomerular filtration rate (eGFR) is calculated without a race coefficient. Values should be interpreted in the context of the patient's full clinical presentation. Reference: 1. Jon C, Barachel M, [place], et al.. A Unifying Approach for GFR Estimation: Recommendations of the NKF-ASN Task Force on Reassessing the Inclusion of Race in Diagnosing Kidney Disease. AmericanJournal of Kidney Diseases 202;79(2):268-88.e1. 2. N Engl J Med 2021 Vol. 385 Issue 19 Pages 1343-8553 Specimen (Source)Anatomical Location / LateralityCollection Method / Volume Collection TimeReceived TimeBloodBLOOD SPECIMEN / UnknownVenipuncture / Unknown 12/13/2024 6:33 PM EDT12/13/2024 6:44 PM EDT Narrative Authorizing ProviderResult TypeResult StatusGina Sandipaulette DO98 GENERAL LAB Final ResultPerforming OrganizationAddressCity/State/ZIP CodePhone Number [facility] [address] [place], [place] * PROTHROMBIN TIME AND INR (12/13/2024 6:33 PM EDT)ComponentValueRef RangeTest MethodAnalysis TimePerformed AtPathologist AswnsnryqQuylcbl53.59.7 - 12.9 sec 12/13/2024 7:17 PM [facility] LABORATORYINR1.030.90 - 1.10012/13/2024 7:17 PM [facility] LABORATORYSpecimen (Source)Anatomical Location / LateralityCollection Method / VolumeCollection TimeReceived TimeBloodBLOOD SPECIMEN / UnknownVenipuncture / Lrjtniv9912/13/2024 6:33 PM EDT12/13/2024 6:45 PM EDT Narrative Authorizing ProviderResult TypeResult StatusGina Sandideborahmann DO98 GENERAL LAB Final ResultPerforming OrganizationAddressCity/State/ZIP CodePhone Number [facility] [address] [place], [place] * PARTIAL THROMBOPLASTIN TIME (12/13/2024 6:33 PM EDT)ComponentValueRef Range Test MethodAnalysis TimePerformed AtPathologist YwamosuhwlCJZ3139 - 37 sec 12/13/2024 7:17 PM [facility] LABORATORYSpecimen (Source)Anatomical Location / LateralityCollection Method / VolumeCollection TimeReceived Time BloodBLOOD SPECIMEN / UnknownVenipuncture / Pjbuxms7212/13/2024 6:33 PM EDT 12/13/2024 6:45 PM EDT Narrative Authorizing ProviderResult TypeResult StatusGina Sandibermann DO98 GENERAL LAB Final ResultPerforming OrganizationAddressCity/State/ZIP CodePhone Number [facility] [address] [place], [place] * TSH (12/13/2024 6:33 PM EDT)ComponentValueRef RangeTest MethodAnalysis Time Performed AtPathologist SignatureTSH0.4650.450 - 5.330 uIU/mL12/13/2024 7:24 PM EDBR[facility] LABORATORYComment: Referance range for women as applicable: First Trimester: ?? 0. 050 to 3.700 uIU/mL Second Trimester: ??0. 310 to 4.350 uIU/mL Third Trimester: ?? 0. 410 to 5.180 uIU/mL Specimen (Source)Anatomical Location / LateralityCollection Method / Volume Collection TimeReceived TimeBloodBLOOD SPECIMEN / UnknownVenipuncture / Unknown 12/13/2024 6:33 PM EDT12/13/2024 6:44 PM EDT Narrative Authorizing ProviderResult TypeResult StatusGina Ruth DO98 GENERAL LAB Final ResultPerforming OrganizationAddressCity/State/ZIP CodePhone Number [facility] [address] [place] [phone] * MAGNESIUM (12/13/2024 6:33 PM EDT)ComponentValueRef RangeTest MethodAnalysis TimePerformed AtPathologist SignatureMagnesium2.41.9 - 2.7 mg/dL12/13/2024 7:12 PM [facility]BR[facility] LABORATORYSpecimen (Source)Anatomical Location / LateralityCollection Method / VolumeCollection TimeReceived TimeBloodBLOOD SPECIMEN / UnknownVenipuncture / Tzvwxrc5512/13/2024 6:33 PM EDT12/13/2024 6:44 PM EDT Narrative Authorizing ProviderResult TypeResult StatusGina Ruth DO98 GENERAL LAB Final ResultPerforming OrganizationAddressty/State/ZIP CodePhone Number [facility] [address] [place] [phone] * LACTIC ACID (12/13/2024 6:33 PM EDT)ComponentValueRef RangeTest MethodAnalysis TimePerformed AtPathologist SignatureLactate1.60.5 - 1.6 mmol/L12/13/2024 6:47 PM EDBR[facility] LABORATORYSpecimen (Source)Anatomical Location / LateralityCollection Method / VolumeCollection TimeReceived TimeBloodBLOOD SPECIMEN / UnknownVenipuncture / Ndixqew7512/13/2024 6:33 PM EDT12/13/2024 6:43 PM EDT Narrative [facility] - 12/13/2024 6:47 PM EDT This test was developed, and its performance characteristics determined by the Department of Pathology of [facility]. It has not been cleared or approved by the FDA. This test is used for clinical purposes only. Authorizing ProviderResult TypeResult StatusCody Miranda DO98 GENERAL LAB Final ResultPerforming OrganizationAddressCity/State/ZIP CodePhone Number [facility] [address] [place] [address] * GLUCOSE, FINGERSTICK-IN OFFICE (12/13/2024 6:25 PM EDT)ComponentValueRef Range Test MethodAnalysis TimePerformed AtPathologist SignatureGlucose, QXI3653 - 109 mg/dL12/13/2024 6:42 PM EDTNURSING GLUCOSE PROGRAMSpecimen (Source) Anatomical Location / LateralityCollection Method / VolumeCollection Time Received TimeBloodBLOOD SPECIMEN / Cngqghj7212/13/2024 6:25 PM EDT12/13/2024 6:42 PM EDT Narrative Authorizing ProviderResult TypeResult StatusChristina AMATO BACK OFFICE LABSFinal ResultPerforming OrganizationAddressCity/State/ZIP CodePhone Number NURSING GLUCOSE PROGRAM [address] [place] [address] * EKG 12 LEAD - PERFORM (12/13/2024 5:35 PM EDT)ComponentValueRef RangeTest MethodAnalysis TimePerformed AtPathologist SignatureVentricular hnku36CXVSHKC Atrial Zlpf43VWUQDPCF-R Lrznoesc933cfXUXEMZD buzdacpc60xqYUXUO-K wdhfcjha084hk MUSEQTC CALCULATION(BEZET)452msMUSEP gbzl35jfuqmyzBZAMU vaoz20rumspahBUQTQ cvcc61mrefdpfRDUXAbwaxijvfKuyhzp sinus rhythm Normal ECG No previous ECGs available Confirmed by Maximino RAINES WILLIAM ([id number]) on 12/16/2024 2:46:41 PM MUSESpecimen (Source)Anatomical Location / LateralityCollection Method / Volume Collection TimeReceived Time12/13/2024 5:35 PM EDT12/16/2024 2:46 PM EDT Narrative Authorizing ProviderResult TypeResult Mckayla MEDINA VITAL SIGN ORDERSEdited Result - FinalPerforming OrganizationAddressCity/State/ZIP Code Phone Number [facility] [address] [place] [address] * CBC WITH DIFFERENTIAL (12/13/2024 5:10 AM EDT)ComponentValueRef RangeTest MethodAnalysis TimePerformed AtPathologist SignatureWBC7.04.5 - 11.5 K/uL 12/13/2024 6:15 AM [facility] LABORATORYRBC4.674.00 - 5.20 M/uL 12/13/2024 6:15 AM [facility] VTOVLGIHECQqqikwxwyr40.512.0 - 15.0 g/dL 12/13/2024 6:15 AM [facility] AXXXJPCCQNRechkjddoq43.136.0 - 46.0 % 12/13/2024 6:15 AM [facility] CLWBKRIIVVFJQ4626 - 100 fL12/13/2024 6:15 AM [facility] CNZSVLFVMMNWK25.026.0 - 34.0 pg12/13/2024 6:15 AM [facility] SALGZPUQJREEDT69.632.0 - 35.9 g/dL12/13/2024 6:15 AM [facility] PVSFSEGGPPChviiwsv266873 - 400 K/uL12/13/2024 6:15 AM [facility] LABORATORYRDW-CV13.011.5 - 14.5 %12/13/2024 6:15 AM [facility] LABORATORYMPV8.07.5 - 11.2 fL12/13/2024 6:15 AM [facility] Zevqhwtenwi78.231.0 - 76.0 %12/13/2024 6:15 AM [facility] Neutrophil #3.461.50 - 8.00 K/uL12/13/2024 6:15 AM [facility] Nuuwqmqubpn99.024.0 - 44.0 %12/13/2024 6:15 AM [facility] Lymphocytes #2.661.00 - 4.80 K/12/13/2024 6:15 AM [facility] LABORATORYMonocytes9.72.0 - 11.0 %12/13/2024 6:15 AM [facility] LABORATORYMonocyte #0.680.20 - 1.00 K/12/13/2024 6:15 AM [facility] LABORATORYEosinophil2.50.1 - 4.0 %12/13/2024 6:15 AM [facility] LABORATORYEosinophil #0.170.00 - 0.70 K/uL12/13/2024 6:15 AM [facility] LABORATORYBasophils0.7<=1.9 %12/13/2024 6:15 AM [facility] Basophil #0.050.00 - 0.20 K/uL12/13/2024 6:15 AM [facility] Specimen (Source)Anatomical Location / LateralityCollection Method / Volume Collection TimeReceived TimeBloodBLOOD SPECIMEN / UnknownVenipuncture / Zaiwmmg5312/13/2024 5:10 AM EDT12/13/2024 6:10 AM EDT Narrative Authorizing ProviderResult TypeResult StatusAndnichol AMATO LAB ORDER ONLY Final ResultPerforming OrganizationAddressCity/State/ZIP CodePhone Number [facility] [address] [place] [phone] * (ABNORMAL) HEPATIC FUNCTION PANEL (12/13/2024 5:10 AM EDT)ComponentValueRef RangeTest MethodAnalysis TimePerformed AtPathologist SignatureAlbumin4.43.5 - 5.7 g/dL12/13/2024 6:35 AM [facility] PATHOLOG[facility] LABORATORYBilirubin, Direct0.07 0.03 - 0.18 mg/dL12/13/2024 6:35 AM [facility] LABORATORYBilirubin, Total0.30.3 - 1.0 mg/dL12/13/2024 6:35 AM [facility] PATHOLOGY LABORATORYComment: Note updated reference range.Alkaline Uhhnnpwnqdh5511 - 104 IU/L12/13/2024 6:35 AM [facility] LABORATORYALT (SGPT)6(L)7 - 52 IU/L12/13/2024 6:35 AM [facility] LABORATORYAST (SGOT)9(L)13 - 39 IU/L12/13/2024 6:35 AM EDT [facility] LABORATORYProtein, Total6.56.1 - 7.9 g/dL12/13/2024 6:35 AM EDT [facility] PATHOLOGY LABORATORYComment:Note updated reference range.Specimen (Source) Anatomical Location / LateralityCollection Method / VolumeCollection Time Received TimeBloodBLOOD SPECIMEN / UnknownVenipuncture / Crvuvuu1112/13/2024 5:10 AM EDT12/13/2024 6:10 AM EDT Narrative Authorizing ProviderResult TypeResult StatusCarlo Truong MD98 GENERAL LABFinal ResultPerforming OrganizationAddressCity/State/ZIP CodePhone Number [facility] [address] [place] [address] * (ABNORMAL) BASIC METABOLIC PANEL (12/13/2024 5:10 AM EDT)ComponentValueRef RangeTest MethodAnalysis TimePerformed AtPathologist ChftgjsnkSecargy813(H)74 - 109 mg/dL12/13/2024 6:35 AM [facility] UYQXKASIQMPxbwbs173089 - 145 mmol/L12/13/2024 6:35 AM [facility] LABORATORYPotassium3.53.5 - 5.0 mmol/L12/13/2024 6:35 AM [facility] LABORATORYCarbon Qbmgwvp0289 - 31 mmol/L12/13/2024 6:35 AM [facility] YLAOCKWNTVVjqqpkmn77887 - 107 mmol/L 12/13/2024 6:35 AM [facility] LABORATORYBlood Urea Gpcqzvro296 - 25 mg/dL12/13/2024 6:35 AM [facility] LABORATORYCreatinine0.620.60 - 1.20 mg/dL12/13/2024 6:35 AM [facility] LABORATORYCalcium9.48.6 - 10.3 mg/dL 12/13/2024 6:35 AM [facility] LABORATORYAnion Ckx6247 - 6:35 AM [facility] LABORATORYEstimated GFR (CKD-EPI)123>=60 mL/min/1.95wcv2112/13/2024 6:35 AM [facility] PATHOLOGY LABORATORYComment: 2020 CKD EPI Equation using Creatinine without Race Comment: ??Estimated glomerular filtration rate (eGFR) is calculated without a race coefficient. Values should be interpreted in the context of the patient's full clinical presentation. Reference: 1. Jon Alfred, Coy M, [place], et al.. A Unifying Approach for GFR Estimation: Recommendations of the NKF-ASN Task Force on Reassessing the Inclusion of Race in Diagnosing Kidney Disease. AmericanJournal of Kidney Diseases 2021;79(2):268-88.e1. 2. N Engl J Med 1 Vol. 385 Issue 19 Pages 3293-4855 Specimen (Source)Anatomical Location / LateralityCollection Method / Volume Collection TimeReceived TimeBloodBLOOD SPECIMEN / UnknownVenipuncture / Unknown 12/13/2024 5:10 AM EDT12/13/2024 6:10 AM EDT Narrative Authorizing ProviderResult TypeResult StatusCarlo PENA GENERAL LABFinal ResultPerforming OrganizationAddressCity/State/ZIP CodePhone Number [facility] [address] [place] [phone] * PHOSPHORUS (12/13/2024 5:10 AM EDT)ComponentValueRef RangeTest MethodAnalysis TimePerformed AtPathologist SignaturePhosphorus, Serum4.02.5 - 5.0 mg/dL 12/13/2024 6:35 AM EDTM PATHOLOGY LABORATORYSpecimen (Source)Anatomical Location / LateralityCollection Method / VolumeCollection TimeReceived Time BloodBLOOD SPECIMEN / UnknownVenipuncture / Zjyiohh9112/13/2024 5:10 AM EDT 12/13/2024 6:10 AM EDT Narrative Authorizing ProviderResult TypeResult StatusCarlo PENA GENERAL LABFinal ResultPerforming OrganizationAddFairmount Behavioral Health Systemty/State/ZIP CodePhone Number [facility] [address] [place] [phone] * MAGNESIUM (12/13/2024 5:10 AM EDT)ComponentValueRef RangeTest MethodAnalysis TimePerformed AtPathologist SignatureMagnesium2.21.9 - 2.7 mg/dL12/13/2024 6:35 AM EDTM PATHOLOGY LABORATORYSpecimen (Source)Anatomical Location / LateralityCollection Method / VolumeCollection TimeReceived TimeBloodBLOOD SPECIMEN / UnknownVenipuncture / Awtdyrd5012/13/2024 5:10 AM EDT12/13/2024 6:10 AM EDT Narrative Authorizing ProviderResult TypeResult StatusCarlo PENA GENERAL LABFinal ResultPerforming OrganizationAddressty/State/ZIP CodePhone Number [facility] [address] [place] [address] [place] [phone] * CBC WITH DIFFERENTIAL (12/12/2024 4:35 AM EDT)ComponentValueRef RangeTest MethodAnalysis TimePerformed AtPathologist SignatureWBC6.34.5 - 11.5 K/uL 12/12/2024 4:44 AM [facility] LABORATORYRBC4.864.00 - 5.20 M/uL 12/12/2024 4:44 AM [facility] RHIADTXKDPZvcbkozzse60.712.0 - 15.0 g/dL 12/12/2024 4:44 AM [facility] OIVOUBKRTTGbtgezhtgq67.336.0 - 46.0 % 12/12/2024 4:44 AM [facility] JMFPRZBLCAEZQ3045 - 100 fL12/12/2024 4:44 AM [facility] LUKLDOOKTFPTU79.126.0 - 34.0 pg12/12/2024 4:44 AM [facility] TKZDYPNVKKTKHX81.832.0 - 35.9 g/dL12/12/2024 4:44 AM [facility] TJBFQOGBWNRdijgvql927995 - 400 K/uL12/12/2024 4:44 AM [facility] LABORATORYRDW-CV12.911.5 - 14.5 %12/12/2024 4:44 AM [facility] LABORATORYMPV8.07.5 - 11.2 fL12/12/2024 4:44 AM [facility]OR[facility]ORY Jnfjjjmkmop23.731.0 - 76.0 %12/12/2024 4:44 AM [facility] Neutrophil #3.331.50 - 8.00 K/uL12/12/2024 4:44 AM [facility] Ikocynjhjas15.924.0 - 44.0 %12/12/2024 4:44 AM [facility] Lymphocytes #2.081.00 - 4.80 K/uL12/12/2024 4:44 AM [facility] JVHAHPHDFUKovnayrcr71.82.0 - 11.0 %12/12/2024 4:44 AM [facility] LABORATORYMonocyte #0.680.20 - 1.00 K/uL12/12/2024 4:44 AM [facility] LABORATORYEosinophil2.70.1 - 4.0 %12/12/2024 4:44 AM [facility] LABORATORYEosinophil #0.170.00 - 0.70 K/uL12/12/2024 4:44 AM [facility] LABORATORYBasophils0.9<=1.9 %12/12/2024 4:44 AM [facility] Basophil #0.060.00 - 0.20 K/uL12/12/2024 4:44 AM [facility] Specimen (Source)Anatomical Location / LateralityCollection Method / Volume Collection TimeReceived TimeBloodBLOOD SPECIMEN / UnknownVenipuncture / Ywhugxk5812/12/2024 4:35 AM EDT12/12/2024 4:39 AM EDT Narrative Authorizing ProviderResult TypeResult StatusAndnichol AMATO LAB ORDER ONLY Final ResultPerforming OrganizationAddressCity/State/ZIP CodePhone Number [facility] [address] [place] [phone] * (ABNORMAL) HEPATIC FUNCTION PANEL (12/12/2024 4:35 AM EDT)ComponentValueRef RangeTest MethodAnalysis TimePerformed AtPathologist SignatureAlbumin4.53.5 - 5.7 g/dL12/12/2024 5:08 AM [facility] LABORATORYBilirubin, Direct0.08 0.03 - 0.18 mg/dL12/12/2024 5:08 AM [facility] LABORATORYBilirubin, Total0.40.3 - 1.0 mg/dL12/12/2024 5:08 AM [facility] LABORATORYComment: Note updated reference range.Alkaline Ezkrufyeiea2961 - 104 IU/L12/12/2024 5:08 AM [facility] LABORATORYALT (SGPT)77 - 52 IU/L12/12/2024 5:08 AM [facility] LABORATORYAST (SGOT)10(L)13 - 39 IU/L12/12/2024 5:08 AM EDT [facility] LABORATORYProtein, Total6.56.1 - 7.9 g/dL12/12/2024 5:08 AM EDT [facility] PATHOLOGY LABORATORYComment:Note updated reference range.Specimen (Source) Anatomical Location / LateralityCollection Method / VolumeCollection Time Received TimeBloodBLOOD SPECIMEN / UnknownVenipuncture / Jhghhfl6512/12/2024 4:35 AM EDT12/12/2024 4:39 AM EDT Narrative Authorizing ProviderResult TypeResult StatusAndnichol Truong MD98 GENERAL LABFinal ResultPerforming OrganizationAddressCity/State/ZIP CodePhone Number [facility] [address] [place] [address] * (ABNORMAL) BASIC METABOLIC PANEL (12/12/2024 4:35 AM EDT)ComponentValueRef RangeTest MethodAnalysis TimePerformed AtPathologist IqtwrhtmfUubqxml316(H)74 - 109 mg/dL12/12/2024 5:08 AM [facility] XBORBEQVTMArdror473655 - 145 mmol/L12/12/2024 5:08 AM [facility] LABORATORYPotassium3.53.5 - 5.0 mmol/L12/12/2024 5:08 AM [facility] LABORATORYCarbon Nfrhqnu1211 - 31 mmol/L12/12/2024 5:08 AM [facility] YOECYOSDXPFndzcocq19305 - 107 mmol/L 12/12/2024 5:08 AM [facility] LABORATORYBlood Urea Nitrogen4(L)7 - 25 mg/dL12/12/2024 5:08 AM [facility] LABORATORYCreatinine0.620.60 - 1.20 mg/dL12/12/2024 5:08 AM [facility] LABORATORYCalcium9.38.6 - 10.3 mg/dL 12/12/2024 5:08 AM [facility] LABORATORYAnion Ejc7072 - 5:08 AM [facility] LABORATORYEstimated GFR (CKD-EPI)123>=60 mL/min/1.83sah3212/12/2024 5:08 AM [facility] PATH[facility] LABORATORYComment: 2020 CKD EPI Equation using Creatinine without Race Comment: ??Estimated glomerular filtration rate (eGFR) is calculated without a race coefficient. Values should be interpreted in the context of the patient's full clinical presentation. Reference: 1. Jon Alfred, Coy M, [place] SNYDER, et al.. A Unifying Approach for GFR Estimation: Recommendations of the NKF-ASN Task Force on Reassessing the Inclusion of Race in Diagnosing Kidney Disease. AmericanJournal of Kidney Diseases 2021;79(2):268-88.e1. 2. N Engl J Med 1 Vol. 385 Issue 19 Pages 0224-5423 Specimen (Source)Anatomical Location / LateralityCollection Method / Volume Collection TimeReceived TimeBloodBLOOD SPECIMEN / UnknownVenipuncture / Unknown 12/12/2024 4:35 AM EDT12/12/2024 4:39 AM EDT Narrative Authorizing ProviderResult TypeResult StatusAndnichol [facility] GENERAL LABFinal ResultPerforming OrganizationAddressCity/State/ZIP CodePhone Number [facility] [address] [place] [phone] * PHOSPHORUS (12/12/2024 4:35 AM EDT)ComponentValueRef RangeTest MethodAnalysis TimePerformed AtPathologist SignaturePhosphorus, Serum3.72.5 - 5.0 mg/dL 12/12/2024 5:08 AM EDTM PATHOLOGY LABORATORYSpecimen (Source)Anatomical Location / LateralityCollection Method / VolumeCollection TimeReceived Time BloodBLOOD SPECIMEN / UnknownVenipuncture / Ettcwks4112/12/2024 4:35 AM EDT 12/12/2024 4:39 AM EDT Narrative Authorizing ProviderResult TypeResult StatusCarlo PENA GENERAL LABFinal ResultPerforming OrganizationAddressCity/State/ZIP CodePhone Number [facility] [address] [place] [phone] * MAGNESIUM (12/12/2024 4:35 AM EDT)ComponentValueRef RangeTest MethodAnalysis TimePerformed AtPathologist SignatureMagnesium2.31.9 - 2.7 mg/dL12/12/2024 5:08 AM [facility] LABORATORYSpecimen (Source)Anatomical Location / LateralityCollection Method / VolumeCollection TimeReceived TimeBloodBLOOD SPECIMEN / UnknownVenipuncture / Lfesvbz0712/12/2024 4:35 AM EDT12/12/2024 4:39 AM EDT Narrative Authorizing ProviderResult TypeResult StatusCarlo PENA GENERAL LABFinal ResultPerforming OrganizationAddressCity/State/ZIP CodePhone Number [facility] [address] [place] [phone] * SURGICAL GI ANATOMIC PATHOLOGY (12/11/2024 1:51 PM EDT)ComponentValueRef Range Test MethodAnalysis TimePerformed AtPathologist SignatureCase ReportSurgical Pathology Report ? Case: [id number] ? Authorizing Provider: ??Stella Weinstein DO ? Collected: ? 12/11/2024 1351 ? Ordering Location: ? [facility] ?Received: ?12/12/2024 1425 ? Pathologist: ? Brynn Fuller MD ? Specimen: ?Colon biopsy ? 12/16/2024 10:56 AM [facility] PATHOLOGY LABORATORYFinal DiagnosisA. Colon, biopsy: Fragments of colonic mucosa with focal stromal edema. No active inflammation, increased lamina propria chronic inflammation, evidence of lymphocytic colitis, granulomas or dysplasia seen. . I certify that I personally conducted the diagnostic evaluation of the above specimen(s) and have rendered the final diagnosis(es). 12/16/2024 10:56 AM [facility] at 1056 EDTGross DescriptionA. Requisitioned as colon biopsy . The specimen is received fixed in a single container, labeled with patient's name, medical record number, and surgical number. Marked as random colon . The specimen consists of multiple piece(s) of velazquez soft tissue measuring 2.4 x 0.3 x 0.1 cm in aggregate. The specimen is submitted in toto in one cassette. [X]. RR12/16/2024 10:56 AM [facility] LABORATORYClinical Prmrfjyxcrg55/29/2025 10:56 AM [facility] PATHOLOGY LABORATORYSpecimen (Source)Anatomical Location / LateralityCollection Method / VolumeCollection TimeReceived TimeTissueCOLONIC BIOPSY SPECIMEN / Cbydmar0312/11/2024 1:51 PM EDT12/12/2024 2:25 PM EDT Narrative Authorizing ProviderResult TypeResult StatusStella DEWITT ANATOMICAL PATHOLOGY (LAB)Final ResultPerforming OrganizationAddressCity/State/ZIP Code Phone Number [facility] [address] [place] [address] * FECAL FAT, QUALITATIVE (CRIT * (12/11/2024 1:47 AM EDT)ComponentValueRef Range Test MethodAnalysis TimePerformed AtPathologist SignatureNeutral FatNormal Vsuted2512/11/2024 2:14 AM [facility] PATH[facility]Y LABORATORYSplit FatNormalNormal 12/11/2024 2:14 AM [facility] PATH[facility]Y LABORATORYSpecimen (Source)Anatomical Location / LateralityCollection Method / VolumeCollection TimeReceived Time StoolSTOOL SPECIMEN / Fcwfkjx5412/11/2024 1:47 AM EDT12/11/2024 1:56 AM EDT Narrative Authorizing ProviderResult TypeResult StatusDesire Joel MD98 GENERAL LAB Final ResultPerforming OrganizationAddressCity/State/ZIP CodePhone Number [facility] [address] [place] [address] * PH, STOOL (12/11/2024 1:47 AM EDT)ComponentValueRef RangeTest MethodAnalysis TimePerformed AtPathologist SignatureStool pH7. 2:14 AM [facility] PATHOLOGY LABORATORYSpecimen (Source)Anatomical Location / Laterality Collection Method / VolumeCollection TimeReceived TimeStoolSTOOL SPECIMEN / Edpcvld8512/11/2024 1:47 AM EDT12/11/2024 1:56 AM EDT Narrative Authorizing ProviderResult TypeResult StatusDesire PENA GENERAL LAB Final ResultPerforming OrganizationAddressty/State/ZIP CodePhone Number [facility] [address] [place] [address] * SODIUM, STOOL (12/11/2024 1:47 AM EDT)ComponentValueRef RangeTest Method Analysis TimePerformed AtPathologist SignatureSodium, Eouwi08sAp/L12/17/2024 6:53 PM EDTQUEST DIAGNOSTICS REFERENCE LABORATORYComment: Reference ranges have not been established. However, Fecal Osmotic Gap in mOsm/kg can be calculated using the following equation: Fecal Osmotic Gap = 290-2x([Na] + [K]). A Fecal Osmotic gap of 125 mOsm/kg or greater is indicative of osmotic diarrhea, whereas a result of 50 mOsm/kg or less indicates a secretory diarrhea. ? Specimen (Source)Anatomical Location / LateralityCollection Method / Volume Collection TimeReceived TimeStoolSTOOL SPECIMEN / Ofcluun5912/11/2024 1:47 AM EDT 12/11/2024 1:56 AM EDT Narrative [facility] - 12/17/2024 6:53 PM EDT Resulting Agency Address ?Site ID: AMD ?Name: [employer] ?Address: [address] [place] [address] ?Director: Sin Bradford M.D.,PhD Authorizing ProviderResult TypeResult StatusDesire Joel MD98 GENERAL LAB Final ResultPerforming OrganizationAddFairmount Behavioral Health Systemty/State/ZIP CodePhone Number [facility] [address] * POTASSIUM, STOOL (12/11/2024 1:47 AM EDT)ComponentValueRef RangeTest Method Analysis TimePerformed AtPathologist SignaturePotassium, Stool7.2mEq/L 12/17/2024 6:53 PM EDTQUEST DIAGNOSTICS REFERENCE LABORATORYComment: Reference ranges have not been established. However, Fecal Osmotic Gap in mOsm/kg can be calculated using the following equation: Fecal Osmotic Gap = 290-2x([Na] + [K]). A Fecal Osmotic gap of 125 mOsm/kg or greater is indicative of osmotic diarrhea, whereas a result of 50 mOsm/kg or less indicates a secretory diarrhea. ? Specimen (Source)Anatomical Location / LateralityCollection Method / Volume Collection TimeReceived TimeStoolSTOOL SPECIMEN / Bltsvai9112/11/2024 1:47 AM EDT 12/11/2024 1:56 AM EDT Narrative [facility] - 12/17/2024 6:53 PM EDT Resulting Agency Address ?Site ID: AMD ?Name: [employer] ?Address: [address] [place] [address] [place], [place] ?Director: Sin Bradford M.D.,PhD Authorizing ProviderResult TypeResult StatusDesire Joel MD98 GENERAL LAB Final ResultPerforming OrganizationAddressCity/State/ZIP CodePhone Number [facility] [address] [place] [address] * OSMOLALITY, STOOL (12/11/2024 1:47 AM EDT)ComponentValueRef RangeTest Method Analysis TimePerformed AtPathologist SignatureOsmolality, Wgmus793mXdp/kg 12/15/2024 11:03 AM EDTQUEST DIAGNOSTICS REFERENCE LABORATORYComment: In patients with unexplained diarrhea, osmolalities <290 [...] analytical performance characteristics have been determined by [place]. It has not been cleared or approved by the FDA. This assay has been validated pursuant to the CLIA regulations and is used for clinical purposes. Specimen (Source)Anatomical Location / LateralityCollection Method / Volume Collection TimeReceived TimeStoolSTOOL SPECIMEN / Gpulkge2412/11/2024 1:47 AM EDT 12/11/2024 1:56 AM EDT Narrative [facility] - 12/15/2024 11:03 AM EDT Resulting Agency Address ?Site ID: AMD ?Name: [employer] [facility] ?Address: [address] [place] [address] [place], [place] ?Director: Sin Bradford M.D.,PhD Authorizing ProviderResult TypeResult StatusDesire PENA GENERAL LAB Final ResultPerforming OrganizationAddFairmount Behavioral Health Systemty/State/ZIP CodePhone Number [facility] [address] [place] [address] * CHLORIDE, STOOL (12/11/2024 1:47 AM EDT)ComponentValueRef RangeTest Method Analysis TimePerformed AtPathologist SignatureChloride, Brpdk27oWo/L12/17/2024 6:53 PM EDTQUEST DIAGNOSTICS REFERENCE LABORATORYComment: Reference range not established. ? Specimen (Source)Anatomical Location / LateralityCollection Method / Volume Collection TimeReceived TimeStoolSTOOL SPECIMEN / Jzotuiq9012/11/2024 1:47 AM EDT 12/11/2024 1:56 AM EDT Narrative [facility] - 12/17/2024 6:53 PM EDT Resulting Agency Address ?Site ID: AMD ?Name: [employer] [facility] ?Address: [address] [place] [address] [address] [place], [place] ?Director: Sin Bradford M.D.,PhD Authorizing ProviderResult TypeResult StatusDesire PENA GENERAL LAB Final ResultPerforming OrganizationAdd[facility]/State/ZIP CodePhone Number [facility] [address] [place] [address] * XR ABDOMEN SUPINE + ERECT 2 VIEWS (12/10/2024 12:39 PM EDT)Anatomical Region LateralityModalityXR AbdomenN/AComputed RadiographySpecimen (Source)Anatomical Location / LateralityCollection Method / VolumeCollection TimeReceived Time 12/10/2024 12:52 PM EDT Narrative 12/10/2024 12:55 PM EDT EXAMINATION: XR ABDOMEN SUPINE + ERECT 2 VIEWSPRO 12/10/2024 12:39 PM CLINICAL HISTORY: acute on chronic abd pain, GI wants for stool burden eval ASSOCIATED DIAGNOSIS: ORDERING PROVIDER: ADOLFO ROSAS TECHNCHEPE NOTE: COMPARISON: None IMPRESSION: No free [...] stool burdeneval ASSOCIATED DIAGNOSIS: ORDERING PROVIDER: ADOLFO CORONA NOTE: COMPARISON: None IMPRESSION: No free intraperitoneal air or significant air-fluid levels on the uprightview. Multiple nonspecific gaseously prominent loops of bowel are presentthroughout the abdomen with a presumed surgical anastomosis in the righthemiabdomen. No significant stool burden. MACRO: None Authorizing ProviderResult TypeResult StatusThsloane AMATO DIAGNOSTIC X-RAYFinal Result * (ABNORMAL) HEPATIC FUNCTION PANEL (12/10/2024 3:23 AM EDT)ComponentValueRef RangeTest MethodAnalysis TimePerformed AtPathologist SignatureAlbumin4.43.5 - 5.7 g/dL12/10/2024 3:59 AM [facility] PATHOLOG[facility] LABORATORYBilirubin, Direct0.10 0.03 - 0.18 mg/dL12/10/2024 3:59 AM [facility] LABORATORYBilirubin, Total0.60.3 - 1.0 mg/dL12/10/2024 3:59 AM [facility] PATHOLOGY LABORATORYComment: Note updated reference range.Alkaline Sknjduigkug0412 - 104 IU/L12/10/2024 3:59 AM [facility] LABORATORYALT (SGPT)77 - 52 IU/L12/10/2024 3:59 AM EDBR[facility] PATH[facility]Y LABORATORYAST (SGOT)9(L)13 - 39 IU/L12/10/2024 3:59 AM [facility] LABORATORYProtein, Total6.66.1 - 7.9 g/dL12/10/2024 3:59 AM EDBRYAN [facility]ITFIELD [facility] PATHOLOGY LABORATORYComment:Note updated reference range.Specimen (Source) Anatomical Location / LateralityCollection Method / VolumeCollection Time Received TimeBloodBLOOD SPECIMEN / UnknownVenipuncture / Jlxtcjl2512/10/2024 3:23 AM EDT12/10/2024 3:32 AM EDT Narrative Authorizing ProviderResult TypeResult StatusJeshavonne Ramirez MD98 GENERAL LAB Final ResultPerforming OrganizationAddressCity/State/ZIP CodePhone Number [facility] [address] [place] [address] * (ABNORMAL) URINALYSIS (12/09/2024 8:15 AM EDT)ComponentValueRef RangeTest MethodAnalysis TimePerformed AtPathologist SignatureColorYellowColorless 12/09/2024 8:44 AM [facility]Y JJMFRRZKIPVatngyprutPadhopTmyza87/22/2025 8:44 AM [facility] LABORATORYpH6.05.0 - 8.009 8:44 AM [facility] LABORATORYSpec Gravity1.024<=1.9942112/09/2024 8:44 AM [facility] AFGRHTQMMXLqkkgyp24Xyrzstwm mg/dL12/09/2024 8:44 AM [facility] BTKFMIHCXBEagtdKxfpzuabNewlqhub40/22/2025 8:44 AM [facility]ORY FplwvmcccLdtvyazvHmhazgph10/22/2025 8:44 AM [facility] Urobilinogen2.0(A)Negative mg/dL12/09/2024 8:44 AM [facility] Ipvftei48(A)Negative mg/dL12/09/2024 8:44 AM [facility] LABORATORYLeuk. EsterasePositive(A)Dbpcejzv07/22/2025 8:44 AM [facility] Comment:Normal urine specimens will not produce a positive reaction. Small amounts of leukocyte esterase, causing a positive reaction should be repeated, using a fresh urine specimen, from the same patient. Positive results require further testing for pyuria.IspxljgEecwrwwsKvposcwn54/22/2025 8:44 AM [facility] LABORATORYGlucoseNegativeNegative mg/dL12/09/2024 8:44 AM [facility] TTNELBHKJLTAQ77-93(A)0 - 2 /HPF12/09/2024 8:44 AM [facility] LABORATORYRBC6-10(A)0 - 2 /HPF12/09/2024 8:44 AM [facility] BacteriaFew/HPF12/09/2024 8:44 AM [facility] LABORATORYYeastFew/HPF 12/09/2024 8:44 AM [facility] LABORATORYMucous XgdjzdcMrwzezd82/22/2025 8:44 AM [facility]Y LABORATORYSquamous Epithelial6-100 - 10 /HPF 12/09/2024 8:44 AM [facility] LABORATORYSpecimen (Source)Anatomical Location / LateralityCollection Method / VolumeCollection TimeReceived Time UrineMID-STREAM URINE SPECIMEN / Ldrxmmi4512/09/2024 8:15 AM EDT12/09/2024 8:18 AM EDT Narrative [facility] - 12/09/2024 8:44 AM EDT A negative leukocyte esterase AND negative nitrite test or absence of pyuria (urine WBC count <= 5-10) make a UTI (urinary tract infection) very unlikely in a non-neutropenic adult (<=5% likelihood in many studies). ? A positive leukocyte esterase, nitrite and/or pyuria is a nonspecific ? result. ??This can be seen in conditions other than a UTI e.g. asymptomatic bacteriuria, gynecologic infections, sexually transmitted infections, and noninfectious conditions (positive predictive value for UTI around 50%) ?? Authorizing ProviderResult TypeResult StatusJohn Ramirez MD98 GENERAL LAB Final ResultPerforming OrganizationAddressCity/State/ZIP CodePhone Number [facility] [address] [place] [address] * HCG URINE (12/09/2024 8:15 AM EDT)ComponentValueRef RangeTest MethodAnalysis TimePerformed AtPathologist SignatureHCG, QpucvPbyvngqqGblgfxzn21/22/2025 8:33 AM [facility] LABORATORYSpecimen (Source)Anatomical Location / LateralityCollection Method / VolumeCollection TimeReceived TimeUrineURINE SPECIMEN / Inzgcua7112/09/2024 8:15 AM EDT12/09/2024 8:18 AM EDT Narrative Authorizing ProviderResult TypeResult StatusJohn Ramirez MD98 GENERAL LAB Final ResultPerforming OrganizationAddressCity/State/ZIP CodePhone Number [facility] [address] [place] [address] * CBC WITH DIFFERENTIAL (12/09/2024 8:03 AM EDT)ComponentValueRef RangeTest MethodAnalysis TimePerformed AtPathologist SignatureWBC6.64.5 - 11.5 K/uL 12/09/2024 8:31 AM [facility] LABORATORYRBC4.874.00 - 5.20 M/uL 12/09/2024 8:31 AM [facility] YZZKUNCHAIWypsbxscay24.812.0 - 15.0 g/dL 12/09/2024 8:31 AM [facility] PIGSWWXZWIMflanmhgvc78.936.0 - 46.0 % 12/09/2024 8:31 AM [facility] QUKWHOZCDNWSZ3057 - 100 fL12/09/2024 8:31 AM [facility] ELDLPFXDAGAJQ74.326.0 - 34.0 pg12/09/2024 8:31 AM [facility] MURFGGBJMGSGDA48.432.0 - 35.9 g/dL12/09/2024 8:31 AM [facility] FNXQRXEWYZBytymowg198948 - 400 K/uL12/09/2024 8:31 AM [facility] LABORATORYRDW-CV12.811.5 - 14.5 %12/09/2024 8:31 AM [facility] LABORATORYMPV8.37.5 - 11.2 fL12/09/2024 8:31 AM [facility] Vjaovhwzeah79.131.0 - 76.0 %12/09/2024 8:31 AM [facility] Neutrophil #4.141.50 - 8.00 K/uL12/09/2024 8:31 AM [facility] Bxwntxvsnfl01.324.0 - 44.0 %12/09/2024 8:31 AM [facility] Lymphocytes #1.661.00 - 4.80 K/uL12/09/2024 8:31 AM [facility] XLUTJJXFYHUcpugdoij55.02.0 - 11.0 %12/09/2024 8:31 AM [facility] LABORATORYMonocyte #0.660.20 - 1.00 K/uL12/09/2024 8:31 AM [facility] LABORATORYEosinophil1.20.1 - 4.0 %12/09/2024 8:31 AM [facility] LABORATORYEosinophil #0.080.00 - 0.70 K/12/09/2024 8:31 AM [facility] LABORATORYBasophils0.3<=1.9 %12/09/2024 8:31 AM [facility] Basophil #0.020.00 - 0.20 K/12/09/2024 8:31 AM [facility] MDW17<= 8:31 AM [facility]Y LABORATORYSpecimen (Source) Anatomical Location / LateralityCollection Method / VolumeCollection Time Received TimeBloodBLOOD SPECIMEN / UnknownVenipuncture / Xkbnfth2612/09/2024 8:03 AM EDT12/09/2024 8:15 AM EDT Narrative Authorizing ProviderResult TypeResult StatusJeshavonne AMATO LAB ORDER ONLYFinal ResultPerforming OrganizationAddressCity/State/ZIP CodePhone Number [facility] [address] [place] [address] * (ABNORMAL) HEPATIC FUNCTION PANEL (12/09/2024 8:03 AM EDT)ComponentValueRef RangeTest MethodAnalysis TimePerformed AtPathologist SignatureAlbumin4.93.5 - 5.7 g/dL12/09/2024 8:41 AM [facility] LABORATORYBilirubin, Direct0.16 0.03 - 0.18 mg/dL12/09/2024 8:41 AM [facility] LABORATORYBilirubin, Total1.2(H)0.3 - 1.0 mg/dL12/09/2024 8:41 AM [facility] Comment:Note updated reference range.Alkaline Ncfingndbbx3937 - 104 IU/L 12/09/2024 8:41 AM [facility] LABORATORYALT (SGPT)97 - 52 IU/L12/09/2024 8:41 AM [facility] LABORATORYAST (SGOT)10(L)13 - 39 IU/L12/09/2024 8:41 AM [facility] LABORATORYProtein, Total7.26.1 - 7.9 g/dL12/09/2024 8:41 AM [facility] PATHOLOGY LABORATORYComment:Note updated reference range.Specimen (Source)Anatomical Location / LateralityCollection Method / VolumeCollection TimeReceived TimeBloodBLOOD SPECIMEN / UnknownVenipuncture / Lkvxrnw6412/09/2024 8:03 AM EDT12/09/2024 8:15 AM EDT Narrative Authorizing ProviderResult TypeResult StatusJeremiabert Ramirez MD98 GENERAL LAB Final ResultPerforming OrganizationAddressCity/State/ZIP CodePhone Number [facility] [address] [place] [address] * BASIC METABOLIC PANEL (12/09/2024 8:03 AM EDT)ComponentValueRef RangeTest MethodAnalysis TimePerformed AtPathologist FxrrucyntDmjcipn3486 - 109 mg/dL 12/09/2024 8:41 AM [facility] PQPCEBSPSJYhztbv093425 - 145 mmol/L 12/09/2024 8:41 AM [facility] LABORATORYPotassium3.73.5 - 5.0 mmol/L 12/09/2024 8:41 AM [facility] LABORATORYCarbon Mycqtkp9230 - 31 mmol/L 12/09/2024 8:41 AM [facility] VGMIGKPTENXqvwloqo97047 - 107 mmol/L 12/09/2024 8:41 AM [facility] LABORATORYBlood Urea Evzasmea843 - 25 mg/dL12/09/2024 8:41 AM [facility] LABORATORYCreatinine0.670.60 - 1.20 mg/dL12/09/2024 8:41 AM [facility] LABORATORYCalcium9.68.6 - 10.3 mg/dL 12/09/2024 8:41 AM [facility] LABORATORYAnion Wgx5167 - 8:41 AM [facility] LABORATORYEstimated GFR (CKD-EPI)121>=60 mL/min/1.26cjv9312/09/2024 8:41 AM [facility] PATH[facility] LABORATORYComment: 2020 CKD EPI Equation using Creatinine without Race Comment: ??Estimated glomerular filtration rate (eGFR) is calculated without a race coefficient. Values should be interpreted in the context of the patient's full clinical presentation. Reference: 1. Jon C, Coy M, [place] SNYDER, et al.. A Unifying Approach for GFR Estimation: Recommendations of the NKF-ASN Task Force on Reassessing the Inclusion of Race in Diagnosing Kidney Disease. AmericanJournal of Kidney Diseases 2021;79(2):268-88.e1. 2. N Engl J Med 2020 Vol. 385 Issue 19 Pages 4753-5571 Specimen (Source)Anatomical Location / LateralityCollection Method / Volume Collection TimeReceived TimeBloodBLOOD SPECIMEN / UnknownVenipuncture / Unknown 12/09/2024 8:03 AM EDT12/09/2024 8:15 AM EDT Narrative Authorizing ProviderResult TypeResult StatusJohn Ramirez MD98 GENERAL LAB Final ResultPerforming OrganizationAddressCity/State/ZIP CodePhone Number [facility] [address] [place] [address] * (ABNORMAL) LIPASE (12/09/2024 8:03 AM EDT)ComponentValueRef RangeTest Method Analysis TimePerformed AtPathologist SignatureLipase9(L)11 - 82 IU/L12/09/2024 8:41 AM [facility] LABORATORYSpecimen (Source)Anatomical Location / LateralityCollection Method / VolumeCollection TimeReceived TimeBloodBLOOD SPECIMEN / UnknownVenipuncture / Oqdabpg4112/09/2024 8:03 AM EDT12/09/2024 8:15 AM EDT Narrative Authorizing ProviderResult TypeResult StatusJohn Ramirez MD98 GENERAL LAB Final ResultPerforming OrganizationAddressCity/State/ZIP CodePhone Number [facility] [address], [place] from Last 3 Months Insurance [facility] Address: [facility] [id number] [place] [address] [address] [place] [address] Advance Directives * Full Code (Latest Code Status on File) Date ActivatedDate InactivatedComments12/11/2024 11:06 AM12/14/2024 8:46 PM QuestionAnswerCommentsDocumentation of decision process for this code status:* Discussed with patient or surrogate.?? This is the code status chosen by the patient/surrogate. * Full Code Date ActivatedDate InactivatedComments12/09/2024 12:03 PM12/11/2024 11:06 AM QuestionAnswerCommentsDocumentation of decision process for this code status:* Discussed with patient or surrogate.?? This is the code status chosen by the patient/surrogate.
--- OUTSIDE RECORDS SUMMARY | 2025-01-13 20:39 | XMS_ITS | Clinical Summary ---
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 Director Name Role Phone Unavailable Primary Care Provider Unavailabl e Medications No known medications Active Problems No known active problems Social History Tobacco UseTypesPacks/DayYears UsedDateSmoking Tobacco: Never Assessed CommentsUnknownSex and Gender InformationValueDate RecordedSex Assigned at Not on fileLegal NmpRccaxx90/01/2015 10:06 AM EDTGender IdentityNot on file Sexual OrientationNot on file Plan of Treatment Health MaintenanceDue DateLast DoneCommentsHEPATITIS C VIRUS NOCIHVFLV1994 TMLPFBR87 1994HIV SCREENING PLZZEQHSFB51/15/2009HEP B VACCINE (1 of 3 - 19+ 3-dose series)2013TDAP (ADULT)2013CERVICAL CANCER SCREENING CXUFCLSLLT32/15/2015HPV VACCINE (1 - 3-dose SCDM series)1COVID-19 VACCINE ( - 2024-26 season)2024INFLUENZA VACCINE (#1)2024 PNEUMOCOCCAL VACCINE SERIESAged OutNo longer eligible based on patient's age to complete this topic Insurance
--- OUTSIDE RECORDS SUMMARY | 2025-01-13 20:39 | XMS_ITS | Clinical Summary ---
Author Organization [facility] Address [address] [place] [address] Phone Care Team Providers Care Bench Worker Name Role Phone Kami Olvera MD Primary Care Provider [phone] Allergies Active AllergyReactionsCriticalityNoted DateCommentsDiphenhydramineAnaphylaxis, Hives,Rash,ZdbhuqmHfcx75/13/9278XpzcsxodIcnlqYcwgap06/18/2025 Pt previously tolerated oral morphine in past. Tolerates dilaudid. Medications MedicationSigDispense QuantityRefillsLast FilledStart DateEnd DateStatus HYDROmorphone (Dilaudid) 2 mg tablet Take 1 tablet (2 mg) by mouth every 4 hours if needed for severe pain (7 - 10). Active venlafaxine 225 mg 24 hr tablet Take 1 tablet (225 mg) by mouth once daily. Take with food.09/01/2020ctive buPROPion SR (Wellbutrin SR) 100 mg 12 hr tablet Take 1 tablet (100 mg) by mouth 2 times a day.Active zolpidem (Ambien) 10 mg tablet Take 1 tablet (10 mg) by mouth as needed at bedtime for sleep.5Active linaCLOtide (Linzess) 72 mcg capsule Take 1 capsule (72 mcg) by mouth once daily in the morning. Take before meals. ctive Emgality Syringe 120 mg/mL prefilled syringe Inject under the skin every 30 (thirty) days.02/18/2021ctive ondansetron ODT (Zofran-ODT) 4 mg disintegrating tablet Indications:Abdominal pain, epigastric,NauseaDissolve 1 tablet (4 mg) in the mouth every 8 hours if needed for nausea or vomiting for up to 7 days. 20 tablet 5012/16/2024Expired Active Problems ProblemNoted DateDiagnosed DateAbdominal pain, xsdsugljky16/19/2025 Encounters DateTypeDepartmentCare IcatRpbyxvhgwhn24/22/2025Telephone [facility] Emergency Medicine [address] [place] [address] Skyler Olson DO 12/07/2024 9:00 AM EDTClinical Support [facility] Emergency Medicine [address] [place] [address] 12/07/2024Documentation [facility] [address] [place] [address] Eleanor Clifford RN 12/06/2024 6:45 PM EDTClinical Support [facility] Emergency Medicine [address] [place] [address] 12/05/2024 3:05 PM EDT - 12/09/2024 7:06 AM EDTEmergency [facility] Medicine [address] [place] [address] Kelsy Mchugh MD Martella, MD Kaveh Loco Yael R, MD Virgen, Laura L, DO McFarland, Adam, MD Pope, Sara, DO Hughes, Robert M, DO Noble, Vicki E, MD Faryar, John Junior MD MPH Cira Mack MD Lareau, Aaron D, MD Abdominal pain, epigastric (Primary Dx); Nausea; Hypokalemia Discharge Disposition: Home12/05/2024Travelfrom Last 3 Months Social History Tobacco UseTypesPacks/DayYears UsedDateSmoking Tobacco: Never Assessed CommentsUnknownSex and Gender InformationValueDate RecordedSex Assigned at Not on fileLegal ZhxZyxggk48/26/2022 6:57 PM ESTGender IdentityNot on fileSexual OrientationNot on file Last Filed Vital Signs Vital SignReadingTime TakenCommentsBlood Btoomomz265/9212/09/2024 6:19 AM EDT Bwlhg6758/22/2025 6:19 AM SJAYufltbkcoyz15.7 ??C (98.1 ??F)12/08/2024 11:00 AM EDTRespiratory Nmou185012/09/2024 6:19 AM EDTOxygen Jdnxniuspn565%12/09/2024 6:19 AM EDTInhaled Oxygen Concentration--Pqnzve76.5 kg (140 lb)12/05/2024 1:44 PM EDT Tlbocm132.2 cm (5' 7 )12/05/2024 1:44 PM EDTBody Mass Index21.9312/05/2024 1:44 PM EDT Plan of Treatment Health MaintenanceDue DateLast DoneCommentsHIV Ghjhyfurs1994Lipid Panel 1994Thyroglobulin Test1994Yearly Adult Xnfqembu1994COVID-19 Vaccine (#1)1999Hepatitis C Pbmmyevey31/15/2012Pneumococcal Vaccine: Pediatrics and At-Risk Adult Patients (1 of 2 - PCV)2013Zoster Vaccines (1 of 2), 10/01/2001Cervical Cancer Hszxwbcab30/15/2015 HPV/Ixzufq4401/01/2015Pap Smear2015DTaP/Tdap/Td Vaccines (7 - Td or Tdap) , 06/23/1999, 10/09/1995, Additional history existsInfluenza Vaccine (#1)10/18/2024Hepatitis B McnucounKogaboqnc18/01/1995, 1994, 1994HIB BzomzqndSeknhgqng57/22/1996, 1994, 1994, Additional history existsIPV BnbblkiyLlvdwmuvq66/05/2000, 1994, 1994, Additional history existsMMR AqluibmqMexcmstft05/05/2000, 01/16/1995 Meningococcal CucqufqSswkjsfzo30/19/2011, 10/15/2008HPV VaccinesCompleted 08/19/2011, 03/10/2011, 12/06/2010, Additional history existsHepatitis A VaccinesAged OutNo longer eligible based on patient's age to complete this topic Rotavirus VaccinesAged OutNo longer eligible based on patient's age to complete this topic Procedures Procedure NamePriorityDate/TimeAssociated DiagnosisCommentsCOMPREHENSIVE METABOLIC EOUPASSUR08/21/2025 5:32 AM EDT TZIOOKB5812/08/2024 5:32 AM EDT ECG 12-SLVRKSLL11/20/2025 8:57 AM EDT COMPREHENSIVE METABOLIC CQYVTUQMU34/20/2025 5:12 AM EDT GUUYMYO8812/07/2024 5:12 AM EDT ECG 12-JYSKBBAU34/19/2025 6:42 PM EDT SARS-COV-2 AND INFLUENZA A/B DUJLSZF1712/06/2024 5:22 PM EDT BPIEEKC1412/06/2024 5:19 PM EDT IDRVYQKNSOBKK08/19/2025 5:19 PM EDT COMPREHENSIVE METABOLIC HSAPMILOG37/19/2025 5:19 PM EDT DRUG SCREEN,DZCQXBBQI76/19/2025 8:[address] ABDOMEN PELVIS W IV IHZRLUXTBYWK35/18/2025 5:22 PM EDT US RIGHT UPPER QLLIUUFCURMM29/18/2025 4:42 PM EDT POCT , VPWPSSTYR06/18/2025 3:58 PM EDT URINALYSIS MICROSCOPIC WITH REFLEX HPALMKYZEUU39/18/2025 3:52 PM EDT EXTRA URINE PURDY QWYWHQFO96/18/2025 3:52 PM EDTURINALYSIS WITH REFLEX MICROSCOPIC AND YQQYVFKBGEO67/18/2025 3:52 PM EDT URINALYSIS WITH REFLEX MICROSCOPIC AND XIFCDBIIMKS60/18/2025 3:52 PM EDT MAGNESIUMAdd-On12/05/2024 1:58 PM EDT DEWQXYVACX63/18/2025 1:58 PM EDT COMPREHENSIVE METABOLIC EJCWPTMDK30/18/2025 1:58 PM EDT CBC WITH AUTO GKLGLLHXHKJIMPXX13/18/2025 1:58 PM EDT from Last 3 Months Results * CBC (12/08/2024 5:32 AM EDT) Only the most recent of3 resultswithin the time period is included. ComponentValueRef RangeTest MethodAnalysis TimePerformed AtPathologist Signature WBC5.84.4 - 11.3 x10*3/uL LAB HEMATOLOGY METHOD 12/08/2024 6[facility] LABnRBC0.00.0 - 0.0 /100 WBCs LAB HEMATOLOGY METHOD 12/08/2024 6:43 [facility] LABRBC4.574.00 - 5.20 x10*6/uL LAB HEMATOLOGY METHOD 12/08/2024 6:43 [facility] PKTVltujpxmud73.512.0 - 16.0 g/dL LAB HEMATOLOGY METHOD 12/08/2024 6:43 [facility] DAATnxakfxyoi92.536.0 - 46.0 % LAB HEMATOLOGY METHOD 12/08/2024 6:43 [facility] RNXQMK6555 - 100 fL LAB HEMATOLOGY METHOD 12/08/2024 6:43 [facility] RRDLUD43.426.0 - 34.0 pg LAB HEMATOLOGY METHOD 12/08/2024 6:43 AM [facility] MWIFCVH53.232.0 - 36.0 g/dL LAB HEMATOLOGY METHOD 12/08/2024 6:43 AM [facility] RVHVKQ71.911.5 - 14.5 % LAB HEMATOLOGY METHOD 12/08/2024 6:43 AM [facility] FLBUwfimdyhp465868 - 450 x10*3/uL LAB HEMATOLOGY METHOD 12/08/2024 6:43 AM [facility] LABSpecimen (Source)Anatomical Location / Laterality Collection Method / VolumeCollection TimeReceived TimeBloodVenous blood specimen / UnknownVenipuncture / Rcukaxt7112/08/2024 5:32 AM EDT12/08/2024 6:27 AM EDT Narrative Authorizing ProviderResult TypeResult StatusAdam Gina PUENTES BLOOD ORDERABLESFinal ResultPerforming OrganizationAddressCity/State/ZIP CodePhone Number [place] [phone] * (ABNORMAL) Comprehensive metabolic panel (12/08/2024 5:32 AM EDT) Only the most recent of4 resultswithin the time period is included. ComponentValueRef RangeTest MethodAnalysis TimePerformed AtPathologist Signature Twodcao7830 - 99 mg/dL LAB CHEMISTRY METHOD 12/08/2024 7:00 AM [facility] HGHFfvges571161 - 145 mmol/L LAB CHEMISTRY METHOD 12/08/2024 7:00 AM [facility] LABPotassium3.0(L)3.5 - 5.3 mmol/L LAB CHEMISTRY METHOD 12/08/2024 7:00 AM [facility] UFPVuwquqpw37925 - 107 mmol/L LAB CHEMISTRY METHOD 12/08/2024 7:00 AM [facility] PFBAtjyltzgfhf3964 - 32 mmol/L LAB CHEMISTRY METHOD 12/08/2024 7:00 AM [facility] LABAnion Zjj8865 - 20 mmol/L LAB CHEMISTRY METHOD 12/08/2024 7:00 AM [facility] LABUrea Bxjoxfmf109 - 23 mg/dL LAB CHEMISTRY METHOD 12/08/2024 7:00 AM [facility] LABCreatinine0.600.50 - 1.05 mg/dL LAB CHEMISTRY METHOD 12/08/2024 7:00 AM [facility] LABeGFR>90>60 mL/min/1.73m*2 LAB CHEMISTRY METHOD 12/08/2024 7:00 AM [facility] LABComment: Calculations of estimated GFR are performed using the 2020 CKD-EPI Study Refit equation without therace variable for the IDMS-Traceable creatinine methods. https://jasn.asnjournals.org/content//ASN.9918127741 Calcium8.88.6 - 10.6 mg/dL LAB CHEMISTRY METHOD 12/08/2024 7:00 AM [facility] LABAlbumin4.33.4 - 5.0 g/dL LAB CHEMISTRY METHOD 12/08/2024 7:00 AM [facility] LABAlkaline Lrjeigcqemq8749 - 110 U/L LAB CHEMISTRY METHOD 12/08/2024 7:00 AM [facility] LABTotal Protein6.76.4 - 8.2 g/dL LAB CHEMISTRY METHOD 12/08/2024 7:00 AM [facility] RFPGEA777 - 39 U/L LAB CHEMISTRY METHOD 12/08/2024 7:00 AM [facility] LABBilirubin, Total0.90.0 - 1.2 mg/dL LAB CHEMISTRY METHOD 12/08/2024 7:00 AM [facility] IAPHVF153 - 45 U/L LAB CHEMISTRY METHOD 12/08/2024 7:00 AM [facility] LABComment:Patients treated with Sulfasalazine may generate falsely decreased results for ALT.Specimen (Source)Anatomical Location / LateralityCollection Method / VolumeCollection TimeReceived TimeBloodVenous blood specimen / UnknownVenipuncture / Feisdjy5912/08/2024 5:32 AM EDT12/08/2024 6:27 AM EDT Narrative Authorizing ProviderResult TypeResult StatusAdam Gina COHERBERT BLOOD ORDERABLESFinal ResultPerforming OrganizationAddressCity/State/ZIP CodePhone Number [facility] [address] [facility] [address] [place] [phone] * ECG 12 lead (12/07/2024 8:57 AM EDT) Only the most recent of2 resultswithin the time period is included. ComponentValueRef RangeTest MethodAnalysis TimePerformed AtPathologist Signature Ventricular Bvbk35JPWVDDYBmpibh Mgnk65YKUTDRDYT Lnnpgecp259wkASKRMHR Modpiwzm88 msMUSEQT Lltjgrkj714lqFTJHUVW Calculation(Bazett)464msMUSEP Lhux19htjytjmPVNVW Raww91omfhshoQVNQD Jgni12dlvslrmYMZQOKB Lwfbh70xklyuYPZCO Kiqkc206ibBYQGB Onset 143msMUSEP Ettyou911lkWCLDA Aypjos039lrETAXGIQ Acrysduaev754mtEKWMQrjytwrb (Source)Anatomical Location / LateralityCollection Method / VolumeCollection TimeReceived Time12/07/2024 8:53 AM EDT1 1:35 PM EDT Narrative MUSE - 12/25/2024 1:35 PM EDT Sinus rhythm with marked sinus arrhythmia Rightward axis Borderline ECG When compared with ECG of 06-DEC-2024 18:30, No significant change was found Confirmed by Prabhu Mitchell ([id number]) on 12/25/2024 1:35:41 PM Procedure Note Prabhu Mitchell MD - 12/25/2024 Sinus rhythm with marked sinus arrhythmia Rightward axis Borderline ECG When compared with ECG of 06-DEC-2024 18:30, No significant change was found Confirmed by Prabhu Mitchell ([id number]) on 12/25/2024 1:35:41 PM Authorizing ProviderResult TypeResult StatusRobert Gonzalez DOEC ORDERABLES Final ResultPerforming OrganizationAddressCity/State/ZIP CodePhone Number MUSE * Sars-CoV-2 and Influenza A/B PCR (12/06/2024 5:22 PM EDT)ComponentValueRef RangeTest MethodAnalysis TimePerformed AtPathologist SignatureFlu A ResultNot DetectedNot Detected X_PERT XPRESS SARS-COV2_CEPHEID_EUA 12/06/2024 6:40 PM EDTCON[facility]AU[facility] LABFlu B ResultNot DetectedNot Detected X_PERT XPRESS SARS-COV2_CEPHEID_EUA 12/06/2024 6:40 PM EDTCON[facility] LABCoronavirus 2019, PCRNot DetectedNot Detected X_PERT XPRESS SARS-COV2_CEPHEID_EUA 12/06/2024 6:40 PM [facility] LABSpecimen (Source)Anatomical Location / Laterality Collection Method / VolumeCollection TimeReceived TimeSwabNasopharyngeal swab / Iawzteq6212/06/2024 5:22 PM EDT12/06/2024 5:43 PM EDT Narrative [facility] - 12/06/2024 6:40 PM EDT This assay is an FDA-cleared, in vitro diagnostic nucleic acid amplification test for the qualitative detection and differentiation of SARS CoV-2/ Influenza A/B from nasopharyngeal specimens collected from individuals with signs and symptoms of respiratory tract infections, and has been validated for use at [facility]. Negative results do not preclude COVID-19/ Influenza A/B infections and should not be used as the sole basis for diagnosis, treatment, or other management decisions. Testing for SARS CoV-2 is recommended only for patients who meet current clinical and/or epidemiological criteria defined by federal, state, or local public health directives. Authorizing ProviderResult TypeResult StatusHoracio PUENTES MOLECULAR DIAGNOSTICS ORDERABLESFinal ResultPerforming OrganizationAddressCity/State/ZIP CodePhone Number [place] [phone] * Magnesium (12/06/2024 5:19 PM EDT) Only the most recent of2 resultswithin the time period is included. ComponentValueRef RangeTest MethodAnalysis TimePerformed AtPathologist Signature Magnesium2.131.60 - 2.40 mg/dL LAB CHEMISTRY METHOD 12/06/2024 6:13 PM [facility] LABSpecimen (Source)Anatomical Location / Laterality Collection Method / VolumeCollection TimeReceived TimeBloodVenous blood specimen / UnknownVenipuncture / Otjsblc8712/06/2024 5:19 PM EDT12/06/2024 5:45 PM EDT Narrative Authorizing ProviderResult TypeResult StatusHoracio Fuentes MDLAB BLOOD ORDERABLESFinal ResultPerforming OrganizationAddressty/State/ZIP CodePhone Number [address] [phone] * (ABNORMAL) Drug Screen, Urine (12/06/2024 8:03 AM EDT)ComponentValueRef Range Test MethodAnalysis TimePerformed AtPathologist SignatureAmphetamine Screen, UrinePresumptive NegativePresumptive Negative LAB CHEMISTRY METHOD 12/06/2024 9:35 AM [facility] LABComment: CUTOFF LEVEL: 500 NG/ML Cross-reactivity has been reported with high concentrations of the following drugs: buproprion, chloroquine, chlorpromazine, ephedrine, mephentermine, fenfluramine, phentermine, phenylpropanolamine, pseudoephedrine, and propranolol. Barbiturate Screen, UrinePresumptive Positive(A)Presumptive Negative LAB CHEMISTRY METHOD 12/06/2024 9:35 AM [facility] LABComment:CUTOFF LEVEL: 200 NG/MLBenzodiazepines Screen, UrinePresumptive NegativePresumptive Negative LAB CHEMISTRY METHOD 12/06/2024 9:35 AM [facility] LABComment:CUTOFF LEVEL: 200 NG/MLCannabinoid Screen, UrinePresumptive NegativePresumptive Negative LAB CHEMISTRY METHOD 12/06/2024 9:35 AM [facility] LABComment:CUTOFF LEVEL: 50 NG/MLCocaine Metabolite Screen, UrinePresumptive NegativePresumptive Negative LAB CHEMISTRY METHOD 12/06/2024 9:35 AM [facility] LABComment:CUTOFF LEVEL: 150 NG/MLFentanyl Screen, UrinePresumptive NegativePresumptive Negative LAB CHEMISTRY METHOD 12/06/2024 9:35 AM [facility] LABComment:CUTOFF LEVEL: 5 NG/MLOpiate Screen, Urine Presumptive Positive(A)Presumptive Negative LAB CHEMISTRY METHOD 12/06/2024 9:35 AM [facility] LABComment: CUTOFF LEVEL: 300 NG/ML The opiate screen does not detect fentanyl, meperidine, or tramadol. Oxycodone is not consistently detected (refer to Oxycodone Screen, Urine result). Oxycodone Screen, UrinePresumptive NegativePresumptive Negative LAB CHEMISTRY METHOD 12/06/2024 9:35 AM [facility] LABComment: CUTOFF LEVEL: 100 NG/ML This test will accurately detect both oxycodone and oxymorphone. PCP Screen, UrinePresumptive NegativePresumptive Negative LAB CHEMISTRY METHOD 12/06/2024 9:35 AM [facility] LABComment: CUTOFF LEVEL: ??25 NG/ML Cross-reactivity has been reported with dextromethorphan. Methadone Screen, UrinePresumptive NegativePresumptive Negative LAB CHEMISTRY METHOD 12/06/2024 9:35 AM [facility] LABComment: CUTOFF LEVEL: 150 NG/ML The metabolite Z-akidq-sixixatxtntpsu (LAAM) is not detected by this method in concentrations that would be found in the urine of patients on LAAM therapy. Specimen (Source)Anatomical Location / LateralityCollection Method / Volume Collection TimeReceived TimeUrineUrine specimen / Vamoyuj7312/06/2024 8:03 AM EDT 12/06/2024 8:59 AM EDT Narrative [facility] - 12/06/2024 9:35 AM EDT Drug screen results are presumptive and should not be used to assess compliance with prescribed medication. Contact the performing [facility] laboratory to add-on definitive confirmatory testing if clinically indicated. Toxicology screening results are reported qualitatively. The concentration must ??be greater than or equal to the cutoff [...] be directed to the laboratory medical directors. Authorizing ProviderResult TypeResult StatusReji Hidalgo MDATCH[facility] URINE ORDERABLESFinal ResultPerforming OrganizationAddressCity/State/ZIP CodePhone Number [facility] [address] [place] [phone] * CT abdomen pelvis w IV contrast (12/05/2024 5:22 PM EDT)Anatomical Region LateralityModalityAbdominal, BodyComputed TomographySpecimen (Source) Anatomical Location / LateralityCollection Method / VolumeCollection Time Received Time12/05/2024 5:38 PM EDT12/05/2024 7:09 PM EDT Impressions 12/05/2024 7:07 PM EDT 1. No acute abnormality within the abdomen or pelvis. 2. Postsurgical changes of cholecystectomy with small amount of pneumobilia. 3. Postsurgical changes of prior small bowel resection without evidence of obstruction. 4. Additional chronic/incidental findings detailed as above. ?? I personally reviewed the images/study and I agree with the findings as stated by resident physician Christiano Espana MD. This study was interpreted at [facility], [place], [place]. ?? MACRO: None ?? Signed by: Fransisco Mora 12/05/2024 7:07 PM Dictation workstation: ?? [id number] Narrative 12/05/2024 7:07 PM EDT Interpreted By: Fransisco Mora and Jovi Alvarado STUDY: CT ABDOMEN PELVIS W IV CONTRAST; ??12/05/2024 5:22 pm ?? INDICATION: Signs/Symptoms:Abdominal pain. ? COMPARISON: Right upper quadrant ultrasound 12/05/2024 ?? ACCESSION NUMBER(S): [id number] ?? ORDERING CLINICIAN: FABRIZIO PATEL ?? TECHNIQUE: CT of the abdomen and pelvis was performed. ??Standard contiguous axial images were obtained at 3 mm slice thickness through the abdomen and pelvis. Coronal and sagittal reconstructions at 3 mm slice thickness were performed. ??75 ML of Omnipaque 350 was administered intravenously without immediate complication. ?? FINDINGS: LOWER CHEST: No significant abnormality. ?? ABDOMEN: ?? LIVER: Normal-size. Few subcentimeter hypodensities within the left hepatic lobe are too small to characterize. No other focal lesion. ?? BILE DUCTS: No intrahepatic or extrahepatic biliary dilation. Intrahepatic and extrahepatic pneumobilia. ?? GALLBLADDER: Surgically absent. ?? PANCREAS: No peripancreatic inflammatory stranding. No pancreatic ductal dilation. ?? SPLEEN: Normal size. No focal lesion. ?? ADRENAL GLANDS: No significant abnormality. ?? KIDNEYS AND URETERS: Bilateral kidneys enhance symmetrically. ??No hydronephrosis or nephroureterolithiasis. ?? PELVIS: ?? BLADDER: Bladder is decompressed limiting for evaluation. ?? REPRODUCTIVE ORGANS: Uterus is present. Suspected small nabothian cyst measuring 0.4 cm (Series 201, Image 130). ?? BOWEL: Stomach is unremarkable. There are postsurgical changes of small-bowel resection of the right upper quadrant without evidence of obstruction or adjacent fluid collection to suggest anastomotic leak. The small and large bowel are otherwise normal caliber. Appendix not definitely visualized however no pericecal fat stranding. ?? VESSELS: No significant abnormality. ?? PERITONEUM/RETROPERITONEUM/LYMPH NODES: No ascites or free air, no fluid collection. ??No abdominopelvic lymphadenopathy is present. ?? BONES AND ABDOMINAL WALL: No suspicious osseous lesions are identified. ??Rectus sheath diastasis with small fat containing paraumbilical hernia. ?? Procedure Note Fransisco Mora MD - 12/05/2024 Interpreted By: Fransisco Mora and Liu Scott STUDY: CT ABDOMEN PELVIS W IV CONTRAST; 12/05/2024 5:22 pm INDICATION: Signs/Symptoms:Abdominal pain. COMPARISON: Right upper quadrant ultrasound 12/05/2024 ACCESSION NUMBER(S): [id number] ORDERING CLINICIAN: FABRIZIO PATEL TECHNIQUE: CT of [...] Espana MD. This study was interpreted at [place], [place]. MACRO: None Signed by: Fransisco Mora 12/05/2024 7:07 PM Dictation workstation: [id number] Authorizing ProviderResult TypeResult StatusFabrizio Patel DOI CT PROCEDURES Final Result * US right upper quadrant (12/05/2024 4:42 PM EDT)Anatomical RegionLaterality ModalityUpper ExtremitiesUltrasoundSpecimen (Source)Anatomical Location / LateralityCollection Method / VolumeCollection TimeReceived Time12/05/2024 5:12 PM EDT12/05/2024 5:30 PM EDT Impressions 12/05/2024 5:29 PM EDT 1. Status post cholecystectomy. 2. Nonobstructing right-sided nephrolithiasis. No hydronephrosis. ? I personally reviewed the images/study and I agree with the findings as stated by Brennan Paniagua MD, PGY-3 this study was interpreted at [facility], [place], [place]. ?? MACRO: None ? Signed by: Osbaldo Ta 12/05/2024 5:29 PM Dictation workstation: ?? [id number] Narrative 12/05/2024 5:29 PM EDT Interpreted By: Osbaldo Ta, and Arcelia Amin STUDY: US RIGHT UPPER QUADRANT; ??12/05/2024 4:42 pm ?? INDICATION: Signs/Symptoms:RUQ pain. ? COMPARISON: None. ?? ACCESSION NUMBER(S): [id number] ?? ORDERING CLINICIAN: FABRIZIO PATEL ?? TECHNIQUE: Multiple images of the right upper quadrant were obtained. ?? FINDINGS: LIVER: The liver measures 14.3 cm and is grossly unremarkable and free of any focal lesions. ? GALLBLADDER: Status post cholecystectomy without evidence of fluid collection of the gallbladder fossa. ? BILE DUCTS: No evidence of intra or extrahepatic biliary dilatation is identified; the common bile duct measures 0.2 cm. ?? PANCREAS: The visualized pancreas is unremarkable in appearance. ?? RIGHT KIDNEY: The right kidney measures 9.7 cm in length. The renal cortical echogenicity and thickness are within normal limit. There is a 4 mm area of increased echogenicity at the interpolar region of the right kidney, as seen on image 59 with twinkling artifact suggesting nephrolithiasis. ?? Procedure Note Osbaldo Ta MD - 12/05/2024 Interpreted By: Osbaldo Ta, and Arcelia Amin STUDY: US RIGHT UPPER QUADRANT; 12/05/2024 4:42 pm INDICATION: Signs/Symptoms:RUQ pain. COMPARISON: None. ACCESSION NUMBER(S): [id number] ORDERING CLINICIAN: FABRIZIO PATEL TECHNIQUE: Multiple images [...] MD, PGY-3 this study was interpreted at [facility], [place], [place]. MACRO: None Signed by: Osbaldo Ta 12/05/2024 5:29 PM Dictation workstation: [id number] Authorizing ProviderResult TypeResult StatusFabrizio Patel DOIMG US PROCEDURES Final Result * POCT , urine (12/05/2024 3:58 PM EDT)ComponentValueRef RangeTest MethodAnalysis TimePerformed AtPathologist SignaturePreg Test, UrNegative NegativeSpecimen (Source)Anatomical Location / LateralityCollection Method / VolumeCollection TimeReceived ZrxzXushd42/18/2025 3:58 PM EDT Narrative Authorizing ProviderResult TypeResult StatusFabrizio Patel DOPOINT OF CARE TEST ENTER/EDIT ORDERABLESFinal Result * Extra Urine Purdy Tube (12/05/2024 3:52 PM EDT)ComponentValueRef RangeTest MethodAnalysis TimePerformed AtPathologist SignatureExtra Tube12/06/2024 8:25 AM [facility] LABSpecimen (Source)Anatomical Location / LateralityCollection Method / VolumeCollection TimeReceived TimeUrineUrine specimen / Unknown 12/05/2024 3:52 PM EDT12/05/2024 4:05 PM EDT Narrative Authorizing ProviderResult TypeResult StatusFabrizio Patel DOLAB URINE ORDERABLES Final ResultPerforming OrganizationAddressCity/State/ZIP CodePhone Number [facility] [address] [place] [address] * (ABNORMAL) Urinalysis Microscopic (12/05/2024 3:52 PM EDT)ComponentValueRef RangeTest MethodAnalysis TimePerformed AtPathologist SignatureWBC, Urine1-51- 5, NONE /HPF12/05/2024 4:15 PM [facility] LABRBC, Urine>20(A)NONE, 1-2, 3-5 /HPF 12/05/2024 4:15 PM [facility] LABSquamous Epithelial Cells, Urine1-9 (SPARSE) Reference range not established. /HPF12/05/2024 4:15 PM EDTCONEMAUGH [facility] LABSpecimen (Source)Anatomical Location / LateralityCollection Method / VolumeCollection TimeReceived TimeUrineUrine specimen / Qaumtab3512/05/2024 3:52 PM EDT12/05/2024 4:05 PM EDT Narrative Authorizing ProviderResult TypeResult StatusFabrizio Patel DOL URINE ORDERABLES Final ResultPerforming OrganizationAddressCity/State/ZIP CodePhone Number [facility] [address] [address] [place] [phone] * (ABNORMAL) Urinalysis with Reflex Culture (12/05/2024 3:52 PM EDT)Component ValueRef RangeTest MethodAnalysis TimePerformed AtPathologist SignatureColor, UrineYellowLight-Yellow, Yellow, Dark-Sgxouq6912/05/2024 4:15 PM [facility] Appearance, RcgaqAdlmrPoqxo08/18/2025 4:15 PM [facility] LABSpecific [place], Urine1.0341.005 - 1.1981712/05/2024 4:15 PM [facility] LABpH, Urine5.55.0, 5.5, 6.0, 6.5, 7.0, 7.5, 8. 4:15 PM [facility] LABProtein, Urine30 (1+)(A) NEGATIVE, 10 (TRACE), 20 (TRACE) mg/dL12/05/2024 4:15 PM [facility] LABGlucose, UrineNormalNormal mg/dL12/05/2024 4:15 PM [facility] LABBlood, Urine1.0 (3+)(A) NEGATIVE mg/dL12/05/2024 4:15 PM [facility] LABKetones, Zmslm273 (3+)(A)NEGATIVE mg/dL12/05/2024 4:15 PM [facility] LABBilirubin, UrineNEGATIVENEGATIVE mg/dL 12/05/2024 4:15 PM [facility] LABUrobilinogen, Urine2 (1+)(A)Normal mg/dL 12/05/2024 4:15 PM [facility] LABComment: Due to a manufacturing issue, low positive urobilinogen results may be falsely positive. Correlate with urine bilirubin and additional clinical/laboratory findings to assess the risk of hemolytic anemia or liver disease. If clinically indicated, repeat testing with an alternate method is available by contacting the laboratory within 24 hours. Some pigments and medications may cause a false positive urobilinogen. Nitrite, MagfjQCWOKVGYTNILILBZ60/18/2025 4:15 PM [facility] LABLeukocyte Esterase, LahtxICUWQWDMEUFFBCLE67/18/2025 4:15 PM [facility] LABSpecimen (Source)Anatomical Location / LateralityCollection Method / VolumeCollection TimeReceived TimeUrine Urine specimen / Ziqlbbr6412/05/2024 3:52 PM EDT12/05/2024 4:05 PM EDT Narrative Authorizing ProviderResult TypeResult StatusVintrish Patel DOLAB URINE ORDERABLES Final ResultPerforming OrganizationAddressCity/State/ZIP CodePhone Number [facility] [address] [address] [place] [phone] * CBC and Auto Differential (12/05/2024 1:58 PM EDT)ComponentValueRef RangeTest MethodAnalysis TimePerformed AtPathologist SignatureWBC8.24.4 - 11.3 x10*3/uL LAB HEMATOLOGY METHOD 12/05/2024 3:07 PM [facility] LABnRBC0.00.0 - 0.0 /100 WBCs LAB HEMATOLOGY METHOD 12/05/2024 3:07 PM [facility] LABRBC4.844.00 - 5.20 x10*6/uL LAB HEMATOLOGY METHOD 12/05/2024 3:07 PM [facility] AKHUjvifyfjpw69.612.0 - 16.0 g/dL LAB HEMATOLOGY METHOD 12/05/2024 3:07 PM [facility] KAVAmxjxqduei88.136.0 - 46.0 % LAB HEMATOLOGY METHOD 12/05/2024 3:07 PM [facility] DTOXML3771 - 100 fL LAB HEMATOLOGY METHOD 12/05/2024 3:07 PM [facility] CYZGJL76.126.0 - 34.0 pg LAB HEMATOLOGY METHOD 12/05/2024 3:07 PM [facility] DQHGPDP33.832.0 - 36.0 g/dL LAB HEMATOLOGY METHOD 12/05/2024 3:07 PM [facility] AOHKWE27.911.5 - 14.5 % LAB HEMATOLOGY METHOD 12/05/2024 3:07 PM [facility] PGSCnnvcaefg406858 - 450 x10*3/uL LAB HEMATOLOGY METHOD 12/05/2024 3:07 PM [facility] LABNeutrophils %72.340.0 - 80.0 % LAB HEMATOLOGY METHOD 12/05/2024 3:07 PM [facility] LABImmature Granulocytes %, Automated0.20.0 - 0.9 % LAB HEMATOLOGY METHOD 12/05/2024 3:07 PM EDCATAW[facility] LABComment:Immature Granulocyte Count (IG) includes promyelocytes, myelocytes and metamyelocytes but does not include bands. Percent differential counts (%) should be interpreted in the context of the absolute c ell counts (cells/UL).Lymphocytes %18.313.0 - 44.0 % LAB HEMATOLOGY METHOD 12/05/2024 3:07 PM [facility] LABMonocytes %8.42.0 - 10.0 % LAB HEMATOLOGY METHOD 12/05/2024 3:07 PM [facility] LABEosinophils %0.20.0 - 6.0 % LAB HEMATOLOGY METHOD 12/05/2024 3:07 PM [facility] LABBasophils %0.60.0 - 2.0 % LAB HEMATOLOGY METHOD 12/05/2024 3:07 PM [facility] LABNeutrophils Absolute5.931.20 - 7.70 x10*3/uL LAB HEMATOLOGY METHOD 12/05/2024 3:07 PM [facility] LABComment:Percent differential counts (%) should be interpreted in the context of the absolute cell counts (cells/uL).Immature Granulocytes Absolute, Automated0.020.00 - 0.70 x10*3/uL LAB HEMATOLOGY METHOD 12/05/2024 3:07 PM [facility] LABLymphocytes Absolute1.501.20 - 4.80 x10*3/uL LAB HEMATOLOGY METHOD 12/05/2024 3:07 PM [facility] LABMonocytes Absolute0.690.10 - 1.00 x10*3/uL LAB HEMATOLOGY METHOD 12/05/2024 3:07 PM [facility] LABEosinophils Absolute0.020.00 - 0.70 x10*3/uL LAB HEMATOLOGY METHOD 12/05/2024 3:07 PM [facility] LABBasophils Absolute0.050.00 - 0.10 x10*3/uL LAB HEMATOLOGY METHOD 12/05/2024 3:07 PM [facility] LABSpecimen (Source)Anatomical Location / Laterality Collection Method / VolumeCollection TimeReceived TimeBloodVenous blood specimen / UnknownVenipuncture / Gmcuvry9212/05/2024 1:58 PM EDT12/05/2024 3:00 PM EDT Narrative Authorizing ProviderResult TypeResult StatusTramaine Fuentes [facility] BLOOD ORDERABLESFinal ResultPerforming OrganizationAddressCity/State/ZIP CodePhone Number [facility] [address] [place] [address] * Lipase (12/05/2024 1:58 PM EDT)ComponentValueRef RangeTest MethodAnalysis Time Performed AtPathologist AgqwqmyqvMhwwdy380 - 82 U/L LAB CHEMISTRY METHOD 12/05/2024 3:35 PM ED[facility] LABSpecimen (Source)Anatomical Location / Laterality Collection Method / VolumeCollection TimeReceived TimeBloodVenous blood specimen / UnknownVenipuncture / Vgrpnjn6412/05/2024 1:58 PM EDT12/05/2024 2:59 PM EDT Narrative [facility] - 12/05/2024 3:35 PM EDT Venipuncture immediately after or during the administration of Metamizole may lead to falsely low results. Testing should be performed immediately prior to Metamizole dosing. Authorizing ProviderResult TypeResult StatusTramaine Fuentes [facility] BLOOD ORDERABLESFinal ResultPerforming OrganizationAddressCity/State/ZIP CodePhone Number [facility] [address] [place] [address] from Last 3 Months Insurance MemberSubscriberPlan / Payer (Effective 2024-Present)Name:Negro Stacy Relation to Subscriber:SelfName:Negro Stacy Payer ID:[id number] (NAIC) Type:Not on file Address: [address] MemberSubscriberPlan / Payer (Effective 2024-Present)Name:TorstenquentinNegro Relation to Subscriber:SelfName:Negro Stacy Payer ID:[id number] (NAIC) Type:Not on file Address: [address] Care Teams Team MemberRelationshipSpecialtyStart DateEnd Kami Olvera MD [address] [place] [phone] PCP - General03/20/99
[2025-01-13 20:40] LABS: Alanine Aminotransferase 20 U/L (14-59); Albumin Globulin Ratio 1.2; Albumin Level 4.8 g/dL (3.4-5.0); Alkaline Phosphatase 94 U/L (46-116); Anion Gap 15.2; Aspartate Amino Transferase 14 U/L (15-37); Blood Urea Nitrogen 11.0 mg/dL (7.0-18.0); Calcium 9.5 mg/dL (8.5-10.1); Carbon Dioxide 26.2 mmol/L (21.0-32.0); Chloride 103 mmol/L (98-107); Estimated GFR (African America >60 (>=60 mL/min/1.73m^2); Estimated GFR (Non-African Ame >60 (>=60 mL/min/1.73m^2); Globulin 3.9 g/dL; Glucose 96 mg/dL (74-106); Lipase 38.0 U/L (16.0-77.0); Potassium 3.4 mmol/L (3.5-5.1); Sodium 141 mmol/L (136-145); Total Protein 8.7 g/dL (6.4-8.2)
--- NOTE | 2025-01-13 23:26 | ED.GENADUL1 ---
HPI HPI - General Adult General Chief complaint: Abdominal Pain Stated complaint: ABDOMINAL PAIN Time Seen by Provider: 01/13/25 19:25 Source: patient Mode of arrival: walk-in Limitations: no limitations History of Present Illness HPI narrative: Patient is a 30-year-old female presenting to the emergency department acute on chronic diarrhea. Patient states that she has had a longstanding history of chronic diarrhea, acutely worsened over the last couple weeks. She states she goes about 12 times every day. The diarrhea is nonbloody. She denies any recent antibiotic use, recent hospitalizations, recent travel outside the country, or recent camping. She does have a history of Hodgkin's lymphoma, but is currently in remission and not undergoing chemotherapy. She states she has mild abdominal cramping, but is still tolerating diet, no vomiting. No dysuria or hematuria. No fevers or chills. She has been taking Imodium and Zofran at home for symptoms. Related Data Home Medications ?Medication ?Instructions ?Recorded ?Confirmed ciprofloxacin HCl 500 mg tablet 500 mg PO Q12H 11/16/24 11/19/24 dicyclomine 10 mg capsule 20 mg PO .4 times a day PRN 11/16/24 11/19/24 abdominal pain hydromorphone 2 mg tablet 2 mg PO Q8H PRN pain 11/16/24 11/18/24 loperamide 2 mg tablet 2 mg PO Q4H PRN loose stool 11/16/24 11/19/24 (Anti-Diarrheal (loperamide)) ondansetron 4 mg disintegrating 4 mg PO Q8H PRN nausea and vomiting 11/16/24 11/19/24 tablet pantoprazole 40 mg tablet,delayed 40 mg PO DAILY 11/16/24 11/19/24 release ubrogepant 100 mg tablet (Ubrelvy) 100 mg PO .once a day PRN migraine 11/16/24 11/19/24 headache bupropion HCl 100 mg tablet 100 mg PO BID 11/19/24 11/19/24 galcanezumab-gnlm 120 mg/mL 120 mg subcut Q30D 11/19/24 11/19/24 subcutaneous syringe (Emgality) oxycodone 10 mg tablet 10 mg PO Q8H PRN pain 11/19/24 11/19/24 venlafaxine 225 mg tablet,extended 225 mg PO DAILY 11/19/24 11/19/24 release 24 hr zolpidem 10 mg tablet 10 mg PO .QHS PRN sleep 11/19/24 11/19/24 Previous Rx's ?Medication ?Instructions ?Recorded polyethylene glycol 3350 17 gram 17 g PO QD #30 ea 11/20/24 oral powder packet Allergies Allergy/AdvReac Type Severity Reaction Status Date / Time diphenhydramine (From Allergy Severe Rash Verified 01/13/25 19:24 Benadryl) Opioid HPI Opioid Management Most Recent Opioid Data: Last Pain Scale 8 Today, 19:24 Last ORT Total Score 1 11/19/24, 00:10 Last ORT Risk Category Low Risk 11/19/24, 00:10 Ur Phencyclidine Scrn, (NEGATIVE) Negative 11/18/24, 19:40 Review of Systems ROS Status of ROS 10 or more systems reviewed and unremarkable except as noted in history and below [facility] Medical History (Updated 01/13/25 @ 20:53 by Dashawn Marcos DO) Opioid-induced constipation ?K59.03 - Drug induced constipation (ICD-10) ?T40.2X5A - Adverse effect of other opioids, initial encounter (ICD-10) Nausea, vomiting, and diarrhea ?R11.2 - Nausea with vomiting, unspecified (ICD-10) ?R19.7 - Diarrhea, unspecified (ICD-10) Abdominal pain ?R10.9 - Unspecified abdominal pain (ICD-10) Depression ?F32.A - Depression, unspecified (ICD-10) Hodgkin lymphoma ?C81.90 - Hodgkin lymphoma, unspecified, unspecified site (ICD-10) Surgical History (Updated 11/19/24 @ 01:23 by Linnea Frost) History of removal of Port-a-Cath ?Z98.890 - Other specified postprocedural states (ICD-10) History of bowel resection ?Z90.49 - Acquired absence of other specified parts of digestive tract (ICD-10) Hx of cholecystectomy ?Z90.49 - Acquired absence of other specified parts of digestive tract (ICD-10) Family History (Updated 11/19/24 @ 00:32 by Linnea Frost) Grandfather Family history of cancer Family history of diabetes mellitus Mother Family history of hypertension Family history of stroke Grandmother Family history of myocardial infarction Social History (Updated 11/19/24 @ 00:34 by Linnea Frost) Within the past year, how often did you have a drink containing alcohol: never Score interpretation: A score less than 3 is consistent with normal alcohol consumption. Smoking status: Never smoker Non-prescribed substance use: denies use Previous occupational history: work for the [employer] Highest level of school completed/degree received: Bachelor's degree Are you now , , , , never or living with a partner: never In a typical week, how many times do you talk on the telephone with family, friends, or neighbors: 3 or more times per week How often do you get together with friends or relatives: 3 or more times per week How often do you attend religion or yazidi services: 4 or more times per year Little interest or pleasure in doing things: not at all Feeling down, depressed, or hopeless: not at all Feel stressed/tense/nervous/anxious/difficulty sleeping: rather much Life stressors: recent of family or friend Do you think of yourself as: straight/heterosexual Gender Identity: female Exam Narrative Exam Narrative: CONSTITUTIONAL: Well-appearing, answering questions and following commands appropriately SKIN: Was warm and dry. EYES: Sclerae white. EARS, NOSE, THROAT: Moist oral mucosa. RESPIRATORY: Clear to auscultation bilaterally, no wheezes, crackles, or stridor, no use of accessory muscles CARDIOVASCULAR: Normal rate and regular rhythm. There is no S3, S4, murmur, rub. GASTROINTESTINAL: Abdomen is soft, nontender, and nondistended. No rebound tenderness or guarding. MUSCULOSKELETAL: No peripheral edema. NEUROLOGIC: Patient is awake and alert. Facies were symmetrical. Constitutional Vital Signs, click to edit/add: Last Vital Signs Temp 98.5 F 01/13/25 19:24 Pulse 99 H 01/13/25 19:24 Resp 18 01/13/25 19:24 BP 149/94 H 01/13/25 19:24 Pulse Ox 99 01/13/25 19:24 O2 Del Method Room Air 01/13/25 19:24 Course Vital Signs Vital signs: Vital Signs Temperature 98.5 F 01/13/25 19:24 Pulse Rate 99 H 01/13/25 19:24 Respiratory Rate 18 01/13/25 19:24 Blood Pressure 149/94 H 01/13/25 19:24 Pulse Oximetry 99 01/13/25 19:24 Oxygen Delivery Method Room Air 01/13/25 19:24 Temperature 98.5 F 01/13/25 19:24 Pulse Rate 99 H 01/13/25 19:24 Respiratory Rate 18 01/13/25 19:24 Blood Pressure 149/94 H 01/13/25 19:24 Pulse Oximetry 99 01/13/25 19:24 Oxygen Delivery Method Room Air 01/13/25 19:24 Medical Decision Making MDM Narrative Medical decision making narrative: Patient is a 30-year-old female presenting to the emergency department for evaluation of diarrhea x 2 weeks. Vital signs arrival are within normal limits. She is afebrile and hemodynamically stable. Differential diagnosis includes acute diarrhea from etiologies such as malabsorption issues, viral gastroenteritis, or other etiologies. No risk factors to suggest C. difficile. No recent travel to suggest parasitic infections. Patient's exam is not consistent with surgical etiologies of abdominal pain such as appendicitis, cholecystitis, or perforated viscus. IV was established and laboratory studies were obtained. She was treated with a 2 L bolus normal saline and IV Zofran. Laboratory studies were unremarkable. No significant electrolyte or metabolic derangement. No evidence of acute kidney injury. No anemia, leukocytosis, or thrombocytopenia. No transaminitis or hyperbilirubinemia. test negative. Lipase not elevated On reevaluation, patient states she feels somewhat improved. She does not appear to be significantly dehydrated and is appropriate for outpatient follow-up. She states she has an appoint with a GI specialist in approximately 6 weeks. Return precautions were given including any new or concerning symptoms. Patient understands and agrees to plan. FINAL IMPRESSION: #Acute diarrhea DISPOSITION: Discharged home CONDITION: Good Lab Data Lab results reviewed: Yes I reviewed the patient's lab results Labs: Lab Results 01/13/25 Range/Units 20:05 WBC 7.6 (4.0-11.0) 10^3/uL RBC 5.19 (4.20-5.40) 10^6/uL Hgb 14.6 (12.0-16.0) g/dL Hct 43.4 (36.0-48.0) % MCV 83.6 (81.0-99.0) fL MCH 28.1 (26.7-34.0) pg MCHC 33.6 (29.9-35.2) g/dL RDW 12.0 (11.0-15.0) % Plt Count 338 (150-450) 10^3/uL MPV 9.8 (9.5-13.5) fL Neut % (Auto) 70.1 (43.0-75.0) % Lymph % (Auto) 20.1 L (20.5-60.0) % [place] % (Auto) 8.3 (1.7-12.0) % Eos % (Auto) 0.4 L (0.9-7.0) % Baso % (Auto) 0.7 (0.2-2.0) % Neut # (Auto) 5.3 (1.4-6.5) 10^3/uL Lymph # (Auto) 1.5 (1.2-3.8) 10^3/uL [place] # (Auto) 0.6 (0.3-0.8) 10^3/uL Eos # (Auto) 0.0 (0.0-0.7) 10^3/uL Baso # (Auto) 0.1 (0.0-0.1) 10^3/uL Abs Immat Gran (auto) 0.03 (0.00-0.03) 10^3/uL Imm/Tot Granulo (auto) 0.4 (0.0-0.5) % Sodium 141 (136-145) mmol/L Potassium 3.4 L (3.5-5.1) mmol/L Chloride 103 (98-107) mmol/L Carbon Dioxide 26.2 (21.0-32.0) mmol/L Anion Gap 15.2 BUN 11.0 (7.0-18.0) mg/dL Creatinine 0.74 (0.55-1.02) mg/dL Est GFR ( Amer) >60 (>=60 mL/min/1.73m^2) Est GFR (Non-Af Amer) >60 (>=60 mL/min/1.73m^2) BUN/Creatinine Ratio 14.9 Glucose 96 (74-106) mg/dL Calcium 9.5 (8.5-10.1) mg/dL Total Bilirubin 0.5 (0.2-1.0) mg/dL AST 14 L (15-37) U/L ALT 20 (14-59) U/L Alkaline Phosphatase 94 (46-116) U/L Total Protein 8.7 H (6.4-8.2) g/dL Albumin 4.8 (3.4-5.0) g/dL Globulin 3.9 g/dL Albumin/Globulin Ratio 1.2 Lipase 38.0 (16.0-77.0) U/L Serum HCG, Qual Negative (NEGATIVE) Discharge Plan Discharge Chief Complaint: Abdominal Pain Clinical Impression: Chronic diarrhea Patient Disposition: Home, Self-Care Time of Disposition Decision: 20:52 Condition: Good Mode of Transportation: Private Vehicle Prescriptions / Home Meds: No Action hydromorphone 2 mg tablet 2 mg PO Q8H PRN (Reason: pain) loperamide [Anti-Diarrheal (loperamide)] 2 mg tablet 2 mg PO Q4H PRN (Reason: loose stool) ciprofloxacin HCl 500 mg tablet 500 mg PO Q12H Patient Comments: 11/14/24-11/20/24 pantoprazole 40 mg tablet,delayed release (DR/EC) 40 mg PO DAILY ondansetron 4 mg tablet,disintegrating 4 mg PO Q8H PRN (Reason: nausea and vomiting) dicyclomine 10 mg capsule 20 mg PO .4 times a day PRN (Reason: abdominal pain) Ubrelvy 100 mg tablet 100 mg PO .once a day PRN (Reason: migraine headache) zolpidem 10 mg tablet 10 mg PO .QHS PRN (Reason: sleep) venlafaxine 225 mg tablet extended release 24hr 225 mg PO DAILY oxycodone 10 mg tablet 10 mg PO Q8H PRN (Reason: pain) Emgality Syringe 120 mg/mL syringe 120 mg SUBCUT Q30D bupropion HCl 100 mg tablet 100 mg PO BID polyethylene glycol 3350 17 gram Powder In Packet 17 g PO QD Qty: 30 0RF Print Language: Greenlandic Instructions: Chronic Diarrhea (ED) Referrals: STEFANY SAM [Primary Care Provider, Unknown] - 1 week Discharge Date/Time: 01/13/25 22:10
== END 2025-01-13 22:10 | disposition home or self-care (01) ==
PROVIDERS: Emergency Provider Student in an Organized Health Care Education/Training Program; PCP Family Medicine
DX: K52.9 Noninfective gastroenteritis and colitis, unspecified (principal); C81.9A Hodgkin lymphoma, unspecified, in remission; R10.9 Unspecified abdominal pain; Z63.4 Disappearance and death of family member
CPT/HCPCS: 36415; 80053; 83690; 84703; 85025; 96361; 96374; 99284; 99285; J2405